=== PATIENT | male | born 1975 | race Caucasian/White ===

== ENCOUNTER 2025-03-11 12:21 | Emergency (ER) | payer MEDICARE, MEDICAID, SELFPAY ==
[2025-03-11 12:24] VITALS: BP 107/69; PULSE 98; RESP 18; TEMP 37.2; O2SAT 98
[2025-03-11 12:46] VITALS: PULSE 85; RESP 20; O2SAT 95
[2025-03-11 12:54] VITALS: BMI 28.8
--- NOTE | 2025-03-11 13:34 | XR_ITS ---
Examination: AP chest single view Technique one AP portable upright chest single view Exam date and time: March 11, 2025 1358 hours INDICATIONS: Coughing chest pain shortness of breath beginning 2 days ago. FINDINGS: Interval pneumonia right base compared with June 04, 2022 Mild prominence left ventricle Mild vascular congestion IMPRESSION: Significant right base pneumonia
--- NOTE | 2025-03-11 13:34 | EKG_ITS ---
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
--- NOTE | 2025-03-11 13:35 | PD.EDCHEST ---
ED Chest Pain RME/HPI General Chief Complaint: Chest Pain Stated Complaint: CHEST PAIN Time Seen by Provider: 03/11/25 13:20 Arrival date/time: 03/11/25 12:21 RME / HPI RME / HPI narrative: 49-year-old male patient with significant history of hypertension diabetes mellitus and end-stage renal disease came in for evaluation regarding substernal chest pain onset of symptoms since last night substernal chest pain, described as dull ache, severity moderate. Patient denies any cough denies any shortness of breath denies any vomiting denies any other complaints. Patient had dialysis today Related Data Home Medications ?Medication ?Instructions ?Recorded ?Confirmed insulin aspart U-100 100 unit/mL 12 unit subcut BID 01/10/23 06/26/23 (3 mL) subcutaneous pen (Novolog FlexPen U-100 Insulin aspart) cyclobenzaprine 10 mg tablet 10 mg PO HS 06/19/23 06/26/23 loperamide 2 mg capsule 2 mg PO Q6H PRN Diarrhea 06/19/23 06/26/23 ibuprofen 800 mg tablet 800 mg PO Q8H PRN Pain 06/26/23 06/26/23 Previous Rx's ?Medication ?Instructions ?Recorded apixaban 5 mg tablet (Eliquis) 5 mg PO BID #60 tabs 07/03/23 hydrocodone 5 mg-acetaminophen 325 1 tab PO Q6H PRN pain #14 tabs 07/03/23 mg tablet albuterol sulfate 90 mcg/actuation 2 inh inhalation Q8H PRN shortness 03/11/25 aerosol inhaler of breath or wheezing #8.5 grams amoxicillin 875 mg-potassium 1 tab PO BID #14 tabs 03/11/25 clavulanate 125 mg tablet azithromycin 250 mg tablet 250 mg PO QDAY 4 days #4 tabs 03/11/25 (Zithromax) Allergies Allergy/AdvReac Type Severity Reaction Status Date / Time No Known Allergies Allergy Verified 06/27/23 12:19 Review of Systems Review of Systems Narrative Review of Systems: Review of system reviewed and within normal limits except mentioned in HPI ED Exam Narrative Physical exam: VITAL SIGNS: Reviewed. GENERAL APPEARANCE: Alert and interactive, follows commands, no acute distress, HEAD AND FACE: Non-traumatic. ENT: PERRL, pink conjunctivitis, eyelid no trauma, Mucous membrane moist. NECK: Supple, nontender, no nuchal rigidity. CHEST: No tenderness, no crepitus, no paradoxical movement, no retractions. LUNGS: Clear, well ventilated, symmetric, no rales, no wheezing, no ronchi, no stridor, good breath sounds bilaterally. HEART: Regular rate, regular rhythm, no murmur, no gallops. ABDOMEN: Soft, positive bowel sounds, nondistended, no guarding, nontender, no rebound, no masses, RECTAL: Deferred. GENITAL: Deferred. NEUROLOGICAL: Gross motor function intact sensory function intact, Appropriate for age. MUSCULOSKELETAL: low back nontender, full range of motion. EXTREMITIES: Nontender, full range of motion. SKIN: Color pink, dry, no rash, no lacerations, no abrasions, no contusions. LYMPHATICS: Deferred. Course Quality Measures none Orders Category Date Time Status EKG (ED ONLY) *Do not use* NOW Care 03/11/25 13:35 Completed EKG (ED Only) Stat Exams 03/11/25 13:34 Draft XR chest 1V Stat Exams 03/11/25 13:34 Completed B-Type Natriuretic Peptide Stat Lab 03/11/25 13:43 Completed CBC Stat Lab 03/11/25 13:43 Completed Comprehensive Metabolic Panel Stat Lab 03/11/25 13:43 Completed Partial Thromboplastin Time Stat Lab 03/11/25 13:43 Completed Prothrombin Time with INR Stat Lab 03/11/25 13:43 Completed Troponin I Stat Lab 03/11/25 13:43 Completed Troponin I Stat Lab 03/11/25 16:13 Completed Azithromycin Inj [Zithromax Inj] 500 mg Med 03/11/25 16:17 Discontinued Sodium Chloride 0.9% 250 ml [Ns] 250 ml IV X1 HYDROcodone/APAP 10/325 [[place] 10/325] Med 03/11/25 13:34 Discontinued 1 tab PO X1 ONE cefTRIAXone/D5w 1gm IV premix [Rocephin/D5w 1gm IV Med 03/11/25 16:17 Discontinued premix] 1 gm in 50 ml IV X1 mg Hyd/Al Hyd/Man Susp [Maalox Susp] Med 03/11/25 13:34 Discontinued 30 ml PO X1 ONE Vital Signs Vital signs: Vital Signs Temperature 99.0 F 03/11/25 12:24 Pulse Rate 98 03/11/25 12:24 Respiratory Rate 18 03/11/25 12:24 Blood Pressure 107/69 03/11/25 12:24 Pulse Oximetry (%) 98 03/11/25 12:24 Oxygen Delivery Method Room Air 03/11/25 12:24 Chest Pain MDM Narrative MDM Narrative:: 49-year-old male patient with significant history of hypertension diabetes mellitus and end-stage renal disease came in for evaluation regarding substernal chest pain onset of symptoms since last night substernal chest pain, described as dull ache, severity moderate. Patient denies any cough denies any shortness of breath denies any vomiting denies any other complaints. Patient had dialysis today Patient's workup is significant for pneumonia on x-ray. Initial troponin was noted to be 0.27, after 3 hours repeat troponin went up to 0.29. Patient is not having any chest pain prior to discharge. EKG showed normal sinus rhythm, ventricular rate of 91 bpm, no ST segment elevation or depression noted Was given ceftriaxone IV and Zithromax IV. Patient appears nontoxic and hemodynamically stable. Patient discharged home and instructed to follow-up with primary care provider in 24 to 48 hours. Instructed to return to the emergency department immediately if worsening of symptoms Patient data External records reviewed:: None Clinical information provided by:: patient and family Social determinants that could affect healthcare access:: none Patient has the following chronic illnesses:: ESRD, hypertension, diabetes mellitus How is presenting disease/condition affected by chronic disease/condition?: exacerbated by Evaluation data The following diagnostics were reviewed and interpreted by me:: lab results, radiology exam(s) and EKG tracing(s) Lab and/or radiology exams considered but not ordered:: None Interpretation Summary: EKG showed sinus rhythm, ventricular rate of 91 bpm, no ST segment elevation or depression noted. Medications / Prescriptions Medications or Prescriptions considered but not ordered:: None Medication administrations:: Medication Administration History Discontinued Medications Hydrocodone Bitart/Acetaminophen (Hydrocodone/Apap 10/325 Tab) 1 tab PO X1 ONE Stop: 03/11/25 13:35 Last Admin: 03/11/25 13:39 Dose: 1 tab Documented By: NUPUR Al Hydrox/Mg Hydrox/Simethicone (Mg Hyd/Al Hyd/Man (Maalox Reg) Susp 30 Ml Udc) 30 ml PO X1 ONE Stop: 03/11/25 13:35 Last Admin: 03/11/25 13:39 Dose: 30 ml Documented By: NUPUR Azithromycin 500 mg/ Sodium (Chloride) 250 mls @ 250 mls/hr IV X1 ONE Stop: 03/11/25 17:16 Last Admin: 03/11/25 16:40 Dose: 250 mls/hr Documented By: NUPUR Ceftriaxone Sodium/Dextrose (Rocephin/D5w 1gm Iv Premix) 1 gm in 50 mls @ 100 mls/hr IV X1 ONE Stop: 03/11/25 16:46 Last Infusion: 03/11/25 17:28 Dose: Infused Documented By: Admin: 03/11/25 16:40 Dose: 100 mls/hr Documented By: Nate Stock Zithromax IV ceftriaxone IV Consultations Consultation(s) initiated? (list below): No Diagnosis Chest Pain Differential Diagnosis: pneumothorax and chest pain Most likely diagnosis given after review of the tests above:: Pneumonia, ESRD Admission Indicated Admission indicated?: not indicated Admission Request Was there a request for admission?: No Disposition Plan Disposition Plan: Discharge Discharge Attestation Discharge Attestation: The patient and all family members were given an opportunity to ask questions and understood the discharge instructions. Discharge instructions specifically effects, indications for sooner follow up or return to the emergency department, and the expected course of current diagnosis. Patient condition: Stable Discharge Plan Plan Patient Disposition: HOME (Self Care) Disposition Comment: Stable Prescriptions/Referrals Prescriptions/Med Rec: New amoxicillin-pot clavulanate 875-125 mg tablet 1 tab PO BID Qty: 14 0RF azithromycin [Zithromax] 250 mg tablet 250 mg PO QDAY 4 Days Qty: 4 0RF Rx Instructions: start on day 2 of therapy albuterol sulfate 90 mcg/actuation HFA aerosol inhaler 2 inh inhalation Q8H PRN (Reason: shortness of breath or wheezing) Qty: 8.5 0RF No Action insulin aspart U-100 [Novolog FlexPen U-100 Insulin] 100 unit/mL (3 mL) insulin pen 12 unit subcut BID cyclobenzaprine 10 mg tablet 10 mg PO HS loperamide 2 mg capsule 2 mg PO Q6H PRN (Reason: Diarrhea) Eliquis 5 mg tablet 5 mg PO BID Qty: 60 0RF Rx Instructions: Begin this prescription after completing the 10 mg prescription. hydrocodone-acetaminophen 5-325 mg tablet 1 tab PO Q6H MDD 4 PRN (Reason: pain) Qty: 14 0RF ibuprofen 800 mg Tablet 800 mg PO Q8H PRN (Reason: Pain) Referrals: Margarita Carolina PA-C [Primary Care Provider] - In 1 week Problem List Clinical Impression: End-stage renal disease (ESRD), Pneumonia Patient/Caregiver Discharge Instructions Discharge Activity: activity as tolerated Education Materials: Treating Pneumonia Additional Instructions: Thank you for the opportunity for serving you today. You are stable for discharged . You are advised to: Follow-up with your PCP in 1 to 2 days Return to ED for worsening of symptoms Take medication as prescribed Print Language: Turkmen Stand Alone Forms: Jenny Award Info., Patient Portal Info Letter
[2025-03-11] MEDS: MG HYD/AL HYD/SIME (Maalox Reg) SUSP 30 ML UDC PO (13:39)
[2025-03-11] MEDS: HYDROcodone/APAP 10/325 TAB PO (13:39)
[2025-03-11 14:12] LABS: Basophils % (Auto) 0 % (0-2.5); Eosinophils % (Auto) 0 % (0-10); Hematocrit 31.3 % (41.0-53.0); Hemoglobin 10.1 g/dL (13.5-16.0); Immature Granulocytes % (Auto) 2 % (0-0); Lymphocytes # (Auto) 0.3 Thou/mm3 (1.0-4.8); Lymphocytes % (Auto) 2 % (10-50); Mean Corpuscular HGB Conc 32.3 g/dl (31.0-37.0); Mean Corpuscular Hemoglobin 30.6 pg (25.0-35.0); Mean Corpuscular Volume 95 fL (80-100); Monocytes # (Auto) 0.7 Thou/mm3 (0.0-0.8); Monocytes % (Auto) 6 % (0-12); Neutrophils # (Auto) 10.9 Thou/mm3 (1.8-7.7); Neutrophils % (Auto) 90 % (37-80); Nucleated Red Blood Cell % 0 /100 WBC (0); Platelet Count 102 Thou/mm3 (140-440); RDW Standard Deviation 52.5 fL (35.1-43.9); White Blood Count 12.1 Thou/mm3 (3.8-10.6)
[2025-03-11 14:25] LABS: INR 1.3 (0.9-1.3); Partial Thromboplastin Time 36.6 Seconds (22.0-36.0); Prothrombin Time 13.5 Seconds (9.0-12.2)
[2025-03-11 14:34] LABS: Alanine Aminotransferase 12 U/L (10-49); Albumin, Serum 3.8 gm/dL (3.5-5.0); Albumin/Globulin Ratio 1.6 (1.2-2.2); Alkaline Phosphatase 124 U/L (46-116); Anion Gap 10 (7-16); Aspartate Amino Transferase 15 U/L (0-34); B-Type Natriuretic Peptide 926 pg/mL (0-100); BUN/Creatinine Ratio 7 Ratio (12-20); Bilirubin,Total 1.3 mg/dL (0.3-1.2); Blood Urea Nitrogen 40 mg/dL (9-23); Calcium 9.2 mg/dL (8.3-10.6); Calcium (Corrected) 9.4 mg/dL (8.5-10.1); Carbon Dioxide 25.8 mMol/L (20.0-31.0); Chloride 97 mMol/L (98-107); Creatinine (Component) 5.7 mg/dL (0.6-1.3); Estimated Creatinine Clearance 16.9 mL/min (>60); Globulin 2.4 gm/dL (2.3-3.5); Glucose 95 mg/dL (74-106); Osmolality,Calculated 276 (275-295); Potassium 4.1 mMol/L (3.4-5.1); Sodium 133 mMol/L (136-145); Total Protein 6.2 gm/dL (5.7-8.2); eGFR 11 See Note
[2025-03-11 14:38] LABS: Troponin I 0.278 ng/mL (0.0-0.045)
[2025-03-11 16:05] VITALS: BP 134/80; PULSE 85; RESP 15; TEMP 36.7; O2SAT 97
[2025-03-11] MEDS: cefTRIAXone/D5w 1gm IV premix 1 GM/50 ML BAG IV (16:40)
[2025-03-11] MEDS: AZITHROMYCIN INJ 500 MG in SODIUM CHLORIDE 0.9% 250 ML 250 ML 250 MG IV (16:40)
== END 2025-03-11 18:04 | disposition home or self-care (01) ==
PROVIDERS: Nurse Practitioner Family; Emergency Provider Emergency Medicine; PCP Physician Assistant
DX: J18.9 Pneumonia, unspecified organism (principal); I12.0 Hypertensive chronic kidney disease with stage 5 chronic kidney disease or end stage renal disease; E11.22 Type 2 diabetes mellitus with diabetic chronic kidney disease; N18.6 End stage renal disease; I49.1 Atrial premature depolarization; I45.89 Other specified conduction disorders; Z79.4 Long term (current) use of insulin
CPT/HCPCS: 36415; 71045; 80053; 83880; 84484; 85025; 85610; 85730; 93005; 99284; J0456; J0696; J7050; A9270

== ENCOUNTER 2025-03-14 14:09 | Inpatient (IN) | payer MEDICARE, MEDICAID, SELFPAY ==
[2025-03-14] VITALS (68 sets, daily range): BP systolic 0–200; BP diastolic 0–99; PULSE 66–188; RESP 16–34; TEMP 34.8–36.1; O2SAT 77–100; BMI 35.5
[2025-03-14] MEDS: DEXTROSE 50%-WATER INJ 50 ML SYRINGE IV ×5 (14:22→16:17)
[2025-03-14] MEDS: MIDAZOLAM INJ 1 MG/ML VIAL 2 ML 2 MG IV (14:24)
[2025-03-14] MEDS: MORPHINE SULF INJ 10 MG/ML VIAL 4 MG IVP (14:24)
[2025-03-14] MEDS: ONDANSETRON INJ 2 MG/ML INJ 2 ML 4 MG IV (14:26)
--- NOTE | 2025-03-14 14:27 | PC.NURSE ---
SVT 198HR ON [employer], PT WAS CARDIOVERTED @100J, IN WHICH HER CONVERTED TO 80HR AND THEN CONVERTED BACK TO 163, DR. HOLDEN AT BEDSIDE, NEW ORDERS GIVEN
[2025-03-14] MEDS: Sodium Bicarb Inj 8.4% SYR 50 ML SYRINGE IV (14:34)
--- NOTE | 2025-03-14 14:34 | PD.EDAMS ---
Altered Mental Status RME/HPI General Chief Complaint: Altered Mental Status Stated Complaint: STAT Time Seen by Provider: 03/14/25 14:56 Arrival date/time: 03/14/25 14:09 Limitations: altered mental status RME / HPI RME / HPI narrative: DR. HOLDEN MAIN ED EVALUATION: 49 year old male with past medical history significant for end-stage renal disease, hypertension, and diabetes mellitus presents to the Emergency Department [facility] from home with complaint of altered mental status, as a STAT patient. Patient was seen immediately at arrival at 1408 hours. Per EMS, patient was cyanotic at scene and in respiratory distress, with a blood pressure of 90/68. Per EMS, patient was in SVT and after they shocked the patient, patient converted sinus 70 on the monitor. Here at 1415 hours, blood glucose was low then after D50 at 1430 hours the blood glucose was 23. Per EMS, patient was seen by EMS yesterday and was in the same SVT rhythm but refused transport to the hospital; probably in SVT since yesterday at least. Related Data Home Medications ?Medication ?Instructions ?Recorded ?Confirmed insulin aspart U-100 100 unit/mL 12 unit subcut BID 01/10/23 06/26/23 (3 mL) subcutaneous pen (Novolog FlexPen U-100 Insulin aspart) cyclobenzaprine 10 mg tablet 10 mg PO HS 06/19/23 06/26/23 loperamide 2 mg capsule 2 mg PO Q6H PRN Diarrhea 06/19/23 06/26/23 ibuprofen 800 mg tablet 800 mg PO Q8H PRN Pain 06/26/23 06/26/23 Previous Rx's ?Medication ?Instructions ?Recorded apixaban 5 mg tablet (Eliquis) 5 mg PO BID #60 tabs 07/03/23 hydrocodone 5 mg-acetaminophen 325 1 tab PO Q6H PRN pain #14 tabs 07/03/23 mg tablet albuterol sulfate 90 mcg/actuation 2 inh inhalation Q8H PRN shortness 03/11/25 aerosol inhaler of breath or wheezing #8.5 grams amoxicillin 875 mg-potassium 1 tab PO BID #14 tabs 03/11/25 clavulanate 125 mg tablet azithromycin 250 mg tablet 250 mg PO QDAY 4 days #4 tabs 03/11/25 (Zithromax) Allergies Allergy/AdvReac Type Severity Reaction Status Date / Time No Known Allergies Allergy Verified 06/27/23 12:19 Review of Systems Review of Systems ROS Unobtainable: unobtainable due to mental status and unobtainable due to medical condition Past Medical History Past Medical History CARDIAC: Positive Hypertension GASTROINTESTINAL: Positive Gastrointestinal Disorders and Obesity GENITOURINARY: Positive Renal Disease and Dialysis (MF) MUSCULOSKELETAL: Positive Musculoskeletal Disorders and Degenerative Disk Disease ENDOCRINE: Positive Endocrine Disorders and Diabetes Mellitus Type 2 PSYCHO/SOCIAL: Positive Recreational Drug Use (MJ) OTHER HISTORY: Positive Hospitalization (amputation R BKA), Blood Transfusions and Chicken Pox Family History FAMILY HISTORY: Positive Family Cancer Surgical History SURGICAL: Positive Amputation (R BKA) Social History SMOKING STATUS: Never smoker SECOND HAND EXPOSURE: No SUBSTANCE USE: marijuana ALCOHOL: Never ED Exam General Limitations: Present altered mental status General appearance: Present other (obtunded) Head Head exam: Present atraumatic and normocephalic Eye Eye exam: Present normal appearance, PERRL and EOMI ENT ENT exam: Present normal exam, normal oropharynx and mucous membranes moist Neck Neck exam: Present normal inspection and trachea midline Chest Chest inspection: Present normal inspection and symmetric chest wall rise Respiratory Respiratory exam: Present normal lung sounds bilaterally Cardiovascular Cardiovascular exam: Present other (Tachycardic, irregularly irregular, no S3.) Abdominal Exam Abdominal exam: Present soft, normal bowel sounds and other (obese abdomen) Extremities Exam Extremities exam: Present other (Right BKA) Back Exam Back exam: Present normal inspection Neurological Exam Neurological exam: Present other (obtunded) Skin Skin exam: Present warm, dry, intact and normal color Course Quality Measures none Orders Category Date Time Status 24 HR Medical Restraints Q2HR Care 03/14/25 16:22 Active EKG (ED ONLY) *Do not use* NOW Care 03/14/25 14:20 Completed Garcia [Urinary Catheter] X1 Care 03/14/25 14:42 Active Insert IV NOW Care 03/14/25 14:20 Active Insert NG / OG tube NOW Care 03/14/25 15:35 Active Intubation NOW Care 03/14/25 15:43 Completed EKG (ED Only) Stat Exams 03/14/25 14:20 Ordered XR chest 1V post procedure Stat Exams 03/14/25 15:34 Completed A1C [Glycohemoglobin w (eAG)] Stat Lab 03/14/25 14:32 Completed ABG [Arterial Blood Gas] Stat Lab 03/14/25 14:44 Completed Arterial Blood Gas Stat Lab 03/14/25 16:44 Completed Blood Culture (Lab) Stat Lab 03/14/25 15:14 Received CBC [CBC] Stat Lab 03/14/25 14:32 Completed CMP [Comprehensive Metabolic Panel] Stat Lab 03/14/25 14:15 Results Drug Screen,Urine Stat Lab 03/14/25 16:12 Received Lactate (Lactic Acid) Stat Lab 03/14/25 16:34 Results Magnesium Stat Lab 03/14/25 14:15 Results Procalcitonin Stat Lab 03/14/25 16:34 Received Sputum Culture and Gram Stain Stat Lab 03/14/25 15:43 Ordered Troponin I Stat Lab 03/14/25 14:15 Results Type and Screen Stat Lab 03/14/25 14:32 Received Urinalysis Stat Lab 03/14/25 16:12 Received Urine Culture Stat Lab 03/14/25 16:12 Received ALBUTEROL RT 0.5ml [Proventil Rt 0.5ml] Med 03/14/25 18:00 Active 2.5 mg INH 5 TIMES DAILY ALBUTEROL RT 3ml [Proventil Rt 3ml] Med 03/14/25 18:00 Discontinued 2.5 mg INH 5 TIMES DAILY Azithromycin Inj [Zithromax Inj] 500 mg Med 03/14/25 16:09 Active Sodium Chloride 0.9% 250 ml [Ns] 250 ml IV X1 DILTIAZEM in D5W 125 MG Med 03/14/25 14:28 Active 125 mg in 125 ml IV 5 mg/hr Dextrose 10%-Water 1000 ml [D10w 1000 ml] 250 ml Med 03/14/25 14:55 Discontinued IV Q15M Dextrose 10%-Water [D10w] 500 ml Med 03/14/25 15:00 Active IV 150 mls/hr Dextrose 50% Syr [D50w Syringe Abboject] Med 03/14/25 15:22 Discontinued 100 ml IV X1 ONE Dextrose 50% Syr [D50w Syringe Abboject] Med 03/14/25 14:19 Discontinued 50 ml IV .STK-MED ONE Dextrose 50% Syr [D50w Syringe Abboject] Med 03/14/25 14:18 Discontinued 50 ml IV X1 ONE Dextrose 50% Syr [D50w Syringe Abboject] Med 03/14/25 14:19 Discontinued 50 ml IV X1 ONE Dextrose 50% Syr [D50w Syringe Abboject] Med 03/14/25 14:29 Discontinued 50 ml IV X1 ONE Dextrose 50% Syr [D50w Syringe Abboject] Med 03/14/25 14:52 Discontinued 50 ml IV X1 ONE Dextrose 50% Syr [D50w Syringe Abboject] Med 03/14/25 16:16 Discontinued 50 ml IV X1 ONE Diltiazem Inj [Cardizem Inj] Med 03/14/25 14:27 Discontinued 20 mg IV X1 ONE Etomidate Inj [Amidate Inj] Med 03/14/25 15:23 Discontinued 20 mg .ROUTE .STK-MED ONE Etomidate Inj [Amidate Inj] Med 03/14/25 15:20 Discontinued 20 mg IVP X1 ONE Midazolam Inj [Versed Inj] Med 03/14/25 14:16 Discontinued 2 mg IV X1 ONE Morphine Inj Med 03/14/25 14:16 Discontinued 4 mg IVP X1 ONE Ondansetron Inj [Zofran Inj] Med 03/14/25 14:16 Discontinued 4 mg IV X1 ONE Rocuronium Inj [Zemuron Inj] Med 03/14/25 15:23 Discontinued 100 mg .ROUTE .STK-MED ONE Rocuronium Inj [Zemuron Inj] Med 03/14/25 15:20 Discontinued 60 mg IVP X1 ONE Sodium Bicarb 8.4% SYR Med 03/14/25 14:20 Discontinued 50 ml IV X1 ONE cefTRIAXone [Rocephin] 2 gm Med 03/14/25 16:08 Discontinued SODIUM CHLORIDE 0.9% (Popper) [Ns 0.9% (P)] 50 ml IV X1 Volume Ventilator Stat RT 03/14/25 15:43 Active Reevaluation(s) Reevaluation #1: Discussed about patient being DNR, she is unsure about his wishes. More family is going to come and for now she agreed to intubate. Time: 15:29 Vital Signs Vital signs: Vital Signs Pulse Rate 160 H 03/14/25 14:31 Respiratory Rate 16 03/14/25 14:31 Blood Pressure 66/33 L 03/14/25 14:31 Pulse Oximetry (%) 95 03/14/25 14:31 Oxygen Delivery Method Oxy Mask 03/14/25 14:31 Oxygen Flow Rate 15 03/14/25 14:31 Procedures -ED Procedure Comment Patient was shocked here at 120 V at 1426 hours and converted with a rate of 80 but it only lasted a few seconds and then went back to the rate in the 160's. Intubation Time out performed: Yes sedative: Etomidate Mg Given: 20 paralytic: Rocuronium Mg Given: 60 Laryngoscope: fiber optic video scope Assist Device Used: fiber optic device ET Tube Size: 7.5 Tube Secured Depth (cm): 24 Tube Secured Location: lips Tube Placement Confirmation: visualized tube passing through cords, equal breath sounds bilaterally, no breath sounds over epigastrium and confirmation by capnometry Patient Tolerated Procedure: well and no complications Intubation Complications: none Additional Comments: CXR ordered Altered Mental Status MDM Narrative MDM Narrative:: I, Kimberly Lira am scribing for and in the presence of Dr. Holden. Patient data External records reviewed:: EMS form Clinical information provided by:: EMS Social determinants that could affect healthcare access:: none Patient has the following chronic illnesses:: End-stage renal disease, hypertension, and diabetes mellitus. How is presenting disease/condition affected by chronic disease/condition?: exacerbated by Evaluation data The following diagnostics were reviewed and interpreted by me:: lab results, radiology exam(s) and EKG tracing(s) Lab and/or radiology exams considered but not ordered:: none Interpretation Summary: EKG#1: EKG at 1414 hours. Interpreted by me: sinus tachycardia, rate 194, uncertain rhythm SVT vs atrial fibrillation, possible RVH EKG#2: EKG at 1431 hours. Interpreted by me: atrial fibrillation with RVR, rate 171, intraventricular conduction delay EKG#3: EKG at 1436 hours, after Diltiazem. Interpreted by me: sinus rhythm, rate 97, right bundle branch block, moderate T wave abnormality consider inferior and lateral ischemia, CA interval 192 ms, QRS 126 ms, QT/QTc 383/438, P-R-T axis -63, 97, and 224 RADIOLOGY Procedure(s): XR chest 1V post procedure Accession Number(s): [id number] cc: Margarita Carolina; yKle Holden MD; Uli Chen MD~ Examination: AP chest single view Technique: AP portable upright chest single view Exam date and time: March 14, 2025 1537 hrs. Comparison March 11, 2020 Indications: Hypoxic respiratory failure today, postintubation Findings: Moderate enlargement cardiac contour Tracheal tube tip 4.8 cm above marco. The orogastric tube is in the stomach, the tip below the level film Suspicious for atelectasis and/or pneumonia at the right lung base Prominent vascular congestion Impression: Tracheal tube tip 4.8 cm above marco Suspicious for atelectasis and/or pneumonia at the right lung base Dictated By: Uli Chen MD Medications / Prescriptions Medications or Prescriptions considered but not ordered:: none Medication administrations:: Medication Administration History Albuterol (Albuterol Rt 2.5 Mg/0.5 Ml Nebu) 2.5 mg INH 5 TIMES DAILY [place] Stop: 04/13/25 17:59 Diltiazem HCl (Diltiazem In D5w 125 Mg) 125 mg in 125 mls @ 5 mls/hr IV .Q24H [place]; Protocol Stop: 04/13/25 14:27 Last Admin: 03/14/25 14:43 Dose: 5 mg/hr, 5 mls/hr Documented By: VALENTÍN Dextrose (D10w) 500 mls @ 150 mls/hr IV .Q3H20M [place] Stop: 04/13/25 14:59 Last Infusion: 03/14/25 16:00 Dose: 200 mls/hr Documented By: OFELIA Co-signed By: JONATHAN Admin: 03/14/25 15:00 Dose: 150 mls/hr Documented By: VALENTÍN Co-signed By: OFELIA Azithromycin 500 mg/ Sodium (Chloride) 250 mls @ 250 mls/hr IV X1 ONE Stop: 03/14/25 17:08 Last Admin: 03/14/25 16:50 Dose: 250 mls/hr Documented By: OFELIA Discontinued Medications Albuterol (Albuterol Rt 2.5 Mg/3 Ml Nebu) 2.5 mg INH 5 TIMES DAILY [place] Stop: 04/13/25 17:59 Dextrose (Dextrose 50%-Water Inj 50 Ml Syringe) 50 ml IV X1 ONE Stop: 03/14/25 14:19 Last Admin: 03/14/25 14:22 Dose: 50 ml Documented By: VALENTÍN Dextrose (Dextrose 50%-Water Inj 50 Ml Syringe) 50 ml IV X1 ONE Stop: 03/14/25 14:20 Last Admin: 03/14/25 14:22 Dose: 50 ml Documented By: VALENTÍN Dextrose (Dextrose 50%-Water Inj 50 Ml Syringe) Confirm Administered Dose 50 ml IV .STK-MED ONE Stop: 03/14/25 14:20 Last Admin: 03/14/25 14:25 Dose: Not Given Documented By: VALENTÍN Non-Admin Reason: Duplicate Medication on eMAR Dextrose (Dextrose 50%-Water Inj 50 Ml Syringe) 50 ml IV X1 ONE Stop: 03/14/25 14:30 Last Admin: 03/14/25 14:32 Dose: 50 ml Documented By: VALENTÍN Dextrose (Dextrose 50%-Water Inj 50 Ml Syringe) 50 ml IV X1 ONE Stop: 03/14/25 14:53 Last Admin: 03/14/25 14:54 Dose: 50 ml Documented By: VALENTÍN Dextrose (Dextrose 50%-Water Inj 50 Ml Syringe) 100 ml IV X1 ONE Stop: 03/14/25 15:23 Last Admin: 03/14/25 15:26 Dose: 100 ml Documented By: VALENTÍN Dextrose (Dextrose 50%-Water Inj 50 Ml Syringe) 50 ml IV X1 ONE Stop: 03/14/25 16:17 Last Admin: 03/14/25 16:17 Dose: 50 ml Documented By: OFELIA Diltiazem HCl (Diltiazem Inj 5 Mg/Ml Vial 5 Ml) 20 mg IV X1 ONE Stop: 03/14/25 14:28 Last Admin: 03/14/25 14:35 Dose: 20 mg Documented By: VALENTÍN Etomidate (Etomidate Inj 2 Mg/Ml Vial 10 Ml) 20 mg IVP X1 ONE Stop: 03/14/25 15:21 Last Admin: 03/14/25 15:30 Dose: 20 mg Documented By: OFELIA Etomidate (Etomidate Inj 2 Mg/Ml Vial 10 Ml) Confirm Administered Dose 20 mg .ROUTE .STK-MED ONE Stop: 03/14/25 15:24 Last Admin: 03/14/25 15:33 Dose: Not Given Documented By: OFELIA Non-Admin Reason: Duplicate Medication on eMAR Dextrose (D10w 1000 Ml) 250 mls @ 150 mls/hr IV Q15M PRN PRN Reason: HYPOGLYCEMIA Stop: 04/13/25 14:54 Ceftriaxone Sodium 2 gm/ (Sodium Chloride) 50 mls @ 100 mls/hr IV X1 ONE Stop: 03/14/25 16:37 Last Infusion: 03/14/25 16:49 Dose: Infused Documented By: Admin: 03/14/25 16:19 Dose: 100 mls/hr Documented By: OFELIA Midazolam HCl (Midazolam Inj 1 Mg/Ml Vial 2 Ml) 2 mg IV X1 ONE Stop: 03/14/25 14:17 Last Admin: 03/14/25 14:24 Dose: 2 mg Documented By: VALENTÍN Morphine Sulfate (Morphine Sulf Inj 10 Mg/Ml Vial) 4 mg IVP X1 ONE Stop: 03/14/25 14:17 Last Admin: 03/14/25 14:24 Dose: 4 mg Documented By: VALENTÍN Comments: MED GIVEN FOR SHOCK SVT Ondansetron HCl (Ondansetron Inj 2 Mg/Ml Inj 2 Ml) 4 mg IV X1 ONE; Protocol Stop: 03/14/25 14:17 Last Admin: 03/14/25 14:26 Dose: 4 mg Documented By: VALENTÍN Rocuronium [place] (Rocuronium Inj 10 Mg/Ml Vial 10 Ml) 60 mg IVP X1 ONE Stop: 03/14/25 15:21 Last Admin: 03/14/25 15:32 Dose: 60 mg Documented By: OFELIA Co-signed By: VALENTÍN Rocuronium [place] (Rocuronium Inj 10 Mg/Ml Vial 10 Ml) Confirm Administered Dose 100 mg .ROUTE .STK-MED ONE Stop: 03/14/25 15:24 Last Admin: 03/14/25 15:33 Dose: Not Given Documented By: OFELIA Non-Admin Reason: Duplicate Medication on eMAR Sodium Bicarbonate (Sodium Bicarb Inj 8.4% Syr 50 Ml Syringe) 50 ml IV X1 ONE Stop: 03/14/25 14:21 Last Admin: 03/14/25 14:34 Dose: 50 ml Documented By: VALENTÍN see above Consultations Consultation(s) initiated? (list below): Yes Consultation #1 (Physician, Specialty, Details): Discussed test HPI, PMHx, lab, radiology results and/or management with supervisor roving department Dr. Putnam. Will admit for further evaluation and management. Accepts patient for admission. Time: 16:40 Diagnosis Differential diagnosis altered mental status: altered mental status, hypoglycemia and sepsis Most likely diagnosis given after review of the tests above:: Cardiac dysrhythmia Rapid atrial fibrillation Respiratory failure Sepsis Pneumonia Leukocytosis Profound hypoglycemia CHF Admission Indicated Admission indicated?: indicated Admission Request Was there a request for admission?: Yes Admission Attestation Admission request attestation: Discussed case with [] from Hospitalist service regarding admission. Discussed patients ED course, exam findings, labs, and radiology results. The Hospitalist [agrees,declines] to accept the patient for admission. Disposition Plan Disposition Plan: Admit (ICU) Critical Care Time Critical Care Time Critical Care Time: Yes Total Critical Care Time (min.): 120 Attestation: The high probability of sudden, clinically significant deterioration in the patient?s condition required the highest level of my preparedness to intervene urgently. The services I provided to this patient were to treat and/or prevent clinically significant deterioration. Services included the following: chart data review, reviewing nursing notes and/or old charts, documentation time, insolvency consultant collaboration regarding findings and treatment options, medication orders and management, direct patient care, vital sign assessments and ordering, interpreting and reviewing diagnostic studies and lab tests. Aggregate critical care time includes only time during which I was engaged in work directly related to the patient?s care, as described above, whether at bedside or elsewhere in the Emergency Department. It did not include time spent performing other reported procedures or the services of residents, students, nurses or physician assistants. Discharge Plan Plan Patient Disposition: Admit Acute Care w/in Hospital Disposition Comment: ICU Prescriptions/Referrals Prescriptions/Med Rec: No Action insulin aspart U-100 [Novolog FlexPen U-100 Insulin] 100 unit/mL (3 mL) insulin pen 12 unit subcut BID cyclobenzaprine 10 mg tablet 10 mg PO HS loperamide 2 mg capsule 2 mg PO Q6H PRN (Reason: Diarrhea) Eliquis 5 mg tablet 5 mg PO BID Qty: 60 0RF Rx Instructions: Begin this prescription after completing the 10 mg prescription. hydrocodone-acetaminophen 5-325 mg tablet 1 tab PO Q6H MDD 4 PRN (Reason: pain) Qty: 14 0RF ibuprofen 800 mg Tablet 800 mg PO Q8H PRN (Reason: Pain) amoxicillin-pot clavulanate 875-125 mg tablet 1 tab PO BID Qty: 14 0RF azithromycin [Zithromax] 250 mg tablet 250 mg PO QDAY 4 Days Qty: 4 0RF Rx Instructions: start on day 2 of therapy albuterol sulfate 90 mcg/actuation HFA aerosol inhaler 2 inh inhalation Q8H PRN (Reason: shortness of breath or wheezing) Qty: 8.5 0RF Referrals: Margarita Carolina PA-C [Primary Care Provider] - In 1 week Problem List Clinical Impression: Cardiac dysrhythmia, Pneumonia, Hypoglycemia, Sepsis, Rapid atrial fibrillation, Respiratory failure, Leukocytosis, CHF (congestive heart failure) Patient/Caregiver Discharge Instructions Print Language: Ugandan Stand Alone Forms: Jenny Award Info., Patient Portal Info Letter
[2025-03-14] MEDS: DILTIAZEM INJ 5 MG/ML VIAL 5 ML 20 MG IV (14:35)
[2025-03-14] MEDS: DILTIAZEM in D5W 125 MG 125 MG/125 ML BAG IV (14:43)
[2025-03-14 14:48] LABS: Base Excess -19 (-3-3); HCO3 11 mEq/L (20-26); Inspired Oxygen, FIO2 21 %; O2 Saturation 91 % (91-98); PCO2 43 mmHg (32.0-48.0); PO2 86 mmHg (83-108)
[2025-03-14 14:51] LABS: Allen Test Performed/OK; Puncture Site Left Brachial; pH, Arterial 7.03 (7.35-7.45)
[2025-03-14 14:58] LABS: Basophils % (Auto) 0 % (0-2.5); Eosinophils % (Auto) 23 % (0-10); Hematocrit 40.2 % (41.0-53.0); Hemoglobin 11.9 g/dL (13.5-16.0); Immature Granulocytes % (Auto) 6 % (0-0); Immature Granulocytes Auto 1.85 Thou/mm3 (0.00-0.00); Lymphocytes # (Auto) 0.8 Thou/mm3 (1.0-4.8); Lymphocytes % (Auto) 3 % (10-50); Mean Corpuscular HGB Conc 29.6 g/dl (31.0-37.0); Mean Corpuscular Hemoglobin 30.6 pg (25.0-35.0); Mean Corpuscular Volume 103 fL (80-100); Monocytes # (Auto) 1.4 Thou/mm3 (0.0-0.8); Monocytes % (Auto) 5 % (0-12); Neutrophils # (Auto) 18.9 Thou/mm3 (1.8-7.7); Neutrophils % (Auto) 63 % (37-80); Nucleated Red Blood Cell # 0.03 Thou/mm3 (0.00-0.00); Nucleated Red Blood Cell % 0 /100 WBC (0); Platelet Count 131 Thou/mm3 (140-440); RDW Standard Deviation 59.9 fL (35.1-43.9); Red Blood Count 3.89 Miln/mm3 (4.50-5.90); White Blood Count 29.9 Thou/mm3 (3.8-10.6)
[2025-03-14] MEDS: DEXTROSE 10%-WATER 500 ML 150 ML IV (15:00)
[2025-03-14 15:19] LABS: Glucose Estimated Average 103 mg/dL (80-131); Hemoglobin A1C 5.2 % Hgb (4.8-6.0)
[2025-03-14] MEDS: DEXTROSE 50%-WATER INJ 50 ML SYRINGE 100 ML IV (15:26)
[2025-03-14] MEDS: ETOMIDATE INJ 2 MG/ML VIAL 10 ML 20 MG IVP (15:30)
[2025-03-14] MEDS: ROCURONIUM INJ 10 MG/ML VIAL 10 ML 60 MG IVP (15:32)
--- NOTE | 2025-03-14 15:34 | XR_ITS ---
Examination: AP chest single view Technique: AP portable upright chest single view Exam date and time: March 14, 2025 1537 hrs. Comparison March 11, 2020 Indications: Hypoxic respiratory failure today, postintubation Findings: Moderate enlargement cardiac contour Tracheal tube tip 4.8 cm above marco. The orogastric tube is in the stomach, the tip below the level film Suspicious for atelectasis and/or pneumonia at the right lung base Prominent vascular congestion Impression: Tracheal tube tip 4.8 cm above marco Suspicious for atelectasis and/or pneumonia at the right lung base
[2025-03-14 15:54] LABS: Albumin, Serum 3.5 gm/dL (3.5-5.0); Albumin/Globulin Ratio 1.5 (1.2-2.2); Alkaline Phosphatase 216 U/L (46-116); Anion Gap 31 (7-16); BUN/Creatinine Ratio 11 Ratio (12-20); Bilirubin,Total 1.7 mg/dL (0.3-1.2); Blood Urea Nitrogen 82 mg/dL (9-23); Calcium 9.3 mg/dL (8.3-10.6); Calcium (Corrected) 9.7 mg/dL (8.5-10.1); Chloride 99 mMol/L (98-107); Creatinine (Component) 7.2 mg/dL (0.6-1.3); Estimated Creatinine Clearance 13.4 mL/min (>60); Globulin 2.4 gm/dL (2.3-3.5); Potassium 5.5 mMol/L (3.4-5.1); Sodium 140 mMol/L (136-145); Total Protein 5.9 gm/dL (5.7-8.2); eGFR 9 See Note
[2025-03-14 16:14] LABS: Carbon Dioxide 10.1 mMol/L (20.0-31.0)
[2025-03-14] MEDS: cefTRIAXone 2 GM in SODIUM CHLORIDE 0.9% (Popper) 50 ML IV (16:19)
[2025-03-14 16:43] LABS: Collection Type, Urine Catheter
[2025-03-14 16:49] LABS: Base Excess -17 (-3-3); HCO3 13 mEq/L (20-26); Inspired Oxygen, FIO2 21 %; O2 Saturation 97 % (91-98); PCO2 50 mmHg (32.0-48.0); PO2 128 mmHg (83-108)
[2025-03-14 16:50] LABS: Allen Test Performed/OK; Puncture Site Right Brachial; pH, Arterial 7.04 (7.35-7.45)
[2025-03-14] MEDS: AZITHROMYCIN INJ 500 MG in SODIUM CHLORIDE 0.9% 250 ML 250 ML 250 MG IV (16:50)
[2025-03-14 17:04] LABS: Osmolality,Calculated 299 (275-295)
--- NOTE | 2025-03-14 17:07 | PC.NURSE ---
DR. Bill PERSAUD AT BEDSIDE; PER DR. PERSAUD, PT A GCS OF 3 AT THIS TIME; DON'T START PT ON A SEDATION DRIPS AT THIS TIME IN ORDER TO ASSESS PT'S MENTATION.
[2025-03-14 17:10] LABS: Amphetamine/Methamp Scrn,U Positive (Negative); Barbiturate Screen,Urine Negative (Negative); Benzodiazepines Screen,Urine Negative (Negative); Benzoylecgonine Screen, Ur Negative (Negative); Fentanyl Screen,Urine Negative (Negative); Opiate Screen,Urine Positive (Negative); THC Screen,Urine Positive (Negative)
--- NOTE | 2025-03-14 17:12 | PC.NURSE ---
DR. Bill PERSAUD & DR. WRIGHT FROM ICU TEAM MADE AWARE OF PT'S COFFEE GROUND DARK COLOR GASTRIC CONTENTS THAT'S SUCTIONED FROM PT'S OG TUBE AT THIS TIME.
[2025-03-14 17:13] LABS: Amorphous Crystals,Urine Present (Absent); Bilirubin,Urine Negative (Negative); Blood,Urine 2+ (Negative); Clarity,Urine Turbid (Clear/Hazy); Color,Urine Yellow (Lt Yel-Yel); Glucose, Urine 3+ (Negative); Ketones,Urine Negative (Negative); Leukocyte Esterase,Urine Positive (Negative); Nitrite,Urine Negative (Negative); PH,Urine 6.5 (5.0-7.0); Protein,Urine 3+ (Neg - Trace); RBC,Urine 12 /hpf (0-3); Specific Gravity,Urine 1.026 (1.001-1.035); Squamous Epithelial Cell,Urine 9 /hpf (0-5); Transitional Epi Cells,Urine 7 /hpf (0-5); Urobilinogen,Urine Negative mg/dL (0.0-1.0); WBC,Urine 36 /hpf (0-5)
[2025-03-14 17:21] LABS: Troponin I 1.856 ng/mL (0.0-0.045)
[2025-03-14 17:25] LABS: Band Neutrophils (Manual) 1 % (0-6); Eosinophils (Manual) 1 % (0-4); Lymphocytes (Manual) 3 % (20-44); Monocytes (Manual) 11 % (2-9); Myelocytes (Manual) 1 % (0-0); Neutrophils (Manual) 83 % (50-70)
[2025-03-14 17:34] LABS: Procalcitonin 6.13 ng/ml (0.0-0.49)
--- NOTE | 2025-03-14 18:02 | PD.RESHP ---
Documentation for date of: 03/14/25 HPI History of Present Illness Chief complaint: AMS History of present illness: 49-year-old male with past medical history of DM2, hypertension, ESRD (HD ), HFpEF (EF 55% on 2021), and right BKA due to osteomyelitis was admitted to the ICU on 03/14/2025 after coming to the ED via ambulance due to altered mental status. Given patient's mental status and being intubated most of the history was taken from chart review and from patient's who was at bedside. Patient's stated that he was in the ER around 3 days ago due to some substernal chest pain and shortness of breath, but he was discharged with some antibiotics that he was told he had some pneumonia. She mentioned that yesterday in the evening he again had some shortness of breath and was kind of confused, but he did not want to come into the hospital at this time. Today in the morning she states that he was less responsive and that he was more cyanotic. At this time she decided to call EMS who brought the patient to the ED. As per chart review patient was in SVT when EMS arrived therefore he was shocked once and he converted to sinus rhythm. He was also noticed to be very hypoglycemic when he came into the ED with a blood glucose of around 23 therefore he was given multiple amps of D50. ED physician started patient on diltiazem drip. Of note, patient's states that this week he had to get more sessions of hemodialysis as he had increased a lot in weight. She mentioned that the last hemodialysis was on Saturday. She also mentioned that they are having a no recent changes on his medications and that he had not been using any medication for his diabetes. ED course: Initially came in hypotensive, tachycardic, and hypothermic. Initial labs were relevant for leukocytosis (29.9), anemia (Hgb 11.9), ABG (pH 7.04, pCO2 of 50, PO2 of 128), hyperkalemia (5.5), HAGMA (bicarb 10.1, AG 31), azotemia (BUN 82, creatinine 7.2), lactic acidosis (15), troponinemia (1.856), elevated procalcitonin (6.13), and U-Tox positive for meth and marijuana. Initial imaging included chest x-ray which showed some pneumonia of the right lung base. EKGs were not uploaded to the EMR. Patient had some coffee ground material suctioned from NG tube. Review of Systems Review of Systems ROS Unobtainable: unobtainable due to mental status and due to endotracheal tube Past Medical History Past Medical History CARDIAC: Positive Hypertension GASTROINTESTINAL: Positive Gastrointestinal Disorders and Obesity GENITOURINARY: Positive Renal Disease and Dialysis (MF) MUSCULOSKELETAL: Positive Musculoskeletal Disorders and Degenerative Disk Disease ENDOCRINE: Positive Endocrine Disorders and Diabetes Mellitus Type 2 PSYCHO/SOCIAL: Positive Recreational Drug Use (MJ) OTHER HISTORY: Positive Hospitalization (amputation R BKA), Blood Transfusions and Chicken Pox Family History FAMILY HISTORY: Positive Family Cancer Surgical History SURGICAL: Positive Amputation (R BKA) Social History SMOKING STATUS: Never smoker SECOND HAND EXPOSURE: No SUBSTANCE USE: marijuana ALCOHOL: Never Exam Vital Signs Temp Pulse Resp BP Pulse Ox O2 Del Method O2 Flow Rate 94.6 F L 100 18 94/66 100 Mechanical Ventilation 50 03/14/25 16:10 03/14/25 17:39 03/14/25 17:39 03/14/25 17:39 03/14/25 17:39 03/14/25 17:39 03/14/25 16:09 FiO2 100 03/14/25 16:09 Narrative Exam General: Mechanically ventilated, responsive to pain unable to move lower extremities Eyes: Pupils reactive to light, anicteric. Ears: No visible ear discharge Nose: No visible nasal discharge. Mouth/Throat: Moist mucous membranes, no redness, no lesions, coffee-ground material from NG tube. Neck: Neck supple, no cervical lymphadenopathy. Lungs: Clear CHRISTIANO in upper lobes, but decreased in lower lobes Cardio: Normal S1/S2, tachycardic no murmurs, no JVD Abdomen: Soft, non-tender, no palpable masses, peristalsis present, no guarding or rebound, swollen in the lower abdomen and some mild ascites. Extremities: Right BKA with cyanotic changes at the stump, left lower extremity swollen all the way up to the mid thigh 2+, cyanotic changes of the left toes Skin: Cold extremities Neuro: Responsive to pain, moving all extremities, mechanically ventilated Results: Labs 03/14/25 14:32 03/14/25 14:15 Labs: Short CBC 03/14/25 Range/Units 14:32 WBC 29.9 H D (3.8-10.6) Thou/mm3 Hgb 11.9 L (13.5-16.0) g/dL Hct 40.2 L (41.0-53.0) % Plt Count 131 L D (140-440) Thou/mm3 BMP 03/14/25 14:15 Sodium 140 Potassium 5.5 H Chloride 99 Carbon Dioxide 10.1 L* BUN 82 H Creatinine 7.2 H* D Calcium 9.3 Cardiac Enzymes 03/14/25 03/14/25 Range/Units 14:15 14:32 Troponin I 1.856 H* Cancelled (0.0-0.045) ng/mL Liver Function 03/14/25 Range/Units 14:15 Total Bilirubin 1.7 H (0.3-1.2) mg/dL Alkaline Phosphatase 216 H (46-116) U/L Albumin 3.5 (3.5-5.0) gm/dL Urine 03/14/25 Range/Units 16:12 Urine Color Yellow (Lt Yel-Yel) Urine Clarity Turbid A (Clear/Hazy) Urine pH 6.5 (5.0-7.0) Ur Specific [place] 1.026 (1.001-1.035) Urine Protein 3+ A (Neg - Trace) Urine Glucose (UA) 3+ A (Negative) ABG Interpretation ABG results: 03/14/25 03/14/25 14:44 16:44 ABG pH 7.03 L* 7.04 L* ABG pCO2 43 50 H ABG pO2 86 128 H D ABG HCO3 11 L 13 L ABG O2 Saturation 91 97 ABG Base Excess -19 L -17 L Quality Measures Quality Measures none Medications Home Medications and Allergies Home Medications ?Medication ?Instructions ?Recorded ?Confirmed ?Type insulin aspart U-100 100 unit/mL 12 unit subcut BID 01/10/23 06/26/23 History (3 mL) subcutaneous pen (Novolog FlexPen U-100 Insulin aspart) cyclobenzaprine 10 mg tablet 10 mg PO HS 06/19/23 06/26/23 History loperamide 2 mg capsule 2 mg PO Q6H PRN Diarrhea 06/19/23 06/26/23 History ibuprofen 800 mg tablet 800 mg PO Q8H PRN Pain 06/26/23 06/26/23 History Allergies Allergy/AdvReac Type Severity Reaction Status Date / Time No Known Allergies Allergy Verified 06/27/23 12:19 Visit Medications Acetaminophen (Acetaminophen Supp 650 Mg Supp) 650 mg NC Q6HR PRN PRN Reason: [id number] Stop: 04/13/25 17:30 Albuterol (Albuterol Rt 2.5 Mg/0.5 Ml Nebu) 2.5 mg INH 5 TIMES DAILY [place] Stop: 04/13/25 17:59 Dextrose (Dextrose 50%-Water Inj 50 Ml Syringe) 25 ml IV Q15MIN PRN PRN Reason: BG 50-70 responsive npo pt Stop: 04/13/25 17:35 Dextrose (Dextrose 50%-Water Inj 50 Ml Syringe) 50 ml IV Q15MIN PRN PRN Reason: BG <50 OR BG <70 & pt unresponsive Stop: 04/13/25 17:35 Glucagon (Glucagon Inj 1 Mg Vial) 1 mg IM Q15MIN PRN PRN Reason: BG <70, and no IV access Diltiazem HCl (Diltiazem In D5w 125 Mg) 125 mg in 125 mls @ 5 mls/hr IV .Q24H [place]; Protocol Stop: 04/13/25 14:27 Last Admin: 03/14/25 14:43 Dose: 5 mg/hr, 5 mls/hr Dextrose (D10w) 500 mls @ 150 mls/hr IV .Q3H20M [place] Stop: 04/13/25 14:59 Last Infusion: 03/14/25 16:00 Dose: 200 mls/hr Piperacillin Sod/Tazobactam (Sod 4.5 gm/ Sodium Chloride) 100 mls @ 200 mls/hr IV Q12H [place] Stop: 03/21/25 17:44 Lactated Ringer's (Lactated Ringers) 1,000 mls @ 999 mls/hr IV .Q1H1M ONE Stop: 03/14/25 18:54 Ondansetron HCl (Ondansetron Inj 2 Mg/Ml Inj 2 Ml) 4 mg IV Q6H PRN; Protocol PRN Reason: NAUSEA OR VOMITING Stop: 04/13/25 17:30 Pantoprazole Sodium (Pantoprazole Inj 40 Mg Vial) 40 mg IVP BID [place] Stop: 04/13/25 20:59 Pharmacy Consult (Vancomycin Pharmacy To Dose 1 Each Each) 1 each IV QDAY [place] Stop: 04/13/25 17:44 Discontinued Medications Albuterol (Albuterol Rt 2.5 Mg/3 Ml Nebu) 2.5 mg INH 5 TIMES DAILY [facility] Stop: 04/13/25 17:59 Dextrose (Dextrose 50%-Water Inj 50 Ml Syringe) 50 ml IV X1 ONE Stop: 03/14/25 14:19 Last Admin: 03/14/25 14:22 Dose: 50 ml Dextrose (Dextrose 50%-Water Inj 50 Ml Syringe) 50 ml IV X1 ONE Stop: 03/14/25 14:20 Last Admin: 03/14/25 14:22 Dose: 50 ml Dextrose (Dextrose 50%-Water Inj 50 Ml Syringe) 50 ml IV X1 ONE Stop: 03/14/25 14:30 Last Admin: 03/14/25 14:32 Dose: 50 ml Dextrose (Dextrose 50%-Water Inj 50 Ml Syringe) 50 ml IV X1 ONE Stop: 03/14/25 14:53 Last Admin: 03/14/25 14:54 Dose: 50 ml Dextrose (Dextrose 50%-Water Inj 50 Ml Syringe) 100 ml IV X1 ONE Stop: 03/14/25 15:23 Last Admin: 03/14/25 15:26 Dose: 100 ml Dextrose (Dextrose 50%-Water Inj 50 Ml Syringe) 50 ml IV X1 ONE Stop: 03/14/25 16:17 Last Admin: 03/14/25 16:17 Dose: 50 ml Diltiazem HCl (Diltiazem Inj 5 Mg/Ml Vial 5 Ml) 20 mg IV X1 ONE Stop: 03/14/25 14:28 Last Admin: 03/14/25 14:35 Dose: 20 mg Etomidate (Etomidate Inj 2 Mg/Ml Vial 10 Ml) 20 mg IVP X1 ONE Stop: 03/14/25 15:21 Last Admin: 03/14/25 15:30 Dose: 20 mg Dextrose (D10w 1000 Ml) 250 mls @ 150 mls/hr IV Q15M PRN PRN Reason: HYPOGLYCEMIA Stop: 04/13/25 14:54 Ceftriaxone Sodium 2 gm/ (Sodium Chloride) 50 mls @ 100 mls/hr IV X1 ONE Stop: 03/14/25 16:37 Last Infusion: 03/14/25 16:49 Dose: Infused Azithromycin 500 mg/ Sodium (Chloride) 250 mls @ 250 mls/hr IV X1 ONE Stop: 03/14/25 17:08 Last Admin: 03/14/25 16:50 Dose: 250 mls/hr Midazolam HCl (Midazolam Inj 1 Mg/Ml Vial 2 Ml) 2 mg IV X1 ONE Stop: 03/14/25 14:17 Last Admin: 03/14/25 14:24 Dose: 2 mg Morphine Sulfate (Morphine Sulf Inj 10 Mg/Ml Vial) 4 mg IVP X1 ONE Stop: 03/14/25 14:17 Last Admin: 03/14/25 14:24 Dose: 4 mg Ondansetron HCl (Ondansetron Inj 2 Mg/Ml Inj 2 Ml) 4 mg IV X1 ONE; Protocol Stop: 03/14/25 14:17 Last Admin: 03/14/25 14:26 Dose: 4 mg Pantoprazole Sodium (Pantoprazole Inj 40 Mg Vial) 40 mg IVP QDAY [place] Stop: 04/13/25 17:44 Rocuronium [place] (Rocuronium Inj 10 Mg/Ml Vial 10 Ml) 60 mg IVP X1 ONE Stop: 03/14/25 15:21 Last Admin: 03/14/25 15:32 Dose: 60 mg Sodium Bicarbonate (Sodium Bicarb Inj 8.4% Syr 50 Ml Syringe) 50 ml IV X1 ONE Stop: 03/14/25 14:21 Last Admin: 03/14/25 14:34 Dose: 50 ml Assessment & Plan Plan 49-year-old male with past medical history of DM2, hypertension, ESRD (HD ), HFpEF (EF 55% on 2021), and right BKA due to osteomyelitis was admitted to the ICU on 03/14/2025 for acute hypoxic respiratory failure, acute encephalopathy, and shock. COOKER SULFITE: #Acute cephalopathy Patient came in with GCS of 3 He is able to move all extremities and responsive to pain. Pupils are reactive. Could be a component of hypoglycemia, metabolic, or drugs. CVS: #Shock Unknown etiology of shock at this time Could be a component of distributive given history of pneumonia and leukocytosis as well as a component of cardiogenic given history of HFpEF and fluid overload status at this time. Patient appears to be having some ground coffee emesis which could also be hypovolemic, even though less likely given hemoglobin is stable. Obstructive shock less likely at this time with there is no suspicion for PE or cardiac tamponade. Patient has signs of poor perfusion with cyanosis and bilateral upper extremity digits and left lower extremity along with lactic acidosis. Blood pressure stable for now, but may need vasopressors Started Zosyn and Vanco [03/14/2025?] Echo ordered #SVT versus A-fib? Patient supposedly had SVT while en route to the hospital and he was shocked once In the ED patient went again to what appeared to be SVT, but EKG showed A-fib as per chart review. Started on diltiazem drip, continue for now Ordered repeat EKG #Troponinemia Patient came in with troponins of 1.856 Patient recently had troponins of 0.290 on previous visit on 03/11/2025 EKG at this time did not show any acute ST changes Order EKG as there are no EKGs on file If patient's troponins continue to uptrend, heparin drip may be required but at this time is contraindicated until GI bleed is ruled out with EGD #HFpEF (EF 55% on 2021) Patient does have an echo on file from 2021 that they show EF of 55% Given positive U tox patient could have some dilated cardiomyopathy Given shortness of breath recently along with increased weight as of recently patient could be having an acute decompensated heart failure exacerbation Will hold diuresis for now given that etiology of shock is unknown Echo ordered Daily weights Strict JENN's Respiratory: #Acute hypoxic respiratory failure #Respiratory acidosis Intubated on 03/14/2025 Patient was complaining of shortness of breath since 3 days ago and was diagnosed with pneumonia, but failed antibiotics. Patient's ABG showed pH 7.03, pCO2 of 50, PO2 of 128 Patient appears to be on the compensated for his metabolic acidosis at this time Increased respiratory rate to 30 and ventilator Repeat ABG in 1 hour Renal: #ESRD (HD on ) #HAGMA #Lactic acidosis Last hemodialysis on Saturday (got more doses last week given increased and fluid retention) Anion gap 31, bicarb 10.1 initially Creatinine 7.2 and BUN 82 initially Lactic acid 15 initially pCO2 compensation between 21-25 Trend lactic acid Avoid nephrotoxic agents Renally dose medications Consults nephrology, appreciate recommendations #Hyperkalemia Patient came in with potassium of 5.5 initially Repeated CMP Will consider hyperkalemic cocktail depending on repeat CMP GI: #Possible GI bleed #Hematemesis Patient had some ground coffee material coming from the NG tube Patient's hemoglobin is stable at this time currently at 11.9 Will repeat H&H every 6 hours Will consult GI if hemoglobin does drop Endo: #DM2 #Hypoglycemia Patient came in with blood sugars of 23 and was started on D10 drip Most recent blood glucose was 290 therefore discontinued the 10 Order A1c for morning labs Hypoglycemia protocol ordered Heme: #Leukocytosis WBC 29.9 today Most likely infectious given history of pneumonia Zosyn and Vanco on board #Macrocytic anemia #Thrombocytopenia Hemoglobin 11.9 today, baseline is around 11 Platelets 131 today Will get repeat H&H every 6 hours ID: #Community-acquired pneumonia Chest x-ray showed pneumonia of right base Vancomycin and Zosyn on board MRSA nares ordered Blood cultures and sputum culture ordered Social: Positive U tox for meth and marijuana Hospital Maintenance: Diet: NPO DVT ppx: SCDs, chemical prophylaxis held given possible GI bleed GI ppx: Protonix IV IV lines: PIV, Cruz: cruz cath Code status: Full code Dispo: ICU in the setting of shock and acute hypoxic respiratory failure Case disclosed with Attending Dr. Jersey Lee PGY1
[2025-03-14] MEDS: ALBUTEROL RT 2.5 MG/0.5 ML NEBU INH (18:06)
[2025-03-14 18:17] LABS: Alanine Aminotransferase > 3300 U/L (10-49); Aspartate Amino Transferase > 6000 U/L (0-34)
[2025-03-14 18:18] LABS: Glucose 9 mg/dL (74-106)
[2025-03-14] MEDS: RINGERS LACTATED 1000 ML 1,000 ML 999 ML IV (18:30)
--- NOTE | 2025-03-14 18:36 | PC.NURSE ---
PER DR. WRIGHT IN ICU, PT O2 SATURATION TO BE 88-92%; PT HAS HX OF COPD. RT MADE AWARE.
--- NOTE | 2025-03-14 18:58 | PC.NURSE ---
Report called at this time by ER nurse Silverio. assistant casino shift manager nurse Earnest and I both got report on patient due to shift change. Patient will be transferred to room 255
[2025-03-14 19:00] LABS: Base Excess -15 (-3-3); HCO3 14 mEq/L (20-26); Inspired Oxygen, FIO2 75 %; O2 Saturation 78 % (91-98); PCO2 46 mmHg (32.0-48.0)
[2025-03-14 19:02] LABS: Hematocrit 37.7 % (41.0-53.0); Hemoglobin 11.2 g/dL (13.5-16.0)
[2025-03-14 19:02] LABS: Allen Test Performed/OK; Puncture Site Right Brachial
[2025-03-14 19:04] LABS: PO2 57 mmHg (83-108)
[2025-03-14 19:39] LABS: Reflex Lactate? Y
[2025-03-14] MEDS: Norepinephrine/D5W 8mg/250ml 8 MG/250 ML BAG 9.355 MG IV (19:50)
[2025-03-14] MEDS: RINGERS LACTATED 500 ML 500 ML 999 ML IV (20:00)
[2025-03-14 20:34] LABS: Alanine Aminotransferase > 3300 U/L (10-49); Albumin, Serum 3.2 gm/dL (3.5-5.0); Albumin/Globulin Ratio 1.6 (1.2-2.2); Alkaline Phosphatase 227 U/L (46-116); Anion Gap 27 (7-16); Aspartate Amino Transferase > 6000 U/L (0-34); BUN/Creatinine Ratio 12 Ratio (12-20); Bilirubin,Total 1.7 mg/dL (0.3-1.2); Blood Urea Nitrogen 83 mg/dL (9-23); Calcium 8.2 mg/dL (8.3-10.6); Calcium (Corrected) 8.8 mg/dL (8.5-10.1); Chloride 98 mMol/L (98-107); Creatine Kinase 250 U/L (34-171); Estimated Creatinine Clearance 13.8 mL/min (>60); Osmolality,Calculated 318 (275-295); Potassium 5.4 mMol/L (3.4-5.1); Sodium 138 mMol/L (136-145); Total Protein 5.2 gm/dL (5.7-8.2); eGFR 9 See Note
[2025-03-14 20:37] LABS: Carbon Dioxide 13.3 mMol/L (20.0-31.0)
[2025-03-14 20:39] LABS: Glucose 419 mg/dL (74-106); Troponin I 2.568 ng/mL (0.0-0.045)
[2025-03-14] MEDS: PHENTOLAMINE MESYLATE SC (21:02)
[2025-03-14] MEDS: PROPOFOL 1,000 MG IVPB 1,000 MG/100 ML VIAL 2.994 MG IV (21:15)
[2025-03-14] MEDS: VASOPRESSIN IN NS IVPB 20 UNIT/100 ML BAG 9 UNIT IV (21:15)
[2025-03-14] MEDS: fentaNYL 2,500 MCG/250 ML BAG 2,500 MCG/250 ML BAG IV (21:15)
[2025-03-14 21:27] LABS: Base Excess -14 (-3-3); HCO3 13 mEq/L (20-26); Inspired Oxygen, FIO2 75 %; O2 Saturation 97 % (91-98); PCO2 32 mmHg (32.0-48.0); PO2 116 mmHg (83-108); pH, Arterial 7.21 (7.35-7.45)
[2025-03-14 21:31] LABS: Allen Test Performed/OK; Puncture Site Right Radial
[2025-03-14 21:48] LABS: Reflex Lactate? Y
[2025-03-14] MEDS: PANTOPRAZOLE INJ 40 MG VIAL IVP (22:55)
[2025-03-14] MEDS: PIPER/TAZO INJ 4.5 GM in SODIUM CHLORIDE 0.9% (POP) 100 ML IV (22:56)
[2025-03-15] VITALS (146 sets, daily range): BP systolic 77–150; BP diastolic 36–97; PULSE 9–140; RESP 0–31; TEMP 36.2–37.1; O2SAT 83–100; BMI 33.7
--- NOTE | 2025-03-15 | XR_ITS ---
Examination: Ultrasound-guided catheter access right common femoral vein Fluoroscopy AP right hip single view Exam date and time: March 15, 2024 at 1324 hours INDICATIONS: No IV access 4 CT contrast study today TECHNIQUE AND FINDINGS: Skin prepped over the right groin and sterile drape applied maximum barrier sterile technique hand hygiene ultrasound sterile technique Site-Rite portable apparatus utilized to confirm patency of the right common femoral vein Utilizing ultrasonographic guidance successful 21-gauge needle puncture into the right internal jugular vein Ultrasound images recorded and stored 0.18 wire guide is introduced through the needle into the common femoral and common iliac vein 5 [place] catheter placed percutaneously over the wire guide Fluoroscopy 0.1 minute radiation dose 0.42 milligray 1 spot fluoroscopic film IMPRESSION: Successful ultrasound-guided needle and catheter access right common femoral vein
[2025-03-15 00:07] LABS: Troponin I 3.528 ng/mL (0.0-0.045)
[2025-03-15] MEDS: INSULIN LISPRO (AdmeLOG) 1 UNIT/0.01 ML UNIT SC (00:48)
[2025-03-15 01:32] LABS: Hematocrit 40.1 % (41.0-53.0); Hemoglobin 12.2 g/dL (13.5-16.0); Lactate (Lactic Acid) 13.3 mMol/L (0.4-2.0)
[2025-03-15 01:53] LABS: Reflex Lactate? Y
[2025-03-15 03:55] LABS: Albumin, Serum 3.3 gm/dL (3.5-5.0); Albumin/Globulin Ratio 1.3 (1.2-2.2); Alkaline Phosphatase 277 U/L (46-116); Anion Gap 26 (7-16); BUN/Creatinine Ratio 12 Ratio (12-20); Blood Urea Nitrogen 86 mg/dL (9-23); Calcium 7.6 mg/dL (8.3-10.6); Calcium (Corrected) 8.2 mg/dL (8.5-10.1); Chloride 97 mMol/L (98-107); Creatinine (Component) 7.1 mg/dL (0.6-1.3); Estimated Creatinine Clearance 13.6 mL/min (>60); Globulin 2.5 gm/dL (2.3-3.5); Glucose 295 mg/dL (74-106); Osmolality,Calculated 311 (275-295); Sodium 137 mMol/L (136-145); Total Protein 5.8 gm/dL (5.7-8.2); eGFR 9 See Note
[2025-03-15 04:08] LABS: Carbon Dioxide 14.4 mMol/L (20.0-31.0)
--- NOTE | 2025-03-15 04:12 | EKG_ITS ---
[facility] Test Date: 2025-03-15 Pat Name: CLEMENTE PERAZA [facility] Director Of Community Services: ABIMAEL : 1975 Requested By: Paula Rouse Order Number: [id number] Reading MD: Paula Rouse Measurements Intervals [place] Rate: 104 P: 258 NH: 186 QRS: 100 QRSD: 136 T: 191 QT: 389 QTc: 513 Interpretive Statements ECTOPIC ATRIAL TACHYCARDIA BORDERLINE RIGHT AXIS DEVIATION INTRAVENTRICULAR CONDUCTION DELAY Compared to ECG 03/11/2025 14:21:54 Sinus rhythm no longer present /store/S0/[id number].pdf
[2025-03-15 04:27] LABS: Reflex Lactate? Y
[2025-03-15] MEDS: DEXTROSE 50%-WATER INJ 50 ML SYRINGE 25 ML IV (04:34)
[2025-03-15] MEDS: INSULIN HUM REGULAR 1 UNIT/0.01 ML (PER UNIT) 10 UNIT IV (04:34)
[2025-03-15] MEDS: CALCIUM GLUCONATE 10% INJ 1 GM/10 ML VIAL IV (04:34)
[2025-03-15 05:19] LABS: Base Excess -4 (-3-3); HCO3 20 mEq/L (20-26); Inspired Oxygen, FIO2 35 %; O2 Saturation 95 % (91-98); PCO2 31 mmHg (32.0-48.0); PO2 74 mmHg (83-108); pH, Arterial 7.41 (7.35-7.45)
[2025-03-15 05:24] LABS: Allen Test Performed/OK; Puncture Site Right Radial
[2025-03-15 06:24] LABS: Basophils % (Auto) 0 % (0-2.5); Eosinophils % (Auto) 0 % (0-10); Hematocrit 39.5 % (41.0-53.0); Hemoglobin 12.4 g/dL (13.5-16.0); Immature Granulocytes % (Auto) 7 % (0-0); Immature Granulocytes Auto 2.02 Thou/mm3 (0.00-0.00); Lymphocytes % (Auto) 4 % (10-50); Mean Corpuscular HGB Conc 31.4 g/dl (31.0-37.0); Mean Corpuscular Hemoglobin 30.3 pg (25.0-35.0); Mean Corpuscular Volume 97 fL (80-100); Monocytes # (Auto) 1.3 Thou/mm3 (0.0-0.8); Monocytes % (Auto) 4 % (0-12); Neutrophils # (Auto) 24.2 Thou/mm3 (1.8-7.7); Neutrophils % (Auto) 85 % (37-80); Nucleated Red Blood Cell # 0.25 Thou/mm3 (0.00-0.00); Nucleated Red Blood Cell % 1 /100 WBC (0); Platelet Count 83 Thou/mm3 (140-440); RDW Standard Deviation 54.6 fL (35.1-43.9); Red Blood Count 4.09 Miln/mm3 (4.50-5.90); White Blood Count 28.6 Thou/mm3 (3.8-10.6)
[2025-03-15 06:45] LABS: Reflex Lactate? Y
--- NOTE | 2025-03-15 07:00 | XR_ITS ---
Examination: AP chest single view Technique: AP portable chest semiupright single view Exam date and time: March 15, 2025 0528 hrs. Comparison March 14, 2025 Indications: Hypoxic respiratory failure postintubation this week Findings: Bibasilar significant pneumonia Prominent vascular congestion Mild enlargement cardiac contour Endotracheal tube tip 5.6 cm above marco Recommend abdomen film to better assess orogastric tube position Impression: Significant bibasilar pneumonia Suspicious for mild associated heart failure Endotracheal tube tip 5.6 cm above marco Recommend abdomen follow-up to best assess orogastric tube position
[2025-03-15 07:17] LABS: Albumin, Serum 3.4 gm/dL (3.5-5.0); Albumin/Globulin Ratio 1.4 (1.2-2.2); Alkaline Phosphatase 292 U/L (46-116); Anion Gap 20 (7-16); BUN/Creatinine Ratio 12 Ratio (12-20); Bilirubin,Total 2.3 mg/dL (0.3-1.2); Blood Urea Nitrogen 90 mg/dL (9-23); Calcium (Corrected) 7.3 mg/dL (8.5-10.1); Carbon Dioxide 18.8 mMol/L (20.0-31.0); Cardiac Risk Estimate 7.4 RATIO (4.0-6.7); Chloride 98 mMol/L (98-107); Cholesterol 104 mg/dL (132-200); Creatinine (Component) 7.3 mg/dL (0.6-1.3); Estimated Creatinine Clearance 15.5 mL/min (>60); Globulin 2.5 gm/dL (2.3-3.5); Glucose 263 mg/dL (74-106); HDL Cholesterol 14 mg/dL (40-60); LDL Cholesterol,Calculated 44 mg/dL (0-130); Magnesium 2.4 mg/dL (1.6-2.6); Osmolality,Calculated 310 (275-295); Potassium 4.8 mMol/L (3.4-5.1); Sodium 137 mMol/L (136-145); Thyroid Stimulating Hormone 2.13 uIU/mL (0.55-4.78); Total Protein 5.9 gm/dL (5.7-8.2); Triglycerides 230 mg/dL (30-150); eGFR 8 See Note
[2025-03-15 07:20] LABS: Calcium 6.8 mg/dL (8.3-10.6); Phosphorous 10.1 mg/dL (2.4-5.1); Troponin I 7.899 ng/mL (0.0-0.045)
[2025-03-15] MEDS: PIPER/TAZO INJ 4.5 GM in SODIUM CHLORIDE 0.9% (POP) 100 ML IV (07:26)
[2025-03-15] MEDS: CALCIUM GLUC/NS 1000MG IVPB 1,000 MG/50 ML BAG 50 MG IV ×2 (07:38→21:30)
[2025-03-15 07:55] LABS: Alanine Aminotransferase > 3300 U/L (10-49); Aspartate Amino Transferase > 6000 U/L (0-34)
[2025-03-15 08:17] LABS: Lactate (Lactic Acid) 6.4 mMol/L (0.4-2.0)
[2025-03-15] MEDS: LORazepam 2 MG/ML VIAL IV (08:29)
--- NOTE | 2025-03-15 08:41 | XR_ITS ---
Examination: AP chest single view Technique one AP portable semiupright chest single view Standing date and time: March 15, 2025 0902 hours Comparison March 15, 2025 INDICATIONS: Hypoxic respiratory failure this week post intubation FINDINGS: Mild to moderate enlargement cardiac contour Atelectasis and pneumonia in the right middle lobe right base Endotracheal tube tip 4.7 cm above marco Right internal jugular central line tip SVC IMPRESSION: Significant atelectasis and pneumonia right lower lobe right middle lobe
[2025-03-15 09:09] LABS: Reflex Lactate? Y
[2025-03-15] MEDS: PROPOFOL 1,000 MG IVPB 1,000 MG/100 ML VIAL 11.975 MG IV ×2 (09:25→18:43)
[2025-03-15 09:58] LABS: Lactate (Lactic Acid) 2.8 mMol/L (0.4-2.0)
[2025-03-15 10:07] LABS: Glucose Estimated Average 108 mg/dL (80-131); Hemoglobin A1C 5.4 % Hgb (4.8-6.0)
[2025-03-15] MEDS: PANTOPRAZOLE INJ 40 MG VIAL IVP ×2 (10:07→21:30)
[2025-03-15] MEDS: NITROGLYCERIN OINT 2% 1 INCH PACKET TOP (10:12)
--- NOTE | 2025-03-15 10:26 | XR_ITS ---
Examination: Abdomen sonogram, complete Date and time of exam: March 15, 2025 1644 hrs. Indications: Acute hypoxic renal failure, elevated troponin, clinical diagnosis acute left leg ischemia, abdominal pain Technique: Multiple real-time grayscale transabdominal sonographic images of the abdomen have been obtained. Findings: No visualization gallbladder Common bile duct 0.5 cm Pancreatic head 3.9 cm Significant hepatomegaly 21.6 cm irregular contour and mild ascites Aorta not enlarged Normal hepatopedal portal venous flow No cortical venous or inferior vena cava thrombus Patent IVC Right kidney 10.3 cm cortex 1.5 cm Left kidney 10.3 cm cortex 1.9 cm 17 mm lateral left renal cyst Mild splenomegaly 13 cm Impression: Cirrhosis versus primary hepatocellular disease Significant hepatomegaly Mild ascites Normal hepatopedal portal venous flow, no portal venous thrombus
--- NOTE | 2025-03-15 10:30 | PD.RESPROC ---
Procedures Procedure Date / Time 03/15/25 8:35 Procedural Time Out Time out performed: yes Procedure Narrative Procedure Narrative: The patient was placed in Trendelenburg position. The Right neck was prepped using chlorhexidine scrub ?and draped in sterile fashion. ?Using real-time ultrasound, with sterile probe cover and sterile gel, the introducer needle was inserted into the vein under direct ultrasound visualization. Venous blood was withdrawn. The syringe was removed and a guidewire was advanced into the introducer needle. The guidewire was visualized in the appropriate vein by ultrasound. A small incision was made at the skin surface with a scalpel and the introducer needle was exchanged for a dilator over the guidewire. After appropriate dilation was obtained, the dilator was exchanged over the wire for a central venous catheter. The wire was removed and the catheter was sutured in place. A biopatch was placed at the insertion site. A sterile op-site was placed over the catheter and biopatch. The patient tolerated the procedure without any hemodynamic compromise. At time of procedure completion, all ports aspirated and flushed properly. Chest X Ray afterwards, catheter in good position.? Case discussed and supervised by my attending Dr. Jersey Lee, PGY1 Central Line Placement Right IJ: Indication(s): shock and poor, or inadequate peripheral venous access Informed consent obtained: obtained from surrogate decision maker Time out done, and the following verified: correct patient, side and site, procedure, patient position and implants and/or equipment Patient placed on monitor/pulse ox: Yes Hand Hygiene: alcohol-based hand rub Max Sterile Barrier Techniques used: cap, mask, sterile gown, sterile gloves and sterile full body drape Central line prep: Chlorhexidine scrub Local anesthesia used: lidocaine 1% Amount of anesthesia used (mL): 4 Ultrasound used for placement: Yes Sterile Technique if Ultrasound used, including sterile gel: yes Central line lumen inserted: triple Post procedure: sutured in place, good blood return, all ports aspirated, flushed, capped and sterile dressing applied Post procedure x-ray: tip of catheter in good position and no pneumothorax seen Patient tolerated procedure: well and no complications EBL(ml): 5 Procedure comment: Attending note: I was present and available for the procedure and assisted in correia aspects.
--- NOTE | 2025-03-15 10:33 | PD.RESPRO ---
Documentation for date of: 03/15/25 Subjective Subjective Interval history: 49-year-old male with past medical history of DM2, hypertension, ESRD (HD ), HFpEF (EF 55% on 2021), and right BKA due to osteomyelitis was admitted to the ICU on 03/14/2025 after coming to the ED via ambulance due to altered mental status. Given patient's mental status and being intubated most of the history was taken from chart review and from patient's who was at bedside. Patient's stated that he was in the ER around 3 days ago due to some substernal chest pain and shortness of breath, but he was discharged with some antibiotics that he was told he had some pneumonia. She mentioned that yesterday in the evening he again had some shortness of breath and was kind of confused, but he did not want to come into the hospital at this time. Today in the morning she states that he was less responsive and that he was more cyanotic. At this time she decided to call EMS who brought the patient to the ED. As per chart review patient was in SVT when EMS arrived therefore he was shocked once and he converted to sinus rhythm. He was also noticed to be very hypoglycemic when he came into the ED with a blood glucose of around 23 therefore he was given multiple amps of D50. ED physician started patient on diltiazem drip. Of note, patient's states that this week he had to get more sessions of hemodialysis as he had increased a lot in weight. She mentioned that the last hemodialysis was on Saturday. She also mentioned that they are having a no recent changes on his medications and that he had not been using any medication for his diabetes. 03/15/2025: Patient seen and examined at bedside this morning. Overnight patient required to be placed on vasopressors as his blood pressure had dropped. They started the vasopressors on the peripheral IV line in the right upper extremity the IV line was infiltrated therefore they gave phentolamine x 1 and placed warm compresses. This morning a central line was placed on the right IJ and hemodialysis catheter was placed on the left IJ. Patient's labs today showed that hemoglobin was stable and since there was no more coffee-ground material coming from the NG tube we will start heparin drip, aspirin, and Plavix given that his troponins up trended to 7.899 before downtrending and the his EKG overnight did show some ST depressions in the inferior and lateral leads. Patient's metabolic acidosis is is improving slightly and lactic acid is downtrending. Patient's liver enzymes were severely elevated with AST and ALT above 6000 and 3300 respectively, order abdominal ultrasound and hepatitis panel. Chest x-ray this morning also showed that there could be right lower lobe collapse therefore will do bronchoscopy to better assess. Ordered CT angiogram of abdomen with iliofemoral runoff to assess for possible acute limb ischemia on the left lower extremity given that yesterday with follow-up weak pulse, but today extremity was pulseless. Exam Vital Signs Temp Pulse Resp BP Pulse Ox O2 Del Method O2 Flow Rate 98.1 F 103 H 34 H 109/74 90 L Mechanical Ventilation 50 03/15/25 08:00 03/15/25 10:19 03/14/25 19:00 03/15/25 10:19 03/15/25 10:19 03/14/25 18:09 03/14/25 18:09 FiO2 35 03/15/25 10:19 Narrative Exam General: Mechanically ventilated, responsive to pain able to move lower extremities Eyes: Pupils reactive to light, anicteric. Ears: No visible ear discharge Nose: No visible nasal discharge. Mouth/Throat: Moist mucous membranes, no redness, no lesions, coffee-ground material from NG tube not appreciated today. Neck: Neck supple, no cervical lymphadenopathy. Lungs: Clear CHRISTIANO in upper lobes, but decreased in lower lobes still present. Cardio: Normal S1/S2, tachycardic no murmurs, no JVD Abdomen: Soft, non-tender, no palpable masses, peristalsis present, no guarding or rebound, swollen in the lower abdomen and some mild ascites. Extremities: Right BKA with cyanotic changes at the stump, left lower extremity swollen all the way up to the mid thigh 2+, cyanotic changes of the left toes, pulses were very weak yesterday and today are not present on the left lower extremity. Right thigh has indurated and erythematous demarcated rash on the medial aspect, purpuric discoloration on the lower lateral aspect of the right thigh noticed today. Skin: More purple discoloration on the right upper extremity digits compared to the left extremity digits. Skin injury with purple discoloration in the lateral right thigh, indurated redness demarcated rash in the inner right thigh, cyanotic left toes Neuro: Responsive to pain, moving all extremities, following commands, mechanically ventilated Objective Labs 03/15/25 12:14 03/15/25 06:01 Labs: Laboratory Results - last 24 hr 03/14/25 03/14/25 03/14/25 14:15 14:32 14:44 WBC 29.9 H D RBC 3.89 L Hgb 11.9 L Hct 40.2 L MCV 103 H MCH 30.6 MCHC 29.6 L RDW Std Deviation 59.9 H Plt Count 131 L D Neut % (Auto) 63 Lymph % (Auto) 3 L [place] % (Auto) 5 Eos % (Auto) 23 H Baso % (Auto) 0 Neut # (Auto) 18.9 H Lymph # (Auto) 0.8 L [place] # (Auto) 1.4 H Eos # (Auto) 7.0 H Baso # (Auto) 0.0 Immature Gran # (Auto) 1.85 H Absolute Nucleated RBC 0.03 H Immature Gran % 6 H Neutrophils % (Manual) 83 H Monocytes % (Manual) 11 H Eosinophils % (Manual) 1 Myelocytes % 1 H Nucleated RBC % 0 Band Neutrophils 1 Lymphocytes (Manual) 3 L Puncture Site Left Brachial ABG pH 7.03 L* ABG pCO2 43 ABG pO2 86 ABG HCO3 11 L ABG O2 Saturation 91 ABG Base Excess -19 L FiO2 21 Sodium 140 Potassium 5.5 H Chloride 99 Carbon Dioxide 10.1 L* Anion Gap 31 H BUN 82 H Creatinine 7.2 H* D Estim Creat Clear Calc 13.4 L eGFR 9 L* BUN/Creatinine Ratio 11 L Glucose 9 L* Estimated Ave Glu mg/dL 103 Hemoglobin A1c 5.2 Calculated Osmolality 299 H Lactic Acid Calcium 9.3 Corrected Calcium 9.7 Phosphorus Magnesium 3.0 H Cancelled Total Bilirubin 1.7 H AST > 6000 H* ALT > 3300 H* Alkaline Phosphatase 216 H Total Creatine Kinase Troponin I 1.856 H* Cancelled Total Protein 5.9 Albumin 3.5 Globulin 2.4 Albumin/Globulin Ratio 1.5 Triglycerides Cholesterol LDL Cholesterol, Calc HDL Cholesterol Cholesterol/HDL Ratio Procalcitonin TSH Ur Collection Type Urine Color Urine Clarity Urine pH Ur Specific [place] Urine Protein Urine Glucose (UA) Urine Ketones Urine Blood Urine Nitrite Urine Bilirubin Urine Urobilinogen (Auto) Ur Leukocyte Esterase Urine RBC Urine WBC Ur Squamous Epith Cells Ur Transition Epith Cell Amorphous Crystals Urine Bacteria Urine Opiates Screen Urine Fentanyl Screen Ur Barbiturates Screen U Amphetamin/Meth Scrn U Benzodiazepines Scrn U Cocaine Metab Screen U Marijuana (THC) Screen Blood Type Antibody Screen Blood Bank Wristband ID 03/14/25 03/14/25 03/14/25 16:12 16:34 16:44 WBC RBC Hgb Hct MCV MCH MCHC RDW Std Deviation Plt Count Neut % (Auto) Lymph % (Auto) [place] % (Auto) Eos % (Auto) Baso % (Auto) Neut # (Auto) Lymph # (Auto) [place] # (Auto) Eos # (Auto) Baso # (Auto) Immature Gran # (Auto) Absolute Nucleated RBC Immature Gran % Neutrophils % (Manual) Monocytes % (Manual) Eosinophils % (Manual) Myelocytes % Nucleated RBC % Band Neutrophils Lymphocytes (Manual) Puncture Site Right Brachial ABG pH 7.04 L* ABG pCO2 50 H ABG pO2 128 H D ABG HCO3 13 L ABG O2 Saturation 97 ABG Base Excess -17 L FiO2 21 Sodium Potassium Chloride Carbon Dioxide Anion Gap BUN Creatinine Estim Creat Clear Calc eGFR BUN/Creatinine Ratio Glucose Estimated Ave Glu mg/dL Hemoglobin A1c Calculated Osmolality Lactic Acid 15.0 H* Calcium Corrected Calcium Phosphorus Magnesium Total Bilirubin AST ALT Alkaline Phosphatase Total Creatine Kinase Troponin I Total Protein Albumin Globulin Albumin/Globulin Ratio Triglycerides Cholesterol LDL Cholesterol, Calc HDL Cholesterol Cholesterol/HDL Ratio Procalcitonin 6.13 H TSH Ur Collection Type Catheter Urine Color Yellow Urine Clarity Turbid A Urine pH 6.5 Ur Specific [place] 1.026 Urine Protein 3+ A Urine Glucose (UA) 3+ A Urine Ketones Negative Urine Blood 2+ A Urine Nitrite Negative Urine Bilirubin Negative Urine Urobilinogen (Auto) Negative Ur Leukocyte Esterase Positive Urine RBC 12 H Urine WBC 36 H Ur Squamous Epith Cells 9 H Ur Transition Epith Cell 7 H Amorphous Crystals Present A Urine Bacteria None Urine Opiates Screen Positive A Urine Fentanyl Screen Negative Ur Barbiturates Screen Negative U Amphetamin/Meth Scrn Positive A U Benzodiazepines Scrn Negative U Cocaine Metab Screen Negative U Marijuana (THC) Screen Positive A Blood Type Antibody Screen Blood Bank Wristband ID 03/14/25 03/14/25 03/14/25 17:35 18:41 18:53 WBC RBC Hgb 11.2 L Hct 37.7 L MCV MCH MCHC RDW Std Deviation Plt Count Neut % (Auto) Lymph % (Auto) [place] % (Auto) Eos % (Auto) Baso % (Auto) Neut # (Auto) Lymph # (Auto) [place] # (Auto) Eos # (Auto) Baso # (Auto) Immature Gran # (Auto) Absolute Nucleated RBC Immature Gran % Neutrophils % (Manual) Monocytes % (Manual) Eosinophils % (Manual) Myelocytes % Nucleated RBC % Band Neutrophils Lymphocytes (Manual) Puncture Site Right Brachial ABG pH 7.10 L* ABG pCO2 46 ABG pO2 57 L* D ABG HCO3 14 L ABG O2 Saturation 78 L ABG Base Excess -15 L FiO2 75 Sodium 138 Potassium 5.4 H Chloride 98 Carbon Dioxide 13.3 L* Anion Gap 27 H BUN 83 H Creatinine 7.0 H* Estim Creat Clear Calc 13.8 L eGFR 9 L* BUN/Creatinine Ratio 12 Glucose 419 H* D Estimated Ave Glu mg/dL Hemoglobin A1c Calculated Osmolality 318 H Lactic Acid 14.0 H* Calcium 8.2 L Corrected Calcium 8.8 Phosphorus Magnesium Total Bilirubin 1.7 H AST > 6000 H* ALT > 3300 H* Alkaline Phosphatase 227 H Total Creatine Kinase 250 H Troponin I 2.568 H* D Total Protein 5.2 L Albumin 3.2 L Globulin 2.0 L Albumin/Globulin Ratio 1.6 Triglycerides Cholesterol LDL Cholesterol, Calc HDL Cholesterol Cholesterol/HDL Ratio Procalcitonin TSH Ur Collection Type Urine Color Urine Clarity Urine pH Ur Specific [place] Urine Protein Urine Glucose (UA) Urine Ketones Urine Blood Urine Nitrite Urine Bilirubin Urine Urobilinogen (Auto) Ur Leukocyte Esterase Urine RBC Urine WBC Ur Squamous Epith Cells Ur Transition Epith Cell Amorphous Crystals Urine Bacteria Urine Opiates Screen Urine Fentanyl Screen Ur Barbiturates Screen U Amphetamin/Meth Scrn U Benzodiazepines Scrn U Cocaine Metab Screen U Marijuana (THC) Screen Blood Type A Positive Antibody Screen NEGATIVE Blood Bank Wristband ID Yes 03/14/25 03/14/25 03/14/25 20:37 21:20 22:42 WBC RBC Hgb Hct MCV MCH MCHC RDW Std Deviation Plt Count Neut % (Auto) Lymph % (Auto) [place] % (Auto) Eos % (Auto) Baso % (Auto) Neut # (Auto) Lymph # (Auto) [place] # (Auto) Eos # (Auto) Baso # (Auto) Immature Gran # (Auto) Absolute Nucleated RBC Immature Gran % Neutrophils % (Manual) Monocytes % (Manual) Eosinophils % (Manual) Myelocytes % Nucleated RBC % Band Neutrophils Lymphocytes (Manual) Puncture Site Right Radial ABG pH 7.21 L D ABG pCO2 32 D ABG pO2 116 H D ABG HCO3 13 L ABG O2 Saturation 97 ABG Base Excess -14 L FiO2 75 Sodium Potassium Chloride Carbon Dioxide Anion Gap BUN Creatinine Estim Creat Clear Calc eGFR BUN/Creatinine Ratio Glucose Estimated Ave Glu mg/dL Hemoglobin A1c Calculated Osmolality Lactic Acid 22.0 H* 23.0 H* Calcium Corrected Calcium Phosphorus Magnesium Total Bilirubin AST ALT Alkaline Phosphatase Total Creatine Kinase Troponin I 3.528 H* D Total Protein Albumin Globulin Albumin/Globulin Ratio Triglycerides Cholesterol LDL Cholesterol, Calc HDL Cholesterol Cholesterol/HDL Ratio Procalcitonin TSH Ur Collection Type Urine Color Urine Clarity Urine pH Ur Specific [place] Urine Protein Urine Glucose (UA) Urine Ketones Urine Blood Urine Nitrite Urine Bilirubin Urine Urobilinogen (Auto) Ur Leukocyte Esterase Urine RBC Urine WBC Ur Squamous Epith Cells Ur Transition Epith Cell Amorphous Crystals Urine Bacteria Urine Opiates Screen Urine Fentanyl Screen Ur Barbiturates Screen U Amphetamin/Meth Scrn U Benzodiazepines Scrn U Cocaine Metab Screen U Marijuana (THC) Screen Blood Type Antibody Screen Blood Bank Wristband ID 03/15/25 03/15/25 03/15/25 01:22 03:37 05:07 WBC RBC Hgb 12.2 L Hct 40.1 L MCV MCH MCHC RDW Std Deviation Plt Count Neut % (Auto) Lymph % (Auto) [place] % (Auto) Eos % (Auto) Baso % (Auto) Neut # (Auto) Lymph # (Auto) [place] # (Auto) Eos # (Auto) Baso # (Auto) Immature Gran # (Auto) Absolute Nucleated RBC Immature Gran % Neutrophils % (Manual) Monocytes % (Manual) Eosinophils % (Manual) Myelocytes % Nucleated RBC % Band Neutrophils Lymphocytes (Manual) Puncture Site Right Radial ABG pH 7.41 D ABG pCO2 31 L ABG pO2 74 L D ABG HCO3 20 ABG O2 Saturation 95 ABG Base Excess -4 L FiO2 35 Sodium 137 Potassium 6.0 H D Chloride 97 L Carbon Dioxide 14.4 L* Anion Gap 26 H BUN 86 H Creatinine 7.1 H* Estim Creat Clear Calc 13.6 L eGFR 9 L* BUN/Creatinine Ratio 12 Glucose [address] Glu mg/dL Hemoglobin A1c Calculated Osmolality 311 H Lactic Acid 13.3 H* 23.0 H* Calcium 7.6 L Corrected Calcium 8.2 L Phosphorus Magnesium Total Bilirubin 2.0 H AST TNP ALT TNP Alkaline Phosphatase 277 H D Total Creatine Kinase Troponin I 5.920 H* D Total Protein 5.8 Albumin 3.3 L Globulin 2.5 Albumin/Globulin Ratio 1.3 Triglycerides Cholesterol LDL Cholesterol, Calc HDL Cholesterol Cholesterol/HDL Ratio Procalcitonin TSH Ur Collection Type Urine Color Urine Clarity Urine pH Ur Specific [place] Urine Protein Urine Glucose (UA) Urine Ketones Urine Blood Urine Nitrite Urine Bilirubin Urine Urobilinogen (Auto) Ur Leukocyte Esterase Urine RBC Urine WBC Ur Squamous Epith Cells Ur Transition Epith Cell Amorphous Crystals Urine Bacteria Urine Opiates Screen Urine Fentanyl Screen Ur Barbiturates Screen U Amphetamin/Meth Scrn U Benzodiazepines Scrn U Cocaine Metab Screen U Marijuana (THC) Screen Blood Type Antibody Screen Blood Bank Wristband ID 03/15/25 03/15/25 03/15/25 06:01 07:59 09:43 WBC 28.6 H RBC 4.09 L Hgb 12.4 L Hct 39.5 L MCV 97 MCH 30.3 MCHC 31.4 RDW Std Deviation 54.6 H Plt Count 83 L D Neut % (Auto) 85 H Lymph % (Auto) 4 L [place] % (Auto) 4 Eos % (Auto) 0 Baso % (Auto) 0 Neut # (Auto) 24.2 H Lymph # (Auto) 1.0 [place] # (Auto) 1.3 H Eos # (Auto) 0.0 Baso # (Auto) 0.0 Immature Gran # (Auto) 2.02 H Absolute Nucleated RBC 0.25 H Immature Gran % 7 H Neutrophils % (Manual) Monocytes % (Manual) Eosinophils % (Manual) Myelocytes % Nucleated RBC % 1 H Band Neutrophils Lymphocytes (Manual) Puncture Site ABG pH ABG pCO2 ABG pO2 ABG HCO3 ABG O2 Saturation ABG Base Excess FiO2 Sodium 137 Potassium 4.8 D Chloride 98 Carbon Dioxide 18.8 L Anion Gap 20 H BUN 90 H Creatinine 7.3 H* Estim Creat Clear Calc 15.5 L eGFR 8 L* BUN/Creatinine Ratio [address] Glu mg/dL 108 Hemoglobin A1c 5.4 Calculated Osmolality 310 H Lactic Acid 8.0 H* 6.4 H* 2.8 H Calcium 6.8 L* Corrected Calcium 7.3 L Phosphorus 10.1 H Magnesium 2.4 Total Bilirubin 2.3 H AST > 6000 H* ALT > 3300 H* Alkaline Phosphatase 292 H Total Creatine Kinase Troponin I 7.899 H* D Total Protein 5.9 Albumin 3.4 L Globulin 2.5 Albumin/Globulin Ratio 1.4 Triglycerides 230 H Cholesterol 104 L LDL Cholesterol, Calc 44 HDL Cholesterol 14 L Cholesterol/HDL Ratio 7.4 H Procalcitonin TSH 2.13 Ur Collection Type Urine Color Urine Clarity Urine pH Ur Specific [place] Urine Protein Urine Glucose (UA) Urine Ketones Urine Blood Urine Nitrite Urine Bilirubin Urine Urobilinogen (Auto) Ur Leukocyte Esterase Urine RBC Urine WBC Ur Squamous Epith Cells Ur Transition Epith Cell Amorphous Crystals Urine Bacteria Urine Opiates Screen Urine Fentanyl Screen Ur Barbiturates Screen U Amphetamin/Meth Scrn U Benzodiazepines Scrn U Cocaine Metab Screen U Marijuana (THC) Screen Blood Type Antibody Screen Blood Bank Wristband ID ABG Interpretation ABG results: 03/14/25 03/14/25 03/14/25 14:44 16:44 18:53 ABG pH 7.03 L* 7.04 L* 7.10 L* ABG pCO2 43 50 H 46 ABG pO2 86 128 H D 57 L* D ABG HCO3 11 L 13 L 14 L ABG O2 Saturation 91 97 78 L ABG Base Excess -19 L -17 L -15 L 03/14/25 03/15/25 21:20 05:07 ABG pH 7.21 L D 7.41 D ABG pCO2 32 D 31 L ABG pO2 116 H D 74 L D ABG HCO3 13 L 20 ABG O2 Saturation 97 95 ABG Base Excess -14 L -4 L Quality Measures Quality Measures none Assessment & Plan Assessment Current Active Medications: Generic Name Dose Route Start Last Admin Trade Name Freq PRN Reason Stop Dose Admin Acetaminophen 650 mg 03/14/25 17:31 Acetaminophen Supp 650 Mg Supp MN 04/13/25 17:30 Q6HR PRN FEVER>101.5 Aspirin 81 mg 03/15/25 10:30 Aspirin Ec 81 Mg Tabec PO 04/14/25 10:29 QDAY [place] Clopidogrel Bisulfate 75 mg 03/15/25 10:30 Clopidogrel Bisulfate 75 Mg Tablet PO 04/14/25 10:29 QDAY [place] Dextrose 25 ml 03/14/25 20:38 Dextrose 50%-Water Inj 50 Ml Syringe IV 04/13/25 20:37 Q15MIN PRN BG 50-70 responsive npo pt Dextrose 50 ml 03/14/25 20:38 Dextrose 50%-Water Inj 50 Ml Syringe IV 04/13/25 20:37 Q15MIN PRN BG <50 OR BG <70 & pt unresponsive Glucagon 1 mg 03/14/25 17:36 Glucagon Inj 1 Mg Vial IM Q15MIN PRN BG <70, and no IV access Heparin Sodium (Porcine) 3,000 unit 03/15/25 05:04 Heparin Sod Inj 5000 Unit/Ml Vial 30 unit/kg (3000 unit) 03/15/25 05:05 IV X1 ONE Protocol Norepinephrine/Dextrose 8 mg in 250 mls @ 9.355 mls/hr 03/14/25 19:43 03/15/25 09:25 Levophed In D5w 8mg/250ml IV 04/13/25 19:42 0.07 mcg/kg/min .Q24H PRN 13.097 mls/hr PER PROTOCOL Titration Protocol 0.05 MCG/KG/MIN Vasopressin/Sodium Chloride 20 unit in 100 mls @ 9 mls/hr 03/14/25 20:33 03/14/25 21:45 Vasostrict/Ns Ivpb IV 04/13/25 20:32 0 unit/min .Q11H7M PRN 0 mls/hr PER PROTOCOL Titration Protocol 0.03 UNIT/MIN Propofol 1,000 mg in 100 mls @ 2.994 mls/hr 03/14/25 21:07 03/15/25 09:25 Diprivan Ivpb IV 04/13/25 21:06 20 mcg/kg/min .Q24H PRN 11.975 mls/hr PER PROTOCOL Administration Protocol 5 MCG/KG/MIN Fentanyl Citrate 2,500 mcg in 250 mls @ 2.5 mls/hr 03/14/25 21:08 03/15/25 09:00 Sublimaze Inj 2,500 Mcg/250 Ml Bag IV 03/19/25 21:07 200 mcg/hr .Q24H PRN 20 mls/hr PER PROTOCOL Titration Protocol 25 MCG/HR Heparin Sodium/Dextrose 25,000 unit in 250 mls @ 13.548 mls/hr 03/15/25 05:15 Heparin In D5w Ivpb IV 03/29/25 05:14 .[id number] [facility] Protocol 12 UNITS/KG/HR Piperacillin Sod/Tazobactam 100 mls @ 25 mls/hr 03/15/25 21:00 Sod 4.5 gm/ Sodium Chloride IV 03/22/25 08:59 Q12HR [place] Vancomycin HCl/Dextrose 250 mls @ 120 mls/hr 03/15/25 12:00 Vancomycin/D5w 1,250 Mg Ivpb IV 03/15/25 14:04 X1 ONE Insulin Human Lispro 0 unit 03/14/25 20:45 03/15/25 06:18 Insulin Lispro (Admelog) 1 Unit/0.01 Ml Unit SC 04/13/25 20:44 Not Given Q6HR [facility] Protocol Ondansetron HCl 4 mg 03/14/25 17:31 Ondansetron Inj 2 Mg/Ml Inj 2 Ml IV 04/13/25 17:30 Q6H PRN NAUSEA OR VOMITING Protocol Pantoprazole Sodium 40 mg 03/14/25 21:00 03/15/25 10:07 Pantoprazole Inj 40 Mg Vial IVP 04/13/25 20:59 40 mg BID [facility] Administration Pharmacy Consult 1 each 03/14/25 17:45 03/15/25 08:50 Vancomycin Pharmacy To Dose 1 Each Each IV 04/13/25 17:44 Not Given QDAY [facility] Plan 49-year-old male with past medical history of DM2, hypertension, ESRD (HD /), HFpEF (EF 55% on 2021), and right BKA due to osteomyelitis was admitted to the ICU on 03/14/2025 for acute hypoxic respiratory failure, acute encephalopathy, and shock. 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 Patient appears to be having some ground coffee emesis which could also be hypovolemic, even though less likely given hemoglobin is stable. Obstructive shock less likely at this time with there is no suspicion for PE or cardiac tamponade. Patient has signs of poor perfusion with cyanosis and bilateral upper extremity digits and left lower extremity along with lactic acidosis. Patient required to be started on Levophed overnight Continue Zosyn and Vanco [03/14/2025?] Echo pending #SVT versus A-fib? Patient supposedly had SVT while en route to the hospital and he was shocked once In the ED patient went again to what appeared to be SVT, but EKG showed A-fib as per chart review. EKG overnight showed P waves and only showed sinus tachycardia Patient off diltiazem drip #Troponinemia Troponins peaked at 7.899 and down trended to 7.04 EKG done overnight that shows some ST depressions in lead II and V3 to V6 We will start patient on aspirin, Plavix, and heparin drip Bedside echo did not show any wall abnormalities Cardiology consulted, appreciate recommendations #HFpEF (EF 55% on 2021) Patient does have an echo on file from 2021 that they show EF of 55% Given positive U tox patient could have some dilated cardiomyopathy Given shortness of breath recently along with increased weight as of recently patient could be having an acute decompensated heart failure exacerbation Echo pending Daily weights Strict JENN's Respiratory: #Acute hypoxic respiratory failure #Respiratory acidosis Intubated on 03/14/2025 ABG this morning showed improvement with a pH of 7.41, PCO2 of 31, and PO2 of 74 Chest x-ray today showed what could be the right lower lobe had collapse. Will plan for bronchoscopy. Will continue to monitor with daily ABGs and chest x-rays Renal: #ESRD (HD on ) #HAGMA, improving #Lactic acidosis, improving Last hemodialysis on Saturday (got more doses last week given increased and fluid retention) Anion gap 20 and bicarb 18.8 today Lactic acid 15 initially and down trended to 2.8 today pCO2 compensation between scratched at 34-38 Will continue to trend lactic Patient will undergo PRRT Avoid nephrotoxic agents Renally dose medications Consults nephrology, appreciate recommendations #Hypocalcemia Calcium 6.8 and corrected 7.3 Gave 1 g of calcium IV Will continue to monitor #Hyperkalemia, resolved GI: #Possible GI bleed #Hematemesis Patient's hemoglobin is stable at this time currently at 12.4 No more alcohol emesis seen from NG tube, initial coffee-ground emesis could have been due to trauma with NG tube placement. #Transaminitis Possible liver failure due to methamphetamine use? Patient is AST and ALT above 6000 and 3300 respectively Could be due to shock liver versus hypoxia versus drug-induced Ordered hepatitis panel and abdomen ultrasound Will continue to monitor MSK: #Possible acute limb ischemia Patient's left lower extremity was pulseless today, yesterday did have a weak pulse Could not be palpated nor found with Doppler Will get a abdomen CT a with femoral runoff to assess for acute limb ischemia Endo: #DM2 #Hypoglycemia Patient's hypoglycemia could have been a sample was taken from fingers with given cyanosis were probably giving inaccurate readings Glucose checked on venous blood from gentle catheter showed blood sugar in the 120s A1c 5.4 Hypoglycemia protocol ordered Heme: #Hypercoagulopathy #DIC PTT above 63 and PTT 63.2, Fibrinogen 140, and D-Dimer 3480 which is consistent with DIC INR cannot be calculated due to the elevated PTT Will order 11 units of cryoprecipitate #Leukocytosis WBC 28.6today Most likely infectious given history of pneumonia Zosyn and Vanco on board #Macrocytic anemia #Thrombocytopenia Hemoglobin 12.4 Platelets 83 today Will get repeat H&H every 6 hours ID: #Community-acquired pneumonia Chest x-ray showed pneumonia of right base Vancomycin and Zosyn on board MRSA nares pending Blood cultures and sputum culture pending Social: Positive U tox for meth and marijuana Hospital Maintenance: Diet: NPO DVT ppx: SCDs, chemical prophylaxis held given possible GI bleed GI ppx: Protonix IV IV lines: PIV, CIV (R/L) Cruz: cruz cath Code status: Full code Dispo: ICU in the setting of shock and acute hypoxic respiratory failure Case disclosed with Attending Dr. Jersey Lee [id number]
[2025-03-15 10:37] LABS: Partial Thromboplastin Time 60.7 Seconds (22.0-36.0)
[2025-03-15 10:41] LABS: Troponin I 7.704 ng/mL (0.0-0.045)
[2025-03-15 11:02] LABS: Prothrombin Time > 63.0 Seconds (9.0-12.2)
[2025-03-15 11:14] LABS: Reflex Lactate? Y
--- NOTE | 2025-03-15 11:15 | XR_ITS ---
Examination: AP chest single view TECHNIQUE: AP portable sitting chest single view Exam date and time: March 15, 2025 1131 hours Comparison March 15, 2025 0902 hours INDICATIONS: Status post insertion temporary dialysis catheter FINDINGS: Left internal jugular temporary dialysis catheter in the SVC satisfactory position No pneumothorax Mild enlargement cardiac contour Significant pneumonia atelectasis in the right lower lobe right middle lobe Right internal jugular central line tip SVC Tracheal tube tip 5.5 cm above marco Mild vascular congestion IMPRESSION: Interval left internal jugular temporary dialysis catheter in satisfactory position, no pneumothorax
--- NOTE | 2025-03-15 11:25 | XR_ITS ---
Examination: CTA abdominal aorta iliofemoral runoff. 2-D sagittal coronal reconstructions. 3-D reconstructions, vascular Exam date and time: March 15, 2025 1515 hrs. Indications: Clinical diagnosis acute left limb ischemia, cold lower extremity no pulses Technique: Multiple CTA images of the abdominal aorta iliofemoral runoff arterial vessels, 2.0 mm slice thickness, post intravenous administration 80 cc [id number] 2-D sagittal coronal reconstructions. 3-D reconstructions, vascular 3-D postprocessing, including vascular maximum intensity projection images, 3-D volume rendering Low dose protocols were performed. One or more of the following dose reduction techniques were used; automated exposure control, adjustment of the mA and/or KV according to patient size, use of iterative reconstruction technique. Findings: Liver irregular in contour Anasarca No focal liver lesions No pancreatic mass Orogastric tube in the stomach No hydronephrosis Mild ascites No bowel obstruction Diffusely thickened colonic wall, hepatic colopathy pattern Abdominal aortic calcification no aneurysmal dilatation Intact origin celiac superior mesenteric axes 40% stenosis proximal left renal artery Common iliac arteries or external iliac arteries are intact as well as common femoral arteries Heavy calcification with multiple 80% plus stenosis right superficial femoral artery Occlusion proximal right posterior Heavy calcification left superficial femoral artery Short segment 90% stenosis mid to distal left superficial femoral artery image 346 Severely attenuated left popliteal artery Occlusion proximal left posterior tibial artery Occlusion mid left anterior tibial artery Occlusion proximal main continuation trunk Impression: Multiple 80% plus stenosis right superficial femoral artery. Occlusion proximal right anterior tibial artery proximal right posterior tibial artery 90% plus stenosis mid to distal left superficial femoral artery Severely attenuated popliteal artery Occlusion proximal left anterior tibial artery Occlusion mid left anterior tibial artery Occlusion proximal left main continuation trunk
--- NOTE | 2025-03-15 11:51 | PD.INTPROG ---
Documentation for date of: 03/15/25 Subjective Subjective Interval history: This is a 49-year-old male admitted to the ICU yesterday evening with acute respiratory failure. Patient apparently had been feeling poorly for the last 48 hours. EMS had been called day prior the patient was noted to be in SVT however refused transport to the ER. Yesterday the patient was again noted to be in SVT and cardioverted. He was also found to be hypoglycemic and hypotensive. He was given several amps of D50 in the ER. He was found to be obtunded with a GCS less than 8 requiring intubation. He also had a prior diagnosis of pneumonia for which she was started on antibiotics as an outpatient. On arrival he was acidotic with a pH 7.03 with both respiratory as well as metabolic acidosis. He was admitted to the ICU for further intervention and evaluation. Overnight the patient's Levophed infiltrated in his right antecubital fossa with instillation of phentolamine. A right sided EJ was placed for Levophed. The patient's been on fentanyl and propofol for the sedation. He is end-stage renal and has had minimal urinary output. His vasopressor requirements have fluctuated. He was severely acidotic with vent adjustments made. He has ongoing mottling of his extremities with digits that are frankly dusky and ischemic in appearance. When sedation is held he does wake up and follow commands. 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, right thigh with area that appears to be cellulitic, L foot with absent pulse, cold and mottled, R UE with cold/dusky/ischemic fingers, mottling over his left lower extremity Vent AC VC Drips levo fent prop Physical Exam Completion Physical Exam Complete?: Yes Objective - Equipment Services Associate Labs 03/16/25 10:15 03/16/25 08:10 Labs: Laboratory Results - last 24 hr 03/14/25 03/14/25 03/14/25 14:15 14:32 14:44 WBC 29.9 H D RBC 3.89 L Hgb 11.9 L Hct 40.2 L MCV 103 H MCH 30.6 MCHC 29.6 L RDW Std Deviation 59.9 H Plt Count 131 L D Neut % (Auto) 63 Lymph % (Auto) 3 L [place] % (Auto) 5 Eos % (Auto) 23 H Baso % (Auto) 0 Neut # (Auto) 18.9 H Lymph # (Auto) 0.8 L [place] # (Auto) 1.4 H Eos # (Auto) 7.0 H Baso # (Auto) 0.0 Immature Gran # (Auto) 1.85 H Absolute Nucleated RBC 0.03 H Immature Gran % 6 H Neutrophils % (Manual) 83 H Monocytes % (Manual) 11 H Eosinophils % (Manual) 1 Myelocytes % 1 H Nucleated RBC % 0 Band Neutrophils 1 Lymphocytes (Manual) 3 L PT INR APTT Puncture Site Left Brachial ABG pH 7.03 L* ABG pCO2 43 ABG pO2 86 ABG HCO3 11 L ABG O2 Saturation 91 ABG Base Excess -19 L FiO2 21 Sodium 140 Potassium 5.5 H Chloride 99 Carbon Dioxide 10.1 L* Anion Gap 31 H BUN 82 H Creatinine 7.2 H* D Estim Creat Clear Calc 13.4 L eGFR 9 L* BUN/Creatinine Ratio 11 L Glucose 9 L* Estimated Ave Glu mg/dL 103 Hemoglobin A1c 5.2 Calculated Osmolality 299 H Lactic Acid Calcium 9.3 Corrected Calcium 9.7 Phosphorus Magnesium 3.0 H Cancelled Total Bilirubin 1.7 H AST > 6000 H* ALT > 3300 H* Alkaline Phosphatase 216 H Total Creatine Kinase Troponin I 1.856 H* Cancelled Total Protein 5.9 Albumin 3.5 Globulin 2.4 Albumin/Globulin Ratio 1.5 Triglycerides Cholesterol LDL Cholesterol, Calc HDL Cholesterol Cholesterol/HDL Ratio Procalcitonin TSH Ur Collection Type Urine Color Urine Clarity Urine pH Ur Specific [place] Urine Protein Urine Glucose (UA) Urine Ketones Urine Blood Urine Nitrite Urine Bilirubin Urine Urobilinogen (Auto) Ur Leukocyte Esterase Urine RBC Urine WBC Ur Squamous Epith Cells Ur Transition Epith Cell Amorphous Crystals Urine Bacteria Urine Opiates Screen Urine Fentanyl Screen Ur Barbiturates Screen U Amphetamin/Meth Scrn U Benzodiazepines Scrn U Cocaine Metab Screen U Marijuana (THC) Screen Blood Type Antibody Screen Blood Bank Wristband ID 03/14/25 03/14/25 03/14/25 16:12 16:34 16:44 WBC RBC Hgb Hct MCV MCH MCHC RDW Std Deviation Plt Count Neut % (Auto) Lymph % (Auto) [place] % (Auto) Eos % (Auto) Baso % (Auto) Neut # (Auto) Lymph # (Auto) [place] # (Auto) Eos # (Auto) Baso # (Auto) Immature Gran # (Auto) Absolute Nucleated RBC Immature Gran % Neutrophils % (Manual) Monocytes % (Manual) Eosinophils % (Manual) Myelocytes % Nucleated RBC % Band Neutrophils Lymphocytes (Manual) PT INR APTT Puncture Site Right Brachial ABG pH 7.04 L* ABG pCO2 50 H ABG pO2 128 H D ABG HCO3 13 L ABG O2 Saturation 97 ABG Base Excess -17 L FiO2 21 Sodium Potassium Chloride Carbon Dioxide Anion Gap BUN Creatinine Estim Creat Clear Calc eGFR BUN/Creatinine Ratio Glucose Estimated Ave Glu mg/dL Hemoglobin A1c Calculated Osmolality Lactic Acid 15.0 H* Calcium Corrected Calcium Phosphorus Magnesium Total Bilirubin AST ALT Alkaline Phosphatase Total Creatine Kinase Troponin I Total Protein Albumin Globulin Albumin/Globulin Ratio Triglycerides Cholesterol LDL Cholesterol, Calc HDL Cholesterol Cholesterol/HDL Ratio Procalcitonin 6.13 H TSH Ur Collection Type Catheter Urine Color Yellow Urine Clarity Turbid A Urine pH 6.5 Ur Specific [place] 1.026 Urine Protein 3+ A Urine Glucose (UA) 3+ A Urine Ketones Negative Urine Blood 2+ A Urine Nitrite Negative Urine Bilirubin Negative Urine Urobilinogen (Auto) Negative Ur Leukocyte Esterase Positive Urine RBC 12 H Urine WBC 36 H Ur Squamous Epith Cells 9 H Ur Transition Epith Cell 7 H Amorphous Crystals Present A Urine Bacteria None Urine Opiates Screen Positive A Urine Fentanyl Screen Negative Ur Barbiturates Screen Negative U Amphetamin/Meth Scrn Positive A U Benzodiazepines Scrn Negative U Cocaine Metab Screen Negative U Marijuana (THC) Screen Positive A Blood Type Antibody Screen Blood Bank Wristband ID 03/14/25 03/14/25 03/14/25 17:35 18:41 18:53 WBC RBC Hgb 11.2 L Hct 37.7 L MCV MCH MCHC RDW Std Deviation Plt Count Neut % (Auto) Lymph % (Auto) [place] % (Auto) Eos % (Auto) Baso % (Auto) Neut # (Auto) Lymph # (Auto) [place] # (Auto) Eos # (Auto) Baso # (Auto) Immature Gran # (Auto) Absolute Nucleated RBC Immature Gran % Neutrophils % (Manual) Monocytes % (Manual) Eosinophils % (Manual) Myelocytes % Nucleated RBC % Band Neutrophils Lymphocytes (Manual) PT INR APTT Puncture Site Right Brachial ABG pH 7.10 L* ABG pCO2 46 ABG pO2 57 L* D ABG HCO3 14 L ABG O2 Saturation 78 L ABG Base Excess -15 L FiO2 75 Sodium 138 Potassium 5.4 H Chloride 98 Carbon Dioxide 13.3 L* Anion Gap 27 H BUN 83 H Creatinine 7.0 H* Estim Creat Clear Calc 13.8 L eGFR 9 L* BUN/Creatinine Ratio 12 Glucose 419 H* D Estimated Ave Glu mg/dL Hemoglobin A1c Calculated Osmolality 318 H Lactic Acid 14.0 H* Calcium 8.2 L Corrected Calcium 8.8 Phosphorus Magnesium Total Bilirubin 1.7 H AST > 6000 H* ALT > 3300 H* Alkaline Phosphatase 227 H Total Creatine Kinase 250 H Troponin I 2.568 H* D Total Protein 5.2 L Albumin 3.2 L Globulin 2.0 L Albumin/Globulin Ratio 1.6 Triglycerides Cholesterol LDL Cholesterol, Calc HDL Cholesterol Cholesterol/HDL Ratio Procalcitonin TSH Ur Collection Type Urine Color Urine Clarity Urine pH Ur Specific [place] Urine Protein Urine Glucose (UA) Urine Ketones Urine Blood Urine Nitrite Urine Bilirubin Urine Urobilinogen (Auto) Ur Leukocyte Esterase Urine RBC Urine WBC Ur Squamous Epith Cells Ur Transition Epith Cell Amorphous Crystals Urine Bacteria Urine Opiates Screen Urine Fentanyl Screen Ur Barbiturates Screen U Amphetamin/Meth Scrn U Benzodiazepines Scrn U Cocaine Metab Screen U Marijuana (THC) Screen Blood Type A Positive Antibody Screen NEGATIVE Blood Bank Wristband ID Yes 03/14/25 03/14/25 03/14/25 20:37 21:20 22:42 WBC RBC Hgb Hct MCV MCH MCHC RDW Std Deviation Plt Count Neut % (Auto) Lymph % (Auto) [place] % (Auto) Eos % (Auto) Baso % (Auto) Neut # (Auto) Lymph # (Auto) [place] # (Auto) Eos # (Auto) Baso # (Auto) Immature Gran # (Auto) Absolute Nucleated RBC Immature Gran % Neutrophils % (Manual) Monocytes % (Manual) Eosinophils % (Manual) Myelocytes % Nucleated RBC % Band Neutrophils Lymphocytes (Manual) PT INR APTT Puncture Site Right Radial ABG pH 7.21 L D ABG pCO2 32 D ABG pO2 116 H D ABG HCO3 13 L ABG O2 Saturation 97 ABG Base Excess -14 L FiO2 75 Sodium Potassium Chloride Carbon Dioxide Anion Gap BUN Creatinine Estim Creat Clear Calc eGFR BUN/Creatinine Ratio Glucose Estimated Ave Glu mg/dL Hemoglobin A1c Calculated Osmolality Lactic Acid 22.0 H* 23.0 H* Calcium Corrected Calcium Phosphorus Magnesium Total Bilirubin AST ALT Alkaline Phosphatase Total Creatine Kinase Troponin I 3.528 H* D Total Protein Albumin Globulin Albumin/Globulin Ratio Triglycerides Cholesterol LDL Cholesterol, Calc HDL Cholesterol Cholesterol/HDL Ratio Procalcitonin TSH Ur Collection Type Urine Color Urine Clarity Urine pH Ur Specific [place] Urine Protein Urine Glucose (UA) Urine Ketones Urine Blood Urine Nitrite Urine Bilirubin Urine Urobilinogen (Auto) Ur Leukocyte Esterase Urine RBC Urine WBC Ur Squamous Epith Cells Ur Transition Epith Cell Amorphous Crystals Urine Bacteria Urine Opiates Screen Urine Fentanyl Screen Ur Barbiturates Screen U Amphetamin/Meth Scrn U Benzodiazepines Scrn U Cocaine Metab Screen U Marijuana (THC) Screen Blood Type Antibody Screen Blood Bank Wristband ID 03/15/25 03/15/25 03/15/25 01:22 03:37 05:07 WBC RBC Hgb 12.2 L Hct 40.1 L MCV MCH MCHC RDW Std Deviation Plt Count Neut % (Auto) Lymph % (Auto) [place] % (Auto) Eos % (Auto) Baso % (Auto) Neut # (Auto) Lymph # (Auto) [place] # (Auto) Eos # (Auto) Baso # (Auto) Immature Gran # (Auto) Absolute Nucleated RBC Immature Gran % Neutrophils % (Manual) Monocytes % (Manual) Eosinophils % (Manual) Myelocytes % Nucleated RBC % Band Neutrophils Lymphocytes (Manual) PT INR APTT Puncture Site Right Radial ABG pH 7.41 D ABG pCO2 31 L ABG pO2 74 L D ABG HCO3 20 ABG O2 Saturation 95 ABG Base Excess -4 L FiO2 35 Sodium 137 Potassium 6.0 H D Chloride 97 L Carbon Dioxide 14.4 L* Anion Gap 26 H BUN 86 H Creatinine 7.1 H* Estim Creat Clear Calc 13.6 L eGFR 9 L* BUN/Creatinine Ratio 12 Glucose [address] Glu mg/dL Hemoglobin A1c Calculated Osmolality 311 H Lactic Acid 13.3 H* 23.0 H* Calcium 7.6 L Corrected Calcium 8.2 L Phosphorus Magnesium Total Bilirubin 2.0 H AST TNP ALT TNP Alkaline Phosphatase 277 H D Total Creatine Kinase Troponin I 5.920 H* D Total Protein 5.8 Albumin 3.3 L Globulin 2.5 Albumin/Globulin Ratio 1.3 Triglycerides Cholesterol LDL Cholesterol, Calc HDL Cholesterol Cholesterol/HDL Ratio Procalcitonin TSH Ur Collection Type Urine Color Urine Clarity Urine pH Ur Specific [place] Urine Protein Urine Glucose (UA) Urine Ketones Urine Blood Urine Nitrite Urine Bilirubin Urine Urobilinogen (Auto) Ur Leukocyte Esterase Urine RBC Urine WBC Ur Squamous Epith Cells Ur Transition Epith Cell Amorphous Crystals Urine Bacteria Urine Opiates Screen Urine Fentanyl Screen Ur Barbiturates Screen U Amphetamin/Meth Scrn U Benzodiazepines Scrn U Cocaine Metab Screen U Marijuana (THC) Screen Blood Type Antibody Screen Blood Bank Wristband ID 03/15/25 03/15/25 03/15/25 06:01 07:59 09:43 WBC 28.6 H RBC 4.09 L Hgb 12.4 L Hct 39.5 L MCV 97 MCH 30.3 MCHC 31.4 RDW Std Deviation 54.6 H Plt Count 83 L D Neut % (Auto) 85 H Lymph % (Auto) 4 L [place] % (Auto) 4 Eos % (Auto) 0 Baso % (Auto) 0 Neut # (Auto) 24.2 H Lymph # (Auto) 1.0 [place] # (Auto) 1.3 H Eos # (Auto) 0.0 Baso # (Auto) 0.0 Immature Gran # (Auto) 2.02 H Absolute Nucleated RBC 0.25 H Immature Gran % 7 H Neutrophils % (Manual) Monocytes % (Manual) Eosinophils % (Manual) Myelocytes % Nucleated RBC % 1 H Band Neutrophils Lymphocytes (Manual) PT > 63.0 H* D INR APTT 60.7 H D Puncture Site ABG pH ABG pCO2 ABG pO2 ABG HCO3 ABG O2 Saturation ABG Base Excess FiO2 Sodium 137 Potassium 4.8 D Chloride 98 Carbon Dioxide 18.8 L Anion Gap 20 H BUN 90 H Creatinine 7.3 H* Estim Creat Clear Calc 15.5 L eGFR 8 L* BUN/Creatinine Ratio [address]ucose [address] Glu mg/dL 108 Hemoglobin A1c 5.4 Calculated Osmolality 310 H Lactic Acid 8.0 H* 6.4 H* 2.8 H Calcium 6.8 L* Corrected Calcium 7.3 L Phosphorus 10.1 H Magnesium 2.4 Total Bilirubin 2.3 H AST > 6000 H* ALT > 3300 H* Alkaline Phosphatase 292 H Total Creatine Kinase Troponin I 7.899 H* D 7.704 H* Total Protein 5.9 Albumin 3.4 L Globulin 2.5 Albumin/Globulin Ratio 1.4 Triglycerides 230 H Cholesterol 104 L LDL Cholesterol, Calc 44 HDL Cholesterol 14 L Cholesterol/HDL Ratio 7.4 H Procalcitonin TSH 2.13 Ur Collection Type Urine Color Urine Clarity Urine pH Ur Specific [place] Urine Protein Urine Glucose (UA) Urine Ketones Urine Blood Urine Nitrite Urine Bilirubin Urine Urobilinogen (Auto) Ur Leukocyte Esterase Urine RBC Urine WBC Ur Squamous Epith Cells Ur Transition Epith Cell Amorphous Crystals Urine Bacteria Urine Opiates Screen Urine Fentanyl Screen Ur Barbiturates Screen U Amphetamin/Meth Scrn U Benzodiazepines Scrn U Cocaine Metab Screen U Marijuana (THC) Screen Blood Type Antibody Screen Blood Bank Wristband ID Assessment & Plan Additional Assessment Additional Assessment: In summary this is a 49yo M admitted to the ICU for shock and acute resp failure a/p [employer] Acute Encephalopathy- intubated and sedated 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 some LVH and some septal flattening on parasternal short view, no pericardial effusion no evidence of obstructive etiology noted and not felt to have large PE. contractility appears adequate at this time and not felt to have a current cardiogenic component. received minimal IVF on arrival and therefore given additional volume overnight. will need cheeta for further hemodynamics and ? distributive v hypovolemic in etiology. on broad spectrum abx for infectious etiology possibility . will check a formal echo and SvO2 ? acute v chronic limb ischemia- obtain aorta with runoff to eval, heparin as needed Tropinemia- type 1 v type 2 however on EKG there are new ST depressions in V4 V5, pt has pTT >60, start ACS heparin protocol/ASA/plavix though given current pTT will not need much heparin with goal APTT of ~70. will obtain cardiology eval. Resp Acute Hypoxic resp failure- intubated and on MV with high Ve - ween as able and when appropriate - CXR with elevated R hemidiaphragm vs RLL collapse -> will need bronch PNA- on abx, fu on CX Renal ESRD on HD AGMA- LA of 23 overnight but down to 3 at this time - severe metabolic acidosis with resp acidosis on original ABG HypoCa- given 1 amp of Ca++ HyperK- resolved GI Hepatitis- baseline is nl, unclear etiology, check viral panel, may be 2/2 hypotension v hypoxia, check a RUQ abd us with doppler to eval for any poss thrombosis GI proph- PPI Endo Diabetes-has had several episodes of hypoglycemia requiring pushes of D50. A few of these times however when a glucose is checked from the patient's central line there is at least 100 point difference. This is likely because his extremities are dusky and mottled. Heme Leukocytosis- L shift present, slight improvement from arrival Anemia- near baseline Thrombocytopenia- has had a drop in PLT since 2023 however current drop is more prominent - no active bleeding therefore no need for transfusion Coagulopathy- in the setting of severe liver dysfunction ID Cellulitis- on abx, fu on cx case d/w ICU team d/w in detail labs, imaging, records reviewed ~70cc min required for evaluation, exam, review, intervention, discussion and formulation of plan of care for this critically ill patient with respiratory failure and shock at high risk for further and ongoing decompensation. Provider Notation Provider Notation: Although this document has been carefully reviewed, there may still be some phonetic and other typographical errors. These errors are purely grammatical due to imperfections in the software program and should not be construed in any way to compromise the substance of the patient's medical care during this visit. Thank you for the opportunity and privilege in assisting you with this patient's care and management.
[2025-03-15 12:36] LABS: Base Excess, Venous -1 (-3-3); O2 Saturation, Venous 68 % (96-97); PCO2, Venous 34 mmHg (36-56); PO2, Venous 37 mmHg (15-58); pH, Venous 7.43 (7.33-7.66)
[2025-03-15 12:36] LABS: Lactic Acid, 3 HR 3.1 mMol/L (0.4-2.0)
[2025-03-15 12:42] LABS: Basophils # (Auto) 0.1 Thou/mm3 (0.0-0.2); Basophils % (Auto) 1 % (0-2.5); Eosinophils % (Auto) 0 % (0-10); Hematocrit 32.4 % (41.0-53.0); Hemoglobin 10.7 g/dL (13.5-16.0); Immature Granulocytes % (Auto) 8 % (0-0); Immature Granulocytes Auto 1.75 Thou/mm3 (0.00-0.00); Lymphocytes % (Auto) 4 % (10-50); Mean Corpuscular Hemoglobin 30.3 pg (25.0-35.0); Mean Corpuscular Volume 92 fL (80-100); Monocytes # (Auto) 1.1 Thou/mm3 (0.0-0.8); Monocytes % (Auto) 5 % (0-12); Neutrophils # (Auto) 18.4 Thou/mm3 (1.8-7.7); Neutrophils % (Auto) 82 % (37-80); Nucleated Red Blood Cell # 0.19 Thou/mm3 (0.00-0.00); Nucleated Red Blood Cell % 1 /100 WBC (0); RDW Standard Deviation 50.3 fL (35.1-43.9); Red Blood Count 3.53 Miln/mm3 (4.50-5.90); White Blood Count 22.4 Thou/mm3 (3.8-10.6)
[2025-03-15 12:49] LABS: Platelet Count 73 Thou/mm3 (140-440)
[2025-03-15 12:50] LABS: Slide Review Platelets confirmed
--- NOTE | 2025-03-15 12:50 | PC.NURSE ---
Pt's Sophia called in regards to CT screening. Per pt's Mr. Wright does have a reaction to contrast and does not do well with it. She is unable to recall what reaction but knows that patient has had an episode with IV contrast. MD Putnam made aware. Per MD Putnam patient is ok to continue with CT with contrast once 60mg of Solumedrol IVP is given.
[2025-03-15 12:52] LABS: Reflex Lactate? Y
[2025-03-15 13:20] LABS: Hepatitis A Antibody IgM Non Reactive (Non React); Hepatitis B Core Antibody IgM Non Reactive (Non React); Hepatitis B Surface Antigen Non Reactive (Non React); Hepatitis C Antibody Non Reactive (Non React)
[2025-03-15] MEDS: Norepinephrine/D5W 8mg/250ml 8 MG/250 ML BAG 13.097 MG IV (13:40)
[2025-03-15] MEDS: fentaNYL 2,500 MCG/250 ML BAG 2,500 MCG/250 ML BAG 20 MCG IV (13:40)
--- NOTE | 2025-03-15 13:40 | PD.INTPROC ---
Procedures Procedure Date / Time 03/15/25 1340 Central Line Placement Left IJ: Indication(s): poor, or inadequate peripheral venous access and other (TriFlow for HD) Informed consent obtained: obtained from surrogate decision maker Time out done, and the following verified: correct patient, side and site, procedure, patient position and implants and/or equipment Patient placed on monitor/pulse ox: Yes Hand Hygiene: alcohol-based hand rub Max Sterile Barrier Techniques used: cap, mask, sterile gown, sterile gloves and sterile full body drape Central line prep: Chlorhexidine scrub and sterile drapes applied Ultrasound used for placement: Yes Sterile Technique if Ultrasound used, including sterile gel: yes Central line lumen inserted: triple Post procedure: sutured in place, good blood return, all ports aspirated, flushed, capped and sterile dressing applied Post procedure x-ray: tip of catheter in good position and no pneumothorax seen Patient tolerated procedure: well and no complications EBL(ml): 5 Complications: none Procedure comment: Tri flow placed
[2025-03-15 13:44] LABS: Fibrinogen 140 mg/dL (175-375); Partial Thromboplastin Time 63.2 Seconds (22.0-36.0)
[2025-03-15 13:54] LABS: Prothrombin Time > 63.0 Seconds (9.0-12.2)
[2025-03-15 14:05] LABS: D-Dimer 3480 ng/mL (<600)
--- NOTE | 2025-03-15 14:44 | ESCONSULT_ITS ---
<Statement entered by Yanci Villalobos MD - 03/17/25 18:19> I personally examined the patient in the intensive care unit patient in critical condition in ICU admitted the hospital multiple problems hypotension possible cardiogenic shock versus septic shock multiple medical problems some critical ED patient patient has significant troponin elevation up to 10.0 peaked at EKG showed nonspecific ST changes we will get a cardiac echo for assessment of LV wall motion abnormalities and further risk stratification for now patient is too unstable do not think he had acute myocardial infarction as a primary cause of his problems hence we will manage conservatively at this point until further information and depending on the progress of the patient over the next 48 hours patient does have some arrhythmias will monitor for A-fib RVR. Patient is clinically major condition intensive care and I spent more than 40 minutes going over all the questions concerns with the family members evaluated the patient with resident physician PGY 3 Cardiology agree with the treatment plan recommendation for now no plans for any coronary angiogram or cardiac catheterization. Prognosis poor HPI Data of Consult Requesting Physician: Aileen Fountain MD Admitting Provider: Yessi Putnam MD Attending Provider: Aileen Fountain MD Primary Care Provider: Margarita Carolina PA-C Consult Narrative History of present illness: 49-year-old male with past medical history of DM2, hypertension, ESRD (HD ), HFpEF (EF 55% on 2021), and right BKA due to osteomyelitis was admitted to the ICU on 03/14/2025 after coming to the ED via ambulance due to altered mental status. Given patient's mental status and being intubated most of the history was taken from chart review and from patient's who was at bedside. Patient's stated that he was in the ER around 3 days ago due to some substernal chest pain and shortness of breath, but he was discharged with some antibiotics that he was told he had some pneumonia. She mentioned that 2 days ago in the evening he again had some shortness of breath and was kind of confused, but he did not want to come into the hospital at this time. Today in the morning she states that he was less responsive and that he was more cyanotic. This time she decided to call EMS who brought the patient to the ED. As per chart review patient was in SVT when EMS arrived therefore he was shocked once and he converted to sinus rhythm. He was also noticed to be very hypoglycemic when he came into the ED with a blood glucose of around 23 therefore he was given multiple amps of D50. ED physician started patient on diltiazem drip. Currently the patient is in the ICU. Diltiazem drip is off. Patient is currently on broad-spectrum antibiotics to cover pneumonia. Patient is on nor epi, vasopressin. Patient has a central line and a Tri flow catheter for CRRT due to ESRD. Patient seen at bedside noted to have cold extremities. ICU team concern for lower limb ischemia of the left lower extremity. No pulses were able to be felt. Cardiology consulted for the management of potential cardiogenic shock in the setting of HFrEF with ESRD. cc:: cc: Aileen Fountain MD Review of Systems Review of Systems ROS Unobtainable: due to endotracheal tube Exam Vital Signs Temp Pulse Resp BP Pulse Ox O2 Del Method O2 Flow Rate 98.8 F 86 34 H 101/65 97 Mechanical Ventilation 50 03/15/25 12:00 03/15/25 12:55 03/14/25 19:00 03/15/25 12:55 03/15/25 12:55 03/14/25 18:09 03/14/25 18:09 FiO2 100 03/15/25 12:00 Narrative Exam General: Mechanically ventilated, responsive to pain unable to move lower extremities Eyes: Pupils reactive to light, anicteric. Ears: No visible ear discharge Nose: No visible nasal discharge. Mouth/Throat: Moist mucous membranes, no redness, no lesions, coffee-ground material from NG tube not appreciated today. Neck: Neck supple, no cervical lymphadenopathy. Lungs: Clear CHRISTIANO in upper lobes, but decreased in lower lobes still present. Cardio: Normal S1/S2, tachycardic no murmurs, no JVD Abdomen: Soft, non-tender, no palpable masses, peristalsis present, no guarding or rebound, swollen in the lower abdomen and some mild ascites. Extremities: Right BKA with cyanotic changes at the stump, left lower extremity swollen all the way up to the mid thigh 2+, cyanotic changes of the left toes, pulses were very weak yesterday and today are not present on the left lower extremity. Right thigh has indurated and erythematous demarcated rash on the medial aspect, purpuric discoloration on the lower lateral aspect of the right thigh noticed today. Skin: Cold and wet. More purple discoloration on the right upper extremity digits compared to the left extremity digits. Skin injury with purple discoloration in the lateral right thigh, indurated redness demarcated rash in the inner right thigh, cyanotic left toes Neuro: Responsive to pain, moving all extremities, following commands, mechanically ventilated Results Labs 03/15/25 12:14 03/15/25 06:01 Labs: Short CBC 03/14/25 03/14/25 03/15/25 Range/Units 14:32 18:41 01:22 WBC 29.9 H D (3.8-10.6) Thou/mm3 Hgb 11.9 L 11.2 L 12.2 L (13.5-16.0) g/dL Hct 40.2 L 37.7 L 40.1 L (41.0-53.0) % Plt Count 131 L D (140-440) Thou/mm3 03/15/25 03/15/25 Range/Units 06:01 12:14 WBC 28.6 H 22.4 H D (3.8-10.6) Thou/mm3 Hgb 12.4 L 10.7 L (13.5-16.0) g/dL Hct 39.5 L 32.4 L (41.0-53.0) % Plt Count 83 L D 73 L (140-440) Thou/mm3 BMP 03/14/25 03/14/25 03/15/25 14:15 17:35 01:22 Sodium 140 138 137 Potassium 5.5 H 5.4 H 6.0 H D Chloride 99 98 97 L Carbon Dioxide 10.1 L* 13.3 L* 14.4 L* BUN 82 H 83 H 86 H Creatinine 7.2 H* D 7.0 H* 7.1 H* Glucose 9 L* 419 H* D 295 H D Calcium 9.3 8.2 L 7.6 L 03/15/25 06:01 Sodium 137 Potassium 4.8 D Chloride 98 Carbon Dioxide 18.8 L BUN 90 H Creatinine 7.3 H* Glucose 263 H Calcium 6.8 L* Cardiac Enzymes 03/14/25 03/14/25 03/14/25 Range/Units 14:15 14:32 17:35 Total Creatine Kinase 250 H (34-171) U/L Troponin I 1.856 H* Cancelled 2.568 H* D (0.0-0.045) ng/mL 03/14/25 03/15/25 03/15/25 Range/Units 22:42 01:22 06:01 Total Creatine Kinase (34-171) U/L Troponin I 3.528 H* D 5.920 H* D 7.899 H* D (0.0-0.045) ng/mL 03/15/25 Range/Units 09:43 Total Creatine Kinase (34-171) U/L Troponin I 7.704 H* (0.0-0.045) ng/mL Liver Function 03/14/25 03/14/25 03/15/25 Range/Units 14:15 17:35 01:22 Total Bilirubin 1.7 H 1.7 H 2.0 H (0.3-1.2) mg/dL AST > 6000 H* > 6000 H* TNP (0-34) U/L ALT > 3300 H* > 3300 H* TNP (10-49) U/L Alkaline Phosphatase 216 H 227 H 277 H D (46-116) U/L Albumin 3.5 3.2 L 3.3 L (3.5-5.0) gm/dL 03/15/25 Range/Units 06:01 Total Bilirubin 2.3 H (0.3-1.2) mg/dL AST > 6000 H* (0-34) U/L ALT > 3300 H* (10-49) U/L Alkaline Phosphatase 292 H (46-116) U/L Albumin 3.4 L (3.5-5.0) gm/dL Urine 03/14/25 Range/Units 16:12 Urine Color Yellow (Lt Yel-Yel) Urine Clarity Turbid A (Clear/Hazy) Urine pH 6.5 (5.0-7.0) Ur Specific [place] 1.026 (1.001-1.035) Urine Protein 3+ A (Neg - Trace) Urine Glucose (UA) 3+ A (Negative) ABG Interpretation ABG results: 03/14/25 03/14/25 03/14/25 14:44 16:44 18:53 ABG pH 7.03 L* 7.04 L* 7.10 L* ABG pCO2 43 50 H 46 ABG pO2 86 128 H D 57 L* D ABG HCO3 11 L 13 L 14 L ABG O2 Saturation 91 97 78 L ABG Base Excess -19 L -17 L -15 L VBG pH VBG pCO2 VBG pO2 VBG Base Excess 03/14/25 03/15/25 03/15/25 21:20 05:07 12:28 ABG pH 7.21 L D 7.41 D ABG pCO2 32 D 31 L ABG pO2 116 H D 74 L D ABG HCO3 13 L 20 ABG O2 Saturation 97 95 ABG Base Excess -14 L -4 L VBG pH 7.43 VBG pCO2 34 L VBG pO2 37 VBG Base Excess -1 Quality Measures Quality Measures none Medications Home Medications and Allergies Home Medications ?Medication ?Instructions ?Recorded ?Confirmed ?Type insulin aspart U-100 100 unit/mL 12 unit subcut BID 06/26/23 History (3 mL) subcutaneous pen (Novolog FlexPen U-100 Insulin aspart) cyclobenzaprine 10 mg tablet 10 mg PO HS 06/19/23 08/0 01/17 History loperamide 2 mg capsule 2 mg PO Q6H PRN Diarrhea 06/26/23 History ibuprofen 800 mg tablet 800 mg PO Q8H PRN Pain 06/2606/26/23 History Allergies Allergy/AdvReac Type Severity Reaction Status Date / Time No Known Allergies Allergy Verified 06/27/23 12:19 Visit Medications Acetaminophen (Acetaminophen Supp 650 Mg Supp) 650 mg NE Q6HR PRN PRN Reason: FEVER>101.5 Stop: 04/13/25 17:30 Aspirin (Aspirin 81 Mg Chew) 81 mg GT QDAY [place] Stop: 04/15/25 08:59 Clopidogrel Bisulfate (Clopidogrel Bisulfate 75 Mg Tablet) 75 mg GT QDAY [place] Stop: 04/14/25 10:29 Dextrose (Dextrose 50%-Water Inj 50 Ml Syringe) 25 ml IV Q15MIN PRN PRN Reason: BG 50-70 responsive npo pt Stop: 04/13/25 20:37 Dextrose (Dextrose 50%-Water Inj 50 Ml Syringe) 50 ml IV Q15MIN PRN PRN Reason: BG <50 OR BG <70 & pt unresponsive Stop: 04/13/25 20:37 Glucagon (Glucagon Inj 1 Mg Vial) 1 mg IM Q15MIN PRN PRN Reason: BG <70, and no IV access Norepinephrine/Dextrose (Levophed In D5w 8mg/250ml) 8 mg in 250 mls @ 9.355 mls/hr IV .Q24H PRN; Protocol PRN Reason: PER PROTOCOL Stop: 04/13/25 19:42 Last Titration: 03/15/25 09:25 Dose: 0.07 mcg/kg/min, 13.097 mls/hr Vasopressin/Sodium Chloride (Vasostrict/Ns Ivpb) 20 unit in 100 mls @ 9 mls/hr IV .Q11H7M PRN; Protocol PRN Reason: PER PROTOCOL Stop: 04/13/25 20:32 Last Titration: 03/14/25 21:45 Dose: 0 unit/min, 0 mls/hr Propofol (Diprivan Ivpb) 1,000 mg in 100 mls @ 2.994 mls/hr IV .Q24H PRN; Protocol PRN Reason: PER PROTOCOL Stop: 04/13/25 21:06 Last Admin: 03/15/25 09:25 Dose: 20 mcg/kg/min, 11.975 mls/hr Fentanyl Citrate (Sublimaze Inj 2,500 Mcg/250 Ml Bag) 2,500 mcg in 250 mls @ 2.5 mls/hr IV .Q24H PRN; Protocol PRN Reason: PER PROTOCOL Stop: 03/19/25 21:07 Last Titration: 03/15/25 09:00 Dose: 200 mcg/hr, 20 mls/hr Piperacillin Sod/Tazobactam (Sod 4.5 gm/ Sodium Chloride) 100 mls @ 25 mls/hr IV Q12HR [place] Stop: 03/22/25 08:59 Heparin Sodium/Dextrose (Heparin In D5w Ivpb) 25,000 unit in 250 mls @ 10 mls/hr IV .Q24H [place]; Protocol Stop: 03/29/25 11:29 Insulin Human Lispro (Insulin Lispro (Admelog) 1 Unit/0.01 Ml Unit) 0 unit SC Q6HR [place]; Protocol Stop: 04/13/25 20:44 Last Admin: 03/15/25 13:09 Dose: Not Given Ondansetron HCl (Ondansetron Inj 2 Mg/Ml Inj 2 Ml) 4 mg IV Q6H PRN; Protocol PRN Reason: NAUSEA OR VOMITING Stop: 04/13/25 17:30 Pantoprazole Sodium (Pantoprazole Inj 40 Mg Vial) 40 mg IVP BID [facility] Stop: 04/13/25 20:59 Last Admin: 03/15/25 10:07 Dose: 40 mg Pharmacy Consult (Vancomycin Pharmacy To Dose 1 Each Each) 1 each IV QDAY [facility] Stop: 04/13/25 17:44 Last Admin: 03/15/25 08:50 Dose: Not Given Discontinued Medications Albuterol (Albuterol Rt 2.5 Mg/3 Ml Nebu) 2.5 mg INH 5 TIMES DAILY [place] Stop: 04/13/25 17:59 Albuterol (Albuterol Rt 2.5 Mg/0.5 Ml Nebu) 2.5 mg INH 5 TIMES DAILY [facility] Stop: 04/13/25 17:59 Last Admin: 03/14/25 18:06 Dose: 2.5 mg Aspirin (Aspirin Ec 81 Mg Tabec) 81 mg PO QDAY [facility] Stop: 04/14/25 10:29 Last Admin: 03/15/25 11:11 Dose: Not Given Aspirin (Aspirin 81 Mg Chew) 81 mg GT QDAY [facility] Stop: 04/14/25 10:29 Aspirin (Aspirin 325 Mg Tablet) 325 mg GT NOW ONE Stop: 03/15/25 11:37 Calcium Gluconate (Calcium Gluconate 10% Inj 1 Gm/10 Ml Vial) 1 gm IV X1 ONE Stop: 03/15/25 04:13 Last Admin: 03/15/25 04:34 Dose: 1 gm Clopidogrel Bisulfate (Clopidogrel Bisulfate 75 Mg Tablet) 75 mg PO QDAY [facility] Stop: 04/14/25 10:29 Last Admin: 03/15/25 11:11 Dose: Not Given Dextrose (Dextrose 50%-Water Inj 50 Ml Syringe) 50 ml IV X1 ONE Stop: 03/14/25 14:19 Last Admin: 03/14/25 14:22 Dose: 50 ml Dextrose (Dextrose 50%-Water Inj 50 Ml Syringe) 50 ml IV X1 ONE Stop: 03/14/25 14:20 Last Admin: 03/14/25 14:22 Dose: 50 ml Dextrose (Dextrose 50%-Water Inj 50 Ml Syringe) 50 ml IV X1 ONE Stop: 03/14/25 14:30 Last Admin: 03/14/25 14:32 Dose: 50 ml Dextrose (Dextrose 50%-Water Inj 50 Ml Syringe) 50 ml IV X1 ONE Stop: 03/14/25 14:53 Last Admin: 03/14/25 14:54 Dose: 50 ml Dextrose (Dextrose 50%-Water Inj 50 Ml Syringe) 100 ml IV X1 ONE Stop: 03/14/25 15:23 Last Admin: 03/14/25 15:26 Dose: 100 ml Dextrose (Dextrose 50%-Water Inj 50 Ml Syringe) 50 ml IV X1 ONE Stop: 03/14/25 16:17 Last Admin: 03/14/25 16:17 Dose: 50 ml Dextrose (Dextrose 50%-Water Inj 50 Ml Syringe) 25 ml IV Q15MIN PRN PRN Reason: BG 50-70 responsive npo pt Stop: 04/13/25 17:35 Dextrose (Dextrose 50%-Water Inj 50 Ml Syringe) 50 ml IV Q15MIN PRN PRN Reason: BG <50 OR BG <70 & pt unresponsive Stop: 04/13/25 17:35 Dextrose (Dextrose 50%-Water Inj 50 Ml Syringe) 25 ml IV X1 ONE Stop: 03/15/25 04:24 Last Admin: 03/15/25 04:34 Dose: 25 ml Diltiazem HCl (Diltiazem Inj 5 Mg/Ml Vial 5 Ml) 20 mg IV X1 ONE Stop: 03/14/25 14:28 Last Admin: 03/14/25 14:35 Dose: 20 mg Etomidate (Etomidate Inj 2 Mg/Ml Vial 10 Ml) 20 mg IVP X1 ONE Stop: 03/14/25 15:21 Last Admin: 03/14/25 15:30 Dose: 20 mg Glucagon (Glucagon Inj 1 Mg Vial) 1 mg IM Q15MIN PRN PRN Reason: BG <70, and no IV access Heparin Sodium (Porcine) (Heparin Sod Inj 5000 Unit/Ml Vial) 3,000 unit 30 unit/kg (3000 unit) IV X1 ONE; Protocol Stop: 03/15/25 05:05 Last Admin: 03/15/25 11:30 Dose: Not Given Diltiazem HCl (Diltiazem In D5w 125 Mg) 125 mg in 125 mls @ 5 mls/hr IV .Q24H [place]; Protocol Stop: 04/13/25 14:27 Last Admin: 03/14/25 14:43 Dose: 5 mg/hr, 5 mls/hr Dextrose (D10w 1000 Ml) 250 mls @ 150 mls/hr IV Q15M PRN PRN Reason: HYPOGLYCEMIA Stop: 04/13/25 14:54 Dextrose (D10w) 500 mls @ 150 mls/hr IV .Q3H20M [place] Stop: 04/13/25 14:59 Last Admin: 03/15/25 07:09 Dose: Not Given Ceftriaxone Sodium 2 gm/ (Sodium Chloride) 50 mls @ 100 mls/hr IV X1 ONE Stop: 03/14/25 16:37 Last Infusion: 03/14/25 16:49 Dose: Infused Azithromycin 500 mg/ Sodium (Chloride) 250 mls @ 250 mls/hr IV X1 ONE Stop: 03/14/25 17:08 Last Infusion: 03/14/25 18:00 Dose: Infused Lactated Ringer's (Lactated Ringers) 1,000 mls @ 999 mls/hr IV .Q1H1M ONE Stop: 03/14/25 18:54 Last Admin: 03/14/25 18:30 Dose: 999 mls/hr Piperacillin Sod/Tazobactam (Sod 4.5 gm/ Sodium Chloride) 100 mls @ 200 mls/hr IV X1 ONE Stop: 03/14/25 20:29 Last Admin: 03/14/25 22:56 Dose: 200 mls/hr Vancomycin HCl 1,500 mg/ (Dextrose) 500 mls @ 197.998 mls/hr IV X1 ONE Stop: 03/14/25 20:46 Last Admin: 03/14/25 22:52 Dose: Not Given Lactated Ringer's (Lactated Ringers) 500 mls @ 999 mls/hr IV .Q31M ONE Stop: 03/14/25 20:45 Last Admin: 03/14/25 20:00 Dose: 999 mls/hr Heparin Sodium/Dextrose (Heparin In D5w Ivpb) 25,000 unit in 250 mls @ 10 mls/hr IV .Q24H [facility]; Protocol Stop: 03/29/25 05:14 Last Admin: 03/15/25 11:30 Dose: Not Given Piperacillin Sod/Tazobactam (Sod 4.5 gm/ Sodium Chloride) 100 mls @ 25 mls/hr IV Q12HR [facility] Stop: 03/22/25 08:59 Piperacillin Sod/Tazobactam (Sod 4.5 gm/ Sodium Chloride) 100 mls @ 200 mls/hr IV X1 ONE Stop: 03/15/25 07:44 Last Admin: 03/15/25 07:26 Dose: 200 mls/hr Vancomycin HCl/Dextrose (Vancomycin/D5w 1,250 Mg Ivpb) 250 mls @ 120 mls/hr IV X1 ONE Stop: 03/15/25 14:04 Calcium Gluconate/Sodium Chloride (Calcium Gluc/Ns 1000mg Ivpb) 1,000 mg in 50 mls @ 50 mls/hr IV X1 ONE Stop: 03/15/25 08:22 Last Admin: 03/15/25 07:38 Dose: 50 mls/hr Insulin Human Regular (Insulin Hum Regular 1 Unit/0.01 Ml (Per Unit)) 10 unit IV X1 ONE Stop: 03/14/25 21:02 Last Admin: 03/14/25 22:20 Dose: Not Given Insulin Human Regular (Insulin Hum Regular 1 Unit/0.01 Ml (Per Unit)) 10 unit 0.1 unit/kg (10 unit) IV X1 ONE Stop: 03/15/25 04:13 Last Admin: 03/15/25 04:34 Dose: 10 unit Lorazepam (Lorazepam 2 Mg/Ml Vial) 2 mg IV X1 ONE Stop: 03/15/25 08:26 Last Admin: 03/15/25 08:29 Dose: 2 mg Methylprednisolone Sodium Succinate (Methylprednisolone Sod Succ 40 Mg Vial) 60 mg IVP X1 ONE Stop: 03/15/25 12:49 Midazolam HCl (Midazolam Inj 1 Mg/Ml Vial 2 Ml) 2 mg IV X1 ONE Stop: 03/14/25 14:17 Last Admin: 03/14/25 14:24 Dose: 2 mg Morphine Sulfate (Morphine Sulf Inj 10 Mg/Ml Vial) 4 mg IVP X1 ONE Stop: 03/14/25 14:17 Last Admin: 03/14/25 14:24 Dose: 4 mg Nitroglycerin (Nitroglycerin Oint 2% 1 Inch Packet) 1 inch TOP X1 ONE Stop: 03/15/25 10:05 Last Admin: 03/15/25 10:12 Dose: 1 inch Ondansetron HCl (Ondansetron Inj 2 Mg/Ml Inj 2 Ml) 4 mg IV X1 ONE; Protocol Stop: 03/14/25 14:17 Last Admin: 03/14/25 14:26 Dose: 4 mg Pantoprazole Sodium (Pantoprazole Inj 40 Mg Vial) 40 mg IVP QDAY [place] Stop: 04/13/25 17:44 Last Admin: 03/14/25 18:51 Dose: Not Given Phentolamine Mesylate (Phentolamine Mesylate Inj 5 Mg/Ml Vial) 5 mg SC X1 ONE Stop: 03/14/25 20:39 Last Admin: 03/14/25 21:02 Dose: 5 mg Rocuronium Belt (Rocuronium Inj 10 Mg/Ml Vial 10 Ml) 60 mg IVP X1 ONE Stop: 03/14/25 15:21 Last Admin: 03/14/25 15:32 Dose: 60 mg Sodium Bicarbonate (Sodium Bicarb Inj 8.4% Syr 50 Ml Syringe) 50 ml IV X1 ONE Stop: 03/14/25 14:21 Last Admin: 03/14/25 14:34 Dose: 50 ml Assessment & Plan Plan 49-year-old male with past medical history of DM2, hypertension, ESRD (HD ), HFpEF (EF 55% on 2021), and right BKA due to osteomyelitis was admitted to the ICU on 03/14/2025 for acute hypoxic respiratory failure, acute encephalopathy, and shock. #Shock, undifferentiated #Shock liver # Tachyarrhythmia, unknown etiology #Elevated troponin likely NSTEMI type II supply and demand #HFpEF (EF 55% on 2021) #Lower extremity ischemia? Assessment: Unknown etiology of shock at this time There could be a mixed component of shock. Could be dealing with multifactorial due to possible cardiogenic shock in the setting of the patient being cold wet with elevated lactic acid in the low EF. Return patient's cardiac index and SVI to determine if the patient is in an acute state of cardiogenic shock. Further data points need to be provided to assess and identify cardiogenic shock. Also patient having bilateral pneumonia with elevated lactic acid leukocytosis could be a potential for septic shock. However the degree of patient's fluid overload due to ESRD and the decrease in ejection fraction needs towards patient suffering from a cardiogenic shock. Also patient having lower extremity ischemia is potential due to patient's no pulses were felt and cold extremities. The ICU team tried to rule out lower limb ischemia with a CTA lower extremity runoff. There was a concern for supraventricular tachycardia and route to the hospital the patient was shocked once on over the patient was unstable at that time or if there was an underlying rhythm such as atrial fibrillation or a flutter. Patient was placed on a diltiazem drip however it is discontinued at this point. Upon arrival it was found the patient to have elevated troponins which peaked at 7.8 are currently downtrending. Electrolytes were within normal limits. Patient also has history of HFpEF EF 55% 2021. 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 Likely etiology of the patient's Cefobid could be due to dilated cardiomyopathy meth induced. Patient was also complaining of shortness of breath and increasing weight per family. Recommendations: We recommend an echocardiogram to assess patient's current LV EF function, any valvular or wall motion abnormalities. Further data points such as cardiac index and SVI to further determine the patient's etiology of of shock Maintain euglycemia Maintain electrolytes such as potassium magnesium and phosphorus within normal limits CRRT for fluid overload Currently patient too unstable for heart catheterization Hold off on beta-blockers, calcium channel blockers Continue norepinephrine and vasopressin, we need additional data points to consider the patient for any inotropic support Consider using ABG?VBG further calculation of fixed formula for an estimation of cardiac index #Acute hypoxic respiratory failure on mechanical intubation #Respiratory acidosis #ESRD (HD on ) #HAGMA #Lactic acidosis #Hyperkalemia #Possible GI bleed #Hematemesis #DM2 #Hypoglycemia #Leukocytosis #Macrocytic anemia #Thrombocytopenia #Community-acquired pneumonia ?Defer management to the intensive care unit team. - Patient's care was discussed with my attending physician, Dr. Wilfredo De Leon MD Internal Medicine PGY-3
[2025-03-15] MEDS: Heparin/D5w 25K 250 ML Ivpb 25,000 UNIT/250 ML BAG 10 UNIT IV (15:27)
[2025-03-15] MEDS: Aspirin 325 MG TABLET GT (15:35)
[2025-03-15] MEDS: VANCOMYCIN/D5W 1,250 MG IVPB 250 ML 120 MG IV (15:42)
[2025-03-15] MEDS: METOPROLOL TARTRATE INJ 1 MG/ML AMP 5 ML 5 MG IVP (16:08)
[2025-03-15 16:52] LABS: Lactate (Lactic Acid) 2.2 mMol/L (0.4-2.0)
--- NOTE | 2025-03-15 17:23 | PC.SS ---
SS update: per medical provider notes, patient admitted to ICU for concern for lower limb ischemia of the left lower extremity. Cardiology is consulting.
--- NOTE | 2025-03-15 17:35 | EKG_ITS ---
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 : 1975 Requested By: Lito Lee Order Number: [id number] Reading MD: Lito Lee Measurements Intervals [place] Rate: 131 P: [place]: QRS: 118 QRSD: 113 T: -78 QT: 356 QTc: 526 Interpretive Statements ATRIAL FIBRILLATION WITH RAPID VENTRICULAR RESPONSE INCOMPLETE RIGHT BUNDLE BRANCH BLOCK POSSIBLE RIGHT VENTRICULAR HYPERTROPHY ST DEVIATION AND MODERATE T-WAVE ABNORMALITY, CONSIDER INFERIOR ISCHEMIA Compared to ECG 03/15/2025 04:27:34 Incomplete right bundle-branch block now present T-wave abnormality now present Possible ischemia now present Intraventricular conduction delay no longer present /store/S0/[id number].pdf
--- NOTE | 2025-03-15 17:36 | PC.NURSE ---
Pt's Heart rate in the 120's MD Lewis made aware
[2025-03-15 17:52] LABS: Albumin, Serum 2.6 gm/dL (3.5-5.0); Anion Gap 17 (7-16); BUN/Creatinine Ratio 13 Ratio (12-20); Blood Urea Nitrogen 93 mg/dL (9-23); Carbon Dioxide 18.4 mMol/L (20.0-31.0); Chloride 104 mMol/L (98-107); Estimated Creatinine Clearance 16.4 mL/min (>60); Glucose 183 mg/dL (74-106); Osmolality,Calculated 311 (275-295); Phosphorous 8.8 mg/dL (2.4-5.1); Potassium 4.9 mMol/L (3.4-5.1); Sodium 139 mMol/L (136-145); eGFR 9 See Note
[2025-03-15 18:07] LABS: Calcium 5.4 mg/dL (8.3-10.6); Calcium (Corrected) 6.5 mg/dL (8.5-10.1)
[2025-03-15 19:51] LABS: Reflex Lactate? Y
[2025-03-15 22:41] LABS: Anion Gap 13 (7-16); BUN/Creatinine Ratio 12 Ratio (12-20); Blood Urea Nitrogen 56 mg/dL (9-23); Calcium (Corrected) 7.8 mg/dL (8.5-10.1); Carbon Dioxide 23.1 mMol/L (20.0-31.0); Chloride 101 mMol/L (98-107); Creatinine (Component) 4.6 mg/dL (0.6-1.3); Estimated Creatinine Clearance 24.9 mL/min (>60); Glucose 169 mg/dL (74-106); Osmolality,Calculated 293 (275-295); Phosphorous 5.6 mg/dL (2.4-5.1); Sodium 137 mMol/L (136-145); eGFR 15 See Note
[2025-03-15 22:43] LABS: Partial Thromboplastin Time 63.5 Seconds (22.0-36.0)
[2025-03-16] VITALS (126 sets, daily range): BP systolic 61–164; BP diastolic 45–113; PULSE 59–549; RESP 12–30; TEMP 36.6–37.1; O2SAT 88–100; BMI 33.3
[2025-03-16] MEDS: INSULIN LISPRO (AdmeLOG) 1 UNIT/0.01 ML UNIT SC ×4 (00:17→18:27)
[2025-03-16] MEDS: PIPER/TAZO 2.25 GM 2.25 GM/50 ML BAG IV ×4 (00:43→18:28)
[2025-03-16 01:20] LABS: Lactate (Lactic Acid) 2.4 mMol/L (0.4-2.0)
[2025-03-16] MEDS: HEPARIN SOD INJ 1000 UNIT/ML VIAL 10 ML 3000 UNIT INDWELLCAT (01:30)
[2025-03-16 01:57] LABS: Albumin, Serum 2.8 gm/dL (3.5-5.0); Anion Gap 17 (7-16); BUN/Creatinine Ratio 13 Ratio (12-20); Blood Urea Nitrogen 70 mg/dL (9-23); Calcium (Corrected) 7.5 mg/dL (8.5-10.1); Carbon Dioxide 21.3 mMol/L (20.0-31.0); Chloride 96 mMol/L (98-107); Creatinine (Component) 5.6 mg/dL (0.6-1.3); Estimated Creatinine Clearance 20.5 mL/min (>60); Glucose 202 mg/dL (74-106); Osmolality,Calculated 294 (275-295); Phosphorous 6.7 mg/dL (2.4-5.1); Potassium 4.6 mMol/L (3.4-5.1); Sodium 134 mMol/L (136-145); eGFR 12 See Note
[2025-03-16 01:59] LABS: Calcium 6.5 mg/dL (8.3-10.6)
[2025-03-16] MEDS: CALCIUM GLUC/NS 1000MG IVPB 1,000 MG/50 ML BAG 50 MG IV ×2 (03:04→08:38)
[2025-03-16] MEDS: fentaNYL 2,500 MCG/250 ML BAG 2,500 MCG/250 ML BAG 20 MCG IV (03:14)
[2025-03-16 04:15] LABS: Reflex Lactate? Y
--- NOTE | 2025-03-16 04:16 | EKG_ITS ---
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
--- NOTE | 2025-03-16 04:21 | PC.NURSE ---
0407 patient went in SVT HR 190s-200, synchronized cardioversion given HR sustaining back into 130s - 150s post synccardioversion 164/113 and after 5 mins 146/96. RT at bedside doing EKG, Stat labs also ordered by Dr. Rouse and Dr. Alonso at bedside.
[2025-03-16] MEDS: AMIODARONE 150 MG IVPB 150 MG/100 ML BAG 600 MG IV (04:30)
[2025-03-16] MEDS: AMIODARONE 360 MG IVPB 360 MG/200 ML BAG 33.333 MG IV (04:44)
[2025-03-16 05:04] LABS: Base Excess -2 (-3-3); HCO3 21 mEq/L (20-26); Inspired Oxygen, FIO2 35 %; O2 Saturation 96 % (91-98); PCO2 29 mmHg (32.0-48.0); PO2 78 mmHg (83-108); pH, Arterial 7.46 (7.35-7.45)
[2025-03-16 05:05] LABS: Allen Test Performed/OK; Puncture Site Right Radial
[2025-03-16] MEDS: PROPOFOL 1,000 MG IVPB 1,000 MG/100 ML VIAL 11.975 MG IV ×3 (05:26→19:52)
[2025-03-16 05:36] LABS: Lactate (Lactic Acid) 2.8 mMol/L (0.4-2.0)
[2025-03-16 06:06] LABS: Basophils # (Auto) 0.1 Thou/mm3 (0.0-0.2); Basophils % (Auto) 0 % (0-2.5); Eosinophils % (Auto) 0 % (0-10); Hemoglobin 10.4 g/dL (13.5-16.0); Immature Granulocytes % (Auto) 9 % (0-0); Immature Granulocytes Auto 2.07 Thou/mm3 (0.00-0.00); Lymphocytes # (Auto) 0.5 Thou/mm3 (1.0-4.8); Lymphocytes % (Auto) 2 % (10-50); Mean Corpuscular HGB Conc 32.5 g/dl (31.0-37.0); Mean Corpuscular Hemoglobin 30.3 pg (25.0-35.0); Mean Corpuscular Volume 93 fL (80-100); Monocytes # (Auto) 0.8 Thou/mm3 (0.0-0.8); Monocytes % (Auto) 4 % (0-12); Neutrophils # (Auto) 19.4 Thou/mm3 (1.8-7.7); Neutrophils % (Auto) 85 % (37-80); Nucleated Red Blood Cell # 0.17 Thou/mm3 (0.00-0.00); Nucleated Red Blood Cell % 1 /100 WBC (0); Platelet Count 87 Thou/mm3 (140-440); RDW Standard Deviation 52.4 fL (35.1-43.9); Red Blood Count 3.43 Miln/mm3 (4.50-5.90); White Blood Count 22.9 Thou/mm3 (3.8-10.6)
--- NOTE | 2025-03-16 07:00 | XR_ITS ---
Examination: AP chest single view Technique one AP portable chest single view Exam date and time: March 16, 2025 0730 hrs. Comparison March 15, 2025 Indications: Hypoxic respiratory failure, postintubation this week, pneumonia on earlier chest imaging Findings: Mild to moderate enlargement cardiac contour Prominent vascular congestion Bibasilar edema and/or pneumonia Left internal jugular dialysis catheter tips SVC satisfactory position Endotracheal tube tip 6.4 cm above marco Intact osseous structures Impression: Mild heart failure Edema and/or pneumonia at the lung bases Endotracheal tube tip 6.4 cm above marco The orogastric tube is in the stomach the tip is below the level of the film
[2025-03-16 07:03] LABS: Alanine Aminotransferase 3116 U/L (10-49); Albumin, Serum 2.8 gm/dL (3.5-5.0); Albumin/Globulin Ratio 1.5 (1.2-2.2); Alkaline Phosphatase 274 U/L (46-116); Anion Gap 15 (7-16); Aspartate Amino Transferase 2208 U/L (0-34); BUN/Creatinine Ratio 12 Ratio (12-20); Bilirubin,Total 1.9 mg/dL (0.3-1.2); Blood Urea Nitrogen 73 mg/dL (9-23); Calcium (Corrected) 7.5 mg/dL (8.5-10.1); Carbon Dioxide 19.9 mMol/L (20.0-31.0); Chloride 101 mMol/L (98-107); Creatinine (Component) 5.9 mg/dL (0.6-1.3); Estimated Creatinine Clearance 19.1 mL/min (>60); Globulin 1.9 gm/dL (2.3-3.5); Glucose 248 mg/dL (74-106); Magnesium 2.4 mg/dL (1.6-2.6); Osmolality,Calculated 301 (275-295); Phosphorous 7.8 mg/dL (2.4-5.1); Potassium 4.8 mMol/L (3.4-5.1); Sodium 136 mMol/L (136-145); Total Protein 4.7 gm/dL (5.7-8.2); eGFR 11 See Note
--- NOTE | 2025-03-16 07:16 | ESCONSULT_ITS ---
RE: BALJINDERTCLEMENTE : 1975 DATE OF CONSULTATION: 03/15/2025 REASON FOR REFERRAL: ESRD management. Coverage for Dr. Pleitez. HISTORY OF PRESENT ILLNESS: This patient is a 49-year-old gentleman with past medical history significant for type 2 diabetes, hypertension; ESRD, on dialysis every Saturday, , and Saturday who is very noncompliant with dialysis treatments, he usually only goes to dialysis once a week; heart failure with preserved ejection fraction and right BKA who presented to the emergency room yesterday with altered level of consciousness. The patient is also known to have history of substance abuse. While in the emergency room, the patient was intubated for airway protection. Further evaluation revealed that his white blood cell count was 30,000 yesterday, and he was also severely acidotic. His lactic acid was 15 upon admission. He was also mildly hyperkalemic. His blood pressures have been hovering around 80s to 90s/50s to 60s. The patient is also extremely volume overloaded. When the dialysis nurse examined his access, the patient's access was already clotted. PAST MEDICAL HISTORY: As previously mentioned, type 2 diabetes, hypertension, polysubstance abuse, noncompliance with dialysis treatment, history of hypertension. PAST SURGICAL HISTORY: Right BKA. CURRENT MEDICATIONS: 1. Acetaminophen. 2. Aspirin 325 mg daily. 3. Azithromycin 500 mg IV x1. 4. Rocephin 2 g IV daily. 5. Plavix 75 mg daily. 6. Insulin sliding scale. 7. Metoprolol. 8. Midazolam. 9. Morphine. 10. Levophed drip. 11. Ondansetron. 12. Pantoprazole. 13. Phentolamine mesylate. 14. Zosyn 4.5 g every 12 hours. 15. Vancomycin 1500 mg IV x1. PHYSICAL EXAMINATION: General: The patient is intubated and sedated. Vital Signs: Blood pressure of 90/60, heart rate of 134. HEENT: Anicteric sclerae. Normocephalic. Neck: Supple. No JVD. Chest and Lungs: Decreased breath sounds bilaterally. Cardiac: Without murmur. Abdomen: soft. distended. Extremities: 3 to 4+ bilateral upper and lower extremity edema, right BKA, mottling of both lower extremities. LABORATORY DATA: Hemoglobin 10.7, WBC 22424 platelet count 73,000. Fibrinogen 140. D-dimer 3480. Sodium 139, potassium 4.9, chloride 104, CO2 of 18.4, BUN 93, creatinine 7, glucose 183, calcium 5.4, Phosphorus 6.5. AST more than 6000, ALT more than 3300. Troponin 7.704. Albumin 2.6. ASSESSMENT: 1. Respiratory failure. 2. Sepsis of unknown etiology. 3. Elevated liver enzymes, most likely secondary to ischemic liver. 4. Substance abuse. 5. Thrombocytopenia, secondary to sepsis. PLAN: The patient earlier was hyperkalemic and was given insulin and anti- hyperkalemic agents. He is also very volume overloaded, and as such, we will start dialyzing him to address his volume overload and hyperkalemia. The patient will be started on PIRRT to slowly remove his fluids over time and also, to address hyperkalemia, which can come back given that he is anuric. We will continue PIRRT for the next 8 hours and continue to monitor his electrolytes daily. The patient was also started on Zosyn and vancomycin. Zosyn may need to be decreased according to his ESRD status. DT: 19:37:14 TT: 20:29:00 Ref: [id number] - TID: [id number] MTDD
[2025-03-16 07:47] LABS: Calcium 6.5 mg/dL (8.3-10.6)
[2025-03-16 08:31] LABS: Reflex Lactate? Y
[2025-03-16] MEDS: CLOPIDOGREL BISULFATE 75 MG TABLET GT (08:38)
[2025-03-16] MEDS: PANTOPRAZOLE INJ 40 MG VIAL IVP ×2 (08:38→22:00)
[2025-03-16] MEDS: ASPIRIN 81 MG CHEW GT (08:38)
[2025-03-16 08:39] LABS: Lactic Acid, 3 HR 2.6 mMol/L (0.4-2.0)
[2025-03-16 09:11] LABS: Albumin, Serum 2.7 gm/dL (3.5-5.0); Anion Gap 14 (7-16); BUN/Creatinine Ratio 12 Ratio (12-20); Blood Urea Nitrogen 74 mg/dL (9-23); Calcium (Corrected) 7.5 mg/dL (8.5-10.1); Carbon Dioxide 21.4 mMol/L (20.0-31.0); Chloride 100 mMol/L (98-107); Creatinine (Component) 6.2 mg/dL (0.6-1.3); Estimated Creatinine Clearance 18.2 mL/min (>60); Glucose 270 mg/dL (74-106); Osmolality,Calculated 302 (275-295); Phosphorous 7.9 mg/dL (2.4-5.1); Potassium 4.9 mMol/L (3.4-5.1); Sodium 135 mMol/L (136-145); eGFR 10 See Note
[2025-03-16 09:15] LABS: Calcium 6.5 mg/dL (8.3-10.6)
[2025-03-16] MEDS: Norepinephrine/D5W 8mg/250ml 8 MG/250 ML BAG 13.097 MG IV (09:45)
[2025-03-16 09:49] LABS: Partial Thromboplastin Time 56.7 Seconds (22.0-36.0)
[2025-03-16 10:25] LABS: INR 5.9 (0.9-1.3)
--- NOTE | 2025-03-16 11:00 | PC.NURSE ---
MD Fountain in patients room assessing patient. Per MD Fountain, change patients CRRT to 24hrs. With UF rate of 303 ml/hr and fluid removal goal of 3.5L. Blood flow rate of 300ml/hr and dialysate rate of 300ml/hr.
[2025-03-16 11:03] LABS: Basophils # (Auto) 0.2 Thou/mm3 (0.0-0.2); Basophils % (Auto) 1 % (0-2.5); Eosinophils % (Auto) 0 % (0-10); Hematocrit 31.1 % (41.0-53.0); Hemoglobin 10.2 g/dL (13.5-16.0); Immature Granulocytes % (Auto) 10 % (0-0); Immature Granulocytes Auto 2.53 Thou/mm3 (0.00-0.00); Lymphocytes # (Auto) 0.6 Thou/mm3 (1.0-4.8); Lymphocytes % (Auto) 2 % (10-50); Mean Corpuscular HGB Conc 32.8 g/dl (31.0-37.0); Mean Corpuscular Hemoglobin 30.2 pg (25.0-35.0); Mean Corpuscular Volume 92 fL (80-100); Monocytes % (Auto) 4 % (0-12); Neutrophils # (Auto) 20.4 Thou/mm3 (1.8-7.7); Neutrophils % (Auto) 83 % (37-80); Nucleated Red Blood Cell # 0.18 Thou/mm3 (0.00-0.00); Nucleated Red Blood Cell % 1 /100 WBC (0); Platelet Count 88 Thou/mm3 (140-440); RDW Standard Deviation 51.7 fL (35.1-43.9); Red Blood Count 3.38 Miln/mm3 (4.50-5.90); White Blood Count 24.8 Thou/mm3 (3.8-10.6)
--- NOTE | 2025-03-16 11:12 | ESPR_ITS ---
Documentation for date of: 03/16/25 Subjective Subjective Interval history: This is a 49-year-old male admitted to the ICU yesterday evening with acute respiratory failure. Patient apparently had been feeling poorly for the last 48 hours. EMS had been called day prior the patient was noted to be in SVT however refused transport to the ER. Yesterday the patient was again noted to be in SVT and cardioverted. He was also found to be hypoglycemic and hypotensive. He was given several amps of D50 in the ER. He was found to be obtunded with a GCS less than 8 requiring intubation. He also had a prior diagnosis of pneumonia for which she was started on antibiotics as an outpatient. On arrival he was acidotic with a pH 7.03 with both respiratory as well as metabolic acidosis. He was admitted to the ICU for further intervention and evaluation. Overnight the patient's Levophed infiltrated in his right antecubital fossa with instillation of phentolamine. A right sided EJ was placed for Levophed. The patient's been on fentanyl and propofol for the sedation. He is end-stage renal and has had minimal urinary output. His vasopressor requirements have fluctuated. He was severely acidotic with vent adjustments made. He has ongoing mottling of his extremities with digits that are frankly dusky and ischemic in appearance. When sedation is held he does wake up and follow commands. 03/16-tolerated CRRT yesterday, afebrile, sedated, anuric, left foot with new clearly demarcated dotty ischemic changes, SVT overnight requiring cardioversion as well as Amio drip Critical Care Note Critical care time (min.): 75 Exam Vital Signs Temp Pulse Resp BP Pulse Ox O2 Del Method O2 Flow Rate 98.7 F 100 16 98/70 100 Mechanical Ventilation 50 03/16/25 10:21 03/16/25 11:00 03/16/25 10:21 03/16/25 11:00 03/16/25 11:00 03/16/25 04:00 03/14/25 18:09 FiO2 35 03/16/25 10:21 Narrative Exam Gen-intubated, sedated, obese, ill-appearing HEENT-normocephalic, atraumatic, sclera icteric, pupils reactive, ET tube and OG tube in place Chest-lungs with crackles at bases clear anteriorly, no active wheezing noted, heart rate regular rhythmic Abdomen-obese, soft, nontender, no rebound Extremities-frankly ischemic left foot, 2 ischemic digits on the right hand, dusky ischemic appearance of the right stump, some mottling, Vent AC/VC Drips Heparin Levophed Fentanyl Propofol amio Physical Exam Completion Physical Exam Complete?: Yes Objective - [employer] 03/16/25 10:15 03/16/25 08:10 Labs: Laboratory Results - last 24 hr 03/14/25 03/15/25 03/15/25 17:35 09:43 12:14 WBC 22.4 H D RBC 3.53 L Hgb 10.7 L Hct 32.4 L MCV 92 MCH 30.3 MCHC 33.0 RDW Std Deviation 50.3 H Plt Count 73 L Neut % (Auto) 82 H Lymph % (Auto) 4 L [place] % (Auto) 5 Eos % (Auto) 0 Baso % (Auto) 1 Neut # (Auto) 18.4 H Lymph # (Auto) 1.0 [place] # (Auto) 1.1 H Eos # (Auto) 0.0 Baso # (Auto) 0.1 Immature Gran # (Auto) 1.75 H Absolute Nucleated RBC 0.19 H Immature Gran % 8 H Nucleated RBC % 1 H PT > 63.0 H* INR APTT 63.2 H Fibrinogen 140 L D-Dimer 3480 H Puncture Site ABG pH ABG pCO2 ABG pO2 ABG HCO3 ABG O2 Saturation ABG Base Excess VBG pH VBG pCO2 VBG pO2 VBG O2 Sat (Guy) VBG Base Excess FiO2 Sodium Potassium Chloride Carbon Dioxide Anion Gap BUN Creatinine Estim Creat Clear Calc eGFR BUN/Creatinine Ratio Glucose Calculated Osmolality Lactic Acid 3.1 H Calcium Corrected Calcium Phosphorus Magnesium Total Bilirubin AST ALT Alkaline Phosphatase Total Protein Albumin Globulin Albumin/Globulin Ratio Hepatitis A IgM Ab Non Reactive Hep Bs Antigen Non Reactive Hep B Core IgM Ab Non Reactive Hepatitis C Antibody Non Reactive Misc Test Result Platelets confirmed Blood Type A Positive Antibody Screen NEGATIVE Blood Bank Wristband ID Yes 03/15/25 03/15/25 03/15/25 12:28 16:35 20:37 WBC RBC Hgb Hct MCV MCH MCHC RDW Std Deviation Plt Count Neut % (Auto) Lymph % (Auto) [place] % (Auto) Eos % (Auto) Baso % (Auto) Neut # (Auto) Lymph # (Auto) [place] # (Auto) Eos # (Auto) Baso # (Auto) Immature Gran # (Auto) Absolute Nucleated RBC Immature Gran % Nucleated RBC % PT INR APTT Fibrinogen D-Dimer Puncture Site ABG pH ABG pCO2 ABG pO2 ABG HCO3 ABG O2 Saturation ABG Base Excess VBG pH 7.43 VBG pCO2 34 L VBG pO2 37 VBG O2 Sat (Guy) 68 L VBG Base Excess -1 FiO2 Sodium 139 137 Potassium 4.9 4.0 D Chloride 104 101 Carbon Dioxide 18.4 L 23.1 Anion Gap 17 H 13 BUN 93 H 56 H Creatinine 7.0 H* 4.6 H* D Estim Creat Clear Calc 16.4 L 24.9 L eGFR 9 L* 15 L BUN/Creatinine Ratio 13 12 Glucose 183 H D 169 H Calculated Osmolality 311 H 293 Lactic Acid 2.2 H 2.0 Calcium 5.4 L* 7.0 L D Corrected Calcium 6.5 L* 7.8 L Phosphorus 8.8 H 5.6 H Magnesium Total Bilirubin AST ALT Alkaline Phosphatase Total Protein Albumin 2.6 L D 3.0 L Globulin Albumin/Globulin Ratio Hepatitis A IgM Ab Hep Bs Antigen Hep B Core IgM Ab Hepatitis C Antibody Misc Test Result Blood Type Antibody Screen Blood Bank Wristband ID 03/15/25 03/16/25 03/16/25 21:56 00:40 04:51 WBC RBC Hgb Hct MCV MCH MCHC RDW Std Deviation Plt Count Neut % (Auto) Lymph % (Auto) [place] % (Auto) Eos % (Auto) Baso % (Auto) Neut # (Auto) Lymph # (Auto) [place] # (Auto) Eos # (Auto) Baso # (Auto) Immature Gran # (Auto) Absolute Nucleated RBC Immature Gran % Nucleated RBC % PT INR APTT 63.5 H Fibrinogen D-Dimer Puncture Site Right Radial ABG pH 7.46 H ABG pCO2 29 L ABG pO2 78 L ABG HCO3 21 ABG O2 Saturation 96 ABG Base Excess -2 VBG pH VBG pCO2 VBG pO2 VBG O2 Sat (Guy) VBG Base Excess FiO2 35 Sodium 134 L Potassium 4.6 D Chloride 96 L Carbon Dioxide 21.3 Anion Gap 17 H BUN 70 H Creatinine 5.6 H* D Estim Creat Clear Calc 20.5 L eGFR 12 L* BUN/Creatinine Ratio 13 Glucose 202 H Calculated Osmolality 294 Lactic Acid 2.4 H Calcium 6.5 L* Corrected Calcium 7.5 L Phosphorus 6.7 H Magnesium Total Bilirubin AST ALT Alkaline Phosphatase Total Protein Albumin 2.8 L Globulin Albumin/Globulin Ratio Hepatitis A IgM Ab Hep Bs Antigen Hep B Core IgM Ab Hepatitis C Antibody Misc Test Result Blood Type Antibody Screen Blood Bank Wristband ID 03/16/25 03/16/25 03/16/25 05:13 08:10 10:15 WBC 22.9 H 24.8 H RBC 3.43 L 3.38 L Hgb 10.4 L 10.2 L Hct 32.0 L 31.1 L MCV 93 92 MCH 30.3 30.2 MCHC 32.5 32.8 RDW Std Deviation 52.4 H 51.7 H Plt Count 87 L 88 L Neut % (Auto) 85 H 83 H Lymph % (Auto) 2 L 2 L [place] % (Auto) 4 4 Eos % (Auto) 0 0 Baso % (Auto) 0 1 Neut # (Auto) 19.4 H 20.4 H Lymph # (Auto) 0.5 L 0.6 L [place] # (Auto) 0.8 1.0 H Eos # (Auto) 0.0 0.0 Baso # (Auto) 0.1 0.2 Immature Gran # (Auto) 2.07 H 2.53 H Absolute Nucleated RBC 0.17 H 0.18 H Immature Gran % 9 H 10 H Nucleated RBC % 1 H 1 H PT 57.0 H* D INR 5.9 H* APTT 56.7 H Fibrinogen D-Dimer Puncture Site ABG pH ABG pCO2 ABG pO2 ABG HCO3 ABG O2 Saturation ABG Base Excess VBG pH VBG pCO2 VBG pO2 VBG O2 Sat (Guy) VBG Base Excess FiO2 Sodium 136 135 L Potassium 4.8 4.9 Chloride 101 100 Carbon Dioxide 19.9 L 21.4 Anion Gap 15 14 BUN 73 H 74 H Creatinine 5.9 H* 6.2 H* Estim Creat Clear Calc 19.1 L 18.2 L eGFR 11 L* 10 L* BUN/Creatinine Ratio 12 12 Glucose 248 H 270 H Calculated Osmolality 301 H 302 H Lactic Acid 2.8 H 2.6 H Calcium 6.5 L* 6.5 L* Corrected Calcium 7.5 L 7.5 L Phosphorus 7.8 H 7.9 H Magnesium 2.4 Total Bilirubin 1.9 H AST 2208 H* ALT 3116 H* Alkaline Phosphatase 274 H Total Protein 4.7 L Albumin 2.8 L 2.7 L Globulin 1.9 L Albumin/Globulin Ratio 1.5 Hepatitis A IgM Ab Hep Bs Antigen Hep B Core IgM Ab Hepatitis C Antibody Misc Test Result Blood Type Antibody Screen Blood Bank Wristband ID Assessment & Plan Additional Assessment Additional Assessment: In summary this is a 49yo M admitted to the ICU for shock and acute resp failure a/p [employer] Acute Encephalopathy- intubated and sedated 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 some LVH and some septal flattening on parasternal short view, no pericardial effusion no evidence of obstructive etiology noted and not felt to have large PE. contractility appears adequate at this time and not felt to have a current cardiogenic component. received minimal IVF on arrival and therefore given additional volume overnight. will need cheeta for further hemodynamics and ? distributive v hypovolemic in etiology. on broad spectrum abx for infectious etiology possibility . will check a formal echo and SvO2 - SvO2 68yesterday - on decreasing vasopressor needs ? acute v chronic limb ischemia- obtain aorta with runoff to eval, heparin as needed - angio done yesterday and shows occlusion of tibial artery on the L - already on heparin gtt - today dotty ischemia and demarcation zone on L foot -> d/w vascular surgery and not a surgical candidate at this time Tropinemia- type 1 v type 2 however on EKG there are new ST depressions in V4 V5, pt has pTT >60, start ACS heparin protocol/ASA/plavix though given current pTT will not need much heparin with goal APTT of ~70. - echo still pending - cards eval requested SVT- had episode overnight and again today at 1230 - required adenosine 05/06 and then cardioversion today - acute hypotension with SVT however rapidly resolved once cardioverted Resp Acute Hypoxic resp failure- intubated and on MV with high Ve - ween as able and when appropriate - CXR with elevated R hemidiaphragm vs RLL collapse -> will need bronch - while preparing for bronch today pt went into SVT prior to bronch being started therefore procedure cancelled for today PNA- on abx, fu on CX Renal ESRD on HD AGMA- LA of 23 overnight but down to 3 at this time - severe metabolic acidosis with resp acidosis on original ABG - improving LA - LA from ischemic limb at this time HypoCa- given 1 amp of Ca++ - additional Ca today HyperK- resolved GI Hepatitis- baseline is nl, unclear etiology, check viral panel, may be 2/2 hypotension v hypoxia, check a RUQ abd us with doppler to eval for any poss thrombosis - LFTs trending down GI proph- PPI Endo Diabetes-has had several episodes of hypoglycemia requiring pushes of D50. A few of these times however when a glucose is checked from the patient's central line there is at least 100 point difference. This is likely because his extremities are dusky and mottled. - cont on SSI with FS Heme Leukocytosis- L shift present, slight improvement from arrival Anemia- near baseline Thrombocytopenia- has had a drop in PLT since 2023 however current drop is more prominent - no active bleeding therefore no need for transfusion Coagulopathy- in the setting of severe liver dysfunction ? DIC yesterday and given cryo for low fibrinogen ID Cellulitis- on abx, fu on cx case d/w ICU team labs, imaging, records reviewed ~75cc min required for evaluation, exam, review, intervention, discussion and formulation of plan of care for this critically ill patient with respiratory failure and shock at high risk for further and ongoing decompensation. Provider Notation Provider Notation: Although this document has been carefully reviewed, there may still be some phonetic and other typographical errors. These errors are purely grammatical due to imperfections in the software program and should not be construed in any way to compromise the substance of the patient's medical care during this visit. Thank you for the opportunity and privilege in assisting you with this patient's care and management.
--- NOTE | 2025-03-16 11:12 | PD.RESPRO ---
Documentation for date of: 03/16/25 Subjective Subjective Interval history: 49-year-old male with past medical history of DM2, hypertension, ESRD (HD ), HFpEF (EF 55% on 2021), and right BKA due to osteomyelitis was admitted to the ICU on 03/14/2025 after coming to the ED via ambulance due to altered mental status. Given patient's mental status and being intubated most of the history was taken from chart review and from patient's who was at bedside. Patient's stated that he was in the ER around 3 days ago due to some substernal chest pain and shortness of breath, but he was discharged with some antibiotics that he was told he had some pneumonia. She mentioned that yesterday in the evening he again had some shortness of breath and was kind of confused, but he did not want to come into the hospital at this time. Today in the morning she states that he was less responsive and that he was more cyanotic. At this time she decided to call EMS who brought the patient to the ED. As per chart review patient was in SVT when EMS arrived therefore he was shocked once and he converted to sinus rhythm. He was also noticed to be very hypoglycemic when he came into the ED with a blood glucose of around 23 therefore he was given multiple amps of D50. ED physician started patient on diltiazem drip. Of note, patient's states that this week he had to get more sessions of hemodialysis as he had increased a lot in weight. She mentioned that the last hemodialysis was on Saturday. She also mentioned that they are having a no recent changes on his medications and that he had not been using any medication for his diabetes. 03/15/2025: Patient seen and examined at bedside this morning. Overnight patient required to be placed on vasopressors as his blood pressure had dropped. They started the vasopressors on the peripheral IV line in the right upper extremity the IV line was infiltrated therefore they gave phentolamine x 1 and placed warm compresses. This morning a central line was placed on the right IJ and hemodialysis catheter was placed on the left IJ. Patient's labs today showed that hemoglobin was stable and since there was no more coffee-ground material coming from the NG tube we will start heparin drip, aspirin, and Plavix given that his troponins up trended to 7.899 before downtrending and the his EKG overnight did show some ST depressions in the inferior and lateral leads. Patient's metabolic acidosis is is improving slightly and lactic acid is downtrending. Patient's liver enzymes were severely elevated with AST and ALT above 6000 and 3300 respectively, order abdominal ultrasound and hepatitis panel. Chest x-ray this morning also showed that there could be right lower lobe collapse therefore will do bronchoscopy to better assess. Ordered CT angiogram of abdomen with iliofemoral runoff to assess for possible acute limb ischemia on the left lower extremity given that yesterday with follow-up weak pulse, but today extremity was pulseless. 03/16/2025: Patient seen and examined at bedside this morning. Overnight patient went back to SVT therefore she was shocked. Night team also started the patient on amiodarone drip given that on EKG at that showed that he had some A-fib with RVR. Today patient's chest x-ray did look a little bit better than yesterday and his right lower lung was more visible today, but he required baggin due to desaturation therefore will do bronchoscopy. Patient was sedated therefore his neurological status could not be assessed today, but his pupils were more sluggish today and less reactive. His left foot looks worse today when compared to yesterday, but his right hand did not look better than yesterday. CTA with runoff yesterday that showed occlusion of several arteries on the left leg and stenosis of the right superficial femoral artery. Spoke with vascular surgeon today who stated that patient most likely had a chronic peripheral vascular disease and that in the setting of his shock this was likely exacerbated, he mentioned at this time patient is not a candidate for revascularization surgery and to continue to wean off patient off vasopressors at this time. Patient's LFTs are downtrending. Patient's MRSA nares came back negative therefore will discontinue vancomycin. Repeat DIC panel today and repeated CK today as well. Patient went into SVT with heart rate in the 200s prior to his bronchoscopy, patient was given 6 mg of adenosine initially then 12 mg of adenosine and eventually was cardioverted. Repeat EKG afterwards showed what looks to be multifocal atrial tachycardia. Afterwards patient's heart rate has been in the 60s to 80s. Patient's was at bedside this afternoon and she was given an update on the patient's current condition. Given the patient's guarded prognosis and current condition the patient's CODE STATUS was reassessed with the patient's . She found that it was in the patient's best interest to change his CODE STATUS from full code to DNR at this time. At this time all questions and doubts patient's had were answered fully. Was explained that we will continue to do all medical treatment including for his SVT with cardioversion if it came to happen. She was understanding and wanted to proceed with this. Exam Vital Signs Temp Pulse Resp BP Pulse Ox O2 Del Method O2 Flow Rate 98.7 F 100 16 98/70 100 Mechanical Ventilation 50 03/16/25 10:21 03/16/25 11:00 03/16/25 10:21 03/16/25 11:00 03/16/25 11:00 03/16/25 04:00 03/14/25 18:09 FiO2 35 03/16/25 10:21 Narrative Exam General: Mechanically ventilated, sedated Eyes: Pupils sluggish, mildy icteric. Ears: No visible ear discharge Nose: No visible nasal discharge. Mouth/Throat: Dry mucous membranes, no redness, no lesions. Neck: Neck supple, no cervical lymphadenopathy. Lungs: Clear CHRISTIANO in upper lobes, mildly decreased in lower lobes Cardio: Normal S1/S2, irregular, no murmurs, no JVD Abdomen: Soft, non-tender, no palpable masses, peristalsis present, no guarding or rebound, swollen in the lower abdomen and some mild ascites. Extremities: Right BKA with cyanotic changes at the stump, left foot demarcated purplish discoloration which increased in size, compared to yesterday, right upper extremity still swollen and digits are still very dark in color yet have improved from yesterday evening. Skin: Improvement in right upper extremity digit discoloration, but still worse on the right than on the left. Skin injury with purple discoloration in the lateral right thigh now does have some fluid-filled bullae, indurated redness demarcated rash in the inner right thigh unchanged in size Neuro: Mechanically ventilated and sedated, pupils very sluggish today. Objective Labs 03/16/25 10:15 03/16/25 08:10 Labs: Laboratory Results - last 24 hr 03/14/25 03/15/25 03/15/25 17:35 09:43 12:14 WBC 22.4 H D RBC 3.53 L Hgb 10.7 L Hct 32.4 L MCV 92 MCH 30.3 MCHC 33.0 RDW Std Deviation 50.3 H Plt Count 73 L Neut % (Auto) 82 H Lymph % (Auto) 4 L Dundy % (Auto) 5 Eos % (Auto) 0 Baso % (Auto) 1 Neut # (Auto) 18.4 H Lymph # (Auto) 1.0 Dundy # (Auto) 1.1 H Eos # (Auto) 0.0 Baso # (Auto) 0.1 Immature Gran # (Auto) 1.75 H Absolute Nucleated RBC 0.19 H Immature Gran % 8 H Nucleated RBC % 1 H PT > 63.0 H* INR APTT 63.2 H Fibrinogen 140 L D-Dimer 3480 H Puncture Site ABG pH ABG pCO2 ABG pO2 ABG HCO3 ABG O2 Saturation ABG Base Excess VBG pH VBG pCO2 VBG pO2 VBG O2 Sat (Guy) VBG Base Excess FiO2 Sodium Potassium Chloride Carbon Dioxide Anion Gap BUN Creatinine Estim Creat Clear Calc eGFR BUN/Creatinine Ratio Glucose Calculated Osmolality Lactic Acid 3.1 H Calcium Corrected Calcium Phosphorus Magnesium Total Bilirubin AST ALT Alkaline Phosphatase Total Protein Albumin Globulin Albumin/Globulin Ratio Hepatitis A IgM Ab Non Reactive Hep Bs Antigen Non Reactive Hep B Core IgM Ab Non Reactive Hepatitis C Antibody Non Reactive Misc Test Result Platelets confirmed Blood Type A Positive Antibody Screen NEGATIVE Blood Bank Wristband ID Yes 03/15/25 03/15/25 03/15/25 12:28 16:35 20:37 WBC RBC Hgb Hct MCV MCH MCHC RDW Std Deviation Plt Count Neut % (Auto) Lymph % (Auto) Dundy % (Auto) Eos % (Auto) Baso % (Auto) Neut # (Auto) Lymph # (Auto) Dundy # (Auto) Eos # (Auto) Baso # (Auto) Immature Gran # (Auto) Absolute Nucleated RBC Immature Gran % Nucleated RBC % PT INR APTT Fibrinogen D-Dimer Puncture Site ABG pH ABG pCO2 ABG pO2 ABG HCO3 ABG O2 Saturation ABG Base Excess VBG pH 7.43 VBG pCO2 34 L VBG pO2 37 VBG O2 Sat (Guy) 68 L VBG Base Excess -1 FiO2 Sodium 139 137 Potassium 4.9 4.0 D Chloride 104 101 Carbon Dioxide 18.4 L 23.1 Anion Gap 17 H 13 BUN 93 H 56 H Creatinine 7.0 H* 4.6 H* D Estim Creat Clear Calc 16.4 L 24.9 L eGFR 9 L* 15 L BUN/Creatinine Ratio 13 12 Glucose 183 H D 169 H Calculated Osmolality 311 H 293 Lactic Acid 2.2 H 2.0 Calcium 5.4 L* 7.0 L D Corrected Calcium 6.5 L* 7.8 L Phosphorus 8.8 H 5.6 H Magnesium Total Bilirubin AST ALT Alkaline Phosphatase Total Protein Albumin 2.6 L D 3.0 L Globulin Albumin/Globulin Ratio Hepatitis A IgM Ab Hep Bs Antigen Hep B Core IgM Ab Hepatitis C Antibody Misc Test Result Blood Type Antibody Screen Blood Bank Wristband ID 03/15/25 03/16/25 03/16/25 21:56 00:40 04:51 WBC RBC Hgb Hct MCV MCH MCHC RDW Std Deviation Plt Count Neut % (Auto) Lymph % (Auto) Dundy % (Auto) Eos % (Auto) Baso % (Auto) Neut # (Auto) Lymph # (Auto) Dundy # (Auto) Eos # (Auto) Baso # (Auto) Immature Gran # (Auto) Absolute Nucleated RBC Immature Gran % Nucleated RBC % PT INR APTT 63.5 H Fibrinogen D-Dimer Puncture Site Right Radial ABG pH 7.46 H ABG pCO2 29 L ABG pO2 78 L ABG HCO3 21 ABG O2 Saturation 96 ABG Base Excess -2 VBG pH VBG pCO2 VBG pO2 VBG O2 Sat (Guy) VBG Base Excess FiO2 35 Sodium 134 L Potassium 4.6 D Chloride 96 L Carbon Dioxide 21.3 Anion Gap 17 H BUN 70 H Creatinine 5.6 H* D Estim Creat Clear Calc 20.5 L eGFR 12 L* BUN/Creatinine Ratio 13 Glucose 202 H Calculated Osmolality 294 Lactic Acid 2.4 H Calcium 6.5 L* Corrected Calcium 7.5 L Phosphorus 6.7 H Magnesium Total Bilirubin AST ALT Alkaline Phosphatase Total Protein Albumin 2.8 L Globulin Albumin/Globulin Ratio Hepatitis A IgM Ab Hep Bs Antigen Hep B Core IgM Ab Hepatitis C Antibody Misc Test Result Blood Type Antibody Screen Blood Bank Wristband ID 03/16/25 03/16/25 03/16/25 05:13 08:10 10:15 WBC 22.9 H 24.8 H RBC 3.43 L 3.38 L Hgb 10.4 L 10.2 L Hct 32.0 L 31.1 L MCV 93 92 MCH 30.3 30.2 MCHC 32.5 32.8 RDW Std Deviation 52.4 H 51.7 H Plt Count 87 L 88 L Neut % (Auto) 85 H 83 H Lymph % (Auto) 2 L 2 L Dundy % (Auto) 4 4 Eos % (Auto) 0 0 Baso % (Auto) 0 1 Neut # (Auto) 19.4 H 20.4 H Lymph # (Auto) 0.5 L 0.6 L Dundy # (Auto) 0.8 1.0 H Eos # (Auto) 0.0 0.0 Baso # (Auto) 0.1 0.2 Immature Gran # (Auto) 2.07 H 2.53 H Absolute Nucleated RBC 0.17 H 0.18 H Immature Gran % 9 H 10 H Nucleated RBC % 1 H 1 H PT 57.0 H* D INR 5.9 H* APTT 56.7 H Fibrinogen D-Dimer Puncture Site ABG pH ABG pCO2 ABG pO2 ABG HCO3 ABG O2 Saturation ABG Base Excess VBG pH VBG pCO2 VBG pO2 VBG O2 Sat (Guy) VBG Base Excess FiO2 Sodium 136 135 L Potassium 4.8 4.9 Chloride 101 100 Carbon Dioxide 19.9 L 21.4 Anion Gap 15 14 BUN 73 H 74 H Creatinine 5.9 H* 6.2 H* Estim Creat Clear Calc 19.1 L 18.2 L eGFR 11 L* 10 L* BUN/Creatinine Ratio 12 12 Glucose 248 H 270 H Calculated Osmolality 301 H 302 H Lactic Acid 2.8 H 2.6 H Calcium 6.5 L* 6.5 L* Corrected Calcium 7.5 L 7.5 L Phosphorus 7.8 H 7.9 H Magnesium 2.4 Total Bilirubin 1.9 H AST 2208 H* ALT 3116 H* Alkaline Phosphatase 274 H Total Protein 4.7 L Albumin 2.8 L 2.7 L Globulin 1.9 L Albumin/Globulin Ratio 1.5 Hepatitis A IgM Ab Hep Bs Antigen Hep B Core IgM Ab Hepatitis C Antibody Misc Test Result Blood Type Antibody Screen Blood Bank Wristband ID ABG Interpretation ABG results: 03/14/25 03/14/25 03/14/25 14:44 16:44 18:53 ABG pH 7.03 L* 7.04 L* 7.10 L* ABG pCO2 43 50 H 46 ABG pO2 86 128 H D 57 L* D ABG HCO3 11 L 13 L 14 L ABG O2 Saturation 91 97 78 L ABG Base Excess -19 L -17 L -15 L VBG pH VBG pCO2 VBG pO2 VBG Base Excess 03/14/25 03/15/25 03/15/25 21:20 05:07 12:28 ABG pH 7.21 L D 7.41 D ABG pCO2 32 D 31 L ABG pO2 116 H D 74 L D ABG HCO3 13 L 20 ABG O2 Saturation 97 95 ABG Base Excess -14 L -4 L VBG pH 7.43 VBG pCO2 34 L VBG pO2 37 VBG Base Excess -1 03/16/25 04:51 ABG pH 7.46 H ABG pCO2 29 L ABG pO2 78 L ABG HCO3 21 ABG O2 Saturation 96 ABG Base Excess -2 VBG pH VBG pCO2 VBG pO2 VBG Base Excess Quality Measures Quality Measures none Assessment & Plan Assessment Current Active Medications: Generic Name Dose Route Start Last Admin Trade Name Lilly PRN Reason Stop Dose Admin Acetaminophen 650 mg 03/14/25 17:31 Acetaminophen Supp 650 Mg Supp MO 04/13/25 17:30 Q6HR PRN FEVER>101.5 Aspirin 81 mg 03/16/25 09:00 03/16/25 08:38 Aspirin 81 Mg Chew GT 04/15/25 08:59 81 mg QDAY MONTSERRAT Administration Clopidogrel Bisulfate 75 mg 03/15/25 10:53 03/16/25 08:38 Clopidogrel Bisulfate 75 Mg Tablet GT 04/14/25 10:29 75 mg QDAY MONTSERRAT Administration Dextrose 25 ml 03/14/25 20:38 Dextrose 50%-Water Inj 50 Ml Syringe IV 04/13/25 20:37 Q15MIN PRN BG 50-70 responsive npo pt Dextrose 50 ml 03/14/25 20:38 Dextrose 50%-Water Inj 50 Ml Syringe IV 04/13/25 20:37 Q15MIN PRN BG <50 OR BG <70 & pt unresponsive Glucagon 1 mg 03/14/25 17:36 Glucagon Inj 1 Mg Vial IM Q15MIN PRN BG <70, and no IV access Heparin Sodium (Porcine) 3,000 unit 03/16/25 01:14 03/16/25 01:30 Heparin Sod Inj 1000 Unit/Ml Vial 10 Ml INDWELLCAT 03/30/25 01:13 3,000 unit PRN PRN Administration INDWELLING CATHETER Norepinephrine/Dextrose 8 mg in 250 mls @ 9.355 mls/hr 03/14/25 19:43 03/16/25 11:00 Levophed In D5w 8mg/250ml IV 04/13/25 19:42 0.09 mcg/kg/min .Q24H PRN 16.84 mls/hr PER PROTOCOL Titration Protocol 0.05 MCG/KG/MIN Vasopressin/Sodium Chloride 20 unit in 100 mls @ 9 mls/hr 03/14/25 20:33 03/14/25 21:45 Vasostrict/Ns Ivpb IV 04/13/25 20:32 0 unit/min .Q11H7M PRN 0 mls/hr PER PROTOCOL Titration Protocol 0.03 UNIT/MIN Propofol 1,000 mg in 100 mls @ 2.994 mls/hr 03/14/25 21:07 03/16/25 10:00 Diprivan Ivpb IV 04/13/25 21:06 20 mcg/kg/min .Q24H PRN 11.975 mls/hr PER PROTOCOL Titration Protocol 5 MCG/KG/MIN Fentanyl Citrate 2,500 mcg in 250 mls @ 2.5 mls/hr 03/14/25 21:08 03/16/25 10:00 Sublimaze Inj 2,500 Mcg/250 Ml Bag IV 03/19/25 21:07 200 mcg/hr .Q24H PRN 20 mls/hr PER PROTOCOL Titration Protocol 25 MCG/HR Heparin Sodium/Dextrose 25,000 unit in 250 mls @ 10 mls/hr 03/15/25 11:30 03/15/25 15:27 Heparin In D5w Ivpb IV 03/29/25 11:29 8.673 units/kg/hr .Q24H MONTSERRAT 10 mls/hr Administration Protocol 8.673 UNITS/KG/HR Piperacillin/Tazobactam/Dextrose 2.25 gm in 50 mls @ 100 mls/hr 03/16/25 00:30 03/16/25 06:08 Zosyn IV 03/23/25 00:29 100 mls/hr Q6H MONTSERRAT Administration Amiodarone HCl/Dextrose 360 mg in 200 mls @ 16.667 mls/hr 03/16/25 10:26 Nexterone Ivpb IV 03/17/25 10:25 .Q12H MONTSERRAT Insulin Human Lispro 0 unit 03/14/25 20:45 03/16/25 05:21 Insulin Lispro (Admelog) 1 Unit/0.01 Ml Unit SC 04/13/25 20:44 2 unit Q6HR MONTSERRAT Administration Protocol Ondansetron HCl 4 mg 03/14/25 17:31 Ondansetron Inj 2 Mg/Ml Inj 2 Ml IV 04/13/25 17:30 Q6H PRN NAUSEA OR VOMITING Protocol Pantoprazole Sodium 40 mg 03/14/25 21:00 03/16/25 08:38 Pantoprazole Inj 40 Mg Vial IVP 04/13/25 20:59 40 mg BID MONTSERRAT Administration Plan 49-year-old male with past medical history of DM2, hypertension, ESRD (HD ), HFpEF (EF 55% on 2021), and right BKA due to osteomyelitis was admitted to the ICU on 03/14/2025 for acute hypoxic respiratory failure, acute encephalopathy, and shock. 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 Patient again went into SVT and received adenosine 6mg x1 and adenosine 12mg x1 before being cardioverted. Repeat EKG showed what appears to be MAT. [id number] score of 3 points indicating 3.2% risk of stroke per year HAS-BLED score of 5 points Patient was placed on amiodarone drip, will continue for now #Troponinemia Troponins peaked at 7.899 and down trended to 7.04 EKG done overnight that shows some ST depressions in lead II and V3 to V6 Will continue on aspirin, Plavix, and heparin drip Bedside echo did not show any wall abnormalities Cardiology consulted, appreciate recommendations #HFpEF (EF 55% on 2021) Patient does have an echo on file from 2021 that they show EF of 55% Given positive U tox patient could have some dilated cardiomyopathy Given shortness of breath recently along with increased weight as of recently patient could be having an acute decompensated heart failure exacerbation Echo pending Daily weights Strict JENN's Respiratory: #Acute hypoxic respiratory failure #Respiratory acidosis Intubated on 03/14/2025 ABG this morning showed some alkalosis with pH 7.46, PCO2 of 29, and PO2 of 78 Chest x-ray today showed improvement in patient's right lower lung We will order repeat ABG given that vent changes were made due to respiratory alkalosis seen on morning ABG Will plan for bronchoscopy. Will continue to monitor with daily ABGs and chest x-rays Renal: #ESRD (HD on ) #HAGMA, improving #Lactic acidosis, improving Last hemodialysis on Saturday (got more doses last week given increased and fluid retention) Bicarb 21.4 and anion gap 14 Lactic acid today was 2.6 Will continue to trend lactic Patient will undergo CRRT for 24 hours today Avoid nephrotoxic agents Renally dose medications Consults nephrology, appreciate recommendations #Hypocalcemia Admission calcium 6.5 and 7.5 corrected this morning Patient got additional calcium gluconate 1 g this a.m. #Hyperkalemia, resolved GI: #Possible GI bleed #Hematemesis Patient's hemoglobin is stable at this time currently at 10.4 #Transaminitis #Hepatomegaly Possible liver failure due to methamphetamine use? Liver enzymes are downtrending currently at AST 2200, ALT 3116 Could be due to shock liver versus hypoxia versus drug-induced Hepatitis panel negative and abdominal ultrasound that shows some hepatomegaly with possible cirrhosis versus hepatocellular disease. MSK: #Possible acute vs chronic limb ischemia Abdomen CTA with runoff that showed occlusion of multiple arteries including the left radial, gluteal, and tibial arteries as well as 90% stenosis of the left superficial femoral artery Also showed 80% stenosis of right superficial femoral artery Vascular surgeon stated that patient most likely has some chronic peripheral vascular disease which was worsened with patient's current condition of shock requiring vasopressors. Stated that patient is not a candidate at this time for revascularization surgery and to continue supportive measures for now and try and wean off vasopressors. Endo: #DM2 #Hypoglycemia, resolved ISS Hypoglycemia protocol ordered Heme: #Hypercoagulopathy #DIC PTT above 63 and PTT 63.2, Fibrinogen 140, and D-Dimer 3480 which is consistent with DIC on 03/15/2025 Got 11 units of cryoprecipitate Repeated DIC panel #Leukocytosis WBC 22.9 today Most likely infectious given history of pneumonia Sputum cultures positive for GNR's Continue Zosyn #Macrocytic anemia #Thrombocytopenia Hemoglobin 10.4 and platelets 87 today No active signs of bleeding Will continue to monitor ID: #Community-acquired pneumonia Chest x-ray showed pneumonia of right base Discontinue vancomycin MRSA nares negative Blood cultures negative in 24 hours and sputum culture positive for GNR's Continue Zosyn Social: Positive U tox for meth and marijuana Hospital Maintenance: Diet: NPO DVT ppx: SCDs, chemical prophylaxis held given possible GI bleed GI ppx: Protonix IV IV lines: PIV, CIV (LIJ/R femoral) Cruz: cruz cath Code status: DNR Dispo: ICU in the setting of shock and acute hypoxic respiratory failure Case disclosed with Attending Dr. Jersey Lee PGY1
[2025-03-16] MEDS: AMIODARONE 360 MG IVPB 360 MG/200 ML BAG 16.667 MG IV (11:14)
[2025-03-16 11:29] LABS: D-Dimer 3430 ng/mL (<600)
[2025-03-16 11:59] LABS: Creatine Kinase 141 U/L (34-171)
[2025-03-16 12:12] LABS: Inspired Oxygen, FIO2 35 %
[2025-03-16] MEDS: ROCURONIUM INJ 10 MG/ML VIAL 10 ML 100 MG IVP (12:14)
[2025-03-16 12:15] LABS: Base Excess -2 (-3-3); HCO3 27 mEq/L (20-26); O2 Saturation 91 % (91-98); PCO2 66 mmHg (32.0-48.0); PO2 79 mmHg (83-108); pH, Arterial 7.22 (7.35-7.45)
[2025-03-16 12:16] LABS: Allen Test Not Performed; Puncture Site Right Brachial
[2025-03-16] MEDS: ADENOSINE INJ 3 MG/ML VIAL 6 MG IVP (12:17)
[2025-03-16] MEDS: ADENOSINE INJ 3 MG/ML VIAL 12 MG IVP (12:18)
--- NOTE | 2025-03-16 12:21 | EKG_ITS ---
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
--- NOTE | 2025-03-16 13:06 | PC.SS ---
Update: Patient receiving continious dialysis today.
[2025-03-16 13:19] LABS: Fibrinogen 207 mg/dL (175-375); Partial Thromboplastin Time 63.4 Seconds (22.0-36.0)
[2025-03-16 13:31] LABS: INR 5.9 (0.9-1.3); Prothrombin Time 56.6 Seconds (9.0-12.2)
--- NOTE | 2025-03-16 14:53 | ESPR_ITS ---
RE: COVERTCLEMENTE : 1975 DATE OF SERVICE: 03/16/2025 HISTORY OF PRESENT ILLNESS: Briefly, he is a 49-year-old male with type 2 diabetes, hypertension, ESRD on dialysis every Saturday, , and Saturday, noncompliant with dialysis treatment, usually goes to dialysis once a week, heart failure with preserved ejection fraction and right BKA, who presented to the emergency room with altered level of consciousness, was intubated and admitted to ICU. The patient also has hypertension, was started on vasopressor and also PIRRT. The patient is somehow tolerating PIRRT. Family by the bedside. CURRENT MEDICATIONS: 1. Acetaminophen. 2. Amiodarone. 3. Adenosine. 4. Calcium 1 g IV. 5. Plavix 75 mg daily. PHYSICAL EXAMINATION: General: Intubated, sedated. Vital Signs: Blood pressure 139/71, heart rate of 62. HEENT: Anicteric sclerae. Normocephalic. Neck: Supple. No JVD. Chest and Lungs: Decreased breath sounds bilaterally. Cardiac: Without murmur. Abdomen: Soft, nondistended. Extremities: Right BKA. Upper and lower extremity edema. LABORATORY DATA: Hemoglobin 10.2, WBC 24,800, platelet count 88,000. Sodium 135, potassium 4.9, chloride 100, CO2 of 21.4, BUN 74, creatinine 6.2, glucose 270, calcium corrected 7.5, phosphorus 7.9. ET secretion showed gram negative rods, nasal screen negative for MRSA. ASSESSMENT: 1. Respiratory failure. 2. Sepsis. 3. Elevated liver enzymes, most likely secondary to ischemic liver. 4. Substance abuse. 5. Thrombocytopenia secondary to sepsis. PLAN: Continue PIRRT for now with the intent of removing 6 liters for 24 hours. Continue IV antibiotics. Continue supportive treatment given his multi-organ failure. Prognosis is guarded. DT: 13:45:33 TT: 14:52:00 Ref: [id number] - TID: [id number]
--- NOTE | 2025-03-16 15:11 | PD.RESPROC ---
Procedures Procedure Date / Time 03/16/25 1511 Procedural Time Out Time out performed: yes Procedure Narrative Procedure Narrative: A time out was performed. My hands were washed immediately prior to the procedure. I wore a surgical cap, mask, sterile gown and sterile gloves throughout the procedure.The Left groin was prepped using chlorhexidine scrub and draped in sterile fashion. The femoral pulse was identified and the leg was positioned in the usual fashion. Using the finder needle the femoral artery was punctured and arterial blood was visualized. The internal guidewire was advanced easily into the femoral artery and catheter was advanced, but no arterial blood flow was seen. At this time procedure was aborted to keep the patient's femoral artery patent given his extensive vascular disease. There was no excessive bleeding from site and pressure dressing was placed over point of entry. Case discussed and supervised by attending Dr. Jersey Lee MD PGY1 Arterial Line Indication(s): frequent arterial line sampling and shock Informed consent obtained: obtained from surrogate decision maker Time out done, and the following verified: correct patient, side and site, procedure, patient position and implants and/or equipment Size (Gauge): 20 Technique used: direct puncture technique Patient tolerated procedure: well and no complications EBL(ml): 8 Complications: none Site: left and femoral Procedure comment: Procedure aborted.
--- NOTE | 2025-03-16 15:50 | PC.DIETICIAN ---
Nutrition prescription Vital 1.2 at 20 ml/hr via OG tube by pump. Advance 10 ml every 8 hrs to goal rate of 55 ml/hr x 24 hrs. If no IV fluids, water flushes of 25 ml/hr (or per MD).
[2025-03-16] MEDS: fentaNYL 2,500 MCG/250 ML BAG 2,500 MCG/250 ML BAG 15 MCG IV (16:13)
[2025-03-16] MEDS: Heparin/D5w 25K 250 ML Ivpb 25,000 UNIT/250 ML BAG 10 UNIT IV (16:13)
--- NOTE | 2025-03-16 16:15 | ECHO_ITS ---
Transthoracic Echo Report Ht (in): 72 Wt (lb): 246 Exam Location: Portable Status: Inpatient Rfid Developer: LARISSA Solares^^^^ Indications: Procedure Performed: BP: 116 / 78 HR: 60 Technical Quality: Fair MEASUREMENTS (Male / Female) Normal Values 2D ECHO LV Diastolic Diameter PLAX 5.6 cm 4.2 - 5.9 / 3.9 - 5.3 cm LV Systolic Diameter PLAX 4.0 cm IVS Diastolic Thickness 1.1 cm 0.6 - 1.0 / 0.6 - 0.9 cm LVPW Diastolic Thickness 1.1 cm 0.6 - 1.0 / 0.6 - 0.9 cm LV Relative Wall Thickness 0.4 LVOT Diameter 1.8 cm Aortic Root Diameter 3.1 cm LA Systolic Diameter LX 5.0 cm 3.0 - 4.0 / 2.7 - 3.8 cm LV Ejection Fraction MOD 4C 55.7 % LV Cardiac Index MOD 4C 4223.8 cm?/min?m? LV Ejection Fraction 4C AL 55.8 % LV Cardiac Index 4C AL 4217.8 cm?/min?m? LA Volume Index 45.9 cm?/m? 16 - 28 cm?/m? DOPPLER AV Peak Velocity 155.0 cm/s AV Peak Gradient 9.6 mmHg AV Mean Gradient 5.0 mmHg AV Velocity Time Integral 27.2 cm LVOT Peak Velocity 93.1 cm/s LVOT Peak Gradient 3.5 mmHg LVOT Velocity Time Integral 25.4 cm LVOT Cardiac Index 1605.9 cm?/min?m? AV Area Cont Eq vti 2.4 cm? AV Area Cont Eq pk 1.5 cm? MV Area PHT 2.7 cm? Mitral E Point Velocity 67.3 cm/s Mitral A Point Velocity 60.8 cm/s Mitral E to A Ratio 1.1 LV E' Lateral Velocity 5.2 cm/s Mitral E to LV E' Lateral Ratio 13.0 LV E' Septal Velocity 5.9 cm/s Mitral E to LV E' Septal Ratio 11.4 TR Peak Velocity 328.0 cm/s TR Peak Gradient 43.0 mmHg PV Peak Velocity 118.0 cm/s PV Peak Gradient 5.6 mmHg RVOT Peak Velocity 54.7 cm/s FINDINGS Left Ventricle The left ventricular ejection fraction is normal, estimated at 45-50%. Regional wall motion abnormalities are present. There is grade II diastolic dysfunction of the left ventricle (pseudonormal filling pattern). Right Ventricle The right ventricle is normal in size and systolic function. The estimated right ventricular systolic pressure, 50 mmHg. Left Atrium Mildly increased left atrial volume 45.9 mL/m?. Right Atrium The right atrial cavity size is mildly increased. Atrial Septum The interatrial septum appears normal with no evidence of a shunt. Aorta The aorta is normal by two-dimensional, color flow and Doppler interrogation. Mitral Valve Trace to mild mitral regurgitation. Mild mitral annular calcification. Aortic Valve Findings consistent with vegetation on the aortic valve. Tricuspid Valve There is mild to moderate tricuspid valve regurgitation. Pulmonic Valve Trivial pulmonic valve regurgitation. Vessels The pulmonary artery appears normal. The inferior vena cava pulmonary and hepatic veins appear normal. Pericardium The pericardium is normal by two-dimensional imaging. There is no significant pericardial effusion. CONCLUSIONS indication: Nstemi Hypotension LV appears normal with EF 45-50%. Septal dyskinesis is seen. RV appears normal with RVSP 50 mmHg. Mildly dilated LA & RA Mild mitral regurgitation Mild-Moderate TR Camelia Kline (Electronically Signed) Final Date: 16 March 2025 13:40
--- NOTE | 2025-03-16 18:05 | PC.NURSE ---
At 1216 patient heart rate in the 200's. MD Putnam at bedside and is aware. Pt given 6mg Adenosine IVP with no heart rate improvement. An additional 12mg Adenosine IVP given with no heart rate control. Patient was then hooked up to the Zoll monitor and as shocked with 120J at 1219. Patient then converted to rate controlled atrial fibrillation in the 70's.
--- NOTE | 2025-03-16 18:13 | PC.NURSE ---
Patient undergoing TABLO. TABLO machine kept alarming that there was a low arterial pressure. The arterial lines were assessed to make sure there was no kinks, pt's head was repositioned, and a 50mL saline bolus was administered through TABLO machine. Although, alarm kept beeping with low arterial pressure, the TABLO machine would also not let us bolus the patient due to an alarm saying the yellow saline clamp was clamped. The clamp was assessed, but it was not in fact clamped. Pt's blood was unable to be returned due to the clot time. [facility] hotline was called and I spoke to Ronaldo regarding case#[id number] per Ronaldo it is too late to return the blood to the patient so therefore the blood was discarded. MD Fountain was called and made aware. H&H ordered and adjustments were made in order to continue the [facility] treatment as ordered per the .
[2025-03-16 18:52] LABS: Hematocrit 30.7 % (41.0-53.0)
[2025-03-16 19:15] LABS: Partial Thromboplastin Time 66.3 Seconds (22.0-36.0)
[2025-03-16 19:42] LABS: Base Excess 3 (-3-3); HCO3 29 mEq/L (20-26); Inspired Oxygen, FIO2 100 %; O2 Saturation 100 % (91-98); PCO2 48 mmHg (32.0-48.0); PO2 236 mmHg (83-108); pH, Arterial 7.38 (7.35-7.45)
[2025-03-16 19:43] LABS: Allen Test Performed/OK; Puncture Site Right Radial
--- NOTE | 2025-03-16 20:46 | ESPR_ITS ---
<Statement entered by Yanci Villalobos MD - 03/17/25 18:21> The patient is evaluated with intensive care and remains critical condition requiring vasopressors patient's developed atrial fibrillation rapid heart rate requiring shocks recommended amiodarone continues to tolerate amiodarone so far rate controlled well patient did have a cardiac echo that showed evidence of mild to moderate LV dysfunction, evaluate the patient and agree with the treatment plan recommendation as documented by PGY 3 Dr. Lito White Will continue the current medical management control of arrhythmias and also conservative medical management patient probably had acute non-ST segment elevation microinfarction possibly has significant CAD as well but not a good candidate for any cardiac intervention or angiogram at this time. Condition remains critical prognosis guarded Documentation for date of: 03/16/25 Subjective Subjective Interval history: Patient seen and examined in the ICU. [facility]. Had an episode of SVT yesterday, had to be shocked. On Amio drip. Exam Vital Signs Temp Pulse Resp BP Pulse Ox O2 Del Method O2 Flow Rate 98.6 F 88 16 103/67 100 Mechanical Ventilation 50 03/16/25 18:01 03/16/25 20:30 03/16/25 18:01 03/16/25 20:30 03/16/25 20:00 03/16/25 04:00 03/14/25 18:09 FiO2 100 03/16/25 20:00 Narrative Exam General: Mechanically ventilated, sedated Eyes: Pupils sluggish, mildy icteric. Ears: No visible ear discharge Nose: No visible nasal discharge. Mouth/Throat: Dry mucous membranes, no redness, no lesions. Neck: Neck supple, no cervical lymphadenopathy. Lungs: Clear CHRISTIANO in upper lobes, mildly decreased in lower lobes Cardio: Normal S1/S2, irregular, no murmurs, no JVD Abdomen: Soft, non-tender, no palpable masses, peristalsis present, no guarding or rebound, swollen in the lower abdomen and some mild ascites. Extremities: Right BKA with cyanotic changes at the stump, left foot demarcated purplish discoloration which increased in size, compared to yesterday, right upper extremity still swollen and digits are still very dark in color yet have improved from yesterday evening. Skin: Improvement in right upper extremity digit discoloration, but still worse on the right than on the left. Skin injury with purple discoloration in the lateral right thigh now does have some fluid-filled bullae, indurated redness demarcated rash in the inner right thigh unchanged in size Neuro: Mechanically ventilated and sedated, pupils very sluggish today. Objective Labs 03/17/25 04:58 03/17/25 04:58 Labs: Laboratory Results - last 24 hr 03/14/25 03/15/25 03/15/25 17:35 20:37 21:56 WBC RBC Hgb Hct MCV MCH MCHC RDW Std Deviation Plt Count Neut % (Auto) Lymph % (Auto) [place] % (Auto) Eos % (Auto) Baso % (Auto) Neut # (Auto) Lymph # (Auto) [place] # (Auto) Eos # (Auto) Baso # (Auto) Immature Gran # (Auto) Absolute Nucleated RBC Immature Gran % Nucleated RBC % PT INR APTT 63.5 H Fibrinogen D-Dimer Puncture Site ABG pH ABG pCO2 ABG pO2 ABG HCO3 ABG O2 Saturation ABG Base Excess FiO2 Sodium 137 Potassium 4.0 D Chloride 101 Carbon Dioxide 23.1 Anion Gap 13 BUN 56 H Creatinine 4.6 H* D Estim Creat Clear Calc 24.9 L eGFR 15 L BUN/Creatinine Ratio 12 Glucose 169 H Calculated Osmolality 293 Lactic Acid 2.0 Calcium 7.0 L D Corrected Calcium 7.8 L Phosphorus 5.6 H Magnesium Total Bilirubin AST ALT Alkaline Phosphatase Total Creatine Kinase Total Protein Albumin 3.0 L Globulin Albumin/Globulin Ratio Blood Type A Positive Antibody Screen NEGATIVE Crossmatch Blood Bank Wristband ID Yes 03/16/25 03/16/25 03/16/25 00:40 04:51 05:13 WBC 22.9 H RBC 3.43 L Hgb 10.4 L Hct 32.0 L MCV 93 MCH 30.3 MCHC 32.5 RDW Std Deviation 52.4 H Plt Count 87 L Neut % (Auto) 85 H Lymph % (Auto) 2 L [place] % (Auto) 4 Eos % (Auto) 0 Baso % (Auto) 0 Neut # (Auto) 19.4 H Lymph # (Auto) 0.5 L [place] # (Auto) 0.8 Eos # (Auto) 0.0 Baso # (Auto) 0.1 Immature Gran # (Auto) 2.07 H Absolute Nucleated RBC 0.17 H Immature Gran % 9 H Nucleated RBC % 1 H PT INR APTT Fibrinogen D-Dimer Puncture Site Right Radial ABG pH 7.46 H ABG pCO2 29 L ABG pO2 78 L ABG HCO3 21 ABG O2 Saturation 96 ABG Base Excess -2 FiO2 35 Sodium 134 L 136 Potassium 4.6 D 4.8 Chloride 96 L 101 Carbon Dioxide 21.3 19.9 L Anion Gap 17 H 15 BUN 70 H 73 H Creatinine 5.6 H* D 5.9 H* Estim Creat Clear Calc 20.5 L 19.1 L eGFR 12 L* 11 L* BUN/Creatinine Ratio 13 12 Glucose 202 H 248 H Calculated Osmolality 294 301 H Lactic Acid 2.4 H 2.8 H Calcium 6.5 L* 6.5 L* Corrected Calcium 7.5 L 7.5 L Phosphorus 6.7 H 7.8 H Magnesium 2.4 Total Bilirubin 1.9 H AST 2208 H* ALT 3116 H* Alkaline Phosphatase 274 H Total Creatine Kinase Total Protein 4.7 L Albumin 2.8 L 2.8 L Globulin 1.9 L Albumin/Globulin Ratio 1.5 Blood Type Antibody Screen Crossmatch Blood Bank Wristband ID 03/16/25 03/16/25 03/16/25 08:10 10:15 11:48 WBC 24.8 H RBC 3.38 L Hgb 10.2 L Hct 31.1 L MCV 92 MCH 30.2 MCHC 32.8 RDW Std Deviation 51.7 H Plt Count 88 L Neut % (Auto) 83 H Lymph % (Auto) 2 L [place] % (Auto) 4 Eos % (Auto) 0 Baso % (Auto) 1 Neut # (Auto) 20.4 H Lymph # (Auto) 0.6 L [place] # (Auto) 1.0 H Eos # (Auto) 0.0 Baso # (Auto) 0.2 Immature Gran # (Auto) 2.53 H Absolute Nucleated RBC 0.18 H Immature Gran % 10 H Nucleated RBC % 1 H PT 57.0 H* D 56.6 H* INR 5.9 H* 5.9 H* APTT 56.7 H 63.4 H Fibrinogen 207 D-Dimer 3430 H Puncture Site Right Brachial ABG pH 7.22 L D ABG pCO2 66 H D ABG pO2 79 L ABG HCO3 27 H ABG O2 Saturation 91 ABG Base Excess -2 FiO2 35 Sodium 135 L Potassium 4.9 Chloride 100 Carbon Dioxide 21.4 Anion Gap 14 BUN 74 H Creatinine 6.2 H* Estim Creat Clear Calc 18.2 L eGFR 10 L* BUN/Creatinine Ratio 12 Glucose 270 H Calculated Osmolality 302 H Lactic Acid 2.6 H Calcium 6.5 L* Corrected Calcium 7.5 L Phosphorus 7.9 H Magnesium Total Bilirubin AST ALT Alkaline Phosphatase Total Creatine Kinase 141 D Total Protein Albumin 2.7 L Globulin Albumin/Globulin Ratio Blood Type Antibody Screen Crossmatch Blood Bank Wristband ID 03/16/25 03/16/25 03/16/25 18:32 19:30 19:34 WBC RBC Hgb 10.0 L Hct 30.7 L MCV MCH MCHC RDW Std Deviation Plt Count Neut % (Auto) Lymph % (Auto) [place] % (Auto) Eos % (Auto) Baso % (Auto) Neut # (Auto) Lymph # (Auto) [place] # (Auto) Eos # (Auto) Baso # (Auto) Immature Gran # (Auto) Absolute Nucleated RBC Immature Gran % Nucleated RBC % PT INR APTT 66.3 H Fibrinogen D-Dimer Puncture Site Right Radial ABG pH 7.38 D ABG pCO2 48 D ABG pO2 236 H D ABG HCO3 29 H ABG O2 Saturation 100 H ABG Base Excess 3 FiO2 100 Sodium Potassium Chloride Carbon Dioxide Anion Gap BUN Creatinine Estim Creat Clear Calc eGFR BUN/Creatinine Ratio Glucose Calculated Osmolality Lactic Acid Calcium Corrected Calcium Phosphorus Magnesium Total Bilirubin AST ALT Alkaline Phosphatase Total Creatine Kinase Total Protein Albumin Globulin Albumin/Globulin Ratio Blood Type Antibody Screen Crossmatch See Detail Blood Bank Wristband ID Yes ABG Interpretation ABG results: 03/14/25 03/14/25 03/14/25 14:44 16:44 18:53 ABG pH 7.03 L* 7.04 L* 7.10 L* ABG pCO2 43 50 H 46 ABG pO2 86 128 H D 57 L* D ABG HCO3 11 L 13 L 14 L ABG O2 Saturation 91 97 78 L ABG Base Excess -19 L -17 L -15 L VBG pH VBG pCO2 VBG pO2 VBG Base Excess 03/14/25 03/15/25 03/15/25 21:20 05:07 12:28 ABG pH 7.21 L D 7.41 D ABG pCO2 32 D 31 L ABG pO2 116 H D 74 L D ABG HCO3 13 L 20 ABG O2 Saturation 97 95 ABG Base Excess -14 L -4 L VBG pH 7.43 VBG pCO2 34 L VBG pO2 37 VBG Base Excess -1 03/16/25 03/16/25 03/16/25 04:51 11:48 19:30 ABG pH 7.46 H 7.22 L D 7.38 D ABG pCO2 29 L 66 H D 48 D ABG pO2 78 L 79 L 236 H D ABG HCO3 21 27 H 29 H ABG O2 Saturation 96 91 100 H ABG Base Excess -2 -2 3 VBG pH VBG pCO2 VBG pO2 VBG Base Excess Quality Measures Quality Measures none Assessment & Plan Assessment Current Active Medications: Generic Name Dose Route Start Last Admin Trade Name Freq PRN Reason Stop Dose Admin Acetaminophen 650 mg 03/14/25 17:31 Acetaminophen Supp 650 Mg Supp MN 04/13/25 17:30 Q6HR PRN FEVER>101.5 Aspirin 81 mg 03/16/25 09:00 03/16/25 08:38 Aspirin 81 Mg Chew GT 04/15/25 08:59 81 mg QDAY MONTSERRAT Administration Clopidogrel Bisulfate 75 mg 03/15/25 10:53 03/16/25 08:38 Clopidogrel Bisulfate 75 Mg Tablet GT 04/14/25 10:29 75 mg QDAY MONTSERRAT Administration Dextrose 25 ml 03/14/25 20:38 Dextrose 50%-Water Inj 50 Ml Syringe IV 04/13/25 20:37 Q15MIN PRN BG 50-70 responsive npo pt Dextrose 50 ml 03/14/25 20:38 Dextrose 50%-Water Inj 50 Ml Syringe IV 04/13/25 20:37 Q15MIN PRN BG <50 OR BG <70 & pt unresponsive Glucagon 1 mg 03/14/25 17:36 Glucagon Inj 1 Mg Vial IM Q15MIN PRN BG <70, and no IV access Heparin Sodium (Porcine) 3,000 unit 03/16/25 01:14 03/16/25 01:30 Heparin Sod Inj 1000 Unit/Ml Vial 10 Ml INDWELLCAT 03/30/25 01:13 3,000 unit PRN PRN Administration INDWELLING CATHETER Norepinephrine/Dextrose 8 mg in 250 mls @ 9.355 mls/hr 03/14/25 19:43 03/16/25 19:26 Levophed In D5w 8mg/250ml IV 04/13/25 19:42 0.05 mcg/kg/min .Q24H PRN 9.355 mls/hr PER PROTOCOL Titration Protocol 0.05 MCG/KG/MIN Vasopressin/Sodium Chloride 20 unit in 100 mls @ 9 mls/hr 03/14/25 20:33 03/14/25 21:45 Vasostrict/Ns Ivpb IV 04/13/25 20:32 0 unit/min .Q11H7M PRN 0 mls/hr PER PROTOCOL Titration Protocol 0.03 UNIT/MIN Propofol 1,000 mg in 100 mls @ 2.994 mls/hr 03/14/25 21:07 03/16/25 19:52 Diprivan Ivpb IV 04/13/25 21:06 20 mcg/kg/min .Q24H PRN 11.975 mls/hr PER PROTOCOL Administration Protocol 5 MCG/KG/MIN Fentanyl Citrate 2,500 mcg in 250 mls @ 2.5 mls/hr 03/14/25 21:08 03/16/25 19:00 Sublimaze Inj 2,500 Mcg/250 Ml Bag IV 03/19/25 21:07 150 mcg/hr .Q24H PRN 15 mls/hr PER PROTOCOL Titration Protocol 25 MCG/HR Heparin Sodium/Dextrose 25,000 unit in 250 mls @ 10 mls/hr 03/15/25 11:30 03/16/25 19:26 Heparin In D5w Ivpb IV 03/29/25 11:29 8.673 units/kg/hr .Q24H MONTSERRAT 10 mls/hr Titration Protocol 8.673 UNITS/KG/HR Piperacillin/Tazobactam/Dextrose 2.25 gm in 50 mls @ 100 mls/hr 03/16/25 00:30 03/16/25 18:28 Zosyn IV 03/23/25 00:29 100 mls/hr Q6H MONTSERRAT Administration Amiodarone HCl/Dextrose 360 mg in 200 mls @ 16.667 mls/hr 03/16/25 10:26 03/16/25 11:14 Nexterone Ivpb IV 03/17/25 10:25 16.667 mls/hr .Q12H MONTSERRAT Administration Insulin Human Lispro 0 unit 03/14/25 20:45 04/22/25 18:27 Insulin Lispro (Admelog) 1 Unit/0.01 Ml Unit SC 04/13/25 20:44 1 unit Q6HR MONTSERRAT Administration Protocol Ondansetron HCl 4 mg 03/14/25 17:31 Ondansetron Inj 2 Mg/Ml Inj 2 Ml IV 04/13/25 17:30 Q6H PRN NAUSEA OR VOMITING Protocol Pantoprazole Sodium 40 mg 03/14/25 21:00 03/16/25 08:38 Pantoprazole Inj 40 Mg Vial IVP 04/13/25 20:59 40 mg BID MONTSERRAT Administration Plan 49-year-old male with past medical history of DM2, hypertension, ESRD (HD ), HFpEF (EF 55% on 2021), and right BKA due to osteomyelitis was admitted to the ICU on 03/14/2025 for acute hypoxic respiratory failure, acute encephalopathy, and shock. #Shock, undifferentiated #SVT #Shock liver # Tachyarrhythmia, unknown etiology #Elevated troponin likely NSTEMI type II supply and demand #HFpEF (EF 55% on 2021) #Lower extremity ischemia? Assessment: Unknown etiology of shock at this time There could be a mixed component of shock. Could be dealing with multifactorial due to possible cardiogenic shock in the setting of the patient being cold wet with elevated lactic acid in the low EF. Return patient's cardiac index and SVI to determine if the patient is in an acute state of cardiogenic shock. Further data points need to be provided to assess and identify cardiogenic shock. Also patient having bilateral pneumonia with elevated lactic acid leukocytosis could be a potential for septic shock. However the degree of patient's fluid overload due to ESRD and the decrease in ejection fraction needs towards patient suffering from a cardiogenic shock. Also patient having lower extremity ischemia is potential due to patient's no pulses were felt and cold extremities. The ICU team tried to rule out lower limb ischemia with a CTA lower extremity runoff. There was a concern for supraventricular tachycardia and route to the hospital the patient was shocked once on over the patient was unstable at that time or if there was an underlying rhythm such as atrial fibrillation or a flutter. Patient was placed on a diltiazem drip however it is discontinued at this point. Upon arrival it was found the patient to have elevated troponins which peaked at 7.8 are currently downtrending. Electrolytes were within normal limits. Patient also has history of HFpEF EF 55% 2021. 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 Likely etiology of the patient's Cefobid could be due to dilated cardiomyopathy meth induced. Patient was also complaining of shortness of breath and increasing weight per family. 03/16/25: Patient still on norepi, vaso, and PIRRT. CT LER showed diffussed stenosis on the arteries of the LLE, occlusions in almost all major arteries. Vascular surgeon stated that the patient is not a candidate at this time for revascularization. Echo was done showed LV appears normal with EF 45-50%. Septal dyskinesis is seen, RV appears normal with RVSP 50 mmHg. Mildly dilated LA & RA Mild mitral regurgitation Mild-Moderate TR. We measured an estimate cardiac output using LVOT VTI from echo showing unlikely cardiogenic shock. To further assess RV function consider TAPSE/PAPSE calculation with POCUS or PA catheter for mix-venous gas for the calculation of Ficks formula or thermodilution for CO/CI. However with LVOT-VTI has shown good performance in estimating CO/CI. Also patient was shocked x1 due an episode of SVT, was started on amio drip. Prognosis is poor. We calculate with HR of 60: -LVOT area: 2.54 cm^2 -Stroke Volume: 64.52 mL -Cardiac output: 3.87 L/min Recommendations: -Antiarrythmic: amiodarone drip -Pressors: norepinephrine and vasopressin -Maintain electrolytes such as potassium magnesium and phosphorus within normal limits -CRRT for fluid overload -Currently patient too unstable for heart catheterization -Hold off on beta-blockers, calcium channel blockers #Acute hypoxic respiratory failure on mechanical intubation #Respiratory acidosis #ESRD (HD on ) #HAGMA #Lactic acidosis #Hyperkalemia #Possible GI bleed #Hematemesis #DM2 #Hypoglycemia #Leukocytosis #Macrocytic anemia #Thrombocytopenia #Community-acquired pneumonia ?Defer management to the intensive care unit team. - Patient's care was discussed with my attending physician, Dr. Wilfredo De Leon MD Internal Medicine PGY-3
[2025-03-17] VITALS (107 sets, daily range): BP systolic 85–135; BP diastolic 50–80; PULSE 64–124; RESP 0–18; TEMP 36.4–37; O2SAT 94–100; BMI 34.2
--- NOTE | 2025-03-17 | XR_ITS ---
Examination: Central line placement, triple lumen catheter. Ultrasound-guided needle placement right subclavian vein. Fluoroscopy AP Chest, portable single view Exam date and time: March 17, 2025 1447 hours INDICATIONS: Need for long-term intravenous medication. Informed consent provided Technique: A timeout was completed, verifying correct patient, procedure, site, positioning, and special equipment if applicable The patient was placed in a dependent position appropriate for central line placement based on the vein to be cannulated. The patient's right chest was prepped and draped in sterile fashion. Maximum Sterile Barrier Technique used including cap, mask, sterile gown, sterile gloves, and sterile full body drape. If ultrasound technique used: sterile gel and sterile probe covers. Hand Hygiene performed using proper scrub, soap and water, or alcohol-based hand rub. Site right portable apparatus utilized to confirm patency of the right subclavian vein Utilizing ultrasonographic guidance successful 21-gauge needle puncture into the right subclavian vein. Ultrasound images were recorded and stored. Successful micropuncture with a 21-gauge needle was performed. 0.18 wire guide was introduced into the IVC under fluoroscopic guidance. The wires is then exchanged for a 0.25 J-wire guide placed in the vena cava. The triple lumen catheter dilator is introduced, followed by the catheter in the SVC in proper position under fluoroscopic guidance. Successful aspiration of blood and flushing with heparinized saline is then performed in the 3 venous limbs. The catheter is sutured in place to the skin and a sterile dressing applied. Perfusion to the extremity distal to the point of catheter insertion was checked and found to be adequate The attending radiologist was present for the entire procedure Estimated blood loss1 cc. Findings: Under fluoroscopy, the tip of the catheter is in good position in the vena cava. Portable chest x-ray, post line placement, as ordered. Impression: Successful ultrasound-guided needle placement right subclavian vein. Successful placement of triple lumen catheter central line, percutaneous. Fluoroscopy 0.5 minute radiation dose 4.57 milligray 1 spot fluoroscopic chest film. AP portable chest completion procedure demonstrates satisfactory position central line tip SVC. May use central line.
[2025-03-17] MEDS: PIPER/TAZO 2.25 GM 2.25 GM/50 ML BAG IV ×3 (00:28→14:06)
[2025-03-17] MEDS: AMIODARONE 360 MG IVPB 360 MG/200 ML BAG 16.667 MG IV ×2 (00:29→14:02)
[2025-03-17] MEDS: Norepinephrine/D5W 8mg/250ml 8 MG/250 ML BAG 5.613 MG IV (03:40)
[2025-03-17] MEDS: PROPOFOL 1,000 MG IVPB 1,000 MG/100 ML VIAL 14.969 MG IV (05:00)
[2025-03-17 05:31] LABS: Base Excess 3 (-3-3); HCO3 29 mEq/L (20-26); Inspired Oxygen, FIO2 40 %; O2 Saturation 95 % (91-98); PCO2 49 mmHg (32.0-48.0); PO2 78 mmHg (83-108); pH, Arterial 7.38 (7.35-7.45)
[2025-03-17 05:33] LABS: Allen Test Performed/OK; Puncture Site Right Radial
--- NOTE | 2025-03-17 05:36 | PC.NURSE ---
called [facility] ([facility]) at [phone] requarding high arterial pressure after flushing no change advised to change cartridge after giving back blood to patient paused dialysis to change cartridge due to high arterial pressure at 22:15-restarted at 22:25 paused dialysis to change cartridge due to TMP baseline -8 changed to -42 at 0420 restarted at 0445-Dr Fountain notified of presents of blood clots in [place] and rinsed fluids- orders received to flush arterial line with 500 unit of heparin new baseline -27- [facility] shows dialysis flow rate to be n/a with blood flow rate of 300- called [facility](Dialysis) and left message to call me back-
[2025-03-17 06:21] LABS: Basophils # (Auto) 0.1 Thou/mm3 (0.0-0.2); Basophils % (Auto) 1 % (0-2.5); Eosinophils % (Auto) 0 % (0-10); Hematocrit 30.3 % (41.0-53.0); Hemoglobin 9.4 g/dL (13.5-16.0); Immature Granulocytes % (Auto) 11 % (0-0); Immature Granulocytes Auto 2.82 Thou/mm3 (0.00-0.00); Lymphocytes % (Auto) 4 % (10-50); Mean Corpuscular Hemoglobin 29.9 pg (25.0-35.0); Mean Corpuscular Volume 97 fL (80-100); Monocytes # (Auto) 0.9 Thou/mm3 (0.0-0.8); Monocytes % (Auto) 3 % (0-12); Neutrophils # (Auto) 21.4 Thou/mm3 (1.8-7.7); Neutrophils % (Auto) 82 % (37-80); Nucleated Red Blood Cell # 0.14 Thou/mm3 (0.00-0.00); Nucleated Red Blood Cell % 1 /100 WBC (0); RDW Standard Deviation 53.8 fL (35.1-43.9); Red Blood Count 3.14 Miln/mm3 (4.50-5.90); White Blood Count 26.2 Thou/mm3 (3.8-10.6)
[2025-03-17 06:31] LABS: Platelet Count 66 Thou/mm3 (140-440)
[2025-03-17 06:48] LABS: INR 2.8 (0.9-1.3); Partial Thromboplastin Time 54.3 Seconds (22.0-36.0); Prothrombin Time 28.5 Seconds (9.0-12.2)
--- NOTE | 2025-03-17 07:00 | XR_ITS ---
Examination: AP chest single view TECHNIQUE: AP portable semiupright chest single view Exam date and time: March 17, 2025 0908 hours Comparison March 16, 2025 INDICATIONS: Hypoxic respiratory failure postintubation this week FINDINGS: Mild prominence cardiac contour Pneumonia in the right lower lobe obscuring detail hemidiaphragm Endotracheal tube tip 9.2 cm above marco Left internal jugular temporary dialysis catheter tip SVC Orogastric tube in the stomach IMPRESSION: Significant pneumonia right base, consider aspiration pneumonia
[2025-03-17 07:15] LABS: Alanine Aminotransferase 1955 U/L (10-49); Albumin, Serum 2.6 gm/dL (3.5-5.0); Albumin/Globulin Ratio 1.2 (1.2-2.2); Alkaline Phosphatase 265 U/L (46-116); Anion Gap 10 (7-16); Aspartate Amino Transferase 556 U/L (0-34); BUN/Creatinine Ratio 9 Ratio (12-20); Bilirubin,Total 1.9 mg/dL (0.3-1.2); Blood Urea Nitrogen 17 mg/dL (9-23); Calcium 8.1 mg/dL (8.3-10.6); Calcium (Corrected) 9.2 mg/dL (8.5-10.1); Carbon Dioxide 27.6 mMol/L (20.0-31.0); Chloride 100 mMol/L (98-107); Creatinine (Component) 1.8 mg/dL (0.6-1.3); Estimated Creatinine Clearance 63.4 mL/min (>60); Globulin 2.1 gm/dL (2.3-3.5); Glucose 142 mg/dL (74-106); Osmolality,Calculated 279 (275-295); Phosphorous 3.7 mg/dL (2.4-5.1); Potassium 3.3 mMol/L (3.4-5.1); Sodium 138 mMol/L (136-145); Total Protein 4.7 gm/dL (5.7-8.2); Vancomycin,Random < 3.0 mcg/mL; eGFR 45 See Note
[2025-03-17] MEDS: HEPARIN SOD INJ 1000 UNIT/ML VIAL 10 ML 2000 UNIT INDWELLCAT (07:38)
[2025-03-17] MEDS: fentaNYL 2,500 MCG/250 ML BAG 2,500 MCG/250 ML BAG 20 MCG IV (08:16)
[2025-03-17 08:17] LABS: Slide Review Platelets confirmed
[2025-03-17] MEDS: HEPARIN SOD INJ 1000 UNIT/ML VIAL 10 ML 3000 UNIT IV (08:22)
[2025-03-17] MEDS: POTASSIUM CHLORIDE 10% 20 MEQ/15 ML UDC 40 MEQ GT (08:26)
[2025-03-17] MEDS: CLOPIDOGREL BISULFATE 75 MG TABLET GT (08:26)
[2025-03-17] MEDS: ASPIRIN 81 MG CHEW GT (08:26)
--- NOTE | 2025-03-17 10:09 | PC.SS ---
Update: Patient participating with dialysis today.
--- NOTE | 2025-03-17 11:22 | ESPR_ITS ---
<Statement entered by Yanci Villalobos MD - 03/18/25 17:57> I personally examined the patient intensive unit evaluated along with resident physician PGY 3 patient remains in critical condition requiring vasopressors also developed A-fib RVR tachycardia requiring amiodarone stabilized somewhat sedated but responding on ventilator saturating well still in critical condition and on vasopressors EKG showed ST depression precordial leads possibly has multivessel CAD which I will not be surprised the patient is too unstable to have any angiogram at this time overall prognosis poor because of multiple medical issues comorbidities and critical condition patient did have NSTEMI possible underlying multivessel CAD may require coronary angiogram but patient is too unstable and coronary angiogram probably will not make much difference in prognosis at this time once the patient is extubated much better may consider coronary angiogram at that time. Discussed with the family members spent more than 60 minutes of critical care time were all the questions and concerns with the family and we will continue to monitor the patient. Agree with the treatment plan recommendation as documented by PGY 3 Dr. Lito Salinas Documentation for date of: 03/17/25 Subjective Subjective Interval history: Patient seen and examined in the ICU. Intubated and sedated on [facility] ventilation and pressors. On Amio drip. Exam Vital Signs Temp Pulse Resp BP Pulse Ox O2 Del Method O2 Flow Rate 98.2 F 105 H 16 92/59 L 100 Mechanical Ventilation 50 03/17/25 08:00 03/17/25 11:15 03/17/25 06:04 03/17/25 11:15 03/17/25 11:00 03/17/25 08:00 03/14/25 18:09 FiO2 40 03/17/25 10:13 Narrative Exam General: Mechanically ventilated, sedated Eyes: Pupils sluggish, mildy icteric. Ears: No visible ear discharge Nose: No visible nasal discharge. Mouth/Throat: Dry mucous membranes, no redness, no lesions. Neck: Neck supple, no cervical lymphadenopathy. Lungs: Clear CHRISTIANO in upper lobes, mildly decreased in lower lobes Cardio: Normal S1/S2, irregular, no murmurs, no JVD Abdomen: Soft, non-tender, no palpable masses, peristalsis present, no guarding or rebound, swollen in the lower abdomen and some mild ascites. Extremities: Right BKA with cyanotic changes at the stump, left foot demarcated purplish discoloration which increased in size, compared to yesterday, right upper extremity still swollen and digits are still very dark in color yet have improved from yesterday evening. Skin: Improvement in right upper extremity digit discoloration, but still worse on the right than on the left. Skin injury with purple discoloration in the lateral right thigh now does have some fluid-filled bullae, indurated redness demarcated rash in the inner right thigh unchanged in size Neuro: Mechanically ventilated and sedated, pupils very sluggish today. Objective Labs 03/17/25 04:58 03/17/25 04:58 Labs: Laboratory Results - last 24 hr 03/16/25 03/16/25 03/16/25 10:15 11:48 18:32 WBC RBC Hgb 10.0 L Hct 30.7 L MCV MCH MCHC RDW Std Deviation Plt Count Neut % (Auto) Lymph % (Auto) Dodge % (Auto) Eos % (Auto) Baso % (Auto) Neut # (Auto) Lymph # (Auto) Dodge # (Auto) Eos # (Auto) Baso # (Auto) Immature Gran # (Auto) Absolute Nucleated RBC Immature Gran % Nucleated RBC % PT 56.6 H* INR 5.9 H* APTT 63.4 H 66.3 H Fibrinogen 207 D-Dimer 3430 H Puncture Site Right Brachial ABG pH 7.22 L D ABG pCO2 66 H D ABG pO2 79 L ABG HCO3 27 H ABG O2 Saturation 91 ABG Base Excess -2 FiO2 35 Sodium Potassium Chloride Carbon Dioxide Anion Gap BUN Creatinine Estim Creat Clear Calc eGFR BUN/Creatinine Ratio Glucose Calculated Osmolality Calcium Corrected Calcium Phosphorus Magnesium Total Bilirubin AST ALT Alkaline Phosphatase Total Creatine Kinase 141 D Total Protein Albumin Globulin Albumin/Globulin Ratio Random Vancomycin Misc Test Result Blood Type Antibody Screen Crossmatch Blood Bank Wristband ID 03/16/25 03/16/25 03/17/25 19:30 19:34 04:53 WBC RBC Hgb Hct MCV MCH MCHC RDW Std Deviation Plt Count Neut % (Auto) Lymph % (Auto) Dodge % (Auto) Eos % (Auto) Baso % (Auto) Neut # (Auto) Lymph # (Auto) Dodge # (Auto) Eos # (Auto) Baso # (Auto) Immature Gran # (Auto) Absolute Nucleated RBC Immature Gran % Nucleated RBC % PT INR APTT Fibrinogen D-Dimer Puncture Site Right Radial Right Radial ABG pH 7.38 D 7.38 ABG pCO2 48 D 49 H ABG pO2 236 H D 78 L D ABG HCO3 29 H 29 H ABG O2 Saturation 100 H 95 ABG Base Excess 3 3 FiO2 100 40 Sodium Potassium Chloride Carbon Dioxide Anion Gap BUN Creatinine Estim Creat Clear Calc eGFR BUN/Creatinine Ratio Glucose Calculated Osmolality Calcium Corrected Calcium Phosphorus Magnesium Total Bilirubin AST ALT Alkaline Phosphatase Total Creatine Kinase Total Protein Albumin Globulin Albumin/Globulin Ratio Random Vancomycin Misc Test Result Blood Type A Positive Antibody Screen NEGATIVE Crossmatch See Detail Blood Bank Wristband ID Yes 03/17/25 04:58 WBC 26.2 H RBC 3.14 L Hgb 9.4 L Hct 30.3 L MCV 97 MCH 29.9 MCHC 31.0 RDW Std Deviation 53.8 H Plt Count 66 L D Neut % (Auto) 82 H Lymph % (Auto) 4 L Dodge % (Auto) 3 Eos % (Auto) 0 Baso % (Auto) 1 Neut # (Auto) 21.4 H Lymph # (Auto) 1.0 Dodge # (Auto) 0.9 H Eos # (Auto) 0.0 Baso # (Auto) 0.1 Immature Gran # (Auto) 2.82 H Absolute Nucleated RBC 0.14 H Immature Gran % 11 H Nucleated RBC % 1 H PT 28.5 H D INR 2.8 H APTT 54.3 H D Fibrinogen D-Dimer Puncture Site ABG pH ABG pCO2 ABG pO2 ABG HCO3 ABG O2 Saturation ABG Base Excess FiO2 Sodium 138 Potassium 3.3 L D Chloride 100 Carbon Dioxide 27.6 Anion Gap 10 BUN 17 Creatinine 1.8 H D Estim Creat Clear Calc 63.4 eGFR 45 L BUN/Creatinine Ratio 9 L Glucose 142 H D Calculated Osmolality 279 Calcium 8.1 L D Corrected Calcium 9.2 D Phosphorus 3.7 Magnesium 2.0 Total Bilirubin 1.9 H AST 556 H* ALT 1955 H* Alkaline Phosphatase 265 H Total Creatine Kinase Total Protein 4.7 L Albumin 2.6 L Globulin 2.1 L Albumin/Globulin Ratio 1.2 Random Vancomycin < 3.0 Misc Test Result Platelets confirmed Blood Type Antibody Screen Crossmatch Blood Bank Wristband ID ABG Interpretation ABG results: 03/14/25 03/14/25 03/14/25 14:44 16:44 18:53 ABG pH 7.03 L* 7.04 L* 7.10 L* ABG pCO2 43 50 H 46 ABG pO2 86 128 H D 57 L* D ABG HCO3 11 L 13 L 14 L ABG O2 Saturation 91 97 78 L ABG Base Excess -19 L -17 L -15 L VBG pH VBG pCO2 VBG pO2 VBG Base Excess 03/14/25 03/15/25 03/15/25 21:20 05:07 12:28 ABG pH 7.21 L D 7.41 D ABG pCO2 32 D 31 L ABG pO2 116 H D 74 L D ABG HCO3 13 L 20 ABG O2 Saturation 97 95 ABG Base Excess -14 L -4 L VBG pH 7.43 VBG pCO2 34 L VBG pO2 37 VBG Base Excess -1 03/16/25 03/16/25 03/16/25 04:51 11:48 19:30 ABG pH 7.46 H 7.22 L D 7.38 D ABG pCO2 29 L 66 H D 48 D ABG pO2 78 L 79 L 236 H D ABG HCO3 21 27 H 29 H ABG O2 Saturation 96 91 100 H ABG Base Excess -2 -2 3 VBG pH VBG pCO2 VBG pO2 VBG Base Excess 03/17/25 04:53 ABG pH 7.38 ABG pCO2 49 H ABG pO2 78 L D ABG HCO3 29 H ABG O2 Saturation 95 ABG Base Excess 3 VBG pH VBG pCO2 VBG pO2 VBG Base Excess Quality Measures Quality Measures none Assessment & Plan Assessment Current Active Medications: Generic Name Dose Route Start Last Admin Trade Name Freq PRN Reason Stop Dose Admin Acetaminophen 650 mg 03/14/25 17:31 Acetaminophen Supp 650 Mg Supp LA 04/13/25 17:30 Q6HR PRN FEVER>101.5 Aspirin 81 mg 03/16/25 09:00 03/17/25 08:26 Aspirin 81 Mg Chew GT 04/15/25 08:59 81 mg QDAY MONTSERRAT Administration Clopidogrel Bisulfate 75 mg 03/15/25 10:53 03/17/25 08:26 Clopidogrel Bisulfate 75 Mg Tablet GT 04/14/25 10:29 75 mg QDAY MONTSERRAT Administration Dextrose 25 ml 03/14/25 20:38 Dextrose 50%-Water Inj 50 Ml Syringe IV 04/13/25 20:37 Q15MIN PRN BG 50-70 responsive npo pt Dextrose 50 ml 03/14/25 20:38 Dextrose 50%-Water Inj 50 Ml Syringe IV 04/13/25 20:37 Q15MIN PRN BG <50 OR BG <70 & pt unresponsive Glucagon 1 mg 03/14/25 17:36 Glucagon Inj 1 Mg Vial IM Q15MIN PRN BG <70, and no IV access Norepinephrine/Dextrose 8 mg in 250 mls @ 9.355 mls/hr 03/14/25 19:43 03/17/25 09:00 Levophed In D5w 8mg/250ml IV 04/13/25 19:42 0.01 mcg/kg/min .Q24H PRN 1.871 mls/hr PER PROTOCOL Titration Protocol 0.05 MCG/KG/MIN Vasopressin/Sodium Chloride 20 unit in 100 mls @ 9 mls/hr 03/14/25 20:33 03/14/25 21:45 Vasostrict/Ns Ivpb IV 04/13/25 20:32 0 unit/min .Q11H7M PRN 0 mls/hr PER PROTOCOL Titration Protocol 0.03 UNIT/MIN Propofol 1,000 mg in 100 mls @ 2.994 mls/hr 03/14/25 21:07 03/17/25 09:59 Diprivan Ivpb IV 04/13/25 21:06 10 mcg/kg/min .Q24H PRN 5.987 mls/hr PER PROTOCOL Titration Protocol 5 MCG/KG/MIN Fentanyl Citrate 2,500 mcg in 250 mls @ 2.5 mls/hr 03/14/25 21:08 03/17/25 09:00 Sublimaze Inj 2,500 Mcg/250 Ml Bag IV 03/19/25 21:07 200 mcg/hr .Q24H PRN 20 mls/hr PER PROTOCOL Titration Protocol 25 MCG/HR Heparin Sodium/Dextrose 25,000 unit in 250 mls @ 10 mls/hr 03/15/25 11:30 03/16/25 19:26 Heparin In D5w Ivpb IV 03/29/25 11:29 8.673 units/kg/hr .Q24H MONTSERRAT 10 mls/hr Titration Protocol 8.673 UNITS/KG/HR Piperacillin/Tazobactam/Dextrose 2.25 gm in 50 mls @ 100 mls/hr 03/16/25 00:30 03/17/25 05:32 Zosyn IV 03/23/25 00:29 100 mls/hr Q6H MONTSERRAT Administration Insulin Human Lispro 0 unit 03/14/25 20:45 03/17/25 05:25 Insulin Lispro (Admelog) 1 Unit/0.01 Ml Unit SC 04/13/25 20:44 Not Given Q6HR MONTSERRAT Protocol Ondansetron HCl 4 mg 03/14/25 17:31 Ondansetron Inj 2 Mg/Ml Inj 2 Ml IV 04/13/25 17:30 Q6H PRN NAUSEA OR VOMITING Protocol Pantoprazole Sodium 40 mg 03/14/25 21:00 03/16/25 22:00 Pantoprazole Inj 40 Mg Vial IVP 04/13/25 20:59 40 mg BID MONTSERRAT Administration Plan 49-year-old male with past medical history of DM2, hypertension, ESRD (HD ), HFpEF (EF 55% on 2021), and right BKA due to osteomyelitis was admitted to the ICU on 03/14/2025 for acute hypoxic respiratory failure, acute encephalopathy, and shock. #Shock, undifferentiated #SVT #Shock liver # Tachyarrhythmia, unknown etiology #Elevated troponin likely NSTEMI type II supply and demand #HFpEF (EF 55% on 2021) #Lower extremity ischemia? Assessment: Unknown etiology of shock at this time There could be a mixed component of shock. Could be dealing with multifactorial due to possible cardiogenic shock in the setting of the patient being cold wet with elevated lactic acid in the low EF. Return patient's cardiac index and SVI to determine if the patient is in an acute state of cardiogenic shock. Further data points need to be provided to assess and identify cardiogenic shock. Also patient having bilateral pneumonia with elevated lactic acid leukocytosis could be a potential for septic shock. However the degree of patient's fluid overload due to ESRD and the decrease in ejection fraction needs towards patient suffering from a cardiogenic shock. Also patient having lower extremity ischemia is potential due to patient's no pulses were felt and cold extremities. The ICU team tried to rule out lower limb ischemia with a CTA lower extremity runoff. There was a concern for supraventricular tachycardia and route to the hospital the patient was shocked once on over the patient was unstable at that time or if there was an underlying rhythm such as atrial fibrillation or a flutter. Patient was placed on a diltiazem drip however it is discontinued at this point. Upon arrival it was found the patient to have elevated troponins which peaked at 7.8 are currently downtrending. Electrolytes were within normal limits. Patient also has history of HFpEF EF 55% 2021. 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 Likely etiology of the patient's Cefobid could be due to dilated cardiomyopathy meth induced. Patient was also complaining of shortness of breath and increasing weight per family. 03/16/25: Patient still on norepi, vaso, and PIRRT. CT LER showed diffussed stenosis on the arteries of the LLE, occlusions in almost all major arteries. Vascular surgeon stated that the patient is not a candidate at this time for revascularization. Echo was done showed LV appears normal with EF 45-50%. Septal dyskinesis is seen, RV appears normal with RVSP 50 mmHg. Mildly dilated LA & RA Mild mitral regurgitation Mild-Moderate TR. We measured an estimate cardiac output using LVOT VTI from echo showing unlikely cardiogenic shock. To further assess RV function consider TAPSE/PAPSE calculation with POCUS or PA catheter for mix-venous gas for the calculation of Ficks formula or thermodilution for CO/CI. However with LVOT-VTI has shown good performance in estimating CO/CI. Also patient was shocked x1 due an episode of SVT, was started on amio drip. Prognosis is poor. We calculate with HR of 60: -LVOT area: 2.54 cm^2 -Stroke Volume: 64.52 mL -Cardiac output: 3.87 L/min Recommendations: -Antiarrythmic: amiodarone drip -Pressors: norepinephrine and vasopressin -Maintain electrolytes such as potassium magnesium and phosphorus within normal limits -CRRT for fluid overload -Currently patient too unstable for heart catheterization -Hold off on beta-blockers, calcium channel blockers #Acute hypoxic respiratory failure on mechanical intubation #Respiratory acidosis #ESRD (HD on ) #HAGMA #Lactic acidosis #Hyperkalemia #Possible GI bleed #Hematemesis #DM2 #Hypoglycemia #Leukocytosis #Macrocytic anemia #Thrombocytopenia #Community-acquired pneumonia ?Defer management to the intensive care unit team. - Patient's care was discussed with my attending physician, Dr. Wilfredo De Leon MD Internal Medicine PGY-3
[2025-03-17 13:18] LABS: INR 2.3 (0.9-1.3)
[2025-03-17 13:23] LABS: Partial Thromboplastin Time 110.7 Seconds (22.0-36.0)
--- NOTE | 2025-03-17 14:08 | ESPR_ITS ---
Documentation for date of: 03/17/25 Subjective Subjective Interval history: 49-year-old male with past medical history of DM2, hypertension, ESRD (HD ), HFpEF (EF 55% on 2021), and right BKA due to osteomyelitis was admitted to the ICU on 03/14/2025 after coming to the ED via ambulance due to altered mental status. Given patient's mental status and being intubated most of the history was taken from chart review and from patient's who was at bedside. Patient's stated that he was in the ER around 3 days ago due to some substernal chest pain and shortness of breath, but he was discharged with some antibiotics that he was told he had some pneumonia. She mentioned that yesterday in the evening he again had some shortness of breath and was kind of confused, but he did not want to come into the hospital at this time. Today in the morning she states that he was less responsive and that he was more cyanotic. At this time she decided to call EMS who brought the patient to the ED. As per chart review patient was in SVT when EMS arrived therefore he was shocked once and he converted to sinus rhythm. He was also noticed to be very hypoglycemic when he came into the ED with a blood glucose of around 23 therefore he was given multiple amps of D50. ED physician started patient on diltiazem drip. Of note, patient's states that this week he had to get more sessions of hemodialysis as he had increased a lot in weight. She mentioned that the last hemodialysis was on Saturday. She also mentioned that they are having a no recent changes on his medications and that he had not been using any medication for his diabetes. 03/15/2025: Patient seen and examined at bedside this morning. Overnight patient required to be placed on vasopressors as his blood pressure had dropped. They started the vasopressors on the peripheral IV line in the right upper extremity the IV line was infiltrated therefore they gave phentolamine x 1 and placed warm compresses. This morning a central line was placed on the right IJ and hemodialysis catheter was placed on the left IJ. Patient's labs today showed that hemoglobin was stable and since there was no more coffee-ground material coming from the NG tube we will start heparin drip, aspirin, and Plavix given that his troponins up trended to 7.899 before downtrending and the his EKG overnight did show some ST depressions in the inferior and lateral leads. Patient's metabolic acidosis is is improving slightly and lactic acid is downtrending. Patient's liver enzymes were severely elevated with AST and ALT above 6000 and 3300 respectively, order abdominal ultrasound and hepatitis panel. Chest x-ray this morning also showed that there could be right lower lobe collapse therefore will do bronchoscopy to better assess. Ordered CT angiogram of abdomen with iliofemoral runoff to assess for possible acute limb ischemia on the left lower extremity given that yesterday with follow-up weak pulse, but today extremity was pulseless. 03/16/2025: Patient seen and examined at bedside this morning. Overnight patient went back to SVT therefore she was shocked. Night team also started the patient on amiodarone drip given that on EKG at that showed that he had some A-fib with RVR. Today patient's chest x-ray did look a little bit better than yesterday and his right lower lung was more visible today, but he required baggin due to desaturation therefore will do bronchoscopy. Patient was sedated therefore his neurological status could not be assessed today, but his pupils were more sluggish today and less reactive. His left foot looks worse today when compared to yesterday, but his right hand did not look better than yesterday. CTA with runoff yesterday that showed occlusion of several arteries on the left leg and stenosis of the right superficial femoral artery. Spoke with vascular surgeon today who stated that patient most likely had a chronic peripheral vascular disease and that in the setting of his shock this was likely exacerbated, he mentioned at this time patient is not a candidate for revascularization surgery and to continue to wean off patient off vasopressors at this time. Patient's LFTs are downtrending. Patient's MRSA nares came back negative therefore will discontinue vancomycin. Repeat DIC panel today and repeated CK today as well. Patient went into SVT with heart rate in the 200s prior to his bronchoscopy, patient was given 6 mg of adenosine initially then 12 mg of adenosine and eventually was cardioverted. Repeat EKG afterwards showed what looks to be multifocal atrial tachycardia. Afterwards patient's heart rate has been in the 60s to 80s. Patient's was at bedside this afternoon and she was given an update on the patient's current condition. Given the patient's guarded prognosis and current condition the patient's CODE STATUS was reassessed with the patient's . She found that it was in the patient's best interest to change his CODE STATUS from full code to DNR at this time. At this time all questions and doubts patient's had were answered fully. Was explained that we will continue to do all medical treatment including for his SVT with cardioversion if it came to happen. She was understanding and wanted to proceed with this. 03/17/2025: Patient was seen and examined at bedside this morning. No overnight events. Start tube feeds today. Patient was taken to IR for subclavian central line placement. WBC continue to uptrend and sputum grew stenotrophomonas maltophilia which was only sensitive to levofloxacin and Bactrim, will switch to levaquin. Started chest physiotherapy and hypertonic saline inhaled solution for possible mucous secretions in the right lower lobe. Exam Vital Signs Temp Pulse Resp BP Pulse Ox O2 Del Method O2 Flow Rate 98.5 F 105 H 16 99/57 L 100 Mechanical Ventilation 50 03/17/25 12:00 03/17/25 14:02 03/17/25 06:04 03/17/25 14:02 03/17/25 13:00 03/17/25 12:00 03/14/25 18:09 FiO2 40 03/17/25 12:00 Narrative Exam General: Mechanically ventilated, sedated Eyes: Pupils more reactive to light today. Ears: No visible ear discharge Nose: No visible nasal discharge. Mouth/Throat: Moist mucous membranes, no redness, no lesions. Neck: Neck supple, no cervical lymphadenopathy. Lungs: Wheezing Cardio: Normal S1/S2, irregular, no murmurs, no JVD Abdomen: Soft, non-tender, no palpable masses, peristalsis present, no guarding or rebound Extremities: Right BKA with cyanotic changes at the stump still present, left foot demarcated purplish discoloration which did not increase in size, right upper extremity still swollen and 3rd and 4th digits show necrotic changes at the tips. Skin: Right 3rd and 4th upper extremity digits show necrotic changes at the tips with improvement in whole hand coloration. Left foot discoloration did not advance past marking yesterday. Still no pulse present. Reddish rash was appreciated on the left lower extremity and was warm to touch, demarcated today. Right inner thigh rash has improved. Neuro: Mechanically ventilated and sedated, more responsive today Objective Labs 03/17/25 04:58 03/17/25 16:02 Labs: Laboratory Results - last 24 hr 03/16/25 03/16/25 03/16/25 18:32 19:30 19:34 WBC RBC Hgb 10.0 L Hct 30.7 L MCV MCH MCHC RDW Std Deviation Plt Count Neut % (Auto) Lymph % (Auto) [place] % (Auto) Eos % (Auto) Baso % (Auto) Neut # (Auto) Lymph # (Auto) [place] # (Auto) Eos # (Auto) Baso # (Auto) Immature Gran # (Auto) Absolute Nucleated RBC Immature Gran % Nucleated RBC % PT INR APTT 66.3 H Puncture Site Right Radial ABG pH 7.38 D ABG pCO2 48 D ABG pO2 236 H D ABG HCO3 29 H ABG O2 Saturation 100 H ABG Base Excess 3 FiO2 100 Sodium Potassium Chloride Carbon Dioxide Anion Gap BUN Creatinine Estim Creat Clear Calc eGFR BUN/Creatinine Ratio Glucose Calculated Osmolality Calcium Corrected Calcium Phosphorus Magnesium Total Bilirubin AST ALT Alkaline Phosphatase Total Protein Albumin Globulin Albumin/Globulin Ratio Random Vancomycin Misc Test Result Blood Type A Positive Antibody Screen NEGATIVE Crossmatch See Detail Blood Bank Wristband ID Yes 03/17/25 03/17/25 03/17/25 04:53 04:58 11:40 WBC 26.2 H RBC 3.14 L Hgb 9.4 L Hct 30.3 L MCV 97 MCH 29.9 MCHC 31.0 RDW Std Deviation 53.8 H Plt Count 66 L D Neut % (Auto) 82 H Lymph % (Auto) [address] [place] % (Auto) 3 Eos % (Auto) 0 Baso % (Auto) 1 Neut # (Auto) 21.4 H Lymph # (Auto) 1.0 [place] # (Auto) 0.9 H Eos # (Auto) 0.0 Baso # (Auto) 0.1 Immature Gran # (Auto) 2.82 H Absolute Nucleated RBC 0.14 H Immature Gran % 11 H Nucleated RBC % 1 H PT 28.5 H D 24.0 H D INR 2.8 H 2.3 H APTT 54.3 H D 110.7 H* D Puncture Site Right Radial ABG pH 7.38 ABG pCO2 49 H ABG pO2 78 L D ABG HCO3 29 H ABG O2 Saturation 95 ABG Base Excess 3 FiO2 40 Sodium 138 Potassium 3.3 L D Chloride 100 Carbon Dioxide 27.6 Anion Gap 10 BUN 17 Creatinine 1.8 H D Estim Creat Clear Calc 63.4 eGFR 45 L BUN/Creatinine Ratio 9 L Glucose 142 H D Calculated Osmolality 279 Calcium 8.1 L D Corrected Calcium 9.2 D Phosphorus 3.7 Magnesium 2.0 Total Bilirubin 1.9 H AST 556 H* ALT 1955 H* Alkaline Phosphatase 265 H Total Protein 4.7 L Albumin 2.6 L Globulin 2.1 L Albumin/Globulin Ratio 1.2 Random Vancomycin < 3.0 Misc Test Result Platelets confirmed Blood Type Antibody Screen Crossmatch Blood Bank Wristband ID ABG Interpretation ABG results: 03/14/25 03/14/25 03/14/25 14:44 16:44 18:53 ABG pH 7.03 L* 7.04 L* 7.10 L* ABG pCO2 43 50 H 46 ABG pO2 86 128 H D 57 L* D ABG HCO3 11 L 13 L 14 L ABG O2 Saturation 91 97 78 L ABG Base Excess -19 L -17 L -15 L VBG pH VBG pCO2 VBG pO2 VBG Base Excess 03/14/25 03/15/25 03/15/25 21:20 05:07 12:28 ABG pH 7.21 L D 7.41 D ABG pCO2 32 D 31 L ABG pO2 116 H D 74 L D ABG HCO3 13 L 20 ABG O2 Saturation 97 95 ABG Base Excess -14 L -4 L VBG pH 7.43 VBG pCO2 34 L VBG pO2 37 VBG Base Excess -1 03/16/25 03/16/25 03/16/25 04:51 11:48 19:30 ABG pH 7.46 H 7.22 L D 7.38 D ABG pCO2 29 L 66 H D 48 D ABG pO2 78 L 79 L 236 H D ABG HCO3 21 27 H 29 H ABG O2 Saturation 96 91 100 H ABG Base Excess -2 -2 3 VBG pH VBG pCO2 VBG pO2 VBG Base Excess 03/17/25 04:53 ABG pH 7.38 ABG pCO2 49 H ABG pO2 78 L D ABG HCO3 29 H ABG O2 Saturation 95 ABG Base Excess 3 VBG pH VBG pCO2 VBG pO2 VBG Base Excess Quality Measures Quality Measures none Assessment & Plan Assessment Current Active Medications: Generic Name Dose Route Start Last Admin Trade Name Freq PRN Reason Stop Dose Admin Acetaminophen 650 mg 03/14/25 17:31 Acetaminophen Supp 650 Mg Supp VA 04/13/25 17:30 Q6HR PRN FEVER>101.5 Aspirin 81 mg 03/16/25 09:00 03/17/25 08:26 Aspirin 81 Mg Chew GT 04/15/25 08:59 81 mg QDAY MONTSERRAT Administration Clopidogrel Bisulfate 75 mg 03/15/25 10:53 03/17/25 08:26 Clopidogrel Bisulfate 75 Mg Tablet GT 04/14/25 10:29 75 mg QDAY MONTSERRAT Administration Dextrose 25 ml 03/14/25 20:38 Dextrose 50%-Water Inj 50 Ml Syringe IV 04/13/25 20:37 Q15MIN PRN BG 50-70 responsive npo pt Dextrose 50 ml 03/14/25 20:38 Dextrose 50%-Water Inj 50 Ml Syringe IV 04/13/25 20:37 Q15MIN PRN BG <50 OR BG <70 & pt unresponsive Glucagon 1 mg 03/14/25 17:36 Glucagon Inj 1 Mg Vial IM Q15MIN PRN BG <70, and no IV access Norepinephrine/Dextrose 8 mg in 250 mls @ 9.355 mls/hr 03/14/25 19:43 03/17/25 09:00 Levophed In D5w 8mg/250ml IV 04/13/25 19:42 0.01 mcg/kg/min .Q24H PRN 1.871 mls/hr PER PROTOCOL Titration Protocol 0.05 MCG/KG/MIN Vasopressin/Sodium Chloride 20 unit in 100 mls @ 9 mls/hr 03/14/25 20:33 03/14/25 21:45 Vasostrict/Ns Ivpb IV 04/13/25 20:32 0 unit/min .Q11H7M PRN 0 mls/hr PER PROTOCOL Titration Protocol 0.03 UNIT/MIN Propofol 1,000 mg in 100 mls @ 2.994 mls/hr 03/14/25 21:07 03/17/25 11:00 Diprivan Ivpb IV 04/13/25 21:06 10 mcg/kg/min .Q24H PRN 5.987 mls/hr PER PROTOCOL Titration Protocol 5 MCG/KG/MIN Fentanyl Citrate 2,500 mcg in 250 mls @ 2.5 mls/hr 03/14/25 21:08 03/17/25 11:00 Sublimaze Inj 2,500 Mcg/250 Ml Bag IV 03/19/25 21:07 200 mcg/hr .Q24H PRN 20 mls/hr PER PROTOCOL Titration Protocol 25 MCG/HR Heparin Sodium/Dextrose 25,000 unit in 250 mls @ 10 mls/hr 03/15/25 11:30 03/17/25 13:30 Heparin In D5w Ivpb IV 03/29/25 11:29 0 units/kg/hr .Q24H MONTSERRAT 0 mls/hr Titration Protocol 8.673 UNITS/KG/HR Piperacillin/Tazobactam/Dextrose 2.25 gm in 50 mls @ 100 mls/hr 03/16/25 00:30 03/17/25 14:06 Zosyn IV 03/23/25 00:29 100 mls/hr Q6H MONTSERRAT Administration Amiodarone HCl/Dextrose 360 mg in 200 mls @ 16.667 mls/hr 03/17/25 11:42 03/17/25 14:02 Nexterone Ivpb IV 03/18/25 11:41 16.667 mls/hr .Q12H MONTSERRAT Administration Insulin Human Lispro 0 unit 03/14/25 20:45 03/17/25 11:49 Insulin Lispro (Admelog) 1 Unit/0.01 Ml Unit SC 04/13/25 20:44 Not Given Q6HR MONTSERRAT Protocol Ondansetron HCl 4 mg 03/14/25 17:31 Ondansetron Inj 2 Mg/Ml Inj 2 Ml IV 04/13/25 17:30 Q6H PRN NAUSEA OR VOMITING Protocol Pantoprazole Sodium 40 mg 03/14/25 21:00 03/17/25 11:49 Pantoprazole Inj 40 Mg Vial IVP 04/13/25 20:59 Not Given BID MONTSERRAT Sodium Chloride 3 ml 03/17/25 13:45 Sodium Cl Rt Marjorie 3% 4 Ml Nebu (Non-Formulary) INH 04/16/25 13:44 Q6HRRT MONTSERRAT Plan 49-year-old male with past medical history of DM2, hypertension, ESRD (HD ), HFpEF (EF 55% on 2021), and right BKA due to osteomyelitis was admitted to the ICU on 03/14/2025 for acute hypoxic respiratory failure, acute encephalopathy, and shock. ROOM SERVER: #Acute cephalopathy #Sedated Patient was mechanically ventilated and sedated in the a.m. Will wean down sedation today to reassess neurological status CVS: #Shock Unknown etiology of shock at this time Continue Levophed Discontinue Zosyn [03/14/2025-03/17/2025] Discontinue Vanco [03/14/2025?03/16/2025] Started levaquin 750mg x1 then 500mg q48hr [03/17/2025-] Echo showed EF 45 to 50% and septal dyskinesis #SVT #A-fib Patient again went into SVT last night and was shocked again, but on repeat EKG showed to be in A-fib RVR. Patient again went into SVT and received adenosine 6mg x1 and adenosine 12mg x1 before being cardioverted. Repeat EKG showed what appears to be MAT. [id number] score of 3 points indicating 3.2% risk of stroke per year HAS-BLED score of 5 points Will continue amiodarone drip for now #Troponinemia Troponins peaked at 7.899 and down trended to 7.04 EKG done overnight that shows some ST depressions in lead II and V3 to V6 Will continue on aspirin, Plavix, and heparin drip Echo showed EF of 45 to 50% and septal dyskinesis Cardiology consulted, appreciate recommendations #HFpEF (EF 55% on 2021) Patient does have an echo on file from 2021 that they show EF of 55% Given positive U tox patient could have some dilated cardiomyopathy Echo showed an EF of 45 to 50% Will continue with CRRT for fluid removal Daily weights Strict JENN's Respiratory: #Acute hypoxic respiratory failure #Respiratory acidosis #Stenotrophomonas maltophilia pneumonia Intubated on 03/14/2025 Chest x-ray today showed again right lower lung atelectasis versus collapse. Sputum grew stenotrophomonas maltophilia ABG today did look better with pH of 7.38, PCO2 of 49, and PO2 of 78 Started hypertonic saline inhaled solution and chest physiotherapy Started levaquin 750mg x1 then 500mg q48hr [03/17/2025-] Will continue to monitor with daily ABGs and chest x-rays Renal: #ESRD (HD on ) #HAGMA, improving #Lactic acidosis, improving Will continue with CRRT Avoid nephrotoxic agents Renally dose medications Consults nephrology, appreciate recommendations #Hypocalcemia, improving Calcium 8.1 and corrected 9.2 # Hypokalemia Potassium 3.3 today, gave 40 mg of potassium GI: #Possible GI bleed #Hematemesis Patient's hemoglobin today 9.4 #Transaminitis #Hepatomegaly Possible liver failure due to methamphetamine use? Could be due to shock liver versus hypoxia versus drug-induced Hepatitis panel negative and abdominal ultrasound that shows some hepatomegaly with possible cirrhosis versus hepatocellular disease. Liver enzymes downtrending AST 556, ALT 1955 MSK: #Possible acute vs chronic limb ischemia Abdomen CTA with runoff that showed occlusion of multiple arteries including the left radial, gluteal, and tibial arteries as well as 90% stenosis of the left superficial femoral artery Also showed 80% stenosis of right superficial femoral artery Vascular surgeon stated that patient most likely has some chronic peripheral vascular disease which was worsened with patient's current condition of shock requiring vasopressors. Stated that patient is not a candidate at this time for revascularization surgery and to continue supportive measures for now and try and wean off vasopressors. Left foot discoloration has not progressed. Continue heparin drip Endo: #DM2 #Hypoglycemia, resolved ISS Hypoglycemia protocol ordered Heme: #Hypercoagulopathy #DIC PTT above 63 and PTT 63.2, Fibrinogen 140, and D-Dimer 3480 which is consistent with DIC on 03/15/2025 Got 11 units of cryoprecipitate #Leukocytosis WBC 22.9 today Most likely infectious given history of pneumonia Sputum cultures grew stenotrophomonas neutrophilia Discontinue Zosyn [03/14/2025-03/17/2025] Started levaquin 750mg x1 then 500mg q48hr [03/17/2025-] #Macrocytic anemia #Thrombocytopenia Hemoglobin 9.4 and platelets 66 today No active signs of bleeding Will continue to monitor ID: #Community-acquired pneumonia Chest x-ray showed pneumonia of right base Discontinue vancomycin MRSA nares negative Blood cultures negative in 48 hours and sputum cultures did grow stenotrophomonas maltophilia Discontinue Zosyn [03/14/2025-03/17/2025] Started levaquin 750mg x1 then 500mg q48hr [03/17/2025-] Social: Positive U tox for meth and marijuana Hospital Maintenance: Diet: Tube feeds DVT ppx: Heparin drip GI ppx: Protonix IV IV lines: PIV, CIV (LIJ/R femoral) Cruz: cruz cath Code status: DNR Dispo: ICU in the setting of shock and acute hypoxic respiratory failure Case disclosed with Attending Dr. 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
[2025-03-17] MEDS: LIDOCAINE INJ PF 1% 30 ML VIAL INFL (15:26)
[2025-03-17 16:07] LABS: Path Review Blood Smear Sent to Pathologist
[2025-03-17] MEDS: SODIUM CL RT SOL 3% 4 ML NEBU (NON-FORMULARY) 3 ML INH (16:07)
--- NOTE | 2025-03-17 16:10 | PC.SS ---
Update: Patient remains intubated/sedated. Patient on pressor support. Patient receiving IV antibiotics. Patient receiving continuos dialysis. Code status changed to DNR.
--- NOTE | 2025-03-17 16:17 | PC.SS ---
FORECLOSURE HOME INSPECTOR conducted phone contact with the patient?s spouse, Sophia Wyman ; to conduct initial assessment. ?Patient currently admitted to ICU and intubated/sedated.? Patient resides at home with spouse.? Patient does not utilize DME to assist with ambulation.? Patient does not utilize home oxygen.? Patient is able to complete ADL?s independently.? Patient?s surrogate medical decision maker is spouse, Sophia Wyman.? Patient?s PCP is Margarita Ko.? Patient is aligned with dialysis services.? Paper Conservator is Dr. Pleitez.? Chair schedule is Ezio and Mohsen.? Patient does not possess any other specialty providers.? Patient is not V.A. connected.? creative services writer will discuss discharge needs at an appropriate future time.? No further intervention required at this time, social sciences lecturer will be available to address any further concerns.? Next of Kin: Sophia Garo D/C Plan: Pending
[2025-03-17 16:33] LABS: Lactate (Lactic Acid) 1.2 mMol/L (0.4-2.0)
[2025-03-17] MEDS: HEPARIN SOD INJ 1000 UNIT/ML VIAL 10 ML 1500 UNIT INDWELLCAT (17:02)
[2025-03-17 17:05] LABS: Alanine Aminotransferase 1490 U/L (10-49); Albumin, Serum 2.3 gm/dL (3.5-5.0); Albumin/Globulin Ratio 1.2 (1.2-2.2); Alkaline Phosphatase 230 U/L (46-116); Anion Gap 8 (7-16); Aspartate Amino Transferase 327 U/L (0-34); BUN/Creatinine Ratio 12 Ratio (12-20); Bilirubin,Total 1.7 mg/dL (0.3-1.2); Blood Urea Nitrogen 28 mg/dL (9-23); Calcium 7.7 mg/dL (8.3-10.6); Calcium (Corrected) 9.1 mg/dL (8.5-10.1); Carbon Dioxide 25.9 mMol/L (20.0-31.0); Chloride 103 mMol/L (98-107); Creatinine (Component) 2.4 mg/dL (0.6-1.3); Estimated Creatinine Clearance 47.7 mL/min (>60); Globulin 1.9 gm/dL (2.3-3.5); Glucose 146 mg/dL (74-106); Osmolality,Calculated 282 (275-295); Potassium 3.5 mMol/L (3.4-5.1); Sodium 137 mMol/L (136-145); Total Protein 4.2 gm/dL (5.7-8.2); eGFR 32 See Note
[2025-03-17] MEDS: LEVOFLOXACIN/D5W 750MG IVPB 750 MG/150 ML BAG 100 MG IV (17:55)
--- NOTE | 2025-03-17 18:04 | PC.CC ---
Addendum entered by Jodee Esposito RN 03/17/25 19:22: 1918 received call from Ronaldo at [facility] wants to speak with Dr. Castellano and he is gone for the day. Dr. Rouse is available, call transferred. Addendum entered by Jodee Esposito RN 03/17/25 19:10: 1908 Called [facility], spoke to [facility] and initiated the transfer. She stated they don't do peripheral angioplasty, therefore transfer is declined. Addendum entered by Jodee Esposito RN 03/17/25 19:07: 1906 called [facility] to initiate the transfer, left VM. Addendum entered by Jodee Esposito RN 03/17/25 18:49: 1848 clinicals sent to [facility] and [facility]. Original Note: [address] Castellano that pt needs to be transferred for Acute/chronic limb ischemia of LLE needs interventional Cardiology/peripheral angioplasty. Pt has left leg stenosis of femoral artery, no pulses on palpation or doppler and cold to touch. I informed Dr. Castellano, I will do my best, try to initiate the transfer, working on multiple transfer and it's close to end of shift.
[2025-03-17 18:24] LABS: INR 2.3 (0.9-1.3); Prothrombin Time 23.5 Seconds (9.0-12.2)
[2025-03-17 18:27] LABS: Partial Thromboplastin Time > 139.0 Seconds (22.0-36.0)
[2025-03-17] MEDS: fentaNYL 2,500 MCG/250 ML BAG 2,500 MCG/250 ML BAG 7.5 MCG IV (19:38)
[2025-03-17] MEDS: HEPARIN SOD INJ 1000 UNIT/ML VIAL 10 ML 5500 UNIT INDWELLCAT (19:42)
[2025-03-17 20:00] LABS: INR 1.9 (0.9-1.3); Partial Thromboplastin Time 52.7 Seconds (22.0-36.0); Prothrombin Time 20.3 Seconds (9.0-12.2)
[2025-03-17 20:03] LABS: Alanine Aminotransferase 1537 U/L (10-49); Albumin, Serum 2.5 gm/dL (3.5-5.0); Albumin/Globulin Ratio 1.2 (1.2-2.2); Alkaline Phosphatase 239 U/L (46-116); Anion Gap 9 (7-16); Aspartate Amino Transferase 307 U/L (0-34); BUN/Creatinine Ratio 10 Ratio (12-20); Bilirubin,Total 1.8 mg/dL (0.3-1.2); Blood Urea Nitrogen 17 mg/dL (9-23); Calcium 8.9 mg/dL (8.3-10.6); Calcium (Corrected) 10.1 mg/dL (8.5-10.1); Carbon Dioxide 25.4 mMol/L (20.0-31.0); Chloride 99 mMol/L (98-107); Creatinine (Component) 1.7 mg/dL (0.6-1.3); Estimated Creatinine Clearance 67.3 mL/min (>60); Globulin 2.1 gm/dL (2.3-3.5); Glucose 131 mg/dL (74-106); Osmolality,Calculated 269 (275-295); Potassium 3.1 mMol/L (3.4-5.1); Sodium 133 mMol/L (136-145); Total Protein 4.6 gm/dL (5.7-8.2); eGFR 48 See Note
--- NOTE | 2025-03-17 20:14 | EVENTNT_ITS ---
Documentation for date of: 03/17/25 Event Note Event Note: Spoke with Dr. Reyes, vascular surgeon section hand at [facility]. Reviewed the case and agreed with his partner's recommendations that patient likely some chronic peripheral vascular disease worsened in the setting of shock requiring va sopressors. He agreed patient is not a candidate for transfer for revascularization intervention at this time Paula Rouse MD PGY-3
--- NOTE | 2025-03-17 20:14 | PD.RESEVENT ---
Documentation for date of: 03/17/25 Event Note Event Note: Spoke with Dr. Reyes, vascular surgeon customer experience consultant at [facility]. Reviewed the case and agreed with his partner's recommendations that patient likely some chronic peripheral vascular disease worsened in the setting of shock requiring vasopressors. He agreed patient is not a candidate for transfer for revascularization intervention at this time Paula Rouse MD PGY-3
[2025-03-17] MEDS: HEPARIN SOD INJ 5000 UNIT/ML VIAL SC (21:12)
[2025-03-17] MEDS: PANTOPRAZOLE INJ 40 MG VIAL IVP (21:12)
[2025-03-17] MEDS: POTASSIUM CHL 20 mEq IVPB 20 MEQ/100 ML BAG 50 MEQ IV ×2 (21:12→23:50)
[2025-03-17] MEDS: PROPOFOL 1,000 MG IVPB 1,000 MG/100 ML VIAL 3.453 MG IV (22:30)
[2025-03-18] VITALS (112 sets, daily range): BP systolic 83–149; BP diastolic 48–79; PULSE 65–141; RESP 6–20; TEMP 36.6–37.1; O2SAT 85–100; BMI 33.5
[2025-03-18] MEDS: fentaNYL 2,500 MCG/250 ML BAG 2,500 MCG/250 ML BAG 12.5 MCG IV (00:06)
[2025-03-18] MEDS: SODIUM CL RT SOL 3% 4 ML NEBU (NON-FORMULARY) 3 ML INH ×4 (01:30→18:30)
[2025-03-18 01:46] LABS: INR 1.8 (0.9-1.3); Partial Thromboplastin Time 45.7 Seconds (22.0-36.0); Prothrombin Time 17.8 Seconds (9.0-12.2)
[2025-03-18 01:59] LABS: Alanine Aminotransferase 1457 U/L (10-49); Albumin, Serum 2.7 gm/dL (3.5-5.0); Albumin/Globulin Ratio 1.3 (1.2-2.2); Alkaline Phosphatase 245 U/L (46-116); Anion Gap 8 (7-16); Aspartate Amino Transferase 260 U/L (0-34); BUN/Creatinine Ratio 10 Ratio (12-20); Blood Urea Nitrogen 11 mg/dL (9-23); Calcium 9.6 mg/dL (8.3-10.6); Calcium (Corrected) 10.6 mg/dL (8.5-10.1); Carbon Dioxide 26.8 mMol/L (20.0-31.0); Chloride 98 mMol/L (98-107); Creatinine (Component) 1.1 mg/dL (0.6-1.3); Estimated Creatinine Clearance 104.1 mL/min (>60); Globulin 2.1 gm/dL (2.3-3.5); Glucose 125 mg/dL (74-106); Osmolality,Calculated 266 (275-295); Potassium 3.2 mMol/L (3.4-5.1); Sodium 133 mMol/L (136-145); Total Protein 4.8 gm/dL (5.7-8.2); eGFR > 60 See Note
[2025-03-18] MEDS: AMIODARONE 360 MG IVPB 360 MG/200 ML BAG 16.667 MG IV ×2 (02:02→15:36)
--- NOTE | 2025-03-18 04:27 | PC.NURSE ---
when tablo changed to uf dialysis rate N/A, TMP -30, current UF rate 19, called outset(tablo) help line I explained the chances in machine when it changed over to UF. I was informed that everything is within normal range to continue treatment. no alarms sounding at this time.
[2025-03-18 06:09] LABS: Basophils # (Auto) 0.1 Thou/mm3 (0.0-0.2); Basophils % (Auto) 1 % (0-2.5); Eosinophils # (Auto) 0.2 Thou/mm3 (0.0-0.5); Eosinophils % (Auto) 1 % (0-10); Hematocrit 30.1 % (41.0-53.0); Hemoglobin 9.3 g/dL (13.5-16.0); Immature Granulocytes % (Auto) 15 % (0-0); Lymphocytes # (Auto) 1.3 Thou/mm3 (1.0-4.8); Lymphocytes % (Auto) 6 % (10-50); Mean Corpuscular HGB Conc 30.9 g/dl (31.0-37.0); Mean Corpuscular Hemoglobin 30.6 pg (25.0-35.0); Mean Corpuscular Volume 99 fL (80-100); Monocytes # (Auto) 0.8 Thou/mm3 (0.0-0.8); Monocytes % (Auto) 3 % (0-12); Neutrophils # (Auto) 18.2 Thou/mm3 (1.8-7.7); Neutrophils % (Auto) 76 % (37-80); Nucleated Red Blood Cell # 0.27 Thou/mm3 (0.00-0.00); Nucleated Red Blood Cell % 1 /100 WBC (0); RDW Standard Deviation 55.7 fL (35.1-43.9); Red Blood Count 3.04 Miln/mm3 (4.50-5.90)
[2025-03-18 06:10] LABS: Platelet Count 64 Thou/mm3 (140-440)
[2025-03-18 06:11] LABS: Slide Review Platelets confirmed
[2025-03-18 06:42] LABS: INR 1.7 (0.9-1.3); Prothrombin Time 17.7 Seconds (9.0-12.2)
[2025-03-18 06:46] LABS: Partial Thromboplastin Time 103.8 Seconds (22.0-36.0)
[2025-03-18 06:52] LABS: Alanine Aminotransferase 1358 U/L (10-49); Albumin, Serum 2.7 gm/dL (3.5-5.0); Albumin/Globulin Ratio 1.3 (1.2-2.2); Alkaline Phosphatase 250 U/L (46-116); Anion Gap 7 (7-16); Aspartate Amino Transferase 225 U/L (0-34); BUN/Creatinine Ratio 9 Ratio (12-20); Bilirubin,Total 2.1 mg/dL (0.3-1.2); Blood Urea Nitrogen 10 mg/dL (9-23); Calcium 9.6 mg/dL (8.3-10.6); Calcium (Corrected) 10.6 mg/dL (8.5-10.1); Carbon Dioxide 27.6 mMol/L (20.0-31.0); Chloride 102 mMol/L (98-107); Creatinine (Component) 1.1 mg/dL (0.6-1.3); Estimated Creatinine Clearance 102.9 mL/min (>60); Globulin 2.1 gm/dL (2.3-3.5); Glucose 129 mg/dL (74-106); Magnesium 1.7 mg/dL (1.6-2.6); Osmolality,Calculated 274 (275-295); Phosphorous 2.4 mg/dL (2.4-5.1); Sodium 137 mMol/L (136-145); Total Protein 4.8 gm/dL (5.7-8.2); eGFR > 60 See Note
--- NOTE | 2025-03-18 07:06 | XR_ITS ---
Examination: AP chest single view Technique one AP portable semiupright chest single view Exam date and time: March 18, 2025 0724 hours Comparison March 17, 2025 INDICATIONS: Hypoxic respiratory failure, significant pneumonia on chest film March 17, 2025 FINDINGS: Significant pneumonia remains right middle lobe right base Mild pneumonia left base Endotracheal tube tip 7.2 cm above marco Left internal jugular temporary dialysis catheter right subclavian central line tip SVC satisfactory position Orogastric tube in the stomach the tip is below the level of the film IMPRESSION: Significant pneumonia right middle lobe right base Mild pneumonia left base Endotracheal tube 7.2 cm above marco
[2025-03-18] MEDS: HEPARIN SOD INJ 5000 UNIT/ML VIAL SC ×3 (07:29→21:33)
[2025-03-18] MEDS: POTASSIUM CHLORIDE 10% 20 MEQ/15 ML UDC 40 MEQ GT (07:35)
[2025-03-18] MEDS: Magnesium Sulfate 2 GM Ivpb 2 GM/50 ML BAG IV (07:35)
--- NOTE | 2025-03-18 07:54 | EKG_ITS ---
[facility] Test Date: 2025-03-18 Pat Name: CLEMENTE PERAZA [facility] Gender[facility] Can Dragger: JOSIE : 1975 Requested By: Lito Lee Order Number: [id number] Reading MD: Lito Lee Measurements Intervals Goode Rate: 131 P: -79 MO: 163 QRS: 89 QRSD: 126 T: 0 QT: 283 QTc: 419 Interpretive Statements ECTOPIC ATRIAL TACHYCARDIA POSSIBLE RIGHT VENTRICULAR CONDUCTION DELAY LATERAL MYOCARDIAL INFARCTION , PROBABLY RECENT ACUTE OK Compared to ECG 03/16/2025 12:26:11 Myocardial infarct finding now present Atrial fibrillation no longer present Incomplete right bundle-branch block no longer present T-wave abnormality no longer present Possible ischemia no longer present /store/S0/[id number]
[2025-03-18] MEDS: HEPARIN SOD INJ 1000 UNIT/ML VIAL 10 ML 500 UNIT INDWELLCAT ×8 (08:12→15:24)
[2025-03-18] MEDS: ASPIRIN 81 MG CHEW GT (08:21)
[2025-03-18] MEDS: PANTOPRAZOLE INJ 40 MG VIAL IVP ×2 (08:21→20:27)
[2025-03-18] MEDS: CLOPIDOGREL BISULFATE 75 MG TABLET GT (08:21)
--- NOTE | 2025-03-18 09:18 | PC.CM ---
0900 I spoke to [facility] transfer nurse Gabriela. She states patient was declined yesterday due to the fact Dr. Reyes and Dr. López do not feel patient is a candidate for transfer. Patient was also declined by [facility]. I spoke to Dr. Castellano and he states he will let the family know that patient has been declined for transfer.
[2025-03-18 09:37] LABS: Base Excess, Venous 2 (-3-3); O2 Saturation, Venous 63 % (96-97); PCO2, Venous 54 mmHg (36-56); PO2, Venous 34 mmHg (15-58); pH, Venous 7.34 (7.33-7.66)
--- NOTE | 2025-03-18 09:45 | PC.NURSE ---
0900 Dr. Castellano requested for Dr. Pleitez to see if he could make some changes to Tablo since the potassium level is low and calcium is increasing. I spoke with Dr. Pleitez and reported concerns of potassium and calcium, he ordered for Tablo potassium bath to increase to 4.0 and calcium to 2.5. With assistance of manager mobility Estephania Tablo was adjusted to ordered doses as requested.
[2025-03-18 10:50] LABS: Troponin I 1.381 ng/mL (0.0-0.045)
--- NOTE | 2025-03-18 11:57 | PD.NEPHPROG ---
Documentation for date of: 03/18/25 Subjective Subjective Interval history: Pt is seen and examined Pt remains on ventilator Pt is on renal replacement therapy Exam Vital Signs Temp Pulse Resp BP Pulse Ox O2 Del Method O2 Flow Rate 98.1 F 133 H 19 130/61 100 Mechanical Ventilation 50 03/18/25 08:00 03/18/25 11:45 03/18/25 06:25 03/18/25 11:45 03/18/25 11:00 03/18/25 08:00 03/14/25 18:09 FiO2 35 03/18/25 10:04 Narrative Exam General: Intubated, sedated. HEENT: Anicteric sclerae. Normocephalic. Neck: Supple. No JVD. Chest and Lungs: Decreased breath sounds bilaterally. Cardiac: Without murmur. Abdomen: Soft, nondistended. Extremities: Right BKA. Upper and lower extremity edema. Objective Labs 03/18/25 04:46 03/18/25 04:46 Labs: Laboratory Results - last 24 hr 03/17/25 03/17/25 03/17/25 04:58 11:40 16:02 WBC RBC Hgb Hct MCV MCH MCHC RDW Std Deviation Plt Count Neut % (Auto) Lymph % (Auto) [place] % (Auto) Eos % (Auto) Baso % (Auto) Neut # (Auto) Lymph # (Auto) [place] # (Auto) Eos # (Auto) Baso # (Auto) Immature Gran # (Auto) Absolute Nucleated RBC Immature Gran % Nucleated RBC % Smear Path Review Sent to Pathologist PT 24.0 H D 23.5 H INR 2.3 H 2.3 H APTT 110.7 H* D > 139.0 H* D VBG pH VBG pCO2 VBG pO2 VBG O2 Sat (Guy) VBG Base Excess Sodium 137 Potassium 3.5 Chloride 103 Carbon Dioxide 25.9 Anion Gap 8 BUN 28 H Creatinine 2.4 H D Estim Creat Clear Calc 47.7 L eGFR 32 L BUN/Creatinine Ratio 12 Glucose 146 H Calculated Osmolality 282 Lactic Acid 1.2 Calcium 7.7 L Corrected Calcium 9.1 Phosphorus Magnesium Total Bilirubin 1.7 H AST 327 H ALT 1490 H* Alkaline Phosphatase 230 H D Troponin I Total Protein 4.2 L Albumin 2.3 L Globulin 1.9 L Albumin/Globulin Ratio 1.2 Misc Test Result 03/17/25 03/18/25 03/18/25 19:06 00:40 04:46 WBC 24.0 H RBC 3.04 L Hgb 9.3 L Hct 30.1 L MCV 99 MCH 30.6 MCHC 30.9 L RDW Std Deviation 55.7 H Plt Count 64 L Neut % (Auto) 76 Lymph % (Auto) 6 L [place] % (Auto) 3 Eos % (Auto) 1 Baso % (Auto) 1 Neut # (Auto) 18.2 H Lymph # (Auto) 1.3 [place] # (Auto) 0.8 Eos # (Auto) 0.2 Baso # (Auto) 0.1 Immature Gran # (Auto) 3.50 H Absolute Nucleated RBC 0.27 H Immature Gran % 15 H Nucleated RBC % 1 H Smear Path Review PT 20.3 H D 17.8 H 17.7 H INR 1.9 H 1.8 H 1.7 H APTT 52.7 H D 45.7 H 103.8 H* D VBG pH VBG pCO2 VBG pO2 VBG O2 Sat (Guy) VBG Base Excess Sodium 133 L 133 L 137 Potassium 3.1 L 3.2 L 3.0 L Chloride 99 98 102 Carbon Dioxide 25.4 26.8 27.6 Anion Gap 9 8 7 BUN 17 11 10 Creatinine 1.7 H D 1.1 D 1.1 Estim Creat Clear Calc 67.3 104.1 102.9 eGFR 48 L > 60 > 60 BUN/Creatinine Ratio 10 L 10 L 9 L Glucose 131 H 125 H 129 H Calculated Osmolality 269 L 266 L 274 L Lactic Acid Calcium 8.9 9.6 9.6 Corrected Calcium 10.1 10.6 H 10.6 H Phosphorus 2.4 Magnesium 1.7 Total Bilirubin 1.8 H 2.0 H 2.1 H AST 307 H 260 H 225 H ALT 1537 H* 1457 H* 1358 H* Alkaline Phosphatase 239 H 245 H 250 H Troponin I Total Protein 4.6 L 4.8 L 4.8 L Albumin 2.5 L 2.7 L 2.7 L Globulin 2.1 L 2.1 L 2.1 L Albumin/Globulin Ratio 1.2 1.3 1.3 Misc Test Result Platelets confirmed 03/18/25 03/18/25 09:27 10:09 WBC RBC Hgb Hct MCV MCH MCHC RDW Std Deviation Plt Count Neut % (Auto) Lymph % (Auto) [place] % (Auto) Eos % (Auto) Baso % (Auto) Neut # (Auto) Lymph # (Auto) [place] # (Auto) Eos # (Auto) Baso # (Auto) Immature Gran # (Auto) Absolute Nucleated RBC Immature Gran % Nucleated RBC % Smear Path Review PT INR APTT VBG pH 7.34 VBG pCO2 54 D VBG pO2 34 VBG O2 Sat (Guy) 63 L VBG Base Excess 2 Sodium Potassium Chloride Carbon Dioxide Anion Gap BUN Creatinine Estim Creat Clear Calc eGFR BUN/Creatinine Ratio Glucose Calculated Osmolality Lactic Acid Calcium Corrected Calcium Phosphorus Magnesium Total Bilirubin AST ALT Alkaline Phosphatase Troponin I 1.381 H* Total Protein Albumin Globulin Albumin/Globulin Ratio Misc Test Result ABG Interpretation ABG results: 03/14/25 03/14/25 03/14/25 14:44 16:44 18:53 ABG pH 7.03 L* 7.04 L* 7.10 L* ABG pCO2 43 50 H 46 ABG pO2 86 128 H D 57 L* D ABG HCO3 11 L 13 L 14 L ABG O2 Saturation 91 97 78 L ABG Base Excess -19 L -17 L -15 L VBG pH VBG pCO2 VBG pO2 VBG Base Excess 03/14/25 03/15/25 03/15/25 21:20 05:07 12:28 ABG pH 7.21 L D 7.41 D ABG pCO2 32 D 31 L ABG pO2 116 H D 74 L D ABG HCO3 13 L 20 ABG O2 Saturation 97 95 ABG Base Excess -14 L -4 L VBG pH 7.43 VBG pCO2 34 L VBG pO2 37 VBG Base Excess -1 03/16/25 03/16/25 03/16/25 04:51 11:48 19:30 ABG pH 7.46 H 7.22 L D 7.38 D ABG pCO2 29 L 66 H D 48 D ABG pO2 78 L 79 L 236 H D ABG HCO3 21 27 H 29 H ABG O2 Saturation 96 91 100 H ABG Base Excess -2 -2 3 VBG pH VBG pCO2 VBG pO2 VBG Base Excess 03/17/25 03/18/25 04:53 09:27 ABG pH 7.38 ABG pCO2 49 H ABG pO2 78 L D ABG HCO3 29 H ABG O2 Saturation 95 ABG Base Excess 3 VBG pH 7.34 VBG pCO2 54 D VBG pO2 34 VBG Base Excess 2 Assessment & Plan Assessment and plan (1) CHF (congestive heart failure): Status: Acute Assessment and plan: continue with ultrafiltration UF can be adjusted as per yard jockey (2) Sepsis: Status: Acute (3) End-stage renal disease (ESRD): Status: Acute Assessment and plan: c/w renal replacement therapy Change K to 4 K bath cnagne Ca to 2.5 Ca bath (4) Hyperkalemia: Status: Acute Procedures Arterial Line Size (Gauge): 20
[2025-03-18] MEDS: DEXMEDETOMIDINE 5.625 MCG IV (12:06)
[2025-03-18 12:46] LABS: Albumin, Serum 2.8 gm/dL (3.5-5.0); Albumin/Globulin Ratio 1.3 (1.2-2.2); Alkaline Phosphatase 244 U/L (46-116); Anion Gap 7 (7-16); Aspartate Amino Transferase 175 U/L (0-34); BUN/Creatinine Ratio 10 Ratio (12-20); Bilirubin,Total 2.1 mg/dL (0.3-1.2); Blood Urea Nitrogen 17 mg/dL (9-23); Calcium 9.6 mg/dL (8.3-10.6); Calcium (Corrected) 10.6 mg/dL (8.5-10.1); Carbon Dioxide 27.2 mMol/L (20.0-31.0); Chloride 102 mMol/L (98-107); Creatinine (Component) 1.7 mg/dL (0.6-1.3); Estimated Creatinine Clearance 66.6 mL/min (>60); Globulin 2.1 gm/dL (2.3-3.5); Glucose 169 mg/dL (74-106); Osmolality,Calculated 277 (275-295); Potassium 3.7 mMol/L (3.4-5.1); Sodium 136 mMol/L (136-145); Total Protein 4.9 gm/dL (5.7-8.2); eGFR 48 See Note
[2025-03-18 13:02] LABS: INR 1.5 (0.9-1.3); Partial Thromboplastin Time 33.2 Seconds (22.0-36.0); Prothrombin Time 15.9 Seconds (9.0-12.2)
[2025-03-18 13:09] LABS: Alanine Aminotransferase 1213 U/L (10-49)
--- NOTE | 2025-03-18 13:56 | ESPR_ITS ---
Documentation for date of: 03/18/25 Subjective Subjective Interval history: 49-year-old male with past medical history of DM2, hypertension, ESRD (HD ), HFpEF (EF 55% on 2021), and right BKA due to osteomyelitis was admitted to the ICU on 03/14/2025 after coming to the ED via ambulance due to altered mental status. Given patient's mental status and being intubated most of the history was taken from chart review and from patient's who was at bedside. Patient's stated that he was in the ER around 3 days ago due to some substernal chest pain and shortness of breath, but he was discharged with some antibiotics that he was told he had some pneumonia. She mentioned that yesterday in the evening he again had some shortness of breath and was kind of confused, but he did not want to come into the hospital at this time. Today in the morning she states that he was less responsive and that he was more cyanotic. At this time she decided to call EMS who brought the patient to the ED. As per chart review patient was in SVT when EMS arrived therefore he was shocked once and he converted to sinus rhythm. He was also noticed to be very hypoglycemic when he came into the ED with a blood glucose of around 23 therefore he was given multiple amps of D50. ED physician started patient on diltiazem drip. Of note, patient's states that this week he had to get more sessions of hemodialysis as he had increased a lot in weight. She mentioned that the last hemodialysis was on Saturday. She also mentioned that they are having a no recent changes on his medications and that he had not been using any medication for his diabetes. 03/15/2025: Patient seen and examined at bedside this morning. Overnight patient required to be placed on vasopressors as his blood pressure had dropped. They started the vasopressors on the peripheral IV line in the right upper extremity the IV line was infiltrated therefore they gave phentolamine x 1 and placed warm compresses. This morning a central line was placed on the right IJ and hemodialysis catheter was placed on the left IJ. Patient's labs today showed that hemoglobin was stable and since there was no more coffee-ground material coming from the NG tube we will start heparin drip, aspirin, and Plavix given that his troponins up trended to 7.899 before downtrending and the his EKG overnight did show some ST depressions in the inferior and lateral leads. Patient's metabolic acidosis is is improving slightly and lactic acid is downtrending. Patient's liver enzymes were severely elevated with AST and ALT above 6000 and 3300 respectively, order abdominal ultrasound and hepatitis panel. Chest x-ray this morning also showed that there could be right lower lobe collapse therefore will do bronchoscopy to better assess. Ordered CT angiogram of abdomen with iliofemoral runoff to assess for possible acute limb ischemia on the left lower extremity given that yesterday with follow-up weak pulse, but today extremity was pulseless. 03/16/2025: Patient seen and examined at bedside this morning. Overnight patient went back to SVT therefore she was shocked. Night team also started the patient on amiodarone drip given that on EKG at that showed that he had some A-fib with RVR. Today patient's chest x-ray did look a little bit better than yesterday and his right lower lung was more visible today, but he required baggin due to desaturation therefore will do bronchoscopy. Patient was sedated therefore his neurological status could not be assessed today, but his pupils were more sluggish today and less reactive. His left foot looks worse today when compared to yesterday, but his right hand did not look better than yesterday. CTA with runoff yesterday that showed occlusion of several arteries on the left leg and stenosis of the right superficial femoral artery. Spoke with vascular surgeon today who stated that patient most likely had a chronic peripheral vascular disease and that in the setting of his shock this was likely exacerbated, he mentioned at this time patient is not a candidate for revascularization surgery and to continue to wean off patient off vasopressors at this time. Patient's LFTs are downtrending. Patient's MRSA nares came back negative therefore will discontinue vancomycin. Repeat DIC panel today and repeated CK today as well. Patient went into SVT with heart rate in the 200s prior to his bronchoscopy, patient was given 6 mg of adenosine initially then 12 mg of adenosine and eventually was cardioverted. Repeat EKG afterwards showed what looks to be multifocal atrial tachycardia. Afterwards patient's heart rate has been in the 60s to 80s. Patient's was at bedside this afternoon and she was given an update on the patient's current condition. Given the patient's guarded prognosis and current condition the patient's CODE STATUS was reassessed with the patient's . She found that it was in the patient's best interest to change his CODE STATUS from full code to DNR at this time. At this time all questions and doubts patient's had were answered fully. Was explained that we will continue to do all medical treatment including for his SVT with cardioversion if it came to happen. She was understanding and wanted to proceed with this. 03/17/2025: Patient was seen and examined at bedside this morning. No overnight events. Start tube feeds today. Patient was taken to IR for subclavian central line placement. WBC continue to uptrend and sputum grew stenotrophomonas maltophilia which was only sensitive to levofloxacin and Bactrim, will switch to levaquin. Started chest physiotherapy and hypertonic saline inhaled solution for possible mucous secretions in the right lower lobe. 03/18/2025: Patient was seen and examined at bedside this morning. He did still have some wheezings, but these were much better than yesterday. Overnight ICU team spoke with vascular surgeon from [facility] who stated that the patient was not a candidate for transfer for revascularization at this time. Patient today was more awake and was able to follow commands still moving his lower extremities and bilateral hands. Patient is currently only on Precedex drip, as he was able to follow commands attempted to place him on spontaneous breathing trial, but he was not adequately initiating of breath therefore placed back on AC/VC mode. Will reattempt SBT tomorrow. Repeat EKG this morning showed patient to have new Q waves with some ST depressions, spoke with fabric cutter who stated patient was not having an acute ME and that it was probably old and that he was also too unstable to take to the Er Registrar at this time. No need for heparin drip as PTT is above 100. Exam Vital Signs Temp Pulse Resp BP Pulse Ox O2 Del Method O2 Flow Rate 98.2 F 101 H 16 108/64 100 Mechanical Ventilation 50 03/18/25 12:00 03/18/25 13:45 03/18/25 12:43 03/18/25 13:45 03/18/25 13:45 03/18/25 12:00 03/14/25 18:09 FiO2 40 03/18/25 12:43 Narrative Exam General: Mechanically ventilated, able to follow commands today and pupils are equally reactive Eyes: Pupils reactive to light today. Ears: No visible ear discharge Nose: No visible nasal discharge. Mouth/Throat: Moist mucous membranes, no redness, no lesions. Neck: Neck supple, no cervical lymphadenopathy. Lungs: Wheezing, but improving Cardio: Normal S1/S2, irregular, no murmurs, no JVD Abdomen: Soft, non-tender, no palpable masses, peristalsis present, no guarding or rebound Extremities: Right BKA with cyanotic changes at the stump still present, left foot demarcated purplish discoloration which did not increase in size, right upper extremity still swollen and 2nd and 3rd digits show necrotic changes at the tips. Skin: Right 2nd and 3rd upper extremity digits show necrotic changes at the tips with improvement in whole hand coloration. Left foot discoloration did not advance past marking yesterday. Still no pulse present. Reddish rash was appreciated on the left lower extremity and was warm to touch, but did not extend beyond demarcation yesterday. Right inner thigh rash has improved. Neuro: Mechanically ventilated able to move lower extremities, able to follow commands, pupils were reactive bilaterally Objective Labs 03/18/25 04:46 03/18/25 11:50 Labs: Laboratory Results - last 24 hr 03/17/25 03/17/25 03/17/25 04:58 16:02 19:06 WBC RBC Hgb Hct MCV MCH MCHC RDW Std Deviation Plt Count Neut % (Auto) Lymph % (Auto) Moore % (Auto) Eos % (Auto) Baso % (Auto) Neut # (Auto) Lymph # (Auto) Moore # (Auto) Eos # (Auto) Baso # (Auto) Immature Gran # (Auto) Absolute Nucleated RBC Immature Gran % Nucleated RBC % Smear Path Review Sent to Pathologist PT 23.5 H 20.3 H D INR 2.3 H 1.9 H APTT > 139.0 H* D 52.7 H D VBG pH VBG pCO2 VBG pO2 VBG O2 Sat (Guy) VBG Base Excess Sodium 137 133 L Potassium 3.5 3.1 L Chloride 103 99 Carbon Dioxide 25.9 25.4 Anion Gap 8 9 BUN 28 H 17 Creatinine 2.4 H D 1.7 H D Estim Creat Clear Calc 47.7 L 67.3 eGFR 32 L 48 L BUN/Creatinine Ratio 12 10 L Glucose 146 H 131 H Calculated Osmolality 282 269 L Lactic Acid 1.2 Calcium 7.7 L 8.9 Corrected Calcium 9.1 10.1 Phosphorus Magnesium Total Bilirubin 1.7 H 1.8 H AST 327 H 307 H ALT 1490 H* 1537 H* Alkaline Phosphatase 230 H D 239 H Troponin I Total Protein 4.2 L 4.6 L Albumin 2.3 L 2.5 L Globulin 1.9 L 2.1 L Albumin/Globulin Ratio 1.2 1.2 Misc Test Result 03/18/25 03/18/25 03/18/25 00:40 04:46 09:27 WBC 24.0 H RBC 3.04 L Hgb 9.3 L Hct 30.1 L MCV 99 MCH 30.6 MCHC 30.9 L RDW Std Deviation 55.7 H Plt Count 64 L Neut % (Auto) 76 Lymph % (Auto) 6 L Moore % (Auto) 3 Eos % (Auto) 1 Baso % (Auto) 1 Neut # (Auto) 18.2 H Lymph # (Auto) 1.3 Moore # (Auto) 0.8 Eos # (Auto) 0.2 Baso # (Auto) 0.1 Immature Gran # (Auto) 3.50 H Absolute Nucleated RBC 0.27 H Immature Gran % 15 H Nucleated RBC % 1 H Smear Path Review PT 17.8 H 17.7 H INR 1.8 H 1.7 H APTT 45.7 H 103.8 H* D VBG pH 7.34 VBG pCO2 54 D VBG pO2 34 VBG O2 Sat (Guy) 63 L VBG Base Excess 2 Sodium 133 L 137 Potassium 3.2 L 3.0 L Chloride 98 102 Carbon Dioxide 26.8 27.6 Anion Gap 8 7 BUN 11 10 Creatinine 1.1 D 1.1 Estim Creat Clear Calc 104.1 102.9 eGFR > 60 > 60 BUN/Creatinine Ratio 10 L 9 L Glucose 125 H 129 H Calculated Osmolality 266 L 274 L Lactic Acid Calcium 9.6 9.6 Corrected Calcium 10.6 H 10.6 H Phosphorus 2.4 Magnesium 1.7 Total Bilirubin 2.0 H 2.1 H AST 260 H 225 H ALT 1457 H* 1358 H* Alkaline Phosphatase 245 H 250 H Troponin I Total Protein 4.8 L 4.8 L Albumin 2.7 L 2.7 L Globulin 2.1 L 2.1 L Albumin/Globulin Ratio 1.3 1.3 Misc Test Result Platelets confirmed 03/18/25 03/18/25 03/18/25 10:09 11:35 11:50 WBC RBC Hgb Hct MCV MCH MCHC RDW Std Deviation Plt Count Neut % (Auto) Lymph % (Auto) Moore % (Auto) Eos % (Auto) Baso % (Auto) Neut # (Auto) Lymph # (Auto) Moore # (Auto) Eos # (Auto) Baso # (Auto) Immature Gran # (Auto) Absolute Nucleated RBC Immature Gran % Nucleated RBC % Smear Path Review PT 15.9 H INR 1.5 H APTT 33.2 D VBG pH VBG pCO2 VBG pO2 VBG O2 Sat (Guy) VBG Base Excess Sodium 136 Potassium 3.7 D Chloride 102 Carbon Dioxide 27.2 Anion Gap 7 BUN 17 Creatinine 1.7 H D Estim Creat Clear Calc 66.6 eGFR 48 L BUN/Creatinine Ratio 10 L Glucose 169 H Calculated Osmolality 277 Lactic Acid Calcium 9.6 Corrected Calcium 10.6 H Phosphorus Magnesium Total Bilirubin 2.1 H AST 175 H ALT 1213 H* Alkaline Phosphatase 244 H Troponin I 1.381 H* Total Protein 4.9 L Albumin 2.8 L Globulin 2.1 L Albumin/Globulin Ratio 1.3 Misc Test Result ABG Interpretation ABG results: 03/14/25 03/14/25 03/14/25 14:44 16:44 18:53 ABG pH 7.03 L* 7.04 L* 7.10 L* ABG pCO2 43 50 H 46 ABG pO2 86 128 H D 57 L* D ABG HCO3 11 L 13 L 14 L ABG O2 Saturation 91 97 78 L ABG Base Excess -19 L -17 L -15 L VBG pH VBG pCO2 VBG pO2 VBG Base Excess 03/14/25 03/15/25 03/15/25 21:20 05:07 12:28 ABG pH 7.21 L D 7.41 D ABG pCO2 32 D 31 L ABG pO2 116 H D 74 L D ABG HCO3 13 L 20 ABG O2 Saturation 97 95 ABG Base Excess -14 L -4 L VBG pH 7.43 VBG pCO2 34 L VBG pO2 37 VBG Base Excess -1 03/16/25 03/16/25 03/16/25 04:51 11:48 19:30 ABG pH 7.46 H 7.22 L D 7.38 D ABG pCO2 29 L 66 H D 48 D ABG pO2 78 L 79 L 236 H D ABG HCO3 21 27 H 29 H ABG O2 Saturation 96 91 100 H ABG Base Excess -2 -2 3 VBG pH VBG pCO2 VBG pO2 VBG Base Excess 03/17/25 03/18/25 04:53 09:27 ABG pH 7.38 ABG pCO2 49 H ABG pO2 78 L D ABG HCO3 29 H ABG O2 Saturation 95 ABG Base Excess 3 VBG pH 7.34 VBG pCO2 54 D VBG pO2 34 VBG Base Excess 2 Quality Measures Quality Measures none Assessment & Plan Assessment Current Active Medications: Generic Name Dose Route Start Last Admin Trade Name Freq PRN Reason Stop Dose Admin Acetaminophen 650 mg 03/14/25 17:31 Acetaminophen Supp 650 Mg Supp MD 04/13/25 17:30 Q6HR PRN FEVER>101.5 Aspirin 81 mg 03/16/25 09:00 03/18/25 08:21 Aspirin 81 Mg Chew GT 04/15/25 08:59 81 mg QDAY MONTSERRAT Administration Clopidogrel Bisulfate 75 mg 03/15/25 10:53 03/18/25 08:21 Clopidogrel Bisulfate 75 Mg Tablet GT 04/14/25 10:29 75 mg QDAY MONTSERRAT Administration Dextrose 25 ml 03/14/25 20:38 Dextrose 50%-Water Inj 50 Ml Syringe IV 04/13/25 20:37 Q15MIN PRN BG 50-70 responsive npo pt Dextrose 50 ml 03/14/25 20:38 Dextrose 50%-Water Inj 50 Ml Syringe IV 04/13/25 20:37 Q15MIN PRN BG <50 OR BG <70 & pt unresponsive Glucagon 1 mg 03/14/25 17:36 Glucagon Inj 1 Mg Vial IM Q15MIN PRN BG <70, and no IV access Heparin Sodium (Porcine) 5,000 unit 03/17/25 22:00 03/18/25 07:29 Heparin Sod Inj 5000 Unit/Ml Vial SC 03/31/25 21:59 5,000 unit Q8HR MONTSERRAT Administration Heparin Sodium (Porcine) 500 unit 03/18/25 08:15 03/18/25 13:12 Heparin Sod Inj 1000 Unit/Ml Vial 10 Ml INDWELLCAT 03/18/25 15:16 500 unit Q1H MONTSERRAT Administration Norepinephrine/Dextrose 8 mg in 250 mls @ 9.355 mls/hr 03/14/25 19:43 03/18/25 13:49 Levophed In D5w 8mg/250ml IV 04/13/25 19:42 0.03 mcg/kg/min .Q24H PRN 5.613 mls/hr PER PROTOCOL Titration Protocol 0.05 MCG/KG/MIN Vasopressin/Sodium Chloride 20 unit in 100 mls @ 9 mls/hr 03/14/25 20:33 03/14/25 21:45 Vasostrict/Ns Ivpb IV 04/13/25 20:32 0 unit/min .Q11H7M PRN 0 mls/hr PER PROTOCOL Titration Protocol 0.03 UNIT/MIN Levofloxacin/Dextrose 500 mg in 100 mls @ 100 mls/hr 03/19/25 16:30 Levaquin Ivpb IV 03/26/25 16:29 Q48H MONTSERRAT Fentanyl Citrate 2,500 mcg in 250 mls @ 2.5 mls/hr 03/17/25 22:21 03/18/25 11:34 Sublimaze Inj 2,500 Mcg/250 Ml Bag IV 03/19/25 21:07 0 mcg/hr .Q24H PRN 0 mls/hr PER PROTOCOL Titration Protocol 25 MCG/HR Propofol 1,000 mg in 100 mls @ 3.453 mls/hr 03/17/25 22:21 03/18/25 11:34 Diprivan Ivpb IV 04/13/25 21:06 0 mcg/kg/min .Q24H PRN 0 mls/hr PER PROTOCOL Titration Protocol 5 MCG/KG/MIN Dexmedetomidine/Sodium Chloride 200 mcg in 50 mls @ 5.625 mls/hr 03/18/25 11:43 03/18/25 13:00 Precedex Ivpb IV 04/17/25 11:42 0.4 mcg/kg/hr .Q8H54M PRN 11.25 mls/hr Per PROTOCOL Titration Protocol 0.2 MCG/KG/HR Insulin Human Lispro 0 unit 03/14/25 20:45 03/18/25 11:20 Insulin Lispro (Admelog) 1 Unit/0.01 Ml Unit SC 04/13/25 20:44 Not Given Q6HR MONTSERRAT Protocol Ondansetron HCl 4 mg 03/14/25 17:31 Ondansetron Inj 2 Mg/Ml Inj 2 Ml IV 04/13/25 17:30 Q6H PRN NAUSEA OR VOMITING Protocol Pantoprazole Sodium 40 mg 03/14/25 21:00 03/18/25 08:21 Pantoprazole Inj 40 Mg Vial IVP 04/13/25 20:59 40 mg BID MONTSERRAT Administration Sodium Chloride 3 ml 03/17/25 19:00 03/18/25 12:43 Sodium Cl Rt Marjorie 3% 4 Ml Nebu (Non-Formulary) INH 04/16/25 18:59 3 ml Q6HRRT MONTSERRAT Administration Plan 49-year-old male with past medical history of DM2, hypertension, ESRD (HD ), HFpEF (EF 55% on 2021), and right BKA due to osteomyelitis was admitted to the ICU on 03/14/2025 for acute hypoxic respiratory failure, acute encephalopathy, and shock. 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 CVS: #Shock Unknown etiology of shock at this time Continue Levophed Discontinue Zosyn [03/14/2025-03/17/2025] Discontinue Vanco [03/14/2025?03/16/2025] Continue levaquin 500mg q48hr [03/17/2025-] Echo showed EF 45 to 50% and septal dyskinesis #SVT #A-fib Patient again went into SVT last night and was shocked again, but on repeat EKG showed to be in A-fib RVR. Patient again went into SVT and received adenosine 6mg x1 and adenosine 12mg x1 before being cardioverted. Repeat EKG showed what appears to be MAT. [id number] score of 3 points indicating 3.2% risk of stroke per year HAS-BLED score of 5 points Will continue amiodarone drip for now #Troponinemia Troponins peaked at 7.899 and down trended to 7.04 EKG done overnight that shows some ST depressions in lead II and V3 to V6 Will continue on aspirin, Plavix Echo showed EF of 45 to 50% and septal dyskinesis Cardiology consulted, appreciate recommendations #HFpEF (EF 55% on 2021) Patient does have an echo on file from 2021 that they show EF of 55% Given positive U tox patient could have some dilated cardiomyopathy Echo showed an EF of 45 to 50% Will continue with CRRT for fluid removal Daily weights Strict JENN's Respiratory: #Acute hypoxic respiratory failure #Respiratory acidosis #Stenotrophomonas maltophilia pneumonia Intubated on 03/14/2025 Chest x-ray today showed again right lower lung atelectasis versus collapse. Sputum grew stenotrophomonas maltophilia ABG today Continue hypertonic saline inhaled solution and chest physiotherapy Continue levaquin 500mg q48hr [03/17/2025-] Will continue to monitor with daily ABGs and chest x-rays Renal: #ESRD (HD on ) #HAGMA, improving #Lactic acidosis, improving Will continue with CRRT and most likely transition to hemodialysis tomorrow as per nephrology Avoid nephrotoxic agents Renally dose medications Consults nephrology, appreciate recommendations #Hypocalcemia, resolved # Hypokalemia Potassium 3 today, gave 40 mg of potassium GI: #Possible GI bleed #Hematemesis Patient's hemoglobin today 9.3 #Transaminitis #Hepatomegaly Possible liver failure due to methamphetamine use? Could be due to shock liver versus hypoxia versus drug-induced Hepatitis panel negative and abdominal ultrasound that shows some hepatomegaly with possible cirrhosis versus hepatocellular disease. Liver enzymes continue to downtrend MSK: #Possible acute vs chronic limb ischemia Abdomen CTA with runoff that showed occlusion of multiple arteries including the left radial, gluteal, and tibial arteries as well as 90% stenosis of the left superficial femoral artery Also showed 80% stenosis of right superficial femoral artery Overnight ICU team spoke with vascular surgeon at [facility] who stated that at this time patient was not a candidate for transfer for revascularization. Discontinue heparin drip yesterday Will continue with aspirin and Plavix for now Endo: #DM2 #Hypoglycemia, resolved ISS Hypoglycemia protocol ordered Heme: #Hypercoagulopathy #DIC Got 11 units of cryoprecipitate during hospital stay PT 17.7, PTT 103.8, INR 1.7 today Only continue with aspirin and Plavix for now #Leukocytosis WBC 24 Most likely infectious given history of pneumonia Sputum cultures grew stenotrophomonas neutrophilia Discontinue Zosyn [03/14/2025-03/17/2025] Continue levaquin 750mg x1 then 500mg q48hr [03/17/2025-] #Macrocytic anemia #Thrombocytopenia Hemoglobin 9.3 and platelets 64 today No active signs of bleeding Will continue to monitor ID: #Community-acquired pneumonia Chest x-ray showed pneumonia of right base Discontinue vancomycin MRSA nares negative Blood cultures negative in 48 hours and sputum cultures did grow stenotrophomonas maltophilia Discontinue Zosyn [03/14/2025-03/17/2025] Continue levaquin 500mg q48hr [03/17/2025-] Social: Positive U tox for meth and marijuana Hospital Maintenance: Diet: Tube feeds DVT ppx: Heparin sc GI ppx: Protonix IV IV lines: PIV, CIV ([facility]/R SubC) Cruz: cruz cath Code status: DNR Dispo: ICU in the setting of shock and acute hypoxic respiratory failure Case disclosed with Attending Dr. Mike Lee PGY1 Attending Provider Attestation/Addendum Patient was seen with the PGY 1 and PGY 3 resident I agreed on the above assessment and plan Patient is on CRRT now Will switch to dialysis tomorrow Patient is known to have ESRD Status post peripheral vascular disease with acute thrombosis was not amicable to surgery versus angioplasty Vascular surgery consulted and cardiology consulted both denied any further intervention Has EKG changes which showed to be due to medications than 2 ischemia Troponin keep coming down Diagnosed with SVT versus MAT versus A-fib Has the following problems, encephalopathy, shock now on very small amount of vasopressors Pneumonia with stenotrophomonas bacteria on Levaquin Moderate reduction in EF 45 to 50%, SVT A-fib MAT Hypertension anemia chronic Right lower lung atelectasis on Levaquin Transaminitis with hepatomegaly most likely due to shock liver versus hypoxia Chronic and tolerated with acute limb ischemia Plan will continue with Levaquin, continue with hemodialysis and stop CRRT, try to extubate him today but patient sedation was too much for him and he could not be maintained on his own respiratory rate so he had to be resumed back again on ventilation and will reduce his sedation to minimal amount of Precedex and try to extubate him tomorrow
[2025-03-18] MEDS: LACTULOSE SYRUP 20 GM/30 ML UDC PO ×2 (14:44→21:33)
--- NOTE | 2025-03-18 15:04 | ESPR_ITS ---
<Statement entered by Yanci Villalobos MD - 03/23/25 08:37> The patient is evaluated by me personally along with resident physician Dr. Lito Salinas PGY 3 MD patient critical condition ICU mechanical ventilation requiring vasopressors making slow but steady progress still sedated arominnieble has severe vascular disease as well prognosis poor condition remains critical spent more than 45 minutes critical care time with patient's family and also the overall management agree with the treatment plan recommendation as documented Documentation for date of: 03/18/25 Subjective Subjective Interval history: Patient seen and examined in the ICU. Intubated and sedated on [facility] ventilation and pressors. On Amio drip. Exam Vital Signs Temp Pulse Resp BP Pulse Ox O2 Del Method O2 Flow Rate 98.2 F 99 16 115/69 100 Mechanical Ventilation 50 03/18/25 12:00 03/18/25 15:00 03/18/25 12:43 03/18/25 15:00 03/18/25 15:00 03/18/25 12:00 03/14/25 18:09 FiO2 35 03/18/25 14:56 Narrative Exam General: Mechanically ventilated, sedated Eyes: Pupils sluggish, mildy icteric. Ears: No visible ear discharge Nose: No visible nasal discharge. Mouth/Throat: Dry mucous membranes, no redness, no lesions. Neck: Neck supple, no cervical lymphadenopathy. Lungs: Clear CHRISTIANO in upper lobes, mildly decreased in lower lobes Cardio: Normal S1/S2, irregular, no murmurs, no JVD Abdomen: Soft, non-tender, no palpable masses, peristalsis present, no guarding or rebound, swollen in the lower abdomen and some mild ascites. Extremities: Right BKA with cyanotic changes at the stump, left foot demarcated purplish discoloration which increased in size, compared to yesterday, right upper extremity still swollen and digits are still very dark in color yet have improved from yesterday evening. Skin: Improvement in right upper extremity digit discoloration, but still worse on the right than on the left. Skin injury with purple discoloration in the lateral right thigh now does have some fluid-filled bullae, indurated redness demarcated rash in the inner right thigh unchanged in size Neuro: Mechanically ventilated and sedated, pupils very sluggish today. Objective Labs 03/18/25 04:46 03/18/25 11:50 Labs: Laboratory Results - last 24 hr 03/17/25 03/17/25 03/17/25 04:58 16:02 19:06 WBC RBC Hgb Hct MCV MCH MCHC RDW Std Deviation Plt Count Neut % (Auto) Lymph % (Auto) [place] % (Auto) Eos % (Auto) Baso % (Auto) Neut # (Auto) Lymph # (Auto) [place] # (Auto) Eos # (Auto) Baso # (Auto) Immature Gran # (Auto) Absolute Nucleated RBC Immature Gran % Nucleated RBC % Smear Path Review Sent to Pathologist PT 23.5 H 20.3 H D INR 2.3 H 1.9 H APTT > 139.0 H* D 52.7 H D VBG pH VBG pCO2 VBG pO2 VBG O2 Sat (Guy) VBG Base Excess Sodium 137 133 L Potassium 3.5 3.1 L Chloride 103 99 Carbon Dioxide 25.9 25.4 Anion Gap 8 9 BUN 28 H 17 Creatinine 2.4 H D 1.7 H D Estim Creat Clear Calc 47.7 L 67.3 eGFR 32 L 48 L BUN/Creatinine Ratio 12 10 L Glucose 146 H 131 H Calculated Osmolality 282 269 L Lactic Acid 1.2 Calcium 7.7 L 8.9 Corrected Calcium 9.1 10.1 Phosphorus Magnesium Total Bilirubin 1.7 H 1.8 H AST 327 H 307 H ALT 1490 H* 1537 H* Alkaline Phosphatase 230 H D 239 H Troponin I Total Protein 4.2 L 4.6 L Albumin 2.3 L 2.5 L Globulin 1.9 L 2.1 L Albumin/Globulin Ratio 1.2 1.2 Misc Test Result 03/18/25 03/18/25 03/18/25 00:40 04:46 09:27 WBC 24.0 H RBC 3.04 L Hgb 9.3 L Hct 30.1 L MCV 99 MCH 30.6 MCHC 30.9 L RDW Std Deviation 55.7 H Plt Count 64 L Neut % (Auto) 76 Lymph % (Auto) 6 L [place] % (Auto) 3 Eos % (Auto) 1 Baso % (Auto) 1 Neut # (Auto) 18.2 H Lymph # (Auto) 1.3 [place] # (Auto) 0.8 Eos # (Auto) 0.2 Baso # (Auto) 0.1 Immature Gran # (Auto) 3.50 H Absolute Nucleated RBC 0.27 H Immature Gran % 15 H Nucleated RBC % 1 H Smear Path Review PT 17.8 H 17.7 H INR 1.8 H 1.7 H APTT 45.7 H 103.8 H* D VBG pH 7.34 VBG pCO2 54 D VBG pO2 34 VBG O2 Sat (Guy) 63 L VBG Base Excess 2 Sodium 133 L 137 Potassium 3.2 L 3.0 L Chloride 98 102 Carbon Dioxide 26.8 27.6 Anion Gap 8 7 BUN 11 10 Creatinine 1.1 D 1.1 Estim Creat Clear Calc 104.1 102.9 eGFR > 60 > 60 BUN/Creatinine Ratio 10 L 9 L Glucose 125 H 129 H Calculated Osmolality 266 L 274 L Lactic Acid Calcium 9.6 9.6 Corrected Calcium 10.6 H 10.6 H Phosphorus 2.4 Magnesium 1.7 Total Bilirubin 2.0 H 2.1 H AST 260 H 225 H ALT 1457 H* 1358 H* Alkaline Phosphatase 245 H 250 H Troponin I Total Protein 4.8 L 4.8 L Albumin 2.7 L 2.7 L Globulin 2.1 L 2.1 L Albumin/Globulin Ratio 1.3 1.3 Misc Test Result Platelets confirmed 03/18/25 03/18/25 03/18/25 10:09 11:35 11:50 WBC RBC Hgb Hct MCV MCH MCHC RDW Std Deviation Plt Count Neut % (Auto) Lymph % (Auto) [place] % (Auto) Eos % (Auto) Baso % (Auto) Neut # (Auto) Lymph # (Auto) [place] # (Auto) Eos # (Auto) Baso # (Auto) Immature Gran # (Auto) Absolute Nucleated RBC Immature Gran % Nucleated RBC % Smear Path Review PT 15.9 H INR 1.5 H APTT 33.2 D VBG pH VBG pCO2 VBG pO2 VBG O2 Sat (Guy) VBG Base Excess Sodium 136 Potassium 3.7 D Chloride 102 Carbon Dioxide 27.2 Anion Gap 7 BUN 17 Creatinine 1.7 H D Estim Creat Clear Calc 66.6 eGFR 48 L BUN/Creatinine Ratio 10 L Glucose 169 H Calculated Osmolality 277 Lactic Acid Calcium 9.6 Corrected Calcium 10.6 H Phosphorus Magnesium Total Bilirubin 2.1 H AST 175 H ALT 1213 H* Alkaline Phosphatase 244 H Troponin I 1.381 H* Total Protein 4.9 L Albumin 2.8 L Globulin 2.1 L Albumin/Globulin Ratio 1.3 Misc Test Result ABG Interpretation ABG results: 03/14/25 03/14/25 03/14/25 14:44 16:44 18:53 ABG pH 7.03 L* 7.04 L* 7.10 L* ABG pCO2 43 50 H 46 ABG pO2 86 128 H D 57 L* D ABG HCO3 11 L 13 L 14 L ABG O2 Saturation 91 97 78 L ABG Base Excess -19 L -17 L -15 L VBG pH VBG pCO2 VBG pO2 VBG Base Excess 03/14/25 03/15/25 03/15/25 21:20 05:07 12:28 ABG pH 7.21 L D 7.41 D ABG pCO2 32 D 31 L ABG pO2 116 H D 74 L D ABG HCO3 13 L 20 ABG O2 Saturation 97 95 ABG Base Excess -14 L -4 L VBG pH 7.43 VBG pCO2 34 L VBG pO2 37 VBG Base Excess -1 03/16/25 03/16/25 03/16/25 04:51 11:48 19:30 ABG pH 7.46 H 7.22 L D 7.38 D ABG pCO2 29 L 66 H D 48 D ABG pO2 78 L 79 L 236 H D ABG HCO3 21 27 H 29 H ABG O2 Saturation 96 91 100 H ABG Base Excess -2 -2 3 VBG pH VBG pCO2 VBG pO2 VBG Base Excess 03/17/25 03/18/25 04:53 09:27 ABG pH 7.38 ABG pCO2 49 H ABG pO2 78 L D ABG HCO3 29 H ABG O2 Saturation 95 ABG Base Excess 3 VBG pH 7.34 VBG pCO2 54 D VBG pO2 34 VBG Base Excess 2 Quality Measures Quality Measures none Assessment & Plan Assessment Current Active Medications: Generic Name Dose Route Start Last Admin Trade Name Freq PRN Reason Stop Dose Admin Acetaminophen 650 mg 03/14/25 17:31 Acetaminophen Supp 650 Mg Supp MO 04/13/25 17:30 Q6HR PRN FEVER>101.5 Aspirin 81 mg 03/16/25 09:00 03/18/25 08:21 Aspirin 81 Mg Chew GT 04/15/25 08:59 81 mg QDAY MONTSERRAT Administration Clopidogrel Bisulfate 75 mg 03/15/25 10:53 04/24/25 08:21 Clopidogrel Bisulfate 75 Mg Tablet GT 04/14/25 10:29 75 mg QDAY MONTSERRAT Administration Dextrose 25 ml 03/14/25 20:38 Dextrose 50%-Water Inj 50 Ml Syringe IV 04/13/25 20:37 Q15MIN PRN BG 50-70 responsive npo pt Dextrose 50 ml 03/14/25 20:38 Dextrose 50%-Water Inj 50 Ml Syringe IV 04/13/25 20:37 Q15MIN PRN BG <50 OR BG <70 & pt unresponsive Glucagon 1 mg 03/14/25 17:36 Glucagon Inj 1 Mg Vial IM Q15MIN PRN BG <70, and no IV access Heparin Sodium (Porcine) 5,000 unit 03/17/25 22:00 03/18/25 14:23 Heparin Sod Inj 5000 Unit/Ml Vial SC 03/31/25 21:59 5,000 unit Q8HR MONTSERRAT Administration Heparin Sodium (Porcine) 500 unit 03/18/25 08:15 03/18/25 14:19 Heparin Sod Inj 1000 Unit/Ml Vial 10 Ml INDWELLCAT 03/18/25 15:16 500 unit Q1H MONTSERRAT Administration Norepinephrine/Dextrose 8 mg in 250 mls @ 9.355 mls/hr 03/14/25 19:43 03/18/25 14:00 Levophed In D5w 8mg/250ml IV 04/13/25 19:42 0.05 mcg/kg/min .Q24H PRN 9.355 mls/hr PER PROTOCOL Titration Protocol 0.05 MCG/KG/MIN Vasopressin/Sodium Chloride 20 unit in 100 mls @ 9 mls/hr 03/14/25 20:33 03/14/25 21:45 Vasostrict/Ns Ivpb IV 04/13/25 20:32 0 unit/min .Q11H7M PRN 0 mls/hr PER PROTOCOL Titration Protocol 0.03 UNIT/MIN Levofloxacin/Dextrose 500 mg in 100 mls @ 100 mls/hr 03/19/25 16:30 Levaquin Ivpb IV 03/26/25 16:29 Q48H MONTSERRAT Fentanyl Citrate 2,500 mcg in 250 mls @ 2.5 mls/hr 03/17/25 22:21 03/18/25 11:34 Sublimaze Inj 2,500 Mcg/250 Ml Bag IV 03/19/25 21:07 0 mcg/hr .Q24H PRN 0 mls/hr PER PROTOCOL Titration Protocol 25 MCG/HR Propofol 1,000 mg in 100 mls @ 3.453 mls/hr 03/17/25 22:21 03/18/25 11:34 Diprivan Ivpb IV 04/13/25 21:06 0 mcg/kg/min .Q24H PRN 0 mls/hr PER PROTOCOL Titration Protocol 5 MCG/KG/MIN Dexmedetomidine/Sodium Chloride 200 mcg in 50 mls @ 5.625 mls/hr 03/18/25 11:43 03/18/25 14:00 Precedex Ivpb IV 04/17/25 11:42 0.4 mcg/kg/hr .Q8H54M PRN 11.25 mls/hr Per PROTOCOL Titration Protocol 0.2 MCG/KG/HR Insulin Human Lispro 0 unit 03/14/25 20:45 03/18/25 11:20 Insulin Lispro (Admelog) 1 Unit/0.01 Ml Unit SC 04/13/25 20:44 Not Given Q6HR MONTSERRAT Protocol Lactulose 20 gm 03/18/25 14:45 03/18/25 14:44 Lactulose Syrup 20 Gm/30 Ml Udc PO 04/17/25 14:44 20 gm TID MONTSERRAT Administration Protocol Ondansetron HCl 4 mg 03/14/25 17:31 Ondansetron Inj 2 Mg/Ml Inj 2 Ml IV 04/13/25 17:30 Q6H PRN NAUSEA OR VOMITING Protocol Pantoprazole Sodium 40 mg 03/14/25 21:00 03/18/25 08:21 Pantoprazole Inj 40 Mg Vial IVP 04/13/25 20:59 40 mg BID MONTSERRAT Administration Sodium Chloride 3 ml 03/17/25 19:00 03/18/25 12:43 Sodium Cl Rt Marjorie 3% 4 Ml Nebu (Non-Formulary) INH 04/16/25 18:59 3 ml Q6HRRT MONTSERRAT Administration Plan 49-year-old male with past medical history of DM2, hypertension, ESRD (HD ), HFpEF (EF 55% on 2021), and right BKA due to osteomyelitis was admitted to the ICU on 03/14/2025 for acute hypoxic respiratory failure, acute encephalopathy, and shock. #Shock, undifferentiated #SVT #Shock liver # Tachyarrhythmia, unknown etiology #Elevated troponin likely NSTEMI type II supply and demand #HFpEF (EF 55% on 2021) #Lower extremity ischemia? Assessment: Unknown etiology of shock at this time There could be a mixed component of shock. Could be dealing with multifactorial due to possible cardiogenic shock in the setting of the patient being cold wet with elevated lactic acid in the low EF. Return patient's cardiac index and SVI to determine if the patient is in an acute state of cardiogenic shock. Further data points need to be provided to assess and identify cardiogenic shock. Also patient having bilateral pneumonia with elevated lactic acid leukocytosis could be a potential for septic shock. However the degree of patient's fluid overload due to ESRD and the decrease in ejection fraction needs towards patient suffering from a cardiogenic shock. Also patient having lower extremity ischemia is potential due to patient's no pulses were felt and cold extremities. The ICU team tried to rule out lower limb ischemia with a CTA lower extremity runoff. There was a concern for supraventricular tachycardia and route to the hospital the patient was shocked once on over the patient was unstable at that time or if there was an underlying rhythm such as atrial fibrillation or a flutter. Patient was placed on a diltiazem drip however it is discontinued at this point. Upon arrival it was found the patient to have elevated troponins which peaked at 7.8 are currently downtrending. Electrolytes were within normal limits. Patient also has history of HFpEF EF 55% 202. 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 Likely etiology of the patient's Cefobid could be due to dilated cardiomyopathy meth induced. Patient was also complaining of shortness of breath and increasing weight per family. 03/16/25: Patient still on norepi, vaso, and PIRRT. CT LER showed diffussed stenosis on the arteries of the LLE, occlusions in almost all major arteries. Vascular surgeon stated that the patient is not a candidate at this time for revascularization. Echo was done showed LV appears normal with EF 45-50%. Septal dyskinesis is seen, RV appears normal with RVSP 50 mmHg. Mildly dilated LA & RA Mild mitral regurgitation Mild-Moderate TR. We measured an estimate cardiac output using LVOT VTI from echo showing unlikely cardiogenic shock. To further assess RV function consider TAPSE/PAPSE calculation with POCUS or PA catheter for mix-venous gas for the calculation of Ficks formula or thermodilution for CO/CI. However with LVOT-VTI has shown good performance in estimating CO/CI. Also patient was shocked x1 due an episode of SVT, was started on amio drip. Prognosis is poor. We calculate with HR of 60: -LVOT area: 2.54 cm^2 -Stroke Volume: 64.52 mL -Cardiac output: 3.87 L/min Recommendations: -Antiarrythmic: amiodarone drip -Pressors: norepinephrine and vasopressin -Maintain electrolytes such as potassium magnesium and phosphorus within normal limits -CRRT for fluid overload -Currently patient too unstable for heart catheterization or peripheral angio -Hold off on beta-blockers, calcium channel blockers #Acute hypoxic respiratory failure on mechanical intubation #Respiratory acidosis #ESRD (HD on ) #HAGMA #Lactic acidosis #Hyperkalemia #Possible GI bleed #Hematemesis #DM2 #Hypoglycemia #Leukocytosis #Macrocytic anemia #Thrombocytopenia #Community-acquired pneumonia ?Defer management to the intensive care unit team. - Patient's care was discussed with my attending physician, Dr. Wilfredo De Leon MD Internal Medicine PGY-3 Attending Provider Attestation/Addendum Patient was seen with the PGY 1 and PGY 3 resident I agreed on the above assessment and plan Patient is on CRRT now Will switch to dialysis tomorrow Patient is known to have ESRD Status post peripheral vascular disease with acute thrombosis was not amicable to surgery versus angioplasty Vascular surgery consulted and cardiology consulted both denied any further intervention Has EKG changes which showed to be due to medications than 2 ischemia Troponin keep coming down Diagnosed with SVT versus MAT versus A-fib Has the following problems, encephalopathy, shock now on very small amount of vasopressors Pneumonia with stenotrophomonas bacteria on Levaquin Moderate reduction in EF 45 to 50%, SVT A-fib MAT Hypertension anemia chronic Right lower lung atelectasis on Levaquin Transaminitis with hepatomegaly most likely due to shock liver versus hypoxia Chronic and tolerated with acute limb ischemia Plan will continue with Levaquin, continue with hemodialysis and stop CRRT, try to extubate him today but patient sedation was too much for him and he could not be maintained on his own respiratory rate so he had to be resumed back again on ventilation and will reduce his sedation to minimal amount of Precedex and try to extubate him tomorrow
[2025-03-18] MEDS: Norepinephrine/D5W 8mg/250ml 8 MG/250 ML BAG 9.355 MG IV (15:29)
[2025-03-18] MEDS: DEXMEDETOMIDINE 11.25 MCG IV ×2 (15:47→20:14)
--- NOTE | 2025-03-18 16:51 | PC.SS ---
Update: Patient completed continuous dialysis today. Plan is for patient to receive dialysis tomorrow. Possible extubation tomorrow. Patient on pressor support. Tube feeds in place. Transfer has been cancelled.
[2025-03-18] MEDS: INSULIN LISPRO (AdmeLOG) 1 UNIT/0.01 ML UNIT SC ×2 (17:32→23:33)
[2025-03-18 19:48] LABS: Alanine Aminotransferase 1088 U/L (10-49); Albumin, Serum 2.7 gm/dL (3.5-5.0); Albumin/Globulin Ratio 1.2 (1.2-2.2); Alkaline Phosphatase 240 U/L (46-116); Anion Gap 8 (7-16); Aspartate Amino Transferase 138 U/L (0-34); BUN/Creatinine Ratio 10 Ratio (12-20); Blood Urea Nitrogen 22 mg/dL (9-23); Calcium 9.6 mg/dL (8.3-10.6); Calcium (Corrected) 10.6 mg/dL (8.5-10.1); Carbon Dioxide 27.3 mMol/L (20.0-31.0); Chloride 102 mMol/L (98-107); Creatinine (Component) 2.2 mg/dL (0.6-1.3); Estimated Creatinine Clearance 51.4 mL/min (>60); Globulin 2.2 gm/dL (2.3-3.5); Glucose 181 mg/dL (74-106); Osmolality,Calculated 282 (275-295); Potassium 3.5 mMol/L (3.4-5.1); Sodium 137 mMol/L (136-145); Total Protein 4.9 gm/dL (5.7-8.2); eGFR 35 See Note
[2025-03-18 20:36] LABS: INR 1.4 (0.9-1.3); Partial Thromboplastin Time 28.2 Seconds (22.0-36.0); Prothrombin Time 15.1 Seconds (9.0-12.2)
[2025-03-19] VITALS (119 sets, daily range): BP systolic 80–160; BP diastolic 49–93; PULSE 86–104; RESP 9–22; TEMP 36.6–36.9; O2SAT 86–100; BMI 33.9
[2025-03-19] MEDS: DEXMEDETOMIDINE 11.25 MCG IV ×2 (00:41→05:59)
[2025-03-19 01:19] LABS: Alanine Aminotransferase 970 U/L (10-49); Albumin, Serum 2.6 gm/dL (3.5-5.0); Albumin/Globulin Ratio 1.1 (1.2-2.2); Alkaline Phosphatase 229 U/L (46-116); Anion Gap 8 (7-16); Aspartate Amino Transferase 109 U/L (0-34); BUN/Creatinine Ratio 10 Ratio (12-20); Bilirubin,Total 1.6 mg/dL (0.3-1.2); Blood Urea Nitrogen 26 mg/dL (9-23); Calcium 9.6 mg/dL (8.3-10.6); Calcium (Corrected) 10.7 mg/dL (8.5-10.1); Chloride 101 mMol/L (98-107); Creatinine (Component) 2.6 mg/dL (0.6-1.3); Estimated Creatinine Clearance 43.5 mL/min (>60); Globulin 2.3 gm/dL (2.3-3.5); Glucose 176 mg/dL (74-106); Osmolality,Calculated 278 (275-295); Potassium 3.2 mMol/L (3.4-5.1); Sodium 135 mMol/L (136-145); Total Protein 4.9 gm/dL (5.7-8.2); eGFR 29 See Note
[2025-03-19] MEDS: SODIUM CL RT SOL 3% 4 ML NEBU (NON-FORMULARY) 3 ML INH ×3 (01:30→12:49)
[2025-03-19] MEDS: AMIODARONE 360 MG IVPB 360 MG/200 ML BAG 16.667 MG IV (03:40)
[2025-03-19] MEDS: POTASSIUM CHLORIDE 10% 20 MEQ/15 ML UDC 40 MEQ GT (03:40)
[2025-03-19 05:00] LABS: Base Excess 0 (-3-3); HCO3 26 mEq/L (20-26); Inspired Oxygen, FIO2 40 %; O2 Saturation 98 % (91-98); PCO2 48 mmHg (32.0-48.0); PO2 92 mmHg (83-108); pH, Arterial 7.35 (7.35-7.45)
[2025-03-19 05:03] LABS: Allen Test Performed/OK; Puncture Site Right Radial
[2025-03-19 05:58] LABS: Basophils # (Auto) 0.1 Thou/mm3 (0.0-0.2); Basophils % (Auto) 0 % (0-2.5); Eosinophils # (Auto) 0.2 Thou/mm3 (0.0-0.5); Eosinophils % (Auto) 1 % (0-10); Hematocrit 28.9 % (41.0-53.0); Hemoglobin 8.9 g/dL (13.5-16.0); Immature Granulocytes % (Auto) 14 % (0-0); Lymphocytes # (Auto) 1.1 Thou/mm3 (1.0-4.8); Lymphocytes % (Auto) 6 % (10-50); Mean Corpuscular HGB Conc 30.8 g/dl (31.0-37.0); Mean Corpuscular Hemoglobin 30.5 pg (25.0-35.0); Mean Corpuscular Volume 99 fL (80-100); Monocytes # (Auto) 0.7 Thou/mm3 (0.0-0.8); Monocytes % (Auto) 4 % (0-12); Neutrophils # (Auto) 14.8 Thou/mm3 (1.8-7.7); Neutrophils % (Auto) 76 % (37-80); Nucleated Red Blood Cell # 0.11 Thou/mm3 (0.00-0.00); Nucleated Red Blood Cell % 1 /100 WBC (0); RDW Standard Deviation 56.8 fL (35.1-43.9); Red Blood Count 2.92 Miln/mm3 (4.50-5.90); White Blood Count 19.4 Thou/mm3 (3.8-10.6)
[2025-03-19] MEDS: LACTULOSE SYRUP 20 GM/30 ML UDC PO (05:59)
[2025-03-19] MEDS: HEPARIN SOD INJ 5000 UNIT/ML VIAL SC ×3 (06:00→21:20)
[2025-03-19] MEDS: INSULIN LISPRO (AdmeLOG) 1 UNIT/0.01 ML UNIT SC (06:00)
[2025-03-19 06:24] LABS: INR 1.4 (0.9-1.3); Partial Thromboplastin Time 28.3 Seconds (22.0-36.0); Prothrombin Time 14.6 Seconds (9.0-12.2)
[2025-03-19 06:25] LABS: Platelet Count 52 Thou/mm3 (140-440); Slide Review Platelets confirmed
[2025-03-19 06:40] LABS: Alanine Aminotransferase 858 U/L (10-49); Albumin, Serum 2.6 gm/dL (3.5-5.0); Albumin/Globulin Ratio 1.1 (1.2-2.2); Alkaline Phosphatase 227 U/L (46-116); Anion Gap 8 (7-16); Aspartate Amino Transferase 97 U/L (0-34); BUN/Creatinine Ratio 10 Ratio (12-20); Bilirubin,Total 1.7 mg/dL (0.3-1.2); Blood Urea Nitrogen 28 mg/dL (9-23); Calcium 9.7 mg/dL (8.3-10.6); Calcium (Corrected) 10.8 mg/dL (8.5-10.1); Carbon Dioxide 25.7 mMol/L (20.0-31.0); Chloride 104 mMol/L (98-107); Creatinine (Component) 2.9 mg/dL (0.6-1.3); Globulin 2.3 gm/dL (2.3-3.5); Glucose 188 mg/dL (74-106); Magnesium 2.3 mg/dL (1.6-2.6); Osmolality,Calculated 286 (275-295); Sodium 138 mMol/L (136-145); Total Protein 4.9 gm/dL (5.7-8.2); eGFR 25 See Note
--- NOTE | 2025-03-19 07:00 | XR_ITS ---
Examination: AP chest single view Technique one AP portable sitting chest single view Exam date and time: March 19, 2025 0451 hrs. Comparison March 18, 2025 Indications: Hypoxic respiratory failure this week post intubation Findings: Significant pneumonia right middle lobe right base and left base Mild to moderate enlargement cardiac contour with prominent vascular congestion Right subclavian central line tip SVC satisfactory position Left internal jugular temporary dialysis catheter SVC satisfactory position Endotracheal tube tip 8 cm above marco The orogastric tube is in the stomach, the tip is below the level film Impression: Significant bilateral pneumonia Volume overload Endotracheal tube tip 8 cm above marco
[2025-03-19] MEDS: CLOPIDOGREL BISULFATE 75 MG TABLET GT (08:19)
[2025-03-19] MEDS: PANTOPRAZOLE INJ 40 MG VIAL IVP ×2 (08:19→21:20)
[2025-03-19] MEDS: ASPIRIN 81 MG CHEW GT (08:19)
--- NOTE | 2025-03-19 11:15 | PC.NURSE ---
BP TRENDING DOWN, PT REMAINS ASYMPTOMATIC WILL ADMIN PRN ALBUMIN 25/100ML AND CONT. MONITOR
[2025-03-19] MEDS: ALBUMIN HUMAN 25% IVPB 25 GM/100 ML BTL IV (11:17)
[2025-03-19 13:13] LABS: Alanine Aminotransferase 805 U/L (10-49); Albumin, Serum 3.1 gm/dL (3.5-5.0); Albumin/Globulin Ratio 1.3 (1.2-2.2); Alkaline Phosphatase 220 U/L (46-116); Anion Gap 8 (7-16); Aspartate Amino Transferase 78 U/L (0-34); BUN/Creatinine Ratio 10 Ratio (12-20); Bilirubin,Total 1.8 mg/dL (0.3-1.2); Blood Urea Nitrogen 22 mg/dL (9-23); Calcium 9.2 mg/dL (8.3-10.6); Calcium (Corrected) 9.9 mg/dL (8.5-10.1); Chloride 103 mMol/L (98-107); Creatinine (Component) 2.3 mg/dL (0.6-1.3); Estimated Creatinine Clearance 49.4 mL/min (>60); Globulin 2.3 gm/dL (2.3-3.5); Glucose 165 mg/dL (74-106); Osmolality,Calculated 284 (275-295); Potassium 3.5 mMol/L (3.4-5.1); Sodium 139 mMol/L (136-145); Total Protein 5.4 gm/dL (5.7-8.2); eGFR 34 See Note
[2025-03-19] MEDS: DEXMEDETOMIDINE 400 MCG IVPB 400 MCG/100 ML BAG 11.25 MCG IV ×2 (13:45→22:56)
[2025-03-19] MEDS: HEPARIN SOD INJ 1000 UNIT/ML VIAL 10 ML 3000 UNIT INDWELLCAT (13:50)
--- NOTE | 2025-03-19 14:50 | ESPR_ITS ---
<Statement entered by Radha Mckeon MD - 03/19/25 16:57> I supervised PGY residents for this procedure. I agree on the above note No complications Central IJ line on the right side was placed and confirmed by x-ray Central line is okay to be used Previous subclavian line was removed Documentation for date of: 03/19/25 Subjective Subjective Interval history: 49-year-old male with past medical history of DM2, hypertension, ESRD (HD ), HFpEF (EF 55% on 2021), and right BKA due to osteomyelitis was admitted to the ICU on 03/14/2025 after coming to the ED via ambulance due to altered mental status. Given patient's mental status and being intubated most of the history was taken from chart review and from patient's who was at bedside. Patient's stated that he was in the ER around 3 days ago due to some substernal chest pain and shortness of breath, but he was discharged with some antibiotics that he was told he had some pneumonia. She mentioned that yesterday in the evening he again had some shortness of breath and was kind of confused, but he did not want to come into the hospital at this time. Today in the morning she states that he was less responsive and that he was more cyanotic. At this time she decided to call EMS who brought the patient to the ED. As per chart review patient was in SVT when EMS arrived therefore he was shocked once and he converted to sinus rhythm. He was also noticed to be very hypoglycemic when he came into the ED with a blood glucose of around 23 therefore he was given multiple amps of D50. ED physician started patient on diltiazem drip. Of note, patient's states that this week he had to get more sessions of hemodialysis as he had increased a lot in weight. She mentioned that the last hemodialysis was on Saturday. She also mentioned that they are having a no recent changes on his medications and that he had not been using any medication for his diabetes. 03/15/2025: Patient seen and examined at bedside this morning. Overnight patient required to be placed on vasopressors as his blood pressure had dropped. They started the vasopressors on the peripheral IV line in the right upper extremity the IV line was infiltrated therefore they gave phentolamine x 1 and placed warm compresses. This morning a central line was placed on the right IJ and hemodialysis catheter was placed on the left IJ. Patient's labs today showed that hemoglobin was stable and since there was no more coffee-ground material coming from the NG tube we will start heparin drip, aspirin, and Plavix given that his troponins up trended to 7.899 before downtrending and the his EKG overnight did show some ST depressions in the inferior and lateral leads. Patient's metabolic acidosis is is improving slightly and lactic acid is downtrending. Patient's liver enzymes were severely elevated with AST and ALT above 6000 and 3300 respectively, order abdominal ultrasound and hepatitis panel. Chest x-ray this morning also showed that there could be right lower lobe collapse therefore will do bronchoscopy to better assess. Ordered CT angiogram of abdomen with iliofemoral runoff to assess for possible acute limb ischemia on the left lower extremity given that yesterday with follow-up weak pulse, but today extremity was pulseless. 03/16/2025: Patient seen and examined at bedside this morning. Overnight patient went back to SVT therefore she was shocked. Night team also started the patient on amiodarone drip given that on EKG at that showed that he had some A-fib with RVR. Today patient's chest x-ray did look a little bit better than yesterday and his right lower lung was more visible today, but he required baggin due to desaturation therefore will do bronchoscopy. Patient was sedated therefore his neurological status could not be assessed today, but his pupils were more sluggish today and less reactive. His left foot looks worse today when compared to yesterday, but his right hand did not look better than yesterday. CTA with runoff yesterday that showed occlusion of several arteries on the left leg and stenosis of the right superficial femoral artery. Spoke with vascular surgeon today who stated that patient most likely had a chronic peripheral vascular disease and that in the setting of his shock this was likely exacerbated, he mentioned at this time patient is not a candidate for revascularization surgery and to continue to wean off patient off vasopressors at this time. Patient's LFTs are downtrending. Patient's MRSA nares came back negative therefore will discontinue vancomycin. Repeat DIC panel today and repeated CK today as well. Patient went into SVT with heart rate in the 200s prior to his bronchoscopy, patient was given 6 mg of adenosine initially then 12 mg of adenosine and eventually was cardioverted. Repeat EKG afterwards showed what looks to be multifocal atrial tachycardia. Afterwards patient's heart rate has been in the 60s to 80s. Patient's was at bedside this afternoon and she was given an update on the patient's current condition. Given the patient's guarded prognosis and current condition the patient's CODE STATUS was reassessed with the patient's . She found that it was in the patient's best interest to change his CODE STATUS from full code to DNR at this time. At this time all questions and doubts patient's had were answered fully. Was explained that we will continue to do all medical treatment including for his SVT with cardioversion if it came to happen. She was understanding and wanted to proceed with this. 03/17/2025: Patient was seen and examined at bedside this morning. No overnight events. Start tube feeds today. Patient was taken to IR for subclavian central line placement. WBC continue to uptrend and sputum grew stenotrophomonas maltophilia which was only sensitive to levofloxacin and Bactrim, will switch to levaquin. Started chest physiotherapy and hypertonic saline inhaled solution for possible mucous secretions in the right lower lobe. 03/18/2025: Patient was seen and examined at bedside this morning. He did still have some wheezings, but these were much better than yesterday. Overnight ICU team spoke with vascular surgeon from [facility] who stated that the patient was not a candidate for transfer for revascularization at this time. Patient today was more awake and was able to follow commands still moving his lower extremities and bilateral hands. Patient is currently only on Precedex drip, as he was able to follow commands attempted to place him on spontaneous breathing trial, but he was not adequately initiating of breath therefore placed back on AC/VC mode. Will reattempt SBT tomorrow. Repeat EKG this morning showed patient to have new Q waves with some ST depressions, spoke with grocery packer who stated patient was not having an acute NC and that it was probably old and that he was also too unstable to take to the Stem Setter at this time. No need for heparin drip as PTT is above 100. 03/19/2025: Patient was seen and examined at bedside this morning. No acute overnight events. Patient sounds clear today bilaterally with no wheezes. Patient did a little bit better on SBT today therefore SIMV mode was placed on the ventilator. Will continue to do SBT daily for possible extubation in the enar future. Patient had around 3 bowel movements since last night, but no more afterwards. Will hold lactulose. Transitioned to PO amiodarone and will transition to midodrine 10mg TID. Exam Vital Signs Temp Pulse Resp BP Pulse Ox O2 Del Method O2 Flow Rate 98.2 F 102 H 18 122/71 100 Mechanical Ventilation 50 03/19/25 13:53 03/19/25 13:53 03/19/25 13:53 03/19/25 13:53 03/19/25 13:53 03/18/25 16:00 03/14/25 18:09 FiO2 35 03/19/25 13:53 Narrative Exam General: Mechanically ventilated, able to follow commands today and pupils are equally reactive Eyes: Pupils reactive to light today and able to track. Ears: No visible ear discharge Nose: No visible nasal discharge. Mouth/Throat: Moist mucous membranes, no redness, no lesions. Neck: Neck supple, no cervical lymphadenopathy. Lungs: Clear today Cardio: Normal S1/S2, irregular, no murmurs, no JVD Abdomen: Soft, non-tender, no palpable masses, peristalsis present, no guarding or rebound Extremities: Right BKA with cyanotic changes at the stump still present, left foot demarcated purplish discoloration which did not increase in size, right upper extremity still swollen and 2nd and 3rd digits show necrotic changes at the tips. Skin: Right 2nd and 3rd upper extremity digits show necrotic changes at the tips with improvement in whole hand coloration. Left foot discoloration did extend slightly beyond demarcation as compared to yesterday. Reddish rash was appreciated on the left lower extremity did not extend. Right inner thigh rash has improved, mild erythematous rash appeared in the groin area.. Neuro: Mechanically ventilated able to move lower extremities, able to follow commands, pupils were reactive bilaterally Objective Labs 03/19/25 04:52 03/19/25 12:08 Labs: Laboratory Results - last 24 hr 03/18/25 03/19/25 03/19/25 18:52 00:40 04:46 WBC RBC Hgb Hct MCV MCH MCHC RDW Std Deviation Plt Count Neut % (Auto) Lymph % (Auto) Brantley % (Auto) Eos % (Auto) Baso % (Auto) Neut # (Auto) Lymph # (Auto) Brantley # (Auto) Eos # (Auto) Baso # (Auto) Immature Gran # (Auto) Absolute Nucleated RBC Immature Gran % Nucleated RBC % PT 15.1 H INR 1.4 H APTT 28.2 Puncture Site Right Radial ABG pH 7.35 ABG pCO2 48 ABG pO2 92 ABG HCO3 26 ABG O2 Saturation 98 ABG Base Excess 0 FiO2 40 Sodium 137 135 L Potassium 3.5 3.2 L Chloride 102 101 Carbon Dioxide 27.3 26.0 Anion Gap 8 8 BUN 22 26 H Creatinine 2.2 H D 2.6 H Estim Creat Clear Calc 51.4 L 43.5 L eGFR 35 L 29 L BUN/Creatinine Ratio 10 L 10 L Glucose 181 H 176 H Calculated Osmolality 282 278 Calcium 9.6 9.6 Corrected Calcium 10.6 H 10.7 H Phosphorus Magnesium Total Bilirubin 2.0 H 1.6 H AST 138 H 109 H ALT 1088 H* 970 H* Alkaline Phosphatase 240 H 229 H Total Protein 4.9 L 4.9 L Albumin 2.7 L 2.6 L Globulin 2.2 L 2.3 Albumin/Globulin Ratio 1.2 1.1 L Misc Test Result 03/19/25 03/19/25 04:52 12:08 WBC 19.4 H RBC 2.92 L Hgb 8.9 L Hct 28.9 L MCV 99 MCH 30.5 MCHC 30.8 L RDW Std Deviation 56.8 H Plt Count 52 L Neut % (Auto) 76 Lymph % (Auto) 6 L Brantley % (Auto) 4 Eos % (Auto) 1 Baso % (Auto) 0 Neut # (Auto) 14.8 H Lymph # (Auto) 1.1 Brantley # (Auto) 0.7 Eos # (Auto) 0.2 Baso # (Auto) 0.1 Immature Gran # (Auto) 2.70 H Absolute Nucleated RBC 0.11 H Immature Gran % 14 H Nucleated RBC % 1 H PT 14.6 H INR 1.4 H APTT 28.3 Puncture Site ABG pH ABG pCO2 ABG pO2 ABG HCO3 ABG O2 Saturation ABG Base Excess FiO2 Sodium 138 139 Potassium 4.0 D 3.5 D Chloride 104 103 Carbon Dioxide 25.7 28.0 Anion Gap 8 8 BUN 28 H 22 Creatinine 2.9 H 2.3 H D Estim Creat Clear Calc 39.0 L 49.4 L eGFR 25 L 34 L BUN/Creatinine Ratio 10 L 10 L Glucose 188 H 165 H Calculated Osmolality 286 284 Calcium 9.7 9.2 Corrected Calcium 10.8 H 9.9 Phosphorus 4.0 Magnesium 2.3 Total Bilirubin 1.7 H 1.8 H AST 97 H 78 H ALT 858 H* 805 H* Alkaline Phosphatase 227 H 220 H Total Protein 4.9 L 5.4 L Albumin 2.6 L 3.1 L D Globulin 2.3 2.3 Albumin/Globulin Ratio 1.1 L 1.3 Misc Test Result Platelets confirmed ABG Interpretation ABG results: 03/14/25 03/14/25 03/14/25 14:44 16:44 18:53 ABG pH 7.03 L* 7.04 L* 7.10 L* ABG pCO2 43 50 H 46 ABG pO2 86 128 H D 57 L* D ABG HCO3 11 L 13 L 14 L ABG O2 Saturation 91 97 78 L ABG Base Excess -19 L -17 L -15 L VBG pH VBG pCO2 VBG pO2 VBG Base Excess 03/14/25 03/15/25 03/15/25 21:20 05:07 12:28 ABG pH 7.21 L D 7.41 D ABG pCO2 32 D 31 L ABG pO2 116 H D 74 L D ABG HCO3 13 L 20 ABG O2 Saturation 97 95 ABG Base Excess -14 L -4 L VBG pH 7.43 VBG pCO2 34 L VBG pO2 37 VBG Base Excess -1 03/16/25 03/16/25 03/16/25 04:51 11:48 19:30 ABG pH 7.46 H 7.22 L D 7.38 D ABG pCO2 29 L 66 H D 48 D ABG pO2 78 L 79 L 236 H D ABG HCO3 21 27 H 29 H ABG O2 Saturation 96 91 100 H ABG Base Excess -2 -2 3 VBG pH VBG pCO2 VBG pO2 VBG Base Excess 03/17/25 03/18/25 03/19/25 04:53 09:27 04:46 ABG pH 7.38 7.35 ABG pCO2 49 H 48 ABG pO2 78 L D 92 ABG HCO3 29 H 26 ABG O2 Saturation 95 98 ABG Base Excess 3 0 VBG pH 7.34 VBG pCO2 54 D VBG pO2 34 VBG Base Excess 2 Quality Measures Quality Measures none Assessment & Plan Assessment Current Active Medications: Generic Name Dose Route Start Last Admin Trade Name Freq PRN Reason Stop Dose Admin Acetaminophen 650 mg 03/14/25 17:31 Acetaminophen Supp 650 Mg Supp FL 04/13/25 17:30 Q6HR PRN FEVER>101.5 Aspirin 81 mg 03/16/25 09:00 03/19/25 08:19 Aspirin 81 Mg Chew GT 04/15/25 08:59 81 mg QDAY MONTSERRAT Administration Clopidogrel Bisulfate 75 mg 03/15/25 10:53 03/19/25 08:19 Clopidogrel Bisulfate 75 Mg Tablet GT 04/14/25 10:29 75 mg QDAY MONTSERRAT Administration Dextrose 25 ml 03/14/25 20:38 Dextrose 50%-Water Inj 50 Ml Syringe IV 04/13/25 20:37 Q15MIN PRN BG 50-70 responsive npo pt Dextrose 50 ml 03/14/25 20:38 Dextrose 50%-Water Inj 50 Ml Syringe IV 04/13/25 20:37 Q15MIN PRN BG <50 OR BG <70 & pt unresponsive Glucagon 1 mg 03/14/25 17:36 Glucagon Inj 1 Mg Vial IM Q15MIN PRN BG <70, and no IV access Heparin Sodium (Porcine) 5,000 unit 03/17/25 22:00 03/19/25 13:45 Heparin Sod Inj 5000 Unit/Ml Vial SC 03/31/25 21:59 5,000 unit Q8HR MONTSERRAT Administration Heparin Sodium (Porcine) 3,000 unit 03/19/25 13:33 03/19/25 13:50 Heparin Sod Inj 1000 Unit/Ml Vial 10 Ml INDWELLCAT 04/02/25 13:32 3,000 unit PRN PRN Administration DIALYSIS Norepinephrine/Dextrose 8 mg in 250 mls @ 9.355 mls/hr 03/14/25 19:43 03/19/25 07:24 Levophed In D5w 8mg/250ml IV 04/13/25 19:42 0.05 mcg/kg/min .Q24H PRN 9.355 mls/hr PER PROTOCOL Titration Protocol 0.05 MCG/KG/MIN Vasopressin/Sodium Chloride 20 unit in 100 mls @ 9 mls/hr 03/14/25 20:33 03/14/25 21:45 Vasostrict/Ns Ivpb IV 04/13/25 20:32 0 unit/min .Q11H7M PRN 0 mls/hr PER PROTOCOL Titration Protocol 0.03 UNIT/MIN Levofloxacin/Dextrose 500 mg in 100 mls @ 100 mls/hr 03/19/25 16:30 Levaquin Ivpb IV 03/26/25 16:29 Q48H MONTSERRAT Fentanyl Citrate 2,500 mcg in 250 mls @ 2.5 mls/hr 03/17/25 22:21 03/18/25 11:34 Sublimaze Inj 2,500 Mcg/250 Ml Bag IV 03/19/25 21:07 0 mcg/hr .Q24H PRN 0 mls/hr PER PROTOCOL Titration Protocol 25 MCG/HR Propofol 1,000 mg in 100 mls @ 3.453 mls/hr 03/17/25 22:21 03/18/25 11:34 Diprivan Ivpb IV 04/13/25 21:06 0 mcg/kg/min .Q24H PRN 0 mls/hr PER PROTOCOL Titration Protocol 5 MCG/KG/MIN Amiodarone HCl/Dextrose 360 mg in 200 mls @ 16.667 mls/hr 03/18/25 16:11 03/19/25 03:40 Nexterone Ivpb IV 03/19/25 16:00 16.667 mls/hr .Q12H MONTSERRAT Administration Albumin Human 25 gm in 100 mls @ 100 mls/min 03/19/25 10:38 03/19/25 11:17 Albuminar-25 Ivpb IV 100 mls/min PRN PRN Administration DIALYSIS Dexmedetomidine/Sodium Chloride 400 mcg in 100 mls @ 5.625 mls/hr 03/19/25 13:39 03/19/25 13:45 Precedex Ivpb IV 04/18/25 13:38 0.4 mcg/kg/hr .[id number] PRN 11.25 mls/hr Per PROTOCOL Administration Protocol 0.2 MCG/KG/HR Insulin Human Lispro 0 unit 03/14/25 20:45 03/19/25 12:21 Insulin Lispro (Admelog) 1 Unit/0.01 Ml Unit SC 04/13/25 20:44 Not Given Q6HR MONTSERRAT Protocol Lactulose 20 gm 03/18/25 14:45 03/19/25 05:59 Lactulose Syrup 20 Gm/30 Ml Udc PO 04/17/25 14:44 20 gm TID MONTSERRAT Administration Protocol Ondansetron HCl 4 mg 03/14/25 17:31 Ondansetron Inj 2 Mg/Ml Inj 2 Ml IV 04/13/25 17:30 Q6H PRN NAUSEA OR VOMITING Protocol Pantoprazole Sodium 40 mg 03/14/25 21:00 03/19/25 08:19 Pantoprazole Inj 40 Mg Vial IVP 04/13/25 20:59 40 mg BID MONTSERRAT Administration Sodium Chloride 3 ml 03/17/25 19:00 03/19/25 12:49 Sodium Cl Rt Marjorie 3% 4 Ml Nebu (Non-Formulary) INH 04/16/25 18:59 3 ml Q6HRRT MONTSERRAT Administration Plan 49-year-old male with past medical history of DM2, hypertension, ESRD (HD ), HFpEF (EF 55% on 2021), and right BKA due to osteomyelitis was admitted to the ICU on 03/14/2025 for acute hypoxic respiratory failure, acute encephalopathy, and shock. 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 CVS: #Shock Unknown etiology of shock at this time Discontinue Zosyn [03/14/2025-03/17/2025] Discontinue Vanco [03/14/2025?03/16/2025] Continue levaquin 500mg q48hr [03/17/2025-] Midodrine 10mg TID Echo showed EF 45 to 50% and septal dyskinesis #SVT #A-fib Patient again went into SVT last night and was shocked again, but on repeat EKG showed to be in A-fib RVR. Patient again went into SVT and received adenosine 6mg x1 and adenosine 12mg x1 before being cardioverted. Repeat EKG showed what appears to be MAT. [id number] score of 3 points indicating 3.2% risk of stroke per year HAS-BLED score of 5 points Stop amio drip today, Start amiodarone 200mg BID #Troponinemia Troponins peaked at 7.899 and down trended to 7.04 EKG done overnight that shows some ST depressions in lead II and V3 to V6 Will continue on aspirin, Plavix Echo showed EF of 45 to 50% and septal dyskinesis Cardiology consulted, appreciate recommendations #HFpEF (EF 55% on 2021) Patient does have an echo on file from 2021 that they show EF of 55% Given positive U tox patient could have some dilated cardiomyopathy Echo showed an EF of 45 to 50% Will continue with hemodialysis Daily weights Strict JENN's Respiratory: #Acute hypoxic respiratory failure #Respiratory acidosis #Stenotrophomonas maltophilia pneumonia Intubated on 03/14/2025 Chest x-ray today shows some improvement in right lower lung atelectasis versus collapse Sputum grew stenotrophomonas maltophilia ABG today Continue hypertonic saline inhaled solution and chest physiotherapy Continue levaquin 500mg q48hr [03/17/2025-] SBT trials daily Will continue to monitor with daily ABGs and chest x-rays Renal: #ESRD (HD on ) #HAGMA, resolved #Lactic acidosis, resolved Hemodialysis today. Avoid nephrotoxic agents Renally dose medications Consults nephrology, appreciate recommendations #Hypocalcemia, resolved # Hypokalemia, resolved GI: #Possible GI bleed #Hematemesis Patient's hemoglobin today 8.9 #Transaminitis #Hepatomegaly Possible liver failure due to methamphetamine use? Could be due to shock liver versus hypoxia versus drug-induced Hepatitis panel negative and abdominal ultrasound that shows some hepatomegaly with possible cirrhosis versus hepatocellular disease. Liver enzymes continue to downtrend MSK: #Possible acute vs chronic limb ischemia Abdomen CTA with runoff that showed occlusion of multiple arteries including the left radial, gluteal, and tibial arteries as well as 90% stenosis of the left superficial femoral artery Also showed 80% stenosis of right superficial femoral artery Overnight ICU team spoke with vascular surgeon at [facility] who stated that at this time patient was not a candidate for transfer for revascularization. Discontinue heparin drip 03/17/2025 Will continue with aspirin and Plavix for now Endo: #DM2 #Hypoglycemia, resolved ISS Hypoglycemia protocol ordered Heme: #Hypercoagulopathy #DIC Got 11 units of cryoprecipitate during hospital stay PTT 28, PT 14.6, INR 1.4 today Continue with aspirin and Plavix for now #Leukocytosis WBC 19.4 today Most likely infectious given history of pneumonia Sputum cultures grew stenotrophomonas neutrophilia Discontinue Zosyn [03/14/2025-03/17/2025] Continue levaquin 750mg x1 then 500mg q48hr [03/17/2025-] #Macrocytic anemia #Thrombocytopenia Hemoglobin 8.9 and platelets 52 today No active signs of bleeding Will continue to monitor ID: #Community-acquired pneumonia Chest x-ray showed pneumonia of right base Discontinue vancomycin MRSA nares negative Blood cultures negative in 48 hours and sputum cultures did grow stenotrophomonas maltophilia Discontinue Zosyn [03/14/2025-03/17/2025] WBC now downtrending Continue levaquin 500mg q48hr [03/17/2025-] Social: Positive U tox for meth and marijuana Hospital Maintenance: Diet: Tube feeds DVT ppx: Heparin sc GI ppx: Protonix IV IV lines: PIV, CIV (LIJ/R SubC) Cruz: cruz cath Code status: DNR Dispo: ICU in the setting of shock and acute hypoxic respiratory failure Case disclosed with Attending Dr. Mike Lee PGY1 Disclaimer: This note was dictated by speech recognition, therefore there may be minor errors in fire chief due to voice. Attending Provider Attestation/Addendum I saw this patient with the PGY 1 and PGY 3 resident I agree on the above assessment and plan Patient came in with necrotic feet and toes on the left side he is known to have vascular disease Also he has necrotic tips of the fingers of both hands Patient was on the vent for sepsis septic shock and is maintained on pressors Currently he is on a very low-dose of 2 mics per hour of Levophed and we will switch him to the midodrine as needed He has been evaluated by cardiology and deemed not to be candidate for intervention He does have a history of CHF with cardiomyopathy with ejection fraction between 40 to 50% His AV fistula was clogged and he had to be switched to nontunneled catheter dialysis He is currently on a cath dialysis until he gets his AV fistula to be revascularized after he get discharged His catheter will need to be tunneled Patient was initially on heparin but because of his advanced liver disease heparin was stopped According to cardiology and vascular surgery patient was not to be on heparin and we maintain him on aspirin and Plavix for his cardiovascular disease There is no surgical intervention per vascular surgery We were not able to extubate him due to mental status namely lethargy Today he was more awake and was able to do spontaneous breathing trials He was maintained on spontaneous breathing for quite long time during the day However we will do SIMV versus pressure support at night and tomorrow we can do another trial and do extubation trial He did have multiple bowel movements but he is also on lactulose for his liver disease so we stopped the lactulose He does not have signs symptoms of C. difficile except for the white count elevation however he has only slight elevation of white count to about 12,000 We do not see a need to put him on p.o. antibiotics unless if the C. difficile came back positive Patient was found to have positive sputum culture with stenotrophomonas maltophilia bacteria He is on Levaquin every other day for 10 days Patient did have multiple episodes of A-fib versus SVT versus multifocal atrial tachycardia Most likely it was MAT Now his rate is controlled He is on IV amiodarone Plan Continue hemodialysis per nephrology Total of his catheter Plan is to do AV fistula angiogram after discharge Trial of spontaneous breathing tomorrow morning and extubation if successful Continue Plavix and aspirin No IV heparin Continue Levaquin for the total of 10 days Check C. difficile and start him on oral vancomycin if positive Watch his necrotic foot and determine what time is good to do the amputation at the site with demarcation-
[2025-03-19] MEDS: LEVOFLOXACIN/D5W 500 MG IVPB 500 MG/100 ML BAG 100 MG IV (17:02)
[2025-03-19] MEDS: AMIODARONE HCL 200 MG TABLET GT (21:20)
--- NOTE | 2025-03-19 22:05 | ESPR_ITS ---
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 He developed shocked liver as well, troponin elevation, significant elevation of type 2 myocardial infarction versus NSTEMI and marked ST depression in the patient's pericardial leads. He has history of possible myocardial infarction. The patient has remained hypotensive requiring vasopressors and still on norepinephrine drip, developed cardiac arrhythmia including atrial fibrillation with rapid ventricular response requiring IV amiodarone. He is maintaining sinus rhythm so far now, presently on norepinephrine drip and also sedation. The patient's clinical picture is not improving that much. He is somewhat arousable, but opens his eyes when he talks, but not much improvement. He still remains in acute hypoxic respiratory failure on mechanical ventilation, undergoing dialysis as well. Remains in critical condition. Though he has acute myocardial infarction, the patient is still unstable to have any cardiac catheterization. The patient has a history of chronic methamphetamine abuse as well, possibly causing cardiomyopathy and congestive heart failure. The patient clinically still has volume overload, significant edema of both upper extremities and also lower extremities. There is severe peripheral arterial occlusive disease with ischemic left lower extremity. Even the right below the knee amputation stump also appears to have some gangrenous ischemic changes. Clinically, he is on intermittent mechanical ventilation. OBJECTIVE: Vital Signs: Blood pressure 110/70, on vasopressors, norepinephrine. Heart rate is 100, respirations 18. 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 The patient is definitely not making much progress and noted to have mental status improved slightly, but respiratory status and hypotension not improved. Overall, prognosis is extremely poor and guarded. RECOMMENDATIONS: The plan will be to continue to monitor the patient closely in intensive care unit. There is a persistent and continued ventilator support and the patient is still unstable to have any coronary angiography at this time. Might consider next week if the patient is extubated and is much better, but for now, medical management. CONDITION: Critical. PROGNOSIS: Guarded. DT: 20:12:42 TT: 22:00:00 Ref: [id number] - TID: [id number] MTDD
[2025-03-20] VITALS (105 sets, daily range): BP systolic 81–154; BP diastolic 50–93; PULSE 78–105; RESP 6–37; TEMP 35.9–37; O2SAT 92–100; BMI 33.7
[2025-03-20] MEDS: INSULIN LISPRO (AdmeLOG) 1 UNIT/0.01 ML UNIT SC (00:45)
[2025-03-20] MEDS: HEPARIN SOD INJ 5000 UNIT/ML VIAL SC ×2 (05:43→14:17)
[2025-03-20] MEDS: SODIUM CL RT SOL 3% 4 ML NEBU (NON-FORMULARY) 3 ML INH ×2 (06:11→13:11)
[2025-03-20 06:24] LABS: Basophils % (Auto) 0 % (0-2.5); Eosinophils # (Auto) 0.2 Thou/mm3 (0.0-0.5); Eosinophils % (Auto) 2 % (0-10); Hematocrit 25.6 % (41.0-53.0); Immature Granulocytes % (Auto) 11 % (0-0); Immature Granulocytes Auto 1.28 Thou/mm3 (0.00-0.00); Lymphocytes # (Auto) 0.6 Thou/mm3 (1.0-4.8); Lymphocytes % (Auto) 5 % (10-50); Mean Corpuscular HGB Conc 30.5 g/dl (31.0-37.0); Mean Corpuscular Hemoglobin 30.7 pg (25.0-35.0); Mean Corpuscular Volume 101 fL (80-100); Monocytes # (Auto) 0.4 Thou/mm3 (0.0-0.8); Monocytes % (Auto) 3 % (0-12); Neutrophils % (Auto) 79 % (37-80); Nucleated Red Blood Cell # 0.03 Thou/mm3 (0.00-0.00); Nucleated Red Blood Cell % 0 /100 WBC (0); RDW Standard Deviation 58.5 fL (35.1-43.9); Red Blood Count 2.54 Miln/mm3 (4.50-5.90); White Blood Count 11.5 Thou/mm3 (3.8-10.6)
[2025-03-20 06:34] LABS: Alanine Aminotransferase 570 U/L (10-49); Albumin, Serum 2.6 gm/dL (3.5-5.0); Albumin/Globulin Ratio 1.2 (1.2-2.2); Alkaline Phosphatase 183 U/L (46-116); Anion Gap 9 (7-16); Aspartate Amino Transferase 45 U/L (0-34); BUN/Creatinine Ratio 9 Ratio (12-20); Bilirubin,Total 1.2 mg/dL (0.3-1.2); Blood Urea Nitrogen 31 mg/dL (9-23); Calcium 8.7 mg/dL (8.3-10.6); Calcium (Corrected) 9.8 mg/dL (8.5-10.1); Carbon Dioxide 26.4 mMol/L (20.0-31.0); Chloride 100 mMol/L (98-107); Creatinine (Component) 3.3 mg/dL (0.6-1.3); Estimated Creatinine Clearance 34.4 mL/min (>60); Globulin 2.2 gm/dL (2.3-3.5); Glucose 179 mg/dL (74-106); Magnesium 2.3 mg/dL (1.6-2.6); Osmolality,Calculated 280 (275-295); Phosphorous 3.5 mg/dL (2.4-5.1); Potassium 3.4 mMol/L (3.4-5.1); Sodium 135 mMol/L (136-145); Total Protein 4.8 gm/dL (5.7-8.2); eGFR 22 See Note
--- NOTE | 2025-03-20 06:39 | XR_ITS ---
Examination: AP chest single view TECHNIQUE: AP portable upright chest single view Standing time: March 20, 2025 at 0713 hours Comparison March 19, 2025 INDICATIONS: Hypoxic respiratory failure this week post intubation FINDINGS: Bibasilar pneumonia, significant right base Left internal jugular dialysis catheter tip in SVC Right subclavian central line tip SVC Endotracheal tube tip 5.6 cm above Kristine Mild enlargement cardiac contour with prominent vascular congestion The orogastric tube is in the stomach, the tip is below the level of the film IMPRESSION: Bibasilar pneumonia
[2025-03-20 06:55] LABS: Hemoglobin 7.8 g/dL (13.5-16.0); Platelet Count 39 Thou/mm3 (140-440)
[2025-03-20 07:37] LABS: Slide Review Platelets confirmed
[2025-03-20] MEDS: AMIODARONE HCL 200 MG TABLET GT ×2 (08:07→20:24)
[2025-03-20] MEDS: ASPIRIN 81 MG CHEW GT (08:07)
[2025-03-20] MEDS: PANTOPRAZOLE INJ 40 MG VIAL IVP ×2 (08:08→20:23)
[2025-03-20] MEDS: CLOPIDOGREL BISULFATE 75 MG TABLET GT (08:08)
--- NOTE | 2025-03-20 12:04 | PD.RESPRO ---
Documentation for date of: 03/20/25 Subjective Subjective Interval history: 49-year-old male with past medical history of DM2, hypertension, ESRD (HD ), HFpEF (EF 55% on 2021), and right BKA due to osteomyelitis was admitted to the ICU on 03/14/2025 after coming to the ED via ambulance due to altered mental status. Given patient's mental status and being intubated most of the history was taken from chart review and from patient's who was at bedside. Patient's stated that he was in the ER around 3 days ago due to some substernal chest pain and shortness of breath, but he was discharged with some antibiotics that he was told he had some pneumonia. She mentioned that yesterday in the evening he again had some shortness of breath and was kind of confused, but he did not want to come into the hospital at this time. Today in the morning she states that he was less responsive and that he was more cyanotic. At this time she decided to call EMS who brought the patient to the ED. As per chart review patient was in SVT when EMS arrived therefore he was shocked once and he converted to sinus rhythm. He was also noticed to be very hypoglycemic when he came into the ED with a blood glucose of around 23 therefore he was given multiple amps of D50. ED physician started patient on diltiazem drip. Of note, patient's states that this week he had to get more sessions of hemodialysis as he had increased a lot in weight. She mentioned that the last hemodialysis was on Saturday. She also mentioned that they are having a no recent changes on his medications and that he had not been using any medication for his diabetes. 03/15/2025: Patient seen and examined at bedside this morning. Overnight patient required to be placed on vasopressors as his blood pressure had dropped. They started the vasopressors on the peripheral IV line in the right upper extremity the IV line was infiltrated therefore they gave phentolamine x 1 and placed warm compresses. This morning a central line was placed on the right IJ and hemodialysis catheter was placed on the left IJ. Patient's labs today showed that hemoglobin was stable and since there was no more coffee-ground material coming from the NG tube we will start heparin drip, aspirin, and Plavix given that his troponins up trended to 7.899 before downtrending and the his EKG overnight did show some ST depressions in the inferior and lateral leads. Patient's metabolic acidosis is is improving slightly and lactic acid is downtrending. Patient's liver enzymes were severely elevated with AST and ALT above 6000 and 3300 respectively, order abdominal ultrasound and hepatitis panel. Chest x-ray this morning also showed that there could be right lower lobe collapse therefore will do bronchoscopy to better assess. Ordered CT angiogram of abdomen with iliofemoral runoff to assess for possible acute limb ischemia on the left lower extremity given that yesterday with follow-up weak pulse, but today extremity was pulseless. 03/16/2025: Patient seen and examined at bedside this morning. Overnight patient went back to SVT therefore she was shocked. Night team also started the patient on amiodarone drip given that on EKG at that showed that he had some A-fib with RVR. Today patient's chest x-ray did look a little bit better than yesterday and his right lower lung was more visible today, but he required baggin due to desaturation therefore will do bronchoscopy. Patient was sedated therefore his neurological status could not be assessed today, but his pupils were more sluggish today and less reactive. His left foot looks worse today when compared to yesterday, but his right hand did not look better than yesterday. CTA with runoff yesterday that showed occlusion of several arteries on the left leg and stenosis of the right superficial femoral artery. Spoke with vascular surgeon today who stated that patient most likely had a chronic peripheral vascular disease and that in the setting of his shock this was likely exacerbated, he mentioned at this time patient is not a candidate for revascularization surgery and to continue to wean off patient off vasopressors at this time. Patient's LFTs are downtrending. Patient's MRSA nares came back negative therefore will discontinue vancomycin. Repeat DIC panel today and repeated CK today as well. Patient went into SVT with heart rate in the 200s prior to his bronchoscopy, patient was given 6 mg of adenosine initially then 12 mg of adenosine and eventually was cardioverted. Repeat EKG afterwards showed what looks to be multifocal atrial tachycardia. Afterwards patient's heart rate has been in the 60s to 80s. Patient's was at bedside this afternoon and she was given an update on the patient's current condition. Given the patient's guarded prognosis and current condition the patient's CODE STATUS was reassessed with the patient's . She found that it was in the patient's best interest to change his CODE STATUS from full code to DNR at this time. At this time all questions and doubts patient's had were answered fully. Was explained that we will continue to do all medical treatment including for his SVT with cardioversion if it came to happen. She was understanding and wanted to proceed with this. 03/17/2025: Patient was seen and examined at bedside this morning. No overnight events. Start tube feeds today. Patient was taken to IR for subclavian central line placement. WBC continue to uptrend and sputum grew stenotrophomonas maltophilia which was only sensitive to levofloxacin and Bactrim, will switch to levaquin. Started chest physiotherapy and hypertonic saline inhaled solution for possible mucous secretions in the right lower lobe. 03/18/2025: Patient was seen and examined at bedside this morning. He did still have some wheezings, but these were much better than yesterday. Overnight ICU team spoke with vascular surgeon from [facility] who stated that the patient was not a candidate for transfer for revascularization at this time. Patient today was more awake and was able to follow commands still moving his lower extremities and bilateral hands. Patient is currently only on Precedex drip, as he was able to follow commands attempted to place him on spontaneous breathing trial, but he was not adequately initiating of breath therefore placed back on AC/VC mode. Will reattempt SBT tomorrow. Repeat EKG this morning showed patient to have new Q waves with some ST depressions, spoke with [employer]soft bi architect who stated patient was not having an acute DE and that it was probably old and that he was also too unstable to take to the Corporate Concierge at this time. No need for heparin drip as PTT is above 100. 03/19/2025: Patient was seen and examined at bedside this morning. No acute overnight events. Patient sounds clear today bilaterally with no wheezes. Patient did a little bit better on SBT today therefore SIMV mode was placed on the ventilator. Will continue to do SBT daily for possible extubation in the enar future. Patient had around 3 bowel movements since last night, but no more afterwards. Will hold lactulose. Transitioned to PO amiodarone and will transition to midodrine 10mg TID. 03/20/2025: Patient was seen at and examined bedside this morning. No acute overnight events. Patient today was successfully extubated after spontaneous breathing trial was done. Has been doing okay on nasal cannula and is alert and oriented x 3. At this time patient stable enough to be downgraded to the medical floors and all questions were answered to the patient at bedside also had a long discussion with patient about lifestyle changes as this was a light changing event for an and that he needed to abstain from any more drug use, smoking, or alcohol. Patient seemed to understand that he will most likely lose some of his digits and maybe even the left lower extremity. Exam Vital Signs Temp Pulse Resp BP Pulse Ox O2 Del Method O2 Flow Rate 97.0 F 102 H 25 H 130/77 100 Mechanical Ventilation 50 03/20/25 08:00 03/20/25 11:15 03/20/25 11:15 03/20/25 11:15 03/20/25 11:15 03/20/25 08:00 03/14/25 18:09 FiO2 30 03/20/25 08:03 Narrative Exam General: AO x 3, no acute distress Eyes: Pupils reactive to light, EOMI, vision intact Ears: No visible ear discharge Nose: No visible nasal discharge. Mouth/Throat: Moist mucous membranes, no redness, no lesions. Neck: Neck supple, no cervical lymphadenopathy. Lungs: Clear bilaterally today Cardio: Normal S1/S2, irregular, no murmurs, no JVD Abdomen: Soft, non-tender, no palpable masses, peristalsis present, no guarding or rebound Extremities: Right BKA with cyanotic changes at the stump still present, left foot demarcated purplish discoloration which did not increase in size, right upper extremity still swollen, but improving and 2nd and 3rd digits show necrotic changes at the tips. Skin: Right 2nd and 3rd upper extremity digits show necrotic changes at the tips with improvement in whole rest of hand coloration. Left foot discoloration did not extend from yesterday,. Reddish rash is all entirely gone. Right inner thigh rash has improved, mild erythematous rash appeared in the groin area also improved Neuro: Able to follow commands, AO x 3, able to move all extremities Objective Labs 03/20/25 04:33 03/20/25 04:33 Labs: Laboratory Results - last 24 hr 03/16/25 03/19/25 03/20/25 19:34 12:08 04:33 WBC 11.5 H D RBC 2.54 L Hgb 7.8 L Hct 25.6 L MCV 101 H MCH 30.7 MCHC 30.5 L RDW Std Deviation 58.5 H Plt Count 39 L D Neut % (Auto) 79 Lymph % (Auto) 5 L Chester % (Auto) 3 Eos % (Auto) 2 Baso % (Auto) 0 Neut # (Auto) 9.0 H Lymph # (Auto) 0.6 L Chester # (Auto) 0.4 Eos # (Auto) 0.2 Baso # (Auto) 0.0 Immature Gran # (Auto) 1.28 H Absolute Nucleated RBC 0.03 H Immature Gran % 11 H Nucleated RBC % 0 Sodium 139 135 L Potassium 3.5 D 3.4 Chloride 103 100 Carbon Dioxide 28.0 26.4 Anion Gap 8 9 BUN 22 31 H Creatinine 2.3 H D 3.3 H D Estim Creat Clear Calc 49.4 L 34.4 L eGFR 34 L 22 L BUN/Creatinine Ratio 10 L 9 L Glucose 165 H 179 H Calculated Osmolality 284 280 Calcium 9.2 8.7 Corrected Calcium 9.9 9.8 Phosphorus 3.5 Magnesium 2.3 Total Bilirubin 1.8 H 1.2 D AST 78 H 45 H ALT 805 H* 570 H* Alkaline Phosphatase 220 H 183 H D Total Protein 5.4 L 4.8 L Albumin 3.1 L D 2.6 L D Globulin 2.3 2.2 L Albumin/Globulin Ratio 1.3 1.2 Misc Test Result Platelets confirmed Crossmatch See Detail ABG Interpretation ABG results: 03/14/25 03/14/25 03/14/25 14:44 16:44 18:53 ABG pH 7.03 L* 7.04 L* 7.10 L* ABG pCO2 43 50 H 46 ABG pO2 86 128 H D 57 L* D ABG HCO3 11 L 13 L 14 L ABG O2 Saturation 91 97 78 L ABG Base Excess -19 L -17 L -15 L VBG pH VBG pCO2 VBG pO2 VBG Base Excess 03/14/25 03/15/25 03/15/25 21:20 05:07 12:28 ABG pH 7.21 L D 7.41 D ABG pCO2 32 D 31 L ABG pO2 116 H D 74 L D ABG HCO3 13 L 20 ABG O2 Saturation 97 95 ABG Base Excess -14 L -4 L VBG pH 7.43 VBG pCO2 34 L VBG pO2 37 VBG Base Excess -1 03/16/25 03/16/25 03/16/25 04:51 11:48 19:30 ABG pH 7.46 H 7.22 L D 7.38 D ABG pCO2 29 L 66 H D 48 D ABG pO2 78 L 79 L 236 H D ABG HCO3 21 27 H 29 H ABG O2 Saturation 96 91 100 H ABG Base Excess -2 -2 3 VBG pH VBG pCO2 VBG pO2 VBG Base Excess 03/17/25 03/18/25 03/19/25 04:53 09:27 04:46 ABG pH 7.38 7.35 ABG pCO2 49 H 48 ABG pO2 78 L D 92 ABG HCO3 29 H 26 ABG O2 Saturation 95 98 ABG Base Excess 3 0 VBG pH 7.34 VBG pCO2 54 D VBG pO2 34 VBG Base Excess 2 Quality Measures Quality Measures none Assessment & Plan Assessment Current Active Medications: Generic Name Dose Route Start Last Admin Trade Name Freq PRN Reason Stop Dose Admin Acetaminophen 650 mg 03/20/25 11:35 Acetaminophen 325 Mg Tablet PO 04/19/25 11:34 Q6HR PRN pain and Fever >100.4 Amiodarone HCl 200 mg 03/19/25 21:00 03/20/25 08:07 Amiodarone Hcl 200 Mg Tablet GT 04/18/25 20:59 200 mg BID MONTSERRAT Administration Aspirin 81 mg 03/16/25 09:00 03/20/25 08:07 Aspirin 81 Mg Chew GT 04/15/25 08:59 81 mg QDAY MONTSERRAT Administration Clopidogrel Bisulfate 75 mg 03/15/25 10:53 03/20/25 08:08 Clopidogrel Bisulfate 75 Mg Tablet GT 04/14/25 10:29 75 mg QDAY MONTSERRAT Administration Dextrose 25 ml 03/14/25 20:38 Dextrose 50%-Water Inj 50 Ml Syringe IV 04/13/25 20:37 Q15MIN PRN BG 50-70 responsive npo pt Dextrose 50 ml 03/14/25 20:38 Dextrose 50%-Water Inj 50 Ml Syringe IV 04/13/25 20:37 Q15MIN PRN BG <50 OR BG <70 & pt unresponsive Glucagon 1 mg 03/14/25 17:36 Glucagon Inj 1 Mg Vial IM Q15MIN PRN BG <70, and no IV access Heparin Sodium (Porcine) 5,000 unit 03/17/25 22:00 03/20/25 05:43 Heparin Sod Inj 5000 Unit/Ml Vial SC 03/31/25 21:59 5,000 unit Q8HR MONTSERRAT Administration Heparin Sodium (Porcine) 3,000 unit 03/19/25 13:33 03/19/25 13:50 Heparin Sod Inj 1000 Unit/Ml Vial 10 Ml INDWELLCAT 04/02/25 13:32 3,000 unit PRN PRN Administration DIALYSIS Norepinephrine/Dextrose 8 mg in 250 mls @ 9.355 mls/hr 03/14/25 19:43 03/20/25 02:00 Levophed In D5w 8mg/250ml IV 04/13/25 19:42 0 mcg/kg/min .Q24H PRN 0 mls/hr PER PROTOCOL Titration Protocol 0.05 MCG/KG/MIN Vasopressin/Sodium Chloride 20 unit in 100 mls @ 9 mls/hr 03/14/25 20:33 03/14/25 21:45 Vasostrict/Ns Ivpb IV 04/13/25 20:32 0 unit/min .Q11H7M PRN 0 mls/hr PER PROTOCOL Titration Protocol 0.03 UNIT/MIN Levofloxacin/Dextrose 500 mg in 100 mls @ 100 mls/hr 03/19/25 16:30 03/19/25 17:02 Levaquin Ivpb IV 03/26/25 16:29 100 mls/hr Q48H MONTSERRAT Administration Propofol 1,000 mg in 100 mls @ 3.453 mls/hr 03/17/25 22:21 03/18/25 11:34 Diprivan Ivpb IV 04/13/25 21:06 0 mcg/kg/min .Q24H PRN 0 mls/hr PER PROTOCOL Titration Protocol 5 MCG/KG/MIN Albumin Human 25 gm in 100 mls @ 100 mls/min 03/19/25 10:38 03/19/25 11:17 Albuminar-25 Ivpb IV 100 mls/min PRN PRN Administration DIALYSIS Dexmedetomidine/Sodium Chloride 400 mcg in 100 mls @ 5.625 mls/hr 03/19/25 13:39 03/20/25 04:00 Precedex Ivpb IV 04/18/25 13:38 0 mcg/kg/hr .[id number] PRN 0 mls/hr Per PROTOCOL Titration Protocol 0.2 MCG/KG/HR Insulin Human Lispro 0 unit 03/14/25 20:45 03/20/25 12:01 Insulin Lispro (Admelog) 1 Unit/0.01 Ml Unit SC 04/13/25 20:44 Not Given Q6HR MONTSERRAT Protocol Levalbuterol HCl 0.31 mg 03/20/25 12:15 Levalbuterol Rt 0.31 Mg/3 Ml Nebu INH 04/19/25 12:14 Q6H MONTSERRAT Midodrine 10 mg 03/19/25 18:19 Midodrine 5 Mg Tablet GT 04/18/25 21:59 TID PRN MAP below 65 Ondansetron HCl 4 mg 03/14/25 17:31 Ondansetron Inj 2 Mg/Ml Inj 2 Ml IV 04/13/25 17:30 Q6H PRN NAUSEA OR VOMITING Protocol Pantoprazole Sodium 40 mg 03/14/25 21:00 03/20/25 08:08 Pantoprazole Inj 40 Mg Vial IVP 04/13/25 20:59 40 mg BID MONTSERRAT Administration Sodium Chloride 3 ml 03/17/25 19:00 03/20/25 06:11 Sodium Cl Rt Marjorie 3% 4 Ml Nebu (Non-Formulary) INH 04/16/25 18:59 3 ml Q6HRRT MONTSERRAT Administration Plan 49-year-old male with past medical history of DM2, hypertension, ESRD (HD ), HFpEF (EF 55% on 2021), and right BKA due to osteomyelitis was admitted to the ICU on 03/14/2025 for acute hypoxic respiratory failure, acute encephalopathy, and shock. CAPONIZER: #Acute cephalopathy, resolved CVS: #Shock, resolved Midodrine 10mg TID as needed #SVT #A-fib Patient again went into SVT last night and was shocked again, but on repeat EKG showed to be in A-fib RVR. Patient again went into SVT and received adenosine 6mg x1 and adenosine 12mg x1 before being cardioverted. Repeat EKG showed what appears to be MAT. [id number] score of 3 points indicating 3.2% risk of stroke per year HAS-BLED score of 5 points Continue amiodarone 200mg BID #Troponinemia Troponins peaked at 7.899 and down trended to 7.04 EKG done overnight that shows some ST depressions in lead II and V3 to V6 Will continue on aspirin, Plavix Echo showed EF of 45 to 50% and septal dyskinesis Cardiology consulted, appreciate recommendations #HFmrEF (EF 45-50% on 2024) Patient does have an echo on file from 2021 that they show EF of 55% Given positive U tox patient could have some dilated cardiomyopathy Echo showed an EF of 45 to 50% Will continue with hemodialysis with fluid removal Daily weights Strict JENN's Respiratory: #Acute hypoxic respiratory failure #Respiratory acidosis #Stenotrophomonas maltophilia pneumonia Intubated on 03/14/2025 Chest x-ray today shows significant improvement from yesterday Sputum grew stenotrophomonas maltophilia Extubated today fortunately 05/14/2025 Continue hypertonic saline inhaled solution and chest physiotherapy Continue levaquin 500mg q48hr [03/17/2025-] Renal: #ESRD (HD on ) #HAGMA, resolved #Lactic acidosis, resolved Continue hemodialysis as scheduled Avoid nephrotoxic agents Renally dose medications Consults nephrology, appreciate recommendations #Hypocalcemia, resolved # Hypokalemia, resolved GI: #Possible GI bleed #Hematemesis Patient's hemoglobin today 8.9 #Transaminitis #Hepatomegaly Possible liver failure due to methamphetamine use? Could be due to shock liver versus hypoxia versus drug-induced Hepatitis panel negative and abdominal ultrasound that shows some hepatomegaly with possible cirrhosis versus hepatocellular disease. Liver enzymes continue to downtrend MSK: #Possible acute vs chronic limb ischemia Abdomen CTA with runoff that showed occlusion of multiple arteries including the left radial, gluteal, and tibial arteries as well as 90% stenosis of the left superficial femoral artery Also showed 80% stenosis of right superficial femoral artery Overnight ICU team spoke with vascular surgeon at [facility] who stated that at this time patient was not a candidate for transfer for revascularization. Patient understands that he may lose multiple digits and even his left lower foot Most likely needs to follow-up with vascular surgeon as an outpatient Nitroglycerin topical ointment Will continue with aspirin and Plavix for now Endo: #DM2 #Hypoglycemia, resolved ISS Hypoglycemia protocol ordered Heme: #Hypercoagulopathy #DIC Got 11 units of cryoprecipitate during hospital stay Continue with aspirin and Plavix for now #Leukocytosis WBC downtrending Most likely infectious given history of pneumonia Sputum cultures grew stenotrophomonas neutrophilia Discontinue Zosyn [03/14/2025-03/17/2025] Continue levaquin 750mg x1 then 500mg q48hr [03/17/2025-03/26/25] #Macrocytic anemia #Thrombocytopenia Hemoglobin 7.8 and platelets 39 today No active signs of bleeding Will continue to monitor ID: #Community-acquired pneumonia Chest x-ray showed pneumonia of right base Discontinue vancomycin MRSA nares negative Blood cultures negative in 48 hours and sputum cultures did grow stenotrophomonas maltophilia Discontinue Zosyn [03/14/2025-03/17/2025] WBC continue downtrending Continue levaquin 500mg q48hr [03/17/2025-03/26/2025] Social: Positive U tox for meth and marijuana Hospital Maintenance: Diet: NPO until passes nurse swallow screen DVT ppx: None given thrombocytopenia GI ppx: Protonix IV IV lines: PIV, CIV ([facility]/R SubC) Cruz: cruz cath Code status: DNR Dispo: Downgrade to medical floors Case disclosed with Attending Dr. Shirley Lee PGY1 Disclaimer: This note was dictated by speech recognition, therefore there may be minor errors in director fundraising due to voice.
[2025-03-20] MEDS: LEVALBUTEROL RT 0.31 MG/3 ML NEBU INH (13:11)
--- NOTE | 2025-03-20 13:34 | PD.NEPHPROG ---
Documentation for date of: 03/20/25 Subjective Subjective Interval history: Pt is seen and examined Pt is extubated Pt is awake and alert Exam Vital Signs Temp Pulse Resp BP Pulse Ox O2 Del Method O2 Flow Rate 96.7 F L 103 H 18 128/83 97 Nasal Cannula 1 03/20/25 13:21 03/20/25 13:21 03/20/25 13:21 03/20/25 13:21 03/20/25 13:21 03/20/25 12:00 03/20/25 13:21 FiO2 30 03/20/25 13:21 Narrative Exam general: awake and aler HEENT: Anicteric sclerae. Normocephalic. Neck: Supple. No JVD. Chest and Lungs: ishmael crackles Cardiac: s1, s2 Abdomen: Soft, nondistended. Extremities: Right BKA. ischemic changes lower extremities Objective Labs 03/20/25 04:33 03/20/25 04:33 Labs: Laboratory Results - last 24 hr 03/16/25 03/20/25 19:34 04:33 WBC 11.5 H D RBC 2.54 L Hgb 7.8 L Hct 25.6 L MCV 101 H MCH 30.7 MCHC 30.5 L RDW Std Deviation 58.5 H Plt Count 39 L D Neut % (Auto) 79 Lymph % (Auto) 5 L [place] % (Auto) 3 Eos % (Auto) 2 Baso % (Auto) 0 Neut # (Auto) 9.0 H Lymph # (Auto) 0.6 L [place] # (Auto) 0.4 Eos # (Auto) 0.2 Baso # (Auto) 0.0 Immature Gran # (Auto) 1.28 H Absolute Nucleated RBC 0.03 H Immature Gran % 11 H Nucleated RBC % 0 Sodium 135 L Potassium 3.4 Chloride 100 Carbon Dioxide 26.4 Anion Gap 9 BUN 31 H Creatinine 3.3 H D Estim Creat Clear Calc 34.4 L eGFR 22 L BUN/Creatinine Ratio 9 L Glucose 179 H Calculated Osmolality 280 Calcium 8.7 Corrected Calcium 9.8 Phosphorus 3.5 Magnesium 2.3 Total Bilirubin 1.2 D AST 45 H ALT 570 H* Alkaline Phosphatase 183 H D Total Protein 4.8 L Albumin 2.6 L D Globulin 2.2 L Albumin/Globulin Ratio 1.2 Misc Test Result Platelets confirmed Crossmatch See Detail ABG Interpretation ABG results: 03/14/25 03/14/25 03/14/25 14:44 16:44 18:53 ABG pH 7.03 L* 7.04 L* 7.10 L* ABG pCO2 43 50 H 46 ABG pO2 86 128 H D 57 L* D ABG HCO3 11 L 13 L 14 L ABG O2 Saturation 91 97 78 L ABG Base Excess -19 L -17 L -15 L VBG pH VBG pCO2 VBG pO2 VBG Base Excess 03/14/25 03/15/25 03/15/25 21:20 05:07 12:28 ABG pH 7.21 L D 7.41 D ABG pCO2 32 D 31 L ABG pO2 116 H D 74 L D ABG HCO3 13 L 20 ABG O2 Saturation 97 95 ABG Base Excess -14 L -4 L VBG pH 7.43 VBG pCO2 34 L VBG pO2 37 VBG Base Excess -1 03/16/25 03/16/25 03/16/25 04:51 11:48 19:30 ABG pH 7.46 H 7.22 L D 7.38 D ABG pCO2 29 L 66 H D 48 D ABG pO2 78 L 79 L 236 H D ABG HCO3 21 27 H 29 H ABG O2 Saturation 96 91 100 H ABG Base Excess -2 -2 3 VBG pH VBG pCO2 VBG pO2 VBG Base Excess 03/17/25 03/18/25 03/19/25 04:53 09:27 04:46 ABG pH 7.38 7.35 ABG pCO2 49 H 48 ABG pO2 78 L D 92 ABG HCO3 29 H 26 ABG O2 Saturation 95 98 ABG Base Excess 3 0 VBG pH 7.34 VBG pCO2 54 D VBG pO2 34 VBG Base Excess 2 Assessment & Plan Assessment and plan (1) CHF (congestive heart failure): Status: Acute (2) Sepsis: Status: Acute (3) End-stage renal disease (ESRD): Status: Inactive Assessment and plan: Pt had HD yesterday again HD today sen during HD UF goal 1 to 2 liters (4) Hyperkalemia: Status: Acute Procedures Arterial Line Size (Gauge): 20
[2025-03-20] MEDS: NITROGLYCERIN OINT 2% 1 INCH PACKET TOP ×2 (14:16→23:53)
[2025-03-20] MEDS: ALBUMIN HUMAN 25% IVPB 25 GM/100 ML BTL IV (15:33)
[2025-03-20] MEDS: HEPARIN SOD INJ 1000 UNIT/ML VIAL 10 ML 3000 UNIT INDWELLCAT (16:21)
--- NOTE | 2025-03-20 16:33 | ESPR_ITS ---
<Statement entered by Keyur Huston MD - 03/24/25 12:10> I reviewed above note and agree with findings and plans. I have also personally examined the patient with medicine team and went over assessment and plan with medical team including corporate communications intern and resident physician. <Statement entered by Minh Smith MD - 03/22/25 09:18> Senior Resident Attestation: I supervised/discussed management plan with corporate communications intern physician Dr. Pacheco, and was involved in the care of this patient. I personally saw and examined the patient and discussed the assessment and plan with the entire medicine team, including my attending. I agree with the assessment and plan as documented. Patient's care was discussed with attending physician, Dr. Huston. Minh Smith MD PGY-2. Documentation for date of: 03/20/25 Subjective Subjective Interval history: Patient is a 49 years old male with PMH of DM2, hypertension, ESRD (HD /), HFpEF (EF 55% on 2021), and right BKA due to osteomyelitis BIBA to the ED due to AMS, was intubated and started on pressors and was admitted to the ICU on 03/14/2025 for management of shock of unknown etiology and was started on IV antibiotics. On 03/17 his sputum culture grew stenotrophomonas maltophilia and antibiotics were changed to levofloxacin. He was extubated and downgraded to telemetry on 03/20/2025 for continuation of care. Patient was seen and examined at the bedside in ICU during HD. He does not have any complains, saturating well on 1L NC. His WBCs are downtrending, will continue with IV levofloxacin. LFTs are downtrending, will continue to monitor. He is followed by airport screener Dr. Villalobos and salad maker Dr. Pleitez. We will resume care and continue current management and monitor patient. Exam Vital Signs Temp Pulse Resp BP Pulse Ox O2 Del Method O2 Flow Rate 96.8 F 103 H 14 112/70 96 Nasal Cannula 1 03/20/25 16:16 03/20/25 16:30 03/20/25 16:16 03/20/25 16:30 03/20/25 16:16 03/20/25 12:00 03/20/25 16:16 FiO2 30 03/20/25 13:21 Narrative Exam GENERAL: A&Ox3 . Awake, Not in acute distress NEURO: no focal neurological deficits noted HEENT: Atraumatic, Normocephalic. mucous membranes moist. Eyes open, symmetrical, & clear HEART: Normal Heart Sounds LUNGS: Clear to auscultation with no wheezing or crackles. ABDOMEN: soft, non-distended, non-tender, bowel sounds heard, no guarding or rebound tenderness SKIN: ISCHEMIC CHANGES NOTED, necrotic changes at the tips of fingers bilaterally in UE and Left LE EXTREMITIES: Right BKA with cyanotic changes at the stump Objective Labs 03/21/25 05:56 03/21/25 05:56 Labs: Laboratory Results - last 24 hr 03/16/25 03/20/25 19:34 04:33 WBC 11.5 H D RBC 2.54 L Hgb 7.8 L Hct 25.6 L MCV 101 H MCH 30.7 MCHC 30.5 L RDW Std Deviation 58.5 H Plt Count 39 L D Neut % (Auto) 79 Lymph % (Auto) 5 L [place] % (Auto) 3 Eos % (Auto) 2 Baso % (Auto) 0 Neut # (Auto) 9.0 H Lymph # (Auto) 0.6 L [place] # (Auto) 0.4 Eos # (Auto) 0.2 Baso # (Auto) 0.0 Immature Gran # (Auto) 1.28 H Absolute Nucleated RBC 0.03 H Immature Gran % 11 H Nucleated RBC % 0 Sodium 135 L Potassium 3.4 Chloride 100 Carbon Dioxide 26.4 Anion Gap 9 BUN 31 H Creatinine 3.3 H D Estim Creat Clear Calc 34.4 L eGFR 22 L BUN/Creatinine Ratio 9 L Glucose 179 H Calculated Osmolality 280 Calcium 8.7 Corrected Calcium 9.8 Phosphorus 3.5 Magnesium 2.3 Total Bilirubin 1.2 D AST 45 H ALT 570 H* Alkaline Phosphatase 183 H D Total Protein 4.8 L Albumin 2.6 L D Globulin 2.2 L Albumin/Globulin Ratio 1.2 Misc Test Result Platelets confirmed Crossmatch See Detail ABG Interpretation ABG results: 03/14/25 03/14/25 03/14/25 14:44 16:44 18:53 ABG pH 7.03 L* 7.04 L* 7.10 L* ABG pCO2 43 50 H 46 ABG pO2 86 128 H D 57 L* D ABG HCO3 11 L 13 L 14 L ABG O2 Saturation 91 97 78 L ABG Base Excess -19 L -17 L -15 L VBG pH VBG pCO2 VBG pO2 VBG Base Excess 03/14/25 03/15/25 03/15/25 21:20 05:07 12:28 ABG pH 7.21 L D 7.41 D ABG pCO2 32 D 31 L ABG pO2 116 H D 74 L D ABG HCO3 13 L 20 ABG O2 Saturation 97 95 ABG Base Excess -14 L -4 L VBG pH 7.43 VBG pCO2 34 L VBG pO2 37 VBG Base Excess -1 03/16/25 03/16/25 03/16/25 04:51 11:48 19:30 ABG pH 7.46 H 7.22 L D 7.38 D ABG pCO2 29 L 66 H D 48 D ABG pO2 78 L 79 L 236 H D ABG HCO3 21 27 H 29 H ABG O2 Saturation 96 91 100 H ABG Base Excess -2 -2 3 VBG pH VBG pCO2 VBG pO2 VBG Base Excess 03/17/25 03/18/25 03/19/25 04:53 09:27 04:46 ABG pH 7.38 7.35 ABG pCO2 49 H 48 ABG pO2 78 L D 92 ABG HCO3 29 H 26 ABG O2 Saturation 95 98 ABG Base Excess 3 0 VBG pH 7.34 VBG pCO2 54 D VBG pO2 34 VBG Base Excess 2 Quality Measures Quality Measures VTE prophylaxis Assessment & Plan Assessment Current Active Medications: Generic Name Dose Route Start Last Admin Trade Name Freq PRN Reason Stop Dose Admin Acetaminophen 650 mg 03/20/25 11:35 Acetaminophen 325 Mg Tablet PO 04/19/25 11:34 Q6HR PRN pain and Fever >100.4 Amiodarone HCl 200 mg 03/19/25 21:00 03/20/25 08:07 Amiodarone Hcl 200 Mg Tablet GT 04/18/25 20:59 200 mg BID MONTSERRAT Administration Aspirin 81 mg 03/16/25 09:00 03/20/25 08:07 Aspirin 81 Mg Chew GT 04/15/25 08:59 81 mg QDAY MONTSERRAT Administration Clopidogrel Bisulfate 75 mg 03/15/25 10:53 03/20/25 08:08 Clopidogrel Bisulfate 75 Mg Tablet GT 04/14/25 10:29 75 mg QDAY MONTSERRAT Administration Dextrose 25 ml 03/14/25 20:38 Dextrose 50%-Water Inj 50 Ml Syringe IV 04/13/25 20:37 Q15MIN PRN BG 50-70 responsive npo pt Dextrose 50 ml 03/14/25 20:38 Dextrose 50%-Water Inj 50 Ml Syringe IV 04/13/25 20:37 Q15MIN PRN BG <50 OR BG <70 & pt unresponsive Glucagon 1 mg 03/14/25 17:36 Glucagon Inj 1 Mg Vial IM Q15MIN PRN BG <70, and no IV access Heparin Sodium (Porcine) 5,000 unit 03/17/25 22:00 03/20/25 14:17 Heparin Sod Inj 5000 Unit/Ml Vial SC 03/31/25 21:59 5,000 unit Q8HR MONTSERRAT Administration Heparin Sodium (Porcine) 3,000 unit 03/19/25 13:33 03/20/25 16:21 Heparin Sod Inj 1000 Unit/Ml Vial 10 Ml INDWELLCAT 04/02/25 13:32 3,000 unit PRN PRN Administration DIALYSIS Norepinephrine/Dextrose 8 mg in 250 mls @ 9.355 mls/hr 03/14/25 19:43 03/20/25 02:00 Levophed In D5w 8mg/250ml IV 04/13/25 19:42 0 mcg/kg/min .Q24H PRN 0 mls/hr PER PROTOCOL Titration Protocol 0.05 MCG/KG/MIN Vasopressin/Sodium Chloride 20 unit in 100 mls @ 9 mls/hr 03/14/25 20:33 03/14/25 21:45 Vasostrict/Ns Ivpb IV 04/13/25 20:32 0 unit/min .Q11H7M PRN 0 mls/hr PER PROTOCOL Titration Protocol 0.03 UNIT/MIN Levofloxacin/Dextrose 500 mg in 100 mls @ 100 mls/hr 03/19/25 16:30 03/19/25 17:02 Levaquin Ivpb IV 03/26/25 16:29 100 mls/hr Q48H MONTSERRAT Administration Propofol 1,000 mg in 100 mls @ 3.453 mls/hr 03/17/25 22:21 03/18/25 11:34 Diprivan Ivpb IV 04/13/25 21:06 0 mcg/kg/min .Q24H PRN 0 mls/hr PER PROTOCOL Titration Protocol 5 MCG/KG/MIN Albumin Human 25 gm in 100 mls @ 100 mls/min 03/19/25 10:38 03/20/25 15:33 Albuminar-25 Ivpb IV 100 mls/min PRN PRN Administration DIALYSIS Dexmedetomidine/Sodium Chloride 400 mcg in 100 mls @ 5.625 mls/hr 03/19/25 13:39 03/20/25 04:00 Precedex Ivpb IV 04/18/25 13:38 0 mcg/kg/hr .[id number] PRN 0 mls/hr Per PROTOCOL Titration Protocol 0.2 MCG/KG/HR Insulin Human Lispro 0 unit 03/14/25 20:45 03/20/25 12:01 Insulin Lispro (Admelog) 1 Unit/0.01 Ml Unit SC 04/13/25 20:44 Not Given Q6HR MONTSERRAT Protocol Levalbuterol HCl 0.31 mg 03/20/25 12:15 03/20/25 13:11 Levalbuterol Rt 0.31 Mg/3 Ml Nebu INH 04/19/25 12:14 0.31 mg Q6HRRT MONTSERRAT Administration Midodrine 10 mg 03/19/25 18:19 Midodrine 5 Mg Tablet GT 04/18/25 21:59 TID PRN MAP below 65 Ondansetron HCl 4 mg 03/14/25 17:31 Ondansetron Inj 2 Mg/Ml Inj 2 Ml IV 04/13/25 17:30 Q6H PRN NAUSEA OR VOMITING Protocol Pantoprazole Sodium 40 mg 03/14/25 21:00 03/20/25 08:08 Pantoprazole Inj 40 Mg Vial IVP 04/13/25 20:59 40 mg BID MONTSERRAT Administration Sodium Chloride 3 ml 03/17/25 19:00 03/20/25 13:11 Sodium Cl Rt Marjorie 3% 4 Ml Nebu (Non-Formulary) INH 04/16/25 18:59 3 ml Q6HRRT MONTSERRAT Administration Plan Patient is a 49 years old male with PMH of DM2, hypertension, ESRD (HD ), HFpEF (EF 55% on 2021), and right BKA due to osteomyelitis BIBA to the ED due to AMS, was intubated and started on pressors and was admitted to the ICU on 03/14/2025 for management of shock of unknown etiology and was started on IV antibiotics. On 03/17 his sputum culture grew stenotrophomonas maltophilia and antibiotics were changed to levofloxacin. He was extubated and downgraded to telemetry on 03/20/2025 for continuation of care. #Acute hypoxic respiratory failure, improved. #Stenotrophomonas maltophilia pneumonia. #Respiratory acidosis, resolved. #Septic shock, resolved. Intubated on 03/14/2025. Follow up Chest x-ray shows significant improvement. Sputum grew stenotrophomonas maltophilia. Extubated on 03/20/2025. Zosyn 03/14/2025-03/17/2025 Vancomycin 03/14/2025 - 03/15/2025. Plan: - Continue hypertonic saline inhaled solution and chest physiotherapy. - Continue levaquin 500mg q48hr 03/17/2025- 03/26/25 - Midodrine 10mg TID as needed. #SVT. #A-fib. Patient again went into SVT last night and was shocked again, but on repeat EKG showed to be in A-fib RVR. Patient again went into SVT and received adenosine 6mg x1 and adenosine 12mg x1 before being cardioverted. Repeat EKG showed what appears to be MAT. [id number] score of 3 points indicating 3.2% risk of stroke per year HAS-BLED score of 5 points Plan: - Continue amiodarone 200mg BID. #Troponinemia. Troponins peaked at 7.899 and down trended to 7.04. EKG done overnight that shows some ST depressions in lead II and V3 to V6. Echo showed EF of 45 to 50% and septal dyskinesis. Cardiology consulted, appreciate recommendations. Plan: - Will continue on aspirin, Plavix. #HFmrEF (EF 45-50% on 2024). Patient does have an echo on file from 2021 that they show EF of 55% Given positive U tox patient could have some dilated cardiomyopathy Echo showed an EF of 45 to 50%. Plan: - Will continue with hemodialysis with fluid removal. - Daily weights. - Strict JENN's. - fluid restriction. #ESRD (HD on ). #HAGMA, resolved. #Lactic acidosis, resolved. Consult nephrology, appreciate recommendations Plan: - Continue hemodialysis as scheduled. - Avoid nephrotoxic agents. - Renally dose medications. #Possible GI bleed. #Hematemesis. #Macrocytic anemia. #Thrombocytopenia. Patient's hemoglobin was downtrending from 11.9 on admission to 7.8 today. PLT 39. Plan: - continue to monitor daily CBC - transfuse if Hgb < 7. #Transaminitis. #Hepatomegaly. Possible liver failure due to methamphetamine use? Could be due to shock liver versus hypoxia versus drug-induced. Hepatitis panel negative and abdominal ultrasound that shows some hepatomegaly with possible cirrhosis versus hepatocellular disease. Plan: - continue monitoring LFTs. #Possible acute vs chronic limb ischemia. #Peripheral Vascular disease, severe Abdomen CTA with runoff that showed occlusion of multiple arteries including the left radial, gluteal, and tibial arteries as well as 90% stenosis of the left superficial femoral artery Also showed 80% stenosis of right superficial femoral artery. Overnight ICU team spoke with vascular surgeon at [facility] who stated that at this time patient was not a candidate for transfer for revascularization. Patient understands that he may lose multiple digits and even his left lower foot. Most likely needs to follow-up with vascular surgeon as an outpatient. Plan: - Nitroglycerin topical ointment. - Will continue with aspirin and Plavix for now. #Hx of DM2. #Hypoglycemia, resolved. Plan: - ISS. - Hypoglycemia protocol ordered. Hospital Maintenance: Diet: NPO until passes nurse swallow screen. DVT ppx: None given thrombocytopenia. GI ppx: Protonix IV. IV lines: PIV, CIV (LIJ/R SubC). Cruz: cruz cath. Code status: DNR. Dispo: Downgraded to medical floor. Assessment and plan discussed with my senior resident Dr. Smith & attending physician Dr. Betzaida Pacheco (PGY-1)- Internal medicine resident
[2025-03-20] MEDS: DEXTROSE 50%-WATER INJ 50 ML SYRINGE 25 ML IV ×2 (18:45→23:30)
--- NOTE | 2025-03-20 19:41 | ESPR_ITS ---
RE: CLEMENTE PERAZA : 1975 DATE OF SERVICE: 03/20/2025 SUBJECTIVE: The patient is a 49-year-old male with multiple medical problems. He is admitted to the hospital with hypoxic respiratory failure, cardiogenic shock, acute myocardial infarction, NSTEMI, troponin elevation, developed atrial fibrillation, requiring medications and several days of intubation, vasopressors, severe peripheral arterial occlusive disease, [id number] amputation of right lower extremity and also had multiple issues, history of previous methamphetamine use, developed acute renal failure with chronic kidney disease, requiring hemodialysis. The patient has been doing a little better today, still in ICU this morning, successfully extubated, tolerated well. His hypotension is resolving. No vasopressors for now. The patient's white count is also coming down gradually. He is extubated now, alert, awake, on oxygen, saturating well on oxygen supplement. He does not complain of any chest pain or shortness of breath at this time. He also had severe vascular problems with severe peripheral arterial disease with gangrenous changes of right fingers with black discoloration, could be due to vasopressor or distal vasospasm. The patient was a chronic smoker as well. He also has developed severe ischemic changes in the left foot as well. There is severe trifurcation disease. CTA showed evidence of severe peripheral arterial occlusive disease involving anteroposterior artery totally occluded the mid segment and distal femoral artery showed 98% stenosis as well. PHYSICAL EXAMINATION: General: Shows alert, awake, and in no acute distress. Vital Signs: Stable. Blood pressure is 120/80, pulse rate is 100, respirations 18, temperature normal, and pulse oximetry 97% on 2 L nasal cannula. HEENT: Head is atraumatic. Neck: Supple. No JVD. Chest: Symmetrical. Lungs: Decreased breath sounds. Heart: S1 and S2 regular, tachycardia. Abdomen: Obese and soft. Extremities: Significant edema of both upper and lower extremities. The right lower extremity has [id number] amputation. There is some black discoloration in the stump. Left lower extremity also showed evidence of gangrene in the toes with cyanosis. Femoral pulses are 2+ on the left side. Genitourinary and Rectal: Not performed. Neurologic: The patient is alert and oriented x3. No focal deficits. LABORATORY DATA: Showed white count is finally normalized so is the leukocytes on admission now is down to 11.5 and hemoglobin is stable at 7.8. Creatinine is elevated at 3.3 and BUN is 31. The patient is undergoing dialysis as well. IMPRESSION: 1. Acute arr-QR-[id number] elevation myocardial infarction. 2. Cardiogenic shock, improved. 3. Hypoxic respiratory failure, improved. 4. Sepsis, improved. 5. Severe ischemic peripheral arterial occlusive disease and extensive peripheral artery disease. 6. Chronic kidney disease, on hemodialysis. 7. History of methamphetamine abuse. 8. Mild to moderate left ventricular dysfunction. 9. Chronic systolic heart failure. RECOMMENDATIONS: We will continue medical management. Monitor hemoglobin closely. Once the patient remains stable either on Saturday or Saturday, we will recommend coronary angiogram possibly from left femoral approach to assess extent of CAD. We will also take angiogram of the left lower extremity to assess if there are any revascularization type lesions. Time spent is 40 minutes spending with the family as well as the patient critical care time. DT: 18:50:59 TT: 19:40:00 Ref: [id number] - TID: [id number]
[2025-03-20] MEDS: HYDROcodone/APAP 5/325 TABLET 1 TAB PO (19:50)
[2025-03-21] VITALS (14 sets, daily range): BP systolic 100–154; BP diastolic 62–86; PULSE 100–120; RESP 11–22; TEMP 35.9–36.4; O2SAT 93–100; BMI 32.3
[2025-03-21] MEDS: LEVALBUTEROL RT 0.31 MG/3 ML NEBU INH ×4 (00:12→19:39)
[2025-03-21] MEDS: HYDROcodone/APAP 5/325 TABLET 1 TAB PO ×3 (02:34→14:56)
[2025-03-21] MEDS: SODIUM CL RT SOL 3% 4 ML NEBU (NON-FORMULARY) 3 ML INH ×2 (06:19→13:35)
[2025-03-21 06:36] LABS: Alanine Aminotransferase 438 U/L (10-49); Albumin, Serum 2.9 gm/dL (3.5-5.0); Albumin/Globulin Ratio 1.3 (1.2-2.2); Alkaline Phosphatase 174 U/L (46-116); Anion Gap 8 (7-16); Aspartate Amino Transferase 38 U/L (0-34); BUN/Creatinine Ratio 8 Ratio (12-20); Bilirubin,Total 1.4 mg/dL (0.3-1.2); Blood Urea Nitrogen 29 mg/dL (9-23); Calcium 8.5 mg/dL (8.3-10.6); Calcium (Corrected) 9.4 mg/dL (8.5-10.1); Carbon Dioxide 26.6 mMol/L (20.0-31.0); Chloride 96 mMol/L (98-107); Creatinine (Component) 3.5 mg/dL (0.6-1.3); Estimated Creatinine Clearance 31.8 mL/min (>60); Globulin 2.3 gm/dL (2.3-3.5); Glucose 114 mg/dL (74-106); Magnesium 2.2 mg/dL (1.6-2.6); Osmolality,Calculated 269 (275-295); Phosphorous 3.4 mg/dL (2.4-5.1); Potassium 3.7 mMol/L (3.4-5.1); Sodium 131 mMol/L (136-145); Total Protein 5.2 gm/dL (5.7-8.2); eGFR 20 See Note
[2025-03-21 06:39] LABS: Basophils # (Auto) 0.1 Thou/mm3 (0.0-0.2); Basophils % (Auto) 0 % (0-2.5); Eosinophils # (Auto) 0.2 Thou/mm3 (0.0-0.5); Eosinophils % (Auto) 1 % (0-10); Hematocrit 25.7 % (41.0-53.0); Immature Granulocytes % (Auto) 5 % (0-0); Immature Granulocytes Auto 0.95 Thou/mm3 (0.00-0.00); Lymphocytes # (Auto) 0.8 Thou/mm3 (1.0-4.8); Lymphocytes % (Auto) 4 % (10-50); Mean Corpuscular HGB Conc 31.9 g/dl (31.0-37.0); Mean Corpuscular Volume 100 fL (80-100); Monocytes % (Auto) 5 % (0-12); Neutrophils # (Auto) 16.1 Thou/mm3 (1.8-7.7); Neutrophils % (Auto) 85 % (37-80); Nucleated Red Blood Cell # 0.03 Thou/mm3 (0.00-0.00); Nucleated Red Blood Cell % 0 /100 WBC (0); RDW Standard Deviation 60.7 fL (35.1-43.9); Red Blood Count 2.56 Miln/mm3 (4.50-5.90); White Blood Count 19.1 Thou/mm3 (3.8-10.6)
[2025-03-21] MEDS: ACETAMINOPHEN 325 MG TABLET 650 MG PO (06:39)
[2025-03-21 06:41] LABS: Hemoglobin 8.2 g/dL (13.5-16.0); Platelet Count 60 Thou/mm3 (140-440); Slide Review Platelets confirmed
--- NOTE | 2025-03-21 07:55 | EKG_ITS ---
[facility] Test Date: 2025-03-21 Pat Name: CLEMENTE PERAZA Department: Room: S265A Gender: Male Bumper Machine Operator: HUGO : 1975 Requested By: Rafael Taveras Order Number: [id number] Reading MD: Rafael Taveras Measurements Intervals [place]ier Rate: 108 P: MA: QRS: 95 QRSD: 122 T: 233 QT: 336 QTc: 451 Interpretive Statements ATRIAL FIBRILLATION WITH RAPID VENTRICULAR RESPONSE BORDERLINE RIGHT AXIS DEVIATION POSSIBLE RIGHT VENTRICULAR CONDUCTION DELAY ST DEVIATION AND MODERATE T-WAVE ABNORMALITY, CONSIDER LATERAL ISCHEMIA ST DEVIATION AND MODERATE T-WAVE ABNORMALITY, CONSIDER INFERIOR ISCHEMIA Compared to ECG 03/18/2025 09:08:57 T-wave abnormality now present Possible ischemia now present Myocardial infarct finding no longer present /store/S0/[id number].pdf
[2025-03-21] MEDS: AMIODARONE HCL 200 MG TABLET GT ×2 (08:10→20:31)
--- NOTE | 2025-03-21 08:11 | PD.RESEVENT ---
Documentation for date of: 03/21/25 Event Note Event Note: Rapid response was called around 7:50 AM due to significant tachycardia above 170s. On arrival of primary team patient's heart rate decreased to 170s. Review of telemetry strips shows possible SVT. On hospital monitor at the time of evaluation patient is in bigeminy. EKG was performed showed sinus tachycardia at [address] segment changes. Morning labs were reviewed. No actions were taken due to resolution of arrhythmia. Plan of care discussed with attending Dr. Huston. Minh Smith MD, PGY 2. Disclaimer: This note was dictated by speech recognition. Minor errors in property management accountant may be present due to voice recognition software.
[2025-03-21] MEDS: ASPIRIN 81 MG CHEW GT (08:24)
[2025-03-21] MEDS: PANTOPRAZOLE INJ 40 MG VIAL IVP ×2 (08:24→20:31)
[2025-03-21] MEDS: CLOPIDOGREL BISULFATE 75 MG TABLET GT (08:24)
[2025-03-21] MEDS: INSULIN LISPRO (AdmeLOG) 1 UNIT/0.01 ML UNIT SC ×2 (12:54→18:09)
--- NOTE | 2025-03-21 12:58 | EKG_ITS ---
[facility] Test Date: 2025-03-21 Pat Name: CLEMENTE PERAZA [facility] Gender: Male Aerial Erector: CLOVER : 1975 Requested By: Rafael Taveras Order Number: [id number] Reading MD: Rafael Taveras Measurements Intervals [place] Rate: 102 P: NM: QRS: 79 QRSD: 122 T: 211 QT: 352 QTc: 459 Interpretive Statements SINUS TACHYCARDIA WITH 2ND DEGREE AV BLOCK, MOBITZ TYPE II POSSIBLE RIGHT VENTRICULAR CONDUCTION DELAY ST DEVIATION AND MODERATE T-WAVE ABNORMALITY, CONSIDER LATERAL ISCHEMIA ST DEVIATION AND MODERATE T-WAVE ABNORMALITY, CONSIDER INFERIOR ISCHEMIA Compared to ECG 03/21/2025 08:00:24 Atrial fibrillation no longer present T-wave abnormality still present Possible ischemia still present /store/S0/[id number].pdf
[2025-03-21] MEDS: METOPROLOL SUCCINATE XL 25 MG TABCR PO (13:13)
--- NOTE | 2025-03-21 13:35 | EVENTNT_ITS ---
Documentation for date of: 03/21/25 Event Note Event Note: Rapid response was called around 1:10 PM due to significant tachycardia above 200s. On arrival of primary team patient's heart rate decreased to 110s. Review of telemetry strips shows possible SVT at HR of 200. On telemetry m onitor at the time of evaluation patient is in bigeminy. EKG was performed showed sinus tachycardia at [address] segment changes. Cardiology recommended to start him on metoprolol succinate 25 mg daily. Plan of care discussed with attending Dr. Huston. Minh Smith MD, PGY 2. Disclaimer: This note was dictated by speech recognition. Minor errors in microsoft bi developer may be present due to voice recognition software.
--- NOTE | 2025-03-21 13:39 | ESPR_ITS ---
<Statement entered by Keyur Huston MD - 03/24/25 14:54> I reviewed above note and agree with findings and plans. I have also personally examined the patient with medicine team and went over assessment and plan with medical team including business development intern and resident physician. <Statement entered by Rafael Taveras MD - 03/22/25 09:46> Patient seen and assessed at bedside, ill appearing. Had two rapid responses today due to SVT with heart rates in the 180-200's. Patient started on metoprolol succ 25 per cardio reccs. Held goals of care discussion with patient and , they will consider hospice. Case discussed with team. Rafael Taveras MD PGY3. Documentation for date of: 03/21/25 Subjective Subjective Interval history: No acute overnight events reported. Patient seen and examined at bedside this morning. This morning patient had 2 rapid responses due to tachycardias. Patient denies shortness of breath chest pain palpitations or abdominal pain. A goals of care discussion was held at the bedside with both the patient and his , addressing the patient's current health status and the complexities of his ongoing medical issues, including multi-organ failure. Given the patient's poor prognosis, including severe peripheral artery disease and significant multi- organ damage, he was provided with the option to continue current management. It was explained that, at this time, it is uncertain whether he would be stable enough for discharge in the near future.The patient expressed emotional distress regarding his prognosis and voiced regret over his past health decisions. Explained to patient while his sputum culture has tested positive for Stenotrophomonas maltophilia, which is sensitive to levofloxacin, his risk of QT prolongation potentially leading to ventricular fibrillation necessitates discontinuation of the antibiotic. Pt has received an adequate course of antibiotics at this time, the decision to discontinue the medication was made after careful consideration of the risk versus benefit, and if Pt's leukocyte count worsen then will consider starting the antibiotics again. Pt agrees with current management. Due to recurrent a-fib with RVR with HR above 180, per cardio recs will add metoprolol succinate. Significant labs include WBC 19.1, hemoglobin 8.2, hematocrit 25.7, BUN 29, creatinine 3.5, T. bili 1.4, AST 38, ALT 438. Will continue to monitor patient for improvement. Exam Vital Signs Temp Pulse Resp BP Pulse Ox O2 Del Method O2 Flow Rate 97.1 F 102 H 19 119/74 100 Nasal Cannula 1 03/21/25 12:00 03/21/25 13:36 03/21/25 13:36 03/21/25 13:13 03/21/25 13:36 03/21/25 12:00 03/20/25 20:00 FiO2 30 03/20/25 13:21 Narrative Exam GENERAL: A&Ox3 . Awake, Not in acute distress NEURO: no focal neurological deficits noted HEENT: Atraumatic, Normocephalic. mucous membranes moist. Eyes open, symmetrical, & clear HEART: Normal Heart Sounds LUNGS: Clear to auscultation with no wheezing or crackles. ABDOMEN: soft, non-distended, non-tender, bowel sounds heard, no guarding or rebound tenderness SKIN: ISCHEMIC CHANGES NOTED, necrotic changes at the tips of fingers bilaterally in UE and Left LE EXTREMITIES: Right BKA with cyanotic and ischemic changes at the stump Objective Labs 03/21/25 05:56 03/21/25 05:56 Labs: Laboratory Results - last 24 hr 03/21/25 05:56 WBC 19.1 H D RBC 2.56 L Hgb 8.2 L Hct 25.7 L MCV 100 MCH 32.0 MCHC 31.9 RDW Std Deviation 60.7 H Plt Count 60 L D Neut % (Auto) 85 H Lymph % (Auto) 4 L [place] % (Auto) 5 Eos % (Auto) 1 Baso % (Auto) 0 Neut # (Auto) 16.1 H Lymph # (Auto) 0.8 L [place] # (Auto) 1.0 H Eos # (Auto) 0.2 Baso # (Auto) 0.1 Immature Gran # (Auto) 0.95 H Absolute Nucleated RBC 0.03 H Immature Gran % 5 H Nucleated RBC % 0 Sodium 131 L Potassium 3.7 Chloride 96 L Carbon Dioxide 26.6 Anion Gap 8 BUN 29 H Creatinine 3.5 H Estim Creat Clear Calc 31.8 L eGFR 20 L BUN/Creatinine Ratio 8 L Glucose 114 H D Calculated Osmolality 269 L Calcium 8.5 Corrected Calcium 9.4 Phosphorus 3.4 Magnesium 2.2 Total Bilirubin 1.4 H AST 38 H ALT 438 H Alkaline Phosphatase 174 H Total Protein 5.2 L Albumin 2.9 L Globulin 2.3 Albumin/Globulin Ratio 1.3 Misc Test Result Platelets confirmed ABG Interpretation ABG results: 03/14/25 03/14/25 03/14/25 14:44 16:44 18:53 ABG pH 7.03 L* 7.04 L* 7.10 L* ABG pCO2 43 50 H 46 ABG pO2 86 128 H D 57 L* D ABG HCO3 11 L 13 L 14 L ABG O2 Saturation 91 97 78 L ABG Base Excess -19 L -17 L -15 L VBG pH VBG pCO2 VBG pO2 VBG Base Excess 03/14/25 03/15/25 03/15/25 21:20 05:07 12:28 ABG pH 7.21 L D 7.41 D ABG pCO2 32 D 31 L ABG pO2 116 H D 74 L D ABG HCO3 13 L 20 ABG O2 Saturation 97 95 ABG Base Excess -14 L -4 L VBG pH 7.43 VBG pCO2 34 L VBG pO2 37 VBG Base Excess -1 03/16/25 03/16/25 03/16/25 04:51 11:48 19:30 ABG pH 7.46 H 7.22 L D 7.38 D ABG pCO2 29 L 66 H D 48 D ABG pO2 78 L 79 L 236 H D ABG HCO3 21 27 H 29 H ABG O2 Saturation 96 91 100 H ABG Base Excess -2 -2 3 VBG pH VBG pCO2 VBG pO2 VBG Base Excess 03/17/25 03/18/25 03/19/25 04:53 09:27 04:46 ABG pH 7.38 7.35 ABG pCO2 49 H 48 ABG pO2 78 L D 92 ABG HCO3 29 H 26 ABG O2 Saturation 95 98 ABG Base Excess 3 0 VBG pH 7.34 VBG pCO2 54 D VBG pO2 34 VBG Base Excess 2 Quality Measures Quality Measures VTE prophylaxis Assessment & Plan Assessment Current Active Medications: Generic Name Dose Route Start Last Admin Trade Name Freq PRN Reason Stop Dose Admin Acetaminophen 650 mg 03/20/25 11:35 03/21/25 06:39 Acetaminophen 325 Mg Tablet PO 04/19/25 11:34 650 mg Q6HR PRN Administration pain and Fever >100.4 Protocol Hydrocodone Bitart/Acetaminophen 1 tab 03/20/25 19:42 03/21/25 08:24 Hydrocodone/Apap 5/325 Tablet PO 03/25/25 19:41 1 tab Q6HR PRN Administration Pain 4-10 Amiodarone HCl 200 mg 03/19/25 21:00 03/21/25 08:10 Amiodarone Hcl 200 Mg Tablet GT 04/18/25 20:59 200 mg BID MONTSERRAT Administration Aspirin 81 mg 03/16/25 09:00 03/21/25 08:24 Aspirin 81 Mg Chew GT 04/15/25 08:59 81 mg QDAY MONTSERRAT Administration Clopidogrel Bisulfate 75 mg 03/15/25 10:53 03/21/25 08:24 Clopidogrel Bisulfate 75 Mg Tablet GT 04/14/25 10:29 75 mg QDAY MONTSERRAT Administration Dextrose 25 ml 03/14/25 20:38 03/20/25 23:30 Dextrose 50%-Water Inj 50 Ml Syringe IV 04/13/25 20:37 25 ml Q15MIN PRN Administration BG 50-70 responsive npo pt Dextrose 50 ml 03/14/25 20:38 Dextrose 50%-Water Inj 50 Ml Syringe IV 04/13/25 20:37 Q15MIN PRN BG <50 OR BG <70 & pt unresponsive Glucagon 1 mg 03/14/25 17:36 Glucagon Inj 1 Mg Vial IM Q15MIN PRN BG <70, and no IV access Heparin Sodium (Porcine) 3,000 unit 03/19/25 13:33 03/20/25 16:21 Heparin Sod Inj 1000 Unit/Ml Vial 10 Ml INDWELLCAT 04/02/25 13:32 3,000 unit PRN PRN Administration DIALYSIS Albumin Human 25 gm in 100 mls @ 100 mls/min 03/19/25 10:38 03/20/25 15:33 Albuminar-25 Ivpb IV 100 mls/min PRN PRN Administration DIALYSIS Insulin Human Lispro 0 unit 03/14/25 20:45 03/21/25 12:54 Insulin Lispro (Admelog) 1 Unit/0.01 Ml Unit SC 04/13/25 20:44 1 unit Q6HR MONTSERRAT Administration Protocol Levalbuterol HCl 0.31 mg 03/20/25 12:15 03/21/25 13:35 Levalbuterol Rt 0.31 Mg/3 Ml Nebu INH 04/19/25 12:14 0.31 mg Q6HRRT MONTSERRAT Administration Metoprolol Succinate 25 mg 03/21/25 13:15 03/21/25 13:13 Metoprolol Succinate Xl 25 Mg Tabcr PO 04/20/25 13:14 25 mg QDAY MONTSERRAT Administration Midodrine 10 mg 03/19/25 18:19 Midodrine 5 Mg Tablet GT 04/18/25 21:59 TID PRN MAP below 65 Ondansetron HCl 4 mg 03/14/25 17:31 Ondansetron Inj 2 Mg/Ml Inj 2 Ml IV 04/13/25 17:30 Q6H PRN NAUSEA OR VOMITING Protocol Pantoprazole Sodium 40 mg 03/14/25 21:00 03/21/25 08:24 Pantoprazole Inj 40 Mg Vial IVP 04/13/25 20:59 40 mg BID MONTSERRAT Administration Sodium Chloride 3 ml 03/17/25 19:00 03/21/25 13:35 Sodium Cl Rt Marjorie 3% 4 Ml Nebu (Non-Formulary) INH 04/16/25 18:59 3 ml Q6HRRT MONTSERRAT Administration Plan Mr. Mcclain is a 49 years old male with PMH of DM2, hypertension, ESRD (HD ), HFpEF (EF 55% on 2021), and right BKA due to osteomyelitis BIBA to the ED due to AMS, was intubated and started on pressors and was admitted to the ICU on 03/14/2025 for management of shock of unknown etiology and was started on IV antibiotics. On 03/17 his sputum culture grew stenotrophomonas maltophilia and antibiotics were changed to levofloxacin. He was extubated and downgraded to telemetry on 03/20/2025 for continuation of care. #A-fib with RVR Patient again went into SVT last night and was shocked again, but on repeat EKG showed to be in A-fib RVR. Patient again went into SVT and received adenosine 6mg x1 and adenosine 12mg x1 before being cardioverted. Repeat EKG showed what appears to be MAT. [id number] score of 3 points indicating 3.2% risk of stroke per year HAS-BLED score of 5 points Plan: - Continue amiodarone 200mg BID -Metoprolol succinate 25mg daily -Keep Potassium >4 and Mg >2 -[employer] Specialist Dr. Villalobos following the case, and appreciate his recommendations #Possible acute vs chronic limb ischemia. #Peripheral Vascular disease, severe Abdomen CTA with runoff that showed occlusion of multiple arteries including the left radial, gluteal, and tibial arteries as well as 90% stenosis of the left superficial femoral artery Also showed 80% stenosis of right superficial femoral artery. Overnight ICU team spoke with vascular surgeon at [facility] who stated that at this time patient was not a candidate for transfer for revascularization. Patient understands that he may lose multiple digits and even his left lower foot. Most likely needs to follow-up with vascular surgeon as an outpatient. Plan: - Nitroglycerin topical ointment. - Will continue with aspirin and Plavix for now -Pt will need outpatient follow up with vascular surgeon #Acute hypoxic respiratory failure, improved. #Stenotrophomonas maltophilia pneumonia. #Respiratory acidosis, resolved. #Septic shock, resolved. Intubated on 03/14/2025. Follow up Chest x-ray shows significant improvement. Sputum grew stenotrophomonas maltophilia. Extubated on 03/20/2025. Zosyn 03/14/2025-03/17/2025 Vancomycin 03/14/2025 - 03/15/2025. Plan: - Continue hypertonic saline inhaled solution and chest physiotherapy. - Continue levaquin 500mg q48hr 03/17/2025- 03/21 -Discontinued levaquin due to increased risk of QT prolonging which can cause Vfib. - Midodrine 10mg TID as needed. #Troponinemia - resolved Troponins peaked at 7.899 and down trended to 7.04. EKG done overnight that shows some ST depressions in lead II and V3 to V6. Echo showed EF of 45 to 50% and septal dyskinesis. Cardiology consulted, appreciate recommendations. Plan: - Will continue on aspirin, Plavix. #HFrEF (EF 45-50% on 2024). -Given positive U tox for Opioids, amphetamines, marijuana -Echo done 03/16: LV appears normal with EF 45-50%. Septal dyskinesis is seen. RV appears normal with RVSP 50 mmHg. Mildly dilated LA & RA Mild mitral regurgitation Mild-Moderate TR Plan: - Will continue with hemodialysis with fluid removal. - Daily weights. - Strict JENN's. - fluid restriction. #ESRD (HD on ). #HAGMA, resolved. #Lactic acidosis, resolved. Consult nephrology, appreciate recommendations Plan: - Continue hemodialysis as scheduled. -Principal Technologist Dr. Pleitez following, appreciate recommendations - Avoid nephrotoxic agents. - Renally dose medications. #Acute blood loss Anemia #Hematemesis. #Macrocytic anemia. #Thrombocytopenia. Patient's hemoglobin was downtrending from 11.9 on admission to 7.8 today. PLT 39. Plan: - continue to monitor daily CBC - transfuse if Hgb < 7. #Transaminitis. #Hyperbilirubinemia #Hepatomegaly. Possible liver failure due to methamphetamine use? Could be due to shock liver versus hypoxia versus drug-induced. Hepatitis panel negative and abdominal ultrasound that shows some hepatomegaly with possible cirrhosis versus hepatocellular disease. Plan: - continue monitoring daily labs #Hx of DM2. #Hypoglycemia, resolved. Plan: - ISS. - Hypoglycemia protocol ordered. Hospital Maintenance: Diet: renal diet DVT ppx: None given thrombocytopenia. GI ppx: Protonix IV. IV lines: PIV, CIV (LIJ/R SubC). Cruz: cruz cath. Code status: DNR. Dispo: Downgraded to medical floor. Assessment and plan discussed with my senior resident Dr. Taveras & attending physician Dr. Betzaida Pacheco (PGY-1)- Internal medicine resident
[2025-03-21] MEDS: POTASSIUM CHLORIDE 10% 20 MEQ/15 ML UDC GT (19:31)
--- NOTE | 2025-03-21 19:33 | EKG_ITS ---
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pdf
[2025-03-21] MEDS: HYDROmorphone INJ 2 MG/ML VIAL 0.5 MG IVP (19:56)
--- NOTE | 2025-03-21 22:58 | ESPR_ITS ---
RE: BALJINDERTCLEMENTE : 1975 DATE OF SERVICE: 03/21/2025 SUBJECTIVE: The patient is a 49-year-old male with a history of multiple medical problems, history of systolic heart failure, congestive heart failure, chronic history of methamphetamine use, chronic kidney disease, came to the hospital with cardiogenic shock, hypotension, multifactorial sepsis, acute myocardial infarction with ST depressions, no ST elevation. He was able to be extubated yesterday and transferred to telemetry, having atrial fibrillation, rapid rate in the morning hours, rapid response . The patient has been on amiodarone. He has also been started on metoprolol today. Heart rate goes fast at times, but mostly average controlled well. He does not complain of any chest pain; however, he is having some shortness of breath. He has some gangrenous changes in the right upper extremity fingers due to vasopressors and possibly distal vessel spasm. Both lower extremities also show vascular disease with gangrenous changes in the left foot. CTA showed severe trifurcation disease on the left side. Right lower extremity has a [id number] amputation already. Femoral artery disease also detected. The patient clearly had acute myocardial infarction on admission with troponin significant elevations and marked ST depression suggestive of multivessel CAD. Clinically, he is feeling a little better, but still has a lot of problems, especially with the right hand. He does not complain of any chest pain, angina. Oxygen saturation is excellent. OBJECTIVE: Vital Signs: Blood pressure 136/86, pulse rate is 105, respirations 18, temperature normal. HEENT: Head is atraumatic. Neck: Supple. No JVD. Lungs: Decreased heart rate. Heart: S1, S2 irregular, atrial fibrillation. Abdomen: Thin and soft. Extremities: Right hand still shows a lot of gangrenous changes of all the digits with black discoloration of the nails as well as definite gangrenous changes are seen. Right lower extremity, the stump showed evidence of black eschar. The left lower extremity showed gangrenous changes in the toes. Distal pulses are absent. Femoral pulses are 2+ on both sides. LABORATORY DATA: Reviewed, showed his troponin has come down to 1.38, but is still elevated. White count is still elevated at 19.1, hemoglobin 8.2. His chemistry panel mostly showed evidence of elevated creatinine of 3.5, BUN 29 and LFTs are abnormal, though improving. ALT is 438 and alkaline phosphatase 178, magnesium 2.2, blood glucose 114. IMPRESSION AND ASSESSMENT: 1. Status post acute non-ST segment elevation myocardial infarction. 2. Atrial fibrillation, intermittent rapid rates. 3. Hypotension, resolved. 4. Chronic kidney disease, now on hemodialysis. 5. Severe peripheral arterial occlusive disease, gangrenous changes left lower extremity, right lower extremity [id number] amputation. 6. Peripheral vascular spasm causing gangrenous changes of the right digits. RECOMMENDATIONS: The patient will be continued on present medications. He is still not stable to have angiogram. White count is still elevated and possibly plan on doing coronary angiogram and assess coronary artery status and also do lower extremity unilateral angiogram of the left lower extremity at least at the same time to assess if there is any revascularization that can be performed. Right upper extremity also has problems with digits, might consider doing angiogram for that as well at the same time. As for the AFib is concerned, rate control with metoprolol will be started, 25 mg twice daily. The patient is already continuing on amiodarone. DT: 22:16:13 TT: 22:37:00 Ref: [id number] - TID: [id number]
[2025-03-22] VITALS (14 sets, daily range): BP systolic 91–115; BP diastolic 56–79; PULSE 87–100; RESP 12–99; TEMP 36.2–36.3; O2SAT 92–100; BMI 32.3; BMI 12.0
[2025-03-22] MEDS: HYDROmorphone INJ 2 MG/ML VIAL 0.5 MG IVP ×6 (05:24→22:38)
[2025-03-22 05:58] LABS: Basophils % (Auto) 0 % (0-2.5); Eosinophils # (Auto) 0.2 Thou/mm3 (0.0-0.5); Eosinophils % (Auto) 1 % (0-10); Hematocrit 25.8 % (41.0-53.0); Immature Granulocytes % (Auto) 4 % (0-0); Immature Granulocytes Auto 0.67 Thou/mm3 (0.00-0.00); Lymphocytes # (Auto) 0.8 Thou/mm3 (1.0-4.8); Lymphocytes % (Auto) 4 % (10-50); Mean Corpuscular Hemoglobin 31.5 pg (25.0-35.0); Mean Corpuscular Volume 102 fL (80-100); Monocytes % (Auto) 5 % (0-12); Neutrophils # (Auto) 16.6 Thou/mm3 (1.8-7.7); Neutrophils % (Auto) 87 % (37-80); Nucleated Red Blood Cell % 0 /100 WBC (0); RDW Standard Deviation 65.8 fL (35.1-43.9); Red Blood Count 2.54 Miln/mm3 (4.50-5.90); White Blood Count 19.2 Thou/mm3 (3.8-10.6)
[2025-03-22 05:59] LABS: Platelet Count 73 Thou/mm3 (140-440)
[2025-03-22 06:00] LABS: Slide Review Platelets confirmed
[2025-03-22 06:10] LABS: Alanine Aminotransferase 345 U/L (10-49); Albumin, Serum 2.9 gm/dL (3.5-5.0); Albumin/Globulin Ratio 1.2 (1.2-2.2); Alkaline Phosphatase 174 U/L (46-116); Anion Gap 9 (7-16); Aspartate Amino Transferase 29 U/L (0-34); BUN/Creatinine Ratio 10 Ratio (12-20); Bilirubin,Total 1.1 mg/dL (0.3-1.2); Blood Urea Nitrogen 46 mg/dL (9-23); Calcium 7.8 mg/dL (8.3-10.6); Calcium (Corrected) 8.7 mg/dL (8.5-10.1); Chloride 98 mMol/L (98-107); Creatinine (Component) 4.8 mg/dL (0.6-1.3); Estimated Creatinine Clearance 23.2 mL/min (>60); Globulin 2.4 gm/dL (2.3-3.5); Glucose 113 mg/dL (74-106); Magnesium 2.2 mg/dL (1.6-2.6); Osmolality,Calculated 277 (275-295); Phosphorous 4.9 mg/dL (2.4-5.1); Potassium 4.5 mMol/L (3.4-5.1); Sodium 132 mMol/L (136-145); Total Protein 5.3 gm/dL (5.7-8.2); eGFR 14 See Note
[2025-03-22] MEDS: SODIUM CL RT SOL 3% 4 ML NEBU (NON-FORMULARY) 3 ML INH ×3 (08:40→19:27)
[2025-03-22] MEDS: AMIODARONE HCL 200 MG TABLET GT ×2 (08:40→20:07)
[2025-03-22] MEDS: METOPROLOL SUCCINATE XL 25 MG TABCR PO ×2 (08:40→20:06)
[2025-03-22] MEDS: ASPIRIN 81 MG CHEW GT (08:40)
[2025-03-22] MEDS: CLOPIDOGREL BISULFATE 75 MG TABLET GT (08:40)
[2025-03-22] MEDS: LEVALBUTEROL RT 0.31 MG/3 ML NEBU INH ×3 (08:40→19:27)
[2025-03-22] MEDS: PANTOPRAZOLE INJ 40 MG VIAL IVP ×2 (08:41→20:09)
--- NOTE | 2025-03-22 09:08 | PC.SS ---
SS follow up note; SS contacted patients , Sophia in regards to discharge plan. She reports at the time she does not know the discharge plan, SS inquired about SNF, however Sophia reported that she would need to discuss it with the patient and would then contact SS in regards to discharge plan. SS will stand by for further needs.
--- NOTE | 2025-03-22 10:27 | XR_ITS ---
Examination: Duplex scan of the upper extremity, unilateral right Date and time of exam: March 14, 2025 at 1238 hours INDICATIONS: Right arm swelling and pain beginning 4 days ago Technique: Duplex scan of the extremity veins using B-mode/grayscale imaging and Doppler spectral analysis and color flow Attention is directed to internal echogenicity, compression and augmentation involving these veins, color flow assessment, spectral analysis Findings: Major deep venous structures in the extremity demonstrate normal course and caliber. There is no evidence of deep vein thrombosis. Normal color flow and spectral analysis Impression: Negative for DVT..
--- NOTE | 2025-03-22 12:05 | PC.SS ---
SS follow up note; Downgrade from ICU, on HD, having SVTs. Pending discharge plan.
--- NOTE | 2025-03-22 14:45 | ESPR_ITS ---
<Statement entered by Keyur Huston MD - 03/26/25 08:12> I reviewed above note and agree with findings and plans. I have also personally examined the patient with medicine team and went over assessment and plan with medical team including research intern and resident physician. <Statement entered by Rafael Taveras MD - 03/23/25 09:43> Patient seen and assessed at bedside. Patient made aware of poor prognosis and discussed hospice. Patient is interested in hospice. Patient started on Vanc due to GPC bacteremia. Case discussed with team. Rafael Taveras MD PGY3 Documentation for date of: 03/22/25 Subjective Subjective Interval history: Patient is seen and examined at bedside Complaining of pain in the fingers of upper extremity. No acute overnight events Vitals are stable. On physical examination, right upper extremity appears to be swollen for which venous Doppler is done and is negative for DVT Bilateral radial pulses are felt. Left dorsalis pedis is feeble, soft. Labs showed WBC 19.2, Hb 8, platelets 73, sodium 132, BUN 46, creatinine 4.8, ALT is downtrending Dr. Jarrell is consulted in view of necrotic digits of both upper and lower extremity Discussed about goals of care with the patient and patient wants to go on hospice Exam Vital Signs Temp Pulse Resp BP Pulse Ox O2 Del Method O2 Flow Rate 97.3 F 97 18 99/56 L 100 Nasal Cannula 3 03/22/25 12:00 03/22/25 12:41 03/22/25 12:41 03/22/25 12:00 03/22/25 12:41 03/22/25 12:00 03/22/25 12:41 FiO2 30 03/20/25 13:21 Narrative Exam General: Awake. Appears sick looking HEENT: Normocephalic, atraumatic, mucous membranes moist. Heart: Regular rate and rhythm, no murmurs. Lungs: Clear to auscultation with no wheezing or crackles. Abdomen: Soft, nondistended, nontender, positive bowel sounds. ?No guarding or rebound tenderness. Neurologic: Alert and oriented x3, no gross neurological deficit, and patient able to move all 4 extremities. Extremities: Right BKA with mild stump necrosis. Rest of the 3 upper extremities found to have necrotic digits Skin: No rash or ecchymoses. Objective Labs 03/22/25 05:08 03/22/25 05:08 Labs: Laboratory Results - last 24 hr 03/22/25 05:08 WBC 19.2 H RBC 2.54 L Hgb 8.0 L Hct 25.8 L MCV 102 H MCH 31.5 MCHC 31.0 RDW Std Deviation 65.8 H Plt Count 73 L D Neut % (Auto) 87 H Lymph % (Auto) 4 L [place] % (Auto) 5 Eos % (Auto) 1 Baso % (Auto) 0 Neut # (Auto) 16.6 H Lymph # (Auto) 0.8 L [place] # (Auto) 1.0 H Eos # (Auto) 0.2 Baso # (Auto) 0.0 Immature Gran # (Auto) 0.67 H Absolute Nucleated RBC 0.00 Immature Gran % 4 H Nucleated RBC % 0 Sodium 132 L Potassium 4.5 D Chloride 98 Carbon Dioxide 25.0 Anion Gap 9 BUN 46 H Creatinine 4.8 H* D Estim Creat Clear Calc 23.2 L eGFR 14 L* BUN/Creatinine Ratio 10 L Glucose 113 H Calculated Osmolality 277 Calcium 7.8 L Corrected Calcium 8.7 Phosphorus 4.9 Magnesium 2.2 Total Bilirubin 1.1 AST 29 ALT 345 H Alkaline Phosphatase 174 H Total Protein 5.3 L Albumin 2.9 L Globulin 2.4 Albumin/Globulin Ratio 1.2 Misc Test Result Platelets confirmed ABG Interpretation ABG results: 03/14/25 03/14/25 03/14/25 14:44 16:44 18:53 ABG pH 7.03 L* 7.04 L* 7.10 L* ABG pCO2 43 50 H 46 ABG pO2 86 128 H D 57 L* D ABG HCO3 11 L 13 L 14 L ABG O2 Saturation 91 97 78 L ABG Base Excess -19 L -17 L -15 L VBG pH VBG pCO2 VBG pO2 VBG Base Excess 03/14/25 03/15/25 03/15/25 21:20 05:07 12:28 ABG pH 7.21 L D 7.41 D ABG pCO2 32 D 31 L ABG pO2 116 H D 74 L D ABG HCO3 13 L 20 ABG O2 Saturation 97 95 ABG Base Excess -14 L -4 L VBG pH 7.43 VBG pCO2 34 L VBG pO2 37 VBG Base Excess -1 03/16/25 03/16/25 03/16/25 04:51 11:48 19:30 ABG pH 7.46 H 7.22 L D 7.38 D ABG pCO2 29 L 66 H D 48 D ABG pO2 78 L 79 L 236 H D ABG HCO3 21 27 H 29 H ABG O2 Saturation 96 91 100 H ABG Base Excess -2 -2 3 VBG pH VBG pCO2 VBG pO2 VBG Base Excess 03/17/25 03/18/25 03/19/25 04:53 09:27 04:46 ABG pH 7.38 7.35 ABG pCO2 49 H 48 ABG pO2 78 L D 92 ABG HCO3 29 H 26 ABG O2 Saturation 95 98 ABG Base Excess 3 0 VBG pH 7.34 VBG pCO2 54 D VBG pO2 34 VBG Base Excess 2 Quality Measures Quality Measures VTE prophylaxis Assessment & Plan Assessment Current Active Medications: Generic Name Dose Route Start Last Admin Trade Name Freq PRN Reason Stop Dose Admin Acetaminophen 650 mg 03/20/25 11:35 03/21/25 06:39 Acetaminophen 325 Mg Tablet PO 04/19/25 11:34 650 mg Q6HR PRN Administration pain and Fever >100.4 Protocol Hydrocodone Bitart/Acetaminophen 1 tab 03/22/25 08:19 Hydrocodone/Apap 5/325 Tablet PO 03/25/25 19:41 Q6HR PRN Pain 4-6 Amiodarone HCl 200 mg 03/19/25 21:00 03/22/25 08:40 Amiodarone Hcl 200 Mg Tablet GT 04/18/25 20:59 200 mg BID MONTSERRAT Administration Aspirin 81 mg 03/16/25 09:00 03/22/25 08:40 Aspirin 81 Mg Chew GT 04/15/25 08:59 81 mg QDAY MONTSERRAT Administration Clopidogrel Bisulfate 75 mg 03/15/25 10:53 03/22/25 08:40 Clopidogrel Bisulfate 75 Mg Tablet GT 04/14/25 10:29 75 mg QDAY MONTSERRAT Administration Dextrose 25 ml 03/14/25 20:38 03/20/25 23:30 Dextrose 50%-Water Inj 50 Ml Syringe IV 04/13/25 20:37 25 ml Q15MIN PRN Administration BG 50-70 responsive npo pt Dextrose 50 ml 03/14/25 20:38 Dextrose 50%-Water Inj 50 Ml Syringe IV 04/13/25 20:37 Q15MIN PRN BG <50 OR BG <70 & pt unresponsive Glucagon 1 mg 03/14/25 17:36 Glucagon Inj 1 Mg Vial IM Q15MIN PRN BG <70, and no IV access Heparin Sodium (Porcine) 3,000 unit 03/19/25 13:33 03/20/25 16:21 Heparin Sod Inj 1000 Unit/Ml Vial 10 Ml INDWELLCAT 04/02/25 13:32 3,000 unit PRN PRN Administration DIALYSIS Hydromorphone HCl 0.5 mg 03/22/25 08:20 03/22/25 09:53 Hydromorphone Inj 2 Mg/Ml Vial IVP 03/26/25 19:32 0.5 mg Q4HR PRN Administration SEVERE PAIN 7-10 Albumin Human 25 gm in 100 mls @ 100 mls/min 03/19/25 10:38 03/20/25 15:33 Albuminar-25 Ivpb IV 100 mls/min PRN PRN Administration DIALYSIS Insulin Human Lispro 0 unit 03/22/25 11:30 03/22/25 12:03 Insulin Lispro (Admelog) 1 Unit/0.01 Ml Unit SC 04/21/25 11:29 Not Given ACHS MONTSERRAT Protocol Levalbuterol HCl 0.31 mg 03/20/25 12:15 03/22/25 12:38 Levalbuterol Rt 0.31 Mg/3 Ml Nebu INH 04/19/25 12:14 0.31 mg Q6HRRT MONTSERART Administration Metoprolol Succinate 25 mg 03/22/25 09:00 03/22/25 08:40 Metoprolol Succinate Xl 25 Mg Tabcr PO 04/21/25 08:59 25 mg BID MONTSERRAT Administration Midodrine 10 mg 03/19/25 18:19 Midodrine 5 Mg Tablet GT 04/18/25 21:59 TID PRN MAP below 65 Ondansetron HCl 4 mg 03/14/25 17:31 Ondansetron Inj 2 Mg/Ml Inj 2 Ml IV 04/13/25 17:30 Q6H PRN NAUSEA OR VOMITING Protocol Pantoprazole Sodium 40 mg 03/14/25 21:00 03/22/25 08:41 Pantoprazole Inj 40 Mg Vial IVP 04/13/25 20:59 40 mg BID MONTSERRAT Administration Sodium Chloride 3 ml 03/17/25 19:00 03/22/25 12:38 Sodium Cl Rt Marjorie 3% 4 Ml Nebu (Non-Formulary) INH 04/16/25 18:59 3 ml Q6HRRT MONTSERRAT Administration Plan Mr. Mcclain is a 49 years old male with PMH of DM2, hypertension, ESRD (HD /), HFpEF (EF 55% on 2021), and right BKA due to osteomyelitis BIBA to the ED due to AMS, was intubated and started on pressors and was admitted to the ICU on 03/14/2025 for management of shock of unknown etiology and was started on IV antibiotics. On 03/17 his sputum culture grew stenotrophomonas maltophilia and antibiotics were changed to levofloxacin. He was extubated and downgraded to telemetry on 03/20/2025 for continuation of care. # GPC bacteremia # CLABSI - Patient tested for gram-positive cocci on 03/21/2025 on preliminary blood cultures Plan - Repeat blood cultures were sent on 03/22/2025 - Repeat echocardiogram was ordered to rule out infective endocarditis - Consulted Dr. Pleitez and he recommended discontinuation of dialysis catheter tomorrow once HD session is done - Will talk to IR tomorrow #A-fib with RVR --> CVR [id number] score of 3 points indicating 3.2% risk of stroke per year HAS-BLED score of 5 points Plan: -Continue amiodarone 200mg BID -Metoprolol succinate 25mg daily BID -Anti-coagulation is held now in view of more bleeding risk -Keep Potassium >4 and Mg >2 -Radiotelephone Technical Operator Dr. Villalobos following the case, and appreciate his recommendations #Acute on chronic limb ischemia. #Peripheral Vascular disease, severe Abdomen CTA with runoff that showed occlusion of multiple arteries including the left radial, gluteal, and tibial arteries as well as 90% stenosis of the left superficial femoral artery Also showed 80% stenosis of right superficial femoral artery. ICU team spoke with vascular surgeon at [facility] who stated that at this time patient was not a candidate for transfer for revascularization. Patient understands that he may lose multiple digits and even his left lower foot. Most likely needs to follow-up with vascular surgeon as an outpatient. Plan: - Nitroglycerin topical ointment. - Will continue with aspirin and Plavix for now - Pt will need outpatient follow up with vascular surgeon #Acute hypoxic respiratory failure, improved. #Stenotrophomonas maltophilia pneumonia. #Respiratory acidosis, resolved. #Septic shock, resolved. Intubated on 03/14/2025. Follow up Chest x-ray shows significant improvement. Sputum grew stenotrophomonas maltophilia. Extubated on 03/20/2025. Zosyn 03/14/2025-03/17/2025 Vancomycin 03/14/2025 - 03/15/2025. Plan: - Continue hypertonic saline inhaled solution and chest physiotherapy. - Discontinued levaquin due to increased risk of QT prolonging which can cause Vfib. - Midodrine 10mg TID as needed. #Troponinemia - resolved Troponins peaked at 7.899 and down trended to 7.04. EKG done overnight that shows some ST depressions in lead II and V3 to V6. Echo showed EF of 45 to 50% and septal dyskinesis. Cardiology consulted, appreciate recommendations. Plan: - Will continue on aspirin, Plavix. #HFrEF (EF 45-50% on 2024). -Given positive U tox for Opioids, amphetamines, marijuana -Echo done 03/16: LV appears normal with EF 45-50%. Septal dyskinesis is seen. RV appears normal with RVSP 50 mmHg. Mildly dilated LA & RA Mild mitral regurgitation Mild-Moderate TR Plan: - Will continue with hemodialysis with fluid removal. - Dr. Villalobos was consulted and following the patient, plan to do cardiac cath on 03/23/2025 but held the procedure in view of GPC bacteremia - Daily weights. - Strict JENN's. - fluid restriction. #ESRD (HD on ). #HAGMA, resolved. #Lactic acidosis, resolved. Consult nephrology, appreciate recommendations Plan: - Continue hemodialysis as scheduled. - [employer] Gl[employer] Dr. Pleitez following, appreciate recommendations - Avoid nephrotoxic agents. - Renally dose medications. #Acute blood loss Anemia #Hematemesis. #Macrocytic anemia. #Thrombocytopenia. Patient's hemoglobin was downtrending from 11.9 on admission to 7.8 today. PLT 39. Plan: - continue to monitor daily CBC - transfuse if Hgb < 7. #Transaminitis, resolving #Hyperbilirubinemia, resolved #Hepatomegaly. Possible liver failure in the setting of acute illness Hepatitis panel negative and abdominal ultrasound that shows some hepatomegaly with possible cirrhosis versus hepatocellular disease. Plan: - continue monitoring daily labs #Hx of DM2. #Hypoglycemia, resolved. Plan: - ISS. - Hypoglycemia protocol ordered. Hospital Maintenance: Diet: renal diet DVT ppx: Held in view of possible GI bleed GI ppx: Protonix IV. IV lines: PIV, CIV (LIJ/R SubC). Cruz: cruz cath. Code status: DNR. Dispo: Tele Patient plan of care was discussed with the attending physician, Dr. Huston and senior resident Dr. Nitin Bach, PGY1
--- NOTE | 2025-03-22 14:46 | ESPR_ITS ---
<Statement entered by Yanci Villalobos MD - 03/24/25 18:08> I personally examined the patient with resident physician Dr. Moon Tsai, PGY 2 patient has multiple problems as described as gram-positive cocci and leukocytosis no need for angiogram at this time possibly contraindicated will get a cardiac echo again to assess if there is any vegetations. Reviewed all the findings essential components and agree with the treatment plan recommendation as documented by resident physician will continue to monitor patient closely with primary team Documentation for date of: 03/22/25 Subjective Subjective Interval history: No acute events overnight.?Patient seen and examined at bedside this AM.?Patient continues to complain of severe bilateral hand pain. He reports oral pain medications and nitroglycerin have provided no relief. IV Dilaudid has provided some pain relief but not long lasting. Labs and vitals were reviewed.?Patient has persistent leukocytosis today 19.2. Patient also found to have GPC positive blood cultures in 2/ from 03/21/2025. Primary team has restarted antibiotics with vancomycin. Review of systems otherwise negative except what is mentioned above. Exam Vital Signs Temp Pulse Resp BP Pulse Ox O2 Del Method O2 Flow Rate 97.3 F 97 18 99/56 L 100 Nasal Cannula 3 03/22/25 12:00 03/22/25 12:41 03/22/25 12:41 03/22/25 12:00 03/22/25 12:41 03/22/25 12:00 03/22/25 12:41 FiO2 30 03/20/25 13:21 Narrative Exam Physical Exam General: Awake and despondent, but conversational. Chronically ill-appearing. HEENT: Normocephalic, atraumatic, mucous membranes moist. On 3L NC. Heart: Regular rate and rhythm, normal S1 and S2, no murmurs. Lungs: Clear to auscultation with no wheezing or crackles. Abdomen: Soft, nondistended, nontender, positive bowel sounds. ?No guarding or rebound tenderness. Neurologic: Alert and oriented x3, no gross neurological deficit, and patient able to move all 4 extremities. Extremities: Right upper extremity with blackened and shriveled finger tips. Right BKA with dark ischemic changes. Left lower and upper extremity spots of ischemic reddened to darkened skin. Skin: Scattered red to brown-black ischemic skin changes of the extremities. Objective Labs 03/23/25 05:09 03/23/25 05:09 Labs: Laboratory Results - last 24 hr 03/22/25 05:08 WBC 19.2 H RBC 2.54 L Hgb 8.0 L Hct 25.8 L MCV 102 H MCH 31.5 MCHC 31.0 RDW Std Deviation 65.8 H Plt Count 73 L D Neut % (Auto) 87 H Lymph % (Auto) 4 L [place] % (Auto) 5 Eos % (Auto) 1 Baso % (Auto) 0 Neut # (Auto) 16.6 H Lymph # (Auto) 0.8 L [place] # (Auto) 1.0 H Eos # (Auto) 0.2 Baso # (Auto) 0.0 Immature Gran # (Auto) 0.67 H Absolute Nucleated RBC 0.00 Immature Gran % 4 H Nucleated RBC % 0 Sodium 132 L Potassium 4.5 D Chloride 98 Carbon Dioxide 25.0 Anion Gap 9 BUN 46 H Creatinine 4.8 H* D Estim Creat Clear Calc 23.2 L eGFR 14 L* BUN/Creatinine Ratio 10 L Glucose 113 H Calculated Osmolality 277 Calcium 7.8 L Corrected Calcium 8.7 Phosphorus 4.9 Magnesium 2.2 Total Bilirubin 1.1 AST 29 ALT 345 H Alkaline Phosphatase 174 H Total Protein 5.3 L Albumin 2.9 L Globulin 2.4 Albumin/Globulin Ratio 1.2 Misc Test Result Platelets confirmed ABG Interpretation ABG results: 03/14/25 03/14/25 03/14/25 14:44 16:44 18:53 ABG pH 7.03 L* 7.04 L* 7.10 L* ABG pCO2 43 50 H 46 ABG pO2 86 128 H D 57 L* D ABG HCO3 11 L 13 L 14 L ABG O2 Saturation 91 97 78 L ABG Base Excess -19 L -17 L -15 L VBG pH VBG pCO2 VBG pO2 VBG Base Excess 03/14/25 03/15/25 03/15/25 21:20 05:07 12:28 ABG pH 7.21 L D 7.41 D ABG pCO2 32 D 31 L ABG pO2 116 H D 74 L D ABG HCO3 13 L 20 ABG O2 Saturation 97 95 ABG Base Excess -14 L -4 L VBG pH 7.43 VBG pCO2 34 L VBG pO2 37 VBG Base Excess -1 03/16/25 03/16/25 03/16/25 04:51 11:48 19:30 ABG pH 7.46 H 7.22 L D 7.38 D ABG pCO2 29 L 66 H D 48 D ABG pO2 78 L 79 L 236 H D ABG HCO3 21 27 H 29 H ABG O2 Saturation 96 91 100 H ABG Base Excess -2 -2 3 VBG pH VBG pCO2 VBG pO2 VBG Base Excess 03/17/25 03/18/25 03/19/25 04:53 09:27 04:46 ABG pH 7.38 7.35 ABG pCO2 49 H 48 ABG pO2 78 L D 92 ABG HCO3 29 H 26 ABG O2 Saturation 95 98 ABG Base Excess 3 0 VBG pH 7.34 VBG pCO2 54 D VBG pO2 34 VBG Base Excess 2 Quality Measures Quality Measures VTE prophylaxis Assessment & Plan Assessment Current Active Medications: Generic Name Dose Route Start Last Admin Trade Name Freq PRN Reason Stop Dose Admin Acetaminophen 650 mg 03/20/25 11:35 03/21/25 06:39 Acetaminophen 325 Mg Tablet PO 04/19/25 11:34 650 mg Q6HR PRN Administration pain and Fever >100.4 Protocol Hydrocodone Bitart/Acetaminophen 1 tab 03/22/25 08:19 Hydrocodone/Apap 5/325 Tablet PO 03/25/25 19:41 Q6HR PRN Pain 4-6 Amiodarone HCl 200 mg 03/19/25 21:00 03/22/25 08:40 Amiodarone Hcl 200 Mg Tablet GT 04/18/25 20:59 200 mg BID MONTSERRAT Administration Aspirin 81 mg 03/16/25 09:00 03/22/25 08:40 Aspirin 81 Mg Chew GT 04/15/25 08:59 81 mg QDAY MONTSERRAT Administration Clopidogrel Bisulfate 75 mg 03/15/25 10:53 03/22/25 08:40 Clopidogrel Bisulfate 75 Mg Tablet GT 04/14/25 10:29 75 mg QDAY MONTSERRAT Administration Dextrose 25 ml 03/14/25 20:38 03/20/25 23:30 Dextrose 50%-Water Inj 50 Ml Syringe IV 04/13/25 20:37 25 ml Q15MIN PRN Administration BG 50-70 responsive npo pt Dextrose 50 ml 03/14/25 20:38 Dextrose 50%-Water Inj 50 Ml Syringe IV 04/13/25 20:37 Q15MIN PRN BG <50 OR BG <70 & pt unresponsive Glucagon 1 mg 03/14/25 17:36 Glucagon Inj 1 Mg Vial IM Q15MIN PRN BG <70, and no IV access Heparin Sodium (Porcine) 3,000 unit 03/19/25 13:33 03/20/25 16:21 Heparin Sod Inj 1000 Unit/Ml Vial 10 Ml INDWELLCAT 04/02/25 13:32 3,000 unit PRN PRN Administration DIALYSIS Hydromorphone HCl 0.5 mg 03/22/25 08:20 03/22/25 09:53 Hydromorphone Inj 2 Mg/Ml Vial IVP 03/26/25 19:32 0.5 mg Q4HR PRN Administration SEVERE PAIN 7-10 Albumin Human 25 gm in 100 mls @ 100 mls/min 03/19/25 10:38 03/20/25 15:33 Albuminar-25 Ivpb IV 100 mls/min PRN PRN Administration DIALYSIS Insulin Human Lispro 0 unit 03/22/25 11:30 03/22/25 12:03 Insulin Lispro (Admelog) 1 Unit/0.01 Ml Unit SC 04/21/25 11:29 Not Given ACHS MONTSERRAT Protocol Levalbuterol HCl 0.31 mg 03/20/25 12:15 03/22/25 12:38 Levalbuterol Rt 0.31 Mg/3 Ml Nebu INH 04/19/25 12:14 0.31 mg Q6HRRT MONTSERRAT Administration Metoprolol Succinate 25 mg 03/22/25 09:00 03/22/25 08:40 Metoprolol Succinate Xl 25 Mg Tabcr PO 04/21/25 08:59 25 mg BID MONTSERRAT Administration Midodrine 10 mg 03/19/25 18:19 Midodrine 5 Mg Tablet GT 04/18/25 21:59 TID PRN MAP below 65 Ondansetron HCl 4 mg 03/14/25 17:31 Ondansetron Inj 2 Mg/Ml Inj 2 Ml IV 04/13/25 17:30 Q6H PRN NAUSEA OR VOMITING Protocol Pantoprazole Sodium 40 mg 03/14/25 21:00 03/22/25 08:41 Pantoprazole Inj 40 Mg Vial IVP 04/13/25 20:59 40 mg BID MONTSERRAT Administration Sodium Chloride 3 ml 03/17/25 19:00 03/22/25 12:38 Sodium Cl Rt Marjorie 3% 4 Ml Nebu (Non-Formulary) INH 04/16/25 18:59 3 ml Q6HRRT MONTSERRAT Administration Plan 49-year-old male with past medical history of DM2, hypertension, ESRD (HD /), HFpEF (EF 55% on 2021), and right BKA due to osteomyelitis was initially admitted to the ICU on 03/14/2025 for acute hypoxic respiratory failure, acute encephalopathy, and shock. He was subsequently extubated and downgraded to telemetry on 03/20/2025 for continuation of care. #SVT episodes #Afib, rate controlled #Elevated troponin, NSTEMI type II supply and demand, downtrended #Decompensated HFpEF (EF 45-50%) Patient s/p intubation and pressor support in ICU for shock, distributive secondary to sepsis versus cardiogenic. Patient initially presented to ED in SVT and required shock x1. Troponin initially 1.856 uptrended to 7.899 peak. Patient was treated for pneumonia. Patient was able to wean off pressors, extubated, now downgraded to tele. CT LER showed diffuse stenosis on the arteries of the LLE, occlusions in almost all major arteries. Echo done on 03/16/2025 showed LV appears normal with EF 45-50%. Septal dyskinesis is seen, RV appears normal with RVSP 50 mmHg. Mildly dilated LA & RA Mild mitral regurgitation Mild-Moderate TR. 03/21, patient had 2 rapid response events for SVT in the 170-200s which self converted in minutes. -Continue amiodarone 200 mg BID -Continue metoprolol succinate 25 mg BID -Maintain K >4.0 and Mag >2.0 -Continue dialysis per Nephro #Severe peripheral vascular disease #Right upper extremity limb ischemia #Left upper extremity limb ischemia #Left lower extremity limb ischemia Patient has history of right extremity BKA due to severe PAD. This admission after severe shock requiring pressor support patient subsequently developed ischemia of the right and left fingertips. Vascular surgeon stated that the patient is not a candidate at this time for revascularization, however stated that would discuss case with general surgeon. Likely upper extremity digits affected by vasopressor support in combination with severe PAD causing limb ischemia. -May consider extremity angiogram to visualize upper and lower extremity artery flow and possible need for stent, however patient must have bacteremia treated first -Continue aspirin 81 mg qday -Continue clopidogrel 75 mg qday #GPC bacteremia #Leukocytosis Patient tested for gram-positive cocci 2/2 blood cultures on 03/21/2025, first positive blood cultures this admission. Patient has not been febrile, however has had persistent leukocytosis. Patient subsequently getting all lines removed after receiving dialysis. -Repeat echo pending -Repeat blood cultures pending #Hypotension S/p shock weaned off pressors, multifactorial likely distributive and some component cardiogenic. -Continue midodrine 10 mg TID Rest of conditions to continue current management per primary team: #Acute hypoxic respiratory failure #Community-acquired pneumonia, Stenotrophomonas maltophilia #ESRD (HD on ) #History of type 2 diabetes #Respiratory acidosis, resolved #HAGMA, resolved #Lactic acidosis, resolved #Hyperkalemia, resolved #Shock liver, resolved #Possible GI bleed #Macrocytic anemia #Thrombocytopenia #Hematemesis, resolved #Hypoglycemia, resolved Patient was discussed with the Cardiology attending, Dr. Villalobos. Thank you for allowing us to participate in the care of this patient. Radha Tsai, PGY-2
--- NOTE | 2025-03-22 16:22 | PC.SS ---
SS follow up note; SS was informed that patient was wanting to discharge to a SNF on hospice. SS submitted hospice referral as well as submitted SNF inquiry through [employer] platform. SS contacted patient's , Sophia and she informed the choice of hospice agency was [facility]. SS will follow up in the morning with Jane from [place].
[2025-03-22] MEDS: VANCOMYCIN/D5W 1,250 MG IVPB 250 ML 120 MG IV (17:08)
[2025-03-22] MEDS: INSULIN LISPRO (AdmeLOG) 1 UNIT/0.01 ML UNIT SC (17:24)
--- NOTE | 2025-03-22 22:03 | PC.NURSE ---
ARDEN Pak informed this RN that patient has a vape pen in his bed. Informed patient and he could not have this in the hospital. at bedside states the pen is hers witnessed the take the vape and place in her purse when leaving. Charge nurse Billie notified,
[2025-03-23] VITALS (31 sets, daily range): BP systolic 79–122; BP diastolic 50–83; PULSE 75–99; RESP 16–86; TEMP 36–36.9; O2SAT 91–100; BMI 32.3
[2025-03-23] MEDS: LEVALBUTEROL RT 0.31 MG/3 ML NEBU INH ×4 (01:01→20:16)
[2025-03-23] MEDS: SODIUM CL RT SOL 3% 4 ML NEBU (NON-FORMULARY) 3 ML INH ×2 (01:01→20:16)
[2025-03-23 05:50] LABS: Basophils # (Auto) 0.1 Thou/mm3 (0.0-0.2); Basophils % (Auto) 0 % (0-2.5); Eosinophils # (Auto) 0.1 Thou/mm3 (0.0-0.5); Eosinophils % (Auto) 1 % (0-10); Hematocrit 28.2 % (41.0-53.0); Immature Granulocytes % (Auto) 3 % (0-0); Immature Granulocytes Auto 0.47 Thou/mm3 (0.00-0.00); Lymphocytes # (Auto) 0.8 Thou/mm3 (1.0-4.8); Lymphocytes % (Auto) 4 % (10-50); Mean Corpuscular HGB Conc 30.1 g/dl (31.0-37.0); Mean Corpuscular Hemoglobin 31.5 pg (25.0-35.0); Mean Corpuscular Volume 104 fL (80-100); Monocytes # (Auto) 1.2 Thou/mm3 (0.0-0.8); Monocytes % (Auto) 7 % (0-12); Neutrophils % (Auto) 86 % (37-80); Nucleated Red Blood Cell % 0 /100 WBC (0); RDW Standard Deviation 68.2 fL (35.1-43.9); White Blood Count 18.7 Thou/mm3 (3.8-10.6)
[2025-03-23 06:57] LABS: Alanine Aminotransferase 282 U/L (10-49); Albumin/Globulin Ratio 1.2 (1.2-2.2); Alkaline Phosphatase 175 U/L (46-116); Anion Gap 12 (7-16); Aspartate Amino Transferase 31 U/L (0-34); BUN/Creatinine Ratio 9 Ratio (12-20); Bilirubin,Total 0.9 mg/dL (0.3-1.2); Blood Urea Nitrogen 54 mg/dL (9-23); Calcium 7.6 mg/dL (8.3-10.6); Calcium (Corrected) 8.4 mg/dL (8.5-10.1); Carbon Dioxide 21.4 mMol/L (20.0-31.0); Chloride 98 mMol/L (98-107); Creatinine (Component) 6.1 mg/dL (0.6-1.3); Estimated Creatinine Clearance 18.2 mL/min (>60); Globulin 2.5 gm/dL (2.3-3.5); Glucose 116 mg/dL (74-106); Osmolality,Calculated 278 (275-295); Potassium 4.8 mMol/L (3.4-5.1); Sodium 131 mMol/L (136-145); Total Protein 5.5 gm/dL (5.7-8.2); Vancomycin,Random 13.7 mcg/mL; eGFR 10 See Note
[2025-03-23] MEDS: HYDROmorphone INJ 2 MG/ML VIAL 0.5 MG IVP ×5 (07:25→22:13)
[2025-03-23 07:31] LABS: Platelet Count 59 Thou/mm3 (140-440)
[2025-03-23 08:20] LABS: Slide Review Platelets confirmed
[2025-03-23] MEDS: CLOPIDOGREL BISULFATE 75 MG TABLET GT (08:22)
[2025-03-23] MEDS: AMIODARONE HCL 200 MG TABLET GT ×2 (08:22→20:39)
[2025-03-23] MEDS: METOPROLOL SUCCINATE XL 25 MG TABCR PO ×2 (08:22→20:39)
[2025-03-23] MEDS: HYDROcodone/APAP 5/325 TABLET 1 TAB PO (08:23)
[2025-03-23] MEDS: ASPIRIN 81 MG CHEW GT (08:23)
[2025-03-23 08:26] LABS: Hemoglobin 8.5 g/dL (13.5-16.0)
[2025-03-23] MEDS: CALCIUM CARBONATE 600 MG TABLET PO (08:27)
[2025-03-23] MEDS: PANTOPRAZOLE INJ 40 MG VIAL IVP ×2 (08:30→20:38)
--- NOTE | 2025-03-23 08:53 | PC.PT ---
Patient will be D/C from PT due to patient is transitioning to hospice care.
--- NOTE | 2025-03-23 13:02 | PC.NURSE ---
Spoke with infection control to comfirm if patient needs to be on contact precautions for positive cocci in the blood. Pt does not need contact precautions at this time.
--- NOTE | 2025-03-23 14:51 | PC.NURSE ---
BP LOW PT DENIES ALL S/S OF HYPOTENSION WILL ADMIN PRN ALBUMIN AND CONT. TO MONITOR
[2025-03-23] MEDS: ALBUMIN HUMAN 25% IVPB 25 GM/100 ML BTL IV (14:52)
--- NOTE | 2025-03-23 15:01 | PC.NURSE ---
BP LOW PT DENIES ALL S/S OF HYPOTENSION. UF GOAL LOWERED TO 1L TOLERATED WILL CONT. TO MONITOR
--- NOTE | 2025-03-23 15:16 | PC.NURSE ---
BP CONT. TO TREND DOWN PT CONT. TO DENY COMPLAINTS UF GOAL LOWERED TO 0.5L TOLERATED WILL CONT.TO MONITOR
--- NOTE | 2025-03-23 15:19 | ESPR_ITS ---
<Statement entered by Keyur Huston MD - 03/26/25 08:14> I reviewed above note and agree with findings and plans. I have also personally examined the patient with medicine team and went over assessment and plan with medical team including internet site designer and resident physician. <Statement entered by Minh Smith MD - 03/23/25 17:22> Senior Resident Attestation: I supervised/discussed management plan with internet site designer physician Dr. Pacheco, and was involved in the care of this patient. I personally saw and examined the patient and discussed the assessment and plan with the entire medicine team, including my attending. I agree with the assessment and plan as documented. Patient's care was discussed with attending physician, Dr. Husotn. Minh Smith MD PGY-2. Documentation for date of: 03/23/25 Subjective Subjective Interval history: No acute overnight events reported. Patient is seen and examined at bedside this morning. Patient states he has been in significant amount of pain in his fingertips with ischemic changes are noted and patient is unable to sleep at night due to the pain. Currently patient is getting Dilaudid 0.5 mg every 4 hours as needed which she states helps for an hour or so only. Vitals are stable with blood pressure 105/74 and significant labs include WBC downtrending 18.7 hemoglobin is stable at 8.5, hematocrit 28.2, sodium 131, BUN 54, creatinine 6.1. Patient blood cultures are positive for GPC and was started on Vanco yesterday. After dialysis will remove the lines and consult to infectious disease for further recommendations. Patient will likely be discharged on palliative care under hospice. Exam Vital Signs Temp Pulse Resp BP Pulse Ox O2 Del Method O2 Flow Rate 98.2 F 93 18 86/57 L 96 Nasal Cannula 3 03/23/25 14:16 03/23/25 15:15 03/23/25 14:16 03/23/25 15:15 03/23/25 14:16 03/23/25 12:00 03/23/25 12:00 FiO2 30 03/20/25 13:21 Narrative Exam GENERAL: A&Ox3 . Awake, Not in acute distress NEURO: no focal neurological deficits noted HEENT: Atraumatic, Normocephalic. mucous membranes moist. Eyes open, symmetrical, & clear HEART: Normal Heart Sounds LUNGS: Clear to auscultation with no wheezing or crackles. ABDOMEN: soft, non-distended, non-tender, bowel sounds heard, no guarding or rebound tenderness SKIN: ISCHEMIC CHANGES NOTED, necrotic changes at the tips of fingers bilaterally in UE and Left LE EXTREMITIES: Right BKA with cyanotic and ischemic changes at the stump Objective Labs 03/23/25 05:09 03/23/25 05:09 Labs: Laboratory Results - last 24 hr 03/23/25 05:09 WBC 18.7 H RBC 2.70 L Hgb 8.5 L Hct 28.2 L MCV 104 H MCH 31.5 MCHC 30.1 L RDW Std Deviation 68.2 H Plt Count 59 L Neut % (Auto) 86 H Lymph % (Auto) 4 L Nicholas % (Auto) 7 Eos % (Auto) 1 Baso % (Auto) 0 Neut # (Auto) 16.0 H Lymph # (Auto) 0.8 L Nicholas # (Auto) 1.2 H Eos # (Auto) 0.1 Baso # (Auto) 0.1 Immature Gran # (Auto) 0.47 H Absolute Nucleated RBC 0.00 Immature Gran % 3 H Nucleated RBC % 0 Sodium 131 L Potassium 4.8 Chloride 98 Carbon Dioxide 21.4 Anion Gap 12 BUN 54 H Creatinine 6.1 H* D Estim Creat Clear Calc 18.2 L eGFR 10 L* BUN/Creatinine Ratio 9 L Glucose 116 H Calculated Osmolality 278 Calcium 7.6 L Corrected Calcium 8.4 L Total Bilirubin 0.9 AST 31 ALT 282 H Alkaline Phosphatase 175 H Total Protein 5.5 L Albumin 3.0 L Globulin 2.5 Albumin/Globulin Ratio 1.2 Random Vancomycin 13.7 Misc Test Result Platelets confirmed ABG Interpretation ABG results: 03/14/25 03/14/25 03/14/25 14:44 16:44 18:53 ABG pH 7.03 L* 7.04 L* 7.10 L* ABG pCO2 43 50 H 46 ABG pO2 86 128 H D 57 L* D ABG HCO3 11 L 13 L 14 L ABG O2 Saturation 91 97 78 L ABG Base Excess -19 L -17 L -15 L VBG pH VBG pCO2 VBG pO2 VBG Base Excess 03/14/25 03/15/25 03/15/25 21:20 05:07 12:28 ABG pH 7.21 L D 7.41 D ABG pCO2 32 D 31 L ABG pO2 116 H D 74 L D ABG HCO3 13 L 20 ABG O2 Saturation 97 95 ABG Base Excess -14 L -4 L VBG pH 7.43 VBG pCO2 34 L VBG pO2 37 VBG Base Excess -1 03/16/25 03/16/25 03/16/25 04:51 11:48 19:30 ABG pH 7.46 H 7.22 L D 7.38 D ABG pCO2 29 L 66 H D 48 D ABG pO2 78 L 79 L 236 H D ABG HCO3 21 27 H 29 H ABG O2 Saturation 96 91 100 H ABG Base Excess -2 -2 3 VBG pH VBG pCO2 VBG pO2 VBG Base Excess 03/17/25 03/18/25 03/19/25 04:53 09:27 04:46 ABG pH 7.38 7.35 ABG pCO2 49 H 48 ABG pO2 78 L D 92 ABG HCO3 29 H 26 ABG O2 Saturation 95 98 ABG Base Excess 3 0 VBG pH 7.34 VBG pCO2 54 D VBG pO2 34 VBG Base Excess 2 Quality Measures Quality Measures VTE prophylaxis Assessment & Plan Assessment Current Active Medications: Generic Name Dose Route Start Last Admin Trade Name Freq PRN Reason Stop Dose Admin Acetaminophen 650 mg 03/20/25 11:35 03/21/25 06:39 Acetaminophen 325 Mg Tablet PO 04/19/25 11:34 650 mg Q6HR PRN Administration pain and Fever >100.4 Protocol Hydrocodone Bitart/Acetaminophen 1 tab 03/23/25 18:00 Hydrocodone/Apap 10/325 Tab PO 03/28/25 17:59 Q6HR [place] Amiodarone HCl 200 mg 03/19/25 21:00 03/23/25 08:22 Amiodarone Hcl 200 Mg Tablet GT 04/18/25 20:59 200 mg BID [place] Administration Aspirin 81 mg 03/16/25 09:00 03/23/25 08:23 Aspirin 81 Mg Chew GT 04/15/25 08:59 81 mg QDAY [place] Administration Clopidogrel Bisulfate 75 mg 03/15/25 10:53 03/23/25 08:22 Clopidogrel Bisulfate 75 Mg Tablet GT 04/14/25 10:29 75 mg QDAY [place] Administration Dextrose 25 ml 03/14/25 20:38 03/20/25 23:30 Dextrose 50%-Water Inj 50 Ml Syringe IV 04/13/25 20:37 25 ml Q15MIN PRN Administration BG 50-70 responsive npo pt Dextrose 50 ml 03/14/25 20:38 Dextrose 50%-Water Inj 50 Ml Syringe IV 04/13/25 20:37 Q15MIN PRN BG <50 OR BG <70 & pt unresponsive Glucagon 1 mg 03/14/25 17:36 Glucagon Inj 1 Mg Vial IM Q15MIN PRN BG <70, and no IV access Heparin Sodium (Porcine) 3,000 unit 03/19/25 13:33 03/20/25 16:21 Heparin Sod Inj 1000 Unit/Ml Vial 10 Ml INDWELLCAT 04/02/25 13:32 3,000 unit PRN PRN Administration DIALYSIS Hydromorphone HCl 0.5 mg 03/23/25 14:00 03/23/25 14:36 Hydromorphone Inj 2 Mg/Ml Vial IVP 03/28/25 13:59 0.5 mg Q4HR [place] Administration Vancomycin/Sodium Chloride 100 mls @ 120 mls/hr 03/23/25 17:00 Vancomycin/Ns 500 Mg Ivpb IV 03/23/25 17:49 X1 ONE Insulin Human Lispro 0 unit 03/22/25 11:30 03/23/25 11:30 Insulin Lispro (Admelog) 1 Unit/0.01 Ml Unit SC 04/21/25 11:29 Not Given ACHS [place] Protocol Levalbuterol HCl 0.31 mg 03/20/25 12:15 03/23/25 13:02 Levalbuterol Rt 0.31 Mg/3 Ml Nebu INH 04/19/25 12:14 0.31 mg Q6HRRT [place] Administration Metoprolol Succinate 25 mg 03/22/25 09:00 03/23/25 08:22 Metoprolol Succinate Xl 25 Mg Tabcr PO 04/21/25 08:59 25 mg BID [place] Administration Midodrine 10 mg 03/19/25 18:19 Midodrine 5 Mg Tablet GT 04/18/25 21:59 TID PRN MAP below 65 Ondansetron HCl 4 mg 03/14/25 17:31 Ondansetron Inj 2 Mg/Ml Inj 2 Ml IV 04/13/25 17:30 Q6H PRN NAUSEA OR VOMITING Protocol Pantoprazole Sodium 40 mg 03/14/25 21:00 03/23/25 08:30 Pantoprazole Inj 40 Mg Vial IVP 04/13/25 20:59 40 mg BID [place] Administration Pharmacy Consult 1 each 03/22/25 15:15 Vancomycin Pharmacy To Dose 1 Each Each IV 04/21/25 15:14 QDAY PRN CONSULT Sodium Chloride 3 ml 03/17/25 19:00 03/23/25 01:01 Sodium Cl Rt Marjorie 3% 4 Ml Nebu (Non-Formulary) INH 04/16/25 18:59 3 ml Q6HRRT [facility] Administration Plan Mr. Mcclain is a 49 years old male with PMH of DM2, hypertension, ESRD (HD ), HFpEF (EF 55% on 2021), and right BKA due to osteomyelitis BIBA to the ED due to AMS, was intubated and started on pressors and was admitted to the ICU on 03/14/2025 for management of shock of unknown etiology and was started on IV antibiotics. On 03/17 his sputum culture grew stenotrophomonas maltophilia and antibiotics were changed to levofloxacin. He was extubated and downgraded to telemetry on 03/20/2025 for continuation of care. # GPC bacteremia # CLABSI - Patient tested for gram-positive cocci 2/2 blood blood cultures on 03/21/2025 Plan - Repeat blood cultures were sent on 03/22/2025, pending - Vancoymycin started 03/23- - Repeat echocardiogram was ordered to rule out infective endocarditis - Licensing Manager Dr. Pleitez is ok with discontinuation dailysis cath - Discontinuation of cath orders placed -consult to infectious disease specialist Dr. Villegas, appreciate recommendations #A-fib with RVR, rate controlled Patient again went into SVT last night and was shocked again, but on repeat EKG showed to be in A-fib RVR. Patient again went into SVT and received adenosine 6mg x1 and adenosine 12mg x1 before being cardioverted. Repeat EKG showed what appears to be MAT. [id number] score of 3 points indicating 3.2% risk of stroke per year HAS-BLED score of 5 points Plan: - Continue amiodarone 200mg BID -Metoprolol succinate 25mg daily -Keep Potassium >4 and Mg >2 -Unable to start pt on anticoagulation due to acute blood loss anemia -Mail Processing Equipment Mechanic Dr. Villalobos following the case, and appreciate his recommendations #Possible acute vs chronic limb ischemia. #Peripheral Vascular disease, severe Abdomen CTA with runoff that showed occlusion of multiple arteries including the left radial, gluteal, and tibial arteries as well as 90% stenosis of the left superficial femoral artery Also showed 80% stenosis of right superficial femoral artery. Overnight ICU team spoke with vascular surgeon at [facility] who stated that at this time patient was not a candidate for transfer for revascularization. Patient understands that he may lose multiple digits and even his left lower foot. Most likely needs to follow-up with vascular surgeon as an outpatient. Plan: - Nitroglycerin topical ointment. - Will continue with aspirin and Plavix for now -Pt will need outpatient follow up with vascular surgeon #Acute hypoxic respiratory failure, improved. #Stenotrophomonas maltophilia pneumonia. #Respiratory acidosis, resolved. #Septic shock, resolved. Intubated on 03/14/2025. Follow up Chest x-ray shows significant improvement. Sputum grew stenotrophomonas maltophilia. Extubated on 03/20/2025. Zosyn 03/14/2025-03/17/2025 Vancomycin 03/14/2025 - 03/15/2025. Plan: - Continue hypertonic saline inhaled solution and chest physiotherapy. - Continue levaquin 500mg q48hr 03/17/2025- 03/21 -Discontinued levaquin due to increased risk of QT prolonging which can cause Vfib. - Midodrine 10mg TID as needed. #Troponinemia - resolved Troponins peaked at 7.899 and down trended to 7.04. EKG done overnight that shows some ST depressions in lead II and V3 to V6. Echo showed EF of 45 to 50% and septal dyskinesis. Cardiology consulted, appreciate recommendations. Plan: - Will continue on aspirin, Plavix. #HFrEF (EF 45-50% on 2024). -Given positive U tox for Opioids, amphetamines, marijuana -Echo done 03/16: LV appears normal with EF 45-50%. Septal dyskinesis is seen. RV appears normal with RVSP 50 mmHg. Mildly dilated LA & RA Mild mitral regurgitation Mild-Moderate TR Plan: - Will continue with hemodialysis with fluid removal. - Daily weights. - Strict JENN's. - fluid restriction. #ESRD (HD on T/). #HAGMA, resolved. #Lactic acidosis, resolved. Consult nephrology, appreciate recommendations Plan: - Continue hemodialysis as scheduled. -Licensing Manager Dr. Pleitez following, appreciate recommendations - Avoid nephrotoxic agents. - Renally dose medications. #Acute blood loss Anemia #Hematemesis. #Macrocytic anemia. #Thrombocytopenia. Patient's hemoglobin was downtrending from 11.9 on admission to 7.8 today. PLT 39. Plan: - continue to monitor daily CBC - transfuse if Hgb < 7. #Transaminitis. #Hyperbilirubinemia #Hepatomegaly. Possible liver failure due to methamphetamine use? Could be due to shock liver versus hypoxia versus drug-induced. Hepatitis panel negative and abdominal ultrasound that shows some hepatomegaly with possible cirrhosis versus hepatocellular disease. Plan: - continue monitoring daily labs #Hx of DM2. #Hypoglycemia, resolved. Plan: - ISS. - Hypoglycemia protocol ordered. Hospital Maintenance: Diet: renal diet DVT ppx: Heparin 5000 SC Q12H GI ppx: Protonix IV. IV lines: PIV, CIV (LIJ/R SubC). Cruz: cruz cath. Code status: DNR. Assessment and plan discussed with my senior resident Dr. Smith & attending physician Dr. Betzaida Pacheco (PGY-1)- Internal medicine resident
--- NOTE | 2025-03-23 15:20 | ECHO_ITS ---
Transthoracic Echo Report Ht (in): 72 Wt (lb): 238 Exam Location: Portable Status: Inpatient Transition Advisor: LARISSA Solares^^^^ Indications: Procedure Performed: BP: / HR: MEASUREMENTS (Male / Female) Normal Values 2D ECHO LA Volume Index 48.7 cm?/m? 16 - 28 cm?/m? DOPPLER AV Peak Velocity 165.0 cm/s AV Peak Gradient 10.9 mmHg AV Mean Gradient 8.0 mmHg AV Velocity Time Integral 34.2 cm LVOT Peak Velocity 107.0 cm/s LVOT Peak Gradient 4.6 mmHg LVOT Velocity Time Integral 21.6 cm MV Peak Velocity 149.0 cm/s MV Peak Gradient 8.9 mmHg MV Mean Velocity 74.2 cm/s MV Mean Gradient 3.0 mmHg MV Area PHT 5.6 cm? MR Peak Velocity 284.0 cm/s MR Peak Gradient 32.3 mmHg Mitral E Point Velocity 104.0 cm/s Mitral A Point Velocity 2.4 cm/s Mitral E to A Ratio 43.2 LV E' Lateral Velocity 11.9 cm/s Mitral E to LV E' Lateral Ratio 8.7 LV E' Septal Velocity 8.2 cm/s Mitral E to LV E' Septal Ratio 12.7 TR Peak Velocity 295.3 cm/s TR Peak Gradient 34.9 mmHg FINDINGS Left Ventricle The left ventricular ejection fraction is normal, estimated at 55-60%. There is grade III diastolic dysfunction of the left ventricle (restrictive filling pattern). Regional wall motion abnormalities are present. Right Ventricle The right ventricle is normal in size and systolic function. The estimated right ventricular systolic pressure, 36 mmHg. Left Atrium Mildly increased left atrial volume 48.7 mL/m?. Right Atrium The right atrium is normal by two-dimensional imaging, color flow and Doppler imaging with no structural abnormalities, no thrombus formation present. Atrial Septum The interatrial septum appears normal with no evidence of a shunt. Aorta The aorta is normal by two-dimensional, color flow and Doppler interrogation. Mitral Valve Mild mitral regurgitation. Mild mitral annular calcification. Aortic Valve Aortic valve showed calcification and thickening of the cusps with mild sclerosis but no stenosis. There is no evidence of vegetation. Compared to study in detail absolutely no change patient has degenerative calcification but no vegetations. Tricuspid Valve There is mild tricuspid valve regurgitation. Pulmonic Valve Trivial pulmonic valve regurgitation. Vessels The pulmonary artery appears normal. The inferior vena cava pulmonary and hepatic veins appear normal. Pericardium The pericardium is normal by two-dimensional imaging. There is no significant pericardial effusion. CONCLUSIONS Indication: GPC bacteremia Aortic root is normal in dimensions. Aortic valve leaflets with sclerosis calcification thickening of the cusp but no stenosis. No evidence of vegetation detected. Mitral valve annular show mild calcification mitral leaflets with thickening regurgitations. Left atrium appears to be mildly dilated. Left ventricle is normal with evidence of mild anteroseptal hypokinesis with well-preserved ejection fraction of 50 to 55%. Right heart structures normal. Mild tricuspid regurgitation with no evidence of pulmonary hypertension normal PA pressures. Tricuspid and pulmonic valves appear normal no vegetations. Compared to the study a week ago no change except some improvement in LV function. Camelia Kline (Electronically Signed) Final Date: 23 March 2025 17:59
--- NOTE | 2025-03-23 15:55 | PC.NURSE ---
BP LOW AND CONT. TO TREND DOWN, UF TURNED OFF, PT REMAINS ASYMPTOMATIC DENYING ALL S/S OF HYPOTENSION WILL CONT. TO MONITOR.
--- NOTE | 2025-03-23 16:08 | PC.NURSE ---
BP TRENDING UP, UF RESUMED W/ UF GOAL AT 0.2L TOLERATED WILL CONT. TO MONITOR
--- NOTE | 2025-03-23 16:24 | PC.NURSE ---
BP REMAINS LOW WILL ADMIN 100ML BOLUS AND CONT. TO MONITOR
[2025-03-23] MEDS: HEPARIN SOD INJ 1000 UNIT/ML VIAL 10 ML 3000 UNIT INDWELLCAT (18:20)
[2025-03-23] MEDS: HYDROcodone/APAP 10/325 TAB PO ×2 (18:31→23:48)
[2025-03-23] MEDS: VANCOMYCIN/NS 500 MG IVPB 100 ML 120 MG IV (18:31)
--- NOTE | 2025-03-23 19:18 | PC.NURSE ---
Spoke with Dr. Pacheco regarding removing central line, stated, we can wait until tomarrow as there is no other IV access at this time for pain medication and antibiotics
[2025-03-23] MEDS: HEPARIN SOD INJ 5000 UNIT/ML VIAL SC (20:38)
--- NOTE | 2025-03-23 21:41 | ESPR_ITS ---
<Statement entered by Yanci Villalobos MD - 03/24/25 18:12> I personally evaluated the patient examined patient admitted the hospital multiple problems intubated mechanical ventilation unsuccessful extubated undergoing dialysis continues to not feel that well he has developed GPC bacteremia 2/2 cultures are pending echocardiogram showed no evidence of any vegetations for now left ventricle function appears to be well-preserved ejection fraction 50 to 55% which is quite good patient is stable I do not think patient has any significant acute occlusion of coronary arteries require any emergency angiogram we will wait improvement of sepsis before any further invasive workup. Patient continues to have gangrenous changes left foot and also right hand vascular surgeon apparently been consulted will await his opinion Documentation for date of: 03/23/25 Subjective Subjective Interval history: No acute events overnight.?Patient seen and examined at bedside this afternoon in dialysis.?He reports the same pain in his hands. He states that Dr. López, vascular surgeon, mentioned would speak to the general surgeon. Per primary team general surgery mentioned that portion of fingers which had been ischemic would likely fall off on their own. Labs and vitals were reviewed.?GPC is growing in 2/2 samples, source is unknown at this time but patient will have all lines removed after dialysis. WBC remains elevated at 18.7. 24-hour telemetry reviewed showing no new arrhythmia events and HR remained rate-controlled in the 90s. Patient otherwise remains on amiodarone 200 mg BID, midodrine 10 mg TID for BP support. Review of systems otherwise negative except what is mentioned above. Exam Vital Signs Temp Pulse Resp BP Pulse Ox O2 Del Method O2 Flow Rate 97.2 F 99 20 122/83 99 Nasal Cannula 5 03/23/25 20:00 03/23/25 20:39 03/23/25 20:16 03/23/25 20:39 03/23/25 20:16 03/23/25 20:00 03/23/25 20:16 FiO2 30 03/20/25 13:21 Narrative Exam Physical Exam General: Awake and despondent, but conversational. Chronically ill-appearing. HEENT: Normocephalic, atraumatic, mucous membranes moist. On 3L NC. Heart: Regular rate and rhythm, normal S1 and S2, no murmurs. Lungs: Clear to auscultation with no wheezing or crackles. Abdomen: Soft, nondistended, nontender, positive bowel sounds. ?No guarding or rebound tenderness. Neurologic: Alert and oriented x3, no gross neurological deficit, and patient able to move all 4 extremities. Extremities: Right upper extremity with blackened and shriveled finger tips. Right BKA with dark ischemic changes. Left lower and upper extremity spots of ischemic reddened to darkened skin. Skin: Scattered red to brown-black ischemic skin changes of the extremities. Objective Labs 03/23/25 05:09 03/23/25 05:09 Labs: Laboratory Results - last 24 hr 03/23/25 05:09 WBC 18.7 H RBC 2.70 L Hgb 8.5 L Hct 28.2 L MCV 104 H MCH 31.5 MCHC 30.1 L RDW Std Deviation 68.2 H Plt Count 59 L Neut % (Auto) 86 H Lymph % (Auto) 4 L [place] % (Auto) 7 Eos % (Auto) 1 Baso % (Auto) 0 Neut # (Auto) 16.0 H Lymph # (Auto) 0.8 L [place] # (Auto) 1.2 H Eos # (Auto) 0.1 Baso # (Auto) 0.1 Immature Gran # (Auto) 0.47 H Absolute Nucleated RBC 0.00 Immature Gran % 3 H Nucleated RBC % 0 Sodium 131 L Potassium 4.8 Chloride 98 Carbon Dioxide 21.4 Anion Gap 12 BUN 54 H Creatinine 6.1 H* D Estim Creat Clear Calc 18.2 L eGFR 10 L* BUN/Creatinine Ratio 9 L Glucose 116 H Calculated Osmolality 278 Calcium 7.6 L Corrected Calcium 8.4 L Total Bilirubin 0.9 AST 31 ALT 282 H Alkaline Phosphatase 175 H Total Protein 5.5 L Albumin 3.0 L Globulin 2.5 Albumin/Globulin Ratio 1.2 Random Vancomycin 13.7 Misc Test Result Platelets confirmed ABG Interpretation ABG results: 03/14/25 03/14/25 03/14/25 14:44 16:44 18:53 ABG pH 7.03 L* 7.04 L* 7.10 L* ABG pCO2 43 50 H 46 ABG pO2 86 128 H D 57 L* D ABG HCO3 11 L 13 L 14 L ABG O2 Saturation 91 97 78 L ABG Base Excess -19 L -17 L -15 L VBG pH VBG pCO2 VBG pO2 VBG Base Excess 0403/15/25 03/15/25 21:20 05:07 12:28 ABG pH 7.21 L D 7.41 D ABG pCO2 32 D 31 L ABG pO2 116 H D 74 L D ABG HCO3 13 L 20 ABG O2 Saturation 97 95 ABG Base Excess -14 L -4 L VBG pH 7.43 VBG pCO2 34 L VBG pO2 37 VBG Base Excess -1 03/16/25 03/16/25 03/16/25 04:51 11:48 19:30 ABG pH 7.46 H 7.22 L D 7.38 D ABG pCO2 29 L 66 H D 48 D ABG pO2 78 L 79 L 236 H D ABG HCO3 21 27 H 29 H ABG O2 Saturation 96 91 100 H ABG Base Excess -2 -2 3 VBG pH VBG pCO2 VBG pO2 VBG Base Excess 03/17/25 03/18/25 03/19/25 04:53 09:27 04:46 ABG pH 7.38 7.35 ABG pCO2 49 H 48 ABG pO2 78 L D 92 ABG HCO3 29 H 26 ABG O2 Saturation 95 98 ABG Base Excess 3 0 VBG pH 7.34 VBG pCO2 54 D VBG pO2 34 VBG Base Excess 2 Quality Measures Quality Measures VTE prophylaxis Assessment & Plan Assessment Current Active Medications: Generic Name Dose Route Start Last Admin Trade Name Freq PRN Reason Stop Dose Admin Acetaminophen 650 mg 03/20/25 11:35 03/21/25 06:39 Acetaminophen 325 Mg Tablet PO 04/19/25 11:34 650 mg Q6HR PRN Administration pain and Fever >100.4 Protocol Hydrocodone Bitart/Acetaminophen 1 tab 03/23/25 18:00 03/23/25 18:31 Hydrocodone/Apap 10/325 Tab PO 03/28/25 17:59 1 tab Q6HR [place] Administration Amiodarone HCl 200 mg 03/19/25 21:00 03/23/25 20:39 Amiodarone Hcl 200 Mg Tablet GT 04/18/25 20:59 200 mg BID [place] Administration Aspirin 81 mg 03/16/25 09:00 03/23/25 08:23 Aspirin 81 Mg Chew GT 04/15/25 08:59 81 mg QDAY [place] Administration Clopidogrel Bisulfate 75 mg 03/15/25 10:53 03/23/25 08:22 Clopidogrel Bisulfate 75 Mg Tablet GT 04/14/25 10:29 75 mg QDAY [place] Administration Dextrose 25 ml 03/14/25 20:38 03/20/25 23:30 Dextrose 50%-Water Inj 50 Ml Syringe IV 04/13/25 20:37 25 ml Q15MIN PRN Administration BG 50-70 responsive npo pt Dextrose 50 ml 03/14/25 20:38 Dextrose 50%-Water Inj 50 Ml Syringe IV 04/13/25 20:37 Q15MIN PRN BG <50 OR BG <70 & pt unresponsive Glucagon 1 mg 03/14/25 17:36 Glucagon Inj 1 Mg Vial IM Q15MIN PRN BG <70, and no IV access Heparin Sodium (Porcine) 3,000 unit 03/19/25 13:33 03/23/25 18:20 Heparin Sod Inj 1000 Unit/Ml Vial 10 Ml INDWELLCAT 04/02/25 13:32 3,000 unit PRN PRN Administration DIALYSIS Heparin Sodium (Porcine) 5,000 unit 03/23/25 21:00 03/23/25 20:38 Heparin Sod Inj 5000 Unit/Ml Vial SC 04/06/25 20:59 5,000 unit Q12HR [place] Administration Hydromorphone HCl 0.5 mg 03/23/25 14:00 03/23/25 18:30 Hydromorphone Inj 2 Mg/Ml Vial IVP 03/28/25 13:59 0.5 mg Q4HR [place] Administration Insulin Human Lispro 0 unit 03/22/25 11:30 03/23/25 20:40 Insulin Lispro (Admelog) 1 Unit/0.01 Ml Unit SC 04/21/25 11:29 Not Given ACHS [facility] Protocol Levalbuterol HCl 0.31 mg 03/20/25 12:15 03/23/25 20:16 Levalbuterol Rt 0.31 Mg/3 Ml Nebu INH 04/19/25 12:14 0.31 mg Q6HRRT [place] Administration Metoprolol Succinate 25 mg 03/22/25 09:00 03/23/25 20:39 Metoprolol Succinate Xl 25 Mg Tabcr PO 04/21/25 08:59 25 mg BID [place] Administration Midodrine 10 mg 03/19/25 18:19 Midodrine 5 Mg Tablet GT 04/18/25 21:59 TID PRN MAP below 65 Ondansetron HCl 4 mg 03/14/25 17:31 Ondansetron Inj 2 Mg/Ml Inj 2 Ml IV 04/13/25 17:30 Q6H PRN NAUSEA OR VOMITING Protocol Pantoprazole Sodium 40 mg 03/14/25 21:00 03/23/25 20:38 Pantoprazole Inj 40 Mg Vial IVP 04/13/25 20:59 40 mg BID [place] Administration Pharmacy Consult 1 each 03/22/25 15:15 Vancomycin Pharmacy To Dose 1 Each Each IV 04/21/25 15:14 QDAY PRN CONSULT Sodium Chloride 3 ml 03/17/25 19:00 03/23/25 20:16 Sodium Cl Rt Marjorie 3% 4 Ml Nebu (Non-Formulary) INH 04/16/25 18:59 3 ml Q6HRRT [facility] Administration Plan 49-year-old male with past medical history of DM2, hypertension, ESRD (HD /), HFpEF (EF 55% on 2021), and right BKA due to osteomyelitis was initially admitted to the ICU on 03/14/2025 for acute hypoxic respiratory failure, acute encephalopathy, and shock. He was subsequently extubated and downgraded to telemetry on 03/20/2025 for continuation of care. #SVT episodes #Afib, rate controlled #Elevated troponin, NSTEMI type II supply and demand, downtrended #Decompensated HFpEF (EF 45-50%) Patient s/p intubation and pressor support in ICU for shock, distributive secondary to sepsis versus cardiogenic. Patient initially presented to ED in SVT and required shock x1. Troponin initially 1.856 uptrended to 7.899 peak. Patient was treated for pneumonia. Patient was able to wean off pressors, extubated, now downgraded to tele. CT LER showed diffuse stenosis on the arteries of the LLE, occlusions in almost all major arteries. Echo done on 03/16/2025 showed LV appears normal with EF 45-50%. Septal dyskinesis is seen, RV appears normal with RVSP 50 mmHg. Mildly dilated LA & RA Mild mitral regurgitation Mild-Moderate TR. 03/21, patient had 2 rapid response events for SVT in the 170-200s which self converted in minutes. -Continue amiodarone 200 mg BID -Continue metoprolol succinate 25 mg BID -Maintain K >4.0 and Mag >2.0 -Continue dialysis per Nephro #Severe peripheral vascular disease #Right upper extremity limb ischemia #Left upper extremity limb ischemia #Left lower extremity limb ischemia Patient has history of right extremity BKA due to severe PAD. This admission after severe shock requiring pressor support patient subsequently developed ischemia of the right and left fingertips. Vascular surgeon stated that the patient is not a candidate at this time for revascularization, however stated that would discuss case with general surgeon. Likely upper extremity digits affected by vasopressor support in combination with severe PAD causing limb ischemia. -Later down the line consider extremity angiogram to visualize upper and lower extremity artery flow and possible need for stent, however patient must have bacteremia treated first -Continue aspirin 81 mg qday -Continue clopidogrel 75 mg qday #GPC bacteremia #Leukocytosis Patient tested for gram-positive cocci 2/2 blood cultures on 03/21/2025, first positive blood cultures this admission. Patient has not been febrile, however has had persistent leukocytosis. Patient subsequently getting all lines removed after receiving dialysis. -Repeat echo pending -Repeat blood cultures pending #Hypotension S/p shock weaned off pressors, multifactorial likely distributive and some component cardiogenic. -Continue midodrine 10 mg TID Rest of conditions to continue current management per primary team: #Acute hypoxic respiratory failure #Community-acquired pneumonia, Stenotrophomonas maltophilia #ESRD (HD on ) #History of type 2 diabetes #Respiratory acidosis, resolved #HAGMA, resolved #Lactic acidosis, resolved #Hyperkalemia, resolved #Shock liver, resolved #Possible GI bleed #Macrocytic anemia #Thrombocytopenia #Hematemesis, resolved #Hypoglycemia, resolved Patient was discussed with the Cardiology attending, Dr. Villalobos. Thank you for allowing us to participate in the care of this patient. Radha Tsai, PGY-2
[2025-03-23] MEDS: MELATONIN 3 MG TABLET PO (22:14)
[2025-03-24] VITALS (13 sets, daily range): BP systolic 97–126; BP diastolic 59–92; PULSE 81–101; RESP 15–22; TEMP 35.9–36.4; O2SAT 91–99; BMI 33.7
[2025-03-24] MEDS: LEVALBUTEROL RT 0.31 MG/3 ML NEBU INH ×4 (01:07→18:48)
[2025-03-24] MEDS: SODIUM CL RT SOL 3% 4 ML NEBU (NON-FORMULARY) 3 ML INH ×4 (01:07→18:48)
[2025-03-24] MEDS: HYDROmorphone INJ 2 MG/ML VIAL 0.5 MG IVP ×6 (02:10→22:15)
[2025-03-24] MEDS: HYDROcodone/APAP 10/325 TAB PO (05:37)
[2025-03-24 06:04] LABS: Basophils % (Auto) 0 % (0-2.5); Eosinophils # (Auto) 0.1 Thou/mm3 (0.0-0.5); Eosinophils % (Auto) 0 % (0-10); Hematocrit 28.4 % (41.0-53.0); Immature Granulocytes % (Auto) 1 % (0-0); Immature Granulocytes Auto 0.23 Thou/mm3 (0.00-0.00); Lymphocytes # (Auto) 0.7 Thou/mm3 (1.0-4.8); Lymphocytes % (Auto) 4 % (10-50); Mean Corpuscular Hemoglobin 31.2 pg (25.0-35.0); Mean Corpuscular Volume 101 fL (80-100); Monocytes # (Auto) 1.4 Thou/mm3 (0.0-0.8); Monocytes % (Auto) 9 % (0-12); Neutrophils # (Auto) 13.6 Thou/mm3 (1.8-7.7); Neutrophils % (Auto) 85 % (37-80); Nucleated Red Blood Cell % 0 /100 WBC (0); Platelet Count 94 Thou/mm3 (140-440); RDW Standard Deviation 65.1 fL (35.1-43.9); Red Blood Count 2.82 Miln/mm3 (4.50-5.90); White Blood Count 16.1 Thou/mm3 (3.8-10.6)
[2025-03-24 06:30] LABS: Alanine Aminotransferase 215 U/L (10-49); Albumin, Serum 3.1 gm/dL (3.5-5.0); Albumin/Globulin Ratio 1.1 (1.2-2.2); Alkaline Phosphatase 160 U/L (46-116); Anion Gap 9 (7-16); Aspartate Amino Transferase 29 U/L (0-34); BUN/Creatinine Ratio 9 Ratio (12-20); Bilirubin,Total 1.1 mg/dL (0.3-1.2); Blood Urea Nitrogen 47 mg/dL (9-23); Calcium 7.9 mg/dL (8.3-10.6); Calcium (Corrected) 8.6 mg/dL (8.5-10.1); Carbon Dioxide 25.9 mMol/L (20.0-31.0); Chloride 99 mMol/L (98-107); Creatinine (Component) 5.1 mg/dL (0.6-1.3); Estimated Creatinine Clearance 21.8 mL/min (>60); Globulin 2.7 gm/dL (2.3-3.5); Glucose 96 mg/dL (74-106); Osmolality,Calculated 280 (275-295); Potassium 4.8 mMol/L (3.4-5.1); Sodium 134 mMol/L (136-145); Total Protein 5.8 gm/dL (5.7-8.2); Vancomycin,Random 14.5 mcg/mL; eGFR 13 See Note
[2025-03-24 06:40] LABS: Hemoglobin 8.8 g/dL (13.5-16.0)
[2025-03-24] MEDS: VANCOMYCIN/NS 500 MG IVPB 100 ML 120 MG IV (10:06)
[2025-03-24] MEDS: ASPIRIN 81 MG CHEW GT (10:11)
[2025-03-24] MEDS: HEPARIN SOD INJ 5000 UNIT/ML VIAL SC ×2 (10:11→20:35)
[2025-03-24] MEDS: PANTOPRAZOLE INJ 40 MG VIAL IVP ×2 (10:11→20:34)
[2025-03-24] MEDS: METOPROLOL SUCCINATE XL 25 MG TABCR PO ×2 (10:12→20:31)
[2025-03-24] MEDS: AMIODARONE HCL 200 MG TABLET GT ×2 (10:12→20:34)
[2025-03-24] MEDS: CLOPIDOGREL BISULFATE 75 MG TABLET GT (10:13)
[2025-03-24] MEDS: oxyCODONE/APAP 5/325 TABLET 1 TAB PO ×2 (12:09→18:13)
--- NOTE | 2025-03-24 14:17 | ESPR_ITS ---
Subjective Subjective Interval history: pt here or 10d. bc pos for gpc after several days. now known to be coag neg. no fever. mild leucocytosis on hd. esrd. pvd . prior amputation noted. line removed. echo neg. code status noted. Exam Vital Signs Temp Pulse Resp BP Pulse Ox O2 Del Method O2 Flow Rate 97.0 F 91 20 126/76 93 L Oxy Mask 5 03/24/25 12:00 03/24/25 12:42 03/24/25 12:42 03/24/25 12:00 03/24/25 12:42 03/24/25 12:00 03/24/25 12:42 FiO2 30 03/20/25 13:21 Narrative Exam ischemic appearing limbs. for surgery tomorrow. Objective - Internal Medicine Labs 03/24/25 05:30 03/24/25 05:30 Labs: Laboratory Results - last 24 hr 03/24/25 05:30 WBC 16.1 H RBC 2.82 L Hgb 8.8 L Hct 28.4 L MCV 101 H MCH 31.2 MCHC 31.0 RDW Std Deviation 65.1 H Plt Count 94 L D Neut % (Auto) 85 H Lymph % (Auto) 4 L [place] % (Auto) 9 Eos % (Auto) 0 Baso % (Auto) 0 Neut # (Auto) 13.6 H Lymph # (Auto) 0.7 L [place] # (Auto) 1.4 H Eos # (Auto) 0.1 Baso # (Auto) 0.0 Immature Gran # (Auto) 0.23 H Absolute Nucleated RBC 0.00 Immature Gran % 1 H Nucleated RBC % 0 Sodium 134 L Potassium 4.8 Chloride 99 Carbon Dioxide 25.9 Anion Gap 9 BUN 47 H Creatinine 5.1 H* D Estim Creat Clear Calc 21.8 L eGFR 13 L* BUN/Creatinine Ratio 9 L Glucose 96 Calculated Osmolality 280 Calcium 7.9 L Corrected Calcium 8.6 Total Bilirubin 1.1 AST 29 ALT 215 H Alkaline Phosphatase 160 H Total Protein 5.8 Albumin 3.1 L Globulin 2.7 Albumin/Globulin Ratio 1.1 L Random Vancomycin 14.5 ABG Interpretation ABG results: 03/14/25 03/14/25 03/14/25 14:44 16:44 18:53 ABG pH 7.03 L* 7.04 L* 7.10 L* ABG pCO2 43 50 H 46 ABG pO2 86 128 H D 57 L* D ABG HCO3 11 L 13 L 14 L ABG O2 Saturation 91 97 78 L ABG Base Excess -19 L -17 L -15 L VBG pH VBG pCO2 VBG pO2 VBG Base Excess 03/14/25 03/15/25 03/15/25 21:20 05:07 12:28 ABG pH 7.21 L D 7.41 D ABG pCO2 32 D 31 L ABG pO2 116 H D 74 L D ABG HCO3 13 L 20 ABG O2 Saturation 97 95 ABG Base Excess -14 L -4 L VBG pH 7.43 VBG pCO2 34 L VBG pO2 37 VBG Base Excess -1 03/16/25 03/16/25 03/16/25 04:51 11:48 19:30 ABG pH 7.46 H 7.22 L D 7.38 D ABG pCO2 29 L 66 H D 48 D ABG pO2 78 L 79 L 236 H D ABG HCO3 21 27 H 29 H ABG O2 Saturation 96 91 100 H ABG Base Excess -2 -2 3 VBG pH VBG pCO2 VBG pO2 VBG Base Excess 03/17/25 03/18/25 03/19/25 04:53 09:27 04:46 ABG pH 7.38 7.35 ABG pCO2 49 H 48 ABG pO2 78 L D 92 ABG HCO3 29 H 26 ABG O2 Saturation 95 98 ABG Base Excess 3 0 VBG pH 7.34 VBG pCO2 54 D VBG pO2 34 VBG Base Excess 2 Assessment & Plan A&P Narrative possible iv cath bacteremia vs contamination of bc. ckd 5 pvd chf with normal ef noted. but 3+ dd noted. had ischemia of limbs originally but that has stabilized. hx idu noted. will treat for line associated bacteremia with vanco with hd thru 04/05 ok for new tdc at your convenience role of levaquin uncertain. had it for a few days and it was stopped. with no resp sx, ok to leave off for now s malto is a debatable pathogen. Time Spent With Patient Time: Total time spent is greater than 50% in coordination of care (as documented) at patient's floor/unit and/or counseling patient:
--- NOTE | 2025-03-24 14:26 | PC.SS ---
SS follow up note; Positive for GPC Bacteremia, pending Dr. Villegas's Rec's.
--- NOTE | 2025-03-24 14:45 | ESPR_ITS ---
<Statement entered by Keyur Huston MD - 03/26/25 08:14> I reviewed above note and agree with findings and plans. I have also personally examined the patient with medicine team and went over assessment and plan with medical team including actuarial intern and resident physician. <Statement entered by Rafael Taveras MD - 03/24/25 15:34> Patient has GPC bacteremia sensitive to vanc. ID recommends removing lines. We will do dialysis tomorrow physician/internist and then new team can remove central line and triple lumen line. Patient will need new dialysis line. Pending hospice. Case discussed with team. Rafael Taveras MD PGY3. Documentation for date of: 03/24/25 Subjective Subjective Interval history: No acute overnight events reported. Patient seen and examined at bedside this morning. Vitals are stable and pt is saturating on 10L O2 via oxymask. Patient has GPC bacteremia that grew staph hemolyticus, pending infectious disease recommendations regarding removing the line or not. Currently patient has a central line and a dialysis catheter. Will need to place an EJ on both central lines are removed as patient currently does not have any peripheral lines. Patient continues to have severe pain in his fingers and toes where ischemic changes are noted. Will change the [place] to Percocet and will increase the dose of Dilaudid. Before discharge patient will need another goals of care discussion as currently SNF is not excepting the patient with hospice. Patient was to be on hospice will need to go home with hospice. Repeat echo showed no vegetations were detected only calcification of the aortic valve are noted. Will continue vancomycin until 04/05. Exam Vital Signs Temp Pulse Resp BP Pulse Ox O2 Del Method O2 Flow Rate 97.0 F 91 20 126/76 93 L Oxy Mask 5 03/24/25 12:00 03/24/25 12:42 03/24/25 12:42 03/24/25 12:00 03/24/25 12:42 03/24/25 12:00 03/24/25 12:42 FiO2 30 03/20/25 13:21 Narrative Exam GENERAL: A&Ox3 . Awake, Not in acute distress NEURO: no focal neurological deficits noted HEENT: Atraumatic, Normocephalic. mucous membranes moist. Eyes open, symmetrical, & clear HEART: Normal Heart Sounds LUNGS: Clear to auscultation with no wheezing or crackles. ABDOMEN: soft, non-distended, non-tender, bowel sounds heard, no guarding or rebound tenderness SKIN: ISCHEMIC CHANGES NOTED, necrotic changes at the tips of fingers bilaterally in UE and Left LE EXTREMITIES: Right BKA with cyanotic and ischemic changes at the stump Objective Labs 03/24/25 05:30 03/24/25 05:30 Labs: Laboratory Results - last 24 hr 03/24/25 05:30 WBC 16.1 H RBC 2.82 L Hgb 8.8 L Hct 28.4 L MCV 101 H MCH 31.2 MCHC 31.0 RDW Std Deviation 65.1 H Plt Count 94 L D Neut % (Auto) 85 H Lymph % (Auto) 4 L Harmon % (Auto) 9 Eos % (Auto) 0 Baso % (Auto) 0 Neut # (Auto) 13.6 H Lymph # (Auto) 0.7 L Harmon # (Auto) 1.4 H Eos # (Auto) 0.1 Baso # (Auto) 0.0 Immature Gran # (Auto) 0.23 H Absolute Nucleated RBC 0.00 Immature Gran % 1 H Nucleated RBC % 0 Sodium 134 L Potassium 4.8 Chloride 99 Carbon Dioxide 25.9 Anion Gap 9 BUN 47 H Creatinine 5.1 H* D Estim Creat Clear Calc 21.8 L eGFR 13 L* BUN/Creatinine Ratio 9 L Glucose 96 Calculated Osmolality 280 Calcium 7.9 L Corrected Calcium 8.6 Total Bilirubin 1.1 AST 29 ALT 215 H Alkaline Phosphatase 160 H Total Protein 5.8 Albumin 3.1 L Globulin 2.7 Albumin/Globulin Ratio 1.1 L Random Vancomycin 14.5 ABG Interpretation ABG results: 03/14/25 03/14/25 03/14/25 14:44 16:44 18:53 ABG pH 7.03 L* 7.04 L* 7.10 L* ABG pCO2 43 50 H 46 ABG pO2 86 128 H D 57 L* D ABG HCO3 11 L 13 L 14 L ABG O2 Saturation 91 97 78 L ABG Base Excess -19 L -17 L -15 L VBG pH VBG pCO2 VBG pO2 VBG Base Excess 03/14/25 03/15/25 03/15/25 21:20 05:07 12:28 ABG pH 7.21 L D 7.41 D ABG pCO2 32 D 31 L ABG pO2 116 H D 74 L D ABG HCO3 13 L 20 ABG O2 Saturation 97 95 ABG Base Excess -14 L -4 L VBG pH 7.43 VBG pCO2 34 L VBG pO2 37 VBG Base Excess -1 03/16/25 03/16/25 03/16/25 04:51 11:48 19:30 ABG pH 7.46 H 7.22 L D 7.38 D ABG pCO2 29 L 66 H D 48 D ABG pO2 78 L 79 L 236 H D ABG HCO3 21 27 H 29 H ABG O2 Saturation 96 91 100 H ABG Base Excess -2 -2 3 VBG pH VBG pCO2 VBG pO2 VBG Base Excess 03/17/25 03/18/25 03/19/25 04:53 09:27 04:46 ABG pH 7.38 7.35 ABG pCO2 49 H 48 ABG pO2 78 L D 92 ABG HCO3 29 H 26 ABG O2 Saturation 95 98 ABG Base Excess 3 0 VBG pH 7.34 VBG pCO2 54 D VBG pO2 34 VBG Base Excess 2 Quality Measures Quality Measures VTE prophylaxis Assessment & Plan Assessment Current Active Medications: Generic Name Dose Route Start Last Admin Trade Name Freq PRN Reason Stop Dose Admin Acetaminophen 650 mg 03/20/25 11:35 03/21/25 06:39 Acetaminophen 325 Mg Tablet PO 04/19/25 11:34 650 mg Q6HR PRN Administration pain and Fever >100.4 Protocol Amiodarone HCl 200 mg 03/19/25 21:00 03/24/25 10:12 Amiodarone Hcl 200 Mg Tablet GT 04/18/25 20:59 200 mg BID MONTSERRAT Administration Aspirin 81 mg 03/16/25 09:00 03/24/25 10:11 Aspirin 81 Mg Chew GT 04/15/25 08:59 81 mg QDAY [place] Administration Clopidogrel Bisulfate 75 mg 03/15/25 10:53 03/24/25 10:13 Clopidogrel Bisulfate 75 Mg Tablet GT 04/14/25 10:29 75 mg QDAY MON[place]AT Administration Dextrose 25 ml 03/14/25 20:38 03/20/25 23:30 Dextrose 50%-Water Inj 50 Ml Syringe IV 04/13/25 20:37 25 ml Q15MIN PRN Administration BG 50-70 responsive npo pt Dextrose 50 ml 03/14/25 20:38 Dextrose 50%-Water Inj 50 Ml Syringe IV 04/13/25 20:37 Q15MIN PRN BG <50 OR BG <70 & pt unresponsive Glucagon 1 mg 03/14/25 17:36 Glucagon Inj 1 Mg Vial IM Q15MIN PRN BG <70, and no IV access Heparin Sodium (Porcine) 3,000 unit 03/19/25 13:33 03/23/25 18:20 Heparin Sod Inj 1000 Unit/Ml Vial 10 Ml INDWELLCAT 04/02/25 13:32 3,000 unit PRN PRN Administration DIALYSIS Heparin Sodium (Porcine) 5,000 unit 03/23/25 21:00 03/24/25 10:11 Heparin Sod Inj 5000 Unit/Ml Vial SC 04/06/25 20:59 5,000 unit Q12HR MON[place]ERRAT Administration Hydromorphone HCl 0.5 mg 03/23/25 14:00 03/24/25 14:05 Hydromorphone Inj 2 Mg/Ml Vial IVP 03/28/25 13:59 0.5 mg Q4HR MONTSERRAT Administration Insulin Human Lispro 0 unit 03/22/25 11:30 03/24/25 11:30 Insulin Lispro (Admelog) 1 Unit/0.01 Ml Unit SC 04/21/25 11:29 Not Given ACHS MONTSERRAT Protocol Levalbuterol HCl 0.31 mg 03/20/25 12:15 03/24/25 12:41 Levalbuterol Rt 0.31 Mg/3 Ml Nebu INH 04/19/25 12:14 0.31 mg Q6HRRT [place]AT Administration Metoprolol Succinate 25 mg 03/22/25 09:00 03/24/25 10:12 Metoprolol Succinate Xl 25 Mg Tabcr PO 04/21/25 08:59 25 mg BID MON[place]AT Administration Midodrine 10 mg 03/19/25 18:19 Midodrine 5 Mg Tablet GT 04/18/25 21:59 TID PRN MAP below 65 Ondansetron HCl 4 mg 03/14/25 17:31 Ondansetron Inj 2 Mg/Ml Inj 2 Ml IV 04/13/25 17:30 Q6H PRN NAUSEA OR VOMITING Protocol Oxycodone/Acetaminophen 1 tab 03/24/25 12:00 03/24/25 12:09 Oxycodone/Apap 5/325 Tablet PO 03/29/25 11:59 1 tab Q6HR PRN Administration BREAKTHROUGH PAIN 4-10 Pantoprazole Sodium 40 mg 03/14/25 21:00 03/24/25 10:11 Pantoprazole Inj 40 Mg Vial IVP 04/13/25 20:59 40 mg BID MONTSERRAT Administration Sodium Chloride 3 ml 03/17/25 19:00 03/24/25 12:41 Sodium Cl Rt Marjorie 3% 4 Ml Nebu (Non-Formulary) INH 04/16/25 18:59 3 ml Q6HRRT MON[place]AT Administration Plan Mr. Mcclain is a 49 years old male with PMH of DM2, hypertension, ESRD (HD ), HFpEF (EF 55% on 2021), and right BKA due to osteomyelitis BIBA to the ED due to AMS, was intubated and started on pressors and was admitted to the ICU on 03/14/2025 for management of shock of unknown etiology and was started on IV antibiotics. On 03/17 his sputum culture grew stenotrophomonas maltophilia and antibiotics were changed to levofloxacin. He was extubated and downgraded to telemetry on 03/20/2025 for continuation of care. #Staph Hemolyticus bacteremia #CLABSI - Patient tested for gram-positive cocci (staph hymolyticus ) 2/2 blood blood cultures on 03/21/2025 Plan - Repeat blood cultures were sent on 03/22/2025, have no growth at 24 hours - Vancoymycin started 03/23- 04/05 - Repeat echocardiogram negative for vegetations and calcification of AV is noted - Corporate Tutor Dr. Pleitez is ok with discontinuation dailysis cath - Pt will undergo dialysis in the morning (arrangements have been made) and then both central lines need to be removed and EJ will need to be placed- all tomorrow (03/24) -consult to infectious disease specialist Dr. Villegas, appreciate recommendations #A-fib with RVR, rate controlled Patient again went into SVT last night and was shocked again, but on repeat EKG showed to be in A-fib RVR. Patient again went into SVT and received adenosine 6mg x1 and adenosine 12mg x1 before being cardioverted. Repeat EKG showed what appears to be MAT. [id number] score of 3 points indicating 3.2% risk of stroke per year HAS-BLED score of 5 points Plan: - Continue amiodarone 200mg BID -Metoprolol succinate 25mg daily -Keep Potassium >4 and Mg >2 -Unable to start pt on anticoagulation due to acute blood loss anemia -Lubrication Worker Dr. Villalobos following the case, and appreciate his recommendations #Possible acute vs chronic limb ischemia. #Peripheral Vascular disease, severe Abdomen CTA with runoff that showed occlusion of multiple arteries including the left radial, gluteal, and tibial arteries as well as 90% stenosis of the left superficial femoral artery Also showed 80% stenosis of right superficial femoral artery. Overnight ICU team spoke with vascular surgeon at [facility] who stated that at this time patient was not a candidate for transfer for revascularization. Patient understands that he may lose multiple digits and even his left lower foot. Most likely needs to follow-up with vascular surgeon as an outpatient. Plan: - Nitroglycerin topical ointment. - Will continue with aspirin and Plavix for now -Pt will need outpatient follow up with vascular surgeon #Acute hypoxic respiratory failure, improved. #Stenotrophomonas maltophilia pneumonia. #Respiratory acidosis, resolved. #Septic shock, resolved. Intubated on 03/14/2025. Follow up Chest x-ray shows significant improvement. Sputum grew stenotrophomonas maltophilia. Extubated on 03/20/2025. Zosyn 03/14/2025-03/17/2025 Vancomycin 03/14/2025 - 03/15/2025. Plan: - Continue hypertonic saline inhaled solution and chest physiotherapy. - Continue levaquin 500mg q48hr 03/17/2025- 03/21 -Discontinued levaquin due to increased risk of QT prolonging which can cause Vfib. - Midodrine 10mg TID as needed. #Troponinemia - resolved Troponins peaked at 7.899 and down trended to 7.04. EKG done overnight that shows some ST depressions in lead II and V3 to V6. Echo showed EF of 45 to 50% and septal dyskinesis. Cardiology consulted, appreciate recommendations. Plan: - Will continue on aspirin, Plavix. #HFrEF (EF 45-50% on 2024). -Given positive U tox for Opioids, amphetamines, marijuana -Echo done 03/16: LV appears normal with EF 45-50%. Septal dyskinesis is seen. RV appears normal with RVSP 50 mmHg. Mildly dilated LA & RA Mild mitral regurgitation Mild-Moderate TR Plan: - Will continue with hemodialysis with fluid removal. - Daily weights. - Strict JENN's. - fluid restriction. #ESRD (HD on ). #HAGMA, resolved. #Lactic acidosis, resolved. Consult nephrology, appreciate recommendations Plan: - Continue hemodialysis as scheduled. -Corporate Tutor Dr. Pleitez following, appreciate recommendations - Avoid nephrotoxic agents. - Renally dose medications. #Acute blood loss Anemia #Hematemesis. #Macrocytic anemia. #Thrombocytopenia. Patient's hemoglobin was downtrending from 11.9 on admission to 7.8 today. PLT 39. Plan: - continue to monitor daily CBC - transfuse if Hgb < 7. #Transaminitis. #Hyperbilirubinemia #Hepatomegaly. Possible liver failure due to methamphetamine use? Could be due to shock liver versus hypoxia versus drug-induced. Hepatitis panel negative and abdominal ultrasound that shows some hepatomegaly with possible cirrhosis versus hepatocellular disease. Plan: - continue monitoring daily labs #Hx of DM2. #Hypoglycemia, resolved. Plan: - ISS. - Hypoglycemia protocol ordered. Hospital Maintenance: Diet: renal diet DVT ppx: Heparin 5000 SC Q12H GI ppx: Protonix IV. IV lines: PIV, CIV (LIJ/R SubC). Cruz: cruz cath. Code status: DNR. Assessment and plan discussed with my senior resident Dr. Taveras & attending physician Dr. Betzaida Pacheco (PGY-1)- Internal medicine resident
--- NOTE | 2025-03-24 15:27 | PC.NURSE ---
Spoke with Dr. Pacheco, she is requesting that patient receive dialysis first thing in the am so central lines can be removed and new inserted. Dialysis nurse Tess informed per doctors request. Will pass on to copy messenger for day shift follow up.
--- NOTE | 2025-03-24 19:35 | ESCONSULT_ITS ---
RE: CLEMENTE PERAZA : 1975 DATE OF CONSULTATION: 03/24/2025 REFERRING PHYSICIAN: Dr. Mckeon. REASON FOR CONSULTATION: Ischemic extremities, coronary artery disease, diabetes, and chronic kidney disease with nicotine dependence and possible drug use. HISTORY OF PRESENT ILLNESS: The patient is an unfortunate 49-year-old who came in and reports that he had a heart attack on Saturday of last week. He was actually admitted on , so it would have been the that he had a fever and had a heart attack. This is unusual. He does have some profound ischemia, but his ejection fraction is okay. He has a past history of methamphetamine use according to records with a positive drug screen. He did not admit to any substance use at all during the interview. His apparently uses some as well. He lives with his . Surgical history is as noted. He may have some surgery before this is over. He has ischemic-appearing extremities, particularly the upper extremity with some ischemia noted on the lower extremities as well. 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 That is well healed with the exception of the ischemic areas as noted. ASSESSMENT: 1. Ischemic extremities without any positive blood cultures. This problem suggests more of a problem with injection drug use than one of antibiotic shortage, but if you wish to treat him in a long time, you can go ahead and do so. Personally I would probably use a shorter course of antibiotics treating him with vancomycin for the IV with weekly cbc, renal panel, esr through 04/05. I will check on him superficially, looking forward. DT: 17:00:35 TT: 19:28:00 Ref: [id number] - TID: [id number] MTDD
--- NOTE | 2025-03-24 20:07 | ESPR_ITS ---
RE: CLEMENTE PERAZA : 1975 DATE OF SERVICE: 03/24/2025 SUBJECTIVE: Clemente Peraza _[id number] male with multiple medical problems, initially admitted to the hospital with hypoxic respiratory failure. There was hypotension, cardiogenic shock, what appeared to be septic and cardiogenic shock improved initially, successfully extubated. The patient developed severe gangrenous changes in the right hand as well as the left foot, extensive vascular disease as described in the past. Of note, he has developed gram positive coccemia as well received antibiotic. Echo did not show any vegetations to suspect endocarditis. Responded to antibiotic. White count is coming down. He still has significant dry gangrenous changes of the fingers, affecting right hand, severe black discoloration as well as left lower extremity gangrenous changes are seen. OBJECTIVE: Vital Signs: Exam shows her blood pressure 121/90, pulse rate 100 Neck: Supple. Lungs: Decreased breath sounds. Heart: Heart sounds regular. Abdomen: _distended soft Extremities: Extensive gangrenous changes in the right hand as well as left lower extremity foot and some skin changes of the right lower extremity below the amputation stump. IMPRESSION: 1. Status post acute non-ST segment elevation myocardial infarction, NSTEMI possible type 2 troponin versus NSTEMI. 2. Extensive atherosclerotic cardiovascular disease with bilateral femoral artery occlusions and distal trifurcation disease with gangrenous changes. 3. Gram positive coccemia . 4. Chronic kidney disease, acute renal failure, on hemodialysis. RECOMMENDATIONS: The patient should be continued on antibiotic therapy. For now, no plans for coronary angiogram as he has multiple issues including gangrenous changes. Left ventricular function is reasonably preserved. Hence, if the patient does require any minor surgical procedures, I will go ahead and clear him for procedure. DT: 18:25:34 TT: 20:01:00 Ref: [id number] - TID: [id number] MTDVianca
--- NOTE | 2025-03-24 20:58 | ESCONSULT_ITS ---
<Statement entered by Mitchell Villegas MD - 03/26/25 09:26> pt seen with resident. all findings confirmed. HPI Data of Consult Consult date: 03/24/25 Requesting Physician: Keyur Huston MD Admitting Provider: Yessi Putnam MD Attending Provider: Keyur Huston MD Primary Care Provider: Margarita Carolina PA-C Consult Narrative History of present illness: Patient is a 49-year-old male with past medical history of type 2 diabetes, hypertension, ESRD (/), HFpEF EF of 50 to 55% (February 2025) and right below- knee amputation due to uncontrolled diabetes and osteomyelitis who came to [facility] on March 22, 2025 with a chief complaint of altered mentation. Patient was initially admitted to the ICU due to inability to protect airway and history was initially given by his at bedside. Prior to coming to the hospital patient was found to be in SVT by EMS leading to the deliverance of synchronized cardioversion and he was also found to be extremely hypoglycemic with blood sugar of 23 requiring the use of D50. During the course of his hospitalization patient required CRRT and patient had CT angio of the lower extremity done which revealed occlusion of the tibial artery. Vascular surgery was consulted at neighboring hospital who stated that patient currently is not a surgical candidate for revascularization due to advanced disease. Patient improved on antibiotic therapy and chemical pressors were discontinued and he was downgraded to telemetry for further management of his osteomyelitis and cellulitis infectious disease was consulted due to the fact that patient had staph hemolyticus in his blood cultures. Family history: Cancer (unknown) Social history: Patient lives with his . Does not appear to be able to work. U tox positive for methamphetamine, opioids, and marijuana Allergy history: No known drug allergies Surgical history previous right BKA. cc:: cc: Keyur Huston MD Review of Systems Review of Systems Systems Reviewed: All systems reviewed, normal except as documented Exam Vital Signs Temp Pulse Resp BP Pulse Ox O2 Del Method O2 Flow Rate 97.4 F 91 22 H 108/64 99 Nasal Cannula 5 03/24/25 16:00 03/24/25 20:34 03/24/25 18:49 03/24/25 20:34 03/24/25 18:49 03/24/25 16:00 03/24/25 18:49 FiO2 30 03/20/25 13:21 Narrative Exam GENERAL: A&Ox3 . Awake, Not in acute distress NEURO: no focal neurological deficits noted HEENT: Atraumatic, Normocephalic. mucous membranes moist. Eyes open, symmetrical, & clear HEART: Normal Heart Sounds LUNGS: Clear to auscultation with no wheezing or crackles. ABDOMEN: soft, non-distended, non-tender, bowel sounds heard, no guarding or rebound tenderness SKIN: ISCHEMIC CHANGES NOTED, necrotic changes at the tips of fingers bilaterally in UE and Left LE EXTREMITIES: Right BKA with cyanotic and ischemic changes at the stump Results Labs 03/24/25 05:30 03/24/25 05:30 Labs: Short CBC 03/24/25 Range/Units 05:30 WBC 16.1 H (3.8-10.6) Thou/mm3 Hgb 8.8 L (13.5-16.0) g/dL Hct 28.4 L (41.0-53.0) % Plt Count 94 L D (140-440) Thou/mm3 BMP 03/24/25 05:30 Sodium 134 L Potassium 4.8 Chloride 99 Carbon Dioxide 25.9 BUN 47 H Creatinine 5.1 H* D Glucose 96 Calcium 7.9 L Liver Function 03/24/25 Range/Units 05:30 Total Bilirubin 1.1 (0.3-1.2) mg/dL AST 29 (0-34) U/L ALT 215 H (10-49) U/L Alkaline Phosphatase 160 H (46-116) U/L Albumin 3.1 L (3.5-5.0) gm/dL ABG Interpretation ABG results: 03/14/25 03/14/25 03/14/25 14:44 16:44 18:53 ABG pH 7.03 L* 7.04 L* 7.10 L* ABG pCO2 43 50 H 46 ABG pO2 86 128 H D 57 L* D ABG HCO3 11 L 13 L 14 L ABG O2 Saturation 91 97 78 L ABG Base Excess -19 L -17 L -15 L VBG pH VBG pCO2 VBG pO2 VBG Base Excess 03/14/25 03/15/25 03/15/25 21:20 05:07 12:28 ABG pH 7.21 L D 7.41 D ABG pCO2 32 D 31 L ABG pO2 116 H D 74 L D ABG HCO3 13 L 20 ABG O2 Saturation 97 95 ABG Base Excess -14 L -4 L VBG pH 7.43 VBG pCO2 34 L VBG pO2 37 VBG Base Excess -1 03/16/25 03/16/25 03/16/25 04:51 11:48 19:30 ABG pH 7.46 H 7.22 L D 7.38 D ABG pCO2 29 L 66 H D 48 D ABG pO2 78 L 79 L 236 H D ABG HCO3 21 27 H 29 H ABG O2 Saturation 96 91 100 H ABG Base Excess -2 -2 3 VBG pH VBG pCO2 VBG pO2 VBG Base Excess 03/17/25 03/18/25 03/19/25 04:53 09:27 04:46 ABG pH 7.38 7.35 ABG pCO2 49 H 48 ABG pO2 78 L D 92 ABG HCO3 29 H 26 ABG O2 Saturation 95 98 ABG Base Excess 3 0 VBG pH 7.34 VBG pCO2 54 D VBG pO2 34 VBG Base Excess 2 Quality Measures Quality Measures VTE prophylaxis Medications Home Medications and Allergies Home Medications ?Medication ?Instructions ?Recorded ?Confirmed ?Type insulin aspart U-100 100 unit/mL 12 unit subcut BID 06/26/23 History (3 mL) subcutaneous pen (Novolog FlexPen U-100 Insulin aspart) cyclobenzaprine 10 mg tablet 10 mg PO HS 06/19/23 080 01/17 History loperamide 2 mg capsule 2 mg PO Q6H PRN Diarrhea 06/26/23 History ibuprofen 800 mg tablet 800 mg PO Q8H PRN Pain 06/2606/26/23 History Allergies Allergy/AdvReac Type Severity Reaction Status Date / Time No Known Allergies Allergy Verified 06/27/23 12:19 Visit Medications Acetaminophen (Acetaminophen 325 Mg Tablet) 650 mg PO Q6HR PRN; Protocol PRN Reason: pain and Fever >100.4 Stop: 04/19/25 11:34 Last Admin: 03/21/25 06:39 Dose: 650 mg Amiodarone HCl (Amiodarone Hcl 200 Mg Tablet) 200 mg GT BID [place] Stop: 04/18/25 20:59 Last Admin: 03/24/25 20:34 Dose: 200 mg Aspirin (Aspirin 81 Mg Chew) 81 mg GT QDAY [facility] [place] Stop: 04/15/25 08:59 Last Admin: 03/24/25 10:11 Dose: 81 mg Clopidogrel Bisulfate (Clopidogrel Bisulfate 75 Mg Tablet) 75 mg GT QDAY [facility] [place] Stop: 04/14/25 10:29 Last Admin: 03/24/25 10:13 Dose: 75 mg Dextrose (Dextrose 50%-Water Inj 50 Ml Syringe) 25 ml IV Q15MIN PRN PRN Reason: BG 50-70 responsive npo pt Stop: 04/13/25 20:37 Last Admin: 03/20/25 23:30 Dose: 25 ml Dextrose (Dextrose 50%-Water Inj 50 Ml Syringe) 50 ml IV Q15MIN PRN PRN Reason: BG <50 OR BG <70 & pt unresponsive Stop: 04/13/25 20:37 Glucagon (Glucagon Inj 1 Mg Vial) 1 mg IM Q15MIN PRN PRN Reason: BG <70, and no IV access Heparin Sodium (Porcine) (Heparin Sod Inj 1000 Unit/Ml Vial 10 Ml) 3,000 unit INDWELLCAT PRN PRN PRN Reason: DIALYSIS Stop: 04/02/25 13:32 Last Admin: 03/23/25 18:20 Dose: 3,000 unit Heparin Sodium (Porcine) (Heparin Sod Inj 5000 Unit/Ml Vial) 5,000 unit SC Q12HR [facility] [place] Stop: 04/06/25 20:59 Last Admin: 03/24/25 20:35 Dose: 5,000 unit Hydromorphone HCl (Hydromorphone Inj 2 Mg/Ml Vial) 0.5 mg IVP Q4HR [facility] [place] Stop: 03/28/25 13:59 Last Admin: 03/24/25 18:13 Dose: 0.5 mg Insulin Human Lispro (Insulin Lispro (Admelog) 1 Unit/0.01 Ml Unit) 0 unit SC ACHS [facility] [place]; Protocol Stop: 04/21/25 11:29 Last Admin: 03/24/25 20:21 Dose: Not Given Levalbuterol HCl (Levalbuterol Rt 0.31 Mg/3 Ml Nebu) 0.31 mg INH Q6HRRT [facility] [place] Stop: 04/19/25 12:14 Last Admin: 03/24/25 18:48 Dose: 0.31 mg Metoprolol Succinate (Metoprolol Succinate Xl 25 Mg Tabcr) 25 mg PO BID [facility] [place] Stop: 04/21/25 08:59 Last Admin: 03/24/25 20:31 Dose: 25 mg Midodrine (Midodrine 5 Mg Tablet) 10 mg GT TID PRN PRN Reason: MAP below 65 Stop: 04/18/25 21:59 Ondansetron HCl (Ondansetron Inj 2 Mg/Ml Inj 2 Ml) 4 mg IV Q6H PRN; Protocol PRN Reason: NAUSEA OR VOMITING Stop: 04/13/25 17:30 Oxycodone/Acetaminophen (Oxycodone/Apap 5/325 Tablet) 1 tab PO Q6HR PRN PRN Reason: BREAKTHROUGH PAIN 4-10 Stop: 03/29/25 11:59 Last Admin: 03/24/25 18:13 Dose: 1 tab Pantoprazole Sodium (Pantoprazole Inj 40 Mg Vial) 40 mg IVP BID [facility] [place] Stop: 04/13/25 20:59 Last Admin: 03/24/25 20:34 Dose: 40 mg Pharmacy Consult (Vancomycin Pharmacy To Dose 1 Each Each) 1 each IV QDAY [facility] [place] Stop: 04/23/25 16:59 Last Admin: 03/24/25 18:12 Dose: Not Given Sodium Chloride (Sodium Cl Rt Marjorie 3% 4 Ml Nebu (Non-Formulary)) 3 ml INH Q6HRRT [facility] [place] Stop: 04/16/25 18:59 Last Admin: 03/24/25 18:48 Dose: 3 ml Discontinued Medications Acetaminophen (Acetaminophen Supp 650 Mg Supp) 650 mg DE Q6HR PRN PRN Reason: FEVER>101.5 Stop: 04/13/25 17:30 Hydrocodone Bitart/Acetaminophen (Hydrocodone/Apap 5/325 Tablet) 1 tab PO Q6HR PRN PRN Reason: Pain 4-10 Stop: 03/25/25 19:41 Last Admin: 03/21/25 14:56 Dose: 1 tab Hydrocodone Bitart/Acetaminophen (Hydrocodone/Apap 5/325 Tablet) 1 tab PO Q6HR PRN PRN Reason: Pain 4-6 Stop: 03/25/25 19:41 Last Admin: 03/23/25 08:23 Dose: 1 tab Hydrocodone Bitart/Acetaminophen (Hydrocodone/Apap 10/325 Tab) 1 tab PO Q6HR PRN PRN Reason: PAIN 4-6 Stop: 03/28/25 09:59 Hydrocodone Bitart/Acetaminophen (Hydrocodone/Apap 10/325 Tab) 1 tab PO Q6HR [facility] [place] Stop: 03/28/25 17:59 Last Admin: 03/24/25 05:37 Dose: 1 tab Adenosine (Adenosine Inj 3 Mg/Ml Vial) 6 mg IVP X1 ONE Stop: 03/16/25 12:18 Last Admin: 03/16/25 12:17 Dose: 6 mg Adenosine (Adenosine Inj 3 Mg/Ml Vial) 12 mg IVP X1 ONE Stop: 03/16/25 12:19 Last Admin: 03/16/25 12:18 Dose: 12 mg Albuterol (Albuterol Rt 2.5 Mg/3 Ml Nebu) 2.5 mg INH 5 TIMES DAILY [place] Stop: 04/13/25 17:59 Albuterol (Albuterol Rt 2.5 Mg/0.5 Ml Nebu) 2.5 mg INH 5 TIMES DAILY [place] Stop: 04/13/25 17:59 Last Admin: 03/14/25 18:06 Dose: 2.5 mg Aspirin (Aspirin Ec 81 Mg Tabec) 81 mg PO QDAY [facility] [place] Stop: 04/14/25 10:29 Last Admin: 03/15/25 11:11 Dose: Not Given Aspirin (Aspirin 81 Mg Chew) 81 mg GT QDAY [facility] [place] Stop: 04/14/25 10:29 Aspirin (Aspirin 325 Mg Tablet) 325 mg GT NOW ONE Stop: 03/15/25 11:37 Last Admin: 03/15/25 15:35 Dose: 325 mg Calcium Carbonate (Calcium Carbonate 600 Mg Tablet) 600 mg PO QDAY ONE Stop: 03/23/25 08:03 Last Admin: 03/23/25 08:27 Dose: 600 mg Calcium Gluconate (Calcium Gluconate 10% Inj 1 Gm/10 Ml Vial) 1 gm IV X1 ONE Stop: 03/15/25 04:13 Last Admin: 03/15/25 04:34 Dose: 1 gm Calcium Gluconate (Calcium Gluconate 10% Inj 1 Gm/10 Ml Vial) 1 gm IV X1 ONE Stop: 03/15/25 20:21 Last Admin: 03/16/25 02:32 Dose: Not Given Calcium Gluconate (Calcium Gluconate 10% Inj 1 Gm/10 Ml Vial) 1 gm IV X1 ONE Stop: 03/16/25 02:00 Last Admin: 03/16/25 02:32 Dose: Not Given Calcium Gluconate (Calcium Gluconate 10% Inj 1 Gm/10 Ml Vial) 1 gm IV X1 ONE Stop: 03/16/25 07:51 Last Admin: 03/16/25 08:51 Dose: Not Given Clopidogrel Bisulfate (Clopidogrel Bisulfate 75 Mg Tablet) 75 mg PO QDAY [place] Stop: 04/14/25 10:29 Last Admin: 03/15/25 11:11 Dose: Not Given Dextrose (Dextrose 50%-Water Inj 50 Ml Syringe) 50 ml IV X1 ONE Stop: 03/14/25 14:19 Last Admin: 03/14/25 14:22 Dose: 50 ml Dextrose (Dextrose 50%-Water Inj 50 Ml Syringe) 50 ml IV X1 ONE Stop: 03/14/25 14:20 Last Admin: 03/14/25 14:22 Dose: 50 ml Dextrose (Dextrose 50%-Water Inj 50 Ml Syringe) 50 ml IV X1 ONE Stop: 03/14/25 14:30 Last Admin: 03/14/25 14:32 Dose: 50 ml Dextrose (Dextrose 50%-Water Inj 50 Ml Syringe) 50 ml IV X1 ONE Stop: 03/14/25 14:53 Last Admin: 03/14/25 14:54 Dose: 50 ml Dextrose (Dextrose 50%-Water Inj 50 Ml Syringe) 100 ml IV X1 ONE Stop: 03/14/25 15:23 Last Admin: 03/14/25 15:26 Dose: 100 ml Dextrose (Dextrose 50%-Water Inj 50 Ml Syringe) 50 ml IV X1 ONE Stop: 03/14/25 16:17 Last Admin: 03/14/25 16:17 Dose: 50 ml Dextrose (Dextrose 50%-Water Inj 50 Ml Syringe) 25 ml IV Q15MIN PRN PRN Reason: BG 50-70 responsive npo pt Stop: 04/13/25 17:35 Dextrose (Dextrose 50%-Water Inj 50 Ml Syringe) 50 ml IV Q15MIN PRN PRN Reason: BG <50 OR BG <70 & pt unresponsive Stop: 04/13/25 17:35 Dextrose (Dextrose 50%-Water Inj 50 Ml Syringe) 25 ml IV X1 ONE Stop: 03/15/25 04:24 Last Admin: 03/15/25 04:34 Dose: 25 ml Diltiazem HCl (Diltiazem Inj 5 Mg/Ml Vial 5 Ml) 20 mg IV X1 ONE Stop: 03/14/25 14:28 Last Admin: 03/14/25 14:35 Dose: 20 mg Etomidate (Etomidate Inj 2 Mg/Ml Vial 10 Ml) 20 mg IVP X1 ONE Stop: 03/14/25 15:21 Last Admin: 03/14/25 15:30 Dose: 20 mg Glucagon (Glucagon Inj 1 Mg Vial) 1 mg IM Q15MIN PRN PRN Reason: BG <70, and no IV access Heparin Sodium (Beef Lung) (Heparin Sod Lock Syr 100 Unit/Ml) 500 unit [place] X1 ONE Stop: 03/17/25 15:16 Last Admin: 03/17/25 16:56 Dose: Not Given Heparin Sodium (Porcine) (Heparin Sod Inj 5000 Unit/Ml Vial) 3,000 unit 30 unit/kg (3000 unit) IV X1 ONE; Protocol Stop: 03/15/25 05:05 Last Admin: 03/15/25 11:30 Dose: Not Given Heparin Sodium (Porcine) (Heparin Sod Inj 1000 Unit/Ml Vial 10 Ml) 3,000 unit [place]WELLCAT PRN PRN PRN Reason: INDWELLING CATHETER Stop: 03/30/25 01:13 Last Admin: 03/16/25 01:30 Dose: 3,000 unit Heparin Sodium (Porcine) (Heparin Sod Inj 1000 Unit/Ml Vial) 500 unit INDWELLCAT Q1H [place] Stop: 03/31/25 03:59 Last Admin: 03/17/25 07:45 Dose: Not Given Heparin Sodium (Porcine) (Heparin Sod Inj 1000 Unit/Ml Vial 10 Ml) 2,000 unit INDWELLCAT X1 ONE Stop: 03/17/25 07:28 Last Admin: 03/17/25 07:38 Dose: 2,000 unit Heparin Sodium (Porcine) (Heparin Sod Inj 1000 Unit/Ml Vial 10 Ml) 3,000 unit IV X1 ONE Stop: 03/17/25 08:01 Last Admin: 03/17/25 08:22 Dose: 3,000 unit Heparin Sodium (Porcine) (Heparin Sod Inj 1000 Unit/Ml Vial 10 Ml) 5,500 unit INDWELLCAT X1 ONE Stop: 03/17/25 16:42 Last Admin: 03/17/25 19:42 Dose: 5,500 unit Heparin Sodium (Porcine) (Heparin Sod Inj 1000 Unit/Ml Vial 10 Ml) 1,500 unit INDWELLCAT X1 ONE Stop: 03/17/25 16:42 Last Admin: 03/17/25 17:02 Dose: 1,500 unit Heparin Sodium (Porcine) (Heparin Sod Inj 5000 Unit/Ml Vial) 5,000 unit SC Q8HR [facility] [place] Stop: 03/31/25 21:59 Last Admin: 03/20/25 14:17 Dose: 5,000 unit Heparin Sodium (Porcine) (Heparin Sod Inj 1000 Unit/Ml Vial 10 Ml) 4,000 unit INDWELLCAT X1 ONE Stop: 03/18/25 08:01 Last Admin: 03/18/25 08:15 Dose: Not Given Heparin Sodium (Porcine) (Heparin Sod Inj 1000 Unit/Ml Vial 10 Ml) 500 unit INDWELLCAT Q1H [facility] [place] Stop: 03/18/25 15:16 Last Admin: 03/18/25 15:24 Dose: 500 unit Heparin Sodium (Porcine) (Heparin Sod Inj 5000 Unit/Ml Vial) 5,000 unit SC Q8HR [facility] [place] Stop: 04/05/25 21:59 Hydromorphone HCl (Hydromorphone Inj 2 Mg/Ml Vial) 0.5 mg IVP Q4HR PRN PRN Reason: PAIN Stop: 03/26/25 19:32 Last Admin: 03/22/25 05:24 Dose: 0.5 mg Hydromorphone HCl (Hydromorphone Inj 2 Mg/Ml Vial) 0.5 mg IVP Q4HR PRN PRN Reason: SEVERE PAIN 7-10 Stop: 03/26/25 19:32 Last Admin: 03/23/25 11:26 Dose: 0.5 mg Hydromorphone HCl (Hydromorphone Inj 2 Mg/Ml Vial) 0.5 mg IVP X1 ONE Stop: 03/22/25 17:24 Last Admin: 03/22/25 17:29 Dose: 0.5 mg Diltiazem HCl (Diltiazem In D5w 125 Mg) 125 mg in 125 mls @ 5 mls/hr IV .Q24H [place]; Protocol Stop: 04/13/25 14:27 Last Admin: 03/14/25 14:43 Dose: 5 mg/hr, 5 mls/hr Dextrose (D10w 1000 Ml) 250 mls @ 150 mls/hr IV Q15M PRN PRN Reason: HYPOGLYCEMIA Stop: 04/13/25 14:54 Dextrose (D10w) 500 mls @ 150 mls/hr IV .Q3H20M [place] Stop: 04/13/25 14:59 Last Admin: 03/15/25 07:09 Dose: Not Given Ceftriaxone Sodium 2 gm/ (Sodium Chloride) 50 mls @ 100 mls/hr IV X1 ONE Stop: 03/14/25 16:37 Last Infusion: 03/14/25 16:49 Dose: Infused Azithromycin 500 mg/ Sodium (Chloride) 250 mls @ 250 mls/hr IV X1 ONE Stop: 03/14/25 17:08 Last Infusion: 03/14/25 18:00 Dose: Infused Lactated Ringer's (Lactated Ringers) 1,000 mls @ 999 mls/hr IV .Q1H1M ONE Stop: 03/14/25 18:54 Last Admin: 03/14/25 18:30 Dose: 999 mls/hr Piperacillin Sod/Tazobactam (Sod 4.5 gm/ Sodium Chloride) 100 mls @ 200 mls/hr IV X1 ONE Stop: 03/14/25 20:29 Last Admin: 03/14/25 22:56 Dose: 200 mls/hr Vancomycin HCl 1,500 mg/ (Dextrose) 500 mls @ 197.998 mls/hr IV X1 ONE Stop: 03/14/25 20:46 Last Admin: 03/14/25 22:52 Dose: Not Given Norepinephrine/Dextrose (Levophed In D5w 8mg/250ml) 8 mg in 250 mls @ 9.355 mls/hr IV .Q24H PRN; Protocol PRN Reason: PER PROTOCOL Stop: 04/13/25 19:42 Last Titration: 03/20/25 02:00 Dose: 0 mcg/kg/min, 0 mls/hr Lactated Ringer's (Lactated Ringers) 500 mls @ 999 mls/hr IV .Q31M ONE Stop: 03/14/25 20:45 Last Admin: 03/14/25 20:00 Dose: 999 mls/hr Vasopressin/Sodium Chloride (Vasostrict/Ns Ivpb) 20 unit in 100 mls @ 9 mls/hr IV .Q11H7M PRN; Protocol PRN Reason: PER PROTOCOL Stop: 04/13/25 20:32 Last Titration: 03/14/25 21:45 Dose: 0 unit/min, 0 mls/hr Propofol (Diprivan Ivpb) 1,000 mg in 100 mls @ 2.994 mls/hr IV .Q24H PRN; Protocol PRN Reason: PER PROTOCOL Stop: 04/13/25 21:06 Last Titration: 03/17/25 17:55 Dose: Infused Fentanyl Citrate (Sublimaze Inj 2,500 Mcg/250 Ml Bag) 2,500 mcg in 250 mls @ 2.5 mls/hr IV .Q24H PRN; Protocol PRN Reason: PER PROTOCOL Stop: 03/19/25 21:07 Last Titration: 03/17/25 19:00 Dose: 75 mcg/hr, 7.5 mls/hr Heparin Sodium/Dextrose (Heparin In D5w Ivpb) 25,000 unit in 250 mls @ 10 mls/hr IV .Q24H [place]; Protocol Stop: 03/29/25 05:14 Last Admin: 03/15/25 11:30 Dose: Not Given Piperacillin Sod/Tazobactam (Sod 4.5 gm/ Sodium Chloride) 100 mls @ 25 mls/hr IV Q12HR [facility] [place] Stop: 03/22/25 08:59 Piperacillin Sod/Tazobactam (Sod 4.5 gm/ Sodium Chloride) 100 mls @ 200 mls/hr IV X1 ONE Stop: 03/15/25 07:44 Last Admin: 03/15/25 07:26 Dose: 200 mls/hr Piperacillin Sod/Tazobactam (Sod 4.5 gm/ Sodium Chloride) 100 mls @ 25 mls/hr IV Q12HR [place] Stop: 03/22/25 08:59 Vancomycin HCl/Dextrose (Vancomycin/D5w 1,250 Mg Ivpb) 250 mls @ 120 mls/hr IV X1 ONE Stop: 03/15/25 14:04 Last Admin: 03/15/25 15:42 Dose: 120 mls/hr Calcium Gluconate/Sodium Chloride (Calcium Gluc/Ns 1000mg Ivpb) 1,000 mg in 50 mls @ 50 mls/hr IV X1 ONE Stop: 03/15/25 08:22 Last Admin: 03/15/25 07:38 Dose: 50 mls/hr Heparin Sodium/Dextrose (Heparin In D5w Ivpb) 25,000 unit in 250 mls @ 10 mls/hr IV .Q24H [facility] [place]; Protocol Stop: 03/29/25 11:29 Last Admin: 03/17/25 17:04 Dose: Not Given Piperacillin Sod/Tazobactam (Sod 2.25 gm/ Sodium Chloride) 100 mls @ 25 mls/hr IV Q6HR [facility] [place] Stop: 03/23/25 00:00 Last Admin: 03/16/25 02:32 Dose: Not Given Calcium Gluconate/Sodium Chloride (Calcium Gluc/Ns 1000mg Ivpb) 1,000 mg in 50 mls @ 50 mls/hr IV X1 ONE Stop: 03/15/25 21:29 Last Admin: 03/15/25 21:30 Dose: 50 mls/hr Piperacillin/Tazobactam/Dextrose (Zosyn) 2.25 gm in 50 mls @ 100 mls/hr IV Q6H [facility] [place] Stop: 03/23/25 00:29 Last Admin: 03/17/25 14:06 Dose: 100 mls/hr Calcium Gluconate/Sodium Chloride (Calcium Gluc/Ns 1000mg Ivpb) 1,000 mg in 50 mls @ 50 mls/hr IV X1 ONE Stop: 03/16/25 03:05 Last Admin: 03/16/25 03:04 Dose: 50 mls/hr Amiodarone HCl/Dextrose (Nexterone Ivpb) 150 mg in 100 mls @ 600 mls/hr IV .Q10M ONE Stop: 03/16/25 04:35 Last Admin: 03/16/25 04:30 Dose: 600 mls/hr Amiodarone HCl/Dextrose (Nexterone Ivpb) 360 mg in 200 mls @ 33.333 mls/hr IV .Q6H ONE Stop: 03/16/25 10:25 Last Admin: 03/16/25 04:44 Dose: 33.333 mls/hr Amiodarone HCl/Dextrose (Nexterone Ivpb) 360 mg in 200 mls @ 16.667 mls/hr IV .Q12H [facility] [place] Stop: 03/17/25 10:25 Last Admin: 03/17/25 00:29 Dose: 16.667 mls/hr Calcium Gluconate/Sodium Chloride (Calcium Gluc/Ns 1000mg Ivpb) 1,000 mg in 50 mls @ 50 mls/hr IV X1 ONE Stop: 03/16/25 09:14 Last Admin: 03/16/25 08:38 Dose: 50 mls/hr Amiodarone HCl/Dextrose (Nexterone Ivpb) 360 mg in 200 mls @ 16.667 mls/hr IV .Q12H [facility] [place] Stop: 03/18/25 11:41 Last Admin: 03/18/25 02:02 Dose: 16.667 mls/hr Heparin Sodium/Dextrose (Heparin In D5w Ivpb) 25,000 unit in 250 mls @ 17.956 mls/hr IV .[id number] [facility] [place]; Protocol Stop: 03/31/25 14:29 Last Admin: 03/17/25 19:41 Dose: Not Given Levofloxacin/Dextrose (Levaquin Ivpb) 750 mg in 150 mls @ 100 mls/hr IV X1 ONE Stop: 03/17/25 17:45 Last Admin: 03/17/25 17:55 Dose: 100 mls/hr Levofloxacin/Dextrose (Levaquin Ivpb) 500 mg in 100 mls @ 100 mls/hr IV Q48H [facility] [place] Stop: 03/26/25 16:29 Last Admin: 03/19/25 17:02 Dose: 100 mls/hr Fentanyl Citrate (Sublimaze Inj 2,500 Mcg/250 Ml Bag) 2,500 mcg in 250 mls @ 2.5 mls/hr IV .Q24H PRN; Protocol PRN Reason: PER PROTOCOL Stop: 03/19/25 21:07 Last Titration: 03/18/25 00:00 Dose: 125 mcg/hr, 12.5 mls/hr Propofol (Diprivan Ivpb) 1,000 mg in 100 mls @ 2.994 mls/hr IV .Q24H PRN; Protocol PRN Reason: PER PROTOCOL Stop: 04/13/25 21:06 Potassium Chloride (Kcl Ivpb) 20 meq in 100 mls @ 50 mls/hr IV Q2H [facility] [place] Stop: 03/18/25 00:59 Last Admin: 03/17/25 23:50 Dose: 50 mls/hr Fentanyl Citrate (Sublimaze Inj 2,500 Mcg/250 Ml Bag) 2,500 mcg in 250 mls @ 2.5 mls/hr IV .Q24H PRN; Protocol PRN Reason: PER PROTOCOL Stop: 03/19/25 21:07 Last Titration: 03/18/25 11:34 Dose: 0 mcg/hr, 0 mls/hr Propofol (Diprivan Ivpb) 1,000 mg in 100 mls @ 3.453 mls/hr IV .Q24H PRN; Protocol PRN Reason: PER PROTOCOL Stop: 04/13/25 21:06 Last Titration: 03/18/25 11:34 Dose: 0 mcg/kg/min, 0 mls/hr Magnesium Sulfate (Magnesium Sulfate Ivpb) 2 gm in 50 mls @ 25 mls/hr IV X1 ONE Stop: 03/18/25 09:06 Last Admin: 03/18/25 07:35 Dose: 25 mls/hr Dexmedetomidine/Sodium Chloride (Precedex Ivpb) 200 mcg in 50 mls @ 5.625 mls/hr IV .[id number] PRN; Protocol PRN Reason: Per PROTOCOL Stop: 04/17/25 11:42 Last Titration: 03/19/25 13:00 Dose: Infused Amiodarone HCl/Dextrose (Nexterone Ivpb) 360 mg in 200 mls @ 16.667 mls/hr IV .Q12H [place] Stop: 04/21/25 15:21 Last Admin: 03/18/25 15:36 Dose: 16.667 mls/hr Amiodarone HCl/Dextrose (Nexterone Ivpb) 360 mg in 200 mls @ 16.667 mls/hr IV .Q12H [place] Stop: 03/19/25 16:00 Last Admin: 03/19/25 03:40 Dose: 16.667 mls/hr Albumin Human (Albuminar-25 Ivpb) 25 gm in 100 mls @ 100 mls/min IV PRN PRN PRN Reason: DIALYSIS Last Admin: 03/23/25 14:52 Dose: 100 mls/min Dexmedetomidine/Sodium Chloride (Precedex Ivpb) 400 mcg in 100 mls @ 5.625 mls/hr IV .[id number] PRN; Protocol PRN Reason: Per PROTOCOL Stop: 04/18/25 13:38 Last Titration: 03/20/25 04:00 Dose: 0 mcg/kg/hr, 0 mls/hr Vancomycin HCl/Dextrose (Vancomycin/D5w 1,250 Mg Ivpb) 250 mls @ 120 mls/hr IV X1 ONE Stop: 03/22/25 17:34 Last Infusion: 03/22/25 19:14 Dose: Infused Vancomycin/Sodium Chloride (Vancomycin/Ns 500 Mg Ivpb) 100 mls @ 120 mls/hr IV X1 ONE Stop: 03/23/25 17:49 Last Admin: 03/23/25 18:31 Dose: 120 mls/hr Vancomycin/Sodium Chloride (Vancomycin/Ns 500 Mg Ivpb) 100 mls @ 120 mls/hr IV X1 ONE Stop: 03/24/25 10:49 Last Admin: 03/24/25 10:06 Dose: 120 mls/hr Insulin Human Lispro (Insulin Lispro (Admelog) 1 Unit/0.01 Ml Unit) 0 unit SC Q6HR [place]; Protocol Stop: 04/13/25 20:44 Last Admin: 03/22/25 06:47 Dose: Not Given Insulin Human Regular (Insulin Hum Regular 1 Unit/0.01 Ml (Per Unit)) 10 unit IV X1 ONE Stop: 03/14/25 21:02 Last Admin: 03/14/25 22:20 Dose: Not Given Insulin Human Regular (Insulin Hum Regular 1 Unit/0.01 Ml (Per Unit)) 10 unit 0.1 unit/kg (10 unit) IV X1 ONE Stop: 03/15/25 04:13 Last Admin: 03/15/25 04:34 Dose: 10 unit Lactulose (Lactulose Syrup 20 Gm/30 Ml Udc) 20 gm PO TID [place]; Protocol Stop: 04/17/25 14:44 Last Admin: 03/19/25 05:59 Dose: 20 gm Lidocaine HCl (Lidocaine Inj Pf 1% 30 Ml Vial) 30 ml INFL X1 ONE Stop: 03/17/25 15:17 Last Admin: 03/17/25 15:26 Dose: 2 ml Lorazepam (Lorazepam 2 Mg/Ml Vial) 2 mg IV X1 ONE Stop: 03/15/25 08:26 Last Admin: 03/15/25 08:29 Dose: 2 mg Melatonin (Melatonin 3 Mg Tablet) 3 mg PO HS ONE Stop: 03/23/25 20:57 Last Admin: 03/23/25 22:14 Dose: 3 mg Methylprednisolone Sodium Succinate (Methylprednisolone Sod Succ 40 Mg Vial) 60 mg IVP X1 ONE Stop: 03/15/25 12:49 Last Admin: 03/15/25 12:48 Dose: 60 mg Metoprolol Succinate (Metoprolol Succinate Xl 25 Mg Tabcr) 25 mg PO QDAY [facility] [place] Stop: 04/20/25 13:14 Last Admin: 03/21/25 13:13 Dose: 25 mg Metoprolol Tartrate (Metoprolol Tartrate Inj 1 Mg/Ml Amp 5 Ml) 5 mg IVP X1 ONE Stop: 03/15/25 16:09 Last Admin: 03/15/25 16:08 Dose: 5 mg Midazolam HCl (Midazolam Inj 1 Mg/Ml Vial 2 Ml) 2 mg IV X1 ONE Stop: 03/14/25 14:17 Last Admin: 03/14/25 14:24 Dose: 2 mg Midodrine (Midodrine 5 Mg Tablet) 10 mg GT TID [facility] [place] Stop: 04/18/25 21:59 Morphine Sulfate (Morphine Sulf Inj 10 Mg/Ml Vial) 4 mg IVP X1 ONE Stop: 03/14/25 14:17 Last Admin: 03/14/25 14:24 Dose: 4 mg Nitroglycerin (Nitroglycerin Oint 2% 1 Inch Packet) 1 inch TOP X1 ONE Stop: 03/15/25 10:05 Last Admin: 03/15/25 10:12 Dose: 1 inch Nitroglycerin (Nitroglycerin Oint 2% 1 Inch Packet) 1 inch TOP X1 ONE Stop: 03/20/25 11:38 Last Admin: 03/20/25 14:16 Dose: 1 inch Nitroglycerin (Nitroglycerin 0.4 Mg/Hr Patch.Td24) 0.4 mg TOP X1 ONE Stop: 03/20/25 23:03 Last Admin: 03/21/25 01:14 Dose: Not Given Nitroglycerin (Nitroglycerin Oint 2% 1 Inch Packet) 1 inch TOP X1 ONE Stop: 03/20/25 23:30 Last Admin: 03/20/25 23:53 Dose: 1 inch Ondansetron HCl (Ondansetron Inj 2 Mg/Ml Inj 2 Ml) 4 mg IV X1 ONE; Protocol Stop: 03/14/25 14:17 Last Admin: 03/14/25 14:26 Dose: 4 mg Pantoprazole Sodium (Pantoprazole Inj 40 Mg Vial) 40 mg IVP QDAY [facility] Stop: 04/13/25 17:44 Last Admin: 03/14/25 18:51 Dose: Not Given Pharmacy Consult (Vancomycin Pharmacy To Dose 1 Each Each) 1 each IV QDAY [place] Stop: 04/13/25 17:44 Last Admin: 03/16/25 10:43 Dose: Not Given Pharmacy Consult (Vancomycin Pharmacy To Dose 1 Each Each) 1 each IV QDAY PRN PRN Reason: CONSULT Stop: 04/21/25 15:14 Phentolamine Mesylate (Phentolamine Mesylate Inj 5 Mg/Ml Vial) 5 mg SC X1 ONE Stop: 03/14/25 20:39 Last Admin: 03/14/25 21:02 Dose: 5 mg Potassium Chloride (Potassium Chloride 10% 20 Meq/15 Ml Udc) 40 meq GT X1 ONE Stop: 03/17/25 07:29 Last Admin: 03/17/25 08:26 Dose: 40 meq Potassium Chloride (Potassium Chloride 10% 20 Meq/15 Ml Udc) 40 meq GT X1 ONE Stop: 03/18/25 07:08 Last Admin: 03/18/25 07:35 Dose: 40 meq Potassium Chloride (Potassium Chloride 10% 20 Meq/15 Ml Udc) 40 meq GT X1 ONE Stop: 03/19/25 02:25 Last Admin: 03/19/25 03:40 Dose: 40 meq Potassium Chloride (Potassium Chloride 10% 20 Meq/15 Ml Udc) 20 meq GT X1 ONE Stop: 03/21/25 19:19 Last Admin: 03/21/25 19:31 Dose: 20 meq Rocuronium [place] (Rocuronium Inj 10 Mg/Ml Vial 10 Ml) 60 mg IVP X1 ONE Stop: 03/14/25 15:21 Last Admin: 03/14/25 15:32 Dose: 60 mg Rocuronium [place] (Rocuronium Inj 10 Mg/Ml Vial 10 Ml) 100 mg IVP X1 ONE Stop: 03/16/25 12:15 Last Admin: 03/16/25 12:14 Dose: 100 mg Sodium Bicarbonate (Sodium Bicarb Inj 8.4% Syr 50 Ml Syringe) 50 ml IV X1 ONE Stop: 03/14/25 14:21 Last Admin: 03/14/25 14:34 Dose: 50 ml Sodium Chloride (Sodium Chloride Rt 10% 15 Ml Nebu) 15 ml INH Q6H [place] Stop: 04/16/25 11:29 Last Admin: 03/17/25 17:05 Dose: Not Given Sodium Chloride (Sodium Cl Rt [place] 3% 4 Ml Nebu (Non-Formulary)) 15 ml INH Q6HRRT [place] Stop: 04/16/25 12:59 Last Admin: 03/17/25 17:05 Dose: Not Given Sodium Chloride (Sodium Cl Rt [place]jorie 3% 4 Ml Nebu (Non-Formulary)) 3 ml INH Q6HRRT [place] Stop: 04/16/25 13:44 Last Admin: 03/17/25 17:05 Dose: Not Given Sodium Chloride (Sodium Cl Rt [place] 3% 4 Ml Nebu (Non-Formulary)) 3 ml INH Q6HRRT [place] Stop: 04/16/25 15:59 Last Admin: 03/17/25 16:07 Dose: 3 ml Assessment & Plan Plan #Gram-positive bacteremia #Staph hemolyticus bacteremia Blood cultures positive 1 out of 2 bottles SHAKA negative for vegetations Will require line holiday and replacement once blood cultures are negative Vancomycin for the management of GPC bacteremia until April 05 Patient will likely benefit from surgical evaluation in regards to the ischemic changes noted on his extremities Patient can be discharged on antibiotic therapy with hemodialysis if decided by primary team #A-fib with RVR, rate controlled #Possible acute versus chronic limb ischemia #Peripheral vascular disease with occlusion of right tibial artery #Acute hypoxic respiratory failure, resolving #Troponinemia #HFpEF (EF 50 to 55% February 2025) #ESRD (Saturday/) #acute blood loss anemia #Hematemesis #Macrocytic anemia #Thrombocytopenia #Transaminitis #Hyper bilirubinemia #Hepatomegaly #Type 2 diabetes insulin-dependent ?Rest of management as per primary team Plan of care discussed with supervising attending Dr Nelly Lai M.D. PGY-3
--- NOTE | 2025-03-24 21:45 | XR_ITS ---
Examination: AP chest single view FINDINGS: AP portable upright chest single view Standing 9: March 24, 2025 1011 hours Comparison March 20, 2025 INDICATIONS: Chest pain shortness of breath today. FINDINGS: Early heart failure Mild to moderate enlargement cardiac contour Prominent vascular congestion including early septal edema at the lung bases Right subclavian central line tip left internal jugular dialysis catheter SVC IMPRESSION: Mild CHF
--- NOTE | 2025-03-24 22:06 | PC.RT ---
per RN pt spo2 in the 80s, went to assess pt immediately, found pt on 15L oxymask, spo2 78-99% pt alert oriended some abdominal breathing RR25, hr 112, unable to get accurated spo2 readings, auscultated bilateral crackles, DR. roland went to bedside to assess pt, waiting for abg results bibi RT made aware.
[2025-03-24 22:07] LABS: Base Excess -1 (-3-3); HCO3 25 mEq/L (20-26); Inspired Oxygen, FIO2 21 %; O2 Saturation 101 % (91-98); PCO2 48 mmHg (32.0-48.0); PO2 233 mmHg (83-108); pH, Arterial 7.33 (7.35-7.45)
[2025-03-24 22:10] LABS: Allen Test Performed/OK; Puncture Site Right Radial
--- NOTE | 2025-03-24 22:37 | PC.RT ---
post abg results flow titrated to 5L hnc at this time nurse made aware.
[2025-03-25] VITALS (30 sets, daily range): BP systolic 82–126; BP diastolic 40–86; PULSE 71–102; RESP 12–24; TEMP 36.1–36.9; O2SAT 92–100; BMI 34.7
[2025-03-25] MEDS: SODIUM CL RT SOL 3% 4 ML NEBU (NON-FORMULARY) 3 ML INH ×3 (00:44→13:24)
[2025-03-25] MEDS: LEVALBUTEROL RT 0.31 MG/3 ML NEBU INH ×4 (00:44→19:02)
[2025-03-25] MEDS: HYDROmorphone INJ 2 MG/ML VIAL 0.5 MG IVP ×5 (02:01→21:47)
[2025-03-25] MEDS: oxyCODONE/APAP 5/325 TABLET 1 TAB PO ×4 (04:10→23:12)
[2025-03-25 06:08] LABS: Basophils % (Auto) 0 % (0-2.5); Eosinophils # (Auto) 0.1 Thou/mm3 (0.0-0.5); Eosinophils % (Auto) 0 % (0-10); Immature Granulocytes % (Auto) 1 % (0-0); Immature Granulocytes Auto 0.13 Thou/mm3 (0.00-0.00); Lymphocytes # (Auto) 0.8 Thou/mm3 (1.0-4.8); Lymphocytes % (Auto) 5 % (10-50); Mean Corpuscular HGB Conc 31.6 g/dl (31.0-37.0); Mean Corpuscular Hemoglobin 31.9 pg (25.0-35.0); Mean Corpuscular Volume 101 fL (80-100); Monocytes # (Auto) 1.5 Thou/mm3 (0.0-0.8); Monocytes % (Auto) 11 % (0-12); Neutrophils % (Auto) 83 % (37-80); Nucleated Red Blood Cell % 0 /100 WBC (0); Platelet Count 131 Thou/mm3 (140-440); Red Blood Count 2.48 Miln/mm3 (4.50-5.90); White Blood Count 14.5 Thou/mm3 (3.8-10.6)
[2025-03-25 06:09] LABS: Hemoglobin 7.9 g/dL (13.5-16.0)
[2025-03-25 07:56] LABS: Alanine Aminotransferase 160 U/L (10-49); Albumin/Globulin Ratio 1.1 (1.2-2.2); Alkaline Phosphatase 155 U/L (46-116); Anion Gap 9 (7-16); Aspartate Amino Transferase 19 U/L (0-34); BUN/Creatinine Ratio 10 Ratio (12-20); Bilirubin,Total 0.8 mg/dL (0.3-1.2); Blood Urea Nitrogen 61 mg/dL (9-23); Calcium 7.7 mg/dL (8.3-10.6); Calcium (Corrected) 8.5 mg/dL (8.5-10.1); Chloride 94 mMol/L (98-107); Creatinine (Component) 6.2 mg/dL (0.6-1.3); Estimated Creatinine Clearance 18.6 mL/min (>60); Globulin 2.7 gm/dL (2.3-3.5); Glucose 102 mg/dL (74-106); Osmolality,Calculated 274 (275-295); Sodium 128 mMol/L (136-145); Total Protein 5.7 gm/dL (5.7-8.2); eGFR 10 See Note
[2025-03-25 08:07] LABS: Vancomycin,Random 18.9 mcg/mL
[2025-03-25] MEDS: ALBUMIN HUMAN 25% IVPB 25 GM/100 ML BTL IV ×2 (08:43→09:52)
--- NOTE | 2025-03-25 11:14 | ESPR_ITS ---
Documentation for date of: 03/25/25 Subjective Subjective Interval history: Mr. Mcclain is a 49-year-old male with past medical history of type 2 diabetes mellitus, hypertension, end-stage renal disease (HD ), HFpEF (EF 50 to 55% 02/2025) and right BKA due to osteomyelitis who was brought in by ambulance to [facility] emergency department on 03/14/2025 with a chief complaint of altered mental status. Patient was intubated secondary to inability to protect airway. On presentation patient's assisted with procuring history, per patient's patient had progressive shortness of breath and had change in mentation, patient was found to be in SVT when EMS arrived was shocked once and was converted to sinus rhythm. Patient also had to get additional sessions of hemodialysis due to increase in weight, last session of hemodialysis before admission to the hospital was on 12 March 2025. Patient also does have history of methamphetamine use, urine tox screen was positive for methamphetamine and marijuana on presentation. With the progression of hospital course patient was initially managed in the intensive care unit for acute hypoxic respiratory failure was found to have stenotrophomonas maltophilia pneumonia was treated with IV antibiotics, had significant lactic acidosis respiratory acidosis and high anion gap metabolic acidosis which improved in ICU patient did require CRRT and was eventually transition to hemodialysis, patient was eventually extubated on downgraded to telemetry on 03/20/2025. Patient's hospital stay is further complicated with possible acute versus chronic limb ischemia and underlying severe peripheral vascular disease, food prep worker discussed case with vascular surgeon at [facility] during the hospitalization, patient was a poor candidate for revascularization per documentation. Patient started on amiodarone for underlying atrial fibrillation and eventually infectious disease consulted for Staph haemolyticus bacteremia possible CLABSI. Patient continue to receive inpatient hemodialysis. 03/25/2025: Patient successfully completed 3 hours 4 minutes of dialysis session today, postdialysis weight 115.9 kg was hypotensive at times during the dialysis, tolerated dialysis well through the temporary dialysis catheter. Net fluid removed 0.5 L. Blood pressure was soft, received 2 bags of albumin during the dialysis session.Patient will need permanent dialysis catheter placement, will be scheduled with interventional radiology in a.m. after holding aspirin and Plavix. Patient will be made n.p.o. after midnight by primary team. Exam Vital Signs Temp Pulse Resp BP Pulse Ox O2 Del Method O2 Flow Rate 98 F 89 19 101/63 97 Nasal Cannula 3 03/25/25 08:20 03/25/25 11:00 03/25/25 08:20 03/25/25 11:00 03/25/25 08:20 03/25/25 08:00 03/25/25 08:20 FiO2 30 03/20/25 13:21 Narrative Exam GENERAL: A&Ox3 . Awake, Not in acute distress NEURO: no focal neurological deficits noted HEENT: Atraumatic, Normocephalic. mucous membranes moist. Eyes open, symmetrical, & clear HEART: Normal Heart Sounds LUNGS: Clear to auscultation with no wheezing or crackles. ABDOMEN: soft, non-distended, non-tender, bowel sounds heard, no guarding or rebound tenderness SKIN: ISCHEMIC CHANGES NOTED, necrotic changes at the tips of fingers bilaterally in UE and Left LE EXTREMITIES: Right BKA with cyanotic and ischemic changes at the stump Objective Labs 03/29/25 05:28 03/29/25 05:28 Labs: Laboratory Results - last 24 hr 03/24/25 03/25/25 22:00 05:10 WBC 14.5 H RBC 2.48 L Hgb 7.9 L Hct 25.0 L MCV 101 H MCH 31.9 MCHC 31.6 RDW Std Deviation 62.0 H Plt Count 131 L D Neut % (Auto) 83 H Lymph % (Auto) 5 L [place] % (Auto) 11 Eos % (Auto) 0 Baso % (Auto) 0 Neut # (Auto) 12.0 H Lymph # (Auto) 0.8 L [place] # (Auto) 1.5 H Eos # (Auto) 0.1 Baso # (Auto) 0.0 Immature Gran # (Auto) 0.13 H Absolute Nucleated RBC 0.00 Immature Gran % 1 H Nucleated RBC % 0 Puncture Site Right Radial ABG pH 7.33 L ABG pCO2 48 ABG pO2 233 H ABG HCO3 25 ABG O2 Saturation 101 H ABG Base Excess -1 FiO2 21 Sodium 128 L Potassium 5.0 Chloride 94 L Carbon Dioxide 25.0 Anion Gap 9 BUN 61 H Creatinine 6.2 H* D Estim Creat Clear Calc 18.6 L eGFR 10 L* BUN/Creatinine Ratio 10 L Glucose 102 Calculated Osmolality 274 L Calcium 7.7 L Corrected Calcium 8.5 Total Bilirubin 0.8 AST 19 ALT 160 H Alkaline Phosphatase 155 H Total Protein 5.7 Albumin 3.0 L Globulin 2.7 Albumin/Globulin Ratio 1.1 L Random Vancomycin 18.9 ABG Interpretation ABG results: 03/14/25 03/14/25 03/14/25 14:44 16:44 18:53 ABG pH 7.03 L* 7.04 L* 7.10 L* ABG pCO2 43 50 H 46 ABG pO2 86 128 H D 57 L* D ABG HCO3 11 L 13 L 14 L ABG O2 Saturation 91 97 78 L ABG Base Excess -19 L -17 L -15 L VBG pH VBG pCO2 VBG pO2 VBG Base Excess 03/14/25 03/15/25 03/15/25 21:20 05:07 12:28 ABG pH 7.21 L D 7.41 D ABG pCO2 32 D 31 L ABG pO2 116 H D 74 L D ABG HCO3 13 L 20 ABG O2 Saturation 97 95 ABG Base Excess -14 L -4 L VBG pH 7.43 VBG pCO2 34 L VBG pO2 37 VBG Base Excess -1 03/16/25 03/16/25 03/16/25 04:51 11:48 19:30 ABG pH 7.46 H 7.22 L D 7.38 D ABG pCO2 29 L 66 H D 48 D ABG pO2 78 L 79 L 236 H D ABG HCO3 21 27 H 29 H ABG O2 Saturation 96 91 100 H ABG Base Excess -2 -2 3 VBG pH VBG pCO2 VBG pO2 VBG Base Excess 03/17/25 03/18/25 03/19/25 04:53 09:27 04:46 ABG pH 7.38 7.35 ABG pCO2 49 H 48 ABG pO2 78 L D 92 ABG HCO3 29 H 26 ABG O2 Saturation 95 98 ABG Base Excess 3 0 VBG pH 7.34 VBG pCO2 54 D VBG pO2 34 VBG Base Excess 2 03/24/25 22:00 ABG pH 7.33 L ABG pCO2 48 ABG pO2 233 H ABG HCO3 25 ABG O2 Saturation 101 H ABG Base Excess -1 VBG pH VBG pCO2 VBG pO2 VBG Base Excess Quality Measures Quality Measures VTE prophylaxis Assessment & Plan Assessment Current Active Medications: Generic Name Dose Route Start Last Admin Trade Name Freq PRN Reason Stop Dose Admin Acetaminophen 650 mg 03/20/25 11:35 03/21/25 06:39 Acetaminophen 325 Mg Tablet PO 04/19/25 11:34 650 mg Q6HR PRN Administration pain and Fever >100.4 Protocol Amiodarone HCl 200 mg 03/19/25 21:00 03/24/25 20:34 Amiodarone Hcl 200 Mg Tablet GT 04/18/25 20:59 200 mg BID [place] Administration Aspirin 81 mg 03/16/25 09:00 03/24/25 10:11 Aspirin 81 Mg Chew GT 04/15/25 08:59 81 mg QDAY [place] Administration Clopidogrel Bisulfate 75 mg 03/15/25 10:53 03/24/25 10:13 Clopidogrel Bisulfate 75 Mg Tablet GT 04/14/25 10:29 75 mg QDAY [place] Administration Dextrose 25 ml 03/14/25 20:38 03/20/25 23:30 Dextrose 50%-Water Inj 50 Ml Syringe IV 04/13/25 20:37 25 ml Q15MIN PRN Administration BG 50-70 responsive npo pt Dextrose 50 ml 03/14/25 20:38 Dextrose 50%-Water Inj 50 Ml Syringe IV 04/13/25 20:37 Q15MIN PRN BG <50 OR BG <70 & pt unresponsive Glucagon 1 mg 03/14/25 17:36 Glucagon Inj 1 Mg Vial IM Q15MIN PRN BG <70, and no IV access Heparin Sodium (Porcine) 3,000 unit 03/19/25 13:33 03/23/25 18:20 Heparin Sod Inj 1000 Unit/Ml Vial 10 Ml INDWELLCAT 04/02/25 13:32 3,000 unit PRN PRN Administration DIALYSIS Heparin Sodium (Porcine) 5,000 unit 03/23/25 21:00 03/24/25 20:35 Heparin Sod Inj 5000 Unit/Ml Vial SC 04/06/25 20:59 5,000 unit Q12HR [place] Administration Hydromorphone HCl 0.5 mg 03/23/25 14:00 03/25/25 05:54 Hydromorphone Inj 2 Mg/Ml Vial IVP 03/28/25 13:59 0.5 mg Q4HR [place] Administration Albumin Human 25 gm in 100 mls @ 100 mls/min 03/25/25 08:41 03/25/25 09:54 Albuminar-25 Ivpb IV Infused PRN PRN Infusion DIALYSIS Insulin Human Lispro 0 unit 03/22/25 11:30 03/25/25 09:53 Insulin Lispro (Admelog) 1 Unit/0.01 Ml Unit SC 04/21/25 11:29 Not Given ACHS [place] Protocol Levalbuterol HCl 0.31 mg 03/20/25 12:15 03/25/25 07:22 Levalbuterol Rt 0.31 Mg/3 Ml Nebu INH 04/19/25 12:14 0.31 mg Q6HRRT [place] Administration Metoprolol Succinate 25 mg 03/22/25 09:00 03/24/25 20:31 Metoprolol Succinate Xl 25 Mg Tabcr PO 04/21/25 08:59 25 mg BID [place] Administration Midodrine 10 mg 03/19/25 18:19 Midodrine 5 Mg Tablet GT 04/18/25 21:59 TID PRN MAP below 65 Ondansetron HCl 4 mg 03/14/25 17:31 Ondansetron Inj 2 Mg/Ml Inj 2 Ml IV 04/13/25 17:30 Q6H PRN NAUSEA OR VOMITING Protocol Oxycodone/Acetaminophen 1 tab 03/24/25 12:00 03/25/25 10:16 Oxycodone/Apap 5/325 Tablet PO 03/29/25 11:59 1 tab Q6HR PRN Administration BREAKTHROUGH PAIN 4-10 Pantoprazole Sodium 40 mg 03/14/25 21:00 03/24/25 20:34 Pantoprazole Inj 40 Mg Vial IVP 04/13/25 20:59 40 mg BID [place] Administration Pharmacy Consult 1 each 03/24/25 17:00 03/24/25 18:12 Vancomycin Pharmacy To Dose 1 Each Each IV 04/23/25 16:59 Not Given QDAY [place] Sodium Chloride 3 ml 03/17/25 19:00 03/25/25 07:22 Sodium Cl Rt Marjorie 3% 4 Ml Nebu (Non-Formulary) INH 04/16/25 18:59 3 ml Q6HRRT [place] Administration Plan Assessment and Plan: Summary: Mr. Mcclain is a 49 years old male with PMH of DM2, hypertension, ESRD (HD ), HFpEF (EF 55% on 2021), and right BKA due to osteomyelitis BIBA to the ED due to AMS, was intubated and started on pressors and was admitted to the ICU on 03/14/2025 for management of shock of unknown etiology and was started on IV antibiotics. On 03/17 his sputum culture grew stenotrophomonas maltophilia and antibiotics were changed to levofloxacin. He was extubated and downgraded to telemetry on 03/20/2025 for continuation of care. # End-stage renal disease (HD on ). Patient received CRRT in intensive care unit, was transition to hemodialysis. Patient will need a line holiday and placement of due to underlying bacteremia. Primary team to hold aspirin and Plavix, catheter will be exchanged in a.m. possibly 03/25/2025: Patient successfully completed 3 hours 4 minutes of dialysis session today, postdialysis weight 115.9 kg was hypotensive at times during the dialysis, tolerated dialysis well through the temporary dialysis catheter. Net fluid removed 0.5 L. Blood pressure was soft, received 2 bags of albumin during the dialysis session.Patient will need permanent dialysis catheter placement, will be scheduled with interventional radiology in a.m. after holding aspirin and Plavix. Patient will be made n.p.o. after midnight by primary team. Plan: - Continue with hemodialysis today - Scheduled for permanent tunneled dialysis catheter placement in a.m. - Avoid nephrotoxic agents. - Renally dose medications. #Staph Hemolyticus bacteremia #CLABSI Patient tested for gram-positive cocci (staph hymolyticus ) 2/2 blood blood cultures on 03/21/2025 Patient currently has temporary dialysis catheter, aspirin and Plavix will be held Will be scheduled for permanent tunneled dialysis catheter placement in a.m. #Acute blood loss Anemia #Hematemesis. #Macrocytic anemia. #Thrombocytopenia. Hemoglobin 7.9, RBC 2.48, hematocrit 25%, MCV 101, platelets 131 today - Management as per primary team #HFrEF (EF 50-55% on 2024) #A-fib with RVR, rate controlled #Troponinemia - resolved Patient had improved ejection fraction compared to the echocardiogram from a week ago, cardiology is consulted. Patient is on amiodarone for atrial fibrillation. - Management as per primary team #Possible acute vs chronic limb ischemia. #Peripheral Vascular disease, severe Patient has severe vascular disease, case was discussed by ICU team with a vascular surgeon at [facility] Patient is poor candidate for surgery per documentation -Patient was referred to hospice by primary team #Acute hypoxic respiratory failure, improved. #Stenotrophomonas maltophilia pneumonia. #Respiratory acidosis, resolved. #Septic shock, resolved. - Management as per primary team #Transaminitis. #Hyperbilirubinemia #Hepatomegaly. #Hx of DM2. #Hypoglycemia, resolved. -Management per primary team Case discussed with Attending Dr. Wilson. Marycarmen Clark PGY1 Disclaimer: This note was dictated by speech recognition. Minor errors in materials handling coordinator may be present due to voice recognition software. Attending Provider Attestation/Addendum Labs are reviewed. seen and examined.agree with assessmsnt and plan and findings by resident. Héctor wilson MD
--- NOTE | 2025-03-25 11:23 | PC.NURSE ---
notified shannan shaffer of postponing procedure for 03/26/2025 due to blood thinners given yesterday. per md rivas hold on all blood thinners today.
[2025-03-25] MEDS: HEPARIN SOD INJ 1000 UNIT/ML VIAL 10 ML 3000 UNIT INDWELLCAT (11:37)
[2025-03-25] MEDS: PANTOPRAZOLE INJ 40 MG VIAL IVP ×2 (12:14→20:56)
[2025-03-25] MEDS: METOPROLOL SUCCINATE XL 25 MG TABCR PO ×2 (12:21→20:56)
[2025-03-25] MEDS: AMIODARONE HCL 200 MG TABLET GT ×2 (12:21→20:56)
--- NOTE | 2025-03-25 13:45 | ESPR_ITS ---
<Statement entered by Yanci Villalobos MD - 03/27/25 16:30> I personally examined the patient evaluated patient remains hemodynamically stable remains in atrial fibrillation rate controlled well does not complain of chest pain has a lot of pain involving both lower extremity as well as right upper extremity with gangrenous changes due to vascular problems patient also has had NSTEMI with preserved ejection fraction because of gram-positive cocci Darline did not perform angiogram possibly contemplating doing angiogram with an next 2 to 3 days possibly Saturday continue current medication including IV antibiotics vascular surgery consult was obtained recommend outpatient workup but patient may require angiogram to assess if this can be done sooner. Documentation for date of: 03/25/25 Subjective Subjective Interval history: Patient was examined bedside this morning, no acute overnight events .He is saturating well with 4 L of oxygen via nasal cannula. He was asking for pain medication. Exam Vital Signs Temp Pulse Resp BP Pulse Ox O2 Del Method O2 Flow Rate 97.0 F 93 20 113/78 100 Nasal Cannula 4 03/25/25 12:00 03/25/25 13:24 03/25/25 13:24 03/25/25 12:21 03/25/25 13:24 03/25/25 12:00 03/25/25 13:24 FiO2 30 03/20/25 13:21 Narrative Exam General: Awake and despondent, but conversational. Chronically ill-appearing. HEENT: Normocephalic, atraumatic, mucous membranes moist. On 3L NC. Heart: Regular rate and rhythm, normal S1 and S2, no murmurs. Lungs: Clear to auscultation with no wheezing or crackles. Abdomen: Soft, nondistended, nontender, positive bowel sounds. ?No guarding or rebound tenderness. Neurologic: Alert and oriented x3, no gross neurological deficit, Extremities: Right upper extremity with blackened and shriveled finger tips. Right BKA with dark ischemic changes. Left lower and upper extremity spots of ischemic reddened to darkened skin. Skin: Scattered red to brown-black ischemic skin changes of the extremities. Objective Labs 03/25/25 05:10 03/25/25 05:10 Labs: Laboratory Results - last 24 hr 03/24/25 03/25/25 22:00 05:10 WBC 14.5 H RBC 2.48 L Hgb 7.9 L Hct 25.0 L MCV 101 H MCH 31.9 MCHC 31.6 RDW Std Deviation 62.0 H Plt Count 131 L D Neut % (Auto) 83 H Lymph % (Auto) 5 L [place] % (Auto) 11 Eos % (Auto) 0 Baso % (Auto) 0 Neut # (Auto) 12.0 H Lymph # (Auto) 0.8 L [place] # (Auto) 1.5 H Eos # (Auto) 0.1 Baso # (Auto) 0.0 Immature Gran # (Auto) 0.13 H Absolute Nucleated RBC 0.00 Immature Gran % 1 H Nucleated RBC % 0 Puncture Site Right Radial ABG pH 7.33 L ABG pCO2 48 ABG pO2 233 H ABG HCO3 25 ABG O2 Saturation 101 H ABG Base Excess -1 FiO2 21 Sodium 128 L Potassium 5.0 Chloride 94 L Carbon Dioxide 25.0 Anion Gap 9 BUN 61 H Creatinine 6.2 H* D Estim Creat Clear Calc 18.6 L eGFR 10 L* BUN/Creatinine Ratio 10 L Glucose 102 Calculated Osmolality 274 L Calcium 7.7 L Corrected Calcium 8.5 Total Bilirubin 0.8 AST 19 ALT 160 H Alkaline Phosphatase 155 H Total Protein 5.7 Albumin 3.0 L Globulin 2.7 Albumin/Globulin Ratio 1.1 L Random Vancomycin 18.9 ABG Interpretation ABG results: 03/14/25 03/14/25 03/14/25 14:44 16:44 18:53 ABG pH 7.03 L* 7.04 L* 7.10 L* ABG pCO2 43 50 H 46 ABG pO2 86 128 H D 57 L* D ABG HCO3 11 L 13 L 14 L ABG O2 Saturation 91 97 78 L ABG Base Excess -19 L -17 L -15 L VBG pH VBG pCO2 VBG pO2 VBG Base Excess 03/14/25 03/15/25 03/15/25 21:20 05:07 12:28 ABG pH 7.21 L D 7.41 D ABG pCO2 32 D 31 L ABG pO2 116 H D 74 L D ABG HCO3 13 L 20 ABG O2 Saturation 97 95 ABG Base Excess -14 L -4 L VBG pH 7.43 VBG pCO2 34 L VBG pO2 37 VBG Base Excess -1 03/16/25 03/16/25 03/16/25 04:51 11:48 19:30 ABG pH 7.46 H 7.22 L D 7.38 D ABG pCO2 29 L 66 H D 48 D ABG pO2 78 L 79 L 236 H D ABG HCO3 21 27 H 29 H ABG O2 Saturation 96 91 100 H ABG Base Excess -2 -2 3 VBG pH VBG pCO2 VBG pO2 VBG Base Excess 03/17/25 03/18/25 03/19/25 04:53 09:27 04:46 ABG pH 7.38 7.35 ABG pCO2 49 H 48 ABG pO2 78 L D 92 ABG HCO3 29 H 26 ABG O2 Saturation 95 98 ABG Base Excess 3 0 VBG pH 7.34 VBG pCO2 54 D VBG pO2 34 VBG Base Excess 2 03/24/25 22:00 ABG pH 7.33 L ABG pCO2 48 ABG pO2 233 H ABG HCO3 25 ABG O2 Saturation 101 H ABG Base Excess -1 VBG pH VBG pCO2 VBG pO2 VBG Base Excess Quality Measures Quality Measures VTE prophylaxis Assessment & Plan Assessment Current Active Medications: Generic Name Dose Route Start Last Admin Trade Name Freq PRN Reason Stop Dose Admin Acetaminophen 650 mg 03/20/25 11:35 03/21/25 06:39 Acetaminophen 325 Mg Tablet PO 04/19/25 11:34 650 mg Q6HR PRN Administration pain and Fever >100.4 Protocol Amiodarone HCl 200 mg 03/19/25 21:00 03/25/25 12:21 Amiodarone Hcl 200 Mg Tablet GT 04/18/25 20:59 200 mg BID MONTSERRAT Administration Aspirin 81 mg 03/16/25 09:00 03/25/25 11:33 Aspirin 81 Mg Chew GT 04/15/25 08:59 Not Given QDAY MONTSERRAT Clopidogrel Bisulfate 75 mg 03/15/25 10:53 03/25/25 11:34 Clopidogrel Bisulfate 75 Mg Tablet GT 04/14/25 10:29 Not Given QDAY MONTSERRAT Dextrose 25 ml 03/14/25 20:38 03/20/25 23:30 Dextrose 50%-Water Inj 50 Ml Syringe IV 04/13/25 20:37 25 ml Q15MIN PRN Administration BG 50-70 responsive npo pt Dextrose 50 ml 03/14/25 20:38 Dextrose 50%-Water Inj 50 Ml Syringe IV 04/13/25 20:37 Q15MIN PRN BG <50 OR BG <70 & pt unresponsive Glucagon 1 mg 03/14/25 17:36 Glucagon Inj 1 Mg Vial IM Q15MIN PRN BG <70, and no IV access Heparin Sodium (Porcine) 3,000 unit 03/19/25 13:33 03/25/25 11:37 Heparin Sod Inj 1000 Unit/Ml Vial 10 Ml INDWELLCAT 04/02/25 13:32 3,000 unit PRN PRN Administration DIALYSIS Heparin Sodium (Porcine) 5,000 unit 03/23/25 21:00 03/25/25 11:34 Heparin Sod Inj 5000 Unit/Ml Vial SC 04/06/25 20:59 Not Given Q12HR MONTSERRAT Hydromorphone HCl 0.5 mg 03/23/25 14:00 03/25/25 12:14 Hydromorphone Inj 2 Mg/Ml Vial IVP 03/28/25 13:59 0.5 mg Q4HR MONTSERRAT Administration Albumin Human 25 gm in 100 mls @ 100 mls/min 03/25/25 08:41 03/25/25 09:54 Albuminar-25 Ivpb IV Infused PRN PRN Infusion DIALYSIS Insulin Human Lispro 0 unit 03/22/25 11:30 03/25/25 12:04 Insulin Lispro (Admelog) 1 Unit/0.01 Ml Unit SC 04/21/25 11:29 Not Given ACHS MONTSERRAT Protocol Levalbuterol HCl 0.31 mg 03/20/25 12:15 03/25/25 13:24 Levalbuterol Rt 0.31 Mg/3 Ml Nebu INH 04/19/25 12:14 0.31 mg Q6HRRT MONTSERRAT Administration Metoprolol Succinate 25 mg 03/22/25 09:00 03/25/25 12:21 Metoprolol Succinate Xl 25 Mg Tabcr PO 04/21/25 08:59 25 mg BID MONTSERRAT Administration Midodrine 10 mg 03/19/25 18:19 Midodrine 5 Mg Tablet GT 04/18/25 21:59 TID PRN MAP below 65 Ondansetron HCl 4 mg 03/14/25 17:31 Ondansetron Inj 2 Mg/Ml Inj 2 Ml IV 04/13/25 17:30 Q6H PRN NAUSEA OR VOMITING Protocol Oxycodone/Acetaminophen 1 tab 03/24/25 12:00 03/25/25 10:16 Oxycodone/Apap 5/325 Tablet PO 03/29/25 11:59 1 tab Q6HR PRN Administration BREAKTHROUGH PAIN 4-10 Pantoprazole Sodium 40 mg 03/14/25 21:00 03/25/25 12:14 Pantoprazole Inj 40 Mg Vial IVP 04/13/25 20:59 40 mg BID MONTSERRAT Administration Pharmacy Consult 1 each 03/24/25 17:00 03/25/25 12:08 Vancomycin Pharmacy To Dose 1 Each Each IV 04/23/25 16:59 Not Given QDAY MONTSERRAT Sodium Chloride 3 ml 03/17/25 19:00 03/25/25 13:24 Sodium Cl Rt Marjorie 3% 4 Ml Nebu (Non-Formulary) INH 04/16/25 18:59 3 ml Q6HRRT MONTSERRAT Administration Plan 49-year-old male with past medical history of DM2, hypertension, ESRD (HD /), HFpEF (EF 55% on 2021), and right BKA due to osteomyelitis was initially admitted to the ICU on 03/14/2025 for acute hypoxic respiratory failure, acute encephalopathy, and shock. He was subsequently extubated and downgraded to telemetry on 03/20/2025 for continuation of care. #Status post acute non-ST segment elevation myocardial infarction, NSTEMI possible type 2 troponin versus NSTEMI. #SVT episodes #Afib, rate controlled #Decompensated HFpEF (EF 45-50%) Patient s/p intubation and pressor support in ICU for shock, distributive secondary to sepsis versus cardiogenic. Patient initially presented to ED in SVT and required shock x1. Troponin initially 1.856 uptrended to 7.899 peak. Patient was treated for pneumonia. Patient was able to wean off pressors, extubated, now downgraded to tele. CT LER showed diffuse stenosis on the arteries of the LLE, occlusions in almost all major arteries. Echo done on 03/16/2025 showed LV appears normal with EF 45-50%. Septal dyskinesis is seen, RV appears normal with RVSP 50 mmHg. Mildly dilated LA & RA Mild mitral regurgitation Mild-Moderate TR. 03/21, patient had 2 rapid response events for SVT in the 170-200s which self converted in minutes. -Continue amiodarone 200 mg BID -Continue metoprolol succinate 25 mg BID -Maintain K >4.0 and Mag >2.0 -Continue dialysis per Nephro -For now, no plans for coronary angiogram as he has multiple issues including gangrenous changes. Left ventricular function is preserved. #Extensive atherosclerotic cardiovascular disease with bilateral femoral artery occlusions and distal trifurcation disease with gangrenous changes. -Patient has history of right extremity BKA due to severe PAD. This admission after severe shock requiring pressor support patient subsequently developed ischemia of the right and left fingertips. Vascular surgeon stated that the patient is not a candidate at this time for revascularization, however stated that would discuss case with general surgeon. Likely upper extremity digits affected by vasopressor support in combination with severe PAD causing limb ischemia. -Later down the line consider extremity angiogram to visualize upper and lower extremity artery flow and possible need for stent, however patient must have bacteremia treated first -Continue aspirin 81 mg qday -Continue clopidogrel 75 mg qday -Continue antibiotics for now #GPC bacteremia #Leukocytosis #Staph hemolyticus bacteremia Patient tested for gram-positive cocci 2/2 blood cultures on 03/21/2025, first positive blood cultures this admission. Patient has not been febrile, however has had persistent leukocytosis. Patient subsequently getting all lines removed after receiving dialysis. -Repeat echo on 03/23- Aortic valve leaflets with sclerosis calcification thickening of the cusp but no stenosis. No evidence of vegetation detected. Mitral valve annular show mild calcification mitral leaflets with thickening regurgitations.Left atrium appears to be mildly dilated.Left ventricle is normal with evidence of mild anteroseptal hypokinesis with well-preserved ejection fraction of 50 to 55%. Right heart structures normal. Mild tricuspid regurgitation with no evidence of pulmonary hypertension normal PA pressures. Tricuspid and pulmonic valves appear normal no vegetations. Compared to the study a week ago no change except some improvement in LV function. -Repeat blood cultures 24 hrs is negative. -Continue antibiotics #Hypotension- resolved S/p shock weaned off pressors, multifactorial likely distributive and some component cardiogenic. -Continue midodrine 10 mg TID Rest of conditions to continue current management per primary team: #Acute hypoxic respiratory failure #Community-acquired pneumonia, Stenotrophomonas maltophilia #ESRD (HD on ) #History of type 2 diabetes #Respiratory acidosis, resolved #HAGMA, resolved #Lactic acidosis, resolved #Hyperkalemia, resolved #Shock liver, resolved #Possible GI bleed #Macrocytic anemia #Thrombocytopenia #Hematemesis, resolved #Hypoglycemia, resolved Discussed the patient with my attending Dr Wilfredo Granados MD,PGY-3
--- NOTE | 2025-03-25 15:30 | PD.RESPRO ---
Documentation for date of: 03/25/25 Subjective Subjective Interval history: Patient was seen at bedside this morning. No overnight events. Patient's WBC continues to downtrend and he was tolerating hemodialysis well today. Will remove his dialysis catheter and will order tunneled dialysis catheter by IR which will be done tomorrow therefore we will hold patient's aspirin Plavix and heparin today. Otherwise patient still has some pain on his fingers. Blood cultures have been negative in the past 48 hours. Patient will require [facility] facility and will need to be seen as an outpatient by vascular surgeon for his severe PAD. Will continue vancomycin for now. Patient has very poor peripheral access, but was able to get peripheral acces. Central line and HD catheter removed today. Exam Vital Signs Temp Pulse Resp BP Pulse Ox O2 Del Method O2 Flow Rate 97.0 F 93 20 113/78 100 Nasal Cannula 4 03/25/25 12:00 03/25/25 13:24 03/25/25 13:24 03/25/25 12:21 03/25/25 13:24 03/25/25 12:00 03/25/25 13:24 FiO2 30 03/20/25 13:21 Narrative Exam General: AO x 3, no acute distress Eyes: Pupils reactive to light, EOMI, vision intact Ears: No visible ear discharge Nose: No visible nasal discharge. Mouth/Throat: Moist mucous membranes, no redness, no lesions. Neck: Neck supple, no cervical lymphadenopathy. Lungs: Clear CHRISTIANO Cardio: Normal S1/S2, irregular, no murmurs, no JVD Abdomen: Soft, non-tender, no palpable masses, peristalsis present, no guarding or rebound Extremities: Right BKA with cyanotic changes at the stump still present and is tender, left foot demarcated purplish unchanged, but there is necrotic changes in toes, right upper extremity 2nd and 3rd digits show necrotic changes at the tips. Skin: Right 2nd and 3rd upper extremity digits show necrotic changes at the tips with some bullae at the rest of the digit, Left foot discoloration and necrotic changes in toes. Neuro: No focal neurological deficits, motor and sensory intact. Objective Labs 03/26/25 07:36 03/26/25 05:24 Labs: Laboratory Results - last 24 hr 03/24/25 03/25/25 22:00 05:10 WBC 14.5 H RBC 2.48 L Hgb 7.9 L Hct 25.0 L MCV 101 H MCH 31.9 MCHC 31.6 RDW Std Deviation 62.0 H Plt Count 131 L D Neut % (Auto) 83 H Lymph % (Auto) 5 L [place] % (Auto) 11 Eos % (Auto) 0 Baso % (Auto) 0 Neut # (Auto) 12.0 H Lymph # (Auto) 0.8 L [place] # (Auto) 1.5 H Eos # (Auto) 0.1 Baso # (Auto) 0.0 Immature Gran # (Auto) 0.13 H Absolute Nucleated RBC 0.00 Immature Gran % 1 H Nucleated RBC % 0 Puncture Site Right Radial ABG pH 7.33 L ABG pCO2 48 ABG pO2 233 H ABG HCO3 25 ABG O2 Saturation 101 H ABG Base Excess -1 FiO2 21 Sodium 128 L Potassium 5.0 Chloride 94 L Carbon Dioxide 25.0 Anion Gap 9 BUN 61 H Creatinine 6.2 H* D Estim Creat Clear Calc 18.6 L eGFR 10 L* BUN/Creatinine Ratio 10 L Glucose 102 Calculated Osmolality 274 L Calcium 7.7 L Corrected Calcium 8.5 Total Bilirubin 0.8 AST 19 ALT 160 H Alkaline Phosphatase 155 H Total Protein 5.7 Albumin 3.0 L Globulin 2.7 Albumin/Globulin Ratio 1.1 L Random Vancomycin 18.9 ABG Interpretation ABG results: 03/14/25 03/14/25 03/14/25 14:44 16:44 18:53 ABG pH 7.03 L* 7.04 L* 7.10 L* ABG pCO2 43 50 H 46 ABG pO2 86 128 H D 57 L* D ABG HCO3 11 L 13 L 14 L ABG O2 Saturation 91 97 78 L ABG Base Excess -19 L -17 L -15 L VBG pH VBG pCO2 VBG pO2 VBG Base Excess 03/14/25 03/15/25 03/15/25 21:20 05:07 12:28 ABG pH 7.21 L D 7.41 D ABG pCO2 32 D 31 L ABG pO2 116 H D 74 L D ABG HCO3 13 L 20 ABG O2 Saturation 97 95 ABG Base Excess -14 L -4 L VBG pH 7.43 VBG pCO2 34 L VBG pO2 37 VBG Base Excess -1 03/16/25 03/16/25 03/16/25 04:51 11:48 19:30 ABG pH 7.46 H 7.22 L D 7.38 D ABG pCO2 29 L 66 H D 48 D ABG pO2 78 L 79 L 236 H D ABG HCO3 21 27 H 29 H ABG O2 Saturation 96 91 100 H ABG Base Excess -2 -2 3 VBG pH VBG pCO2 VBG pO2 VBG Base Excess 03/17/25 03/18/25 03/19/25 04:53 09:27 04:46 ABG pH 7.38 7.35 ABG pCO2 49 H 48 ABG pO2 78 L D 92 ABG HCO3 29 H 26 ABG O2 Saturation 95 98 ABG Base Excess 3 0 VBG pH 7.34 VBG pCO2 54 D VBG pO2 34 VBG Base Excess 2 03/24/25 22:00 ABG pH 7.33 L ABG pCO2 48 ABG pO2 233 H ABG HCO3 25 ABG O2 Saturation 101 H ABG Base Excess -1 VBG pH VBG pCO2 VBG pO2 VBG Base Excess Quality Measures Quality Measures VTE prophylaxis Assessment & Plan Assessment Current Active Medications: Generic Name Dose Route Start Last Admin Trade Name Freq PRN Reason Stop Dose Admin Acetaminophen 650 mg 03/20/25 11:35 03/21/25 06:39 Acetaminophen 325 Mg Tablet PO 04/19/25 11:34 650 mg Q6HR PRN Administration pain and Fever >100.4 Protocol Amiodarone HCl 200 mg 03/19/25 21:00 03/25/25 12:21 Amiodarone Hcl 200 Mg Tablet GT 04/18/25 20:59 200 mg BID MONTSERRAT Administration Aspirin 81 mg 03/16/25 09:00 03/25/25 11:33 Aspirin 81 Mg Chew GT 04/15/25 08:59 Not Given QDAY [place]AT Clopidogrel Bisulfate 75 mg 03/15/25 10:53 03/25/25 11:34 Clopidogrel Bisulfate 75 Mg Tablet GT 04/14/25 10:29 Not Given QDAY MONTSERRAT Dextrose 25 ml 03/14/25 20:38 03/20/25 23:30 Dextrose 50%-Water Inj 50 Ml Syringe IV 04/13/25 20:37 25 ml Q15MIN PRN Administration BG 50-70 responsive npo pt Dextrose 50 ml 03/14/25 20:38 Dextrose 50%-Water Inj 50 Ml Syringe IV 04/13/25 20:37 Q15MIN PRN BG <50 OR BG <70 & pt unresponsive Glucagon 1 mg 03/14/25 17:36 Glucagon Inj 1 Mg Vial IM Q15MIN PRN BG <70, and no IV access Heparin Sodium (Porcine) 3,000 unit 03/19/25 13:33 03/25/25 11:37 Heparin Sod Inj 1000 Unit/Ml Vial 10 Ml INDWELLCAT 04/02/25 13:32 3,000 unit PRN PRN Administration DIALYSIS Heparin Sodium (Porcine) 5,000 unit 03/23/25 21:00 03/25/25 11:34 Heparin Sod Inj 5000 Unit/Ml Vial SC 04/06/25 20:59 Not Given Q12HR MON[place]ERRAT Hydromorphone HCl 0.5 mg 03/23/25 14:00 03/25/25 14:36 Hydromorphone Inj 2 Mg/Ml Vial IVP 03/28/25 13:59 Not Given Q4HR MONTSERRAT Albumin Human 25 gm in 100 mls @ 100 mls/min 03/25/25 08:41 03/25/25 09:54 Albuminar-25 Ivpb IV Infused PRN PRN Infusion DIALYSIS Insulin Human Lispro 0 unit 03/22/25 11:30 03/25/25 12:04 Insulin Lispro (Admelog) 1 Unit/0.01 Ml Unit SC 04/21/25 11:29 Not Given ACHS MONTSERRAT Protocol Levalbuterol HCl 0.31 mg 03/20/25 12:15 03/25/25 13:24 Levalbuterol Rt 0.31 Mg/3 Ml Nebu INH 04/19/25 12:14 0.31 mg Q6HRRT MONTSERRAT Administration Metoprolol Succinate 25 mg 03/22/25 09:00 03/25/25 12:21 Metoprolol Succinate Xl 25 Mg Tabcr PO 04/21/25 08:59 25 mg BID MONTSERRAT Administration Midodrine 10 mg 03/19/25 18:19 Midodrine 5 Mg Tablet GT 04/18/25 21:59 TID PRN MAP below 65 Ondansetron HCl 4 mg 03/14/25 17:31 Ondansetron Inj 2 Mg/Ml Inj 2 Ml IV 04/13/25 17:30 Q6H PRN NAUSEA OR VOMITING Protocol Oxycodone/Acetaminophen 1 tab 03/24/25 12:00 03/25/25 10:16 Oxycodone/Apap 5/325 Tablet PO 03/29/25 11:59 1 tab Q6HR PRN Administration BREAKTHROUGH PAIN 4-10 Pantoprazole Sodium 40 mg 03/14/25 21:00 03/25/25 12:14 Pantoprazole Inj 40 Mg Vial IVP 04/13/25 20:59 40 mg BID MONTSERRAT Administration Pharmacy Consult 1 each 03/24/25 17:00 03/25/25 12:08 Vancomycin Pharmacy To Dose 1 Each Each IV 04/23/25 16:59 Not Given QDAY MONTSERRAT Sodium Chloride 3 ml 03/17/25 19:00 03/25/25 13:24 Sodium Cl Rt Marjorie 3% 4 Ml Nebu (Non-Formulary) INH 04/16/25 18:59 3 ml Q6HRRT MONTSERRAT Administration Plan 49-year-old male with past medical history of DM2, hypertension, ESRD (HD /), HFpEF (EF 55% on 2021), and right BKA due to osteomyelitis was admitted to the ICU on 03/14/2025 for acute hypoxic respiratory failure, acute encephalopathy, and shock. He was extubated and downgraded to telemetry on 03/20/2025. #Staph Hemolyticus bacteremia #CLABSI Patient grew Staphylococcus hemolyticus from blood cultures on 03/21/2025 Repeat blood cultures on 03/14/2025 have been negative for the past 48 hours Repeat echo did not show any vegetations Plan: Continue Vancoymycin started 03/23- 04/05 Will remove patient's hemodialysis catheter and central line Consulted infectious disease, appreciate mentations #A-fib with RVR, rate controlled #MAT #SVT Patient again went into SVT last night and was shocked again, but on repeat EKG showed to be in A-fib RVR. Patient again went into SVT and received adenosine 6mg x1 and adenosine 12mg x1 before being cardioverted. Repeat EKG showed what appears to be MAT. [id number] score of 3 points indicating 3.2% risk of stroke per year HAS-BLED score of 5 points Plan: Continue amiodarone 200mg BID Metoprolol succinate 25mg daily Keep Potassium >4 and Mg >2 Corporate Intern consulted, appreciate recommendations #Possible acute vs chronic limb ischemia. #Peripheral Vascular disease, severe Abdomen CTA with runoff that showed occlusion of multiple arteries including the left radial, gluteal, and tibial arteries as well as 90% stenosis of the left superficial femoral artery Also showed 80% stenosis of right superficial femoral artery. Overnight ICU team spoke with vascular surgeon at [facility] who stated that at this time patient was not a candidate for transfer for revascularization. Patient understands that he may lose multiple digits and even his left lower foot. Most likely needs to follow-up with vascular surgeon as an outpatient. Plan: Nitroglycerin topical ointment. Will continue with aspirin and Plavix for now, held today for procedure tomorrow Pt will need outpatient follow up with vascular surgeon #Acute hypoxic respiratory failure, improved. #Stenotrophomonas maltophilia pneumonia. #Respiratory acidosis, resolved. #Septic shock, resolved. Intubated on 03/14/2025. Sputum grew stenotrophomonas maltophilia. Extubated on 03/20/2025. Zosyn 03/14/2025-03/17/2025 Vancomycin 03/14/2025 - 03/15/2025. Discontinued levaquin 500mg q48hr 03/17/2025- 03/21 Plan: Continue hypertonic saline inhaled solution and chest physiotherapy. Midodrine 10mg TID as needed. #Troponinemia Troponins peaked at 7.899 and down trended to 7.04. Echo 03/16/2025 showed EF of 45 to 50% and septal dyskinesis. Echo on 03/23/2025 shows some improvement and left ventricle function with an EF of 50 to 55% Plan: Will continue on aspirin, Plavix. No plans for heart catheterization at this time given multiple underlying issues. Cardiology consulted, appreciate recommendations. #HFrEF (EF 50-55% on 2024). Echo on 03/16/2025 showed EF of 45 to 50% and septal dyskinesis. Echo on 03/23/2025 shows some improvement and left ventricle function with an EF of 50 to 55% Plan: Will continue with hemodialysis with fluid removal. Daily weights. Strict JENN's. fluid restriction. #ESRD (HD on ). #HAGMA, resolved. #Lactic acidosis, resolved. Patient was on hemodialysis and had AV fistula, but was clotted therefore cannot be used. Plan: Plan for tunneled dialysis catheter insertion by IR tomorrow morning. Continue hemodialysis as scheduled. Research Animal Attendant Dr. Pleitez following, appreciate recommendations Avoid nephrotoxic agents. Renally dose medications. #Hematemesis. #Macrocytic anemia. #Thrombocytopenia. Patient's hemoglobin was downtrending from 11.9 on admission Hemoglobin 7.9 and platelets 131 No active signs of bleeding Plan: Continue to monitor daily CBC Transfuse if Hgb less than 7. #Transaminitis, improving #Hyperbilirubinemia, resolved #Hepatomegaly. Possible liver failure due to methamphetamine use? Could be due to shock liver versus hypoxia versus drug-induced. Hepatitis panel negative and abdominal ultrasound that shows some hepatomegaly with possible cirrhosis versus hepatocellular disease. Plan: Continue monitoring daily labs #Hx of DM2. ISS. Hypoglycemia protocol ordered. Hospital Maintenance: Diet: renal diet DVT ppx: Heparin 5000 SC Q12H GI ppx: Protonix IV. Code status: DNR. Case disclosed with Attending Dr. Amrit Lee PGY1 Attending Provider Attestation/Addendum I reviewed labs, imaging, EKG, home medications and prior available records. Face to face evaluation was performed by me. I have personally examined the patient and discussed assessment and plan with the IM team. I reviewed the resident note and agree with the plan with exceptions as below. Acute encephalopathy, resolved Acute hypoxic respiratory failure, status post intubation, s/p extubation ESRD on hemodialysis HFrEF EF 45 to 50% Atrial fibrillation with controlled ventricular rhythm PAD Gangrene of toes and fingers, in the setting of severe PAD in the vasopressors Non-STEMI Clotting of dialysis fistula Continue IV vancomycin till 04/05 Remove temporary dialysis line. Plan for a permacath on 03/26 Outpatient follow-up with vascular surgery for the clotted fistula Continue amiodarone. Outpatient follow-up with cardiology to discuss anticoagulation Outpatient follow-up with cardiology for cardiac externalization Continue aspirin and Plavix Outpatient follow-up with vascular surgery Continue hemodialysis per nephrology recommendations PT recommended SNF.
[2025-03-26] VITALS (19 sets, daily range): BP systolic 99–126; BP diastolic 59–70; PULSE 73–102; RESP 14–21; TEMP 35.9–36.9; O2SAT 87–100; BMI 34.5
[2025-03-26] MEDS: LEVALBUTEROL RT 0.31 MG/3 ML NEBU INH ×3 (01:10→18:54)
[2025-03-26] MEDS: SODIUM CL RT SOL 3% 4 ML NEBU (NON-FORMULARY) 3 ML INH ×2 (01:10→18:54)
[2025-03-26] MEDS: HYDROmorphone INJ 2 MG/ML VIAL 0.5 MG IVP ×5 (01:59→21:59)
[2025-03-26 06:39] LABS: Alanine Aminotransferase 115 U/L (10-49); Albumin, Serum 3.1 gm/dL (3.5-5.0); Albumin/Globulin Ratio 1.2 (1.2-2.2); Alkaline Phosphatase 132 U/L (46-116); Anion Gap 12 (7-16); Aspartate Amino Transferase 19 U/L (0-34); BUN/Creatinine Ratio 10 Ratio (12-20); Bilirubin,Total 0.8 mg/dL (0.3-1.2); Blood Urea Nitrogen 53 mg/dL (9-23); Calcium 7.8 mg/dL (8.3-10.6); Calcium (Corrected) 8.5 mg/dL (8.5-10.1); Chloride 98 mMol/L (98-107); Creatinine (Component) 5.4 mg/dL (0.6-1.3); Estimated Creatinine Clearance 21.2 mL/min (>60); Globulin 2.6 gm/dL (2.3-3.5); Glucose 111 mg/dL (74-106); Osmolality,Calculated 289 (275-295); Potassium 5.1 mMol/L (3.4-5.1); Sodium 137 mMol/L (136-145); Total Protein 5.7 gm/dL (5.7-8.2); eGFR 12 See Note
[2025-03-26 07:27] LABS: Vancomycin,Random 13.1 mcg/mL
[2025-03-26 07:56] LABS: Basophils % (Auto) 0 % (0-2.5); Eosinophils % (Auto) 0 % (0-10); Hematocrit 22.9 % (41.0-53.0); Immature Granulocytes % (Auto) 1 % (0-0); Immature Granulocytes Auto 0.07 Thou/mm3 (0.00-0.00); Lymphocytes # (Auto) 0.5 Thou/mm3 (1.0-4.8); Lymphocytes % (Auto) 6 % (10-50); Mean Corpuscular HGB Conc 30.6 g/dl (31.0-37.0); Mean Corpuscular Hemoglobin 30.8 pg (25.0-35.0); Mean Corpuscular Volume 101 fL (80-100); Monocytes # (Auto) 1.3 Thou/mm3 (0.0-0.8); Monocytes % (Auto) 14 % (0-12); Neutrophils # (Auto) 6.9 Thou/mm3 (1.8-7.7); Neutrophils % (Auto) 79 % (37-80); Nucleated Red Blood Cell % 0 /100 WBC (0); Platelet Count 143 Thou/mm3 (140-440); RDW Standard Deviation 62.7 fL (35.1-43.9); Red Blood Count 2.27 Miln/mm3 (4.50-5.90); White Blood Count 8.8 Thou/mm3 (3.8-10.6)
--- NOTE | 2025-03-26 07:56 | XR_ITS ---
Ultrasound-guided needle placement right internal jugular vein Permanent tunneled dialysis catheter insertion, percutaneous Fluoroscopy AP chest, portable, single view INDICATIONS: Renal failure, need for stat and long-term dialysis Date and time of procedure: March 26, 2025 1016 hours Informed consent provided Technique: A timeout was completed verifying correct patient, procedure, site, positioning, and special equipment if applicable. The patient was placed in a dependent position appropriate for dialysis catheter placement based on the vein to be cannulated. The patient'sright neck was prepped and draped in sterile fashion. Maximum Sterile Barrier Technique used including cap, mask, sterile gown, sterile gloves, and sterile full body drape. If ultrasound technique used: sterile gel and sterile probe covers. Hand Hygiene performed using proper scrub, soap and water, or alcohol-based hand rub. 1% lidocaine was used to anesthetize the surrounding skin area The Site [employer] portable ultrasound apparatus utilized to confirm patency of the right internal blood or vein Utilizing ultrasonographic guidance successful 21-gauge needle puncture into the right internal jugular vein Ultrasound images were recorded and stored. Vessel micropuncture was performed with 21-gauge needle. 0.18 wire guide is introduced into the vein. 0.18 wire is introduced into the vena cava under fluoroscopy. Subcutaneous tunnel formed in the upper chest. Permanent tunneled dialysis catheter placed in the subcutaneous tunnel. Dilators were introduced over the J-wire guide. Tunneled dialysis catheter is introduced through a dilator with venous sheath into the superior vena cava under fluoroscopic guidance. The catheter is sutured in place to the skin and a sterile dressing applied. Perfusion to the extremity distal to the point of catheter insertion is checked and found to be adequate Attending radiologist was present for the entire procedure Estimated blood loss4 cc. The patient tolerated the procedure well and there were no complications Impression: Successful ultrasound-guided needle placement right internal jugular vein Successful permanent tunneled dialysis catheter insertion, percutaneous Fluoroscopy 0.6 minutes radiation dose 5.60 milligray 1 spot fluoroscopic chest film. AP chest performed at completion procedure demonstrates satisfactory position dialysis catheter. May use dialysis catheter.
[2025-03-26 08:04] LABS: INR 1.1 (0.9-1.3); Partial Thromboplastin Time 22.8 Seconds (22.0-36.0); Prothrombin Time 11.5 Seconds (9.0-12.2)
--- NOTE | 2025-03-26 08:16 | ESPR_ITS ---
<Statement entered by Yanci Villalobos MD - 03/27/25 16:33> I personally evaluated the patient at bedside with primary team and PGY 3 agree with the treatment plan recommendation patient continues have severe problems with mainly gangrenous changes right hand and left lower extremity hemodynamically stable remains in A-fib rate controlled anticoagulation withheld since he may require angiogram. Pain medications being given is tolerating well no evidence of heart failure. Discussed all options we will monitor the patient closely plan on doing coronary angiogram on Saturday possibly from femoral approach and check right upper extremity angiogram and left lower extremity angiogram with possible at the same time Documentation for date of: 03/26/25 Subjective Subjective Interval history: Patient was examined bedside this morning, no acute overnight event. He got his new dialysis catheter today . will plan angiogram for him of his coronary, leg and arm possibly on Saturday or Sat, once he is more stable . Exam Vital Signs Temp Pulse Resp BP Pulse Ox O2 Del Method O2 Flow Rate 98.4 F 91 18 99/62 95 Nasal Cannula 2 03/26/25 08:00 03/26/25 08:00 03/26/25 08:00 03/26/25 08:00 03/26/25 08:00 03/26/25 08:00 03/26/25 08:00 FiO2 30 03/20/25 13:21 Narrative Exam General: Awake and despondent, but conversational. Chronically ill-appearing. HEENT: Normocephalic, atraumatic, mucous membranes moist. On 3L NC. Heart: Regular rate and rhythm, normal S1 and S2, no murmurs. Lungs: Clear to auscultation with no wheezing or crackles. Abdomen: Soft, nondistended, nontender, positive bowel sounds. ?No guarding or rebound tenderness. Neurologic: Alert and oriented x3, no gross neurological deficit, Extremities: Right upper extremity with blackened and shriveled finger tips. Right BKA with dark ischemic changes. Left lower and upper extremity spots of ischemic reddened to darkened skin. Skin: Scattered red to brown-black ischemic skin changes of the extremities. Objective Labs 03/26/25 12:25 03/26/25 05:24 Labs: Laboratory Results - last 24 hr 03/26/25 03/26/25 05:24 07:36 WBC 8.8 D RBC 2.27 L Hgb 7.0 L Hct 22.9 L MCV 101 H MCH 30.8 MCHC 30.6 L RDW Std Deviation 62.7 H Plt Count 143 Neut % (Auto) 79 Lymph % (Auto) 6 L White % (Auto) 14 H Eos % (Auto) 0 Baso % (Auto) 0 Neut # (Auto) 6.9 Lymph # (Auto) 0.5 L White # (Auto) 1.3 H Eos # (Auto) 0.0 Baso # (Auto) 0.0 Immature Gran # (Auto) 0.07 H Absolute Nucleated RBC 0.00 Immature Gran % 1 H Nucleated RBC % 0 PT 11.5 D INR 1.1 APTT 22.8 Sodium 137 Potassium 5.1 Chloride 98 Carbon Dioxide 27.0 Anion Gap 12 BUN 53 H Creatinine 5.4 H* D Estim Creat Clear Calc 21.2 L eGFR 12 L* BUN/Creatinine Ratio 10 L Glucose 111 H Calculated Osmolality 289 Calcium 7.8 L Corrected Calcium 8.5 Total Bilirubin 0.8 AST 19 ALT 115 H Alkaline Phosphatase 132 H D Total Protein 5.7 Albumin 3.1 L Globulin 2.6 Albumin/Globulin Ratio 1.2 Random Vancomycin 13.1 ABG Interpretation ABG results: 03/14/25 03/14/25 03/14/25 14:44 16:44 18:53 ABG pH 7.03 L* 7.04 L* 7.10 L* ABG pCO2 43 50 H 46 ABG pO2 86 128 H D 57 L* D ABG HCO3 11 L 13 L 14 L ABG O2 Saturation 91 97 78 L ABG Base Excess -19 L -17 L -15 L VBG pH VBG pCO2 VBG pO2 VBG Base Excess 03/14/25 03/15/25 03/15/25 21:20 05:07 12:28 ABG pH 7.21 L D 7.41 D ABG pCO2 32 D 31 L ABG pO2 116 H D 74 L D ABG HCO3 13 L 20 ABG O2 Saturation 97 95 ABG Base Excess -14 L -4 L VBG pH 7.43 VBG pCO2 34 L VBG pO2 37 VBG Base Excess -1 03/16/25 03/16/25 03/16/25 04:51 11:48 19:30 ABG pH 7.46 H 7.22 L D 7.38 D ABG pCO2 29 L 66 H D 48 D ABG pO2 78 L 79 L 236 H D ABG HCO3 21 27 H 29 H ABG O2 Saturation 96 91 100 H ABG Base Excess -2 -2 3 VBG pH VBG pCO2 VBG pO2 VBG Base Excess 03/17/25 03/18/25 03/19/25 04:53 09:27 04:46 ABG pH 7.38 7.35 ABG pCO2 49 H 48 ABG pO2 78 L D 92 ABG HCO3 29 H 26 ABG O2 Saturation 95 98 ABG Base Excess 3 0 VBG pH 7.34 VBG pCO2 54 D VBG pO2 34 VBG Base Excess 2 03/24/25 22:00 ABG pH 7.33 L ABG pCO2 48 ABG pO2 233 H ABG HCO3 25 ABG O2 Saturation 101 H ABG Base Excess -1 VBG pH VBG pCO2 VBG pO2 VBG Base Excess Quality Measures Quality Measures VTE prophylaxis Assessment & Plan Assessment Current Active Medications: Generic Name Dose Route Start Last Admin Trade Name Freq PRN Reason Stop Dose Admin Acetaminophen 650 mg 03/20/25 11:35 03/21/25 06:39 Acetaminophen 325 Mg Tablet PO 04/19/25 11:34 650 mg Q6HR PRN Administration pain and Fever >100.4 Protocol Amiodarone HCl 200 mg 03/19/25 21:00 03/25/25 20:56 Amiodarone Hcl 200 Mg Tablet GT 04/18/25 20:59 200 mg BID MONTSERRAT Administration Aspirin 81 mg 03/16/25 09:00 03/25/25 11:33 Aspirin 81 Mg Chew GT 04/15/25 08:59 Not Given QDAY MONTSERRAT Clopidogrel Bisulfate 75 mg 03/15/25 10:53 03/25/25 11:34 Clopidogrel Bisulfate 75 Mg Tablet GT 04/14/25 10:29 Not Given QDAY MONTSERRAT Dextrose 25 ml 03/14/25 20:38 03/20/25 23:30 Dextrose 50%-Water Inj 50 Ml Syringe IV 04/13/25 20:37 25 ml Q15MIN PRN Administration BG 50-70 responsive npo pt Dextrose 50 ml 03/14/25 20:38 Dextrose 50%-Water Inj 50 Ml Syringe IV 04/13/25 20:37 Q15MIN PRN BG <50 OR BG <70 & pt unresponsive Glucagon 1 mg 03/14/25 17:36 Glucagon Inj 1 Mg Vial IM Q15MIN PRN BG <70, and no IV access Heparin Sodium (Porcine) 3,000 unit 03/19/25 13:33 03/25/25 11:37 Heparin Sod Inj 1000 Unit/Ml Vial 10 Ml INDWELLCAT 04/02/25 13:32 3,000 unit PRN PRN Administration DIALYSIS Heparin Sodium (Porcine) 5,000 unit 03/23/25 21:00 03/25/25 20:54 Heparin Sod Inj 5000 Unit/Ml Vial SC 04/06/25 20:59 Not Given Q12HR MONTSERRAT Hydromorphone HCl 0.5 mg 03/23/25 14:00 03/26/25 05:58 Hydromorphone Inj 2 Mg/Ml Vial IVP 03/28/25 13:59 0.5 mg Q4HR MONTSERRAT Administration Albumin Human 25 gm in 100 mls @ 100 mls/min 03/25/25 08:41 03/25/25 09:54 Albuminar-25 Ivpb IV Infused PRN PRN Infusion DIALYSIS Vancomycin/Sodium Chloride 100 mls @ 120 mls/hr 03/26/25 10:00 Vancomycin/Ns 500 Mg Ivpb IV 03/26/25 10:49 X1 ONE Insulin Human Lispro 0 unit 03/22/25 11:30 03/26/25 07:25 Insulin Lispro (Admelog) 1 Unit/0.01 Ml Unit SC 04/21/25 11:29 Not Given ACHS MONTSERRAT Protocol Levalbuterol HCl 0.31 mg 03/20/25 12:15 03/26/25 01:10 Levalbuterol Rt 0.31 Mg/3 Ml Nebu INH 04/19/25 12:14 0.31 mg Q6HRRT MONTSERRAT Administration Metoprolol Succinate 25 mg 03/22/25 09:00 03/25/25 20:56 Metoprolol Succinate Xl 25 Mg Tabcr PO 04/21/25 08:59 25 mg BID MONTSERRAT Administration Midodrine 10 mg 03/19/25 18:19 Midodrine 5 Mg Tablet GT 04/18/25 21:59 TID PRN MAP below 65 Ondansetron HCl 4 mg 03/14/25 17:31 Ondansetron Inj 2 Mg/Ml Inj 2 Ml IV 04/13/25 17:30 Q6H PRN NAUSEA OR VOMITING Protocol Oxycodone/Acetaminophen 1 tab 03/24/25 12:00 03/25/25 23:12 Oxycodone/Apap 5/325 Tablet PO 03/29/25 11:59 1 tab Q6HR PRN Administration BREAKTHROUGH PAIN 4-10 Pantoprazole Sodium 40 mg 03/14/25 21:00 03/25/25 20:56 Pantoprazole Inj 40 Mg Vial IVP 04/13/25 20:59 40 mg BID MONTSERRAT Administration Pharmacy Consult 1 each 03/24/25 17:00 03/25/25 12:08 Vancomycin Pharmacy To Dose 1 Each Each IV 04/23/25 16:59 Not Given QDAY MONTSERRAT Sodium Chloride 3 ml 03/17/25 19:00 03/26/25 01:10 Sodium Cl Rt Marjorie 3% 4 Ml Nebu (Non-Formulary) INH 04/16/25 18:59 3 ml Q6HRRT MONTSERRAT Administration Plan 49-year-old male with past medical history of DM2, hypertension, ESRD (HD ), HFpEF (EF 55% on 2021), and right BKA due to osteomyelitis was initially admitted to the ICU on 03/14/2025 for acute hypoxic respiratory failure, acute encephalopathy, and shock. He was subsequently extubated and downgraded to telemetry on 03/20/2025 for continuation of care. #Status post acute non-ST segment elevation myocardial infarction, NSTEMI possible type 2 troponin versus NSTEMI. #SVT episodes #Afib, rate controlled #Decompensated HFpEF (EF 45-50%) Patient s/p intubation and pressor support in ICU for shock, distributive secondary to sepsis versus cardiogenic. Patient initially presented to ED in SVT and required shock x1. Troponin initially 1.856 uptrended to 7.899 peak. Patient was treated for pneumonia. Patient was able to wean off pressors, extubated, now downgraded to tele. CT LER showed diffuse stenosis on the arteries of the LLE, occlusions in almost all major arteries. Echo done on 03/16/2025 showed LV appears normal with EF 45-50%. Septal dyskinesis is seen, RV appears normal with RVSP 50 mmHg. Mildly dilated LA & RA Mild mitral regurgitation Mild-Moderate TR. 03/21, patient had 2 rapid response events for SVT in the 170-200s which self converted in minutes. -Continue amiodarone 200 mg BID -Continue metoprolol succinate 25 mg BID -Maintain K >4.0 and Mag >2.0 -Continue dialysis per Nephro -03/26/2025:will plan angiogram for him of his coronary, leg and arm possibly on Saturday or Sat, once he is more stable .Left ventricular function is preserved. #Extensive atherosclerotic cardiovascular disease with bilateral femoral artery occlusions and distal trifurcation disease with gangrenous changes. -Patient has history of right extremity BKA due to severe PAD. This admission after severe shock requiring pressor support patient subsequently developed ischemia of the right and left fingertips. Vascular surgeon stated that the patient is not a candidate at this time for revascularization, however stated that would discuss case with general surgeon. Likely upper extremity digits affected by vasopressor support in combination with severe PAD causing limb ischemia. -Later down the line consider extremity angiogram to visualize upper and lower extremity artery flow and possible need for stent, however patient must have bacteremia treated first -Continue aspirin 81 mg qday -Continue clopidogrel 75 mg qday -Continue antibiotics for now #GPC bacteremia #Leukocytosis #Staph hemolyticus bacteremia Patient tested for gram-positive cocci 2/2 blood cultures on 03/21/2025, first positive blood cultures this admission. Patient has not been febrile, however has had persistent leukocytosis. Patient subsequently getting all lines removed after receiving dialysis. -Repeat echo on 03/23- Aortic valve leaflets with sclerosis calcification thickening of the cusp but no stenosis. No evidence of vegetation detected. Mitral valve annular show mild calcification mitral leaflets with thickening regurgitations.Left atrium appears to be mildly dilated.Left ventricle is normal with evidence of mild anteroseptal hypokinesis with well-preserved ejection fraction of 50 to 55%. Right heart structures normal. Mild tricuspid regurgitation with no evidence of pulmonary hypertension normal PA pressures. Tricuspid and pulmonic valves appear normal no vegetations. Compared to the study a week ago no change except some improvement in LV function. -Repeat blood cultures 24 hrs is negative. -Continue antibiotics - he got a new dialysis catheter today #Hypotension- resolved S/p shock weaned off pressors, multifactorial likely distributive and some component cardiogenic. -Continue midodrine 10 mg TID Rest of conditions to continue current management per primary team: #Acute hypoxic respiratory failure #Community-acquired pneumonia, Stenotrophomonas maltophilia #ESRD (HD on ) #History of type 2 diabetes #Respiratory acidosis, resolved #HAGMA, resolved #Lactic acidosis, resolved #Hyperkalemia, resolved #Shock liver, resolved #Possible GI bleed #Macrocytic anemia #Thrombocytopenia #Hematemesis, resolved #Hypoglycemia, resolved Discussed the patient with my attending Dr Wilfredo Granados MD,PGY-3
--- NOTE | 2025-03-26 09:54 | ESPR_ITS ---
Subjective Subjective Interval history: abx thru 04/05 with weekly cbc, renal panel, esr ok for tdc if not done already Exam Vital Signs Temp Pulse Resp BP Pulse Ox O2 Del Method O2 Flow Rate 98.4 F 91 18 99/62 95 Nasal Cannula 2 03/26/25 08:00 03/26/25 08:00 03/26/25 08:00 03/26/25 08:00 03/26/25 08:00 03/26/25 08:00 03/26/25 08:00 FiO2 30 03/20/25 13:21 Narrative Exam no objection to amputation. abx are due to hd associated bacteremia with ischemia Objective - Internal Medicine Labs 03/26/25 07:36 03/26/25 05:24 Labs: Laboratory Results - last 24 hr 03/26/25 03/26/25 05:24 07:36 WBC 8.8 D RBC 2.27 L Hgb 7.0 L Hct 22.9 L MCV 101 H MCH 30.8 MCHC 30.6 L RDW Std Deviation 62.7 H Plt Count 143 Neut % (Auto) 79 Lymph % (Auto) [address] [place] % (Auto) 14 H Eos % (Auto) 0 Baso % (Auto) 0 Neut # (Auto) 6.9 Lymph # (Auto) 0.[address] [place] # (Auto) 1.3 H Eos # (Auto) 0.0 Baso # (Auto) 0.0 Immature Gran # (Auto) 0.07 H Absolute Nucleated RBC 0.00 Immature Gran % 1 H Nucleated RBC % 0 PT 11.5 D INR 1.1 APTT 22.8 Sodium 137 Potassium 5.1 Chloride 98 Carbon Dioxide 27.0 Anion Gap 12 BUN 53 H Creatinine 5.4 H* D Estim Creat Clear Calc 21.2 L eGFR 12 L* BUN/Creatinine Ratio 10 L Glucose 111 H Calculated Osmolality 289 Calcium 7.8 L Corrected Calcium 8.5 Total Bilirubin 0.8 AST 19 ALT 115 H Alkaline Phosphatase 132 H D Total Protein 5.7 Albumin 3.1 L Globulin 2.6 Albumin/Globulin Ratio 1.2 Random Vancomycin 13.1 ABG Interpretation ABG results: 03/14/25 03/14/25 03/14/25 14:44 16:44 18:53 ABG pH 7.03 L* 7.04 L* 7.10 L* ABG pCO2 43 50 H 46 ABG pO2 86 128 H D 57 L* D ABG HCO3 11 L 13 L 14 L ABG O2 Saturation 91 97 78 L ABG Base Excess -19 L -17 L -15 L VBG pH VBG pCO2 VBG pO2 VBG Base Excess 03/14/25 03/15/25 03/15/25 21:20 05:07 12:28 ABG pH 7.21 L D 7.41 D ABG pCO2 32 D 31 L ABG pO2 116 H D 74 L D ABG HCO3 13 L 20 ABG O2 Saturation 97 95 ABG Base Excess -14 L -4 L VBG pH 7.43 VBG pCO2 34 L VBG pO2 37 VBG Base Excess -1 03/16/25 03/16/25 03/16/25 04:51 11:48 19:30 ABG pH 7.46 H 7.22 L D 7.38 D ABG pCO2 29 L 66 H D 48 D ABG pO2 78 L 79 L 236 H D ABG HCO3 21 27 H 29 H ABG O2 Saturation 96 91 100 H ABG Base Excess -2 -2 3 VBG pH VBG pCO2 VBG pO2 VBG Base Excess 03/17/25 03/18/25 03/19/25 04:53 09:27 04:46 ABG pH 7.38 7.35 ABG pCO2 49 H 48 ABG pO2 78 L D 92 ABG HCO3 29 H 26 ABG O2 Saturation 95 98 ABG Base Excess 3 0 VBG pH 7.34 VBG pCO2 54 D VBG pO2 34 VBG Base Excess 2 03/24/25 22:00 ABG pH 7.33 L ABG pCO2 48 ABG pO2 233 H ABG HCO3 25 ABG O2 Saturation 101 H ABG Base Excess -1 VBG pH VBG pCO2 VBG pO2 VBG Base Excess Assessment & Plan A&P Narrative possible iv cath bacteremia ckd 5 pvd chf with normal ef noted. but 3+ diastolic dyafuntion noted. had ischemia of limbs originally but that has stabilized. hx idu noted. will treat for line associated bacteremia with vanco with hd thru 04/05 ok for new tdc at your convenience role of levaquin uncertain. had it for a few days and it was stopped. with no resp sx, ok to leave off for now s malto is a debatable pathogen. finish rx with hd as outpt ok with me. will see again prn Time Spent With Patient Time: Total time spent is greater than 50% in coordination of care (as documented) at patient's floor/unit and/or counseling patient:
--- NOTE | 2025-03-26 10:58 | PC.SS ---
SS follow up note; Possible discharge tomorrow.
[2025-03-26] MEDS: HEPARIN SOD LOCK SYR 100 UNIT/ML 500 UNIT IV (11:00)
[2025-03-26] MEDS: fentaNYL CIT INJ 50 mCg/ML AMP 2ML IVP (11:08)
[2025-03-26] MEDS: LIDOCAINE INJ PF 1% 30 ML VIAL 12 ML INFL (11:10)
[2025-03-26] MEDS: HEPARIN SOD INJ 1000 UNIT/ML VIAL 3800 UNIT INDWELLCAT (11:30)
--- NOTE | 2025-03-26 11:51 | PD.RESPRO ---
Documentation for date of: 03/26/25 Subjective Subjective Interval history: Overnight, no acute events reported. Patient has been saturating well with 2 L nasal cannula. Patient denies any complaints at this time. Patient is scheduled for tunneled catheter her right IJ this morning patient vital signs are stable. Patient's hemoglobin was 7. Will repeat patient's H&H in the afternoon, and transfuse accordingly. Patient will continue with IV antibiotics until 04/05/2025 with hemodialysis. Prior to discharge, patient would need to call do a walk test to qualify for home oxygen. Exam Vital Signs Temp Pulse Resp BP Pulse Ox O2 Del Method O2 Flow Rate 98.4 F 82 16 126/62 96 Nasal Cannula 2 03/26/25 08:00 03/26/25 11:03/26/25 11:03/26/25 11:03/26/25 11:03/26/25 11:03/26/25 11:25 FiO2 30 03/20/25 13:21 Narrative Exam General Appearance: Patient appears older than stated age. In no apparent distress, well-developed, obese. HEENT: NC/AT, no scleral icterus, no conjunctival pallor, MMM Lungs: CTAB, no wheezes or crackles appreciated CVS: Irregular rhythm, S1/S2 heard, no murmurs or rubs appreciated ABD: Soft, non-tender, non-distended, BS + in all 4 quadrants EXT: Right BKA with cyanotic changes, tender to palpation, left foot toes noted to be discolored and necrotic, RUE 2nd and 3rd digits show necrotic changes at the tips with some bullae. Neuro: A&O x 3. No gross neurological deficits. Motor and sensory grossly intact in B/L UL and LL. Psych: Appropriate mood and affect Objective Labs 03/27/25 05:43 03/27/25 05:43 Labs: Laboratory Results - last 24 hr 03/26/25 03/26/25 05:24 07:36 WBC 8.8 D RBC 2.27 L Hgb 7.0 L Hct 22.9 L MCV 101 H MCH 30.8 MCHC 30.6 L RDW Std Deviation 62.7 H Plt Count 143 Neut % (Auto) 79 Lymph % (Auto) 6 L Cotton % (Auto) 14 H Eos % (Auto) 0 Baso % (Auto) 0 Neut # (Auto) 6.9 Lymph # (Auto) 0.5 L Cotton # (Auto) 1.3 H Eos # (Auto) 0.0 Baso # (Auto) 0.0 Immature Gran # (Auto) 0.07 H Absolute Nucleated RBC 0.00 Immature Gran % 1 H Nucleated RBC % 0 PT 11.5 D INR 1.1 APTT 22.8 Sodium 137 Potassium 5.1 Chloride 98 Carbon Dioxide 27.0 Anion Gap 12 BUN 53 H Creatinine 5.4 H* D Estim Creat Clear Calc 21.2 L eGFR 12 L* BUN/Creatinine Ratio 10 L Glucose 111 H Calculated Osmolality 289 Calcium 7.8 L Corrected Calcium 8.5 Total Bilirubin 0.8 AST 19 ALT 115 H Alkaline Phosphatase 132 H D Total Protein 5.7 Albumin 3.1 L Globulin 2.6 Albumin/Globulin Ratio 1.2 Random Vancomycin 13.1 ABG Interpretation ABG results: 03/14/25 03/14/25 03/14/25 14:44 16:44 18:53 ABG pH 7.03 L* 7.04 L* 7.10 L* ABG pCO2 43 50 H 46 ABG pO2 86 128 H D 57 L* D ABG HCO3 11 L 13 L 14 L ABG O2 Saturation 91 97 78 L ABG Base Excess -19 L -17 L -15 L VBG pH VBG pCO2 VBG pO2 VBG Base Excess 03/14/25 03/15/25 03/15/25 21:20 05:07 12:28 ABG pH 7.21 L D 7.41 D ABG pCO2 32 D 31 L ABG pO2 116 H D 74 L D ABG HCO3 13 L 20 ABG O2 Saturation 97 95 ABG Base Excess -14 L -4 L VBG pH 7.43 VBG pCO2 34 L VBG pO2 37 VBG Base Excess -1 03/16/25 03/16/25 03/16/25 04:51 11:48 19:30 ABG pH 7.46 H 7.22 L D 7.38 D ABG pCO2 29 L 66 H D 48 D ABG pO2 78 L 79 L 236 H D ABG HCO3 21 27 H 29 H ABG O2 Saturation 96 91 100 H ABG Base Excess -2 -2 3 VBG pH VBG pCO2 VBG pO2 VBG Base Excess 03/17/25 03/18/25 03/19/25 04:53 09:27 04:46 ABG pH 7.38 7.35 ABG pCO2 49 H 48 ABG pO2 78 L D 92 ABG HCO3 29 H 26 ABG O2 Saturation 95 98 ABG Base Excess 3 0 VBG pH 7.34 VBG pCO2 54 D VBG pO2 34 VBG Base Excess 2 03/24/25 22:00 ABG pH 7.33 L ABG pCO2 48 ABG pO2 233 H ABG HCO3 25 ABG O2 Saturation 101 H ABG Base Excess -1 VBG pH VBG pCO2 VBG pO2 VBG Base Excess Quality Measures Quality Measures VTE prophylaxis Assessment & Plan Assessment Current Active Medications: Generic Name Dose Route Start Last Admin Trade Name Freq PRN Reason Stop Dose Admin Acetaminophen 650 mg 03/20/25 11:35 03/21/25 06:39 Acetaminophen 325 Mg Tablet PO 04/19/25 11:34 650 mg Q6HR PRN Administration pain and Fever >100.4 Protocol Amiodarone HCl 200 mg 03/19/25 21:00 03/25/25 20:56 Amiodarone Hcl 200 Mg Tablet GT 04/18/25 20:59 200 mg BID MONTSERRAT Administration Aspirin 81 mg 03/16/25 09:00 03/25/25 11:33 Aspirin 81 Mg Chew GT 04/15/25 08:59 Not Given QDAY MONTSERRAT Clopidogrel Bisulfate 75 mg 03/15/25 10:53 03/25/25 11:34 Clopidogrel Bisulfate 75 Mg Tablet GT 04/14/25 10:29 Not Given QDAY MONTSERRAT Dextrose 25 ml 03/14/25 20:38 03/20/25 23:30 Dextrose 50%-Water Inj 50 Ml Syringe IV 04/13/25 20:37 25 ml Q15MIN PRN Administration BG 50-70 responsive npo pt Dextrose 50 ml 03/14/25 20:38 Dextrose 50%-Water Inj 50 Ml Syringe IV 04/13/25 20:37 Q15MIN PRN BG <50 OR BG <70 & pt unresponsive Glucagon 1 mg 03/14/25 17:36 Glucagon Inj 1 Mg Vial IM Q15MIN PRN BG <70, and no IV access Heparin Sodium (Porcine) 3,000 unit 03/19/25 13:33 03/25/25 11:37 Heparin Sod Inj 1000 Unit/Ml Vial 10 Ml INDWELLCAT 04/02/25 13:32 3,000 unit PRN PRN Administration DIALYSIS Heparin Sodium (Porcine) 5,000 unit 03/23/25 21:00 03/26/25 10:48 Heparin Sod Inj 5000 Unit/Ml Vial SC 04/06/25 20:59 Not Given Q12HR MONTSERRAT Hydromorphone HCl 0.5 mg 03/23/25 14:00 03/26/25 10:50 Hydromorphone Inj 2 Mg/Ml Vial IVP 03/28/25 13:59 Not Given Q4HR MONTSERRAT Albumin Human 25 gm in 100 mls @ 100 mls/min 03/25/25 08:41 03/25/25 09:54 Albuminar-25 Ivpb IV Infused PRN PRN Infusion DIALYSIS Insulin Human Lispro 0 unit 03/22/25 11:30 03/26/25 07:25 Insulin Lispro (Admelog) 1 Unit/0.01 Ml Unit SC 04/21/25 11:29 Not Given ACHS [facility] Protocol Levalbuterol HCl 0.31 mg 03/20/25 12:15 03/26/25 09:46 Levalbuterol Rt 0.31 Mg/3 Ml Nebu INH 04/19/25 12:14 Not Given Q6HRRT MON[place]ERRAT Metoprolol Succinate 25 mg 03/22/25 09:00 03/25/25 20:56 Metoprolol Succinate Xl 25 Mg Tabcr PO 04/21/25 08:59 25 mg BID MONTSERRAT Administration Midodrine 10 mg 03/19/25 18:19 Midodrine 5 Mg Tablet GT 04/18/25 21:59 TID PRN MAP below 65 Ondansetron HCl 4 mg 03/14/25 17:31 Ondansetron Inj 2 Mg/Ml Inj 2 Ml IV 04/13/25 17:30 Q6H PRN NAUSEA OR VOMITING Protocol Oxycodone/Acetaminophen 1 tab 03/24/25 12:00 03/25/25 23:12 Oxycodone/Apap 5/325 Tablet PO 03/29/25 11:59 1 tab Q6HR PRN Administration BREAKTHROUGH PAIN 4-10 Pantoprazole Sodium 40 mg 03/14/25 21:00 03/25/25 20:56 Pantoprazole Inj 40 Mg Vial IVP 04/13/25 20:59 40 mg BID MONTSERRAT Administration Pharmacy Consult 1 each 03/24/25 17:00 03/26/25 10:50 Vancomycin Pharmacy To Dose 1 Each Each IV 04/23/25 16:59 Not Given QDAY MONTSERR[place] Sodium Chloride 3 ml 03/17/25 19:00 03/26/25 09:46 Sodium Cl Rt Marjorie 3% 4 Ml Nebu (Non-Formulary) INH 04/16/25 18:59 Not Given Q6HRRT MONTSERRAT Plan Mr. Mcclain is a 49-year-old male with past medical history significant for DM2, hypertension, ESRD (HD ), HFpEF (EF 55% on 2021), and right BKA due to osteomyelitis who initially presented with altered mental status and admitted to ICU on 03/14/2025 for acute hypoxic respiratory failure, acute encephalopathy, and shock. Patient was extubated and downgraded to telemetry on 03/20/2025. #Staph Hemolyticus bacteremia #CLABSI Patient grew Staphylococcus hemolyticus from blood cultures on 03/21/2025 Repeat blood cultures on 03/14/2025 have been negative for the past 48 hours Repeat echo did not show any vegetations Plan: Continue Vancoymycin started 03/23- 04/05 Right IJ cath ordered #A-fib with RVR, rate controlled- stable #MAT #SVT Patient again went into SVT last night and was shocked again, but on repeat EKG showed to be in A-fib RVR. Patient again went into SVT and received adenosine 6mg x1 and adenosine 12mg x1 before being cardioverted. Repeat EKG showed what appears to be MAT. [id number] score of 3 points indicating 3.2% risk of stroke per year HAS-BLED score of 5 points Plan: Continue amiodarone 200mg BID Metoprolol succinate 25mg daily Keep Potassium >4 and Mg >2 Plating Tank Operator Apprentice consulted, appreciate recommendations #Possible acute vs chronic limb ischemia. #Peripheral Vascular disease, severe Abdomen CTA with runoff that showed occlusion of multiple arteries including the left radial, gluteal, and tibial arteries as well as 90% stenosis of the left superficial femoral artery Also showed 80% stenosis of right superficial femoral artery. Overnight ICU team spoke with vascular surgeon at [facility] who stated that at this time patient was not a candidate for transfer for revascularization. Patient understands that he may lose multiple digits and even his left lower foot. Most likely needs to follow-up with vascular surgeon as an outpatient. Plan: Nitroglycerin topical ointment. Will continue with aspirin and Plavix for now, held today for procedure today, will resume status post discharge Pt will need outpatient follow up with vascular surgeon #Acute hypoxic respiratory failure, improved. #Stenotrophomonas maltophilia pneumonia. #Respiratory acidosis, resolved. #Septic shock, resolved. Intubated on 03/14/2025. Sputum grew stenotrophomonas maltophilia. Extubated on 03/20/2025. Zosyn 03/14/2025-03/17/2025 Vancomycin 03/14/2025 - 03/15/2025. Discontinued levaquin 500mg q48hr 03/17/2025- 03/21 Plan: Continue hypertonic saline inhaled solution and chest physiotherapy. Midodrine 10mg TID as needed. #Troponinemia?resolved Troponins peaked at 7.899 and down trended to 7.04. Echo 03/16/2025 showed EF of 45 to 50% and septal dyskinesis. Echo on 03/23/2025 shows some improvement and left ventricle function with an EF of 50 to 55% Plan: Will continue on aspirin, Plavix at discharge No plans for heart catheterization at this time given multiple underlying issues. Cardiology consulted, appreciate recommendations. #HFrEF (EF 50-55% on 2024). Echo on 03/16/2025 showed EF of 45 to 50% and septal dyskinesis. Echo on 03/23/2025 shows some improvement and left ventricle function with an EF of 50 to 55% Plan: Will continue with hemodialysis with fluid removal. Daily weights. Strict JENN's. fluid restriction Patient will need to have a walk test prior to O2 delivery to home #ESRD (HD on ). #HAGMA, resolved. #Lactic acidosis, resolved. Patient was on hemodialysis and had AV fistula, but was clotted therefore cannot be used. Plan: Plan for tunneled dialysis catheter insertion by IR today Continue hemodialysis as scheduled. Electrical Technician Instructor Dr. Pleitez following, appreciate recommendations Avoid nephrotoxic agents. Renally dose medications. #Hematemesis. #Macrocytic anemia. #Thrombocytopenia. Patient's hemoglobin was downtrending from 11.9 on admission Hemoglobin 7.9 and platelets 131 No active signs of bleeding Plan: Continue to monitor daily CBC Follow-up with repeat H&H this afternoon and transfuse if less than 7 #Transaminitis, improving #Hyperbilirubinemia, resolved #Hepatomegaly. Possible liver failure due to methamphetamine use? Could be due to shock liver versus hypoxia versus drug-induced. Hepatitis panel negative and abdominal ultrasound that shows some hepatomegaly with possible cirrhosis versus hepatocellular disease. Plan: Continue monitoring daily labs #Hx of DM2. ISS. Hypoglycemia protocol ordered. Hospital Maintenance: Diet: renal diet DVT ppx: Heparin 5000 SC Q12H GI ppx: Protonix IV. Code status: DNR. Patient's plan and care discussed with my attending, Dr. Amrit Hawthorne MD PGY-2 Attending Provider Attestation/Addendum I reviewed labs, imaging, EKG, home medications and prior available records. Face to face evaluation was performed by me. I have personally examined the patient and discussed assessment and plan with the IM team. I reviewed the resident note and agree with the plan with exceptions as below. Acute encephalopathy, resolved Acute hypoxic respiratory failure, status post intubation, s/p extubation ESRD on hemodialysis HFrEF EF 45 to 50% Atrial fibrillation with controlled ventricular rhythm PAD Gangrene of toes and fingers, in the setting of severe PAD in the vasopressors Non-STEMI Clotting of dialysis fistula Leukocytosis, improved H&H borderline. Follow-up repeat H&H His pain from PAD is severe requiring IV opiates Continue IV vancomycin till 04/05 Remove temporary dialysis line. Status post permacath on 03/26 Outpatient follow-up with vascular surgery for the clotted fistula Continue amiodarone. Outpatient follow-up with cardiology to discuss anticoagulation Outpatient follow-up with cardiology for cardiac externalization Continue aspirin and Plavix Outpatient follow-up with vascular surgery Continue hemodialysis per nephrology recommendations PT recommended SNF. However he was declined. Plan to go home and his will take care of him
[2025-03-26] MEDS: PANTOPRAZOLE INJ 40 MG VIAL IVP ×2 (12:12→20:52)
[2025-03-26] MEDS: VANCOMYCIN/NS 500 MG IVPB 100 ML 120 MG IV (12:13)
[2025-03-26] MEDS: oxyCODONE/APAP 5/325 TABLET 1 TAB PO (12:13)
[2025-03-26] MEDS: AMIODARONE HCL 200 MG TABLET GT ×2 (12:20→20:51)
[2025-03-26] MEDS: METOPROLOL SUCCINATE XL 25 MG TABCR PO ×2 (12:20→20:52)
[2025-03-26 12:47] LABS: Hematocrit 23.9 % (41.0-53.0)
[2025-03-26 12:48] LABS: Hemoglobin 7.4 g/dL (13.5-16.0)
--- NOTE | 2025-03-26 15:05 | PC.NURSE ---
PATEINT'S OXYGEN SATURATION ON ROOM AIR AT REST 82%, PLACED PATIENT ON 2LITERS OXYGEN, OXYGEN SATURATION CAME UP TO 95%.
--- NOTE | 2025-03-26 15:16 | PC.SS ---
SS follow up note; SS submitted [address] [facility]. Patient will discharge tomorrow
--- NOTE | 2025-03-26 16:30 | ESPR_ITS ---
Documentation for date of: 03/26/25 Subjective Subjective Interval history: Mr. Mcclain is a 49-year-old male with past medical history of type 2 diabetes mellitus, hypertension, end-stage renal disease (HD ), HFpEF (EF 50 to 55% 02/2025) and right BKA due to osteomyelitis who was brought in by ambulance to [facility] (Former[facility] emergency department on 03/14/2025 with a chief complaint of altered mental status. Patient was intubated secondary to inability to protect airway. On presentation patient's assisted with procuring history, per patient's patient had progressive shortness of breath and had change in mentation, patient was found to be in SVT when EMS arrived was shocked once and was converted to sinus rhythm. Patient also had to get additional sessions of hemodialysis due to increase in weight, last session of hemodialysis before admission to the hospital was on 12 March 2025. Patient also does have history of methamphetamine use, urine tox screen was positive for methamphetamine and marijuana on presentation. With the progression of hospital course patient was initially managed in the intensive care unit for acute hypoxic respiratory failure was found to have stenotrophomonas maltophilia pneumonia was treated with IV antibiotics, had significant lactic acidosis respiratory acidosis and high anion gap metabolic acidosis which improved in ICU patient did require CRRT and was eventually transition to hemodialysis, patient was eventually extubated on downgraded to telemetry on 03/20/2025. Patient's hospital stay is further complicated with possible acute versus chronic limb ischemia and underlying severe peripheral vascular disease, wire web worker discussed case with vascular surgeon at [facility] during the hospitalization, patient was a poor candidate for revascularization per documentation. Patient started on amiodarone for underlying atrial fibrillation and eventually infectious disease consulted for Staph haemolyticus bacteremia possible CLABSI. Patient continue to receive inpatient hemodialysis. 03/25/2025: Patient successfully completed 3 hours 4 minutes of dialysis session today, postdialysis weight 115.9 kg was hypotensive at times during the dialysis, tolerated dialysis well through the temporary dialysis catheter. Net fluid removed 0.5 L. Blood pressure was soft, received 2 bags of albumin during the dialysis session.Patient will need permanent dialysis catheter placement, will be scheduled with interventional radiology in a.m. after holding aspirin and Plavix. Patient will be made n.p.o. after midnight by primary team. 03/26/2025: Patient seen and examined at bedside, patient had permanent tunneled dialysis catheter placed today. Currently complains of some back pain. Patient will continue to receive IV antibiotics until 04/05/2025 with hemodialysis. Otherwise patient is stable, has no current complaints. Anticipate discharge in next 24 hours on supplemental oxygen.+ Exam Vital Signs Temp Pulse Resp BP Pulse Ox O2 Del Method O2 Flow Rate 97.8 F 90 15 119/70 98 Humidified Nasal Cannula 2 03/26/25 12:00 03/26/25 12:29 03/26/25 12:29 03/26/25 12:20 03/26/25 12:29 03/26/25 12:00 03/26/25 12:29 FiO2 30 03/20/25 13:21 Narrative Exam General: Awake and despondent, but conversational. Chronically ill-appearing. HEENT: Normocephalic, atraumatic, mucous membranes moist. On 3L NC. Heart: Regular rate and rhythm, normal S1 and S2, no murmurs. Lungs: Clear to auscultation with no wheezing or crackles. Abdomen: Soft, nondistended, nontender, positive bowel sounds. ?No guarding or rebound tenderness. Neurologic: Alert and oriented x3, no gross neurological deficit, Extremities: Right upper extremity with blackened and shriveled finger tips. Right BKA with dark ischemic changes. Left lower and upper extremity spots of ischemic reddened to darkened skin. Skin: Scattered red to brown-black ischemic skin changes of the extremities. Objective Labs 03/29/25 05:28 03/29/25 05:28 Labs: Laboratory Results - last 24 hr 03/26/25 03/26/25 03/26/25 05:24 07:36 12:25 WBC 8.8 D RBC 2.27 L Hgb 7.0 L 7.4 L Hct 22.9 L 23.9 L MCV 101 H MCH 30.8 MCHC 30.6 L RDW Std Deviation 62.7 H Plt Count 143 Neut % (Auto) 79 Lymph % (Auto) 6 L [place] % (Auto) 14 H Eos % (Auto) 0 Baso % (Auto) 0 Neut # (Auto) 6.9 Lymph # (Auto) 0.5 L [place] # (Auto) 1.3 H Eos # (Auto) 0.0 Baso # (Auto) 0.0 Immature Gran # (Auto) 0.07 H Absolute Nucleated RBC 0.00 Immature Gran % 1 H Nucleated RBC % 0 PT 11.5 D INR 1.1 APTT 22.8 Sodium 137 Potassium 5.1 Chloride 98 Carbon Dioxide 27.0 Anion Gap 12 BUN 53 H Creatinine 5.4 H* D Estim Creat Clear Calc 21.2 L eGFR 12 L* BUN/Creatinine Ratio 10 L Glucose 111 H Calculated Osmolality 289 Calcium 7.8 L Corrected Calcium 8.5 Total Bilirubin 0.8 AST 19 ALT 115 H Alkaline Phosphatase 132 H D Total Protein 5.7 Albumin 3.1 L Globulin 2.6 Albumin/Globulin Ratio 1.2 Random Vancomycin 13.1 ABG Interpretation ABG results: 03/14/25 03/14/25 03/14/25 14:44 16:44 18:53 ABG pH 7.03 L* 7.04 L* 7.10 L* ABG pCO2 43 50 H 46 ABG pO2 86 128 H D 57 L* D ABG HCO3 11 L 13 L 14 L ABG O2 Saturation 91 97 78 L ABG Base Excess -19 L -17 L -15 L VBG pH VBG pCO2 VBG pO2 VBG Base Excess 03/14/25 03/15/25 03/15/25 21:20 05:07 12:28 ABG pH 7.21 L D 7.41 D ABG pCO2 32 D 31 L ABG pO2 116 H D 74 L D ABG HCO3 13 L 20 ABG O2 Saturation 97 95 ABG Base Excess -14 L -4 L VBG pH 7.43 VBG pCO2 34 L VBG pO2 37 VBG Base Excess -1 03/16/25 03/16/25 03/16/25 04:51 11:48 19:30 ABG pH 7.46 H 7.22 L D 7.38 D ABG pCO2 29 L 66 H D 48 D ABG pO2 78 L 79 L 236 H D ABG HCO3 21 27 H 29 H ABG O2 Saturation 96 91 100 H ABG Base Excess -2 -2 3 VBG pH VBG pCO2 VBG pO2 VBG Base Excess 03/17/25 03/18/25 03/19/25 04:53 09:27 04:46 ABG pH 7.38 7.35 ABG pCO2 49 H 48 ABG pO2 78 L D 92 ABG HCO3 29 H 26 ABG O2 Saturation 95 98 ABG Base Excess 3 0 VBG pH 7.34 VBG pCO2 54 D VBG pO2 34 VBG Base Excess 2 03/24/25 22:00 ABG pH 7.33 L ABG pCO2 48 ABG pO2 233 H ABG HCO3 25 ABG O2 Saturation 101 H ABG Base Excess -1 VBG pH VBG pCO2 VBG pO2 VBG Base Excess Quality Measures Quality Measures VTE prophylaxis Assessment & Plan Assessment Current Active Medications: Generic Name Dose Route Start Last Admin Trade Name Freq PRN Reason Stop Dose Admin Acetaminophen 650 mg 03/20/25 11:35 03/21/25 06:39 Acetaminophen 325 Mg Tablet PO 04/19/25 11:34 650 mg Q6HR PRN Administration pain and Fever >100.4 Protocol Amiodarone HCl 200 mg 03/19/25 21:00 03/26/25 12:20 Amiodarone Hcl 200 Mg Tablet GT 04/18/25 20:59 200 mg BID MONTSERRAT Administration Aspirin 81 mg 03/16/25 09:00 03/25/25 11:33 Aspirin 81 Mg Chew GT 04/15/25 08:59 Not Given QDAY MONTSERRAT Clopidogrel Bisulfate 75 mg 03/15/25 10:53 03/25/25 11:34 Clopidogrel Bisulfate 75 Mg Tablet GT 04/14/25 10:29 Not Given QDAY MONTSERRAT Dextrose 25 ml 03/14/25 20:38 03/20/25 23:30 Dextrose 50%-Water Inj 50 Ml Syringe IV 04/13/25 20:37 25 ml Q15MIN PRN Administration BG 50-70 responsive npo pt Dextrose 50 ml 03/14/25 20:38 Dextrose 50%-Water Inj 50 Ml Syringe IV 04/13/25 20:37 Q15MIN PRN BG <50 OR BG <70 & pt unresponsive Glucagon 1 mg 03/14/25 17:36 Glucagon Inj 1 Mg Vial IM Q15MIN PRN BG <70, and no IV access Heparin Sodium (Porcine) 3,000 unit 03/19/25 13:33 03/25/25 11:37 Heparin Sod Inj 1000 Unit/Ml Vial 10 Ml INDWELLCAT 04/02/25 13:32 3,000 unit PRN PRN Administration DIALYSIS Heparin Sodium (Porcine) 5,000 unit 03/23/25 21:00 03/26/25 10:48 Heparin Sod Inj 5000 Unit/Ml Vial SC 04/06/25 20:59 Not Given Q12HR MONTSERRAT Hydromorphone HCl 0.5 mg 03/23/25 14:00 03/26/25 14:06 Hydromorphone Inj 2 Mg/Ml Vial IVP 03/28/25 13:59 0.5 mg Q4HR MONTSERRAT Administration Albumin Human 25 gm in 100 mls @ 100 mls/min 03/25/25 08:41 03/25/25 09:54 Albuminar-25 Ivpb IV Infused PRN PRN Infusion DIALYSIS Insulin Human Lispro 0 unit 03/22/25 11:30 03/26/25 12:08 Insulin Lispro (Admelog) 1 Unit/0.01 Ml Unit SC 04/21/25 11:29 Not Given ACHS MONTSERRAT Protocol Levalbuterol HCl 0.31 mg 03/20/25 12:15 03/26/25 12:27 Levalbuterol Rt 0.31 Mg/3 Ml Nebu INH 04/19/25 12:14 0.31 mg Q6HRRT MONTSERRAT Administration Metoprolol Succinate 25 mg 03/22/25 09:00 03/26/25 12:20 Metoprolol Succinate Xl 25 Mg Tabcr PO 04/21/25 08:59 25 mg BID MONTSERRAT Administration Midodrine 10 mg 03/19/25 18:19 Midodrine 5 Mg Tablet GT 04/18/25 21:59 TID PRN MAP below 65 Ondansetron HCl 4 mg 03/14/25 17:31 Ondansetron Inj 2 Mg/Ml Inj 2 Ml IV 04/13/25 17:30 Q6H PRN NAUSEA OR VOMITING Protocol Oxycodone/Acetaminophen 1 tab 03/24/25 12:00 03/26/25 12:13 Oxycodone/Apap 5/325 Tablet PO 03/29/25 11:59 1 tab Q6HR PRN Administration BREAKTHROUGH PAIN 4-10 Pantoprazole Sodium 40 mg 03/14/25 21:00 03/26/25 12:12 Pantoprazole Inj 40 Mg Vial IVP 04/13/25 20:59 40 mg BID MONTSERRAT Administration Pharmacy Consult 1 each 03/24/25 17:00 03/26/25 10:50 Vancomycin Pharmacy To Dose 1 Each Each IV 04/23/25 16:59 Not Given QDAY MONTSERRAT Sodium Chloride 3 ml 03/17/25 19:00 03/26/25 09:46 Sodium Cl Rt Marjorie 3% 4 Ml Nebu (Non-Formulary) INH 04/16/25 18:59 Not Given Q6HRRT MONTSERRAT Plan Assessment and Plan: Summary: Mr. Mcclain is a 49 years old male with PMH of DM2, hypertension, ESRD (HD ), HFpEF (EF 55% on 2021), and right BKA due to osteomyelitis BIBA to the ED due to AMS, was intubated and started on pressors and was admitted to the ICU on 03/14/2025 for management of shock of unknown etiology and was started on IV antibiotics. On 03/17 his sputum culture grew stenotrophomonas maltophilia and antibiotics were changed to levofloxacin. He was extubated and downgraded to telemetry on 03/20/2025 for continuation of care. # End-stage renal disease (HD on ). Patient received CRRT in intensive care unit, was transition to hemodialysis. Patient will need a line holiday and placement of due to underlying bacteremia. Primary team to hold aspirin and Plavix, catheter will be exchanged in a.m. possibly Patient successfully completed 3 hours 4 minutes of dialysis session on 03/25/2025, postdialysis weight 115.9 kg was hypotensive at times during the dialysis, tolerated dialysis well through the temporary dialysis catheter. Net fluid removed 0.5 L. Blood pressure was soft, received 2 bags of albumin during the dialysis session. Patient received permanent tunneled dialysis catheter placement on 03/26/2025. Plan: - Continue with hemodialysis inpatient - Avoid nephrotoxic agents. - Renally dose medications. #Staph Hemolyticus bacteremia #CLABSI Patient tested for gram-positive cocci (staph hymolyticus ) 2/2 blood blood cultures on 03/21/2025 Patient currently has temporary dialysis catheter, aspirin and Plavix will be held Will be scheduled for permanent tunneled dialysis catheter placement in a.m. #Acute blood loss Anemia #Hematemesis. #Macrocytic anemia. #Thrombocytopenia. Hemoglobin 7.9, RBC 2.48, hematocrit 25%, MCV 101, platelets 131 today - Management as per primary team #HFrEF (EF 50-55% on 2024) #A-fib with RVR, rate controlled #Troponinemia - resolved Patient had improved ejection fraction compared to the echocardiogram from a week ago, cardiology is consulted. Patient is on amiodarone for atrial fibrillation. - Management as per primary team #Possible acute vs chronic limb ischemia. #Peripheral Vascular disease, severe Patient has severe vascular disease, case was discussed by ICU team with a vascular surgeon at [facility] Patient is poor candidate for surgery per documentation -Patient was referred to hospice by primary team #Acute hypoxic respiratory failure, improved. #Stenotrophomonas maltophilia pneumonia. #Respiratory acidosis, resolved. #Septic shock, resolved. - Management as per primary team #Transaminitis. #Hyperbilirubinemia #Hepatomegaly. #Hx of DM2. #Hypoglycemia, resolved. -Management per primary team Case discussed with Attending Dr. Wilson. Marycarmen Clark PGY1 Disclaimer: This note was dictated by speech recognition. Minor errors in data power consultant may be present due to voice recognition software. Attending Provider Attestation/Addendum Labs are reviewed. seen and examined.agree with assessmsnt and plan and findings by resident. Héctor wilson MD
[2025-03-26] MEDS: POLYETHYLENE GLYCOL 17 GM PACKET PO (18:06)
[2025-03-26] MEDS: SENNA TABLET 1 TAB PO (18:06)
[2025-03-26] MEDS: HEPARIN SOD INJ 5000 UNIT/ML VIAL SC (20:52)
[2025-03-27] VITALS (25 sets, daily range): BP systolic 104–144; BP diastolic 62–92; PULSE 80–92; RESP 15–21; TEMP 36.1–37; O2SAT 91–100; BMI 34.7
[2025-03-27] MEDS: SODIUM CL RT SOL 3% 4 ML NEBU (NON-FORMULARY) 3 ML INH ×3 (01:14→19:08)
[2025-03-27] MEDS: LEVALBUTEROL RT 0.31 MG/3 ML NEBU INH ×4 (01:14→19:08)
[2025-03-27] MEDS: HYDROmorphone INJ 2 MG/ML VIAL 0.5 MG IVP ×2 (02:02→06:10)
[2025-03-27 06:27] LABS: Alanine Aminotransferase 99 U/L (10-49); Albumin, Serum 3.2 gm/dL (3.5-5.0); Anion Gap 12 (7-16); Aspartate Amino Transferase 19 U/L (0-34); BUN/Creatinine Ratio 10 Ratio (12-20); Bilirubin,Total 0.7 mg/dL (0.3-1.2); Blood Urea Nitrogen 67 mg/dL (9-23); Calcium 7.6 mg/dL (8.3-10.6); Carbon Dioxide 26.2 mMol/L (20.0-31.0); Chloride 99 mMol/L (98-107); Creatinine (Component) 6.4 mg/dL (0.6-1.3); Glucose 90 mg/dL (74-106); Osmolality,Calculated 293 (275-295); Potassium 5.2 mMol/L (3.4-5.1); Sodium 137 mMol/L (136-145); Total Protein 6.1 gm/dL (5.7-8.2); eGFR 10 See Note
[2025-03-27 06:28] LABS: Albumin/Globulin Ratio 1.1 (1.2-2.2); Alkaline Phosphatase 137 U/L (46-116); Calcium (Corrected) 8.2 mg/dL (8.5-10.1); Globulin 2.9 gm/dL (2.3-3.5); Vancomycin,Random 17.8 mcg/mL
[2025-03-27 06:34] LABS: Basophils % (Auto) 0 % (0-2.5); Eosinophils % (Auto) 1 % (0-10); Hematocrit 24.2 % (41.0-53.0); Immature Granulocytes % (Auto) 1 % (0-0); Immature Granulocytes Auto 0.07 Thou/mm3 (0.00-0.00); Lymphocytes # (Auto) 0.7 Thou/mm3 (1.0-4.8); Lymphocytes % (Auto) 10 % (10-50); Mean Corpuscular HGB Conc 31.8 g/dl (31.0-37.0); Mean Corpuscular Hemoglobin 31.7 pg (25.0-35.0); Mean Corpuscular Volume 100 fL (80-100); Monocytes # (Auto) 1.1 Thou/mm3 (0.0-0.8); Monocytes % (Auto) 16 % (0-12); Neutrophils # (Auto) 5.1 Thou/mm3 (1.8-7.7); Neutrophils % (Auto) 72 % (37-80); Nucleated Red Blood Cell # 0.02 Thou/mm3 (0.00-0.00); Nucleated Red Blood Cell % 0 /100 WBC (0); Platelet Count 143 Thou/mm3 (140-440); RDW Standard Deviation 61.1 fL (35.1-43.9); Red Blood Count 2.43 Miln/mm3 (4.50-5.90)
[2025-03-27 06:38] LABS: Hemoglobin 7.7 g/dL (13.5-16.0)
[2025-03-27] MEDS: oxyCODONE/APAP 5/325 TABLET 1 TAB PO (07:26)
[2025-03-27] MEDS: ALBUMIN HUMAN 25% IVPB 25 GM/100 ML BTL IV (09:31)
[2025-03-27] MEDS: ALTEPLASE RECOMB INJ 2 MG VIAL 4 MG INDWELLCAT (10:08)
[2025-03-27] MEDS: HYDROmorphone INJ 2 MG/ML VIAL 0.25 MG IVP ×2 (10:44→17:35)
[2025-03-27] MEDS: PANTOPRAZOLE INJ 40 MG VIAL IVP ×2 (10:53→21:09)
[2025-03-27] MEDS: HEPARIN SOD INJ 5000 UNIT/ML VIAL SC ×2 (10:53→21:08)
[2025-03-27] MEDS: POLYETHYLENE GLYCOL 17 GM PACKET PO (10:53)
[2025-03-27] MEDS: SENNA TABLET 1 TAB PO (10:53)
[2025-03-27] MEDS: METOPROLOL SUCCINATE XL 25 MG TABCR PO ×2 (10:54→21:09)
[2025-03-27] MEDS: NALOXEGOL OXALATE 25 MG TABLET (NON-FORMULARY) PO (10:54)
[2025-03-27] MEDS: AMIODARONE HCL 200 MG TABLET GT ×2 (10:54→21:10)
--- NOTE | 2025-03-27 11:17 | PD.RESPRO ---
Documentation for date of: 03/27/25 Subjective Subjective Interval history: Patient was examined bedside this morning, no acute overnight event. He just came from dialysis in the morning. complains of mild pain in hand , will plan angiogram of heart, hand and legs on Saturday . Exam Vital Signs Temp Pulse Resp BP Pulse Ox O2 Del Method O2 Flow Rate 98.6 F 92 18 137/92 H 91 L Nasal Cannula 2 03/27/25 10:01 03/27/25 10:54 03/27/25 10:01 03/27/25 10:54 03/27/25 10:01 03/27/25 04:00 03/27/25 10:01 FiO2 30 03/20/25 13:21 Narrative Exam General: Awake and despondent, but conversational. Chronically ill-appearing. HEENT: Normocephalic, atraumatic, mucous membranes moist. On 3L NC. Heart: Regular rate and rhythm, normal S1 and S2, no murmurs. Lungs: Clear to auscultation with no wheezing or crackles. Abdomen: Soft, nondistended, nontender, positive bowel sounds. ?No guarding or rebound tenderness. Neurologic: Alert and oriented x3, no gross neurological deficit, Extremities: Right upper extremity with blackened and shriveled finger tips. Right BKA with dark ischemic changes. Left lower and upper extremity spots of ischemic reddened to darkened skin. Skin: Scattered red to brown-black ischemic skin changes of the extremities. Objective Labs 03/27/25 05:43 03/27/25 05:43 Labs: Laboratory Results - last 24 hr 03/26/25 03/27/25 12:25 05:43 WBC 7.0 RBC 2.43 L Hgb 7.4 L 7.7 L Hct 23.9 L 24.2 L MCV 100 MCH 31.7 MCHC 31.8 RDW Std Deviation 61.1 H Plt Count 143 Neut % (Auto) 72 Lymph % (Auto) 10 [place] % (Auto) 16 H Eos % (Auto) 1 Baso % (Auto) 0 Neut # (Auto) 5.1 Lymph # (Auto) 0.7 L [place] # (Auto) 1.1 H Eos # (Auto) 0.0 Baso # (Auto) 0.0 Immature Gran # (Auto) 0.07 H Absolute Nucleated RBC 0.02 H Immature Gran % 1 H Nucleated RBC % 0 Sodium 137 Potassium 5.2 H Chloride 99 Carbon Dioxide 26.2 Anion Gap 12 BUN 67 H Creatinine 6.4 H* D Estim Creat Clear Calc 18.0 L eGFR 10 L* BUN/Creatinine Ratio 10 L Glucose 90 Calculated Osmolality 293 Calcium 7.6 L Corrected Calcium 8.2 L Total Bilirubin 0.7 AST 19 ALT 99 H Alkaline Phosphatase 137 H Total Protein 6.1 Albumin 3.2 L Globulin 2.9 Albumin/Globulin Ratio 1.1 L Random Vancomycin 17.8 ABG Interpretation ABG results: 03/14/25 03/14/25 03/14/25 14:44 16:44 18:53 ABG pH 7.03 L* 7.04 L* 7.10 L* ABG pCO2 43 50 H 46 ABG pO2 86 128 H D 57 L* D ABG HCO3 11 L 13 L 14 L ABG O2 Saturation 91 97 78 L ABG Base Excess -19 L -17 L -15 L VBG pH VBG pCO2 VBG pO2 VBG Base Excess 03/14/25 03/15/25 03/15/25 21:20 05:07 12:28 ABG pH 7.21 L D 7.41 D ABG pCO2 32 D 31 L ABG pO2 116 H D 74 L D ABG HCO3 13 L 20 ABG O2 Saturation 97 95 ABG Base Excess -14 L -4 L VBG pH 7.43 VBG pCO2 34 L VBG pO2 37 VBG Base Excess -1 03/16/25 03/16/25 03/16/25 04:51 11:48 19:30 ABG pH 7.46 H 7.22 L D 7.38 D ABG pCO2 29 L 66 H D 48 D ABG pO2 78 L 79 L 236 H D ABG HCO3 21 27 H 29 H ABG O2 Saturation 96 91 100 H ABG Base Excess -2 -2 3 VBG pH VBG pCO2 VBG pO2 VBG Base Excess 03/17/25 03/18/25 03/19/25 04:53 09:27 04:46 ABG pH 7.38 7.35 ABG pCO2 49 H 48 ABG pO2 78 L D 92 ABG HCO3 29 H 26 ABG O2 Saturation 95 98 ABG Base Excess 3 0 VBG pH 7.34 VBG pCO2 54 D VBG pO2 34 VBG Base Excess 2 03/24/25 22:00 ABG pH 7.33 L ABG pCO2 48 ABG pO2 233 H ABG HCO3 25 ABG O2 Saturation 101 H ABG Base Excess -1 VBG pH VBG pCO2 VBG pO2 VBG Base Excess Quality Measures Quality Measures VTE prophylaxis Assessment & Plan Assessment Current Active Medications: Generic Name Dose Route Start Last Admin Trade Name Freq PRN Reason Stop Dose Admin Acetaminophen 650 mg 03/20/25 11:35 03/21/25 06:39 Acetaminophen 325 Mg Tablet PO 04/19/25 11:34 650 mg Q6HR PRN Administration pain and Fever >100.4 Protocol Hydrocodone Bitart/Acetaminophen 1 tab 03/27/25 08:40 Hydrocodone/Apap 5/325 Tablet PO 04/01/25 08:39 Q6HR PRN PAIN SCALE 4-6 (Moderate Amiodarone HCl 200 mg 03/19/25 21:00 03/27/25 10:54 Amiodarone Hcl 200 Mg Tablet GT 04/18/25 20:59 200 mg BID MONTSERRAT Administration Aspirin 81 mg 03/16/25 09:00 03/25/25 11:33 Aspirin 81 Mg Chew GT 04/15/25 08:59 Not Given QDAY MONTSERRAT Clopidogrel Bisulfate 75 mg 03/15/25 10:53 03/25/25 11:34 Clopidogrel Bisulfate 75 Mg Tablet GT 04/14/25 10:29 Not Given QDAY MONTSERRAT Dextrose 25 ml 03/14/25 20:38 03/20/25 23:30 Dextrose 50%-Water Inj 50 Ml Syringe IV 04/13/25 20:37 25 ml Q15MIN PRN Administration BG 50-70 responsive npo pt Dextrose 50 ml 03/14/25 20:38 Dextrose 50%-Water Inj 50 Ml Syringe IV 04/13/25 20:37 Q15MIN PRN BG <50 OR BG <70 & pt unresponsive Glucagon 1 mg 03/14/25 17:36 Glucagon Inj 1 Mg Vial IM Q15MIN PRN BG <70, and no IV access Heparin Sodium (Porcine) 3,000 unit 03/19/25 13:33 03/25/25 11:37 Heparin Sod Inj 1000 Unit/Ml Vial 10 Ml INDWELLCAT 04/02/25 13:32 3,000 unit PRN PRN Administration DIALYSIS Heparin Sodium (Porcine) 5,000 unit 03/23/25 21:00 03/27/25 10:53 Heparin Sod Inj 5000 Unit/Ml Vial SC 04/06/25 20:59 5,000 unit Q12HR MONTSERRAT Administration Hydromorphone HCl 0.25 mg 03/27/25 10:08 03/27/25 10:44 Hydromorphone Inj 2 Mg/Ml Vial IVP 04/01/25 08:44 0.25 mg Q6H PRN Administration SEVERE PAIN 7-10 Albumin Human 25 gm in 100 mls @ 100 mls/min 03/25/25 08:41 03/27/25 09:31 Albuminar-25 Ivpb IV 100 mls/min PRN PRN Administration DIALYSIS Insulin Human Lispro 0 unit 03/22/25 11:30 03/27/25 11:13 Insulin Lispro (Admelog) 1 Unit/0.01 Ml Unit SC 04/21/25 11:29 Not Given ACHS MONTSERRAT Protocol Levalbuterol HCl 0.31 mg 03/20/25 12:15 03/27/25 06:36 Levalbuterol Rt 0.31 Mg/3 Ml Nebu INH 04/19/25 12:14 0.31 mg Q6HRRT MONTSERRAT Administration Metoprolol Succinate 25 mg 03/22/25 09:00 03/27/25 10:54 Metoprolol Succinate Xl 25 Mg Tabcr PO 04/21/25 08:59 25 mg BID MONTSERRAT Administration Midodrine 10 mg 03/19/25 18:19 Midodrine 5 Mg Tablet GT 04/18/25 21:59 TID PRN MAP below 65 Ondansetron HCl 4 mg 03/14/25 17:31 Ondansetron Inj 2 Mg/Ml Inj 2 Ml IV 04/13/25 17:30 Q6H PRN NAUSEA OR VOMITING Protocol Pantoprazole Sodium 40 mg 03/14/25 21:00 03/27/25 10:53 Pantoprazole Inj 40 Mg Vial IVP 04/13/25 20:59 40 mg BID MONTSERRAT Administration Pharmacy Consult 1 each 03/27/25 08:44 Vancomycin Pharmacy To Dose 1 Each Each IV 04/23/25 16:59 QDAY PRN CONSULT Polyethylene Glycol 17 gm 03/26/25 18:00 03/27/25 10:53 Polyethylene Glycol 17 Gm Packet PO 04/25/25 17:59 17 gm QDAY MONTSERRAT Administration Sennosides 1 tab 03/26/25 18:00 03/27/25 10:53 Senna Tablet PO 04/25/25 17:59 1 tab QDAY MONTSERRAT Administration Protocol Sodium Chloride 3 ml 03/17/25 19:00 03/27/25 06:36 Sodium Cl Rt Marjorie 3% 4 Ml Nebu (Non-Formulary) INH 04/16/25 18:59 3 ml Q6HRRT MONTSERRAT Administration Plan 49-year-old male with past medical history of DM2, hypertension, ESRD (HD ), HFpEF (EF 55% on 2021), and right BKA due to osteomyelitis was initially admitted to the ICU on 03/14/2025 for acute hypoxic respiratory failure, acute encephalopathy, and shock. He was subsequently extubated and downgraded to telemetry on 03/20/2025 for continuation of care. #Status post acute non-ST segment elevation myocardial infarction, NSTEMI possible type 2 troponin versus NSTEMI. #SVT episodes #Afib, rate controlled #Decompensated HFpEF (EF 45-50%) Patient s/p intubation and pressor support in ICU for shock, distributive secondary to sepsis versus cardiogenic. Patient initially presented to ED in SVT and required shock x1. Troponin initially 1.856 uptrended to 7.899 peak. Patient was treated for pneumonia. Patient was able to wean off pressors, extubated, now downgraded to tele. CT LER showed diffuse stenosis on the arteries of the LLE, occlusions in almost all major arteries. Echo done on 03/16/2025 showed LV appears normal with EF 45-50%. Septal dyskinesis is seen, RV appears normal with RVSP 50 mmHg. Mildly dilated LA & RA Mild mitral regurgitation Mild-Moderate TR. 03/21, patient had 2 rapid response events for SVT in the 170-200s which self converted in minutes. -Continue amiodarone 200 mg BID -Continue metoprolol succinate 25 mg BID -Maintain K >4.0 and Mag >2.0 -Continue dialysis per Nephro -03/26/2025:will plan angiogram for him of his coronary, leg and arm possibly on Saturday or Sat, once he is more stable .Left ventricular function is preserved. -03/27/2025: He just came from dialysis in the morning. complains of mild pain in hand , will plan angiogram of heart, hand and legs on Saturday . #Extensive atherosclerotic cardiovascular disease with bilateral femoral artery occlusions and distal trifurcation disease with gangrenous changes. -Patient has history of right extremity BKA due to severe PAD. This admission after severe shock requiring pressor support patient subsequently developed ischemia of the right and left fingertips. Vascular surgeon stated that the patient is not a candidate at this time for revascularization, however stated that would discuss case with general surgeon. Likely upper extremity digits affected by vasopressor support in combination with severe PAD causing limb ischemia. -Later down the line consider extremity angiogram to visualize upper and lower extremity artery flow and possible need for stent, however patient must have bacteremia treated first -Continue aspirin 81 mg qday -Continue clopidogrel 75 mg qday -Continue antibiotics for now #GPC bacteremia #Leukocytosis #Staph hemolyticus bacteremia Patient tested for gram-positive cocci 2/2 blood cultures on 03/21/2025, first positive blood cultures this admission. Patient has not been febrile, however has had persistent leukocytosis. Patient subsequently getting all lines removed after receiving dialysis. -Repeat echo on 03/23- Aortic valve leaflets with sclerosis calcification thickening of the cusp but no stenosis. No evidence of vegetation detected. Mitral valve annular show mild calcification mitral leaflets with thickening regurgitations.Left atrium appears to be mildly dilated.Left ventricle is normal with evidence of mild anteroseptal hypokinesis with well-preserved ejection fraction of 50 to 55%. Right heart structures normal. Mild tricuspid regurgitation with no evidence of pulmonary hypertension normal PA pressures. Tricuspid and pulmonic valves appear normal no vegetations. Compared to the study a week ago no change except some improvement in LV function. -Repeat blood cultures 24 hrs is negative. -Continue antibiotics - he got a new dialysis catheter -continue antibiotics #Hypotension- resolved S/p shock weaned off pressors, multifactorial likely distributive and some component cardiogenic. -Continue midodrine 10 mg TID Rest of conditions to continue current management per primary team: #Acute hypoxic respiratory failure #Community-acquired pneumonia, Stenotrophomonas maltophilia #ESRD (HD on ) #History of type 2 diabetes #Respiratory acidosis, resolved #HAGMA, resolved #Lactic acidosis, resolved #Hyperkalemia, resolved #Shock liver, resolved #Possible GI bleed #Macrocytic anemia #Thrombocytopenia #Hematemesis, resolved #Hypoglycemia, resolved Discussed the patient with my attending Dr Wilfredo Granados MD,PGY-[id number]
--- NOTE | 2025-03-27 11:32 | PD.RESPRO ---
Documentation for date of: 03/27/25 Subjective Subjective Interval history: Patient was seen and examined at bedside this morning. Overnight patient did become a little bit confused and his oxygen did drop into the mid 80s likely due to opiate medications. He was placed on BiPAP at that time and symptoms resolved. This morning patient was AO x 3 and it was explained to him that we will switch his pain regimen to [place] 5 every 6 as needed and Dilaudid 0.25 IV push every 6 as needed. Patient will also need to go to fdc facility at this time as previous plans were to discharge him on hospice, but at this time we do not have a clear diagnosis for patient to be eligible for hospice. Will have physical therapy will work with the patient to see if patient is okay to go to a fdc facility. He was tolerating hemodialysis via the tunneled cath placed yesterday. Will continue to hold patient's Plavix and aspirin for possible heart cath Saturday, hemoglobin has been stable today. Exam Vital Signs Temp Pulse Resp BP Pulse Ox O2 Del Method O2 Flow Rate 98.6 F 92 18 137/92 H 91 L Nasal Cannula 2 03/27/25 10:01 03/27/25 10:54 03/27/25 10:01 03/27/25 10:54 03/27/25 10:01 03/27/25 04:00 03/27/25 10:01 FiO2 30 03/20/25 13:21 Narrative Exam General: AO x 3, no acute distress Eyes: Pupils reactive to light, EOMI, vision intact Ears: No visible ear discharge Nose: No visible nasal discharge. Mouth/Throat: Moist mucous membranes, no redness, no lesions. Neck: Neck supple, no cervical lymphadenopathy. Lungs: Clear CHRISTIANO Cardio: Normal S1/S2, irregular, no murmurs, no JVD Abdomen: Soft, non-tender, no palpable masses, peristalsis present, no guarding or rebound Extremities: Right BKA with cyanotic changes at the stump still present and is tender, left foot demarcated purplish discoloration now darker with some bullae and there is necrotic changes in toes, right upper extremity 2nd and 3rd digits show necrotic changes at the tips. Skin: Right 2nd and 3rd upper extremity digits show necrotic changes at the tips with some bullae at the rest of the digit, Left foot discoloration and necrotic changes in toes. Neuro: No focal neurological deficits, motor and sensory intact. Objective Labs 03/28/25 06:26 03/28/25 06:26 Labs: Laboratory Results - last 24 hr 03/26/25 03/27/25 12:25 05:43 WBC 7.0 RBC 2.43 L Hgb 7.4 L 7.7 L Hct 23.9 L 24.2 L MCV 100 MCH 31.7 MCHC 31.8 RDW Std Deviation 61.1 H Plt Count 143 Neut % (Auto) 72 Lymph % (Auto) 10 [place] % (Auto) 16 H Eos % (Auto) 1 Baso % (Auto) 0 Neut # (Auto) 5.1 Lymph # (Auto) 0.7 L [place] # (Auto) 1.1 H Eos # (Auto) 0.0 Baso # (Auto) 0.0 Immature Gran # (Auto) 0.07 H Absolute Nucleated RBC 0.02 H Immature Gran % 1 H Nucleated RBC % 0 Sodium 137 Potassium 5.2 H Chloride 99 Carbon Dioxide 26.2 Anion Gap 12 BUN 67 H Creatinine 6.4 H* D Estim Creat Clear Calc 18.0 L eGFR 10 L* BUN/Creatinine Ratio 10 L Glucose 90 Calculated Osmolality 293 Calcium 7.6 L Corrected Calcium 8.2 L Total Bilirubin 0.7 AST 19 ALT 99 H Alkaline Phosphatase 137 H Total Protein 6.1 Albumin 3.2 L Globulin 2.9 Albumin/Globulin Ratio 1.1 L Random Vancomycin 17.8 ABG Interpretation ABG results: 03/14/25 03/14/25 03/14/25 14:44 16:44 18:53 ABG pH 7.03 L* 7.04 L* 7.10 L* ABG pCO2 43 50 H 46 ABG pO2 86 128 H D 57 L* D ABG HCO3 11 L 13 L 14 L ABG O2 Saturation 91 97 78 L ABG Base Excess -19 L -17 L -15 L VBG pH VBG pCO2 VBG pO2 VBG Base Excess 03/14/25 03/15/25 03/15/25 21:20 05:07 12:28 ABG pH 7.21 L D 7.41 D ABG pCO2 32 D 31 L ABG pO2 116 H D 74 L D ABG HCO3 13 L 20 ABG O2 Saturation 97 95 ABG Base Excess -14 L -4 L VBG pH 7.43 VBG pCO2 34 L VBG pO2 37 VBG Base Excess -1 03/16/25 03/16/25 03/16/25 04:51 11:48 19:30 ABG pH 7.46 H 7.22 L D 7.38 D ABG pCO2 29 L 66 H D 48 D ABG pO2 78 L 79 L 236 H D ABG HCO3 21 27 H 29 H ABG O2 Saturation 96 91 100 H ABG Base Excess -2 -2 3 VBG pH VBG pCO2 VBG pO2 VBG Base Excess 03/17/25 03/18/25 03/19/25 04:53 09:27 04:46 ABG pH 7.38 7.35 ABG pCO2 49 H 48 ABG pO2 78 L D 92 ABG HCO3 29 H 26 ABG O2 Saturation 95 98 ABG Base Excess 3 0 VBG pH 7.34 VBG pCO2 54 D VBG pO2 34 VBG Base Excess 2 03/24/25 22:00 ABG pH 7.33 L ABG pCO2 48 ABG pO2 233 H ABG HCO3 25 ABG O2 Saturation 101 H ABG Base Excess -1 VBG pH VBG pCO2 VBG pO2 VBG Base Excess Quality Measures Quality Measures VTE prophylaxis Assessment & Plan Assessment Current Active Medications: Generic Name Dose Route Start Last Admin Trade Name Freq PRN Reason Stop Dose Admin Acetaminophen 650 mg 03/20/25 11:35 03/21/25 06:39 Acetaminophen 325 Mg Tablet PO 04/19/25 11:34 650 mg Q6HR PRN Administration pain and Fever >100.4 Protocol Hydrocodone Bitart/Acetaminophen 1 tab 03/27/25 08:40 Hydrocodone/Apap 5/325 Tablet PO 04/01/25 08:39 Q6HR PRN PAIN SCALE 4-6 (Moderate Amiodarone HCl 200 mg 03/19/25 21:00 03/27/25 10:54 Amiodarone Hcl 200 Mg Tablet GT 04/18/25 20:59 200 mg BID MONTSERRAT Administration Aspirin 81 mg 03/16/25 09:00 03/25/25 11:33 Aspirin 81 Mg Chew GT 04/15/25 08:59 Not Given QDAY MONTSERRAT Clopidogrel Bisulfate 75 mg 03/15/25 10:53 03/25/25 11:34 Clopidogrel Bisulfate 75 Mg Tablet GT 04/14/25 10:29 Not Given QDAY MONTSERRAT Dextrose 25 ml 03/14/25 20:38 03/20/25 23:30 Dextrose 50%-Water Inj 50 Ml Syringe IV 04/13/25 20:37 25 ml Q15MIN PRN Administration BG 50-70 responsive npo pt Dextrose 50 ml 03/14/25 20:38 Dextrose 50%-Water Inj 50 Ml Syringe IV 04/13/25 20:37 Q15MIN PRN BG <50 OR BG <70 & pt unresponsive Glucagon 1 mg 03/14/25 17:36 Glucagon Inj 1 Mg Vial IM Q15MIN PRN BG <70, and no IV access Heparin Sodium (Porcine) 3,000 unit 03/19/25 13:33 03/25/25 11:37 Heparin Sod Inj 1000 Unit/Ml Vial 10 Ml INDWELLCAT 04/02/25 13:32 3,000 unit PRN PRN Administration DIALYSIS Heparin Sodium (Porcine) 5,000 unit 03/23/25 21:00 03/27/25 10:53 Heparin Sod Inj 5000 Unit/Ml Vial SC 04/06/25 20:59 5,000 unit Q12HR MONTSERRAT Administration Hydromorphone HCl 0.25 mg 03/27/25 10:08 03/27/25 10:44 Hydromorphone Inj 2 Mg/Ml Vial IVP 04/01/25 08:44 0.25 mg Q6H PRN Administration SEVERE PAIN 7-10 Albumin Human 25 gm in 100 mls @ 100 mls/min 03/25/25 08:41 03/27/25 09:31 Albuminar-25 Ivpb IV 100 mls/min PRN PRN Administration DIALYSIS Insulin Human Lispro 0 unit 03/22/25 11:30 03/27/25 11:13 Insulin Lispro (Admelog) 1 Unit/0.01 Ml Unit SC 04/21/25 11:29 Not Given ACHS MONTSERRAT Protocol Levalbuterol HCl 0.31 mg 03/20/25 12:15 03/27/25 06:36 Levalbuterol Rt 0.31 Mg/3 Ml Nebu INH 04/19/25 12:14 0.31 mg Q6HRRT MONTSERRAT Administration Metoprolol Succinate 25 mg 03/22/25 09:00 03/27/25 10:54 Metoprolol Succinate Xl 25 Mg Tabcr PO 04/21/25 08:59 25 mg BID MONTSERRAT Administration Midodrine 10 mg 03/19/25 18:19 Midodrine 5 Mg Tablet GT 04/18/25 21:59 TID PRN MAP below 65 Ondansetron HCl 4 mg 03/14/25 17:31 Ondansetron Inj 2 Mg/Ml Inj 2 Ml IV 04/13/25 17:30 Q6H PRN NAUSEA OR VOMITING Protocol Pantoprazole Sodium 40 mg 03/14/25 21:00 03/27/25 10:53 Pantoprazole Inj 40 Mg Vial IVP 04/13/25 20:59 40 mg BID MONTSERRAT Administration Pharmacy Consult 1 each 03/27/25 08:44 Vancomycin Pharmacy To Dose 1 Each Each IV 04/23/25 16:59 QDAY PRN CONSULT Polyethylene Glycol 17 gm 03/26/25 18:00 03/27/25 10:53 Polyethylene Glycol 17 Gm Packet PO 04/25/25 17:59 17 gm QDAY MONTSERRAT Administration Sennosides 1 tab 03/26/25 18:00 03/27/25 10:53 Senna Tablet PO 04/25/25 17:59 1 tab QDAY MONTSERRAT Administration Protocol Sodium Chloride 3 ml 03/17/25 19:00 03/27/25 06:36 Sodium Cl Rt Marjorie 3% 4 Ml Nebu (Non-Formulary) INH 04/16/25 18:59 3 ml Q6HRRT MONTSERRAT Administration Plan 49-year-old male with past medical history of DM2, hypertension, ESRD (HD ), HFpEF (EF 55% on 2021), and right BKA due to osteomyelitis was admitted to the ICU on 03/14/2025 for acute hypoxic respiratory failure, acute encephalopathy, and shock. He was extubated and downgraded to telemetry on 03/20/2025. #Staph Hemolyticus bacteremia #CLABSI Patient grew Staphylococcus hemolyticus from blood cultures on 03/21/2025 Repeat blood cultures on 03/14/2025 have been negative for the past 48 hours Repeat echo did not show any vegetations Central line and dialysis catheter removed 03/25/2025 New tunneled catheter placed 03/26/2025 Plan: Continue Vancoymycin 03/23- 04/05 Consulted infectious disease, appreciate recommendations #A-fib with RVR, rate controlled #MAT #SVT Patient again went into SVT last night and was shocked again, but on repeat EKG showed to be in A-fib RVR. Patient again went into SVT and received adenosine 6mg x1 and adenosine 12mg x1 before being cardioverted. Repeat EKG showed what appears to be MAT. [id number] score of 3 points indicating 3.2% risk of stroke per year HAS-BLED score of 5 points Plan: Continue amiodarone 200mg BID Metoprolol succinate 25mg daily Keep Potassium >4 and Mg >2 Show Horse Driver consulted, appreciate recommendations #Possible acute vs chronic limb ischemia. #Peripheral Vascular disease, severe Abdomen CTA with runoff that showed occlusion of multiple arteries including the left radial, gluteal, and tibial arteries as well as 90% stenosis of the left superficial femoral artery Also showed 80% stenosis of right superficial femoral artery. Overnight ICU team spoke with vascular surgeon at [facility] who stated that at this time patient was not a candidate for transfer for revascularization. Patient understands that he may lose multiple digits and even his left lower foot. Most likely needs to follow-up with vascular surgeon as an outpatient. Plan: Nitroglycerin topical ointment. Will continue with aspirin and Plavix for now Switched pain regimen to [place] q6h prn and Dilaudid 0.25mg q6h prn Pt will need outpatient follow up with vascular surgeon #Acute hypoxic respiratory failure, improved. #Stenotrophomonas maltophilia pneumonia. #Respiratory acidosis, resolved. #Septic shock, resolved. Intubated on 03/14/2025. Sputum grew stenotrophomonas maltophilia. Extubated on 03/20/2025. Zosyn 03/14/2025-03/17/2025 Vancomycin 03/14/2025 - 03/15/2025. Discontinued levaquin 500mg q48hr 03/17/2025- 03/21 Plan: Continue hypertonic saline inhaled solution and chest physiotherapy. Patient will need to have a walk test prior to O2 delivery to home Midodrine 10mg TID as needed. #Troponinemia, resolved Troponins peaked at 7.899 and down trended to 7.04. Echo 03/16/2025 showed EF of 45 to 50% and septal dyskinesis. Echo on 03/23/2025 shows some improvement and left ventricle function with an EF of 50 to 55% Plan: Will continue holding aspirin and Plavix. Possible Heart cath Saturday Cardiology consulted, appreciate recommendations. #HFrEF (EF 50-55% on 2024). Echo on 03/16/2025 showed EF of 45 to 50% and septal dyskinesis. Echo on 03/23/2025 shows some improvement and left ventricle function with an EF of 50 to 55% Plan: Will continue with hemodialysis with fluid removal. Daily weights. Strict JENN's. fluid restriction. #ESRD (HD on ). #HAGMA, resolved. #Lactic acidosis, resolved. Patient was on hemodialysis and had AV fistula, but was clotted therefore cannot be used. Tunnedled dialysis cath placed 03/26/2025 Plan: Continue hemodialysis as scheduled. Trucker Hand Dr. Pleitez following, appreciate recommendations Avoid nephrotoxic agents. Renally dose medications. #Hematemesis. #Macrocytic anemia. #Thrombocytopenia. Patient's hemoglobin was downtrending from 11.9 on admission Hemoglobin 7.7 and platelets 143 No active signs of bleeding Plan: Continue to monitor daily CBC Transfuse if Hgb less than 7. #Transaminitis, improving #Hyperbilirubinemia, resolved #Hepatomegaly. Possible liver failure due to methamphetamine use? Could be due to shock liver versus hypoxia versus drug-induced. Hepatitis panel negative and abdominal ultrasound that shows some hepatomegaly with possible cirrhosis versus hepatocellular disease. Plan: Continue monitoring daily labs #Hx of DM2. ISS. Hypoglycemia protocol ordered. Hospital Maintenance: Diet: renal diet DVT ppx: Heparin 5000 SC Q12H GI ppx: Protonix IV. Code status: DNR. Case disclosed with Attending Dr. Amrit Lee PGY1 Attending Provider Attestation/Addendum I reviewed labs, imaging, EKG, home medications and prior available records. Face to face evaluation was performed by me. I have personally examined the patient and discussed assessment and plan with the IM team. I reviewed the resident note and agree with the plan with exceptions as below. Acute encephalopathy, resolved Acute hypoxic respiratory failure, status post intubation, s/p extubation ESRD on hemodialysis HFrEF EF 45 to 50% Atrial fibrillation with controlled ventricular rhythm PAD Gangrene of toes and fingers, in the setting of severe PAD in the vasopressors Non-STEMI Clotting of dialysis fistula Leukocytosis, improved H&H borderline. Follow-up repeat H&H: Stable His pain from PAD is severe requiring IV opiates Continue IV vancomycin till 04/05 Remove temporary dialysis line. Status post permacath on 03/26 Outpatient follow-up with vascular surgery for the clotted fistula Continue amiodarone. Outpatient follow-up with cardiology to discuss anticoagulation Discussed with cardiology: Will plan for cardiac catheterization on 03/29 Continue aspirin and Plavix Outpatient follow-up with vascular surgery Continue hemodialysis per nephrology recommendations PT recommended SNF. However he was declined. Plan to go home and his will take care of him
[2025-03-27] MEDS: HYDROcodone/APAP 5/325 TABLET 1 TAB PO ×2 (13:34→21:10)
--- NOTE | 2025-03-27 15:54 | PD.RESPRO ---
Documentation for date of: 03/27/25 Subjective Subjective Interval history: Mr. Mcclain is a 49-year-old male with past medical history of type 2 diabetes mellitus, hypertension, end-stage renal disease (HD ), HFpEF (EF 50 to 55% 02/2025) and right BKA due to osteomyelitis who was brought in by ambulance to [facility] emergency department on 03/14/2025 with a chief complaint of altered mental status. Patient was intubated secondary to inability to protect airway. On presentation patient's assisted with procuring history, per patient's patient had progressive shortness of breath and had change in mentation, patient was found to be in SVT when EMS arrived was shocked once and was converted to sinus rhythm. Patient also had to get additional sessions of hemodialysis due to increase in weight, last session of hemodialysis before admission to the hospital was on 12 March 2025. Patient also does have history of methamphetamine use, urine tox screen was positive for methamphetamine and marijuana on presentation. With the progression of hospital course patient was initially managed in the intensive care unit for acute hypoxic respiratory failure was found to have stenotrophomonas maltophilia pneumonia was treated with IV antibiotics, had significant lactic acidosis respiratory acidosis and high anion gap metabolic acidosis which improved in ICU patient did require CRRT and was eventually transition to hemodialysis, patient was eventually extubated on downgraded to telemetry on 03/20/2025. Patient's hospital stay is further complicated with possible acute versus chronic limb ischemia and underlying severe peripheral vascular disease, applications instructor discussed case with vascular surgeon at [facility] during the hospitalization, patient was a poor candidate for revascularization per documentation. Patient started on amiodarone for underlying atrial fibrillation and eventually infectious disease consulted for Staph haemolyticus bacteremia possible CLABSI. Patient continue to receive inpatient hemodialysis. 03/25/2025: Patient successfully completed 3 hours 4 minutes of dialysis session today, postdialysis weight 115.9 kg was hypotensive at times during the dialysis, tolerated dialysis well through the temporary dialysis catheter. Net fluid removed 0.5 L. Blood pressure was soft, received 2 bags of albumin during the dialysis session.Patient will need permanent dialysis catheter placement, will be scheduled with interventional radiology in a.m. after holding aspirin and Plavix. Patient will be made n.p.o. after midnight by primary team. 03/26/2025: Patient seen and examined at bedside, patient had permanent tunneled dialysis catheter placed today. Currently complains of some back pain. Patient will continue to receive IV antibiotics until 04/05/2025 with hemodialysis. Otherwise patient is stable, has no current complaints. Anticipate discharge in next 24 hours on supplemental oxygen. 03/27/2025:Patient received dialysis treatment today, completed about 2 hours of dialysis session, about 1.1 L fluid removed, postdialysis weight 115 kg, was administered 100 mL albumin during the dialysis session for low blood pressure, patient did receive alteplase through the indwelling catheter x 1. Primary team discussed the case with patient and patient's family, patient has been requiring an extensive amount of IV pain medication, further plan by primary team is to discharge patient to halfway facility and not on hospice as patient does not have underlying clear etiology for hospice. Patient's DAPT being held, cardiology following the case and patient may undergo angiogram heart, bilateral upper and lower extremities on Saturday. Exam Vital Signs Temp Pulse Resp BP Pulse Ox O2 Del Method O2 Flow Rate 97.4 F 90 18 137/92 H 95 Nasal Cannula 2 03/27/25 12:00 03/27/25 12:39 03/27/25 12:39 03/27/25 12:00 03/27/25 12:39 03/27/25 12:00 03/27/25 12:39 FiO2 30 03/20/25 13:21 Narrative Exam General: AO x 3, no acute distress Eyes: Pupils reactive to light, EOMI, vision intact Ears: No visible ear discharge Nose: No visible nasal discharge. Mouth/Throat: Moist mucous membranes, no redness, no lesions. Neck: Neck supple, no cervical lymphadenopathy. Right IJ permanent dialysis catheter noted Lungs: Clear CHRISTIANO Cardio: Normal S1/S2, irregular, no murmurs, no JVD Abdomen: Soft, non-tender, no palpable masses, peristalsis present, no guarding or rebound Extremities: Right BKA with cyanotic changes at the stump still present and is tender, left foot demarcated purplish discoloration now darker with some bullae and there is necrotic changes in toes, right upper extremity 2nd and 3rd digits show necrotic changes at the tips. Skin: Right 2nd and 3rd upper extremity digits show necrotic changes at the tips with some bullae at the rest of the digit, Left foot discoloration and necrotic changes in toes. Neuro: No focal neurological deficits, motor and sensory intact. Objective Labs 03/29/25 05:28 03/29/25 05:28 Labs: Laboratory Results - last 24 hr 03/27/25 05:43 WBC 7.0 RBC 2.43 L Hgb 7.7 L Hct 24.2 L MCV 100 MCH 31.7 MCHC 31.8 RDW Std Deviation 61.1 H Plt Count 143 Neut % (Auto) 72 Lymph % (Auto) 10 Winn % (Auto) 16 H Eos % (Auto) 1 Baso % (Auto) 0 Neut # (Auto) 5.1 Lymph # (Auto) 0.7 L Winn # (Auto) 1.1 H Eos # (Auto) 0.0 Baso # (Auto) 0.0 Immature Gran # (Auto) 0.07 H Absolute Nucleated RBC 0.02 H Immature Gran % 1 H Nucleated RBC % 0 Sodium 137 Potassium 5.2 H Chloride 99 Carbon Dioxide 26.2 Anion Gap 12 BUN 67 H Creatinine 6.4 H* D Estim Creat Clear Calc 18.0 L eGFR 10 L* BUN/Creatinine Ratio 10 L Glucose 90 Calculated Osmolality 293 Calcium 7.6 L Corrected Calcium 8.2 L Total Bilirubin 0.7 AST 19 ALT 99 H Alkaline Phosphatase 137 H Total Protein 6.1 Albumin 3.2 L Globulin 2.9 Albumin/Globulin Ratio 1.1 L Random Vancomycin 17.8 ABG Interpretation ABG results: 03/14/25 03/14/25 03/14/25 14:44 16:44 18:53 ABG pH 7.03 L* 7.04 L* 7.10 L* ABG pCO2 43 50 H 46 ABG pO2 86 128 H D 57 L* D ABG HCO3 11 L 13 L 14 L ABG O2 Saturation 91 97 78 L ABG Base Excess -19 L -17 L -15 L VBG pH VBG pCO2 VBG pO2 VBG Base Excess 03/14/25 03/15/25 03/15/25 21:20 05:07 12:28 ABG pH 7.21 L D 7.41 D ABG pCO2 32 D 31 L ABG pO2 116 H D 74 L D ABG HCO3 13 L 20 ABG O2 Saturation 97 95 ABG Base Excess -14 L -4 L VBG pH 7.43 VBG pCO2 34 L VBG pO2 37 VBG Base Excess -1 03/16/25 03/16/25 03/16/25 04:51 11:48 19:30 ABG pH 7.46 H 7.22 L D 7.38 D ABG pCO2 29 L 66 H D 48 D ABG pO2 78 L 79 L 236 H D ABG HCO3 21 27 H 29 H ABG O2 Saturation 96 91 100 H ABG Base Excess -2 -2 3 VBG pH VBG pCO2 VBG pO2 VBG Base Excess 03/17/25 03/18/25 03/19/25 04:53 09:27 04:46 ABG pH 7.38 7.35 ABG pCO2 49 H 48 ABG pO2 78 L D 92 ABG HCO3 29 H 26 ABG O2 Saturation 95 98 ABG Base Excess 3 0 VBG pH 7.34 VBG pCO2 54 D VBG pO2 34 VBG Base Excess 2 03/24/25 22:00 ABG pH 7.33 L ABG pCO2 48 ABG pO2 233 H ABG HCO3 25 ABG O2 Saturation 101 H ABG Base Excess -1 VBG pH VBG pCO2 VBG pO2 VBG Base Excess Quality Measures Quality Measures VTE prophylaxis Assessment & Plan Assessment Current Active Medications: Generic Name Dose Route Start Last Admin Trade Name Freq PRN Reason Stop Dose Admin Acetaminophen 650 mg 03/20/25 11:35 03/21/25 06:39 Acetaminophen 325 Mg Tablet PO 04/19/25 11:34 650 mg Q6HR PRN Administration pain and Fever >100.4 Protocol Hydrocodone Bitart/Acetaminophen 1 tab 03/27/25 08:40 03/27/25 13:34 Hydrocodone/Apap 5/325 Tablet PO 04/01/25 08:39 1 tab Q6HR PRN Administration PAIN SCALE 4-6 (Moderate Amiodarone HCl 200 mg 03/19/25 21:00 03/27/25 10:54 Amiodarone Hcl 200 Mg Tablet GT 04/18/25 20:59 200 mg BID MONTSERRAT Administration Aspirin 81 mg 03/16/25 09:00 03/25/25 11:33 Aspirin 81 Mg Chew GT 04/15/25 08:59 Not Given QDAY MONTSERRAT Clopidogrel Bisulfate 75 mg 03/15/25 10:53 03/25/25 11:34 Clopidogrel Bisulfate 75 Mg Tablet GT 04/14/25 10:29 Not Given QDAY MONTSERRAT Dextrose 25 ml 03/14/25 20:38 03/20/25 23:30 Dextrose 50%-Water Inj 50 Ml Syringe IV 04/13/25 20:37 25 ml Q15MIN PRN Administration BG 50-70 responsive npo pt Dextrose 50 ml 03/14/25 20:38 Dextrose 50%-Water Inj 50 Ml Syringe IV 04/13/25 20:37 Q15MIN PRN BG <50 OR BG <70 & pt unresponsive Gabapentin 100 mg 03/27/25 15:45 Gabapentin 100 Mg Capsule PO 04/26/25 15:44 TID MONTSERRAT Glucagon 1 mg 03/14/25 17:36 Glucagon Inj 1 Mg Vial IM Q15MIN PRN BG <70, and no IV access Heparin Sodium (Porcine) 3,000 unit 03/19/25 13:33 03/25/25 11:37 Heparin Sod Inj 1000 Unit/Ml Vial 10 Ml INDWELLCAT 04/02/25 13:32 3,000 unit PRN PRN Administration DIALYSIS Heparin Sodium (Porcine) 5,000 unit 03/23/25 21:00 03/27/25 10:53 Heparin Sod Inj 5000 Unit/Ml Vial SC 04/06/25 20:59 5,000 unit Q12HR MONTSERRAT Administration Hydromorphone HCl 0.25 mg 03/27/25 10:08 03/27/25 10:44 Hydromorphone Inj 2 Mg/Ml Vial IVP 04/01/25 08:44 0.25 mg Q6H PRN Administration SEVERE PAIN 7-10 Albumin Human 25 gm in 100 mls @ 100 mls/min 03/25/25 08:41 03/27/25 09:31 Albuminar-25 Ivpb IV 100 mls/min PRN PRN Administration DIALYSIS Insulin Human Lispro 0 unit 03/22/25 11:30 03/27/25 11:13 Insulin Lispro (Admelog) 1 Unit/0.01 Ml Unit SC 04/21/25 11:29 Not Given ACHS [facility] Protocol Levalbuterol HCl 0.31 mg 03/20/25 12:15 03/27/25 12:35 Levalbuterol Rt 0.31 Mg/3 Ml Nebu INH 04/19/25 12:14 0.31 mg Q6HRRT MONTSERRAT Administration Metoprolol Succinate 25 mg 03/22/25 09:00 03/27/25 10:54 Metoprolol Succinate Xl 25 Mg Tabcr PO 04/21/25 08:59 25 mg BID MONTSERRAT Administration Midodrine 10 mg 03/19/25 18:19 Midodrine 5 Mg Tablet GT 04/18/25 21:59 TID PRN MAP below 65 Ondansetron HCl 4 mg 03/14/25 17:31 Ondansetron Inj 2 Mg/Ml Inj 2 Ml IV 04/13/25 17:30 Q6H PRN NAUSEA OR VOMITING Protocol Pantoprazole Sodium 40 mg 03/14/25 21:00 03/27/25 10:53 Pantoprazole Inj 40 Mg Vial IVP 04/13/25 20:59 40 mg BID MONTSERRAT Administration Pharmacy Consult 1 each 03/27/25 08:44 Vancomycin Pharmacy To Dose 1 Each Each IV 04/23/25 16:59 QDAY PRN CONSULT Polyethylene Glycol 17 gm 03/26/25 18:00 03/27/25 10:53 Polyethylene Glycol 17 Gm Packet PO 04/25/25 17:59 17 gm QDAY MONTSERRAT Administration Sennosides 1 tab 03/26/25 18:00 03/27/25 10:53 Senna Tablet PO 04/25/25 17:59 1 tab QDAY MONTSERRAT Administration Protocol Sodium Chloride 3 ml 03/17/25 19:00 03/27/25 06:36 Sodium Cl Rt Marjorie 3% 4 Ml Nebu (Non-Formulary) INH 04/16/25 18:59 3 ml Q6HRRT MONTSERRAT Administration Plan Assessment and Plan: Summary: Mr. Mcclain is a 49 years old male with PMH of DM2, hypertension, ESRD (HD ), HFpEF (EF 55% on 2021), and right BKA due to osteomyelitis BIBA to the ED due to AMS, was intubated and started on pressors and was admitted to the ICU on 03/14/2025 for management of shock of unknown etiology and was started on IV antibiotics. On 03/17 his sputum culture grew stenotrophomonas maltophilia and antibiotics were changed to levofloxacin. He was extubated and downgraded to telemetry on 03/20/2025 for continuation of care. # End-stage renal disease (HD on ). Patient received CRRT in intensive care unit, was transition to hemodialysis. Patient will need a line holiday and placement of due to underlying bacteremia. Primary team to hold aspirin and Plavix, catheter will be exchanged in a.m. possibly Patient received permanent tunneled dialysis catheter placement on 03/26/2025. 03/27/2025: Patient received dialysis treatment today, completed about 2 hours of dialysis session, about 1.1 L fluid removed, postdialysis weight 115 kg, was administered 100 mL albumin during the dialysis session for low blood pressure, patient did receive alteplase through the indwelling catheter x 1. Primary team discussed the case with patient and patient's family, patient has been requiring an extensive amount of IV pain medication, further plan by primary team is to discharge patient to halfway facility and not on hospice as patient does not have underlying clear etiology for hospice. Patient's DAPT being held, cardiology following the case and patient may undergo angiogram heart, bilateral upper and lower extremities on Saturday. Plan: - Continue with hemodialysis inpatient - Avoid nephrotoxic agents. - Renally dose medications. #Staph Hemolyticus bacteremia #CLABSI Patient tested for gram-positive cocci (staph hymolyticus ) 2/2 blood blood cultures on 03/21/2025 Patient currently has temporary dialysis catheter, aspirin and Plavix will be held Will be scheduled for permanent tunneled dialysis catheter placement in a.m. #Acute blood loss Anemia #Hematemesis. #Macrocytic anemia. #Thrombocytopenia. Hemoglobin 7.9, RBC 2.48, hematocrit 25%, MCV 101, platelets 131 today - Management as per primary team #HFrEF (EF 50-55% on 2024) #A-fib with RVR, rate controlled #Troponinemia - resolved Patient had improved ejection fraction compared to the echocardiogram from a week ago, cardiology is consulted. Patient is on amiodarone for atrial fibrillation. - Management as per primary team #Possible acute vs chronic limb ischemia. #Peripheral Vascular disease, severe Patient has severe vascular disease, case was discussed by ICU team with a vascular surgeon at [facility] Patient is poor candidate for surgery per documentation -Patient was referred to hospice by primary team #Acute hypoxic respiratory failure, improved. #Stenotrophomonas maltophilia pneumonia. #Respiratory acidosis, resolved. #Septic shock, resolved. - Management as per primary team #Transaminitis. #Hyperbilirubinemia #Hepatomegaly. #Hx of DM2. #Hypoglycemia, resolved. -Management per primary team Case discussed with Attending Dr. Wilson. Marycarmen Clark PGY1 Disclaimer: This note was dictated by speech recognition. Minor errors in salt washer harvesting station may be present due to voice recognition software. Attending Provider Attestation/Addendum Labs are reviewed. seen and examined.agree with assessmsnt and plan and findings by resident. Héctor wilson MD
[2025-03-27] MEDS: GABAPENTIN 100 MG CAPSULE PO ×2 (16:00→21:09)
--- NOTE | 2025-03-27 16:26 | PC.SS ---
Hospitalist team requested SNF placement. However, patient has been rejected due local SNFs due to being unable to meet his needs and lack of bed availability. Patient has been accepted by [facility] for Hospice services only.
[2025-03-28] VITALS (23 sets, daily range): BP systolic 92–149; BP diastolic 64–85; PULSE 66–99; RESP 14–24; TEMP 36.1–36.9; O2SAT 92–99; BMI 34.1
[2025-03-28] MEDS: SODIUM CL RT SOL 3% 4 ML NEBU (NON-FORMULARY) 3 ML INH (00:49)
[2025-03-28] MEDS: LEVALBUTEROL RT 0.31 MG/3 ML NEBU INH ×2 (00:49→06:29)
[2025-03-28] MEDS: GABAPENTIN 100 MG CAPSULE PO (05:34)
[2025-03-28] MEDS: HYDROmorphone INJ 2 MG/ML VIAL 0.25 MG IVP ×3 (05:40→21:03)
[2025-03-28 07:12] LABS: Basophils % (Auto) 0 % (0-2.5); Eosinophils # (Auto) 0.1 Thou/mm3 (0.0-0.5); Eosinophils % (Auto) 1 % (0-10); Hematocrit 23.1 % (41.0-53.0); Immature Granulocytes % (Auto) 1 % (0-0); Immature Granulocytes Auto 0.04 Thou/mm3 (0.00-0.00); Lymphocytes % (Auto) 14 % (10-50); Mean Corpuscular HGB Conc 31.2 g/dl (31.0-37.0); Mean Corpuscular Hemoglobin 31.3 pg (25.0-35.0); Mean Corpuscular Volume 100 fL (80-100); Monocytes % (Auto) 16 % (0-12); Neutrophils # (Auto) 4.5 Thou/mm3 (1.8-7.7); Neutrophils % (Auto) 68 % (37-80); Nucleated Red Blood Cell % 0 /100 WBC (0); Platelet Count 147 Thou/mm3 (140-440); White Blood Count 6.6 Thou/mm3 (3.8-10.6)
[2025-03-28 07:16] LABS: Alanine Aminotransferase 78 U/L (10-49); Albumin, Serum 3.2 gm/dL (3.5-5.0); Albumin/Globulin Ratio 1.1 (1.2-2.2); Alkaline Phosphatase 130 U/L (46-116); Anion Gap 14 (7-16); Aspartate Amino Transferase 18 U/L (0-34); BUN/Creatinine Ratio 11 Ratio (12-20); Bilirubin,Total 0.6 mg/dL (0.3-1.2); Blood Urea Nitrogen 66 mg/dL (9-23); Calcium 7.8 mg/dL (8.3-10.6); Calcium (Corrected) 8.4 mg/dL (8.5-10.1); Carbon Dioxide 25.2 mMol/L (20.0-31.0); Chloride 98 mMol/L (98-107); Globulin 2.9 gm/dL (2.3-3.5); Glucose 131 mg/dL (74-106); Hemoglobin 7.2 g/dL (13.5-16.0); Magnesium 2.1 mg/dL (1.6-2.6); Osmolality,Calculated 294 (275-295); Potassium 4.6 mMol/L (3.4-5.1); Sodium 137 mMol/L (136-145); Total Protein 6.1 gm/dL (5.7-8.2); Vancomycin,Random 13.6 mcg/mL; eGFR 11 See Note
--- NOTE | 2025-03-28 08:29 | PC.NURSE ---
Patient tranfer to dialysis alert and oriented x3, via hospital bed accompanied by Aileen LENZ, dialysis nurse. per Dr. 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
--- NOTE | 2025-03-28 08:46 | ESPR_ITS ---
Documentation for date of: 03/28/25 Subjective Subjective Interval history: Patient was seen and examined at bedside this morning. No overnight events. Patient yesterday had his pain more well-controlled with the [place] and the gabapentin, but he still stated that he feels he still in some pain even after these medications. Will change gabapentin to Pregabalin 25mg BID given ESRD and will also increase patient's [place] to 7.5 mg. Will continue to hold aspirin and Plavix given that care management specialist plans to do heart cath as well as angiogram of hands and legs possibly tomorrow. Patient's hemoglobin today was 7.2 therefore we will repeat her hemoglobin later on today and noon time. Exam Vital Signs Temp Pulse Resp BP Pulse Ox O2 Del Method O2 Flow Rate 98.4 F 89 18 109/78 99 Nasal Cannula 2 03/28/25 08:32 03/28/25 08:32 03/28/25 08:32 03/28/25 08:32 03/28/25 08:32 03/28/25 04:00 03/28/25 08:32 FiO2 30 03/20/25 13:21 Narrative Exam General: AO x 3, no acute distress Eyes: Pupils reactive to light, EOMI, vision intact Ears: No visible ear discharge Nose: No visible nasal discharge. Mouth/Throat: Moist mucous membranes, no redness, no lesions. Neck: Neck supple, no cervical lymphadenopathy. Lungs: Clear CHRISTIANO Cardio: Normal S1/S2, irregular, no murmurs, no JVD Abdomen: Soft, non-tender, no palpable masses, peristalsis present, no guarding or rebound Extremities: Right BKA with cyanotic changes at the stump still present and is tender, left foot demarcated purplish discoloration and necrotic changes in toes unchanged, right upper extremity 2nd and 3rd digits show necrotic changes at the tips. Skin: Right 2nd and 3rd upper extremity digits show necrotic changes at the tips with some bullae at the rest of the digit, Left foot discoloration and necrotic changes in toes. Neuro: No focal neurological deficits, motor and sensory intact. Objective Labs 03/29/25 05:28 03/29/25 05:28 Labs: Laboratory Results - last 24 hr 03/28/25 06:26 WBC 6.6 RBC 2.30 L Hgb 7.2 L Hct 23.1 L MCV 100 MCH 31.3 MCHC 31.2 RDW Std Deviation 61.0 H Plt Count 147 Neut % (Auto) 68 Lymph % (Auto) 14 Park % (Auto) 16 H Eos % (Auto) 1 Baso % (Auto) 0 Neut # (Auto) 4.5 Lymph # (Auto) 1.0 Park # (Auto) 1.0 H Eos # (Auto) 0.1 Baso # (Auto) 0.0 Immature Gran # (Auto) 0.04 H Absolute Nucleated RBC 0.00 Immature Gran % 1 H Nucleated RBC % 0 Sodium 137 Potassium 4.6 D Chloride 98 Carbon Dioxide 25.2 Anion Gap 14 BUN 66 H Creatinine 6.0 H* Estim Creat Clear Calc 19.0 L eGFR 11 L* BUN/Creatinine Ratio 11 L Glucose 131 H Calculated Osmolality 294 Calcium 7.8 L Corrected Calcium 8.4 L Magnesium 2.1 Total Bilirubin 0.6 AST 18 ALT 78 H Alkaline Phosphatase 130 H Total Protein 6.1 Albumin 3.2 L Globulin 2.9 Albumin/Globulin Ratio 1.1 L Random Vancomycin 13.6 ABG Interpretation ABG results: 03/14/25 03/14/25 03/14/25 14:44 16:44 18:53 ABG pH 7.03 L* 7.04 L* 7.10 L* ABG pCO2 43 50 H 46 ABG pO2 86 128 H D 57 L* D ABG HCO3 11 L 13 L 14 L ABG O2 Saturation 91 97 78 L ABG Base Excess -19 L -17 L -15 L VBG pH VBG pCO2 VBG pO2 VBG Base Excess 03/14/25 03/15/25 03/15/25 21:20 05:07 12:28 ABG pH 7.21 L D 7.41 D ABG pCO2 32 D 31 L ABG pO2 116 H D 74 L D ABG HCO3 13 L 20 ABG O2 Saturation 97 95 ABG Base Excess -14 L -4 L VBG pH 7.43 VBG pCO2 34 L VBG pO2 37 VBG Base Excess -1 03/16/25 03/16/25 03/16/25 04:51 11:48 19:30 ABG pH 7.46 H 7.22 L D 7.38 D ABG pCO2 29 L 66 H D 48 D ABG pO2 78 L 79 L 236 H D ABG HCO3 21 27 H 29 H ABG O2 Saturation 96 91 100 H ABG Base Excess -2 -2 3 VBG pH VBG pCO2 VBG pO2 VBG Base Excess 03/17/25 03/18/25 03/19/25 04:53 09:27 04:46 ABG pH 7.38 7.35 ABG pCO2 49 H 48 ABG pO2 78 L D 92 ABG HCO3 29 H 26 ABG O2 Saturation 95 98 ABG Base Excess 3 0 VBG pH 7.34 VBG pCO2 54 D VBG pO2 34 VBG Base Excess 2 03/24/25 22:00 ABG pH 7.33 L ABG pCO2 48 ABG pO2 233 H ABG HCO3 25 ABG O2 Saturation 101 H ABG Base Excess -1 VBG pH VBG pCO2 VBG pO2 VBG Base Excess Quality Measures Quality Measures VTE prophylaxis Assessment & Plan Assessment Current Active Medications: Generic Name Dose Route Start Last Admin Trade Name Freq PRN Reason Stop Dose Admin Acetaminophen 650 mg 03/20/25 11:35 03/21/25 06:39 Acetaminophen 325 Mg Tablet PO 04/19/25 11:34 650 mg Q6HR PRN Administration pain and Fever >100.4 Protocol Hydrocodone Bitart/Acetaminophen 1 tab 03/28/25 08:32 Hydrocodone/Apap 7.5/325 Tablet PO 04/02/25 08:31 Q6HR PRN PAIN SCALE 4-6 (Moderate Amiodarone HCl 200 mg 03/19/25 21:00 03/28/25 08:33 Amiodarone Hcl 200 Mg Tablet GT 04/18/25 20:59 Not Given BID MONTSERRAT Dextrose 25 ml 03/14/25 20:38 03/20/25 23:30 Dextrose 50%-Water Inj 50 Ml Syringe IV 04/13/25 20:37 25 ml Q15MIN PRN Administration BG 50-70 responsive npo pt Dextrose 50 ml 03/14/25 20:38 Dextrose 50%-Water Inj 50 Ml Syringe IV 04/13/25 20:37 Q15MIN PRN BG <50 OR BG <70 & pt unresponsive Gabapentin 200 mg 03/28/25 08:30 Gabapentin 100 Mg Capsule PO 04/27/25 08:29 TID MON[place]ERRAT Glucagon 1 mg 03/14/25 17:36 Glucagon Inj 1 Mg Vial IM Q15MIN PRN BG <70, and no IV access Heparin Sodium (Porcine) 3,000 unit 03/19/25 13:33 03/25/25 11:37 Heparin Sod Inj 1000 Unit/Ml Vial 10 Ml INDWELLCAT 04/02/25 13:32 3,000 unit PRN PRN Administration DIALYSIS Heparin Sodium (Porcine) 5,000 unit 03/23/25 21:00 03/28/25 08:35 Heparin Sod Inj 5000 Unit/Ml Vial SC 04/06/25 20:59 Not Given Q12HR [place]AT Hydromorphone HCl 0.25 mg 03/27/25 10:08 03/28/25 05:40 Hydromorphone Inj 2 Mg/Ml Vial IVP 04/01/25 08:44 0.25 mg Q6H PRN Administration SEVERE PAIN 7-10 Albumin Human 25 gm in 100 mls @ 100 mls/min 03/25/25 08:41 03/27/25 19:46 Albuminar-25 Ivpb IV Infused PRN PRN Infusion DIALYSIS Vancomycin/Sodium Chloride 100 mls @ 120 mls/hr 03/28/25 10:00 Vancomycin/Ns 500 Mg Ivpb IV 03/28/25 10:49 X1 ONE Insulin Human Lispro 0 unit 03/22/25 11:30 03/28/25 07:29 Insulin Lispro (Admelog) 1 Unit/0.01 Ml Unit SC 04/21/25 11:29 Not Given ACHS MON[place]ERRAT Protocol Levalbuterol HCl 0.31 mg 03/20/25 12:15 03/28/25 06:29 Levalbuterol Rt 0.31 Mg/3 Ml Nebu INH 04/19/25 12:14 0.31 mg Q6HRRT [place]AT Administration Metoprolol Succinate 25 mg 03/22/25 09:00 03/28/25 08:35 Metoprolol Succinate Xl 25 Mg Tabcr PO 04/21/25 08:59 Not Given BID [place]ERRAT Midodrine 10 mg 03/19/25 18:19 Midodrine 5 Mg Tablet GT 04/18/25 21:59 TID PRN MAP below 65 Ondansetron HCl 4 mg 03/14/25 17:31 Ondansetron Inj 2 Mg/Ml Inj 2 Ml IV 04/13/25 17:30 Q6H PRN NAUSEA OR VOMITING Protocol Pantoprazole Sodium 40 mg 03/14/25 21:00 03/28/25 08:38 Pantoprazole Inj 40 Mg Vial IVP 04/13/25 20:59 Not Given BID [facility] Pharmacy Consult 1 each 03/27/25 08:44 Vancomycin Pharmacy To Dose 1 Each Each IV 04/23/25 16:59 QDAY PRN CONSULT Polyethylene Glycol 17 gm 03/26/25 18:00 03/28/25 08:38 Polyethylene Glycol 17 Gm Packet PO 04/25/25 17:59 Not Given QDAY [facility] Sennosides 1 tab 03/26/25 18:00 03/28/25 08:38 Senna Tablet PO 04/25/25 17:59 Not Given QDAY [facility] Protocol Sodium Chloride 3 ml 03/17/25 19:00 03/28/25 04:59 Sodium Cl Rt Marjorie 3% 4 Ml Nebu (Non-Formulary) INH 04/16/25 18:59 Not Given Q6HRRT [facility] Plan 49-year-old male with past medical history of DM2, hypertension, ESRD (HD /), HFpEF (EF 55% on 2021), and right BKA due to osteomyelitis was admitted to the ICU on 03/14/2025 for acute hypoxic respiratory failure, acute encephalopathy, and shock. He was extubated and downgraded to telemetry on 03/20/2025. #Staph Hemolyticus bacteremia #CLABSI Patient grew Staphylococcus hemolyticus from blood cultures on 03/21/2025 Repeat blood cultures on 03/14/2025 have been negative for the past 48 hours Repeat echo did not show any vegetations Central line and dialysis catheter removed 03/25/2025 New tunneled catheter placed 03/26/2025 No spikes in fever or WBC Plan: Continue Vancoymycin 03/23- 04/05 Consulted infectious disease, appreciate recommendations #A-fib with RVR, rate controlled #MAT #SVT Patient again went into SVT last night and was shocked again, but on repeat EKG showed to be in A-fib RVR. Patient again went into SVT and received adenosine 6mg x1 and adenosine 12mg x1 before being cardioverted. Repeat EKG showed what appears to be MAT. [id number] score of 3 points indicating 3.2% risk of stroke per year HAS-BLED score of 5 points Plan: Continue amiodarone 200mg BID Metoprolol succinate 25mg daily No anticoagulation until patient gets heart cath Keep Potassium >4 and Mg >2 Marksmanship Instructor consulted, appreciate recommendations #Possible acute vs chronic limb ischemia. #Peripheral Vascular disease, severe Abdomen CTA with runoff that showed occlusion of multiple arteries including the left radial, gluteal, and tibial arteries as well as 90% stenosis of the left superficial femoral artery Also showed 80% stenosis of right superficial femoral artery. Overnight ICU team spoke with vascular surgeon at [facility] who stated that at this time patient was not a candidate for transfer for revascularization. Patient understands that he may lose multiple digits and even his left lower foot. Most likely needs to follow-up with vascular surgeon as an outpatient. Plan: Nitroglycerin topical ointment. Will hold aspirin and Plavix [place] 7.5/325 q6h prn and Dilaudid 0.25mg q6h prn Pregabalin 25mg BID Pt will need outpatient follow up with vascular surgeon #Acute hypoxic respiratory failure, improved. #Stenotrophomonas maltophilia pneumonia. #Respiratory acidosis, resolved. #Septic shock, resolved. Intubated on 03/14/2025. Sputum grew stenotrophomonas maltophilia. Extubated on 03/20/2025. Zosyn 03/14/2025-03/17/2025 Vancomycin 03/14/2025 - 03/15/2025. Discontinued levaquin 500mg q48hr 03/17/2025- 03/21 Plan: Continue hypertonic saline inhaled solution and chest physiotherapy. Patient will need to have a walk test prior to O2 delivery to home Midodrine 10mg TID as needed. #Troponinemia, resolved Troponins peaked at 7.899 and down trended to 7.04. Echo 03/16/2025 showed EF of 45 to 50% and septal dyskinesis. Echo on 03/23/2025 shows some improvement and left ventricle function with an EF of 50 to 55% Plan: Will continue holding aspirin and Plavix. Possible Heart cath Saturday Cardiology consulted, appreciate recommendations. #HFrEF (EF 50-55% on 2024). Echo on 03/16/2025 showed EF of 45 to 50% and septal dyskinesis. Echo on 03/23/2025 shows some improvement and left ventricle function with an EF of 50 to 55% Plan: Will continue with hemodialysis with fluid removal. Daily weights. Strict JENN's. fluid restriction. #ESRD (HD on ). #HAGMA, resolved. #Lactic acidosis, resolved. Patient was on hemodialysis and had AV fistula, but was clotted therefore cannot be used. Tunnedled dialysis cath placed 03/26/2025 Plan: Continue hemodialysis as scheduled. Jewel Staker Dr. Pleitez following, appreciate recommendations Avoid nephrotoxic agents. Renally dose medications. #Hematemesis. #Macrocytic anemia. #Thrombocytopenia. Patient's hemoglobin was downtrending from 11.9 on admission Hemoglobin 7.2 and platelets 147 No active signs of bleeding Plan: Repeat H/H in afternoon Continue to monitor daily CBC Transfuse if Hgb less than 7. #Transaminitis, improving #Hyperbilirubinemia, resolved #Hepatomegaly. Possible liver failure due to methamphetamine use? Could be due to shock liver versus hypoxia versus drug-induced. Hepatitis panel negative and abdominal ultrasound that shows some hepatomegaly with possible cirrhosis versus hepatocellular disease. Plan: Continue monitoring daily labs #Hx of DM2. ISS. Hypoglycemia protocol ordered. Hospital Maintenance: Disposition: Pending heart cath Saturday, hold aspirin and plavix until then, patient will require SNF. Diet: renal diet DVT ppx: Heparin 5000 SC Q12H GI ppx: Protonix IV. Code status: DNR. Case disclosed with Attending Dr. Amrit Lee PGY1 Attending Provider Attestation/Addendum I reviewed labs, imaging, EKG, home medications and prior available records. Face to face evaluation was performed by me. I have personally examined the patient and discussed assessment and plan with the IM team. I reviewed the resident note and agree with the plan with exceptions as below. Acute encephalopathy, resolved Acute hypoxic respiratory failure, status post intubation, s/p extubation ESRD on hemodialysis HFrEF EF 45 to 50% Atrial fibrillation with controlled ventricular rhythm PAD Gangrene of toes and fingers, in the setting of severe PAD in the vasopressors Non-STEMI Clotting of dialysis fistula Leukocytosis, improved H&H borderline. Follow-up repeat H&H: Stable Transitioned to p.o. [place] for the PAD pain. Added pregabalin Continue IV vancomycin till 04/05 Remove temporary dialysis line. Status post permacath on 03/26 Outpatient follow-up with vascular surgery for the clotted fistula Continue amiodarone. Outpatient follow-up with cardiology to discuss anticoagulation Discussed with cardiology: Will plan for cardiac catheterization on 5/5 in addition to angiogram of leg Held aspirin and Plavix prior to the cath Outpatient follow-up with vascular surgery Continue hemodialysis per nephrology recommendations PT recommended SNF. monitor worker is following
--- NOTE | 2025-03-28 09:17 | PC.SS ---
Addendum entered by Sade Sim 03/28/25 10:12: María DALTON- contacted SS and would like to know if HD provider will be able to administer [facility]com[facility]. [facility] and confirm if they can administer. SS to follow up, 03/29/25 due to HD office ([phone]) being closed. [facility] requested clarification on when IV antibiotics can be given. Dr. Castellano stated patient can receive antibiotics during HD sessions. Patient will receive antibiotics inhouse today and tomorrow , will likely discharge Saturday03/30/25. Patient will need antibiotics until 04/05/25. [facility]. Addendum entered by Sade Sim 03/28/25 09:42: [facility] on [facility] and isolation precaution. SS contacted Dr. rGay Lee, he stated patient is not on isolation precautions. [facility]; she will forward referral to [facility] for review. Original Note: Updated referral submitted to SNF facilities via [facility] to reflect patient is no longer on hospice, continues to work with PT, and is needing SNF short term. Updated/current clinicals submitted to the following facilities: [facility] known as [facility] ([facility] RESPONSES PENDING.
[2025-03-28] MEDS: PREGABALIN 25 MG CAPSULE PO ×2 (11:12→21:03)
[2025-03-28] MEDS: VANCOMYCIN/NS 500 MG IVPB 100 ML 120 MG IV (11:13)
--- NOTE | 2025-03-28 11:25 | PC.NURSE ---
Patient is back in his room, alert and oriented x3, reports he is tired.
[2025-03-28] MEDS: HYDROcodone/APAP 7.5/325 TABLET 1 TAB PO ×3 (11:32→23:39)
[2025-03-28 12:42] LABS: Hematocrit 22.9 % (41.0-53.0)
--- NOTE | 2025-03-28 13:19 | PD.RESPRO ---
Documentation for date of: 03/28/25 Subjective Subjective Interval history: Mr. Mcclain is a 49-year-old male with past medical history of type 2 diabetes mellitus, hypertension, end-stage renal disease (HD ), HFpEF (EF 50 to 55% 02/2025) and right BKA due to osteomyelitis who was brought in by ambulance to [facility] emergency department on 03/14/2025 with a chief complaint of altered mental status. Patient was intubated secondary to inability to protect airway. On presentation patient's assisted with procuring history, per patient's patient had progressive shortness of breath and had change in mentation, patient was found to be in SVT when EMS arrived was shocked once and was converted to sinus rhythm. Patient also had to get additional sessions of hemodialysis due to increase in weight, last session of hemodialysis before admission to the hospital was on 12 March 2025. Patient also does have history of methamphetamine use, urine tox screen was positive for methamphetamine and marijuana on presentation. With the progression of hospital course patient was initially managed in the intensive care unit for acute hypoxic respiratory failure was found to have stenotrophomonas maltophilia pneumonia was treated with IV antibiotics, had significant lactic acidosis respiratory acidosis and high anion gap metabolic acidosis which improved in ICU patient did require CRRT and was eventually transition to hemodialysis, patient was eventually extubated on downgraded to telemetry on 03/20/2025. Patient's hospital stay is further complicated with possible acute versus chronic limb ischemia and underlying severe peripheral vascular disease, perl software engineer discussed case with vascular surgeon at [facility] during the hospitalization, patient was a poor candidate for revascularization per documentation. Patient started on amiodarone for underlying atrial fibrillation and eventually infectious disease consulted for Staph haemolyticus bacteremia possible CLABSI. Patient continue to receive inpatient hemodialysis. 03/25/2025: Patient successfully completed 3 hours 4 minutes of dialysis session today, postdialysis weight 115.9 kg was hypotensive at times during the dialysis, tolerated dialysis well through the temporary dialysis catheter. Net fluid removed 0.5 L. Blood pressure was soft, received 2 bags of albumin during the dialysis session.Patient will need permanent dialysis catheter placement, will be scheduled with interventional radiology in a.m. after holding aspirin and Plavix. Patient will be made n.p.o. after midnight by primary team. 03/26/2025: Patient seen and examined at bedside, patient had permanent tunneled dialysis catheter placed today. Currently complains of some back pain. Patient will continue to receive IV antibiotics until 04/05/2025 with hemodialysis. Otherwise patient is stable, has no current complaints. Anticipate discharge in next 24 hours on supplemental oxygen. 03/27/2025:Patient received dialysis treatment today, completed about 2 hours of dialysis session, about 1.1 L fluid removed, postdialysis weight 115 kg, was administered 100 mL albumin during the dialysis session for low blood pressure, patient did receive alteplase through the indwelling catheter x 1. Primary team discussed the case with patient and patient's family, patient has been requiring an extensive amount of IV pain medication, further plan by primary team is to [facility] and not on hospice as patient does not have underlying clear etiology for hospice. Patient's DAPT being held, cardiology following the case and patient may undergo angiogram heart, bilateral upper and lower extremities on Saturday. 03/28/2025: Patient continues to complain of pain, patient's gabapentin changed to pregabalin 25 twice daily and Avilla was increased to 7.5 mg. Patient Aspirin and Plavix being held, patient going to undergo cardiac angiogram and angiogram upper and lower extremities likely in the morning. Will coordinate with cardiology. Exam Vital Signs Temp Pulse Resp BP Pulse Ox O2 Del Method O2 Flow Rate 97.5 F 91 18 127/79 99 Nasal Cannula 2 03/28/25 10:07 03/28/25 10:42 03/28/25 10:07 03/28/25 10:42 03/28/25 10:07 03/28/25 08:00 03/28/25 10:07 FiO2 30 03/28/25 08:00 Narrative Exam General: AO x 3, no acute distress Eyes: Pupils reactive to light, EOMI, vision intact Ears: No visible ear discharge Nose: No visible nasal discharge. Mouth/Throat: Moist mucous membranes, no redness, no lesions. Neck: Neck supple, no cervical lymphadenopathy. Right IJ catheter noted Lungs: Clear CHRISTIANO Cardio: Normal S1/S2, irregular, no murmurs, no JVD Abdomen: Soft, non-tender, no palpable masses, peristalsis present, no guarding or rebound Extremities: Right BKA with cyanotic changes at the stump still present and is tender, left foot demarcated purplish discoloration and necrotic changes in toes unchanged, right upper extremity 2nd and 3rd digits show necrotic changes at the tips. Skin: Right 2nd and 3rd upper extremity digits show necrotic changes at the tips with some bullae at the rest of the digit, Left foot discoloration and necrotic changes in toes. Neuro: No focal neurological deficits, motor and sensory intact. Objective Labs 03/29/25 05:28 03/29/25 05:28 Labs: Laboratory Results - last 24 hr 03/28/25 06:26 WBC 6.6 RBC 2.30 L Hgb 7.2 L Hct 23.1 L MCV 100 MCH 31.3 MCHC 31.2 RDW Std Deviation 61.0 H Plt Count 147 Neut % (Auto) 68 Lymph % (Auto) 14 [place] % (Auto) 16 H Eos % (Auto) 1 Baso % (Auto) 0 Neut # (Auto) 4.5 Lymph # (Auto) 1.0 [place] # (Auto) 1.0 H Eos # (Auto) 0.1 Baso # (Auto) 0.0 Immature Gran # (Auto) 0.04 H Absolute Nucleated RBC 0.00 Immature Gran % 1 H Nucleated RBC % 0 Sodium 137 Potassium 4.6 D Chloride 98 Carbon Dioxide 25.2 Anion Gap 14 BUN 66 H Creatinine 6.0 H* Estim Creat Clear Calc 19.0 L eGFR 11 L* BUN/Creatinine Ratio 11 L Glucose 131 H Calculated Osmolality 294 Calcium 7.8 L Corrected Calcium 8.4 L Magnesium 2.1 Total Bilirubin 0.6 AST 18 ALT 78 H Alkaline Phosphatase 130 H Total Protein 6.1 Albumin 3.2 L Globulin 2.9 Albumin/Globulin Ratio 1.1 L Random Vancomycin 13.6 ABG Interpretation ABG results: 03/14/25 03/14/25 03/14/25 14:44 16:44 18:53 ABG pH 7.03 L* 7.04 L* 7.10 L* ABG pCO2 43 50 H 46 ABG pO2 86 128 H D 57 L* D ABG HCO3 11 L 13 L 14 L ABG O2 Saturation 91 97 78 L ABG Base Excess -19 L -17 L -15 L VBG pH VBG pCO2 VBG pO2 VBG Base Excess 03/14/25 03/15/25 03/15/25 21:20 05:07 12:28 ABG pH 7.21 L D 7.41 D ABG pCO2 32 D 31 L ABG pO2 116 H D 74 L D ABG HCO3 13 L 20 ABG O2 Saturation 97 95 ABG Base Excess -14 L -4 L VBG pH 7.43 VBG pCO2 34 L VBG pO2 37 VBG Base Excess -1 03/16/25 03/16/25 03/16/25 04:51 11:48 19:30 ABG pH 7.46 H 7.22 L D 7.38 D ABG pCO2 29 L 66 H D 48 D ABG pO2 78 L 79 L 236 H D ABG HCO3 21 27 H 29 H ABG O2 Saturation 96 91 100 H ABG Base Excess -2 -2 3 VBG pH VBG pCO2 VBG pO2 VBG Base Excess 03/17/25 03/18/25 03/19/25 04:53 09:27 04:46 ABG pH 7.38 7.35 ABG pCO2 49 H 48 ABG pO2 78 L D 92 ABG HCO3 29 H 26 ABG O2 Saturation 95 98 ABG Base Excess 3 0 VBG pH 7.34 VBG pCO2 54 D VBG pO2 34 VBG Base Excess 2 03/24/25 22:00 ABG pH 7.33 L ABG pCO2 48 ABG pO2 233 H ABG HCO3 25 ABG O2 Saturation 101 H ABG Base Excess -1 VBG pH VBG pCO2 VBG pO2 VBG Base Excess Quality Measures Quality Measures VTE prophylaxis Assessment & Plan Assessment Current Active Medications: Generic Name Dose Route Start Last Admin Trade Name Freq PRN Reason Stop Dose Admin Acetaminophen 650 mg 03/20/25 11:35 03/21/25 06:39 Acetaminophen 325 Mg Tablet PO 04/19/25 11:34 650 mg Q6HR PRN Administration pain and Fever >100.4 Protocol Hydrocodone Bitart/Acetaminophen 1 tab 03/28/25 08:32 03/28/25 11:32 Hydrocodone/Apap 7.5/325 Tablet PO 04/02/25 08:31 1 tab Q6HR PRN Administration PAIN SCALE 4-6 (Moderate Amiodarone HCl 200 mg 03/19/25 21:00 03/28/25 08:33 Amiodarone Hcl 200 Mg Tablet GT 04/18/25 20:59 Not Given BID [place] Dextrose 25 ml 03/14/25 20:38 03/20/25 23:30 Dextrose 50%-Water Inj 50 Ml Syringe IV 04/13/25 20:37 25 ml Q15MIN PRN Administration BG 50-70 responsive npo pt Dextrose 50 ml 03/14/25 20:38 Dextrose 50%-Water Inj 50 Ml Syringe IV 04/13/25 20:37 Q15MIN PRN BG <50 OR BG <70 & pt unresponsive Glucagon 1 mg 03/14/25 17:36 Glucagon Inj 1 Mg Vial IM Q15MIN PRN BG <70, and no IV access Heparin Sodium (Porcine) 3,000 unit 03/19/25 13:33 03/25/25 11:37 Heparin Sod Inj 1000 Unit/Ml Vial 10 Ml INDWELLCAT 04/02/25 13:32 3,000 unit PRN PRN Administration DIALYSIS Heparin Sodium (Porcine) 5,000 unit 03/23/25 21:00 03/28/25 08:35 Heparin Sod Inj 5000 Unit/Ml Vial SC 04/06/25 20:59 Not Given Q12HR [place] Hydromorphone HCl 0.25 mg 03/27/25 10:08 03/28/25 05:40 Hydromorphone Inj 2 Mg/Ml Vial IVP 04/01/25 08:44 0.25 mg Q6H PRN Administration SEVERE PAIN 7-10 Albumin Human 25 gm in 100 mls @ 100 mls/min 03/25/25 08:41 03/27/25 19:46 Albuminar-25 Ivpb IV Infused PRN PRN Infusion DIALYSIS Insulin Human Lispro 0 unit 03/22/25 11:30 03/28/25 11:36 Insulin Lispro (Admelog) 1 Unit/0.01 Ml Unit SC 04/21/25 11:29 Not Given ACHS [facility] Protocol Levalbuterol HCl 0.31 mg 03/28/25 10:24 Levalbuterol Rt 0.31 Mg/3 Ml Nebu INH 04/19/25 12:14 Q6HRRT PRN Wheezing Metoprolol Succinate 25 mg 03/22/25 09:00 03/28/25 08:35 Metoprolol Succinate Xl 25 Mg Tabcr PO 04/21/25 08:59 Not Given BID [place] Midodrine 10 mg 03/19/25 18:19 Midodrine 5 Mg Tablet GT 04/18/25 21:59 TID PRN MAP below 65 Ondansetron HCl 4 mg 03/14/25 17:31 Ondansetron Inj 2 Mg/Ml Inj 2 Ml IV 04/13/25 17:30 Q6H PRN NAUSEA OR VOMITING Protocol Pantoprazole Sodium 40 mg 03/14/25 21:00 03/28/25 08:38 Pantoprazole Inj 40 Mg Vial IVP 04/13/25 20:59 Not Given BID [place] Pharmacy Consult 1 each 03/27/25 08:44 Vancomycin Pharmacy To Dose 1 Each Each IV 04/23/25 16:59 QDAY PRN CONSULT Polyethylene Glycol 17 gm 03/26/25 18:00 03/28/25 08:38 Polyethylene Glycol 17 Gm Packet PO 04/25/25 17:59 Not Given QDAY [place] Pregabalin 25 mg 03/28/25 10:00 03/28/25 11:12 Pregabalin 25 Mg Capsule PO 04/27/25 09:59 25 mg BID [place] Administration Sennosides 1 tab 03/26/25 18:00 03/28/25 08:38 Senna Tablet PO 04/25/25 17:59 Not Given QDAY [place] Protocol Sodium Chloride 3 ml 03/17/25 19:00 03/28/25 04:59 Sodium Cl Rt Marjorie 3% 4 Ml Nebu (Non-Formulary) INH 04/16/25 18:59 Not Given Q6HRRT [place] Plan Assessment and Plan: Summary: Mr. Mcclain is a 49 years old male with PMH of DM2, hypertension, ESRD (HD ), HFpEF (EF 55% on 2021), and right BKA due to osteomyelitis BIBA to the ED due to AMS, was intubated and started on pressors and was admitted to the ICU on 03/14/2025 for management of shock of unknown etiology and was started on IV antibiotics. On 03/17 his sputum culture grew stenotrophomonas maltophilia and antibiotics were changed to levofloxacin. He was extubated and downgraded to telemetry on 03/20/2025 for continuation of care. # End-stage renal disease (HD on ). Patient received CRRT in intensive care unit, was transition to hemodialysis. Patient will need a line holiday and placement of due to underlying bacteremia. Primary team to hold aspirin and Plavix, catheter will be exchanged in a.m. possibly Patient received permanent tunneled dialysis catheter placement on 03/26/2025. 03/28/2025: Patient continues to complain of pain, patient's gabapentin changed to pregabalin 25 twice daily and Avilla was increased to 7.5 mg. Patient Aspirin and Plavix being held, patient going to undergo cardiac angiogram and angiogram upper and lower extremities likely in the morning. Will coordinate with cardiology. Plan: - Continue with hemodialysis inpatient - Avoid nephrotoxic agents. - Renally dose medications. #Staph Hemolyticus bacteremia #CLABSI Patient tested for gram-positive cocci (staph hymolyticus ) 2/2 blood blood cultures on 03/21/2025 Patient currently has temporary dialysis catheter, aspirin and Plavix will be held Will be scheduled for permanent tunneled dialysis catheter placement in a.m. #Acute blood loss Anemia #Hematemesis. #Macrocytic anemia. #Thrombocytopenia. Hemoglobin 7.9, RBC 2.48, hematocrit 25%, MCV 101, platelets 131 today - Management as per primary team #HFrEF (EF 50-55% on 2024) #A-fib with RVR, rate controlled #Troponinemia - resolved Patient had improved ejection fraction compared to the echocardiogram from a week ago, cardiology is consulted. Patient is on amiodarone for atrial fibrillation. - Management as per primary team #Possible acute vs chronic limb ischemia. #Peripheral Vascular disease, severe Patient has severe vascular disease, case was discussed by ICU team with a vascular surgeon at [facility] Patient is poor candidate for surgery per documentation -Patient was referred to hospice by primary team #Acute hypoxic respiratory failure, improved. #Stenotrophomonas maltophilia pneumonia. #Respiratory acidosis, resolved. #Septic shock, resolved. - Management as per primary team #Transaminitis. #Hyperbilirubinemia #Hepatomegaly. #Hx of DM2. #Hypoglycemia, resolved. -Management per primary team Case discussed with Attending Dr. Wilson. Marycarmen Clark PGY1 Disclaimer: This note was dictated by speech recognition. Minor errors in printing press machine operator may be present due to voice recognition software. Attending Provider Attestation/Addendum Labs are reviewed. seen and examined.agree with assessmsnt and plan and findings by resident. Héctor wilson MD
[2025-03-28 13:22] LABS: Hemoglobin 7.1 g/dL (13.5-16.0)
--- NOTE | 2025-03-28 13:35 | ESPR_ITS ---
<Statement entered by Yanci Villalobos MD - 03/28/25 17:47> I personally examined the patient again today he still having severe problems with his right upper extremity as well as left lower extremity gangrenous changes has severe vascular disease good femoral pulses sepsis improved hemoglobin slowly dropping to 7 and half grams end-stage renal disease on stage V on hemodialysis now has had acute myocardial infarction with troponin elevation earlier in the admission recommended to have coronary angiogram but because of sepsis and gram-positive cocci Darline postponed it last week appears to be stable to have this procedure tomorrow. Risk-benefit alternatives explained recommended to have coronary angiogram at the same time try assess the right upper extremity angiogram and will also do a left lower extremity angiogram to plan for possible intervention. Evaluated the patient with PGY 2 Dr. Wilkinson and will monitor the patient and schedule for angiogram tomorrow Documentation for date of: 03/28/25 Subjective Subjective Interval history: Patient was seen and examined at the bedside. No acute overnight events. Patient continues to complain for pain in his bilateral upper extremities. He denies any chest pain, shortness of breath, palpitations. His right upper extremity appears swollen where the IV peripheral catheter inserted therefore left EJ catheter was placed due to difficulty placing IV lines. Patient is scheduled for coronary angiography, abdominal angiography and upper and lower extremities angiography for tomorrow with possible PCI. N.p.o. after midnight, hold heparin after midnight. Continue current management and monitor patient. Exam Vital Signs Temp Pulse Resp BP Pulse Ox O2 Del Method O2 Flow Rate 97.5 F 91 18 127/79 99 Nasal Cannula 2 03/28/25 10:07 03/28/25 10:42 03/28/25 10:07 03/28/25 10:42 03/28/25 10:07 03/28/25 08:00 03/28/25 10:07 FiO2 30 03/28/25 08:00 Narrative Exam Gen: Well-developed male not in distress. HEENT: NCAT, PERRLA, EOMI, MMM, anicteric conjunctivae. CVS: normal S1 and S2. RRR. No M/R/G. Resp: CTA B/L. No rhonchi, rales, crackles or wheezing. Abd: soft, non-tender, non-distended. BS+ in all 4 quadrants. Bilateral flank pitting edema. MSK: S/p right BKA, stump appears necrotic, right thigh has blister. Left foot is purplish discoloration, necrotic changes in toes. 3+ pitting edema LLE. Dry gangrene over right 2nd and 3rd digits. Tip of left second digit appears necrotic. Neuro: CN II-XII grossly intact. Alert and oriented x3. Psych: appropriate mood and affect. Objective Labs 03/28/25 12:05 03/28/25 06:26 Labs: Laboratory Results - last 24 hr 03/28/25 03/28/25 06:26 12:05 WBC 6.6 RBC 2.30 L Hgb 7.2 L 7.1 L Hct 23.1 L 22.9 L MCV 100 MCH 31.3 MCHC 31.2 RDW Std Deviation 61.0 H Plt Count 147 Neut % (Auto) 68 Lymph % (Auto) 14 [place] % (Auto) 16 H Eos % (Auto) 1 Baso % (Auto) 0 Neut # (Auto) 4.5 Lymph # (Auto) 1.0 [place] # (Auto) 1.0 H Eos # (Auto) 0.1 Baso # (Auto) 0.0 Immature Gran # (Auto) 0.04 H Absolute Nucleated RBC 0.00 Immature Gran % 1 H Nucleated RBC % 0 Sodium 137 Potassium 4.6 D Chloride 98 Carbon Dioxide 25.2 Anion Gap 14 BUN 66 H Creatinine 6.0 H* Estim Creat Clear Calc 19.0 L eGFR 11 L* BUN/Creatinine Ratio 11 L Glucose 131 H Calculated Osmolality 294 Calcium 7.8 L Corrected Calcium 8.4 L Magnesium 2.1 Total Bilirubin 0.6 AST 18 ALT 78 H Alkaline Phosphatase 130 H Total Protein 6.1 Albumin 3.2 L Globulin 2.9 Albumin/Globulin Ratio 1.1 L Random Vancomycin 13.6 ABG Interpretation ABG results: 03/14/25 03/14/25 03/14/25 14:44 16:44 18:53 ABG pH 7.03 L* 7.04 L* 7.10 L* ABG pCO2 43 50 H 46 ABG pO2 86 128 H D 57 L* D ABG HCO3 11 L 13 L 14 L ABG O2 Saturation 91 97 78 L ABG Base Excess -19 L -17 L -15 L VBG pH VBG pCO2 VBG pO2 VBG Base Excess 03/14/25 03/15/25 03/15/25 21:20 05:07 12:28 ABG pH 7.21 L D 7.41 D ABG pCO2 32 D 31 L ABG pO2 116 H D 74 L D ABG HCO3 13 L 20 ABG O2 Saturation 97 95 ABG Base Excess -14 L -4 L VBG pH 7.43 VBG pCO2 34 L VBG pO2 37 VBG Base Excess -1 03/16/25 03/16/25 03/16/25 04:51 11:48 19:30 ABG pH 7.46 H 7.22 L D 7.38 D ABG pCO2 29 L 66 H D 48 D ABG pO2 78 L 79 L 236 H D ABG HCO3 21 27 H 29 H ABG O2 Saturation 96 91 100 H ABG Base Excess -2 -2 3 VBG pH VBG pCO2 VBG pO2 VBG Base Excess 03/17/25 03/18/25 03/19/25 04:53 09:27 04:46 ABG pH 7.38 7.35 ABG pCO2 49 H 48 ABG pO2 78 L D 92 ABG HCO3 29 H 26 ABG O2 Saturation 95 98 ABG Base Excess 3 0 VBG pH 7.34 VBG pCO2 54 D VBG pO2 34 VBG Base Excess 2 03/24/25 22:00 ABG pH 7.33 L ABG pCO2 48 ABG pO2 233 H ABG HCO3 25 ABG O2 Saturation 101 H ABG Base Excess -1 VBG pH VBG pCO2 VBG pO2 VBG Base Excess Quality Measures Quality Measures VTE prophylaxis Assessment & Plan Assessment Current Active Medications: Generic Name Dose Route Start Last Admin Trade Name Lilly PRN Reason Stop Dose Admin Acetaminophen 650 mg 03/20/25 11:35 03/21/25 06:39 Acetaminophen 325 Mg Tablet PO 04/19/25 11:34 650 mg Q6HR PRN Administration pain and Fever >100.4 Protocol Hydrocodone Bitart/Acetaminophen 1 tab 03/28/25 08:32 03/28/25 11:32 Hydrocodone/Apap 7.5/325 Tablet PO 04/02/25 08:31 1 tab Q6HR PRN Administration PAIN SCALE 4-6 (Moderate Amiodarone HCl 200 mg 03/19/25 21:00 03/28/25 08:33 Amiodarone Hcl 200 Mg Tablet GT 04/18/25 20:59 Not Given BID [place] Dextrose 25 ml 03/14/25 20:38 03/20/25 23:30 Dextrose 50%-Water Inj 50 Ml Syringe IV 04/13/25 20:37 25 ml Q15MIN PRN Administration BG 50-70 responsive npo pt Dextrose 50 ml 03/14/25 20:38 Dextrose 50%-Water Inj 50 Ml Syringe IV 04/13/25 20:37 Q15MIN PRN BG <50 OR BG <70 & pt unresponsive Glucagon 1 mg 03/14/25 17:36 Glucagon Inj 1 Mg Vial IM Q15MIN PRN BG <70, and no IV access Heparin Sodium (Porcine) 3,000 unit 03/19/25 13:33 03/25/25 11:37 Heparin Sod Inj 1000 Unit/Ml Vial 10 Ml INDWELLCAT 04/02/25 13:32 3,000 unit PRN PRN Administration DIALYSIS Heparin Sodium (Porcine) 5,000 unit 03/23/25 21:00 03/28/25 08:35 Heparin Sod Inj 5000 Unit/Ml Vial SC 04/06/25 20:59 Not Given Q12HR [place] Hydromorphone HCl 0.25 mg 03/27/25 10:08 03/28/25 13:29 Hydromorphone Inj 2 Mg/Ml Vial IVP 04/01/25 08:44 0.25 mg Q6H PRN Administration SEVERE PAIN 7-10 Albumin Human 25 gm in 100 mls @ 100 mls/min 03/25/25 08:41 03/27/25 19:46 Albuminar-25 Ivpb IV Infused PRN PRN Infusion DIALYSIS Insulin Human Lispro 0 unit 03/22/25 11:30 03/28/25 11:36 Insulin Lispro (Admelog) 1 Unit/0.01 Ml Unit SC 04/21/25 11:29 Not Given ACHS [place] Protocol Levalbuterol HCl 0.31 mg 03/28/25 10:24 Levalbuterol Rt 0.31 Mg/3 Ml Nebu INH 04/19/25 12:14 Q6HRRT PRN Wheezing Metoprolol Succinate 25 mg 03/22/25 09:00 03/28/25 08:35 Metoprolol Succinate Xl 25 Mg Tabcr PO 04/21/25 08:59 Not Given BID [place] Midodrine 10 mg 03/19/25 18:19 Midodrine 5 Mg Tablet GT 04/18/25 21:59 TID PRN MAP below 65 Ondansetron HCl 4 mg 03/14/25 17:31 Ondansetron Inj 2 Mg/Ml Inj 2 Ml IV 04/13/25 17:30 Q6H PRN NAUSEA OR VOMITING Protocol Pantoprazole Sodium 40 mg 03/14/25 21:00 03/28/25 08:38 Pantoprazole Inj 40 Mg Vial IVP 04/13/25 20:59 Not Given BID [place] Pharmacy Consult 1 each 03/27/25 08:44 Vancomycin Pharmacy To Dose 1 Each Each IV 04/23/25 16:59 QDAY PRN CONSULT Polyethylene Glycol 17 gm 03/26/25 18:00 03/28/25 08:38 Polyethylene Glycol 17 Gm Packet PO 04/25/25 17:59 Not Given QDAY [place] Pregabalin 25 mg 03/28/25 10:00 03/28/25 11:12 Pregabalin 25 Mg Capsule PO 04/27/25 09:59 25 mg BID [place] Administration Sennosides 1 tab 03/26/25 18:00 03/28/25 08:38 Senna Tablet PO 04/25/25 17:59 Not Given QDAY [facility] [place] Protocol Sodium Chloride 3 ml 03/17/25 19:00 03/28/25 04:59 Sodium Cl Rt Marjorie 3% 4 Ml Nebu (Non-Formulary) INH 04/16/25 18:59 Not Given Q6HRRT [place] Plan 49-year-old male with past medical history of DM2, hypertension, ESRD (HD ), HFpEF (EF 55% on 2021), and right BKA due to osteomyelitis was initially admitted to the ICU on 03/14/2025 for acute hypoxic respiratory failure, acute encephalopathy, and shock. He was subsequently extubated and downgraded to telemetry on 03/20/2025 for continuation of care. #Status post acute non-ST segment elevation myocardial infarction, NSTEMI possible type 2 troponin versus NSTEMI. #SVT episodes. #Afib, rate controlled. #Decompensated HFpEF (EF 45-50%). Patient s/p intubation and pressor support in ICU for shock, distributive secondary to sepsis versus cardiogenic. Patient initially presented to ED in SVT and required shock x1. Troponin initially 1.856 uptrended to 7.899 peak. Patient was treated for pneumonia. Patient was able to wean off pressors, extubated, now downgraded to tele. CT LER showed diffuse stenosis on the arteries of the LLE, occlusions in almost all major arteries. Echo done on 03/16/2025 showed LV appears normal with EF 45-50%. Septal dyskinesis is seen, RV appears normal with RVSP 50 mmHg. Mildly dilated LA & RA Mild mitral regurgitation Mild-Moderate TR. 03/21, patient had 2 rapid response events for SVT in the 170-200s which self converted in minutes. Plan: -Continue amiodarone 200 mg BID -Continue metoprolol succinate 25 mg BID -Maintain K >4.0 and Mag >2.0 -Continue dialysis per Nephro -scheduled for coronary angiography, abdominal angiography and upper and lower extremities angiography for tomorrow with possible PCI. -N.p.o. after midnight, hold heparin after midnight. #Extensive atherosclerotic cardiovascular disease with bilateral femoral artery occlusions and distal trifurcation disease with gangrenous changes. -Patient has history of right extremity BKA due to severe PAD. This admission after severe shock requiring pressor support patient subsequently developed ischemia of the right and left fingertips. Vascular surgeon stated that the patient is not a candidate at this time for revascularization, however stated that would discuss case with general surgeon. Likely upper extremity digits affected by vasopressor support in combination with severe PAD causing limb ischemia. -Later down the line consider extremity angiogram to visualize upper and lower extremity artery flow and possible need for stent, however patient must have bacteremia treated first -on hold aspirin 81 mg qday. -on hold clopidogrel 75 mg qday. -Continue antibiotics for now. #GPC bacteremia. #Leukocytosis. #Staph hemolyticus bacteremia. Patient tested for gram-positive cocci 2/2 blood cultures on 03/21/2025, first positive blood cultures this admission. Patient has not been febrile, however has had persistent leukocytosis. Patient subsequently getting all lines removed after receiving dialysis. -Repeat echo on 03/23- Aortic valve leaflets with sclerosis calcification thickening of the cusp but no stenosis. No evidence of vegetation detected. Mitral valve annular show mild calcification mitral leaflets with thickening regurgitations.Left atrium appears to be mildly dilated.Left ventricle is normal with evidence of mild anteroseptal hypokinesis with well-preserved ejection fraction of 50 to 55%. Right heart structures normal. Mild tricuspid regurgitation with no evidence of pulmonary hypertension normal PA pressures. Tricuspid and pulmonic valves appear normal no vegetations. Compared to the study a week ago no change except some improvement in LV function. -Repeat blood cultures is negative. -Continue vancomycin IV as per ID recs. -he got a new dialysis catheter. #Hypotension- resolved. S/p shock weaned off pressors, multifactorial likely distributive and some component cardiogenic. -Continue midodrine 10 mg TID as needed. Rest of conditions to continue current management per primary team: #Acute hypoxic respiratory failure #Community-acquired pneumonia, Stenotrophomonas maltophilia #ESRD (HD on ) #History of type 2 diabetes #Respiratory acidosis, resolved #HAGMA, resolved #Lactic acidosis, resolved #Hyperkalemia, resolved #Shock liver, resolved #Possible GI bleed #Macrocytic anemia #Thrombocytopenia #Hematemesis, resolved #Hypoglycemia, resolved Discussed the patient with my attending Dr Villalobos. Minh Smith MD, PGY 2. Disclaimer: This note was dictated by speech recognition. Minor errors in lap maker may be present due to voice recognition software.
--- NOTE | 2025-03-28 16:33 | PC.NURSE ---
pulse oximetry probe on nose, skin intact.
[2025-03-28] MEDS: PANTOPRAZOLE INJ 40 MG VIAL IVP (21:02)
[2025-03-28] MEDS: AMIODARONE HCL 200 MG TABLET GT (21:03)
[2025-03-28] MEDS: METOPROLOL SUCCINATE XL 25 MG TABCR PO (21:19)
[2025-03-29] VITALS (24 sets, daily range): BP systolic 100–168; BP diastolic 62–98; PULSE 84–93; RESP 12–22; TEMP 36.2–37.1; O2SAT 92–100; BMI 34.1
[2025-03-29] MEDS: HYDROmorphone INJ 2 MG/ML VIAL 0.25 MG IVP ×4 (02:53→22:01)
[2025-03-29] MEDS: HYDROcodone/APAP 7.5/325 TABLET 1 TAB PO ×2 (05:40→19:05)
[2025-03-29 06:28] LABS: Basophils % (Auto) 1 % (0-2.5); Eosinophils # (Auto) 0.1 Thou/mm3 (0.0-0.5); Eosinophils % (Auto) 1 % (0-10); Hematocrit 23.9 % (41.0-53.0); Immature Granulocytes % (Auto) 1 % (0-0); Immature Granulocytes Auto 0.05 Thou/mm3 (0.00-0.00); Lymphocytes # (Auto) 0.7 Thou/mm3 (1.0-4.8); Lymphocytes % (Auto) 14 % (10-50); Mean Corpuscular HGB Conc 30.1 g/dl (31.0-37.0); Mean Corpuscular Hemoglobin 31.4 pg (25.0-35.0); Mean Corpuscular Volume 104 fL (80-100); Monocytes % (Auto) 19 % (0-12); Neutrophils # (Auto) 3.4 Thou/mm3 (1.8-7.7); Neutrophils % (Auto) 65 % (37-80); Nucleated Red Blood Cell % 0 /100 WBC (0); Platelet Count 156 Thou/mm3 (140-440); RDW Standard Deviation 63.3 fL (35.1-43.9); Red Blood Count 2.29 Miln/mm3 (4.50-5.90); White Blood Count 5.2 Thou/mm3 (3.8-10.6)
[2025-03-29 06:39] LABS: Alanine Aminotransferase 63 U/L (10-49); Alkaline Phosphatase 123 U/L (46-116); Anion Gap 12 (7-16); Aspartate Amino Transferase 14 U/L (0-34); BUN/Creatinine Ratio 11 Ratio (12-20); Bilirubin,Total 0.6 mg/dL (0.3-1.2); Blood Urea Nitrogen 59 mg/dL (9-23); Calcium 7.7 mg/dL (8.3-10.6); Calcium (Corrected) 8.5 mg/dL (8.5-10.1); Carbon Dioxide 26.4 mMol/L (20.0-31.0); Chloride 99 mMol/L (98-107); Creatinine (Component) 5.6 mg/dL (0.6-1.3); Estimated Creatinine Clearance 20.4 mL/min (>60); Globulin 2.9 gm/dL (2.3-3.5); Glucose 104 mg/dL (74-106); Osmolality,Calculated 290 (275-295); Potassium 4.5 mMol/L (3.4-5.1); Sodium 137 mMol/L (136-145); Total Protein 5.9 gm/dL (5.7-8.2); eGFR 12 See Note
[2025-03-29 07:13] LABS: Hemoglobin 7.2 g/dL (13.5-16.0)
[2025-03-29 08:48] LABS: Partial Thromboplastin Time 26.2 Seconds (22.0-36.0); Prothrombin Time 11.4 Seconds (9.0-12.2)
--- NOTE | 2025-03-29 08:57 | PC.SS ---
SS follow up note; Angio and Hostage Negotiator today. Pending discharge plan. [facility] could possibly take patient, SS awaiting a call back from María who reported they need to discuss with ABIEL.
[2025-03-29] MEDS: AMIODARONE HCL 200 MG TABLET GT ×2 (09:06→22:02)
[2025-03-29] MEDS: SENNA TABLET 1 TAB PO (09:07)
[2025-03-29] MEDS: METOPROLOL SUCCINATE XL 25 MG TABCR PO (09:07)
[2025-03-29] MEDS: PREGABALIN 25 MG CAPSULE PO (09:07)
[2025-03-29] MEDS: PANTOPRAZOLE INJ 40 MG VIAL IVP ×2 (09:07→22:01)
[2025-03-29] MEDS: DIAZEPAM 5 MG TABLET PO (10:30)
--- NOTE | 2025-03-29 10:31 | PD.RESPRO ---
Documentation for date of: 03/29/25 Subjective Subjective Interval history: Patient was seen and examined at bedside this morning. No overnight events. Patient stated that his pain yesterday was a little bit less controlled and that he only had the Dilaudid which seemed to help, but only for a short period time. Will increase patient's Lyrica to 50 mg twice daily. Patient will undergo heart catheterization today as well as angiogram of hands and legs. Will follow-up with cardiology afterwards. Exam Vital Signs Temp Pulse Resp BP Pulse Ox O2 Del Method O2 Flow Rate 97.2 F 91 20 106/65 95 Nasal Cannula 1 03/29/25 08:00 03/29/25 09:07 03/29/25 08:00 03/29/25 09:07 03/29/25 08:00 03/29/25 08:00 03/29/25 08:00 FiO2 30 03/28/25 08:00 Narrative Exam General: AO x 3, no acute distress Eyes: Pupils reactive to light, EOMI, vision intact Ears: No visible ear discharge Nose: No visible nasal discharge. Mouth/Throat: Moist mucous membranes, no redness, no lesions. Neck: Neck supple, no cervical lymphadenopathy. Lungs: Clear CHRISTIANO Cardio: Normal S1/S2, irregular, no murmurs, no JVD Abdomen: Soft, non-tender, no palpable masses, peristalsis present, no guarding or rebound Extremities: Right BKA with cyanotic changes at the stump still present and is tender, left foot demarcated purplish discoloration and necrotic changes in toes unchanged, right upper extremity 2nd and 3rd digits show necrotic changes at the tips. Skin: Right 2nd and 3rd upper extremity digits show necrotic changes at the tips with some bullae at the rest of the digit, Left foot discoloration and necrotic changes in toes. Neuro: No focal neurological deficits, motor and sensory intact. Objective Labs 03/29/25 05:28 03/29/25 05:28 Labs: Laboratory Results - last 24 hr 03/28/25 03/29/25 12:05 05:28 WBC 5.2 RBC 2.29 L Hgb 7.1 L 7.2 L Hct 22.9 L 23.9 L MCV 104 H MCH 31.4 MCHC 30.1 L RDW Std Deviation 63.3 H Plt Count 156 Neut % (Auto) 65 Lymph % (Auto) 14 [place] % (Auto) 19 H Eos % (Auto) 1 Baso % (Auto) 1 Neut # (Auto) 3.4 Lymph # (Auto) 0.7 L [place] # (Auto) 1.0 H Eos # (Auto) 0.1 Baso # (Auto) 0.0 Immature Gran # (Auto) 0.05 H Absolute Nucleated RBC 0.00 Immature Gran % 1 H Nucleated RBC % 0 PT 11.4 INR 1.0 APTT 26.2 Sodium 137 Potassium 4.5 Chloride 99 Carbon Dioxide 26.4 Anion Gap 12 BUN 59 H Creatinine 5.6 H* Estim Creat Clear Calc 20.4 L eGFR 12 L* BUN/Creatinine Ratio 11 L Glucose 104 Calculated Osmolality 290 Calcium 7.7 L Corrected Calcium 8.5 Magnesium 2.0 Total Bilirubin 0.6 AST 14 ALT 63 H Alkaline Phosphatase 123 H Total Protein 5.9 Albumin 3.0 L Globulin 2.9 Albumin/Globulin Ratio 1.0 L Random Vancomycin 15.0 ABG Interpretation ABG results: 03/14/25 03/14/25 03/14/25 14:44 16:44 18:53 ABG pH 7.03 L* 7.04 L* 7.10 L* ABG pCO2 43 50 H 46 ABG pO2 86 128 H D 57 L* D ABG HCO3 11 L 13 L 14 L ABG O2 Saturation 91 97 78 L ABG Base Excess -19 L -17 L -15 L VBG pH VBG pCO2 VBG pO2 VBG Base Excess 03/14/25 03/15/25 03/15/25 21:20 05:07 12:28 ABG pH 7.21 L D 7.41 D ABG pCO2 32 D 31 L ABG pO2 116 H D 74 L D ABG HCO3 13 L 20 ABG O2 Saturation 97 95 ABG Base Excess -14 L -4 L VBG pH 7.43 VBG pCO2 34 L VBG pO2 37 VBG Base Excess -1 03/16/25 03/16/25 03/16/25 04:51 11:48 19:30 ABG pH 7.46 H 7.22 L D 7.38 D ABG pCO2 29 L 66 H D 48 D ABG pO2 78 L 79 L 236 H D ABG HCO3 21 27 H 29 H ABG O2 Saturation 96 91 100 H ABG Base Excess -2 -2 3 VBG pH VBG pCO2 VBG pO2 VBG Base Excess 03/17/25 03/18/25 03/19/25 04:53 09:27 04:46 ABG pH 7.38 7.35 ABG pCO2 49 H 48 ABG pO2 78 L D 92 ABG HCO3 29 H 26 ABG O2 Saturation 95 98 ABG Base Excess 3 0 VBG pH 7.34 VBG pCO2 54 D VBG pO2 34 VBG Base Excess 2 03/24/25 22:00 ABG pH 7.33 L ABG pCO2 48 ABG pO2 233 H ABG HCO3 25 ABG O2 Saturation 101 H ABG Base Excess -1 VBG pH VBG pCO2 VBG pO2 VBG Base Excess Quality Measures Quality Measures VTE prophylaxis Assessment & Plan Assessment Current Active Medications: Generic Name Dose Route Start Last Admin Trade Name Freq PRN Reason Stop Dose Admin Acetaminophen 650 mg 03/20/25 11:35 03/21/25 06:39 Acetaminophen 325 Mg Tablet PO 04/19/25 11:34 650 mg Q6HR PRN Administration pain and Fever >100.4 Protocol Hydrocodone Bitart/Acetaminophen 1 tab 03/28/25 08:32 03/29/25 05:40 Hydrocodone/Apap 7.5/325 Tablet PO 04/02/25 08:31 1 tab Q6HR PRN Administration PAIN SCALE 4-6 (Moderate Amiodarone HCl 200 mg 03/19/25 21:00 03/29/25 09:06 Amiodarone Hcl 200 Mg Tablet GT 04/18/25 20:59 200 mg BID [place] Administration Dextrose 25 ml 03/14/25 20:38 03/20/25 23:30 Dextrose 50%-Water Inj 50 Ml Syringe IV 04/13/25 20:37 25 ml Q15MIN PRN Administration BG 50-70 responsive npo pt Dextrose 50 ml 03/14/25 20:38 Dextrose 50%-Water Inj 50 Ml Syringe IV 04/13/25 20:37 Q15MIN PRN BG <50 OR BG <70 & pt unresponsive Diphenhydramine HCl 50 mg 03/29/25 14:00 Diphenhydramine Inj 50 Mg/Ml Vial IVP 03/29/25 14:01 X1 ONE Glucagon 1 mg 03/14/25 17:36 Glucagon Inj 1 Mg Vial IM Q15MIN PRN BG <70, and no IV access Heparin Sodium (Porcine) 3,000 unit 03/19/25 13:33 03/25/25 11:37 Heparin Sod Inj 1000 Unit/Ml Vial 10 Ml INDWELLCAT 04/02/25 13:32 3,000 unit PRN PRN Administration DIALYSIS Heparin Sodium (Porcine) 5,000 unit 03/23/25 21:00 03/28/25 08:35 Heparin Sod Inj 5000 Unit/Ml Vial SC 04/06/25 20:59 Not Given Q12HR [place] Hydrocortisone Sodium Succinate 100 mg 03/29/25 14:00 Hydrocortisone Sod Succ Inj 100 Mg Vial IV 03/29/25 14:01 X1 ONE Hydromorphone HCl 0.25 mg 03/27/25 10:08 03/29/25 09:07 Hydromorphone Inj 2 Mg/Ml Vial IVP 04/01/25 08:44 0.25 mg Q6H PRN Administration SEVERE PAIN 7-10 Albumin Human 25 gm in 100 mls @ 100 mls/min 03/25/25 08:41 03/27/25 19:46 Albuminar-25 Ivpb IV Infused PRN PRN Infusion DIALYSIS Insulin Human Lispro 0 unit 03/22/25 11:30 03/29/25 09:02 Insulin Lispro (Admelog) 1 Unit/0.01 Ml Unit SC 04/21/25 11:29 Not Given ACHS [facility] Protocol Levalbuterol HCl 0.31 mg 03/28/25 10:24 Levalbuterol Rt 0.31 Mg/3 Ml Nebu INH 04/19/25 12:14 Q6HRRT PRN Wheezing Metoprolol Succinate 25 mg 03/22/25 09:00 03/29/25 09:07 Metoprolol Succinate Xl 25 Mg Tabcr PO 04/21/25 08:59 25 mg BID [place] Administration Midodrine 10 mg 03/19/25 18:19 Midodrine 5 Mg Tablet GT 04/18/25 21:59 TID PRN MAP below 65 Ondansetron HCl 4 mg 03/14/25 17:31 Ondansetron Inj 2 Mg/Ml Inj 2 Ml IV 04/13/25 17:30 Q6H PRN NAUSEA OR VOMITING Protocol Pantoprazole Sodium 40 mg 03/14/25 21:00 03/29/25 09:07 Pantoprazole Inj 40 Mg Vial IVP 04/13/25 20:59 40 mg BID [place] Administration Pharmacy Consult 1 each 03/27/25 08:44 Vancomycin Pharmacy To Dose 1 Each Each IV 04/23/25 16:59 QDAY PRN CONSULT Polyethylene Glycol 17 gm 03/26/25 18:00 03/29/25 09:08 Polyethylene Glycol 17 Gm Packet PO 04/25/25 17:59 Not Given QDAY [place] Pregabalin 50 mg 03/29/25 21:00 Pregabalin 25 Mg Capsule PO 04/28/25 20:59 BID [place] Sennosides 1 tab 03/26/25 18:00 03/29/25 09:07 Senna Tablet PO 04/25/25 17:59 1 tab QDAY [place] Administration Protocol Sodium Chloride 3 ml 03/17/25 19:00 03/29/25 05:04 Sodium Cl Rt Marjorie 3% 4 Ml Nebu (Non-Formulary) INH 04/16/25 18:59 Not Given Q6HRRT [place] Plan 49-year-old male with past medical history of DM2, hypertension, ESRD (HD ), HFpEF (EF 55% on 2021), and right BKA due to osteomyelitis was admitted to the ICU on 03/14/2025 for acute hypoxic respiratory failure, acute encephalopathy, and shock. He was extubated and downgraded to telemetry on 03/20/2025. #Staph Hemolyticus bacteremia #CLABSI Patient grew Staphylococcus hemolyticus from blood cultures on 03/21/2025 Repeat blood cultures on 03/14/2025 have been negative for the past 48 hours Repeat echo did not show any vegetations Central line and dialysis catheter removed 03/25/2025 New tunneled catheter placed 03/26/2025 No spikes in fever or WBC Plan: Continue Vancoymycin 03/23- 04/05 Consulted infectious disease, appreciate recommendations #A-fib with RVR, rate controlled #MAT #SVT Patient again went into SVT last night and was shocked again, but on repeat EKG showed to be in A-fib RVR. Patient again went into SVT and received adenosine 6mg x1 and adenosine 12mg x1 before being cardioverted. Repeat EKG showed what appears to be MAT. [id number] score of 3 points indicating 3.2% risk of stroke per year HAS-BLED score of 5 points Plan: Continue amiodarone 200mg BID Metoprolol succinate 25mg daily No anticoagulation until patient gets heart cath Keep Potassium >4 and Mg >2 Shredded Filler Machine Wrapper Layer consulted, appreciate recommendations #Possible acute vs chronic limb ischemia. #Peripheral Vascular disease, severe Abdomen CTA with runoff that showed occlusion of multiple arteries including the left radial, gluteal, and tibial arteries as well as 90% stenosis of the left superficial femoral artery Also showed 80% stenosis of right superficial femoral artery. Overnight ICU team spoke with vascular surgeon at [facility] who stated that at this time patient was not a candidate for transfer for revascularization. Patient understands that he may lose multiple digits and even his left lower foot. Most likely needs to follow-up with vascular surgeon as an outpatient. Plan: Nitroglycerin topical ointment. Will hold aspirin and Plavix [place] 7.5/325 q6h prn and Dilaudid 0.25mg q6h prn Pregabalin increase to 50mg BID Pt will need outpatient follow up with vascular surgeon #Acute hypoxic respiratory failure, improved. #Stenotrophomonas maltophilia pneumonia. #Respiratory acidosis, resolved. #Septic shock, resolved. Intubated on 03/14/2025. Sputum grew stenotrophomonas maltophilia. Extubated on 03/20/2025. Zosyn 03/14/2025-03/17/2025 Vancomycin 03/14/2025 - 03/15/2025. Discontinued levaquin 500mg q48hr 03/17/2025- 03/21 Plan: Continue hypertonic saline inhaled solution and chest physiotherapy. Patient will need to have a walk test prior to O2 delivery to home Midodrine 10mg TID as needed. #Troponinemia, resolved Troponins peaked at 7.899 and down trended to 7.04. Echo 03/16/2025 showed EF of 45 to 50% and septal dyskinesis. Echo on 03/23/2025 shows some improvement and left ventricle function with an EF of 50 to 55% Plan: Will continue holding aspirin and Plavix. Heart cath today Cardiology consulted, appreciate recommendations. #HFrEF (EF 50-55% on 2024). Echo on 03/16/2025 showed EF of 45 to 50% and septal dyskinesis. Echo on 03/23/2025 shows some improvement and left ventricle function with an EF of 50 to 55% Plan: Will continue with hemodialysis with fluid removal. Daily weights. Strict JENN's. fluid restriction. #ESRD (HD on ). #HAGMA, resolved. #Lactic acidosis, resolved. Patient was on hemodialysis and had AV fistula, but was clotted therefore cannot be used. Tunnedled dialysis cath placed 03/26/2025 Plan: Continue hemodialysis as scheduled. Family Nurse Practitioner Dr. Pleitez following, appreciate recommendations Avoid nephrotoxic agents. Renally dose medications. #Hematemesis. #Macrocytic anemia. #Thrombocytopenia. Patient's hemoglobin was downtrending from 11.9 on admission Hemoglobin 7.2 and platelets 156 No active signs of bleeding Plan: Continue to monitor daily CBC Transfuse if Hgb less than 7. #Transaminitis, improving #Hyperbilirubinemia, resolved #Hepatomegaly. Possible liver failure due to methamphetamine use? Could be due to shock liver versus hypoxia versus drug-induced. Hepatitis panel negative and abdominal ultrasound that shows some hepatomegaly with possible cirrhosis versus hepatocellular disease. Plan: Continue monitoring daily labs #Hx of DM2. ISS. Hypoglycemia protocol ordered. Hospital Maintenance: Disposition: Pending heart cath today, hold aspirin and plavix until then, patient will require SNF. Diet: renal diet DVT ppx: Heparin 5000 SC Q12H GI ppx: Protonix IV. Code status: DNR. Case disclosed with Attending Dr. Amrit Lee PGY1 Attending Provider Attestation/Addendum I reviewed labs, imaging, EKG, home medications and prior available records. Face to face evaluation was performed by me. I have personally examined the patient and discussed assessment and plan with the IM team. I reviewed the resident note and agree with the plan with exceptions as below. Acute encephalopathy, resolved Acute hypoxic respiratory failure, status post intubation, s/p extubation ESRD on hemodialysis HFrEF EF 45 to 50% Atrial fibrillation with controlled ventricular rhythm PAD Gangrene of toes and fingers, in the setting of severe PAD in the vasopressors Non-STEMI Clotting of dialysis fistula Leukocytosis, improved Transitioned to p.o. [place] for the PAD pain. Added pregabalin Continue IV vancomycin till 04/05 Remove temporary dialysis line. Status post permacath on 03/26 Outpatient follow-up with vascular surgery for the clotted fistula continue to monitor H&H Monitor H&H Continue amiodarone. Outpatient follow-up with cardiology to discuss anticoagulation Discussed with cardiology: Will plan for cardiac catheterization on 03/29 in addition to angiogram of leg Continue aspirin and Plavix Outpatient follow-up with vascular surgery Continue hemodialysis per nephrology recommendations PT recommended SNF. He is not on hospice. Accepted to [facility]. 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
--- NOTE | 2025-03-29 14:05 | ESPR_ITS ---
Documentation for date of: 03/29/25 Subjective Subjective Interval history: Mr. Mcclain is a 49-year-old male with past medical history of type 2 diabetes mellitus, hypertension, end-stage renal disease (HD ), HFpEF (EF 50 to 55% 02/2025) and right BKA due to osteomyelitis who was brought in by ambulance to [facility] emergency department on 03/14/2025 with a chief complaint of altered mental status. Patient was intubated secondary to inability to protect airway. On presentation patient's assisted with procuring history, per patient's patient had progressive shortness of breath and had change in mentation, patient was found to be in SVT when EMS arrived was shocked once and was converted to sinus rhythm. Patient also had to get additional sessions of hemodialysis due to increase in weight, last session of hemodialysis before admission to the hospital was on 12 March 2025. Patient also does have history of methamphetamine use, urine tox screen was positive for methamphetamine and marijuana on presentation. With the progression of hospital course patient was initially managed in the intensive care unit for acute hypoxic respiratory failure was found to have stenotrophomonas maltophilia pneumonia was treated with IV antibiotics, had significant lactic acidosis respiratory acidosis and high anion gap metabolic acidosis which improved in ICU patient did require CRRT and was eventually transition to hemodialysis, patient was eventually extubated on downgraded to telemetry on 03/20/2025. Patient's hospital stay is further complicated with possible acute versus chronic limb ischemia and underlying severe peripheral vascular disease, mechanical developer prover discussed case with vascular surgeon at [facility] during the hospitalization, patient was a poor candidate for revascularization per documentation. Patient started on amiodarone for underlying atrial fibrillation and eventually infectious disease consulted for Staph haemolyticus bacteremia possible CLABSI. Patient continue to receive inpatient hemodialysis. 03/25/2025: Patient successfully completed 3 hours 4 minutes of dialysis session today, postdialysis weight 115.9 kg was hypotensive at times during the dialysis, tolerated dialysis well through the temporary dialysis catheter. Net fluid removed 0.5 L. Blood pressure was soft, received 2 bags of albumin during the dialysis session.Patient will need permanent dialysis catheter placement, will be scheduled with interventional radiology in a.m. after holding aspirin and Plavix. Patient will be made n.p.o. after midnight by primary team. 03/26/2025: Patient seen and examined at bedside, patient had permanent tunneled dialysis catheter placed today. Currently complains of some back pain. Patient will continue to receive IV antibiotics until 04/05/2025 with hemodialysis. Otherwise patient is stable, has no current complaints. Anticipate discharge in next 24 hours on supplemental oxygen. 03/27/2025:Patient received dialysis treatment today, completed about 2 hours of dialysis session, about 1.1 L fluid removed, postdialysis weight 115 kg, was administered 100 mL albumin during the dialysis session for low blood pressure, patient did receive alteplase through the indwelling catheter x 1. Primary team discussed the case with patient and patient's family, patient has been requiring an extensive amount of IV pain medication, further plan by primary team is to discharge patient to residential facility and not on hospice as patient does not have underlying clear etiology for hospice. Patient's DAPT being held, cardiology following the case and patient may undergo angiogram heart, bilateral upper and lower extremities on Saturday. 03/28/2025: Patient continues to complain of pain, patient's gabapentin changed to pregabalin 25 twice daily and [place] was increased to 7.5 mg. Patient Aspirin and Plavix being held, patient going to undergo cardiac angiogram and angiogram upper and lower extremities likely in the morning. Will coordinate with cardiology. 03/29/2025: Labs and Vitals reviewed. Patient scheduled for Procedure with Cardiology Today, will plan for dialysis pot procedure after discussion with Cardiology Team, otherwise patient is stable, has no current complains. Pregabalin dose adjusted by primrary team. Exam Vital Signs Temp Pulse Resp BP Pulse Ox O2 Del Method O2 Flow Rate 97.3 F 88 20 149/81 H 92 L Oxy Mask 2 03/29/25 12:41 03/29/25 13:15 03/29/25 13:15 03/29/25 13:15 03/29/25 13:15 03/29/25 13:15 03/29/25 13:15 FiO2 30 03/28/25 08:00 Narrative Exam General: AO x 3, no acute distress Eyes: Pupils reactive to light, EOMI, vision intact Ears: No visible ear discharge Nose: No visible nasal discharge. Mouth/Throat: Moist mucous membranes, no redness, no lesions. Neck: Neck supple, no cervical lymphadenopathy. Lungs: Clear CHRISTIANO Cardio: Normal S1/S2, irregular, no murmurs, no JVD Abdomen: Soft, non-tender, no palpable masses, peristalsis present, no guarding or rebound Extremities: Right BKA with cyanotic changes at the stump still present and is tender, left foot demarcated purplish discoloration and necrotic changes in toes unchanged, right upper extremity 2nd and 3rd digits show necrotic changes at the tips. Skin: Right 2nd and 3rd upper extremity digits show necrotic changes at the tips with some bullae at the rest of the digit, Left foot discoloration and necrotic changes in toes. Neuro: No focal neurological deficits, motor and sensory intact. Objective Labs 03/29/25 05:28 03/29/25 05:28 Labs: Laboratory Results - last 24 hr 03/29/25 05:28 WBC 5.2 RBC 2.29 L Hgb 7.2 L Hct 23.9 L MCV 104 H MCH 31.4 MCHC 30.1 L RDW Std Deviation 63.3 H Plt Count 156 Neut % (Auto) 65 Lymph % (Auto) 14 [place] % (Auto) 19 H Eos % (Auto) 1 Baso % (Auto) 1 Neut # (Auto) 3.4 Lymph # (Auto) 0.7 L [place] # (Auto) 1.0 H Eos # (Auto) 0.1 Baso # (Auto) 0.0 Immature Gran # (Auto) 0.05 H Absolute Nucleated RBC 0.00 Immature Gran % 1 H Nucleated RBC % 0 PT 11.4 INR 1.0 APTT 26.2 Sodium 137 Potassium 4.5 Chloride 99 Carbon Dioxide 26.4 Anion Gap 12 BUN 59 H Creatinine 5.6 H* Estim Creat Clear Calc 20.4 L eGFR 12 L* BUN/Creatinine Ratio 11 L Glucose 104 Calculated Osmolality 290 Calcium 7.7 L Corrected Calcium 8.5 Magnesium 2.0 Total Bilirubin 0.6 AST 14 ALT 63 H Alkaline Phosphatase 123 H Total Protein 5.9 Albumin 3.0 L Globulin 2.9 Albumin/Globulin Ratio 1.0 L Random Vancomycin 15.0 ABG Interpretation ABG results: 03/14/25 03/14/25 03/14/25 14:44 16:44 18:53 ABG pH 7.03 L* 7.04 L* 7.10 L* ABG pCO2 43 50 H 46 ABG pO2 86 128 H D 57 L* D ABG HCO3 11 L 13 L 14 L ABG O2 Saturation 91 97 78 L ABG Base Excess -19 L -17 L -15 L VBG pH VBG pCO2 VBG pO2 VBG Base Excess 03/14/25 03/15/25 03/15/25 21:20 05:07 12:28 ABG pH 7.21 L D 7.41 D ABG pCO2 32 D 31 L ABG pO2 116 H D 74 L D ABG HCO3 13 L 20 ABG O2 Saturation 97 95 ABG Base Excess -14 L -4 L VBG pH 7.43 VBG pCO2 34 L VBG pO2 37 VBG Base Excess -1 03/16/25 03/16/25 03/16/25 04:51 11:48 19:30 ABG pH 7.46 H 7.22 L D 7.38 D ABG pCO2 29 L 66 H D 48 D ABG pO2 78 L 79 L 236 H D ABG HCO3 21 27 H 29 H ABG O2 Saturation 96 91 100 H ABG Base Excess -2 -2 3 VBG pH VBG pCO2 VBG pO2 VBG Base Excess 03/17/25 03/18/25 03/19/25 04:53 09:27 04:46 ABG pH 7.38 7.35 ABG pCO2 49 H 48 ABG pO2 78 L D 92 ABG HCO3 29 H 26 ABG O2 Saturation 95 98 ABG Base Excess 3 0 VBG pH 7.34 VBG pCO2 54 D VBG pO2 34 VBG Base Excess 2 03/24/25 22:00 ABG pH 7.33 L ABG pCO2 48 ABG pO2 233 H ABG HCO3 25 ABG O2 Saturation 101 H ABG Base Excess -1 VBG pH VBG pCO2 VBG pO2 VBG Base Excess Quality Measures Quality Measures VTE prophylaxis Assessment & Plan Assessment Current Active Medications: Generic Name Dose Route Start Last Admin Trade Name Freq PRN Reason Stop Dose Admin Acetaminophen 650 mg 03/20/25 11:35 03/21/25 06:39 Acetaminophen 325 Mg Tablet PO 04/19/25 11:34 650 mg Q6HR PRN Administration pain and Fever >100.4 Protocol Hydrocodone Bitart/Acetaminophen 1 tab 03/28/25 08:32 03/29/25 05:40 Hydrocodone/Apap 7.5/325 Tablet PO 04/02/25 08:31 1 tab Q6HR PRN Administration PAIN SCALE 4-6 (Moderate Amiodarone HCl 200 mg 03/19/25 21:00 03/29/25 09:06 Amiodarone Hcl 200 Mg Tablet GT 04/18/25 20:59 200 mg BID MONTSERRAT Administration Dextrose 25 ml 03/14/25 20:38 03/20/25 23:30 Dextrose 50%-Water Inj 50 Ml Syringe IV 04/13/25 20:37 25 ml Q15MIN PRN Administration BG 50-70 responsive npo pt Dextrose 50 ml 03/14/25 20:38 Dextrose 50%-Water Inj 50 Ml Syringe IV 04/13/25 20:37 Q15MIN PRN BG <50 OR BG <70 & pt unresponsive Glucagon 1 mg 03/14/25 17:36 Glucagon Inj 1 Mg Vial IM Q15MIN PRN BG <70, and no IV access Heparin Sodium (Porcine) 3,000 unit 03/19/25 13:33 03/25/25 11:37 Heparin Sod Inj 1000 Unit/Ml Vial 10 Ml INDWELLCAT 04/02/25 13:32 3,000 unit PRN PRN Administration DIALYSIS Heparin Sodium (Porcine) 5,000 unit 03/23/25 21:00 03/28/25 08:35 Heparin Sod Inj 5000 Unit/Ml Vial SC 04/06/25 20:59 Not Given Q12HR MONTSERRAT Hydromorphone HCl 0.25 mg 03/27/25 10:08 03/29/25 09:07 Hydromorphone Inj 2 Mg/Ml Vial IVP 04/01/25 08:44 0.25 mg Q6H PRN Administration SEVERE PAIN 7-10 Albumin Human 25 gm in 100 mls @ 100 mls/min 03/25/25 08:41 03/27/25 19:46 Albuminar-25 Ivpb IV Infused PRN PRN Infusion DIALYSIS Insulin Human Lispro 0 unit 03/22/25 11:30 03/29/25 09:02 Insulin Lispro (Admelog) 1 Unit/0.01 Ml Unit SC 04/21/25 11:29 Not Given ACHS [facility] Protocol Levalbuterol HCl 0.31 mg 03/28/25 10:24 Levalbuterol Rt 0.31 Mg/3 Ml Nebu INH 04/19/25 12:14 Q6HRRT PRN Wheezing Metoprolol Succinate 25 mg 03/22/25 09:00 03/29/25 09:07 Metoprolol Succinate Xl 25 Mg Tabcr PO 04/21/25 08:59 25 mg BID MONTSERRAT Administration Midodrine 10 mg 03/19/25 18:19 Midodrine 5 Mg Tablet GT 04/18/25 21:59 TID PRN MAP below 65 Ondansetron HCl 4 mg 03/14/25 17:31 Ondansetron Inj 2 Mg/Ml Inj 2 Ml IV 04/13/25 17:30 Q6H PRN NAUSEA OR VOMITING Protocol Pantoprazole Sodium 40 mg 03/14/25 21:00 03/29/25 09:07 Pantoprazole Inj 40 Mg Vial IVP 04/13/25 20:59 40 mg BID MONTSERRAT Administration Pharmacy Consult 1 each 03/27/25 08:44 Vancomycin Pharmacy To Dose 1 Each Each IV 04/23/25 16:59 QDAY PRN CONSULT Polyethylene Glycol 17 gm 03/26/25 18:00 03/29/25 09:08 Polyethylene Glycol 17 Gm Packet PO 04/25/25 17:59 Not Given QDAY MONTSERRAT Pregabalin 50 mg 03/29/25 21:00 Pregabalin 25 Mg Capsule PO 04/28/25 20:59 BID MONTSERRAT Sennosides 1 tab 03/26/25 18:00 03/29/25 09:07 Senna Tablet PO 04/25/25 17:59 1 tab QDAY MONTSERRAT Administration Protocol Sodium Chloride 3 ml 03/17/25 19:00 03/29/25 05:04 Sodium Cl Rt Marjorie 3% 4 Ml Nebu (Non-Formulary) INH 04/16/25 18:59 Not Given Q6HRRT [facility] Plan Assessment and Plan: Summary: Mr. Mcclain is a 49 years old male with PMH of DM2, hypertension, ESRD (HD ), HFpEF (EF 55% on 2021), and right BKA due to osteomyelitis BIBA to the ED due to AMS, was intubated and started on pressors and was admitted to the ICU on 03/14/2025 for management of shock of unknown etiology and was started on IV antibiotics. On 03/17 his sputum culture grew stenotrophomonas maltophilia and antibiotics were changed to levofloxacin. He was extubated and downgraded to telemetry on 03/20/2025 for continuation of care. # End-stage renal disease (HD on ). Patient received CRRT in intensive care unit, was transition to hemodialysis. Patient will need a line holiday and placement of due to underlying bacteremia. Primary team to hold aspirin and Plavix, catheter will be exchanged in a.m. possibly Patient received permanent tunneled dialysis catheter placement on 03/26/2025. 03/29/2025: Patient scheduled for Procedure with Cardiology Today, will plan for dialysis pot procedure after discussion with Cardiology Team, otherwise patient is stable, has no current complains. Pregabalin dose adjusted by primrary team. Plan: - Continue with hemodialysis inpatient - Avoid nephrotoxic agents. - Renally dose medications. #Staph Hemolyticus bacteremia #CLABSI Patient tested for gram-positive cocci (staph hymolyticus ) 2/ blood blood cultures on 03/21/2025 Patient currently has temporary dialysis catheter, aspirin and Plavix will be held Will be scheduled for permanent tunneled dialysis catheter placement in a.m. #Acute blood loss Anemia #Hematemesis. #Macrocytic anemia. #Thrombocytopenia. Hemoglobin 7.9, RBC 2.48, hematocrit 25%, MCV 101, platelets 131 today - Management as per primary team #HFrEF (EF 50-55% on 2024) #A-fib with RVR, rate controlled #Troponinemia - resolved Patient had improved ejection fraction compared to the echocardiogram from a week ago, cardiology is consulted. Patient is on amiodarone for atrial fibrillation. - Management as per primary team #Possible acute vs chronic limb ischemia. #Peripheral Vascular disease, severe Patient has severe vascular disease, case was discussed by ICU team with a vascular surgeon at [facility] Patient is poor candidate for surgery per documentation -Patient was referred to hospice by primary team #Acute hypoxic respiratory failure, improved. #Stenotrophomonas maltophilia pneumonia. #Respiratory acidosis, resolved. #Septic shock, resolved. - Management as per primary team #Transaminitis. #Hyperbilirubinemia #Hepatomegaly. #Hx of DM2. #Hypoglycemia, resolved. -Management per primary team Case discussed with Attending Dr. Wilson. Marycarmen Clark PGY1 Disclaimer: This note was dictated by speech recognition. Minor errors in dispensing optician may be present due to voice recognition software. Attending Provider Attestation/Addendum Labs are reviewed. seen and examined.agree with assessmsnt and plan and findings by resident. Héctor wilson MD
--- NOTE | 2025-03-29 14:26 | ESOP_ITS ---
RE: CLEMENTE PERAZA : 1975 DATE OF OPERATION: 03/29/2025 PROCEDURES PERFORMED: 1. Diagnostic left heart cardiac catheterization, selective coronary angiogram, and left ventricular angiogram, CPT 20579. 2. Conscious sedation, 1-hour duration. 3. Ultrasound-guided access, right femoral artery. 4. Catheter replacement, right brachial artery, second order branch from aorta and right upper extremity angiogram. 5. Selective catheterization, contralateral left common femoral artery, left iliac and femoral angiogram. [id number] 6. Selective catheter placement in the left distal superficial femoral artery, third diagonal branch contralateral, CPT code 56859. 7. Left lower extremity angiogram. 8. Catheter placement in right common iliac artery and right lower extremity angiogram. DIAGNOSIS: Gangrene of right upper extremity, left lower extremity peripheral arterial disease, and acute non-ST segment elevation myocardial infarction. HISTORY AND INDICATIONS: The patient is a 49-year-old unfortunate male with multiple medical problems, history of amputation of right lower extremity. He came to the hospital with cardiogenic shock, septic shock initially more than 2 weeks ago. He has developed gangrene of the right upper extremity and left lower extremity. CTA showed evidence of peripheral artery disease. The patient also found to have acute myocardial infarction. Troponin was significantly elevated with cardiogenic shock initially. After treatment, the patient's condition improved. He also developed GPC bacteremia. The patient has chronic kidney disease, now hemodialysis stage V kidney disease. Because of persistent chest pain, shortness of breath, and also gangrenous changes of right upper extremity and left lower extremity, selective coronary angiogram, cardiac catheterization was recommended as well as right upper extremity and left lower extremity angiogram recommended to assess if the patient is a candidate for revascularization. DESCRIPTION OF PROCEDURE : The patient was brought to cardiac catheterization laboratory. He was given 2 mg of Versed and 100 mcg of fentanyl for conscious sedation. Right femoral approach was taken. Right femoral artery cannulated by micropuncture technique and 5-Mohawk sheath was introduced. Selective right and left coronary angiogram performed by Radha technique and multiple views were obtained. Left heart catheterization and left ventricular angiogram performed with FR4 diagnostic catheter. Subsequently, FR4 diagnostic catheter was placed in right brachial artery and right upper extremity angiogram was performed. Digital subtraction method was performed and performed angiogram of the radial and distal vessels in the hand. Subsequently, the catheter was advanced into the contralateral femoral artery, contralateral common iliac artery, and iliofemoral angiogram performed subsequently. Catheter was advanced further into the superficial femoral and distal segment. Left lower extremity [id number] angiogram was also performed. The catheter was pulled back to right common iliac artery and right lower extremity angiogram was performed. The patient tolerated the procedure well with no complications. Cardiac catheterization showed following findings: HEMODYNAMICS: Left ventricular pressure 110 systolic and diastolic is 5. End diastolic pressure is 28 mmHg. Aortic pressure is 110/78. No gradient across the aortic valve. Left ventricular angiogram showed evidence of mild global hypokinesis. Ejection fraction of 50%. Coronary artery angiogram showed following findings: Right coronary artery is large and dominant_gives PDA posterolateral branch normal. Left coronary system. Left main coronary artery is normal. Left anterior descending artery is normal. Circumflex artery is normal. Right upper extremity angiogram showed the following: Right subclavian artery and axillary artery is normal. Right brachial artery is normal. Radial artery is widely patent and fills the arch well Feeding of all 5 digits with excellent flow. Right Ulnar artery is totally occluded or absent. Left lower extremity angiogram showed following findings: Both common iliac arteries are normal. The left femoral artery, superficial femoral artery, profunda femoris is normal. Popliteal artery, tibioperoneal trunk is normal. Anterior and posterior tibial arteries normal. Three-vessel runoff is seen all the way to the foot with no obstructive lesions. Right lower extremity angiogram showed evidence of normal common femoral artery. Superficial femoral artery is normal and the patient has amputation. Trifurcation is seen and appears normal. Distal Anterior tibial showed modertate 50% stenosis at the ankle level. Left Dorsalis pedis is occluded mid segment. Left Posterior tibial artery fills well. SUMMARY OF FINDINGS AND SUGGESTIONS: 1. Normal, nonobstructive epicardial coronary arteries. 2. Mild left ventricular dysfunction, ejection fraction 50%. 3. Right ulnarl artery totally occluded with excellent flow from the radial artery. 4. Left lower extremity angiogram showed widely patent SFA and trifurcation with distal dorsalis pedis 100% occlusion. 5. Right lower extremity angiogram also showed no significant obstructive lesions until trifurcation( amputated BKA) RECOMMENDATIONS: The patient is reassured that no significant obstructive CAD, preserved ejection fraction, and also no evidence of any obstructive stenosis of the lower extremity on the left side except dorsalis pedis occluded 100% very distally Right upper extremity angiogram only showed ulnar artery occlusion The patient is recommended to be managed medically. NO LAST MARKER or stents He will require amputation of the digits since he has significant gangrenous changes, but no revascularization lesions are visualized. He also needs left foot amputation or BKA DT: 12:58:12 TT: 13:32:00 Ref: [id number] - TID: [id number] [facility]
--- NOTE | 2025-03-29 14:47 | PC.NURSE ---
1325 patient is awake, alert, breathing unlabored, s/p LHC , dressing to right groin dry with no bleeding or hematoma. report received from Kiran LENZ, arterial sheath to right groin was removed at 1250, hemostasis obtained 1310, ok to discharge patient back to room 265 at 1510, 2 hrs post hemostatis time. aspirin an plavix to be resumed at hospitalist discretion since it was on hold prior to procedure.
--- NOTE | 2025-03-29 15:06 | PC.SS ---
SS contacted patient's , Sophia and she reported she will meet with patient and discuss facility of choice. SS informed her that patient is pending PT eval and once it's completed will need to know what facility they would like in order to submit for auth. SS will stand by for further needs.
--- NOTE | 2025-03-29 15:25 | PC.NURSE ---
1525 patient is awake alert, breathing unlabored, dressing to right groin dry with no bleeding or hematoma, report given to Joie LENZ, patietn transferred back to room 265 with tele box.
--- NOTE | 2025-03-29 15:38 | PC.PT ---
Patient was approached at 15:29 for PT eval. Patient was just returning to his room from the cytology laboratory manager and per RN needed to lay flat for another 2 hours with no movement. PT will attempt to see patient at another time for PT eval.
--- NOTE | 2025-03-29 19:02 | ESPR_ITS ---
<Statement entered by Yanci Villalobos MD - 03/30/25 19:50> I personally examined the patient evaluated who had a coronary angiogram peripheral angiogram upper and lower extremity angiogram showed surprisingly minimal disease is only dorsalis pedis occlusion distally in the left foot but the blood flow is good all the way to the feet on the left side. Right lower extremity angiogram also showed trifurcation is patent right upper extremity angiogram showed occlusion of the ulnar artery possibly chronic or a small artery not present right radial artery is dominant and giving extensive network palmar arch is excellent. Patient clearly has gangrenous left foot will require amputation no revascularization can be done since the most of the disease in the foot is distal. Right hand also appears to have possible with phalanges which may require some amputation but flow is excellent may not require any further than phalangeal amputation later on. Evaluate the patient with resident physician will continue to monitor the patient Documentation for date of: 03/29/25 Subjective Subjective Interval history: Patient was seen and examined at the bedside, no overnight events. He underwent angiography today which did not show significant arterial disease. Recommended to discontinue aspirin, plavix, statin. Recommended to start on Eliquis 2.5 mg BID. Follow up with general surgery as patient might need left foot/toes and bilateral fingers amputation. Exam Vital Signs Temp Pulse Resp BP Pulse Ox O2 Del Method O2 Flow Rate 97.1 F 89 16 121/85 H 100 Nasal Cannula 2 03/29/25 16:00 03/29/25 16:00 03/29/25 16:00 03/29/25 16:00 03/29/25 16:00 03/29/25 16:00 03/29/25 16:00 FiO2 93 03/29/25 10:27 Narrative Exam Gen: Well-developed male not in distress. HEENT: NCAT, PERRLA, EOMI, MMM, anicteric conjunctivae. CVS: normal S1 and S2. RRR. No M/R/G. Resp: CTA B/L. No rhonchi, rales, crackles or wheezing. Abd: soft, non-tender, non-distended. BS+ in all 4 quadrants. Bilateral flank pitting edema. MSK: S/p right BKA, stump appears necrotic, right thigh has blister. Left foot is purplish discoloration, significantly swollen, necrotic changes in toes. 3+ pitting edema LLE. Dry gangrene over right 2nd and 3rd digits. Tip of left second digit appears necrotic. Neuro: CN II-XII grossly intact. Alert and oriented x3. Psych: appropriate mood and affect. Objective Labs 03/29/25 05:28 03/29/25 05:28 Labs: Laboratory Results - last 24 hr 03/29/25 05:28 WBC 5.2 RBC 2.29 L Hgb 7.2 L Hct 23.9 L MCV 104 H MCH 31.4 MCHC 30.1 L RDW Std Deviation 63.3 H Plt Count 156 Neut % (Auto) 65 Lymph % (Auto) 14 [place]gett % (Auto) 19 H Eos % (Auto) 1 Baso % (Auto) 1 Neut # (Auto) 3.4 Lymph # (Auto) 0.7 L [place]gett # (Auto) 1.0 H Eos # (Auto) 0.1 Baso # (Auto) 0.0 Immature Gran # (Auto) 0.05 H Absolute Nucleated RBC 0.00 Immature Gran % 1 H Nucleated RBC % 0 PT 11.4 INR 1.0 APTT 26.2 Sodium 137 Potassium 4.5 Chloride 99 Carbon Dioxide 26.4 Anion Gap 12 BUN 59 H Creatinine 5.6 H* Estim Creat Clear Calc 20.4 L eGFR 12 L* BUN/Creatinine Ratio 11 L Glucose 104 Calculated Osmolality 290 Calcium 7.7 L Corrected Calcium 8.5 Magnesium 2.0 Total Bilirubin 0.6 AST 14 ALT 63 H Alkaline Phosphatase 123 H Total Protein 5.9 Albumin 3.0 L Globulin 2.9 Albumin/Globulin Ratio 1.0 L Random Vancomycin 15.0 ABG Interpretation ABG results: 03/14/25 03/14/25 03/14/25 14:44 16:44 18:53 ABG pH 7.03 L* 7.04 L* 7.10 L* ABG pCO2 43 50 H 46 ABG pO2 86 128 H D 57 L* D ABG HCO3 11 L 13 L 14 L ABG O2 Saturation 91 97 78 L ABG Base Excess -19 L -17 L -15 L VBG pH VBG pCO2 VBG pO2 VBG Base Excess 03/14/25 03/15/25 03/15/25 21:20 05:07 12:28 ABG pH 7.21 L D 7.41 D ABG pCO2 32 D 31 L ABG pO2 116 H D 74 L D ABG HCO3 13 L 20 ABG O2 Saturation 97 95 ABG Base Excess -14 L -4 L VBG pH 7.43 VBG pCO2 34 L VBG pO2 37 VBG Base Excess -1 03/16/25 03/16/25 03/16/25 04:51 11:48 19:30 ABG pH 7.46 H 7.22 L D 7.38 D ABG pCO2 29 L 66 H D 48 D ABG pO2 78 L 79 L 236 H D ABG HCO3 21 27 H 29 H ABG O2 Saturation 96 91 100 H ABG Base Excess -2 -2 3 VBG pH VBG pCO2 VBG pO2 VBG Base Excess 03/17/25 03/18/25 03/19/25 04:53 09:27 04:46 ABG pH 7.38 7.35 ABG pCO2 49 H 48 ABG pO2 78 L D 92 ABG HCO3 29 H 26 ABG O2 Saturation 95 98 ABG Base Excess 3 0 VBG pH 7.34 VBG pCO2 54 D VBG pO2 34 VBG Base Excess 2 03/24/25 22:00 ABG pH 7.33 L ABG pCO2 48 ABG pO2 233 H ABG HCO3 25 ABG O2 Saturation 101 H ABG Base Excess -1 VBG pH VBG pCO2 VBG pO2 VBG Base Excess Quality Measures Quality Measures VTE prophylaxis Assessment & Plan Assessment Current Active Medications: Generic Name Dose Route Start Last Admin Trade Name Freq PRN Reason Stop Dose Admin Acetaminophen 650 mg 03/20/25 11:35 03/21/25 06:39 Acetaminophen 325 Mg Tablet PO 04/19/25 11:34 650 mg Q6HR PRN Administration pain and Fever >100.4 Protocol Hydrocodone Bitart/Acetaminophen 1 tab 03/28/25 08:32 03/29/25 05:40 Hydrocodone/Apap 7.5/325 Tablet PO 04/02/25 08:31 1 tab Q6HR PRN Administration PAIN SCALE 4-6 (Moderate Amiodarone HCl 200 mg 03/19/25 21:00 03/29/25 09:06 Amiodarone Hcl 200 Mg Tablet GT 04/18/25 20:59 200 mg BID [place] Administration Dextrose 25 ml 03/14/25 20:38 03/20/25 23:30 Dextrose 50%-Water Inj 50 Ml Syringe IV 04/13/25 20:37 25 ml Q15MIN PRN Administration BG 50-70 responsive npo pt Dextrose 50 ml 03/14/25 20:38 Dextrose 50%-Water Inj 50 Ml Syringe IV 04/13/25 20:37 Q15MIN PRN BG <50 OR BG <70 & pt unresponsive Glucagon 1 mg 03/14/25 17:36 Glucagon Inj 1 Mg Vial IM Q15MIN PRN BG <70, and no IV access Heparin Sodium (Porcine) 3,000 unit 03/19/25 13:33 03/25/25 11:37 Heparin Sod Inj 1000 Unit/Ml Vial 10 Ml INDWELLCAT 04/02/25 13:32 3,000 unit PRN PRN Administration DIALYSIS Heparin Sodium (Porcine) 5,000 unit 03/23/25 21:00 03/28/25 08:35 Heparin Sod Inj 5000 Unit/Ml Vial SC 04/06/25 20:59 Not Given Q12HR [place] Hydromorphone HCl 0.25 mg 03/27/25 10:08 03/29/25 15:50 Hydromorphone Inj 2 Mg/Ml Vial IVP 04/01/25 08:44 0.25 mg Q6H PRN Administration SEVERE PAIN 7-10 Albumin Human 25 gm in 100 mls @ 100 mls/min 03/25/25 08:41 03/27/25 19:46 Albuminar-25 Ivpb IV Infused PRN PRN Infusion DIALYSIS Insulin Human Lispro 0 unit 03/22/25 11:30 03/29/25 17:44 Insulin Lispro (Admelog) 1 Unit/0.01 Ml Unit SC 04/21/25 11:29 Not Given ACHS [facility] Protocol Levalbuterol HCl 0.31 mg 03/28/25 10:24 Levalbuterol Rt 0.31 Mg/3 Ml Nebu INH 04/19/25 12:14 Q6HRRT PRN Wheezing Metoprolol Succinate 25 mg 03/22/25 09:00 03/29/25 09:07 Metoprolol Succinate Xl 25 Mg Tabcr PO 04/21/25 08:59 25 mg BID [place] Administration Midodrine 10 mg 03/19/25 18:19 Midodrine 5 Mg Tablet GT 04/18/25 21:59 TID PRN MAP below 65 Ondansetron HCl 4 mg 03/14/25 17:31 Ondansetron Inj 2 Mg/Ml Inj 2 Ml IV 04/13/25 17:30 Q6H PRN NAUSEA OR VOMITING Protocol Pantoprazole Sodium 40 mg 03/14/25 21:00 03/29/25 09:07 Pantoprazole Inj 40 Mg Vial IVP 04/13/25 20:59 40 mg BID [place] Administration Pharmacy Consult 1 each 03/27/25 08:44 Vancomycin Pharmacy To Dose 1 Each Each IV 04/23/25 16:59 QDAY PRN CONSULT Polyethylene Glycol 17 gm 03/26/25 18:00 03/29/25 09:08 Polyethylene Glycol 17 Gm Packet PO 04/25/25 17:59 Not Given QDAY [place] Pregabalin 50 mg 03/29/25 21:00 Pregabalin 25 Mg Capsule PO 04/28/25 20:59 BID [place] Sennosides 1 tab 03/26/25 18:00 03/29/25 09:07 Senna Tablet PO 04/25/25 17:59 1 tab QDAY [facility] Administration Protocol Sodium Chloride 3 ml 03/17/25 19:00 03/29/25 05:04 Sodium Cl Rt Marjorie 3% 4 Ml Nebu (Non-Formulary) INH 04/16/25 18:59 Not Given Q6HRRT [place] Plan 49-year-old male with past medical history of DM2, hypertension, ESRD (HD ), HFpEF (EF 55% on 2021), and right BKA due to osteomyelitis was initially admitted to the ICU on 03/14/2025 for acute hypoxic respiratory failure, acute encephalopathy, and shock. He was subsequently extubated and downgraded to telemetry on 03/20/2025 for continuation of care. #Status post acute non-ST segment elevation myocardial infarction, NSTEMI possible type 2 troponin versus NSTEMI. #SVT episodes. #Afib, rate controlled. #Decompensated HFpEF (EF 45-50%). Patient s/p intubation and pressor support in ICU for shock, distributive secondary to sepsis versus cardiogenic. Patient initially presented to ED in SVT and required shock x1. Troponin initially 1.856 uptrended to 7.899 peak. Patient was treated for pneumonia. Patient was able to wean off pressors, extubated, now downgraded to tele. CT LER showed diffuse stenosis on the arteries of the LLE, occlusions in almost all major arteries. Echo done on 03/16/2025 showed LV appears normal with EF 45-50%. Septal dyskinesis is seen, RV appears normal with RVSP 50 mmHg. Mildly dilated LA & RA Mild mitral regurgitation Mild-Moderate TR. 03/21, patient had 2 rapid response events for SVT in the 170-200s which self converted in minutes. Plan: -Continue amiodarone 200 mg BID. -discontinue metoprolol succinate 25 mg BID and start diltiazem Cd 120 mg daily. -Maintain K >4.0 and Mag >2.0. -Continue dialysis per Nephro. #Extensive atherosclerotic cardiovascular disease with bilateral femoral artery occlusions and distal trifurcation disease with gangrenous changes, ruled out. #Vasopressor-induced vasoconstriction and gangrene, sequelae. -Patient has history of right extremity BKA due to severe PAD. This admission after severe shock requiring pressor support patient subsequently developed ischemia of the right and left fingertips. Vascular surgeon stated that the patient is not a candidate at this time for revascularization, however stated that would discuss case with general surgeon. Likely upper extremity digits affected by vasopressor support in combination with severe PAD causing limb ischemia. -Angiography showed Normal, nonobstructive epicardial coronary arteries. Mild left ventricular dysfunction, ejection fraction 50%. Right ulnarl artery totally occluded with excellent flow from the radial artery. Left lower extremity angiogram showed widely patent SFA and trifurcation with distal dorsalis pedis 100% occlusion. Right lower extremity angiogram also showed no significant obstructive lesions until trifurcation( amputated BKA). Plan: -discontinue aspirin, plavix and statin. -follow up with general surgery regarding amputation. -start on Eliquis 2.5 mg BID after surgery. -cardiology cleared for amputation. -Continue antibiotics for now. #GPC bacteremia. #Leukocytosis. #Staph hemolyticus bacteremia. Patient tested for gram-positive cocci 2/2 blood cultures on 03/21/2025, first positive blood cultures this admission. Patient has not been febrile, however has had persistent leukocytosis. Patient subsequently getting all lines removed after receiving dialysis. -Repeat echo on 03/23- Aortic valve leaflets with sclerosis calcification thickening of the cusp but no stenosis. No evidence of vegetation detected. Mitral valve annular show mild calcification mitral leaflets with thickening regurgitations.Left atrium appears to be mildly dilated.Left ventricle is normal with evidence of mild anteroseptal hypokinesis with well-preserved ejection fraction of 50 to 55%. Right heart structures normal. Mild tricuspid regurgitation with no evidence of pulmonary hypertension normal PA pressures. Tricuspid and pulmonic valves appear normal no vegetations. Compared to the study a week ago no change except some improvement in LV function. Plan: -Repeat blood cultures is negative. -Continue vancomycin IV as per ID recs. -he got a new dialysis catheter. #Hypotension- resolved. S/p shock weaned off pressors, multifactorial likely distributive and some component cardiogenic. Plan: -Continue midodrine 10 mg TID as needed. Rest of conditions to continue current management per primary team: #Acute hypoxic respiratory failure #Community-acquired pneumonia, Stenotrophomonas maltophilia #ESRD (HD on ) #History of type 2 diabetes #Respiratory acidosis, resolved #HAGMA, resolved #Lactic acidosis, resolved #Hyperkalemia, resolved #Shock liver, resolved #Possible GI bleed #Macrocytic anemia #Thrombocytopenia #Hematemesis, resolved #Hypoglycemia, resolved Discussed the patient with my attending Dr Villalobos. Minh Smith MD, PGY 2. Disclaimer: This note was dictated by speech recognition. Minor errors in component assembler may be present due to voice recognition software.
--- NOTE | 2025-03-29 22:00 | PC.NURSE ---
OXYGEN SATS IN 60'S. UPON ENTERING ROOM, NASAL CANNULA NOT SECURED TO FACE. PLACED NC BACK ON, CONTINUED AT 2L. OXYGEN LEVELS BACK UP TO 95%
[2025-03-29] MEDS: PREGABALIN 25 MG CAPSULE 50 MG PO (22:02)
[2025-03-30] VITALS (28 sets, daily range): BP systolic 99–122; BP diastolic 52–75; PULSE 86–92; RESP 12–21; TEMP 36.2–36.9; O2SAT 93–100; BMI 34.1; BMI 13.0
--- NOTE | 2025-03-30 01:10 | PC.NURSE ---
DR. REYNOLDS MADE AWARE OF RIGHT GROIN, SORE PER PT 4/10, FIRMNESS NOTED ON PALPATION. DRESSING CONTINUES TO BE CDI, NO BRUISING NOTED. + RIGHT POPLITEAL PULSE WITH DOPPLER. NO NEW ORDERS GIVEN.
[2025-03-30] MEDS: ONDANSETRON INJ 2 MG/ML INJ 2 ML 4 MG IV (01:39)
[2025-03-30] MEDS: HYDROcodone/APAP 7.5/325 TABLET 1 TAB PO ×3 (01:42→21:02)
[2025-03-30] MEDS: SODIUM CL RT SOL 3% 4 ML NEBU (NON-FORMULARY) 3 ML INH ×4 (02:25→19:15)
[2025-03-30 06:20] LABS: Basophils % (Auto) 1 % (0-2.5); Eosinophils # (Auto) 0.1 Thou/mm3 (0.0-0.5); Eosinophils % (Auto) 1 % (0-10); Immature Granulocytes % (Auto) 1 % (0-0); Immature Granulocytes Auto 0.06 Thou/mm3 (0.00-0.00); Lymphocytes # (Auto) 0.7 Thou/mm3 (1.0-4.8); Lymphocytes % (Auto) 12 % (10-50); Mean Corpuscular HGB Conc 30.4 g/dl (31.0-37.0); Mean Corpuscular Hemoglobin 31.9 pg (25.0-35.0); Mean Corpuscular Volume 105 fL (80-100); Monocytes # (Auto) 0.9 Thou/mm3 (0.0-0.8); Monocytes % (Auto) 16 % (0-12); Neutrophils # (Auto) 3.8 Thou/mm3 (1.8-7.7); Neutrophils % (Auto) 69 % (37-80); Nucleated Red Blood Cell % 0 /100 WBC (0); Platelet Count 155 Thou/mm3 (140-440); RDW Standard Deviation 62.4 fL (35.1-43.9); Red Blood Count 2.29 Miln/mm3 (4.50-5.90); White Blood Count 5.5 Thou/mm3 (3.8-10.6)
[2025-03-30 06:24] LABS: Hemoglobin 7.3 g/dL (13.5-16.0)
[2025-03-30 06:40] LABS: Alanine Aminotransferase 58 U/L (10-49); Albumin, Serum 3.1 gm/dL (3.5-5.0); Alkaline Phosphatase 122 U/L (46-116); Anion Gap 13 (7-16); Aspartate Amino Transferase 17 U/L (0-34); BUN/Creatinine Ratio 10 Ratio (12-20); Bilirubin,Total 0.4 mg/dL (0.3-1.2); Blood Urea Nitrogen 69 mg/dL (9-23); Calcium 7.9 mg/dL (8.3-10.6); Calcium (Corrected) 8.6 mg/dL (8.5-10.1); Carbon Dioxide 24.5 mMol/L (20.0-31.0); Chloride 99 mMol/L (98-107); Creatinine (Component) 6.6 mg/dL (0.6-1.3); Estimated Creatinine Clearance 17.3 mL/min (>60); Glucose 112 mg/dL (74-106); Magnesium 2.2 mg/dL (1.6-2.6); Osmolality,Calculated 293 (275-295); Potassium 5.4 mMol/L (3.4-5.1); Sodium 136 mMol/L (136-145); Total Protein 6.1 gm/dL (5.7-8.2); eGFR 9 See Note
[2025-03-30] MEDS: HYDROmorphone INJ 2 MG/ML VIAL 0.25 MG IVP ×2 (06:55→14:08)
[2025-03-30] MEDS: LEVALBUTEROL RT 0.31 MG/3 ML NEBU INH ×3 (07:00→19:15)
--- NOTE | 2025-03-30 07:51 | ESPR_ITS ---
<Statement entered by Yanci Villalobos MD - 03/30/25 19:53> I personally examined the patient evaluated who had a coronary angiogram peripheral angiogram upper and lower extremity angiogram showed surprisingly minimal disease is only dorsalis pedis occlusion distally in the left foot but the blood flow is good all the way to the feet on the left side. Right lower extremity angiogram also showed trifurcation is patent right upper extremity angiogram showed occlusion of the ulnar artery possibly chronic or a small artery not present right radial artery is dominant and giving extensive network palmar arch is excellent. Patient clearly has gangrenous left foot will require amputation no revascularization can be done since the most of the disease in the foot is distal. Right hand also appears to have possible with phalanges which may require some amputation but flow is excellent may not require any further than phalangeal amputation later on. Evaluate the patient with resident physician will continue to monitor the patient I have given cardiac clearance for surgery based on today's examination General Surgery consultation is pending Documentation for date of: 03/30/25 Subjective Subjective Interval history: Patient was seen and examined at the bedside, no overnight events. He does not have any new complains. EJ was removed due to dislocation, new peripheral line was placed. Pending general surgery reevaluation for possible left foot/toes amputation. Hold Eliquis until surgeon's decision. Exam Vital Signs Temp Pulse Resp BP Pulse Ox O2 Del Method O2 Flow Rate 97.4 F 87 16 100/68 100 Nasal Cannula 2 03/30/25 04:00 03/30/25 07:01 03/30/25 07:01 03/30/25 04:00 03/30/25 07:01 03/30/25 04:00 03/30/25 07:01 FiO2 93 03/29/25 10:27 Narrative Exam Gen: Well-developed male not in distress. HEENT: NCAT, PERRLA, EOMI, MMM, anicteric conjunctivae. CVS: normal S1 and S2. RRR. No M/R/G. Resp: CTA B/L. No rhonchi, rales, crackles or wheezing. Abd: soft, non-tender, non-distended. BS+ in all 4 quadrants. Bilateral flank pitting edema. MSK: S/p right BKA, stump appears necrotic, right thigh has blister. Left foot is purplish discoloration, significantly swollen, necrotic changes in toes. 3+ pitting edema LLE. Dry gangrene over right 2nd and 3rd digits. Tip of left second digit appears necrotic. Neuro: CN II-XII grossly intact. Alert and oriented x3. Psych: appropriate mood and affect. Objective Labs 03/30/25 05:40 03/30/25 05:40 Labs: Laboratory Results - last 24 hr 03/29/25 03/30/25 05:28 05:40 WBC 5.5 RBC 2.29 L Hgb 7.3 L Hct 24.0 L MCV 105 H MCH 31.9 MCHC 30.4 L RDW Std Deviation 62.4 H Plt Count 155 Neut % (Auto) 69 Lymph % (Auto) 12 [place] % (Auto) 16 H Eos % (Auto) 1 Baso % (Auto) 1 Neut # (Auto) 3.8 Lymph # (Auto) 0.7 L [place] # (Auto) 0.9 H Eos # (Auto) 0.1 Baso # (Auto) 0.0 Immature Gran # (Auto) 0.06 H Absolute Nucleated RBC 0.00 Immature Gran % 1 H Nucleated RBC % 0 PT 11.4 INR 1.0 APTT 26.2 Sodium 136 Potassium 5.4 H D Chloride 99 Carbon Dioxide 24.5 Anion Gap 13 BUN 69 H Creatinine 6.6 H* D Estim Creat Clear Calc 17.3 L eGFR 9 L* BUN/Creatinine Ratio 10 L Glucose 112 H Calculated Osmolality 293 Calcium 7.9 L Corrected Calcium 8.6 Magnesium 2.2 Total Bilirubin 0.4 AST 17 ALT 58 H Alkaline Phosphatase 122 H Total Protein 6.1 Albumin 3.1 L Globulin 3.0 Albumin/Globulin Ratio 1.0 L Random Vancomycin 14.0 ABG Interpretation ABG results: 03/14/25 03/14/25 03/14/25 14:44 16:44 18:53 ABG pH 7.03 L* 7.04 L* 7.10 L* ABG pCO2 43 50 H 46 ABG pO2 86 128 H D 57 L* D ABG HCO3 11 L 13 L 14 L ABG O2 Saturation 91 97 78 L ABG Base Excess -19 L -17 L -15 L VBG pH VBG pCO2 VBG pO2 VBG Base Excess 03/14/25 03/15/25 03/15/25 21:20 05:07 12:28 ABG pH 7.21 L D 7.41 D ABG pCO2 32 D 31 L ABG pO2 116 H D 74 L D ABG HCO3 13 L 20 ABG O2 Saturation 97 95 ABG Base Excess -14 L -4 L VBG pH 7.43 VBG pCO2 34 L VBG pO2 37 VBG Base Excess -1 03/16/25 03/16/25 03/16/25 04:51 11:48 19:30 ABG pH 7.46 H 7.22 L D 7.38 D ABG pCO2 29 L 66 H D 48 D ABG pO2 78 L 79 L 236 H D ABG HCO3 21 27 H 29 H ABG O2 Saturation 96 91 100 H ABG Base Excess -2 -2 3 VBG pH VBG pCO2 VBG pO2 VBG Base Excess 03/17/25 03/18/25 03/19/25 04:53 09:27 04:46 ABG pH 7.38 7.35 ABG pCO2 49 H 48 ABG pO2 78 L D 92 ABG HCO3 29 H 26 ABG O2 Saturation 95 98 ABG Base Excess 3 0 VBG pH 7.34 VBG pCO2 54 D VBG pO2 34 VBG Base Excess 2 03/24/25 22:00 ABG pH 7.33 L ABG pCO2 48 ABG pO2 233 H ABG HCO3 25 ABG O2 Saturation 101 H ABG Base Excess -1 VBG pH VBG pCO2 VBG pO2 VBG Base Excess Quality Measures Quality Measures VTE prophylaxis Assessment & Plan Assessment Current Active Medications: Generic Name Dose Route Start Last Admin Trade Name Bandarq PRN Reason Stop Dose Admin Acetaminophen 650 mg 03/20/25 11:35 03/21/25 06:39 Acetaminophen 325 Mg Tablet PO 04/19/25 11:34 650 mg Q6HR PRN Administration pain and Fever >100.4 Protocol Hydrocodone Bitart/Acetaminophen 1 tab 03/28/25 08:32 03/30/25 01:42 Hydrocodone/Apap 7.5/325 Tablet PO 04/02/25 08:31 1 tab Q6HR PRN Administration PAIN SCALE 4-6 (Moderate Amiodarone HCl 200 mg 03/19/25 21:00 03/29/25 22:02 Amiodarone Hcl 200 Mg Tablet GT 04/18/25 20:59 200 mg BID MON[place]ERRAT Administration Dextrose 25 ml 03/14/25 20:38 03/20/25 23:30 Dextrose 50%-Water Inj 50 Ml Syringe IV 04/13/25 20:37 25 ml Q15MIN PRN Administration BG 50-70 responsive npo pt Dextrose 50 ml 03/14/25 20:38 Dextrose 50%-Water Inj 50 Ml Syringe IV 04/13/25 20:37 Q15MIN PRN BG <50 OR BG <70 & pt unresponsive Diltiazem HCl 120 mg 03/30/25 09:00 Diltiazem Cd 120 Mg Capcr PO 04/29/25 08:59 QDAY [facility] Epoetin Jose 10,000 unit 03/30/25 10:00 Epoetin Jose Inj 1,000 Unit/0.05 Ml Unit SC 03/30/25 10:01 X1 ONE Glucagon 1 mg 03/14/25 17:36 Glucagon Inj 1 Mg Vial IM Q15MIN PRN BG <70, and no IV access Heparin Sodium (Porcine) 3,000 unit 03/19/25 13:33 03/25/25 11:37 Heparin Sod Inj 1000 Unit/Ml Vial 10 Ml INDWELLCAT 04/02/25 13:32 3,000 unit PRN PRN Administration DIALYSIS Heparin Sodium (Porcine) 5,000 unit 03/23/25 21:00 03/28/25 08:35 Heparin Sod Inj 5000 Unit/Ml Vial SC 04/06/25 20:59 Not Given Q12HR [facility] Hydromorphone HCl 0.25 mg 03/27/25 10:08 03/30/25 06:55 Hydromorphone Inj 2 Mg/Ml Vial IVP 04/01/25 08:44 0.25 mg Q6H PRN Administration SEVERE PAIN 7-10 Albumin Human 25 gm in 100 mls @ 100 mls/min 03/25/25 08:41 03/27/25 19:46 Albuminar-25 Ivpb IV Infused PRN PRN Infusion DIALYSIS Vancomycin/Sodium Chloride 100 mls @ 120 mls/hr 03/30/25 13:00 Vancomycin/Ns 500 Mg Ivpb IV 03/30/25 13:49 X1 ONE Insulin Human Lispro 0 unit 03/22/25 11:30 03/29/25 22:41 Insulin Lispro (Admelog) 1 Unit/0.01 Ml Unit SC 04/21/25 11:29 Not Given ACHS MON[place]ERRAT Protocol Levalbuterol HCl 0.31 mg 03/28/25 10:24 03/30/25 07:00 Levalbuterol Rt 0.31 Mg/3 Ml Nebu INH 04/19/25 12:14 0.31 mg Q6HRRT PRN Administration Wheezing Midodrine 10 mg 03/19/25 18:19 Midodrine 5 Mg Tablet GT 04/18/25 21:59 TID PRN MAP below 65 Ondansetron HCl 4 mg 03/14/25 17:31 03/30/25 01:39 Ondansetron Inj 2 Mg/Ml Inj 2 Ml IV 04/13/25 17:30 4 mg Q6H PRN Administration NAUSEA OR VOMITING Protocol Pantoprazole Sodium 40 mg 03/14/25 21:00 03/29/25 22:01 Pantoprazole Inj 40 Mg Vial IVP 04/13/25 20:59 40 mg BID MON[place]AT Administration Pharmacy Consult 1 each 03/27/25 08:44 Vancomycin Pharmacy To Dose 1 Each Each IV 04/23/25 16:59 QDAY PRN CONSULT Polyethylene Glycol 17 gm 03/26/25 18:00 03/29/25 09:08 Polyethylene Glycol 17 Gm Packet PO 04/25/25 17:59 Not Given QDAY [place] Pregabalin 50 mg 03/29/25 21:00 03/29/25 22:02 Pregabalin 25 Mg Capsule PO 04/28/25 20:59 50 mg BID MON[place]AT Administration Sennosides 1 tab 03/26/25 18:00 03/29/25 09:07 Senna Tablet PO 04/25/25 17:59 1 tab QDAY [place] Administration Protocol Sodium Chloride 3 ml 03/17/25 19:00 03/30/25 07:01 Sodium Cl Rt Marjorie 3% 4 Ml Nebu (Non-Formulary) INH 04/16/25 18:59 3 ml Q6HRRT [place] Administration Plan 49-year-old male with past medical history of DM2, hypertension, ESRD (HD ), HFpEF (EF 55% on 2021), and right BKA due to osteomyelitis was initially admitted to the ICU on 03/14/2025 for acute hypoxic respiratory failure, acute encephalopathy, and shock. He was subsequently extubated and downgraded to telemetry on 03/20/2025 for continuation of care. #Status post acute non-ST segment elevation myocardial infarction, NSTEMI possible type 2 troponin versus NSTEMI. #SVT episodes. #Afib, rate controlled. #Decompensated HFpEF (EF 45-50%). Patient s/p intubation and pressor support in ICU for shock, distributive secondary to sepsis versus cardiogenic. Patient initially presented to ED in SVT and required shock x1. Troponin initially 1.856 uptrended to 7.899 peak. Patient was treated for pneumonia. Patient was able to wean off pressors, extubated, now downgraded to tele. CT LER showed diffuse stenosis on the arteries of the LLE, occlusions in almost all major arteries. Echo done on 03/16/2025 showed LV appears normal with EF 45-50%. Septal dyskinesis is seen, RV appears normal with RVSP 50 mmHg. Mildly dilated LA & RA Mild mitral regurgitation Mild-Moderate TR. 03/21, patient had 2 rapid response events for SVT in the 170-200s which self converted in minutes. Plan: -Continue amiodarone 200 mg BID. -continue diltiazem Cd 120 mg daily. -Maintain K >4.0 and Mag >2.0. -Continue dialysis per Nephrology. #Extensive atherosclerotic cardiovascular disease with bilateral femoral artery occlusions and distal trifurcation disease with gangrenous changes, ruled out. #Vasopressor-induced vasoconstriction and gangrene, sequelae. -Patient has history of right extremity BKA due to severe PAD. This admission after severe shock requiring pressor support patient subsequently developed ischemia of the right and left fingertips. Vascular surgeon stated that the patient is not a candidate at this time for revascularization, however stated that would discuss case with general surgeon. Likely upper extremity digits affected by vasopressor support in combination with severe PAD causing limb ischemia. -Angiography showed Normal, nonobstructive epicardial coronary arteries. Mild left ventricular dysfunction, ejection fraction 50%. Right ulnarl artery totally occluded with excellent flow from the radial artery. Left lower extremity angiogram showed widely patent SFA and trifurcation with distal dorsalis pedis 100% occlusion. Right lower extremity angiogram also showed no significant obstructive lesions until trifurcation( amputated BKA). Discontinued on aspirin, plavix and statin after angiography. Plan: -follow up with general surgery regarding amputation. -start on Eliquis 2.5 mg BID after surgery. -cardiology cleared for amputation. #GPC bacteremia. #Leukocytosis. #Staph hemolyticus bacteremia. Patient tested for gram-positive cocci 2/2 blood cultures on 03/21/2025, first positive blood cultures this admission. Patient has not been febrile, however has had persistent leukocytosis. Patient subsequently getting all lines removed after receiving dialysis. -Repeat echo on 03/23- Aortic valve leaflets with sclerosis calcification thickening of the cusp but no stenosis. No evidence of vegetation detected. Mitral valve annular show mild calcification mitral leaflets with thickening regurgitations.Left atrium appears to be mildly dilated.Left ventricle is normal with evidence of mild anteroseptal hypokinesis with well-preserved ejection fraction of 50 to 55%. Right heart structures normal. Mild tricuspid regurgitation with no evidence of pulmonary hypertension normal PA pressures. Tricuspid and pulmonic valves appear normal no vegetations. Compared to the study a week ago no change except some improvement in LV function. Repeat blood cultures is negative. HD catheter was exchanged. Plan: -Continue vancomycin IV as per ID recs. #Hypotension, resolved. S/p shock weaned off pressors, multifactorial likely distributive and some component cardiogenic. Plan: -Continue midodrine 10 mg TID as needed. Rest of conditions to continue current management per primary team: #Acute hypoxic respiratory failure. #Community-acquired pneumonia, Stenotrophomonas maltophilia. #ESRD (HD on ). #History of type 2 diabetes. #Respiratory acidosis, resolved. #HAGMA, resolved. #Lactic acidosis, resolved. #Hyperkalemia, resolved. #Shock liver, resolved. #Possible GI bleed. #Macrocytic anemia. #Thrombocytopenia. #Hematemesis, resolved. #Hypoglycemia, resolved. Discussed the patient with my attending Dr Villalobos. Minh Smith MD, PGY 2. Disclaimer: This note was dictated by speech recognition. Minor errors in hose seamer may be present due to voice recognition software.
--- NOTE | 2025-03-30 09:23 | PC.SS ---
SS follow up note; SS contacted patient's Sophia in regards to SNF choice, she informed SS they would like patient to discharge to [facility]. SS contacted [facility] and she informed SS they are able to accept patient. SS will send clinicals through [employer] to get authorization established. SS was informed by Team A that surgery consult is pending, patient not medically at the time.
--- NOTE | 2025-03-30 09:46 | PC.NURSE ---
BP TRENDING DWON WILL ADMIN PRN ALBUMIN AND CONT. TO MONITOR
[2025-03-30] MEDS: ALBUMIN HUMAN 25% IVPB 25 GM/100 ML BTL IV (09:47)
[2025-03-30] MEDS: EPOETIN ALFA INJ 1,000 UNIT/0.05 ML UNIT 10000 UNIT SC (10:58)
[2025-03-30] MEDS: HEPARIN SOD INJ 1000 UNIT/ML VIAL 10 ML 3800 UNIT INDWELLCAT (11:38)
--- NOTE | 2025-03-30 12:01 | PD.RESPRO ---
Documentation for date of: 03/30/25 Subjective Subjective Interval history: Mr. Mcclain is a 49-year-old male with past medical history of type 2 diabetes mellitus, hypertension, end-stage renal disease (HD ), HFpEF (EF 50 to 55% 02/2025) and right BKA due to osteomyelitis who was brought in by ambulance to [facility] emergency department on 03/14/2025 with a chief complaint of altered mental status. Patient was intubated secondary to inability to protect airway. On presentation patient's assisted with procuring history, per patient's patient had progressive shortness of breath and had change in mentation, patient was found to be in SVT when EMS arrived was shocked once and was converted to sinus rhythm. Patient also had to get additional sessions of hemodialysis due to increase in weight, last session of hemodialysis before admission to the hospital was on 12 March 2025. Patient also does have history of methamphetamine use, urine tox screen was positive for methamphetamine and marijuana on presentation. With the progression of hospital course patient was initially managed in the intensive care unit for acute hypoxic respiratory failure was found to have stenotrophomonas maltophilia pneumonia was treated with IV antibiotics, had significant lactic acidosis respiratory acidosis and high anion gap metabolic acidosis which improved in ICU patient did require CRRT and was eventually transition to hemodialysis, patient was eventually extubated on downgraded to telemetry on 03/20/2025. Patient's hospital stay is further complicated with possible acute versus chronic limb ischemia and underlying severe peripheral vascular disease, project director discussed case with vascular surgeon at [facility] during the hospitalization, patient was a poor candidate for revascularization per documentation. Patient started on amiodarone for underlying atrial fibrillation and eventually infectious disease consulted for Staph haemolyticus bacteremia possible CLABSI. Patient continue to receive inpatient hemodialysis. 03/25/2025: Patient successfully completed 3 hours 4 minutes of dialysis session today, postdialysis weight 115.9 kg was hypotensive at times during the dialysis, tolerated dialysis well through the temporary dialysis catheter. Net fluid removed 0.5 L. Blood pressure was soft, received 2 bags of albumin during the dialysis session.Patient will need permanent dialysis catheter placement, will be scheduled with interventional radiology in a.m. after holding aspirin and Plavix. Patient will be made n.p.o. after midnight by primary team. 03/26/2025: Patient seen and examined at bedside, patient had permanent tunneled dialysis catheter placed today. Currently complains of some back pain. Patient will continue to receive IV antibiotics until 04/05/2025 with hemodialysis. Otherwise patient is stable, has no current complaints. Anticipate discharge in next 24 hours on supplemental oxygen. 03/27/2025:Patient received dialysis treatment today, completed about 2 hours of dialysis session, about 1.1 L fluid removed, postdialysis weight 115 kg, was administered 100 mL albumin during the dialysis session for low blood pressure, patient did receive alteplase through the indwelling catheter x 1. Primary team discussed the case with patient and patient's family, patient has been requiring an extensive amount of IV pain medication, further plan by primary team is to discharge patient to assisted facility and not on hospice as patient does not have underlying clear etiology for hospice. Patient's DAPT being held, cardiology following the case and patient may undergo angiogram heart, bilateral upper and lower extremities on Saturday. 03/28/2025: Patient continues to complain of pain, patient's gabapentin changed to pregabalin 25 twice daily and [place] was increased to 7.5 mg. Patient Aspirin and Plavix being held, patient going to undergo cardiac angiogram and angiogram upper and lower extremities likely in the morning. Will coordinate with cardiology. 03/29/2025: Labs and Vitals reviewed. Patient scheduled for Procedure with Cardiology Today, will plan for dialysis pot procedure after discussion with Cardiology Team, otherwise patient is stable, has no current complains. Pregabalin dose adjusted by primrary team. 03/30/2025: Patient received dialysis treatment today, received dialysis for 3 hours 6-minute, about 2 L fluid removed, postdialysis weight 112.3, patient was administered 100 mL of albumin during dialysis. Patient had his angiogram done yesterday showed right ulnar artery to be totally occluded or absent and there was no CAD. Cardiology recommended to stop patient's aspirin, Plavix, metoprolol, and statin and they also started the patient on diltiazem. They also recommended to get general surgery for possible amputation and to start Eliquis 2.5 mg twice daily after the patient has surgery. Will consult general surgery for possible amputation. Exam Vital Signs Temp Pulse Resp BP Pulse Ox O2 Del Method O2 Flow Rate 98.1 F 87 19 106/64 98 Nasal Cannula 2 03/31/25 08:00 03/31/25 09:26 03/31/25 08:00 03/31/25 09:26 03/31/25 08:00 03/31/25 08:00 03/31/25 08:00 FiO2 93 03/29/25 10:27 Narrative Exam General: AO x 3, no acute distress Eyes: Pupils reactive to light, EOMI, vision intact Ears: No visible ear discharge Nose: No visible nasal discharge. Mouth/Throat: Moist mucous membranes, no redness, no lesions. Neck: Neck supple, no cervical lymphadenopathy. Lungs: Clear CHRISTIANO Cardio: Normal S1/S2, irregular, no murmurs, no JVD Abdomen: Soft, non-tender, no palpable masses, peristalsis present, no guarding or rebound Extremities: Right BKA with cyanotic changes at the stump still present and is tender, left foot demarcated purplish discoloration and necrotic changes in toes unchanged, right upper extremity 2nd and 3rd digits show necrotic changes at the tips. Skin: Right 2nd and 3rd upper extremity digits show necrotic changes at the tips with some bullae at the rest of the digit, Left foot discoloration, bullae, and necrotic changes in toes. Neuro: No focal neurological deficits, motor and sensory intact. Objective Labs 04/05/25 05:42 04/05/25 05:42 Labs: Laboratory Results - last 24 hr 03/31/25 03/31/25 05:42 09:01 WBC 5.4 RBC 2.16 L Hgb 6.8 L* 7.2 L Hct 22.9 L 23.5 L MCV 106 H MCH 31.5 MCHC 29.7 L RDW Std Deviation 62.4 H Plt Count 139 L Neut % (Auto) 62 Lymph % (Auto) 19 [place] % (Auto) 17 H Eos % (Auto) 1 Baso % (Auto) 1 Neut # (Auto) 3.3 Lymph # (Auto) 1.0 [place] # (Auto) 0.9 H Eos # (Auto) 0.0 Baso # (Auto) 0.0 Immature Gran # (Auto) 0.10 H Absolute Nucleated RBC 0.00 Immature Gran % 2 H Nucleated RBC % 0 Sodium 136 Potassium 5.1 Chloride 100 Carbon Dioxide 26.8 Anion Gap 9 BUN 61 H Creatinine 5.6 H* D Estim Creat Clear Calc 20.5 L eGFR 12 L* BUN/Creatinine Ratio 11 L Glucose 96 Calculated Osmolality 289 Calcium 7.8 L Corrected Calcium 8.4 L Total Bilirubin 0.4 AST 13 ALT 48 Alkaline Phosphatase 108 Total Protein 6.1 Albumin 3.2 L Globulin 2.9 Albumin/Globulin Ratio 1.1 L Random Vancomycin 17.2 ABG Interpretation ABG results: 03/14/25 03/14/25 03/14/25 14:44 16:44 18:53 ABG pH 7.03 L* 7.04 L* 7.10 L* ABG pCO2 43 50 H 46 ABG pO2 86 128 H D 57 L* D ABG HCO3 11 L 13 L 14 L ABG O2 Saturation 91 97 78 L ABG Base Excess -19 L -17 L -15 L VBG pH VBG pCO2 VBG pO2 VBG Base Excess 03/14/25 03/15/25 03/15/25 21:20 05:07 12:28 ABG pH 7.21 L D 7.41 D ABG pCO2 32 D 31 L ABG pO2 116 H D 74 L D ABG HCO3 13 L 20 ABG O2 Saturation 97 95 ABG Base Excess -14 L -4 L VBG pH 7.43 VBG pCO2 34 L VBG pO2 37 VBG Base Excess -1 03/16/25 03/16/25 03/16/25 04:51 11:48 19:30 ABG pH 7.46 H 7.22 L D 7.38 D ABG pCO2 29 L 66 H D 48 D ABG pO2 78 L 79 L 236 H D ABG HCO3 21 27 H 29 H ABG O2 Saturation 96 91 100 H ABG Base Excess -2 -2 3 VBG pH VBG pCO2 VBG pO2 VBG Base Excess 03/17/25 03/18/25 03/19/25 04:53 09:27 04:46 ABG pH 7.38 7.35 ABG pCO2 49 H 48 ABG pO2 78 L D 92 ABG HCO3 29 H 26 ABG O2 Saturation 95 98 ABG Base Excess 3 0 VBG pH 7.34 VBG pCO2 54 D VBG pO2 34 VBG Base Excess 2 03/24/25 22:00 ABG pH 7.33 L ABG pCO2 48 ABG pO2 233 H ABG HCO3 25 ABG O2 Saturation 101 H ABG Base Excess -1 VBG pH VBG pCO2 VBG pO2 VBG Base Excess Quality Measures Quality Measures VTE prophylaxis Assessment & Plan Assessment Current Active Medications: Generic Name Dose Route Start Last Admin Trade Name Freq PRN Reason Stop Dose Admin Acetaminophen 650 mg 03/20/25 11:35 03/21/25 06:39 Acetaminophen 325 Mg Tablet PO 04/19/25 11:34 650 mg Q6HR PRN Administration pain and Fever >100.4 Protocol Hydrocodone Bitart/Acetaminophen 1 tab 03/28/25 08:32 03/31/25 11:20 Hydrocodone/Apap 7.5/325 Tablet PO 04/02/25 08:31 1 tab Q6HR PRN Administration PAIN SCALE 4-6 (Moderate Amiodarone HCl 200 mg 03/19/25 21:00 03/31/25 09:26 Amiodarone Hcl 200 Mg Tablet GT 04/18/25 20:59 200 mg BID MONTSERRAT Administration Dextrose 25 ml 03/14/25 20:38 03/20/25 23:30 Dextrose 50%-Water Inj 50 Ml Syringe IV 04/13/25 20:37 25 ml Q15MIN PRN Administration BG 50-70 responsive npo pt Dextrose 50 ml 03/14/25 20:38 Dextrose 50%-Water Inj 50 Ml Syringe IV 04/13/25 20:37 Q15MIN PRN BG <50 OR BG <70 & pt unresponsive Diltiazem HCl 120 mg 03/30/25 09:00 03/31/25 09:25 Diltiazem Cd 120 Mg Capcr PO 04/29/25 08:59 120 mg QDAY [place] Administration Glucagon 1 mg 03/14/25 17:36 Glucagon Inj 1 Mg Vial IM Q15MIN PRN BG <70, and no IV access Heparin Sodium (Porcine) 5,000 unit 03/23/25 21:00 03/31/25 09:25 Heparin Sod Inj 5000 Unit/Ml Vial SC 04/06/25 20:59 5,000 unit Q12HR MONTSERRAT Administration Heparin Sodium (Porcine) 3,800 unit 03/30/25 08:26 03/30/25 11:38 Heparin Sod Inj 1000 Unit/Ml Vial 10 Ml INDWELLCAT 04/13/25 08:25 3,800 unit PRN PRN Administration DIALYSIS Hydromorphone HCl 0.5 mg 03/30/25 17:09 03/31/25 07:53 Hydromorphone Inj 2 Mg/Ml Vial IVP 04/01/25 08:44 0.5 mg Q6H PRN Administration SEVERE PAIN 7-10 Insulin Human Lispro 0 unit 03/22/25 11:30 03/31/25 11:29 Insulin Lispro (Admelog) 1 Unit/0.01 Ml Unit SC 04/21/25 11:29 Not Given ACHS MONTSERRAT Protocol Levalbuterol HCl 0.31 mg 03/28/25 10:24 03/31/25 00:37 Levalbuterol Rt 0.31 Mg/3 Ml Nebu INH 04/19/25 12:14 0.31 mg Q6HRRT PRN Administration Wheezing Midodrine 10 mg 03/19/25 18:19 Midodrine 5 Mg Tablet GT 04/18/25 21:59 TID PRN MAP below 65 Ondansetron HCl 4 mg 03/14/25 17:31 03/30/25 01:39 Ondansetron Inj 2 Mg/Ml Inj 2 Ml IV 04/13/25 17:30 4 mg Q6H PRN Administration NAUSEA OR VOMITING Protocol Pantoprazole Sodium 40 mg 03/31/25 09:00 03/31/25 09:25 Pantoprazole Inj 40 Mg Vial IVP 04/30/25 08:59 40 mg QDAY [place] Administration Pharmacy Consult 1 each 03/27/25 08:44 Vancomycin Pharmacy To Dose 1 Each Each IV 04/23/25 16:59 QDAY PRN CONSULT Polyethylene Glycol 17 gm 03/26/25 18:00 03/31/25 09:25 Polyethylene Glycol 17 Gm Packet PO 04/25/25 17:59 17 gm QDAY MON[place] Administration Pregabalin 50 mg 03/29/25 21:00 03/31/25 09:27 Pregabalin 25 Mg Capsule PO 04/28/25 20:59 50 mg BID MONTSERRAT Administration Sennosides 1 tab 03/26/25 18:00 03/31/25 09:25 Senna Tablet PO 04/25/25 17:59 1 tab QDAY MONTSERRAT Administration Protocol Sodium Chloride 3 ml 03/31/25 06:26 Sodium Cl Rt Marjorie 3% 4 Ml Nebu (Non-Formulary) INH 04/16/25 18:59 Q6HRRT PRN To induce cough Plan Assessment and Plan: Summary: Mr. Mcclain is a 49 years old male with PMH of DM2, hypertension, ESRD (HD /), HFpEF (EF 55% on 2021), and right BKA due to osteomyelitis BIBA to the ED due to AMS, was intubated and started on pressors and was admitted to the ICU on 03/14/2025 for management of shock of unknown etiology and was started on IV antibiotics. On 03/17 his sputum culture grew stenotrophomonas maltophilia and antibiotics were changed to levofloxacin. He was extubated and downgraded to telemetry on 03/20/2025 for continuation of care. # End-stage renal disease Patient received CRRT in intensive care unit, was transition to hemodialysis. Patient will need a line holiday and placement of due to underlying bacteremia. Primary team to hold aspirin and Plavix, catheter will be exchanged in a.m. possibly Patient received permanent tunneled dialysis catheter placement on 03/26/2025. 03/30/2025: Patient received dialysis treatment today, received dialysis for 3 hours 6-minute, about 2 L fluid removed, postdialysis weight 112.3, patient was administered 100 mL of albumin during dialysis. Patient had his angiogram done yesterday showed right ulnar artery to be totally occluded or absent and there was no CAD. Cardiology recommended to stop patient's aspirin, Plavix, metoprolol, and statin and they also started the patient on diltiazem. They also recommended to get general surgery for possible amputation and to start Eliquis 2.5 mg twice daily after the patient has surgery. Will consult general surgery for possible amputation. Plan: - Continue with hemodialysis inpatient - Avoid nephrotoxic agents. - Renally dose medications. #Staph Hemolyticus bacteremia #CLABSI Patient tested for gram-positive cocci (staph hymolyticus ) 2/2 blood blood cultures on 03/21/2025 Patient currently has temporary dialysis catheter, aspirin and Plavix will be held Will be scheduled for permanent tunneled dialysis catheter placement in a.m. #Acute blood loss Anemia #Hematemesis. #Macrocytic anemia. #Thrombocytopenia. Hemoglobin 7.9, RBC 2.48, hematocrit 25%, MCV 101, platelets 131 today - Management as per primary team #HFrEF (EF 50-55% on 2024) #A-fib with RVR, rate controlled #Troponinemia - resolved Patient had improved ejection fraction compared to the echocardiogram from a week ago, cardiology is consulted. Patient is on amiodarone for atrial fibrillation. - Management as per primary team #Possible acute vs chronic limb ischemia. #Peripheral Vascular disease, severe Patient has severe vascular disease, case was discussed by ICU team with a vascular surgeon at [facility] Patient is poor candidate for surgery per documentation -Patient was referred to hospice by primary team #Acute hypoxic respiratory failure, improved. #Stenotrophomonas maltophilia pneumonia. #Respiratory acidosis, resolved. #Septic shock, resolved. - Management as per primary team #Transaminitis. #Hyperbilirubinemia #Hepatomegaly. #Hx of DM2. #Hypoglycemia, resolved. -Management per primary team Case discussed with Attending Dr. Pleitez. Marycarmen Clark PGY1 Disclaimer: This note was dictated by speech recognition. Minor errors in plating tank operator may be present due to voice recognition software. Attending Provider Attestation/Addendum Pt is seen and examined. Labs and investigations are reviewed. Agree witth assessment and plan by resident. agree with findings. Héctor Pleitez MD
[2025-03-30] MEDS: AMIODARONE HCL 200 MG TABLET GT ×2 (12:14→21:03)
[2025-03-30] MEDS: DILTIAZEM CD 120 MG CAPCR PO (12:14)
[2025-03-30] MEDS: SENNA TABLET 1 TAB PO (12:14)
[2025-03-30] MEDS: POLYETHYLENE GLYCOL 17 GM PACKET PO (12:15)
[2025-03-30] MEDS: PREGABALIN 25 MG CAPSULE 50 MG PO ×2 (12:15→21:04)
[2025-03-30] MEDS: HEPARIN SOD INJ 5000 UNIT/ML VIAL SC ×2 (12:15→21:05)
--- NOTE | 2025-03-30 13:13 | PD.ADDPROG ---
Addendum Progress Note Addendum Date of report being addended: 03/30/25 Narrative: I reviewed labs, imaging, EKG, home medications and prior available records. Face to face evaluation was performed by me. I have personally examined the patient and discussed assessment and plan with the IM team. I reviewed the resident note and agree with the plan with exceptions as below. Acute encephalopathy, resolved Acute hypoxic respiratory failure, status post intubation, s/p extubation ESRD on hemodialysis HFrEF EF 45 to 50% Atrial fibrillation with controlled ventricular rhythm PAD Gangrene of toes and fingers, in the setting of severe PAD in the vasopressors Non-STEMI Clotting of dialysis fistula Leukocytosis, improved Status post cardiac catheterization that showed nonobstructive CAD Status post angiogram that showed severe PAD with occlusions. Cardiology recommended surgical consultation for surgical amputation given the dry gangrene of his foot and hand. Pending recommendations Continue pain management with IV Dilaudid. Added pregabalin Continue IV vancomycin till 04/05 Removed temporary dialysis line. Status post permacath on 03/26 Outpatient follow-up with vascular surgery for the clotted fistula continue to monitor H&H Monitor H&H: Stable Started diltiazem for the A-fib. Can start Eliquis after surgery Stopped aspirin and Plavix per cardiology recommendations Continue hemodialysis per nephrology recommendations PT recommended SNF. He is not on hospice. Accepted to [facility] however he needs to stay for surgical evaluation for possible amputation. organic lab worker is following
[2025-03-30] MEDS: VANCOMYCIN/NS 500 MG IVPB 100 ML 120 MG IV (14:02)
--- NOTE | 2025-03-30 14:17 | ESPR_ITS ---
Documentation for date of: 03/30/25 Subjective Subjective Interval history: Patient was seen and examined at bedside this morning. No overnight events. Patient had his angiogram done yesterday showed right ulnar artery to be totally occluded or absent and there was no CAD. Cardiology recommended to stop patient's aspirin, Plavix, metoprolol, and statin and they also started the patient on diltiazem. They also recommended to get general surgery for possible amputation and to start Eliquis 2.5 mg twice daily after the patient has surgery. Will consult general surgery for possible amputation. Otherwise no other complaints at this time. Exam Vital Signs Temp Pulse Resp BP Pulse Ox O2 Del Method O2 Flow Rate 98.2 F 90 20 105/60 99 Nasal Cannula 2 03/30/25 12:00 03/30/25 13:33 03/30/25 13:33 03/30/25 12:14 03/30/25 13:33 03/30/25 12:00 03/30/25 13:33 FiO2 93 03/29/25 10:27 Narrative Exam General: AO x 3, no acute distress Eyes: Pupils reactive to light, EOMI, vision intact Ears: No visible ear discharge Nose: No visible nasal discharge. Mouth/Throat: Moist mucous membranes, no redness, no lesions. Neck: Neck supple, no cervical lymphadenopathy. Lungs: Clear CHRISTIANO Cardio: Normal S1/S2, irregular, no murmurs, no JVD Abdomen: Soft, non-tender, no palpable masses, peristalsis present, no guarding or rebound Extremities: Right BKA with cyanotic changes at the stump still present and is tender, left foot demarcated purplish discoloration and necrotic changes in toes unchanged, right upper extremity 2nd and 3rd digits show necrotic changes at the tips. Skin: Right 2nd and 3rd upper extremity digits show necrotic changes at the tips with some bullae at the rest of the digit, Left foot discoloration and necrotic changes in toes. Neuro: No focal neurological deficits, motor and sensory intact. Objective Labs 03/31/25 09:01 03/31/25 05:42 Labs: Laboratory Results - last 24 hr 03/30/25 05:40 WBC 5.5 RBC 2.29 L Hgb 7.3 L Hct 24.0 L MCV 105 H MCH 31.9 MCHC 30.4 L RDW Std Deviation 62.4 H Plt Count 155 Neut % (Auto) 69 Lymph % (Auto) 12 Dyer % (Auto) 16 H Eos % (Auto) 1 Baso % (Auto) 1 Neut # (Auto) 3.8 Lymph # (Auto) 0.7 L Dyer # (Auto) 0.9 H Eos # (Auto) 0.1 Baso # (Auto) 0.0 Immature Gran # (Auto) 0.06 H Absolute Nucleated RBC 0.00 Immature Gran % 1 H Nucleated RBC % 0 Sodium 136 Potassium 5.4 H D Chloride 99 Carbon Dioxide 24.5 Anion Gap 13 BUN 69 H Creatinine 6.6 H* D Estim Creat Clear Calc 17.3 L eGFR 9 L* BUN/Creatinine Ratio 10 L Glucose 112 H Calculated Osmolality 293 Calcium 7.9 L Corrected Calcium 8.6 Magnesium 2.2 Total Bilirubin 0.4 AST 17 ALT 58 H Alkaline Phosphatase 122 H Total Protein 6.1 Albumin 3.1 L Globulin 3.0 Albumin/Globulin Ratio 1.0 L Random Vancomycin 14.0 ABG Interpretation ABG results: 03/14/25 03/14/25 03/14/25 14:44 16:44 18:53 ABG pH 7.03 L* 7.04 L* 7.10 L* ABG pCO2 43 50 H 46 ABG pO2 86 128 H D 57 L* D ABG HCO3 11 L 13 L 14 L ABG O2 Saturation 91 97 78 L ABG Base Excess -19 L -17 L -15 L VBG pH VBG pCO2 VBG pO2 VBG Base Excess 03/14/25 03/15/25 03/15/25 21:20 05:07 12:28 ABG pH 7.21 L D 7.41 D ABG pCO2 32 D 31 L ABG pO2 116 H D 74 L D ABG HCO3 13 L 20 ABG O2 Saturation 97 95 ABG Base Excess -14 L -4 L VBG pH 7.43 VBG pCO2 34 L VBG pO2 37 VBG Base Excess -1 03/16/25 03/16/25 03/16/25 04:51 11:48 19:30 ABG pH 7.46 H 7.22 L D 7.38 D ABG pCO2 29 L 66 H D 48 D ABG pO2 78 L 79 L 236 H D ABG HCO3 21 27 H 29 H ABG O2 Saturation 96 91 100 H ABG Base Excess -2 -2 3 VBG pH VBG pCO2 VBG pO2 VBG Base Excess 03/17/25 03/18/25 03/19/25 04:53 09:27 04:46 ABG pH 7.38 7.35 ABG pCO2 49 H 48 ABG pO2 78 L D 92 ABG HCO3 29 H 26 ABG O2 Saturation 95 98 ABG Base Excess 3 0 VBG pH 7.34 VBG pCO2 54 D VBG pO2 34 VBG Base Excess 2 03/24/25 22:00 ABG pH 7.33 L ABG pCO2 48 ABG pO2 233 H ABG HCO3 25 ABG O2 Saturation 101 H ABG Base Excess -1 VBG pH VBG pCO2 VBG pO2 VBG Base Excess Quality Measures Quality Measures VTE prophylaxis Assessment & Plan Assessment Current Active Medications: Generic Name Dose Route Start Last Admin Trade Name Freq PRN Reason Stop Dose Admin Acetaminophen 650 mg 03/20/25 11:35 03/21/25 06:39 Acetaminophen 325 Mg Tablet PO 04/19/25 11:34 650 mg Q6HR PRN Administration pain and Fever >100.4 Protocol Hydrocodone Bitart/Acetaminophen 1 tab 03/28/25 08:32 03/30/25 12:15 Hydrocodone/Apap 7.5/325 Tablet PO 04/02/25 08:31 1 tab Q6HR PRN Administration PAIN SCALE 4-6 (Moderate Amiodarone HCl 200 mg 03/19/25 21:00 03/30/25 12:14 Amiodarone Hcl 200 Mg Tablet GT 04/18/25 20:59 200 mg BID MONTSERRAT Administration Dextrose 25 ml 03/14/25 20:38 03/20/25 23:30 Dextrose 50%-Water Inj 50 Ml Syringe IV 04/13/25 20:37 25 ml Q15MIN PRN Administration BG 50-70 responsive npo pt Dextrose 50 ml 03/14/25 20:38 Dextrose 50%-Water Inj 50 Ml Syringe IV 04/13/25 20:37 Q15MIN PRN BG <50 OR BG <70 & pt unresponsive Diltiazem HCl 120 mg 03/30/25 09:00 03/30/25 12:14 Diltiazem Cd 120 Mg Capcr PO 04/29/25 08:59 120 mg QDAY MON[place]AT Administration Glucagon 1 mg 03/14/25 17:36 Glucagon Inj 1 Mg Vial IM Q15MIN PRN BG <70, and no IV access Heparin Sodium (Porcine) 5,000 unit 03/23/25 21:00 03/30/25 12:15 Heparin Sod Inj 5000 Unit/Ml Vial SC 04/06/25 20:59 5,000 unit Q12HR MON[place]ERRAT Administration Heparin Sodium (Porcine) 3,800 unit 03/30/25 08:26 03/30/25 11:38 Heparin Sod Inj 1000 Unit/Ml Vial 10 Ml INDWELLCAT 04/13/25 08:25 3,800 unit PRN PRN Administration DIALYSIS Hydromorphone HCl 0.25 mg 03/27/25 10:08 03/30/25 14:08 Hydromorphone Inj 2 Mg/Ml Vial IVP 04/01/25 08:44 0.25 mg Q6H PRN Administration SEVERE PAIN 7-10 Insulin Human Lispro 0 unit 03/22/25 11:30 03/30/25 12:18 Insulin Lispro (Admelog) 1 Unit/0.01 Ml Unit SC 04/21/25 11:29 Not Given ACHS [facility] Protocol Levalbuterol HCl 0.31 mg 03/28/25 10:24 03/30/25 13:32 Levalbuterol Rt 0.31 Mg/3 Ml Nebu INH 04/19/25 12:14 0.31 mg Q6HRRT PRN Administration Wheezing Midodrine 10 mg 03/19/25 18:19 Midodrine 5 Mg Tablet GT 04/18/25 21:59 TID PRN MAP below 65 Ondansetron HCl 4 mg 03/14/25 17:31 03/30/25 01:39 Ondansetron Inj 2 Mg/Ml Inj 2 Ml IV 04/13/25 17:30 4 mg Q6H PRN Administration NAUSEA OR VOMITING Protocol Pantoprazole Sodium 40 mg 03/31/25 09:00 Pantoprazole Inj 40 Mg Vial IVP 04/30/25 08:59 QDAY [facility] Pharmacy Consult 1 each 03/27/25 08:44 Vancomycin Pharmacy To Dose 1 Each Each IV 04/23/25 16:59 QDAY PRN CONSULT Polyethylene Glycol 17 gm 03/26/25 18:00 03/30/25 12:15 Polyethylene Glycol 17 Gm Packet PO 04/25/25 17:59 17 gm QDAY [place] Administration Pregabalin 50 mg 03/29/25 21:00 03/30/25 12:15 Pregabalin 25 Mg Capsule PO 04/28/25 20:59 50 mg BID MON[place]ERRAT Administration Sennosides 1 tab 03/26/25 18:00 03/30/25 12:14 Senna Tablet PO 04/25/25 17:59 1 tab QDAY [place] Administration Protocol Sodium Chloride 3 ml 03/17/25 19:00 03/30/25 13:33 Sodium Cl Rt Marjorie 3% 4 Ml Nebu (Non-Formulary) INH 04/16/25 18:59 3 ml Q6HRRT [place]AT Administration Plan 49-year-old male with past medical history of DM2, hypertension, ESRD (HD /), HFpEF (EF 55% on 2021), and right BKA due to osteomyelitis was admitted to the ICU on 03/14/2025 for acute hypoxic respiratory failure, acute encephalopathy, and shock. He was extubated and downgraded to telemetry on 03/20/2025. #Staph Hemolyticus bacteremia #CLABSI Patient grew Staphylococcus hemolyticus from blood cultures on 03/21/2025 Repeat blood cultures on 03/14/2025 have been negative for the past 48 hours Repeat echo did not show any vegetations Central line and dialysis catheter removed 03/25/2025 New tunneled catheter placed 03/26/2025 No spikes in fever or WBC Plan: Continue Vancoymycin 03/23- 04/05 Consulted infectious disease, appreciate recommendations #A-fib with RVR, rate controlled #MAT #SVT Patient again went into SVT last night and was shocked again, but on repeat EKG showed to be in A-fib RVR. Patient again went into SVT and received adenosine 6mg x1 and adenosine 12mg x1 before being cardioverted. Repeat EKG showed what appears to be MAT. [id number] score of 3 points indicating 3.2% risk of stroke per year HAS-BLED score of 5 points Patient had his angiogram done yesterday showed right ulnar artery to be totally occluded or absent and there was no CAD. Cardiology recommended to stop patient's aspirin, Plavix, metoprolol, and statin Plan: Continue amiodarone 200mg BID Continue diltiazem CD 120 mg daily No anticoagulation until patient gets heart cath Keep Potassium >4 and Mg >2 Carbon Electrodes Supervisor consulted, appreciate recommendations #Possible acute vs chronic limb ischemia. #Right ulnar artery occlusion #Peripheral Vascular disease, severe Abdomen CTA with runoff that showed occlusion of multiple arteries including the left radial, gluteal, and tibial arteries as well as 90% stenosis of the left superficial femoral artery Also showed 80% stenosis of right superficial femoral artery. Overnight ICU team spoke with vascular surgeon at [facility] who stated that at this time patient was not a candidate for transfer for revascularization. Patient understands that he may lose multiple digits and even his left lower foot. Patient had his angiogram done yesterday showed right ulnar artery to be totally occluded or absent and there was no CAD. Cardiology recommended to stop patient's aspirin, Plavix, metoprolol, and statin Patient may require amputation hospital, will get recommendations from general surgery. Plan: Nitroglycerin topical ointment. Will hold aspirin and Plavix Walford 7.5/325 q6h prn and Dilaudid 0.5mg q6h prn Pregabalin increase to 50mg BID General Surgery consulted, per recommendations Pt will need outpatient follow up with vascular surgeon #Acute hypoxic respiratory failure, improved. #Stenotrophomonas maltophilia pneumonia. #Respiratory acidosis, resolved. #Septic shock, resolved. Intubated on 03/14/2025. Sputum grew stenotrophomonas maltophilia. Extubated on 03/20/2025. Zosyn 03/14/2025-03/17/2025 Vancomycin 03/14/2025 - 03/15/2025. Discontinued levaquin 500mg q48hr 03/17/2025- 03/21 Plan: Patient will need to have a walk test prior to O2 delivery to home Midodrine 10mg TID as needed. #Troponinemia, resolved Troponins peaked at 7.899 and down trended to 7.04. Echo 03/16/2025 showed EF of 45 to 50% and septal dyskinesis. Echo on 03/23/2025 shows some improvement and left ventricle function with an EF of 50 to 55% Patient had his angiogram done yesterday showed right ulnar artery to be totally occluded or absent and there was no CAD. Cardiology recommended to stop patient's aspirin, Plavix, metoprolol, and statin Plan: Cardiology consulted, appreciate recommendations. #HFrEF (EF 50-55% on 2024). Echo on 03/16/2025 showed EF of 45 to 50% and septal dyskinesis. Echo on 03/23/2025 shows some improvement and left ventricle function with an EF of 50 to 55% Plan: Will continue with hemodialysis with fluid removal. Daily weights. Strict JENN's. fluid restriction. #ESRD (HD on ). #HAGMA, resolved. #Lactic acidosis, resolved. Patient was on hemodialysis and had AV fistula, but was clotted therefore cannot be used. Tunnedled dialysis cath placed 03/26/2025 Plan: Continue hemodialysis as scheduled. Primary Care Sales Representative Dr. Pleitez following, appreciate recommendations Avoid nephrotoxic agents. Renally dose medications. #Hematemesis. #Macrocytic anemia. #Thrombocytopenia. Patient's hemoglobin was downtrending from 11.9 on admission Hemoglobin 7.3 and platelets 155 No active signs of bleeding Plan: Continue to monitor daily CBC Transfuse if Hgb less than 7. #Transaminitis, improving #Hyperbilirubinemia, resolved #Hepatomegaly. Possible liver failure due to methamphetamine use? Could be due to shock liver versus hypoxia versus drug-induced. Hepatitis panel negative and abdominal ultrasound that shows some hepatomegaly with possible cirrhosis versus hepatocellular disease. Plan: Continue monitoring daily labs #Hx of DM2. ISS. Hypoglycemia protocol ordered. Hospital Maintenance: Disposition: Possibly get amputation of necrotic digits and foot by general surgery, pending general surgery's recommendations. Diet: renal diet DVT ppx: Heparin 5000 SC Q12H GI ppx: Protonix IV. Code status: DNR. Case disclosed with Attending Dr. Amrit Lee PGY1 Attending Provider Attestation/Addendum I reviewed labs, imaging, EKG, home medications and prior available records. Face to face evaluation was performed by me. I have personally examined the patient and discussed assessment and plan with the IM team. I reviewed the resident note and agree with the plan with exceptions as below. Acute encephalopathy, resolved Acute hypoxic respiratory failure, status post intubation, s/p extubation ESRD on hemodialysis HFrEF EF 45 to 50% Atrial fibrillation with controlled ventricular rhythm PAD Gangrene of toes and fingers, in the setting of severe PAD in the vasopressors Non-STEMI Clotting of dialysis fistula Leukocytosis, improved Status post cardiac catheterization that showed nonobstructive CAD Status post angiogram that showed severe PAD with occlusions. Cardiology recommended surgical consultation for surgical amputation given the dry gangrene of his foot and hand. Pending recommendations Continue pain management with IV Dilaudid. Added pregabalin Continue IV vancomycin till 04/05 Removed temporary dialysis line. Status post permacath on 03/26 Outpatient follow-up with vascular surgery for the clotted fistula continue to monitor H&H Monitor H&H: Stable Started diltiazem for the A-fib. Can start Eliquis after surgery Stopped aspirin and Plavix per cardiology recommendations Continue hemodialysis per nephrology recommendations PT recommended SNF. He is not on hospice. Accepted to [facility] however he needs to stay for surgical evaluation for possible amputation. hotel maintenance worker is following
[2025-03-30] MEDS: HYDROmorphone INJ 2 MG/ML VIAL 0.5 MG IVP (17:17)
[2025-03-31] VITALS (11 sets, daily range): BP systolic 87–110; BP diastolic 60–72; PULSE 84–90; RESP 13–20; TEMP 36.1–36.8; O2SAT 95–100; BMI 34.1
[2025-03-31] MEDS: LEVALBUTEROL RT 0.31 MG/3 ML NEBU INH (00:37)
[2025-03-31] MEDS: SODIUM CL RT SOL 3% 4 ML NEBU (NON-FORMULARY) 3 ML INH (00:37)
[2025-03-31] MEDS: HYDROmorphone INJ 2 MG/ML VIAL 0.5 MG IVP ×3 (01:23→14:20)
[2025-03-31 06:29] LABS: Basophils % (Auto) 1 % (0-2.5); Eosinophils % (Auto) 1 % (0-10); Hematocrit 22.9 % (41.0-53.0); Immature Granulocytes % (Auto) 2 % (0-0); Lymphocytes % (Auto) 19 % (10-50); Mean Corpuscular HGB Conc 29.7 g/dl (31.0-37.0); Mean Corpuscular Hemoglobin 31.5 pg (25.0-35.0); Mean Corpuscular Volume 106 fL (80-100); Monocytes # (Auto) 0.9 Thou/mm3 (0.0-0.8); Monocytes % (Auto) 17 % (0-12); Neutrophils # (Auto) 3.3 Thou/mm3 (1.8-7.7); Neutrophils % (Auto) 62 % (37-80); Nucleated Red Blood Cell % 0 /100 WBC (0); Platelet Count 139 Thou/mm3 (140-440); RDW Standard Deviation 62.4 fL (35.1-43.9); Red Blood Count 2.16 Miln/mm3 (4.50-5.90); White Blood Count 5.4 Thou/mm3 (3.8-10.6)
[2025-03-31 06:50] LABS: Hemoglobin 6.8 g/dL (13.5-16.0)
[2025-03-31 07:17] LABS: Alanine Aminotransferase 48 U/L (10-49); Albumin, Serum 3.2 gm/dL (3.5-5.0); Albumin/Globulin Ratio 1.1 (1.2-2.2); Alkaline Phosphatase 108 U/L (46-116); Anion Gap 9 (7-16); Aspartate Amino Transferase 13 U/L (0-34); BUN/Creatinine Ratio 11 Ratio (12-20); Bilirubin,Total 0.4 mg/dL (0.3-1.2); Blood Urea Nitrogen 61 mg/dL (9-23); Calcium 7.8 mg/dL (8.3-10.6); Calcium (Corrected) 8.4 mg/dL (8.5-10.1); Carbon Dioxide 26.8 mMol/L (20.0-31.0); Chloride 100 mMol/L (98-107); Creatinine (Component) 5.6 mg/dL (0.6-1.3); Estimated Creatinine Clearance 20.5 mL/min (>60); Globulin 2.9 gm/dL (2.3-3.5); Glucose 96 mg/dL (74-106); Osmolality,Calculated 289 (275-295); Potassium 5.1 mMol/L (3.4-5.1); Sodium 136 mMol/L (136-145); Total Protein 6.1 gm/dL (5.7-8.2); Vancomycin,Random 17.2 mcg/mL; eGFR 12 See Note
--- NOTE | 2025-03-31 09:14 | PC.SS ---
SS follow up note; Surgery consult pending, possible amputation. Patient is pending Auth to [facility].
[2025-03-31] MEDS: PANTOPRAZOLE INJ 40 MG VIAL IVP (09:25)
[2025-03-31] MEDS: DILTIAZEM CD 120 MG CAPCR PO (09:25)
[2025-03-31] MEDS: POLYETHYLENE GLYCOL 17 GM PACKET PO (09:25)
[2025-03-31] MEDS: SENNA TABLET 1 TAB PO (09:25)
[2025-03-31] MEDS: HEPARIN SOD INJ 5000 UNIT/ML VIAL SC ×2 (09:25→20:58)
[2025-03-31] MEDS: AMIODARONE HCL 200 MG TABLET GT ×2 (09:26→20:58)
[2025-03-31 09:27] LABS: Hematocrit 23.5 % (41.0-53.0)
[2025-03-31] MEDS: PREGABALIN 25 MG CAPSULE 50 MG PO ×3 (09:27→21:46)
[2025-03-31 09:32] LABS: Hemoglobin 7.2 g/dL (13.5-16.0)
[2025-03-31] MEDS: HYDROcodone/APAP 7.5/325 TABLET 1 TAB PO ×2 (11:20→19:38)
--- NOTE | 2025-03-31 11:29 | PD.SURCONS ---
HPI Consult details Consult date: 03/31/25 Reason for consultation narrative: Left foot gangrene History of present illness: 49-year-old male with history of diabetes, hypertension, end-stage renal disease on dialysis was admitted over 2 weeks ago with altered mental status and respiratory failure requiring intubation. Patient was in intensive care unit for prolonged period of time requiring high doses of pressors. His respiratory failure improved and patient was extubated and transferred out of the ICU. However, he was developed gangrene of the left foot and multiple digits of her upper extremities. I was asked to evaluate him for left foot gangrene. Past Medical History Surgical History OTHER SURGICAL HX: Right BKA Meds Home Medications and Allergies Home Medications ?Medication ?Instructions ?Recorded ?Confirmed ?Type No Known Home Medications 03/28/25 03/28/25 History Allergies Allergy/AdvReac Type Severity Reaction Status Date / Time No Known Allergies Allergy Verified 03/29/25 14:17 Exam Vital Signs Temp Pulse Resp BP Pulse Ox O2 Del Method O2 Flow Rate 98.1 F 87 19 106/64 98 Nasal Cannula 2 03/31/25 08:00 03/31/25 09:26 03/31/25 08:00 03/31/25 09:26 03/31/25 08:00 03/31/25 08:00 03/31/25 08:00 FiO2 93 03/29/25 10:27 Constitutional Constitutional: no acute distress Routine Extremities Exam Comments: He had right BKA with some skin necrosis of BKA stump. His entire left foot is gangrenous and multiple patchy area of skin necrosis of his left lower extremity and his left knee Assessment & Plan Additional Assessment Additional comments: Left foot gangrene Plan Will plan for left below the knee amputation tomorrow. Risks include but not limited to infection, bleeding, injury to neurovascular structures, chronic nonhealing wound, stump infection and or necrosis, possible need for future amputation discussed with the patient and his daughter. Benefits and alternatives explained to them, all their questions answered, they agreed and consented to proceed with the operation.
--- NOTE | 2025-03-31 12:02 | PD.RESPRO ---
Documentation for date of: 03/31/25 Subjective Subjective Interval history: Mr. Mcclain is a 49-year-old male with past medical history of type 2 diabetes mellitus, hypertension, end-stage renal disease (HD ), HFpEF (EF 50 to 55% 02/2025) and right BKA due to osteomyelitis who was brought in by ambulance to [facility] emergency department on 03/14/2025 with a chief complaint of altered mental status. Patient was intubated secondary to inability to protect airway. On presentation patient's assisted with procuring history, per patient's patient had progressive shortness of breath and had change in mentation, patient was found to be in SVT when EMS arrived was shocked once and was converted to sinus rhythm. Patient also had to get additional sessions of hemodialysis due to increase in weight, last session of hemodialysis before admission to the hospital was on 12 March 2025. Patient also does have history of methamphetamine use, urine tox screen was positive for methamphetamine and marijuana on presentation. With the progression of hospital course patient was initially managed in the intensive care unit for acute hypoxic respiratory failure was found to have stenotrophomonas maltophilia pneumonia was treated with IV antibiotics, had significant lactic acidosis respiratory acidosis and high anion gap metabolic acidosis which improved in ICU patient did require CRRT and was eventually transition to hemodialysis, patient was eventually extubated on downgraded to telemetry on 03/20/2025. Patient's hospital stay is further complicated with possible acute versus chronic limb ischemia and underlying severe peripheral vascular disease, pipe coremaker discussed case with vascular surgeon at [facility] during the hospitalization, patient was a poor candidate for revascularization per documentation. Patient started on amiodarone for underlying atrial fibrillation and eventually infectious disease consulted for Staph haemolyticus bacteremia possible CLABSI. Patient continue to receive inpatient hemodialysis. 03/25/2025: Patient successfully completed 3 hours 4 minutes of dialysis session today, postdialysis weight 115.9 kg was hypotensive at times during the dialysis, tolerated dialysis well through the temporary dialysis catheter. Net fluid removed 0.5 L. Blood pressure was soft, received 2 bags of albumin during the dialysis session.Patient will need permanent dialysis catheter placement, will be scheduled with interventional radiology in a.m. after holding aspirin and Plavix. Patient will be made n.p.o. after midnight by primary team. 03/26/2025: Patient seen and examined at bedside, patient had permanent tunneled dialysis catheter placed today. Currently complains of some back pain. Patient will continue to receive IV antibiotics until 04/05/2025 with hemodialysis. Otherwise patient is stable, has no current complaints. Anticipate discharge in next 24 hours on supplemental oxygen. 03/27/2025:Patient received dialysis treatment today, completed about 2 hours of dialysis session, about 1.1 L fluid removed, postdialysis weight 115 kg, was administered 100 mL albumin during the dialysis session for low blood pressure, patient did receive alteplase through the indwelling catheter x 1. Primary team discussed the case with patient and patient's family, patient has been requiring an extensive amount of IV pain medication, further plan by primary team is to discharge patient to residential facility and not on hospice as patient does not have underlying clear etiology for hospice. Patient's DAPT being held, cardiology following the case and patient may undergo angiogram heart, bilateral upper and lower extremities on Saturday. 03/28/2025: Patient continues to complain of pain, patient's gabapentin changed to pregabalin 25 twice daily and [place] was increased to 7.5 mg. Patient Aspirin and Plavix being held, patient going to undergo cardiac angiogram and angiogram upper and lower extremities likely in the morning. Will coordinate with cardiology. 03/29/2025: Labs and Vitals reviewed. Patient scheduled for Procedure with Cardiology Today, will plan for dialysis pot procedure after discussion with Cardiology Team, otherwise patient is stable, has no current complains. Pregabalin dose adjusted by primrary team. 03/30/2025: Patient received dialysis treatment today, received dialysis for 3 hours 6-minute, about 2 L fluid removed, postdialysis weight 112.3, patient was administered 100 mL of albumin during dialysis. Patient had his angiogram done yesterday showed right ulnar artery to be totally occluded or absent and there was no CAD. Cardiology recommended to stop patient's aspirin, Plavix, metoprolol, and statin and they also started the patient on diltiazem. They also recommended to get general surgery for possible amputation and to start Eliquis 2.5 mg twice daily after the patient has surgery. Will consult general surgery for possible amputation. 03/31/2025: Patient seen and examined at bedside, labs and vitals reviewed. Patient received dialysis yesterday, patient is being evaluated by general surgery for possible amputation. Otherwise has no current complaints, reports no new concerns. Exam Vital Signs Temp Pulse Resp BP Pulse Ox O2 Del Method O2 Flow Rate 98.1 F 87 19 106/64 98 Nasal Cannula 2 03/31/25 08:00 03/31/25 09:26 03/31/25 08:00 03/31/25 09:26 03/31/25 08:00 03/31/25 08:00 03/31/25 08:00 FiO2 93 03/29/25 10:27 Narrative Exam General: AO x 3, no acute distress Eyes: Pupils reactive to light, EOMI, vision intact Ears: No visible ear discharge Nose: No visible nasal discharge. Mouth/Throat: Moist mucous membranes, no redness, no lesions. Neck: Neck supple, no cervical lymphadenopathy. Lungs: Clear CHRISTIANO Cardio: Normal S1/S2, irregular, no murmurs, no JVD Abdomen: Soft, non-tender, no palpable masses, peristalsis present, no guarding or rebound Extremities: Right BKA with cyanotic changes at the stump still present and is tender, left foot demarcated purplish discoloration and necrotic changes in toes unchanged, right upper extremity 2nd and 3rd digits show necrotic changes at the tips. Skin: Right 2nd and 3rd upper extremity digits show necrotic changes at the tips with some bullae at the rest of the digit, Left foot discoloration, bullae, and necrotic changes in toes. Neuro: No focal neurological deficits, motor and sensory intact. Objective Labs 04/05/25 05:42 04/05/25 05:42 Labs: Laboratory Results - last 24 hr 03/31/25 03/31/25 05:42 09:01 WBC 5.4 RBC 2.16 L Hgb 6.8 L* 7.2 L Hct 22.9 L 23.5 L MCV 106 H MCH 31.5 MCHC 29.7 L RDW Std Deviation 62.4 H Plt Count 139 L Neut % (Auto) 62 Lymph % (Auto) 19 [place] % (Auto) 17 H Eos % (Auto) 1 Baso % (Auto) 1 Neut # (Auto) 3.3 Lymph # (Auto) 1.0 [place] # (Auto) 0.9 H Eos # (Auto) 0.0 Baso # (Auto) 0.0 Immature Gran # (Auto) 0.10 H Absolute Nucleated RBC 0.00 Immature Gran % 2 H Nucleated RBC % 0 Sodium 136 Potassium 5.1 Chloride 100 Carbon Dioxide 26.8 Anion Gap 9 BUN 61 H Creatinine 5.6 H* D Estim Creat Clear Calc 20.5 L eGFR 12 L* BUN/Creatinine Ratio 11 L Glucose 96 Calculated Osmolality 289 Calcium 7.8 L Corrected Calcium 8.4 L Total Bilirubin 0.4 AST 13 ALT 48 Alkaline Phosphatase 108 Total Protein 6.1 Albumin 3.2 L Globulin 2.9 Albumin/Globulin Ratio 1.1 L Random Vancomycin 17.2 ABG Interpretation ABG results: 03/14/25 03/14/25 03/14/25 14:44 16:44 18:53 ABG pH 7.03 L* 7.04 L* 7.10 L* ABG pCO2 43 50 H 46 ABG pO2 86 128 H D 57 L* D ABG HCO3 11 L 13 L 14 L ABG O2 Saturation 91 97 78 L ABG Base Excess -19 L -17 L -15 L VBG pH VBG pCO2 VBG pO2 VBG Base Excess 03/14/25 03/15/25 03/15/25 21:20 05:07 12:28 ABG pH 7.21 L D 7.41 D ABG pCO2 32 D 31 L ABG pO2 116 H D 74 L D ABG HCO3 13 L 20 ABG O2 Saturation 97 95 ABG Base Excess -14 L -4 L VBG pH 7.43 VBG pCO2 34 L VBG pO2 37 VBG Base Excess -1 03/16/25 03/16/25 03/16/25 04:51 11:48 19:30 ABG pH 7.46 H 7.22 L D 7.38 D ABG pCO2 29 L 66 H D 48 D ABG pO2 78 L 79 L 236 H D ABG HCO3 21 27 H 29 H ABG O2 Saturation 96 91 100 H ABG Base Excess -2 -2 3 VBG pH VBG pCO2 VBG pO2 VBG Base Excess 03/17/25 03/18/25 03/19/25 04:53 09:27 04:46 ABG pH 7.38 7.35 ABG pCO2 49 H 48 ABG pO2 78 L D 92 ABG HCO3 29 H 26 ABG O2 Saturation 95 98 ABG Base Excess 3 0 VBG pH 7.34 VBG pCO2 54 D VBG pO2 34 VBG Base Excess 2 03/24/25 22:00 ABG pH 7.33 L ABG pCO2 48 ABG pO2 233 H ABG HCO3 25 ABG O2 Saturation 101 H ABG Base Excess -1 VBG pH VBG pCO2 VBG pO2 VBG Base Excess Quality Measures Quality Measures VTE prophylaxis Assessment & Plan Assessment Current Active Medications: Generic Name Dose Route Start Last Admin Trade Name Freq PRN Reason Stop Dose Admin Acetaminophen 650 mg 03/20/25 11:35 03/21/25 06:39 Acetaminophen 325 Mg Tablet PO 04/19/25 11:34 650 mg Q6HR PRN Administration pain and Fever >100.4 Protocol Hydrocodone Bitart/Acetaminophen 1 tab 03/28/25 08:32 03/31/25 11:20 Hydrocodone/Apap 7.5/325 Tablet PO 04/02/25 08:31 1 tab Q6HR PRN Administration PAIN SCALE 4-6 (Moderate Amiodarone HCl 200 mg 03/19/25 21:00 03/31/25 09:26 Amiodarone Hcl 200 Mg Tablet GT 04/18/25 20:59 200 mg BID MONTSERRAT Administration Dextrose 25 ml 03/14/25 20:38 03/20/25 23:30 Dextrose 50%-Water Inj 50 Ml Syringe IV 04/13/25 20:37 25 ml Q15MIN PRN Administration BG 50-70 responsive npo pt Dextrose 50 ml 03/14/25 20:38 Dextrose 50%-Water Inj 50 Ml Syringe IV 04/13/25 20:37 Q15MIN PRN BG <50 OR BG <70 & pt unresponsive Diltiazem HCl 120 mg 03/30/25 09:00 03/31/25 09:25 Diltiazem Cd 120 Mg Capcr PO 04/29/25 08:59 120 mg QDAY MON[place] Administration Glucagon 1 mg 03/14/25 17:36 Glucagon Inj 1 Mg Vial IM Q15MIN PRN BG <70, and no IV access Heparin Sodium (Porcine) 5,000 unit 03/23/25 21:00 03/31/25 09:25 Heparin Sod Inj 5000 Unit/Ml Vial SC 04/06/25 20:59 5,000 unit Q12HR MONTSERRAT Administration Heparin Sodium (Porcine) 3,800 unit 03/30/25 08:26 03/30/25 11:38 Heparin Sod Inj 1000 Unit/Ml Vial 10 Ml INDWELLCAT 04/13/25 08:25 3,800 unit PRN PRN Administration DIALYSIS Hydromorphone HCl 0.5 mg 03/30/25 17:09 03/31/25 07:53 Hydromorphone Inj 2 Mg/Ml Vial IVP 04/01/25 08:44 0.5 mg Q6H PRN Administration SEVERE PAIN 7-10 Insulin Human Lispro 0 unit 03/22/25 11:30 03/31/25 11:29 Insulin Lispro (Admelog) 1 Unit/0.01 Ml Unit SC 04/21/25 11:29 Not Given ACHS MONTSERRAT Protocol Levalbuterol HCl 0.31 mg 03/28/25 10:24 03/31/25 00:37 Levalbuterol Rt 0.31 Mg/3 Ml Nebu INH 04/19/25 12:14 0.31 mg Q6HRRT PRN Administration Wheezing Midodrine 10 mg 03/19/25 18:19 Midodrine 5 Mg Tablet GT 04/18/25 21:59 TID PRN MAP below 65 Ondansetron HCl 4 mg 03/14/25 17:31 03/30/25 01:39 Ondansetron Inj 2 Mg/Ml Inj 2 Ml IV 04/13/25 17:30 4 mg Q6H PRN Administration NAUSEA OR VOMITING Protocol Pantoprazole Sodium 40 mg 03/31/25 09:00 03/31/25 09:25 Pantoprazole Inj 40 Mg Vial IVP 04/30/25 08:59 40 mg QDAY [place] Administration Pharmacy Consult 1 each 03/27/25 08:44 Vancomycin Pharmacy To Dose 1 Each Each IV 04/23/25 16:59 QDAY PRN CONSULT Polyethylene Glycol 17 gm 03/26/25 18:00 03/31/25 09:25 Polyethylene Glycol 17 Gm Packet PO 04/25/25 17:59 17 gm QDAY MON[place]ERR[place] Administration Pregabalin 50 mg 03/29/25 21:00 03/31/25 09:27 Pregabalin 25 Mg Capsule PO 04/28/25 20:59 50 mg BID MONTSERRAT Administration Sennosides 1 tab 03/26/25 18:00 03/31/25 09:25 Senna Tablet PO 04/25/25 17:59 1 tab QDAY MONTSERRAT Administration Protocol Sodium Chloride 3 ml 03/31/25 06:26 Sodium Cl Rt Marjorie 3% 4 Ml Nebu (Non-Formulary) INH 04/16/25 18:59 Q6HRRT PRN To induce cough Plan Assessment and Plan: Summary: Mr. Mcclain is a 49 years old male with PMH of DM2, hypertension, ESRD (HD ), HFpEF (EF 55% on 2021), and right BKA due to osteomyelitis BIBA to the ED due to AMS, was intubated and started on pressors and was admitted to the ICU on 03/14/2025 for management of shock of unknown etiology and was started on IV antibiotics. On 03/17 his sputum culture grew stenotrophomonas maltophilia and antibiotics were changed to levofloxacin. He was extubated and downgraded to telemetry on 03/20/2025 for continuation of care. # End-stage renal disease Patient received CRRT in intensive care unit, was transition to hemodialysis. Patient will need a line holiday and placement of due to underlying bacteremia. Primary team to hold aspirin and Plavix, catheter will be exchanged in a.m. possibly Patient received permanent tunneled dialysis catheter placement on 03/26/2025. Plan: - Continue with hemodialysis inpatient - Avoid nephrotoxic agents. - Renally dose medications. #Staph Hemolyticus bacteremia #CLABSI Patient tested for gram-positive cocci (staph hymolyticus ) 2/ blood blood cultures on 03/21/2025 -Mx as per primrary team #Acute blood loss Anemia #Hematemesis. #Macrocytic anemia. #Thrombocytopenia. Hemoglobin 7.9, RBC 2.48, hematocrit 25%, MCV 101, platelets 131 today - Management as per primary team #HFrEF (EF 50-55% on 2024) #A-fib with RVR, rate controlled, MAT, SVT #Troponinemia - resolved Patient had improved ejection fraction compared to the echocardiogram from a week ago, cardiology is consulted. - Management as per primary team and cardiology #Possible acute vs chronic limb ischemia. #Peripheral Vascular disease, severe Patient has severe vascular disease, case was discussed by ICU team with a vascular surgeon at [facility] Patient is poor candidate for surgery per documentation Patient was evaluated by route delivery service driver had cardiac catheterization and upper and lower extremity angiogram done. Per cardiology patient has disease in right lower limb, otherwise no significant PAD noted. Cardiology recommends amputation by general surgery orthopedics consulted as well #Acute hypoxic respiratory failure, improved. #Stenotrophomonas maltophilia pneumonia. #Respiratory acidosis, resolved. #Septic shock, resolved. - Management as per primary team #Transaminitis. #Hyperbilirubinemia #Hepatomegaly. #Hx of DM2. #Hypoglycemia, resolved. -Management per primary team Case discussed with Attending Dr. Pleitez. Marycarmen Clark PGY1 Disclaimer: This note was dictated by speech recognition. Minor errors in chief lock operator may be present due to voice recognition software. Attending Provider Attestation/Addendum Pt is seen and examined. Labs and investigations are reviewed. Agree witth assessment and plan by resident. agree with findings. Héctor Pleitez MD
--- NOTE | 2025-03-31 12:30 | ESPR_ITS ---
<Statement entered by Mindy Hawthorne MD - 04/01/25 00:29> Patient seen and examined at bedside. No acute overnight events reported. Patient's labs have been stable, and patient is scheduled to have left BKA tomorrow with general surgery. Orthopedic surgery was consulted and will evaluate patient's upper extremity digits for possible amputation. Will increase patient's pregabalin to 50 mg 3 times daily. Patient will continue with IV vancomycin until 04/05/2025. Status post surgeries, patient will go to shelter facility for acute rehab. I discussed with and supervised the medical assistant internal medicine physician who took care of this patient. I personally saw and examined the patient and discussed the assessment and plan with the entire medicine team, including my attending Dr. Moore, I agree with most of the assessment and plan as documented below Mindy Hawthorne M.D. PGY-2 Disclaimer: Despite multiple revisions, due to the dictation software being used, the document bellow may not be free of grammatical errors including phonetic/typographic errors. However, this does not deter from our commitment to providing health care in the patient's best interest in mind. Documentation for date of: 03/31/25 Subjective Subjective Interval history: Patient was seen and examined at bedside this am. No acute overnight events. General surgeon saw patient today and plans for BKA of L LE tomorrow. Orthopedic surgeon will also evaluate patient for possible amputation of UE digits. Will change pregabalin to 50mg TID. Exam Vital Signs Temp Pulse Resp BP Pulse Ox O2 Del Method O2 Flow Rate 98.1 F 87 16 106/64 96 Nasal Cannula 2 03/31/25 08:00 03/31/25 09:26 03/31/25 08:10 03/31/25 09:26 03/31/25 08:10 03/31/25 08:00 03/31/25 08:10 FiO2 93 03/29/25 10:27 Narrative Exam General: AO x 3, no acute distress Eyes: Pupils reactive to light, EOMI, vision intact Ears: No visible ear discharge Nose: No visible nasal discharge. Mouth/Throat: Moist mucous membranes, no redness, no lesions. Neck: Neck supple, no cervical lymphadenopathy. Lungs: Clear CHRISTIANO Cardio: Normal S1/S2, irregular, no murmurs, no JVD Abdomen: Soft, non-tender, no palpable masses, peristalsis present, no guarding or rebound Extremities: Right BKA with cyanotic changes at the stump still present and is tender, left foot demarcated purplish discoloration and necrotic changes in toes unchanged, right upper extremity 2nd and 3rd digits show necrotic changes at the tips. Skin: Right 2nd and 3rd upper extremity digits show necrotic changes at the tips with some bullae at the rest of the digit, Left foot discoloration, bullae, and necrotic changes in toes. Neuro: No focal neurological deficits, motor and sensory intact. Objective Labs 03/31/25 09:01 03/31/25 05:42 Labs: Laboratory Results - last 24 hr 03/31/25 03/31/25 05:42 09:01 WBC 5.4 RBC 2.16 L Hgb 6.8 L* 7.2 L Hct 22.9 L 23.5 L MCV 106 H MCH 31.5 MCHC 29.7 L RDW Std Deviation 62.4 H Plt Count 139 L Neut % (Auto) 62 Lymph % (Auto) 19 [place] % (Auto) 17 H Eos % (Auto) 1 Baso % (Auto) 1 Neut # (Auto) 3.3 Lymph # (Auto) 1.0 [place] # (Auto) 0.9 H Eos # (Auto) 0.0 Baso # (Auto) 0.0 Immature Gran # (Auto) 0.10 H Absolute Nucleated RBC 0.00 Immature Gran % 2 H Nucleated RBC % 0 Sodium 136 Potassium 5.1 Chloride 100 Carbon Dioxide 26.8 Anion Gap 9 BUN 61 H Creatinine 5.6 H* D Estim Creat Clear Calc 20.5 L eGFR 12 L* BUN/Creatinine Ratio 11 L Glucose 96 Calculated Osmolality 289 Calcium 7.8 L Corrected Calcium 8.4 L Total Bilirubin 0.4 AST 13 ALT 48 Alkaline Phosphatase 108 Total Protein 6.1 Albumin 3.2 L Globulin 2.9 Albumin/Globulin Ratio 1.1 L Random Vancomycin 17.2 ABG Interpretation ABG results: 03/14/25 03/14/25 03/14/25 14:44 16:44 18:53 ABG pH 7.03 L* 7.04 L* 7.10 L* ABG pCO2 43 50 H 46 ABG pO2 86 128 H D 57 L* D ABG HCO3 11 L 13 L 14 L ABG O2 Saturation 91 97 78 L ABG Base Excess -19 L -17 L -15 L VBG pH VBG pCO2 VBG pO2 VBG Base Excess 03/14/25 03/15/25 03/15/25 21:20 05:07 12:28 ABG pH 7.21 L D 7.41 D ABG pCO2 32 D 31 L ABG pO2 116 H D 74 L D ABG HCO3 13 L 20 ABG O2 Saturation 97 95 ABG Base Excess -14 L -4 L VBG pH 7.43 VBG pCO2 34 L VBG pO2 37 VBG Base Excess -1 03/16/25 03/16/25 03/16/25 04:51 11:48 19:30 ABG pH 7.46 H 7.22 L D 7.38 D ABG pCO2 29 L 66 H D 48 D ABG pO2 78 L 79 L 236 H D ABG HCO3 21 27 H 29 H ABG O2 Saturation 96 91 100 H ABG Base Excess -2 -2 3 VBG pH VBG pCO2 VBG pO2 VBG Base Excess 03/17/25 03/18/25 03/19/25 04:53 09:27 04:46 ABG pH 7.38 7.35 ABG pCO2 49 H 48 ABG pO2 78 L D 92 ABG HCO3 29 H 26 ABG O2 Saturation 95 98 ABG Base Excess 3 0 VBG pH 7.34 VBG pCO2 54 D VBG pO2 34 VBG Base Excess 2 03/24/25 22:00 ABG pH 7.33 L ABG pCO2 48 ABG pO2 233 H ABG HCO3 25 ABG O2 Saturation 101 H ABG Base Excess -1 VBG pH VBG pCO2 VBG pO2 VBG Base Excess Quality Measures Quality Measures VTE prophylaxis Assessment & Plan Assessment Current Active Medications: Generic Name Dose Route Start Last Admin Trade Name Freq PRN Reason Stop Dose Admin Acetaminophen 650 mg 03/20/25 11:35 03/21/25 06:39 Acetaminophen 325 Mg Tablet PO 04/19/25 11:34 650 mg Q6HR PRN Administration pain and Fever >100.4 Protocol Hydrocodone Bitart/Acetaminophen 1 tab 03/28/25 08:32 03/31/25 11:20 Hydrocodone/Apap 7.5/325 Tablet PO 04/02/25 08:31 1 tab Q6HR PRN Administration PAIN SCALE 4-6 (Moderate Amiodarone HCl 200 mg 03/19/25 21:00 03/31/25 09:26 Amiodarone Hcl 200 Mg Tablet GT 04/18/25 20:59 200 mg BID MON[place]ERRAT Administration Dextrose 25 ml 03/14/25 20:38 03/20/25 23:30 Dextrose 50%-Water Inj 50 Ml Syringe IV 04/13/25 20:37 25 ml Q15MIN PRN Administration BG 50-70 responsive npo pt Dextrose 50 ml 03/14/25 20:38 Dextrose 50%-Water Inj 50 Ml Syringe IV 04/13/25 20:37 Q15MIN PRN BG <50 OR BG <70 & pt unresponsive Diltiazem HCl 120 mg 03/30/25 09:00 03/31/25 09:25 Diltiazem Cd 120 Mg Capcr PO 04/29/25 08:59 120 mg QDAY [place] Administration Glucagon 1 mg 03/14/25 17:36 Glucagon Inj 1 Mg Vial IM Q15MIN PRN BG <70, and no IV access Heparin Sodium (Porcine) 5,000 unit 03/23/25 21:00 03/31/25 09:25 Heparin Sod Inj 5000 Unit/Ml Vial SC 04/06/25 20:59 5,000 unit Q12HR MON[place]AT Administration Heparin Sodium (Porcine) 3,800 unit 03/30/25 08:26 03/30/25 11:38 Heparin Sod Inj 1000 Unit/Ml Vial 10 Ml INDWELLCAT 04/13/25 08:25 3,800 unit PRN PRN Administration DIALYSIS Hydromorphone HCl 0.5 mg 03/30/25 17:09 03/31/25 07:53 Hydromorphone Inj 2 Mg/Ml Vial IVP 04/01/25 08:44 0.5 mg Q6H PRN Administration SEVERE PAIN 7-10 Insulin Human Lispro 0 unit 03/22/25 11:30 03/31/25 11:29 Insulin Lispro (Admelog) 1 Unit/0.01 Ml Unit SC 04/21/25 11:29 Not Given ACHS [facility] Protocol Levalbuterol HCl 0.31 mg 03/28/25 10:24 03/31/25 00:37 Levalbuterol Rt 0.31 Mg/3 Ml Nebu INH 04/19/25 12:14 0.31 mg Q6HRRT PRN Administration Wheezing Midodrine 10 mg 03/19/25 18:19 Midodrine 5 Mg Tablet GT 04/18/25 21:59 TID PRN MAP below 65 Ondansetron HCl 4 mg 03/14/25 17:31 03/30/25 01:39 Ondansetron Inj 2 Mg/Ml Inj 2 Ml IV 04/13/25 17:30 4 mg Q6H PRN Administration NAUSEA OR VOMITING Protocol Pantoprazole Sodium 40 mg 03/31/25 09:00 03/31/25 09:25 Pantoprazole Inj 40 Mg Vial IVP 04/30/25 08:59 40 mg QDAY [place] Administration Pharmacy Consult 1 each 03/27/25 08:44 Vancomycin Pharmacy To Dose 1 Each Each IV 04/23/25 16:59 QDAY PRN CONSULT Polyethylene Glycol 17 gm 03/26/25 18:00 03/31/25 09:25 Polyethylene Glycol 17 Gm Packet PO 04/25/25 17:59 17 gm QDAY [place] Administration Pregabalin 50 mg 03/29/25 21:00 03/31/25 09:27 Pregabalin 25 Mg Capsule PO 04/28/25 20:59 50 mg BID MON[place]ERRAT Administration Sennosides 1 tab 03/26/25 18:00 03/31/25 09:25 Senna Tablet PO 04/25/25 17:59 1 tab QDAY MON[place]AT Administration Protocol Sodium Chloride 3 ml 03/31/25 06:26 Sodium Cl Rt Marjorie 3% 4 Ml Nebu (Non-Formulary) INH 04/16/25 18:59 Q6HRRT PRN To induce cough Plan 49-year-old male with past medical history of DM2, hypertension, ESRD (HD ), HFpEF (EF 55% on 2021), and right BKA due to osteomyelitis was admitted to the ICU on 03/14/2025 for acute hypoxic respiratory failure, acute encephalopathy, and shock. He was extubated and downgraded to telemetry on 03/20/2025. #Staph Hemolyticus bacteremia #CLABSI Patient grew Staphylococcus hemolyticus from blood cultures on 03/21/2025 Repeat blood cultures on 03/14/2025 have been negative for the past 48 hours Repeat echo did not show any vegetations Central line and dialysis catheter removed 03/25/2025 New tunneled catheter placed 03/26/2025 No spikes in fever or WBC Plan: Continue Vancoymycin 03/23- 04/05 Consulted infectious disease, appreciate recommendations #A-fib with RVR, rate controlled #MAT #SVT Patient again went into SVT last night and was shocked again, but on repeat EKG showed to be in A-fib RVR. Patient again went into SVT and received adenosine 6mg x1 and adenosine 12mg x1 before being cardioverted. Repeat EKG showed what appears to be MAT. [id number] score of 3 points indicating 3.2% risk of stroke per year HAS-BLED score of 5 points Patient had his angiogram done yesterday showed right ulnar artery to be totally occluded or absent and there was no CAD. Cardiology recommended to stop patient's aspirin, Plavix, metoprolol, and statin Plan: Continue amiodarone 200mg BID Continue diltiazem CD 120 mg daily No anticoagulation until patient gets amputation Keep Potassium >4 and Mg >2 Web Content Producer consulted, appreciate recommendations #Possible acute vs chronic limb ischemia. #Right ulnar artery occlusion #Peripheral Vascular disease, severe Abdomen CTA with runoff that showed occlusion of multiple arteries including the left radial, gluteal, and tibial arteries as well as 90% stenosis of the left superficial femoral artery Also showed 80% stenosis of right superficial femoral artery. Overnight ICU team spoke with vascular surgeon at [facility] who stated that at this time patient was not a candidate for transfer for revascularization. Patient understands that he may lose multiple digits and even his left lower foot. Patient had his angiogram done yesterday showed right ulnar artery to be totally occluded or absent and there was no CAD. Cardiology recommended to stop patient's aspirin, Plavix, metoprolol, and statin Patient may require amputation hospital, will get recommendations from general surgery. Plan: Nitroglycerin topical ointment. [place] 7.5/325 q6h prn and Dilaudid 0.5mg q6h prn Pregabalin increase to 50mg TID General Surgery consulted, per recommendations Orthopedic Surgery consulted, per recommendations Pt will need outpatient follow up with vascular surgeon #Acute hypoxic respiratory failure, improved. #Stenotrophomonas maltophilia pneumonia. #Respiratory acidosis, resolved. #Septic shock, resolved. Intubated on 03/14/2025. Sputum grew stenotrophomonas maltophilia. Extubated on 03/20/2025. Zosyn 03/14/2025-03/17/2025 Vancomycin 03/14/2025 - 03/15/2025. Discontinued levaquin 500mg q48hr 03/17/2025- 03/21 Plan: Patient will need to have a walk test prior to O2 delivery to home Midodrine 10mg TID as needed. #Troponinemia, resolved Troponins peaked at 7.899 and down trended to 7.04. Echo 03/16/2025 showed EF of 45 to 50% and septal dyskinesis. Echo on 03/23/2025 shows some improvement and left ventricle function with an EF of 50 to 55% Patient had his angiogram done yesterday showed right ulnar artery to be totally occluded or absent and there was no CAD. Cardiology recommended to stop patient's aspirin, Plavix, metoprolol, and statin Plan: Cardiology consulted, appreciate recommendations. #HFpEF (EF 50-55% on 2024). Echo on 03/16/2025 showed EF of 45 to 50% and septal dyskinesis. Echo on 03/23/2025 shows some improvement and left ventricle function with an EF of 50 to 55% Plan: Will continue with hemodialysis with fluid removal. Daily weights. Strict JENN's. fluid restriction. #ESRD (HD on ). #HAGMA, resolved. #Lactic acidosis, resolved. Patient was on hemodialysis and had AV fistula, but was clotted therefore cannot be used. Tunnedled dialysis cath placed 03/26/2025 Plan: Continue hemodialysis as scheduled. Crepe Laminator Operator Dr. Pleitez following, appreciate recommendations Avoid nephrotoxic agents. Renally dose medications. #Hematemesis. #Macrocytic anemia. #Thrombocytopenia. Patient's hemoglobin was downtrending from 11.9 on admission Hemoglobin 7.2 and platelets 139 No active signs of bleeding Plan: Continue to monitor daily CBC Transfuse if Hgb less than 7. #Transaminitis, improving #Hyperbilirubinemia, resolved #Hepatomegaly. Possible liver failure due to methamphetamine use? Could be due to shock liver versus hypoxia versus drug-induced. Hepatitis panel negative and abdominal ultrasound that shows some hepatomegaly with possible cirrhosis versus hepatocellular disease. Plan: Continue monitoring daily labs #Hx of DM2. ISS. Hypoglycemia protocol ordered. Hospital Maintenance: Disposition: Pending amputation of LLE and possibly UE digits. Diet: renal diet DVT ppx: Heparin 5000 SC Q12H GI ppx: Protonix IV. Code status: DNR. Case disclosed with Attending Dr. Moore and my senior Dr. Marine Lee PGY1 Attending Provider Attestation/Addendum I have discussed and was present for the essential components of the history, physical examination, diagnosis, and treatment plan with the resident. I agree with the patient's care as documented by the resident and amended herein by me. Collin Moore, DO. Patient seen and evaluated this AM. No acute events overnight, vital signs stable, patient afebrile, hemoglobin 6.8 however repeat was 7.2, patient has been trending very low. Significant labs include a sodium 136, potassium 5.1, BUN 61 and creatinine 5.6. Will continue vancomycin until 04/05, as far as the patient's gangrene is concerned on his upper and lower extremities, will plan for BKA of the left leg tomorrow with Dr. Spann, orthopedic surgery consulted to evaluate gangrene of the upper extremities, namely the digits of the right left hand, appreciate recommendations. Will continue to monitor closely. Although this document has been carefully reviewed, there may still be some phonetic and other typographical errors. These errors are purely grammatical due to imperfections in the software program and should not be construed in any way to compromise the substance of the patient's medical care during this visit.
--- NOTE | 2025-03-31 15:50 | PC.SS ---
SS follow up note; SS was contacted by Karl from [facility], she informed SS that patient's IPA was [place]jel[place] in which their facility was not contracted with that insurance. SS followed up with [facility] who was the other facility that had accepted patient and Symone informed SS that they are contracted with that insurance. SS met with patient and updated him and informed him that [facility] was not able to accept his insurance. Patient agreeable to discharge to [facility] when medically cleared. SS informed Symone that patient was pending Surgery and after surgery was completed PT would re-evaluate patient and SS would sent PT notes for [facility] to submit for auth. SS will stand by for further needs.
[2025-03-31 16:59] LABS: Path Review Blood Smear Sent to Pathologist
--- NOTE | 2025-03-31 17:06 | ESPR_ITS ---
<Statement entered by Yanci Villalobos MD - 04/01/25 08:43> The patient is personally evaluated by me has a history of multiple problems NSTEMI due to sepsis initially but did not have any myocardial infarction coronary arteries were patent femoral arteries were patent anterior posterior tibial arteries are patent distal vessels are occluded dorsalis pedis on the left side will require amputation discussed with surgeon Dr. Spann who will be performing the surgery is low risk for surgery given cardiac clearance. Documentation for date of: 03/31/25 Subjective Subjective Interval history: Patient was seen and examined at bedside. No acute overnight events. Patient was evaluated by general surgery Dr Spann who will plan to do the below-knee amputation. Hold Eliquis for now. Will continue current management and monitor patient. Exam Vital Signs Temp Pulse Resp BP Pulse Ox O2 Del Method O2 Flow Rate 97.3 F 85 15 106/70 96 Nasal Cannula 2 03/31/25 16:00 03/31/25 16:00 03/31/25 16:00 03/31/25 16:00 03/31/25 16:00 03/31/25 16:00 03/31/25 16:00 FiO2 93 03/29/25 10:27 Narrative Exam Gen: Well-developed male not in distress. HEENT: NCAT, PERRLA, EOMI, MMM, anicteric conjunctivae. CVS: normal S1 and S2. RRR. No M/R/G. Resp: CTA B/L. No rhonchi, rales, crackles or wheezing. Abd: soft, non-tender, non-distended. BS+ in all 4 quadrants. Bilateral flank pitting edema. MSK: S/p right BKA, stump appears necrotic, right thigh has blister. Left foot is purplish discoloration, significantly swollen, necrotic changes in toes. 3+ pitting edema LLE. Dry gangrene over right 2nd and 3rd digits. Tip of left second digit appears necrotic. Neuro: CN II-XII grossly intact. Alert and oriented x3. Psych: appropriate mood and affect. Objective Labs 03/31/25 09:01 03/31/25 05:42 Labs: Laboratory Results - last 24 hr 03/31/25 03/31/25 03/31/25 05:42 09:01 16:06 WBC 5.4 RBC 2.16 L Hgb 6.8 L* 7.2 L Hct 22.9 L 23.5 L MCV 106 H MCH 31.5 MCHC 29.7 L RDW Std Deviation 62.4 H Plt Count 139 L Neut % (Auto) 62 Lymph % (Auto) 19 Tate % (Auto) 17 H Eos % (Auto) 1 Baso % (Auto) 1 Neut # (Auto) 3.3 Lymph # (Auto) 1.0 Tate # (Auto) 0.9 H Eos # (Auto) 0.0 Baso # (Auto) 0.0 Immature Gran # (Auto) 0.10 H Absolute Nucleated RBC 0.00 Immature Gran % 2 H Nucleated RBC % 0 Smear Path Review Sent to Pathologist Sodium 136 Potassium 5.1 Chloride 100 Carbon Dioxide 26.8 Anion Gap 9 BUN 61 H Creatinine 5.6 H* D Estim Creat Clear Calc 20.5 L eGFR 12 L* BUN/Creatinine Ratio 11 L Glucose 96 Calculated Osmolality 289 Calcium 7.8 L Corrected Calcium 8.4 L Total Bilirubin 0.4 AST 13 ALT 48 Alkaline Phosphatase 108 Total Protein 6.1 Albumin 3.2 L Globulin 2.9 Albumin/Globulin Ratio 1.1 L Random Vancomycin 17.2 Crossmatch See Detail ABG Interpretation ABG results: 03/14/25 03/14/25 03/14/25 14:44 16:44 18:53 ABG pH 7.03 L* 7.04 L* 7.10 L* ABG pCO2 43 50 H 46 ABG pO2 86 128 H D 57 L* D ABG HCO3 11 L 13 L 14 L ABG O2 Saturation 91 97 78 L ABG Base Excess -19 L -17 L -15 L VBG pH VBG pCO2 VBG pO2 VBG Base Excess 03/14/25 03/15/25 03/15/25 21:20 05:07 12:28 ABG pH 7.21 L D 7.41 D ABG pCO2 32 D 31 L ABG pO2 116 H D 74 L D ABG HCO3 13 L 20 ABG O2 Saturation 97 95 ABG Base Excess -14 L -4 L VBG pH 7.43 VBG pCO2 34 L VBG pO2 37 VBG Base Excess -1 03/16/25 03/16/25 03/16/25 04:51 11:48 19:30 ABG pH 7.46 H 7.22 L D 7.38 D ABG pCO2 29 L 66 H D 48 D ABG pO2 78 L 79 L 236 H D ABG HCO3 21 27 H 29 H ABG O2 Saturation 96 91 100 H ABG Base Excess -2 -2 3 VBG pH VBG pCO2 VBG pO2 VBG Base Excess 03/17/25 03/18/25 03/19/25 04:53 09:27 04:46 ABG pH 7.38 7.35 ABG pCO2 49 H 48 ABG pO2 78 L D 92 ABG HCO3 29 H 26 ABG O2 Saturation 95 98 ABG Base Excess 3 0 VBG pH 7.34 VBG pCO2 54 D VBG pO2 34 VBG Base Excess 2 03/24/25 22:00 ABG pH 7.33 L ABG pCO2 48 ABG pO2 233 H ABG HCO3 25 ABG O2 Saturation 101 H ABG Base Excess -1 VBG pH VBG pCO2 VBG pO2 VBG Base Excess Quality Measures Quality Measures VTE prophylaxis Assessment & Plan Assessment Current Active Medications: Generic Name Dose Route Start Last Admin Trade Name Freq PRN Reason Stop Dose Admin Acetaminophen 650 mg 03/20/25 11:35 03/21/25 06:39 Acetaminophen 325 Mg Tablet PO 04/19/25 11:34 650 mg Q6HR PRN Administration pain and Fever >100.4 Protocol Hydrocodone Bitart/Acetaminophen 1 tab 03/28/25 08:32 03/31/25 11:20 Hydrocodone/Apap 7.5/325 Tablet PO 04/02/25 08:31 1 tab Q6HR PRN Administration PAIN SCALE 4-6 (Moderate Amiodarone HCl 200 mg 03/19/25 21:00 03/31/25 09:26 Amiodarone Hcl 200 Mg Tablet GT 04/18/25 20:59 200 mg BID MONTSERRAT Administration Dextrose 25 ml 03/14/25 20:38 03/20/25 23:30 Dextrose 50%-Water Inj 50 Ml Syringe IV 04/13/25 20:37 25 ml Q15MIN PRN Administration BG 50-70 responsive npo pt Dextrose 50 ml 03/14/25 20:38 Dextrose 50%-Water Inj 50 Ml Syringe IV 04/13/25 20:37 Q15MIN PRN BG <50 OR BG <70 & pt unresponsive Diltiazem HCl 120 mg 03/30/25 09:00 03/31/25 09:25 Diltiazem Cd 120 Mg Capcr PO 04/29/25 08:59 120 mg QDAY MONTSERRAT Administration Glucagon 1 mg 03/14/25 17:36 Glucagon Inj 1 Mg Vial IM Q15MIN PRN BG <70, and no IV access Heparin Sodium (Porcine) 5,000 unit 03/23/25 21:00 03/31/25 09:25 Heparin Sod Inj 5000 Unit/Ml Vial SC 04/06/25 20:59 5,000 unit Q12HR MONTSERRAT Administration Heparin Sodium (Porcine) 3,800 unit 03/30/25 08:26 03/30/25 11:38 Heparin Sod Inj 1000 Unit/Ml Vial 10 Ml INDWELLCAT 04/13/25 08:25 3,800 unit PRN PRN Administration DIALYSIS Hydromorphone HCl 0.5 mg 03/30/25 17:09 03/31/25 14:20 Hydromorphone Inj 2 Mg/Ml Vial IVP 04/01/25 08:44 0.5 mg Q6H PRN Administration SEVERE PAIN 7-10 Insulin Human Lispro 0 unit 03/22/25 11:30 03/31/25 11:29 Insulin Lispro (Admelog) 1 Unit/0.01 Ml Unit SC 04/21/25 11:29 Not Given ACHS [facility] Protocol Levalbuterol HCl 0.31 mg 03/28/25 10:24 03/31/25 00:37 Levalbuterol Rt 0.31 Mg/3 Ml Nebu INH 04/19/25 12:14 0.31 mg Q6HRRT PRN Administration Wheezing Midodrine 10 mg 03/19/25 18:19 Midodrine 5 Mg Tablet GT 04/18/25 21:59 TID PRN MAP below 65 Ondansetron HCl 4 mg 03/14/25 17:31 03/30/25 01:39 Ondansetron Inj 2 Mg/Ml Inj 2 Ml IV 04/13/25 17:30 4 mg Q6H PRN Administration NAUSEA OR VOMITING Protocol Pantoprazole Sodium 40 mg 03/31/25 09:00 03/31/25 09:25 Pantoprazole Inj 40 Mg Vial IVP 04/30/25 08:59 40 mg QDAY MONTSERRAT Administration Pharmacy Consult 1 each 03/27/25 08:44 Vancomycin Pharmacy To Dose 1 Each Each IV 05/30/25 16:59 QDAY PRN CONSULT Polyethylene Glycol 17 gm 03/26/25 18:00 03/31/25 09:25 Polyethylene Glycol 17 Gm Packet PO 04/25/25 17:59 17 gm QDAY MONTSERRAT Administration Pregabalin 50 mg 03/31/25 14:00 03/31/25 13:27 Pregabalin 25 Mg Capsule PO 04/30/25 13:59 50 mg TID MONTSERRAT Administration Sennosides 1 tab 03/26/25 18:00 03/31/25 09:25 Senna Tablet PO 04/25/25 17:59 1 tab QDAY MONTSERRAT Administration Protocol Sodium Chloride 3 ml 03/31/25 06:26 Sodium Cl Rt Marjorie 3% 4 Ml Nebu (Non-Formulary) INH 04/16/25 18:59 Q6HRRT PRN To induce cough Plan 49-year-old male with past medical history of DM2, hypertension, ESRD (HD ), HFpEF (EF 55% on 2021), and right BKA due to osteomyelitis was initially admitted to the ICU on 03/14/2025 for acute hypoxic respiratory failure, acute encephalopathy, and shock. He was subsequently extubated and downgraded to telemetry on 03/20/2025 for continuation of care. #Status post acute non-ST segment elevation myocardial infarction, NSTEMI possible type 2 troponin versus NSTEMI. #SVT episodes. #Afib, rate controlled. #Decompensated HFpEF (EF 45-50%). Patient s/p intubation and pressor support in ICU for shock, distributive secondary to sepsis versus cardiogenic. Patient initially presented to ED in SVT and required shock x1. Troponin initially 1.856 uptrended to 7.899 peak. Patient was treated for pneumonia. Patient was able to wean off pressors, extubated, now downgraded to tele. CT LER showed diffuse stenosis on the arteries of the LLE, occlusions in almost all major arteries. Echo done on 03/16/2025 showed LV appears normal with EF 45-50%. Septal dyskinesis is seen, RV appears normal with RVSP 50 mmHg. Mildly dilated LA & RA Mild mitral regurgitation Mild-Moderate TR. 03/21, patient had 2 rapid response events for SVT in the 170-200s which self converted in minutes. Plan: -Continue amiodarone 200 mg BID. -continue diltiazem Cd 120 mg daily. -Maintain K >4.0 and Mag >2.0. -Continue dialysis per Nephrology. #Extensive atherosclerotic cardiovascular disease with bilateral femoral artery occlusions and distal trifurcation disease with gangrenous changes, ruled out. #Vasopressor-induced vasoconstriction and gangrene, sequelae. #Left foot gangrene. -Patient has history of right extremity BKA due to severe PAD. This admission after severe shock requiring pressor support patient subsequently developed ischemia of the right and left fingertips. Vascular surgeon stated that the patient is not a candidate at this time for revascularization, however stated that would discuss case with general surgeon. Likely upper extremity digits affected by vasopressor support in combination with severe PAD causing limb ischemia. -Angiography showed Normal, nonobstructive epicardial coronary arteries. Mild left ventricular dysfunction, ejection fraction 50%. Right ulnarl artery totally occluded with excellent flow from the radial artery. Left lower extremity angiogram showed widely patent SFA and trifurcation with distal dorsalis pedis 100% occlusion. Right lower extremity angiogram also showed no significant obstructive lesions until trifurcation( amputated BKA). Discontinued on aspirin, plavix and statin after angiography. Plan: -start on Eliquis 2.5 mg BID after surgery. -cardiology cleared for amputation. #GPC bacteremia. #Leukocytosis. #Staph hemolyticus bacteremia. Patient tested for gram-positive cocci 2/2 blood cultures on 03/21/2025, first positive blood cultures this admission. Patient has not been febrile, however has had persistent leukocytosis. Patient subsequently getting all lines removed after receiving dialysis. -Repeat echo on 03/23- Aortic valve leaflets with sclerosis calcification thickening of the cusp but no stenosis. No evidence of vegetation detected. Mitral valve annular show mild calcification mitral leaflets with thickening regurgitations.Left atrium appears to be mildly dilated.Left ventricle is normal with evidence of mild anteroseptal hypokinesis with well-preserved ejection fraction of 50 to 55%. Right heart structures normal. Mild tricuspid regurgitation with no evidence of pulmonary hypertension normal PA pressures. Tricuspid and pulmonic valves appear normal no vegetations. Compared to the study a week ago no change except some improvement in LV function. Repeat blood cultures is negative. HD catheter was exchanged. Plan: -Continue vancomycin IV as per ID recs. #Hypotension, resolved. S/p shock weaned off pressors, multifactorial likely distributive and some component cardiogenic. Plan: -Continue midodrine 10 mg TID as needed. Rest of conditions to continue current management per primary team: #Acute hypoxic respiratory failure. #Community-acquired pneumonia, Stenotrophomonas maltophilia. #ESRD (HD on ). #History of type 2 diabetes. #Respiratory acidosis, resolved. #HAGMA, resolved. #Lactic acidosis, resolved. #Hyperkalemia, resolved. #Shock liver, resolved. #Possible GI bleed. #Macrocytic anemia. #Thrombocytopenia. #Hematemesis, resolved. #Hypoglycemia, resolved. Discussed the patient with my attending Dr Villalobos. Minh Smith MD, PGY 2. Disclaimer: This note was dictated by speech recognition. Minor errors in typewriter tester may be present due to voice recognition software.
[2025-04-01] VITALS (104 sets, daily range): BP systolic 74–182; BP diastolic 36–88; PULSE 50–150; RESP 0–28; TEMP 35.2–36.9; O2SAT 75–100; BMI 34.4
--- NOTE | 2025-04-01 02:39 | EKG_ITS ---
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
--- NOTE | 2025-04-01 02:42 | PC.NURSE ---
notified Dr. Serrato of patient's hr rhythm change, possible afib, new order for ekg
[2025-04-01] MEDS: AMIODARONE 150 MG IVPB 150 MG/100 ML BAG 600 MG IV (03:27)
--- NOTE | 2025-04-01 03:28 | PD.RESEVENT ---
Documentation for date of: 04/01/25 Event Note Event Note: Rapid Response Room: 265 Time: 3:05 AM Reason for Call: Tachycardia Patient presentation: Somnolent but arousable, no distress, normal S1, S2, tachy 140s. Upper and lower extremities dark/dusky from ischemia. Assessment: RR called due to HR 150s, EKG showed rate of 143, irregular rhythm. BP at bedside 84/50 with MAP 65. Recheck few minutes later showed minor improvement to 111/65 with HR 130s. New orders: CBC, CMP, Mag, Phosphate, started amiodarone drip. Patient was discussed with the attending, Dr. Guzmán. Rita Serrato, PGY-1
[2025-04-01] MEDS: AMIODARONE 360 MG IVPB 360 MG/200 ML BAG 33.333 MG IV (03:33)
[2025-04-01 03:40] LABS: Basophils % (Auto) 0 % (0-2.5); Eosinophils # (Auto) 0.1 Thou/mm3 (0.0-0.5); Eosinophils % (Auto) 1 % (0-10); Immature Granulocytes % (Auto) 2 % (0-0); Immature Granulocytes Auto 0.16 Thou/mm3 (0.00-0.00); Lymphocytes # (Auto) 0.3 Thou/mm3 (1.0-4.8); Lymphocytes % (Auto) 3 % (10-50); Mean Corpuscular HGB Conc 30.4 g/dl (31.0-37.0); Mean Corpuscular Hemoglobin 31.3 pg (25.0-35.0); Mean Corpuscular Volume 103 fL (80-100); Monocytes % (Auto) 10 % (0-12); Neutrophils # (Auto) 8.1 Thou/mm3 (1.8-7.7); Neutrophils % (Auto) 84 % (37-80); Nucleated Red Blood Cell % 0 /100 WBC (0); Platelet Count 176 Thou/mm3 (140-440); RDW Standard Deviation 61.9 fL (35.1-43.9); Red Blood Count 2.33 Miln/mm3 (4.50-5.90); White Blood Count 9.7 Thou/mm3 (3.8-10.6)
[2025-04-01 03:51] LABS: Hemoglobin 7.3 g/dL (13.5-16.0)
[2025-04-01 04:27] LABS: Alanine Aminotransferase 44 U/L (10-49); Albumin, Serum 3.4 gm/dL (3.5-5.0); Alkaline Phosphatase 110 U/L (46-116); Anion Gap 8 (7-16); Aspartate Amino Transferase 18 U/L (0-34); BUN/Creatinine Ratio 11 Ratio (12-20); Bilirubin,Total 0.5 mg/dL (0.3-1.2); Blood Urea Nitrogen 69 mg/dL (9-23); Calcium (Corrected) 8.5 mg/dL (8.5-10.1); Carbon Dioxide 25.9 mMol/L (20.0-31.0); Chloride 97 mMol/L (98-107); Creatinine (Component) 6.4 mg/dL (0.6-1.3); Estimated Creatinine Clearance 17.9 mL/min (>60); Globulin 3.3 gm/dL (2.3-3.5); Glucose 160 mg/dL (74-106); Magnesium 2.1 mg/dL (1.6-2.6); Osmolality,Calculated 285 (275-295); Sodium 131 mMol/L (136-145); Total Protein 6.7 gm/dL (5.7-8.2); Vancomycin,Random 14.1 mcg/mL; eGFR 10 See Note
[2025-04-01 04:29] LABS: Phosphorous 9.2 mg/dL (2.4-5.1); Potassium 6.4 mMol/L (3.4-5.1)
[2025-04-01 05:15] LABS: Base Excess, Venous -3 (-3-3); O2 Saturation, Venous 84 % (96-97); PCO2, Venous 57 mmHg (36-56); PO2, Venous 51 mmHg (15-58); pH, Venous 7.24 (7.33-7.66)
[2025-04-01] MEDS: INSULIN HUM REGULAR 1 UNIT/0.01 ML (PER UNIT) 5 UNIT IV (05:20)
[2025-04-01] MEDS: CALCIUM CHLORIDE 10% INJ 10 ML SYRG IV (05:21)
[2025-04-01] MEDS: DEXTROSE 50%-WATER INJ 50 ML SYRINGE IV (05:21)
[2025-04-01] MEDS: FUROSEMIDE INJ 10 MG/ML VIAL 2 ML 40 MG IVP (05:22)
[2025-04-01] MEDS: ALBUMIN HUMAN 25% IVPB 25 GM/100 ML BTL IV ×2 (07:39→07:48)
[2025-04-01] MEDS: LORazepam 2 MG/ML VIAL 1 MG IVP (07:47)
--- NOTE | 2025-04-01 07:47 | PC.NURSE ---
PT HAVING TREMORS MD WRIGHT AT BEDSIDE ORDERED 1 ATIVAN AND STORE DELI MANAGER CALLED. ATIVAN GIVEN AT [id number]. PT TREMORS NO LONGER PRESENT AFTER ADMIINISTRATION.
--- NOTE | 2025-04-01 08:00 | EVENTNT_ITS ---
Documentation for date of: 04/01/25 Event Note Event Note: Patient had a rapid response this morning around 7:48 AM due to seizure-like activity and lethargy. On assessment patient initially had some tongue biting and some blood around his lips. Patient also had visible twitching throughout the whole body therefore Ativan 1 mg x 1 was given which improved his seizure- like activity. After this patient remained without any further tremors or twitching, but he was more lethargic and obtunded likely in the setting of Ativan. His pupils were equally reactive and before the Ativan he was able to follow commands. At the end of the rapid patient seems stable with a MAP around 70. Patient again had another rapid response called around 8:20 AM due to heart rate in the 140s which was sustained and desaturation to the low 80s high 70s. On assessment patient was still very lethargic and his MAP was now even lower at around 55-64 and max. At this time EKG that show heart rate in the 140s which looks like SVT. Given that patient was hemodynamically unstable decision was made to cardiovert him with 100 J x 1. This helped improve the patient's heart rate to the 60s with P waves visible and maintained. His blood pressure was still in the mid 50s and saturating in the 70s therefore patient was transferred to the ICU for further treatment. Patient's was called to give an update about the patient's current condition. It was again discussed with her that since patient was DNR/DNI we wanted to reassess if patient was still want to be shocked for cardioversion in the future as he had previously wanted once he was placed DNR/DNI. Patient's stated that yes that he the patient and her discussed yesterday that he did not want to be intubated or to have chest compressions, but that he would like to have all other aggressive interventions including shocks for cardioversion and medication. At this time patient's nurse, Earnest, confirmed with the patient's that it was okay to do cardioversion and do home medications, but no chest compressions or intubation at this time. Case was discussed with my attending Dr. Teresa Lee, PGY1
--- NOTE | 2025-04-01 08:04 | PC.NURSE ---
Dr. Pleitez called and ask if he still wanted to proceed with HD, he does. Albumin given at start of HD, BP 90/42 with blood in lines. Pt is flat, slight trendelberg. Rapid called. Ativan given for seizure like activity by YOANNA Tinoco.
--- NOTE | 2025-04-01 08:10 | EKG_ITS ---
[facility] Test Date: 2025-04-01 Pat Name: CLEMENTE PERAZA Department: Room: S265A Gender: Male Diabetologist: HUGO : 1975 Requested By: Lito Lee Order Number: [id number] Reading MD: Lito Lee Measurements Intervals [place] Rate: 140 P: 80 [place]: 176 QRS: 134 QRSD: 170 T: -28 QT: 348 QTc: 531 Interpretive Statements SINUS TACHYCARDIA, POSSIBLE ATRIAL FLUTTER RIGHT BUNDLE BRANCH BLOCK LEFT POSTERIOR FASCICULAR BLOCK SEPTAL MYOCARDIAL INFARCTION , OF INDETERMINATE AGE ST DEPRESSION, CONSIDER SUBENDOCARDIAL INJURY Compared to ECG 04/01/2025 02:53:15 Right bundle-branch block now present Left posterior fascicular block now present Myocardial infarct finding now present ST (T wave) deviation now present Intraventricular conduction delay no longer present Right ventricular hypertrophy no longer present /store/S0/[id number]/[id number].pdf
--- NOTE | 2025-04-01 08:27 | PC.NURSE ---
Rapid called, Pt. put on mask due to low sat 85%. O2 sat increased to 92%. RT called to put pt on high flow NC.
--- NOTE | 2025-04-01 08:54 | PC.NURSE ---
HD stopped to bring pt to ICU.
[2025-04-01 08:57] LABS: Alanine Aminotransferase 41 U/L (10-49); Albumin, Serum 3.6 gm/dL (3.5-5.0); Albumin/Globulin Ratio 1.1 (1.2-2.2); Alkaline Phosphatase 106 U/L (46-116); Anion Gap 7 (7-16); Aspartate Amino Transferase 10 U/L (0-34); BUN/Creatinine Ratio 11 Ratio (12-20); Bilirubin,Total 0.4 mg/dL (0.3-1.2); Blood Urea Nitrogen 66 mg/dL (9-23); Calcium 8.3 mg/dL (8.3-10.6); Calcium (Corrected) 8.6 mg/dL (8.5-10.1); Carbon Dioxide 25.9 mMol/L (20.0-31.0); Chloride 98 mMol/L (98-107); Creatinine (Component) 6.1 mg/dL (0.6-1.3); Estimated Creatinine Clearance 18.8 mL/min (>60); Globulin 3.2 gm/dL (2.3-3.5); Glucose 135 mg/dL (74-106); Osmolality,Calculated 283 (275-295); Potassium 5.8 mMol/L (3.4-5.1); Sodium 131 mMol/L (136-145); Total Protein 6.8 gm/dL (5.7-8.2); eGFR 10 See Note
[2025-04-01 09:04] LABS: Troponin I 0.131 ng/mL (0.0-0.045)
--- NOTE | 2025-04-01 09:09 | PC.SS ---
SS Follow up note; Patient was moved to ICU.
--- NOTE | 2025-04-01 09:16 | PD.RESPRO ---
Documentation for date of: 04/01/25 Subjective Subjective Interval history: Patient was seen and examined at bedside this morning. Overnight patient had a rapid response called due to tachycardia in the 140s where he was found to be having A-fib and he was placed on amiodarone drip. This morning patient had 2 rapid response called 1 for seizure-like activity for which he received Ativan 1 mg x 1 and seemed to resolve his seizure-like activity and the second for tachycardia and hypoxia. Please see attached event note from today. At this time patient is not a very guarded condition and was made aware of this. Had long discussion with patient's about what were the patient's wishes concerning medical treatment. Patient was very lethargic and was then upgraded to the ICU given his hemodynamically instability. Exam Vital Signs Temp Pulse Resp BP Pulse Ox O2 Del Method O2 Flow Rate 96.6 F L 53 L 20 77/43 L 96 Nasal Cannula 2 04/01/25 08:00 04/01/25 08:44 04/01/25 08:44 04/01/25 08:44 04/01/25 08:00 04/01/25 08:00 04/01/25 08:00 FiO2 93 03/29/25 10:27 Narrative Exam General: Somnolent and lethargic Eyes: Pupils reactive to light, Ears: No visible ear discharge Nose: No visible nasal discharge. Mouth/Throat: Dry mucous membranes, no redness, lesion at the tip of the tongue with some dried blood around the mouth. Neck: Neck supple, no cervical lymphadenopathy. Lungs: Clear CHRISTIANO Cardio: Normal S1/S2, irregular and tacky, no murmurs, no JVD Abdomen: Soft, no palpable masses, peristalsis present, no guarding or rebound Extremities: Right BKA with cyanotic changes at the stump still present and is tender, left foot demarcated purplish discoloration and necrotic changes in toes unchanged, right upper extremity 2nd and 3rd digits show necrotic changes at the tips. Skin: Right 2nd and 3rd upper extremity digits show necrotic changes at the tips with some bullae at the rest of the digit, Left foot discoloration, bullae, and necrotic changes in toes. Neuro: Neurological status could not be assessed given patient's current mental status, there was some seizure-like activity seen Objective Labs 04/01/25 11:14 04/01/25 11:14 Labs: Laboratory Results - last 24 hr 03/31/25 03/31/25 03/31/25 05:42 09:01 16:06 WBC RBC Hgb 7.2 L Hct 23.5 L MCV MCH MCHC RDW Std Deviation Plt Count Neut % (Auto) Lymph % (Auto) [place] % (Auto) Eos % (Auto) Baso % (Auto) Neut # (Auto) Lymph # (Auto) [place] # (Auto) Eos # (Auto) Baso # (Auto) Immature Gran # (Auto) Absolute Nucleated RBC Immature Gran % Nucleated RBC % Smear Path Review Sent to Pathologist VBG pH VBG pCO2 VBG pO2 VBG O2 Sat (Guy) VBG Base Excess Sodium Potassium Chloride Carbon Dioxide Anion Gap BUN Creatinine Estim Creat Clear Calc eGFR BUN/Creatinine Ratio Glucose Calculated Osmolality Calcium Corrected Calcium Phosphorus Magnesium Total Bilirubin AST ALT Alkaline Phosphatase Troponin I Total Protein Albumin Globulin Albumin/Globulin Ratio Random Vancomycin Blood Type A Positive Antibody Screen NEGATIVE I have discussed and was present for the essential components of the history, physical examination, diagnosis, and treatment plan with the resident. I agree with the patient's care as documented by the resident and amended herein by me. Collin Moore DO. Patient seen and evaluated this AM. In Short, patient is a Interval Hx: SIGNIFICANT PROBLEM LIST/PLAN: Although this document has been carefully reviewed, there may still be some phonetic and other typographical errors. These errors are purely grammatical due to imperfections in the software program and should not be construed in any way to compromise the substance of the patient's medical care during this visit. Crossmatch See Detail Blood Bank Wristband ID Yes 04/01/25 04/01/25 04/01/25 03:25 04:53 07:55 WBC 9.7 D RBC 2.33 L Hgb 7.3 L Hct 24.0 L MCV 103 H MCH 31.3 MCHC 30.4 L RDW Std Deviation 61.9 H Plt Count 176 D Neut % (Auto) 84 H Lymph % (Auto) 3 L [place] % (Auto) 10 Eos % (Auto) 1 Baso % (Auto) 0 Neut # (Auto) 8.1 H Lymph # (Auto) 0.3 L [place] # (Auto) 1.0 H Eos # (Auto) 0.1 Baso # (Auto) 0.0 Immature Gran # (Auto) 0.16 H Absolute Nucleated RBC 0.00 Immature Gran % 2 H Nucleated RBC % 0 Smear Path Review VBG pH 7.24 L VBG pCO2 57 H VBG pO2 51 VBG O2 Sat (Guy) 84 L VBG Base Excess -3 Sodium 131 L 131 L Potassium 6.4 H* D 5.8 H D Chloride 97 L 98 Carbon Dioxide 25.9 25.9 Anion Gap 8 7 BUN 69 H 66 H Creatinine 6.4 H* D 6.1 H* Estim Creat Clear Calc 17.9 L 18.8 L eGFR 10 L* 10 L* BUN/Creatinine Ratio 11 L 11 L Glucose 160 H D 135 H Calculated Osmolality 285 283 Calcium 8.0 L 8.3 Corrected Calcium 8.5 8.6 Phosphorus 9.2 H Magnesium 2.1 Total Bilirubin 0.5 0.4 AST 18 10 ALT 44 41 Alkaline Phosphatase 110 106 Troponin I 0.131 H* Total Protein 6.7 6.8 Albumin 3.4 L 3.6 Globulin 3.3 3.2 Albumin/Globulin Ratio 1.0 L 1.1 L Random Vancomycin 14.1 Blood Type Antibody Screen Crossmatch Blood Bank Wristband ID ABG Interpretation ABG results: 03/14/25 03/14/25 03/14/25 14:44 16:44 18:53 ABG pH 7.03 L* 7.04 L* 7.10 L* ABG pCO2 43 50 H 46 ABG pO2 86 128 H D 57 L* D ABG HCO3 11 L 13 L 14 L ABG O2 Saturation 91 97 78 L ABG Base Excess -19 L -17 L -15 L VBG pH VBG pCO2 VBG pO2 VBG Base Excess 03/14/25 03/15/25 03/15/25 21:20 05:07 12:28 ABG pH 7.21 L D 7.41 D ABG pCO2 32 D 31 L ABG pO2 116 H D 74 L D ABG HCO3 13 L 20 ABG O2 Saturation 97 95 ABG Base Excess -14 L -4 L VBG pH 7.43 VBG pCO2 34 L VBG pO2 37 VBG Base Excess -1 03/16/25 03/16/25 03/16/25 04:51 11:48 19:30 ABG pH 7.46 H 7.22 L D 7.38 D ABG pCO2 29 L 66 H D 48 D ABG pO2 78 L 79 L 236 H D ABG HCO3 21 27 H 29 H ABG O2 Saturation 96 91 100 H ABG Base Excess -2 -2 3 VBG pH VBG pCO2 VBG pO2 VBG Base Excess 03/17/25 03/18/25 03/19/25 04:53 09:27 04:46 ABG pH 7.38 7.35 ABG pCO2 49 H 48 ABG pO2 78 L D 92 ABG HCO3 29 H 26 ABG O2 Saturation 95 98 ABG Base Excess 3 0 VBG pH 7.34 VBG pCO2 54 D VBG pO2 34 VBG Base Excess 2 03/24/25 04/01/25 22:00 04:53 ABG pH 7.33 L ABG pCO2 48 ABG pO2 233 H ABG HCO3 25 ABG O2 Saturation 101 H ABG Base Excess -1 VBG pH 7.24 L VBG pCO2 57 H VBG pO2 51 VBG Base Excess -3 Quality Measures Quality Measures VTE prophylaxis Assessment & Plan Assessment Current Active Medications: Generic Name Dose Route Start Last Admin Trade Name Freq PRN Reason Stop Dose Admin Acetaminophen 650 mg 03/20/25 11:35 03/21/25 06:39 Acetaminophen 325 Mg Tablet PO 04/19/25 11:34 650 mg Q6HR PRN Administration pain and Fever >100.4 Protocol Hydrocodone Bitart/Acetaminophen 1 tab 03/28/25 08:32 03/31/25 19:38 Hydrocodone/Apap 7.5/325 Tablet PO 04/02/25 08:31 1 tab Q6HR PRN Administration PAIN SCALE 4-6 (Moderate Dextrose 25 ml 04/01/25 04:32 Dextrose 50%-Water Inj 50 Ml Syringe IV 05/01/25 04:31 Q15MIN PRN BG 50-70 responsive npo pt Dextrose 50 ml 04/01/25 04:32 04/01/25 05:21 Dextrose 50%-Water Inj 50 Ml Syringe IV 05/01/25 04:31 50 ml Q15MIN PRN Administration BG <50 OR BG <70 & pt unresponsive Diltiazem HCl 120 mg 03/30/25 09:00 03/31/25 09:25 Diltiazem Cd 120 Mg Capcr PO 04/29/25 08:59 120 mg QDAY MON[place]ERRAT Administration Glucagon 1 mg 04/01/25 04:32 Glucagon Inj 1 Mg Vial IM Q15MIN PRN BG <70, and no IV access Heparin Sodium (Porcine) 5,000 unit 03/23/25 21:00 03/31/25 20:58 Heparin Sod Inj 5000 Unit/Ml Vial SC 04/06/25 20:59 5,000 unit Q12HR MON[place]AT Administration Heparin Sodium (Porcine) 3,800 unit 03/30/25 08:26 03/30/25 11:38 Heparin Sod Inj 1000 Unit/Ml Vial 10 Ml INDWELLCAT 04/13/25 08:25 3,800 unit PRN PRN Administration DIALYSIS Amiodarone HCl/Dextrose 360 mg in 200 mls @ 16.667 mls/hr 04/01/25 09:00 Nexterone Ivpb IV 04/02/25 08:59 .Q12H [place] Vancomycin/Sodium Chloride 100 mls @ 120 mls/hr 04/01/25 13:00 Vancomycin/Ns 500 Mg Ivpb IV 04/01/25 13:49 X1 ONE Albumin Human 25 gm in 100 mls @ 100 mls/hr 04/01/25 07:37 04/01/25 07:48 Albuminar-25 Ivpb IV 100 mls/hr PRN PRN Administration DIALYSIS Lactated Ringer's 1,000 mls @ 999 mls/hr 04/01/25 08:46 Lactated Ringers IV 04/01/25 09:46 .Q1H1M ONE Phenylephrine HCl 40 mg/ 100 mls @ 1.728 mls/hr 04/01/25 08:48 Sodium Chloride IV 05/01/25 08:47 .Q24H PRN Per Cardiogenic Protocol Protocol 0.1 MCG/KG/MIN Insulin Human Lispro 0 unit 03/22/25 11:30 04/01/25 07:59 Insulin Lispro (Admelog) 1 Unit/0.01 Ml Unit SC 04/21/25 11:29 Not Given ACHS [facility] Protocol Levalbuterol HCl 0.31 mg 03/28/25 10:24 03/31/25 00:37 Levalbuterol Rt 0.31 Mg/3 Ml Nebu INH 04/19/25 12:14 0.31 mg Q6HRRT PRN Administration Wheezing Lorazepam 1 mg 04/01/25 08:11 Lorazepam 2 Mg/Ml Vial IVP Q5MIN PRN seizure Metoprolol Tartrate 2.5 mg 04/01/25 08:30 Metoprolol Tartrate Inj 1 Mg/Ml Amp 5 Ml IVP Q5MIN PRN TACHYCARDIA HR >120 Midodrine 10 mg 03/19/25 18:19 Midodrine 5 Mg Tablet GT 04/18/25 21:59 TID PRN MAP below 65 Ondansetron HCl 4 mg 03/14/25 17:31 03/30/25 01:39 Ondansetron Inj 2 Mg/Ml Inj 2 Ml IV 04/13/25 17:30 4 mg Q6H PRN Administration NAUSEA OR VOMITING Protocol Pantoprazole Sodium 40 mg 03/31/25 09:00 03/31/25 09:25 Pantoprazole Inj 40 Mg Vial IVP 04/30/25 08:59 40 mg QDAY [place] Administration Pharmacy Consult 1 each 03/27/25 08:44 Vancomycin Pharmacy To Dose 1 Each Each IV 04/23/25 16:59 QDAY PRN CONSULT Polyethylene Glycol 17 gm 03/26/25 18:00 03/31/25 09:25 Polyethylene Glycol 17 Gm Packet PO 04/25/25 17:59 17 gm QDAY [place]AT Administration Pregabalin 50 mg 04/01/25 09:00 Pregabalin 25 Mg Capsule PO 05/01/25 08:59 BID MONTSERRAT Sennosides 1 tab 03/26/25 18:00 03/31/25 09:25 Senna Tablet PO 04/25/25 17:59 1 tab QDAY MON[place]ERRAT Administration Protocol Sodium Chloride 3 ml 03/31/25 06:26 Sodium Cl Rt Marjorie 3% 4 Ml Nebu (Non-Formulary) INH 04/16/25 18:59 Q6HRRT PRN To induce cough Plan 49-year-old male with past medical history of DM2, hypertension, ESRD (HD ), HFpEF (EF 55% on 2021), and right BKA due to osteomyelitis was admitted to the ICU on 03/14/2025 for acute hypoxic respiratory failure, acute encephalopathy, and shock. He was extubated and downgraded to telemetry on 03/20/2025. #A-fib with RVR, rate controlled #MAT #SVT Patient again went into SVT last night and was shocked again, but on repeat EKG showed to be in A-fib RVR. Patient again went into SVT and received adenosine 6mg x1 and adenosine 12mg x1 before being cardioverted. Repeat EKG showed what appears to be MAT. [id number] score of 3 points indicating 3.2% risk of stroke per year HAS-BLED score of 5 points Patient had his angiogram done 03/31/2025 showed right ulnar artery to be totally occluded or absent and there was no CAD. Cardiology recommended to stop patient's aspirin, Plavix, metoprolol, and statin Patient had a rapid response called and was tachycardic in the 140s and EKG looked to be like a SVT. Patient was cardioverted and was then in the heart rates in the 60s. Plan: Patient was upgraded to ICU Patient was started on amiodarone drip Patient got cardioverted with 100 J x 1 Keep Potassium >4 and Mg >2 Gasoline Engine Assembler consulted, appreciate recommendations #Acute hypoxic respiratory failure #Shock Patient was having a MAP above 55-63 with saturation in the low 80s and high 70s. Unknown etiology of shock at this time could be a contribution of distributive shock given necrosis of lower extremity and right upper extremity digits as well as cardiogenic given the arrhythmias Plan: Patient was cardioverted x 1 with 100 J Patient on high flow nasal cannula Patient was upgraded to the ICU #Staph Hemolyticus bacteremia #CLABSI Patient grew Staphylococcus hemolyticus from blood cultures on 03/21/2025 Repeat blood cultures on 03/14/2025 have been negative for the past 48 hours Repeat echo did not show any vegetations Central line and dialysis catheter removed 03/25/2025 New tunneled catheter placed 03/26/2025 No spikes in fever or WBC Plan: Continue Vancoymycin 03/23- 04/05 Consulted infectious disease, appreciate recommendations #Possible acute vs chronic limb ischemia. #Right ulnar artery occlusion #Peripheral Vascular disease, severe Abdomen CTA with runoff that showed occlusion of multiple arteries including the left radial, gluteal, and tibial arteries as well as 90% stenosis of the left superficial femoral artery Also showed 80% stenosis of right superficial femoral artery. Overnight ICU team spoke with vascular surgeon at [facility] who stated that at this time patient was not a candidate for transfer for revascularization. Patient understands that he may lose multiple digits and even his left lower foot. Patient had his angiogram done yesterday showed right ulnar artery to be totally occluded or absent and there was no CAD. Cardiology recommended to stop patient's aspirin, Plavix, metoprolol, and statin Patient may require amputation hospital, will get recommendations from general surgery. Plan: Nitroglycerin topical ointment. [place] 7.5/325 q6h prn and Dilaudid 0.25mg q6h prn Pregabalin increase to 50mg BID General Surgery consulted, per recommendations Orthopedic Surgery consulted, per recommendations Pt will need outpatient follow up with vascular surgeon #Stenotrophomonas maltophilia pneumonia. #Respiratory acidosis, resolved. #Septic shock, resolved. Intubated on 03/14/2025. Sputum grew stenotrophomonas maltophilia. Extubated on 03/20/2025. Zosyn 03/14/2025-03/17/2025 Vancomycin 03/14/2025 - 03/15/2025. Discontinued levaquin 500mg q48hr 03/17/2025- 03/21 Plan: Midodrine 10mg TID as needed. #Troponinemia, resolved Troponins peaked at 7.899 and down trended to 7.04. Echo 03/16/2025 showed EF of 45 to 50% and septal dyskinesis. Echo on 03/23/2025 shows some improvement and left ventricle function with an EF of 50 to 55% Patient had his angiogram done yesterday showed right ulnar artery to be totally occluded or absent and there was no CAD. Cardiology recommended to stop patient's aspirin, Plavix, metoprolol, and statin Plan: Cardiology consulted, appreciate recommendations. #HFpEF (EF 50-55% on 2024). Echo on 03/16/2025 showed EF of 45 to 50% and septal dyskinesis. Echo on 03/23/2025 shows some improvement and left ventricle function with an EF of 50 to 55% Plan: Will continue with hemodialysis with fluid removal. Daily weights. Strict JENN's. fluid restriction. #ESRD (HD on ). #HAGMA, resolved. #Lactic acidosis, resolved. Patient was on hemodialysis and had AV fistula, but was clotted therefore cannot be used. Tunnedled dialysis cath placed 03/26/2025 Plan: Continue hemodialysis as scheduled. Paramedic Supervisor Dr. Pleitez following, appreciate recommendations Avoid nephrotoxic agents. Renally dose medications. #Hematemesis. #Macrocytic anemia. #Thrombocytopenia. Patient's hemoglobin was downtrending from 11.9 on admission Hemoglobin 7.3 and platelets 176 No active signs of bleeding Plan: 1 PRBC ordered for transfusion Continue to monitor daily CBC Transfuse if Hgb less than 7. #Transaminitis, improving #Hyperbilirubinemia, resolved #Hepatomegaly. Possible liver failure due to methamphetamine use? Could be due to shock liver versus hypoxia versus drug-induced. Hepatitis panel negative and abdominal ultrasound that shows some hepatomegaly with possible cirrhosis versus hepatocellular disease. Plan: Continue monitoring daily labs #Hx of DM2. ISS. Hypoglycemia protocol ordered. Hospital Maintenance: Disposition: Upgraded to ICU Diet: NPO DVT ppx: Heparin 5000 SC Q12H GI ppx: Protonix IV. Code status: DNR. Case disclosed with Attending Dr. Teresa Lee PGY1 Attending Provider Attestation/Addendum I have discussed and was present for the essential components of the history, physical examination, diagnosis, and treatment plan with the resident. I agree with the patient's care as documented by the resident and amended herein by me. Collin Moore, . Patient seen and evaluated this AM. Rapid response called overnight for tachycardia, another rapid called this morning for seizure in which 1 mg of Ativan was given. Potassium was noted to be 6.4, presently undergoing hemodialysis this morning. Patient's heart rate was elevated, appeared a flutter or SVT, the patient was cardioverted at bedside with permission from the patient's considering the patient is DNR/DNI at this time. The patient remained unstable, SPO2 was 78 to 80% on oxy mask, the patient was also anemic, transfusion was underway. We did consult the ICU team for upgrade to higher level of care, possibly needing pressor support, general surgery was also notified as the patient was scheduled to have BKA today. Patient transferred to ICU. Although this document has been carefully reviewed, there may still be some phonetic and other typographical errors. These errors are purely grammatical due to imperfections in the software program and should not be construed in any way to compromise the substance of the patient's medical care during this visit.
--- NOTE | 2025-04-01 09:19 | PC.NURSE ---
Pt. moved to ICU and HD restarted. Pressure put on pt by YOANNA Sanchez.
[2025-04-01] MEDS: PHENYLEPHRINE HCL 40 MG in SODIUM CHLORIDE 0.9% 96 ML 8.641 MG IV (09:20)
--- NOTE | 2025-04-01 09:22 | PC.NURSE ---
Blood running. UF increased to 1 L .
--- NOTE | 2025-04-01 09:30 | PD.RESPROC ---
Procedures Procedure Date / Time 04/01/25 9:30 AM Procedure Narrative Procedure Narrative: 9:30 AM Left Femoral Central Venous Catheter A time out completed to verify correct patient, procedure, and site of central venous catheter. Patient was placed suspine and US used to guide placed of Left Femoral Vein at inguinal region. Area was prepped with chlorhexidine scrub. Sterile technique used and area was draped. Lidocaine used to numb area. Introducer needle was inserted medial to femoral artery, inferior to the inguinal crease into femoral vein. Venous blood was withdraw. Syringe was removed and guideline was advanced into the introducer needle. Small incision was made at the skin surface with a scalpel and the introduced needle. Scalpel used to create incision site. Dilator introduced. The wire was removed and catheter introduced. Catheter sutured in place. Area Covered. - The patient's plan was discussed with attending Dr. Keanu Solorzano MD PGY1 Internal Medicine Attending Attestation: I was present for entire procedure. Patient tolerated procedure well with no immediate complications. Minimal blood loss. Arterial Line Size (Gauge): 20 Central Line Placement Left Femoral: Indication(s): shock Informed consent obtained: obtained from surrogate decision maker Time out done, and the following verified: correct patient, side and site, procedure, patient position and implants and/or equipment Patient placed on monitor/pulse ox: Yes Hand Hygiene: scrub, soap & water and alcohol-based hand rub Max Sterile Barrier Techniques used: cap, mask, sterile gown, sterile gloves and sterile full body drape Central line prep: Povidone-Iodine 1%, Chlorhexidine scrub and sterile drapes applied Local anesthesia used: lidocaine 1% Ultrasound used for placement: Yes Sterile Technique if Ultrasound used, including sterile gel: yes Central line lumen inserted: single Post procedure: sutured in place, good blood return, all ports aspirated, flushed, capped and sterile dressing applied Post procedure x-ray: other (Not indicated, femoral vein) Patient tolerated procedure: well Complications: none
--- NOTE | 2025-04-01 10:30 | PC.NURSE ---
0742 CAD MANAGER called patient had a seizure, meds given. Second CAD MANAGER called at 0749 pt was in SVT with oxygen level in the low 70's on dialysis in room 265. MD at bedside pt was cardioverted and transferred to ICU.
[2025-04-01] MEDS: PANTOPRAZOLE INJ 40 MG VIAL IVP (10:37)
--- NOTE | 2025-04-01 10:51 | PD.RESPRO ---
Documentation for date of: 04/01/25 Subjective Subjective Interval history: Mr. Mcclain is a 49-year-old male with past medical history of type 2 diabetes mellitus, hypertension, end-stage renal disease (HD ), HFpEF (EF 50 to 55% 02/2025) and right BKA due to osteomyelitis who was brought in by ambulance to [facility] emergency department on 03/14/2025 with a chief complaint of altered mental status. Patient was intubated secondary to inability to protect airway. On presentation patient's assisted with procuring history, per patient's patient had progressive shortness of breath and had change in mentation, patient was found to be in SVT when EMS arrived was shocked once and was converted to sinus rhythm. Patient also had to get additional sessions of hemodialysis due to increase in weight, last session of hemodialysis before admission to the hospital was on 12 March 2025. Patient also does have history of methamphetamine use, urine tox screen was positive for methamphetamine and marijuana on presentation. With the progression of hospital course patient was initially managed in the intensive care unit for acute hypoxic respiratory failure was found to have stenotrophomonas maltophilia pneumonia was treated with IV antibiotics, had significant lactic acidosis respiratory acidosis and high anion gap metabolic acidosis which improved in ICU patient did require CRRT and was eventually transition to hemodialysis, patient was eventually extubated on downgraded to telemetry on 03/20/2025. Patient's hospital stay is further complicated with possible acute versus chronic limb ischemia and underlying severe peripheral vascular disease, disassembler product discussed case with vascular surgeon at [facility] during the hospitalization, patient was a poor candidate for revascularization per documentation. Patient started on amiodarone for underlying atrial fibrillation and eventually infectious disease consulted for Staph haemolyticus bacteremia possible CLABSI. Patient continue to receive inpatient hemodialysis. 03/25/2025: Patient successfully completed 3 hours 4 minutes of dialysis session today, postdialysis weight 115.9 kg was hypotensive at times during the dialysis, tolerated dialysis well through the temporary dialysis catheter. Net fluid removed 0.5 L. Blood pressure was soft, received 2 bags of albumin during the dialysis session.Patient will need permanent dialysis catheter placement, will be scheduled with interventional radiology in a.m. after holding aspirin and Plavix. Patient will be made n.p.o. after midnight by primary team. 03/26/2025: Patient seen and examined at bedside, patient had permanent tunneled dialysis catheter placed today. Currently complains of some back pain. Patient will continue to receive IV antibiotics until 04/05/2025 with hemodialysis. Otherwise patient is stable, has no current complaints. Anticipate discharge in next 24 hours on supplemental oxygen. 03/27/2025:Patient received dialysis treatment today, completed about 2 hours of dialysis session, about 1.1 L fluid removed, postdialysis weight 115 kg, was administered 100 mL albumin during the dialysis session for low blood pressure, patient did receive alteplase through the indwelling catheter x 1. Primary team discussed the case with patient and patient's family, patient has been requiring an extensive amount of IV pain medication, further plan by primary team is to discharge patient to [facility] facility and not on hospice as patient does not have underlying clear etiology for hospice. Patient's DAPT being held, cardiology following the case and patient may undergo angiogram heart, bilateral upper and lower extremities on Saturday. 03/28/2025: Patient continues to complain of pain, patient's gabapentin changed to pregabalin 25 twice daily and Allison was increased to 7.5 mg. Patient Aspirin and Plavix being held, patient going to undergo cardiac angiogram and angiogram upper and lower extremities likely in the morning. Will coordinate with cardiology. 03/29/2025: Labs and Vitals reviewed. Patient scheduled for Procedure with Cardiology Today, will plan for dialysis pot procedure after discussion with Cardiology Team, otherwise patient is stable, has no current complains. Pregabalin dose adjusted by primrary team. 03/30/2025: Patient received dialysis treatment today, received dialysis for 3 hours 6-minute, about 2 L fluid removed, postdialysis weight 112.3, patient was administered 100 mL of albumin during dialysis. Patient had his angiogram done yesterday showed right ulnar artery to be totally occluded or absent and there was no CAD. Cardiology recommended to stop patient's aspirin, Plavix, metoprolol, and statin and they also started the patient on diltiazem. They also recommended to get general surgery for possible amputation and to start Eliquis 2.5 mg twice daily after the patient has surgery. Will consult general surgery for possible amputation. 03/31/2025: Patient seen and examined at bedside, labs and vitals reviewed. Patient received dialysis yesterday, patient is being evaluated by general surgery for possible amputation. Otherwise has no current complaints, reports no new concerns. 04/01/2025: Patient upgraded to ICU earlier this morning, patient had seizure-like episode. Patient was given Ativan 1 mg x 1. Patient later had another rapid response called with heart rate in 140s and SpO2 in low 80s, patient was very lethargic MAP was found to be in the range of 55-64. Patient eventually upgraded to ICU for IV pressors, patient started on phenylephrine in ICU. Patient will receive dialysis today, scheduled for BKA by surgery later today. Exam Vital Signs Temp Pulse Resp BP Pulse Ox O2 Del Method O2 Flow Rate 98.1 F 56 L 24 H 104/51 L 99 Mechanical Ventilation 15 04/01/25 09:15 04/01/25 10:45 04/01/25 10:10 04/01/25 10:45 04/01/25 10:10 04/01/25 10:10 04/01/25 08:25 FiO2 50 04/01/25 10:10 Narrative Exam General: Somnolent and lethargic Eyes: Pupils reactive to light, Ears: No visible ear discharge Nose: No visible nasal discharge. Mouth/Throat: Dry mucous membranes, no redness, lesion at the tip of the tongue with some dried blood around the mouth. Neck: Neck supple, no cervical lymphadenopathy. Lungs: Clear CHRISTIANO Cardio: Normal S1/S2, irregular and tacky, no murmurs, no JVD Abdomen: Soft, no palpable masses, peristalsis present, no guarding or rebound Extremities: Right BKA with cyanotic changes at the stump still present and is tender, left foot demarcated purplish discoloration and necrotic changes in toes unchanged, right upper extremity 2nd and 3rd digits show necrotic changes at the tips. Skin: Right 2nd and 3rd upper extremity digits show necrotic changes at the tips with some bullae at the rest of the digit, Left foot discoloration, bullae, and necrotic changes in toes. Neuro: Neurological status could not be assessed given patient's current mental status. Objective Labs 04/05/25 05:42 04/05/25 05:42 Labs: Laboratory Results - last 24 hr 03/31/25 03/31/25 04/01/25 05:42 16:06 03:25 WBC 9.7 D RBC 2.33 L Hgb 7.3 L Hct 24.0 L MCV 103 H MCH 31.3 MCHC 30.4 L RDW Std Deviation 61.9 H Plt Count 176 D Neut % (Auto) 84 H Lymph % (Auto) 3 L [place] % (Auto) 10 Eos % (Auto) 1 Baso % (Auto) 0 Neut # (Auto) 8.1 H Lymph # (Auto) 0.3 L [place] # (Auto) 1.0 H Eos # (Auto) 0.1 Baso # (Auto) 0.0 Immature Gran # (Auto) 0.16 H Absolute Nucleated RBC 0.00 Immature Gran % 2 H Nucleated RBC % 0 Smear Path Review Sent to Pathologist VBG pH VBG pCO2 VBG pO2 VBG O2 Sat (Guy) VBG Base Excess Sodium 131 L Potassium 6.4 H* D Chloride 97 L Carbon Dioxide 25.9 Anion Gap 8 BUN 69 H Creatinine 6.4 H* D Estim Creat Clear Calc 17.9 L eGFR 10 L* BUN/Creatinine Ratio 11 L Glucose 160 H D Calculated Osmolality 285 Calcium 8.0 L Corrected Calcium 8.5 Phosphorus 9.2 H Magnesium 2.1 Total Bilirubin 0.5 AST 18 ALT 44 Alkaline Phosphatase 110 Troponin I Total Protein 6.7 Albumin 3.4 L Globulin 3.3 Albumin/Globulin Ratio 1.0 L Random Vancomycin 14.1 Blood Type A Positive Antibody Screen NEGATIVE Crossmatch See Detail Blood Bank Wristband ID Yes 04/01/25 04/01/25 04:53 07:55 WBC RBC Hgb Hct MCV MCH MCHC RDW Std Deviation Plt Count Neut % (Auto) Lymph % (Auto) [place] % (Auto) Eos % (Auto) Baso % (Auto) Neut # (Auto) Lymph # (Auto) [place] # (Auto) Eos # (Auto) Baso # (Auto) Immature Gran # (Auto) Absolute Nucleated RBC Immature Gran % Nucleated RBC % Smear Path Review VBG pH 7.24 L VBG pCO2 57 H VBG pO2 51 VBG O2 Sat (Guy) 84 L VBG Base Excess -3 Sodium 131 L Potassium 5.8 H D Chloride 98 Carbon Dioxide 25.9 Anion Gap 7 BUN 66 H Creatinine 6.1 H* Estim Creat Clear Calc 18.8 L eGFR 10 L* BUN/Creatinine Ratio 11 L Glucose 135 H Calculated Osmolality 283 Calcium 8.3 Corrected Calcium 8.6 Phosphorus Magnesium Total Bilirubin 0.4 AST 10 ALT 41 Alkaline Phosphatase 106 Troponin I 0.131 H* Total Protein 6.8 Albumin 3.6 Globulin 3.2 Albumin/Globulin Ratio 1.1 L Random Vancomycin Blood Type Antibody Screen Crossmatch Blood Bank Wristband ID ABG Interpretation ABG results: 03/14/25 03/14/25 03/14/25 14:44 16:44 18:53 ABG pH 7.03 L* 7.04 L* 7.10 L* ABG pCO2 43 50 H 46 ABG pO2 86 128 H D 57 L* D ABG HCO3 11 L 13 L 14 L ABG O2 Saturation 91 97 78 L ABG Base Excess -19 L -17 L -15 L VBG pH VBG pCO2 VBG pO2 VBG Base Excess 03/14/25 03/15/25 03/15/25 21:20 05:07 12:28 ABG pH 7.21 L D 7.41 D ABG pCO2 32 D 31 L ABG pO2 116 H D 74 L D ABG HCO3 13 L 20 ABG O2 Saturation 97 95 ABG Base Excess -14 L -4 L VBG pH 7.43 VBG pCO2 34 L VBG pO2 37 VBG Base Excess -1 03/16/25 03/16/25 03/16/25 04:51 11:48 19:30 ABG pH 7.46 H 7.22 L D 7.38 D ABG pCO2 29 L 66 H D 48 D ABG pO2 78 L 79 L 236 H D ABG HCO3 21 27 H 29 H ABG O2 Saturation 96 91 100 H ABG Base Excess -2 -2 3 VBG pH VBG pCO2 VBG pO2 VBG Base Excess 03/17/25 03/18/25 03/19/25 04:53 09:27 04:46 ABG pH 7.38 7.35 ABG pCO2 49 H 48 ABG pO2 78 L D 92 ABG HCO3 29 H 26 ABG O2 Saturation 95 98 ABG Base Excess 3 0 VBG pH 7.34 VBG pCO2 54 D VBG pO2 34 VBG Base Excess 2 03/24/25 04/01/25 22:00 04:53 ABG pH 7.33 L ABG pCO2 48 ABG pO2 233 H ABG HCO3 25 ABG O2 Saturation 101 H ABG Base Excess -1 VBG pH 7.24 L VBG pCO2 57 H VBG pO2 51 VBG Base Excess -3 Quality Measures Quality Measures VTE prophylaxis Assessment & Plan Assessment Current Active Medications: Generic Name Dose Route Start Last Admin Trade Name Freq PRN Reason Stop Dose Admin Acetaminophen 650 mg 03/20/25 11:35 03/21/25 06:39 Acetaminophen 325 Mg Tablet PO 04/19/25 11:34 650 mg Q6HR PRN Administration pain and Fever >100.4 Protocol Hydrocodone Bitart/Acetaminophen 1 tab 03/28/25 08:32 03/31/25 19:38 Hydrocodone/Apap 7.5/325 Tablet PO 04/02/25 08:31 1 tab Q6HR PRN Administration PAIN SCALE 4-6 (Moderate Dextrose 25 ml 04/01/25 04:32 Dextrose 50%-Water Inj 50 Ml Syringe IV 05/01/25 04:31 Q15MIN PRN BG 50-70 responsive npo pt Dextrose 50 ml 04/01/25 04:32 04/01/25 05:21 Dextrose 50%-Water Inj 50 Ml Syringe IV 05/01/25 04:31 50 ml Q15MIN PRN Administration BG <50 OR BG <70 & pt unresponsive Diltiazem HCl 120 mg 03/30/25 09:00 04/01/25 10:20 Diltiazem Cd 120 Mg Capcr PO 04/29/25 08:59 Not Given QDAY [place] Glucagon 1 mg 04/01/25 04:32 Glucagon Inj 1 Mg Vial IM Q15MIN PRN BG <70, and no IV access Heparin Sodium (Porcine) 5,000 unit 03/23/25 21:00 04/01/25 10:23 Heparin Sod Inj 5000 Unit/Ml Vial SC 04/06/25 20:59 Not Given Q12HR [facility] Heparin Sodium (Porcine) 3,800 unit 03/30/25 08:26 03/30/25 11:38 Heparin Sod Inj 1000 Unit/Ml Vial 10 Ml INDWELLCAT 04/13/25 08:25 3,800 unit PRN PRN Administration DIALYSIS Amiodarone HCl/Dextrose 360 mg in 200 mls @ 16.667 mls/hr 04/01/25 09:00 04/01/25 09:55 Nexterone Ivpb IV 04/02/25 08:59 Not Given .Q12H [facility] Vancomycin/Sodium Chloride 100 mls @ 120 mls/hr 04/01/25 13:00 Vancomycin/Ns 500 Mg Ivpb IV 04/01/25 13:49 X1 ONE Albumin Human 25 gm in 100 mls @ 100 mls/hr 04/01/25 07:37 04/01/25 07:48 Albuminar-25 Ivpb IV 100 mls/hr PRN PRN Administration DIALYSIS Phenylephrine HCl 40 mg/ 100 mls @ 1.728 mls/hr 04/01/25 08:48 04/01/25 10:00 Sodium Chloride IV 05/01/25 08:47 1 mcg/kg/min .Q24H PRN 17.282 mls/hr Per Cardiogenic Protocol Titration Protocol 0.1 MCG/KG/MIN Insulin Human Lispro 0 unit 03/22/25 11:30 04/01/25 07:59 Insulin Lispro (Admelog) 1 Unit/0.01 Ml Unit SC 04/21/25 11:29 Not Given ACHS [facility] Protocol Levalbuterol HCl 0.31 mg 03/28/25 10:24 03/31/25 00:37 Levalbuterol Rt 0.31 Mg/3 Ml Nebu INH 04/19/25 12:14 0.31 mg Q6HRRT PRN Administration Wheezing Lorazepam 1 mg 04/01/25 08:11 Lorazepam 2 Mg/Ml Vial IVP Q5MIN PRN seizure Metoprolol Tartrate 2.5 mg 04/01/25 08:30 Metoprolol Tartrate Inj 1 Mg/Ml Amp 5 Ml IVP Q5MIN PRN TACHYCARDIA HR >120 Midodrine 10 mg 03/19/25 18:19 Midodrine 5 Mg Tablet GT 04/18/25 21:59 TID PRN MAP below 65 Ondansetron HCl 4 mg 03/14/25 17:31 03/30/25 01:39 Ondansetron Inj 2 Mg/Ml Inj 2 Ml IV 04/13/25 17:30 4 mg Q6H PRN Administration NAUSEA OR VOMITING Protocol Pantoprazole Sodium 40 mg 03/31/25 09:00 04/01/25 10:37 Pantoprazole Inj 40 Mg Vial IVP 04/30/25 08:59 40 mg QDAY [place] Administration Pharmacy Consult 1 each 03/27/25 08:44 Vancomycin Pharmacy To Dose 1 Each Each IV 04/23/25 16:59 QDAY PRN CONSULT Polyethylene Glycol 17 gm 03/26/25 18:00 04/01/25 10:21 Polyethylene Glycol 17 Gm Packet PO 04/25/25 17:59 Not Given QDAY [facility] Pregabalin 50 mg 04/01/25 09:00 04/01/25 10:22 Pregabalin 25 Mg Capsule PO 05/01/25 08:59 Not Given BID [facility] Sennosides 1 tab 03/26/25 18:00 04/01/25 10:22 Senna Tablet PO 04/25/25 17:59 Not Given QDAY [facility] Protocol Sodium Chloride 3 ml 03/31/25 06:26 Sodium Cl Rt Marjorie 3% 4 Ml Nebu (Non-Formulary) INH 04/16/25 18:59 Q6HRRT PRN To induce cough Plan Assessment and Plan: Summary: Mr. Mcclain is a 49 years old male with PMH of DM2, hypertension, ESRD (HD ), HFpEF (EF 55% on 2021), and right BKA due to osteomyelitis BIBA to the ED due to AMS, was intubated and started on pressors and was admitted to the ICU on 03/14/2025 for management of shock of unknown etiology and was started on IV antibiotics. On 03/17 his sputum culture grew stenotrophomonas maltophilia and antibiotics were changed to levofloxacin. He was extubated and downgraded to telemetry on 03/20/2025 for continuation of care. # End-stage renal disease Patient received CRRT in intensive care unit, was transition to hemodialysis. Patient will need a line holiday and placement of due to underlying bacteremia. Primary team to hold aspirin and Plavix, catheter will be exchanged in a.m. possibly Patient received permanent tunneled dialysis catheter placement on 03/26/2025. 04/01-Patient upgraded to ICU again, in shock undifferentiated requiring IV pressors Plan: - Continue with hemodialysis inpatient - Avoid nephrotoxic agents. - Renally dose medications. #Staph Hemolyticus bacteremia #CLABSI Patient tested for gram-positive cocci (staph hymolyticus ) 2/2 blood blood cultures on 03/21/2025 -Mx as per primrary team #Acute blood loss Anemia #Hematemesis. #Macrocytic anemia. #Thrombocytopenia. Hemoglobin 7.9, RBC 2.48, hematocrit 25%, MCV 101, platelets 131 today - Management as per primary team #HFrEF (EF 50-55% on 2024) #A-fib with RVR, rate controlled, MAT, SVT #Troponinemia - resolved Patient had improved ejection fraction compared to the echocardiogram from a week ago, cardiology is consulted. - Management as per primary team and cardiology #Possible acute vs chronic limb ischemia. #Peripheral Vascular disease, severe Patient has severe vascular disease, case was discussed by ICU team with a vascular surgeon at [facility] Patient is poor candidate for surgery per documentation Patient was evaluated by shadowgraph operator had cardiac catheterization and upper and lower extremity angiogram done. Per cardiology patient has disease in right lower limb, otherwise no significant PAD noted. Cardiology recommends amputation by general surgery orthopedics consulted as well #Acute hypoxic respiratory failure, improved. #Stenotrophomonas maltophilia pneumonia. #Respiratory acidosis, resolved. #Septic shock, resolved. - Management as per primary team #Transaminitis. #Hyperbilirubinemia #Hepatomegaly. #Hx of DM2. #Hypoglycemia, resolved. -Management per primary team Case discussed with Attending Dr. Pleitez. Marycarmen Clark PGY1 Disclaimer: This note was dictated by speech recognition. Minor errors in soybean specialties cook may be present due to voice recognition software. Attending Provider Attestation/Addendum Pt is seen and examined. Labs and investigations are reviewed. Agree witth assessment and plan by resident. agree with findings. Héctor Pleitez MD
[2025-04-01] MEDS: HEPARIN SOD INJ 1000 UNIT/ML VIAL 10 ML 3800 UNIT INDWELLCAT (11:08)
--- NOTE | 2025-04-01 11:09 | PC.SS ---
Update: Patient upgraded to ICU. Patient receiving dialysis today. Plan is for the patient to undergo BKA procedure today.
--- NOTE | 2025-04-01 11:14 | PD.RESPRO ---
Documentation for date of: 04/01/25 Exam Vital Signs Temp Pulse Resp BP Pulse Ox O2 Del Method O2 Flow Rate 97.0 F 67 20 111/50 L 94 L Mechanical Ventilation 15 04/01/25 10:57 04/01/25 11:01 04/01/25 10:57 04/01/25 11:01 04/01/25 10:57 04/01/25 10:10 04/01/25 08:25 FiO2 50 04/01/25 10:57 Objective Labs 04/01/25 03:25 04/01/25 07:55 Labs: Laboratory Results - last 24 hr 03/31/25 03/31/25 04/01/25 05:42 16:06 03:25 WBC 9.7 D RBC 2.33 L Hgb 7.3 L Hct 24.0 L MCV 103 H MCH 31.3 MCHC 30.4 L RDW Std Deviation 61.9 H Plt Count 176 D Neut % (Auto) 84 H Lymph % (Auto) 3 L [place] % (Auto) 10 Eos % (Auto) 1 Baso % (Auto) 0 Neut # (Auto) 8.1 H Lymph # (Auto) 0.3 L [place] # (Auto) 1.0 H Eos # (Auto) 0.1 Baso # (Auto) 0.0 Immature Gran # (Auto) 0.16 H Absolute Nucleated RBC 0.00 Immature Gran % 2 H Nucleated RBC % 0 Smear Path Review Sent to Pathologist VBG pH VBG pCO2 VBG pO2 VBG O2 Sat (Guy) VBG Base Excess Sodium 131 L Potassium 6.4 H* D Chloride 97 L Carbon Dioxide 25.9 Anion Gap 8 BUN 69 H Creatinine 6.4 H* D Estim Creat Clear Calc 17.9 L eGFR 10 L* BUN/Creatinine Ratio 11 L Glucose 160 H D Calculated Osmolality 285 Calcium 8.0 L Corrected Calcium 8.5 Phosphorus 9.2 H Magnesium 2.1 Total Bilirubin 0.5 AST 18 ALT 44 Alkaline Phosphatase 110 Troponin I Total Protein 6.7 Albumin 3.4 L Globulin 3.3 Albumin/Globulin Ratio 1.0 L Random Vancomycin 14.1 Blood Type A Positive Antibody Screen NEGATIVE Crossmatch See Detail Blood Bank Wristband ID Yes 04/01/25 04/01/25 04:53 07:55 WBC RBC Hgb Hct MCV MCH MCHC RDW Std Deviation Plt Count Neut % (Auto) Lymph % (Auto) [place] % (Auto) Eos % (Auto) Baso % (Auto) Neut # (Auto) Lymph # (Auto) [place] # (Auto) Eos # (Auto) Baso # (Auto) Immature Gran # (Auto) Absolute Nucleated RBC Immature Gran % Nucleated RBC % Smear Path Review VBG pH 7.24 L VBG pCO2 57 H VBG pO2 51 VBG O2 Sat (Guy) 84 L VBG Base Excess -3 Sodium 131 L Potassium 5.8 H D Chloride 98 Carbon Dioxide 25.9 Anion Gap 7 BUN 66 H Creatinine 6.1 H* Estim Creat Clear Calc 18.8 L eGFR 10 L* BUN/Creatinine Ratio 11 L Glucose 135 H Calculated Osmolality 283 Calcium 8.3 Corrected Calcium 8.6 Phosphorus Magnesium Total Bilirubin 0.4 AST 10 ALT 41 Alkaline Phosphatase 106 Troponin I 0.131 H* Total Protein 6.8 Albumin 3.6 Globulin 3.2 Albumin/Globulin Ratio 1.1 L Random Vancomycin Blood Type Antibody Screen Crossmatch Blood Bank Wristband ID ABG Interpretation ABG results: 03/14/25 03/14/25 03/14/25 14:44 16:44 18:53 ABG pH 7.03 L* 7.04 L* 7.10 L* ABG pCO2 43 50 H 46 ABG pO2 86 128 H D 57 L* D ABG HCO3 11 L 13 L 14 L ABG O2 Saturation 91 97 78 L ABG Base Excess -19 L -17 L -15 L VBG pH VBG pCO2 VBG pO2 VBG Base Excess 03/14/25 03/15/25 03/15/25 21:20 05:07 12:28 ABG pH 7.21 L D 7.41 D ABG pCO2 32 D 31 L ABG pO2 116 H D 74 L D ABG HCO3 13 L 20 ABG O2 Saturation 97 95 ABG Base Excess -14 L -4 L VBG pH 7.43 VBG pCO2 34 L VBG pO2 37 VBG Base Excess -1 03/16/25 03/16/25 03/16/25 04:51 11:48 19:30 ABG pH 7.46 H 7.22 L D 7.38 D ABG pCO2 29 L 66 H D 48 D ABG pO2 78 L 79 L 236 H D ABG HCO3 21 27 H 29 H ABG O2 Saturation 96 91 100 H ABG Base Excess -2 -2 3 VBG pH VBG pCO2 VBG pO2 VBG Base Excess 03/17/25 03/18/25 03/19/25 04:53 09:27 04:46 ABG pH 7.38 7.35 ABG pCO2 49 H 48 ABG pO2 78 L D 92 ABG HCO3 29 H 26 ABG O2 Saturation 95 98 ABG Base Excess 3 0 VBG pH 7.34 VBG pCO2 54 D VBG pO2 34 VBG Base Excess 2 03/24/25 04/01/25 22:00 04:53 ABG pH 7.33 L ABG pCO2 48 ABG pO2 233 H ABG HCO3 25 ABG O2 Saturation 101 H ABG Base Excess -1 VBG pH 7.24 L VBG pCO2 57 H VBG pO2 51 VBG Base Excess -3 Quality Measures Quality Measures VTE prophylaxis Assessment & Plan Assessment Current Active Medications: Generic Name Dose Route Start Last Admin Trade Name Freq PRN Reason Stop Dose Admin Acetaminophen 650 mg 03/20/25 11:35 03/21/25 06:39 Acetaminophen 325 Mg Tablet PO 04/19/25 11:34 650 mg Q6HR PRN Administration pain and Fever >100.4 Protocol Hydrocodone Bitart/Acetaminophen 1 tab 03/28/25 08:32 03/31/25 19:38 Hydrocodone/Apap 7.5/325 Tablet PO 04/02/25 08:31 1 tab Q6HR PRN Administration PAIN SCALE 4-6 (Moderate Dextrose 25 ml 04/01/25 04:32 Dextrose 50%-Water Inj 50 Ml Syringe IV 05/01/25 04:31 Q15MIN PRN BG 50-70 responsive npo pt Dextrose 50 ml 04/01/25 04:32 04/01/25 05:21 Dextrose 50%-Water Inj 50 Ml Syringe IV 05/01/25 04:31 50 ml Q15MIN PRN Administration BG <50 OR BG <70 & pt unresponsive Diltiazem HCl 120 mg 03/30/25 09:00 04/01/25 10:20 Diltiazem Cd 120 Mg Capcr PO 04/29/25 08:59 Not Given QDAY [place] Glucagon 1 mg 04/01/25 04:32 Glucagon Inj 1 Mg Vial IM Q15MIN PRN BG <70, and no IV access Heparin Sodium (Porcine) 5,000 unit 03/23/25 21:00 04/01/25 10:23 Heparin Sod Inj 5000 Unit/Ml Vial SC 04/06/25 20:59 Not Given Q12HR [facility] Heparin Sodium (Porcine) 3,800 unit 03/30/25 08:26 04/01/25 11:08 Heparin Sod Inj 1000 Unit/Ml Vial 10 Ml INDWELLCAT 04/13/25 08:25 3,800 unit PRN PRN Administration DIALYSIS Amiodarone HCl/Dextrose 360 mg in 200 mls @ 16.667 mls/hr 04/01/25 09:00 04/01/25 09:55 Nexterone Ivpb IV 04/02/25 08:59 Not Given .Q12H [facility] Vancomycin/Sodium Chloride 100 mls @ 120 mls/hr 04/01/25 13:00 Vancomycin/Ns 500 Mg Ivpb IV 04/01/25 13:49 X1 ONE Albumin Human 25 gm in 100 mls @ 100 mls/hr 04/01/25 07:37 04/01/25 07:48 Albuminar-25 Ivpb IV 100 mls/hr PRN PRN Administration DIALYSIS Phenylephrine HCl 40 mg/ 100 mls @ 1.728 mls/hr 04/01/25 08:48 04/01/25 10:00 Sodium Chloride IV 05/01/25 08:47 1 mcg/kg/min .Q24H PRN 17.282 mls/hr Per Cardiogenic Protocol Titration Protocol 0.1 MCG/KG/MIN Insulin Human Lispro 0 unit 03/22/25 11:30 04/01/25 11:11 Insulin Lispro (Admelog) 1 Unit/0.01 Ml Unit SC 04/21/25 11:29 Not Given ACHS [facility] Protocol Levalbuterol HCl 0.31 mg 03/28/25 10:24 03/31/25 00:37 Levalbuterol Rt 0.31 Mg/3 Ml Nebu INH 04/19/25 12:14 0.31 mg Q6HRRT PRN Administration Wheezing Lorazepam 1 mg 04/01/25 08:11 Lorazepam 2 Mg/Ml Vial IVP Q5MIN PRN seizure Metoprolol Tartrate 2.5 mg 04/01/25 08:30 Metoprolol Tartrate Inj 1 Mg/Ml Amp 5 Ml IVP Q5MIN PRN TACHYCARDIA HR >120 Midodrine 10 mg 03/19/25 18:19 Midodrine 5 Mg Tablet GT 04/18/25 21:59 TID PRN MAP below 65 Ondansetron HCl 4 mg 03/14/25 17:31 03/30/25 01:39 Ondansetron Inj 2 Mg/Ml Inj 2 Ml IV 04/13/25 17:30 4 mg Q6H PRN Administration NAUSEA OR VOMITING Protocol Pantoprazole Sodium 40 mg 03/31/25 09:00 04/01/25 10:37 Pantoprazole Inj 40 Mg Vial IVP 04/30/25 08:59 40 mg QDAY [place] Administration Pharmacy Consult 1 each 03/27/25 08:44 Vancomycin Pharmacy To Dose 1 Each Each IV 04/23/25 16:59 QDAY PRN CONSULT Polyethylene Glycol 17 gm 03/26/25 18:00 04/01/25 10:21 Polyethylene Glycol 17 Gm Packet PO 04/25/25 17:59 Not Given QDAY [place] Pregabalin 50 mg 04/01/25 09:00 04/01/25 10:22 Pregabalin 25 Mg Capsule PO 05/01/25 08:59 Not Given BID [place] Sennosides 1 tab 03/26/25 18:00 04/01/25 10:22 Senna Tablet PO 04/25/25 17:59 Not Given QDAY [facility] Protocol Sodium Chloride 3 ml 03/31/25 06:26 Sodium Cl Rt Marjorie 3% 4 Ml Nebu (Non-Formulary) INH 04/16/25 18:59 Q6HRRT PRN To induce cough
[2025-04-01 11:25] LABS: Basophils % (Auto) 0 % (0-2.5); Eosinophils % (Auto) 0 % (0-10); Hematocrit 27.4 % (41.0-53.0); Immature Granulocytes % (Auto) 2 % (0-0); Immature Granulocytes Auto 0.27 Thou/mm3 (0.00-0.00); Lactate (Lactic Acid) 0.9 mMol/L (0.4-2.0); Lymphocytes # (Auto) 0.3 Thou/mm3 (1.0-4.8); Lymphocytes % (Auto) 3 % (10-50); Mean Corpuscular HGB Conc 30.3 g/dl (31.0-37.0); Mean Corpuscular Hemoglobin 30.9 pg (25.0-35.0); Mean Corpuscular Volume 102 fL (80-100); Monocytes # (Auto) 0.8 Thou/mm3 (0.0-0.8); Monocytes % (Auto) 6 % (0-12); Neutrophils # (Auto) 11.4 Thou/mm3 (1.8-7.7); Neutrophils % (Auto) 89 % (37-80); Nucleated Red Blood Cell % 0 /100 WBC (0); Platelet Count 312 Thou/mm3 (140-440); RDW Standard Deviation 65.1 fL (35.1-43.9); Red Blood Count 2.69 Miln/mm3 (4.50-5.90); White Blood Count 12.8 Thou/mm3 (3.8-10.6)
--- NOTE | 2025-04-01 11:30 | ESCONSULT_ITS ---
HPI Data of Consult Requesting Physician: Duran Colunga MD Admitting Provider: Yessi Putnam MD Attending Provider: Duran Colunga MD Primary Care Provider: Margarita Carolina PA-C Consult Narrative History of present illness: Patient is a 49 year old male with a past medical history of diabetes mellitus type 2, Hypertension, ESRD (T/), HFpEF 50 to 55% w/ mild hypokinesis of anteroseptal wall (03/23/2025), Right BKA who was initially admitted on 03/14/2025 for shock requiring pressor on unknown etiology, suspected septic given lower limb ischemia. Patient previous downgraded on 03/20/2025 to floors team for further management. ICU team consulted on 04/01/2025 shock likely septic in nature requiring phenylenphrine. Rapid response called at 7:48 AM for possible seizure likel activity, patient received Ativan. MAP noted at the time of 70. Second rapid response called at 8:20 AM for HR of 140s, spo2 of 80s/70s appearing lethargic and MAP of 55-64. Given hymodynamic instability, decision was made by patient's cardiovert patient. Patient DNI/DRI but elected fro cardioversion and upgrade to ICU. Amiodarone drip started overnight and discontinued during rapid response this morning. Shortly after arrival to ICU patient was taken by general surgery for schedule left lower extremity BKA. Patient started on phenylephrine secondary to shock. cc:: cc: Duran Colunga MD Review of Systems Review of Systems Narrative Review of Systems: General appearance: NO weight change, NO fatigue, NO weakness, NO fever, NO chills, NO night sweats, No cough, [id number] Skin: NO rash, NO itching, NO sores, NO moles HEENT: NO Trauma, NO nausea, NO vomiting, NO visual changes, NO blurry vision, NO double vision, NO tinnitus, NO vertigo, NO ear discharge, NO rhinorrhea, NO stuffiness, NO sneezing, NO allergy, NO epistaxis. NO Hoarseness, NO sore throat, NO swollen neck. Cardiac: NO Palpitations, NO dyspnea on exertion, NO orthopnea, NO paroxysmal nocturnal dyspnea, NO edema, tachycardia followed by bradycardia. Respiratory: NO Shortness of Breath, NO Wheezing, NO Cough, NO Sputum, NO hemoptysis GI:NO appetite, NO nausea, NO vomiting, NO dysphagia, NO changes in bowel frequency, NO stool color, NO diarrhea, NO constipation, NO hemetemesis, NO hemorrhoids, NO melena, NO hematechezia, NO abdominal pain, NO jaundice Renal: NO frequency, NO hesitancy, NO urgency, NO hematuria, NO nocturia, NO incontinence, ESRD patient MSK: NO muscle weakness, NO gout, NO arthritis, NO muscle stiffness Neuro: NO headaches, NO tremors, NO weakness, NO paralysis, NO seizures, NO loss of consciousness, NO numbness. Hem: NO anemia, NO easy bruising/bleeding, NO petechiae, NO purpura Endo: NO heat/cold intolerance, NO excessive sweating, NO polyuria, NO polydipsia, NO polyphagia, NO thyroid problems, NO diabetes Pysch: NO mood, NO anxiety, NO depression Exam Vital Signs Temp Pulse Resp BP Pulse Ox O2 Del Method O2 Flow Rate 98.3 F 61 13 100/51 L 99 Mechanical Ventilation 50 04/01/25 16:00 04/01/25 16:30 04/01/25 16:30 04/01/25 14:05 04/01/25 16:30 04/01/25 16:30 04/01/25 11:45 FiO2 75 04/01/25 16:30 Narrative Exam General Appearance: Alert & Oriented X0, well-nourished male who is lying in bed with bilateral BKA. Right lower digits necrosis noted. HEENT: Skull symmetrical and atraumatic. Conjunctivae pink and moist. Pupils equal, round, reactive to light and accommodation (PERRL). External ear without lesion or discharge. Straight, nares patient, mucosa pink, no discharge. Cardio: Normal Rate and Rhythm with S1 and S2 heart sounds. No murmurs or extra heart sounds auscultated. No bruits on carotid auscultation. Lungs: Symmetric with good expansion. Chest and back non-tender. Breath sounds vesicular without crackles or rhonchi Abdomen: Non-tender, Non-distended, Normal Reactive Bowel Sounds Neuro: NO Alert, NO cooperative, No oriented to person, No place, and No time. Unable to access, motor strength, patient unable to follow commands Results Labs 04/02/25 04:36 04/02/25 04:36 Labs: Short CBC 04/01/25 04/01/25 Range/Units 03:25 11:14 WBC 9.7 D 12.8 H (3.8-10.6) Thou/mm3 Hgb 7.3 L 8.3 L (13.5-16.0) g/dL Hct 24.0 L 27.4 L (41.0-53.0) % Plt Count 176 D 312 D (140-440) Thou/mm3 BMP 04/01/25 04/01/25 04/01/25 03:25 07:55 11:14 Sodium 131 L 131 L 131 L Potassium 6.4 H* D 5.8 H D 4.6 D Chloride 97 L 98 97 L Carbon Dioxide 25.9 25.9 27.3 BUN 69 H 66 H 39 H Creatinine 6.4 H* D 6.1 H* 4.2 H* D Glucose 160 H D 135 H 136 H Calcium 8.0 L 8.3 8.6 Cardiac Enzymes 04/01/25 04/01/25 Range/Units 07:55 11:14 Total Creatine Kinase < 15 L D (34-171) U/L Troponin I 0.131 H* 0.160 H* (0.0-0.045) ng/mL Liver Function 04/01/25 04/01/25 04/01/25 Range/Units 03:25 07:55 11:14 Total Bilirubin 0.5 0.4 0.7 (0.3-1.2) mg/dL AST 18 10 16 (0-34) U/L ALT 44 41 45 (10-49) U/L Alkaline Phosphatase 110 106 114 (46-116) U/L Albumin 3.4 L 3.6 3.8 (3.5-5.0) gm/dL ABG Interpretation ABG results: 03/14/25 03/14/25 03/14/25 14:44 16:44 18:53 ABG pH 7.03 L* 7.04 L* 7.10 L* ABG pCO2 43 50 H 46 ABG pO2 86 128 H D 57 L* D ABG HCO3 11 L 13 L 14 L ABG O2 Saturation 91 97 78 L ABG Base Excess -19 L -17 L -15 L VBG pH VBG pCO2 VBG pO2 VBG Base Excess 03/14/25 03/15/25 03/15/25 21:20 05:07 12:28 ABG pH 7.21 L D 7.41 D ABG pCO2 32 D 31 L ABG pO2 116 H D 74 L D ABG HCO3 13 L 20 ABG O2 Saturation 97 95 ABG Base Excess -14 L -4 L VBG pH 7.43 VBG pCO2 34 L VBG pO2 37 VBG Base Excess -1 03/16/25 03/16/25 03/16/25 04:51 11:48 19:30 ABG pH 7.46 H 7.22 L D 7.38 D ABG pCO2 29 L 66 H D 48 D ABG pO2 78 L 79 L 236 H D ABG HCO3 21 27 H 29 H ABG O2 Saturation 96 91 100 H ABG Base Excess -2 -2 3 VBG pH VBG pCO2 VBG pO2 VBG Base Excess 03/17/25 03/18/25 03/19/25 04:53 09:27 04:46 ABG pH 7.38 7.35 ABG pCO2 49 H 48 ABG pO2 78 L D 92 ABG HCO3 29 H 26 ABG O2 Saturation 95 98 ABG Base Excess 3 0 VBG pH 7.34 VBG pCO2 54 D VBG pO2 34 VBG Base Excess 2 03/24/25 04/01/25 04/01/25 22:00 04:53 15:50 ABG pH 7.33 L 7.23 L ABG pCO2 48 62 H ABG pO2 233 H 102 ABG HCO3 25 26 ABG O2 Saturation 101 H 98 ABG Base Excess -1 -2 VBG pH 7.24 L VBG pCO2 57 H VBG pO2 51 VBG Base Excess -3 Quality Measures Quality Measures VTE prophylaxis Medications Home Medications and Allergies Home Medications ?Medication ?Instructions ?Recorded ?Confirmed ?Type No Known Home Medications 03/28/25 0503/19 History Allergies Allergy/AdvReac Type Severity Reaction Status Date / Time No Known Allergies Allergy Verified 03/29/25 14:17 Visit Medications Acetaminophen (Acetaminophen 325 Mg Tablet) 650 mg PO Q6HR PRN; Protocol PRN Reason: pain and Fever >100.4 Stop: 04/19/25 11:34 Last Admin: 03/21/25 06:39 Dose: 650 mg Hydrocodone Bitart/Acetaminophen (Hydrocodone/Apap 7.5/325 Tablet) 1 tab PO Q6HR PRN PRN Reason: PAIN SCALE 4-6 (Moderate Stop: 04/02/25 08:31 Last Admin: 03/31/25 19:38 Dose: 1 tab Dextrose (Dextrose 50%-Water Inj 50 Ml Syringe) 25 ml IV Q15MIN PRN PRN Reason: BG 50-70 responsive npo pt Stop: 05/01/25 04:31 Dextrose (Dextrose 50%-Water Inj 50 Ml Syringe) 50 ml IV Q15MIN PRN PRN Reason: BG <50 OR BG <70 & pt unresponsive Stop: 05/01/25 04:31 Last Admin: 04/01/25 05:21 Dose: 50 ml Diltiazem HCl (Diltiazem Cd 120 Mg Capcr) 120 mg PO QDAY [place] Stop: 04/29/25 08:59 Last Admin: 04/01/25 10:20 Dose: Not Given Glucagon (Glucagon Inj 1 Mg Vial) 1 mg IM Q15MIN PRN PRN Reason: BG <70, and no IV access Heparin Sodium (Porcine) (Heparin Sod Inj 5000 Unit/Ml Vial) 5,000 unit SC Q12HR [place] Stop: 04/06/25 20:59 Last Admin: 04/01/25 10:23 Dose: Not Given Heparin Sodium (Porcine) (Heparin Sod Inj 1000 Unit/Ml Vial 10 Ml) 3,800 unit [place] PRN PRN PRN Reason: DIALYSIS Stop: 04/13/25 08:25 Last Admin: 04/01/25 11:08 Dose: 3,800 unit Amiodarone HCl/Dextrose (Nexterone Ivpb) 360 mg in 200 mls @ 16.667 mls/hr IV .Q12H [place] Stop: 04/02/25 08:59 Last Admin: 04/01/25 09:55 Dose: Not Given Albumin Human (Albuminar-25 Ivpb) 25 gm in 100 mls @ 100 mls/hr IV PRN PRN PRN Reason: DIALYSIS Last Admin: 04/01/25 07:48 Dose: 100 mls/hr Phenylephrine HCl 40 mg/ (Sodium Chloride) 100 mls @ 1.728 mls/hr IV .Q24H PRN; Protocol PRN Reason: Per Cardiogenic Protocol Stop: 05/01/25 08:47 Last Titration: 04/01/25 16:25 Dose: 0.5 mcg/kg/min, 8.641 mls/hr Daptomycin 500 mg/ Sodium Chloride 10 ml/ Sodium Chloride 60 mls @ 120 mls/hr IV QOD@1500 [facility]; Protocol Stop: 04/08/25 14:59 Last Admin: 04/01/25 16:41 Dose: 120 mls/hr Vasopressin/Sodium Chloride (Vasostrict/Ns Ivpb) 20 unit in 100 mls @ 9 mls/hr IV .Q11H7M PRN; Protocol PRN Reason: PER PROTOCOL Stop: 05/01/25 13:59 Insulin Human Lispro (Insulin Lispro (Admelog) 1 Unit/0.01 Ml Unit) 0 unit SC ACHS [facility]; Protocol Stop: 04/21/25 11:29 Last Admin: 04/01/25 11:11 Dose: Not Given Levalbuterol HCl (Levalbuterol Rt 0.31 Mg/3 Ml Nebu) 0.31 mg INH Q6HRRT PRN PRN Reason: Wheezing Stop: 04/19/25 12:14 Last Admin: 03/31/25 00:37 Dose: 0.31 mg Lorazepam (Lorazepam 2 Mg/Ml Vial) 1 mg IVP Q5MIN PRN PRN Reason: seizure Metoprolol Tartrate (Metoprolol Tartrate Inj 1 Mg/Ml Amp 5 Ml) 2.5 mg IVP Q5MIN PRN PRN Reason: TACHYCARDIA HR >120 Midodrine (Midodrine 5 Mg Tablet) 10 mg GT TID PRN PRN Reason: MAP below 65 Stop: 04/18/25 21:59 Ondansetron HCl (Ondansetron Inj 2 Mg/Ml Inj 2 Ml) 4 mg IV Q6H PRN; Protocol PRN Reason: NAUSEA OR VOMITING Stop: 04/13/25 17:30 Last Admin: 03/30/25 01:39 Dose: 4 mg Pantoprazole Sodium (Pantoprazole Inj 40 Mg Vial) 40 mg IVP QDAY [facility] Stop: 04/30/25 08:59 Last Admin: 04/01/25 10:37 Dose: 40 mg Polyethylene Glycol (Polyethylene Glycol 17 Gm Packet) 17 gm PO QDAY [facility] Stop: 04/25/25 17:59 Last Admin: 04/01/25 10:21 Dose: Not Given Pregabalin (Pregabalin 25 Mg Capsule) 50 mg PO BID [facility] Stop: 05/01/25 08:59 Last Admin: 04/01/25 10:22 Dose: Not Given Sennosides (Senna Tablet) 1 tab PO QDAY [facility]; Protocol Stop: 04/25/25 17:59 Last Admin: 04/01/25 10:22 Dose: Not Given Sodium Chloride (Sodium Cl Rt Marjorie 3% 4 Ml Nebu (Non-Formulary)) 3 ml INH Q6HRRT PRN PRN Reason: To induce cough Stop: 04/16/25 18:59 Discontinued Medications Acetaminophen (Acetaminophen Supp 650 Mg Supp) 650 mg UT Q6HR PRN PRN Reason: FEVER>101.5 Stop: 04/13/25 17:30 Hydrocodone Bitart/Acetaminophen (Hydrocodone/Apap 5/325 Tablet) 1 tab PO Q6HR PRN PRN Reason: Pain 4-10 Stop: 03/25/25 19:41 Last Admin: 03/21/25 14:56 Dose: 1 tab Hydrocodone Bitart/Acetaminophen (Hydrocodone/Apap 5/325 Tablet) 1 tab PO Q6HR PRN PRN Reason: Pain 4-6 Stop: 03/25/25 19:41 Last Admin: 03/23/25 08:23 Dose: 1 tab Hydrocodone Bitart/Acetaminophen (Hydrocodone/Apap 10/325 Tab) 1 tab PO Q6HR PRN PRN Reason: PAIN 4-6 Stop: 03/28/25 09:59 Hydrocodone Bitart/Acetaminophen (Hydrocodone/Apap 10/325 Tab) 1 tab PO Q6HR [place] Stop: 03/28/25 17:59 Last Admin: 03/24/25 05:37 Dose: 1 tab Hydrocodone Bitart/Acetaminophen (Hydrocodone/Apap 5/325 Tablet) 1 tab PO Q6HR PRN PRN Reason: PAIN SCALE 4-6 (Moderate Stop: 04/01/25 08:39 Last Admin: 03/27/25 21:10 Dose: 1 tab Adenosine (Adenosine Inj 3 Mg/Ml Vial) 6 mg IVP X1 ONE Stop: 03/16/25 12:18 Last Admin: 03/16/25 12:17 Dose: 6 mg Adenosine (Adenosine Inj 3 Mg/Ml Vial) 12 mg IVP X1 ONE Stop: 03/16/25 12:19 Last Admin: 03/16/25 12:18 Dose: 12 mg Albuterol (Albuterol Rt 2.5 Mg/3 Ml Nebu) 2.5 mg INH 5 TIMES DAILY [place] Stop: 04/13/25 17:59 Albuterol (Albuterol Rt 2.5 Mg/0.5 Ml Nebu) 2.5 mg INH 5 TIMES DAILY [place] Stop: 04/13/25 17:59 Last Admin: 03/14/25 18:06 Dose: 2.5 mg Alteplase, Recombinant (Alteplase Recomb Inj 2 Mg Vial) 4 mg [place] X1 ONE Stop: 03/27/25 09:59 Last Admin: 03/27/25 10:08 Dose: 4 mg Amiodarone HCl (Amiodarone Hcl 200 Mg Tablet) 200 mg GT BID [place] Stop: 04/18/25 20:59 Last Admin: 03/31/25 20:58 Dose: 200 mg Aspirin (Aspirin Ec 81 Mg Tabec) 81 mg PO QDAY [place] Stop: 04/14/25 10:29 Last Admin: 03/15/25 11:11 Dose: Not Given Aspirin (Aspirin 81 Mg Chew) 81 mg GT QDAY [place] Stop: 04/14/25 10:29 Aspirin (Aspirin 325 Mg Tablet) 325 mg GT NOW ONE Stop: 03/15/25 11:37 Last Admin: 03/15/25 15:35 Dose: 325 mg Aspirin (Aspirin 81 Mg Chew) 81 mg GT QDAY [place] Stop: 04/15/25 08:59 Last Admin: 03/25/25 11:33 Dose: Not Given Calcium Carbonate (Calcium Carbonate 600 Mg Tablet) 600 mg PO QDAY ONE Stop: 03/23/25 08:03 Last Admin: 03/23/25 08:27 Dose: 600 mg Calcium Chloride (Calcium Chloride 10% Inj 10 Ml Syrg) 10 ml IV X1 ONE Stop: 04/01/25 04:33 Last Admin: 04/01/25 05:21 Dose: 10 ml Calcium Gluconate (Calcium Gluconate 10% Inj 1 Gm/10 Ml Vial) 1 gm IV X1 ONE Stop: 03/15/25 04:13 Last Admin: 03/15/25 04:34 Dose: 1 gm Calcium Gluconate (Calcium Gluconate 10% Inj 1 Gm/10 Ml Vial) 1 gm IV X1 ONE Stop: 03/15/25 20:21 Last Admin: 03/16/25 02:32 Dose: Not Given Calcium Gluconate (Calcium Gluconate 10% Inj 1 Gm/10 Ml Vial) 1 gm IV X1 ONE Stop: 03/16/25 02:00 Last Admin: 03/16/25 02:32 Dose: Not Given Calcium Gluconate (Calcium Gluconate 10% Inj 1 Gm/10 Ml Vial) 1 gm IV X1 ONE Stop: 03/16/25 07:51 Last Admin: 03/16/25 08:51 Dose: Not Given Clopidogrel Bisulfate (Clopidogrel Bisulfate 75 Mg Tablet) 75 mg PO QDAY [facility] Stop: 04/14/25 10:29 Last Admin: 03/15/25 11:11 Dose: Not Given Clopidogrel Bisulfate (Clopidogrel Bisulfate 75 Mg Tablet) 75 mg GT QDAY [facility] Stop: 04/14/25 10:29 Last Admin: 03/25/25 11:34 Dose: Not Given Dextrose (Dextrose 50%-Water Inj 50 Ml Syringe) 50 ml IV X1 ONE Stop: 03/14/25 14:19 Last Admin: 03/14/25 14:22 Dose: 50 ml Dextrose (Dextrose 50%-Water Inj 50 Ml Syringe) 50 ml IV X1 ONE Stop: 03/14/25 14:20 Last Admin: 03/14/25 14:22 Dose: 50 ml Dextrose (Dextrose 50%-Water Inj 50 Ml Syringe) 50 ml IV X1 ONE Stop: 03/14/25 14:30 Last Admin: 03/14/25 14:32 Dose: 50 ml Dextrose (Dextrose 50%-Water Inj 50 Ml Syringe) 50 ml IV X1 ONE Stop: 03/14/25 14:53 Last Admin: 03/14/25 14:54 Dose: 50 ml Dextrose (Dextrose 50%-Water Inj 50 Ml Syringe) 100 ml IV X1 ONE Stop: 03/14/25 15:23 Last Admin: 03/14/25 15:26 Dose: 100 ml Dextrose (Dextrose 50%-Water Inj 50 Ml Syringe) 50 ml IV X1 ONE Stop: 03/14/25 16:17 Last Admin: 03/14/25 16:17 Dose: 50 ml Dextrose (Dextrose 50%-Water Inj 50 Ml Syringe) 25 ml IV Q15MIN PRN PRN Reason: BG 50-70 responsive npo pt Stop: 04/13/25 17:35 Dextrose (Dextrose 50%-Water Inj 50 Ml Syringe) 50 ml IV Q15MIN PRN PRN Reason: BG <50 OR BG <70 & pt unresponsive Stop: 04/13/25 17:35 Dextrose (Dextrose 50%-Water Inj 50 Ml Syringe) 25 ml IV Q15MIN PRN PRN Reason: BG 50-70 responsive npo pt Stop: 04/13/25 20:37 Last Admin: 03/20/25 23:30 Dose: 25 ml Dextrose (Dextrose 50%-Water Inj 50 Ml Syringe) 50 ml IV Q15MIN PRN PRN Reason: BG <50 OR BG <70 & pt unresponsive Stop: 04/13/25 20:37 Dextrose (Dextrose 50%-Water Inj 50 Ml Syringe) 25 ml IV X1 ONE Stop: 03/15/25 04:24 Last Admin: 03/15/25 04:34 Dose: 25 ml Diazepam (Diazepam 5 Mg Tablet) 5 mg PO X1 ONE Stop: 03/29/25 10:28 Last Admin: 03/29/25 10:30 Dose: 5 mg Diltiazem HCl (Diltiazem Inj 5 Mg/Ml Vial 5 Ml) 20 mg IV X1 ONE Stop: 03/14/25 14:28 Last Admin: 03/14/25 14:35 Dose: 20 mg Diphenhydramine HCl (Diphenhydramine Inj 50 Mg/Ml Vial) 50 mg IVP X1 ONE Stop: 03/28/25 12:40 Last Admin: 03/28/25 16:42 Dose: Not Given Diphenhydramine HCl (Diphenhydramine Inj 50 Mg/Ml Vial) 50 mg IVP X1 ONE Stop: 03/29/25 14:01 Last Admin: 03/30/25 02:19 Dose: Not Given Epoetin Jose (Epoetin Jose Inj 1,000 Unit/0.05 Ml Unit) 10,000 unit SC X1 ONE Stop: 03/30/25 10:01 Last Admin: 03/30/25 10:58 Dose: 10,000 unit Epoetin Jose (Epoetin Jose Inj 1,000 Unit/0.05 Ml Unit) 10,000 unit SC X1 ONE Stop: 04/01/25 12:46 Last Admin: 04/01/25 16:55 Dose: 10,000 unit Etomidate (Etomidate Inj 2 Mg/Ml Vial 10 Ml) 20 mg IVP X1 ONE Stop: 03/14/25 15:21 Last Admin: 03/14/25 15:30 Dose: 20 mg Famotidine (Famotidine Inj 10 Mg/Ml Vial 2 Ml) 20 mg IVP X1 ONE Stop: 03/28/25 12:40 Last Admin: 03/28/25 16:42 Dose: Not Given Famotidine (Famotidine Inj 10 Mg/Ml Vial 2 Ml) 20 mg IVP X1 ONE Stop: 03/28/25 14:01 Last Admin: 03/28/25 16:43 Dose: Not Given Fentanyl Citrate (Fentanyl Cit Inj 50 Mcg/Ml Amp 2ml) 50 mcg IVP X1 ONE Stop: 03/26/25 11:01 Last Admin: 03/26/25 11:08 Dose: 50 mcg Furosemide (Furosemide Inj 10 Mg/Ml Vial 2 Ml) 40 mg IVP X1 ONE Stop: 04/01/25 04:33 Last Admin: 04/01/25 05:22 Dose: 40 mg Gabapentin (Gabapentin 100 Mg Capsule) 100 mg PO TID [place] Stop: 04/26/25 15:44 Last Admin: 03/28/25 05:34 Dose: 100 mg Gabapentin (Gabapentin 100 Mg Capsule) 200 mg PO TID [place] Stop: 04/27/25 08:29 Last Admin: 03/30/25 02:22 Dose: Not Given Glucagon (Glucagon Inj 1 Mg Vial) 1 mg IM Q15MIN PRN PRN Reason: BG <70, and no IV access Glucagon (Glucagon Inj 1 Mg Vial) 1 mg IM Q15MIN PRN PRN Reason: BG <70, and no IV access Heparin Sodium (Beef Lung) (Heparin Sod Lock Syr 100 Unit/Ml) 500 unit [place] X1 ONE Stop: 03/17/25 15:16 Last Admin: 03/17/25 16:56 Dose: Not Given Heparin Sodium (Beef Lung) (Heparin Sod Lock Syr 100 Unit/Ml) 500 unit IV X1 ONE Stop: 03/26/25 11:01 Last Admin: 03/26/25 11:00 Dose: 500 unit Heparin Sodium (Porcine) (Heparin Sod Inj 5000 Unit/Ml Vial) 3,000 unit 30 unit/kg (3000 unit) IV X1 ONE; Protocol Stop: 03/15/25 05:05 Last Admin: 03/15/25 11:30 Dose: Not Given Heparin Sodium (Porcine) (Heparin Sod Inj 1000 Unit/Ml Vial 10 Ml) 3,000 unit [place]CAT PRN PRN PRN Reason: INDWELLING CATHETER Stop: 03/30/25 01:13 Last Admin: 03/16/25 01:30 Dose: 3,000 unit Heparin Sodium (Porcine) (Heparin Sod Inj 1000 Unit/Ml Vial) 500 unit [place]CAT Q1H [facility] Stop: 03/31/25 03:59 Last Admin: 03/17/25 07:45 Dose: Not Given Heparin Sodium (Porcine) (Heparin Sod Inj 1000 Unit/Ml Vial 10 Ml) 2,000 unit INDWELLCAT X1 ONE Stop: 03/17/25 07:28 Last Admin: 03/17/25 07:38 Dose: 2,000 unit Heparin Sodium (Porcine) (Heparin Sod Inj 1000 Unit/Ml Vial 10 Ml) 3,000 unit IV X1 ONE Stop: 03/17/25 08:01 Last Admin: 03/17/25 08:22 Dose: 3,000 unit Heparin Sodium (Porcine) (Heparin Sod Inj 1000 Unit/Ml Vial 10 Ml) 5,500 unit [place]CAT X1 ONE Stop: 03/17/25 16:42 Last Admin: 03/17/25 19:42 Dose: 5,500 unit Heparin Sodium (Porcine) (Heparin Sod Inj 1000 Unit/Ml Vial 10 Ml) 1,500 unit [place]CAT X1 ONE Stop: 03/17/25 16:42 Last Admin: 03/17/25 17:02 Dose: 1,500 unit Heparin Sodium (Porcine) (Heparin Sod Inj 5000 Unit/Ml Vial) 5,000 unit SC Q8HR [facility] Stop: 03/31/25 21:59 Last Admin: 03/20/25 14:17 Dose: 5,000 unit Heparin Sodium (Porcine) (Heparin Sod Inj 1000 Unit/Ml Vial 10 Ml) 4,000 unit [place]CAT X1 ONE Stop: 03/18/25 08:01 Last Admin: 03/18/25 08:15 Dose: Not Given Heparin Sodium (Porcine) (Heparin Sod Inj 1000 Unit/Ml Vial 10 Ml) 500 unit [place]WELLCAT Q1H [place] Stop: 03/18/25 15:16 Last Admin: 03/18/25 15:24 Dose: 500 unit Heparin Sodium (Porcine) (Heparin Sod Inj 1000 Unit/Ml Vial 10 Ml) 3,000 unit [place]CAT PRN PRN PRN Reason: DIALYSIS Stop: 04/02/25 13:32 Last Admin: 03/25/25 11:37 Dose: 3,000 unit Heparin Sodium (Porcine) (Heparin Sod Inj 5000 Unit/Ml Vial) 5,000 unit SC Q8HR [place] Stop: 04/05/25 21:59 Heparin Sodium (Porcine) (Heparin Sod Inj 1000 Unit/Ml Vial) 3,800 unit INDWELLCAT X1 ONE Stop: 03/26/25 11:01 Last Admin: 03/26/25 11:30 Dose: 3,800 unit Hydrocortisone Sodium Succinate (Hydrocortisone Sod Succ Inj 100 Mg Vial) 100 mg IV X1 ONE Stop: 03/28/25 12:40 Last Admin: 03/28/25 16:42 Dose: Not Given Hydrocortisone Sodium Succinate (Hydrocortisone Sod Succ Inj 100 Mg Vial) 100 mg IV X1 ONE Stop: 03/29/25 14:01 Last Admin: 03/30/25 02:20 Dose: Not Given Hydromorphone HCl (Hydromorphone Inj 2 Mg/Ml Vial) 0.5 mg IVP Q4HR PRN PRN Reason: PAIN Stop: 03/26/25 19:32 Last Admin: 03/22/25 05:24 Dose: 0.5 mg Hydromorphone HCl (Hydromorphone Inj 2 Mg/Ml Vial) 0.5 mg IVP Q4HR PRN PRN Reason: SEVERE PAIN 7-10 Stop: 03/26/25 19:32 Last Admin: 03/23/25 11:26 Dose: 0.5 mg Hydromorphone HCl (Hydromorphone Inj 2 Mg/Ml Vial) 0.5 mg IVP X1 ONE Stop: 03/22/25 17:24 Last Admin: 03/22/25 17:29 Dose: 0.5 mg Hydromorphone HCl (Hydromorphone Inj 2 Mg/Ml Vial) 0.5 mg IVP Q4HR [facility] Stop: 03/28/25 13:59 Last Admin: 03/27/25 06:10 Dose: 0.5 mg Hydromorphone HCl (Hydromorphone Inj 2 Mg/Ml Vial) 0.25 mg IVP Q6H [facility] Stop: 04/01/25 08:44 Last Admin: 03/27/25 09:31 Dose: Not Given Hydromorphone HCl (Hydromorphone Inj 2 Mg/Ml Vial) 0.25 mg IVP Q6H PRN PRN Reason: SEVERE PAIN 7-10 Stop: 04/01/25 08:44 Last Admin: 03/30/25 14:08 Dose: 0.25 mg Hydromorphone HCl (Hydromorphone Inj 2 Mg/Ml Vial) 0.5 mg IVP Q6H PRN PRN Reason: SEVERE PAIN 7-10 Stop: 04/01/25 08:44 Last Admin: 03/31/25 14:20 Dose: 0.5 mg Hydromorphone HCl (Hydromorphone Inj 2 Mg/Ml Vial) 0.25 mg IVP Q6H PRN PRN Reason: SEVERE PAIN 7-10 Stop: 04/01/25 08:44 Diltiazem HCl (Diltiazem In D5w 125 Mg) 125 mg in 125 mls @ 5 mls/hr IV .Q24H [place]; Protocol Stop: 04/13/25 14:27 Last Admin: 03/14/25 14:43 Dose: 5 mg/hr, 5 mls/hr Dextrose (D10w 1000 Ml) 250 mls @ 150 mls/hr IV Q15M PRN PRN Reason: HYPOGLYCEMIA Stop: 04/13/25 14:54 Dextrose (D10w) 500 mls @ 150 mls/hr IV .Q3H20M [place] Stop: 04/13/25 14:59 Last Admin: 03/15/25 07:09 Dose: Not Given Ceftriaxone Sodium 2 gm/ (Sodium Chloride) 50 mls @ 100 mls/hr IV X1 ONE Stop: 03/14/25 16:37 Last Infusion: 03/14/25 16:49 Dose: Infused Azithromycin 500 mg/ Sodium (Chloride) 250 mls @ 250 mls/hr IV X1 ONE Stop: 03/14/25 17:08 Last Infusion: 03/14/25 18:00 Dose: Infused Lactated Ringer's (Lactated Ringers) 1,000 mls @ 999 mls/hr IV .Q1H1M ONE Stop: 03/14/25 18:54 Last Admin: 03/14/25 18:30 Dose: 999 mls/hr Piperacillin Sod/Tazobactam (Sod 4.5 gm/ Sodium Chloride) 100 mls @ 200 mls/hr IV X1 ONE Stop: 03/14/25 20:29 Last Admin: 03/14/25 22:56 Dose: 200 mls/hr Vancomycin HCl 1,500 mg/ (Dextrose) 500 mls @ 197.998 mls/hr IV X1 ONE Stop: 03/14/25 20:46 Last Admin: 03/14/25 22:52 Dose: Not Given Norepinephrine/Dextrose (Levophed In D5w 8mg/250ml) 8 mg in 250 mls @ 9.355 mls/hr IV .Q24H PRN; Protocol PRN Reason: PER PROTOCOL Stop: 04/13/25 19:42 Last Titration: 03/20/25 02:00 Dose: 0 mcg/kg/min, 0 mls/hr Lactated Ringer's (Lactated Ringers) 500 mls @ 999 mls/hr IV .Q31M ONE Stop: 03/14/25 20:45 Last Admin: 03/14/25 20:00 Dose: 999 mls/hr Vasopressin/Sodium Chloride (Vasostrict/Ns Ivpb) 20 unit in 100 mls @ 9 mls/hr IV .Q11H7M PRN; Protocol PRN Reason: PER PROTOCOL Stop: 04/13/25 20:32 Last Titration: 03/14/25 21:45 Dose: 0 unit/min, 0 mls/hr Propofol (Diprivan Ivpb) 1,000 mg in 100 mls @ 2.994 mls/hr IV .Q24H PRN; Protocol PRN Reason: PER PROTOCOL Stop: 04/13/25 21:06 Last Titration: 03/17/25 17:55 Dose: Infused Fentanyl Citrate (Sublimaze Inj 2,500 Mcg/250 Ml Bag) 2,500 mcg in 250 mls @ 2.5 mls/hr IV .Q24H PRN; Protocol PRN Reason: PER PROTOCOL Stop: 03/19/25 21:07 Last Titration: 03/17/25 19:00 Dose: 75 mcg/hr, 7.5 mls/hr Heparin Sodium/Dextrose (Heparin In D5w Ivpb) 25,000 unit in 250 mls @ 10 mls/hr IV .Q24H [place]; Protocol Stop: 03/29/25 05:14 Last Admin: 03/15/25 11:30 Dose: Not Given Piperacillin Sod/Tazobactam (Sod 4.5 gm/ Sodium Chloride) 100 mls @ 25 mls/hr IV Q12HR [place] Stop: 03/22/25 08:59 Piperacillin Sod/Tazobactam (Sod 4.5 gm/ Sodium Chloride) 100 mls @ 200 mls/hr IV X1 ONE Stop: 03/15/25 07:44 Last Admin: 03/15/25 07:26 Dose: 200 mls/hr Piperacillin Sod/Tazobactam (Sod 4.5 gm/ Sodium Chloride) 100 mls @ 25 mls/hr IV Q12HR [facility] Stop: 03/22/25 08:59 Vancomycin HCl/Dextrose (Vancomycin/D5w 1,250 Mg Ivpb) 250 mls @ 120 mls/hr IV X1 ONE Stop: 03/15/25 14:04 Last Admin: 03/15/25 15:42 Dose: 120 mls/hr Calcium Gluconate/Sodium Chloride (Calcium Gluc/Ns 1000mg Ivpb) 1,000 mg in 50 mls @ 50 mls/hr IV X1 ONE Stop: 03/15/25 08:22 Last Admin: 03/15/25 07:38 Dose: 50 mls/hr Heparin Sodium/Dextrose (Heparin In D5w Ivpb) 25,000 unit in 250 mls @ 10 mls/hr IV .Q24H [facility]; Protocol Stop: 03/29/25 11:29 Last Admin: 03/17/25 17:04 Dose: Not Given Piperacillin Sod/Tazobactam (Sod 2.25 gm/ Sodium Chloride) 100 mls @ 25 mls/hr IV Q6HR [facility] Stop: 03/23/25 00:00 Last Admin: 03/16/25 02:32 Dose: Not Given Calcium Gluconate/Sodium Chloride (Calcium Gluc/Ns 1000mg Ivpb) 1,000 mg in 50 mls @ 50 mls/hr IV X1 ONE Stop: 03/15/25 21:29 Last Admin: 03/15/25 21:30 Dose: 50 mls/hr Piperacillin/Tazobactam/Dextrose (Zosyn) 2.25 gm in 50 mls @ 100 mls/hr IV Q6H [facility] Stop: 03/23/25 00:29 Last Admin: 03/17/25 14:06 Dose: 100 mls/hr Calcium Gluconate/Sodium Chloride (Calcium Gluc/Ns 1000mg Ivpb) 1,000 mg in 50 mls @ 50 mls/hr IV X1 ONE Stop: 03/16/25 03:05 Last Admin: 03/16/25 03:04 Dose: 50 mls/hr Amiodarone HCl/Dextrose (Nexterone Ivpb) 150 mg in 100 mls @ 600 mls/hr IV .Q10M ONE Stop: 03/16/25 04:35 Last Admin: 03/16/25 04:30 Dose: 600 mls/hr Amiodarone HCl/Dextrose (Nexterone Ivpb) 360 mg in 200 mls @ 33.333 mls/hr IV .Q6H ONE Stop: 03/16/25 10:25 Last Admin: 03/16/25 04:44 Dose: 33.333 mls/hr Amiodarone HCl/Dextrose (Nexterone Ivpb) 360 mg in 200 mls @ 16.667 mls/hr IV .Q12H [facility] Stop: 03/17/25 10:25 Last Admin: 03/17/25 00:29 Dose: 16.667 mls/hr Calcium Gluconate/Sodium Chloride (Calcium Gluc/Ns 1000mg Ivpb) 1,000 mg in 50 mls @ 50 mls/hr IV X1 ONE Stop: 03/16/25 09:14 Last Admin: 03/16/25 08:38 Dose: 50 mls/hr Amiodarone HCl/Dextrose (Nexterone Ivpb) 360 mg in 200 mls @ 16.667 mls/hr IV .Q12H [facility] Stop: 03/18/25 11:41 Last Admin: 03/18/25 02:02 Dose: 16.667 mls/hr Heparin Sodium/Dextrose (Heparin In D5w Ivpb) 25,000 unit in 250 mls @ 17.956 mls/hr IV .[id number] [facility]; Protocol Stop: 03/31/25 14:29 Last Admin: 03/17/25 19:41 Dose: Not Given Levofloxacin/Dextrose (Levaquin Ivpb) 750 mg in 150 mls @ 100 mls/hr IV X1 ONE Stop: 03/17/25 17:45 Last Admin: 03/17/25 17:55 Dose: 100 mls/hr Levofloxacin/Dextrose (Levaquin Ivpb) 500 mg in 100 mls @ 100 mls/hr IV Q48H [facility] Stop: 03/26/25 16:29 Last Admin: 03/19/25 17:02 Dose: 100 mls/hr Fentanyl Citrate (Sublimaze Inj 2,500 Mcg/250 Ml Bag) 2,500 mcg in 250 mls @ 2.5 mls/hr IV .Q24H PRN; Protocol PRN Reason: PER PROTOCOL Stop: 03/19/25 21:07 Last Titration: 03/18/25 00:00 Dose: 125 mcg/hr, 12.5 mls/hr Propofol (Diprivan Ivpb) 1,000 mg in 100 mls @ 2.994 mls/hr IV .Q24H PRN; Protocol PRN Reason: PER PROTOCOL Stop: 04/13/25 21:06 Potassium Chloride (Kcl Ivpb) 20 meq in 100 mls @ 50 mls/hr IV Q2H [place] Stop: 03/18/25 00:59 Last Admin: 03/17/25 23:50 Dose: 50 mls/hr Fentanyl Citrate (Sublimaze Inj 2,500 Mcg/250 Ml Bag) 2,500 mcg in 250 mls @ 2.5 mls/hr IV .Q24H PRN; Protocol PRN Reason: PER PROTOCOL Stop: 03/19/25 21:07 Last Titration: 03/18/25 11:34 Dose: 0 mcg/hr, 0 mls/hr Propofol (Diprivan Ivpb) 1,000 mg in 100 mls @ 3.453 mls/hr IV .Q24H PRN; Protocol PRN Reason: PER PROTOCOL Stop: 04/13/25 21:06 Last Titration: 03/18/25 11:34 Dose: 0 mcg/kg/min, 0 mls/hr Magnesium Sulfate (Magnesium Sulfate Ivpb) 2 gm in 50 mls @ 25 mls/hr IV X1 ONE Stop: 03/18/25 09:06 Last Admin: 03/18/25 07:35 Dose: 25 mls/hr Dexmedetomidine/Sodium Chloride (Precedex Ivpb) 200 mcg in 50 mls @ 5.625 mls/hr IV .Q8H54M PRN; Protocol PRN Reason: Per PROTOCOL Stop: 04/17/25 11:42 Last Titration: 03/19/25 13:00 Dose: Infused Amiodarone HCl/Dextrose (Nexterone Ivpb) 360 mg in 200 mls @ 16.667 mls/hr IV .Q12H [place] Stop: 04/21/25 15:21 Last Admin: 03/18/25 15:36 Dose: 16.667 mls/hr Amiodarone HCl/Dextrose (Nexterone Ivpb) 360 mg in 200 mls @ 16.667 mls/hr IV .Q12H [place] Stop: 03/19/25 16:00 Last Admin: 03/19/25 03:40 Dose: 16.667 mls/hr Albumin Human (Albuminar-25 Ivpb) 25 gm in 100 mls @ 100 mls/min IV PRN PRN PRN Reason: DIALYSIS Last Admin: 03/23/25 14:52 Dose: 100 mls/min Dexmedetomidine/Sodium Chloride (Precedex Ivpb) 400 mcg in 100 mls @ 5.625 mls/hr IV .[id number] PRN; Protocol PRN Reason: Per PROTOCOL Stop: 04/18/25 13:38 Last Titration: 03/20/25 04:00 Dose: 0 mcg/kg/hr, 0 mls/hr Vancomycin HCl/Dextrose (Vancomycin/D5w 1,250 Mg Ivpb) 250 mls @ 120 mls/hr IV X1 ONE Stop: 03/22/25 17:34 Last Infusion: 03/22/25 19:14 Dose: Infused Vancomycin/Sodium Chloride (Vancomycin/Ns 500 Mg Ivpb) 100 mls @ 120 mls/hr IV X1 ONE Stop: 03/23/25 17:49 Last Admin: 03/23/25 18:31 Dose: 120 mls/hr Vancomycin/Sodium Chloride (Vancomycin/Ns 500 Mg Ivpb) 100 mls @ 120 mls/hr IV X1 ONE Stop: 03/24/25 10:49 Last Admin: 03/24/25 10:06 Dose: 120 mls/hr Albumin Human (Albuminar-25 Ivpb) 25 gm in 100 mls @ 100 mls/min IV PRN PRN PRN Reason: DIALYSIS Last Infusion: 03/31/25 04:58 Dose: Infused Vancomycin/Sodium Chloride (Vancomycin/Ns 500 Mg Ivpb) 100 mls @ 120 mls/hr IV X1 ONE Stop: 03/26/25 10:49 Last Infusion: 03/26/25 19:17 Dose: Infused Vancomycin/Sodium Chloride (Vancomycin/Ns 500 Mg Ivpb) 100 mls @ 120 mls/hr IV X1 ONE Stop: 03/28/25 10:49 Last Infusion: 03/28/25 19:30 Dose: Infused Vancomycin/Sodium Chloride (Vancomycin/Ns 500 Mg Ivpb) 100 mls @ 120 mls/hr IV X1 ONE Stop: 03/30/25 13:49 Last Infusion: 03/31/25 04:58 Dose: Infused Amiodarone HCl/Dextrose (Nexterone Ivpb) 150 mg in 100 mls @ 582.524 mls/hr IV X1 ONE Stop: 04/01/25 03:25 Last Admin: 04/01/25 16:26 Dose: Not Given Amiodarone HCl/Dextrose (Nexterone Ivpb) 150 mg in 100 mls @ 600 mls/hr IV .Q10M ONE Stop: 04/01/25 03:25 Last Infusion: 04/01/25 03:42 Dose: Infused Amiodarone HCl/Dextrose (Nexterone Ivpb) 360 mg in 200 mls @ 33.333 mls/hr IV .Q6H ONE Stop: 04/01/25 09:15 Last Admin: 04/01/25 03:33 Dose: 33.333 mls/hr Vancomycin/Sodium Chloride (Vancomycin/Ns 500 Mg Ivpb) 100 mls @ 120 mls/hr IV X1 ONE Stop: 04/01/25 13:49 Last Admin: 04/01/25 16:26 Dose: Not Given Lactated Ringer's (Lactated Ringers) 1,000 mls @ 999 mls/hr IV .Q1H1M ONE Stop: 04/01/25 09:46 Last Admin: 04/01/25 09:36 Dose: Not Given Desmopressin Acetate 34.5 mcg/ (Sodium Chloride) 108.625 mls @ 217.25 mls/hr IV X1 ONE Stop: 04/01/25 12:14 Desmopressin Acetate 28 mcg/ (Sodium Chloride) 107 mls @ 214 mls/hr IV X1 ONE Stop: 04/01/25 12:14 Last Admin: 04/01/25 11:45 Dose: 214 mls/hr Insulin Human Lispro (Insulin Lispro (Admelog) 1 Unit/0.01 Ml Unit) 0 unit SC Q6HR [place]; Protocol Stop: 04/13/25 20:44 Last Admin: 03/22/25 06:47 Dose: Not Given Insulin Human Regular (Insulin Hum Regular 1 Unit/0.01 Ml (Per Unit)) 10 unit IV X1 ONE Stop: 03/14/25 21:02 Last Admin: 03/14/25 22:20 Dose: Not Given Insulin Human Regular (Insulin Hum Regular 1 Unit/0.01 Ml (Per Unit)) 10 unit 0.1 unit/kg (10 unit) IV X1 ONE Stop: 03/15/25 04:13 Last Admin: 03/15/25 04:34 Dose: 10 unit Insulin Human Regular (Insulin Hum Regular 1 Unit/0.01 Ml (Per Unit)) 5 unit IV X1 ONE Stop: 04/01/25 04:33 Last Admin: 04/01/25 05:20 Dose: 5 unit Lactulose (Lactulose Syrup 20 Gm/30 Ml Udc) 20 gm PO TID [facility]; Protocol Stop: 04/17/25 14:44 Last Admin: 03/19/25 05:59 Dose: 20 gm Levalbuterol HCl (Levalbuterol Rt 0.31 Mg/3 Ml Nebu) 0.31 mg INH Q6HRRT [place] Stop: 04/19/25 12:14 Last Admin: 03/28/25 06:29 Dose: 0.31 mg Lidocaine HCl (Lidocaine Inj Pf 1% 30 Ml Vial) 30 ml INFL X1 ONE Stop: 03/17/25 15:17 Last Admin: 03/17/25 15:26 Dose: 2 ml Lidocaine HCl (Lidocaine Inj Pf 1% 30 Ml Vial) 12 ml INFL X1 ONE Stop: 03/26/25 11:01 Last Admin: 03/26/25 11:10 Dose: 12 ml Lorazepam (Lorazepam 2 Mg/Ml Vial) 2 mg IV X1 ONE Stop: 03/15/25 08:26 Last Admin: 03/15/25 08:29 Dose: 2 mg Lorazepam (Lorazepam 2 Mg/Ml Vial) 1 mg IVP X1 ONE Stop: 04/01/25 07:43 Last Admin: 04/01/25 07:47 Dose: 1 mg Lorazepam (Lorazepam 2 Mg/Ml Vial) 1 mg IVP Q2HR PRN PRN Reason: seizure Stop: 04/06/25 07:59 Lorazepam (Lorazepam 2 Mg/Ml Vial) 1 mg IVP X1 ONE Stop: 04/01/25 07:49 Last Admin: 04/01/25 09:29 Dose: Not Given Melatonin (Melatonin 3 Mg Tablet) 3 mg PO HS ONE Stop: 03/23/25 20:57 Last Admin: 03/23/25 22:14 Dose: 3 mg Methylprednisolone Sodium Succinate (Methylprednisolone Sod Succ 40 Mg Vial) 60 mg IVP X1 ONE Stop: 03/15/25 12:49 Last Admin: 03/15/25 12:48 Dose: 60 mg Metoprolol Succinate (Metoprolol Succinate Xl 25 Mg Tabcr) 25 mg PO QDAY [facility] Stop: 04/20/25 13:14 Last Admin: 03/21/25 13:13 Dose: 25 mg Metoprolol Succinate (Metoprolol Succinate Xl 25 Mg Tabcr) 25 mg PO BID [facility] Stop: 04/21/25 08:59 Last Admin: 03/29/25 09:07 Dose: 25 mg Metoprolol Tartrate (Metoprolol Tartrate Inj 1 Mg/Ml Amp 5 Ml) 5 mg IVP X1 ONE Stop: 03/15/25 16:09 Last Admin: 03/15/25 16:08 Dose: 5 mg Midazolam HCl (Midazolam Inj 1 Mg/Ml Vial 2 Ml) 2 mg IV X1 ONE Stop: 03/14/25 14:17 Last Admin: 03/14/25 14:24 Dose: 2 mg Midodrine (Midodrine 5 Mg Tablet) 10 mg GT TID [facility] Stop: 04/18/25 21:59 Morphine Sulfate (Morphine Sulf Inj 10 Mg/Ml Vial) 4 mg IVP X1 ONE Stop: 03/14/25 14:17 Last Admin: 03/14/25 14:24 Dose: 4 mg Naloxegol (Naloxegol Oxalate 25 Mg Tablet (Non-Formulary)) 25 mg PO X1 ONE Stop: 03/27/25 08:43 Last Admin: 03/27/25 10:54 Dose: 25 mg Nitroglycerin (Nitroglycerin Oint 2% 1 Inch Packet) 1 inch TOP X1 ONE Stop: 03/15/25 10:05 Last Admin: 03/15/25 10:12 Dose: 1 inch Nitroglycerin (Nitroglycerin Oint 2% 1 Inch Packet) 1 inch TOP X1 ONE Stop: 03/20/25 11:38 Last Admin: 03/20/25 14:16 Dose: 1 inch Nitroglycerin (Nitroglycerin 0.4 Mg/Hr Patch.Td24) 0.4 mg TOP X1 ONE Stop: 03/20/25 23:03 Last Admin: 03/21/25 01:14 Dose: Not Given Nitroglycerin (Nitroglycerin Oint 2% 1 Inch Packet) 1 inch TOP X1 ONE Stop: 03/20/25 23:30 Last Admin: 03/20/25 23:53 Dose: 1 inch Ondansetron HCl (Ondansetron Inj 2 Mg/Ml Inj 2 Ml) 4 mg IV X1 ONE; Protocol Stop: 03/14/25 14:17 Last Admin: 03/14/25 14:26 Dose: 4 mg Oxycodone/Acetaminophen (Oxycodone/Apap 5/325 Tablet) 1 tab PO Q6HR PRN PRN Reason: BREAKTHROUGH PAIN 4-10 Stop: 03/29/25 11:59 Last Admin: 03/27/25 07:26 Dose: 1 tab Pantoprazole Sodium (Pantoprazole Inj 40 Mg Vial) 40 mg IVP QDAY [facility] Stop: 04/13/25 17:44 Last Admin: 03/14/25 18:51 Dose: Not Given Pantoprazole Sodium (Pantoprazole Inj 40 Mg Vial) 40 mg IVP BID [place] Stop: 04/13/25 20:59 Last Admin: 03/30/25 15:36 Dose: Not Given Pharmacy Consult (Vancomycin Pharmacy To Dose 1 Each Each) 1 each IV QDAY [facility] Stop: 04/13/25 17:44 Last Admin: 03/16/25 10:43 Dose: Not Given Pharmacy Consult (Vancomycin Pharmacy To Dose 1 Each Each) 1 each IV QDAY PRN PRN Reason: CONSULT Stop: 04/21/25 15:14 Pharmacy Consult (Vancomycin Pharmacy To Dose 1 Each Each) 1 each IV QDAY [facility] Stop: 04/23/25 16:59 Last Admin: 03/26/25 10:50 Dose: Not Given Pharmacy Consult (Vancomycin Pharmacy To Dose 1 Each Each) 1 each IV QDAY PRN PRN Reason: CONSULT Stop: 04/23/25 16:59 Phentolamine Mesylate (Phentolamine Mesylate Inj 5 Mg/Ml Vial) 5 mg SC X1 ONE Stop: 03/14/25 20:39 Last Admin: 03/14/25 21:02 Dose: 5 mg Potassium Chloride (Potassium Chloride 10% 20 Meq/15 Ml Udc) 40 meq GT X1 ONE Stop: 03/17/25 07:29 Last Admin: 03/17/25 08:26 Dose: 40 meq Potassium Chloride (Potassium Chloride 10% 20 Meq/15 Ml Udc) 40 meq GT X1 ONE Stop: 03/18/25 07:08 Last Admin: 03/18/25 07:35 Dose: 40 meq Potassium Chloride (Potassium Chloride 10% 20 Meq/15 Ml Udc) 40 meq GT X1 ONE Stop: 03/19/25 02:25 Last Admin: 03/19/25 03:40 Dose: 40 meq Potassium Chloride (Potassium Chloride 10% 20 Meq/15 Ml Udc) 20 meq GT X1 ONE Stop: 03/21/25 19:19 Last Admin: 03/21/25 19:31 Dose: 20 meq Pregabalin (Pregabalin 25 Mg Capsule) 25 mg PO BID [facility] Stop: 04/27/25 09:59 Last Admin: 03/29/25 09:07 Dose: 25 mg Pregabalin (Pregabalin 25 Mg Capsule) 50 mg PO BID [place] Stop: 04/28/25 20:59 Last Admin: 03/31/25 09:27 Dose: 50 mg Pregabalin (Pregabalin 25 Mg Capsule) 50 mg PO TID [place] Stop: 04/30/25 13:59 Last Admin: 04/01/25 05:23 Dose: Not Given Rocuronium [place] (Rocuronium Inj 10 Mg/Ml Vial 10 Ml) 60 mg IVP X1 ONE Stop: 03/14/25 15:21 Last Admin: 03/14/25 15:32 Dose: 60 mg Rocuronium [place] (Rocuronium Inj 10 Mg/Ml Vial 10 Ml) 100 mg IVP X1 ONE Stop: 03/16/25 12:15 Last Admin: 03/16/25 12:14 Dose: 100 mg Sodium Bicarbonate (Sodium Bicarb Inj 8.4% Syr 50 Ml Syringe) 50 ml IV X1 ONE Stop: 03/14/25 14:21 Last Admin: 03/14/25 14:34 Dose: 50 ml Sodium Chloride (Sodium Chloride Rt 10% 15 Ml Nebu) 15 ml INH Q6H [place] Stop: 04/16/25 11:29 Last Admin: 03/17/25 17:05 Dose: Not Given Sodium Chloride (Sodium Cl Rt [place] 3% 4 Ml Nebu (Non-Formulary)) 15 ml INH Q6HRRT [facility] Stop: 04/16/25 12:59 Last Admin: 03/17/25 17:05 Dose: Not Given Sodium Chloride (Sodium Cl Rt [place] 3% 4 Ml Nebu (Non-Formulary)) 3 ml INH Q6HRRT [place] Stop: 04/16/25 13:44 Last Admin: 03/17/25 17:05 Dose: Not Given Sodium Chloride (Sodium Cl Rt [place] 3% 4 Ml Nebu (Non-Formulary)) 3 ml INH Q6HRRT [place] Stop: 04/16/25 15:59 Last Admin: 03/17/25 16:07 Dose: 3 ml Sodium Chloride (Sodium Cl Rt [place]jorie 3% 4 Ml Nebu (Non-Formulary)) 3 ml INH Q6HRRT [place] Stop: 04/16/25 18:59 Last Admin: 03/31/25 00:37 Dose: 3 ml Sodium Polystyrene Sulfonate (Sod Polystyrene Sulfon Susp 15 Gm/60 Ml Btl) 30 gm PO X1 ONE Stop: 04/01/25 04:33 Last Admin: 04/01/25 05:23 Dose: Not Given Assessment & Plan Plan Patient is a 49 year old male with a past medical history of diabetes mellitus type 2, Hypertension, ESRD (), HFpEF 50 to 55% w/ mild hypokinesis of anteroseptal wall (03/23/2025), Right BKA who was initially admitted on 03/14/2025 for shock requiring pressor on unknown etiology, suspected septic given lower limb ischemia who was upgraded to ICU on 04/01/2025 secondary to shock requiring phenylephrine. SCOW HAND: #Acute cephalopathy, likely in the setting of shock. Seizure like activity less likely. -continue to monitor patient CVS: #Shock Shock likely secondary to septic shock given ischemic limb and negative troponins and no ST elevation noted on EKG. Blood culture on 03/21/2025 showing staphylococcus haemolyticus likely contamination as this is a comensual bacteria and only 1/2 bottles. Likely source is ischemic limb. Repeat blood culture negative on 03/22/2025 -Blood Cultures -Continue Phenylephrine -Vasopressin PRN #Bradycardia Bradycardia upon ICU arrival, likely in the setting of Amiodarone drip started overnight. Currently holding Amiodarone & Diltiazem after rapid response. #Sinus Tachycardia s/p cardioversion #SVT, resolved. #Hx of A-fib During hospital course, patient developed SVT and MAT with underlying history of Atrail Fibrilation requiring patient to be cardioverted. Most recently on 04/01/2025 at 3:05 Am patient once again developed Atrial fibrillation w/ RVR, Amiodarone drip started. 04/01/2025 at approximetly 8:00 AM patient required to be cardioverted given hyodynamic instability and possible SVT vs atrial flutter. [id number] score of 3 points indicating 3.2% risk of stroke per year HAS-BLED score of 5 points -Hold amiodarone and Diltiazem as patient given shock and bradycardia -May restart Amiodarone oral, once patient begins to eat again. #Troponinemia Elevated troponin likely secondary to NSTEMI demand ischemia secondary to shock. Continue to trend troponin. EKG showed no ST elevation. Cardiology consulted, Dr. Villalobos, appreciate recommendaitons. #HFmrEF (EF 50-55% 02/2025) Previous echo on file from 03/16/2025 noted to have EF of 45-55% with repeat Echo on 03/23/2025 noted EF of 50 to 55%. Daily weights Strict JENN's Respiratory: #Acute hypoxic respiratory failure #Bipap #Respiratory acidosis, secondary to hypercapnia #Stenotrophomonas maltophilia pneumonia, resovled Intubated on 03/14/2025 and extubated on 03/20/2025. Patient required Bipap upon ICU upgrade,noted to have hypercapnia, likley secondary to shock. Plan -repeat ABG -Bipap Renal: #ESRD (HD on ) #HAGMA, resolved #Lactic acidosis, resolved Continue hemodialysis as scheduled. Previous session on 04/01/2025 and 600 cc removed. Avoid nephrotoxic agents Renally dose medications Consults nephrology, appreciate recommendations #Hypocalcemia, resolved # Hypokalemia, resolved GI: #Hematemesis, resolved. Concern for hematemsis, initially admisison. No acitve signs of bleeding. 1 PRBC recieved during course. -continue to monitor Hgb #Transaminitis, resolved. #Hepatomegaly #Mild Ascites Patient noted to have AST/ALT on admisison, likely in the setting of shock on admisison. Abodmen U/S noted to have significant hepatomegaly with ascites noted. Hepatitis panel noted to be -Continue to monitor AST/ALT MSK: #S/P Left BKA (04/01/2025) #S/p right BKA #Acute on Chronic Limb Ischemia #Peripheral Artery Disease CTA noted multiple arterial vessels including left radial, gluteal, tibeal arteries and 90% stenois of femoral artery. S/P Left BKA near left ankle on 04/01/2025. This is likely source of infection as leg appeared necrotic in nature. Daptomycin 04/01/2025- Endo: #DM2 #Hypoglycemia, resolved ISS Hypoglycemia protocol ordered Heme: #Leukocytosis, up-trending likely in the setting of lower limb ischemia and cutaneous necrosis. s/p left BKA #Macrocytic anemia Likely in the setting of hepatomegaly, concern for cirrhosis. 1 unit on admission of PRBCs. plan -consider Folate and B12 levels -continue to monitor #Thrombocytopenia likely reactive in the setting of acute illness -continue to monitor ID: #Stenotrophomonas maltophilia pneumonia, resolved #Bacteremia secondary to Staphylococcus, ruled out #Acute on Chronic limb ischemia Acute on chronic limb ischemia with necrotic tissue likely source of infection, s/p BKA. No rhonchi noted on physical exam or crackles. -blood culture -consider repeat chest x-ray Health Maintenance: Disp: Pt is currently admitted to floors for further management of shock, requiring pressor, awaiting improved MAP. FEN: NPO DVT: on subQ heparin GI: Protonix Qday Code: DNR/DNI Lines: Left Femoral Central Venous & Right Femoral Arterial - The patient's plan was discussed with attending Dr. Keanu Solorzano MD PGY1 Internal Medicine Attending Provider Attestation/Addendum Patient seen and examined with above resident, Saira Solorzano MD. I agree with the findings, assessment, and plan of care as documented except for any differences below. Patient with rapid response this morning secondary to SVT. Patient was given Ativan at the time of electrocardioversion. Hemodynamically continues to remain with borderline blood pressure eventually developing what seems to be septic shock. Likely trigger is due to left lower extremity necrosis and infection. He was undergoing hemodialysis at the time of development of SVT. Patient did receive amiodarone. This has been discontinued as the patient has otherwise developed sinus bradycardia. He is requiring phenylephrine. Patient with normal LVEF and thus we have elected to avoid any sort of beta agonism as this would likely precipitate further arrhythmias. Patient completed course of hemodialysis along with albumin and blood transfusions throughout the course of treatment. Patient with significant hyperkalemia which has improved post dialysis. His mentation continues to be limited given his request previously to remain DNI, a nasal trumpet was placed with use of noninvasive positive pressure ventilation. AVAPS successfully continues to be able to control ventilation and support of his status though with his ability to protect his airway remains marginal. Patient will require close monitoring and care in the ICU for this along along with ongoing shock. Discussion with general surgery as well as anesthesiology who were agreeable and did take the patient for left below-knee amputation with success using just regional block of both the femoral and popliteal nerves. Patient with significant necrosis of the right upper extremity likely secondary to vasospasm from prior use of vasopressors. Will try to minimize dosing which was easily weaned throughout the day after dialysis was completed and transfusion done. Will continue to await improvement in mentation. Patient's has been at bedside and been updated by both surgical and medicine teams. Patient requiring critical care services for septic shock secondary to left lower extremity necrosis and possible infection, hyperkalemia, SVT, and acute metabolic encephalopathy. Patient remains at significant risk for further morbidity and mortality warranting close monitoring and care only available in the intensive care unit.
--- NOTE | 2025-04-01 11:39 | PC.NURSE ---
Addendum entered by Laura Pierce RN 04/01/25 11:44: pt left at 1144 Original Note: Surgery team in to take PT. Dr. Spann and Dr. Hughes at bedside with
[2025-04-01] MEDS: SODIUM CHLORIDE 0.9% IV ×2 (11:45→16:41)
[2025-04-01] MEDS: DESMOPRESSIN ACETATE IV (11:45)
[2025-04-01 11:47] LABS: Alanine Aminotransferase 45 U/L (10-49); Albumin, Serum 3.8 gm/dL (3.5-5.0); Albumin/Globulin Ratio 1.1 (1.2-2.2); Alkaline Phosphatase 114 U/L (46-116); Anion Gap 7 (7-16); Aspartate Amino Transferase 16 U/L (0-34); BUN/Creatinine Ratio 9 Ratio (12-20); Bilirubin,Total 0.7 mg/dL (0.3-1.2); Blood Urea Nitrogen 39 mg/dL (9-23); Calcium 8.6 mg/dL (8.3-10.6); Calcium (Corrected) 8.8 mg/dL (8.5-10.1); Carbon Dioxide 27.3 mMol/L (20.0-31.0); Chloride 97 mMol/L (98-107); Creatine Kinase < 15 U/L (34-171); Creatinine (Component) 4.2 mg/dL (0.6-1.3); Estimated Creatinine Clearance 27.3 mL/min (>60); Globulin 3.5 gm/dL (2.3-3.5); Glucose 136 mg/dL (74-106); Osmolality,Calculated 274 (275-295); Potassium 4.6 mMol/L (3.4-5.1); Sodium 131 mMol/L (136-145); Total Protein 7.3 gm/dL (5.7-8.2); eGFR 16 See Note
--- NOTE | 2025-04-01 12:56 | PC.NURSE ---
PT returned from surgery at 1242 Left BKA above ankle, nerve block used, femoral and popliteal, EBL 20 meds: 2 mg versed, desmopressin, 200 mls NS, no abx given during sx
--- NOTE | 2025-04-01 12:59 | ESOP_ITS ---
Date of Procedure 04/01/25 Pre Op Diagnosis Gangrene left foot Post Op Diagnosis Gangrene left foot Procedure Guillotine amputation left distal leg Findings Left foot gangrene. Procedure Description Patient brought into the operating room in supine position. After administration of monitored anesthesia care and left femoral nerve block pat ient's left lower extremity prepped and draped in standard surgical manner. A Gigli saw was used and guillotine amputation was performed just above the left ankle. His arteries appear to be patent, they were all ligated with 0 silk ties. The smaller venous vessels were ligated with 2-0 silk ties. Hemostasis was adequate and satisfactory. Wound washed and irrigated copiously and thoroughly with Betadine mixed with peroxide and saline and further washed with warm saline. The stump was packed with wet-to-dry dressings. He tolerated the procedure well. He remained hemodynamically stable and transferred to intensive care unit. Anesthesia MAC and regional (Left femoral nerve block) Pathology / specimen Other (Left foot and lower leg) Estimated Blood Loss 50 Condition Stable Disposition PACU Surgeon Keanu Spann MD Surgical Staff Operation Date: 04/01/25 14:45 <No data on this case meets the specified criteria>
--- NOTE | 2025-04-01 13:12 | ESPR_ITS ---
Documentation for date of: 04/01/25 ANESTHESIA NOTE: Patient had regional anesthesia with L femoral and popliteal nerve blocks and mild sedation for L BKA just now. Pre-op, I saw him in ICU 255 with his at bedside and earlier I spoke with his and daughter in the waiting room. He was drowsy, had received sedation earlier during [employer], he was on BiPap due to hypoxemia earlier despite high flow face mask O2. He has had prolonged hospitalization, has h/o NV per the , ESRD, has had R BKA in the past. Reportedly he coronary cath was normal. His L foot and distal leg had grossly necrotic appearing areas and his R hand also had some necrotic areas. In last 24 hrs, he has had multiple [employer] called while he was in tele, had SBP 70-80s, HR 140s, and was taken care by [employer] and transferred to ICU and he was on Phenylephrine infusion on my visit and unresponsive to voice and touch. He received HD this AM, and was given 1 unit of RBC and 2nd unit started. I had detailed discussion with the and the daughter pre-op about his critical condition and doing the surgery as life saving measure and they both agreed to proceed and gave me consent for anesthesia. The surgeon also spoke with the at bedside before he was taken to OR. He was taken to OR with the team, with BiPap with RT, and given minimal sedation and the nerve blocks. He tolerated it well. His 2nd unit of RBC was continued intra-op along with his Phenyleprhine. He was given Desmopressin infusion also sent by the pharmacy per the surgeon. He received about 200 cc of NS intra-op. At the end, he was transferred back to ICU in the same stable but critical condition. Marcello Hughes MD Anesthesia Progress Note Progress Note Most recent Vital Signs: Last Vital Signs Temp 96.8 F 04/01/25 12:45 Pulse 56 L 04/01/25 12:45 Resp 13 04/01/25 12:45 BP 115/64 04/01/25 12:45 Pulse Ox 96 04/01/25 12:45 O2 Del Method BiPAP 04/01/25 12:45 O2 Flow Rate 50 04/01/25 11:31 FiO2 100 04/01/25 12:45
[2025-04-01 13:55] LABS: Hemoglobin 8.3 g/dL (13.5-16.0)
--- NOTE | 2025-04-01 14:00 | PC.NURSE ---
MD aware unable to take BP on either arm or either leg, waiting for art line to be placed, all other vitals are stable
[2025-04-01] MEDS: PHENYLEPHRINE HCL 40 MG in SODIUM CHLORIDE 0.9% 96 ML 25.923 MG IV (14:05)
--- NOTE | 2025-04-01 14:39 | ESPR_ITS ---
<Statement entered by Yanci Villalobos MD - 04/05/25 08:40> I personally reviewed and examined the patient who has multiple medical problems including atrial fibrillation had A-fib RVR and hypotension episode requiring vasopressors and amiodarone continued patient has sepsis secondary to gangrene of the foot appropriately went on to undergo surgery successfully now on vasopressors to maintain blood pressure continues to be in critical condition but stable A-fib rate controlled reasonably well we will continue the present strategy evaluate the patient with resident physician team and agree with the treatment plan recommendation as documented by Dr. Wilkinson PGY 2 will continue to monitor the patient close prognosis still guarded because of underlying sepsis but cardiac guillen patient has no significant obstructive CAD though he had NSTEMI on admission due to sepsis. Documentation for date of: 04/01/25 Subjective Subjective Interval history: Patient was seen and examined in ICU. Overnight patient had rapid response call due to tachycardia, hypotension and desaturation, potassium was 6.4, he was given insulin with dextrose along with albuterol. He was started on amiodarone drip and oxygen via facemask, and was given IVF. His condition has failed to improve and in early mnorning rapid response was called again due to same problems of tachycardia and hypotension, and he was upgraded to ICU and started on phenylephrine drip and BiPAP. He underwent cardioversion and was converted to sinus rhythm and amiodarone drip was discontinued. General surgery decided to take him to the OR for right BKA and surgery went successfully. He is now in ICU on phenylephrine 0.5 mcg/kg/min. Started on daptomycin in addition to vancomycin. Exam Vital Signs Temp Pulse Resp BP Pulse Ox O2 Del Method O2 Flow Rate 96.8 F 57 L 7 L 100/51 L 91 L BiPAP 50 04/01/25 12:45 04/01/25 14:15 04/01/25 14:15 04/01/25 14:05 04/01/25 14:15 04/01/25 14:02 04/01/25 11:31 FiO2 75 04/01/25 14:30 Narrative Exam Gen: Well-developed male. HEENT: NCAT, PERRLA, EOMI, MMM, anicteric conjunctivae. CVS: normal S1 and S2. RRR. No M/R/G. Resp: CTA B/L. No rhonchi, rales, crackles or wheezing. Abd: soft, non-tender, non-distended. BS+ in all 4 quadrants. MSK: S/p right BKA, stump appears necrotic, right thigh has blister. S/p left BKA, clean dressing. Dry gangrene over right 2nd and 3rd digits. Tip of left second digit appears necrotic. Neuro: CN II-XII grossly intact. Alert and oriented x3. Psych: appropriate mood and affect. Objective Labs 04/01/25 11:14 04/01/25 11:14 Labs: Laboratory Results - last 24 hr 03/31/25 03/31/25 04/01/25 05:42 16:06 03:25 WBC 9.7 D RBC 2.33 L Hgb 7.3 L Hct 24.0 L MCV 103 H MCH 31.3 MCHC 30.4 L RDW Std Deviation 61.9 H Plt Count 176 D Neut % (Auto) 84 H Lymph % (Auto) 3 L [place] % (Auto) 10 Eos % (Auto) 1 Baso % (Auto) 0 Neut # (Auto) 8.1 H Lymph # (Auto) 0.3 L [place] # (Auto) 1.0 H Eos # (Auto) 0.1 Baso # (Auto) 0.0 Immature Gran # (Auto) 0.16 H Absolute Nucleated RBC 0.00 Immature Gran % 2 H Nucleated RBC % 0 Smear Path Review Sent to Pathologist VBG pH VBG pCO2 VBG pO2 VBG O2 Sat (Guy) VBG Base Excess Sodium 131 L Potassium 6.4 H* D Chloride 97 L Carbon Dioxide 25.9 Anion Gap 8 BUN 69 H Creatinine 6.4 H* D Estim Creat Clear Calc 17.9 L eGFR 10 L* BUN/Creatinine Ratio 11 L Glucose 160 H D Calculated Osmolality 285 Lactic Acid Calcium 8.0 L Corrected Calcium 8.5 Phosphorus 9.2 H Magnesium 2.1 Total Bilirubin 0.5 AST 18 ALT 44 Alkaline Phosphatase 110 Total Creatine Kinase Troponin I Total Protein 6.7 Albumin 3.4 L Globulin 3.3 Albumin/Globulin Ratio 1.0 L Random Vancomycin 14.1 Blood Type A Positive Antibody Screen NEGATIVE Crossmatch See Detail Blood Bank Wristband ID Yes 04/01/25 04/01/25 04/01/25 04:53 07:55 11:14 WBC 12.8 H RBC 2.69 L Hgb 8.3 L Hct 27.4 L MCV 102 H MCH 30.9 MCHC 30.3 L RDW Std Deviation 65.1 H Plt Count 312 D Neut % (Auto) 89 H Lymph % (Auto) 3 L [place] % (Auto) 6 Eos % (Auto) 0 Baso % (Auto) 0 Neut # (Auto) 11.4 H Lymph # (Auto) 0.3 L [place] # (Auto) 0.8 Eos # (Auto) 0.0 Baso # (Auto) 0.0 Immature Gran # (Auto) 0.27 H Absolute Nucleated RBC 0.00 Immature Gran % 2 H Nucleated RBC % 0 Smear Path Review VBG pH 7.24 L VBG pCO2 57 H VBG pO2 51 VBG O2 Sat (Ugy) 84 L VBG Base Excess -3 Sodium 131 L 131 L Potassium 5.8 H D 4.6 D Chloride 98 97 L Carbon Dioxide 25.9 27.3 Anion Gap 7 7 BUN 66 H 39 H Creatinine 6.1 H* 4.2 H* D Estim Creat Clear Calc 18.8 L 27.3 L eGFR 10 L* 16 L BUN/Creatinine Ratio 11 L 9 L Glucose 135 H 136 H Calculated Osmolality 283 274 L Lactic Acid 0.9 Calcium 8.3 8.6 Corrected Calcium 8.6 8.8 Phosphorus Magnesium Total Bilirubin 0.4 0.7 AST 10 16 ALT 41 45 Alkaline Phosphatase 106 114 Total Creatine Kinase < 15 L D Troponin I 0.131 H* 0.160 H* Total Protein 6.8 7.3 Albumin 3.6 3.8 Globulin 3.2 3.5 Albumin/Globulin Ratio 1.1 L 1.1 L Random Vancomycin Blood Type Antibody Screen Crossmatch Blood Bank Wristband ID ABG Interpretation ABG results: 03/14/25 03/14/25 03/14/25 14:44 16:44 18:53 ABG pH 7.03 L* 7.04 L* 7.10 L* ABG pCO2 43 50 H 46 ABG pO2 86 128 H D 57 L* D ABG HCO3 11 L 13 L 14 L ABG O2 Saturation 91 97 78 L ABG Base Excess -19 L -17 L -15 L VBG pH VBG pCO2 VBG pO2 VBG Base Excess 03/14/25 03/15/25 03/15/25 21:20 05:07 12:28 ABG pH 7.21 L D 7.41 D ABG pCO2 32 D 31 L ABG pO2 116 H D 74 L D ABG HCO3 13 L 20 ABG O2 Saturation 97 95 ABG Base Excess -14 L -4 L VBG pH 7.43 VBG pCO2 34 L VBG pO2 37 VBG Base Excess -1 03/16/25 03/16/25 03/16/25 04:51 11:48 19:30 ABG pH 7.46 H 7.22 L D 7.38 D ABG pCO2 29 L 66 H D 48 D ABG pO2 78 L 79 L 236 H D ABG HCO3 21 27 H 29 H ABG O2 Saturation 96 91 100 H ABG Base Excess -2 -2 3 VBG pH VBG pCO2 VBG pO2 VBG Base Excess 03/17/25 03/18/25 03/19/25 04:53 09:27 04:46 ABG pH 7.38 7.35 ABG pCO2 49 H 48 ABG pO2 78 L D 92 ABG HCO3 29 H 26 ABG O2 Saturation 95 98 ABG Base Excess 3 0 VBG pH 7.34 VBG pCO2 54 D VBG pO2 34 VBG Base Excess 2 03/24/25 04/01/25 22:00 04:53 ABG pH 7.33 L ABG pCO2 48 ABG pO2 233 H ABG HCO3 25 ABG O2 Saturation 101 H ABG Base Excess -1 VBG pH 7.24 L VBG pCO2 57 H VBG pO2 51 VBG Base Excess -3 Quality Measures Quality Measures VTE prophylaxis Assessment & Plan Assessment Current Active Medications: Generic Name Dose Route Start Last Admin Trade Name Lilly PRN Reason Stop Dose Admin Acetaminophen 650 mg 03/20/25 11:35 03/21/25 06:39 Acetaminophen 325 Mg Tablet PO 04/19/25 11:34 650 mg Q6HR PRN Administration pain and Fever >100.4 Protocol Hydrocodone Bitart/Acetaminophen 1 tab 03/28/25 08:32 03/31/25 19:38 Hydrocodone/Apap 7.5/325 Tablet PO 04/02/25 08:31 1 tab Q6HR PRN Administration PAIN SCALE 4-6 (Moderate Dextrose 25 ml 04/01/25 04:32 Dextrose 50%-Water Inj 50 Ml Syringe IV 05/01/25 04:31 Q15MIN PRN BG 50-70 responsive npo pt Dextrose 50 ml 04/01/25 04:32 04/01/25 05:21 Dextrose 50%-Water Inj 50 Ml Syringe IV 05/01/25 04:31 50 ml Q15MIN PRN Administration BG <50 OR BG <70 & pt unresponsive Diltiazem HCl 120 mg 03/30/25 09:00 04/01/25 10:20 Diltiazem Cd 120 Mg Capcr PO 04/29/25 08:59 Not Given QDAY [facility] Glucagon 1 mg 04/01/25 04:32 Glucagon Inj 1 Mg Vial IM Q15MIN PRN BG <70, and no IV access Heparin Sodium (Porcine) 5,000 unit 03/23/25 21:00 04/01/25 10:23 Heparin Sod Inj 5000 Unit/Ml Vial SC 04/06/25 20:59 Not Given Q12HR [facility] Heparin Sodium (Porcine) 3,800 unit 03/30/25 08:26 04/01/25 11:08 Heparin Sod Inj 1000 Unit/Ml Vial 10 Ml [facility]WELLCAT 04/13/25 08:25 3,800 unit PRN PRN Administration DIALYSIS Amiodarone HCl/Dextrose 360 mg in 200 mls @ 16.667 mls/hr 04/01/25 09:00 04/01/25 09:55 Nexterone Ivpb IV 04/02/25 08:59 Not Given .Q12H [facility] Albumin Human 25 gm in 100 mls @ 100 mls/hr 04/01/25 07:37 04/01/25 07:48 Albuminar-25 Ivpb IV 100 mls/hr PRN PRN Administration DIALYSIS Phenylephrine HCl 40 mg/ 100 mls @ 1.728 mls/hr 04/01/25 08:48 04/01/25 14:05 Sodium Chloride IV 05/01/25 08:47 1.5 mcg/kg/min .Q24H PRN 25.923 mls/hr Per Cardiogenic Protocol Administration Protocol 0.1 MCG/KG/MIN Daptomycin 500 mg/ Sodium 60 mls @ 120 mls/hr 04/01/25 15:00 Chloride 10 ml/ Sodium IV 04/08/25 14:59 Chloride QOD@1500 [place] Protocol Vasopressin/Sodium Chloride 20 unit in 100 mls @ 9 mls/hr 04/01/25 14:00 Vasostrict/Ns Ivpb IV 05/01/25 13:59 .Q11H7M PRN PER PROTOCOL Protocol 0.03 UNIT/MIN Insulin Human Lispro 0 unit 03/22/25 11:30 04/01/25 11:11 Insulin Lispro (Admelog) 1 Unit/0.01 Ml Unit SC 04/21/25 11:29 Not Given ACHS [place] Protocol Levalbuterol HCl 0.31 mg 03/28/25 10:24 03/31/25 00:37 Levalbuterol Rt 0.31 Mg/3 Ml Nebu INH 04/19/25 12:14 0.31 mg Q6HRRT PRN Administration Wheezing Lorazepam 1 mg 04/01/25 08:11 Lorazepam 2 Mg/Ml Vial IVP Q5MIN PRN seizure Metoprolol Tartrate 2.5 mg 04/01/25 08:30 Metoprolol Tartrate Inj 1 Mg/Ml Amp 5 Ml IVP Q5MIN PRN TACHYCARDIA HR >120 Midodrine 10 mg 03/19/25 18:19 Midodrine 5 Mg Tablet GT 04/18/25 21:59 TID PRN MAP below 65 Ondansetron HCl 4 mg 03/14/25 17:31 03/30/25 01:39 Ondansetron Inj 2 Mg/Ml Inj 2 Ml IV 04/13/25 17:30 4 mg Q6H PRN Administration NAUSEA OR VOMITING Protocol Pantoprazole Sodium 40 mg 03/31/25 09:00 04/01/25 10:37 Pantoprazole Inj 40 Mg Vial IVP 04/30/25 08:59 40 mg QDAY [place] Administration Polyethylene Glycol 17 gm 03/26/25 18:00 04/01/25 10:21 Polyethylene Glycol 17 Gm Packet PO 04/25/25 17:59 Not Given QDAY [place] Pregabalin 50 mg 04/01/25 09:00 04/01/25 10:22 Pregabalin 25 Mg Capsule PO 05/01/25 08:59 Not Given BID [place] Sennosides 1 tab 03/26/25 18:00 04/01/25 10:22 Senna Tablet PO 04/25/25 17:59 Not Given QDAY [place] Protocol Sodium Chloride 3 ml 03/31/25 06:26 Sodium Cl Rt Marjorie 3% 4 Ml Nebu (Non-Formulary) INH 04/16/25 18:59 Q6HRRT PRN To induce cough Plan 49-year-old male with past medical history of DM2, hypertension, ESRD (HD ), HFpEF (EF 55% on 2021), and right BKA due to osteomyelitis was initially admitted to the ICU on 03/14/2025 for acute hypoxic respiratory failure, acute encephalopathy, and shock. He was subsequently extubated and downgraded to telemetry on 03/20/2025 for continuation of care. #Septic shock. #Left foot gangrene, s/p BKA. Likely due to infection and gangrene in left foot, was amputated today by general surgery. WBC today 12.8. Initially started on phenylephrine and vasopressin but now only on phenylephrine 0.5/mcg/kg/min. He also was given 2 units pRBC transfusion due to borderline anemia and upcoming surgery, last hemoglobin post transfusion 8.3. Plan: - continue on pressor support to maintain MAP > 65. - continue daptomycin and vancomycin IV. - midodrine on hold. #Status post acute non-ST segment elevation myocardial infarction, NSTEMI possible type 2 troponin versus NSTEMI. #SVT episodes. #Afib, rate controlled. #Decompensated HFpEF (EF 45-50%). Patient s/p intubation and pressor support in ICU for shock, distributive secondary to sepsis versus cardiogenic. Patient initially presented to ED in SVT and required shock x1. Troponin initially 1.856 uptrended to 7.899 peak. Patient was treated for pneumonia. Patient was able to wean off pressors, extubated, now downgraded to tele. CT LER showed diffuse stenosis on the arteries of the LLE, occlusions in almost all major arteries. Echo done on 03/16/2025 showed LV appears normal with EF 45-50%. Septal dyskinesis is seen, RV appears normal with RVSP 50 mmHg. Mildly dilated LA & RA Mild mitral regurgitation Mild-Moderate TR. 03/21, patient had 2 rapid response events for SVT in the 170-200s which self converted in minutes. 04/01 patient had 2 rapid response calls due to episodes of SVT, was started on amiodarone drip and subsequently underwent electrical cardioversion in ICU. Plan: - amiodarone drip and PO discontinued, recommended to resume PO amiodarone when possible. - diltiazem Cd 120 mg daily on hold. - Maintain K >4.0 and Mag >2.0. - Continue dialysis per nephrology. #Extensive atherosclerotic cardiovascular disease with bilateral femoral artery occlusions and distal trifurcation disease with gangrenous changes, ruled out. #Vasopressor-induced vasoconstriction and gangrene of B/L fingers, sequelae. -Patient has history of right extremity BKA due to severe PAD. This admission after severe shock requiring pressor support patient subsequently developed ischemia of the right and left fingertips. Vascular surgeon stated that the patient is not a candidate at this time for revascularization, however stated that would discuss case with general surgeon. Likely upper extremity digits affected by vasopressor support in combination with severe PAD causing limb ischemia. Angiography showed Normal, nonobstructive epicardial coronary arteries. Mild left ventricular dysfunction, ejection fraction 50%. Right ulnarl artery totally occluded with excellent flow from the radial artery. Left lower extremity angiogram showed widely patent SFA and trifurcation with distal dorsalis pedis 100% occlusion. Right lower extremity angiogram also showed no significant obstructive lesions until trifurcation( amputated BKA). Discontinued on aspirin, plavix and statin after angiography. Plan: - start on Eliquis 2.5 mg BID when possible, obtain general surgery recommendation regarding post op anticoagulation. #Staph hemolyticus bacteremia. Patient tested for gram-positive cocci 2/2 blood cultures on 03/21/2025, first positive blood cultures this admission. Patient has not been febrile, however has had persistent leukocytosis. Patient subsequently getting all lines removed after receiving dialysis. -Repeat echo on 03/23- Aortic valve leaflets with sclerosis calcification thickening of the cusp but no stenosis. No evidence of vegetation detected. Mitral valve annular show mild calcification mitral leaflets with thickening regurgitations.Left atrium appears to be mildly dilated.Left ventricle is normal with evidence of mild anteroseptal hypokinesis with well-preserved ejection fraction of 50 to 55%. Right heart structures normal. Mild tricuspid regurgitation with no evidence of pulmonary hypertension normal PA pressures. Tricuspid and pulmonic valves appear normal no vegetations. Compared to the study a week ago no change except some improvement in LV function. Repeat blood cultures is negative. HD catheter was exchanged. Plan: -Continue vancomycin and daptomycin IV as per ID recs. Rest of conditions to continue current management per primary team: #Acute hypoxic respiratory failure. #Community-acquired pneumonia, Stenotrophomonas maltophilia. #ESRD (HD on ). #History of type 2 diabetes. #Respiratory acidosis, resolved. #HAGMA, resolved. #Lactic acidosis, resolved. #Hyperkalemia, resolved. #Shock liver, resolved. #Possible GI bleed. #Macrocytic anemia. #Thrombocytopenia. #Hematemesis, resolved. #Hypoglycemia, resolved. Discussed the patient with my attending Dr Villalobos. iMnh Smith MD, PGY 2. Disclaimer: This note was dictated by speech recognition. Minor errors in precision aircraft structure assembler may be present due to voice recognition software.
--- NOTE | 2025-04-01 15:39 | PD.RESPROC ---
Procedures Procedure Date / Time 04/01/25 1539 Procedure Narrative Procedure Narrative: Attending attestation: Line placement was at my direction. However was not present at the time of procedure. Procedure completed by resident successfully with no immediate complications reported. Patient tolerated procedure well. Arterial Line Indication(s): frequent arterial line sampling, shock and inability to monitor non-invasive BP Informed consent obtained: obtained from surrogate decision maker Time out done, and the following verified: correct patient, side and site, procedure, patient position and implants and/or equipment Size (Gauge): 20 Technique used: guide wire technique Post-Procedure: line sutured into place and dry sterile dressing placed Patient tolerated procedure: well EBL(ml): 10 Complications: none Site: right and femoral Procedure comment: Procedure done with Dr. Del Rosario, PGY-[address] Todd, PGY-1 I have reviewed and discussed the patient's care with my attending, Paula Ziegler MD PGY-3
[2025-04-01 15:58] LABS: Base Excess -2 (-3-3); HCO3 26 mEq/L (20-26); Inspired Oxygen, FIO2 21 %; O2 Saturation 98 % (91-98); PCO2 62 mmHg (32.0-48.0); PO2 102 mmHg (83-108); pH, Arterial 7.23 (7.35-7.45)
[2025-04-01 16:09] LABS: Allen Test Not Performed; Puncture Site Arterial Line
[2025-04-01] MEDS: [UNRECOGNIZED DRUG - OTHER] IV (16:41)
[2025-04-01] MEDS: DAPTOMYCIN IV (16:41)
[2025-04-01] MEDS: EPOETIN ALFA INJ 1,000 UNIT/0.05 ML UNIT 10000 UNIT SC (16:55)
[2025-04-01 18:52] LABS: Base Excess -2 (-3-3); HCO3 26 mEq/L (20-26); Inspired Oxygen, FIO2 75 %; O2 Saturation 101 % (91-98); PCO2 61 mmHg (32.0-48.0); PO2 207 mmHg (83-108); pH, Arterial 7.24 (7.35-7.45)
[2025-04-01 19:00] LABS: Allen Test Not Performed; Puncture Site Arterial Line
[2025-04-01 20:09] LABS: Troponin I 0.175 ng/mL (0.0-0.045)
[2025-04-01] MEDS: HEPARIN SOD INJ 5000 UNIT/ML VIAL SC (21:36)
[2025-04-01] MEDS: PHENYLEPHRINE HCL 40 MG in SODIUM CHLORIDE 0.9% 96 ML 6.913 MG IV (23:26)
[2025-04-02] VITALS (105 sets, daily range): BP systolic 94–146; BP diastolic 45–66; PULSE 55–90; RESP 0–96; TEMP 36.6–37.2; O2SAT 83–100; BMI 34.4
[2025-04-02 01:23] LABS: Troponin I 0.201 ng/mL (0.0-0.045)
[2025-04-02 05:31] LABS: Base Excess -3 (-3-3); HCO3 25 mEq/L (20-26); Inspired Oxygen, FIO2 21 %; O2 Saturation 101 % (91-98); PCO2 59 mmHg (32.0-48.0); PO2 203 mmHg (83-108); pH, Arterial 7.24 (7.35-7.45)
[2025-04-02 05:55] LABS: Basophils % (Auto) 0 % (0-2.5); Eosinophils % (Auto) 0 % (0-10); Hematocrit 27.4 % (41.0-53.0); Immature Granulocytes % (Auto) 1 % (0-0); Immature Granulocytes Auto 0.13 Thou/mm3 (0.00-0.00); Lymphocytes # (Auto) 0.5 Thou/mm3 (1.0-4.8); Lymphocytes % (Auto) 4 % (10-50); Mean Corpuscular HGB Conc 31.4 g/dl (31.0-37.0); Mean Corpuscular Volume 99 fL (80-100); Monocytes # (Auto) 0.5 Thou/mm3 (0.0-0.8); Monocytes % (Auto) 4 % (0-12); Neutrophils # (Auto) 12.7 Thou/mm3 (1.8-7.7); Neutrophils % (Auto) 92 % (37-80); Nucleated Red Blood Cell % 0 /100 WBC (0); Platelet Count 207 Thou/mm3 (140-440); RDW Standard Deviation 64.9 fL (35.1-43.9); Red Blood Count 2.77 Miln/mm3 (4.50-5.90); White Blood Count 13.9 Thou/mm3 (3.8-10.6)
--- NOTE | 2025-04-02 06:00 | XR_ITS ---
Examination: AP chest single view Technique one AP portable semiupright chest single view 7 date and time: April 02, 2025, 0614 hours Comparison March 24, 2025 INDICATIONS: Shortness of breath today. FINDINGS: Mild heart failure Mild to moderate enlargement cardiac contour. Prominent vascular congestion with early edema Partial visualization right internal jugular dialysis catheter, tips in satisfactory position SVC No lobar pneumonia IMPRESSION: Mild heart failure
[2025-04-02 06:11] LABS: Hemoglobin 8.6 g/dL (13.5-16.0)
[2025-04-02 06:13] LABS: Allen Test Not Performed; Puncture Site Arterial Line
[2025-04-02 06:28] LABS: Alanine Aminotransferase 34 U/L (10-49); Albumin, Serum 3.4 gm/dL (3.5-5.0); Albumin/Globulin Ratio 1.1 (1.2-2.2); Alkaline Phosphatase 106 U/L (46-116); Anion Gap 10 (7-16); Aspartate Amino Transferase 10 U/L (0-34); BUN/Creatinine Ratio 10 Ratio (12-20); Bilirubin,Total 0.5 mg/dL (0.3-1.2); Blood Urea Nitrogen 57 mg/dL (9-23); Calcium 8.4 mg/dL (8.3-10.6); Calcium (Corrected) 8.9 mg/dL (8.5-10.1); Carbon Dioxide 25.2 mMol/L (20.0-31.0); Chloride 99 mMol/L (98-107); Creatinine (Component) 5.6 mg/dL (0.6-1.3); Globulin 3.2 gm/dL (2.3-3.5); Glucose 154 mg/dL (74-106); Magnesium 2.1 mg/dL (1.6-2.6); Osmolality,Calculated 287 (275-295); Potassium 5.8 mMol/L (3.4-5.1); Sodium 134 mMol/L (136-145); Total Protein 6.6 gm/dL (5.7-8.2); eGFR 12 See Note
[2025-04-02 06:43] LABS: Estimated Creatinine Clearance 20.9 mL/min (>60)
[2025-04-02 08:06] LABS: B-Type Natriuretic Peptide 1817 pg/mL (0-100)
--- NOTE | 2025-04-02 08:36 | PC.PT ---
Patient will be D/[place] from PT 2/2 patient is transferred to ICU.
[2025-04-02] MEDS: HEPARIN SOD INJ 5000 UNIT/ML VIAL SC ×2 (09:08→21:05)
[2025-04-02] MEDS: PANTOPRAZOLE INJ 40 MG VIAL IVP (09:08)
[2025-04-02] MEDS: HYDROmorphone INJ 2 MG/ML VIAL 0.5 MG IVP ×5 (09:09→22:12)
[2025-04-02] MEDS: SODIUM BICARBONATE 650 MG TABLET PO ×2 (09:49→21:05)
--- NOTE | 2025-04-02 10:05 | PC.SS ---
Update: Patient received BKA on 04-01-25. Patient on nasal cannula. Receiving IV antibiotics. Pressor support ceased. P.O. feedings in place. Patient receiving continuous dialysis today.
--- NOTE | 2025-04-02 11:56 | PD.SURPROG ---
Documentation for date of: 04/02/25 Subjective Subjective Narrative: Pt is seen and examined. He has agreed to proceed with right below the knee amptation. Exam Vital Signs Temp Pulse Resp BP Pulse Ox O2 Del Method O2 Flow Rate 98.0 F 72 14 114/53 L 98 BiPAP 4 04/02/25 10:20 04/02/25 11:45 04/02/25 11:15 04/02/25 11:45 04/02/25 11:15 04/02/25 08:00 04/02/25 10:20 FiO2 30 04/02/25 08:00 Assessment & Plan Diagnosis (1) Atherosclerosis of right lower extremity with gangrene: Status: Acute Plan Pt will undergo right BKA later today. Risks include but not limited to infection, bleeding, injury to neurovascular structures, chronic nonhealing wound, stump infection and or necrosis, possible need for future amputation discussed with the patient. Benefits and alternatives explained to him, all his questions answered, he agreed and consented to proceed with the operation. Procedures Procedures Guillotine amputation left distal leg (1) Atherosclerosis of right lower extremity with gangrene Qualifiers: Peripheral atherosclerosis artery type: [place] artery Qualified Code(s): I70.261 - Atherosclerosis of [place] arteries of extremities with gangrene, right leg
--- NOTE | 2025-04-02 13:30 | PC.SS ---
FIRE WATCHMAN received phone call from [facility] staff, Zoraida ext [phone]; requesting update on patient. Patient's [facility] reference number is: [id number]. In addition, FIRE WATCHMAN informed that patient's IPA is [email or web address] . [employer] is patient's HMO provider.
--- NOTE | 2025-04-02 15:18 | ESPR_ITS ---
Documentation for date of: 04/02/25 Subjective Subjective Interval history: Patient is a 49 year old male with a past medical history of diabetes mellitus type 2, Hypertension, ESRD (T/TH), HFpEF 50 to 55% w/ mild hypokinesis of anteroseptal wall (03/23/2025), Right BKA who was initially admitted on 03/14/2025 for shock requiring pressor on unknown etiology, suspected septic given lower limb ischemia. Patient previous downgraded on 03/20/2025 to floors team for further management. ICU team consulted on 04/01/2025 shock likely septic in nature requiring phenylenphrine. Rapid response called at 7:48 AM for possible seizure likel activity, patient received Ativan. MAP noted at the time of 70. Second rapid response called at 8:20 AM for HR of 140s, spo2 of 80s/70s appearing lethargic and MAP of 55-64. Given hymodynamic instability, decision was made by patient's cardiovert patient. Patient DNI/DRI but elected fro cardioversion and upgrade to ICU. Amiodarone drip started overnight and discontinued during rapid response this morning. Shortly after arrival to ICU patient was taken by general surgery for schedule left lower extremity BKA. Patient started on phenylephrine secondary to shock. 04/02- Patient's mentation continued to improve overnight. He was requesting to be taken off of BiPAP due to discomfort. Complaining of dry mouth significant right hand pain due to digital necrosis. Patient given Dilaudid on multiple occasions with adequate control. Placed on Tylenol for hemodialysis and optimization of multiple electrolyte abnormalities including volume removal. Patient able to be transition from BiPAP/AVAPS to nasal cannula comfortably. Patient able to pass swallow evaluation at bedside and a renal diet was initiated. Patient not accompanied by family at this point but able to give history himself. Patient's left lower extremity continues to be stable with no significant bleeding at the dressing site overnight. Left femoral A-line and CVC remain in place with no significant hematoma. Critical Care Note Critical care time (min.): 40 Exam Vital Signs Temp Pulse Resp BP Pulse Ox O2 Del Method O2 Flow Rate 98.2 F 75 15 121/57 L 100 Nasal Cannula 4 04/02/25 12:00 04/02/25 15:15 04/02/25 15:00 04/02/25 15:15 04/02/25 15:00 04/02/25 12:00 04/02/25 12:00 FiO2 50 04/02/25 14:28 Narrative Exam General Appearance: Alert & Oriented X3, well-nourished male who is lying in bed with bilateral BKA. Right lower digits necrosis noted. HEENT: Skull symmetrical and atraumatic. Conjunctivae pink and moist. Pupils equal, round, reactive to light and accommodation (PERRL). External ear without lesion or discharge. Straight, nares patient, mucosa pink, no discharge. Cardio: Normal Rate and Rhythm with S1 and S2 heart sounds. No murmurs or extra heart sounds auscultated. No bruits on carotid auscultation. Lungs: Symmetric with good expansion. Chest and back non-tender. Breath sounds vesicular without crackles or rhonchi Abdomen: Non-tender, Non-distended, Normal Reactive Bowel Sounds Neuro: Nonfocal on gross neurological exam, sensation intact EXT: Right upper extremity with multiple digital necrosis/dry gangrene, left lower extremity with bandage intact no significant bleeding site. Right lower extremity stump appears to have no wound cultures distal scarring/discoloration suggesting hypoperfusion. Left groin with arterial/CVC placement with no significant hematoma or tenderness to palpation. Physical Exam Completion Physical Exam Complete?: Yes Objective - Primary Care Provider Labs 04/02/25 04:36 04/02/25 04:36 Labs: Laboratory Results - last 24 hr 03/31/25 04/01/25 04/01/25 16:06 15:50 18:40 WBC RBC Hgb Hct MCV MCH MCHC RDW Std Deviation Plt Count Neut % (Auto) Lymph % (Auto) [place] % (Auto) Eos % (Auto) Baso % (Auto) Neut # (Auto) Lymph # (Auto) [place] # (Auto) Eos # (Auto) Baso # (Auto) Immature Gran # (Auto) Absolute Nucleated RBC Immature Gran % Nucleated RBC % Puncture Site Arterial Line Arterial Line ABG pH 7.23 L 7.24 L ABG pCO2 62 H 61 H ABG pO2 102 207 H D ABG HCO3 26 26 ABG O2 Saturation 98 101 H ABG Base Excess -2 -2 FiO2 21 75 Sodium Potassium Chloride Carbon Dioxide Anion Gap BUN Creatinine Estim Creat Clear Calc eGFR BUN/Creatinine Ratio Glucose Calculated Osmolality Calcium Corrected Calcium Phosphorus Magnesium Total Bilirubin AST ALT Alkaline Phosphatase Troponin I B-Natriuretic Peptide Total Protein Albumin Globulin Albumin/Globulin Ratio Random Vancomycin Crossmatch See Detail 04/01/25 04/02/25 04/02/25 19:22 00:45 04:36 WBC 13.9 H RBC 2.77 L Hgb 8.6 L Hct 27.4 L MCV 99 MCH 31.0 MCHC 31.4 RDW Std Deviation 64.9 H Plt Count 207 D Neut % (Auto) 92 H Lymph % (Auto) 4 L [place] % (Auto) 4 Eos % (Auto) 0 Baso % (Auto) 0 Neut # (Auto) 12.7 H Lymph # (Auto) 0.5 L [place] # (Auto) 0.5 Eos # (Auto) 0.0 Baso # (Auto) 0.0 Immature Gran # (Auto) 0.13 H Absolute Nucleated RBC 0.00 Immature Gran % 1 H Nucleated RBC % 0 Puncture Site ABG pH ABG pCO2 ABG pO2 ABG HCO3 ABG O2 Saturation ABG Base Excess FiO2 Sodium 134 L Potassium 5.8 H D Chloride 99 Carbon Dioxide 25.2 Anion Gap 10 BUN 57 H Creatinine 5.6 H* D Estim Creat Clear Calc 20.9 L eGFR 12 L* BUN/Creatinine Ratio 10 L Glucose 154 H Calculated Osmolality 287 Calcium 8.4 Corrected Calcium 8.9 Phosphorus 9.0 H Magnesium 2.1 Total Bilirubin 0.5 AST 10 ALT 34 Alkaline Phosphatase 106 Troponin I 0.175 H* 0.201 H* B-Natriuretic Peptide 1817 H* Total Protein 6.6 Albumin 3.4 L Globulin 3.2 Albumin/Globulin Ratio 1.1 L Random Vancomycin 11.0 Crossmatch 04/02/25 04:45 WBC RBC Hgb Hct MCV MCH MCHC RDW Std Deviation Plt Count Neut % (Auto) Lymph % (Auto) [place] % (Auto) Eos % (Auto) Baso % (Auto) Neut # (Auto) Lymph # (Auto) [place] # (Auto) Eos # (Auto) Baso # (Auto) Immature Gran # (Auto) Absolute Nucleated RBC Immature Gran % Nucleated RBC % Puncture Site Arterial Line ABG pH 7.24 L ABG pCO2 59 H ABG pO2 203 H ABG HCO3 25 ABG O2 Saturation 101 H ABG Base Excess -3 FiO2 21 Sodium Potassium Chloride Carbon Dioxide Anion Gap BUN Creatinine Estim Creat Clear Calc eGFR BUN/Creatinine Ratio Glucose Calculated Osmolality Calcium Corrected Calcium Phosphorus Magnesium Total Bilirubin AST ALT Alkaline Phosphatase Troponin I B-Natriuretic Peptide Total Protein Albumin Globulin Albumin/Globulin Ratio Random Vancomycin Crossmatch Assessment & Plan Problem List (1) Atherosclerosis of right lower extremity with gangrene: Status: Acute Additional Assessment Additional Assessment: In summary this is a 49yo M admitted to the ICU for shock and acute resp failure a/p [employer] Acute Encephalopathy-resolved 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 some LVH and some septal flattening on parasternal short view, no pericardial effusion no evidence of obstructive etiology noted and not felt to have large PE. contractility appears adequate at this time and not felt to have a current cardiogenic component. received minimal IVF on arrival and therefore given additional volume overnight. will need cheeta for further hemodynamics and ? distributive v hypovolemic in etiology. on broad spectrum abx for infectious etiology possibility . will check a formal echo and SvO2 - Taken off of phenylephrine ? acute v chronic limb ischemia no role for anticoagulation after selective angiogram -Septic shock likely secondary to significant necrosis and infection on empiric antibiotics, POD#1 after left foot amputation SVT- had episode yesterday likely precipitated by infection tissue necrosis - Responded to electrical cardioversion - acute hypotension post cardioversion supported with phenylephrine which is now resolved - continue to hold patient's midodrine at this point. Resp Acute Hypoxic resp failure-remains DNI as per his previous wishes - successfully weaned off of noninvasive positive pressure ventilation - Plan for continued nocturnal ventilatory support with transition to nasal cannula during the day - No suspicion for pneumonia at this time Renal ESRD on HD Continues to have multiple electrolyte derangements and metabolic acidosis now improved after HD yesterday Plan for continue this renal replacement therapy using Tablo, plan for slow HD for 12 hours with a goal of 1 L net removal GI Hepatitis- baseline is nl, unclear etiology, check viral panel, may be 2/2 hypotension v hypoxia, check a RUQ abd us with doppler to eval for any poss thrombosis - LFTs trending down GI proph- PPI Endo Placed on SS insulin for diabetes, remains at goal less than 180 Heme Leukocytosis-reactive and secondary to infection Anemia- near baseline Thrombocytopenia-normalized - no active bleeding noted given 2 units PRBC yesterday preoperatively with hemodialysis Continue to hold anticoagulation at this time apart from appropriate DVT prophylaxis with heparin ID Left lower extremity cellulitis/tissue necrosis Status post left foot amputation Resolution of underlying septic shock and tachyarrhythmia likely secondary to this Continue on empiric antibiotics with daptomycin and Zosyn, adjust for renal function Pain control with Dilaudid in setting of renal failure Total critical care time: I personally spent 40 minutes for review of physiologic parameters, directing plan of care throughout the day, coordination of care with other subspecialists and extensive counseling patient at bedside. Patient remains at significant risk for further morbidity and mortality warranting close monitoring and care only available in the intensive care unit. Patient requiring critical care services for SVT and septic shock secondary to left lower extremity cellulitis/ischemic limb. Provider Notation Provider Notation: Although this document has been carefully reviewed, there may still be some phonetic and other typographical errors. These errors are purely grammatical due to imperfections in the software program and should not be construed in any way to compromise the substance of the patient's medical care during this visit. Thank you for the opportunity and privilege in assisting you with this patient's care and management. (1) Atherosclerosis of right lower extremity with gangrene Qualifiers: Peripheral atherosclerosis artery type: [place] artery Qualified Code(s): I 70.261 - Atherosclerosis of [place] arteries of extremities with gangrene, right leg
--- NOTE | 2025-04-02 15:20 | PD.IMPROG ---
Documentation for date of: 04/02/25 Subjective Subjective Interval history: Patient seen and examined at the bedside in the ICU. Patient is status post Gullitone amputation of the left distal leg on 04/01/2025 Postoperatively patient is doing well and is off any kind of pressors. Patient was on BiPAP which was weaned transition to nasal cannula. Tolerating hemodialysis well during my exam. Rest of the vitals and labs have been reviewed and appear to be stable. I reviewed the rest of the chart and patient necrosis of the disease and extremities is mostly secondary to his high vasopressor requirements initially when he was admitted. Cardiac catheterization as well as bilateral lower extremity angiograms did not show any significant disease. Would recommend to continue conservative medical management for now for the patient Exam Vital Signs Temp Pulse Resp BP Pulse Ox O2 Del Method O2 Flow Rate 98.2 F 75 15 121/57 L 100 Nasal Cannula 4 04/02/25 12:00 04/02/25 15:15 04/02/25 15:00 04/02/25 15:15 04/02/25 15:00 04/02/25 12:00 04/02/25 12:00 FiO2 50 04/02/25 14:28 Narrative Exam Gen: Well-developed male. HEENT: NCAT, PERRLA, EOMI, MMM, anicteric conjunctivae. CVS: normal S1 and S2. RRR. No M/R/G. Resp: CTA B/L. No rhonchi, rales, crackles or wheezing. Abd: soft, non-tender, non-distended. BS+ in all 4 quadrants. MSK: S/p right BKA, stump appears necrotic, right thigh has blister. 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 Dry gangrene over right 2nd and 3rd digits. Tip of left second digit appears necrotic. Neuro: CN II-XII grossly intact. Alert and oriented x3. Psych: appropriate mood and affect. Objective Labs 04/02/25 04:36 04/03/25 00:25 Labs: Laboratory Results - last 24 hr 03/31/25 04/01/25 04/01/25 16:06 15:50 18:40 WBC RBC Hgb Hct MCV MCH MCHC RDW Std Deviation Plt Count Neut % (Auto) Lymph % (Auto) [place] % (Auto) Eos % (Auto) Baso % (Auto) Neut # (Auto) Lymph # (Auto) [place] # (Auto) Eos # (Auto) Baso # (Auto) Immature Gran # (Auto) Absolute Nucleated RBC Immature Gran % Nucleated RBC % Puncture Site Arterial Line Arterial Line ABG pH 7.23 L 7.24 L ABG pCO2 62 H 61 H ABG pO2 102 207 H D ABG HCO3 26 26 ABG O2 Saturation 98 101 H ABG Base Excess -2 -2 FiO2 21 75 Sodium Potassium Chloride Carbon Dioxide Anion Gap BUN Creatinine Estim Creat Clear Calc eGFR BUN/Creatinine Ratio Glucose Calculated Osmolality Calcium Corrected Calcium Phosphorus Magnesium Total Bilirubin AST ALT Alkaline Phosphatase Troponin I B-Natriuretic Peptide Total Protein Albumin Globulin Albumin/Globulin Ratio Random Vancomycin Crossmatch See Detail 04/01/25 04/02/25 04/02/25 19:22 00:45 04:36 WBC 13.9 H RBC 2.77 L Hgb 8.6 L Hct 27.4 L MCV 99 MCH 31.0 MCHC 31.4 RDW Std Deviation 64.9 H Plt Count 207 D Neut % (Auto) 92 H Lymph % (Auto) 4 L [place] % (Auto) 4 Eos % (Auto) 0 Baso % (Auto) 0 Neut # (Auto) 12.7 H Lymph # (Auto) 0.5 L [place] # (Auto) 0.5 Eos # (Auto) 0.0 Baso # (Auto) 0.0 Immature Gran # (Auto) 0.13 H Absolute Nucleated RBC 0.00 Immature Gran % 1 H Nucleated RBC % 0 Puncture Site ABG pH ABG pCO2 ABG pO2 ABG HCO3 ABG O2 Saturation ABG Base Excess FiO2 Sodium 134 L Potassium 5.8 H D Chloride 99 Carbon Dioxide 25.2 Anion Gap 10 BUN 57 H Creatinine 5.6 H* D Estim Creat Clear Calc 20.9 L eGFR 12 L* BUN/Creatinine Ratio 10 L Glucose 154 H Calculated Osmolality 287 Calcium 8.4 Corrected Calcium 8.9 Phosphorus 9.0 H Magnesium 2.1 Total Bilirubin 0.5 AST 10 ALT 34 Alkaline Phosphatase 106 Troponin I 0.175 H* 0.201 H* B-Natriuretic Peptide 1817 H* Total Protein 6.6 Albumin 3.4 L Globulin 3.2 Albumin/Globulin Ratio 1.1 L Random Vancomycin 11.0 Crossmatch 04/02/25 04:45 WBC RBC Hgb Hct MCV MCH MCHC RDW Std Deviation Plt Count Neut % (Auto) Lymph % (Auto) [place] % (Auto) Eos % (Auto) Baso % (Auto) Neut # (Auto) Lymph # (Auto) [place] # (Auto) Eos # (Auto) Baso # (Auto) Immature Gran # (Auto) Absolute Nucleated RBC Immature Gran % Nucleated RBC % Puncture Site Arterial Line ABG pH 7.24 L ABG pCO2 59 H ABG pO2 203 H ABG HCO3 25 ABG O2 Saturation 101 H ABG Base Excess -3 FiO2 21 Sodium Potassium Chloride Carbon Dioxide Anion Gap BUN Creatinine Estim Creat Clear Calc eGFR BUN/Creatinine Ratio Glucose Calculated Osmolality Calcium Corrected Calcium Phosphorus Magnesium Total Bilirubin AST ALT Alkaline Phosphatase Troponin I B-Natriuretic Peptide Total Protein Albumin Globulin Albumin/Globulin Ratio Random Vancomycin Crossmatch ABG Interpretation ABG results: 03/14/25 03/14/25 03/14/25 14:44 16:44 18:53 ABG pH 7.03 L* 7.04 L* 7.10 L* ABG pCO2 43 50 H 46 ABG pO2 86 128 H D 57 L* D ABG HCO3 11 L 13 L 14 L ABG O2 Saturation 91 97 78 L ABG Base Excess -19 L -17 L -15 L VBG pH VBG pCO2 VBG pO2 VBG Base Excess 03/14/25 03/15/25 03/15/25 21:20 05:07 12:28 ABG pH 7.21 L D 7.41 D ABG pCO2 32 D 31 L ABG pO2 116 H D 74 L D ABG HCO3 13 L 20 ABG O2 Saturation 97 95 ABG Base Excess -14 L -4 L VBG pH 7.43 VBG pCO2 34 L VBG pO2 37 VBG Base Excess -1 03/16/25 03/16/25 03/16/25 04:51 11:48 19:30 ABG pH 7.46 H 7.22 L D 7.38 D ABG pCO2 29 L 66 H D 48 D ABG pO2 78 L 79 L 236 H D ABG HCO3 21 27 H 29 H ABG O2 Saturation 96 91 100 H ABG Base Excess -2 -2 3 VBG pH VBG pCO2 VBG pO2 VBG Base Excess 03/17/25 03/18/25 03/19/25 04:53 09:27 04:46 ABG pH 7.38 7.35 ABG pCO2 49 H 48 ABG pO2 78 L D 92 ABG HCO3 29 H 26 ABG O2 Saturation 95 98 ABG Base Excess 3 0 VBG pH 7.34 VBG pCO2 54 D VBG pO2 34 VBG Base Excess 2 03/24/25 04/01/25 04/01/25 22:00 04:53 15:50 ABG pH 7.33 L 7.23 L ABG pCO2 48 62 H ABG pO2 233 H 102 ABG HCO3 25 26 ABG O2 Saturation 101 H 98 ABG Base Excess -1 -2 VBG pH 7.24 L VBG pCO2 57 H VBG pO2 51 VBG Base Excess -3 04/01/25 04/02/25 18:40 04:45 ABG pH 7.24 L 7.24 L ABG pCO2 61 H 59 H ABG pO2 207 H D 203 H ABG HCO3 26 25 ABG O2 Saturation 101 H 101 H ABG Base Excess -2 -3 VBG pH VBG pCO2 VBG pO2 VBG Base Excess Assessment & Plan A&P Narrative 49-year-old male with past medical history of DM2, hypertension, ESRD (HD ), HFpEF (EF 55% on 2021), and right BKA due to osteomyelitis was initially admitted to the ICU on 03/14/2025 for acute hypoxic respiratory failure, acute encephalopathy, and shock. He was subsequently extubated and downgraded to telemetry on 03/20/2025 for continuation of care. #Septic shock. #Left foot gangrene, s/p BKA. Likely due to infection and gangrene in left foot, was amputated today by general surgery. WBC today 12.8. Initially started on phenylephrine and vasopressin but now only on phenylephrine 0.5/mcg/kg/min. He also was given 2 units pRBC transfusion due to borderline anemia and upcoming surgery, last hemoglobin post transfusion 8.3. Plan: - continue on pressor support to maintain MAP > 65. - continue daptomycin and vancomycin IV. - midodrine on hold. #Status post acute non-ST segment elevation myocardial infarction, NSTEMI possible type 2 troponin versus NSTEMI. #SVT episodes. #Afib, rate controlled. #Decompensated HFpEF (EF 45-50%). Patient s/p intubation and pressor support in ICU for shock, distributive secondary to sepsis versus cardiogenic. Patient initially presented to ED in SVT and required shock x1. Troponin initially 1.856 uptrended to 7.899 peak. Patient was treated for pneumonia. Patient was able to wean off pressors, extubated, now downgraded to tele. CT LER showed diffuse stenosis on the arteries of the LLE, occlusions in almost all major arteries. Echo done on 03/16/2025 showed LV appears normal with EF 45-50%. Septal dyskinesis is seen, RV appears normal with RVSP 50 mmHg. Mildly dilated LA & RA Mild mitral regurgitation Mild-Moderate TR. 03/21, patient had 2 rapid response events for SVT in the 170-200s which self converted in minutes. 04/01 patient had 2 rapid response calls due to episodes of SVT, was started on amiodarone drip and subsequently underwent electrical cardioversion in ICU. Plan: - amiodarone drip and PO discontinued, recommended to resume PO amiodarone when possible. - diltiazem Cd 120 mg daily on hold. - Maintain K >4.0 and Mag >2.0. - Continue dialysis per nephrology. #Extensive atherosclerotic cardiovascular disease with bilateral femoral artery occlusions and distal trifurcation disease with gangrenous changes, ruled out. #Vasopressor-induced vasoconstriction and gangrene of B/L fingers, sequelae. -Patient has history of right extremity BKA due to severe PAD. This admission after severe shock requiring pressor support patient subsequently developed ischemia of the right and left fingertips. Vascular surgeon stated that the patient is not a candidate at this time for revascularization, however stated that would discuss case with general surgeon. Likely upper extremity digits affected by vasopressor support in combination with severe PAD causing limb ischemia. Angiography showed Normal, nonobstructive epicardial coronary arteries. Mild left ventricular dysfunction, ejection fraction 50%. Right ulnarl artery totally occluded with excellent flow from the radial artery. Left lower extremity angiogram showed widely patent SFA and trifurcation with distal dorsalis pedis 100% occlusion. Right lower extremity angiogram also showed no significant obstructive lesions until trifurcation( amputated BKA). Discontinued on aspirin, plavix and statin after angiography. Plan: 04/02/2025-patient is status post Gullitone amputation of the left distal leg on 04/01/2025. Postoperatively patient is doing well and is off any kind of pressors.Patient was on BiPAP which was weaned transition to nasal cannula. Patient on hemodialysis during my exam. Rest of the vitals and labs have been reviewed and appear to be stable. I reviewed the rest of the chart and patient necrosis of the disease and extremities is mostly secondary to his high vasopressor requirements initially when he was admitted.Cardiac catheterization as well as bilateral lower extremity angiograms did not show any significant disease. Would recommend to continue conservative medical management for now for the patient - start on Eliquis 2.5 mg BID when possible, obtain general surgery recommendation regarding post op anticoagulation. #Staph hemolyticus bacteremia. Patient tested for gram-positive cocci 2/2 blood cultures on 03/21/2025, first positive blood cultures this admission. Patient has not been febrile, however has had persistent leukocytosis. Patient subsequently getting all lines removed after receiving dialysis. -Repeat echo on 03/23- Aortic valve leaflets with sclerosis calcification thickening of the cusp but no stenosis. No evidence of vegetation detected. Mitral valve annular show mild calcification mitral leaflets with thickening regurgitations.Left atrium appears to be mildly dilated.Left ventricle is normal with evidence of mild anteroseptal hypokinesis with well-preserved ejection fraction of 50 to 55%. Right heart structures normal. Mild tricuspid regurgitation with no evidence of pulmonary hypertension normal PA pressures. Tricuspid and pulmonic valves appear normal no vegetations. Compared to the study a week ago no change except some improvement in LV function. Repeat blood cultures is negative. HD catheter was exchanged. Plan: -Continue vancomycin and daptomycin IV as per ID recs. Rest of conditions to continue current management per primary team: #Acute hypoxic respiratory failure. #Community-acquired pneumonia, Stenotrophomonas maltophilia. #ESRD (HD on ). #History of type 2 diabetes. #Respiratory acidosis, resolved. #HAGMA, resolved. #Lactic acidosis, resolved. #Hyperkalemia, resolved. #Shock liver, resolved. #Possible GI bleed. #Macrocytic anemia. #Thrombocytopenia. #Hematemesis, resolved. #Hypoglycemia, resolved. Management of rest of the medical conditions as per primary team and other consultants. Thank you for the consult and allowing me to participate in the care of the patient. Cardiology will continue to follow. Jude Truong M.D. Interventional Cardiology Time Spent With Patient Time: Total time spent is greater than 50% in coordination of care (as documented) at patient's floor/unit and/or counseling patient: Procedures Arterial Line Size (Gauge): 20
[2025-04-02] MEDS: PIPER/TAZO INJ 4.5 GM in SODIUM CHLORIDE 0.9% (POP) 100 ML IV (16:02)
[2025-04-02 16:30] LABS: Alanine Aminotransferase 28 U/L (10-49); Albumin/Globulin Ratio 1.1 (1.2-2.2); Alkaline Phosphatase 89 U/L (46-116); Anion Gap 8 (7-16); Aspartate Amino Transferase < 10 U/L (0-34); BUN/Creatinine Ratio 10 Ratio (12-20); Bilirubin,Total 0.4 mg/dL (0.3-1.2); Blood Urea Nitrogen 34 mg/dL (9-23); Calcium 7.7 mg/dL (8.3-10.6); Calcium (Corrected) 8.5 mg/dL (8.5-10.1); Carbon Dioxide 26.5 mMol/L (20.0-31.0); Chloride 101 mMol/L (98-107); Creatinine (Component) 3.5 mg/dL (0.6-1.3); Estimated Creatinine Clearance 33.4 mL/min (>60); Globulin 2.8 gm/dL (2.3-3.5); Glucose 149 mg/dL (74-106); Osmolality,Calculated 280 (275-295); Potassium 4.2 mMol/L (3.4-5.1); Sodium 135 mMol/L (136-145); Total Protein 5.8 gm/dL (5.7-8.2); eGFR 20 See Note
[2025-04-02 18:17] LABS: Lactate (Lactic Acid) 1.2 mMol/L (0.4-2.0)
[2025-04-02 18:57] LABS: Alanine Aminotransferase 29 U/L (10-49); Albumin, Serum 3.2 gm/dL (3.5-5.0); Albumin/Globulin Ratio 1.1 (1.2-2.2); Alkaline Phosphatase 90 U/L (46-116); Anion Gap 8 (7-16); Aspartate Amino Transferase 11 U/L (0-34); BUN/Creatinine Ratio 9 Ratio (12-20); Bilirubin,Total 0.4 mg/dL (0.3-1.2); Blood Urea Nitrogen 28 mg/dL (9-23); Calcium 8.3 mg/dL (8.3-10.6); Calcium (Corrected) 8.9 mg/dL (8.5-10.1); Carbon Dioxide 26.3 mMol/L (20.0-31.0); Chloride 98 mMol/L (98-107); Estimated Creatinine Clearance 38.9 mL/min (>60); Glucose 143 mg/dL (74-106); Osmolality,Calculated 272 (275-295); Potassium 3.8 mMol/L (3.4-5.1); Sodium 132 mMol/L (136-145); Total Protein 6.2 gm/dL (5.7-8.2); eGFR 24 See Note
[2025-04-02] MEDS: HEPARIN SOD INJ 1000 UNIT/ML VIAL 10 ML 3800 UNIT INDWELLCAT (22:47)
[2025-04-03] VITALS (56 sets, daily range): BP systolic 1–172; BP diastolic 1–91; PULSE 59–85; RESP 4–23; TEMP 36.6–37; O2SAT 92–100; BMI 35.2
[2025-04-03 00:34] LABS: Lactate (Lactic Acid) 1.5 mMol/L (0.4-2.0)
[2025-04-03 01:00] LABS: Alanine Aminotransferase 27 U/L (10-49); Albumin, Serum 2.9 gm/dL (3.5-5.0); Albumin/Globulin Ratio 1.1 (1.2-2.2); Alkaline Phosphatase 85 U/L (46-116); Anion Gap 4 (7-16); Aspartate Amino Transferase < 10 U/L (0-34); BUN/Creatinine Ratio 9 Ratio (12-20); Bilirubin,Total 0.4 mg/dL (0.3-1.2); Blood Urea Nitrogen 24 mg/dL (9-23); Calcium 7.7 mg/dL (8.3-10.6); Calcium (Corrected) 8.6 mg/dL (8.5-10.1); Carbon Dioxide 28.3 mMol/L (20.0-31.0); Chloride 102 mMol/L (98-107); Creatinine (Component) 2.6 mg/dL (0.6-1.3); Estimated Creatinine Clearance 44.9 mL/min (>60); Globulin 2.7 gm/dL (2.3-3.5); Glucose 143 mg/dL (74-106); Osmolality,Calculated 274 (275-295); Potassium 3.6 mMol/L (3.4-5.1); Sodium 134 mMol/L (136-145); Total Protein 5.6 gm/dL (5.7-8.2); eGFR 29 See Note
[2025-04-03] MEDS: HYDROmorphone INJ 2 MG/ML VIAL 0.5 MG IVP ×4 (02:50→12:14)
[2025-04-03 05:33] LABS: Base Excess 2 (-3-3); HCO3 28 mEq/L (20-26); Inspired Oxygen, FIO2 21 %; O2 Saturation 100 % (91-98); PCO2 56 mmHg (32.0-48.0); PO2 123 mmHg (83-108); pH, Arterial 7.31 (7.35-7.45)
[2025-04-03 05:38] LABS: Puncture Site Arterial Line
--- NOTE | 2025-04-03 06:00 | XR_ITS ---
Examination: AP chest single view TECHNIQUE: AP portable semiupright chest single view. Examination time: April 03, 2025, 0700 hours Comparison April 02, 2025 INDICATIONS: Acute encephalopathy, diagnoses acute hypoxic respiratory failure elevated troponin, shortness of breath history FINDINGS: Moderate enlargement cardiac contour Opacity left base retrocardiac area obscuring detail medial portion left hemidiaphragm consistent with pneumonia Prominent vascular congestion with mild septal edema at the lung bases Right internal jugular dialysis catheter tips SVC satisfactory position IMPRESSION: Mild heart failure. Pneumonia left base retrocardiac, consider aspiration pneumonia
[2025-04-03 06:10] LABS: Basophils % (Auto) 0 % (0-2.5); Eosinophils % (Auto) 0 % (0-10); Hematocrit 23.2 % (41.0-53.0); Immature Granulocytes % (Auto) 1 % (0-0); Immature Granulocytes Auto 0.05 Thou/mm3 (0.00-0.00); Lymphocytes # (Auto) 0.5 Thou/mm3 (1.0-4.8); Lymphocytes % (Auto) 8 % (10-50); Mean Corpuscular HGB Conc 30.6 g/dl (31.0-37.0); Mean Corpuscular Hemoglobin 30.3 pg (25.0-35.0); Mean Corpuscular Volume 99 fL (80-100); Monocytes # (Auto) 0.5 Thou/mm3 (0.0-0.8); Monocytes % (Auto) 9 % (0-12); Neutrophils # (Auto) 4.8 Thou/mm3 (1.8-7.7); Neutrophils % (Auto) 81 % (37-80); Nucleated Red Blood Cell % 0 /100 WBC (0); Platelet Count 128 Thou/mm3 (140-440); RDW Standard Deviation 64.2 fL (35.1-43.9); Red Blood Count 2.34 Miln/mm3 (4.50-5.90); White Blood Count 5.9 Thou/mm3 (3.8-10.6)
[2025-04-03 06:12] LABS: Hemoglobin 7.1 g/dL (13.5-16.0)
[2025-04-03 06:40] LABS: Alanine Aminotransferase 27 U/L (10-49); Albumin, Serum 3.1 gm/dL (3.5-5.0); Albumin/Globulin Ratio 1.1 (1.2-2.2); Alkaline Phosphatase 92 U/L (46-116); Anion Gap 8 (7-16); Aspartate Amino Transferase 11 U/L (0-34); BUN/Creatinine Ratio 9 Ratio (12-20); Bilirubin,Total 0.4 mg/dL (0.3-1.2); Blood Urea Nitrogen 26 mg/dL (9-23); Calcium 7.8 mg/dL (8.3-10.6); Calcium (Corrected) 8.5 mg/dL (8.5-10.1); Carbon Dioxide 28.2 mMol/L (20.0-31.0); Chloride 100 mMol/L (98-107); Creatinine (Component) 2.8 mg/dL (0.6-1.3); Estimated Creatinine Clearance 41.4 mL/min (>60); Globulin 2.9 gm/dL (2.3-3.5); Glucose 134 mg/dL (74-106); Magnesium 1.9 mg/dL (1.6-2.6); Osmolality,Calculated 278 (275-295); Phosphorous 4.2 mg/dL (2.4-5.1); Potassium 3.7 mMol/L (3.4-5.1); Sodium 136 mMol/L (136-145); eGFR 26 See Note
--- NOTE | 2025-04-03 09:41 | PD.RESPRO ---
Documentation for date of: 04/03/25 Subjective Subjective Interval history: Mr. Mcclain is a 49-year-old male with past medical history of type 2 diabetes mellitus, hypertension, end-stage renal disease (HD ), HFpEF (EF 50 to 55% 02/2025) and right BKA due to osteomyelitis who was brought in by ambulance to [facility] emergency department on 03/14/2025 with a chief complaint of altered mental status. Patient was intubated secondary to inability to protect airway. On presentation patient's assisted with procuring history, per patient's patient had progressive shortness of breath and had change in mentation, patient was found to be in SVT when EMS arrived was shocked once and was converted to sinus rhythm. Patient also had to get additional sessions of hemodialysis due to increase in weight, last session of hemodialysis before admission to the hospital was on 12 March 2025. Patient also does have history of methamphetamine use, urine tox screen was positive for methamphetamine and marijuana on presentation. With the progression of hospital course patient was initially managed in the intensive care unit for acute hypoxic respiratory failure was found to have stenotrophomonas maltophilia pneumonia was treated with IV antibiotics, had significant lactic acidosis respiratory acidosis and high anion gap metabolic acidosis which improved in ICU patient did require CRRT and was eventually transition to hemodialysis, patient was eventually extubated on downgraded to telemetry on 03/20/2025. Patient's hospital stay is further complicated with possible acute versus chronic limb ischemia and underlying severe peripheral vascular disease, needle polisher discussed case with vascular surgeon at [facility] during the hospitalization, patient was a poor candidate for revascularization per documentation. Patient started on amiodarone for underlying atrial fibrillation and eventually infectious disease consulted for Staph haemolyticus bacteremia possible CLABSI. Patient continue to receive inpatient hemodialysis. 03/25/2025: Patient successfully completed 3 hours 4 minutes of dialysis session today, postdialysis weight 115.9 kg was hypotensive at times during the dialysis, tolerated dialysis well through the temporary dialysis catheter. Net fluid removed 0.5 L. Blood pressure was soft, received 2 bags of albumin during the dialysis session.Patient will need permanent dialysis catheter placement, will be scheduled with interventional radiology in a.m. after holding aspirin and Plavix. Patient will be made n.p.o. after midnight by primary team. 03/26/2025: Patient seen and examined at bedside, patient had permanent tunneled dialysis catheter placed today. Currently complains of some back pain. Patient will continue to receive IV antibiotics until 04/05/2025 with hemodialysis. Otherwise patient is stable, has no current complaints. Anticipate discharge in next 24 hours on supplemental oxygen. 03/27/2025:Patient received dialysis treatment today, completed about 2 hours of dialysis session, about 1.1 L fluid removed, postdialysis weight 115 kg, was administered 100 mL albumin during the dialysis session for low blood pressure, patient did receive alteplase through the indwelling catheter x 1. Primary team discussed the case with patient and patient's family, patient has been requiring an extensive amount of IV pain medication, further plan by primary team is to discharge patient [facility] and not on hospice as patient does not have underlying clear etiology for hospice. Patient's DAPT being held, cardiology following the case and patient may undergo angiogram heart, bilateral upper and lower extremities on Saturday. 03/28/2025: Patient continues to complain of pain, patient's gabapentin changed to pregabalin 25 twice daily and Stone was increased to 7.5 mg. Patient Aspirin and Plavix being held, patient going to undergo cardiac angiogram and angiogram upper and lower extremities likely in the morning. Will coordinate with cardiology. 03/29/2025: Labs and Vitals reviewed. Patient scheduled for Procedure with Cardiology Today, will plan for dialysis pot procedure after discussion with Cardiology Team, otherwise patient is stable, has no current complains. Pregabalin dose adjusted by primrary team. 03/30/2025: Patient received dialysis treatment today, received dialysis for 3 hours 6-minute, about 2 L fluid removed, postdialysis weight 112.3, patient was administered 100 mL of albumin during dialysis. Patient had his angiogram done yesterday showed right ulnar artery to be totally occluded or absent and there was no CAD. Cardiology recommended to stop patient's aspirin, Plavix, metoprolol, and statin and they also started the patient on diltiazem. They also recommended to get general surgery for possible amputation and to start Eliquis 2.5 mg twice daily after the patient has surgery. Will consult general surgery for possible amputation. 03/31/2025: Patient seen and examined at bedside, labs and vitals reviewed. Patient received dialysis yesterday, patient is being evaluated by general surgery for possible amputation. Otherwise has no current complaints, reports no new concerns. 04/01/2025: Patient upgraded to ICU earlier this morning, patient had seizure-like episode. Patient was given Ativan 1 mg x 1. Patient later had another rapid response called with heart rate in 140s and SpO2 in low 80s, patient was very lethargic MAP was found to be in the range of 55-64. Patient eventually upgraded to ICU for IV pressors, patient started on phenylephrine in ICU. Patient will receive dialysis today, scheduled for BKA by surgery later today. 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 Patient does have significant right hand pain due to digital necrosis, is on Dilaudid for pain management. Drier Take Off Tender team will obtain punch biopsy today of the skin for further analysis. Exam Vital Signs Temp Pulse Resp BP Pulse Ox O2 Del Method O2 Flow Rate 98.1 F 74 14 109/45 L 100 Nasal Cannula 2 04/02/25 23:00 04/03/25 07:05 04/03/25 07:05 04/02/25 23:00 04/03/25 06:15 04/02/25 16:00 04/02/25 18:06 FiO2 50 04/03/25 02:30 Narrative Exam Gen: Well-developed male. HEENT: NCAT, PERRLA, EOMI, MMM, anicteric conjunctivae. CVS: normal S1 and S2. RRR. No M/R/G. Resp: CTA B/L. No rhonchi, rales, crackles or wheezing. Abd: soft, non-tender, non-distended. BS+ in all 4 quadrants. MSK: S/p right BKA, stump appears necrotic, right thigh has blister. 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 Dry gangrene over right 2nd and 3rd digits. Tip of left second digit appears necrotic. Neuro: CN II-XII grossly intact. Alert and oriented x3. Psych: appropriate mood and affect. Objective Labs 04/05/25 05:42 04/05/25 05:42 Labs: Laboratory Results - last 24 hr 04/02/25 04/02/25 04/03/25 15:51 18:05 00:25 WBC RBC Hgb Hct MCV MCH MCHC RDW Std Deviation Plt Count Neut % (Auto) Lymph % (Auto) [place] % (Auto) Eos % (Auto) Baso % (Auto) Neut # (Auto) Lymph # (Auto) [place] # (Auto) Eos # (Auto) Baso # (Auto) Immature Gran # (Auto) Absolute Nucleated RBC Immature Gran % Nucleated RBC % Puncture Site ABG pH ABG pCO2 ABG pO2 ABG HCO3 ABG O2 Saturation ABG Base Excess FiO2 Sodium 135 L 132 L 134 L Potassium 4.2 D 3.8 3.6 Chloride 101 98 102 Carbon Dioxide 26.5 26.3 28.3 Anion Gap 8 8 4 L BUN 34 H 28 H 24 H Creatinine 3.5 H D 3.0 H D 2.6 H Estim Creat Clear Calc 33.4 L 38.9 L 44.9 L eGFR 20 L 24 L 29 L BUN/Creatinine Ratio 10 L 9 L 9 L Glucose 149 H 143 H 143 H Calculated Osmolality 280 272 L 274 L Lactic Acid 1.0 1.2 1.5 Calcium 7.7 L 8.3 7.7 L Corrected Calcium 8.5 8.9 8.6 Phosphorus Magnesium Total Bilirubin 0.4 0.4 0.4 AST < 10 11 < 10 ALT 28 29 27 Alkaline Phosphatase 89 90 85 Total Protein 5.8 6.2 5.6 L Albumin 3.0 L 3.2 L 2.9 L Globulin 2.8 3.0 2.7 Albumin/Globulin Ratio 1.1 L 1.1 L 1.1 L 04/03/25 04/03/25 04:47 05:17 WBC 5.9 D RBC 2.34 L Hgb 7.1 L Hct 23.2 L MCV 99 MCH 30.3 MCHC 30.6 L RDW Std Deviation 64.2 H Plt Count 128 L D Neut % (Auto) 81 H Lymph % (Auto) 8 L [place] % (Auto) 9 Eos % (Auto) 0 Baso % (Auto) 0 Neut # (Auto) 4.8 Lymph # (Auto) 0.5 L [place] # (Auto) 0.5 Eos # (Auto) 0.0 Baso # (Auto) 0.0 Immature Gran # (Auto) 0.05 H Absolute Nucleated RBC 0.00 Immature Gran % 1 H Nucleated RBC % 0 Puncture Site Arterial Line ABG pH 7.31 L ABG pCO2 56 H ABG pO2 123 H D ABG HCO3 28 H ABG O2 Saturation 100 H ABG Base Excess 2 FiO2 21 Sodium 136 Potassium 3.7 Chloride 100 Carbon Dioxide 28.2 Anion Gap 8 BUN 26 H Creatinine 2.8 H Estim Creat Clear Calc 41.4 L eGFR 26 L BUN/Creatinine Ratio 9 L Glucose 134 H Calculated Osmolality 278 Lactic Acid Calcium 7.8 L Corrected Calcium 8.5 Phosphorus 4.2 Magnesium 1.9 Total Bilirubin 0.4 AST 11 ALT 27 Alkaline Phosphatase 92 Total Protein 6.0 Albumin 3.1 L Globulin 2.9 Albumin/Globulin Ratio 1.1 L ABG Interpretation ABG results: 03/14/25 03/14/25 03/14/25 14:44 16:44 18:53 ABG pH 7.03 L* 7.04 L* 7.10 L* ABG pCO2 43 50 H 46 ABG pO2 86 128 H D 57 L* D ABG HCO3 11 L 13 L 14 L ABG O2 Saturation 91 97 78 L ABG Base Excess -19 L -17 L -15 L VBG pH VBG pCO2 VBG pO2 VBG Base Excess 03/14/25 03/15/25 03/15/25 21:20 05:07 12:28 ABG pH 7.21 L D 7.41 D ABG pCO2 32 D 31 L ABG pO2 116 H D 74 L D ABG HCO3 13 L 20 ABG O2 Saturation 97 95 ABG Base Excess -14 L -4 L VBG pH 7.43 VBG pCO2 34 L VBG pO2 37 VBG Base Excess -1 03/16/25 03/16/25 03/16/25 04:51 11:48 19:30 ABG pH 7.46 H 7.22 L D 7.38 D ABG pCO2 29 L 66 H D 48 D ABG pO2 78 L 79 L 236 H D ABG HCO3 21 27 H 29 H ABG O2 Saturation 96 91 100 H ABG Base Excess -2 -2 3 VBG pH VBG pCO2 VBG pO2 VBG Base Excess 03/17/25 03/18/25 03/19/25 04:53 09:27 04:46 ABG pH 7.38 7.35 ABG pCO2 49 H 48 ABG pO2 78 L D 92 ABG HCO3 29 H 26 ABG O2 Saturation 95 98 ABG Base Excess 3 0 VBG pH 7.34 VBG pCO2 54 D VBG pO2 34 VBG Base Excess 2 03/24/25 04/01/25 04/01/25 22:00 04:53 15:50 ABG pH 7.33 L 7.23 L ABG pCO2 48 62 H ABG pO2 233 H 102 ABG HCO3 25 26 ABG O2 Saturation 101 H 98 ABG Base Excess -1 -2 VBG pH 7.24 L VBG pCO2 57 H VBG pO2 51 VBG Base Excess -3 04/01/25 04/02/25 04/03/25 18:40 04:45 05:17 ABG pH 7.24 L 7.24 L 7.31 L ABG pCO2 61 H 59 H 56 H ABG pO2 207 H D 203 H 123 H D ABG HCO3 26 25 28 H ABG O2 Saturation 101 H 101 H 100 H ABG Base Excess -2 -3 2 VBG pH VBG pCO2 VBG pO2 VBG Base Excess Quality Measures Quality Measures VTE prophylaxis Assessment & Plan Assessment Current Active Medications: Generic Name Dose Route Start Last Admin Trade Name Freq PRN Reason Stop Dose Admin Acetaminophen 650 mg 03/20/25 11:35 03/21/25 06:39 Acetaminophen 325 Mg Tablet PO 04/19/25 11:34 650 mg Q6HR PRN Administration pain and Fever >100.4 Protocol Dextrose 25 ml 04/01/25 04:32 Dextrose 50%-Water Inj 50 Ml Syringe IV 05/01/25 04:31 Q15MIN PRN BG 50-70 responsive npo pt Dextrose 50 ml 04/01/25 04:32 04/01/25 05:21 Dextrose 50%-Water Inj 50 Ml Syringe IV 05/01/25 04:31 50 ml Q15MIN PRN Administration BG <50 OR BG <70 & pt unresponsive Diltiazem HCl 120 mg 03/30/25 09:00 04/01/25 10:20 Diltiazem Cd 120 Mg Capcr PO 04/29/25 08:59 Not Given QDAY MONTSERRAT Glucagon 1 mg 04/01/25 04:32 Glucagon Inj 1 Mg Vial IM Q15MIN PRN BG <70, and no IV access Heparin Sodium (Porcine) 5,000 unit 03/23/25 21:00 04/02/25 21:05 Heparin Sod Inj 5000 Unit/Ml Vial SC 04/06/25 20:59 5,000 unit Q12HR MONTSERRAT Administration Heparin Sodium (Porcine) 3,800 unit 03/30/25 08:26 04/02/25 22:47 Heparin Sod Inj 1000 Unit/Ml Vial 10 Ml INDWELLCAT 04/13/25 08:25 3,800 unit PRN PRN Administration DIALYSIS Hydromorphone HCl 0.5 mg 04/03/25 08:13 Hydromorphone Inj 2 Mg/Ml Vial IVP 04/08/25 07:59 Q2HR PRN pain 5-10 Albumin Human 25 gm in 100 mls @ 100 mls/hr 04/01/25 07:37 04/02/25 09:00 Albuminar-25 Ivpb IV Infused PRN PRN Infusion DIALYSIS Phenylephrine HCl 40 mg/ 100 mls @ 1.728 mls/hr 04/01/25 08:48 04/02/25 08:46 Sodium Chloride IV 05/01/25 08:47 0 mcg/kg/min .Q24H PRN 0 mls/hr Per Cardiogenic Protocol Titration Protocol 0.1 MCG/KG/MIN Daptomycin 500 mg/ Sodium 60 mls @ 120 mls/hr 04/01/25 15:00 04/02/25 09:00 Chloride 10 ml/ Sodium IV 04/08/25 14:59 Infused Chloride QOD@1500 MONTSERRAT Infusion Protocol Vasopressin/Sodium Chloride 20 unit in 100 mls @ 9 mls/hr 04/01/25 14:00 Vasostrict/Ns Ivpb IV 05/01/25 13:59 .Q11H7M PRN PER PROTOCOL Protocol 0.03 UNIT/MIN Piperacillin Sod/Tazobactam 100 mls @ 200 mls/hr 04/02/25 15:29 04/02/25 18:45 Sod 4.5 gm/ Sodium Chloride IV 04/09/25 15:28 Infused Q12HR MONTSERRAT Infusion Insulin Human Lispro 0 unit 04/02/25 17:00 04/03/25 08:07 Insulin Lispro (Admelog) 1 Unit/0.01 Ml Unit SC 05/02/25 16:59 Not Given ACHS MONTSERRAT Protocol Levalbuterol HCl 0.31 mg 03/28/25 10:24 03/31/25 00:37 Levalbuterol Rt 0.31 Mg/3 Ml Nebu INH 04/19/25 12:14 0.31 mg Q6HRRT PRN Administration Wheezing Lorazepam 1 mg 04/01/25 08:11 Lorazepam 2 Mg/Ml Vial IVP Q5MIN PRN seizure Metoprolol Tartrate 2.5 mg 04/01/25 08:30 Metoprolol Tartrate Inj 1 Mg/Ml Amp 5 Ml IVP Q5MIN PRN TACHYCARDIA HR >120 Midodrine 10 mg 03/19/25 18:19 Midodrine 5 Mg Tablet GT 04/18/25 21:59 TID PRN MAP below 65 Ondansetron HCl 4 mg 03/14/25 17:31 03/30/25 01:39 Ondansetron Inj 2 Mg/Ml Inj 2 Ml IV 04/13/25 17:30 4 mg Q6H PRN Administration NAUSEA OR VOMITING Protocol Pantoprazole Sodium 40 mg 03/31/25 09:00 04/02/25 09:08 Pantoprazole Inj 40 Mg Vial IVP 04/30/25 08:59 40 mg QDAY MONTSERRAT Administration Polyethylene Glycol 17 gm 03/26/25 18:00 04/02/25 08:20 Polyethylene Glycol 17 Gm Packet PO 04/25/25 17:59 Not Given QDAY MONTSERRAT Pregabalin 50 mg 04/01/25 09:00 04/01/25 10:22 Pregabalin 25 Mg Capsule PO 05/01/25 08:59 Not Given BID MONTSERRAT Sennosides 1 tab 03/26/25 18:00 04/02/25 08:20 Senna Tablet PO 04/25/25 17:59 Not Given QDAY MONTSERRAT Protocol Sodium Chloride 3 ml 03/31/25 06:26 Sodium Cl Rt Marjorie 3% 4 Ml Nebu (Non-Formulary) INH 04/16/25 18:59 Q6HRRT PRN To induce cough Plan Assessment and Plan: Summary: Mr. Mcclain is a 49 years old male with PMH of DM2, hypertension, ESRD (HD ), HFpEF (EF 55% on 2021), and right BKA due to osteomyelitis BIBA to the ED due to AMS, was intubated and started on pressors and was admitted to the ICU on 03/14/2025 for management of shock of unknown etiology and was started on IV antibiotics. On 03/17 his sputum culture grew stenotrophomonas maltophilia and antibiotics were changed to levofloxacin. He was extubated and downgraded to telemetry on 03/20/2025 for continuation of care. # End-stage renal disease Patient received CRRT in intensive care unit, was transition to hemodialysis. Patient will need a line holiday and placement of due to underlying bacteremia. Primary team to hold aspirin and Plavix, catheter will be exchanged in a.m. possibly Patient received permanent tunneled dialysis catheter placement on 03/26/2025. 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 - Renally dose medications. #Staph Hemolyticus bacteremia #CLABSI Patient tested for gram-positive cocci (staph hymolyticus ) 2/ blood blood cultures on 03/21/2025 -Mx as per primrary team #Acute blood loss Anemia #Hematemesis. #Macrocytic anemia. #Thrombocytopenia. Hemoglobin 7.9, RBC 2.48, hematocrit 25%, MCV 101, platelets 131 today - Management as per primary team #HFrEF (EF 50-55% on 2024) #A-fib with RVR, rate controlled, MAT, SVT #Troponinemia - resolved Patient had improved ejection fraction compared to the echocardiogram from a week ago, cardiology is consulted. - Management as per primary team and cardiology #Possible acute vs chronic limb ischemia. #Peripheral Vascular disease, severe Patient has severe vascular disease, case was discussed by ICU team with a vascular surgeon at [facility] Patient is poor candidate for surgery per documentation Patient was evaluated by acid recovery operator had cardiac catheterization and upper and lower extremity angiogram done. Per cardiology patient has disease in right lower limb, otherwise no significant PAD noted. Cardiology recommends amputation by general surgery orthopedics consulted as well #Acute hypoxic respiratory failure, improved. #Stenotrophomonas maltophilia pneumonia. #Respiratory acidosis, resolved. #Septic shock, resolved. - Management as per primary team #Transaminitis. #Hyperbilirubinemia #Hepatomegaly. #Hx of DM2. #Hypoglycemia, resolved. -Management per primary team Case discussed with Attending Dr. Pleitez. Marycarmen Clark PGY1 Disclaimer: This note was dictated by speech recognition. Minor errors in screen tender may be present due to voice recognition software. Attending Provider Attestation/Addendum Pt is seen and examined. Labs and investigations are reviewed. Agree witth assessment and plan by resident. agree with findings. Héctor Pleitez MD
[2025-04-03] MEDS: PANTOPRAZOLE INJ 40 MG VIAL IVP (10:03)
[2025-04-03] MEDS: SENNA TABLET 1 TAB PO (10:03)
[2025-04-03] MEDS: POLYETHYLENE GLYCOL 17 GM PACKET PO (10:03)
[2025-04-03] MEDS: PIPER/TAZO INJ 4.5 GM in SODIUM CHLORIDE 0.9% (POP) 100 ML IV ×2 (10:03→21:08)
[2025-04-03] MEDS: HEPARIN SOD INJ 5000 UNIT/ML VIAL SC (10:05)
--- NOTE | 2025-04-03 11:22 | PD.RESPRO ---
Documentation for date of: 04/03/25 Subjective Subjective Interval history: No acute overnight events. Continued on nasal cannula, satting well. Had HD yesterday, tolerated well, labs stable. Completed AMIO bag, off pressors now, BP 135/70 HR 74. Cardiac catheterization as well as bilateral lower extremity angiograms did not show any significant disease. Would recommend to continue conservative medical management for now for the patient Prefer ELIQUIS when able, but may start ASA when able. Exam Vital Signs Temp Pulse Resp BP Pulse Ox O2 Del Method O2 Flow Rate 98.6 F 78 12 109/45 L 100 Nasal Cannula 3 04/03/25 08:00 04/03/25 10:32 04/03/25 10:32 04/02/25 23:00 04/03/25 10:32 04/03/25 08:00 04/03/25 10:32 FiO2 50 04/03/25 02:30 Narrative Exam Gen: Well-developed male. HEENT: NCAT, PERRLA, EOMI, MMM, anicteric conjunctivae. CVS: normal S1 and S2. RRR. No M/R/G. Resp: CTA B/L. No rhonchi, rales, crackles or wheezing. Abd: soft, non-tender, non-distended. BS+ in all 4 quadrants. MSK: S/p right BKA, stump appears necrotic, right thigh has blister. 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 Dry gangrene over right 2nd and 3rd digits. Tip of left second digit appears necrotic. Neuro: CN II-XII grossly intact. Alert and oriented x3. Psych: appropriate mood and affect. Objective Labs 04/05/25 05:42 04/05/25 05:42 Labs: Laboratory Results - last 24 hr 04/02/25 04/02/25 04/03/25 15:51 18:05 00:25 WBC RBC Hgb Hct MCV MCH MCHC RDW Std Deviation Plt Count Neut % (Auto) Lymph % (Auto) Addison % (Auto) Eos % (Auto) Baso % (Auto) Neut # (Auto) Lymph # (Auto) Addison # (Auto) Eos # (Auto) Baso # (Auto) Immature Gran # (Auto) Absolute Nucleated RBC Immature Gran % Nucleated RBC % Puncture Site ABG pH ABG pCO2 ABG pO2 ABG HCO3 ABG O2 Saturation ABG Base Excess FiO2 Sodium 135 L 132 L 134 L Potassium 4.2 D 3.8 3.6 Chloride 101 98 102 Carbon Dioxide 26.5 26.3 28.3 Anion Gap 8 8 4 L BUN 34 H 28 H 24 H Creatinine 3.5 H D 3.0 H D 2.6 H Estim Creat Clear Calc 33.4 L 38.9 L 44.9 L eGFR 20 L 24 L 29 L BUN/Creatinine Ratio 10 L 9 L 9 L Glucose 149 H 143 H 143 H Calculated Osmolality 280 272 L 274 L Lactic Acid 1.0 1.2 1.5 Calcium 7.7 L 8.3 7.7 L Corrected Calcium 8.5 8.9 8.6 Phosphorus Magnesium Total Bilirubin 0.4 0.4 0.4 AST < 10 11 < 10 ALT 28 29 27 Alkaline Phosphatase 89 90 85 Total Protein 5.8 6.2 5.6 L Albumin 3.0 L 3.2 L 2.9 L Globulin 2.8 3.0 2.7 Albumin/Globulin Ratio 1.1 L 1.1 L 1.1 L 04/03/25 04/03/25 04:47 05:17 WBC 5.9 D RBC 2.34 L Hgb 7.1 L Hct 23.2 L MCV 99 MCH 30.3 MCHC 30.6 L RDW Std Deviation 64.2 H Plt Count 128 L D Neut % (Auto) 81 H Lymph % (Auto) 8 L Addison % (Auto) 9 Eos % (Auto) 0 Baso % (Auto) 0 Neut # (Auto) 4.8 Lymph # (Auto) 0.5 L Addison # (Auto) 0.5 Eos # (Auto) 0.0 Baso # (Auto) 0.0 Immature Gran # (Auto) 0.05 H Absolute Nucleated RBC 0.00 Immature Gran % 1 H Nucleated RBC % 0 Puncture Site Arterial Line ABG pH 7.31 L ABG pCO2 56 H ABG pO2 123 H D ABG HCO3 28 H ABG O2 Saturation 100 H ABG Base Excess 2 FiO2 21 Sodium 136 Potassium 3.7 Chloride 100 Carbon Dioxide 28.2 Anion Gap 8 BUN 26 H Creatinine 2.8 H Estim Creat Clear Calc 41.4 L eGFR 26 L BUN/Creatinine Ratio 9 L Glucose 134 H Calculated Osmolality 278 Lactic Acid Calcium 7.8 L Corrected Calcium 8.5 Phosphorus 4.2 Magnesium 1.9 Total Bilirubin 0.4 AST 11 ALT 27 Alkaline Phosphatase 92 Total Protein 6.0 Albumin 3.1 L Globulin 2.9 Albumin/Globulin Ratio 1.1 L ABG Interpretation ABG results: 03/14/25 03/14/25 03/14/25 14:44 16:44 18:53 ABG pH 7.03 L* 7.04 L* 7.10 L* ABG pCO2 43 50 H 46 ABG pO2 86 128 H D 57 L* D ABG HCO3 11 L 13 L 14 L ABG O2 Saturation 91 97 78 L ABG Base Excess -19 L -17 L -15 L VBG pH VBG pCO2 VBG pO2 VBG Base Excess 03/14/25 03/15/25 03/15/25 21:20 05:07 12:28 ABG pH 7.21 L D 7.41 D ABG pCO2 32 D 31 L ABG pO2 116 H D 74 L D ABG HCO3 13 L 20 ABG O2 Saturation 97 95 ABG Base Excess -14 L -4 L VBG pH 7.43 VBG pCO2 34 L VBG pO2 37 VBG Base Excess -1 03/16/25 03/16/25 03/16/25 04:51 11:48 19:30 ABG pH 7.46 H 7.22 L D 7.38 D ABG pCO2 29 L 66 H D 48 D ABG pO2 78 L 79 L 236 H D ABG HCO3 21 27 H 29 H ABG O2 Saturation 96 91 100 H ABG Base Excess -2 -2 3 VBG pH VBG pCO2 VBG pO2 VBG Base Excess 03/17/25 03/18/25 03/19/25 04:53 09:27 04:46 ABG pH 7.38 7.35 ABG pCO2 49 H 48 ABG pO2 78 L D 92 ABG HCO3 29 H 26 ABG O2 Saturation 95 98 ABG Base Excess 3 0 VBG pH 7.34 VBG pCO2 54 D VBG pO2 34 VBG Base Excess 2 03/24/25 04/01/25 04/01/25 22:00 04:53 15:50 ABG pH 7.33 L 7.23 L ABG pCO2 48 62 H ABG pO2 233 H 102 ABG HCO3 25 26 ABG O2 Saturation 101 H 98 ABG Base Excess -1 -2 VBG pH 7.24 L VBG pCO2 57 H VBG pO2 51 VBG Base Excess -3 04/01/25 04/02/25 04/03/25 18:40 04:45 05:17 ABG pH 7.24 L 7.24 L 7.31 L ABG pCO2 61 H 59 H 56 H ABG pO2 207 H D 203 H 123 H D ABG HCO3 26 25 28 H ABG O2 Saturation 101 H 101 H 100 H ABG Base Excess -2 -3 2 VBG pH VBG pCO2 VBG pO2 VBG Base Excess Quality Measures Quality Measures VTE prophylaxis Assessment & Plan Assessment Current Active Medications: Generic Name Dose Route Start Last Admin Trade Name Freq PRN Reason Stop Dose Admin Acetaminophen 650 mg 03/20/25 11:35 03/21/25 06:39 Acetaminophen 325 Mg Tablet PO 04/19/25 11:34 650 mg Q6HR PRN Administration pain and Fever >100.4 Protocol Dextrose 25 ml 04/01/25 04:32 Dextrose 50%-Water Inj 50 Ml Syringe IV 05/01/25 04:31 Q15MIN PRN BG 50-70 responsive npo pt Dextrose 50 ml 04/01/25 04:32 04/01/25 05:21 Dextrose 50%-Water Inj 50 Ml Syringe IV 05/01/25 04:31 50 ml Q15MIN PRN Administration BG <50 OR BG <70 & pt unresponsive Diltiazem HCl 120 mg 03/30/25 09:00 04/01/25 10:20 Diltiazem Cd 120 Mg Capcr PO 04/29/25 08:59 Not Given QDAY MONTSERRAT Glucagon 1 mg 04/01/25 04:32 Glucagon Inj 1 Mg Vial IM Q15MIN PRN BG <70, and no IV access Heparin Sodium (Porcine) 5,000 unit 03/23/25 21:00 04/03/25 10:05 Heparin Sod Inj 5000 Unit/Ml Vial SC 04/06/25 20:59 5,000 unit Q12HR MONTSERRAT Administration Heparin Sodium (Porcine) 3,800 unit 03/30/25 08:26 04/02/25 22:47 Heparin Sod Inj 1000 Unit/Ml Vial 10 Ml INDWELLCAT 04/13/25 08:25 3,800 unit PRN PRN Administration DIALYSIS Hydromorphone HCl 0.5 mg 04/03/25 08:13 04/03/25 09:54 Hydromorphone Inj 2 Mg/Ml Vial IVP 04/08/25 07:59 0.5 mg Q2HR PRN Administration pain 5-10 Albumin Human 25 gm in 100 mls @ 100 mls/hr 04/01/25 07:37 04/02/25 09:00 Albuminar-25 Ivpb IV Infused PRN PRN Infusion DIALYSIS Phenylephrine HCl 40 mg/ 100 mls @ 1.728 mls/hr 04/01/25 08:48 04/02/25 08:46 Sodium Chloride IV 05/01/25 08:47 0 mcg/kg/min .Q24H PRN 0 mls/hr Per Cardiogenic Protocol Titration Protocol 0.1 MCG/KG/MIN Daptomycin 500 mg/ Sodium 60 mls @ 120 mls/hr 04/01/25 15:00 04/02/25 09:00 Chloride 10 ml/ Sodium IV 04/08/25 14:59 Infused Chloride QOD@1500 MONTSERRAT Infusion Protocol Vasopressin/Sodium Chloride 20 unit in 100 mls @ 9 mls/hr 04/01/25 14:00 Vasostrict/Ns Ivpb IV 05/01/25 13:59 .Q11H7M PRN PER PROTOCOL Protocol 0.03 UNIT/MIN Piperacillin Sod/Tazobactam 100 mls @ 200 mls/hr 04/02/25 15:29 04/03/25 10:03 Sod 4.5 gm/ Sodium Chloride IV 04/09/25 15:28 200 mls/hr Q12HR MON[place]ERRAT Administration Insulin Human Lispro 0 unit 04/02/25 17:00 04/03/25 08:07 Insulin Lispro (Admelog) 1 Unit/0.01 Ml Unit SC 05/02/25 16:59 Not Given ACHS MONTSERRAT Protocol Levalbuterol HCl 0.31 mg 03/28/25 10:24 03/31/25 00:37 Levalbuterol Rt 0.31 Mg/3 Ml Nebu INH 04/19/25 12:14 0.31 mg Q6HRRT PRN Administration Wheezing Lorazepam 1 mg 04/01/25 08:11 Lorazepam 2 Mg/Ml Vial IVP Q5MIN PRN seizure Metoprolol Tartrate 2.5 mg 04/01/25 08:30 Metoprolol Tartrate Inj 1 Mg/Ml Amp 5 Ml IVP Q5MIN PRN TACHYCARDIA HR >120 Midodrine 10 mg 03/19/25 18:19 Midodrine 5 Mg Tablet GT 04/18/25 21:59 TID PRN MAP below 65 Ondansetron HCl 4 mg 03/14/25 17:31 03/30/25 01:39 Ondansetron Inj 2 Mg/Ml Inj 2 Ml IV 04/13/25 17:30 4 mg Q6H PRN Administration NAUSEA OR VOMITING Protocol Pantoprazole Sodium 40 mg 03/31/25 09:00 04/03/25 10:03 Pantoprazole Inj 40 Mg Vial IVP 04/30/25 08:59 40 mg QDAY MON[place]ERRAT Administration Polyethylene Glycol 17 gm 03/26/25 18:00 04/03/25 10:03 Polyethylene Glycol 17 Gm Packet PO 04/25/25 17:59 17 gm QDAY MONTS[place] Administration Pregabalin 50 mg 04/01/25 09:00 04/01/25 10:22 Pregabalin 25 Mg Capsule PO 05/01/25 08:59 Not Given BID MONTSERRAT Sennosides 1 tab 03/26/25 18:00 04/03/25 10:03 Senna Tablet PO 04/25/25 17:59 1 tab QDAY MONTSERRAT Administration Protocol Sodium Chloride 3 ml 03/31/25 06:26 Sodium Cl Rt Marjorie 3% 4 Ml Nebu (Non-Formulary) INH 04/16/25 18:59 Q6HRRT PRN To induce cough Plan 49-year-old male with past medical history of DM2, hypertension, ESRD (HD ), HFpEF (EF 55% on 2021), and right BKA due to osteomyelitis was initially admitted to the ICU on 03/14/2025 for acute hypoxic respiratory failure, acute encephalopathy, and shock. He was subsequently extubated and downgraded to telemetry on 03/20/2025 for continuation of care. #Septic shock. #Left foot gangrene, s/p BKA. Likely due to infection and gangrene in left foot, was amputated today by general surgery. WBC today 12.8. Initially started on phenylephrine and vasopressin but now only on phenylephrine 0.5/mcg/kg/min. He also was given 2 units pRBC transfusion due to borderline anemia and upcoming surgery, last hemoglobin post transfusion 8.3. Plan: - continue on pressor support to maintain MAP > 65. - continue daptomycin and vancomycin IV. - midodrine on hold. #Status post acute non-ST segment elevation myocardial infarction, NSTEMI possible type 2 troponin versus NSTEMI. #SVT episodes. #Afib, rate controlled. #Decompensated HFpEF (EF 45-50%). Patient s/p intubation and pressor support in ICU for shock, distributive secondary to sepsis versus cardiogenic. Patient initially presented to ED in SVT and required shock x1. Troponin initially 1.856 uptrended to 7.899 peak. Patient was treated for pneumonia. Patient was able to wean off pressors, extubated, now downgraded to tele. CT LER showed diffuse stenosis on the arteries of the LLE, occlusions in almost all major arteries. Echo done on 03/16/2025 showed LV appears normal with EF 45-50%. Septal dyskinesis is seen, RV appears normal with RVSP 50 mmHg. Mildly dilated LA & RA Mild mitral regurgitation Mild-Moderate TR. 03/21, patient had 2 rapid response events for SVT in the 170-200s which self converted in minutes. 04/01 patient had 2 rapid response calls due to episodes of SVT, was started on amiodarone drip and subsequently underwent electrical cardioversion in ICU. Plan: - amiodarone drip and PO discontinued, recommended to resume PO amiodarone when possible. - Holding DILTIAZEM, MIDODRINE, and METOPROLOL given low MAP ? Off pressors, BP 135/70 - Maintain K >4.0 and Mag >2.0. - Continue dialysis per nephrology. #Extensive atherosclerotic cardiovascular disease with bilateral femoral artery occlusions and distal trifurcation disease with gangrenous changes, ruled out. #Vasopressor-induced vasoconstriction and gangrene of B/L fingers, sequelae. -Patient has history of right extremity BKA due to severe PAD. This admission after severe shock requiring pressor support patient subsequently developed ischemia of the right and left fingertips. Vascular surgeon stated that the patient is not a candidate at this time for revascularization, however stated that would discuss case with general surgeon. Likely upper extremity digits affected by vasopressor support in combination with severe PAD causing limb ischemia. Angiography showed Normal, nonobstructive epicardial coronary arteries. Mild left ventricular dysfunction, ejection fraction 50%. Right ulnarl artery totally vs. occluded with excellent flow from the radial artery. Left lower extremity angiogram showed widely patent SFA and trifurcation with distal dorsalis pedis 100% occlusion. Right lower extremity angiogram also showed no significant obstructive lesions until trifurcation( amputated BKA). Discontinued on aspirin, plavix and statin after angiography. Plan: 04/02/2025-patient is status post Gullitone amputation of the left distal leg on 04/01/2025. Postoperatively patient is doing well and is off any kind of pressors. Patient was on BiPAP which was weaned transition to nasal cannula. Patient on hemodialysis during my exam. Rest of the vitals and labs have been reviewed and appear to be stable. I reviewed the rest of the chart and patient necrosis of the disease and extremities is mostly secondary to his high vasopressor requirements initially when he was admitted. Cardiac catheterization as well as bilateral lower extremity angiograms did not show any significant disease. Would recommend to continue conservative medical management for now for the patient - start on Eliquis 2.5 mg BID when possible, obtain general surgery recommendation regarding post op anticoagulation. 04/03/2025 Completed AMIO bag, Off pressors, BP 135/70, HR 70s, afebrile. Hgb 7.1, PLT 128, no leukocytosis. CR 2.8 slightly up, BUN 8, EGFR 26. Electrolytes WNL. ABG showing pH 7.31, [id number], PO2 123, bicarb 28 Repeat 24-hour blood culture remains negative. ? May start ASPIRIN when able if cannot start ELIQUIS #Staph hemolyticus bacteremia. Patient tested for gram-positive cocci 2/2 blood cultures on 03/21/2025, first positive blood cultures this admission. Patient has not been febrile, however has had persistent leukocytosis. Patient subsequently getting all lines removed after receiving dialysis. -Repeat echo on 03/23- Aortic valve leaflets with sclerosis calcification thickening of the cusp but no stenosis. No evidence of vegetation detected. Mitral valve annular show mild calcification mitral leaflets with thickening regurgitations.Left atrium appears to be mildly dilated.Left ventricle is normal with evidence of mild anteroseptal hypokinesis with well-preserved ejection fraction of 50 to 55%. Right heart structures normal. Mild tricuspid regurgitation with no evidence of pulmonary hypertension normal PA pressures. Tricuspid and pulmonic valves appear normal no vegetations. Compared to the study a week ago no change except some improvement in LV function. Repeat blood cultures is negative. HD catheter was exchanged. Plan: -Continue vancomycin and daptomycin IV as per ID recs. Rest of conditions to continue current management per primary team: #Acute hypoxic respiratory failure. #Community-acquired pneumonia, Stenotrophomonas maltophilia. #ESRD (HD on /). #History of type 2 diabetes. #Respiratory acidosis, resolved. #HAGMA, resolved. #Lactic acidosis, resolved. #Hyperkalemia, resolved. #Shock liver, resolved. #Possible GI bleed. #Mac Management of rest of the medical conditions as per primary team and other consultants. Thank you for the consult and allowing me to participate in the care of the patient. Cardiology will continue to follow. Thank you for the opportunity to participate in the patient's care. Case was discussed with attending, Dr. Truong. Viet Mariano, DO PGYI Attending Provider Attestation/Addendum I have personally seen and examined the patient separately on the above date of service and discussed the plan of care with the resident. I reviewed the resident Dr. Viet Mariano consultation progress note and agree with the resident findings and plan in the note above and have also edited the documentation to reflect my findings and plan. Jude Truong M.D. Interventional Cardiology
--- NOTE | 2025-04-03 11:24 | ESPR_ITS ---
Documentation for date of: 04/03/25 Subjective Subjective Interval history: Patient is a 49 year old male with a past medical history of diabetes mellitus type 2, Hypertension, ESRD (/), HFpEF 50 to 55% w/ mild hypokinesis of anteroseptal wall (03/23/2025), Right BKA who was initially admitted on 03/14/2025 for shock requiring pressor on unknown etiology, suspected septic given lower limb ischemia. Patient previous downgraded on 03/20/2025 to floors team for further management. ICU team consulted on 04/01/2025 shock likely septic in nature requiring phenylenphrine. Rapid response called at 7:48 AM for possible seizure likel activity, patient received Ativan. MAP noted at the time of 70. Second rapid response called at 8:20 AM for HR of 140s, spo2 of 80s/70s appearing lethargic and MAP of 55-64. Given hymodynamic instability, decision was made by patient's cardiovert patient. Patient DNI/DRI but elected fro cardioversion and upgrade to ICU. Amiodarone drip started overnight and discontinued during rapid response this morning. Shortly after arrival to ICU patient was taken by general surgery for schedule left lower extremity BKA. 04/02- Patient's mentation continued to improve overnight. He was requesting to be taken off of BiPAP due to discomfort. Complaining of dry mouth significant right hand pain due to digital necrosis. Patient given Dilaudid on multiple occasions with adequate control. Placed on Tylenol for hemodialysis and optimization of multiple electrolyte abnormalities including volume removal. Patient able to be transition from BiPAP/AVAPS to nasal cannula comfortably. Patient able to pass swallow evaluation at bedside and a renal diet was initiated. Patient not accompanied by family at this point but able to give history himself. Patient's left lower extremity continues to be stable with no significant bleeding at the dressing site overnight. Left femoral A-line and CVC remain in place with no significant hematoma. 04/03: Pateint examined at bedside. Patient off phylenphrine and vasopressin. D/C arterial and central venous line. Overnight minimla urine output, but no supra- pubic tenderness. 04/01/2025, 600 UF removed and no fluid removed on 04/03/2025 during dialysis. Patient complaining of pain 10/10 secondary to right upper extremity digits. Tender to palpation. Dilaudid 0.5 mg IVP increased frequency to Q2HR. Continue to hold Diltiazem. Asprin 81 mg started today. Sevelamer, first dose 12 PM. Unable to obtain punch biopsy as there are no kits available today. Follow up with a punch biopsy on floors, obtain kit from [facility]. Continue antibiotics Dptomycin and Zosy, follow up with ID recommendations. Monitor hgb and hct. D/C right arterial femoral line and left central venous. Dialysis catheter in place on right IJV. Exam Vital Signs Temp Pulse Resp BP Pulse Ox O2 Del Method O2 Flow Rate 98.6 F 78 12 109/45 L 100 Nasal Cannula 3 04/03/25 08:00 04/03/25 10:32 04/03/25 10:32 04/02/25 23:00 04/03/25 10:32 04/03/25 08:00 04/03/25 10:32 FiO2 50 04/03/25 02:30 Narrative Exam General Appearance: Alert & Oriented X3, well-nourished male who is lying in bed with bilateral BKA. Right lower digits necrosis noted. HEENT: Skull symmetrical and atraumatic. Conjunctivae pale pink and moist. Pupils equal, round, reactive to light and accommodation (PERRL). External ear without lesion or discharge. Straight, nares patient, mucosa pink, no discharge. Cardio: Normal Rate and Rhythm with S1 and S2 heart sounds. No murmurs or extra heart sounds auscultated. No bruits on carotid auscultation. Lungs: Symmetric with good expansion. Chest and back non-tender. Breath sounds vesicular without crackles or rhonchi Abdomen: Non-tender, Non-distended, Normal Reactive Bowel Sounds, no supra-pubic tenderness Neuro: Nonfocal on gross neurological exam, sensation intact EXT: Right upper extremity with multiple digital necrosis/dry gangrene, left lower extremity with bandage intact no significant bleeding site. Right lower extremity stump appears to have no wound cultures distal scarring/discoloration suggesting hypoperfusion. Right groin with arterial & Left CVC placement with no significant hematoma or tenderness to palpation. Objective Labs 04/03/25 16:49 04/03/25 04:47 Labs: Laboratory Results - last 24 hr 04/02/25 04/02/25 04/03/25 15:51 18:05 00:25 WBC RBC Hgb Hct MCV MCH MCHC RDW Std Deviation Plt Count Neut % (Auto) Lymph % (Auto) [place] % (Auto) Eos % (Auto) Baso % (Auto) Neut # (Auto) Lymph # (Auto) [place] # (Auto) Eos # (Auto) Baso # (Auto) Immature Gran # (Auto) Absolute Nucleated RBC Immature Gran % Nucleated RBC % Puncture Site ABG pH ABG pCO2 ABG pO2 ABG HCO3 ABG O2 Saturation ABG Base Excess FiO2 Sodium 135 L 132 L 134 L Potassium 4.2 D 3.8 3.6 Chloride 101 98 102 Carbon Dioxide 26.5 26.3 28.3 Anion Gap 8 8 4 L BUN 34 H 28 H 24 H Creatinine 3.5 H D 3.0 H D 2.6 H Estim Creat Clear Calc 33.4 L 38.9 L 44.9 L eGFR 20 L 24 L 29 L BUN/Creatinine Ratio 10 L 9 L 9 L Glucose 149 H 143 H 143 H Calculated Osmolality 280 272 L 274 L Lactic Acid 1.0 1.2 1.5 Calcium 7.7 L 8.3 7.7 L Corrected Calcium 8.5 8.9 8.6 Phosphorus Magnesium Total Bilirubin 0.4 0.4 0.4 AST < 10 11 < 10 ALT 28 29 27 Alkaline Phosphatase 89 90 85 Total Protein 5.8 6.2 5.6 L Albumin 3.0 L 3.2 L 2.9 L Globulin 2.8 3.0 2.7 Albumin/Globulin Ratio 1.1 L 1.1 L 1.1 L 04/03/25 04/03/25 04:47 05:17 WBC 5.9 D RBC 2.34 L Hgb 7.1 L Hct 23.2 L MCV 99 MCH 30.3 MCHC 30.6 L RDW Std Deviation 64.2 H Plt Count 128 L D Neut % (Auto) 81 H Lymph % (Auto) 8 L [place] % (Auto) 9 Eos % (Auto) 0 Baso % (Auto) 0 Neut # (Auto) 4.8 Lymph # (Auto) 0.5 L [place] # (Auto) 0.5 Eos # (Auto) 0.0 Baso # (Auto) 0.0 Immature Gran # (Auto) 0.05 H Absolute Nucleated RBC 0.00 Immature Gran % 1 H Nucleated RBC % 0 Puncture Site Arterial Line ABG pH 7.31 L ABG pCO2 56 H ABG pO2 123 H D ABG HCO3 28 H ABG O2 Saturation 100 H ABG Base Excess 2 FiO2 21 Sodium 136 Potassium 3.7 Chloride 100 Carbon Dioxide 28.2 Anion Gap 8 BUN 26 H Creatinine 2.8 H Estim Creat Clear Calc 41.4 L eGFR 26 L BUN/Creatinine Ratio 9 L Glucose 134 H Calculated Osmolality 278 Lactic Acid Calcium 7.8 L Corrected Calcium 8.5 Phosphorus 4.2 Magnesium 1.9 Total Bilirubin 0.4 AST 11 ALT 27 Alkaline Phosphatase 92 Total Protein 6.0 Albumin 3.1 L Globulin 2.9 Albumin/Globulin Ratio 1.1 L ABG Interpretation ABG results: 03/14/25 03/14/25 03/14/25 14:44 16:44 18:53 ABG pH 7.03 L* 7.04 L* 7.10 L* ABG pCO2 43 50 H 46 ABG pO2 86 128 H D 57 L* D ABG HCO3 11 L 13 L 14 L ABG O2 Saturation 91 97 78 L ABG Base Excess -19 L -17 L -15 L VBG pH VBG pCO2 VBG pO2 VBG Base Excess 03/14/25 03/15/25 03/15/25 21:20 05:07 12:28 ABG pH 7.21 L D 7.41 D ABG pCO2 32 D 31 L ABG pO2 116 H D 74 L D ABG HCO3 13 L 20 ABG O2 Saturation 97 95 ABG Base Excess -14 L -4 L VBG pH 7.43 VBG pCO2 34 L VBG pO2 37 VBG Base Excess -1 03/16/25 03/16/25 03/16/25 04:51 11:48 19:30 ABG pH 7.46 H 7.22 L D 7.38 D ABG pCO2 29 L 66 H D 48 D ABG pO2 78 L 79 L 236 H D ABG HCO3 21 27 H 29 H ABG O2 Saturation 96 91 100 H ABG Base Excess -2 -2 3 VBG pH VBG pCO2 VBG pO2 VBG Base Excess 03/17/25 03/18/25 03/19/25 04:53 09:27 04:46 ABG pH 7.38 7.35 ABG pCO2 49 H 48 ABG pO2 78 L D 92 ABG HCO3 29 H 26 ABG O2 Saturation 95 98 ABG Base Excess 3 0 VBG pH 7.34 VBG pCO2 54 D VBG pO2 34 VBG Base Excess 2 03/24/25 04/01/25 04/01/25 22:00 04:53 15:50 ABG pH 7.33 L 7.23 L ABG pCO2 48 62 H ABG pO2 233 H 102 ABG HCO3 25 26 ABG O2 Saturation 101 H 98 ABG Base Excess -1 -2 VBG pH 7.24 L VBG pCO2 57 H VBG pO2 51 VBG Base Excess -3 04/01/25 04/02/25 04/03/25 18:40 04:45 05:17 ABG pH 7.24 L 7.24 L 7.31 L ABG pCO2 61 H 59 H 56 H ABG pO2 207 H D 203 H 123 H D ABG HCO3 26 25 28 H ABG O2 Saturation 101 H 101 H 100 H ABG Base Excess -2 -3 2 VBG pH VBG pCO2 VBG pO2 VBG Base Excess Quality Measures Quality Measures VTE prophylaxis Assessment & Plan Assessment Current Active Medications: Generic Name Dose Route Start Last Admin Trade Name Freq PRN Reason Stop Dose Admin Acetaminophen 650 mg 03/20/25 11:35 03/21/25 06:39 Acetaminophen 325 Mg Tablet PO 04/19/25 11:34 650 mg Q6HR PRN Administration pain and Fever >100.4 Protocol Dextrose 25 ml 04/01/25 04:32 Dextrose 50%-Water Inj 50 Ml Syringe IV 05/01/25 04:31 Q15MIN PRN BG 50-70 responsive npo pt Dextrose 50 ml 04/01/25 04:32 04/01/25 05:21 Dextrose 50%-Water Inj 50 Ml Syringe IV 05/01/25 04:31 50 ml Q15MIN PRN Administration BG <50 OR BG <70 & pt unresponsive Diltiazem HCl 120 mg 03/30/25 09:00 04/01/25 10:20 Diltiazem Cd 120 Mg Capcr PO 04/29/25 08:59 Not Given QDAY MONTSERRAT Glucagon 1 mg 04/01/25 04:32 Glucagon Inj 1 Mg Vial IM Q15MIN PRN BG <70, and no IV access Heparin Sodium (Porcine) 5,000 unit 03/23/25 21:00 04/03/25 10:05 Heparin Sod Inj 5000 Unit/Ml Vial SC 04/06/25 20:59 5,000 unit Q12HR MONTSERRAT Administration Heparin Sodium (Porcine) 3,800 unit 03/30/25 08:26 04/02/25 22:47 Heparin Sod Inj 1000 Unit/Ml Vial 10 Ml INDWELLCAT 04/13/25 08:25 3,800 unit PRN PRN Administration DIALYSIS Hydromorphone HCl 0.5 mg 04/03/25 08:13 04/03/25 09:54 Hydromorphone Inj 2 Mg/Ml Vial IVP 04/08/25 07:59 0.5 mg Q2HR PRN Administration pain 5-10 Albumin Human 25 gm in 100 mls @ 100 mls/hr 04/01/25 07:37 04/02/25 09:00 Albuminar-25 Ivpb IV Infused PRN PRN Infusion DIALYSIS Phenylephrine HCl 40 mg/ 100 mls @ 1.728 mls/hr 04/01/25 08:48 04/02/25 08:46 Sodium Chloride IV 05/01/25 08:47 0 mcg/kg/min .Q24H PRN 0 mls/hr Per Cardiogenic Protocol Titration Protocol 0.1 MCG/KG/MIN Daptomycin 500 mg/ Sodium 60 mls @ 120 mls/hr 04/01/25 15:00 04/02/25 09:00 Chloride 10 ml/ Sodium IV 04/08/25 14:59 Infused Chloride QOD@1500 MONTSERRAT Infusion Protocol Vasopressin/Sodium Chloride 20 unit in 100 mls @ 9 mls/hr 04/01/25 14:00 Vasostrict/Ns Ivpb IV 05/01/25 13:59 .Q11H7M PRN PER PROTOCOL Protocol 0.03 UNIT/MIN Piperacillin Sod/Tazobactam 100 mls @ 200 mls/hr 04/02/25 15:29 04/03/25 10:03 Sod 4.5 gm/ Sodium Chloride IV 04/09/25 15:28 200 mls/hr Q12HR MONTSERRAT Administration Insulin Human Lispro 0 unit 04/02/25 17:00 04/03/25 08:07 Insulin Lispro (Admelog) 1 Unit/0.01 Ml Unit SC 05/02/25 16:59 Not Given ACHS MONTSERRAT Protocol Levalbuterol HCl 0.31 mg 03/28/25 10:24 03/31/25 00:37 Levalbuterol Rt 0.31 Mg/3 Ml Nebu INH 04/19/25 12:14 0.31 mg Q6HRRT PRN Administration Wheezing Lorazepam 1 mg 04/01/25 08:11 Lorazepam 2 Mg/Ml Vial IVP Q5MIN PRN seizure Metoprolol Tartrate 2.5 mg 04/01/25 08:30 Metoprolol Tartrate Inj 1 Mg/Ml Amp 5 Ml IVP Q5MIN PRN TACHYCARDIA HR >120 Midodrine 10 mg 03/19/25 18:19 Midodrine 5 Mg Tablet GT 04/18/25 21:59 TID PRN MAP below 65 Ondansetron HCl 4 mg 03/14/25 17:31 03/30/25 01:39 Ondansetron Inj 2 Mg/Ml Inj 2 Ml IV 04/13/25 17:30 4 mg Q6H PRN Administration NAUSEA OR VOMITING Protocol Pantoprazole Sodium 40 mg 03/31/25 09:00 04/03/25 10:03 Pantoprazole Inj 40 Mg Vial IVP 04/30/25 08:59 40 mg QDAY MONTSERRAT Administration Polyethylene Glycol 17 gm 03/26/25 18:00 04/03/25 10:03 Polyethylene Glycol 17 Gm Packet PO 04/25/25 17:59 17 gm QDAY MONTSERRAT Administration Pregabalin 50 mg 04/01/25 09:00 04/01/25 10:22 Pregabalin 25 Mg Capsule PO 05/01/25 08:59 Not Given BID MONTSERRAT Sennosides 1 tab 03/26/25 18:00 04/03/25 10:03 Senna Tablet PO 04/25/25 17:59 1 tab QDAY MONTSERRAT Administration Protocol Sodium Chloride 3 ml 03/31/25 06:26 Sodium Cl Rt Marjorie 3% 4 Ml Nebu (Non-Formulary) INH 04/16/25 18:59 Q6HRRT PRN To induce cough Plan Patient is a 49 year old male with a past medical history of diabetes mellitus type 2, Hypertension, ESRD (), HFpEF 50 to 55% w/ mild hypokinesis of anteroseptal wall (03/23/2025), Right BKA who was initially admitted on 03/14/2025 for shock requiring pressor on unknown etiology, suspected septic given lower limb ischemia who was upgraded to ICU on 04/01/2025 secondary to shock requiring phenylephrine. 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 bedside echo shows adequate contractility with ? some LVH and some septal flattening on parasternal short view, no pericardial effusion no evidence of obstructive etiology noted and not felt to have large PE. contractility appears adequate at this time and not felt to have a current cardiogenic component. received minimal IVF on arrival and therefore given additional volume overnight. will need cheeta for further hemodynamics and ? distributive v hypovolemic in etiology. on broad spectrum abx for infectious etiology possibility Phenylephrine D/C. ? acute v chronic limb ischemia no role for anticoagulation after selective angiogram -Septic shock likely secondary to significant necrosis and infection on empiric antibiotics, POD#1 after left foot amputation SVT- had episode yesterday likely precipitated by infection tissue necrosis - Responded to electrical cardioversion -acute hypotension post cardioversion supported with phenylephrine which is now resolved -continue to hold patient's midodrine at this point, MAP >65 #Bradycardia, resolved. Bradycardia upon ICU arrival, likely in the setting of Amiodarone drip started overnight. Currently holding Amiodarone & Diltiazem after rapid response. #Sinus Tachycardia s/p cardioversion #SVT, resolved. #Hx of A-fib During hospital course, patient developed SVT and MAT with underlying history of Atrail Fibrilation requiring patient to be cardioverted. Most recently on 04/01/2025 at 3:05 Am patient once again developed Atrial fibrillation w/ RVR, Amiodarone drip started. 04/01/2025 at approximetly 8:00 AM patient required to be cardioverted given hyodynamic instability and possible SVT vs atrial flutter. [id number] score of 3 points indicating 3.2% risk of stroke per year HAS-BLED score of 5 points -Asprin 81 mg qday -Hold Amiodarone and Diltiazem as per cardiology recommendations. #Troponinemia Elevated troponin likely secondary to NSTEMI demand ischemia secondary to shock. Continue to trend troponin. EKG showed no ST elevation. Cardiology consulted, Dr. Villalobos, appreciate recommendaitons. #HFmrEF (EF 50-55% 02/2025) Previous echo on file from 03/16/2025 noted to have EF of 45-55% with repeat Echo on 03/23/2025 noted EF of 50 to 55%. lasix 20 mg PO X1 Daily weights Strict JENN's Resp #Acute Hypoxic resp failure-remains DNI as per his previous wishes, resolved #Left base pneumonia successfully weaned off of noninvasive positive pressure ventilation. Patient on NC saturating . Renal ESRD on HD Continues to have multiple electrolyte derangements and metabolic acidosis now improved after HD yesterday. Plan for continue this renal replacement therapy using Tablo, plan for slow HD for 12 hours with a goal of 1 L net removal. NO plan for dialysis this morning. D/C sodium bicarbonate. -Follow PTH an vitamin D levels -Sevelamer 800 mg PO TIDWM -Nephrology consulted, Dr. Pleitez, appreciate recommendations GI Hepatitis- baseline is nl, unclear etiology, viral panel negative may be 2/2 hypotension v hypoxia, check a RUQ abd us with doppler to eval for any poss thrombosis - LFTs trending down GI proph- PPI Endo Placed on SS insulin for diabetes, remains at goal less than 180 Heme Leukocytosis-reactive and secondary to infection of left leg lower extremity necrosis. Chest x-ray on 04/03/2025 noted to have a Noted for Left Pneumonia of base of retrocardiaic counter, continue with board spectrum antibiotic coverage. Anemia- likely secondary to anemia of chronic disease, continue to monitor hbg and hct and transfuse <7.0 Thrombocytopenia-normalized - no active bleeding noted given 2 units PRBC yesterday preoperatively with hemodialysis Continue to hold anticoagulation at this time apart from appropriate DVT prophylaxis with heparin ID Left lower extremity Gangrene/tissue necrosis. Status post left foot amputation Resolution of underlying septic shock and tachyarrhythmia likely secondary to this Continue on empiric antibiotics with daptomycin and Zosyn, adjust for renal function Pain control with Dilaudid 0.5 2HR in setting of renal failure Health Maintenance: Disp: Pt is currently admitted to floors for further management of septic shock secondary to left gangrene foot, plan to downgrade to floors, please do inpatient biopsy, and work towards resuming antiarrhythmics medication. FEN: Renal Diet DVT: on subQ heparin & Aspirin 81 mg QDay Lines: Right IJV dialysis catheter, left femoral arterial & right CVC (both d/c unpon downgrade) Code: DNR/DNI - The patient's plan was discussed with attending Dr. Keanu Solorzano MD PGY1 Internal Medicine Attending Provider Attestation/Addendum Patient seen and examined with the above resident, Saira Solorzano MD. I agree with the findings, assessment, and plan of care as documented except for any differences below. Patient with significant improvement in hemodynamics. Patient off pressors. Holding plan for HD today. Will remove central line/ arterial line. May require midodrine with HD. Continue on empiric antibiotics for wound/ necrotic skin. 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 Will need biopsy to determine this. This would coincide with adequate perfusion given angiography done on this admission. Will discuss with nephrology intermediate frame tender management, check PTH and Vitamin D for now. Sevelemer can be started for hyperphosphatemia as well. Poor prognosis otherwise with this. Pain control aggressively with dilaudid for now. Will loose additional digits of the right hand and distal index finger of left hand. Patient tearful when updated but aware of severity of illness. Stable from cardiac aspect now with no further arrhythmia and this was likely triggered by severe sepsis/ shock. Now resolved with adequate source control. Patient stable to transfer to telemetry for ongoing monitoring any management. Should remain on nocturnal Bipap despite clearance of acute encephalopathy. Needs OP testing for sleep apnea for home use of device. Patient remained at high risk for further mobdity and mortality warranting close monitoring and care in ICU. Patient required critical care services for septic shock, SVT, renal failure, acute encephalopathy- multifactorial.
[2025-04-03] MEDS: SEVELAMER CARBONATE 800 MG TABLET PO ×2 (12:14→17:38)
[2025-04-03] MEDS: ASPIRIN EC 81 MG TABEC PO (12:14)
--- NOTE | 2025-04-03 13:47 | ESPR_ITS ---
Documentation for date of: 04/03/25 Subjective Subjective Interval history: Received downgrade from ICU: In summary, patient is a 49-year-old male with past medical history significant for type 2 diabetes, hypertension, end-stage renal disease, HFpEF, hypokinesis of anteroseptal wall, right BKA who was admitted since 03/14/2025 for shock requiring vasopressor support most likely due to lower limb ischemia in the setting of sepsis. Patient was upgraded to ICU after being stable on floors on 04/01/2025 for septic shock requiring phenylephrine. Patient was cardioverted after heart rate was in the 140s, however patient has not required cardioversion since. Due to not achieving source control, patient was immediately scheduled for surgery for left BKA with general surgery. Surgery was performed with local anesthesia. Patient later was placed on BiPAP/AVAPS, and then transitioned comfortably to nasal cannula. Vasopressors were discontinued this morning, patient received hemodialysis as well today. Patient continues to complain of 10 out of 10 upper extremity digit pain. Will plan for punch biopsy for calciphylaxis and resuming antiarrhythmic meds when patient's blood pressure and heart rate tolerates. Will continue to monitor patient's pain and most likely can anticipate discharge in 48 hours. Exam Vital Signs Temp Pulse Resp BP Pulse Ox O2 Del Method O2 Flow Rate 97.8 F 78 16 134/69 H 100 Nasal Cannula 4 04/03/25 12:00 04/03/25 13:00 04/03/25 13:00 04/03/25 13:00 04/03/25 13:00 04/03/25 12:00 04/03/25 12:00 FiO2 50 04/03/25 02:30 Narrative Exam General Appearance: Pt in mild respiratory distress, well nourished, alert and oriented. Able to answer questions. On nasal cannula. HEENT: NC/AT, no scleral icterus, no conjunctival pallor, MMM Lungs: CTAB, no wheezes or crackles appreciated CVS: RRR, S1/S2 heard, no murmurs or rubs appreciated, no bruits on carotid auscultation ABD: Soft, non-tender, non-distended, BS + in all 4 quadrants EXT: Bilateral BKA, right lower digit necrosis, left lower extremity bandage intact with no bleeding noted. Right lower extremity stump discolored. SKIN: Skin exam normal without any rashes. Neuro: A&O x 3. No gross neurological deficits. Sensation intact. Psych: Appropriate mood and affect Objective Labs 04/04/25 04:28 04/04/25 04:28 Labs: Laboratory Results - last 24 hr 04/02/25 04/02/25 04/03/25 15:51 18:05 00:25 WBC RBC Hgb Hct MCV MCH MCHC RDW Std Deviation Plt Count Neut % (Auto) Lymph % (Auto) [place] % (Auto) Eos % (Auto) Baso % (Auto) Neut # (Auto) Lymph # (Auto) [place] # (Auto) Eos # (Auto) Baso # (Auto) Immature Gran # (Auto) Absolute Nucleated RBC Immature Gran % Nucleated RBC % Puncture Site ABG pH ABG pCO2 ABG pO2 ABG HCO3 ABG O2 Saturation ABG Base Excess FiO2 Sodium 135 L 132 L 134 L Potassium 4.2 D 3.8 3.6 Chloride 101 98 102 Carbon Dioxide 26.5 26.3 28.3 Anion Gap 8 8 4 L BUN 34 H 28 H 24 H Creatinine 3.5 H D 3.0 H D 2.6 H Estim Creat Clear Calc 33.4 L 38.9 L 44.9 L eGFR 20 L 24 L 29 L BUN/Creatinine Ratio 10 L 9 L 9 L Glucose 149 H 143 H 143 H Calculated Osmolality 280 272 L 274 L Lactic Acid 1.0 1.2 1.5 Calcium 7.7 L 8.3 7.7 L Corrected Calcium 8.5 8.9 8.6 Phosphorus Magnesium Total Bilirubin 0.4 0.4 0.4 AST < 10 11 < 10 ALT 28 29 27 Alkaline Phosphatase 89 90 85 Total Protein 5.8 6.2 5.6 L Albumin 3.0 L 3.2 L 2.9 L Globulin 2.8 3.0 2.7 Albumin/Globulin Ratio 1.1 L 1.1 L 1.1 L 04/03/25 04/03/25 04:47 05:17 WBC 5.9 D RBC 2.34 L Hgb 7.1 L Hct 23.2 L MCV 99 MCH 30.3 MCHC 30.6 L RDW Std Deviation 64.2 H Plt Count 128 L D Neut % (Auto) 81 H Lymph % (Auto) 8 L [place] % (Auto) 9 Eos % (Auto) 0 Baso % (Auto) 0 Neut # (Auto) 4.8 Lymph # (Auto) 0.5 L [place] # (Auto) 0.5 Eos # (Auto) 0.0 Baso # (Auto) 0.0 Immature Gran # (Auto) 0.05 H Absolute Nucleated RBC 0.00 Immature Gran % 1 H Nucleated RBC % 0 Puncture Site Arterial Line ABG pH 7.31 L ABG pCO2 56 H ABG pO2 123 H D ABG HCO3 28 H ABG O2 Saturation 100 H ABG Base Excess 2 FiO2 21 Sodium 136 Potassium 3.7 Chloride 100 Carbon Dioxide 28.2 Anion Gap 8 BUN 26 H Creatinine 2.8 H Estim Creat Clear Calc 41.4 L eGFR 26 L BUN/Creatinine Ratio 9 L Glucose 134 H Calculated Osmolality 278 Lactic Acid Calcium 7.8 L Corrected Calcium 8.5 Phosphorus 4.2 Magnesium 1.9 Total Bilirubin 0.4 AST 11 ALT 27 Alkaline Phosphatase 92 Total Protein 6.0 Albumin 3.1 L Globulin 2.9 Albumin/Globulin Ratio 1.1 L ABG Interpretation ABG results: 03/14/25 03/14/25 03/14/25 14:44 16:44 18:53 ABG pH 7.03 L* 7.04 L* 7.10 L* ABG pCO2 43 50 H 46 ABG pO2 86 128 H D 57 L* D ABG HCO3 11 L 13 L 14 L ABG O2 Saturation 91 97 78 L ABG Base Excess -19 L -17 L -15 L VBG pH VBG pCO2 VBG pO2 VBG Base Excess 03/14/25 03/15/25 03/15/25 21:20 05:07 12:28 ABG pH 7.21 L D 7.41 D ABG pCO2 32 D 31 L ABG pO2 116 H D 74 L D ABG HCO3 13 L 20 ABG O2 Saturation 97 95 ABG Base Excess -14 L -4 L VBG pH 7.43 VBG pCO2 34 L VBG pO2 37 VBG Base Excess -1 03/16/25 03/16/25 03/16/25 04:51 11:48 19:30 ABG pH 7.46 H 7.22 L D 7.38 D ABG pCO2 29 L 66 H D 48 D ABG pO2 78 L 79 L 236 H D ABG HCO3 21 27 H 29 H ABG O2 Saturation 96 91 100 H ABG Base Excess -2 -2 3 VBG pH VBG pCO2 VBG pO2 VBG Base Excess 03/17/25 03/18/25 03/19/25 04:53 09:27 04:46 ABG pH 7.38 7.35 ABG pCO2 49 H 48 ABG pO2 78 L D 92 ABG HCO3 29 H 26 ABG O2 Saturation 95 98 ABG Base Excess 3 0 VBG pH 7.34 VBG pCO2 54 D VBG pO2 34 VBG Base Excess 2 03/24/25 04/01/25 04/01/25 22:00 04:53 15:50 ABG pH 7.33 L 7.23 L ABG pCO2 48 62 H ABG pO2 233 H 102 ABG HCO3 25 26 ABG O2 Saturation 101 H 98 ABG Base Excess -1 -2 VBG pH 7.24 L VBG pCO2 57 H VBG pO2 51 VBG Base Excess -3 04/01/25 04/02/25 04/03/25 18:40 04:45 05:17 ABG pH 7.24 L 7.24 L 7.31 L ABG pCO2 61 H 59 H 56 H ABG pO2 207 H D 203 H 123 H D ABG HCO3 26 25 28 H ABG O2 Saturation 101 H 101 H 100 H ABG Base Excess -2 -3 2 VBG pH VBG pCO2 VBG pO2 VBG Base Excess Quality Measures Quality Measures VTE prophylaxis Assessment & Plan Assessment Current Active Medications: Generic Name Dose Route Start Last Admin Trade Name Freq PRN Reason Stop Dose Admin Acetaminophen 650 mg 03/20/25 11:35 03/21/25 06:39 Acetaminophen 325 Mg Tablet PO 04/19/25 11:34 650 mg Q6HR PRN Administration pain and Fever >100.4 Protocol Aspirin 81 mg 04/03/25 12:00 04/03/25 12:14 Aspirin Ec 81 Mg Tabec PO 05/03/25 11:59 81 mg QDAY MONTSERRAT Administration Dextrose 25 ml 04/01/25 04:32 Dextrose 50%-Water Inj 50 Ml Syringe IV 05/01/25 04:31 Q15MIN PRN BG 50-70 responsive npo pt Dextrose 50 ml 04/01/25 04:32 04/01/25 05:21 Dextrose 50%-Water Inj 50 Ml Syringe IV 05/01/25 04:31 50 ml Q15MIN PRN Administration BG <50 OR BG <70 & pt unresponsive Diltiazem HCl 120 mg 03/30/25 09:00 04/01/25 10:20 Diltiazem Cd 120 Mg Capcr PO 04/29/25 08:59 Not Given QDAY MONTSERRAT Glucagon 1 mg 04/01/25 04:32 Glucagon Inj 1 Mg Vial IM Q15MIN PRN BG <70, and no IV access Heparin Sodium (Porcine) 5,000 unit 03/23/25 21:00 04/03/25 10:05 Heparin Sod Inj 5000 Unit/Ml Vial SC 04/06/25 20:59 5,000 unit Q12HR MON[place]ERRAT Administration Heparin Sodium (Porcine) 3,800 unit 03/30/25 08:26 04/02/25 22:47 Heparin Sod Inj 1000 Unit/Ml Vial 10 Ml INDWELLCAT 04/13/25 08:25 3,800 unit PRN PRN Administration DIALYSIS Hydromorphone HCl 0.5 mg 04/03/25 08:13 04/03/25 12:14 Hydromorphone Inj 2 Mg/Ml Vial IVP 04/08/25 07:59 0.5 mg Q2HR PRN Administration pain 5-10 Albumin Human 25 gm in 100 mls @ 100 mls/hr 04/01/25 07:37 04/02/25 09:00 Albuminar-25 Ivpb IV Infused PRN PRN Infusion DIALYSIS Daptomycin 500 mg/ Sodium 60 mls @ 120 mls/hr 04/01/25 15:00 04/02/25 09:00 Chloride 10 ml/ Sodium IV 04/08/25 14:59 Infused Chloride QOD@1500 MONTSERRAT Infusion Protocol Piperacillin Sod/Tazobactam 100 mls @ 200 mls/hr 04/02/25 15:29 04/03/25 10:03 Sod 4.5 gm/ Sodium Chloride IV 04/09/25 15:28 200 mls/hr Q12HR [place]AT Administration Insulin Human Lispro 0 unit 04/02/25 17:00 04/03/25 12:13 Insulin Lispro (Admelog) 1 Unit/0.01 Ml Unit SC 05/02/25 16:59 Not Given ACHS [facility] Protocol Levalbuterol HCl 0.31 mg 03/28/25 10:24 03/31/25 00:37 Levalbuterol Rt 0.31 Mg/3 Ml Nebu INH 04/19/25 12:14 0.31 mg Q6HRRT PRN Administration Wheezing Lorazepam 1 mg 04/01/25 08:11 Lorazepam 2 Mg/Ml Vial IVP Q5MIN PRN seizure Metoprolol Tartrate 2.5 mg 04/01/25 08:30 Metoprolol Tartrate Inj 1 Mg/Ml Amp 5 Ml IVP Q5MIN PRN TACHYCARDIA HR >120 Midodrine 10 mg 03/19/25 18:19 Midodrine 5 Mg Tablet GT 04/18/25 21:59 TID PRN MAP below 65 Ondansetron HCl 4 mg 03/14/25 17:31 03/30/25 01:39 Ondansetron Inj 2 Mg/Ml Inj 2 Ml IV 04/13/25 17:30 4 mg Q6H PRN Administration NAUSEA OR VOMITING Protocol Pantoprazole Sodium 40 mg 03/31/25 09:00 04/03/25 10:03 Pantoprazole Inj 40 Mg Vial IVP 04/30/25 08:59 40 mg QDAY MONTSERRAT Administration Polyethylene Glycol 17 gm 03/26/25 18:00 04/03/25 10:03 Polyethylene Glycol 17 Gm Packet PO 04/25/25 17:59 17 gm QDAY MONTSERR[place] Administration Pregabalin 50 mg 04/01/25 09:00 04/01/25 10:22 Pregabalin 25 Mg Capsule PO 05/01/25 08:59 Not Given BID MON[place]ERRAT Sennosides 1 tab 03/26/25 18:00 04/03/25 10:03 Senna Tablet PO 04/25/25 17:59 1 tab QDAY MONTSERRAT Administration Protocol Sevelamer Carbonate 800 mg 04/03/25 12:00 04/03/25 12:14 Sevelamer Carbonate 800 Mg Tablet PO 05/03/25 11:59 800 mg TIDWM MON[place] Administration Sodium Chloride 3 ml 03/31/25 06:26 Sodium Cl Rt Marjorie 3% 4 Ml Nebu (Non-Formulary) INH 04/16/25 18:59 Q6HRRT PRN To induce cough Plan Patient is a 49 year old male with a past medical history of diabetes mellitus type 2, Hypertension, ESRD (T/), HFpEF 50 to 55% w/ mild hypokinesis of anteroseptal wall (03/23/2025), Right BKA who was initially admitted on 03/14/2025 for shock requiring pressor on unknown etiology, suspected septic given lower limb ischemia who was upgraded to ICU on 04/01/2025 secondary to shock requiring phenylephrine. #Left lower extremity Gangrene/tissue necrosis #Status post left foot amputation Resolution of underlying septic shock and tachyarrhythmia likely secondary to this -Continue on empiric antibiotics with daptomycin and Zosyn, adjust for renal function -Pain control with Dilaudid 0.5 2HR in setting of renal failure -punch biopsy for possible workup for calciphylaxis #HFmrEF (EF 50-55% 02/2025) Previous echo on file from 03/16/2025 noted to have EF of 45-55% with repeat Echo on 03/23/2025 noted EF of 50 to 55%. -lasix 20 mg PO X1 -Daily weights -Strict JENN's #ESRD on HD Continues to have multiple electrolyte derangements and metabolic acidosis now improved after HD yesterday. Plan for continue this renal replacement therapy using Tablo, plan for slow HD for 12 hours with a goal of 1 L net removal. NO plan for dialysis this morning. D/C sodium bicarbonate. -Follow PTH an vitamin D levels -Sevelamer 800 mg PO TIDWM -Nephrology consulted, Dr. Pleitez, appreciate recommendations #Hepatitis - baseline is nl, unclear etiology, viral panel negative may be 2/2 hypotension v hypoxia, check a RUQ abd us with doppler to eval for any poss thrombosis - LFTs trending down #DM2 -Placed on SS insulin -BG remains at goal less than 180 -Hypoglycemic protocol in place #Anemia - likely secondary to anemia of chronic disease - continue to monitor hbg and hct and transfuse <7.0 - ordered repeat H&H #Acute Hypoxic resp failure in the setting of Left base PNA -remains DNI as per his previous wishes -Continues to be on NC 3L #Leukocytosis - reactive and secondary to infection of left leg lower extremity necrosis. - Chest x-ray on 04/03/2025 noted to have a Noted for Left Pneumonia of base of retrocardiaic counter, continue with board spectrum antibiotic coverage #Sinus Tachycardia s/p cardioversion #SVT, resolved. #Hx of A-fib During hospital course, patient developed SVT and MAT with underlying history of Atrail Fibrilation requiring patient to be cardioverted. Most recently on 04/01/2025 at 3:05 Am patient once again developed Atrial fibrillation w/ RVR, Amiodarone drip started. 04/01/2025 at approximetly 8:00 AM patient required to be cardioverted given hyodynamic instability and possible SVT vs atrial flutter. [id number] score of 3 points indicating 3.2% risk of stroke per year HAS-BLED score of 5 points -Asprin 81 mg qday -Hold Amiodarone and Diltiazem as per cardiology recommendations. #Troponinemia Elevated troponin likely secondary to NSTEMI demand ischemia secondary to shock. Continue to trend troponin. EKG showed no ST elevation. Cardiology consulted, Dr. Villalobos, appreciate recommendaitons. #Acute Encephalopathy-resolved Substance Abuse- Utox pos for meth and marijuana - long time use Shock, likely distributive- resolved in the setting of left foot necrosis, POD#2 Left foot amputation #Bradycardia, resolved. Bradycardia upon ICU arrival, likely in the setting of Amiodarone drip started overnight. Currently holding Amiodarone & Diltiazem after rapid response. #Thrombocytopenia-normalized - no active bleeding noted given 2 units PRBC yesterday preoperatively with hemodialysis - Continue to hold anticoagulation at this time apart from appropriate DVT prophylaxis with heparin Health Maintenance: Disp: Pt is currently admitted to floors for further management of septic shock secondary to left gangrene foot, plan to downgrade to floors. FEN: Renal Diet DVT: on subQ heparin & Aspirin 81 mg QDay Code: DNR/DNI Patient's plan and care discussed with my attending, Dr. Teresa Hawthorne MD PGY-2 Attending Provider Attestation/Addendum I have discussed and was present for the essential components of the history, physical examination, diagnosis, and treatment plan with the resident. I agree with the patient's care as documented by the resident and amended herein by me. Collin Moore DO. Although this document has been carefully reviewed, there may still be some phonetic and other typographical errors. These errors are purely grammatical due to imperfections in the software program and should not be construed in any way to compromise the substance of the patient's medical care during this visit.
[2025-04-03] MEDS: Furosemide 20 MG TABLET PO (14:36)
[2025-04-03] MEDS: [UNRECOGNIZED DRUG - OTHER] IV (14:36)
[2025-04-03] MEDS: DAPTOMYCIN IV (14:36)
[2025-04-03] MEDS: SODIUM CHLORIDE 0.9% IV (14:36)
[2025-04-03] MEDS: HYDROmorphone INJ 2 MG/ML VIAL 1 MG IVP ×4 (15:00→22:10)
[2025-04-03 17:19] LABS: Hematocrit 22.9 % (41.0-53.0)
[2025-04-03 17:37] LABS: Hemoglobin 7.2 g/dL (13.5-16.0)
[2025-04-03] MEDS: INSULIN LISPRO (AdmeLOG) 1 UNIT/0.01 ML UNIT SC (21:09)
[2025-04-04] VITALS (29 sets, daily range): BP systolic 106–172; BP diastolic 53–85; PULSE 71–105; RESP 6–19; TEMP 36.6–36.8; O2SAT 92–100; BMI 36.1
[2025-04-04] MEDS: HYDROmorphone INJ 2 MG/ML VIAL 1 MG IVP ×5 (00:29→11:28)
[2025-04-04 05:12] LABS: Base Excess 1 (-3-3); HCO3 27 mEq/L (20-26); Inspired Oxygen, FIO2 32 %; O2 Saturation 100 % (91-98); PCO2 51 mmHg (32.0-48.0); PO2 114 mmHg (83-108); pH, Arterial 7.33 (7.35-7.45)
[2025-04-04 05:21] LABS: Allen Test Not Performed; Puncture Site Arterial Line
[2025-04-04 06:16] LABS: Basophils % (Auto) 1 % (0-2.5); Eosinophils # (Auto) 0.2 Thou/mm3 (0.0-0.5); Eosinophils % (Auto) 2 % (0-10); Hematocrit 23.6 % (41.0-53.0); Immature Granulocytes % (Auto) 2 % (0-0); Immature Granulocytes Auto 0.13 Thou/mm3 (0.00-0.00); Lymphocytes % (Auto) 14 % (10-50); Mean Corpuscular HGB Conc 31.4 g/dl (31.0-37.0); Mean Corpuscular Hemoglobin 31.2 pg (25.0-35.0); Mean Corpuscular Volume 100 fL (80-100); Monocytes # (Auto) 0.7 Thou/mm3 (0.0-0.8); Monocytes % (Auto) 11 % (0-12); Neutrophils % (Auto) 71 % (37-80); Nucleated Red Blood Cell % 0 /100 WBC (0); Platelet Count 133 Thou/mm3 (140-440); Red Blood Count 2.37 Miln/mm3 (4.50-5.90)
[2025-04-04 06:18] LABS: Hemoglobin 7.4 g/dL (13.5-16.0)
[2025-04-04 06:30] LABS: Alanine Aminotransferase 24 U/L (10-49); Alkaline Phosphatase 87 U/L (46-116); Anion Gap 9 (7-16); Aspartate Amino Transferase 11 U/L (0-34); BUN/Creatinine Ratio 9 Ratio (12-20); Bilirubin,Total 0.4 mg/dL (0.3-1.2); Blood Urea Nitrogen 35 mg/dL (9-23); Calcium 7.7 mg/dL (8.3-10.6); Calcium (Corrected) 8.5 mg/dL (8.5-10.1); Carbon Dioxide 25.8 mMol/L (20.0-31.0); Chloride 101 mMol/L (98-107); Creatinine (Component) 3.8 mg/dL (0.6-1.3); Estimated Creatinine Clearance 30.9 mL/min (>60); Globulin 2.9 gm/dL (2.3-3.5); Glucose 88 mg/dL (74-106); Magnesium 1.9 mg/dL (1.6-2.6); Osmolality,Calculated 278 (275-295); Sodium 136 mMol/L (136-145); Total Protein 5.9 gm/dL (5.7-8.2); eGFR 18 See Note
[2025-04-04] MEDS: PANTOPRAZOLE INJ 40 MG VIAL IVP (08:44)
[2025-04-04] MEDS: POLYETHYLENE GLYCOL 17 GM PACKET PO (08:45)
[2025-04-04] MEDS: SENNA TABLET 1 TAB PO (08:45)
[2025-04-04] MEDS: PIPER/TAZO INJ 4.5 GM in SODIUM CHLORIDE 0.9% (POP) 100 ML IV ×2 (08:45→21:53)
[2025-04-04] MEDS: SEVELAMER CARBONATE 800 MG TABLET PO ×3 (08:45→19:23)
[2025-04-04] MEDS: ASPIRIN EC 81 MG TABEC PO (08:45)
--- NOTE | 2025-04-04 09:22 | PD.RESPRO ---
Documentation for date of: 04/04/25 Subjective Subjective Interval history: Mr. Mcclain is a 49-year-old male with past medical history of type 2 diabetes mellitus, hypertension, end-stage renal disease (HD ), HFpEF (EF 50 to 55% 02/2025) and right BKA due to osteomyelitis who was brought in by ambulance to [facility] emergency department on 03/14/2025 with a chief complaint of altered mental status. Patient was intubated secondary to inability to protect airway. On presentation patient's assisted with procuring history, per patient's patient had progressive shortness of breath and had change in mentation, patient was found to be in SVT when EMS arrived was shocked once and was converted to sinus rhythm. Patient also had to get additional sessions of hemodialysis due to increase in weight, last session of hemodialysis before admission to the hospital was on 12 March 2025. Patient also does have history of methamphetamine use, urine tox screen was positive for methamphetamine and marijuana on presentation. With the progression of hospital course patient was initially managed in the intensive care unit for acute hypoxic respiratory failure was found to have stenotrophomonas maltophilia pneumonia was treated with IV antibiotics, had significant lactic acidosis respiratory acidosis and high anion gap metabolic acidosis which improved in ICU patient did require CRRT and was eventually transition to hemodialysis, patient was eventually extubated on downgraded to telemetry on 03/20/2025. Patient's hospital stay is further complicated with possible acute versus chronic limb ischemia and underlying severe peripheral vascular disease, communication and outreach manager discussed case with vascular surgeon at [facility] during the hospitalization, patient was a poor candidate for revascularization per documentation. Patient started on amiodarone for underlying atrial fibrillation and eventually infectious disease consulted for Staph haemolyticus bacteremia possible CLABSI. Patient continue to receive inpatient hemodialysis. 03/25/2025: Patient successfully completed 3 hours 4 minutes of dialysis session today, postdialysis weight 115.9 kg was hypotensive at times during the dialysis, tolerated dialysis well through the temporary dialysis catheter. Net fluid removed 0.5 L. Blood pressure was soft, received 2 bags of albumin during the dialysis session.Patient will need permanent dialysis catheter placement, will be scheduled with interventional radiology in a.m. after holding aspirin and Plavix. Patient will be made n.p.o. after midnight by primary team. 03/26/2025: Patient seen and examined at bedside, patient had permanent tunneled dialysis catheter placed today. Currently complains of some back pain. Patient will continue to receive IV antibiotics until 04/05/2025 with hemodialysis. Otherwise patient is stable, has no current complaints. Anticipate discharge in next 24 hours on supplemental oxygen. 03/27/2025:Patient received dialysis treatment today, completed about 2 hours of dialysis session, about 1.1 L fluid removed, postdialysis weight 115 kg, was administered 100 mL albumin during the dialysis session for low blood pressure, patient did receive alteplase through the indwelling catheter x 1. Primary team discussed the case with patient and patient's family, patient has been requiring an extensive amount of IV pain medication, further plan by primary team is to discharge patient to shelter facility and not on hospice as patient does not have underlying clear etiology for hospice. Patient's DAPT being held, cardiology following the case and patient may undergo angiogram heart, bilateral upper and lower extremities on Saturday. 03/28/2025: Patient continues to complain of pain, patient's gabapentin changed to pregabalin 25 twice daily and [place] was increased to 7.5 mg. Patient Aspirin and Plavix being held, patient going to undergo cardiac angiogram and angiogram upper and lower extremities likely in the morning. Will coordinate with cardiology. 03/29/2025: Labs and Vitals reviewed. Patient scheduled for Procedure with Cardiology Today, will plan for dialysis pot procedure after discussion with Cardiology Team, otherwise patient is stable, has no current complains. Pregabalin dose adjusted by primrary team. 03/30/2025: Patient received dialysis treatment today, received dialysis for 3 hours 6-minute, about 2 L fluid removed, postdialysis weight 112.3, patient was administered 100 mL of albumin during dialysis. Patient had his angiogram done yesterday showed right ulnar artery to be totally occluded or absent and there was no CAD. Cardiology recommended to stop patient's aspirin, Plavix, metoprolol, and statin and they also started the patient on diltiazem. They also recommended to get general surgery for possible amputation and to start Eliquis 2.5 mg twice daily after the patient has surgery. Will consult general surgery for possible amputation. 03/31/2025: Patient seen and examined at bedside, labs and vitals reviewed. Patient received dialysis yesterday, patient is being evaluated by general surgery for possible amputation. Otherwise has no current complaints, reports no new concerns. 04/01/2025: Patient upgraded to ICU earlier this morning, patient had seizure-like episode. Patient was given Ativan 1 mg x 1. Patient later had another rapid response called with heart rate in 140s and SpO2 in low 80s, patient was very lethargic MAP was found to be in the range of 55-64. Patient eventually upgraded to ICU for IV pressors, patient started on phenylephrine in ICU. Patient will receive dialysis today, scheduled for BKA by surgery later today. 04/03/2025: Patient seen and examined at bedside in ICU, patient was started on OSTEOPATHIC PHYSICIAN, for about 12 hours, had about 1 L fluid removed.Patient was weaned off of phenylephrine, currently not requiring any pressors. Patient does have significant right hand pain due to digital necrosis, is on Dilaudid for pain management. [employer]chant [employer] team will obtain punch biopsy today of the skin for further analysis. 04/04/2025: Patient seen and examined at bedside, currently in ICU physically, was downgraded to telemetry yesterday. Patient received dialysis treatment today, goal is to remove about 3 L fluid, patient will likely need another session of dialysis tomorrow morning, patient has significant amount of fluid in the body. Otherwise patient is stable, has no current complaints tolerating dialysis well. Exam Vital Signs Temp Pulse Resp BP Pulse Ox O2 Del Method O2 Flow Rate 98.1 F 71 14 130/68 100 Nasal Cannula 3 04/04/25 04:00 04/04/25 04:00 04/04/25 04:00 04/04/25 04:00 04/04/25 04:00 04/04/25 04:00 04/03/25 18:55 FiO2 50 04/03/25 02:30 Narrative Exam General Appearance: Pt in no respiratory distress, well nourished, alert and oriented. Able to answer questions. On nasal cannula. HEENT: NC/AT, no scleral icterus, no conjunctival pallor, MMM Lungs: CTAB, no wheezes or crackles appreciated CVS: RRR, S1/S2 heard, no murmurs or rubs appreciated, no bruits on carotid auscultation ABD: Soft, non-tender, non-distended, BS + in all 4 quadrants EXT: Bilateral BKA, upper extremity digits' necrotic, left lower extremity bandage intact with some bleeding noted. Right lower extremity stump discolored. SKIN: Skin exam normal without any rashes. Neuro: A&O x 3. No gross neurological deficits. Sensation intact. Psych: Appropriate mood and affect Objective Labs 04/05/25 05:42 04/05/25 05:42 Labs: Laboratory Results - last 24 hr 04/03/25 04/04/25 04/04/25 16:49 04:28 05:02 WBC 7.0 RBC 2.37 L Hgb 7.2 L 7.4 L Hct 22.9 L 23.6 L MCV 100 MCH 31.2 MCHC 31.4 RDW Std Deviation 64.0 H Plt Count 133 L Neut % (Auto) 71 Lymph % (Auto) 14 [place] % (Auto) 11 Eos % (Auto) 2 Baso % (Auto) 1 Neut # (Auto) 5.0 Lymph # (Auto) 1.0 [place] # (Auto) 0.7 Eos # (Auto) 0.2 Baso # (Auto) 0.0 Immature Gran # (Auto) 0.13 H Absolute Nucleated RBC 0.00 Immature Gran % 2 H Nucleated RBC % 0 Puncture Site Arterial Line ABG pH 7.33 L ABG pCO2 51 H ABG pO2 114 H ABG HCO3 27 H ABG O2 Saturation 100 H ABG Base Excess 1 FiO2 32 Sodium 136 Potassium 4.0 Chloride 101 Carbon Dioxide 25.8 Anion Gap 9 BUN 35 H Creatinine 3.8 H D Estim Creat Clear Calc 30.9 L eGFR 18 L BUN/Creatinine Ratio 9 L Glucose 88 Calculated Osmolality 278 Calcium 7.7 L Corrected Calcium 8.5 Phosphorus 5.0 Magnesium 1.9 Total Bilirubin 0.4 AST 11 ALT 24 Alkaline Phosphatase 87 Total Protein 5.9 Albumin 3.0 L Globulin 2.9 Albumin/Globulin Ratio 1.0 L ABG Interpretation ABG results: 03/14/25 03/14/25 03/14/25 14:44 16:44 18:53 ABG pH 7.03 L* 7.04 L* 7.10 L* ABG pCO2 43 50 H 46 ABG pO2 86 128 H D 57 L* D ABG HCO3 11 L 13 L 14 L ABG O2 Saturation 91 97 78 L ABG Base Excess -19 L -17 L -15 L VBG pH VBG pCO2 VBG pO2 VBG Base Excess 03/14/25 03/15/25 03/15/25 21:20 05:07 12:28 ABG pH 7.21 L D 7.41 D ABG pCO2 32 D 31 L ABG pO2 116 H D 74 L D ABG HCO3 13 L 20 ABG O2 Saturation 97 95 ABG Base Excess -14 L -4 L VBG pH 7.43 VBG pCO2 34 L VBG pO2 37 VBG Base Excess -1 03/16/25 03/16/25 03/16/25 04:51 11:48 19:30 ABG pH 7.46 H 7.22 L D 7.38 D ABG pCO2 29 L 66 H D 48 D ABG pO2 78 L 79 L 236 H D ABG HCO3 21 27 H 29 H ABG O2 Saturation 96 91 100 H ABG Base Excess -2 -2 3 VBG pH VBG pCO2 VBG pO2 VBG Base Excess 03/17/25 03/18/25 03/19/25 04:53 09:27 04:46 ABG pH 7.38 7.35 ABG pCO2 49 H 48 ABG pO2 78 L D 92 ABG HCO3 29 H 26 ABG O2 Saturation 95 98 ABG Base Excess 3 0 VBG pH 7.34 VBG pCO2 54 D VBG pO2 34 VBG Base Excess 2 03/24/25 04/01/25 04/01/25 22:00 04:53 15:50 ABG pH 7.33 L 7.23 L ABG pCO2 48 62 H ABG pO2 233 H 102 ABG HCO3 25 26 ABG O2 Saturation 101 H 98 ABG Base Excess -1 -2 VBG pH 7.24 L VBG pCO2 57 H VBG pO2 51 VBG Base Excess -3 04/01/25 04/02/25 04/03/25 18:40 04:45 05:17 ABG pH 7.24 L 7.24 L 7.31 L ABG pCO2 61 H 59 H 56 H ABG pO2 207 H D 203 H 123 H D ABG HCO3 26 25 28 H ABG O2 Saturation 101 H 101 H 100 H ABG Base Excess -2 -3 2 VBG pH VBG pCO2 VBG pO2 VBG Base Excess 04/04/25 05:02 ABG pH 7.33 L ABG pCO2 51 H ABG pO2 114 H ABG HCO3 27 H ABG O2 Saturation 100 H ABG Base Excess 1 VBG pH VBG pCO2 VBG pO2 VBG Base Excess Quality Measures Quality Measures VTE prophylaxis Assessment & Plan Assessment Current Active Medications: Generic Name Dose Route Start Last Admin Trade Name Freq PRN Reason Stop Dose Admin Acetaminophen 650 mg 03/20/25 11:35 03/21/25 06:39 Acetaminophen 325 Mg Tablet PO 04/19/25 11:34 650 mg Q6HR PRN Administration pain and Fever >100.4 Protocol Aspirin 81 mg 04/03/25 12:00 04/04/25 08:45 Aspirin Ec 81 Mg Tabec PO 05/03/25 11:59 81 mg QDAY MONTSERRAT Administration Dextrose 25 ml 04/01/25 04:32 Dextrose 50%-Water Inj 50 Ml Syringe IV 05/01/25 04:31 Q15MIN PRN BG 50-70 responsive npo pt Dextrose 50 ml 04/01/25 04:32 04/01/25 05:21 Dextrose 50%-Water Inj 50 Ml Syringe IV 05/01/25 04:31 50 ml Q15MIN PRN Administration BG <50 OR BG <70 & pt unresponsive Diltiazem HCl 120 mg 03/30/25 09:00 04/01/25 10:20 Diltiazem Cd 120 Mg Capcr PO 04/29/25 08:59 Not Given QDAY MONTSERRAT Glucagon 1 mg 04/01/25 04:32 Glucagon Inj 1 Mg Vial IM Q15MIN PRN BG <70, and no IV access Heparin Sodium (Porcine) 5,000 unit 03/23/25 21:00 04/03/25 10:05 Heparin Sod Inj 5000 Unit/Ml Vial SC 04/06/25 20:59 5,000 unit Q12HR MONTSERRAT Administration Heparin Sodium (Porcine) 3,800 unit 03/30/25 08:26 04/02/25 22:47 Heparin Sod Inj 1000 Unit/Ml Vial 10 Ml INDWELLCAT 04/13/25 08:25 3,800 unit PRN PRN Administration DIALYSIS Hydromorphone HCl 1 mg 04/03/25 14:50 04/04/25 08:44 Hydromorphone Inj 2 Mg/Ml Vial IVP 04/08/25 07:59 1 mg Q2HR PRN Administration pain 5-10 Albumin Human 25 gm in 100 mls @ 100 mls/hr 04/01/25 07:37 04/02/25 09:00 Albuminar-25 Ivpb IV Infused PRN PRN Infusion DIALYSIS Daptomycin 500 mg/ Sodium 60 mls @ 120 mls/hr 04/01/25 15:00 04/03/25 14:36 Chloride 10 ml/ Sodium IV 04/08/25 14:59 120 mls/hr Chloride QOD@1500 MONTSERRAT Administration Protocol Piperacillin Sod/Tazobactam 100 mls @ 200 mls/hr 04/02/25 15:29 04/04/25 08:45 Sod 4.5 gm/ Sodium Chloride IV 04/09/25 15:28 200 mls/hr Q12HR MONTSERRAT Administration Insulin Human Lispro 0 unit 04/02/25 17:00 04/04/25 08:17 Insulin Lispro (Admelog) 1 Unit/0.01 Ml Unit SC 05/02/25 16:59 Not Given ACHS MONTSERRAT Protocol Levalbuterol HCl 0.31 mg 03/28/25 10:24 03/31/25 00:37 Levalbuterol Rt 0.31 Mg/3 Ml Nebu INH 04/19/25 12:14 0.31 mg Q6HRRT PRN Administration Wheezing Lorazepam 1 mg 04/01/25 08:11 Lorazepam 2 Mg/Ml Vial IVP Q5MIN PRN seizure Ondansetron HCl 4 mg 03/14/25 17:31 03/30/25 01:39 Ondansetron Inj 2 Mg/Ml Inj 2 Ml IV 04/13/25 17:30 4 mg Q6H PRN Administration NAUSEA OR VOMITING Protocol Pantoprazole Sodium 40 mg 03/31/25 09:00 04/04/25 08:44 Pantoprazole Inj 40 Mg Vial IVP 04/30/25 08:59 40 mg QDAY [place]TS[place] Administration Polyethylene Glycol 17 gm 03/26/25 18:00 04/04/25 08:45 Polyethylene Glycol 17 Gm Packet PO 04/25/25 17:59 17 gm QDAY MONTSERR[place] Administration Pregabalin 50 mg 04/01/25 09:00 04/01/25 10:22 Pregabalin 25 Mg Capsule PO 05/01/25 08:59 Not Given BID MONTSERRAT Sennosides 1 tab 03/26/25 18:00 04/04/25 08:45 Senna Tablet PO 04/25/25 17:59 1 tab QDAY MONTSERRAT Administration Protocol Sevelamer Carbonate 800 mg 04/03/25 12:00 04/04/25 08:45 Sevelamer Carbonate 800 Mg Tablet PO 05/03/25 11:59 800 mg TIDWM MONTSERRAT Administration Sodium Chloride 3 ml 03/31/25 06:26 Sodium Cl Rt Marjorie 3% 4 Ml Nebu (Non-Formulary) INH 04/16/25 18:59 Q6HRRT PRN To induce cough Plan Assessment and Plan: Summary: Mr. Mcclain is a 49 years old male with PMH of DM2, hypertension, ESRD (HD ), HFpEF (EF 55% on 2021), and right BKA due to osteomyelitis BIBA to the ED due to AMS, was intubated and started on pressors and was admitted to the ICU on 03/14/2025 for management of shock of unknown etiology and was started on IV antibiotics. On 03/17 his sputum culture grew stenotrophomonas maltophilia and antibiotics were changed to levofloxacin. He was extubated and downgraded to telemetry on 03/20/2025 for continuation of care. # End-stage renal disease Patient received CRRT in intensive care unit, was transition to hemodialysis. Patient will need a line holiday and placement of due to underlying bacteremia. Primary team to hold aspirin and Plavix, catheter will be exchanged in a.m. possibly Patient received permanent tunneled dialysis catheter placement on 03/26/2025. Plan: - Continue with hemodialysis inpatient -patient currently receiving dialysis, goal to remove about 3 L fluid today. - Avoid nephrotoxic agents. - Renally dose medications. #Staph Hemolyticus bacteremia #CLABSI Patient tested for gram-positive cocci (staph hymolyticus ) 2/2 blood blood cultures on 03/21/2025 -Mx as per primrary team #Acute blood loss Anemia #Hematemesis. #Macrocytic anemia. #Thrombocytopenia. Hemoglobin 7.9, RBC 2.48, hematocrit 25%, MCV 101, platelets 131 today - Management as per primary team #HFrEF (EF 50-55% on 2024) #A-fib with RVR, rate controlled, MAT, SVT #Troponinemia - resolved Patient had improved ejection fraction compared to the echocardiogram from a week ago, cardiology is consulted. - Management as per primary team and cardiology #Possible acute vs chronic limb ischemia. #Peripheral Vascular disease, severe Patient has severe vascular disease, case was discussed by ICU team with a vascular surgeon at [facility] Patient is poor candidate for surgery per documentation Patient was evaluated by supervisor cigar making hand had cardiac catheterization and upper and lower extremity angiogram done. Per cardiology patient has disease in right lower limb, otherwise no significant PAD noted. Cardiology recommends amputation by general surgery orthopedics consulted as well #Acute hypoxic respiratory failure, improved. #Stenotrophomonas maltophilia pneumonia. #Respiratory acidosis, resolved. #Septic shock, resolved. - Management as per primary team #Transaminitis. #Hyperbilirubinemia #Hepatomegaly. #Hx of DM2. #Hypoglycemia, resolved. -Management per primary team Case discussed with Attending Dr. Pleitez. Marycarmen Clark PGY1 Disclaimer: This note was dictated by speech recognition. Minor errors in salary and wage administrator may be present due to voice recognition software. Attending Provider Attestation/Addendum Pt is seen and examined. Labs and investigations are reviewed. Agree witth assessment and plan by resident. agree with findings. Héctor Pleitez MD
[2025-04-04] MEDS: HEPARIN SOD INJ 1000 UNIT/ML VIAL 10 ML 3800 UNIT INDWELLCAT (12:54)
--- NOTE | 2025-04-04 13:21 | PD.RESPRO ---
Documentation for date of: 04/04/25 Subjective Subjective Interval history: Acute overnight events reported. Patient continues to have upper extremity digit pain. Patient would like to increase his pain medications. Will hydrocodone 10 mg every 6 as well as increase Dilaudid to 2 mg every 4 hours. Will plan for punch biopsy tomorrow. Pending vitamin D levels and PTH. Will discontinue a line for now. Per nephrology, will need another session of dialysis. Per cardiology, recommends to start aspirin and Eliquis when patient is able. Exam Vital Signs Temp Pulse Resp BP Pulse Ox O2 Del Method O2 Flow Rate 98.1 F 79 14 142/61 H 98 Nasal Cannula 3 04/04/25 13:17 04/04/25 13:17 04/04/25 13:17 04/04/25 13:17 04/04/25 13:17 04/04/25 04:00 04/04/25 13:17 FiO2 50 04/04/25 13:17 Narrative Exam General Appearance: Pt in no respiratory distress, well nourished, alert and oriented. Able to answer questions. On nasal cannula. HEENT: NC/AT, no scleral icterus, no conjunctival pallor, MMM Lungs: CTAB, no wheezes or crackles appreciated CVS: RRR, S1/S2 heard, no murmurs or rubs appreciated, no bruits on carotid auscultation ABD: Soft, non-tender, non-distended, BS + in all 4 quadrants EXT: Bilateral BKA, upper extremity digits' necrotic, left lower extremity bandage intact with some bleeding noted. Right lower extremity stump discolored. SKIN: Skin exam normal without any rashes. Neuro: A&O x 3. No gross neurological deficits. Sensation intact. Psych: Appropriate mood and affect Objective Labs 04/04/25 04:28 04/04/25 04:28 Labs: Laboratory Results - last 24 hr 04/03/25 04/04/25 04/04/25 16:49 04:28 05:02 WBC 7.0 RBC 2.37 L Hgb 7.2 L 7.4 L Hct 22.9 L 23.6 L MCV 100 MCH 31.2 MCHC 31.4 RDW Std Deviation 64.0 H Plt Count 133 L Neut % (Auto) 71 Lymph % (Auto) 14 Calhoun % (Auto) 11 Eos % (Auto) 2 Baso % (Auto) 1 Neut # (Auto) 5.0 Lymph # (Auto) 1.0 Calhoun # (Auto) 0.7 Eos # (Auto) 0.2 Baso # (Auto) 0.0 Immature Gran # (Auto) 0.13 H Absolute Nucleated RBC 0.00 Immature Gran % 2 H Nucleated RBC % 0 Puncture Site Arterial Line ABG pH 7.33 L ABG pCO2 51 H ABG pO2 114 H ABG HCO3 27 H ABG O2 Saturation 100 H ABG Base Excess 1 FiO2 32 Sodium 136 Potassium 4.0 Chloride 101 Carbon Dioxide 25.8 Anion Gap 9 BUN 35 H Creatinine 3.8 H D Estim Creat Clear Calc 30.9 L eGFR 18 L BUN/Creatinine Ratio 9 L Glucose 88 Calculated Osmolality 278 Calcium 7.7 L Corrected Calcium 8.5 Phosphorus 5.0 Magnesium 1.9 Total Bilirubin 0.4 AST 11 ALT 24 Alkaline Phosphatase 87 Total Protein 5.9 Albumin 3.0 L Globulin 2.9 Albumin/Globulin Ratio 1.0 L ABG Interpretation ABG results: 03/14/25 03/14/25 03/14/25 14:44 16:44 18:53 ABG pH 7.03 L* 7.04 L* 7.10 L* ABG pCO2 43 50 H 46 ABG pO2 86 128 H D 57 L* D ABG HCO3 11 L 13 L 14 L ABG O2 Saturation 91 97 78 L ABG Base Excess -19 L -17 L -15 L VBG pH VBG pCO2 VBG pO2 VBG Base Excess 03/14/25 03/15/25 03/15/25 21:20 05:07 12:28 ABG pH 7.21 L D 7.41 D ABG pCO2 32 D 31 L ABG pO2 116 H D 74 L D ABG HCO3 13 L 20 ABG O2 Saturation 97 95 ABG Base Excess -14 L -4 L VBG pH 7.43 VBG pCO2 34 L VBG pO2 37 VBG Base Excess -1 03/16/25 03/16/25 03/16/25 04:51 11:48 19:30 ABG pH 7.46 H 7.22 L D 7.38 D ABG pCO2 29 L 66 H D 48 D ABG pO2 78 L 79 L 236 H D ABG HCO3 21 27 H 29 H ABG O2 Saturation 96 91 100 H ABG Base Excess -2 -2 3 VBG pH VBG pCO2 VBG pO2 VBG Base Excess 03/17/25 03/18/25 03/19/25 04:53 09:27 04:46 ABG pH 7.38 7.35 ABG pCO2 49 H 48 ABG pO2 78 L D 92 ABG HCO3 29 H 26 ABG O2 Saturation 95 98 ABG Base Excess 3 0 VBG pH 7.34 VBG pCO2 54 D VBG pO2 34 VBG Base Excess 2 03/24/25 04/01/25 04/01/25 22:00 04:53 15:50 ABG pH 7.33 L 7.23 L ABG pCO2 48 62 H ABG pO2 233 H 102 ABG HCO3 25 26 ABG O2 Saturation 101 H 98 ABG Base Excess -1 -2 VBG pH 7.24 L VBG pCO2 57 H VBG pO2 51 VBG Base Excess -3 04/01/25 04/02/25 04/03/25 18:40 04:45 05:17 ABG pH 7.24 L 7.24 L 7.31 L ABG pCO2 61 H 59 H 56 H ABG pO2 207 H D 203 H 123 H D ABG HCO3 26 25 28 H ABG O2 Saturation 101 H 101 H 100 H ABG Base Excess -2 -3 2 VBG pH VBG pCO2 VBG pO2 VBG Base Excess 04/04/25 05:02 ABG pH 7.33 L ABG pCO2 51 H ABG pO2 114 H ABG HCO3 27 H ABG O2 Saturation 100 H ABG Base Excess 1 VBG pH VBG pCO2 VBG pO2 VBG Base Excess Quality Measures Quality Measures VTE prophylaxis Assessment & Plan Assessment Current Active Medications: Generic Name Dose Route Start Last Admin Trade Name Freq PRN Reason Stop Dose Admin Acetaminophen 650 mg 03/20/25 11:35 03/21/25 06:39 Acetaminophen 325 Mg Tablet PO 04/19/25 11:34 650 mg Q6HR PRN Administration pain and Fever >100.4 Protocol Hydrocodone Bitart/Acetaminophen 1 tab 04/04/25 11:48 Hydrocodone/Apap 10/325 Tab PO 04/09/25 11:47 Q6HR PRN PAIN SCALE 4-6 (Moderate Aspirin 81 mg 04/03/25 12:00 04/04/25 08:45 Aspirin Ec 81 Mg Tabec PO 05/03/25 11:59 81 mg QDAY MONTSERRAT Administration Dextrose 25 ml 04/01/25 04:32 Dextrose 50%-Water Inj 50 Ml Syringe IV 05/01/25 04:31 Q15MIN PRN BG 50-70 responsive npo pt Dextrose 50 ml 04/01/25 04:32 04/01/25 05:21 Dextrose 50%-Water Inj 50 Ml Syringe IV 05/01/25 04:31 50 ml Q15MIN PRN Administration BG <50 OR BG <70 & pt unresponsive Diltiazem HCl 120 mg 03/30/25 09:00 04/01/25 10:20 Diltiazem Cd 120 Mg Capcr PO 04/29/25 08:59 Not Given QDAY MONTSERRAT Glucagon 1 mg 04/01/25 04:32 Glucagon Inj 1 Mg Vial IM Q15MIN PRN BG <70, and no IV access Heparin Sodium (Porcine) 5,000 unit 03/23/25 21:00 04/03/25 10:05 Heparin Sod Inj 5000 Unit/Ml Vial SC 04/06/25 20:59 5,000 unit Q12HR MONTSERRAT Administration Heparin Sodium (Porcine) 3,800 unit 03/30/25 08:26 04/04/25 12:54 Heparin Sod Inj 1000 Unit/Ml Vial 10 Ml INDWELLCAT 04/13/25 08:25 3,800 unit PRN PRN Administration DIALYSIS Hydromorphone HCl 1 mg 04/03/25 14:50 04/04/25 11:28 Hydromorphone Inj 2 Mg/Ml Vial IVP 04/08/25 07:59 1 mg Q2HR PRN Administration pain 5-10 Albumin Human 25 gm in 100 mls @ 100 mls/hr 04/01/25 07:37 04/02/25 09:00 Albuminar-25 Ivpb IV Infused PRN PRN Infusion DIALYSIS Daptomycin 500 mg/ Sodium 60 mls @ 120 mls/hr 04/01/25 15:00 04/03/25 14:36 Chloride 10 ml/ Sodium IV 04/08/25 14:59 120 mls/hr Chloride QOD@1500 MONTSERRAT Administration Protocol Piperacillin Sod/Tazobactam 100 mls @ 200 mls/hr 04/02/25 15:29 04/04/25 08:45 Sod 4.5 gm/ Sodium Chloride IV 04/09/25 15:28 200 mls/hr Q12HR MONTSERRAT Administration Insulin Human Lispro 0 unit 04/02/25 17:00 04/04/25 12:04 Insulin Lispro (Admelog) 1 Unit/0.01 Ml Unit SC 05/02/25 16:59 Not Given ACHS MONTSERRAT Protocol Levalbuterol HCl 0.31 mg 03/28/25 10:24 03/31/25 00:37 Levalbuterol Rt 0.31 Mg/3 Ml Nebu INH 04/19/25 12:14 0.31 mg Q6HRRT PRN Administration Wheezing Lorazepam 1 mg 04/01/25 08:11 Lorazepam 2 Mg/Ml Vial IVP Q5MIN PRN seizure Ondansetron HCl 4 mg 03/14/25 17:31 03/30/25 01:39 Ondansetron Inj 2 Mg/Ml Inj 2 Ml IV 04/13/25 17:30 4 mg Q6H PRN Administration NAUSEA OR VOMITING Protocol Pantoprazole Sodium 40 mg 03/31/25 09:00 04/04/25 08:44 Pantoprazole Inj 40 Mg Vial IVP 04/30/25 08:59 40 mg QDAY MONTSERRAT Administration Polyethylene Glycol 17 gm 03/26/25 18:00 04/04/25 08:45 Polyethylene Glycol 17 Gm Packet PO 04/25/25 17:59 17 gm QDAY MONTSERRAT Administration Pregabalin 50 mg 04/01/25 09:00 04/01/25 10:22 Pregabalin 25 Mg Capsule PO 05/01/25 08:59 Not Given BID MONTSERRAT Sennosides 1 tab 03/26/25 18:00 04/04/25 08:45 Senna Tablet PO 04/25/25 17:59 1 tab QDAY MONTSERRAT Administration Protocol Sevelamer Carbonate 800 mg 04/03/25 12:00 04/04/25 11:28 Sevelamer Carbonate 800 Mg Tablet PO 05/03/25 11:59 800 mg TIDWM MONTSERRAT Administration Sodium Chloride 3 ml 03/31/25 06:26 Sodium Cl Rt Marjorie 3% 4 Ml Nebu (Non-Formulary) INH 04/16/25 18:59 Q6HRRT PRN To induce cough Plan Patient is a 49 year old male with a past medical history of diabetes mellitus type 2, Hypertension, ESRD (), HFpEF 50 to 55% w/ mild hypokinesis of anteroseptal wall (03/23/2025), Right BKA who was initially admitted on 03/14/2025 for shock requiring pressor on unknown etiology, suspected septic given lower limb ischemia who was upgraded to ICU on 04/01/2025 secondary to shock requiring phenylephrine. 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 -Daily weights -Strict JENN's #ESRD on HD Continues to have multiple electrolyte derangements and metabolic acidosis now improved after HD yesterday. Plan for continue this renal replacement therapy using Tablo, plan for slow HD for 12 hours with a goal of 1 L net removal. -Follow PTH an vitamin D levels -Sevelamer 800 mg PO TIDWM -Nephrology consulted, Dr. Pleitez, appreciate recommendations -Continue dialysis per nephrology #Hepatitis - baseline is nl, unclear etiology, viral panel negative may be 2/2 hypotension v hypoxia, check a RUQ abd us with doppler to eval for any poss thrombosis - LFTs trending down #DM2 -Placed on SS insulin -BG remains at goal less than 180 -Hypoglycemic protocol in place #Anemia - likely secondary to anemia of chronic disease - continue to monitor hbg and hct and transfuse <7.0 - ordered repeat H&H #Acute Hypoxic resp failure in the setting of Left base PNA -remains DNI as per his previous wishes -Continues to be on NC 3L #Leukocytosis - reactive and secondary to infection of left leg lower extremity necrosis. - Chest x-ray on 04/03/2025 noted to have a Noted for Left Pneumonia of base of retrocardiaic counter, continue with board spectrum antibiotic coverage #Sinus Tachycardia s/p cardioversion #SVT, resolved. #Hx of A-fib During hospital course, patient developed SVT and MAT with underlying history of Atrail Fibrilation requiring patient to be cardioverted. Most recently on 04/01/2025 at 3:05 Am patient once again developed Atrial fibrillation w/ RVR, Amiodarone drip started. 04/01/2025 at approximetly 8:00 AM patient required to be cardioverted given hyodynamic instability and possible SVT vs atrial flutter. [id number] score of 3 points indicating 3.2% risk of stroke per year HAS-BLED score of 5 points -Asprin 81 mg qday -Hold Amiodarone and Diltiazem as per cardiology recommendations -Resume Eliquis when patient can tolerate most likely tomorrow #Troponinemia Elevated troponin likely secondary to NSTEMI demand ischemia secondary to shock. Continue to trend troponin. EKG showed no ST elevation. Cardiology consulted, Dr. Villalobos, appreciate recommendaitons. #Acute Encephalopathy-resolved Substance Abuse- Utox pos for meth and marijuana - long time use Shock, likely distributive- resolved in the setting of left foot necrosis, POD#2 Left foot amputation #Bradycardia, resolved. Bradycardia upon ICU arrival, likely in the setting of Amiodarone drip started overnight. Currently holding Amiodarone & Diltiazem after rapid response. #Thrombocytopenia-normalized - no active bleeding noted given 2 units PRBC yesterday preoperatively with hemodialysis - Continue to hold anticoagulation at this time apart from appropriate DVT prophylaxis with heparin Health Maintenance: Disp: Pt is currently admitted to floors for further management of septic shock secondary to left gangrene foot, plan to downgrade to floors. FEN: Renal Diet DVT: on subQ heparin & Aspirin 81 mg QDay Code: DNR/DNI Patient's plan and care discussed with my attending, Dr. Teresa Hawthorne MD PGY-2 Attending Provider Attestation/Addendum I have discussed and was present for the essential components of the history, physical examination, diagnosis, and treatment plan with the resident. I agree with the patient's care as documented by the resident and amended herein by me. Collin Moore DO. Patient seen and evaluated this AM. No acute events overnight, vital signs stable, patient afebrile, patient on 3 L NC, SpO2 100%. Significant labs include a slightly uptrending hemoglobin to 7.4 today, platelet count 133, BUN 35 and creatinine 3.8. ABG also drawn overnight, pH 7.33, CO2 51, O2 114. Patient will continue on hemodialysis, goal ultrafiltrate today 3.1 L. Will attempt punch biopsy tomorrow to assess for any calciphylaxis which may be the cause of the patient's upper extremity gangrene which is in the course of autoamputation now. Will also continue Zosyn for any potential infection. Considering the patient's significant complaints of pain in his upper extremities, will increase Dilaudid to 2 mg every 4 hours. Will also continue aspirin 81 mg daily, presently holding amiodarone and diltiazem per cardiology recommendations. Appreciate all specialist recommendations, will continue to monitor closely. Although this document has been carefully reviewed, there may still be some phonetic and other typographical errors. These errors are purely grammatical due to imperfections in the software program and should not be construed in any way to compromise the substance of the patient's medical care during this visit.
[2025-04-04] MEDS: HYDROcodone/APAP 10/325 TAB PO ×2 (14:22→21:52)
[2025-04-04] MEDS: HYDROmorphone INJ 2 MG/ML VIAL IVP (19:23)
[2025-04-04 20:14] LABS: Vitamin D 25 Hydroxy Total 20.6 ng/mL (7.3-40.2)
[2025-04-04] MEDS: Artificial Tears 225 DROP/15 ML BTL BOTH EYES (21:53)
[2025-04-05] VITALS (31 sets, daily range): BP systolic 103–147; BP diastolic 52–93; PULSE 71–95; RESP 0–93; TEMP 36–37.2; O2SAT 90–96
[2025-04-05] MEDS: HYDROmorphone INJ 2 MG/ML VIAL IVP ×3 (00:29→09:27)
[2025-04-05 06:08] LABS: Basophils # (Auto) 0.1 Thou/mm3 (0.0-0.2); Basophils % (Auto) 1 % (0-2.5); Eosinophils # (Auto) 0.3 Thou/mm3 (0.0-0.5); Eosinophils % (Auto) 4 % (0-10); Hematocrit 25.7 % (41.0-53.0); Immature Granulocytes % (Auto) 2 % (0-0); Immature Granulocytes Auto 0.17 Thou/mm3 (0.00-0.00); Lymphocytes # (Auto) 0.9 Thou/mm3 (1.0-4.8); Lymphocytes % (Auto) 12 % (10-50); Mean Corpuscular HGB Conc 30.4 g/dl (31.0-37.0); Mean Corpuscular Hemoglobin 31.2 pg (25.0-35.0); Mean Corpuscular Volume 103 fL (80-100); Monocytes # (Auto) 0.7 Thou/mm3 (0.0-0.8); Monocytes % (Auto) 9 % (0-12); Neutrophils # (Auto) 5.4 Thou/mm3 (1.8-7.7); Neutrophils % (Auto) 73 % (37-80); Nucleated Red Blood Cell % 0 /100 WBC (0); Platelet Count 130 Thou/mm3 (140-440); RDW Standard Deviation 66.9 fL (35.1-43.9); White Blood Count 7.5 Thou/mm3 (3.8-10.6)
[2025-04-05 06:24] LABS: Hemoglobin 7.8 g/dL (13.5-16.0)
[2025-04-05 06:36] LABS: Alanine Aminotransferase 20 U/L (10-49); Alkaline Phosphatase 85 U/L (46-116); Anion Gap 8 (7-16); Aspartate Amino Transferase 12 U/L (0-34); BUN/Creatinine Ratio 8 Ratio (12-20); Bilirubin,Total 0.5 mg/dL (0.3-1.2); Blood Urea Nitrogen 30 mg/dL (9-23); Calcium 7.7 mg/dL (8.3-10.6); Calcium (Corrected) 8.5 mg/dL (8.5-10.1); Carbon Dioxide 25.5 mMol/L (20.0-31.0); Chloride 102 mMol/L (98-107); Creatinine (Component) 3.7 mg/dL (0.6-1.3); Estimated Creatinine Clearance 31.7 mL/min (>60); Glucose 101 mg/dL (74-106); Osmolality,Calculated 276 (275-295); Potassium 4.1 mMol/L (3.4-5.1); Sodium 135 mMol/L (136-145); eGFR 19 See Note
[2025-04-05 07:10] LABS: Prolactin* 24.2 ng/mL (2.0-18.0)
[2025-04-05] MEDS: PANTOPRAZOLE INJ 40 MG VIAL IVP (08:09)
[2025-04-05] MEDS: SENNA TABLET 1 TAB PO (08:09)
[2025-04-05] MEDS: SEVELAMER CARBONATE 800 MG TABLET PO ×3 (08:09→16:44)
[2025-04-05] MEDS: PIPER/TAZO INJ 4.5 GM in SODIUM CHLORIDE 0.9% (POP) 100 ML IV ×2 (08:09→21:10)
[2025-04-05] MEDS: ASPIRIN EC 81 MG TABEC PO (08:09)
[2025-04-05] MEDS: POLYETHYLENE GLYCOL 17 GM PACKET PO (08:10)
[2025-04-05] MEDS: HYDROcodone/APAP 10/325 TAB PO ×2 (08:14→22:32)
[2025-04-05] MEDS: AMIODARONE HCL 200 MG TABLET PO ×2 (09:27→21:10)
--- NOTE | 2025-04-05 10:29 | PC.SS ---
SS follow up note; Patient is pending a biopsy today, ortho consult pending. Patient will need a PT evaluation closer to discharge for authorization. [facility] medically [facility].
--- NOTE | 2025-04-05 11:20 | ESPR_ITS ---
Documentation for date of: 04/05/25 Subjective Subjective Interval history: Mr. Mcclain is a 49-year-old male with past medical history of type 2 diabetes mellitus, hypertension, end-stage renal disease (HD ), HFpEF (EF 50 to 55% 02/2025) and right BKA due to osteomyelitis who was brought in by ambulance to [facility] emergency department on 03/14/2025 with a chief complaint of altered mental status. Patient was intubated secondary to inability to protect airway. On presentation patient's assisted with procuring history, per patient's patient had progressive shortness of breath and had change in mentation, patient was found to be in SVT when EMS arrived was shocked once and was converted to sinus rhythm. Patient also had to get additional sessions of hemodialysis due to increase in weight, last session of hemodialysis before admission to the hospital was on 12 March 2025. Patient also does have history of methamphetamine use, urine tox screen was positive for methamphetamine and marijuana on presentation. With the progression of hospital course patient was initially managed in the intensive care unit for acute hypoxic respiratory failure was found to have stenotrophomonas maltophilia pneumonia was treated with IV antibiotics, had significant lactic acidosis respiratory acidosis and high anion gap metabolic acidosis which improved in ICU patient did require CRRT and was eventually transition to hemodialysis, patient was eventually extubated on downgraded to telemetry on 03/20/2025. Patient's hospital stay is further complicated with possible acute versus chronic limb ischemia and underlying severe peripheral vascular disease, wall to wall carpet installer discussed case with vascular surgeon at [facility] during the hospitalization, patient was a poor candidate for revascularization per documentation. Patient started on amiodarone for underlying atrial fibrillation and eventually infectious disease consulted for Staph haemolyticus bacteremia possible CLABSI. Patient continue to receive inpatient hemodialysis. 03/25/2025: Patient successfully completed 3 hours 4 minutes of dialysis session today, postdialysis weight 115.9 kg was hypotensive at times during the dialysis, tolerated dialysis well through the temporary dialysis catheter. Net fluid removed 0.5 L. Blood pressure was soft, received 2 bags of albumin during the dialysis session.Patient will need permanent dialysis catheter placement, will be scheduled with interventional radiology in a.m. after holding aspirin and Plavix. Patient will be made n.p.o. after midnight by primary team. 03/26/2025: Patient seen and examined at bedside, patient had permanent tunneled dialysis catheter placed today. Currently complains of some back pain. Patient will continue to receive IV antibiotics until 04/05/2025 with hemodialysis. Otherwise patient is stable, has no current complaints. Anticipate discharge in next 24 hours on supplemental oxygen. 03/27/2025:Patient received dialysis treatment today, completed about 2 hours of dialysis session, about 1.1 L fluid removed, postdialysis weight 115 kg, was administered 100 mL albumin during the dialysis session for low blood pressure, patient did receive alteplase through the indwelling catheter x 1. Primary team discussed the case with patient and patient's family, patient has been requiring an extensive amount of IV pain medication, further plan by primary team is to discharge patient to care home facility and not on hospice as patient does not have underlying clear etiology for hospice. Patient's DAPT being held, cardiology following the case and patient may undergo angiogram heart, bilateral upper and lower extremities on Saturday. 03/28/2025: Patient continues to complain of pain, patient's gabapentin changed to pregabalin 25 twice daily and [place] was increased to 7.5 mg. Patient Aspirin and Plavix being held, patient going to undergo cardiac angiogram and angiogram upper and lower extremities likely in the morning. Will coordinate with cardiology. 03/29/2025: Labs and Vitals reviewed. Patient scheduled for Procedure with Cardiology Today, will plan for dialysis pot procedure after discussion with Cardiology Team, otherwise patient is stable, has no current complains. Pregabalin dose adjusted by primrary team. 03/30/2025: Patient received dialysis treatment today, received dialysis for 3 hours 6-minute, about 2 L fluid removed, postdialysis weight 112.3, patient was administered 100 mL of albumin during dialysis. Patient had his angiogram done yesterday showed right ulnar artery to be totally occluded or absent and there was no CAD. Cardiology recommended to stop patient's aspirin, Plavix, metoprolol, and statin and they also started the patient on diltiazem. They also recommended to get general surgery for possible amputation and to start Eliquis 2.5 mg twice daily after the patient has surgery. Will consult general surgery for possible amputation. 03/31/2025: Patient seen and examined at bedside, labs and vitals reviewed. Patient received dialysis yesterday, patient is being evaluated by general surgery for possible amputation. Otherwise has no current complaints, reports no new concerns. 04/01/2025: Patient upgraded to ICU earlier this morning, patient had seizure- like episode. Patient was given Ativan 1 mg x 1. Patient later had another rapid response called with heart rate in 140s and SpO2 in low 80s, patient was very lethargic MAP was found to be in the range of 55-64. Patient eventually upgraded to ICU for IV pressors, patient started on phenylephrine in ICU. Patient will receive dialysis today, scheduled for BKA by surgery later today. 04/03/2025: Patient seen and examined at bedside in ICU, patient was started on AUTOMATIC TRANSMISSION MECHANIC, for about 12 hours, had about 1 L fluid removed.Patient was weaned off of phenylephrine, currently not requiring any pressors. Patient does have significant right hand pain due to digital necrosis, is on Dilaudid for pain management. Electric Needle Specialist team will obtain punch biopsy today of the skin for further analysis. 04/04/2025: Patient seen and examined at bedside, currently in ICU physically, was downgraded to telemetry yesterday. Patient received dialysis treatment today, goal is to remove about 3 L fluid, patient will likely need another session of dialysis tomorrow morning, patient has significant amount of fluid in the body. Otherwise patient is stable, has no current complaints tolerating dialysis well. 04/05/2025: Patient seen and examined at bedside, currently fluid overloaded as well, will plan for another session of dialysis today with goal to remove fluid. Will continue to monitor patient's fluid status post dialysis today, patient is pending orthopedic consult, is on telemetry. Otherwise has no current complaints. Exam Vital Signs Temp Pulse Resp BP Pulse Ox O2 Del Method O2 Flow Rate 96.8 F 78 14 103/61 91 L Room Air 2 04/05/25 08:00 04/05/25 09:27 04/05/25 08:00 04/05/25 09:27 04/05/25 08:00 04/05/25 08:00 04/04/25 19:40 FiO2 50 04/04/25 13:17 Narrative Exam General Appearance: Pt in no respiratory distress, well nourished, alert and oriented. Able to answer questions. On nasal cannula. HEENT: NC/AT, no scleral icterus, no conjunctival pallor, MMM Lungs: CTAB, no wheezes or crackles appreciated CVS: RRR, S1/S2 heard, no murmurs or rubs appreciated, no bruits on carotid auscultation ABD: Soft, non-tender, non-distended, BS + in all 4 quadrants EXT: Bilateral BKA, upper extremity digits' necrotic, left lower extremity bandage intact with some bleeding noted. Right lower extremity stump discolored. SKIN: Skin exam normal without any rashes. Neuro: A&O x 3. No gross neurological deficits. Sensation intact. Psych: Appropriate mood and affect Objective Labs 04/05/25 05:42 04/05/25 05:42 Labs: Laboratory Results - last 24 hr 04/01/25 04/03/25 04/05/25 11:14 09:50 05:42 WBC 7.5 RBC 2.50 L Hgb 7.8 L Hct 25.7 L MCV 103 H MCH 31.2 MCHC 30.4 L RDW Std Deviation 66.9 H Plt Count 130 L Neut % (Auto) 73 Lymph % (Auto) 12 [place] % (Auto) 9 Eos % (Auto) 4 Baso % (Auto) 1 Neut # (Auto) 5.4 Lymph # (Auto) 0.9 L [place] # (Auto) 0.7 Eos # (Auto) 0.3 Baso # (Auto) 0.1 Immature Gran # (Auto) 0.17 H Absolute Nucleated RBC 0.00 Immature Gran % 2 H Nucleated RBC % 0 Sodium 135 L Potassium 4.1 Chloride 102 Carbon Dioxide 25.5 Anion Gap 8 BUN 30 H Creatinine 3.7 H Estim Creat Clear Calc 31.7 L eGFR 19 L BUN/Creatinine Ratio 8 L Glucose 101 Calculated Osmolality 276 Calcium 7.7 L Corrected Calcium 8.5 Phosphorus 5.0 Magnesium 2.0 Total Bilirubin 0.5 AST 12 ALT 20 Alkaline Phosphatase 85 Total Protein 6.0 Albumin 3.0 L Globulin 3.0 Albumin/Globulin Ratio 1.0 L 25-OH Vitamin D Total 20.6 Prolactin (Send Out) 24.2 H PTH Intact 138.0 H ABG Interpretation ABG results: 03/14/25 03/14/25 03/14/25 14:44 16:44 18:53 ABG pH 7.03 L* 7.04 L* 7.10 L* ABG pCO2 43 50 H 46 ABG pO2 86 128 H D 57 L* D ABG HCO3 11 L 13 L 14 L ABG O2 Saturation 91 97 78 L ABG Base Excess -19 L -17 L -15 L VBG pH VBG pCO2 VBG pO2 VBG Base Excess 03/14/25 03/15/25 03/15/25 21:20 05:07 12:28 ABG pH 7.21 L D 7.41 D ABG pCO2 32 D 31 L ABG pO2 116 H D 74 L D ABG HCO3 13 L 20 ABG O2 Saturation 97 95 ABG Base Excess -14 L -4 L VBG pH 7.43 VBG pCO2 34 L VBG pO2 37 VBG Base Excess -1 03/16/25 03/16/25 03/16/25 04:51 11:48 19:30 ABG pH 7.46 H 7.22 L D 7.38 D ABG pCO2 29 L 66 H D 48 D ABG pO2 78 L 79 L 236 H D ABG HCO3 21 27 H 29 H ABG O2 Saturation 96 91 100 H ABG Base Excess -2 -2 3 VBG pH VBG pCO2 VBG pO2 VBG Base Excess 03/17/25 03/18/25 03/19/25 04:53 09:27 04:46 ABG pH 7.38 7.35 ABG pCO2 49 H 48 ABG pO2 78 L D 92 ABG HCO3 29 H 26 ABG O2 Saturation 95 98 ABG Base Excess 3 0 VBG pH 7.34 VBG pCO2 54 D VBG pO2 34 VBG Base Excess 2 03/24/25 04/01/25 04/01/25 22:00 04:53 15:50 ABG pH 7.33 L 7.23 L ABG pCO2 48 62 H ABG pO2 233 H 102 ABG HCO3 25 26 ABG O2 Saturation 101 H 98 ABG Base Excess -1 -2 VBG pH 7.24 L VBG pCO2 57 H VBG pO2 51 VBG Base Excess -3 04/01/25 04/02/25 04/03/25 18:40 04:45 05:17 ABG pH 7.24 L 7.24 L 7.31 L ABG pCO2 61 H 59 H 56 H ABG pO2 207 H D 203 H 123 H D ABG HCO3 26 25 28 H ABG O2 Saturation 101 H 101 H 100 H ABG Base Excess -2 -3 2 VBG pH VBG pCO2 VBG pO2 VBG Base Excess 04/04/25 05:02 ABG pH 7.33 L ABG pCO2 51 H ABG pO2 114 H ABG HCO3 27 H ABG O2 Saturation 100 H ABG Base Excess 1 VBG pH VBG pCO2 VBG pO2 VBG Base Excess Quality Measures Quality Measures VTE prophylaxis Assessment & Plan Assessment Current Active Medications: Generic Name Dose Route Start Last Admin Trade Name Freq PRN Reason Stop Dose Admin Acetaminophen 650 mg 03/20/25 11:35 03/21/25 06:39 Acetaminophen 325 Mg Tablet PO 04/19/25 11:34 650 mg Q6HR PRN Administration pain and Fever >100.4 Protocol Hydrocodone Bitart/Acetaminophen 1 tab 04/04/25 11:48 04/05/25 08:14 Hydrocodone/Apap 10/325 Tab PO 04/09/25 11:47 1 tab Q6HR PRN Administration PAIN SCALE 4-6 (Moderate Amiodarone HCl 200 mg 04/05/25 09:00 04/05/25 09:27 Amiodarone Hcl 200 Mg Tablet PO 05/05/25 08:59 200 mg BID MONTSERRAT Administration Artificial Tears 0 drop 04/04/25 21:37 04/04/25 21:53 Artificial Tears 225 Drop/15 Ml Btl BOTH EYES 05/04/25 21:36 2 drop PRN PRN Administration TO KEEP EYES MOIST Aspirin 81 mg 04/03/25 12:00 04/05/25 08:09 Aspirin Ec 81 Mg Tabec PO 05/03/25 11:59 81 mg QDAY MONTSERRAT Administration Dextrose 25 ml 04/01/25 04:32 Dextrose 50%-Water Inj 50 Ml Syringe IV 05/01/25 04:31 Q15MIN PRN BG 50-70 responsive npo pt Dextrose 50 ml 04/01/25 04:32 04/01/25 05:21 Dextrose 50%-Water Inj 50 Ml Syringe IV 05/01/25 04:31 50 ml Q15MIN PRN Administration BG <50 OR BG <70 & pt unresponsive Diltiazem HCl 120 mg 03/30/25 09:00 04/01/25 10:20 Diltiazem Cd 120 Mg Capcr PO 04/29/25 08:59 Not Given QDAY MONTSERRAT Epoetin Jose 10,000 unit 04/05/25 13:00 Epoetin Jose Inj 1,000 Unit/0.05 Ml Unit SC 04/05/25 13:01 X1 ONE Glucagon 1 mg 04/01/25 04:32 Glucagon Inj 1 Mg Vial IM Q15MIN PRN BG <70, and no IV access Heparin Sodium (Porcine) 5,000 unit 03/23/25 21:00 04/03/25 10:05 Heparin Sod Inj 5000 Unit/Ml Vial SC 04/06/25 20:59 5,000 unit Q12HR MONTSERRAT Administration Heparin Sodium (Porcine) 3,800 unit 03/30/25 08:26 04/04/25 12:54 Heparin Sod Inj 1000 Unit/Ml Vial 10 Ml INDWELLCAT 04/13/25 08:25 3,800 unit PRN PRN Administration DIALYSIS Hydromorphone HCl 2 mg 04/04/25 14:07 04/05/25 09:27 Hydromorphone Inj 2 Mg/Ml Vial IVP 04/08/25 14:49 2 mg Q4HR PRN Administration pain 7-10 Albumin Human 25 gm in 100 mls @ 100 mls/hr 04/01/25 07:37 04/02/25 09:00 Albuminar-25 Ivpb IV Infused PRN PRN Infusion DIALYSIS Daptomycin 500 mg/ Sodium 60 mls @ 120 mls/hr 04/01/25 15:00 04/03/25 14:36 Chloride 10 ml/ Sodium IV 04/08/25 14:59 120 mls/hr Chloride QOD@1500 MONTSERRAT Administration Protocol Piperacillin Sod/Tazobactam 100 mls @ 200 mls/hr 04/02/25 15:29 04/05/25 08:09 Sod 4.5 gm/ Sodium Chloride IV 04/09/25 15:28 200 mls/hr Q12HR MONTSERRAT Administration Insulin Human Lispro 0 unit 04/02/25 17:00 04/05/25 08:06 Insulin Lispro (Admelog) 1 Unit/0.01 Ml Unit SC 05/02/25 16:59 Not Given A[facility]S [facility] Protocol Levalbuterol HCl 0.31 mg 03/28/25 10:24 03/31/25 00:37 Levalbuterol Rt 0.31 Mg/3 Ml Nebu INH 04/19/25 12:14 0.31 mg Q6HRRT PRN Administration Wheezing Lorazepam 1 mg 04/01/25 08:11 Lorazepam 2 Mg/Ml Vial IVP Q5MIN PRN seizure Ondansetron HCl 4 mg 03/14/25 17:31 03/30/25 01:39 Ondansetron Inj 2 Mg/Ml Inj 2 Ml IV 04/13/25 17:30 4 mg Q6H PRN Administration NAUSEA OR VOMITING Protocol Pantoprazole Sodium 40 mg 03/31/25 09:00 04/05/25 08:09 Pantoprazole Inj 40 Mg Vial IVP 04/30/25 08:59 40 mg QDAY MONTSRERAT Administration Polyethylene Glycol 17 gm 03/26/25 18:00 04/05/25 08:10 Polyethylene Glycol 17 Gm Packet PO 04/25/25 17:59 17 gm QDAY MONTSERRAT Administration Pregabalin 50 mg 04/01/25 09:00 04/01/25 10:22 Pregabalin 25 Mg Capsule PO 05/01/25 08:59 Not Given BID MONTSERRAT Sennosides 1 tab 03/26/25 18:00 04/05/25 08:09 Senna Tablet PO 04/25/25 17:59 1 tab QDAY MONTSERRAT Administration Protocol Sevelamer Carbonate 800 mg 04/03/25 12:00 04/05/25 08:09 Sevelamer Carbonate 800 Mg Tablet PO 05/03/25 11:59 800 mg TIDWM MONTSERRAT Administration Sodium Chloride 3 ml 03/31/25 06:26 Sodium Cl Rt Marjorie 3% 4 Ml Nebu (Non-Formulary) INH 04/16/25 18:59 Q6HRRT PRN To induce cough Plan Assessment and Plan: Summary: Mr. Mcclain is a 49 years old male with PMH of DM2, hypertension, ESRD (HD ), HFpEF (EF 55% on 2021), and right BKA due to osteomyelitis BIBA to the ED due to AMS, was intubated and started on pressors and was admitted to the ICU on 03/14/2025 for management of shock of unknown etiology and was started on IV antibiotics. On 03/17 his sputum culture grew stenotrophomonas maltophilia and antibiotics were changed to levofloxacin. He was extubated and downgraded to telemetry on 03/20/2025 for continuation of care. # End-stage renal disease Patient received CRRT in intensive care unit, was transition to hemodialysis. Patient will need a line holiday and placement of due to underlying bacteremia. Primary team to hold aspirin and Plavix, catheter will be exchanged in a.m. possibly Patient received permanent tunneled dialysis catheter placement on 03/26/2025. Plan: - Continue with hemodialysis inpatient -patient currently receiving dialysis, goal to remove about 1-2 L fluid today. - Avoid nephrotoxic agent - Renally dose medications. #Staph Hemolyticus bacteremia #CLABSI Patient tested for gram-positive cocci (staph hymolyticus ) 2/2 blood blood cultures on 03/21/2025 -Mx as per primrary team #Acute blood loss Anemia #Hematemesis. #Macrocytic anemia. #Thrombocytopenia. Hemoglobin 7.9, RBC 2.48, hematocrit 25%, MCV 101, platelets 131 today - Management as per primary team #HFrEF (EF 50-55% on 2024) #A-fib with RVR, rate controlled, MAT, SVT #Troponinemia - resolved Patient had improved ejection fraction compared to the echocardiogram from a week ago, cardiology is consulted. - Management as per primary team and cardiology #Possible acute vs chronic limb ischemia. #Peripheral Vascular disease, severe Patient has severe vascular disease, case was discussed by ICU team with a vascular surgeon at [facility] Patient is poor candidate for surgery per documentation Patient was evaluated by mixer dry food products had cardiac catheterization and upper and lower extremity angiogram done. Per cardiology patient has disease in right lower limb, otherwise no significant PAD noted. Cardiology recommends amputation by general surgery orthopedics consulted as well #Acute hypoxic respiratory failure, improved. #Stenotrophomonas maltophilia pneumonia. #Respiratory acidosis, resolved. #Septic shock, resolved. - Management as per primary team #Transaminitis. #Hyperbilirubinemia #Hepatomegaly. #Hx of DM2. #Hypoglycemia, resolved. -Management per primary team Case discussed with Attending Dr. Pelitez. Marycarmen Clark PGY1 Disclaimer: This note was dictated by speech recognition. Minor errors in revenue stamp cutter may be present due to voice recognition software. Attending Provider Attestation/Addendum Pt is seen and examined. Labs and investigations are reviewed. Agree witth assessment and plan by resident. agree with findings. Héctor Pleitez MD
--- NOTE | 2025-04-05 12:55 | PC.NURSE ---
Patient taken to dialysis by YOANNA Venegas at this time
--- NOTE | 2025-04-05 14:29 | PD.RESPRO ---
Documentation for date of: 04/05/25 Subjective Subjective Interval history: Patient seen and examined at bedside this morning. No acute overnight events. Still complaining of bilateral upper extremity digits pain, but states that it was well-controlled with the Dilaudid. No other complaints at this time. We rediscussed with patient his CODE STATUS and if he would like to be shocked for cardioversion and he said that yesterday he would like to remain DNR and that he would like to get shocked if need be for cardioversion. Exam Vital Signs Temp Pulse Resp BP Pulse Ox O2 Del Method O2 Flow Rate 97.8 F 72 14 129/81 92 L Room Air 5 04/05/25 12:59 04/05/25 14:15 04/05/25 12:59 04/05/25 14:15 04/05/25 12:59 04/05/25 12:00 04/05/25 12:59 FiO2 50 04/05/25 12:59 Narrative Exam General: AO x 3, no acute distress Eyes: Pupils reactive to light, EOMI, vision intact Ears: No visible ear discharge Nose: No visible nasal discharge. Mouth/Throat: Moist mucous membranes, no redness, no lesions. Neck: Neck supple, no cervical lymphadenopathy. Lungs: Clear CHRISTIANO Cardio: Normal S1/S2, irregular, no murmurs, no JVD Abdomen: Soft, non-tender, no palpable masses, peristalsis present, no guarding or rebound Extremities: Right BKA with cyanotic changes which have slightly improved, left distal leg amputation above ankle level, right upper extremity digits show necrotic changes at the tips and extending proximally. Skin: Right upper extremity digits show necrotic changes at the tips with some bullae Neuro: No focal neurological deficits, motor and sensory intact. Objective Labs 04/05/25 05:42 04/05/25 05:42 Labs: Laboratory Results - last 24 hr 04/01/25 04/03/25 04/05/25 11:14 09:50 05:42 WBC 7.5 RBC 2.50 L Hgb 7.8 L Hct 25.7 L MCV 103 H MCH 31.2 MCHC 30.4 L RDW Std Deviation 66.9 H Plt Count 130 L Neut % (Auto) 73 Lymph % (Auto) 12 [place] % (Auto) 9 Eos % (Auto) 4 Baso % (Auto) 1 Neut # (Auto) 5.4 Lymph # (Auto) 0.9 L [place] # (Auto) 0.7 Eos # (Auto) 0.3 Baso # (Auto) 0.1 Immature Gran # (Auto) 0.17 H Absolute Nucleated RBC 0.00 Immature Gran % 2 H Nucleated RBC % 0 Sodium 135 L Potassium 4.1 Chloride 102 Carbon Dioxide 25.5 Anion Gap 8 BUN 30 H Creatinine 3.7 H Estim Creat Clear Calc 31.7 L eGFR 19 L BUN/Creatinine Ratio 8 L Glucose 101 Calculated Osmolality 276 Calcium 7.7 L Corrected Calcium 8.5 Phosphorus 5.0 Magnesium 2.0 Total Bilirubin 0.5 AST 12 ALT 20 Alkaline Phosphatase 85 Total Protein 6.0 Albumin 3.0 L Globulin 3.0 Albumin/Globulin Ratio 1.0 L 25-OH Vitamin D Total 20.6 Prolactin (Send Out) 24.2 H PTH Intact 138.0 H ABG Interpretation ABG results: 03/14/25 03/14/25 03/14/25 14:44 16:44 18:53 ABG pH 7.03 L* 7.04 L* 7.10 L* ABG pCO2 43 50 H 46 ABG pO2 86 128 H D 57 L* D ABG HCO3 11 L 13 L 14 L ABG O2 Saturation 91 97 78 L ABG Base Excess -19 L -17 L -15 L VBG pH VBG pCO2 VBG pO2 VBG Base Excess 03/14/25 03/15/25 03/15/25 21:20 05:07 12:28 ABG pH 7.21 L D 7.41 D ABG pCO2 32 D 31 L ABG pO2 116 H D 74 L D ABG HCO3 13 L 20 ABG O2 Saturation 97 95 ABG Base Excess -14 L -4 L VBG pH 7.43 VBG pCO2 34 L VBG pO2 37 VBG Base Excess -1 03/16/25 03/16/25 03/16/25 04:51 11:48 19:30 ABG pH 7.46 H 7.22 L D 7.38 D ABG pCO2 29 L 66 H D 48 D ABG pO2 78 L 79 L 236 H D ABG HCO3 21 27 H 29 H ABG O2 Saturation 96 91 100 H ABG Base Excess -2 -2 3 VBG pH VBG pCO2 VBG pO2 VBG Base Excess 03/17/25 03/18/2525 04:53 09:27 04:46 ABG pH 7.38 7.35 ABG pCO2 49 H 48 ABG pO2 78 L D 92 ABG HCO3 29 H 26 ABG O2 Saturation 95 98 ABG Base Excess 3 0 VBG pH 7.34 VBG pCO2 54 D VBG pO2 34 VBG Base Excess 2 03/24/25 04/01/25 04/01/25 22:00 04:53 15:50 ABG pH 7.33 L 7.23 L ABG pCO2 48 62 H ABG pO2 233 H 102 ABG HCO3 25 26 ABG O2 Saturation 101 H 98 ABG Base Excess -1 -2 VBG pH 7.24 L VBG pCO2 57 H VBG pO2 51 VBG Base Excess -3 04/01/25 04/02/25 04/03/25 18:40 04:45 05:17 ABG pH 7.24 L 7.24 L 7.31 L ABG pCO2 61 H 59 H 56 H ABG pO2 207 H D 203 H 123 H D ABG HCO3 26 25 28 H ABG O2 Saturation 101 H 101 H 100 H ABG Base Excess -2 -3 2 VBG pH VBG pCO2 VBG pO2 VBG Base Excess 04/04/25 05:02 ABG pH 7.33 L ABG pCO2 51 H ABG pO2 114 H ABG HCO3 27 H ABG O2 Saturation 100 H ABG Base Excess 1 VBG pH VBG pCO2 VBG pO2 VBG Base Excess Quality Measures Quality Measures VTE prophylaxis Assessment & Plan Assessment Current Active Medications: Generic Name Dose Route Start Last Admin Trade Name Freq PRN Reason Stop Dose Admin Acetaminophen 650 mg 03/20/25 11:35 03/21/25 06:39 Acetaminophen 325 Mg Tablet PO 04/19/25 11:34 650 mg Q6HR PRN Administration pain and Fever >100.4 Protocol Hydrocodone Bitart/Acetaminophen 1 tab 04/04/25 11:48 04/05/25 08:14 Hydrocodone/Apap 10/325 Tab PO 04/09/25 11:47 1 tab Q6HR PRN Administration PAIN SCALE 4-6 (Moderate Amiodarone HCl 200 mg 04/05/25 09:00 04/05/25 09:27 Amiodarone Hcl 200 Mg Tablet PO 05/05/25 08:59 200 mg BID MONTSERRAT Administration Artificial Tears 0 drop 04/04/25 21:37 04/04/25 21:53 Artificial Tears 225 Drop/15 Ml Btl BOTH EYES 05/04/25 21:36 2 drop PRN PRN Administration TO KEEP EYES MOIST Aspirin 81 mg 04/03/25 12:00 04/05/25 08:09 Aspirin Ec 81 Mg Tabec PO 05/03/25 11:59 81 mg QDAY MONTSERRAT Administration Dextrose 25 ml 04/01/25 04:32 Dextrose 50%-Water Inj 50 Ml Syringe IV 05/01/25 04:31 Q15MIN PRN BG 50-70 responsive npo pt Dextrose 50 ml 04/01/25 04:32 04/01/25 05:21 Dextrose 50%-Water Inj 50 Ml Syringe IV 05/01/25 04:31 50 ml Q15MIN PRN Administration BG <50 OR BG <70 & pt unresponsive Diltiazem HCl 120 mg 03/30/25 09:00 04/01/25 10:20 Diltiazem Cd 120 Mg Capcr PO 04/29/25 08:59 Not Given QDAY MONTSERRAT Glucagon 1 mg 04/01/25 04:32 Glucagon Inj 1 Mg Vial IM Q15MIN PRN BG <70, and no IV access Heparin Sodium (Porcine) 5,000 unit 03/23/25 21:00 04/03/25 10:05 Heparin Sod Inj 5000 Unit/Ml Vial SC 04/06/25 20:59 5,000 unit Q12HR MONTSERRAT Administration Heparin Sodium (Porcine) 3,800 unit 03/30/25 08:26 04/04/25 12:54 Heparin Sod Inj 1000 Unit/Ml Vial 10 Ml INDWELLCAT 04/13/25 08:25 3,800 unit PRN PRN Administration DIALYSIS Hydromorphone HCl 1 mg 04/05/25 14:28 Hydromorphone Inj 2 Mg/Ml Vial IVP 04/08/25 14:49 Q4HR PRN pain 7-10 Albumin Human 25 gm in 100 mls @ 100 mls/hr 04/01/25 07:37 04/02/25 09:00 Albuminar-25 Ivpb IV Infused PRN PRN Infusion DIALYSIS Daptomycin 500 mg/ Sodium 60 mls @ 120 mls/hr 04/01/25 15:00 04/03/25 14:36 Chloride 10 ml/ Sodium IV 04/08/25 14:59 120 mls/hr Chloride QOD@1500 MONTSERRAT Administration Protocol Piperacillin Sod/Tazobactam 100 mls @ 200 mls/hr 04/02/25 15:29 04/05/25 08:09 Sod 4.5 gm/ Sodium Chloride IV 04/09/25 15:28 200 mls/hr Q12HR MONTSERRAT Administration Insulin Human Lispro 0 unit 04/02/25 17:00 04/05/25 11:35 Insulin Lispro (Admelog) 1 Unit/0.01 Ml Unit SC 05/02/25 16:59 Not Given ACHS MONTSERRAT Protocol Levalbuterol HCl 0.31 mg 03/28/25 10:24 03/31/25 00:37 Levalbuterol Rt 0.31 Mg/3 Ml Nebu INH 04/19/25 12:14 0.31 mg Q6HRRT PRN Administration Wheezing Lorazepam 1 mg 04/01/25 08:11 Lorazepam 2 Mg/Ml Vial IVP Q5MIN PRN seizure Morphine Sulfate 15 mg 04/05/25 14:30 Morphine Sulf 15 Mg Tabcr PO 04/10/25 14:29 Q12HR MONTSERRAT Protocol Ondansetron HCl 4 mg 03/14/25 17:31 03/30/25 01:39 Ondansetron Inj 2 Mg/Ml Inj 2 Ml IV 04/13/25 17:30 4 mg Q6H PRN Administration NAUSEA OR VOMITING Protocol Pantoprazole Sodium 40 mg 03/31/25 09:00 04/05/25 08:09 Pantoprazole Inj 40 Mg Vial IVP 04/30/25 08:59 40 mg QDAY MONTSERRAT Administration Polyethylene Glycol 17 gm 03/26/25 18:00 04/05/25 08:10 Polyethylene Glycol 17 Gm Packet PO 04/25/25 17:59 17 gm QDAY MONTSERRAT Administration Pregabalin 50 mg 04/01/25 09:00 04/01/25 10:22 Pregabalin 25 Mg Capsule PO 05/01/25 08:59 Not Given BID MONTSERRAT Sennosides 1 tab 03/26/25 18:00 04/05/25 08:09 Senna Tablet PO 04/25/25 17:59 1 tab QDAY MONTSERRAT Administration Protocol Sevelamer Carbonate 800 mg 04/03/25 12:00 04/05/25 11:35 Sevelamer Carbonate 800 Mg Tablet PO 05/03/25 11:59 800 mg TIDWM MONTSERRAT Administration Sodium Chloride 3 ml 03/31/25 06:26 Sodium Cl Rt Marjorie 3% 4 Ml Nebu (Non-Formulary) INH 04/16/25 18:59 Q6HRRT PRN To induce cough Plan 49-year-old male with past medical history of DM2, hypertension, ESRD (HD /), HFpEF (EF 55% on 2021), and right BKA due to osteomyelitis was admitted to the ICU on 03/14/2025 for acute hypoxic respiratory failure, acute encephalopathy, and shock. He was extubated and downgraded to telemetry on 03/20/2025. #Right ulnar artery occlusion #Right upper extremity multiple digit necrosis #Left lower extremity gangrene/tissue necrosis s/p guillotine amputation distal #Peripheral Vascular disease, severe Abdomen CTA with runoff that showed occlusion of multiple arteries including the left radial, gluteal, and tibial arteries as well as 90% stenosis of the left superficial femoral artery Also showed 80% stenosis of right superficial femoral artery. Patient had his angiogram done yesterday showed right ulnar artery to be totally occluded or absent and there was no CAD. 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 Patient again went into SVT and received adenosine 6mg x1 and adenosine 12mg x1 before being cardioverted. Repeat EKG showed what appears to be MAT. [id number] score of 3 points indicating 3.2% risk of stroke per year HAS-BLED score of 5 points Patient had his angiogram done 03/31/2025 showed right ulnar artery to be totally occluded or absent and there was no CAD. Cardiology recommended to stop patient's aspirin, Plavix, metoprolol, and statin Patient had a rapid response called on 04/01/2025 was tachycardic in the 140s and EKG looked to be like a SVT. Patient was cardioverted and was then in the heart rates in the 60s. Plan: Continue amiodarone 200 mg twice daily Keep Potassium >4 and Mg >2 [employer] Helper consulted, appreciate recommendations #HFpEF (EF 50-55% on 2024). Echo on 03/16/2025 showed EF of 45 to 50% and septal dyskinesis. Echo on 03/23/2025 shows some improvement and left ventricle function with an EF of 50 to 55% Plan: Will continue with hemodialysis with fluid removal. Daily weights. Strict JENN's. fluid restriction. #ESRD (HD on ). Patient was on hemodialysis and had AV fistula, but was clotted therefore cannot be used. Tunnedled dialysis cath placed 03/26/2025 Plan: Continue hemodialysis as scheduled. Continue sevelamer 800 mg 3 times daily Internal Control Specialist Dr. Pleitez following, appreciate recommendations Avoid nephrotoxic agents. Renally dose medications. #Macrocytic anemia. #Thrombocytopenia, improving Patient's hemoglobin was downtrending from 11.9 on admission Hemoglobin 7.8 and platelets 130 No active signs of bleeding Plan: Continue to monitor daily CBC Transfuse if Hgb less than 7. #Transaminitis, resolved #Hepatomegaly. Possible liver failure due to methamphetamine use? Could be due to shock liver versus hypoxia versus drug-induced. Hepatitis panel negative and abdominal ultrasound that shows some hepatomegaly with possible cirrhosis versus hepatocellular disease. Plan: Continue monitoring daily labs #Hx of DM2. ISS. Hypoglycemia protocol ordered. #Acute Hypoxic resp failure in the setting of Left base PNA, improving #Stenotrophomonas maltophilia pneumonia, resolved . #Respiratory acidosis, resolved. #Septic shock, resolved. #Troponinemia, resolved #Hematemesis, resolved #HAGMA, resolved. #Lactic acidosis, resolved. #Staph Hemolyticus bacteremia, resolved (finished course of vancomycin 03/23-04/05) #CLABSI, resolved #Hyperbilirubinemia, resolved Hospital Maintenance: Disposition: Pending PT eval and better pain control with PO medications Diet: renal DVT ppx: Heparin 5000 SC Q12H GI ppx: Protonix . Code status: DNR. Case disclosed with Attending Dr. Teresa Lee PGY1 Attending Provider Attestation/Addendum I have discussed and was present for the essential components of the history, physical examination, diagnosis, and treatment plan with the resident. I agree with the patient's care as documented by the resident and amended herein by me. Collin Moore DO. Although this document has been carefully reviewed, there may still be some phonetic and other typographical errors. These errors are purely grammatical due to imperfections in the software program and should not be construed in any way to compromise the substance of the patient's medical care during this visit.
[2025-04-05] MEDS: EPOETIN ALFA INJ 1,000 UNIT/0.05 ML UNIT 10000 UNIT SC (14:55)
--- NOTE | 2025-04-05 15:58 | PC.PT ---
PT daljit received. Attempt to initiate PT evaluation at 1530, but patient is dialysis. Will try again tomorrow.
--- NOTE | 2025-04-05 16:31 | PC.NURSE ---
Patient back from dialysis at this time. Pt complaining of 10/10 pain to his fingers. BP 136/85 HR: 78bpm T:98.2F O2: 94% on 5L oxy mask
--- NOTE | 2025-04-05 16:42 | ESPR_ITS ---
<Statement entered by Yanci Villalobos MD - 04/06/25 08:18> I personally examined the patient and telemetry floor appears to be much more stable still have a lot of pain in the right hand underwent successful amputation sepsis improved and clinically is improving gradually does not complain of any chest pain shortness of breath but has a lot of arm pain and hand pain continue pain medications. A-fib rate controlled well does not complain of any chest pain or dizziness. Evaluate the patient with Dr. Wilkinson PGY2 agree with the treatment plan recommendation rate control for now with A- fib. Anticoagulation is deferred because he may require another surgery Documentation for date of: 04/05/25 Subjective Subjective Interval history: Patient was seen and examined at the bedside. No overnight events. Patient continues to have pain in his fingers and pain control was escalated by primary team. His amiodarone was resumed. He is on aspirin now, recommend to resume Eliquis when possible and discontinue aspirin. Pending ortho evaluation and possible fingers amputation. Continue current management. Exam Vital Signs Temp Pulse Resp BP Pulse Ox O2 Del Method O2 Flow Rate 98.2 F 78 14 136/85 H 94 L Room Air 4 04/05/25 16:14 04/05/25 16:14 04/05/25 16:14 04/05/25 16:14 04/05/25 16:14 04/05/25 12:00 04/05/25 16:14 FiO2 50 04/05/25 16:14 Narrative Exam Gen: Well-developed male. HEENT: NCAT, PERRLA, EOMI, MMM, anicteric conjunctivae. CVS: normal S1 and S2. RRR. No M/R/G. Resp: CTA B/L. No rhonchi, rales, crackles or wheezing. Abd: soft, non-tender, non-distended. BS+ in all 4 quadrants. MSK: S/p right BKA, stump appears necrotic, right thigh has blister. S/p left BKA, clean dressing. Dry gangrene over right 2nd and 3rd digits. Tip of left second digit appears necrotic. Neuro: CN II-XII grossly intact. Alert and oriented x3. Psych: appropriate mood and affect. Objective Labs 04/05/25 05:42 04/05/25 05:42 Labs: Laboratory Results - last 24 hr 04/01/25 04/03/25 04/05/25 11:14 09:50 05:42 WBC 7.5 RBC 2.50 L Hgb 7.8 L Hct 25.7 L MCV 103 H MCH 31.2 MCHC 30.4 L RDW Std Deviation 66.9 H Plt Count 130 L Neut % (Auto) 73 Lymph % (Auto) 12 [place] % (Auto) 9 Eos % (Auto) 4 Baso % (Auto) 1 Neut # (Auto) 5.4 Lymph # (Auto) 0.9 L [place] # (Auto) 0.7 Eos # (Auto) 0.3 Baso # (Auto) 0.1 Immature Gran # (Auto) 0.17 H Absolute Nucleated RBC 0.00 Immature Gran % 2 H Nucleated RBC % 0 Sodium 135 L Potassium 4.1 Chloride 102 Carbon Dioxide 25.5 Anion Gap 8 BUN 30 H Creatinine 3.7 H Estim Creat Clear Calc 31.7 L eGFR 19 L BUN/Creatinine Ratio 8 L Glucose 101 Calculated Osmolality 276 Calcium 7.7 L Corrected Calcium 8.5 Phosphorus 5.0 Magnesium 2.0 Total Bilirubin 0.5 AST 12 ALT 20 Alkaline Phosphatase 85 Total Protein 6.0 Albumin 3.0 L Globulin 3.0 Albumin/Globulin Ratio 1.0 L 25-OH Vitamin D Total 20.6 Prolactin (Send Out) 24.2 H PTH Intact 138.0 H ABG Interpretation ABG results: 03/14/25 03/14/25 03/14/25 14:44 16:44 18:53 ABG pH 7.03 L* 7.04 L* 7.10 L* ABG pCO2 43 50 H 46 ABG pO2 86 128 H D 57 L* D ABG HCO3 11 L 13 L 14 L ABG O2 Saturation 91 97 78 L ABG Base Excess -19 L -17 L -15 L VBG pH VBG pCO2 VBG pO2 VBG Base Excess 03/14/25 03/15/25 03/15/25 21:20 05:07 12:28 ABG pH 7.21 L D 7.41 D ABG pCO2 32 D 31 L ABG pO2 116 H D 74 L D ABG HCO3 13 L 20 ABG O2 Saturation 97 95 ABG Base Excess -14 L -4 L VBG pH 7.43 VBG pCO2 34 L VBG pO2 37 VBG Base Excess -1 03/16/25 03/16/25 03/16/25 04:51 11:48 19:30 ABG pH 7.46 H 7.22 L D 7.38 D ABG pCO2 29 L 66 H D 48 D ABG pO2 78 L 79 L 236 H D ABG HCO3 21 27 H 29 H ABG O2 Saturation 96 91 100 H ABG Base Excess -2 -2 3 VBG pH VBG pCO2 VBG pO2 VBG Base Excess 03/17/25 03/18/25 03/19/25 04:53 09:27 04:46 ABG pH 7.38 7.35 ABG pCO2 49 H 48 ABG pO2 78 L D 92 ABG HCO3 29 H 26 ABG O2 Saturation 95 98 ABG Base Excess 3 0 VBG pH 7.34 VBG pCO2 54 D VBG pO2 34 VBG Base Excess 2 03/24/25 04/01/25 04/01/25 22:00 04:53 15:50 ABG pH 7.33 L 7.23 L ABG pCO2 48 62 H ABG pO2 233 H 102 ABG HCO3 25 26 ABG O2 Saturation 101 H 98 ABG Base Excess -1 -2 VBG pH 7.24 L VBG pCO2 57 H VBG pO2 51 VBG Base Excess -3 04/01/25 04/02/25 04/03/25 18:40 04:45 05:17 ABG pH 7.24 L 7.24 L 7.31 L ABG pCO2 61 H 59 H 56 H ABG pO2 207 H D 203 H 123 H D ABG HCO3 26 25 28 H ABG O2 Saturation 101 H 101 H 100 H ABG Base Excess -2 -3 2 VBG pH VBG pCO2 VBG pO2 VBG Base Excess 04/04/25 05:02 ABG pH 7.33 L ABG pCO2 51 H ABG pO2 114 H ABG HCO3 27 H ABG O2 Saturation 100 H ABG Base Excess 1 VBG pH VBG pCO2 VBG pO2 VBG Base Excess Quality Measures Quality Measures VTE prophylaxis Assessment & Plan Assessment Current Active Medications: Generic Name Dose Route Start Last Admin Trade Name Freq PRN Reason Stop Dose Admin Acetaminophen 650 mg 03/20/25 11:35 03/21/25 06:39 Acetaminophen 325 Mg Tablet PO 04/19/25 11:34 650 mg Q6HR PRN Administration pain and Fever >100.4 Protocol Hydrocodone Bitart/Acetaminophen 1 tab 04/04/25 11:48 04/05/25 08:14 Hydrocodone/Apap 10/325 Tab PO 04/09/25 11:47 1 tab Q6HR PRN Administration PAIN SCALE 4-6 (Moderate Amiodarone HCl 200 mg 04/05/25 09:00 04/05/25 09:27 Amiodarone Hcl 200 Mg Tablet PO 05/05/25 08:59 200 mg BID MON[place] Administration Artificial Tears 0 drop 04/04/25 21:37 04/04/25 21:53 Artificial Tears 225 Drop/15 Ml Btl BOTH EYES 05/04/25 21:36 2 drop PRN PRN Administration TO KEEP EYES MOIST Aspirin 81 mg 04/03/25 12:00 04/05/25 08:09 Aspirin Ec 81 Mg Tabec PO 05/03/25 11:59 81 mg QDAY [place] Administration Dextrose 25 ml 04/01/25 04:32 Dextrose 50%-Water Inj 50 Ml Syringe IV 05/01/25 04:31 Q15MIN PRN BG 50-70 responsive npo pt Dextrose 50 ml 04/01/25 04:32 04/01/25 05:21 Dextrose 50%-Water Inj 50 Ml Syringe IV 05/01/25 04:31 50 ml Q15MIN PRN Administration BG <50 OR BG <70 & pt unresponsive Diltiazem HCl 120 mg 03/30/25 09:00 04/01/25 10:20 Diltiazem Cd 120 Mg Capcr PO 04/29/25 08:59 Not Given QDAY [place] Glucagon 1 mg 04/01/25 04:32 Glucagon Inj 1 Mg Vial IM Q15MIN PRN BG <70, and no IV access Heparin Sodium (Porcine) 5,000 unit 03/23/25 21:00 04/03/25 10:05 Heparin Sod Inj 5000 Unit/Ml Vial SC 04/06/25 20:59 5,000 unit Q12HR [place] Administration Heparin Sodium (Porcine) 3,800 unit 03/30/25 08:26 04/04/25 12:54 Heparin Sod Inj 1000 Unit/Ml Vial 10 Ml INDWELLCAT 04/13/25 08:25 3,800 unit PRN PRN Administration DIALYSIS Hydromorphone HCl 1 mg 04/05/25 14:28 Hydromorphone Inj 2 Mg/Ml Vial IVP 04/08/25 14:49 Q4HR PRN pain 7-10 Albumin Human 25 gm in 100 mls @ 100 mls/hr 04/01/25 07:37 04/02/25 09:00 Albuminar-25 Ivpb IV Infused PRN PRN Infusion DIALYSIS Daptomycin 500 mg/ Sodium 60 mls @ 120 mls/hr 04/01/25 15:00 04/03/25 14:36 Chloride 10 ml/ Sodium IV 04/08/25 14:59 120 mls/hr Chloride QOD@1500 [place] Administration Protocol Piperacillin Sod/Tazobactam 100 mls @ 200 mls/hr 04/02/25 15:29 04/05/25 08:09 Sod 4.5 gm/ Sodium Chloride IV 04/09/25 15:28 200 mls/hr Q12HR [place] Administration Insulin Human Lispro 0 unit 04/02/25 17:00 04/05/25 11:35 Insulin Lispro (Admelog) 1 Unit/0.01 Ml Unit SC 05/02/25 16:59 Not Given ACHS [place] Protocol Levalbuterol HCl 0.31 mg 03/28/25 10:24 03/31/25 00:37 Levalbuterol Rt 0.31 Mg/3 Ml Nebu INH 04/19/25 12:14 0.31 mg Q6HRRT PRN Administration Wheezing Lorazepam 1 mg 04/01/25 08:11 Lorazepam 2 Mg/Ml Vial IVP Q5MIN PRN seizure Morphine Sulfate 15 mg 04/05/25 14:30 Morphine Sulf 15 Mg Tabcr PO 04/10/25 14:29 Q12HR [place] Protocol Ondansetron HCl 4 mg 03/14/25 17:31 03/30/25 01:39 Ondansetron Inj 2 Mg/Ml Inj 2 Ml IV 04/13/25 17:30 4 mg Q6H PRN Administration NAUSEA OR VOMITING Protocol Pantoprazole Sodium 40 mg 03/31/25 09:00 04/05/25 08:09 Pantoprazole Inj 40 Mg Vial IVP 04/30/25 08:59 40 mg QDAY [place] Administration Polyethylene Glycol 17 gm 03/26/25 18:00 04/05/25 08:10 Polyethylene Glycol 17 Gm Packet PO 04/25/25 17:59 17 gm QDAY [place] Administration Sennosides 1 tab 03/26/25 18:00 04/05/25 08:09 Senna Tablet PO 04/25/25 17:59 1 tab QDAY [place] Administration Protocol Sevelamer Carbonate 800 mg 04/03/25 12:00 04/05/25 11:35 Sevelamer Carbonate 800 Mg Tablet PO 05/03/25 11:59 800 mg TIDWM [place] Administration Sodium Chloride 3 ml 03/31/25 06:26 Sodium Cl Rt Marjorie 3% 4 Ml Nebu (Non-Formulary) INH 04/16/25 18:59 Q6HRRT PRN To induce cough Plan 49-year-old male with past medical history of DM2, hypertension, ESRD (HD ), HFpEF (EF 55% on 2021), and right BKA due to osteomyelitis was initially admitted to the ICU on 03/14/2025 for acute hypoxic respiratory failure, acute encephalopathy, and shock. He was subsequently extubated and downgraded to telemetry on 03/20/2025 for continuation of care. #Status post acute non-ST segment elevation myocardial infarction, NSTEMI possible type 2 troponin versus NSTEMI. #SVT episodes. #Afib, rate controlled. #Decompensated HFpEF (EF 45-50%). Patient s/p intubation and pressor support in ICU for shock, distributive secondary to sepsis versus cardiogenic. Patient initially presented to ED in SVT and required shock x1. Troponin initially 1.856 uptrended to 7.899 peak. Patient was treated for pneumonia. Patient was able to wean off pressors, extubated, now downgraded to tele. CT LER showed diffuse stenosis on the arteries of the LLE, occlusions in almost all major arteries. Echo done on 03/16/2025 showed LV appears normal with EF 45-50%. Septal dyskinesis is seen, RV appears normal with RVSP 50 mmHg. Mildly dilated LA & RA Mild mitral regurgitation Mild-Moderate TR. 03/21, patient had 2 rapid response events for SVT in the 170-200s which self converted in minutes. 04/01 patient had 2 rapid response calls due to episodes of SVT, was started on amiodarone drip and subsequently underwent electrical cardioversion in ICU. Plan: - continue amiodarone PO. - diltiazem Cd 120 mg daily on hold. - Maintain K >4.0 and Mag >2.0. - Continue dialysis per nephrology. #Extensive atherosclerotic cardiovascular disease with bilateral femoral artery occlusions and distal trifurcation disease with gangrenous changes, ruled out. #Vasopressor-induced vasoconstriction and gangrene of B/L fingers, sequelae. #Left foot gangrene, s/p BKA. -Patient has history of right extremity BKA due to severe PAD. This admission after severe shock requiring pressor support patient subsequently developed ischemia of the right and left fingertips. Vascular surgeon stated that the patient is not a candidate at this time for revascularization, however stated that would discuss case with general surgeon. Likely upper extremity digits affected by vasopressor support in combination with severe PAD causing limb ischemia. Angiography showed Normal, nonobstructive epicardial coronary arteries. Mild left ventricular dysfunction, ejection fraction 50%. Right ulnarl artery totally occluded with excellent flow from the radial artery. Left lower extremity angiogram showed widely patent SFA and trifurcation with distal dorsalis pedis 100% occlusion. Right lower extremity angiogram also showed no significant obstructive lesions until trifurcation( amputated BKA).Discontinued on aspirin, plavix and statin after angiography. Plan: - start on Eliquis 2.5 mg BID when possible, obtain general surgery recommendation regarding post op anticoagulation, continue aspirin for now. #Staph hemolyticus bacteremia. Patient tested for gram-positive cocci 2/2 blood cultures on 03/21/2025, first positive blood cultures this admission. Patient has not been febrile, however has had persistent leukocytosis. Patient subsequently getting all lines removed after receiving dialysis. -Repeat echo on 03/23- Aortic valve leaflets with sclerosis calcification thickening of the cusp but no stenosis. No evidence of vegetation detected. Mitral valve annular show mild calcification mitral leaflets with thickening regurgitations.Left atrium appears to be mildly dilated.Left ventricle is normal with evidence of mild anteroseptal hypokinesis with well-preserved ejection fraction of 50 to 55%. Right heart structures normal. Mild tricuspid regurgitation with no evidence of pulmonary hypertension normal PA pressures. Tricuspid and pulmonic valves appear normal no vegetations. Compared to the study a week ago no change except some improvement in LV function. Repeat blood cultures is negative. HD catheter was exchanged. Plan: -Continue vancomycin and daptomycin IV as per ID recs. Rest of conditions to continue current management per primary team: #Septic shock, resolved. #Acute hypoxic respiratory failure. #Community-acquired pneumonia, Stenotrophomonas maltophilia. #ESRD (HD on ). #History of type 2 diabetes. #Respiratory acidosis, resolved. #HAGMA, resolved. #Lactic acidosis, resolved. #Hyperkalemia, resolved. #Shock liver, resolved. #Possible GI bleed. #Macrocytic anemia. #Thrombocytopenia. #Hematemesis, resolved. #Hypoglycemia, resolved. Discussed the patient with my attending Dr Villalobos. Minh Smith MD, PGY 2. Disclaimer: This note was dictated by speech recognition. Minor errors in sound equipment mechanic may be present due to voice recognition software.
[2025-04-05] MEDS: DAPTOMYCIN IV (16:44)
[2025-04-05] MEDS: Morphine Sulf 15 MG TABCR PO (16:44)
[2025-04-05] MEDS: [UNRECOGNIZED DRUG - OTHER] IV (16:44)
[2025-04-05] MEDS: SODIUM CHLORIDE 0.9% IV (16:44)
--- NOTE | 2025-04-05 20:56 | PC.NURSE ---
1944 Called Security, pt has wax pen in bed, security a bedside confiscated pen. Pen down with security.
[2025-04-06] VITALS (26 sets, daily range): BP systolic 100–142; BP diastolic 55–97; PULSE 63–88; RESP 16–91; TEMP 36–36.6; O2SAT 91–99; BMI 36.1; BMI 12.0
[2025-04-06] MEDS: HYDROmorphone INJ 2 MG/ML VIAL 1 MG IVP (05:22)
[2025-04-06 06:19] LABS: Basophils # (Auto) 0.1 Thou/mm3 (0.0-0.2); Basophils % (Auto) 1 % (0-2.5); Eosinophils # (Auto) 0.3 Thou/mm3 (0.0-0.5); Eosinophils % (Auto) 3 % (0-10); Hematocrit 22.7 % (41.0-53.0); Immature Granulocytes % (Auto) 7 % (0-0); Immature Granulocytes Auto 0.52 Thou/mm3 (0.00-0.00); Lymphocytes # (Auto) 1.1 Thou/mm3 (1.0-4.8); Lymphocytes % (Auto) 14 % (10-50); Mean Corpuscular HGB Conc 31.7 g/dl (31.0-37.0); Mean Corpuscular Hemoglobin 31.6 pg (25.0-35.0); Mean Corpuscular Volume 100 fL (80-100); Monocytes # (Auto) 0.8 Thou/mm3 (0.0-0.8); Monocytes % (Auto) 11 % (0-12); Neutrophils # (Auto) 4.8 Thou/mm3 (1.8-7.7); Neutrophils % (Auto) 64 % (37-80); Nucleated Red Blood Cell % 0 /100 WBC (0); Platelet Count 126 Thou/mm3 (140-440); RDW Standard Deviation 64.1 fL (35.1-43.9); Red Blood Count 2.28 Miln/mm3 (4.50-5.90); White Blood Count 7.6 Thou/mm3 (3.8-10.6)
[2025-04-06 06:27] LABS: Hemoglobin 7.2 g/dL (13.5-16.0)
[2025-04-06 07:21] LABS: Alanine Aminotransferase 16 U/L (10-49); Albumin, Serum 2.9 gm/dL (3.5-5.0); Albumin/Globulin Ratio 1.1 (1.2-2.2); Alkaline Phosphatase 77 U/L (46-116); Anion Gap 10 (7-16); Aspartate Amino Transferase 11 U/L (0-34); BUN/Creatinine Ratio 8 Ratio (12-20); Bilirubin,Total 0.4 mg/dL (0.3-1.2); Blood Urea Nitrogen 33 mg/dL (9-23); Calcium 7.5 mg/dL (8.3-10.6); Calcium (Corrected) 8.4 mg/dL (8.5-10.1); Carbon Dioxide 28.2 mMol/L (20.0-31.0); Chloride 100 mMol/L (98-107); Creatinine (Component) 3.9 mg/dL (0.6-1.3); Estimated Creatinine Clearance 30.1 mL/min (>60); Globulin 2.6 gm/dL (2.3-3.5); Glucose 112 mg/dL (74-106); Magnesium 1.9 mg/dL (1.6-2.6); Osmolality,Calculated 283 (275-295); Phosphorous 5.1 mg/dL (2.4-5.1); Sodium 138 mMol/L (136-145); Total Protein 5.5 gm/dL (5.7-8.2); eGFR 18 See Note
[2025-04-06] MEDS: AMIODARONE HCL 200 MG TABLET PO ×2 (08:04→21:16)
[2025-04-06] MEDS: SEVELAMER CARBONATE 800 MG TABLET PO ×3 (08:04→17:23)
[2025-04-06] MEDS: ASPIRIN EC 81 MG TABEC PO (08:04)
[2025-04-06] MEDS: POLYETHYLENE GLYCOL 17 GM PACKET PO (08:04)
[2025-04-06] MEDS: PIPER/TAZO INJ 4.5 GM in SODIUM CHLORIDE 0.9% (POP) 100 ML IV ×2 (08:05→21:15)
[2025-04-06] MEDS: SENNA TABLET 1 TAB PO (08:05)
[2025-04-06] MEDS: Morphine Sulf 15 MG TABCR PO ×2 (08:05→21:15)
[2025-04-06] MEDS: PANTOPRAZOLE INJ 40 MG VIAL IVP (08:06)
--- NOTE | 2025-04-06 08:39 | ESPR_ITS ---
Documentation for date of: 04/06/25 Subjective Subjective Interval history: Mr. Mcclain is a 49-year-old male with past medical history of type 2 diabetes mellitus, hypertension, end-stage renal disease (HD ), HFpEF (EF 50 to 55% 02/2025) and right BKA due to osteomyelitis who was brought in by ambulance to [facility] emergency department on 03/14/2025 with a chief complaint of altered mental status. Patient was intubated secondary to inability to protect airway. On presentation patient's assisted with procuring history, per patient's patient had progressive shortness of breath and had change in mentation, patient was found to be in SVT when EMS arrived was shocked once and was converted to sinus rhythm. Patient also had to get additional sessions of hemodialysis due to increase in weight, last session of hemodialysis before admission to the hospital was on 12 March 2025. Patient also does have history of methamphetamine use, urine tox screen was positive for methamphetamine and marijuana on presentation. With the progression of hospital course patient was initially managed in the intensive care unit for acute hypoxic respiratory failure was found to have stenotrophomonas maltophilia pneumonia was treated with IV antibiotics, had significant lactic acidosis respiratory acidosis and high anion gap metabolic acidosis which improved in ICU patient did require CRRT and was eventually transition to hemodialysis, patient was eventually extubated on downgraded to telemetry on 03/20/2025. Patient's hospital stay is further complicated with possible acute versus chronic limb ischemia and underlying severe peripheral vascular disease, cardiopulmonary supervisor discussed case with vascular surgeon at [facility] during the hospitalization, patient was a poor candidate for revascularization per documentation. Patient started on amiodarone for underlying atrial fibrillation and eventually infectious disease consulted for Staph haemolyticus bacteremia possible CLABSI. Patient continue to receive inpatient hemodialysis. 03/25/2025: Patient successfully completed 3 hours 4 minutes of dialysis session today, postdialysis weight 115.9 kg was hypotensive at times during the dialysis, tolerated dialysis well through the temporary dialysis catheter. Net fluid removed 0.5 L. Blood pressure was soft, received 2 bags of albumin during the dialysis session.Patient will need permanent dialysis catheter placement, will be scheduled with interventional radiology in a.m. after holding aspirin and Plavix. Patient will be made n.p.o. after midnight by primary team. 03/26/2025: Patient seen and examined at bedside, patient had permanent tunneled dialysis catheter placed today. Currently complains of some back pain. Patient will continue to receive IV antibiotics until 04/05/2025 with hemodialysis. Otherwise patient is stable, has no current complaints. Anticipate discharge in next 24 hours on supplemental oxygen. 03/27/2025:Patient received dialysis treatment today, completed about 2 hours of dialysis session, about 1.1 L fluid removed, postdialysis weight 115 kg, was administered 100 mL albumin during the dialysis session for low blood pressure, patient did receive alteplase through the indwelling catheter x 1. Primary team discussed the case with patient and patient's family, patient has been requiring an extensive amount of IV pain medication, further plan by primary team is to discharge patient to senior living facility and not on hospice as patient does not have underlying clear etiology for hospice. Patient's DAPT being held, cardiology following the case and patient may undergo angiogram heart, bilateral upper and lower extremities on Saturday. 03/28/2025: Patient continues to complain of pain, patient's gabapentin changed to pregabalin 25 twice daily and [place] was increased to 7.5 mg. Patient Aspirin and Plavix being held, patient going to undergo cardiac angiogram and angiogram upper and lower extremities likely in the morning. Will coordinate with cardiology. 03/29/2025: Labs and Vitals reviewed. Patient scheduled for Procedure with Cardiology Today, will plan for dialysis pot procedure after discussion with Cardiology Team, otherwise patient is stable, has no current complains. Pregabalin dose adjusted by primrary team. 03/30/2025: Patient received dialysis treatment today, received dialysis for 3 hours 6-minute, about 2 L fluid removed, postdialysis weight 112.3, patient was administered 100 mL of albumin during dialysis. Patient had his angiogram done yesterday showed right ulnar artery to be totally occluded or absent and there was no CAD. Cardiology recommended to stop patient's aspirin, Plavix, metoprolol, and statin and they also started the patient on diltiazem. They also recommended to get general surgery for possible amputation and to start Eliquis 2.5 mg twice daily after the patient has surgery. Will consult general surgery for possible amputation. 03/31/2025: Patient seen and examined at bedside, labs and vitals reviewed. Patient received dialysis yesterday, patient is being evaluated by general surgery for possible amputation. Otherwise has no current complaints, reports no new concerns. 04/01/2025: Patient upgraded to ICU earlier this morning, patient had seizure- like episode. Patient was given Ativan 1 mg x 1. Patient later had another rapid response called with heart rate in 140s and SpO2 in low 80s, patient was very lethargic MAP was found to be in the range of 55-64. Patient eventually upgraded to ICU for IV pressors, patient started on phenylephrine in ICU. Patient will receive dialysis today, scheduled for BKA by surgery later today. 04/03/2025: Patient seen and examined at bedside in ICU, patient was started on [employer], for about 12 hours, had about 1 L fluid removed.Patient was weaned off of phenylephrine, currently not requiring any pressors. Patient does have significant right hand pain due to digital necrosis, is on Dilaudid for pain management. Medical Assistant Supervisor team will obtain punch biopsy today of the skin for further analysis. 04/04/2025: Patient seen and examined at bedside, currently in ICU physically, was downgraded to telemetry yesterday. Patient received dialysis treatment today, goal is to remove about 3 L fluid, patient will likely need another session of dialysis tomorrow morning, patient has significant amount of fluid in the body. Otherwise patient is stable, has no current complaints tolerating dialysis well. 04/05/2025: Patient seen and examined at bedside, currently fluid overloaded as well, will plan for another session of dialysis today with goal to remove fluid. Will continue to monitor patient's fluid status post dialysis today, patient is pending orthopedic consult, is on telemetry. Otherwise has no current complaints. 04/06/2025: Patient seen and examined at bedside, patient received dialysis yesterday 2.7 L removed. Patient received consecutive dialysis for the last two days 2.7 L fluid removed. Patient is stable today, will recieve dialysis today as well, will remove fluid around 2-3L. Pending orthopaedic surgeon evaluation. Exam Vital Signs Temp Pulse Resp BP Pulse Ox O2 Del Method O2 Flow Rate 96.8 F 70 16 110/59 L 96 Nasal Cannula 5 04/06/25 08:00 04/06/25 08:04 04/06/25 08:00 04/06/25 08:04 04/06/25 08:00 04/06/25 08:00 04/06/25 08:00 FiO2 50 04/05/25 16:14 Narrative Exam General: AO x 3, no acute distress Eyes: Pupils reactive to light, EOMI, vision intact Ears: No visible ear discharge Nose: No visible nasal discharge. Mouth/Throat: Moist mucous membranes, no redness, no lesions. Neck: Neck supple, no cervical lymphadenopathy. Lungs: Clear CHRISTIANO Cardio: Normal S1/S2, irregular, no murmurs, no JVD Abdomen: Soft, non-tender, no palpable masses, peristalsis present, no guarding or rebound Extremities: Right BKA with cyanotic changes which have slightly improved, left distal leg amputation above ankle level, right upper extremity digits show necrotic changes at the tips and extending proximally. Skin: Right upper extremity digits show necrotic changes at the tips with some bullae Neuro: No focal neurological deficits, motor and sensory intact. Objective Labs 04/08/25 04:55 04/08/25 04:55 Labs: Laboratory Results - last 24 hr 04/06/25 05:26 WBC 7.6 RBC 2.28 L Hgb 7.2 L Hct 22.7 L MCV 100 MCH 31.6 MCHC 31.7 RDW Std Deviation 64.1 H Plt Count 126 L Neut % (Auto) 64 Lymph % (Auto) 14 [place] % (Auto) 11 Eos % (Auto) 3 Baso % (Auto) 1 Neut # (Auto) 4.8 Lymph # (Auto) 1.1 [place] # (Auto) 0.8 Eos # (Auto) 0.3 Baso # (Auto) 0.1 Immature Gran # (Auto) 0.52 H Absolute Nucleated RBC 0.00 Immature Gran % 7 H Nucleated RBC % 0 Sodium 138 Potassium 4.0 Chloride 100 Carbon Dioxide 28.2 Anion Gap 10 BUN 33 H Creatinine 3.9 H Estim Creat Clear Calc 30.1 L eGFR 18 L BUN/Creatinine Ratio 8 L Glucose 112 H Calculated Osmolality 283 Calcium 7.5 L Corrected Calcium 8.4 L Phosphorus 5.1 Magnesium 1.9 Total Bilirubin 0.4 AST 11 ALT 16 Alkaline Phosphatase 77 Total Protein 5.5 L Albumin 2.9 L Globulin 2.6 Albumin/Globulin Ratio 1.1 L ABG Interpretation ABG results: 03/14/25 03/14/25 03/14/25 14:44 16:44 18:53 ABG pH 7.03 L* 7.04 L* 7.10 L* ABG pCO2 43 50 H 46 ABG pO2 86 128 H D 57 L* D ABG HCO3 11 L 13 L 14 L ABG O2 Saturation 91 97 78 L ABG Base Excess -19 L -17 L -15 L VBG pH VBG pCO2 VBG pO2 VBG Base Excess 03/14/25 03/15/25 03/15/25 21:20 05:07 12:28 ABG pH 7.21 L D 7.41 D ABG pCO2 32 D 31 L ABG pO2 116 H D 74 L D ABG HCO3 13 L 20 ABG O2 Saturation 97 95 ABG Base Excess -14 L -4 L VBG pH 7.43 VBG pCO2 34 L VBG pO2 37 VBG Base Excess -1 03/16/25 03/16/25 03/16/25 04:51 11:48 19:30 ABG pH 7.46 H 7.22 L D 7.38 D ABG pCO2 29 L 66 H D 48 D ABG pO2 78 L 79 L 236 H D ABG HCO3 21 27 H 29 H ABG O2 Saturation 96 91 100 H ABG Base Excess -2 -2 3 VBG pH VBG pCO2 VBG pO2 VBG Base Excess 03/17/25 03/18/25 03/19/25 04:53 09:27 04:46 ABG pH 7.38 7.35 ABG pCO2 49 H 48 ABG pO2 78 L D 92 ABG HCO3 29 H 26 ABG O2 Saturation 95 98 ABG Base Excess 3 0 VBG pH 7.34 VBG pCO2 54 D VBG pO2 34 VBG Base Excess 2 03/24/25 04/01/25 04/01/25 22:00 04:53 15:50 ABG pH 7.33 L 7.23 L ABG pCO2 48 62 H ABG pO2 233 H 102 ABG HCO3 25 26 ABG O2 Saturation 101 H 98 ABG Base Excess -1 -2 VBG pH 7.24 L VBG pCO2 57 H VBG pO2 51 VBG Base Excess -3 04/01/25 04/02/25 04/03/25 18:40 04:45 05:17 ABG pH 7.24 L 7.24 L 7.31 L ABG pCO2 61 H 59 H 56 H ABG pO2 207 H D 203 H 123 H D ABG HCO3 26 25 28 H ABG O2 Saturation 101 H 101 H 100 H ABG Base Excess -2 -3 2 VBG pH VBG pCO2 VBG pO2 VBG Base Excess 04/04/25 05:02 ABG pH 7.33 L ABG pCO2 51 H ABG pO2 114 H ABG HCO3 27 H ABG O2 Saturation 100 H ABG Base Excess 1 VBG pH VBG pCO2 VBG pO2 VBG Base Excess Quality Measures Quality Measures VTE prophylaxis Assessment & Plan Assessment Current Active Medications: Generic Name Dose Route Start Last Admin Trade Name Freq PRN Reason Stop Dose Admin Acetaminophen 650 mg 03/20/25 11:35 03/21/25 06:39 Acetaminophen 325 Mg Tablet PO 04/19/25 11:34 650 mg Q6HR PRN Administration pain and Fever >100.4 Protocol Hydrocodone Bitart/Acetaminophen 1 tab 04/04/25 11:48 04/05/25 22:32 Hydrocodone/Apap 10/325 Tab PO 04/09/25 11:47 1 tab Q6HR PRN Administration PAIN SCALE 4-6 (Moderate Amiodarone HCl 200 mg 04/05/25 09:00 04/06/25 08:04 Amiodarone Hcl 200 Mg Tablet PO 05/05/25 08:59 200 mg BID MONTSERRAT Administration Artificial Tears 0 drop 04/04/25 21:37 04/04/25 21:53 Artificial Tears 225 Drop/15 Ml Btl BOTH EYES 05/04/25 21:36 2 drop PRN PRN Administration TO KEEP EYES MOIST Aspirin 81 mg 04/03/25 12:00 04/06/25 08:04 Aspirin Ec 81 Mg Tabec PO 05/03/25 11:59 81 mg QDAY MONTSERRAT Administration Dextrose 25 ml 04/01/25 04:32 Dextrose 50%-Water Inj 50 Ml Syringe IV 05/01/25 04:31 Q15MIN PRN BG 50-70 responsive npo pt Dextrose 50 ml 04/01/25 04:32 04/01/25 05:21 Dextrose 50%-Water Inj 50 Ml Syringe IV 05/01/25 04:31 50 ml Q15MIN PRN Administration BG <50 OR BG <70 & pt unresponsive Diltiazem HCl 120 mg 03/30/25 09:00 04/01/25 10:20 Diltiazem Cd 120 Mg Capcr PO 04/29/25 08:59 Not Given QDAY MONTSERRAT Glucagon 1 mg 04/01/25 04:32 Glucagon Inj 1 Mg Vial IM Q15MIN PRN BG <70, and no IV access Heparin Sodium (Porcine) 5,000 unit 03/23/25 21:00 04/03/25 10:05 Heparin Sod Inj 5000 Unit/Ml Vial SC 04/06/25 20:59 5,000 unit Q12HR MONTSERRAT Administration Heparin Sodium (Porcine) 3,800 unit 03/30/25 08:26 04/04/25 12:54 Heparin Sod Inj 1000 Unit/Ml Vial 10 Ml INDWELLCAT 04/13/25 08:25 3,800 unit PRN PRN Administration DIALYSIS Hydromorphone HCl 1 mg 04/06/25 08:00 Hydromorphone Inj 2 Mg/Ml Vial IVP 04/08/25 14:49 Q4HR PRN BREAKTHROUGH PAIN 7-10 Albumin Human 25 gm in 100 mls @ 100 mls/hr 04/01/25 07:37 04/02/25 09:00 Albuminar-25 Ivpb IV Infused PRN PRN Infusion DIALYSIS Daptomycin 500 mg/ Sodium 60 mls @ 120 mls/hr 04/01/25 15:00 04/05/25 16:44 Chloride 10 ml/ Sodium IV 04/08/25 14:59 120 mls/hr Chloride QOD@1500 MONTSERRAT Administration Protocol Piperacillin Sod/Tazobactam 100 mls @ 200 mls/hr 04/02/25 15:29 04/06/25 08:05 Sod 4.5 gm/ Sodium Chloride IV 04/09/25 15:28 200 mls/hr Q12HR MONTSERRAT Administration Insulin Human Lispro 0 unit 04/02/25 17:00 04/06/25 07:30 Insulin Lispro (Admelog) 1 Unit/0.01 Ml Unit SC 05/02/25 16:59 Not Given ACHS MONTSERRAT Protocol Levalbuterol HCl 0.31 mg 03/28/25 10:24 03/31/25 00:37 Levalbuterol Rt 0.31 Mg/3 Ml Nebu INH 04/19/25 12:14 0.31 mg Q6HRRT PRN Administration Wheezing Lorazepam 1 mg 04/01/25 08:11 Lorazepam 2 Mg/Ml Vial IVP Q5MIN PRN seizure Morphine Sulfate 15 mg 04/05/25 14:30 04/06/25 08:05 Morphine Sulf 15 Mg Tabcr PO 04/10/25 14:29 15 mg Q12HR MONTSERRAT Administration Protocol Ondansetron HCl 4 mg 03/14/25 17:31 03/30/25 01:39 Ondansetron Inj 2 Mg/Ml Inj 2 Ml IV 04/13/25 17:30 4 mg Q6H PRN Administration NAUSEA OR VOMITING Protocol Pantoprazole Sodium 40 mg 03/31/25 09:00 04/06/25 08:06 Pantoprazole Inj 40 Mg Vial IVP 04/30/25 08:59 40 mg QDAY MONTSERRAT Administration Polyethylene Glycol 17 gm 03/26/25 18:00 04/06/25 08:04 Polyethylene Glycol 17 Gm Packet PO 04/25/25 17:59 17 gm QDAY MONTSERRAT Administration Sennosides 1 tab 03/26/25 18:00 04/06/25 08:05 Senna Tablet PO 04/25/25 17:59 1 tab QDAY MONTSERRAT Administration Protocol Sevelamer Carbonate 800 mg 04/03/25 12:00 04/06/25 08:04 Sevelamer Carbonate 800 Mg Tablet PO 05/03/25 11:59 800 mg TIDWM MONTSERRAT Administration Sodium Chloride 3 ml 03/31/25 06:26 Sodium Cl Rt Marjorie 3% 4 Ml Nebu (Non-Formulary) INH 04/16/25 18:59 Q6HRRT PRN To induce cough Plan Assessment and Plan: Summary: Mr. Mcclain is a 49 years old male with PMH of DM2, hypertension, ESRD (HD ), HFpEF (EF 55% on 2021), and right BKA due to osteomyelitis BIBA to the ED due to AMS, was intubated and started on pressors and was admitted to the ICU on 03/14/2025 for management of shock of unknown etiology and was started on IV antibiotics. On 03/17 his sputum culture grew stenotrophomonas maltophilia and antibiotics were changed to levofloxacin. He was extubated and downgraded to telemetry on 03/20/2025 for continuation of care. # End-stage renal disease Patient received CRRT in intensive care unit, was transition to hemodialysis. Patient will need a line holiday and placement of due to underlying bacteremia. Primary team to hold aspirin and Plavix, catheter will be exchanged in a.m. possibly Patient received permanent tunneled dialysis catheter placement on 03/26/2025. Plan: - Continue with hemodialysis inpatient, received dialysis in for two consecutive days had 2.7 L removed, scheduled for dialysis today. - Avoid nephrotoxic agent - Renally dose medications. #Staph Hemolyticus bacteremia #CLABSI Patient tested for gram-positive cocci (staph hymolyticus ) 2/2 blood blood cultures on 03/21/2025 -Mx as per primrary team #Acute blood loss Anemia #Hematemesis. #Macrocytic anemia. #Thrombocytopenia. Hemoglobin 7.9, RBC 2.48, hematocrit 25%, MCV 101, platelets 131 today - Management as per primary team #HFrEF (EF 50-55% on 2024) #A-fib with RVR, rate controlled, MAT, SVT #Troponinemia - resolved Patient had improved ejection fraction compared to the echocardiogram from a week ago, cardiology is consulted. - Management as per primary team and cardiology #Possible acute vs chronic limb ischemia. #Peripheral Vascular disease, severe Patient has severe vascular disease, case was discussed by ICU team with a vascular surgeon at [facility] Patient is poor candidate for surgery per documentation Patient was evaluated by dictating machine mechanic had cardiac catheterization and upper and lower extremity angiogram done. Per cardiology patient has disease in right lower limb, otherwise no significant PAD noted. Cardiology recommends amputation by general surgery orthopedics consulted as well #Acute hypoxic respiratory failure, improved. #Stenotrophomonas maltophilia pneumonia. #Respiratory acidosis, resolved. #Septic shock, resolved. - Management as per primary team #Transaminitis. #Hyperbilirubinemia #Hepatomegaly. #Hx of DM2. #Hypoglycemia, resolved. -Management per primary team Case discussed with Attending Dr. Pleitez. Marycarmen Clark PGY1 Disclaimer: This note was dictated by speech recognition. Minor errors in candy cooker helper may be present due to voice recognition software. Attending Provider Attestation/Addendum Pt is seen and examined labs are reviewed Agree with assessment and plan by resident Héctor Pleitez MD
[2025-04-06] MEDS: HYDROcodone/APAP 10/325 TAB PO ×2 (12:40→21:15)
--- NOTE | 2025-04-06 13:39 | ESPR_ITS ---
<Statement entered by Yanci Villalobos MD - 04/09/25 07:50> I personally examined the patient evaluate the patient underwent amputation successfully. No arrhythmias infection also controlled well patient is clinically stable did not have any habitation for digits since hand surgery is not available here patient will require that later on. Patient remains in A-fib rate controlled well cardiovascular status is stable monitor the patient closely for further arrhythmias and rapid heart rate. Evaluate the patient with Dr. Wilkinson PGY2 agree with the treatment plan recommendation as documented Documentation for date of: 04/06/25 Subjective Subjective Interval history: Patient was seen and examined at bedside. No acute overnight events. He continues to complain of pain in his right hand. Patient will not have surgery during this admission and will need to follow-up outpatient, primary team is working on optimizing his pain control and he will be able soon discharged to SNF. Patient will need to be on Eliquis prior to discharge. Exam Vital Signs Temp Pulse Resp BP Pulse Ox O2 Del Method O2 Flow Rate 97.3 F 80 17 142/74 H 94 L Nasal Cannula 3 04/06/25 12:30 04/06/25 12:30 04/06/25 12:30 04/06/25 12:30 04/06/25 12:30 04/06/25 12:30 04/06/25 12:30 FiO2 50 04/06/25 09:03 Narrative Exam Gen: Well-developed male. HEENT: NCAT, PERRLA, EOMI, MMM, anicteric conjunctivae. CVS: normal S1 and S2. RRR. No M/R/G. Resp: CTA B/L. No rhonchi, rales, crackles or wheezing. Abd: soft, non-tender, non-distended. BS+ in all 4 quadrants. MSK: S/p right BKA, stump appears necrotic, right thigh has blister. S/p left BKA, clean dressing. Dry gangrene over right 2nd and 3rd digits. Tip of left second digit appears necrotic. Neuro: CN II-XII grossly intact. Alert and oriented x3. Psych: appropriate mood and affect. Objective Labs 04/06/25 05:26 04/06/25 05:26 Labs: Laboratory Results - last 24 hr 04/06/25 05:26 WBC 7.6 RBC 2.28 L Hgb 7.2 L Hct 22.7 L MCV 100 MCH 31.6 MCHC 31.7 RDW Std Deviation 64.1 H Plt Count 126 L Neut % (Auto) 64 Lymph % (Auto) 14 [place] % (Auto) 11 Eos % (Auto) 3 Baso % (Auto) 1 Neut # (Auto) 4.8 Lymph # (Auto) 1.1 [place] # (Auto) 0.8 Eos # (Auto) 0.3 Baso # (Auto) 0.1 Immature Gran # (Auto) 0.52 H Absolute Nucleated RBC 0.00 Immature Gran % 7 H Nucleated RBC % 0 Sodium 138 Potassium 4.0 Chloride 100 Carbon Dioxide 28.2 Anion Gap 10 BUN 33 H Creatinine 3.9 H Estim Creat Clear Calc 30.1 L eGFR 18 L BUN/Creatinine Ratio 8 L Glucose 112 H Calculated Osmolality 283 Calcium 7.5 L Corrected Calcium 8.4 L Phosphorus 5.1 Magnesium 1.9 Total Bilirubin 0.4 AST 11 ALT 16 Alkaline Phosphatase 77 Total Protein 5.5 L Albumin 2.9 L Globulin 2.6 Albumin/Globulin Ratio 1.1 L ABG Interpretation ABG results: 03/14/25 03/14/25 03/14/25 14:44 16:44 18:53 ABG pH 7.03 L* 7.04 L* 7.10 L* ABG pCO2 43 50 H 46 ABG pO2 86 128 H D 57 L* D ABG HCO3 11 L 13 L 14 L ABG O2 Saturation 91 97 78 L ABG Base Excess -19 L -17 L -15 L VBG pH VBG pCO2 VBG pO2 VBG Base Excess 03/14/25 03/15/25 03/15/25 21:20 05:07 12:28 ABG pH 7.21 L D 7.41 D ABG pCO2 32 D 31 L ABG pO2 116 H D 74 L D ABG HCO3 13 L 20 ABG O2 Saturation 97 95 ABG Base Excess -14 L -4 L VBG pH 7.43 VBG pCO2 34 L VBG pO2 37 VBG Base Excess -1 03/16/25 03/16/25 03/16/25 04:51 11:48 19:30 ABG pH 7.46 H 7.22 L D 7.38 D ABG pCO2 29 L 66 H D 48 D ABG pO2 78 L 79 L 236 H D ABG HCO3 21 27 H 29 H ABG O2 Saturation 96 91 100 H ABG Base Excess -2 -2 3 VBG pH VBG pCO2 VBG pO2 VBG Base Excess 03/17/25 03/18/25 03/19/25 04:53 09:27 04:46 ABG pH 7.38 7.35 ABG pCO2 49 H 48 ABG pO2 78 L D 92 ABG HCO3 29 H 26 ABG O2 Saturation 95 98 ABG Base Excess 3 0 VBG pH 7.34 VBG pCO2 54 D VBG pO2 34 VBG Base Excess 2 03/24/25 04/01/25 04/01/25 22:00 04:53 15:50 ABG pH 7.33 L 7.23 L ABG pCO2 48 62 H ABG pO2 233 H 102 ABG HCO3 25 26 ABG O2 Saturation 101 H 98 ABG Base Excess -1 -2 VBG pH 7.24 L VBG pCO2 57 H VBG pO2 51 VBG Base Excess -3 04/01/25 04/02/25 04/03/25 18:40 04:45 05:17 ABG pH 7.24 L 7.24 L 7.31 L ABG pCO2 61 H 59 H 56 H ABG pO2 207 H D 203 H 123 H D ABG HCO3 26 25 28 H ABG O2 Saturation 101 H 101 H 100 H ABG Base Excess -2 -3 2 VBG pH VBG pCO2 VBG pO2 VBG Base Excess 04/04/25 05:02 ABG pH 7.33 L ABG pCO2 51 H ABG pO2 114 H ABG HCO3 27 H ABG O2 Saturation 100 H ABG Base Excess 1 VBG pH VBG pCO2 VBG pO2 VBG Base Excess Quality Measures Quality Measures VTE prophylaxis Assessment & Plan Assessment Current Active Medications: Generic Name Dose Route Start Last Admin Trade Name Freq PRN Reason Stop Dose Admin Acetaminophen 650 mg 03/20/25 11:35 03/21/25 06:39 Acetaminophen 325 Mg Tablet PO 04/19/25 11:34 650 mg Q6HR PRN Administration pain and Fever >100.4 Protocol Hydrocodone Bitart/Acetaminophen 1 tab 04/04/25 11:48 04/06/25 12:40 Hydrocodone/Apap 10/325 Tab PO 04/09/25 11:47 1 tab Q6HR PRN Administration PAIN SCALE 4-6 (Moderate Amiodarone HCl 200 mg 04/05/25 09:00 04/06/25 08:04 Amiodarone Hcl 200 Mg Tablet PO 05/05/25 08:59 200 mg BID MON[place]AT Administration Artificial Tears 0 drop 04/04/25 21:37 04/04/25 21:53 Artificial Tears 225 Drop/15 Ml Btl BOTH EYES 05/04/25 21:36 2 drop PRN PRN Administration TO KEEP EYES MOIST Aspirin 81 mg 04/03/25 12:00 04/06/25 08:04 Aspirin Ec 81 Mg Tabec PO 05/03/25 11:59 81 mg QDAY [place] Administration Dextrose 25 ml 04/01/25 04:32 Dextrose 50%-Water Inj 50 Ml Syringe IV 05/01/25 04:31 Q15MIN PRN BG 50-70 responsive npo pt Dextrose 50 ml 04/01/25 04:32 04/01/25 05:21 Dextrose 50%-Water Inj 50 Ml Syringe IV 05/01/25 04:31 50 ml Q15MIN PRN Administration BG <50 OR BG <70 & pt unresponsive Diltiazem HCl 120 mg 03/30/25 09:00 04/01/25 10:20 Diltiazem Cd 120 Mg Capcr PO 04/29/25 08:59 Not Given QDAY [place] Glucagon 1 mg 04/01/25 04:32 Glucagon Inj 1 Mg Vial IM Q15MIN PRN BG <70, and no IV access Heparin Sodium (Porcine) 5,000 unit 03/23/25 21:00 04/03/25 10:05 Heparin Sod Inj 5000 Unit/Ml Vial SC 04/06/25 20:59 5,000 unit Q12HR [place] Administration Heparin Sodium (Porcine) 3,800 unit 03/30/25 08:26 04/04/25 12:54 Heparin Sod Inj 1000 Unit/Ml Vial 10 Ml INDWELLCAT 04/13/25 08:25 3,800 unit PRN PRN Administration DIALYSIS Hydromorphone HCl 1 mg 04/06/25 08:00 Hydromorphone Inj 2 Mg/Ml Vial IVP 04/08/25 14:49 Q4HR PRN BREAKTHROUGH PAIN 7-10 Albumin Human 25 gm in 100 mls @ 100 mls/hr 04/01/25 07:37 04/02/25 09:00 Albuminar-25 Ivpb IV Infused PRN PRN Infusion DIALYSIS Daptomycin 500 mg/ Sodium 60 mls @ 120 mls/hr 04/01/25 15:00 04/05/25 16:44 Chloride 10 ml/ Sodium IV 04/08/25 14:59 120 mls/hr Chloride QOD@1500 [place] Administration Protocol Piperacillin Sod/Tazobactam 100 mls @ 200 mls/hr 04/02/25 15:29 04/06/25 08:05 Sod 4.5 gm/ Sodium Chloride IV 04/09/25 15:28 200 mls/hr Q12HR [place] Administration Insulin Human Lispro 0 unit 04/02/25 17:00 04/06/25 12:37 Insulin Lispro (Admelog) 1 Unit/0.01 Ml Unit SC 05/02/25 16:59 Not Given ACHS [place]AT Protocol Levalbuterol HCl 0.31 mg 03/28/25 10:24 03/31/25 00:37 Levalbuterol Rt 0.31 Mg/3 Ml Nebu INH 04/19/25 12:14 0.31 mg Q6HRRT PRN Administration Wheezing Lorazepam 1 mg 04/01/25 08:11 Lorazepam 2 Mg/Ml Vial IVP Q5MIN PRN seizure Morphine Sulfate 15 mg 04/05/25 14:30 04/06/25 08:05 Morphine Sulf 15 Mg Tabcr PO 04/10/25 14:29 15 mg Q12HR [place] Administration Protocol Ondansetron HCl 4 mg 03/14/25 17:31 03/30/25 01:39 Ondansetron Inj 2 Mg/Ml Inj 2 Ml IV 04/13/25 17:30 4 mg Q6H PRN Administration NAUSEA OR VOMITING Protocol Pantoprazole Sodium 40 mg 03/31/25 09:00 04/06/25 08:06 Pantoprazole Inj 40 Mg Vial IVP 04/30/25 08:59 40 mg QDAY [place] Administration Polyethylene Glycol 17 gm 03/26/25 18:00 04/06/25 08:04 Polyethylene Glycol 17 Gm Packet PO 04/25/25 17:59 17 gm QDAY [place] Administration Sennosides 1 tab 03/26/25 18:00 04/06/25 08:05 Senna Tablet PO 04/25/25 17:59 1 tab QDAY [place] Administration Protocol Sevelamer Carbonate 800 mg 04/03/25 12:00 04/06/25 12:36 Sevelamer Carbonate 800 Mg Tablet PO 05/03/25 11:59 800 mg TIDWM [place] Administration Sodium Chloride 3 ml 03/31/25 06:26 Sodium Cl Rt Marjorie 3% 4 Ml Nebu (Non-Formulary) INH 04/16/25 18:59 Q6HRRT PRN To induce cough Plan 49-year-old male with past medical history of DM2, hypertension, ESRD (HD ), HFpEF (EF 55% on 2021), and right BKA due to osteomyelitis was initially admitted to the ICU on 03/14/2025 for acute hypoxic respiratory failure, acute encephalopathy, and shock. He was subsequently extubated and downgraded to telemetry on 03/20/2025 for continuation of care. #Status post acute non-ST segment elevation myocardial infarction, NSTEMI possible type 2 troponin versus NSTEMI. #SVT episodes. #Afib, rate controlled. #Decompensated HFpEF (EF 45-50%). Patient s/p intubation and pressor support in ICU for shock, distributive secondary to sepsis versus cardiogenic. Patient initially presented to ED in SVT and required shock x1. Troponin initially 1.856 uptrended to 7.899 peak. Patient was treated for pneumonia. Patient was able to wean off pressors, extubated, now downgraded to tele. CT LER showed diffuse stenosis on the arteries of the LLE, occlusions in almost all major arteries. Echo done on 03/16/2025 showed LV appears normal with EF 45-50%. Septal dyskinesis is seen, RV appears normal with RVSP 50 mmHg. Mildly dilated LA & RA Mild mitral regurgitation Mild-Moderate TR. 03/21, patient had 2 rapid response events for SVT in the 170-200s which self converted in minutes. 04/01 patient had 2 rapid response calls due to episodes of SVT, was started on amiodarone drip and subsequently underwent electrical cardioversion in ICU. Plan: - continue amiodarone PO. - diltiazem Cd 120 mg daily discontinue. - Maintain K >4.0 and Mag >2.0. - Continue dialysis per nephrology. #Extensive atherosclerotic cardiovascular disease with bilateral femoral artery occlusions and distal trifurcation disease with gangrenous changes, ruled out. #Vasopressor-induced vasoconstriction and gangrene of B/L fingers, sequelae. #Left foot gangrene, s/p BKA. -Patient has history of right extremity BKA due to severe PAD. This admission after severe shock requiring pressor support patient subsequently developed ischemia of the right and left fingertips. Vascular surgeon stated that the patient is not a candidate at this time for revascularization, however stated that would discuss case with general surgeon. Likely upper extremity digits affected by vasopressor support in combination with severe PAD causing limb ischemia. Angiography showed Normal, nonobstructive epicardial coronary arteries. Mild left ventricular dysfunction, ejection fraction 50%. Right ulnarl artery totally occluded with excellent flow from the radial artery. Left lower extremity angiogram showed widely patent SFA and trifurcation with distal dorsalis pedis 100% occlusion. Right lower extremity angiogram also showed no significant obstructive lesions until trifurcation( amputated BKA).Discontinued on aspirin, plavix and statin after angiography. Plan: - start on Eliquis 2.5 mg BID when possible, obtain general surgery recommendation regarding post op anticoagulation, continue aspirin for now. #Staph hemolyticus bacteremia. Patient tested for gram-positive cocci 2/2 blood cultures on 03/21/2025, first positive blood cultures this admission. Patient has not been febrile, however has had persistent leukocytosis. Patient subsequently getting all lines removed after receiving dialysis. -Repeat echo on 03/23- Aortic valve leaflets with sclerosis calcification thickening of the cusp but no stenosis. No evidence of vegetation detected. Mitral valve annular show mild calcification mitral leaflets with thickening regurgitations.Left atrium appears to be mildly dilated.Left ventricle is normal with evidence of mild anteroseptal hypokinesis with well-preserved ejection fraction of 50 to 55%. Right heart structures normal. Mild tricuspid regurgitation with no evidence of pulmonary hypertension normal PA pressures. Tricuspid and pulmonic valves appear normal no vegetations. Compared to the study a week ago no change except some improvement in LV function. Repeat blood cultures is negative. HD catheter was exchanged. Plan: -Continue vancomycin and daptomycin IV as per ID recs. Rest of conditions to continue current management per primary team: #Septic shock, resolved. #Acute hypoxic respiratory failure. #Community-acquired pneumonia, Stenotrophomonas maltophilia. #ESRD (HD on ). #History of type 2 diabetes. #Respiratory acidosis, resolved. #HAGMA, resolved. #Lactic acidosis, resolved. #Hyperkalemia, resolved. #Shock liver, resolved. #Possible GI bleed. #Macrocytic anemia. #Thrombocytopenia. #Hematemesis, resolved. #Hypoglycemia, resolved. Discussed the patient with my attending Dr Villalobos. Minh Smith MD, PGY 2. Disclaimer: This note was dictated by speech recognition. Minor errors in personalization specialist may be present due to voice recognition software.
--- NOTE | 2025-04-06 14:28 | ESPR_ITS ---
<Statement entered by Mindy Hawthorne MD - 04/06/25 16:48> Patient seen and examined at bedside. No acute overnight events reported. Patient responded well to oral morphine, and only asked for Dilaudid x 1. Patient's pain is well-controlled with her oral morphine, and will discontinue IV Dilaudid for breakthrough pain and continue with oral morphine and oral hydrocodone as needed. Unable to perform punch biopsy due to shortage of punch biopsy kits to evaluate for calciphylaxis. Patient also is pending PT evaluation, prior to authorization for [facility] facility. I discussed with and supervised the post graduate internship physician who took care of this patient. I personally saw and examined the patient and discussed the assessment and plan with the entire medicine team, including my attending Dr. Moore, I agree with most of the assessment and plan as documented below Mindy Hawthorne M.D. PGY-2 Disclaimer: Despite multiple revisions, due to the dictation software being used, the document bellow may not be free of grammatical errors including phonetic/typographic errors. However, this does not deter from our commitment to providing health care in the patient's best interest in mind. Documentation for date of: 04/06/25 Subjective Subjective Interval history: Patient was seen and examined at bedside this morning. No acute overnight events. Patient's vitals remained stable and hemoglobin is stable at 7.2. Patient stated that his pain is better controlled with the oral morphine extended release which was started yesterday. Patient did have a little bit more serosanguineous discharge coming from his amputation site. He had no other complaints at this time. Exam Vital Signs Temp Pulse Resp BP Pulse Ox O2 Del Method O2 Flow Rate 97.3 F 80 17 142/74 H 94 L Nasal Cannula 3 04/06/25 12:30 04/06/25 12:30 04/06/25 12:30 04/06/25 12:30 04/06/25 12:30 04/06/25 12:30 04/06/25 12:30 FiO2 50 04/06/25 09:03 Narrative Exam General: AO x 3, no acute distress Eyes: Pupils reactive to light, EOMI, vision intact Ears: No visible ear discharge Nose: No visible nasal discharge. Mouth/Throat: Moist mucous membranes, no redness, no lesions. Neck: Neck supple, no cervical lymphadenopathy. Lungs: Clear CHRISTIANO Cardio: Normal S1/S2, irregular, no murmurs, no JVD Abdomen: Soft, non-tender, no palpable masses, peristalsis present, no guarding or rebound Extremities: Right BKA with cyanotic changes which have slightly improved, left distal leg amputation above ankle level with some more serosanguineous discharge today present, right upper extremity digits show necrotic changes at the tips and extending proximally. Skin: Right upper extremity digits show necrotic changes at the tips with some bullae Neuro: No focal neurological deficits, motor and sensory intact Objective Labs 04/06/25 15:04 04/06/25 05:26 Labs: Laboratory Results - last 24 hr 04/06/25 05:26 WBC 7.6 RBC 2.28 L Hgb 7.2 L Hct 22.7 L MCV 100 MCH 31.6 MCHC 31.7 RDW Std Deviation 64.1 H Plt Count 126 L Neut % (Auto) 64 Lymph % (Auto) 14 [place] % (Auto) 11 Eos % (Auto) 3 Baso % (Auto) 1 Neut # (Auto) 4.8 Lymph # (Auto) 1.1 [place] # (Auto) 0.8 Eos # (Auto) 0.3 Baso # (Auto) 0.1 Immature Gran # (Auto) 0.52 H Absolute Nucleated RBC 0.00 Immature Gran % 7 H Nucleated RBC % 0 Sodium 138 Potassium 4.0 Chloride 100 Carbon Dioxide 28.2 Anion Gap 10 BUN 33 H Creatinine 3.9 H Estim Creat Clear Calc 30.1 L eGFR 18 L BUN/Creatinine Ratio 8 L Glucose 112 H Calculated Osmolality 283 Calcium 7.5 L Corrected Calcium 8.4 L Phosphorus 5.1 Magnesium 1.9 Total Bilirubin 0.4 AST 11 ALT 16 Alkaline Phosphatase 77 Total Protein 5.5 L Albumin 2.9 L Globulin 2.6 Albumin/Globulin Ratio 1.1 L ABG Interpretation ABG results: 03/14/25 03/14/25 03/14/25 14:44 16:44 18:53 ABG pH 7.03 L* 7.04 L* 7.10 L* ABG pCO2 43 50 H 46 ABG pO2 86 128 H D 57 L* D ABG HCO3 11 L 13 L 14 L ABG O2 Saturation 91 97 78 L ABG Base Excess -19 L -17 L -15 L VBG pH VBG pCO2 VBG pO2 VBG Base Excess 03/14/25 03/15/25 03/15/25 21:20 05:07 12:28 ABG pH 7.21 L D 7.41 D ABG pCO2 32 D 31 L ABG pO2 116 H D 74 L D ABG HCO3 13 L 20 ABG O2 Saturation 97 95 ABG Base Excess -14 L -4 L VBG pH 7.43 VBG pCO2 34 L VBG pO2 37 VBG Base Excess -1 03/16/25 03/16/25 03/16/25 04:51 11:48 19:30 ABG pH 7.46 H 7.22 L D 7.38 D ABG pCO2 29 L 66 H D 48 D ABG pO2 78 L 79 L 236 H D ABG HCO3 21 27 H 29 H ABG O2 Saturation 96 91 100 H ABG Base Excess -2 -2 3 VBG pH VBG pCO2 VBG pO2 VBG Base Excess 03/17/25 03/18/25 03/19/25 04:53 09:27 04:46 ABG pH 7.38 7.35 ABG pCO2 49 H 48 ABG pO2 78 L D 92 ABG HCO3 29 H 26 ABG O2 Saturation 95 98 ABG Base Excess 3 0 VBG pH 7.34 VBG pCO2 54 D VBG pO2 34 VBG Base Excess 2 03/24/25 04/01/25 04/01/25 22:00 04:53 15:50 ABG pH 7.33 L 7.23 L ABG pCO2 48 62 H ABG pO2 233 H 102 ABG HCO3 25 26 ABG O2 Saturation 101 H 98 ABG Base Excess -1 -2 VBG pH 7.24 L VBG pCO2 57 H VBG pO2 51 VBG Base Excess -3 04/01/25 04/02/25 04/03/25 18:40 04:45 05:17 ABG pH 7.24 L 7.24 L 7.31 L ABG pCO2 61 H 59 H 56 H ABG pO2 207 H D 203 H 123 H D ABG HCO3 26 25 28 H ABG O2 Saturation 101 H 101 H 100 H ABG Base Excess -2 -3 2 VBG pH VBG pCO2 VBG pO2 VBG Base Excess 04/04/25 05:02 ABG pH 7.33 L ABG pCO2 51 H ABG pO2 114 H ABG HCO3 27 H ABG O2 Saturation 100 H ABG Base Excess 1 VBG pH VBG pCO2 VBG pO2 VBG Base Excess Quality Measures Quality Measures VTE prophylaxis Assessment & Plan Assessment Current Active Medications: Generic Name Dose Route Start Last Admin Trade Name Freq PRN Reason Stop Dose Admin Acetaminophen 650 mg 03/20/25 11:35 03/21/25 06:39 Acetaminophen 325 Mg Tablet PO 04/19/25 11:34 650 mg Q6HR PRN Administration pain and Fever >100.4 Protocol Hydrocodone Bitart/Acetaminophen 1 tab 04/04/25 11:48 04/06/25 12:40 Hydrocodone/Apap 10/325 Tab PO 04/09/25 11:47 1 tab Q6HR PRN Administration PAIN SCALE 4-6 (Moderate Amiodarone HCl 200 mg 04/05/25 09:00 04/06/25 08:04 Amiodarone Hcl 200 Mg Tablet PO 05/05/25 08:59 200 mg BID MONTSERRAT Administration Artificial Tears 0 drop 04/04/25 21:37 04/04/25 21:53 Artificial Tears 225 Drop/15 Ml Btl BOTH EYES 05/04/25 21:36 2 drop PRN PRN Administration TO KEEP EYES MOIST Aspirin 81 mg 04/03/25 12:00 04/06/25 08:04 Aspirin Ec 81 Mg Tabec PO 05/03/25 11:59 81 mg QDAY MONTSERRAT Administration Dextrose 25 ml 04/01/25 04:32 Dextrose 50%-Water Inj 50 Ml Syringe IV 05/01/25 04:31 Q15MIN PRN BG 50-70 responsive npo pt Dextrose 50 ml 04/01/25 04:32 04/01/25 05:21 Dextrose 50%-Water Inj 50 Ml Syringe IV 05/01/25 04:31 50 ml Q15MIN PRN Administration BG <50 OR BG <70 & pt unresponsive Diltiazem HCl 120 mg 03/30/25 09:00 04/01/25 10:20 Diltiazem Cd 120 Mg Capcr PO 04/29/25 08:59 Not Given QDAY MONTSERRAT Glucagon 1 mg 04/01/25 04:32 Glucagon Inj 1 Mg Vial IM Q15MIN PRN BG <70, and no IV access Heparin Sodium (Porcine) 5,000 unit 03/23/25 21:00 04/03/25 10:05 Heparin Sod Inj 5000 Unit/Ml Vial SC 04/06/25 20:59 5,000 unit Q12HR MONTSERRAT Administration Heparin Sodium (Porcine) 3,800 unit 03/30/25 08:26 04/04/25 12:54 Heparin Sod Inj 1000 Unit/Ml Vial 10 Ml INDWELLCAT 04/13/25 08:25 3,800 unit PRN PRN Administration DIALYSIS Hydromorphone HCl 1 mg 04/06/25 08:00 Hydromorphone Inj 2 Mg/Ml Vial IVP 04/08/25 14:49 Q4HR PRN BREAKTHROUGH PAIN 7-10 Albumin Human 25 gm in 100 mls @ 100 mls/hr 04/01/25 07:37 04/02/25 09:00 Albuminar-25 Ivpb IV Infused PRN PRN Infusion DIALYSIS Daptomycin 500 mg/ Sodium 60 mls @ 120 mls/hr 04/01/25 15:00 04/05/25 16:44 Chloride 10 ml/ Sodium IV 04/08/25 14:59 120 mls/hr Chloride QOD@1500 MONTSERRAT Administration Protocol Piperacillin Sod/Tazobactam 100 mls @ 200 mls/hr 04/02/25 15:29 04/06/25 08:05 Sod 4.5 gm/ Sodium Chloride IV 04/09/25 15:28 200 mls/hr Q12HR MONTSERRAT Administration Insulin Human Lispro 0 unit 04/02/25 17:00 04/06/25 12:37 Insulin Lispro (Admelog) 1 Unit/0.01 Ml Unit SC 05/02/25 16:59 Not Given ACHS MONTSERRAT Protocol Levalbuterol HCl 0.31 mg 03/28/25 10:24 03/31/25 00:37 Levalbuterol Rt 0.31 Mg/3 Ml Nebu INH 04/19/25 12:14 0.31 mg Q6HRRT PRN Administration Wheezing Lorazepam 1 mg 04/01/25 08:11 Lorazepam 2 Mg/Ml Vial IVP Q5MIN PRN seizure Morphine Sulfate 15 mg 04/05/25 14:30 04/06/25 08:05 Morphine Sulf 15 Mg Tabcr PO 04/10/25 14:29 15 mg Q12HR MONTSERRAT Administration Protocol Ondansetron HCl 4 mg 03/14/25 17:31 03/30/25 01:39 Ondansetron Inj 2 Mg/Ml Inj 2 Ml IV 04/13/25 17:30 4 mg Q6H PRN Administration NAUSEA OR VOMITING Protocol Pantoprazole Sodium 40 mg 03/31/25 09:00 04/06/25 08:06 Pantoprazole Inj 40 Mg Vial IVP 04/30/25 08:59 40 mg QDAY MONTSERRAT Administration Polyethylene Glycol 17 gm 03/26/25 18:00 04/06/25 08:04 Polyethylene Glycol 17 Gm Packet PO 04/25/25 17:59 17 gm QDAY MONTSERRAT Administration Sennosides 1 tab 03/26/25 18:00 04/06/25 08:05 Senna Tablet PO 04/25/25 17:59 1 tab QDAY MONTSERRAT Administration Protocol Sevelamer Carbonate 800 mg 04/03/25 12:00 04/06/25 12:36 Sevelamer Carbonate 800 Mg Tablet PO 05/03/25 11:59 800 mg TIDWM MONTSERRAT Administration Sodium Chloride 3 ml 03/31/25 06:26 Sodium Cl Rt Marjorie 3% 4 Ml Nebu (Non-Formulary) INH 04/16/25 18:59 Q6HRRT PRN To induce cough Plan 49-year-old male with past medical history of DM2, hypertension, ESRD (HD ), HFpEF (EF 55% on 2021), and right BKA due to osteomyelitis was admitted to the ICU on 03/14/2025 for acute hypoxic respiratory failure, acute encephalopathy, and shock. He was extubated and downgraded to telemetry on 03/20/2025. #Right ulnar artery occlusion #Right upper extremity multiple digit necrosis #Left lower extremity gangrene/tissue necrosis s/p guillotine amputation distal #Peripheral Vascular disease, severe Abdomen CTA with runoff that showed occlusion of multiple arteries including the left radial, gluteal, and tibial arteries as well as 90% stenosis of the left superficial femoral artery Also showed 80% stenosis of right superficial femoral artery. Patient had his angiogram done yesterday showed right ulnar artery to be totally occluded or absent and there was no CAD. 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 Patient again went into SVT and received adenosine 6mg x1 and adenosine 12mg x1 before being cardioverted. Repeat EKG showed what appears to be MAT. [id number] score of 3 points indicating 3.2% risk of stroke per year HAS-BLED score of 5 points Patient had his angiogram done 03/31/2025 showed right ulnar artery to be totally occluded or absent and there was no CAD. Cardiology recommended to stop patient's aspirin, Plavix, metoprolol, and statin Patient had a rapid response called on 04/01/2025 was tachycardic in the 140s and EKG looked to be like a SVT. Patient was cardioverted and was then in the heart rates in the 60s. Plan: Continue amiodarone 200 mg twice daily Deferred anticoagulation given possibility of further surgical procedures Keep Potassium >4 and Mg >2 Gas Meter Repairer consulted, appreciate recommendations #HFpEF (EF 50-55% on 2024). Echo on 03/16/2025 showed EF of 45 to 50% and septal dyskinesis. Echo on 03/23/2025 shows some improvement and left ventricle function with an EF of 50 to 55% Plan: Will continue with hemodialysis with fluid removal. Daily weights. Strict JENN's. fluid restriction. #ESRD (HD on ). Patient was on hemodialysis and had AV fistula, but was clotted therefore cannot be used. Tunnedled dialysis cath placed 03/26/2025 Plan: Continue hemodialysis as scheduled. Continue sevelamer 800 mg 3 times daily [address]. Pleitez following, appreciate recommendations Avoid nephrotoxic agents. Renally dose medications. #Macrocytic anemia. #Thrombocytopenia, improving Patient's hemoglobin was downtrending from 11.9 on admission Hemoglobin 7.2 and platelets 126 No active signs of bleeding Plan: Will get H/H in afternoon Continue to monitor daily CBC Transfuse if Hgb less than 7. #Transaminitis, resolved #Hepatomegaly. Hepatitis panel negative and abdominal ultrasound that shows some hepatomegaly with possible cirrhosis versus hepatocellular disease. Plan: Continue monitoring daily labs #Hx of DM2. ISS. Hypoglycemia protocol ordered. #Acute Hypoxic resp failure in the setting of Left base PNA, improving #Stenotrophomonas maltophilia pneumonia, resolved . #Respiratory acidosis, resolved. #Septic shock, resolved. #Troponinemia, resolved #Hematemesis, resolved #HAGMA, resolved. #Lactic acidosis, resolved. #Staph Hemolyticus bacteremia, resolved (finished course of vancomycin 03/23- 04/05) #CLABSI, resolved #Hyperbilirubinemia, resolved Hospital Maintenance: Disposition: Pending PT eval and better pain control with PO medications Diet: renal DVT ppx: Heparin 5000 SC Q12H GI ppx: Protonix . Code status: DNR. Case disclosed with Attending Dr. Moore and my senior Dr. Hawthorne PGY2 Lito Lee PGY1 Attending Provider Attestation/Addendum I have discussed and was present for the essential components of the history, physical examination, diagnosis, and treatment plan with the resident. I agree with the patient's care as documented by the resident and amended herein by me. Collin Moore, DO. Patient seen and evaluated this AM. No acute events overnight, vital signs stable, patient afebrile significant labs include a low hemoglobin of 7.2 but relatively stable however will monitor closely, BUN 33, creatinine 3.9. Patient is at dialysis today, blood cultures NGTD, will continue to adjust p.o. morphine however patient already notices a big improvement in pain control since conversion to oral formulation. Will attempt to perform punch biopsy tomorrow for evaluation of calciphylaxis however we have been unable to obtain a punch biopsy thus far. Patient will continue hemodialysis while he is in the hospital however I believe he can be discharged tomorrow on 04/07 if he continues to improve pending specialist recommendations and further improvement. Although this document has been carefully reviewed, there may still be some phonetic and other typographical errors. These errors are purely grammatical due to imperfections in the software program and should not be construed in any way to compromise the substance of the patient's medical care during this visit.
[2025-04-06 15:37] LABS: Hematocrit 24.7 % (41.0-53.0)
[2025-04-06 15:41] LABS: Hemoglobin 7.4 g/dL (13.5-16.0)
[2025-04-07] VITALS (12 sets, daily range): BP systolic 100–146; BP diastolic 54–85; PULSE 63–77; RESP 11–96; TEMP 36.1–36.4; O2SAT 90–99; BMI 36.1
[2025-04-07 06:19] LABS: Basophils # (Auto) 0.1 Thou/mm3 (0.0-0.2); Basophils % (Auto) 1 % (0-2.5); Eosinophils # (Auto) 0.4 Thou/mm3 (0.0-0.5); Eosinophils % (Auto) 4 % (0-10); Hematocrit 23.9 % (41.0-53.0); Immature Granulocytes % (Auto) 7 % (0-0); Lymphocytes # (Auto) 1.1 Thou/mm3 (1.0-4.8); Lymphocytes % (Auto) 12 % (10-50); Mean Corpuscular HGB Conc 29.7 g/dl (31.0-37.0); Mean Corpuscular Volume 104 fL (80-100); Monocytes # (Auto) 0.9 Thou/mm3 (0.0-0.8); Monocytes % (Auto) 10 % (0-12); Neutrophils % (Auto) 67 % (37-80); Nucleated Red Blood Cell % 0 /100 WBC (0); Platelet Count 133 Thou/mm3 (140-440); RDW Standard Deviation 68.5 fL (35.1-43.9); Red Blood Count 2.29 Miln/mm3 (4.50-5.90)
[2025-04-07 06:26] LABS: Hemoglobin 7.1 g/dL (13.5-16.0)
[2025-04-07 06:47] LABS: Alanine Aminotransferase 13 U/L (10-49); Albumin, Serum 2.9 gm/dL (3.5-5.0); Albumin/Globulin Ratio 1.1 (1.2-2.2); Alkaline Phosphatase 76 U/L (46-116); Anion Gap 7 (7-16); Aspartate Amino Transferase < 8 U/L (0-34); BUN/Creatinine Ratio 8 Ratio (12-20); Bilirubin,Total 0.5 mg/dL (0.3-1.2); Blood Urea Nitrogen 30 mg/dL (9-23); Calcium 7.8 mg/dL (8.3-10.6); Calcium (Corrected) 8.7 mg/dL (8.5-10.1); Carbon Dioxide 30.7 mMol/L (20.0-31.0); Chloride 100 mMol/L (98-107); Creatinine (Component) 3.7 mg/dL (0.6-1.3); Estimated Creatinine Clearance 31.7 mL/min (>60); Globulin 2.7 gm/dL (2.3-3.5); Glucose 92 mg/dL (74-106); Osmolality,Calculated 281 (275-295); Phosphorous 5.1 mg/dL (2.4-5.1); Potassium 4.1 mMol/L (3.4-5.1); Sodium 138 mMol/L (136-145); Total Protein 5.6 gm/dL (5.7-8.2); eGFR 19 See Note
[2025-04-07] MEDS: SEVELAMER CARBONATE 800 MG TABLET PO ×3 (07:42→17:36)
[2025-04-07] MEDS: HYDROcodone/APAP 10/325 TAB PO ×2 (08:01→14:20)
[2025-04-07] MEDS: PIPER/TAZO INJ 4.5 GM in SODIUM CHLORIDE 0.9% (POP) 100 ML IV ×2 (08:30→20:35)
[2025-04-07] MEDS: POLYETHYLENE GLYCOL 17 GM PACKET PO (08:30)
[2025-04-07] MEDS: SENNA TABLET 1 TAB PO (08:30)
[2025-04-07] MEDS: AMIODARONE HCL 200 MG TABLET PO ×2 (08:30→20:36)
[2025-04-07] MEDS: PANTOPRAZOLE INJ 40 MG VIAL IVP (08:30)
[2025-04-07] MEDS: ASPIRIN EC 81 MG TABEC PO (08:31)
[2025-04-07] MEDS: Morphine Sulf 15 MG TABCR PO ×2 (08:33→20:35)
--- NOTE | 2025-04-07 09:39 | ESPR_ITS ---
Documentation for date of: 04/07/25 Subjective Subjective Interval history: Patient was seen and examined at bedside this morning. No acute overnight events. Patient's pain has been better controlled with morphine extended release and he has not required any Dilaudid for breakthrough pain. Patient has no new complaints at this time. He still has some copious serosanguineous discharge from his left lower extremity stump. Exam Vital Signs Temp Pulse Resp BP Pulse Ox O2 Del Method O2 Flow Rate 97.2 F 69 16 115/62 90 L Nasal Cannula 4 04/07/25 08:00 04/07/25 08:30 04/07/25 08:00 04/07/25 08:30 04/07/25 08:00 04/07/25 08:00 04/07/25 08:00 FiO2 50 04/06/25 09:03 Narrative Exam General: AO x 3, no acute distress Eyes: Pupils reactive to light, EOMI, vision intact Ears: No visible ear discharge Nose: No visible nasal discharge. Mouth/Throat: Moist mucous membranes, no redness, no lesions. Neck: Neck supple, no cervical lymphadenopathy. Lungs: Clear CHRISTAINO Cardio: Normal S1/S2, irregular, no murmurs, no JVD Abdomen: Soft, non-tender, no palpable masses, peristalsis present, no guarding or rebound Extremities: Right BKA with cyanotic changes which have slightly improved, left distal leg amputation above ankle level with still serosanguineous discharge present, right upper extremity digits show necrotic changes at the tips and extending proximally. Skin: Right upper extremity digits show necrotic changes at the tips with some bullae Neuro: No focal neurological deficits, motor and sensory intact Objective Labs 04/08/25 04:55 04/08/25 04:55 Labs: Laboratory Results - last 24 hr 04/06/25 04/07/25 15:04 05:50 WBC 9.0 RBC 2.29 L Hgb 7.4 L 7.1 L Hct 24.7 L 23.9 L MCV 104 H MCH 31.0 MCHC 29.7 L RDW Std Deviation 68.5 H Plt Count 133 L Neut % (Auto) 67 Lymph % (Auto) 12 Pickett % (Auto) 10 Eos % (Auto) 4 Baso % (Auto) 1 Neut # (Auto) 6.0 Lymph # (Auto) 1.1 Pickett # (Auto) 0.9 H Eos # (Auto) 0.4 Baso # (Auto) 0.1 Immature Gran # (Auto) 0.60 H Absolute Nucleated RBC 0.00 Immature Gran % 7 H Nucleated RBC % 0 Sodium 138 Potassium 4.1 Chloride 100 Carbon Dioxide 30.7 Anion Gap 7 BUN 30 H Creatinine 3.7 H Estim Creat Clear Calc 31.7 L eGFR 19 L BUN/Creatinine Ratio 8 L Glucose 92 Calculated Osmolality 281 Calcium 7.8 L Corrected Calcium 8.7 Phosphorus 5.1 Magnesium 2.0 Total Bilirubin 0.5 AST < 8 ALT 13 Alkaline Phosphatase 76 Total Protein 5.6 L Albumin 2.9 L Globulin 2.7 Albumin/Globulin Ratio 1.1 L ABG Interpretation ABG results: 03/14/25 03/14/25 03/14/25 14:44 16:44 18:53 ABG pH 7.03 L* 7.04 L* 7.10 L* ABG pCO2 43 50 H 46 ABG pO2 86 128 H D 57 L* D ABG HCO3 11 L 13 L 14 L ABG O2 Saturation 91 97 78 L ABG Base Excess -19 L -17 L -15 L VBG pH VBG pCO2 VBG pO2 VBG Base Excess 03/14/25 03/15/25 03/15/25 21:20 05:07 12:28 ABG pH 7.21 L D 7.41 D ABG pCO2 32 D 31 L ABG pO2 116 H D 74 L D ABG HCO3 13 L 20 ABG O2 Saturation 97 95 ABG Base Excess -14 L -4 L VBG pH 7.43 VBG pCO2 34 L VBG pO2 37 VBG Base Excess -1 03/16/25 03/16/25 03/16/25 04:51 11:48 19:30 ABG pH 7.46 H 7.22 L D 7.38 D ABG pCO2 29 L 66 H D 48 D ABG pO2 78 L 79 L 236 H D ABG HCO3 21 27 H 29 H ABG O2 Saturation 96 91 100 H ABG Base Excess -2 -2 3 VBG pH VBG pCO2 VBG pO2 VBG Base Excess 03/17/25 03/18/25 03/19/25 04:53 09:27 04:46 ABG pH 7.38 7.35 ABG pCO2 49 H 48 ABG pO2 78 L D 92 ABG HCO3 29 H 26 ABG O2 Saturation 95 98 ABG Base Excess 3 0 VBG pH 7.34 VBG pCO2 54 D VBG pO2 34 VBG Base Excess 2 03/24/25 04/01/25 04/01/25 22:00 04:53 15:50 ABG pH 7.33 L 7.23 L ABG pCO2 48 62 H ABG pO2 233 H 102 ABG HCO3 25 26 ABG O2 Saturation 101 H 98 ABG Base Excess -1 -2 VBG pH 7.24 L VBG pCO2 57 H VBG pO2 51 VBG Base Excess -3 04/01/25 04/02/25 04/03/25 18:40 04:45 05:17 ABG pH 7.24 L 7.24 L 7.31 L ABG pCO2 61 H 59 H 56 H ABG pO2 207 H D 203 H 123 H D ABG HCO3 26 25 28 H ABG O2 Saturation 101 H 101 H 100 H ABG Base Excess -2 -3 2 VBG pH VBG pCO2 VBG pO2 VBG Base Excess 04/04/25 05:02 ABG pH 7.33 L ABG pCO2 51 H ABG pO2 114 H ABG HCO3 27 H ABG O2 Saturation 100 H ABG Base Excess 1 VBG pH VBG pCO2 VBG pO2 VBG Base Excess Quality Measures Quality Measures VTE prophylaxis Assessment & Plan Assessment Current Active Medications: Generic Name Dose Route Start Last Admin Trade Name Freq PRN Reason Stop Dose Admin Acetaminophen 650 mg 03/20/25 11:35 03/21/25 06:39 Acetaminophen 325 Mg Tablet PO 04/19/25 11:34 650 mg Q6HR PRN Administration pain and Fever >100.4 Protocol Hydrocodone Bitart/Acetaminophen 1 tab 04/04/25 11:48 04/07/25 08:01 Hydrocodone/Apap 10/325 Tab PO 04/09/25 11:47 1 tab Q6HR PRN Administration PAIN SCALE 4-6 (Moderate Amiodarone HCl 200 mg 04/05/25 09:00 04/07/25 08:30 Amiodarone Hcl 200 Mg Tablet PO 05/05/25 08:59 200 mg BID MONTSERRAT Administration Artificial Tears 0 drop 04/04/25 21:37 04/04/25 21:53 Artificial Tears 225 Drop/15 Ml Btl BOTH EYES 05/04/25 21:36 2 drop PRN PRN Administration TO KEEP EYES MOIST Aspirin 81 mg 04/03/25 12:00 04/07/25 08:31 Aspirin Ec 81 Mg Tabec PO 05/03/25 11:59 81 mg QDAY MONTSERRAT Administration Dextrose 25 ml 04/01/25 04:32 Dextrose 50%-Water Inj 50 Ml Syringe IV 05/01/25 04:31 Q15MIN PRN BG 50-70 responsive npo pt Dextrose 50 ml 04/01/25 04:32 04/01/25 05:21 Dextrose 50%-Water Inj 50 Ml Syringe IV 05/01/25 04:31 50 ml Q15MIN PRN Administration BG <50 OR BG <70 & pt unresponsive Glucagon 1 mg 04/01/25 04:32 Glucagon Inj 1 Mg Vial IM Q15MIN PRN BG <70, and no IV access Heparin Sodium (Porcine) 3,800 unit 03/30/25 08:26 04/04/25 12:54 Heparin Sod Inj 1000 Unit/Ml Vial 10 Ml INDWELLCAT 04/13/25 08:25 3,800 unit PRN PRN Administration DIALYSIS Hydromorphone HCl 1 mg 04/06/25 08:00 Hydromorphone Inj 2 Mg/Ml Vial IVP 04/08/25 14:49 Q4HR PRN BREAKTHROUGH PAIN 7-10 Albumin Human 25 gm in 100 mls @ 100 mls/hr 04/01/25 07:37 04/02/25 09:00 Albuminar-25 Ivpb IV Infused PRN PRN Infusion DIALYSIS Daptomycin 500 mg/ Sodium 60 mls @ 120 mls/hr 04/01/25 15:00 04/05/25 16:44 Chloride 10 ml/ Sodium IV 04/08/25 14:59 120 mls/hr Chloride QOD@1500 MONTSERRAT Administration Protocol Piperacillin Sod/Tazobactam 100 mls @ 200 mls/hr 04/02/25 15:29 04/07/25 08:30 Sod 4.5 gm/ Sodium Chloride IV 04/09/25 15:28 200 mls/hr Q12HR MONTSERRAT Administration Insulin Human Lispro 0 unit 04/02/25 17:00 04/07/25 07:35 Insulin Lispro (Admelog) 1 Unit/0.01 Ml Unit SC 05/02/25 16:59 Not Given ACHS MONTSERRAT Protocol Levalbuterol HCl 0.31 mg 03/28/25 10:24 03/31/25 00:37 Levalbuterol Rt 0.31 Mg/3 Ml Nebu INH 04/19/25 12:14 0.31 mg Q6HRRT PRN Administration Wheezing Lorazepam 1 mg 04/01/25 08:11 Lorazepam 2 Mg/Ml Vial IVP Q5MIN PRN seizure Morphine Sulfate 15 mg 04/05/25 14:30 04/07/25 08:33 Morphine Sulf 15 Mg Tabcr PO 04/10/25 14:29 15 mg Q12HR MONTSERRAT Administration Protocol Ondansetron HCl 4 mg 03/14/25 17:31 03/30/25 01:39 Ondansetron Inj 2 Mg/Ml Inj 2 Ml IV 04/13/25 17:30 4 mg Q6H PRN Administration NAUSEA OR VOMITING Protocol Pantoprazole Sodium 40 mg 03/31/25 09:00 04/07/25 08:30 Pantoprazole Inj 40 Mg Vial IVP 04/30/25 08:59 40 mg QDAY MONTSERRAT Administration Polyethylene Glycol 17 gm 03/26/25 18:00 04/07/25 08:30 Polyethylene Glycol 17 Gm Packet PO 04/25/25 17:59 17 gm QDAY MONTSERRAT Administration Sennosides 1 tab 03/26/25 18:00 04/07/25 08:30 Senna Tablet PO 04/25/25 17:59 1 tab QDAY MONTSERRAT Administration Protocol Sevelamer Carbonate 800 mg 04/03/25 12:00 04/07/25 07:42 Sevelamer Carbonate 800 Mg Tablet PO 05/03/25 11:59 800 mg TIDWM MONTSERRAT Administration Sodium Chloride 3 ml 03/31/25 06:26 Sodium Cl Rt Marjorie 3% 4 Ml Nebu (Non-Formulary) INH 04/16/25 18:59 Q6HRRT PRN To induce cough Plan 49-year-old male with past medical history of DM2, hypertension, ESRD (HD ), HFpEF (EF 55% on 2021), and right BKA due to osteomyelitis was admitted to the ICU on 03/14/2025 for acute hypoxic respiratory failure, acute encephalopathy, and shock. He was extubated and downgraded to telemetry on 03/20/2025. #Right ulnar artery occlusion #Right upper extremity multiple digit necrosis #Left lower extremity gangrene/tissue necrosis s/p guillotine amputation distal #Peripheral Vascular disease, severe Abdomen CTA with runoff that showed occlusion of multiple arteries including the left radial, gluteal, and tibial arteries as well as 90% stenosis of the left superficial femoral artery Also showed 80% stenosis of right superficial femoral artery. Patient had his angiogram done yesterday showed right ulnar artery to be totally occluded or absent and there was no CAD. 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 Patient again went into SVT and received adenosine 6mg x1 and adenosine 12mg x1 before being cardioverted. Repeat EKG showed what appears to be MAT. [id number] score of 3 points indicating 3.2% risk of stroke per year HAS-BLED score of 5 points Patient had his angiogram done 03/31/2025 showed right ulnar artery to be totally occluded or absent and there was no CAD. Cardiology recommended to stop patient's aspirin, Plavix, metoprolol, and statin Patient had a rapid response called on 04/01/2025 was tachycardic in the 140s and EKG looked to be like a SVT. Patient was cardioverted and was then in the heart rates in the 60s. Plan: Continue amiodarone 200 mg twice daily Deferred anticoagulation until ok from surgery Keep Potassium >4 and Mg >2 Risk And Compliance Analytics Director consulted, appreciate recommendations #HFpEF (EF 50-55% on 2024). Echo on 03/16/2025 showed EF of 45 to 50% and septal dyskinesis. Echo on 03/23/2025 shows some improvement and left ventricle function with an EF of 50 to 55% Plan: Will continue with hemodialysis with fluid removal. Daily weights. Strict JENN's. fluid restriction. #ESRD (HD on ). Patient was on hemodialysis and had AV fistula, but was clotted therefore cannot be used. Tunnedled dialysis cath placed 03/26/2025 Plan: Continue hemodialysis as scheduled. Continue sevelamer 800 mg 3 times daily [employer] [address]. Pleitez following, appreciate recommendations Avoid nephrotoxic agents. Renally dose medications. #Macrocytic anemia. #Thrombocytopenia, improving Patient's hemoglobin was downtrending from 11.9 on admission Hemoglobin 7.1 and platelets 133 No active signs of bleeding Plan: Continue to monitor daily CBC Transfuse if Hgb less than 7. #Transaminitis, resolved #Hepatomegaly. Hepatitis panel negative and abdominal ultrasound that shows some hepatomegaly with possible cirrhosis versus hepatocellular disease. Plan: Continue monitoring daily labs #Hx of DM2. ISS. Hypoglycemia protocol ordered. #Acute Hypoxic resp failure in the setting of Left base PNA, improving #Stenotrophomonas maltophilia pneumonia, resolved . #Respiratory acidosis, resolved. #Septic shock, resolved. #Troponinemia, resolved #Hematemesis, resolved #HAGMA, resolved. #Lactic acidosis, resolved. #Staph Hemolyticus bacteremia, resolved (finished course of vancomycin 03/23- 04/05) #CLABSI, resolved #Hyperbilirubinemia, resolved Hospital Maintenance: Disposition: Pending placement Diet: renal DVT ppx: Heparin 5000 SC Q12H GI ppx: Protonix . Code status: DNR. Case disclosed with Attending Dr. Amrit Lee PGY1 Attending Provider Attestation/Addendum I reviewed labs, imaging, EKG, home medications and prior available records. Face to face evaluation was performed by me. I have personally examined the patient and discussed assessment and plan with the IM team. I reviewed the resident note and agree with the plan with exceptions as below. Acute encephalopathy, resolved Acute hypoxic respiratory failure, status post intubation, s/p extubation ESRD on hemodialysis HFrEF EF 45 to 50% Atrial fibrillation with controlled ventricular rhythm PAD Gangrene of toes and fingers, in the setting of severe PAD in the vasopressors Non-STEMI Clotting of dialysis fistula Leukocytosis, improved Status post guillotine left foot amputation on 04/01 Continue daptomycin and Zosyn till 04/08 Status post cardiac catheterization that showed nonobstructive CAD Status post angiogram that showed severe PAD with occlusions. Continue pain management orally Status post permacath on 03/26 Outpatient follow-up with vascular surgery for the clotted fistula Monitor H&H: Stable Started diltiazem for the A-fib. Continue Eliquis Continue aspirin Continue hemodialysis per nephrology recommendations PT recommended SNF. He is not on hospice. Pending placement
--- NOTE | 2025-04-07 09:50 | PC.SS ---
SS follow up note; SS Sent updated Clinicals to Symone from [facility] through [employer]. Symone reported auth was submitted.
--- NOTE | 2025-04-07 10:15 | PC.WOUND ---
Spoke with Dr. Spann, updated on skin condition and ozzing from left disarticulates site with surgicel hemostat applied. Per MD ok to discharge to SNF with wound care orders when medically ready.
[2025-04-07] MEDS: DAPTOMYCIN IV (14:20)
[2025-04-07] MEDS: [UNRECOGNIZED DRUG - OTHER] IV (14:20)
[2025-04-07] MEDS: SODIUM CHLORIDE 0.9% IV (14:20)
--- NOTE | 2025-04-07 14:27 | ESPR_ITS ---
Documentation for date of: 04/07/25 Subjective Subjective Interval history: Mr. Mcclain is a 49-year-old male with past medical history of type 2 diabetes mellitus, hypertension, end-stage renal disease (HD ), HFpEF (EF 50 to 55% 02/2025) and right BKA due to osteomyelitis who was brought in by ambulance to [facility] emergency department on 03/14/2025 with a chief complaint of altered mental status. Patient was intubated secondary to inability to protect airway. On presentation patient's assisted with procuring history, per patient's patient had progressive shortness of breath and had change in mentation, patient was found to be in SVT when EMS arrived was shocked once and was converted to sinus rhythm. Patient also had to get additional sessions of hemodialysis due to increase in weight, last session of hemodialysis before admission to the hospital was on 12 March 2025. Patient also does have history of methamphetamine use, urine tox screen was positive for methamphetamine and marijuana on presentation. With the progression of hospital course patient was initially managed in the intensive care unit for acute hypoxic respiratory failure was found to have stenotrophomonas maltophilia pneumonia was treated with IV antibiotics, had significant lactic acidosis respiratory acidosis and high anion gap metabolic acidosis which improved in ICU patient did require CRRT and was eventually transition to hemodialysis, patient was eventually extubated on downgraded to telemetry on 03/20/2025. Patient's hospital stay is further complicated with possible acute versus chronic limb ischemia and underlying severe peripheral vascular disease, supply room clerk discussed case with vascular surgeon at [facility] during the hospitalization, patient was a poor candidate for revascularization per documentation. Patient started on amiodarone for underlying atrial fibrillation and eventually infectious disease consulted for Staph haemolyticus bacteremia possible CLABSI. Patient continue to receive inpatient hemodialysis. 03/25/2025: Patient successfully completed 3 hours 4 minutes of dialysis session today, postdialysis weight 115.9 kg was hypotensive at times during the dialysis, tolerated dialysis well through the temporary dialysis catheter. Net fluid removed 0.5 L. Blood pressure was soft, received 2 bags of albumin during the dialysis session.Patient will need permanent dialysis catheter placement, will be scheduled with interventional radiology in a.m. after holding aspirin and Plavix. Patient will be made n.p.o. after midnight by primary team. 03/26/2025: Patient seen and examined at bedside, patient had permanent tunneled dialysis catheter placed today. Currently complains of some back pain. Patient will continue to receive IV antibiotics until 04/05/2025 with hemodialysis. Otherwise patient is stable, has no current complaints. Anticipate discharge in next 24 hours on supplemental oxygen. 03/27/2025:Patient received dialysis treatment today, completed about 2 hours of dialysis session, about 1.1 L fluid removed, postdialysis weight 115 kg, was administered 100 mL albumin during the dialysis session for low blood pressure, patient did receive alteplase through the indwelling catheter x 1. Primary team discussed the case with patient and patient's family, patient has been requiring an extensive amount of IV pain medication, further plan by primary team is to discharge patient to [facility] facility and not on hospice as patient does not have underlying clear etiology for hospice. Patient's DAPT being held, cardiology following the case and patient may undergo angiogram heart, bilateral upper and lower extremities on Saturday. 03/28/2025: Patient continues to complain of pain, patient's gabapentin changed to pregabalin 25 twice daily and [place] was increased to 7.5 mg. Patient Aspirin and Plavix being held, patient going to undergo cardiac angiogram and angiogram upper and lower extremities likely in the morning. Will coordinate with cardiology. 03/29/2025: Labs and Vitals reviewed. Patient scheduled for Procedure with Cardiology Today, will plan for dialysis pot procedure after discussion with Cardiology Team, otherwise patient is stable, has no current complains. Pregabalin dose adjusted by primrary team. 03/30/2025: Patient received dialysis treatment today, received dialysis for 3 hours 6-minute, about 2 L fluid removed, postdialysis weight 112.3, patient was administered 100 mL of albumin during dialysis. Patient had his angiogram done yesterday showed right ulnar artery to be totally occluded or absent and there was no CAD. Cardiology recommended to stop patient's aspirin, Plavix, metoprolol, and statin and they also started the patient on diltiazem. They also recommended to get general surgery for possible amputation and to start Eliquis 2.5 mg twice daily after the patient has surgery. Will consult general surgery for possible amputation. 03/31/2025: Patient seen and examined at bedside, labs and vitals reviewed. Patient received dialysis yesterday, patient is being evaluated by general surgery for possible amputation. Otherwise has no current complaints, reports no new concerns. 04/01/2025: Patient upgraded to ICU earlier this morning, patient had seizure- like episode. Patient was given Ativan 1 mg x 1. Patient later had another rapid response called with heart rate in 140s and SpO2 in low 80s, patient was very lethargic MAP was found to be in the range of 55-64. Patient eventually upgraded to ICU for IV pressors, patient started on phenylephrine in ICU. Patient will receive dialysis today, scheduled for BKA by surgery later today. 04/03/2025: Patient seen and examined at bedside in ICU, patient was started on [employer], for about 12 hours, had about 1 L fluid removed.Patient was weaned off of phenylephrine, currently not requiring any pressors. Patient does have significant right hand pain due to digital necrosis, is on Dilaudid for pain management. Die Stamper team will obtain punch biopsy today of the skin for further analysis. 04/04/2025: Patient seen and examined at bedside, currently in ICU physically, was downgraded to telemetry yesterday. Patient received dialysis treatment today, goal is to remove about 3 L fluid, patient will likely need another session of dialysis tomorrow morning, patient has significant amount of fluid in the body. Otherwise patient is stable, has no current complaints tolerating dialysis well. 04/05/2025: Patient seen and examined at bedside, currently fluid overloaded as well, will plan for another session of dialysis today with goal to remove fluid. Will continue to monitor patient's fluid status post dialysis today, patient is pending orthopedic consult, is on telemetry. Otherwise has no current complaints. 04/06/2025: Patient seen and examined at bedside, patient received dialysis yesterday 2.7 L removed. Patient received consecutive dialysis for the last two days 2.7 L fluid removed. Patient is stable today, will recieve dialysis today as well, will remove fluid around 2-3L. Pending orthopaedic surgeon evaluation. 04/07/2025: Patient seen and examined at bedside patient received 3 consecutive days of dialysis from 04/04-04/06 had about 3 L removed each day, today patient is euvolemic, saturating well on nasal cannula has no current complaints. Patient will be scheduled for dialysis tomorrow. Patient is pending insurance authorization for placement, patient's pain is managed on extended release morphine. Exam Vital Signs Temp Pulse Resp BP Pulse Ox O2 Del Method O2 Flow Rate 97.0 F 64 15 124/70 99 Nasal Cannula 4 04/07/25 12:00 04/07/25 12:00 04/07/25 12:00 04/07/25 12:00 04/07/25 12:00 04/07/25 12:00 04/07/25 12:00 FiO2 50 04/06/25 09:03 Narrative Exam General: AO x 3, no acute distress Eyes: Pupils reactive to light, EOMI, vision intact Ears: No visible ear discharge Nose: No visible nasal discharge. Mouth/Throat: Moist mucous membranes, no redness, no lesions. Neck: Neck supple, no cervical lymphadenopathy. Lungs: Clear CHRISTIANO Cardio: Normal S1/S2, irregular, no murmurs, no JVD Abdomen: Soft, non-tender, no palpable masses, peristalsis present, no guarding or rebound Extremities: Right BKA with cyanotic changes which have slightly improved, left distal leg amputation above ankle level with still serosanguineous discharge present but improved, right upper extremity digits show necrotic changes at the tips and extending proximally. Skin: Right upper extremity digits show necrotic changes at the tips with some bullae Neuro: No focal neurological deficits, motor and sensory intact Objective Labs 04/08/25 04:55 04/08/25 04:55 Labs: Laboratory Results - last 24 hr 04/06/25 04/07/25 15:04 05:50 WBC 9.0 RBC 2.29 L Hgb 7.4 L 7.1 L Hct 24.7 L 23.9 L MCV 104 H MCH 31.0 MCHC 29.7 L RDW Std Deviation 68.5 H Plt Count 133 L Neut % (Auto) 67 Lymph % (Auto) 12 [place] % (Auto) 10 Eos % (Auto) 4 Baso % (Auto) 1 Neut # (Auto) 6.0 Lymph # (Auto) 1.1 [place] # (Auto) 0.9 H Eos # (Auto) 0.4 Baso # (Auto) 0.1 Immature Gran # (Auto) 0.60 H Absolute Nucleated RBC 0.00 Immature Gran % 7 H Nucleated RBC % 0 Sodium 138 Potassium 4.1 Chloride 100 Carbon Dioxide 30.7 Anion Gap 7 BUN 30 H Creatinine 3.7 H Estim Creat Clear Calc 31.7 L eGFR 19 L BUN/Creatinine Ratio 8 L Glucose 92 Calculated Osmolality 281 Calcium 7.8 L Corrected Calcium 8.7 Phosphorus 5.1 Magnesium 2.0 Total Bilirubin 0.5 AST < 8 ALT 13 Alkaline Phosphatase 76 Total Protein 5.6 L Albumin 2.9 L Globulin 2.7 Albumin/Globulin Ratio 1.1 L ABG Interpretation ABG results: 03/14/25 03/14/25 03/14/25 14:44 16:44 18:53 ABG pH 7.03 L* 7.04 L* 7.10 L* ABG pCO2 43 50 H 46 ABG pO2 86 128 H D 57 L* D ABG HCO3 11 L 13 L 14 L ABG O2 Saturation 91 97 78 L ABG Base Excess -19 L -17 L -15 L VBG pH VBG pCO2 VBG pO2 VBG Base Excess 03/14/25 03/15/25 03/15/25 21:20 05:07 12:28 ABG pH 7.21 L D 7.41 D ABG pCO2 32 D 31 L ABG pO2 116 H D 74 L D ABG HCO3 13 L 20 ABG O2 Saturation 97 95 ABG Base Excess -14 L -4 L VBG pH 7.43 VBG pCO2 34 L VBG pO2 37 VBG Base Excess -1 03/16/25 03/16/25 03/16/25 04:51 11:48 19:30 ABG pH 7.46 H 7.22 L D 7.38 D ABG pCO2 29 L 66 H D 48 D ABG pO2 78 L 79 L 236 H D ABG HCO3 21 27 H 29 H ABG O2 Saturation 96 91 100 H ABG Base Excess -2 -2 3 VBG pH VBG pCO2 VBG pO2 VBG Base Excess 03/17/25 03/18/25 03/19/25 04:53 09:27 04:46 ABG pH 7.38 7.35 ABG pCO2 49 H 48 ABG pO2 78 L D 92 ABG HCO3 29 H 26 ABG O2 Saturation 95 98 ABG Base Excess 3 0 VBG pH 7.34 VBG pCO2 54 D VBG pO2 34 VBG Base Excess 2 03/24/25 04/01/25 04/01/25 22:00 04:53 15:50 ABG pH 7.33 L 7.23 L ABG pCO2 48 62 H ABG pO2 233 H 102 ABG HCO3 25 26 ABG O2 Saturation 101 H 98 ABG Base Excess -1 -2 VBG pH 7.24 L VBG pCO2 57 H VBG pO2 51 VBG Base Excess -3 04/01/25 04/02/25 04/03/25 18:40 04:45 05:17 ABG pH 7.24 L 7.24 L 7.31 L ABG pCO2 61 H 59 H 56 H ABG pO2 207 H D 203 H 123 H D ABG HCO3 26 25 28 H ABG O2 Saturation 101 H 101 H 100 H ABG Base Excess -2 -3 2 VBG pH VBG pCO2 VBG pO2 VBG Base Excess 04/04/25 05:02 ABG pH 7.33 L ABG pCO2 51 H ABG pO2 114 H ABG HCO3 27 H ABG O2 Saturation 100 H ABG Base Excess 1 VBG pH VBG pCO2 VBG pO2 VBG Base Excess Quality Measures Quality Measures VTE prophylaxis Assessment & Plan Assessment Current Active Medications: Generic Name Dose Route Start Last Admin Trade Name Freq PRN Reason Stop Dose Admin Acetaminophen 650 mg 03/20/25 11:35 03/21/25 06:39 Acetaminophen 325 Mg Tablet PO 04/19/25 11:34 650 mg Q6HR PRN Administration pain and Fever >100.4 Protocol Hydrocodone Bitart/Acetaminophen 1 tab 04/04/25 11:48 04/07/25 14:20 Hydrocodone/Apap 10/325 Tab PO 04/09/25 11:47 1 tab Q6HR PRN Administration PAIN SCALE 4-6 (Moderate Amiodarone HCl 200 mg 04/05/25 09:00 04/07/25 08:30 Amiodarone Hcl 200 Mg Tablet PO 05/05/25 08:59 200 mg BID MONTSERRAT Administration Artificial Tears 0 drop 04/04/25 21:37 04/04/25 21:53 Artificial Tears 225 Drop/15 Ml Btl BOTH EYES 05/04/25 21:36 2 drop PRN PRN Administration TO KEEP EYES MOIST Aspirin 81 mg 04/03/25 12:00 04/07/25 08:31 Aspirin Ec 81 Mg Tabec PO 05/03/25 11:59 81 mg QDAY MONTSERRAT Administration Dextrose 25 ml 04/01/25 04:32 Dextrose 50%-Water Inj 50 Ml Syringe IV 05/01/25 04:31 Q15MIN PRN BG 50-70 responsive npo pt Dextrose 50 ml 04/01/25 04:32 04/01/25 05:21 Dextrose 50%-Water Inj 50 Ml Syringe IV 05/01/25 04:31 50 ml Q15MIN PRN Administration BG <50 OR BG <70 & pt unresponsive Glucagon 1 mg 04/01/25 04:32 Glucagon Inj 1 Mg Vial IM Q15MIN PRN BG <70, and no IV access Heparin Sodium (Porcine) 3,800 unit 03/30/25 08:26 04/04/25 12:54 Heparin Sod Inj 1000 Unit/Ml Vial 10 Ml INDWELLCAT 04/13/25 08:25 3,800 unit PRN PRN Administration DIALYSIS Hydromorphone HCl 1 mg 04/06/25 08:00 Hydromorphone Inj 2 Mg/Ml Vial IVP 04/08/25 14:49 Q4HR PRN BREAKTHROUGH PAIN 7-10 Albumin Human 25 gm in 100 mls @ 100 mls/hr 04/01/25 07:37 04/02/25 09:00 Albuminar-25 Ivpb IV Infused PRN PRN Infusion DIALYSIS Daptomycin 500 mg/ Sodium 60 mls @ 120 mls/hr 04/01/25 15:00 04/07/25 14:20 Chloride 10 ml/ Sodium IV 04/08/25 14:59 120 mls/hr Chloride QOD@1500 MONTSERRAT Administration Protocol Piperacillin Sod/Tazobactam 100 mls @ 200 mls/hr 04/02/25 15:29 04/07/25 08:30 Sod 4.5 gm/ Sodium Chloride IV 04/09/25 15:28 200 mls/hr Q12HR MONTSERRAT Administration Insulin Human Lispro 0 unit 04/02/25 17:00 04/07/25 12:16 Insulin Lispro (Admelog) 1 Unit/0.01 Ml Unit SC 05/02/25 16:59 Not Given ACHS MONTSERRAT Protocol Levalbuterol HCl 0.31 mg 03/28/25 10:24 03/31/25 00:37 Levalbuterol Rt 0.31 Mg/3 Ml Nebu INH 04/19/25 12:14 0.31 mg Q6HRRT PRN Administration Wheezing Lorazepam 1 mg 04/01/25 08:11 Lorazepam 2 Mg/Ml Vial IVP Q5MIN PRN seizure Morphine Sulfate 15 mg 04/05/25 14:30 04/07/25 08:33 Morphine Sulf 15 Mg Tabcr PO 04/10/25 14:29 15 mg Q12HR MONTSERRAT Administration Protocol Ondansetron HCl 4 mg 03/14/25 17:31 03/30/25 01:39 Ondansetron Inj 2 Mg/Ml Inj 2 Ml IV 04/13/25 17:30 4 mg Q6H PRN Administration NAUSEA OR VOMITING Protocol Pantoprazole Sodium 40 mg 03/31/25 09:00 04/07/25 08:30 Pantoprazole Inj 40 Mg Vial IVP 04/30/25 08:59 40 mg QDAY MON[place]AT Administration Polyethylene Glycol 17 gm 03/26/25 18:00 04/07/25 08:30 Polyethylene Glycol 17 Gm Packet PO 04/25/25 17:59 17 gm QDAY MONTSERRAT Administration Sennosides 1 tab 03/26/25 18:00 04/07/25 08:30 Senna Tablet PO 04/25/25 17:59 1 tab QDAY MONTSERRAT Administration Protocol Sevelamer Carbonate 800 mg 04/03/25 12:00 04/07/25 12:14 Sevelamer Carbonate 800 Mg Tablet PO 05/03/25 11:59 800 mg TIDWM MONTSERRAT Administration Sodium Chloride 3 ml 03/31/25 06:26 Sodium Cl Rt Marjorie 3% 4 Ml Nebu (Non-Formulary) INH 04/16/25 18:59 Q6HRRT PRN To induce cough Plan Assessment and Plan: Summary: Mr. Mcclain is a 49 years old male with PMH of DM2, hypertension, ESRD (HD ), HFpEF (EF 55% on 2021), and right BKA due to osteomyelitis BIBA to the ED due to AMS, was intubated and started on pressors and was admitted to the ICU on 03/14/2025 for management of shock of unknown etiology and was started on IV antibiotics. On 03/17 his sputum culture grew stenotrophomonas maltophilia and antibiotics were changed to levofloxacin. He was extubated and downgraded to telemetry on 03/20/2025 for continuation of care. # End-stage renal disease Patient received CRRT in intensive care unit, was transition to hemodialysis. Patient will need a line holiday and placement of due to underlying bacteremia. Primary team to hold aspirin and Plavix, catheter will be exchanged in a.m. possibly Patient received permanent tunneled dialysis catheter placement on 03/26/2025. Plan: - Continue with hemodialysis inpatient, received dialysis in for 3 consecutive days had about 3 L removed per session, scheduled for dialysis tomorrow. - Avoid nephrotoxic agent - Renally dose medications. #Status post acute non-ST segment elevation myocardial infarction, NSTEMI possible type 2 troponin versus NSTEMI. #SVT episodes. #Afib, rate controlled. #Decompensated HFpEF (EF 45-50%). #Extensive atherosclerotic cardiovascular disease with bilateral femoral artery occlusions and distal trifurcation disease with gangrenous changes, ruled out. #Vasopressor-induced vasoconstriction and gangrene of B/L fingers, sequelae. #Left foot gangrene, s/p BKA. #Staph hemolyticus bacteremia. #Septic shock, resolved. #Acute hypoxic respiratory failure. #Community-acquired pneumonia, Stenotrophomonas maltophilia. #History of type 2 diabetes. #Respiratory acidosis, resolved. #HAGMA, resolved. #Lactic acidosis, resolved. #Hyperkalemia, resolved. #Shock liver, resolved. #Possible GI bleed. #Macrocytic anemia. #Thrombocytopenia. #Hematemesis, resolved. #Hypoglycemia, resolved. -Management as per primary team Case discussed with Attending Dr. Pleitez. Marycarmen Clark PGY1 Disclaimer: This note was dictated by speech recognition. Minor errors in public information coordinator may be present due to voice recognition software. Attending Provider Attestation/Addendum Pt is seen and examined labs are reviewed Agree with assessment and plan by resident Héctor Pleitez MD
--- NOTE | 2025-04-07 16:32 | ESPR_ITS ---
<Statement entered by Yanci Villalobos MD - 04/09/25 07:55> I personally examined evaluated this patient in telemetry floor continues to remain stable awaiting for discharge planning patient continues to remain A-fib rate control amputation successful no complications will require amputation of the right hand digits. Documentation for date of: 04/07/25 Subjective Subjective Interval history: Patient was seen and examined at the bedside. No acute overnight events. Patient reports his pain has improved with the new regimen. Per primary team patient will be discharged tomorrow to SNF. Recommended to continue amiodarone 200 mg twice daily and aspirin. Recommended to start patient on Eliquis 2.5 mg twice daily prior to discharge. Exam Vital Signs Temp Pulse Resp BP Pulse Ox O2 Del Method O2 Flow Rate 97.0 F 77 16 124/70 96 Nasal Cannula 4 04/07/25 12:00 04/07/25 13:20 04/07/25 13:20 04/07/25 12:00 04/07/25 13:20 04/07/25 12:00 04/07/25 12:00 FiO2 50 04/06/25 09:03 Narrative Exam Gen: Well-developed male. HEENT: NCAT, PERRLA, EOMI, MMM, anicteric conjunctivae. CVS: normal S1 and S2. RRR. No M/R/G. Resp: CTA B/L. No rhonchi, rales, crackles or wheezing. Abd: soft, non-tender, non-distended. BS+ in all 4 quadrants. MSK: S/p right BKA, stump appears necrotic, right thigh has blister. S/p left BKA, clean dressing. Dry gangrene over right 2nd and 3rd digits. Tip of left second digit appears necrotic. Neuro: CN II-XII grossly intact. Alert and oriented x3. Psych: appropriate mood and affect. Objective Labs 04/07/25 05:50 04/07/25 05:50 Labs: Laboratory Results - last 24 hr 04/07/25 05:50 WBC 9.0 RBC 2.29 L Hgb 7.1 L Hct 23.9 L MCV 104 H MCH 31.0 MCHC 29.7 L RDW Std Deviation 68.5 H Plt Count 133 L Neut % (Auto) 67 Lymph % (Auto) 12 Marion % (Auto) 10 Eos % (Auto) 4 Baso % (Auto) 1 Neut # (Auto) 6.0 Lymph # (Auto) 1.1 Marion # (Auto) 0.9 H Eos # (Auto) 0.4 Baso # (Auto) 0.1 Immature Gran # (Auto) 0.60 H Absolute Nucleated RBC 0.00 Immature Gran % 7 H Nucleated RBC % 0 Sodium 138 Potassium 4.1 Chloride 100 Carbon Dioxide 30.7 Anion Gap 7 BUN 30 H Creatinine 3.7 H Estim Creat Clear Calc 31.7 L eGFR 19 L BUN/Creatinine Ratio 8 L Glucose 92 Calculated Osmolality 281 Calcium 7.8 L Corrected Calcium 8.7 Phosphorus 5.1 Magnesium 2.0 Total Bilirubin 0.5 AST < 8 ALT 13 Alkaline Phosphatase 76 Total Protein 5.6 L Albumin 2.9 L Globulin 2.7 Albumin/Globulin Ratio 1.1 L ABG Interpretation ABG results: 03/14/25 03/14/25 03/14/25 14:44 16:44 18:53 ABG pH 7.03 L* 7.04 L* 7.10 L* ABG pCO2 43 50 H 46 ABG pO2 86 128 H D 57 L* D ABG HCO3 11 L 13 L 14 L ABG O2 Saturation 91 97 78 L ABG Base Excess -19 L -17 L -15 L VBG pH VBG pCO2 VBG pO2 VBG Base Excess 03/14/25 03/15/25 03/15/25 21:20 05:07 12:28 ABG pH 7.21 L D 7.41 D ABG pCO2 32 D 31 L ABG pO2 116 H D 74 L D ABG HCO3 13 L 20 ABG O2 Saturation 97 95 ABG Base Excess -14 L -4 L VBG pH 7.43 VBG pCO2 34 L VBG pO2 37 VBG Base Excess -1 03/16/25 03/16/25 03/16/25 04:51 11:48 19:30 ABG pH 7.46 H 7.22 L D 7.38 D ABG pCO2 29 L 66 H D 48 D ABG pO2 78 L 79 L 236 H D ABG HCO3 21 27 H 29 H ABG O2 Saturation 96 91 100 H ABG Base Excess -2 -2 3 VBG pH VBG pCO2 VBG pO2 VBG Base Excess 03/17/25 03/18/25 03/19/25 04:53 09:27 04:46 ABG pH 7.38 7.35 ABG pCO2 49 H 48 ABG pO2 78 L D 92 ABG HCO3 29 H 26 ABG O2 Saturation 95 98 ABG Base Excess 3 0 VBG pH 7.34 VBG pCO2 54 D VBG pO2 34 VBG Base Excess 2 03/24/25 04/01/25 04/01/25 22:00 04:53 15:50 ABG pH 7.33 L 7.23 L ABG pCO2 48 62 H ABG pO2 233 H 102 ABG HCO3 25 26 ABG O2 Saturation 101 H 98 ABG Base Excess -1 -2 VBG pH 7.24 L VBG pCO2 57 H VBG pO2 51 VBG Base Excess -3 04/01/25 04/02/25 04/03/25 18:40 04:45 05:17 ABG pH 7.24 L 7.24 L 7.31 L ABG pCO2 61 H 59 H 56 H ABG pO2 207 H D 203 H 123 H D ABG HCO3 26 25 28 H ABG O2 Saturation 101 H 101 H 100 H ABG Base Excess -2 -3 2 VBG pH VBG pCO2 VBG pO2 VBG Base Excess 04/04/25 05:02 ABG pH 7.33 L ABG pCO2 51 H ABG pO2 114 H ABG HCO3 27 H ABG O2 Saturation 100 H ABG Base Excess 1 VBG pH VBG pCO2 VBG pO2 VBG Base Excess Quality Measures Quality Measures VTE prophylaxis Assessment & Plan Assessment Current Active Medications: Generic Name Dose Route Start Last Admin Trade Name Freq PRN Reason Stop Dose Admin Acetaminophen 650 mg 03/20/25 11:35 03/21/25 06:39 Acetaminophen 325 Mg Tablet PO 04/19/25 11:34 650 mg Q6HR PRN Administration pain and Fever >100.4 Protocol Hydrocodone Bitart/Acetaminophen 1 tab 04/04/25 11:48 04/07/25 14:20 Hydrocodone/Apap 10/325 Tab PO 04/09/25 11:47 1 tab Q6HR PRN Administration PAIN SCALE 4-6 (Moderate Amiodarone HCl 200 mg 04/05/25 09:00 04/07/25 08:30 Amiodarone Hcl 200 Mg Tablet PO 05/05/25 08:59 200 mg BID MONTSERRAT Administration Artificial Tears 0 drop 04/04/25 21:37 04/04/25 21:53 Artificial Tears 225 Drop/15 Ml Btl BOTH EYES 05/04/25 21:36 2 drop PRN PRN Administration TO KEEP EYES MOIST Aspirin 81 mg 04/03/25 12:00 04/07/25 08:31 Aspirin Ec 81 Mg Tabec PO 05/03/25 11:59 81 mg QDAY [place] Administration Dextrose 25 ml 04/01/25 04:32 Dextrose 50%-Water Inj 50 Ml Syringe IV 05/01/25 04:31 Q15MIN PRN BG 50-70 responsive npo pt Dextrose 50 ml 04/01/25 04:32 04/01/25 05:21 Dextrose 50%-Water Inj 50 Ml Syringe IV 05/01/25 04:31 50 ml Q15MIN PRN Administration BG <50 OR BG <70 & pt unresponsive Glucagon 1 mg 04/01/25 04:32 Glucagon Inj 1 Mg Vial IM Q15MIN PRN BG <70, and no IV access Heparin Sodium (Porcine) 3,800 unit 03/30/25 08:26 04/04/25 12:54 Heparin Sod Inj 1000 Unit/Ml Vial 10 Ml INDWELLCAT 04/13/25 08:25 3,800 unit PRN PRN Administration DIALYSIS Hydromorphone HCl 1 mg 04/06/25 08:00 Hydromorphone Inj 2 Mg/Ml Vial IVP 04/08/25 14:49 Q4HR PRN BREAKTHROUGH PAIN 7-10 Albumin Human 25 gm in 100 mls @ 100 mls/hr 04/01/25 07:37 04/02/25 09:00 Albuminar-25 Ivpb IV Infused PRN PRN Infusion DIALYSIS Daptomycin 500 mg/ Sodium 60 mls @ 120 mls/hr 04/01/25 15:00 04/07/25 14:20 Chloride 10 ml/ Sodium IV 04/08/25 14:59 120 mls/hr Chloride QOD@1500 MON[place]ERRAT Administration Protocol Piperacillin Sod/Tazobactam 100 mls @ 200 mls/hr 04/02/25 15:29 04/07/25 08:30 Sod 4.5 gm/ Sodium Chloride IV 04/09/25 15:28 200 mls/hr Q12HR [place] Administration Insulin Human Lispro 0 unit 04/02/25 17:00 04/07/25 12:16 Insulin Lispro (Admelog) 1 Unit/0.01 Ml Unit SC 05/02/25 16:59 Not Given ACHS MON[place]ERRAT Protocol Levalbuterol HCl 0.31 mg 03/28/25 10:24 03/31/25 00:37 Levalbuterol Rt 0.31 Mg/3 Ml Nebu INH 04/19/25 12:14 0.31 mg Q6HRRT PRN Administration Wheezing Lorazepam 1 mg 04/01/25 08:11 Lorazepam 2 Mg/Ml Vial IVP Q5MIN PRN seizure Morphine Sulfate 15 mg 04/05/25 14:30 04/07/25 08:33 Morphine Sulf 15 Mg Tabcr PO 04/10/25 14:29 15 mg Q12HR MON[place]ERRAT Administration Protocol Ondansetron HCl 4 mg 03/14/25 17:31 03/30/25 01:39 Ondansetron Inj 2 Mg/Ml Inj 2 Ml IV 04/13/25 17:30 4 mg Q6H PRN Administration NAUSEA OR VOMITING Protocol Pantoprazole Sodium 40 mg 03/31/25 09:00 04/07/25 08:30 Pantoprazole Inj 40 Mg Vial IVP 04/30/25 08:59 40 mg QDAY [place] Administration Polyethylene Glycol 17 gm 03/26/25 18:00 04/07/25 08:30 Polyethylene Glycol 17 Gm Packet PO 04/25/25 17:59 17 gm QDAY [place] Administration Sennosides 1 tab 03/26/25 18:00 04/07/25 08:30 Senna Tablet PO 04/25/25 17:59 1 tab QDAY MON[place] Administration Protocol Sevelamer Carbonate 800 mg 04/03/25 12:00 04/07/25 12:14 Sevelamer Carbonate 800 Mg Tablet PO 05/03/25 11:59 800 mg TIDWM [place] Administration Sodium Chloride 3 ml 03/31/25 06:26 Sodium Cl Rt Marjorie 3% 4 Ml Nebu (Non-Formulary) INH 04/16/25 18:59 Q6HRRT PRN To induce cough Plan 49-year-old male with past medical history of DM2, hypertension, ESRD (HD ), HFpEF (EF 55% on 2021), and right BKA due to osteomyelitis was initially admitted to the ICU on 03/14/2025 for acute hypoxic respiratory failure, acute encephalopathy, and shock. He was subsequently extubated and downgraded to telemetry on 03/20/2025 for continuation of care. #Status post acute non-ST segment elevation myocardial infarction, NSTEMI possible type 2 troponin versus NSTEMI. #SVT episodes. #Afib, rate controlled. #Decompensated HFpEF (EF 45-50%). Patient s/p intubation and pressor support in ICU for shock, distributive secondary to sepsis versus cardiogenic. Patient initially presented to ED in SVT and required shock x1. Troponin initially 1.856 uptrended to 7.899 peak. Patient was treated for pneumonia. Patient was able to wean off pressors, extubated, now downgraded to tele. CT LER showed diffuse stenosis on the arteries of the LLE, occlusions in almost all major arteries. Echo done on 03/16/2025 showed LV appears normal with EF 45-50%. Septal dyskinesis is seen, RV appears normal with RVSP 50 mmHg. Mildly dilated LA & RA Mild mitral regurgitation Mild-Moderate TR. 03/21, patient had 2 rapid response events for SVT in the 170-200s which self converted in minutes. 04/01 patient had 2 rapid response calls due to episodes of SVT, was started on amiodarone drip and subsequently underwent electrical cardioversion in ICU. Plan: - continue amiodarone 200 mg BID PO and aspirin 81 mg daily. - Maintain K >4.0 and Mag >2.0. - Continue dialysis per nephrology. #Extensive atherosclerotic cardiovascular disease with bilateral femoral artery occlusions and distal trifurcation disease with gangrenous changes, ruled out. #Vasopressor-induced vasoconstriction and gangrene of B/L fingers, sequelae. #Left foot gangrene, s/p BKA. -Patient has history of right extremity BKA due to severe PAD. This admission after severe shock requiring pressor support patient subsequently developed ischemia of the right and left fingertips. Vascular surgeon stated that the patient is not a candidate at this time for revascularization, however stated that would discuss case with general surgeon. Likely upper extremity digits affected by vasopressor support in combination with severe PAD causing limb ischemia. Angiography showed Normal, nonobstructive epicardial coronary arteries. Mild left ventricular dysfunction, ejection fraction 50%. Right ulnarl artery totally occluded with excellent flow from the radial artery. Left lower extremity angiogram showed widely patent SFA and trifurcation with distal dorsalis pedis 100% occlusion. Right lower extremity angiogram also showed no significant obstructive lesions until trifurcation( amputated BKA).Discontinued on aspirin, plavix and statin after angiography. Plan: - start on Eliquis 2.5 mg BID when possible, obtain general surgery recommendation regarding post op anticoagulation, continue aspirin for now. #Staph hemolyticus bacteremia. Patient tested for gram-positive cocci 2/2 blood cultures on 03/21/2025, first positive blood cultures this admission. Patient has not been febrile, however has had persistent leukocytosis. Patient subsequently getting all lines removed after receiving dialysis. -Repeat echo on 03/23- Aortic valve leaflets with sclerosis calcification thickening of the cusp but no stenosis. No evidence of vegetation detected. Mitral valve annular show mild calcification mitral leaflets with thickening regurgitations.Left atrium appears to be mildly dilated.Left ventricle is normal with evidence of mild anteroseptal hypokinesis with well-preserved ejection fraction of 50 to 55%. Right heart structures normal. Mild tricuspid regurgitation with no evidence of pulmonary hypertension normal PA pressures. Tricuspid and pulmonic valves appear normal no vegetations. Compared to the study a week ago no change except some improvement in LV function. Repeat blood cultures is negative. HD catheter was exchanged. Plan: -Continue vancomycin and daptomycin IV as per ID recs. Rest of conditions to continue current management per primary team: #Septic shock, resolved. #Acute hypoxic respiratory failure. #Community-acquired pneumonia, Stenotrophomonas maltophilia. #ESRD (HD on ). #History of type 2 diabetes. #Respiratory acidosis, resolved. #HAGMA, resolved. #Lactic acidosis, resolved. #Hyperkalemia, resolved. #Shock liver, resolved. #Possible GI bleed. #Macrocytic anemia. #Thrombocytopenia. #Hematemesis, resolved. #Hypoglycemia, resolved. Discussed the patient with my attending Dr Villalobos. Minh Smith MD, PGY 2. Disclaimer: This note was dictated by speech recognition. Minor errors in weight reducing technician may be present due to voice recognition software.
[2025-04-08] VITALS (27 sets, daily range): BP systolic 91–145; BP diastolic 51–87; PULSE 63–83; RESP 6–19; TEMP 36.1–36.8; O2SAT 90–100
[2025-04-08] MEDS: HYDROcodone/APAP 10/325 TAB PO ×3 (05:41→23:11)
[2025-04-08 05:52] LABS: Basophils % (Auto) 0 % (0-2.5); Eosinophils # (Auto) 0.4 Thou/mm3 (0.0-0.5); Eosinophils % (Auto) 4 % (0-10); Hematocrit 24.5 % (41.0-53.0); Immature Granulocytes % (Auto) 7 % (0-0); Lymphocytes % (Auto) 10 % (10-50); Mean Corpuscular HGB Conc 30.6 g/dl (31.0-37.0); Mean Corpuscular Hemoglobin 31.5 pg (25.0-35.0); Mean Corpuscular Volume 103 fL (80-100); Monocytes # (Auto) 0.9 Thou/mm3 (0.0-0.8); Monocytes % (Auto) 9 % (0-12); Neutrophils # (Auto) 7.5 Thou/mm3 (1.8-7.7); Neutrophils % (Auto) 71 % (37-80); Nucleated Red Blood Cell % 0 /100 WBC (0); Platelet Count 144 Thou/mm3 (140-440); Red Blood Count 2.38 Miln/mm3 (4.50-5.90); White Blood Count 10.5 Thou/mm3 (3.8-10.6)
[2025-04-08 06:05] LABS: Hemoglobin 7.5 g/dL (13.5-16.0)
[2025-04-08 06:16] LABS: Alanine Aminotransferase 14 U/L (10-49); Alkaline Phosphatase 76 U/L (46-116); Anion Gap 8 (7-16); Aspartate Amino Transferase 11 U/L (0-34); BUN/Creatinine Ratio 9 Ratio (12-20); Bilirubin,Total 0.5 mg/dL (0.3-1.2); Blood Urea Nitrogen 41 mg/dL (9-23); Calcium (Corrected) 8.8 mg/dL (8.5-10.1); Carbon Dioxide 28.9 mMol/L (20.0-31.0); Chloride 99 mMol/L (98-107); Creatinine (Component) 4.4 mg/dL (0.6-1.3); Estimated Creatinine Clearance 26.7 mL/min (>60); Globulin 2.9 gm/dL (2.3-3.5); Glucose 80 mg/dL (74-106); Magnesium 2.2 mg/dL (1.6-2.6); Osmolality,Calculated 281 (275-295); Phosphorous 6.6 mg/dL (2.4-5.1); Potassium 4.7 mMol/L (3.4-5.1); Sodium 136 mMol/L (136-145); Total Protein 5.9 gm/dL (5.7-8.2); eGFR 15 See Note
--- NOTE | 2025-04-08 08:38 | PC.SS ---
Addendum entered by Gabriela Garcia 04/08/25 15:03: SS follow up note; SS contacted patient's insurance Des, and at the time the authorization is still pending and under clinical review. SS provided Des with SS contact number. Addendum entered by Gabriela Garcia 04/08/25 11:08: SS follow up note; SS contacted patient's insurance Des, and at the time the authorization is still pending and under review. SS provided Des with SS contact number. SS will attempt to check status again at a later time. Original Note: SS follow up note; SS attempted to contact patient's insurance Des at [phone], in order to obtain auth. SS left voicemail and call back number.
--- NOTE | 2025-04-08 11:02 | PD.RESPRO ---
Documentation for date of: 04/08/25 Subjective Subjective Interval history: Patient was seen examined at bedside this morning. No acute overnight events. Patient was getting hemodialysis this morning. Patient had no new complaints today, but it was wondering when he was able to go home and we stated that we are still pending insurance authorization for placement. Exam Vital Signs Temp Pulse Resp BP Pulse Ox O2 Del Method O2 Flow Rate 98.2 F 64 18 98/61 100 Humidified Nasal Cannula 5 04/08/25 10:16 04/08/25 10:48 04/08/25 10:16 04/08/25 10:48 04/08/25 10:16 04/08/25 08:00 04/08/25 10:16 FiO2 50 04/08/25 08:00 Narrative Exam General: AO x 3, no acute distress Eyes: Pupils reactive to light, EOMI, vision intact Ears: No visible ear discharge Nose: No visible nasal discharge. Mouth/Throat: Moist mucous membranes, no redness, no lesions. Neck: Neck supple, no cervical lymphadenopathy. Lungs: Clear CHRISTIANO Cardio: Normal S1/S2, irregular, no murmurs, no JVD Abdomen: Soft, non-tender, no palpable masses, peristalsis present, no guarding or rebound Extremities: Right BKA with cyanotic changes which have slightly improved, left distal leg amputation above ankle level with still serosanguineous discharge present but improved, right upper extremity digits show necrotic changes at the tips and extending proximally. Skin: Right upper extremity digits show necrotic changes at the tips with some bullae Neuro: No focal neurological deficits, motor and sensory intact Objective Labs 04/09/25 05:48 04/09/25 05:48 Labs: Laboratory Results - last 24 hr 04/08/25 04:55 WBC 10.5 RBC 2.38 L Hgb 7.5 L Hct 24.5 L MCV 103 H MCH 31.5 MCHC 30.6 L RDW Std Deviation 69.0 H Plt Count 144 Neut % (Auto) 71 Lymph % (Auto) 10 [place] % (Auto) 9 Eos % (Auto) 4 Baso % (Auto) 0 Neut # (Auto) 7.5 Lymph # (Auto) 1.0 [place] # (Auto) 0.9 H Eos # (Auto) 0.4 Baso # (Auto) 0.0 Immature Gran # (Auto) 0.70 H Absolute Nucleated RBC 0.00 Immature Gran % 7 H Nucleated RBC % 0 Sodium 136 Potassium 4.7 D Chloride 99 Carbon Dioxide 28.9 Anion Gap 8 BUN 41 H Creatinine 4.4 H* D Estim Creat Clear Calc 26.7 L eGFR 15 L BUN/Creatinine Ratio 9 L Glucose 80 Calculated Osmolality 281 Calcium 8.0 L Corrected Calcium 8.8 Phosphorus 6.6 H Magnesium 2.2 Total Bilirubin 0.5 AST 11 ALT 14 Alkaline Phosphatase 76 Total Protein 5.9 Albumin 3.0 L Globulin 2.9 Albumin/Globulin Ratio 1.0 L ABG Interpretation ABG results: 03/14/25 03/14/25 03/14/25 14:44 16:44 18:53 ABG pH 7.03 L* 7.04 L* 7.10 L* ABG pCO2 43 50 H 46 ABG pO2 86 128 H D 57 L* D ABG HCO3 11 L 13 L 14 L ABG O2 Saturation 91 97 78 L ABG Base Excess -19 L -17 L -15 L VBG pH VBG pCO2 VBG pO2 VBG Base Excess 03/14/25 03/15/25 03/15/25 21:20 05:07 12:28 ABG pH 7.21 L D 7.41 D ABG pCO2 32 D 31 L ABG pO2 116 H D 74 L D ABG HCO3 13 L 20 ABG O2 Saturation 97 95 ABG Base Excess -14 L -4 L VBG pH 7.43 VBG pCO2 34 L VBG pO2 37 VBG Base Excess -1 03/16/25 03/16/25 03/16/25 04:51 11:48 19:30 ABG pH 7.46 H 7.22 L D 7.38 D ABG pCO2 29 L 66 H D 48 D ABG pO2 78 L 79 L 236 H D ABG HCO3 21 27 H 29 H ABG O2 Saturation 96 91 100 H ABG Base Excess -2 -2 3 VBG pH VBG pCO2 VBG pO2 VBG Base Excess 03/17/25 03/18/25 03/19/25 04:53 09:27 04:46 ABG pH 7.38 7.35 ABG pCO2 49 H 48 ABG pO2 78 L D 92 ABG HCO3 29 H 26 ABG O2 Saturation 95 98 ABG Base Excess 3 0 VBG pH 7.34 VBG pCO2 54 D VBG pO2 34 VBG Base Excess 2 03/24/25 04/01/25 04/01/25 22:00 04:53 15:50 ABG pH 7.33 L 7.23 L ABG pCO2 48 62 H ABG pO2 233 H 102 ABG HCO3 25 26 ABG O2 Saturation 101 H 98 ABG Base Excess -1 -2 VBG pH 7.24 L VBG pCO2 57 H VBG pO2 51 VBG Base Excess -3 04/01/25 04/02/25 04/03/25 18:40 04:45 05:17 ABG pH 7.24 L 7.24 L 7.31 L ABG pCO2 61 H 59 H 56 H ABG pO2 207 H D 203 H 123 H D ABG HCO3 26 25 28 H ABG O2 Saturation 101 H 101 H 100 H ABG Base Excess -2 -3 2 VBG pH VBG pCO2 VBG pO2 VBG Base Excess 04/04/25 05:02 ABG pH 7.33 L ABG pCO2 51 H ABG pO2 114 H ABG HCO3 27 H ABG O2 Saturation 100 H ABG Base Excess 1 VBG pH VBG pCO2 VBG pO2 VBG Base Excess Quality Measures Quality Measures VTE prophylaxis Assessment & Plan Assessment Current Active Medications: Generic Name Dose Route Start Last Admin Trade Name Freq PRN Reason Stop Dose Admin Acetaminophen 650 mg 03/20/25 11:35 03/21/25 06:39 Acetaminophen 325 Mg Tablet PO 04/19/25 11:34 650 mg Q6HR PRN Administration pain and Fever >100.4 Protocol Hydrocodone Bitart/Acetaminophen 1 tab 04/04/25 11:48 04/08/25 05:41 Hydrocodone/Apap 10/325 Tab PO 04/09/25 11:47 1 tab Q6HR PRN Administration PAIN SCALE 4-6 (Moderate Amiodarone HCl 200 mg 04/05/25 09:00 04/07/25 20:36 Amiodarone Hcl 200 Mg Tablet PO 05/05/25 08:59 200 mg BID MONTSERRAT Administration Apixaban 2.5 mg 04/08/25 10:15 Apixaban 2.5 Mg Tablet PO 05/08/25 10:14 BID MON[place]ERRAT Artificial Tears 0 drop 04/04/25 21:37 04/04/25 21:53 Artificial Tears 225 Drop/15 Ml Btl BOTH EYES 05/04/25 21:36 2 drop PRN PRN Administration TO KEEP EYES MOIST Aspirin 81 mg 04/03/25 12:00 04/07/25 08:31 Aspirin Ec 81 Mg Tabec PO 05/03/25 11:59 81 mg QDAY MON[place]AT Administration Dextrose 25 ml 04/01/25 04:32 Dextrose 50%-Water Inj 50 Ml Syringe IV 05/01/25 04:31 Q15MIN PRN BG 50-70 responsive npo pt Dextrose 50 ml 04/01/25 04:32 04/01/25 05:21 Dextrose 50%-Water Inj 50 Ml Syringe IV 05/01/25 04:31 50 ml Q15MIN PRN Administration BG <50 OR BG <70 & pt unresponsive Glucagon 1 mg 04/01/25 04:32 Glucagon Inj 1 Mg Vial IM Q15MIN PRN BG <70, and no IV access Heparin Sodium (Porcine) 3,800 unit 03/30/25 08:26 04/04/25 12:54 Heparin Sod Inj 1000 Unit/Ml Vial 10 Ml INDWELLCAT 04/13/25 08:25 3,800 unit PRN PRN Administration DIALYSIS Hydromorphone HCl 1 mg 04/06/25 08:00 Hydromorphone Inj 2 Mg/Ml Vial IVP 04/08/25 14:49 Q4HR PRN BREAKTHROUGH PAIN 7-10 Albumin Human 25 gm in 100 mls @ 100 mls/hr 04/01/25 07:37 04/02/25 09:00 Albuminar-25 Ivpb IV Infused PRN PRN Infusion DIALYSIS Daptomycin 500 mg/ Sodium 60 mls @ 120 mls/hr 04/01/25 15:00 04/07/25 14:20 Chloride 10 ml/ Sodium IV 04/08/25 14:59 120 mls/hr Chloride QOD@1500 MONTSERRAT Administration Protocol Piperacillin Sod/Tazobactam 100 mls @ 200 mls/hr 04/02/25 15:29 04/07/25 20:35 Sod 4.5 gm/ Sodium Chloride IV 04/09/25 15:28 200 mls/hr Q12HR MON[place]ERRAT Administration Insulin Human Lispro 0 unit 04/02/25 17:00 04/08/25 09:26 Insulin Lispro (Admelog) 1 Unit/0.01 Ml Unit SC 05/02/25 16:59 Not Given ACHS MONTSERRAT Protocol Levalbuterol HCl 0.31 mg 03/28/25 10:24 03/31/25 00:37 Levalbuterol Rt 0.31 Mg/3 Ml Nebu INH 04/19/25 12:14 0.31 mg Q6HRRT PRN Administration Wheezing Lorazepam 1 mg 04/01/25 08:11 Lorazepam 2 Mg/Ml Vial IVP Q5MIN PRN seizure Morphine Sulfate 15 mg 04/05/25 14:30 04/07/25 20:35 Morphine Sulf 15 Mg Tabcr PO 04/10/25 14:29 15 mg Q12HR MONTSERRAT Administration Protocol Ondansetron HCl 4 mg 03/14/25 17:31 03/30/25 01:39 Ondansetron Inj 2 Mg/Ml Inj 2 Ml IV 04/13/25 17:30 4 mg Q6H PRN Administration NAUSEA OR VOMITING Protocol Pantoprazole Sodium 40 mg 04/08/25 09:00 Pantoprazole 40 Mg Tablet PO 05/08/25 08:59 QDAY [place] Polyethylene Glycol 17 gm 03/26/25 18:00 04/07/25 08:30 Polyethylene Glycol 17 Gm Packet PO 04/25/25 17:59 17 gm QDAY MONTSERRAT Administration Sennosides 1 tab 03/26/25 18:00 04/07/25 08:30 Senna Tablet PO 04/25/25 17:59 1 tab QDAY MONTSERRAT Administration Protocol Sevelamer Carbonate 800 mg 04/03/25 12:00 04/07/25 17:36 Sevelamer Carbonate 800 Mg Tablet PO 05/03/25 11:59 800 mg TIDWM MON[place]ERRAT Administration Sodium Chloride 3 ml 03/31/25 06:26 Sodium Cl Rt Marjorie 3% 4 Ml Nebu (Non-Formulary) INH 04/16/25 18:59 Q6HRRT PRN To induce cough Plan 49-year-old male with past medical history of DM2, hypertension, ESRD (HD ), HFpEF (EF 55% on 2021), and right BKA due to osteomyelitis was admitted to the ICU on 03/14/2025 for acute hypoxic respiratory failure, acute encephalopathy, and shock. He was extubated and downgraded to telemetry on 03/20/2025. #Right ulnar artery occlusion #Right upper extremity multiple digit necrosis #Left lower extremity gangrene/tissue necrosis s/p guillotine amputation distal #Peripheral Vascular disease, severe Abdomen CTA with runoff that showed occlusion of multiple arteries including the left radial, gluteal, and tibial arteries as well as 90% stenosis of the left superficial femoral artery Also showed 80% stenosis of right superficial femoral artery. Patient had his angiogram done yesterday showed right ulnar artery to be totally occluded or absent and there was no CAD. 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 Patient again went into SVT and received adenosine 6mg x1 and adenosine 12mg x1 before being cardioverted. Repeat EKG showed what appears to be MAT. [id number] score of 3 points indicating 3.2% risk of stroke per year HAS-BLED score of 5 points Patient had his angiogram done 03/31/2025 showed right ulnar artery to be totally occluded or absent and there was no CAD. Cardiology recommended to stop patient's aspirin, Plavix, metoprolol, and statin Patient had a rapid response called on 04/01/2025 was tachycardic in the 140s and EKG looked to be like a SVT. Patient was cardioverted and was then in the heart rates in the 60s. Plan: Continue amiodarone 200 mg twice daily Start Eliquis 2.5 mg BID Keep Potassium >4 and Mg >2 Transit Bus Operator consulted, appreciate recommendations #HFpEF (EF 50-55% on 2024). Echo on 03/16/2025 showed EF of 45 to 50% and septal dyskinesis. Echo on 03/23/2025 shows some improvement and left ventricle function with an EF of 50 to 55% Plan: Will continue with hemodialysis with fluid removal. Daily weights. Strict JENN's. fluid restriction. #ESRD (HD on ). Patient was on hemodialysis and had AV fistula, but was clotted therefore cannot be used. Tunnedled dialysis cath placed 03/26/2025 Plan: Continue hemodialysis as scheduled. Continue sevelamer 800 mg 3 times daily Refrigeration System Installer Dr. Pleitez following, appreciate recommendations Avoid nephrotoxic agents. Renally dose medications. #Macrocytic anemia. #Thrombocytopenia, improving Patient's hemoglobin was downtrending from 11.9 on admission Hemoglobin 7.5 and platelets 144 No active signs of bleeding Plan: Continue to monitor daily CBC Transfuse if Hgb less than 7. #Transaminitis, resolved #Hepatomegaly. Hepatitis panel negative and abdominal ultrasound that shows some hepatomegaly with possible cirrhosis versus hepatocellular disease. Plan: Continue monitoring daily labs #Hx of DM2. A1c 5.4 No need for ISS #Acute Hypoxic resp failure in the setting of Left base PNA, improving #Stenotrophomonas maltophilia pneumonia, resolved . #Respiratory acidosis, resolved. #Septic shock, resolved. #Troponinemia, resolved #Hematemesis, resolved #HAGMA, resolved. #Lactic acidosis, resolved. #Staph Hemolyticus bacteremia, resolved (finished course of vancomycin 03/23-04/05) #CLABSI, resolved #Hyperbilirubinemia, resolved Hospital Maintenance: Disposition: Pending placement Diet: renal DVT ppx: Heparin 5000 SC Q12H GI ppx: Protonix . Code status: DNR. Case disclosed with Attending Dr. Amrit Lee PGY1 Disclaimer: This note was dictated by speech recognition and even though it was carefully revised there may still be minor errors in operations research director due to voice recognition software. Attending Provider Attestation/Addendum I reviewed labs, imaging, EKG, home medications and prior available records. Face to face evaluation was performed by me. I have personally examined the patient and discussed assessment and plan with the IM team. I reviewed the resident note and agree with the plan with exceptions as below. Acute encephalopathy, resolved Acute hypoxic respiratory failure, status post intubation, s/p extubation ESRD on hemodialysis HFrEF EF 45 to 50% Atrial fibrillation with controlled ventricular rhythm PAD Gangrene of toes and fingers, in the setting of severe PAD in the vasopressors Non-STEMI Clotting of dialysis fistula Leukocytosis, improved Status post guillotine left foot amputation on 04/01 Continue daptomycin and Zosyn till 04/08 Status post cardiac catheterization that showed nonobstructive CAD Status post angiogram that showed severe PAD with occlusions. Continue pain management orally Status post permacath on 03/26 Outpatient follow-up with vascular surgery for the clotted fistula Monitor H&H: Stable Started diltiazem for the A-fib. Continue Eliquis 2.5 mg twice daily Continue aspirin Continue hemodialysis per nephrology recommendations PT recommended SNF. He is not on hospice. Pending authorization for the placement
[2025-04-08] MEDS: HEPARIN SOD INJ 1000 UNIT/ML VIAL 10 ML 3800 UNIT INDWELLCAT (11:06)
[2025-04-08] MEDS: PIPER/TAZO INJ 4.5 GM in SODIUM CHLORIDE 0.9% (POP) 100 ML IV ×2 (11:13→20:26)
[2025-04-08] MEDS: SEVELAMER CARBONATE 800 MG TABLET PO ×2 (11:13→17:50)
[2025-04-08] MEDS: POLYETHYLENE GLYCOL 17 GM PACKET PO (11:13)
[2025-04-08] MEDS: AMIODARONE HCL 200 MG TABLET PO ×2 (11:14→20:26)
[2025-04-08] MEDS: SENNA TABLET 1 TAB PO (11:14)
[2025-04-08] MEDS: APIXABAN 2.5 MG TABLET PO ×2 (11:14→20:31)
[2025-04-08] MEDS: PANTOPRAZOLE 40 MG TABLET PO (11:15)
[2025-04-08] MEDS: Morphine Sulf 15 MG TABCR PO ×2 (11:15→20:31)
[2025-04-08] MEDS: ASPIRIN EC 81 MG TABEC PO (11:15)
--- NOTE | 2025-04-08 12:26 | ESPR_ITS ---
Documentation for date of: 04/08/25 Subjective Subjective Interval history: Mr. Mcclain is a 49-year-old male with past medical history of type 2 diabetes mellitus, hypertension, end-stage renal disease (HD ), HFpEF (EF 50 to 55% 02/2025) and right BKA due to osteomyelitis who was brought in by ambulance to [facility] emergency department on 03/14/2025 with a chief complaint of altered mental status. Patient was intubated secondary to inability to protect airway. On presentation patient's assisted with procuring history, per patient's patient had progressive shortness of breath and had change in mentation, patient was found to be in SVT when EMS arrived was shocked once and was converted to sinus rhythm. Patient also had to get additional sessions of hemodialysis due to increase in weight, last session of hemodialysis before admission to the hospital was on 12 March 2025. Patient also does have history of methamphetamine use, urine tox screen was positive for methamphetamine and marijuana on presentation. With the progression of hospital course patient was initially managed in the intensive care unit for acute hypoxic respiratory failure was found to have stenotrophomonas maltophilia pneumonia was treated with IV antibiotics, had significant lactic acidosis respiratory acidosis and high anion gap metabolic acidosis which improved in ICU patient did require CRRT and was eventually transition to hemodialysis, patient was eventually extubated on downgraded to telemetry on 03/20/2025. Patient's hospital stay is further complicated with possible acute versus chronic limb ischemia and underlying severe peripheral vascular disease, scheme technician discussed case with vascular surgeon at [facility] during the hospitalization, patient was a poor candidate for revascularization per documentation. Patient started on amiodarone for underlying atrial fibrillation and eventually infectious disease consulted for Staph haemolyticus bacteremia possible CLABSI. Patient continue to receive inpatient hemodialysis. 03/25/2025: Patient successfully completed 3 hours 4 minutes of dialysis session today, postdialysis weight 115.9 kg was hypotensive at times during the dialysis, tolerated dialysis well through the temporary dialysis catheter. Net fluid removed 0.5 L. Blood pressure was soft, received 2 bags of albumin during the dialysis session.Patient will need permanent dialysis catheter placement, will be scheduled with interventional radiology in a.m. after holding aspirin and Plavix. Patient will be made n.p.o. after midnight by primary team. 03/26/2025: Patient seen and examined at bedside, patient had permanent tunneled dialysis catheter placed today. Currently complains of some back pain. Patient will continue to receive IV antibiotics until 04/05/2025 with hemodialysis. Otherwise patient is stable, has no current complaints. Anticipate discharge in next 24 hours on supplemental oxygen. 03/27/2025:Patient received dialysis treatment today, completed about 2 hours of dialysis session, about 1.1 L fluid removed, postdialysis weight 115 kg, was administered 100 mL albumin during the dialysis session for low blood pressure, patient did receive alteplase through the indwelling catheter x 1. Primary team discussed the case with patient and patient's family, patient has been requiring an extensive amount of IV pain medication, further plan by primary team is to discharge patient to [facility] facility and not on hospice as patient does not have underlying clear etiology for hospice. Patient's DAPT being held, cardiology following the case and patient may undergo angiogram heart, bilateral upper and lower extremities on Saturday. 03/28/2025: Patient continues to complain of pain, patient's gabapentin changed to pregabalin 25 twice daily and [place] was increased to 7.5 mg. Patient Aspirin and Plavix being held, patient going to undergo cardiac angiogram and angiogram upper and lower extremities likely in the morning. Will coordinate with cardiology. 03/29/2025: Labs and Vitals reviewed. Patient scheduled for Procedure with Cardiology Today, will plan for dialysis pot procedure after discussion with Cardiology Team, otherwise patient is stable, has no current complains. Pregabalin dose adjusted by primrary team. 03/30/2025: Patient received dialysis treatment today, received dialysis for 3 hours 6-minute, about 2 L fluid removed, postdialysis weight 112.3, patient was administered 100 mL of albumin during dialysis. Patient had his angiogram done yesterday showed right ulnar artery to be totally occluded or absent and there was no CAD. Cardiology recommended to stop patient's aspirin, Plavix, metoprolol, and statin and they also started the patient on diltiazem. They also recommended to get general surgery for possible amputation and to start Eliquis 2.5 mg twice daily after the patient has surgery. Will consult general surgery for possible amputation. 03/31/2025: Patient seen and examined at bedside, labs and vitals reviewed. Patient received dialysis yesterday, patient is being evaluated by general surgery for possible amputation. Otherwise has no current complaints, reports no new concerns. 04/01/2025: Patient upgraded to ICU earlier this morning, patient had seizure- like episode. Patient was given Ativan 1 mg x 1. Patient later had another rapid response called with heart rate in 140s and SpO2 in low 80s, patient was very lethargic MAP was found to be in the range of 55-64. Patient eventually upgraded to ICU for IV pressors, patient started on phenylephrine in ICU. Patient will receive dialysis today, scheduled for BKA by surgery later today. 04/03/2025: Patient seen and examined at bedside in ICU, patient was started on OIL AND GAS LEASE PUMPER, for about 12 hours, had about 1 L fluid removed.Patient was weaned off of phenylephrine, currently not requiring any pressors. Patient does have significant right hand pain due to digital necrosis, is on Dilaudid for pain management. Bilingual Instructor team will obtain punch biopsy today of the skin for further analysis. 04/04/2025: Patient seen and examined at bedside, currently in ICU physically, was downgraded to telemetry yesterday. Patient received dialysis treatment today, goal is to remove about 3 L fluid, patient will likely need another session of dialysis tomorrow morning, patient has significant amount of fluid in the body. Otherwise patient is stable, has no current complaints tolerating dialysis well. 04/05/2025: Patient seen and examined at bedside, currently fluid overloaded as well, will plan for another session of dialysis today with goal to remove fluid. Will continue to monitor patient's fluid status post dialysis today, patient is pending orthopedic consult, is on telemetry. Otherwise has no current complaints. 04/06/2025: Patient seen and examined at bedside, patient received dialysis yesterday 2.7 L removed. Patient received consecutive dialysis for the last two days 2.7 L fluid removed. Patient is stable today, will recieve dialysis today as well, will remove fluid around 2-3L. Pending orthopaedic surgeon evaluation. 04/07/2025: Patient seen and examined at bedside patient received 3 consecutive days of dialysis from 04/04-04/06 had about 3 L removed each day, today patient is euvolemic, saturating well on nasal cannula has no current complaints. Patient will be scheduled for dialysis tomorrow. Patient is pending insurance authorization for placement, patient's pain is managed on extended release morphine. 04/08/2025: Patient seen and examined at bedside, patient received dialysis today, patient had a dialysis session for about 3 hours, 2.5 L fluid removed, postdialysis weight 118.5. Patient is pending placement, otherwise pain is well-managed on oral morphine. Will continue inpatient dialysis. Exam Vital Signs Temp Pulse Resp BP Pulse Ox O2 Del Method O2 Flow Rate 97.2 F 66 6 L 115/67 99 Humidified Nasal Cannula 5 04/08/25 12:00 04/08/25 12:00 04/08/25 12:00 04/08/25 12:00 04/08/25 12:00 04/08/25 12:00 04/08/25 12:00 FiO2 50 04/08/25 12:00 Narrative Exam General: AO x 3, no acute distress Eyes: Pupils reactive to light, EOMI, vision intact Ears: No visible ear discharge Nose: No visible nasal discharge. Mouth/Throat: Moist mucous membranes, no redness, no lesions. Neck: Neck supple, no cervical lymphadenopathy. Lungs: Clear CHRISTIANO Cardio: Normal S1/S2, irregular, no murmurs, no JVD Abdomen: Soft, non-tender, no palpable masses, peristalsis present, no guarding or rebound Extremities: Right BKA with cyanotic changes which have slightly improved, left distal leg amputation above ankle level with still serosanguineous discharge present but improved, right upper extremity digits show necrotic changes at the tips and extending proximally. Skin: Right upper extremity digits show necrotic changes at the tips with some bullae Neuro: No focal neurological deficits, motor and sensory intact Objective Labs 04/08/25 04:55 04/08/25 04:55 Labs: Laboratory Results - last 24 hr 04/08/25 04:55 WBC 10.5 RBC 2.38 L Hgb 7.5 L Hct 24.5 L MCV 103 H MCH 31.5 MCHC 30.6 L RDW Std Deviation 69.0 H Plt Count 144 Neut % (Auto) 71 Lymph % (Auto) 10 Simpson % (Auto) 9 Eos % (Auto) 4 Baso % (Auto) 0 Neut # (Auto) 7.5 Lymph # (Auto) 1.0 Simpson # (Auto) 0.9 H Eos # (Auto) 0.4 Baso # (Auto) 0.0 Immature Gran # (Auto) 0.70 H Absolute Nucleated RBC 0.00 Immature Gran % 7 H Nucleated RBC % 0 Sodium 136 Potassium 4.7 D Chloride 99 Carbon Dioxide 28.9 Anion Gap 8 BUN 41 H Creatinine 4.4 H* D Estim Creat Clear Calc 26.7 L eGFR 15 L BUN/Creatinine Ratio 9 L Glucose 80 Calculated Osmolality 281 Calcium 8.0 L Corrected Calcium 8.8 Phosphorus 6.6 H Magnesium 2.2 Total Bilirubin 0.5 AST 11 ALT 14 Alkaline Phosphatase 76 Total Protein 5.9 Albumin 3.0 L Globulin 2.9 Albumin/Globulin Ratio 1.0 L ABG Interpretation ABG results: 03/14/25 03/14/25 03/14/25 14:44 16:44 18:53 ABG pH 7.03 L* 7.04 L* 7.10 L* ABG pCO2 43 50 H 46 ABG pO2 86 128 H D 57 L* D ABG HCO3 11 L 13 L 14 L ABG O2 Saturation 91 97 78 L ABG Base Excess -19 L -17 L -15 L VBG pH VBG pCO2 VBG pO2 VBG Base Excess 03/14/25 03/15/25 03/15/25 21:20 05:07 12:28 ABG pH 7.21 L D 7.41 D ABG pCO2 32 D 31 L ABG pO2 116 H D 74 L D ABG HCO3 13 L 20 ABG O2 Saturation 97 95 ABG Base Excess -14 L -4 L VBG pH 7.43 VBG pCO2 34 L VBG pO2 37 VBG Base Excess -1 03/16/25 03/16/25 03/16/25 04:51 11:48 19:30 ABG pH 7.46 H 7.22 L D 7.38 D ABG pCO2 29 L 66 H D 48 D ABG pO2 78 L 79 L 236 H D ABG HCO3 21 27 H 29 H ABG O2 Saturation 96 91 100 H ABG Base Excess -2 -2 3 VBG pH VBG pCO2 VBG pO2 VBG Base Excess 03/17/25 03/18/25 03/19/25 04:53 09:27 04:46 ABG pH 7.38 7.35 ABG pCO2 49 H 48 ABG pO2 78 L D 92 ABG HCO3 29 H 26 ABG O2 Saturation 95 98 ABG Base Excess 3 0 VBG pH 7.34 VBG pCO2 54 D VBG pO2 34 VBG Base Excess 2 03/24/25 04/01/25 04/01/25 22:00 04:53 15:50 ABG pH 7.33 L 7.23 L ABG pCO2 48 62 H ABG pO2 233 H 102 ABG HCO3 25 26 ABG O2 Saturation 101 H 98 ABG Base Excess -1 -2 VBG pH 7.24 L VBG pCO2 57 H VBG pO2 51 VBG Base Excess -3 04/01/25 04/02/25 04/03/25 18:40 04:45 05:17 ABG pH 7.24 L 7.24 L 7.31 L ABG pCO2 61 H 59 H 56 H ABG pO2 207 H D 203 H 123 H D ABG HCO3 26 25 28 H ABG O2 Saturation 101 H 101 H 100 H ABG Base Excess -2 -3 2 VBG pH VBG pCO2 VBG pO2 VBG Base Excess 04/04/25 05:02 ABG pH 7.33 L ABG pCO2 51 H ABG pO2 114 H ABG HCO3 27 H ABG O2 Saturation 100 H ABG Base Excess 1 VBG pH VBG pCO2 VBG pO2 VBG Base Excess Quality Measures Quality Measures VTE prophylaxis Assessment & Plan Assessment Current Active Medications: Generic Name Dose Route Start Last Admin Trade Name Freq PRN Reason Stop Dose Admin Acetaminophen 650 mg 03/20/25 11:35 03/21/25 06:39 Acetaminophen 325 Mg Tablet PO 04/19/25 11:34 650 mg Q6HR PRN Administration pain and Fever >100.4 Protocol Hydrocodone Bitart/Acetaminophen 1 tab 04/04/25 11:48 04/08/25 05:41 Hydrocodone/Apap 10/325 Tab PO 04/09/25 11:47 1 tab Q6HR PRN Administration PAIN SCALE 4-6 (Moderate Amiodarone HCl 200 mg 04/05/25 09:00 04/08/25 11:14 Amiodarone Hcl 200 Mg Tablet PO 05/05/25 08:59 200 mg BID MONTSERRAT Administration Apixaban 2.5 mg 04/08/25 10:15 04/08/25 11:14 Apixaban 2.5 Mg Tablet PO 05/08/25 10:14 2.5 mg BID MONTSERRAT Administration Artificial Tears 0 drop 04/04/25 21:37 04/04/25 21:53 Artificial Tears 225 Drop/15 Ml Btl BOTH EYES 05/04/25 21:36 2 drop PRN PRN Administration TO KEEP EYES MOIST Aspirin 81 mg 04/03/25 12:00 04/08/25 11:15 Aspirin Ec 81 Mg Tabec PO 05/03/25 11:59 81 mg QDAY [place] Administration Heparin Sodium (Porcine) 3,800 unit 03/30/25 08:26 04/08/25 11:06 Heparin Sod Inj 1000 Unit/Ml Vial 10 Ml INDWELLCAT 04/13/25 08:25 3,800 unit PRN PRN Administration DIALYSIS Hydromorphone HCl 1 mg 04/06/25 08:00 Hydromorphone Inj 2 Mg/Ml Vial IVP 04/08/25 14:49 Q4HR PRN BREAKTHROUGH PAIN 7-10 Albumin Human 25 gm in 100 mls @ 100 mls/hr 04/01/25 07:37 04/02/25 09:00 Albuminar-25 Ivpb IV Infused PRN PRN Infusion DIALYSIS Piperacillin Sod/Tazobactam 100 mls @ 200 mls/hr 04/02/25 15:29 04/08/25 11:13 Sod 4.5 gm/ Sodium Chloride IV 04/09/25 15:28 200 mls/hr Q12HR MONTSERRAT Administration Levalbuterol HCl 0.31 mg 03/28/25 10:24 03/31/25 00:37 Levalbuterol Rt 0.31 Mg/3 Ml Nebu INH 04/19/25 12:14 0.31 mg Q6HRRT PRN Administration Wheezing Lorazepam 1 mg 04/01/25 08:11 Lorazepam 2 Mg/Ml Vial IVP Q5MIN PRN seizure Morphine Sulfate 15 mg 04/05/25 14:30 04/08/25 11:15 Morphine Sulf 15 Mg Tabcr PO 04/10/25 14:29 15 mg Q12HR MONTSERRAT Administration Protocol Ondansetron HCl 4 mg 03/14/25 17:31 03/30/25 01:39 Ondansetron Inj 2 Mg/Ml Inj 2 Ml IV 04/13/25 17:30 4 mg Q6H PRN Administration NAUSEA OR VOMITING Protocol Pantoprazole Sodium 40 mg 04/08/25 09:00 04/08/25 11:15 Pantoprazole 40 Mg Tablet PO 05/08/25 08:59 40 mg QDAY [place] Administration Polyethylene Glycol 17 gm 03/26/25 18:00 04/08/25 11:13 Polyethylene Glycol 17 Gm Packet PO 04/25/25 17:59 17 gm QDAY MON[place] Administration Sennosides 1 tab 03/26/25 18:00 04/08/25 11:14 Senna Tablet PO 04/25/25 17:59 1 tab QDAY MONTSERRAT Administration Protocol Sevelamer Carbonate 800 mg 04/03/25 12:00 04/08/25 11:13 Sevelamer Carbonate 800 Mg Tablet PO 05/03/25 11:59 800 mg TIDWM MONTSERRAT Administration Sodium Chloride 3 ml 03/31/25 06:26 Sodium Cl Rt Marjorie 3% 4 Ml Nebu (Non-Formulary) INH 04/16/25 18:59 Q6HRRT PRN To induce cough Plan Assessment and Plan: Summary: Mr. Mcclain is a 49 years old male with PMH of DM2, hypertension, ESRD (HD ), HFpEF (EF 55% on 2021), and right BKA due to osteomyelitis BIBA to the ED due to AMS, was intubated and started on pressors and was admitted to the ICU on 03/14/2025 for management of shock of unknown etiology and was started on IV antibiotics. On 03/17 his sputum culture grew stenotrophomonas maltophilia and antibiotics were changed to levofloxacin. He was extubated and downgraded to telemetry on 03/20/2025 for continuation of care. # End-stage renal disease Patient received CRRT in intensive care unit, was transition to hemodialysis. Patient will need a line holiday and placement of due to underlying bacteremia. Primary team to hold aspirin and Plavix, catheter will be exchanged in a.m. possibly Patient received permanent tunneled dialysis catheter placement on 03/26/2025. Plan: - Continue with hemodialysis inpatient, received dialysis today, about 2.5 L removed. - Avoid nephrotoxic agent - Renally dose medications. #Status post acute non-ST segment elevation myocardial infarction, NSTEMI possible type 2 troponin versus NSTEMI. #SVT episodes. #Afib, rate controlled. #Decompensated HFpEF (EF 45-50%). #Extensive atherosclerotic cardiovascular disease with bilateral femoral artery occlusions and distal trifurcation disease with gangrenous changes, ruled out. #Vasopressor-induced vasoconstriction and gangrene of B/L fingers, sequelae. #Left foot gangrene, s/p BKA. #Staph hemolyticus bacteremia. #Septic shock, resolved. #Acute hypoxic respiratory failure. #Community-acquired pneumonia, Stenotrophomonas maltophilia. #History of type 2 diabetes. #Respiratory acidosis, resolved. #HAGMA, resolved. #Lactic acidosis, resolved. #Hyperkalemia, resolved. #Shock liver, resolved. #Possible GI bleed. #Macrocytic anemia. #Thrombocytopenia. #Hematemesis, resolved. #Hypoglycemia, resolved. -Management as per primary team Case discussed with Attending Dr. Pleitez. Marycarmen Clark PGY1 Disclaimer: This note was dictated by speech recognition. Minor errors in electroplater automatic may be present due to voice recognition software. Attending Provider Attestation/Addendum Pt is seen and examined labs are reviewed Agree with assessment and plan by resident Héctor Pleitez MD
--- NOTE | 2025-04-08 16:20 | ESPR_ITS ---
<Statement entered by Yanci Villalobos MD - 04/09/25 07:48> I personally examined the patient evaluated cardiac guillen patient remained stable A-fib rate controlled well does not complain of any chest pain or shortness of breath has a lot of pain in the right hand patient will require probably amputation of the digits by hand surgeon following discharge evaluate the patient with Dr. Wilkinson PGY 2 agree with treatment plan recommendation as documented Documentation for date of: 04/08/25 Subjective Subjective Interval history: Patient was seen and examined at the bedside. No acute overnight events. His BP and HR are appropriate. Patient was started on Eliquis 2.5 mg twice daily. He is set for discharge to SNF, pending authorization. Exam Vital Signs Temp Pulse Resp BP Pulse Ox O2 Del Method O2 Flow Rate 97.2 F 73 14 115/67 92 L Humidified Nasal Cannula 5 04/08/25 12:00 04/08/25 16:00 04/08/25 13:34 04/08/25 12:00 04/08/25 13:34 04/08/25 12:00 04/08/25 13:34 FiO2 50 04/08/25 12:00 Narrative Exam Gen: Well-developed male. HEENT: NCAT, PERRLA, EOMI, MMM, anicteric conjunctivae. CVS: normal S1 and S2. RRR. No M/R/G. Resp: CTA B/L. No rhonchi, rales, crackles or wheezing. Abd: soft, non-tender, non-distended. BS+ in all 4 quadrants. MSK: S/p right BKA, stump appears necrotic, right thigh has blister. S/p left BKA, clean dressing. Dry gangrene over right 2nd and 3rd digits. Tip of left second digit appears necrotic. Neuro: CN II-XII grossly intact. Alert and oriented x3. Psych: appropriate mood and affect. Objective Labs 04/08/25 04:55 04/08/25 04:55 Labs: Laboratory Results - last 24 hr 04/08/25 04:55 WBC 10.5 RBC 2.38 L Hgb 7.5 L Hct 24.5 L MCV 103 H MCH 31.5 MCHC 30.6 L RDW Std Deviation 69.0 H Plt Count 144 Neut % (Auto) 71 Lymph % (Auto) 10 [place] % (Auto) 9 Eos % (Auto) 4 Baso % (Auto) 0 Neut # (Auto) 7.5 Lymph # (Auto) 1.0 [place] # (Auto) 0.9 H Eos # (Auto) 0.4 Baso # (Auto) 0.0 Immature Gran # (Auto) 0.70 H Absolute Nucleated RBC 0.00 Immature Gran % 7 H Nucleated RBC % 0 Sodium 136 Potassium 4.7 D Chloride 99 Carbon Dioxide 28.9 Anion Gap 8 BUN 41 H Creatinine 4.4 H* D Estim Creat Clear Calc 26.7 L eGFR 15 L BUN/Creatinine Ratio 9 L Glucose 80 Calculated Osmolality 281 Calcium 8.0 L Corrected Calcium 8.8 Phosphorus 6.6 H Magnesium 2.2 Total Bilirubin 0.5 AST 11 ALT 14 Alkaline Phosphatase 76 Total Protein 5.9 Albumin 3.0 L Globulin 2.9 Albumin/Globulin Ratio 1.0 L ABG Interpretation ABG results: 03/14/25 03/14/25 03/14/25 14:44 16:44 18:53 ABG pH 7.03 L* 7.04 L* 7.10 L* ABG pCO2 43 50 H 46 ABG pO2 86 128 H D 57 L* D ABG HCO3 11 L 13 L 14 L ABG O2 Saturation 91 97 78 L ABG Base Excess -19 L -17 L -15 L VBG pH VBG pCO2 VBG pO2 VBG Base Excess 03/14/25 03/15/25 03/15/25 21:20 05:07 12:28 ABG pH 7.21 L D 7.41 D ABG pCO2 32 D 31 L ABG pO2 116 H D 74 L D ABG HCO3 13 L 20 ABG O2 Saturation 97 95 ABG Base Excess -14 L -4 L VBG pH 7.43 VBG pCO2 34 L VBG pO2 37 VBG Base Excess -1 03/16/25 03/16/25 03/16/25 04:51 11:48 19:30 ABG pH 7.46 H 7.22 L D 7.38 D ABG pCO2 29 L 66 H D 48 D ABG pO2 78 L 79 L 236 H D ABG HCO3 21 27 H 29 H ABG O2 Saturation 96 91 100 H ABG Base Excess -2 -2 3 VBG pH VBG pCO2 VBG pO2 VBG Base Excess 03/17/25 03/18/25 03/19/25 04:53 09:27 04:46 ABG pH 7.38 7.35 ABG pCO2 49 H 48 ABG pO2 78 L D 92 ABG HCO3 29 H 26 ABG O2 Saturation 95 98 ABG Base Excess 3 0 VBG pH 7.34 VBG pCO2 54 D VBG pO2 34 VBG Base Excess 2 03/24/25 04/01/25 04/01/25 22:00 04:53 15:50 ABG pH 7.33 L 7.23 L ABG pCO2 48 62 H ABG pO2 233 H 102 ABG HCO3 25 26 ABG O2 Saturation 101 H 98 ABG Base Excess -1 -2 VBG pH 7.24 L VBG pCO2 57 H VBG pO2 51 VBG Base Excess -3 04/01/25 04/02/25 04/03/25 18:40 04:45 05:17 ABG pH 7.24 L 7.24 L 7.31 L ABG pCO2 61 H 59 H 56 H ABG pO2 207 H D 203 H 123 H D ABG HCO3 26 25 28 H ABG O2 Saturation 101 H 101 H 100 H ABG Base Excess -2 -3 2 VBG pH VBG pCO2 VBG pO2 VBG Base Excess 04/04/25 05:02 ABG pH 7.33 L ABG pCO2 51 H ABG pO2 114 H ABG HCO3 27 H ABG O2 Saturation 100 H ABG Base Excess 1 VBG pH VBG pCO2 VBG pO2 VBG Base Excess Quality Measures Quality Measures VTE prophylaxis Assessment & Plan Assessment Current Active Medications: Generic Name Dose Route Start Last Admin Trade Name Freq PRN Reason Stop Dose Admin Acetaminophen 650 mg 03/20/25 11:35 03/21/25 06:39 Acetaminophen 325 Mg Tablet PO 04/19/25 11:34 650 mg Q6HR PRN Administration pain and Fever >100.4 Protocol Hydrocodone Bitart/Acetaminophen 1 tab 04/04/25 11:48 04/08/25 14:22 Hydrocodone/Apap 10/325 Tab PO 04/09/25 11:47 1 tab Q6HR PRN Administration PAIN SCALE 4-6 (Moderate Amiodarone HCl 200 mg 04/05/25 09:00 04/08/25 11:14 Amiodarone Hcl 200 Mg Tablet PO 05/05/25 08:59 200 mg BID MONTSERRAT Administration Apixaban 2.5 mg 04/08/25 10:15 04/08/25 11:14 Apixaban 2.5 Mg Tablet PO 05/08/25 10:14 2.5 mg BID MON[place]ERRAT Administration Artificial Tears 0 drop 04/04/25 21:37 04/04/25 21:53 Artificial Tears 225 Drop/15 Ml Btl BOTH EYES 05/04/25 21:36 2 drop PRN PRN Administration TO KEEP EYES MOIST Aspirin 81 mg 04/03/25 12:00 04/08/25 11:15 Aspirin Ec 81 Mg Tabec PO 05/03/25 11:59 81 mg QDAY [place] Administration Heparin Sodium (Porcine) 3,800 unit 03/30/25 08:26 04/08/25 11:06 Heparin Sod Inj 1000 Unit/Ml Vial 10 Ml INDWELLCAT 04/13/25 08:25 3,800 unit PRN PRN Administration DIALYSIS Albumin Human 25 gm in 100 mls @ 100 mls/hr 04/01/25 07:37 04/02/25 09:00 Albuminar-25 Ivpb IV Infused PRN PRN Infusion DIALYSIS Piperacillin Sod/Tazobactam 100 mls @ 200 mls/hr 04/02/25 15:29 04/08/25 11:13 Sod 4.5 gm/ Sodium Chloride IV 04/09/25 15:28 200 mls/hr Q12HR MONTSERRAT Administration Levalbuterol HCl 0.31 mg 03/28/25 10:24 03/31/25 00:37 Levalbuterol Rt 0.31 Mg/3 Ml Nebu INH 04/19/25 12:14 0.31 mg Q6HRRT PRN Administration Wheezing Lorazepam 1 mg 04/01/25 08:11 Lorazepam 2 Mg/Ml Vial IVP Q5MIN PRN seizure Morphine Sulfate 15 mg 04/05/25 14:30 04/08/25 11:15 Morphine Sulf 15 Mg Tabcr PO 04/10/25 14:29 15 mg Q12HR MONTSERRAT Administration Protocol Ondansetron HCl 4 mg 03/14/25 17:31 03/30/25 01:39 Ondansetron Inj 2 Mg/Ml Inj 2 Ml IV 04/13/25 17:30 4 mg Q6H PRN Administration NAUSEA OR VOMITING Protocol Pantoprazole Sodium 40 mg 04/08/25 09:00 04/08/25 11:15 Pantoprazole 40 Mg Tablet PO 05/08/25 08:59 40 mg QDAY [place] Administration Polyethylene Glycol 17 gm 03/26/25 18:00 04/08/25 11:13 Polyethylene Glycol 17 Gm Packet PO 04/25/25 17:59 17 gm QDAY MON[place]AT Administration Sennosides 1 tab 03/26/25 18:00 04/08/25 11:14 Senna Tablet PO 04/25/25 17:59 1 tab QDAY MON[place]AT Administration Protocol Sevelamer Carbonate 800 mg 04/03/25 12:00 04/08/25 14:24 Sevelamer Carbonate 800 Mg Tablet PO 05/03/25 11:59 Not Given TIDWM MON[place]AT Sodium Chloride 3 ml 03/31/25 06:26 Sodium Cl Rt Marjorie 3% 4 Ml Nebu (Non-Formulary) INH 04/16/25 18:59 Q6HRRT PRN To induce cough Plan 49-year-old male with past medical history of DM2, hypertension, ESRD (HD ), HFpEF (EF 55% on 2021), and right BKA due to osteomyelitis was initially admitted to the ICU on 03/14/2025 for acute hypoxic respiratory failure, acute encephalopathy, and shock. He was subsequently extubated and downgraded to telemetry on 03/20/2025 for continuation of care. #Status post acute non-ST segment elevation myocardial infarction, NSTEMI possible type 2 troponin versus NSTEMI. #SVT episodes. #Afib, rate controlled. #Decompensated HFpEF (EF 45-50%). Patient s/p intubation and pressor support in ICU for shock, distributive secondary to sepsis versus cardiogenic. Patient initially presented to ED in SVT and required shock x1. Troponin initially 1.856 uptrended to 7.899 peak. Patient was treated for pneumonia. Patient was able to wean off pressors, extubated, now downgraded to tele. CT LER showed diffuse stenosis on the arteries of the LLE, occlusions in almost all major arteries. Echo done on 03/16/2025 showed LV appears normal with EF 45-50%. Septal dyskinesis is seen, RV appears normal with RVSP 50 mmHg. Mildly dilated LA & RA Mild mitral regurgitation Mild-Moderate TR. 03/21, patient had 2 rapid response events for SVT in the 170-200s which self converted in minutes. 04/01 patient had 2 rapid response calls due to episodes of SVT, was started on amiodarone drip and subsequently underwent electrical cardioversion in ICU. Plan: - continue amiodarone 200 mg BID PO and aspirin 81 mg daily. - started on Eliquis 2.5 mg BID. - Maintain K >4.0 and Mag >2.0. - Continue dialysis per nephrology. #Extensive atherosclerotic cardiovascular disease with bilateral femoral artery occlusions and distal trifurcation disease with gangrenous changes, ruled out. #Vasopressor-induced vasoconstriction and gangrene of B/L fingers, sequelae. #Left foot gangrene, s/p BKA. -Patient has history of right extremity BKA due to severe PAD. This admission after severe shock requiring pressor support patient subsequently developed ischemia of the right and left fingertips. Vascular surgeon stated that the patient is not a candidate at this time for revascularization, however stated that would discuss case with general surgeon. Likely upper extremity digits affected by vasopressor support in combination with severe PAD causing limb ischemia. Angiography showed Normal, nonobstructive epicardial coronary arteries. Mild left ventricular dysfunction, ejection fraction 50%. Right ulnarl artery totally occluded with excellent flow from the radial artery. Left lower extremity angiogram showed widely patent SFA and trifurcation with distal dorsalis pedis 100% occlusion. Right lower extremity angiogram also showed no significant obstructive lesions until trifurcation( amputated BKA).Discontinued on aspirin, plavix and statin after angiography. Plan: - continue aspirin 81 mg daily. - continue Zosyn IV. Rest of conditions to continue current management per primary team: #Staph hemolyticus bacteremia, treated. #Septic shock, resolved. #Acute hypoxic respiratory failure. #Community-acquired pneumonia, Stenotrophomonas maltophilia. #ESRD (HD on ). #History of type 2 diabetes. #Respiratory acidosis, resolved. #HAGMA, resolved. #Lactic acidosis, resolved. #Hyperkalemia, resolved. #Shock liver, resolved. #Possible GI bleed. #Macrocytic anemia. #Thrombocytopenia. #Hematemesis, resolved. #Hypoglycemia, resolved. Discussed the patient with my attending Dr Villalobos. Minh Smith MD, PGY 2. Disclaimer: This note was dictated by speech recognition. Minor errors in director print may be present due to voice recognition software.
[2025-04-09] VITALS (12 sets, daily range): BP systolic 108–126; BP diastolic 59–67; PULSE 68–87; RESP 10–20; TEMP 36.1–36.4; O2SAT 92–99
[2025-04-09 06:15] LABS: Basophils % (Auto) 0 % (0-2.5); Eosinophils # (Auto) 0.4 Thou/mm3 (0.0-0.5); Eosinophils % (Auto) 4 % (0-10); Hematocrit 23.2 % (41.0-53.0); Immature Granulocytes % (Auto) 4 % (0-0); Immature Granulocytes Auto 0.39 Thou/mm3 (0.00-0.00); Lymphocytes # (Auto) 0.9 Thou/mm3 (1.0-4.8); Lymphocytes % (Auto) 10 % (10-50); Mean Corpuscular HGB Conc 29.7 g/dl (31.0-37.0); Mean Corpuscular Hemoglobin 31.2 pg (25.0-35.0); Mean Corpuscular Volume 105 fL (80-100); Monocytes % (Auto) 11 % (0-12); Neutrophils # (Auto) 6.2 Thou/mm3 (1.8-7.7); Neutrophils % (Auto) 70 % (37-80); Nucleated Red Blood Cell % 0 /100 WBC (0); Platelet Count 125 Thou/mm3 (140-440); RDW Standard Deviation 70.9 fL (35.1-43.9); Red Blood Count 2.21 Miln/mm3 (4.50-5.90); White Blood Count 8.8 Thou/mm3 (3.8-10.6)
[2025-04-09 06:19] LABS: Alanine Aminotransferase 10 U/L (10-49); Albumin, Serum 2.9 gm/dL (3.5-5.0); Albumin/Globulin Ratio 1.1 (1.2-2.2); Alkaline Phosphatase 73 U/L (46-116); Anion Gap 7 (7-16); Aspartate Amino Transferase 10 U/L (0-34); BUN/Creatinine Ratio 8 Ratio (12-20); Bilirubin,Total 0.5 mg/dL (0.3-1.2); Blood Urea Nitrogen 35 mg/dL (9-23); Calcium 7.7 mg/dL (8.3-10.6); Calcium (Corrected) 8.6 mg/dL (8.5-10.1); Chloride 100 mMol/L (98-107); Creatinine (Component) 4.2 mg/dL (0.6-1.3); Estimated Creatinine Clearance 27.9 mL/min (>60); Globulin 2.7 gm/dL (2.3-3.5); Glucose 90 mg/dL (74-106); Magnesium 2.2 mg/dL (1.6-2.6); Osmolality,Calculated 281 (275-295); Phosphorous 5.9 mg/dL (2.4-5.1); Potassium 4.2 mMol/L (3.4-5.1); Sodium 137 mMol/L (136-145); Total Protein 5.6 gm/dL (5.7-8.2); eGFR 16 See Note
[2025-04-09 06:21] LABS: Hemoglobin 6.9 g/dL (13.5-16.0)
[2025-04-09 08:54] LABS: Hematocrit 24.6 % (41.0-53.0)
[2025-04-09] MEDS: SEVELAMER CARBONATE 800 MG TABLET PO ×3 (08:57→17:09)
[2025-04-09] MEDS: AMIODARONE HCL 200 MG TABLET PO ×2 (08:57→20:47)
[2025-04-09] MEDS: PANTOPRAZOLE 40 MG TABLET PO (08:58)
[2025-04-09] MEDS: Morphine Sulf 15 MG TABCR PO ×2 (08:58→20:48)
[2025-04-09] MEDS: APIXABAN 2.5 MG TABLET PO ×2 (08:58→20:48)
[2025-04-09] MEDS: ASPIRIN EC 81 MG TABEC PO (08:58)
[2025-04-09] MEDS: PIPER/TAZO INJ 4.5 GM in SODIUM CHLORIDE 0.9% (POP) 100 ML IV (08:58)
[2025-04-09 09:11] LABS: Hemoglobin 7.4 g/dL (13.5-16.0)
--- NOTE | 2025-04-09 10:10 | PC.SS ---
Addendum entered by Gabriela Garcia 04/09/25 14:39: SS follow up note; SS followed up with Des and spoke to Luma and she informed SS that she received an email from patient's casework manager and he informed her that at the time it's under medical directors review, however wanted SS to be aware that there are many referrals as well to be reviewed. SS verbalized understanding. SS will stand by for further needs. Original Note: SS follow up note; SS contacted patient's insurance Des. SS spoke to Luma and she reported that at the time the authorization is still pending, Luma informed SS that she sent an email to the casework manager that's assigned to patient. SS provided Des with SS contact number.
--- NOTE | 2025-04-09 10:45 | PD.RESPRO ---
Documentation for date of: 04/09/25 Subjective Subjective Interval history: Patient was seen and examined at bedside this morning. No acute overnight events. This morning patient's hemoglobin was 6.9, but on repeat hemoglobin was 7.4. At this time patient has no complaints and we are still pending insurance authorization. Exam Vital Signs Temp Pulse Resp BP Pulse Ox O2 Del Method O2 Flow Rate 97.0 F 74 10 L 126/63 98 Nasal Cannula 3 04/09/25 08:00 04/09/25 09:06 04/09/25 09:06 04/09/25 08:57 04/09/25 09:06 04/09/25 08:00 04/09/25 09:06 FiO2 50 04/08/25 16:00 Narrative Exam General: AO x 3, no acute distress Eyes: Pupils reactive to light, EOMI, vision intact Ears: No visible ear discharge Nose: No visible nasal discharge. Mouth/Throat: Moist mucous membranes, no redness, no lesions. Neck: Neck supple, no cervical lymphadenopathy. Lungs: Clear CHRISTIANO Cardio: Normal S1/S2, irregular, no murmurs, no JVD Abdomen: Soft, non-tender, no palpable masses, peristalsis present, no guarding or rebound Extremities: Right BKA with cyanotic changes which have slightly improved, left distal leg amputation above ankle level with clean dressing, right upper extremity digits show necrotic changes at the tips and extending proximally. Skin: Right upper extremity digits show necrotic changes at the tips Neuro: No focal neurological deficits, motor and sensory intact Objective Labs 04/10/25 06:15 04/10/25 06:15 Labs: Laboratory Results - last 24 hr 04/09/25 04/09/25 05:48 08:37 WBC 8.8 RBC 2.21 L Hgb 6.9 L* 7.4 L Hct 23.2 L 24.6 L MCV 105 H MCH 31.2 MCHC 29.7 L RDW Std Deviation 70.9 H Plt Count 125 L Neut % (Auto) 70 Lymph % (Auto) 10 [place] % (Auto) 11 Eos % (Auto) 4 Baso % (Auto) 0 Neut # (Auto) 6.2 Lymph # (Auto) 0.9 L [place] # (Auto) 1.0 H Eos # (Auto) 0.4 Baso # (Auto) 0.0 Immature Gran # (Auto) 0.39 H Absolute Nucleated RBC 0.00 Immature Gran % 4 H Nucleated RBC % 0 Sodium 137 Potassium 4.2 D Chloride 100 Carbon Dioxide 30.0 Anion Gap 7 BUN 35 H Creatinine 4.2 H* Estim Creat Clear Calc 27.9 L eGFR 16 L BUN/Creatinine Ratio 8 L Glucose 90 Calculated Osmolality 281 Calcium 7.7 L Corrected Calcium 8.6 Phosphorus 5.9 H Magnesium 2.2 Total Bilirubin 0.5 AST 10 ALT 10 Alkaline Phosphatase 73 Total Protein 5.6 L Albumin 2.9 L Globulin 2.7 Albumin/Globulin Ratio 1.1 L ABG Interpretation ABG results: 03/14/25 03/14/25 03/14/25 14:44 16:44 18:53 ABG pH 7.03 L* 7.04 L* 7.10 L* ABG pCO2 43 50 H 46 ABG pO2 86 128 H D 57 L* D ABG HCO3 11 L 13 L 14 L ABG O2 Saturation 91 97 78 L ABG Base Excess -19 L -17 L -15 L VBG pH VBG pCO2 VBG pO2 VBG Base Excess 03/14/25 03/15/25 03/15/25 21:20 05:07 12:28 ABG pH 7.21 L D 7.41 D ABG pCO2 32 D 31 L ABG pO2 116 H D 74 L D ABG HCO3 13 L 20 ABG O2 Saturation 97 95 ABG Base Excess -14 L -4 L VBG pH 7.43 VBG pCO2 34 L VBG pO2 37 VBG Base Excess -1 03/16/25 03/16/25 03/16/25 04:51 11:48 19:30 ABG pH 7.46 H 7.22 L D 7.38 D ABG pCO2 29 L 66 H D 48 D ABG pO2 78 L 79 L 236 H D ABG HCO3 21 27 H 29 H ABG O2 Saturation 96 91 100 H ABG Base Excess -2 -2 3 VBG pH VBG pCO2 VBG pO2 VBG Base Excess 03/17/25 03/18/25 03/19/25 04:53 09:27 04:46 ABG pH 7.38 7.35 ABG pCO2 49 H 48 ABG pO2 78 L D 92 ABG HCO3 29 H 26 ABG O2 Saturation 95 98 ABG Base Excess 3 0 VBG pH 7.34 VBG pCO2 54 D VBG pO2 34 VBG Base Excess 2 03/24/25 04/01/25 04/01/25 22:00 04:53 15:50 ABG pH 7.33 L 7.23 L ABG pCO2 48 62 H ABG pO2 233 H 102 ABG HCO3 25 26 ABG O2 Saturation 101 H 98 ABG Base Excess -1 -2 VBG pH 7.24 L VBG pCO2 57 H VBG pO2 51 VBG Base Excess -3 04/01/25 04/02/25 04/03/25 18:40 04:45 05:17 ABG pH 7.24 L 7.24 L 7.31 L ABG pCO2 61 H 59 H 56 H ABG pO2 207 H D 203 H 123 H D ABG HCO3 26 25 28 H ABG O2 Saturation 101 H 101 H 100 H ABG Base Excess -2 -3 2 VBG pH VBG pCO2 VBG pO2 VBG Base Excess 04/04/25 05:02 ABG pH 7.33 L ABG pCO2 51 H ABG pO2 114 H ABG HCO3 27 H ABG O2 Saturation 100 H ABG Base Excess 1 VBG pH VBG pCO2 VBG pO2 VBG Base Excess Quality Measures Quality Measures VTE prophylaxis Assessment & Plan Assessment Current Active Medications: Generic Name Dose Route Start Last Admin Trade Name Freq PRN Reason Stop Dose Admin Acetaminophen 650 mg 03/20/25 11:35 03/21/25 06:39 Acetaminophen 325 Mg Tablet PO 04/19/25 11:34 650 mg Q6HR PRN Administration pain and Fever >100.4 Protocol Hydrocodone Bitart/Acetaminophen 1 tab 04/04/25 11:48 04/08/25 23:11 Hydrocodone/Apap 10/325 Tab PO 04/09/25 11:47 1 tab Q6HR PRN Administration PAIN SCALE 4-6 (Moderate Amiodarone HCl 200 mg 04/05/25 09:00 04/09/25 08:57 Amiodarone Hcl 200 Mg Tablet PO 05/05/25 08:59 200 mg BID [place] Administration Apixaban 2.5 mg 04/08/25 10:15 04/09/25 08:58 Apixaban 2.5 Mg Tablet PO 05/08/25 10:14 2.5 mg BID [place] Administration Artificial Tears 0 drop 04/04/25 21:37 04/04/25 21:53 Artificial Tears 225 Drop/15 Ml Btl BOTH EYES 05/04/25 21:36 2 drop PRN PRN Administration TO KEEP EYES MOIST Aspirin 81 mg 04/03/25 12:00 04/09/25 08:58 Aspirin Ec 81 Mg Tabec PO 05/03/25 11:59 81 mg QDAY [place] Administration Heparin Sodium (Porcine) 3,800 unit 03/30/25 08:26 04/08/25 11:06 Heparin Sod Inj 1000 Unit/Ml Vial 10 Ml INDWELLCAT 04/13/25 08:25 3,800 unit PRN PRN Administration DIALYSIS Albumin Human 25 gm in 100 mls @ 100 mls/hr 04/01/25 07:37 04/02/25 09:00 Albuminar-25 Ivpb IV Infused PRN PRN Infusion DIALYSIS Piperacillin Sod/Tazobactam 100 mls @ 200 mls/hr 04/02/25 15:29 04/09/25 08:58 Sod 4.5 gm/ Sodium Chloride IV 04/09/25 15:28 200 mls/hr Q12HR [place] Administration Levalbuterol HCl 0.31 mg 03/28/25 10:24 03/31/25 00:37 Levalbuterol Rt 0.31 Mg/3 Ml Nebu INH 04/19/25 12:14 0.31 mg Q6HRRT PRN Administration Wheezing Lorazepam 1 mg 04/01/25 08:11 Lorazepam 2 Mg/Ml Vial IVP Q5MIN PRN seizure Morphine Sulfate 15 mg 04/05/25 14:30 04/09/25 08:58 Morphine Sulf 15 Mg Tabcr PO 04/10/25 14:29 15 mg Q12HR MON[place]AT Administration Protocol Ondansetron HCl 4 mg 03/14/25 17:31 03/30/25 01:39 Ondansetron Inj 2 Mg/Ml Inj 2 Ml IV 04/13/25 17:30 4 mg Q6H PRN Administration NAUSEA OR VOMITING Protocol Pantoprazole Sodium 40 mg 04/08/25 09:00 04/09/25 08:58 Pantoprazole 40 Mg Tablet PO 05/08/25 08:59 40 mg QDAY [place] Administration Polyethylene Glycol 17 gm 03/26/25 18:00 04/09/25 08:59 Polyethylene Glycol 17 Gm Packet PO 04/25/25 17:59 Not Given QDAY [place] Sennosides 1 tab 03/26/25 18:00 04/09/25 08:59 Senna Tablet PO 04/25/25 17:59 Not Given QDAY [facility] Protocol Sevelamer Carbonate 800 mg 04/03/25 12:00 04/09/25 08:57 Sevelamer Carbonate 800 Mg Tablet PO 05/03/25 11:59 800 mg TIDWM [place] Administration Sodium Chloride 3 ml 03/31/25 06:26 Sodium Cl Rt Marjorie 3% 4 Ml Nebu (Non-Formulary) INH 04/16/25 18:59 Q6HRRT PRN To induce cough Plan 49-year-old male with past medical history of DM2, hypertension, ESRD (HD ), HFpEF (EF 55% on 2021), and right BKA due to osteomyelitis was admitted to the ICU on 03/14/2025 for acute hypoxic respiratory failure, acute encephalopathy, and shock. He was extubated and downgraded to telemetry on 03/20/2025. #Right ulnar artery occlusion #Right upper extremity multiple digit necrosis #Left lower extremity gangrene/tissue necrosis s/p guillotine amputation distal #Peripheral Vascular disease, severe Abdomen CTA with runoff that showed occlusion of multiple arteries including the left radial, gluteal, and tibial arteries as well as 90% stenosis of the left superficial femoral artery Also showed 80% stenosis of right superficial femoral artery. Patient had his angiogram done yesterday showed right ulnar artery to be totally occluded or absent and there was no CAD. S/p guillotine amputation on 04/01/2025 Plan: Continue aspirin 81 mg daily Continue morphine oral extended release 50 mg twice daily for better management of patient's pain Will have Dilaudid 1 mg every 4 hours for breakthrough pain Wound care on board #A-fib with RVR, rate controlled #MAT #SVT Patient again went into SVT last night and was shocked again, but on repeat EKG showed to be in A-fib RVR. Patient again went into SVT and received adenosine 6mg x1 and adenosine 12mg x1 before being cardioverted. Repeat EKG showed what appears to be MAT. [id number] score of 3 points indicating 3.2% risk of stroke per year HAS-BLED score of 5 points Patient had his angiogram done 03/31/2025 showed right ulnar artery to be totally occluded or absent and there was no CAD. Cardiology recommended to stop patient's aspirin, Plavix, metoprolol, and statin Patient had a rapid response called on 04/01/2025 was tachycardic in the 140s and EKG looked to be like a SVT. Patient was cardioverted and was then in the heart rates in the 60s. Plan: Continue amiodarone 200 mg twice daily Continue Eliquis 2.5 mg BID Keep Potassium >4 and Mg >2 Coding Team Lead consulted, appreciate recommendations #HFpEF (EF 50-55% on 2024). Echo on 03/16/2025 showed EF of 45 to 50% and septal dyskinesis. Echo on 03/23/2025 shows some improvement and left ventricle function with an EF of 50 to 55% Plan: Will continue with hemodialysis with fluid removal. Daily weights. Strict JENN's. fluid restriction. #ESRD (HD on ). Patient was on hemodialysis and had AV fistula, but was clotted therefore cannot be used. Tunnedled dialysis cath placed 03/26/2025 Plan: Continue hemodialysis as scheduled. Continue sevelamer 800 mg 3 times daily Band And Cuff Cutter Dr. Pleitez following, appreciate recommendations Avoid nephrotoxic agents. Renally dose medications. #Macrocytic anemia. #Thrombocytopenia, improving Patient's hemoglobin was downtrending from 11.9 on admission Hemoglobin 6.9 and repeat 7.4 and platelets 125 No active signs of bleeding Plan: Continue to monitor daily CBC Transfuse if Hgb less than 7. #Transaminitis, resolved #Hepatomegaly. Hepatitis panel negative and abdominal ultrasound that shows some hepatomegaly with possible cirrhosis versus hepatocellular disease. Plan: Continue monitoring daily labs #Hx of DM2. A1c 5.4 No need for ISS #Acute Hypoxic resp failure in the setting of Left base PNA, improving #Stenotrophomonas maltophilia pneumonia, resolved . #Respiratory acidosis, resolved. #Septic shock, resolved. #Troponinemia, resolved #Hematemesis, resolved #HAGMA, resolved. #Lactic acidosis, resolved. #Staph Hemolyticus bacteremia, resolved (finished course of vancomycin 03/23-04/05) #CLABSI, resolved #Hyperbilirubinemia, resolved Hospital Maintenance: Disposition: Pending insurance auth Diet: renal DVT ppx: Heparin 5000 SC Q12H GI ppx: Protonix . Code status: DNR. Case disclosed with Attending Dr. Amrit Lee PGY1 Disclaimer: This note was dictated by speech recognition and even though it was carefully revised there may still be minor errors in auto transmission technician due to voice recognition software. Attending Provider Attestation/Addendum I reviewed labs, imaging, EKG, home medications and prior available records. Face to face evaluation was performed by me. I have personally examined the patient and discussed assessment and plan with the IM team. I reviewed the resident note and agree with the plan with exceptions as below. Acute encephalopathy, resolved Acute hypoxic respiratory failure, status post intubation, s/p extubation ESRD on hemodialysis HFrEF EF 45 to 50% Atrial fibrillation with controlled ventricular rhythm PAD Gangrene of toes and fingers, in the setting of severe PAD in the vasopressors Non-STEMI Clotting of dialysis fistula Leukocytosis, improved Status post guillotine left foot amputation on 04/01 Finished daptomycin and Zosyn on 04/08 Status post cardiac catheterization that showed nonobstructive CAD Status post angiogram that showed severe PAD with occlusions. Continue pain management orally Status post permacath on 03/26 Outpatient follow-up with vascular surgery for the clotted fistula Monitor H&H: Stable Started diltiazem for the A-fib. Continue Eliquis 2.5 mg twice daily Continue aspirin Continue hemodialysis per nephrology recommendations PT recommended SNF. He is not on hospice. Pending authorization for the placement
[2025-04-09] MEDS: HYDROcodone/APAP 10/325 TAB PO ×2 (11:46→17:20)
--- NOTE | 2025-04-09 16:12 | PC.SS ---
SS follow up note; SS was contacted by Dominic CAMPBELL and he informed SS that he was contacted by [facility] and informed him that they are the once to approve auth for SNF. SS contacted Des and spoke to [place] and she said it's not [facility] that Des is patient's IPA. Patient is pending authorization to [facility].
--- NOTE | 2025-04-09 17:25 | PD.RESPRO ---
Documentation for date of: 04/09/25 Subjective Subjective Interval history: Mr. Mcclain is a 49-year-old male with past medical history of type 2 diabetes mellitus, hypertension, end-stage renal disease (HD ), HFpEF (EF 50 to 55% 02/2025) and right BKA due to osteomyelitis who was brought in by ambulance to [facility] emergency department on 03/14/2025 with a chief complaint of altered mental status. Patient was intubated secondary to inability to protect airway. On presentation patient's assisted with procuring history, per patient's patient had progressive shortness of breath and had change in mentation, patient was found to be in SVT when EMS arrived was shocked once and was converted to sinus rhythm. Patient also had to get additional sessions of hemodialysis due to increase in weight, last session of hemodialysis before admission to the hospital was on 12 March 2025. Patient also does have history of methamphetamine use, urine tox screen was positive for methamphetamine and marijuana on presentation. With the progression of hospital course patient was initially managed in the intensive care unit for acute hypoxic respiratory failure was found to have stenotrophomonas maltophilia pneumonia was treated with IV antibiotics, had significant lactic acidosis respiratory acidosis and high anion gap metabolic acidosis which improved in ICU patient did require CRRT and was eventually transition to hemodialysis, patient was eventually extubated on downgraded to telemetry on 03/20/2025. Patient's hospital stay is further complicated with possible acute versus chronic limb ischemia and underlying severe peripheral vascular disease, clinical law professor discussed case with vascular surgeon at [facility] during the hospitalization, patient was a poor candidate for revascularization per documentation. Patient started on amiodarone for underlying atrial fibrillation and eventually infectious disease consulted for Staph haemolyticus bacteremia possible CLABSI. Patient continue to receive inpatient hemodialysis. 03/25/2025: Patient successfully completed 3 hours 4 minutes of dialysis session today, postdialysis weight 115.9 kg was hypotensive at times during the dialysis, tolerated dialysis well through the temporary dialysis catheter. Net fluid removed 0.5 L. Blood pressure was soft, received 2 bags of albumin during the dialysis session.Patient will need permanent dialysis catheter placement, will be scheduled with interventional radiology in a.m. after holding aspirin and Plavix. Patient will be made n.p.o. after midnight by primary team. 03/26/2025: Patient seen and examined at bedside, patient had permanent tunneled dialysis catheter placed today. Currently complains of some back pain. Patient will continue to receive IV antibiotics until 04/05/2025 with hemodialysis. Otherwise patient is stable, has no current complaints. Anticipate discharge in next 24 hours on supplemental oxygen. 03/27/2025:Patient received dialysis treatment today, completed about 2 hours of dialysis session, about 1.1 L fluid removed, postdialysis weight 115 kg, was administered 100 mL albumin during the dialysis session for low blood pressure, patient did receive alteplase through the indwelling catheter x 1. Primary team discussed the case with patient and patient's family, patient has been requiring an extensive amount of IV pain medication, further plan by primary team is to discharge patient to [facility] facility and not on hospice as patient does not have underlying clear etiology for hospice. Patient's DAPT being held, cardiology following the case and patient may undergo angiogram heart, bilateral upper and lower extremities on Saturday. 03/28/2025: Patient continues to complain of pain, patient's gabapentin changed to pregabalin 25 twice daily and [place] was increased to 7.5 mg. Patient Aspirin and Plavix being held, patient going to undergo cardiac angiogram and angiogram upper and lower extremities likely in the morning. Will coordinate with cardiology. 03/29/2025: Labs and Vitals reviewed. Patient scheduled for Procedure with Cardiology Today, will plan for dialysis pot procedure after discussion with Cardiology Team, otherwise patient is stable, has no current complains. Pregabalin dose adjusted by primrary team. 03/30/2025: Patient received dialysis treatment today, received dialysis for 3 hours 6-minute, about 2 L fluid removed, postdialysis weight 112.3, patient was administered 100 mL of albumin during dialysis. Patient had his angiogram done yesterday showed right ulnar artery to be totally occluded or absent and there was no CAD. Cardiology recommended to stop patient's aspirin, Plavix, metoprolol, and statin and they also started the patient on diltiazem. They also recommended to get general surgery for possible amputation and to start Eliquis 2.5 mg twice daily after the patient has surgery. Will consult general surgery for possible amputation. 03/31/2025: Patient seen and examined at bedside, labs and vitals reviewed. Patient received dialysis yesterday, patient is being evaluated by general surgery for possible amputation. Otherwise has no current complaints, reports no new concerns. 04/01/2025: Patient upgraded to ICU earlier this morning, patient had seizure-like episode. Patient was given Ativan 1 mg x 1. Patient later had another rapid response called with heart rate in 140s and SpO2 in low 80s, patient was very lethargic MAP was found to be in the range of 55-64. Patient eventually upgraded to ICU for IV pressors, patient started on phenylephrine in ICU. Patient will receive dialysis today, scheduled for BKA by surgery later today. 04/03/2025: Patient seen and examined at bedside in ICU, patient was started on FAMILY EDUCATOR, for about 12 hours, had about 1 L fluid removed.Patient was weaned off of phenylephrine, currently not requiring any pressors. Patient does have significant right hand pain due to digital necrosis, is on Dilaudid for pain management. Swamper team will obtain punch biopsy today of the skin for further analysis. 04/04/2025: Patient seen and examined at bedside, currently in ICU physically, was downgraded to telemetry yesterday. Patient received dialysis treatment today, goal is to remove about 3 L fluid, patient will likely need another session of dialysis tomorrow morning, patient has significant amount of fluid in the body. Otherwise patient is stable, has no current complaints tolerating dialysis well. 04/05/2025: Patient seen and examined at bedside, currently fluid overloaded as well, will plan for another session of dialysis today with goal to remove fluid. Will continue to monitor patient's fluid status post dialysis today, patient is pending orthopedic consult, is on telemetry. Otherwise has no current complaints. 04/06/2025: Patient seen and examined at bedside, patient received dialysis yesterday 2.7 L removed. Patient received consecutive dialysis for the last two days 2.7 L fluid removed. Patient is stable today, will recieve dialysis today as well, will remove fluid around 2-3L. Pending orthopaedic surgeon evaluation. 04/07/2025: Patient seen and examined at bedside patient received 3 consecutive days of dialysis from 04/04-04/06 had about 3 L removed each day, today patient is euvolemic, saturating well on nasal cannula has no current complaints. Patient will be scheduled for dialysis tomorrow. Patient is pending insurance authorization for placement, patient's pain is managed on extended release morphine. 04/08/2025: Patient seen and examined at bedside, patient received dialysis today, patient had a dialysis session for about 3 hours, 2.5 L fluid removed, postdialysis weight 118.5. Patient is pending placement, otherwise pain is well-managed on oral morphine. Will continue inpatient dialysis. 04/09/2025:Patient seen and examined at bedside., Labs and vitals reviewed. Patient's hemoglobin was 6.9 this morning, repeat hemoglobin 7.4, phosphorus 5.9. Will hold hemodialysis for today, patient has no current complaints. Patient will be discharged on hemodialysis 3 times a week. Patient is pending insurance authorization for discharge. Per primary team documentation patient will not need any IV antibiotics on discharge. Exam Vital Signs Temp Pulse Resp BP Pulse Ox O2 Del Method O2 Flow Rate 97.1 F 82 15 123/67 97 Nasal Cannula 3 04/09/25 12:00 04/09/25 16:00 04/09/25 12:00 04/09/25 12:00 04/09/25 12:00 04/09/25 12:00 04/09/25 12:00 FiO2 50 04/08/25 16:00 Narrative Exam General: AO x 3, no acute distress Eyes: Pupils reactive to light, EOMI, vision intact Ears: No visible ear discharge Nose: No visible nasal discharge. Mouth/Throat: Moist mucous membranes, no redness, no lesions. Neck: Neck supple, no cervical lymphadenopathy. Lungs: Clear CHRISTIANO Cardio: Normal S1/S2, irregular, no murmurs, no JVD Abdomen: Soft, non-tender, no palpable masses, peristalsis present, no guarding or rebound Extremities: Right BKA with cyanotic changes which have slightly improved, left distal leg amputation above ankle level with clean dressing, right upper extremity digits show necrotic changes at the tips and extending proximally. Skin: Right upper extremity digits show necrotic changes at the tips Neuro: No focal neurological deficits, motor and sensory intact Objective Labs 04/16/25 08:15 04/16/25 08:15 Labs: Laboratory Results - last 24 hr 04/09/25 04/09/25 05:48 08:37 WBC 8.8 RBC 2.21 L Hgb 6.9 L* 7.4 L Hct 23.2 L 24.6 L MCV 105 H MCH 31.2 MCHC 29.7 L RDW Std Deviation 70.9 H Plt Count 125 L Neut % (Auto) 70 Lymph % (Auto) 10 [place] % (Auto) 11 Eos % (Auto) 4 Baso % (Auto) 0 Neut # (Auto) 6.2 Lymph # (Auto) 0.9 L [place] # (Auto) 1.0 H Eos # (Auto) 0.4 Baso # (Auto) 0.0 Immature Gran # (Auto) 0.39 H Absolute Nucleated RBC 0.00 Immature Gran % 4 H Nucleated RBC % 0 Sodium 137 Potassium 4.2 D Chloride 100 Carbon Dioxide 30.0 Anion Gap 7 BUN 35 H Creatinine 4.2 H* Estim Creat Clear Calc 27.9 L eGFR 16 L BUN/Creatinine Ratio 8 L Glucose 90 Calculated Osmolality 281 Calcium 7.7 L Corrected Calcium 8.6 Phosphorus 5.9 H Magnesium 2.2 Total Bilirubin 0.5 AST 10 ALT 10 Alkaline Phosphatase 73 Total Protein 5.6 L Albumin 2.9 L Globulin 2.7 Albumin/Globulin Ratio 1.1 L ABG Interpretation ABG results: 03/14/25 03/14/25 03/14/25 14:44 16:44 18:53 ABG pH 7.03 L* 7.04 L* 7.10 L* ABG pCO2 43 50 H 46 ABG pO2 86 128 H D 57 L* D ABG HCO3 11 L 13 L 14 L ABG O2 Saturation 91 97 78 L ABG Base Excess -19 L -17 L -15 L VBG pH VBG pCO2 VBG pO2 VBG Base Excess 03/14/25 03/15/25 03/15/25 21:20 05:07 12:28 ABG pH 7.21 L D 7.41 D ABG pCO2 32 D 31 L ABG pO2 116 H D 74 L D ABG HCO3 13 L 20 ABG O2 Saturation 97 95 ABG Base Excess -14 L -4 L VBG pH 7.43 VBG pCO2 34 L VBG pO2 37 VBG Base Excess -1 03/16/25 03/16/25 03/16/25 04:51 11:48 19:30 ABG pH 7.46 H 7.22 L D 7.38 D ABG pCO2 29 L 66 H D 48 D ABG pO2 78 L 79 L 236 H D ABG HCO3 21 27 H 29 H ABG O2 Saturation 96 91 100 H ABG Base Excess -2 -2 3 VBG pH VBG pCO2 VBG pO2 VBG Base Excess 03/17/25 03/18/25 03/19/25 04:53 09:27 04:46 ABG pH 7.38 7.35 ABG pCO2 49 H 48 ABG pO2 78 L D 92 ABG HCO3 29 H 26 ABG O2 Saturation 95 98 ABG Base Excess 3 0 VBG pH 7.34 VBG pCO2 54 D VBG pO2 34 VBG Base Excess 2 03/24/25 04/01/25 04/01/25 22:00 04:53 15:50 ABG pH 7.33 L 7.23 L ABG pCO2 48 62 H ABG pO2 233 H 102 ABG HCO3 25 26 ABG O2 Saturation 101 H 98 ABG Base Excess -1 -2 VBG pH 7.24 L VBG pCO2 57 H VBG pO2 51 VBG Base Excess -3 04/01/25 04/02/25 04/03/25 18:40 04:45 05:17 ABG pH 7.24 L 7.24 L 7.31 L ABG pCO2 61 H 59 H 56 H ABG pO2 207 H D 203 H 123 H D ABG HCO3 26 25 28 H ABG O2 Saturation 101 H 101 H 100 H ABG Base Excess -2 -3 2 VBG pH VBG pCO2 VBG pO2 VBG Base Excess 04/04/25 05:02 ABG pH 7.33 L ABG pCO2 51 H ABG pO2 114 H ABG HCO3 27 H ABG O2 Saturation 100 H ABG Base Excess 1 VBG pH VBG pCO2 VBG pO2 VBG Base Excess Quality Measures Quality Measures VTE prophylaxis Assessment & Plan Assessment Current Active Medications: Generic Name Dose Route Start Last Admin Trade Name Freq PRN Reason Stop Dose Admin Acetaminophen 650 mg 03/20/25 11:35 03/21/25 06:39 Acetaminophen 325 Mg Tablet PO 04/19/25 11:34 650 mg Q6HR PRN Administration pain and Fever >100.4 Protocol Hydrocodone Bitart/Acetaminophen 1 tab 04/09/25 17:13 04/09/25 17:20 Hydrocodone/Apap 10/325 Tab PO 04/14/25 17:12 1 tab Q6HR PRN Administration PAIN 4-10 Amiodarone HCl 200 mg 04/05/25 09:00 04/09/25 08:57 Amiodarone Hcl 200 Mg Tablet PO 05/05/25 08:59 200 mg BID MONTSERRAT Administration Apixaban 2.5 mg 04/08/25 10:15 04/09/25 08:58 Apixaban 2.5 Mg Tablet PO 05/08/25 10:14 2.5 mg BID MONTSERRAT Administration Artificial Tears 0 drop 04/04/25 21:37 04/04/25 21:53 Artificial Tears 225 Drop/15 Ml Btl BOTH EYES 05/04/25 21:36 2 drop PRN PRN Administration TO KEEP EYES MOIST Aspirin 81 mg 04/03/25 12:00 04/09/25 08:58 Aspirin Ec 81 Mg Tabec PO 05/03/25 11:59 81 mg QDAY MON[place] Administration Heparin Sodium (Porcine) 3,800 unit 03/30/25 08:26 04/08/25 11:06 Heparin Sod Inj 1000 Unit/Ml Vial 10 Ml INDWELLCAT 04/13/25 08:25 3,800 unit PRN PRN Administration DIALYSIS Albumin Human 25 gm in 100 mls @ 100 mls/hr 04/01/25 07:37 04/02/25 09:00 Albuminar-25 Ivpb IV Infused PRN PRN Infusion DIALYSIS Levalbuterol HCl 0.31 mg 03/28/25 10:24 03/31/25 00:37 Levalbuterol Rt 0.31 Mg/3 Ml Nebu INH 04/19/25 12:14 0.31 mg Q6HRRT PRN Administration Wheezing Morphine Sulfate 15 mg 04/05/25 14:30 04/09/25 08:58 Morphine Sulf 15 Mg Tabcr PO 04/10/25 14:29 15 mg Q12HR MONTSERRAT Administration Protocol Ondansetron HCl 4 mg 03/14/25 17:31 03/30/25 01:39 Ondansetron Inj 2 Mg/Ml Inj 2 Ml IV 04/13/25 17:30 4 mg Q6H PRN Administration NAUSEA OR VOMITING Protocol Pantoprazole Sodium 40 mg 04/08/25 09:00 04/09/25 08:58 Pantoprazole 40 Mg Tablet PO 05/08/25 08:59 40 mg QDAY [place] Administration Polyethylene Glycol 17 gm 03/26/25 18:00 04/09/25 08:59 Polyethylene Glycol 17 Gm Packet PO 04/25/25 17:59 Not Given QDAY [facility] Sennosides 1 tab 03/26/25 18:00 04/09/25 08:59 Senna Tablet PO 04/25/25 17:59 Not Given QDAY MON[place]ERRAT Protocol Sevelamer Carbonate 800 mg 04/03/25 12:00 04/09/25 17:09 Sevelamer Carbonate 800 Mg Tablet PO 05/03/25 11:59 800 mg TIDWM MON[place]ERRAT Administration Sodium Chloride 3 ml 03/31/25 06:26 Sodium Cl Rt Marjorie 3% 4 Ml Nebu (Non-Formulary) INH 04/16/25 18:59 Q6HRRT PRN To induce cough Plan Assessment and Plan: Summary: Mr. Mcclain is a 49 years old male with PMH of DM2, hypertension, ESRD (HD ), HFpEF (EF 55% on 2021), and right BKA due to osteomyelitis BIBA to the ED due to AMS, was intubated and started on pressors and was admitted to the ICU on 03/14/2025 for management of shock of unknown etiology and was started on IV antibiotics. On 03/17 his sputum culture grew stenotrophomonas maltophilia and antibiotics were changed to levofloxacin. He was extubated and downgraded to telemetry on 03/20/2025 for continuation of care. # End-stage renal disease Patient received CRRT in intensive care unit, was transition to hemodialysis. Patient will need a line holiday and placement of due to underlying bacteremia. Primary team to hold aspirin and Plavix, catheter will be exchanged in a.m. possibly Patient received permanent tunneled dialysis catheter placement on 03/26/2025. Plan: - Continue with hemodialysis inpatient - Patient will need hemodialysis 3 times a week post-discharge - Avoid nephrotoxic agent - Renally dose medications. #Status post acute non-ST segment elevation myocardial infarction, NSTEMI possible type 2 troponin versus NSTEMI. #SVT episodes. #Afib, rate controlled. #Decompensated HFpEF (EF 45-50%). #Extensive atherosclerotic cardiovascular disease with bilateral femoral artery occlusions and distal trifurcation disease with gangrenous changes, ruled out. #Vasopressor-induced vasoconstriction and gangrene of B/L fingers, sequelae. #Left foot gangrene, s/p BKA. #Staph hemolyticus bacteremia. #Septic shock, resolved. #Acute hypoxic respiratory failure. #Community-acquired pneumonia, Stenotrophomonas maltophilia. #History of type 2 diabetes. #Respiratory acidosis, resolved. #HAGMA, resolved. #Lactic acidosis, resolved. #Hyperkalemia, resolved. #Shock liver, resolved. #Possible GI bleed. #Macrocytic anemia. #Thrombocytopenia. #Hematemesis, resolved. #Hypoglycemia, resolved. -Management as per primary team Case discussed with Attending Dr. Pleitez. Marycarmen Clark PGY1 Disclaimer: This note was dictated by speech recognition. Minor errors in public transit trolley driver may be present due to voice recognition software. Attending Provider Attestation/Addendum Pt is seen and examined. Labs are reviewed. agree with assessment and plan by resident. Héctor Pleitez MD
--- NOTE | 2025-04-09 18:07 | ESPR_ITS ---
<Statement entered by Yanci Villalobos MD - 04/09/25 19:29> I personally examined this patient evaluated with resident physician patient is complaining of right hand pain will require some pain medications cardiac history of A-fib rate controlled outside of dialysis patient awaiting transfer to detention facility patient will require referral to hand surgeon for possible amputation of the left wrist depending on status of the suspected surgery patient's cardiac stable cleared to have any surgery if recommended evaluated patient with resident physician Dr. Wilkinson continue medical management we will continue to monitor the patient on telemetry Documentation for date of: 04/09/25 Subjective Subjective Interval history: Patient was seen and examined at the bedside. No overnight events. He reports ongoing pain in his right hand. Continue current management. Exam Vital Signs Temp Pulse Resp BP Pulse Ox O2 Del Method O2 Flow Rate 97.1 F 82 15 123/67 97 Nasal Cannula 3 04/09/25 12:00 04/09/25 16:00 04/09/25 12:00 04/09/25 12:00 04/09/25 12:00 04/09/25 12:00 04/09/25 12:00 FiO2 50 04/08/25 16:00 Narrative Exam Gen: Well-developed male. HEENT: NCAT, PERRLA, EOMI, MMM, anicteric conjunctivae. CVS: normal S1 and S2. RRR. No M/R/G. Resp: CTA B/L. No rhonchi, rales, crackles or wheezing. Abd: soft, non-tender, non-distended. BS+ in all 4 quadrants. MSK: S/p right BKA, stump appears necrotic, right thigh has blister. S/p left BKA, clean dressing. Dry gangrene over right 2nd and 3rd digits. Tip of left second digit appears necrotic. Neuro: CN II-XII grossly intact. Alert and oriented x3. Psych: appropriate mood and affect. Objective Labs 04/09/25 08:37 04/09/25 05:48 Labs: Laboratory Results - last 24 hr 04/09/25 04/09/25 05:48 08:37 WBC 8.8 RBC 2.21 L Hgb 6.9 L* 7.4 L Hct 23.2 L 24.6 L MCV 105 H MCH 31.2 MCHC 29.7 L RDW Std Deviation 70.9 H Plt Count 125 L Neut % (Auto) 70 Lymph % (Auto) 10 [place] % (Auto) 11 Eos % (Auto) 4 Baso % (Auto) 0 Neut # (Auto) 6.2 Lymph # (Auto) 0.9 L [place] # (Auto) 1.0 H Eos # (Auto) 0.4 Baso # (Auto) 0.0 Immature Gran # (Auto) 0.39 H Absolute Nucleated RBC 0.00 Immature Gran % 4 H Nucleated RBC % 0 Sodium 137 Potassium 4.2 D Chloride 100 Carbon Dioxide 30.0 Anion Gap 7 BUN 35 H Creatinine 4.2 H* Estim Creat Clear Calc 27.9 L eGFR 16 L BUN/Creatinine Ratio 8 L Glucose 90 Calculated Osmolality 281 Calcium 7.7 L Corrected Calcium 8.6 Phosphorus 5.9 H Magnesium 2.2 Total Bilirubin 0.5 AST 10 ALT 10 Alkaline Phosphatase 73 Total Protein 5.6 L Albumin 2.9 L Globulin 2.7 Albumin/Globulin Ratio 1.1 L ABG Interpretation ABG results: 03/14/25 03/14/25 03/14/25 14:44 16:44 18:53 ABG pH 7.03 L* 7.04 L* 7.10 L* ABG pCO2 43 50 H 46 ABG pO2 86 128 H D 57 L* D ABG HCO3 11 L 13 L 14 L ABG O2 Saturation 91 97 78 L ABG Base Excess -19 L -17 L -15 L VBG pH VBG pCO2 VBG pO2 VBG Base Excess 03/14/25 03/15/25 03/15/25 21:20 05:07 12:28 ABG pH 7.21 L D 7.41 D ABG pCO2 32 D 31 L ABG pO2 116 H D 74 L D ABG HCO3 13 L 20 ABG O2 Saturation 97 95 ABG Base Excess -14 L -4 L VBG pH 7.43 VBG pCO2 34 L VBG pO2 37 VBG Base Excess -1 03/16/25 03/16/25 03/16/25 04:51 11:48 19:30 ABG pH 7.46 H 7.22 L D 7.38 D ABG pCO2 29 L 66 H D 48 D ABG pO2 78 L 79 L 236 H D ABG HCO3 21 27 H 29 H ABG O2 Saturation 96 91 100 H ABG Base Excess -2 -2 3 VBG pH VBG pCO2 VBG pO2 VBG Base Excess 03/17/25 03/18/25 03/19/25 04:53 09:27 04:46 ABG pH 7.38 7.35 ABG pCO2 49 H 48 ABG pO2 78 L D 92 ABG HCO3 29 H 26 ABG O2 Saturation 95 98 ABG Base Excess 3 0 VBG pH 7.34 VBG pCO2 54 D VBG pO2 34 VBG Base Excess 2 03/24/25 04/01/25 04/01/25 22:00 04:53 15:50 ABG pH 7.33 L 7.23 L ABG pCO2 48 62 H ABG pO2 233 H 102 ABG HCO3 25 26 ABG O2 Saturation 101 H 98 ABG Base Excess -1 -2 VBG pH 7.24 L VBG pCO2 57 H VBG pO2 51 VBG Base Excess -3 04/01/25 04/02/25 04/03/25 18:40 04:45 05:17 ABG pH 7.24 L 7.24 L 7.31 L ABG pCO2 61 H 59 H 56 H ABG pO2 207 H D 203 H 123 H D ABG HCO3 26 25 28 H ABG O2 Saturation 101 H 101 H 100 H ABG Base Excess -2 -3 2 VBG pH VBG pCO2 VBG pO2 VBG Base Excess 04/04/25 05:02 ABG pH 7.33 L ABG pCO2 51 H ABG pO2 114 H ABG HCO3 27 H ABG O2 Saturation 100 H ABG Base Excess 1 VBG pH VBG pCO2 VBG pO2 VBG Base Excess Quality Measures Quality Measures VTE prophylaxis Assessment & Plan Assessment Current Active Medications: Generic Name Dose Route Start Last Admin Trade Name Freq PRN Reason Stop Dose Admin Acetaminophen 650 mg 03/20/25 11:35 03/21/25 06:39 Acetaminophen 325 Mg Tablet PO 04/19/25 11:34 650 mg Q6HR PRN Administration pain and Fever >100.4 Protocol Hydrocodone Bitart/Acetaminophen 1 tab 04/09/25 17:13 04/09/25 17:20 Hydrocodone/Apap 10/325 Tab PO 04/14/25 17:12 1 tab Q6HR PRN Administration PAIN 4-10 Amiodarone HCl 200 mg 04/05/25 09:00 04/09/25 08:57 Amiodarone Hcl 200 Mg Tablet PO 05/05/25 08:59 200 mg BID MONTSERRAT Administration Apixaban 2.5 mg 04/08/25 10:15 04/09/25 08:58 Apixaban 2.5 Mg Tablet PO 05/08/25 10:14 2.5 mg BID [place] Administration Artificial Tears 0 drop 04/04/25 21:37 04/04/25 21:53 Artificial Tears 225 Drop/15 Ml Btl BOTH EYES 05/04/25 21:36 2 drop PRN PRN Administration TO KEEP EYES MOIST Aspirin 81 mg 04/03/25 12:00 04/09/25 08:58 Aspirin Ec 81 Mg Tabec PO 05/03/25 11:59 81 mg QDAY [place] Administration Heparin Sodium (Porcine) 3,800 unit 03/30/25 08:26 04/08/25 11:06 Heparin Sod Inj 1000 Unit/Ml Vial 10 Ml INDWELLCAT 04/13/25 08:25 3,800 unit PRN PRN Administration DIALYSIS Albumin Human 25 gm in 100 mls @ 100 mls/hr 04/01/25 07:37 04/02/25 09:00 Albuminar-25 Ivpb IV Infused PRN PRN Infusion DIALYSIS Levalbuterol HCl 0.31 mg 03/28/25 10:24 03/31/25 00:37 Levalbuterol Rt 0.31 Mg/3 Ml Nebu INH 04/19/25 12:14 0.31 mg Q6HRRT PRN Administration Wheezing Morphine Sulfate 15 mg 04/05/25 14:30 04/09/25 08:58 Morphine Sulf 15 Mg Tabcr PO 04/10/25 14:29 15 mg Q12HR MONTSERRAT Administration Protocol Ondansetron HCl 4 mg 03/14/25 17:31 03/30/25 01:39 Ondansetron Inj 2 Mg/Ml Inj 2 Ml IV 04/13/25 17:30 4 mg Q6H PRN Administration NAUSEA OR VOMITING Protocol Pantoprazole Sodium 40 mg 04/08/25 09:00 04/09/25 08:58 Pantoprazole 40 Mg Tablet PO 05/08/25 08:59 40 mg QDAY [place] Administration Polyethylene Glycol 17 gm 03/26/25 18:00 04/09/25 08:59 Polyethylene Glycol 17 Gm Packet PO 04/25/25 17:59 Not Given QDAY MONTSERRAT Sennosides 1 tab 03/26/25 18:00 04/09/25 08:59 Senna Tablet PO 04/25/25 17:59 Not Given QDAY MONTSERRAT Protocol Sevelamer Carbonate 800 mg 04/03/25 12:00 04/09/25 17:09 Sevelamer Carbonate 800 Mg Tablet PO 05/03/25 11:59 800 mg TIDWM MON[place] Administration Sodium Chloride 3 ml 03/31/25 06:26 Sodium Cl Rt Marjorie 3% 4 Ml Nebu (Non-Formulary) INH 04/16/25 18:59 Q6HRRT PRN To induce cough Plan 49-year-old male with past medical history of DM2, hypertension, ESRD (HD ), HFpEF (EF 55% on 2021), and right BKA due to osteomyelitis was initially admitted to the ICU on 03/14/2025 for acute hypoxic respiratory failure, acute encephalopathy, and shock. He was subsequently extubated and downgraded to telemetry on 03/20/2025 for continuation of care. #Status post acute non-ST segment elevation myocardial infarction, NSTEMI possible type 2 troponin versus NSTEMI. #SVT episodes. #Afib, rate controlled. #HFpEF (EF 45-50%). Patient s/p intubation and pressor support in ICU for shock, distributive secondary to sepsis versus cardiogenic. Patient initially presented to ED in SVT and required shock x1. Troponin initially 1.856 uptrended to 7.899 peak. Patient was treated for pneumonia. Patient was able to wean off pressors, extubated, now downgraded to tele. CT LER showed diffuse stenosis on the arteries of the LLE, occlusions in almost all major arteries. Echo done on 03/16/2025 showed LV appears normal with EF 45-50%. Septal dyskinesis is seen, RV appears normal with RVSP 50 mmHg. Mildly dilated LA & RA Mild mitral regurgitation Mild-Moderate TR. 03/21, patient had 2 rapid response events for SVT in the 170-200s which self converted in minutes. 04/01 patient had 2 rapid response calls due to episodes of SVT, was started on amiodarone drip and subsequently underwent electrical cardioversion in ICU. Plan: - continue amiodarone 200 mg BID PO and aspirin 81 mg daily. - started on Eliquis 2.5 mg BID. - Maintain K >4.0 and Mag >2.0. - Continue dialysis per nephrology. #Extensive atherosclerotic cardiovascular disease with bilateral femoral artery occlusions and distal trifurcation disease with gangrenous changes, ruled out. #Vasopressor-induced vasoconstriction and gangrene of B/L fingers, sequelae. #Left foot gangrene, s/p BKA. -Patient has history of right extremity BKA due to severe PAD. This admission after severe shock requiring pressor support patient subsequently developed ischemia of the right and left fingertips. Vascular surgeon stated that the patient is not a candidate at this time for revascularization, however stated that would discuss case with general surgeon. Likely upper extremity digits affected by vasopressor support in combination with severe PAD causing limb ischemia. Angiography showed Normal, nonobstructive epicardial coronary arteries. Mild left ventricular dysfunction, ejection fraction 50%. Right ulnarl artery totally occluded with excellent flow from the radial artery. Left lower extremity angiogram showed widely patent SFA and trifurcation with distal dorsalis pedis 100% occlusion. Right lower extremity angiogram also showed no significant obstructive lesions until trifurcation( amputated BKA).Discontinued on aspirin, plavix and statin after angiography. Plan: - continue aspirin 81 mg daily. - continue Zosyn IV. Rest of conditions to continue current management per primary team: #Staph hemolyticus bacteremia, treated. #Septic shock, resolved. #Acute hypoxic respiratory failure. #Community-acquired pneumonia, Stenotrophomonas maltophilia. #ESRD (HD on ). #History of type 2 diabetes. #Respiratory acidosis, resolved. #HAGMA, resolved. #Lactic acidosis, resolved. #Hyperkalemia, resolved. #Shock liver, resolved. #Possible GI bleed. #Macrocytic anemia. #Thrombocytopenia. #Hematemesis, resolved. #Hypoglycemia, resolved. Discussed the patient with my attending Dr Villalobos. Minh Smith MD, PGY 2. Disclaimer: This note was dictated by speech recognition. Minor errors in scale model maker may be present due to voice recognition software.
[2025-04-10] VITALS (27 sets, daily range): BP systolic 107–138; BP diastolic 59–83; PULSE 62–78; RESP 12–18; TEMP 35.9–36.7; O2SAT 92–100; BMI 37.6
[2025-04-10] MEDS: HYDROcodone/APAP 10/325 TAB PO ×2 (01:33→07:44)
[2025-04-10 06:46] LABS: Basophils % (Auto) 0 % (0-2.5); Eosinophils # (Auto) 0.4 Thou/mm3 (0.0-0.5); Eosinophils % (Auto) 5 % (0-10); Hematocrit 23.3 % (41.0-53.0); Immature Granulocytes % (Auto) 5 % (0-0); Immature Granulocytes Auto 0.43 Thou/mm3 (0.00-0.00); Lymphocytes # (Auto) 0.9 Thou/mm3 (1.0-4.8); Lymphocytes % (Auto) 11 % (10-50); Mean Corpuscular HGB Conc 30.5 g/dl (31.0-37.0); Mean Corpuscular Hemoglobin 31.3 pg (25.0-35.0); Mean Corpuscular Volume 103 fL (80-100); Monocytes # (Auto) 0.9 Thou/mm3 (0.0-0.8); Monocytes % (Auto) 11 % (0-12); Neutrophils # (Auto) 5.8 Thou/mm3 (1.8-7.7); Neutrophils % (Auto) 68 % (37-80); Nucleated Red Blood Cell % 0 /100 WBC (0); Platelet Count 132 Thou/mm3 (140-440); RDW Standard Deviation 69.4 fL (35.1-43.9); Red Blood Count 2.27 Miln/mm3 (4.50-5.90); White Blood Count 8.5 Thou/mm3 (3.8-10.6)
[2025-04-10 06:59] LABS: Hemoglobin 7.1 g/dL (13.5-16.0)
[2025-04-10 07:10] LABS: Alanine Aminotransferase 11 U/L (10-49); Albumin, Serum 3.1 gm/dL (3.5-5.0); Albumin/Globulin Ratio 1.1 (1.2-2.2); Alkaline Phosphatase 78 U/L (46-116); Anion Gap 9 (7-16); Aspartate Amino Transferase 11 U/L (0-34); BUN/Creatinine Ratio 8 Ratio (12-20); Bilirubin,Total 0.5 mg/dL (0.3-1.2); Blood Urea Nitrogen 42 mg/dL (9-23); Calcium 7.9 mg/dL (8.3-10.6); Calcium (Corrected) 8.6 mg/dL (8.5-10.1); Carbon Dioxide 27.6 mMol/L (20.0-31.0); Chloride 100 mMol/L (98-107); Creatinine (Component) 5.1 mg/dL (0.6-1.3); Estimated Creatinine Clearance 23.5 mL/min (>60); Globulin 2.9 gm/dL (2.3-3.5); Glucose 86 mg/dL (74-106); Magnesium 2.3 mg/dL (1.6-2.6); Osmolality,Calculated 283 (275-295); Phosphorous 6.8 mg/dL (2.4-5.1); Potassium 4.6 mMol/L (3.4-5.1); Sodium 137 mMol/L (136-145); eGFR 13 See Note
--- NOTE | 2025-04-10 08:35 | XR_ITS ---
Examination: Testicular sonography complete TECHNIQUE: Ayers scale sonographic images testes, assessment arterial inflow to this outflow Doppler spectrum analysis color flow analysis Date and time: April 10, 2025 1123 hours INDICATIONS: Scrotal swelling beginning 2 days ago FINDINGS: Right testis 3.6 cm epididymis is 17 mm Arterial flow testicle. No testicular mass Left testis 3.6 cm epididymis 21 mm Arterial flow to the testicle. No testicular mass Marked thickening of the scrotal [place], 4.7 cm on the right 4.8 cm on the left IMPRESSION: No testicular torsion or testicular mass Marked scrotal wall thickening, edema, no scrotal abscess
--- NOTE | 2025-04-10 09:09 | ESPR_ITS ---
Documentation for date of: 04/10/25 Subjective Subjective Interval history: Patient was seen and examined at bedside this morning. No acute overnight events. Patient stated that his pain is a little bit worse and today, I explained to him that he does have pain medication for breakthrough pain if needed and that we will manage his pain accordingly. He also mentioned that he has high a lot of swelling including scrotal swelling. He has no other complaints at this time. Exam Vital Signs Temp Pulse Resp BP Pulse Ox O2 Del Method O2 Flow Rate 96.6 F L 76 14 137/79 H 92 L Nasal Cannula 3 04/10/25 08:00 04/10/25 09:00 04/10/25 08:00 04/10/25 09:00 04/10/25 08:00 04/10/25 08:00 04/10/25 07:56 FiO2 50 04/08/25 16:00 Narrative Exam General: AO x 3, no acute distress Eyes: Pupils reactive to light, EOMI, vision intact Ears: No visible ear discharge Nose: No visible nasal discharge. Mouth/Throat: Moist mucous membranes, no redness, no lesions. Neck: Neck supple, no cervical lymphadenopathy. Lungs: Clear CHRISTIANO Cardio: Normal S1/S2, irregular, no murmurs, no JVD Abdomen: Soft, non-tender, no palpable masses, peristalsis present, no guarding or rebound Extremities: Right BKA with cyanotic changes which have slightly improved, left distal leg amputation above ankle level with clean dressing, right upper extremity digits show necrotic changes at the tips and extending proximally, swelling CHRISTIANO LE upto low abdomen : scrotal swelling Skin: Right upper extremity digits show necrotic changes at the tips Neuro: No focal neurological deficits, motor and sensory intact Objective Labs 04/10/25 06:15 04/10/25 06:15 Labs: Laboratory Results - last 24 hr 04/09/25 04/10/25 08:37 06:15 WBC 8.5 RBC 2.27 L Hgb 7.4 L 7.1 L Hct 24.6 L 23.3 L MCV 103 H MCH 31.3 MCHC 30.5 L RDW Std Deviation 69.4 H Plt Count 132 L Neut % (Auto) 68 Lymph % (Auto) 11 [place] % (Auto) 11 Eos % (Auto) 5 Baso % (Auto) 0 Neut # (Auto) 5.8 Lymph # (Auto) 0.9 L [place] # (Auto) 0.9 H Eos # (Auto) 0.4 Baso # (Auto) 0.0 Immature Gran # (Auto) 0.43 H Absolute Nucleated RBC 0.00 Immature Gran % 5 H Nucleated RBC % 0 Sodium 137 Potassium 4.6 Chloride 100 Carbon Dioxide 27.6 Anion Gap 9 BUN 42 H Creatinine 5.1 H* D Estim Creat Clear Calc 23.5 L eGFR 13 L* BUN/Creatinine Ratio 8 L Glucose 86 Calculated Osmolality 283 Calcium 7.9 L Corrected Calcium 8.6 Phosphorus 6.8 H Magnesium 2.3 Total Bilirubin 0.5 AST 11 ALT 11 Alkaline Phosphatase 78 Total Protein 6.0 Albumin 3.1 L Globulin 2.9 Albumin/Globulin Ratio 1.1 L ABG Interpretation ABG results: 03/14/25 03/14/25 03/14/25 14:44 16:44 18:53 ABG pH 7.03 L* 7.04 L* 7.10 L* ABG pCO2 43 50 H 46 ABG pO2 86 128 H D 57 L* D ABG HCO3 11 L 13 L 14 L ABG O2 Saturation 91 97 78 L ABG Base Excess -19 L -17 L -15 L VBG pH VBG pCO2 VBG pO2 VBG Base Excess 03/14/25 03/15/25 03/15/25 21:20 05:07 12:28 ABG pH 7.21 L D 7.41 D ABG pCO2 32 D 31 L ABG pO2 116 H D 74 L D ABG HCO3 13 L 20 ABG O2 Saturation 97 95 ABG Base Excess -14 L -4 L VBG pH 7.43 VBG pCO2 34 L VBG pO2 37 VBG Base Excess -1 03/16/25 03/16/25 03/16/25 04:51 11:48 19:30 ABG pH 7.46 H 7.22 L D 7.38 D ABG pCO2 29 L 66 H D 48 D ABG pO2 78 L 79 L 236 H D ABG HCO3 21 27 H 29 H ABG O2 Saturation 96 91 100 H ABG Base Excess -2 -2 3 VBG pH VBG pCO2 VBG pO2 VBG Base Excess 03/17/25 03/18/25 03/19/25 04:53 09:27 04:46 ABG pH 7.38 7.35 ABG pCO2 49 H 48 ABG pO2 78 L D 92 ABG HCO3 29 H 26 ABG O2 Saturation 95 98 ABG Base Excess 3 0 VBG pH 7.34 VBG pCO2 54 D VBG pO2 34 VBG Base Excess 2 03/24/25 04/01/25 04/01/25 22:00 04:53 15:50 ABG pH 7.33 L 7.23 L ABG pCO2 48 62 H ABG pO2 233 H 102 ABG HCO3 25 26 ABG O2 Saturation 101 H 98 ABG Base Excess -1 -2 VBG pH 7.24 L VBG pCO2 57 H VBG pO2 51 VBG Base Excess -3 04/01/25 04/02/25 04/03/25 18:40 04:45 05:17 ABG pH 7.24 L 7.24 L 7.31 L ABG pCO2 61 H 59 H 56 H ABG pO2 207 H D 203 H 123 H D ABG HCO3 26 25 28 H ABG O2 Saturation 101 H 101 H 100 H ABG Base Excess -2 -3 2 VBG pH VBG pCO2 VBG pO2 VBG Base Excess 04/04/25 05:02 ABG pH 7.33 L ABG pCO2 51 H ABG pO2 114 H ABG HCO3 27 H ABG O2 Saturation 100 H ABG Base Excess 1 VBG pH VBG pCO2 VBG pO2 VBG Base Excess Quality Measures Quality Measures VTE prophylaxis Assessment & Plan Assessment Current Active Medications: Generic Name Dose Route Start Last Admin Trade Name Freq PRN Reason Stop Dose Admin Acetaminophen 650 mg 03/20/25 11:35 03/21/25 06:39 Acetaminophen 325 Mg Tablet PO 04/19/25 11:34 650 mg Q6HR PRN Administration pain and Fever >100.4 Protocol Hydrocodone Bitart/Acetaminophen 1 tab 04/09/25 17:13 04/10/25 07:44 Hydrocodone/Apap 10/325 Tab PO 04/14/25 17:12 1 tab Q6HR PRN Administration PAIN 4-10 Amiodarone HCl 200 mg 04/05/25 09:00 04/09/25 20:47 Amiodarone Hcl 200 Mg Tablet PO 05/05/25 08:59 200 mg BID [place]AT Administration Apixaban 2.5 mg 04/08/25 10:15 04/09/25 20:48 Apixaban 2.5 Mg Tablet PO 05/08/25 10:14 2.5 mg BID [place] Administration Artificial Tears 0 drop 04/04/25 21:37 04/04/25 21:53 Artificial Tears 225 Drop/15 Ml Btl BOTH EYES 05/04/25 21:36 2 drop PRN PRN Administration TO KEEP EYES MOIST Aspirin 81 mg 04/03/25 12:00 04/09/25 08:58 Aspirin Ec 81 Mg Tabec PO 05/03/25 11:59 81 mg QDAY [place] Administration Heparin Sodium (Porcine) 3,800 unit 03/30/25 08:26 04/08/25 11:06 Heparin Sod Inj 1000 Unit/Ml Vial 10 Ml INDWELLCAT 04/13/25 08:25 3,800 unit PRN PRN Administration DIALYSIS Hydromorphone HCl 0.5 mg 04/10/25 08:36 Hydromorphone Inj 2 Mg/Ml Vial IVP 04/15/25 08:35 Q4HR PRN Breakthrough Pain Albumin Human 25 gm in 100 mls @ 100 mls/hr 04/01/25 07:37 04/02/25 09:00 Albuminar-25 Ivpb IV Infused PRN PRN Infusion DIALYSIS Levalbuterol HCl 0.31 mg 03/28/25 10:24 03/31/25 00:37 Levalbuterol Rt 0.31 Mg/3 Ml Nebu INH 04/19/25 12:14 0.31 mg Q6HRRT PRN Administration Wheezing Morphine Sulfate 15 mg 04/05/25 14:30 04/09/25 20:48 Morphine Sulf 15 Mg Tabcr PO 04/10/25 14:29 15 mg Q12HR [place] Administration Protocol Ondansetron HCl 4 mg 03/14/25 17:31 03/30/25 01:39 Ondansetron Inj 2 Mg/Ml Inj 2 Ml IV 04/13/25 17:30 4 mg Q6H PRN Administration NAUSEA OR VOMITING Protocol Pantoprazole Sodium 40 mg 04/08/25 09:00 04/09/25 08:58 Pantoprazole 40 Mg Tablet PO 05/08/25 08:59 40 mg QDAY [place] Administration Polyethylene Glycol 17 gm 03/26/25 18:00 04/09/25 08:59 Polyethylene Glycol 17 Gm Packet PO 04/25/25 17:59 Not Given QDAY MON[place]ERRAT Sennosides 1 tab 03/26/25 18:00 04/09/25 08:59 Senna Tablet PO 04/25/25 17:59 Not Given QDAY MONTSERRAT Protocol Sevelamer Carbonate 800 mg 04/03/25 12:00 04/09/25 17:09 Sevelamer Carbonate 800 Mg Tablet PO 05/03/25 11:59 800 mg TIDWM [place] Administration Sodium Chloride 3 ml 03/31/25 06:26 Sodium Cl Rt Marjorie 3% 4 Ml Nebu (Non-Formulary) INH 04/16/25 18:59 Q6HRRT PRN To induce cough Plan 49-year-old male with past medical history of DM2, hypertension, ESRD (HD ), HFpEF (EF 55% on 2021), and right BKA due to osteomyelitis was admitted to the ICU on 03/14/2025 for acute hypoxic respiratory failure, acute encephalopathy, and shock. He was extubated and downgraded to telemetry on 03/20/2025. #Scrotal swelling Patient today complained of scrotal swelling Could be do to fluid overload status less likely due to torsion or hernia Plan: Testicular US ordered Bumex 1mg IV x1 #Right ulnar artery occlusion #Right upper extremity multiple digit necrosis #Left lower extremity gangrene/tissue necrosis s/p guillotine amputation distal #Peripheral Vascular disease, severe Abdomen CTA with runoff that showed occlusion of multiple arteries including the left radial, gluteal, and tibial arteries as well as 90% stenosis of the left superficial femoral artery Also showed 80% stenosis of right superficial femoral artery. Patient had his angiogram done yesterday showed right ulnar artery to be totally occluded or absent and there was no CAD. S/p guillotine amputation on 04/01/2025 Plan: Continue aspirin 81 mg daily Increased morphine oral extended release to 15 mg three times daily for better management of patient's pain [place] prn q6h Will have Dilaudid 1 mg every 4 hours for breakthrough pain Wound care on board #A-fib with RVR, rate controlled #MAT #SVT Patient again went into SVT last night and was shocked again, but on repeat EKG showed to be in A-fib RVR. Patient again went into SVT and received adenosine 6mg x1 and adenosine 12mg x1 before being cardioverted. Repeat EKG showed what appears to be MAT. [id number] score of 3 points indicating 3.2% risk of stroke per year HAS-BLED score of 5 points Patient had his angiogram done 03/31/2025 showed right ulnar artery to be totally occluded or absent and there was no CAD. Cardiology recommended to stop patient's aspirin, Plavix, metoprolol, and statin Patient had a rapid response called on 04/01/2025 was tachycardic in the 140s and EKG looked to be like a SVT. Patient was cardioverted and was then in the heart rates in the 60s. Plan: Continue amiodarone 200 mg twice daily Continue Eliquis 2.5 mg BID Keep Potassium >4 and Mg >2 Plate Conditioner consulted, appreciate recommendations #HFpEF (EF 50-55% on 2024). Echo on 03/16/2025 showed EF of 45 to 50% and septal dyskinesis. Echo on 03/23/2025 shows some improvement and left ventricle function with an EF of 50 to 55% Plan: Will continue with hemodialysis with fluid removal. Daily weights. Strict JENN's. fluid restriction. #ESRD (HD on ). Patient was on hemodialysis and had AV fistula, but was clotted therefore cannot be used. Tunnedled dialysis cath placed 03/26/2025 Plan: Continue hemodialysis as scheduled. Continue sevelamer 800 mg 3 times daily [address]. Pleitez following, appreciate recommendations Avoid nephrotoxic agents. Renally dose medications. #Macrocytic anemia. #Thrombocytopenia, improving Patient's hemoglobin was downtrending from 11.9 on admission Hemoglobin 7.1 and platelets 132 No active signs of bleeding Plan: Continue to monitor daily CBC Transfuse if Hgb less than 7. #Transaminitis, resolved #Hepatomegaly. Hepatitis panel negative and abdominal ultrasound that shows some hepatomegaly with possible cirrhosis versus hepatocellular disease. Plan: Continue monitoring daily labs #Hx of DM2. A1c 5.4 No need for ISS #Acute Hypoxic resp failure in the setting of Left base PNA, improving #Stenotrophomonas maltophilia pneumonia, resolved . #Respiratory acidosis, resolved. #Septic shock, resolved. #Troponinemia, resolved #Hematemesis, resolved #HAGMA, resolved. #Lactic acidosis, resolved. #Staph Hemolyticus bacteremia, resolved (finished course of vancomycin 03/23- 04/05) #CLABSI, resolved #Hyperbilirubinemia, resolved Hospital Maintenance: Disposition: Pending insurance auth Diet: renal DVT ppx: Heparin 5000 SC Q12H GI ppx: Protonix . Code status: DNR. Case disclosed with Attending Dr. Amrit Lee PGY1 Disclaimer: This note was dictated by speech recognition and even though it was carefully revised there may still be minor errors in rotary slicing machine operator due to voice recognition software. Attending Provider Attestation/Addendum I reviewed labs, imaging, EKG, home medications and prior available records. Face to face evaluation was performed by me. I have personally examined the patient and discussed assessment and plan with the IM team. I reviewed the resident note and agree with the plan with exceptions as below. Acute encephalopathy, resolved Acute hypoxic respiratory failure, status post intubation, s/p extubation ESRD on hemodialysis HFrEF EF 45 to 50% Atrial fibrillation with controlled ventricular rhythm PAD Gangrene of toes and fingers, in the setting of severe PAD in the vasopressors Non-STEMI Clotting of dialysis fistula Leukocytosis, improved Patient had a scrotal swelling. Ordered testicular ultrasound Added Volodymyrien for insomnia Status post guillotine left foot amputation on 04/01 Finished daptomycin and Zosyn on 04/08 Status post cardiac catheterization that showed nonobstructive CAD Status post angiogram that showed severe PAD with occlusions. Continue pain management orally Status post permacath on 03/26 Outpatient follow-up with vascular surgery for the clotted fistula Monitor H&H: Stable Started diltiazem for the A-fib. Continue Eliquis 2.5 mg twice daily Continue aspirin Continue hemodialysis per nephrology recommendations PT recommended SNF. He is not on hospice. Pending authorization for the placement
--- NOTE | 2025-04-10 11:21 | ESPR_ITS ---
<Statement entered by Yanci Villalobos MD - 04/13/25 08:22> I personally evaluated examined the patient continues to have severe pain in the right hand possible requires an amputation of the distal phalanges patient is otherwise doing fairly well cardiac guillen remains in A-fib rate controlled well heart failure well compensated patient have NSTEMI type II myocardial infarction from sepsis on admission continue to monitor the patient for cardiac status with primary team evaluated patient with Dr. Wilkinson PGY 2 continue to monitor the patient closely until discharge patient's cardiac risk is low following discharge to have amputation of the phalanges by hand surgeon Documentation for date of: 04/10/25 Subjective Subjective Interval history: Patient was seen and examined at bedside. No acute overnight events. Patient reports no new complaints. Discharge is pending. Exam Vital Signs Temp Pulse Resp BP Pulse Ox O2 Del Method O2 Flow Rate 98.0 F 70 18 115/67 97 Nasal Cannula 3 04/10/25 11:02 04/10/25 11:21 04/10/25 11:02 04/10/25 11:21 04/10/25 11:02 04/10/25 08:00 04/10/25 11:02 FiO2 50 04/08/25 16:00 Narrative Exam Gen: Well-developed male. HEENT: NCAT, PERRLA, EOMI, MMM, anicteric conjunctivae. CVS: normal S1 and S2. RRR. No M/R/G. Resp: CTA B/L. No rhonchi, rales, crackles or wheezing. Abd: soft, non-tender, non-distended. BS+ in all 4 quadrants. MSK: S/p right BKA, stump appears necrotic, right thigh has blister. S/p left BKA, clean dressing. Dry gangrene over right 2nd and 3rd digits. Tip of left second digit appears necrotic. Neuro: CN II-XII grossly intact. Alert and oriented x3. Psych: appropriate mood and affect. Objective Labs 04/10/25 06:15 04/10/25 06:15 Labs: Laboratory Results - last 24 hr 04/10/25 06:15 WBC 8.5 RBC 2.27 L Hgb 7.1 L Hct 23.3 L MCV 103 H MCH 31.3 MCHC 30.5 L RDW Std Deviation 69.4 H Plt Count 132 L Neut % (Auto) 68 Lymph % (Auto) 11 [place]pine % (Auto) 11 Eos % (Auto) 5 Baso % (Auto) 0 Neut # (Auto) 5.8 Lymph # (Auto) 0.9 L Alpine # (Auto) 0.9 H Eos # (Auto) 0.4 Baso # (Auto) 0.0 Immature Gran # (Auto) 0.43 H Absolute Nucleated RBC 0.00 Immature Gran % 5 H Nucleated RBC % 0 Sodium 137 Potassium 4.6 Chloride 100 Carbon Dioxide 27.6 Anion Gap 9 BUN 42 H Creatinine 5.1 H* D Estim Creat Clear Calc 23.5 L eGFR 13 L* BUN/Creatinine Ratio 8 L Glucose 86 Calculated Osmolality 283 Calcium 7.9 L Corrected Calcium 8.6 Phosphorus 6.8 H Magnesium 2.3 Total Bilirubin 0.5 AST 11 ALT 11 Alkaline Phosphatase 78 Total Protein 6.0 Albumin 3.1 L Globulin 2.9 Albumin/Globulin Ratio 1.1 L ABG Interpretation ABG results: 03/14/25 03/14/25 03/14/25 14:44 16:44 18:53 ABG pH 7.03 L* 7.04 L* 7.10 L* ABG pCO2 43 50 H 46 ABG pO2 86 128 H D 57 L* D ABG HCO3 11 L 13 L 14 L ABG O2 Saturation 91 97 78 L ABG Base Excess -19 L -17 L -15 L VBG pH VBG pCO2 VBG pO2 VBG Base Excess 03/14/25 03/15/25 03/15/25 21:20 05:07 12:28 ABG pH 7.21 L D 7.41 D ABG pCO2 32 D 31 L ABG pO2 116 H D 74 L D ABG HCO3 13 L 20 ABG O2 Saturation 97 95 ABG Base Excess -14 L -4 L VBG pH 7.43 VBG pCO2 34 L VBG pO2 37 VBG Base Excess -1 03/16/25 03/16/25 03/16/25 04:51 11:48 19:30 ABG pH 7.46 H 7.22 L D 7.38 D ABG pCO2 29 L 66 H D 48 D ABG pO2 78 L 79 L 236 H D ABG HCO3 21 27 H 29 H ABG O2 Saturation 96 91 100 H ABG Base Excess -2 -2 3 VBG pH VBG pCO2 VBG pO2 VBG Base Excess 03/17/25 03/18/25 03/19/25 04:53 09:27 04:46 ABG pH 7.38 7.35 ABG pCO2 49 H 48 ABG pO2 78 L D 92 ABG HCO3 29 H 26 ABG O2 Saturation 95 98 ABG Base Excess 3 0 VBG pH 7.34 VBG pCO2 54 D VBG pO2 34 VBG Base Excess 2 03/24/25 04/01/25 04/01/25 22:00 04:53 15:50 ABG pH 7.33 L 7.23 L ABG pCO2 48 62 H ABG pO2 233 H 102 ABG HCO3 25 26 ABG O2 Saturation 101 H 98 ABG Base Excess -1 -2 VBG pH 7.24 L VBG pCO2 57 H VBG pO2 51 VBG Base Excess -3 04/01/25 04/02/25 04/03/25 18:40 04:45 05:17 ABG pH 7.24 L 7.24 L 7.31 L ABG pCO2 61 H 59 H 56 H ABG pO2 207 H D 203 H 123 H D ABG HCO3 26 25 28 H ABG O2 Saturation 101 H 101 H 100 H ABG Base Excess -2 -3 2 VBG pH VBG pCO2 VBG pO2 VBG Base Excess 04/04/25 05:02 ABG pH 7.33 L ABG pCO2 51 H ABG pO2 114 H ABG HCO3 27 H ABG O2 Saturation 100 H ABG Base Excess 1 VBG pH VBG pCO2 VBG pO2 VBG Base Excess Quality Measures Quality Measures VTE prophylaxis Assessment & Plan Assessment Current Active Medications: Generic Name Dose Route Start Last Admin Trade Name [facility] PRN Reason Stop Dose Admin Acetaminophen 650 mg 03/20/25 11:35 03/21/25 06:39 Acetaminophen 325 Mg Tablet PO 04/19/25 11:34 650 mg Q6HR PRN Administration pain and Fever >100.4 Protocol Hydrocodone Bitart/Acetaminophen 1 tab 04/09/25 17:13 04/10/25 07:44 Hydrocodone/Apap 10/325 Tab PO 04/14/25 17:12 1 tab Q6HR PRN Administration PAIN 4-10 Amiodarone HCl 200 mg 04/05/25 09:00 04/09/25 20:47 Amiodarone Hcl 200 Mg Tablet PO 05/05/25 08:59 200 mg BID [place] Administration Apixaban 2.5 mg 04/08/25 10:15 04/09/25 20:48 Apixaban 2.5 Mg Tablet PO 05/08/25 10:14 2.5 mg BID [place] Administration Artificial Tears 0 drop 04/04/25 21:37 04/04/25 21:53 Artificial Tears 225 Drop/15 Ml Btl BOTH EYES 05/04/25 21:36 2 drop PRN PRN Administration TO KEEP EYES MOIST Aspirin 81 mg 04/03/25 12:00 04/09/25 08:58 Aspirin Ec 81 Mg Tabec PO 05/03/25 11:59 81 mg QDAY [place] Administration Heparin Sodium (Porcine) 3,800 unit 03/30/25 08:26 04/08/25 11:06 Heparin Sod Inj 1000 Unit/Ml Vial 10 Ml INDWELLCAT 04/13/25 08:25 3,800 unit PRN PRN Administration DIALYSIS Hydromorphone HCl 0.5 mg 04/10/25 08:36 Hydromorphone Inj 2 Mg/Ml Vial IVP 04/15/25 08:35 Q4HR PRN Breakthrough Pain Albumin Human 25 gm in 100 mls @ 100 mls/hr 04/01/25 07:37 04/02/25 09:00 Albuminar-25 Ivpb IV Infused PRN PRN Infusion DIALYSIS Levalbuterol HCl 0.31 mg 03/28/25 10:24 03/31/25 00:37 Levalbuterol Rt 0.31 Mg/3 Ml Nebu INH 04/19/25 12:14 0.31 mg Q6HRRT PRN Administration Wheezing Morphine Sulfate 15 mg 04/10/25 14:00 Morphine Sulf 15 Mg Tabcr PO 04/15/25 13:59 TID [place] Protocol Ondansetron HCl 4 mg 03/14/25 17:31 03/30/25 01:39 Ondansetron Inj 2 Mg/Ml Inj 2 Ml IV 04/13/25 17:30 4 mg Q6H PRN Administration NAUSEA OR VOMITING Protocol Pantoprazole Sodium 40 mg 04/08/25 09:00 04/09/25 08:58 Pantoprazole 40 Mg Tablet PO 05/08/25 08:59 40 mg QDAY [place] Administration Polyethylene Glycol 17 gm 03/26/25 18:00 04/09/25 08:59 Polyethylene Glycol 17 Gm Packet PO 04/25/25 17:59 Not Given QDAY [facility] Sennosides 1 tab 03/26/25 18:00 04/09/25 08:59 Senna Tablet PO 04/25/25 17:59 Not Given QDAY [facility] Protocol Sevelamer Carbonate 800 mg 04/03/25 12:00 04/10/25 09:46 Sevelamer Carbonate 800 Mg Tablet PO 05/03/25 11:59 Not Given TIDWM [place] Sodium Chloride 3 ml 03/31/25 06:26 Sodium Cl Rt Marjorie 3% 4 Ml Nebu (Non-Formulary) INH 04/16/25 18:59 Q6HRRT PRN To induce cough Plan 49-year-old male with past medical history of DM2, hypertension, ESRD (HD ), HFpEF (EF 55% on 2021), and right BKA due to osteomyelitis was initially admitted to the ICU on 03/14/2025 for acute hypoxic respiratory failure, acute encephalopathy, and shock. He was subsequently extubated and downgraded to telemetry on 03/20/2025 for continuation of care. #Status post acute non-ST segment elevation myocardial infarction, NSTEMI possible type 2 troponin versus NSTEMI. #SVT episodes. #Afib, rate controlled. #HFpEF (EF 45-50%). Patient s/p intubation and pressor support in ICU for shock, distributive secondary to sepsis versus cardiogenic. Patient initially presented to ED in SVT and required shock x1. Troponin initially 1.856 uptrended to 7.899 peak. Patient was treated for pneumonia. Patient was able to wean off pressors, extubated, now downgraded to tele. CT LER showed diffuse stenosis on the arteries of the LLE, occlusions in almost all major arteries. Echo done on 03/16/2025 showed LV appears normal with EF 45-50%. Septal dyskinesis is seen, RV appears normal with RVSP 50 mmHg. Mildly dilated LA & RA Mild mitral regurgitation Mild-Moderate TR. 03/21, patient had 2 rapid response events for SVT in the 170-200s which self converted in minutes. 04/01 patient had 2 rapid response calls due to episodes of SVT, was started on amiodarone drip and subsequently underwent electrical cardioversion in ICU. Plan: - continue amiodarone 200 mg BID PO and aspirin 81 mg daily. - continue Eliquis 2.5 mg BID. - Maintain K >4.0 and Mag >2.0. - Continue dialysis per nephrology. #Extensive atherosclerotic cardiovascular disease with bilateral femoral artery occlusions and distal trifurcation disease with gangrenous changes, ruled out. #Vasopressor-induced vasoconstriction and gangrene of B/L fingers, sequelae. #Left foot gangrene, s/p BKA. -Patient has history of right extremity BKA due to severe PAD. This admission after severe shock requiring pressor support patient subsequently developed ischemia of the right and left fingertips. Vascular surgeon stated that the patient is not a candidate at this time for revascularization, however stated that would discuss case with general surgeon. Likely upper extremity digits affected by vasopressor support in combination with severe PAD causing limb ischemia. Angiography showed Normal, nonobstructive epicardial coronary arteries. Mild left ventricular dysfunction, ejection fraction 50%. Right ulnarl artery totally occluded with excellent flow from the radial artery. Left lower extremity angiogram showed widely patent SFA and trifurcation with distal dorsalis pedis 100% occlusion. Right lower extremity angiogram also showed no significant obstructive lesions until trifurcation( amputated BKA).Discontinued on aspirin, plavix and statin after angiography. Plan: - continue aspirin 81 mg daily. Rest of conditions to continue current management per primary team: #Staph hemolyticus bacteremia, treated. #Septic shock, resolved. #Acute hypoxic respiratory failure. #Community-acquired pneumonia, Stenotrophomonas maltophilia. #ESRD (HD on ). #History of type 2 diabetes. #Respiratory acidosis, resolved. #HAGMA, resolved. #Lactic acidosis, resolved. #Hyperkalemia, resolved. #Shock liver, resolved. #Possible GI bleed. #Macrocytic anemia. #Thrombocytopenia. #Hematemesis, resolved. #Hypoglycemia, resolved. Discussed the patient with my attending Dr Villalobos. Minh Smith MD, PGY 2. Disclaimer: This note was dictated by speech recognition. Minor errors in apartment leasing manager may be present due to voice recognition software.
[2025-04-10] MEDS: PANTOPRAZOLE 40 MG TABLET PO (12:04)
[2025-04-10] MEDS: SEVELAMER CARBONATE 800 MG TABLET PO ×2 (12:04→17:21)
[2025-04-10] MEDS: ASPIRIN EC 81 MG TABEC PO (12:05)
[2025-04-10] MEDS: APIXABAN 2.5 MG TABLET PO ×2 (12:06→20:34)
[2025-04-10] MEDS: Morphine Sulf 15 MG TABCR PO ×2 (12:08→21:46)
[2025-04-10] MEDS: AMIODARONE HCL 200 MG TABLET PO ×2 (12:08→20:33)
[2025-04-10] MEDS: BUMETANIDE INJ 0.25 MG/ML VIAL 4 ML 1 MG IVP (12:10)
[2025-04-10] MEDS: HEPARIN SOD INJ 1000 UNIT/ML VIAL 10 ML 3800 UNIT INDWELLCAT (13:32)
[2025-04-10] MEDS: HYDROmorphone INJ 2 MG/ML VIAL 0.5 MG IVP ×3 (15:30→23:39)
--- NOTE | 2025-04-10 16:01 | PC.SS ---
Patient remains hospitalized due to needing insurance authorization from [employer].
--- NOTE | 2025-04-10 18:23 | ESPR_ITS ---
Documentation for date of: 04/10/25 Subjective Subjective Interval history: Mr. Mcclain is a 49-year-old male with past medical history of type 2 diabetes mellitus, hypertension, end-stage renal disease (HD ), HFpEF (EF 50 to 55% 02/2025) and right BKA due to osteomyelitis who was brought in by ambulance to [facility] emergency department on 03/14/2025 with a chief complaint of altered mental status. Patient was intubated secondary to inability to protect airway. On presentation patient's assisted with procuring history, per patient's patient had progressive shortness of breath and had change in mentation, patient was found to be in SVT when EMS arrived was shocked once and was converted to sinus rhythm. Patient also had to get additional sessions of hemodialysis due to increase in weight, last session of hemodialysis before admission to the hospital was on 12 March 2025. Patient also does have history of methamphetamine use, urine tox screen was positive for methamphetamine and marijuana on presentation. With the progression of hospital course patient was initially managed in the intensive care unit for acute hypoxic respiratory failure was found to have stenotrophomonas maltophilia pneumonia was treated with IV antibiotics, had significant lactic acidosis respiratory acidosis and high anion gap metabolic acidosis which improved in ICU patient did require CRRT and was eventually transition to hemodialysis, patient was eventually extubated on downgraded to telemetry on 03/20/2025. Patient's hospital stay is further complicated with possible acute versus chronic limb ischemia and underlying severe peripheral vascular disease, machine or machinery mechanic discussed case with vascular surgeon at [facility] during the hospitalization, patient was a poor candidate for revascularization per documentation. Patient started on amiodarone for underlying atrial fibrillation and eventually infectious disease consulted for Staph haemolyticus bacteremia possible CLABSI. Patient continue to receive inpatient hemodialysis. 03/25/2025: Patient successfully completed 3 hours 4 minutes of dialysis session today, postdialysis weight 115.9 kg was hypotensive at times during the dialysis, tolerated dialysis well through the temporary dialysis catheter. Net fluid removed 0.5 L. Blood pressure was soft, received 2 bags of albumin during the dialysis session.Patient will need permanent dialysis catheter placement, will be scheduled with interventional radiology in a.m. after holding aspirin and Plavix. Patient will be made n.p.o. after midnight by primary team. 03/26/2025: Patient seen and examined at bedside, patient had permanent tunneled dialysis catheter placed today. Currently complains of some back pain. Patient will continue to receive IV antibiotics until 04/05/2025 with hemodialysis. Otherwise patient is stable, has no current complaints. Anticipate discharge in next 24 hours on supplemental oxygen. 03/27/2025:Patient received dialysis treatment today, completed about 2 hours of dialysis session, about 1.1 L fluid removed, postdialysis weight 115 kg, was administered 100 mL albumin during the dialysis session for low blood pressure, patient did receive alteplase through the indwelling catheter x 1. Primary team discussed the case with patient and patient's family, patient has been requiring an extensive amount of IV pain medication, further plan by primary team is to discharge patient to long term facility and not on hospice as patient does not have underlying clear etiology for hospice. Patient's DAPT being held, cardiology following the case and patient may undergo angiogram heart, bilateral upper and lower extremities on Saturday. 03/28/2025: Patient continues to complain of pain, patient's gabapentin changed to pregabalin 25 twice daily and [place] was increased to 7.5 mg. Patient Aspirin and Plavix being held, patient going to undergo cardiac angiogram and angiogram upper and lower extremities likely in the morning. Will coordinate with cardiology. 03/29/2025: Labs and Vitals reviewed. Patient scheduled for Procedure with Cardiology Today, will plan for dialysis pot procedure after discussion with Cardiology Team, otherwise patient is stable, has no current complains. Pregabalin dose adjusted by primrary team. 03/30/2025: Patient received dialysis treatment today, received dialysis for 3 hours 6-minute, about 2 L fluid removed, postdialysis weight 112.3, patient was administered 100 mL of albumin during dialysis. Patient had his angiogram done yesterday showed right ulnar artery to be totally occluded or absent and there was no CAD. Cardiology recommended to stop patient's aspirin, Plavix, metoprolol, and statin and they also started the patient on diltiazem. They also recommended to get general surgery for possible amputation and to start Eliquis 2.5 mg twice daily after the patient has surgery. Will consult general surgery for possible amputation. 03/31/2025: Patient seen and examined at bedside, labs and vitals reviewed. Patient received dialysis yesterday, patient is being evaluated by general surgery for possible amputation. Otherwise has no current complaints, reports no new concerns. 04/01/2025: Patient upgraded to ICU earlier this morning, patient had seizure- like episode. Patient was given Ativan 1 mg x 1. Patient later had another rapid response called with heart rate in 140s and SpO2 in low 80s, patient was very lethargic MAP was found to be in the range of 55-64. Patient eventually upgraded to ICU for IV pressors, patient started on phenylephrine in ICU. Patient will receive dialysis today, scheduled for BKA by surgery later today. 04/03/2025: Patient seen and examined at bedside in ICU, patient was started on TILTROTOR [employer]W [employer]IE[employer], for about 12 hours, had about 1 L fluid removed.Patient was weaned off of phenylephrine, currently not requiring any pressors. Patient does have significant right hand pain due to digital necrosis, is on Dilaudid for pain management. Front End Loader Driver team will obtain punch biopsy today of the skin for further analysis. 04/04/2025: Patient seen and examined at bedside, currently in ICU physically, was downgraded to telemetry yesterday. Patient received dialysis treatment today, goal is to remove about 3 L fluid, patient will likely need another session of dialysis tomorrow morning, patient has significant amount of fluid in the body. Otherwise patient is stable, has no current complaints tolerating dialysis well. 04/05/2025: Patient seen and examined at bedside, currently fluid overloaded as well, will plan for another session of dialysis today with goal to remove fluid. Will continue to monitor patient's fluid status post dialysis today, patient is pending orthopedic consult, is on telemetry. Otherwise has no current complaints. 04/06/2025: Patient seen and examined at bedside, patient received dialysis yesterday 2.7 L removed. Patient received consecutive dialysis for the last two days 2.7 L fluid removed. Patient is stable today, will recieve dialysis today as well, will remove fluid around 2-3L. Pending orthopaedic surgeon evaluation. 04/07/2025: Patient seen and examined at bedside patient received 3 consecutive days of dialysis from 04/04-04/06 had about 3 L removed each day, today patient is euvolemic, saturating well on nasal cannula has no current complaints. Patient will be scheduled for dialysis tomorrow. Patient is pending insurance authorization for placement, patient's pain is managed on extended release morphine. 04/08/2025: Patient seen and examined at bedside, patient received dialysis today, patient had a dialysis session for about 3 hours, 2.5 L fluid removed, postdialysis weight 118.5. Patient is pending placement, otherwise pain is well-managed on oral morphine. Will continue inpatient dialysis. 04/09/2025:Patient seen and examined at bedside., Labs and vitals reviewed. Patient's hemoglobin was 6.9 this morning, repeat hemoglobin 7.4, phosphorus 5.9. Will hold hemodialysis for today, patient has no current complaints. Patient will be discharged on hemodialysis 3 times a week. Patient is pending insurance authorization for discharge. Per primary team documentation patient will not need any IV antibiotics on discharge. 04/10/2025: Patient seen and examined at bedside., Labs and vitals reviewed. Has no current complaints. Recieved HD today, 3L fluid removed. Pending Discharge. Exam Vital Signs Temp Pulse Resp BP Pulse Ox O2 Del Method O2 Flow Rate 97.2 F 71 18 132/72 H 99 Nasal Cannula 2 04/10/25 16:00 04/10/25 16:00 04/10/25 16:00 04/10/25 16:00 04/10/25 16:00 04/10/25 16:00 04/10/25 16:00 FiO2 50 04/08/25 16:00 Narrative Exam General: AO x 3, no acute distress Eyes: Pupils reactive to light, EOMI, vision intact Ears: No visible ear discharge Nose: No visible nasal discharge. Mouth/Throat: Moist mucous membranes, no redness, no lesions. Neck: Neck supple, no cervical lymphadenopathy. Lungs: Clear CHRISTIANO Cardio: Normal S1/S2, irregular, no murmurs, no JVD Abdomen: Soft, non-tender, no palpable masses, peristalsis present, no guarding or rebound Extremities: Right BKA with cyanotic changes which have slightly improved, left distal leg amputation above ankle level with clean dressing, right upper extremity digits show necrotic changes at the tips and extending proximally. Skin: Right upper extremity digits show necrotic changes at the tips Neuro: No focal neurological deficits, motor and sensory intact Objective Labs 04/16/25 08:15 04/16/25 08:15 Labs: Laboratory Results - last 24 hr 04/10/25 06:15 WBC 8.5 RBC 2.27 L Hgb 7.1 L Hct 23.3 L MCV 103 H MCH 31.3 MCHC 30.5 L RDW Std Deviation 69.4 H Plt Count 132 L Neut % (Auto) 68 Lymph % (Auto) 11 Parker % (Auto) 11 Eos % (Auto) 5 Baso % (Auto) 0 Neut # (Auto) 5.8 Lymph # (Auto) 0.9 L Parker # (Auto) 0.9 H Eos # (Auto) 0.4 Baso # (Auto) 0.0 Immature Gran # (Auto) 0.43 H Absolute Nucleated RBC 0.00 Immature Gran % 5 H Nucleated RBC % 0 Sodium 137 Potassium 4.6 Chloride 100 Carbon Dioxide 27.6 Anion Gap 9 BUN 42 H Creatinine 5.1 H* D Estim Creat Clear Calc 23.5 L eGFR 13 L* BUN/Creatinine Ratio 8 L Glucose 86 Calculated Osmolality 283 Calcium 7.9 L Corrected Calcium 8.6 Phosphorus 6.8 H Magnesium 2.3 Total Bilirubin 0.5 AST 11 ALT 11 Alkaline Phosphatase 78 Total Protein 6.0 Albumin 3.1 L Globulin 2.9 Albumin/Globulin Ratio 1.1 L ABG Interpretation ABG results: 03/14/25 03/14/25 03/14/25 14:44 16:44 18:53 ABG pH 7.03 L* 7.04 L* 7.10 L* ABG pCO2 43 50 H 46 ABG pO2 86 128 H D 57 L* D ABG HCO3 11 L 13 L 14 L ABG O2 Saturation 91 97 78 L ABG Base Excess -19 L -17 L -15 L VBG pH VBG pCO2 VBG pO2 VBG Base Excess 03/14/25 03/15/25 03/15/25 21:20 05:07 12:28 ABG pH 7.21 L D 7.41 D ABG pCO2 32 D 31 L ABG pO2 116 H D 74 L D ABG HCO3 13 L 20 ABG O2 Saturation 97 95 ABG Base Excess -14 L -4 L VBG pH 7.43 VBG pCO2 34 L VBG pO2 37 VBG Base Excess -1 03/16/25 03/16/25 03/16/25 04:51 11:48 19:30 ABG pH 7.46 H 7.22 L D 7.38 D ABG pCO2 29 L 66 H D 48 D ABG pO2 78 L 79 L 236 H D ABG HCO3 21 27 H 29 H ABG O2 Saturation 96 91 100 H ABG Base Excess -2 -2 3 VBG pH VBG pCO2 VBG pO2 VBG Base Excess 03/17/25 03/18/25 03/19/25 04:53 09:27 04:46 ABG pH 7.38 7.35 ABG pCO2 49 H 48 ABG pO2 78 L D 92 ABG HCO3 29 H 26 ABG O2 Saturation 95 98 ABG Base Excess 3 0 VBG pH 7.34 VBG pCO2 54 D VBG pO2 34 VBG Base Excess 2 03/24/25 04/01/25 04/01/25 22:00 04:53 15:50 ABG pH 7.33 L 7.23 L ABG pCO2 48 62 H ABG pO2 233 H 102 ABG HCO3 25 26 ABG O2 Saturation 101 H 98 ABG Base Excess -1 -2 VBG pH 7.24 L VBG pCO2 57 H VBG pO2 51 VBG Base Excess -3 04/01/25 04/02/25 04/03/25 18:40 04:45 05:17 ABG pH 7.24 L 7.24 L 7.31 L ABG pCO2 61 H 59 H 56 H ABG pO2 207 H D 203 H 123 H D ABG HCO3 26 25 28 H ABG O2 Saturation 101 H 101 H 100 H ABG Base Excess -2 -3 2 VBG pH VBG pCO2 VBG pO2 VBG Base Excess 04/04/25 05:02 ABG pH 7.33 L ABG pCO2 51 H ABG pO2 114 H ABG HCO3 27 H ABG O2 Saturation 100 H ABG Base Excess 1 VBG pH VBG pCO2 VBG pO2 VBG Base Excess Quality Measures Quality Measures VTE prophylaxis Assessment & Plan Assessment Current Active Medications: Generic Name Dose Route Start Last Admin Trade Name Freq PRN Reason Stop Dose Admin Acetaminophen 650 mg 03/20/25 11:35 03/21/25 06:39 Acetaminophen 325 Mg Tablet PO 04/19/25 11:34 650 mg Q6HR PRN Administration pain and Fever >100.4 Protocol Hydrocodone Bitart/Acetaminophen 1 tab 04/09/25 17:13 04/10/25 07:44 Hydrocodone/Apap 10/325 Tab PO 04/14/25 17:12 1 tab Q6HR PRN Administration PAIN 4-10 Amiodarone HCl 200 mg 04/05/25 09:00 04/10/25 12:08 Amiodarone Hcl 200 Mg Tablet PO 05/05/25 08:59 200 mg BID MON[place]ERRAT Administration Apixaban 2.5 mg 04/08/25 10:15 04/10/25 12:06 Apixaban 2.5 Mg Tablet PO 05/08/25 10:14 2.5 mg BID [place] Administration Artificial Tears 0 drop 04/04/25 21:37 04/04/25 21:53 Artificial Tears 225 Drop/15 Ml Btl BOTH EYES 05/04/25 21:36 2 drop PRN PRN Administration TO KEEP EYES MOIST Aspirin 81 mg 04/03/25 12:00 04/10/25 12:05 Aspirin Ec 81 Mg Tabec PO 05/03/25 11:59 81 mg QDAY [place] Administration Heparin Sodium (Porcine) 3,800 unit 03/30/25 08:26 04/10/25 13:32 Heparin Sod Inj 1000 Unit/Ml Vial 10 Ml INDWELLCAT 04/13/25 08:25 3,800 unit PRN PRN Administration DIALYSIS Hydromorphone HCl 0.5 mg 04/10/25 08:36 04/10/25 15:30 Hydromorphone Inj 2 Mg/Ml Vial IVP 04/15/25 08:35 0.5 mg Q4HR PRN Administration Breakthrough Pain Albumin Human 25 gm in 100 mls @ 100 mls/hr 04/01/25 07:37 04/02/25 09:00 Albuminar-25 Ivpb IV Infused PRN PRN Infusion DIALYSIS Levalbuterol HCl 0.31 mg 03/28/25 10:24 03/31/25 00:37 Levalbuterol Rt 0.31 Mg/3 Ml Nebu INH 04/19/25 12:14 0.31 mg Q6HRRT PRN Administration Wheezing Morphine Sulfate 15 mg 04/10/25 12:00 04/10/25 12:08 Morphine Sulf 15 Mg Tabcr PO 04/15/25 11:59 15 mg TID MONTSERRAT Administration Protocol Ondansetron HCl 4 mg 03/14/25 17:31 03/30/25 01:39 Ondansetron Inj 2 Mg/Ml Inj 2 Ml IV 04/13/25 17:30 4 mg Q6H PRN Administration NAUSEA OR VOMITING Protocol Pantoprazole Sodium 40 mg 04/08/25 09:00 04/10/25 12:04 Pantoprazole 40 Mg Tablet PO 05/08/25 08:59 40 mg QDAY [place] Administration Sevelamer Carbonate 800 mg 04/03/25 12:00 04/10/25 17:21 Sevelamer Carbonate 800 Mg Tablet PO 05/03/25 11:59 800 mg TIDWM [place] Administration Sodium Chloride 3 ml 03/31/25 06:26 Sodium Cl Rt Marjorie 3% 4 Ml Nebu (Non-Formulary) INH 04/16/25 18:59 Q6HRRT PRN To induce cough Zolpidem Tartrate 5 mg 04/10/25 21:00 Zolpidem 5 Mg Tablet PO 05/10/25 20:59 HS MON[place]ERRAT Plan Assessment and Plan: Summary: Mr. Mcclain is a 49 years old male with PMH of DM2, hypertension, ESRD (HD ), HFpEF (EF 55% on 2021), and right BKA due to osteomyelitis BIBA to the ED due to AMS, was intubated and started on pressors and was admitted to the ICU on 03/14/2025 for management of shock of unknown etiology and was started on IV antibiotics. On 03/17 his sputum culture grew stenotrophomonas maltophilia and antibiotics were changed to levofloxacin. He was extubated and downgraded to telemetry on 03/20/2025 for continuation of care. # End-stage renal disease Patient received CRRT in intensive care unit, was transition to hemodialysis. Patient will need a line holiday and placement of due to underlying bacteremia. Primary team to hold aspirin and Plavix, catheter will be exchanged in a.m. possibly Patient received permanent tunneled dialysis catheter placement on 03/26/2025. Plan: - Continue with hemodialysis inpatient - Patient will need hemodialysis 3 times a week post-discharge - Avoid nephrotoxic agent - Renally dose medications. #Status post acute non-ST segment elevation myocardial infarction, NSTEMI possible type 2 troponin versus NSTEMI. #SVT episodes. #Afib, rate controlled. #Decompensated HFpEF (EF 45-50%). #Extensive atherosclerotic cardiovascular disease with bilateral femoral artery occlusions and distal trifurcation disease with gangrenous changes, ruled out. #Vasopressor-induced vasoconstriction and gangrene of B/L fingers, sequelae. #Left foot gangrene, s/p BKA. #Staph hemolyticus bacteremia. #Septic shock, resolved. #Acute hypoxic respiratory failure. #Community-acquired pneumonia, Stenotrophomonas maltophilia. #History of type 2 diabetes. #Respiratory acidosis, resolved. #HAGMA, resolved. #Lactic acidosis, resolved. #Hyperkalemia, resolved. #Shock liver, resolved. #Possible GI bleed. #Macrocytic anemia. #Thrombocytopenia. #Hematemesis, resolved. #Hypoglycemia, resolved. -Management as per primary team Case discussed with Attending Dr. Pleitez. Marycarmen Clark PGY1 Disclaimer: This note was dictated by speech recognition. Minor errors in vulcanizer rubber plate may be present due to voice recognition software. Attending Provider Attestation/Addendum Pt is seen and examined. Labs are reviewed. agree with assessment and plan by resident. Héctor Pleitez MD
[2025-04-10] MEDS: ZOLPIDEM 5 MG TABLET PO (20:34)
[2025-04-11] VITALS (13 sets, daily range): BP systolic 104–132; BP diastolic 56–72; PULSE 64–88; RESP 12–16; TEMP 36–36.6; O2SAT 94–100; BMI 36.6
--- NOTE | 2025-04-11 00:37 | ESPR_ITS ---
RE: CLEMENTE PERAZA : 1975 DATE OF SERVICE: 10/04/2025 SUBJECTIVE: The patient is a 49-year-old male who was admitted to the hospital initially with hypotension and shock several days ago with hypovascular process developed. The patient did have acute myocardial infarction, non-ST segment elevation, NSTEMI, negative coronary angiogram, also was on vasopressor for several days, acute on chronic kidney disease, chronic kidney disease stage IV, now on hemodialysis. Developed gangrene of the left foot and underwent amputation. Also phalanges on the right hand showed severe gangrenous changes. The patient's congestive heart failure improved significantly. He is still on dialysis and followed by nephrology. Clinically still stable. The patient has atrial fibrillation, rate controlled well. OBJECTIVE: Vital Signs: Blood pressure 132/72; pulse rate is 70, irregular; respirations 18; temperature normal; pulse oximetry is 99% on 2 L nasal cannula. HEENT: Head is atraumatic. Neck: Supple. No JVD. Chest: Symmetrical. Lungs: Clear. Heart: S1, S2 regular. No gallops. Abdomen: Thin and soft. Extremities: Evidence of left lower extremity amputation as well as right phalanges still show evidence of necrotic changes. LABORATORY DATA: Reviewed, showed evidence of hemoglobin of 7.1, stable; hematocrit is 23; white count normal at 8.5. Creatinine 5.1 on dialysis. IMPRESSION/ASSESSMENT: 1. End-stage renal disease, on dialysis. 2. Acute [id number] elevation myocardial infarction, NSTEMI type 2 troponin with negative coronary angiogram. 3. Episodes of atrial fibrillation, rate controlled. 4. Congestive heart failure, well compensated. Mild left ventricular dysfunction. 5. Extensive gangrene of the right hand due to vasopressors with no occlusion. 6. Status post [id number] amputation. 7. Diabetes mellitus. RECOMMENDATIONS: Continue medical management. The patient is awaiting discharge and cardiac-guillen quite stable. All the medications reviewed unchanged. Continues to give amiodarone for AFib, rate control; apixaban 2.5 b.i.d. and low-dose aspirin. DT: 23:34:03 TT: 23:58:00 Ref: [id number] - TID: [id number]
[2025-04-11] MEDS: HYDROmorphone INJ 2 MG/ML VIAL 0.5 MG IVP (03:39)
[2025-04-11] MEDS: Morphine Sulf 15 MG TABCR PO ×3 (05:49→21:00)
[2025-04-11 06:06] LABS: Basophils % (Auto) 0 % (0-2.5); Eosinophils # (Auto) 0.4 Thou/mm3 (0.0-0.5); Eosinophils % (Auto) 5 % (0-10); Hematocrit 24.3 % (41.0-53.0); Immature Granulocytes % (Auto) 4 % (0-0); Immature Granulocytes Auto 0.33 Thou/mm3 (0.00-0.00); Lymphocytes # (Auto) 0.9 Thou/mm3 (1.0-4.8); Lymphocytes % (Auto) 12 % (10-50); Mean Corpuscular HGB Conc 30.5 g/dl (31.0-37.0); Mean Corpuscular Hemoglobin 31.8 pg (25.0-35.0); Mean Corpuscular Volume 104 fL (80-100); Monocytes # (Auto) 0.8 Thou/mm3 (0.0-0.8); Monocytes % (Auto) 11 % (0-12); Neutrophils # (Auto) 5.1 Thou/mm3 (1.8-7.7); Neutrophils % (Auto) 67 % (37-80); Nucleated Red Blood Cell % 0 /100 WBC (0); Platelet Count 121 Thou/mm3 (140-440); RDW Standard Deviation 69.9 fL (35.1-43.9); Red Blood Count 2.33 Miln/mm3 (4.50-5.90); White Blood Count 7.7 Thou/mm3 (3.8-10.6)
[2025-04-11 06:17] LABS: Hemoglobin 7.4 g/dL (13.5-16.0)
--- NOTE | 2025-04-11 06:17 | PD.RESPRO ---
Documentation for date of: 04/11/25 Subjective Subjective Interval history: Patient was seen and examined at bedside this morning. No acute overnight events. Patient swelling still no improvement. His pain is more well-controlled today, but yesterday he got multiple dose of Dilaudid as he did not get his morning morphine dose due to being in HD. Will see if pain is better controlled with morphine TID and norco. Not able to urinate yesterday. No other complaints at this time. Still pending insurance authorization for placement. Discontinued Dilaudid in preparation for possible discharge and went up to morphine TID. Exam Vital Signs Temp Pulse Resp BP Pulse Ox O2 Del Method O2 Flow Rate 97.0 F 73 13 126/63 100 Nasal Cannula 3 04/11/25 04:00 04/11/25 04:00 04/11/25 04:00 04/11/25 04:00 04/11/25 04:00 04/11/25 04:00 04/11/25 04:00 FiO2 50 04/11/25 00:00 Narrative Exam General: AO x 3, no acute distress Eyes: Pupils reactive to light, EOMI, vision intact Ears: No visible ear discharge Nose: No visible nasal discharge. Mouth/Throat: Moist mucous membranes, no redness, no lesions. Neck: Neck supple, no cervical lymphadenopathy. Lungs: Clear CHRISTIANO Cardio: Normal S1/S2, irregular, no murmurs, no JVD Abdomen: Soft, non-tender, no palpable masses, peristalsis present, no guarding or rebound Extremities: Right BKA with cyanotic changes which have slightly improved, left distal leg amputation above ankle level with clean dressing, right upper extremity digits show necrotic changes at the tips and extending proximally, swelling CHRISTIANO LE upto low abdomen : scrotal swelling without any palpable masses Skin: Right upper extremity digits show necrotic changes at the tips Neuro: No focal neurological deficits, motor and sensory intact Objective Labs 04/11/25 05:40 04/11/25 05:40 Labs: Laboratory Results - last 24 hr 04/10/25 06:15 WBC 8.5 RBC 2.27 L Hgb 7.1 L Hct 23.3 L MCV 103 H MCH 31.3 MCHC 30.5 L RDW Std Deviation 69.4 H Plt Count 132 L Neut % (Auto) 68 Lymph % (Auto) 11 [place] % (Auto) 11 Eos % (Auto) 5 Baso % (Auto) 0 Neut # (Auto) 5.8 Lymph # (Auto) 0.9 L [place] # (Auto) 0.9 H Eos # (Auto) 0.4 Baso # (Auto) 0.0 Immature Gran # (Auto) 0.43 H Absolute Nucleated RBC 0.00 Immature Gran % 5 H Nucleated RBC % 0 Sodium 137 Potassium 4.6 Chloride 100 Carbon Dioxide 27.6 Anion Gap 9 BUN 42 H Creatinine 5.1 H* D Estim Creat Clear Calc 23.5 L eGFR 13 L* BUN/Creatinine Ratio 8 L Glucose 86 Calculated Osmolality 283 Calcium 7.9 L Corrected Calcium 8.6 Phosphorus 6.8 H Magnesium 2.3 Total Bilirubin 0.5 AST 11 ALT 11 Alkaline Phosphatase 78 Total Protein 6.0 Albumin 3.1 L Globulin 2.9 Albumin/Globulin Ratio 1.1 L ABG Interpretation ABG results: 03/14/25 03/14/25 03/14/25 14:44 16:44 18:53 ABG pH 7.03 L* 7.04 L* 7.10 L* ABG pCO2 43 50 H 46 ABG pO2 86 128 H D 57 L* D ABG HCO3 11 L 13 L 14 L ABG O2 Saturation 91 97 78 L ABG Base Excess -19 L -17 L -15 L VBG pH VBG pCO2 VBG pO2 VBG Base Excess 03/14/25 03/15/25 03/15/25 21:20 05:07 12:28 ABG pH 7.21 L D 7.41 D ABG pCO2 32 D 31 L ABG pO2 116 H D 74 L D ABG HCO3 13 L 20 ABG O2 Saturation 97 95 ABG Base Excess -14 L -4 L VBG pH 7.43 VBG pCO2 34 L VBG pO2 37 VBG Base Excess -1 03/16/25 03/16/25 03/16/25 04:51 11:48 19:30 ABG pH 7.46 H 7.22 L D 7.38 D ABG pCO2 29 L 66 H D 48 D ABG pO2 78 L 79 L 236 H D ABG HCO3 21 27 H 29 H ABG O2 Saturation 96 91 100 H ABG Base Excess -2 -2 3 VBG pH VBG pCO2 VBG pO2 VBG Base Excess 03/17/25 03/18/25 03/19/25 04:53 09:27 04:46 ABG pH 7.38 7.35 ABG pCO2 49 H 48 ABG pO2 78 L D 92 ABG HCO3 29 H 26 ABG O2 Saturation 95 98 ABG Base Excess 3 0 VBG pH 7.34 VBG pCO2 54 D VBG pO2 34 VBG Base Excess 2 03/24/25 04/01/25 04/01/25 22:00 04:53 15:50 ABG pH 7.33 L 7.23 L ABG pCO2 48 62 H ABG pO2 233 H 102 ABG HCO3 25 26 ABG O2 Saturation 101 H 98 ABG Base Excess -1 -2 VBG pH 7.24 L VBG pCO2 57 H VBG pO2 51 VBG Base Excess -3 04/01/25 04/02/25 04/03/25 18:40 04:45 05:17 ABG pH 7.24 L 7.24 L 7.31 L ABG pCO2 61 H 59 H 56 H ABG pO2 207 H D 203 H 123 H D ABG HCO3 26 25 28 H ABG O2 Saturation 101 H 101 H 100 H ABG Base Excess -2 -3 2 VBG pH VBG pCO2 VBG pO2 VBG Base Excess 04/04/25 05:02 ABG pH 7.33 L ABG pCO2 51 H ABG pO2 114 H ABG HCO3 27 H ABG O2 Saturation 100 H ABG Base Excess 1 VBG pH VBG pCO2 VBG pO2 VBG Base Excess Quality Measures Quality Measures VTE prophylaxis Assessment & Plan Assessment Current Active Medications: Generic Name Dose Route Start Last Admin Trade Name Freq PRN Reason Stop Dose Admin Acetaminophen 650 mg 03/20/25 11:35 03/21/25 06:39 Acetaminophen 325 Mg Tablet PO 04/19/25 11:34 650 mg Q6HR PRN Administration pain and Fever >100.4 Protocol Hydrocodone Bitart/Acetaminophen 1 tab 04/09/25 17:13 04/10/25 07:44 Hydrocodone/Apap 10/325 Tab PO 04/14/25 17:12 1 tab Q6HR PRN Administration PAIN 4-10 Amiodarone HCl 200 mg 04/05/25 09:00 04/10/25 20:33 Amiodarone Hcl 200 Mg Tablet PO 05/05/25 08:59 200 mg BID MONTSERRAT Administration Apixaban 2.5 mg 04/08/25 10:15 04/10/25 20:34 Apixaban 2.5 Mg Tablet PO 05/08/25 10:14 2.5 mg BID MONTSERRAT Administration Artificial Tears 0 drop 04/04/25 21:37 04/04/25 21:53 Artificial Tears 225 Drop/15 Ml Btl BOTH EYES 05/04/25 21:36 2 drop PRN PRN Administration TO KEEP EYES MOIST Aspirin 81 mg 04/03/25 12:00 04/10/25 12:05 Aspirin Ec 81 Mg Tabec PO 05/03/25 11:59 81 mg QDAY MON[place]ERRAT Administration Heparin Sodium (Porcine) 3,800 unit 03/30/25 08:26 04/10/25 13:32 Heparin Sod Inj 1000 Unit/Ml Vial 10 Ml INDWELLCAT 04/13/25 08:25 3,800 unit PRN PRN Administration DIALYSIS Hydromorphone HCl 0.5 mg 04/10/25 08:36 04/11/25 03:39 Hydromorphone Inj 2 Mg/Ml Vial IVP 04/15/25 08:35 0.5 mg Q4HR PRN Administration Breakthrough Pain Albumin Human 25 gm in 100 mls @ 100 mls/hr 04/01/25 07:37 04/02/25 09:00 Albuminar-25 Ivpb IV Infused PRN PRN Infusion DIALYSIS Levalbuterol HCl 0.31 mg 03/28/25 10:24 03/31/25 00:37 Levalbuterol Rt 0.31 Mg/3 Ml Nebu INH 04/19/25 12:14 0.31 mg Q6HRRT PRN Administration Wheezing Morphine Sulfate 15 mg 04/10/25 12:00 04/11/25 05:49 Morphine Sulf 15 Mg Tabcr PO 04/15/25 11:59 15 mg TID MONTSERRAT Administration Protocol Ondansetron HCl 4 mg 03/14/25 17:31 03/30/25 01:39 Ondansetron Inj 2 Mg/Ml Inj 2 Ml IV 04/13/25 17:30 4 mg Q6H PRN Administration NAUSEA OR VOMITING Protocol Pantoprazole Sodium 40 mg 04/08/25 09:00 04/10/25 12:04 Pantoprazole 40 Mg Tablet PO 05/08/25 08:59 40 mg QDAY MONTSERRAT Administration Sevelamer Carbonate 800 mg 04/03/25 12:00 04/10/25 17:21 Sevelamer Carbonate 800 Mg Tablet PO 05/03/25 11:59 800 mg TIDWM MONTSERRAT Administration Sodium Chloride 3 ml 03/31/25 06:26 Sodium Cl Rt Marjorie 3% 4 Ml Nebu (Non-Formulary) INH 04/16/25 18:59 Q6HRRT PRN To induce cough Zolpidem Tartrate 5 mg 04/10/25 21:00 04/10/25 20:34 Zolpidem 5 Mg Tablet PO 05/10/25 20:59 5 mg HS MONTSERRAT Administration Plan 49-year-old male with past medical history of DM2, hypertension, ESRD (HD /), HFpEF (EF 55% on 2021), and right BKA due to osteomyelitis was admitted to the ICU on 03/14/2025 for acute hypoxic respiratory failure, acute encephalopathy, and shock. He was extubated and downgraded to telemetry on 03/20/2025. #Scrotal swelling, improving Patient today complained of scrotal swelling Could be do to fluid overload status less likely due to torsion or hernia Plan: Testicular US showed no torsion nor masses Bumex 1mg x1 again today and scrotal elevation #Right ulnar artery occlusion #Right upper extremity multiple digit necrosis #Left lower extremity gangrene/tissue necrosis s/p guillotine amputation distal #Peripheral Vascular disease, severe Abdomen CTA with runoff that showed occlusion of multiple arteries including the left radial, gluteal, and tibial arteries as well as 90% stenosis of the left superficial femoral artery Also showed 80% stenosis of right superficial femoral artery. Patient had his angiogram done yesterday showed right ulnar artery to be totally occluded or absent and there was no CAD. 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 Patient again went into SVT and received adenosine 6mg x1 and adenosine 12mg x1 before being cardioverted. Repeat EKG showed what appears to be MAT. [id number] score of 3 points indicating 3.2% risk of stroke per year HAS-BLED score of 5 points Patient had his angiogram done 03/31/2025 showed right ulnar artery to be totally occluded or absent and there was no CAD. Cardiology recommended to stop patient's aspirin, Plavix, metoprolol, and statin Patient had a rapid response called on 04/01/2025 was tachycardic in the 140s and EKG looked to be like a SVT. Patient was cardioverted and was then in the heart rates in the 60s. Plan: Continue amiodarone 200 mg twice daily Continue Eliquis 2.5 mg BID Keep Potassium >4 and Mg >2 [employer] consulted, appreciate recommendations #HFpEF (EF 50-55% on 2024). Echo on 03/16/2025 showed EF of 45 to 50% and septal dyskinesis. Echo on 03/23/2025 shows some improvement and left ventricle function with an EF of 50 to 55% Plan: Will continue with hemodialysis with fluid removal. Daily weights. Strict JENN's. fluid restriction. #ESRD (HD on ). Patient was on hemodialysis and had AV fistula, but was clotted therefore cannot be used. Tunnedled dialysis cath placed 03/26/2025 Plan: Continue hemodialysis as scheduled. Continue sevelamer 800 mg 3 times daily Director Embalmer Dr. Pleitez following, appreciate recommendations Avoid nephrotoxic agents. Renally dose medications. #Macrocytic anemia. #Thrombocytopenia, improving Patient's hemoglobin was downtrending from 11.9 on admission Hemoglobin 7.4 and platelets 121 No active signs of bleeding Plan: Continue to monitor daily CBC Transfuse if Hgb less than 7. #Transaminitis, resolved #Hepatomegaly. Hepatitis panel negative and abdominal ultrasound that shows some hepatomegaly with possible cirrhosis versus hepatocellular disease. Plan: Continue monitoring daily labs #Hx of DM2. A1c 5.4 No need for ISS #Acute Hypoxic resp failure in the setting of Left base PNA, improving #Stenotrophomonas maltophilia pneumonia, resolved . #Respiratory acidosis, resolved. #Septic shock, resolved. #Troponinemia, resolved #Hematemesis, resolved #HAGMA, resolved. #Lactic acidosis, resolved. #Staph Hemolyticus bacteremia, resolved (finished course of vancomycin 03/23-04/05) #CLABSI, resolved #Hyperbilirubinemia, resolved Hospital Maintenance: Disposition: Pending insurance auth Diet: renal DVT ppx: Heparin 5000 SC Q12H GI ppx: Protonix . Code status: DNR. Case disclosed with Attending Dr. Amrit Lee PGY1 Disclaimer: This note was dictated by speech recognition and even though it was carefully revised there may still be minor errors in television announcer due to voice recognition software. Attending Provider Attestation/Addendum I reviewed labs, imaging, EKG, home medications and prior available records. Face to face evaluation was performed by me. I have personally examined the patient and discussed assessment and plan with the IM team. I reviewed the resident note and agree with the plan with exceptions as below. Acute encephalopathy, resolved Acute hypoxic respiratory failure, status post intubation, s/p extubation ESRD on hemodialysis HFrEF EF 45 to 50% Atrial fibrillation with controlled ventricular rhythm PAD Gangrene of toes and fingers, in the setting of severe PAD in the vasopressors Non-STEMI Clotting of dialysis fistula Leukocytosis, improved Patient had a scrotal swelling. Ordered testicular ultrasound: Negative. Continue fluid management via hemodialysis Added Ambien for insomnia Status post guillotine left foot amputation on 04/01 Finished daptomycin and Zosyn on 04/08 Status post cardiac catheterization that showed nonobstructive CAD Status post angiogram that showed severe PAD with occlusions. Continue pain management orally with p.o. morphine and p.o. [place] as needed Status post permacath on 03/26 Outpatient follow-up with vascular surgery for the clotted fistula Monitor H&H: Stable Started diltiazem for the A-fib. Continue Eliquis 2.5 mg twice daily Continue aspirin Continue hemodialysis per nephrology recommendations PT recommended SNF. He is not on hospice. Pending authorization for the placement
[2025-04-11 06:46] LABS: Alanine Aminotransferase 10 U/L (10-49); Albumin, Serum 3.1 gm/dL (3.5-5.0); Alkaline Phosphatase 82 U/L (46-116); Anion Gap 10 (7-16); Aspartate Amino Transferase 12 U/L (0-34); BUN/Creatinine Ratio 7 Ratio (12-20); Bilirubin,Total 0.5 mg/dL (0.3-1.2); Blood Urea Nitrogen 31 mg/dL (9-23); Calcium 8.2 mg/dL (8.3-10.6); Calcium (Corrected) 8.9 mg/dL (8.5-10.1); Carbon Dioxide 27.8 mMol/L (20.0-31.0); Chloride 99 mMol/L (98-107); Creatinine (Component) 4.6 mg/dL (0.6-1.3); Estimated Creatinine Clearance 26.1 mL/min (>60); Glucose 85 mg/dL (74-106); Magnesium 2.2 mg/dL (1.6-2.6); Osmolality,Calculated 279 (275-295); Potassium 4.4 mMol/L (3.4-5.1); Sodium 137 mMol/L (136-145); Total Protein 6.1 gm/dL (5.7-8.2); eGFR 15 See Note
[2025-04-11] MEDS: APIXABAN 2.5 MG TABLET PO ×2 (07:17→20:55)
[2025-04-11] MEDS: PANTOPRAZOLE 40 MG TABLET PO (07:17)
[2025-04-11] MEDS: ASPIRIN EC 81 MG TABEC PO ×2 (07:17)
[2025-04-11] MEDS: SEVELAMER CARBONATE 800 MG TABLET PO ×3 (07:17→17:24)
[2025-04-11] MEDS: AMIODARONE HCL 200 MG TABLET PO ×2 (07:19→20:55)
[2025-04-11] MEDS: BUMETANIDE INJ 0.25 MG/ML VIAL 4 ML 1 MG IVP (07:42)
[2025-04-11] MEDS: HYDROcodone/APAP 10/325 TAB PO ×4 (08:36→23:45)
--- NOTE | 2025-04-11 09:11 | PD.RESPRO ---
Documentation for date of: Subjective Subjective Interval history: Mr. Mcclain is a 49-year-old male with past medical history of type 2 diabetes mellitus, hypertension, end-stage renal disease (HD ), HFpEF (EF 50 to 55% 02/2025) and right BKA due to osteomyelitis who was brought in by ambulance to [facility] emergency department on 03/14/2025 with a chief complaint of altered mental status. Patient was intubated secondary to inability to protect airway. On presentation patient's assisted with procuring history, per patient's patient had progressive shortness of breath and had change in mentation, patient was found to be in SVT when EMS arrived was shocked once and was converted to sinus rhythm. Patient also had to get additional sessions of hemodialysis due to increase in weight, last session of hemodialysis before admission to the hospital was on 12 March 2025. Patient also does have history of methamphetamine use, urine tox screen was positive for methamphetamine and marijuana on presentation. With the progression of hospital course patient was initially managed in the intensive care unit for acute hypoxic respiratory failure was found to have stenotrophomonas maltophilia pneumonia was treated with IV antibiotics, had significant lactic acidosis respiratory acidosis and high anion gap metabolic acidosis which improved in ICU patient did require CRRT and was eventually transition to hemodialysis, patient was eventually extubated on downgraded to telemetry on 03/20/2025. Patient's hospital stay is further complicated with possible acute versus chronic limb ischemia and underlying severe peripheral vascular disease, tape cutting machine operator discussed case with vascular surgeon at [facility] during the hospitalization, patient was a poor candidate for revascularization per documentation. Patient started on amiodarone for underlying atrial fibrillation and eventually infectious disease consulted for Staph haemolyticus bacteremia possible CLABSI. Patient continue to receive inpatient hemodialysis. 03/25/2025: Patient successfully completed 3 hours 4 minutes of dialysis session today, postdialysis weight 115.9 kg was hypotensive at times during the dialysis, tolerated dialysis well through the temporary dialysis catheter. Net fluid removed 0.5 L. Blood pressure was soft, received 2 bags of albumin during the dialysis session.Patient will need permanent dialysis catheter placement, will be scheduled with interventional radiology in a.m. after holding aspirin and Plavix. Patient will be made n.p.o. after midnight by primary team. 03/26/2025: Patient seen and examined at bedside, patient had permanent tunneled dialysis catheter placed today. Currently complains of some back pain. Patient will continue to receive IV antibiotics until 04/05/2025 with hemodialysis. Otherwise patient is stable, has no current complaints. Anticipate discharge in next 24 hours on supplemental oxygen. 03/27/2025:Patient received dialysis treatment today, completed about 2 hours of dialysis session, about 1.1 L fluid removed, postdialysis weight 115 kg, was administered 100 mL albumin during the dialysis session for low blood pressure, patient did receive alteplase through the indwelling catheter x 1. Primary team discussed the case with patient and patient's family, patient has been requiring an extensive amount of IV pain medication, further plan by primary team is to discharge patient to [facility] facility and not on hospice as patient does not have underlying clear etiology for hospice. Patient's DAPT being held, cardiology following the case and patient may undergo angiogram heart, bilateral upper and lower extremities on Saturday. 03/28/2025: Patient continues to complain of pain, patient's gabapentin changed to pregabalin 25 twice daily and [place] was increased to 7.5 mg. Patient Aspirin and Plavix being held, patient going to undergo cardiac angiogram and angiogram upper and lower extremities likely in the morning. Will coordinate with cardiology. 03/29/2025: Labs and Vitals reviewed. Patient scheduled for Procedure with Cardiology Today, will plan for dialysis pot procedure after discussion with Cardiology Team, otherwise patient is stable, has no current complains. Pregabalin dose adjusted by primrary team. 03/30/2025: Patient received dialysis treatment today, received dialysis for 3 hours 6-minute, about 2 L fluid removed, postdialysis weight 112.3, patient was administered 100 mL of albumin during dialysis. Patient had his angiogram done yesterday showed right ulnar artery to be totally occluded or absent and there was no CAD. Cardiology recommended to stop patient's aspirin, Plavix, metoprolol, and statin and they also started the patient on diltiazem. They also recommended to get general surgery for possible amputation and to start Eliquis 2.5 mg twice daily after the patient has surgery. Will consult general surgery for possible amputation. 03/31/2025: Patient seen and examined at bedside, labs and vitals reviewed. Patient received dialysis yesterday, patient is being evaluated by general surgery for possible amputation. Otherwise has no current complaints, reports no new concerns. 04/01/2025: Patient upgraded to ICU earlier this morning, patient had seizure-like episode. Patient was given Ativan 1 mg x 1. Patient later had another rapid response called with heart rate in 140s and SpO2 in low 80s, patient was very lethargic MAP was found to be in the range of 55-64. Patient eventually upgraded to ICU for IV pressors, patient started on phenylephrine in ICU. Patient will receive dialysis today, scheduled for BKA by surgery later today. 04/03/2025: Patient seen and examined at bedside in ICU, patient was started on BANK OPERATIONS OFFICER, for about 12 hours, had about 1 L fluid removed.Patient was weaned off of phenylephrine, currently not requiring any pressors. Patient does have significant right hand pain due to digital necrosis, is on Dilaudid for pain management. Upholstery Repairer team will obtain punch biopsy today of the skin for further analysis. 04/04/2025: Patient seen and examined at bedside, currently in ICU physically, was downgraded to telemetry yesterday. Patient received dialysis treatment today, goal is to remove about 3 L fluid, patient will likely need another session of dialysis tomorrow morning, patient has significant amount of fluid in the body. Otherwise patient is stable, has no current complaints tolerating dialysis well. 04/05/2025: Patient seen and examined at bedside, currently fluid overloaded as well, will plan for another session of dialysis today with goal to remove fluid. Will continue to monitor patient's fluid status post dialysis today, patient is pending orthopedic consult, is on telemetry. Otherwise has no current complaints. 04/06/2025: Patient seen and examined at bedside, patient received dialysis yesterday 2.7 L removed. Patient received consecutive dialysis for the last two days 2.7 L fluid removed. Patient is stable today, will recieve dialysis today as well, will remove fluid around 2-3L. Pending orthopaedic surgeon evaluation. 04/07/2025: Patient seen and examined at bedside patient received 3 consecutive days of dialysis from 04/04-04/06 had about 3 L removed each day, today patient is euvolemic, saturating well on nasal cannula has no current complaints. Patient will be scheduled for dialysis tomorrow. Patient is pending insurance authorization for placement, patient's pain is managed on extended release morphine. 04/08/2025: Patient seen and examined at bedside, patient received dialysis today, patient had a dialysis session for about 3 hours, 2.5 L fluid removed, postdialysis weight 118.5. Patient is pending placement, otherwise pain is well-managed on oral morphine. Will continue inpatient dialysis. 04/09/2025:Patient seen and examined at bedside., Labs and vitals reviewed. Patient's hemoglobin was 6.9 this morning, repeat hemoglobin 7.4, phosphorus 5.9. Will hold hemodialysis for today, patient has no current complaints. Patient will be discharged on hemodialysis 3 times a week. Patient is pending insurance authorization for discharge. Per primary team documentation patient will not need any IV antibiotics on discharge. 04/10/2025: Patient seen and examined at bedside., Labs and vitals reviewed. Has no current complaints. Recieved HD today, 3L fluid removed. Pending Discharge. 04/11/2025: Patient seen and examined at bedside., Labs and vitals reviewed.Complains of pain in his hand. Recieved HD yesterday, had 3 L removed tolerated well. Pending discharge to SNF. Exam Vital Signs Temp Pulse Resp BP Pulse Ox O2 Del Method O2 Flow Rate 97.7 F 68 16 121/69 95 Nasal Cannula 3 04/12/25 08:25 04/12/25 09:00 04/12/25 08:25 04/12/25 09:00 04/12/25 08:25 04/12/25 07:58 04/12/25 08:25 FiO2 50 04/11/25 16:00 Narrative Exam General: AO x 3, no acute distress Eyes: Pupils reactive to light, EOMI, vision intact Ears: No visible ear discharge Nose: No visible nasal discharge. Mouth/Throat: Moist mucous membranes, no redness, no lesions. Neck: Neck supple, no cervical lymphadenopathy. Lungs: Clear CHRISTIANO Cardio: Normal S1/S2, irregular, no murmurs, no JVD Abdomen: Soft, non-tender, no palpable masses, peristalsis present, no guarding or rebound Extremities: Right BKA with cyanotic changes which have slightly improved, left distal leg amputation above ankle level with clean dressing, right upper extremity digits show necrotic changes at the tips and extending proximally, swelling CHRISTIANO LE upto low abdomen : scrotal swelling without any palpable masses Skin: Right upper extremity digits show necrotic changes at the tips Neuro: No focal neurological deficits, motor and sensory intact Objective Labs 04/16/25 08:15 04/16/25 08:15 Labs: Laboratory Results - last 24 hr 04/03/25 04/12/25 09:50 05:42 WBC 8.4 RBC 2.22 L Hgb 7.0 L Hct 22.9 L MCV 103 H MCH 31.5 MCHC 30.6 L RDW Std Deviation 67.6 H Plt Count 111 L Neut % (Auto) 70 Lymph % (Auto) 11 [place] % (Auto) 11 Eos % (Auto) 5 Baso % (Auto) 0 Neut # (Auto) 5.9 Lymph # (Auto) 1.0 [place] # (Auto) 0.9 H Eos # (Auto) 0.4 Baso # (Auto) 0.0 Immature Gran # (Auto) 0.23 H Absolute Nucleated RBC 0.00 Immature Gran % 3 H Nucleated RBC % 0 Sodium 134 L Potassium 4.8 Chloride 96 L Carbon Dioxide 28.8 Anion Gap 9 BUN 38 H Creatinine 5.3 H* D Estim Creat Clear Calc 22.6 L eGFR 12 L* BUN/Creatinine Ratio 7 L Glucose 87 Calculated Osmolality 276 Calcium 8.2 L Corrected Calcium 8.8 Phosphorus 6.8 H Magnesium 2.3 Total Bilirubin 0.5 AST 12 ALT 9 L Alkaline Phosphatase 84 Total Protein 6.3 Albumin 3.2 L Globulin 3.1 Albumin/Globulin Ratio 1.0 L Vit D 1,25-Dihyd Total <8 L 1,25 Dihydroxy Vit D2 <8 1,25 Dihydroxy Vit D3 <8 ABG Interpretation ABG results: 03/14/25 03/14/25 03/14/25 14:44 16:44 18:53 ABG pH 7.03 L* 7.04 L* 7.10 L* ABG pCO2 43 50 H 46 ABG pO2 86 128 H D 57 L* D ABG HCO3 11 L 13 L 14 L ABG O2 Saturation 91 97 78 L ABG Base Excess -19 L -17 L -15 L VBG pH VBG pCO2 VBG pO2 VBG Base Excess 03/14/25 03/15/25 03/15/25 21:20 05:07 12:28 ABG pH 7.21 L D 7.41 D ABG pCO2 32 D 31 L ABG pO2 116 H D 74 L D ABG HCO3 13 L 20 ABG O2 Saturation 97 95 ABG Base Excess -14 L -4 L VBG pH 7.43 VBG pCO2 34 L VBG pO2 37 VBG Base Excess -1 03/16/25 03/16/25 03/16/25 04:51 11:48 19:30 ABG pH 7.46 H 7.22 L D 7.38 D ABG pCO2 29 L 66 H D 48 D ABG pO2 78 L 79 L 236 H D ABG HCO3 21 27 H 29 H ABG O2 Saturation 96 91 100 H ABG Base Excess -2 -2 3 VBG pH VBG pCO2 VBG pO2 VBG Base Excess 03/17/25 03/18/25 03/19/25 04:53 09:27 04:46 ABG pH 7.38 7.35 ABG pCO2 49 H 48 ABG pO2 78 L D 92 ABG HCO3 29 H 26 ABG O2 Saturation 95 98 ABG Base Excess 3 0 VBG pH 7.34 VBG pCO2 54 D VBG pO2 34 VBG Base Excess 2 03/24/25 04/01/25 04/01/25 22:00 04:53 15:50 ABG pH 7.33 L 7.23 L ABG pCO2 48 62 H ABG pO2 233 H 102 ABG HCO3 25 26 ABG O2 Saturation 101 H 98 ABG Base Excess -1 -2 VBG pH 7.24 L VBG pCO2 57 H VBG pO2 51 VBG Base Excess -3 04/01/25 04/02/25 04/03/25 18:40 04:45 05:17 ABG pH 7.24 L 7.24 L 7.31 L ABG pCO2 61 H 59 H 56 H ABG pO2 207 H D 203 H 123 H D ABG HCO3 26 25 28 H ABG O2 Saturation 101 H 101 H 100 H ABG Base Excess -2 -3 2 VBG pH VBG pCO2 VBG pO2 VBG Base Excess 04/04/25 05:02 ABG pH 7.33 L ABG pCO2 51 H ABG pO2 114 H ABG HCO3 27 H ABG O2 Saturation 100 H ABG Base Excess 1 VBG pH VBG pCO2 VBG pO2 VBG Base Excess Quality Measures Quality Measures VTE prophylaxis Assessment & Plan Assessment Current Active Medications: Generic Name Dose Route Start Last Admin Trade Name Freq PRN Reason Stop Dose Admin Acetaminophen 650 mg 03/20/25 11:35 03/21/25 06:39 Acetaminophen 325 Mg Tablet PO 04/19/25 11:34 650 mg Q6HR PRN Administration pain and Fever >100.4 Protocol Hydrocodone Bitart/Acetaminophen 1 tab 04/12/25 07:25 Hydrocodone/Apap 10/325 Tab PO 04/16/25 12:05 Q6HR PRN PAIN SCALE 4-10(Mod-Sev Amiodarone HCl 200 mg 04/05/25 09:00 04/11/25 20:55 Amiodarone Hcl 200 Mg Tablet PO 05/05/25 08:59 200 mg BID MONTSERRAT Administration Apixaban 2.5 mg 04/08/25 10:15 04/11/25 20:55 Apixaban 2.5 Mg Tablet PO 05/08/25 10:14 2.5 mg BID MONTSERRAT Administration Artificial Tears 0 drop 04/04/25 21:37 04/04/25 21:53 Artificial Tears 225 Drop/15 Ml Btl BOTH EYES 05/04/25 21:36 2 drop PRN PRN Administration TO KEEP EYES MOIST Aspirin 81 mg 04/03/25 12:00 04/11/25 07:17 Aspirin Ec 81 Mg Tabec PO 05/03/25 11:59 81 mg QDAY MONTSERRAT Administration Heparin Sodium (Porcine) 3,800 unit 03/30/25 08:26 04/10/25 13:32 Heparin Sod Inj 1000 Unit/Ml Vial 10 Ml INDWELLCAT 04/13/25 08:25 3,800 unit PRN PRN Administration DIALYSIS Albumin Human 25 gm in 100 mls @ 100 mls/hr 04/01/25 07:37 04/02/25 09:00 Albuminar-25 Ivpb IV Infused PRN PRN Infusion DIALYSIS Levalbuterol HCl 0.31 mg 03/28/25 10:24 03/31/25 00:37 Levalbuterol Rt 0.31 Mg/3 Ml Nebu INH 04/19/25 12:14 0.31 mg Q6HRRT PRN Administration Wheezing Morphine Sulfate 30 mg 04/12/25 14:00 Morphine Sulf 15 Mg Tabcr PO 04/17/25 13:59 TID MONTSERRAT Protocol Ondansetron HCl 4 mg 03/14/25 17:31 03/30/25 01:39 Ondansetron Inj 2 Mg/Ml Inj 2 Ml IV 04/13/25 17:30 4 mg Q6H PRN Administration NAUSEA OR VOMITING Protocol Pantoprazole Sodium 40 mg 04/08/25 09:00 04/11/25 07:17 Pantoprazole 40 Mg Tablet PO 05/08/25 08:59 40 mg QDAY MONTSERRAT Administration Sevelamer Carbonate 800 mg 04/03/25 12:00 04/11/25 17:24 Sevelamer Carbonate 800 Mg Tablet PO 05/03/25 11:59 800 mg TIDWM MONTSERRAT Administration Sodium Chloride 3 ml 03/31/25 06:26 Sodium Cl Rt Marjorie 3% 4 Ml Nebu (Non-Formulary) INH 04/16/25 18:59 Q6HRRT PRN To induce cough Zolpidem Tartrate 5 mg 04/10/25 21:00 04/11/25 20:55 Zolpidem 5 Mg Tablet PO 05/10/25 20:59 5 mg HS MONTSERRAT Administration Plan Assessment and Plan: Summary: Mr. Mcclain is a 49 years old male with PMH of DM2, hypertension, ESRD (HD ), HFpEF (EF 55% on 2021), and right BKA due to osteomyelitis BIBA to the ED due to AMS, was intubated and started on pressors and was admitted to the ICU on 03/14/2025 for management of shock of unknown etiology and was started on IV antibiotics. On 03/17 his sputum culture grew stenotrophomonas maltophilia and antibiotics were changed to levofloxacin. He was extubated and downgraded to telemetry on 03/20/2025 for continuation of care. # End-stage renal disease Patient received CRRT in intensive care unit, was transition to hemodialysis. Patient will need a line holiday and placement of due to underlying bacteremia. Primary team to hold aspirin and Plavix, catheter will be exchanged in a.m. possibly Patient received permanent tunneled dialysis catheter placement on 03/26/2025. Plan: - Continue with hemodialysis inpatient - Patient will need hemodialysis 3 times a week post-discharge - Avoid nephrotoxic agent - Renally dose medications. #Status post acute non-ST segment elevation myocardial infarction, NSTEMI possible type 2 troponin versus NSTEMI. #SVT episodes. #Afib, rate controlled. #Decompensated HFpEF (EF 45-50%). #Extensive atherosclerotic cardiovascular disease with bilateral femoral artery occlusions and distal trifurcation disease with gangrenous changes, ruled out. #Vasopressor-induced vasoconstriction and gangrene of B/L fingers, sequelae. #Left foot gangrene, s/p BKA. #Staph hemolyticus bacteremia. #Septic shock, resolved. #Acute hypoxic respiratory failure. #Community-acquired pneumonia, Stenotrophomonas maltophilia. #History of type 2 diabetes. #Respiratory acidosis, resolved. #HAGMA, resolved. #Lactic acidosis, resolved. #Hyperkalemia, resolved. #Shock liver, resolved. #Possible GI bleed. #Macrocytic anemia. #Thrombocytopenia. #Hematemesis, resolved. #Hypoglycemia, resolved. -Management as per primary team Case discussed with Attending Dr. Pleitez. Marycarmen Clark PGY1 Disclaimer: This note was dictated by speech recognition. Minor errors in executive talent acquisition consultant may be present due to voice recognition software. Attending Provider Attestation/Addendum Pt is seen and examined. Labs are reviewed. agree with assessment and plan by resident. Héctor Pleitez MD
--- NOTE | 2025-04-11 16:37 | PC.NURSE ---
[facility] 0900 to 1615.
[2025-04-11] MEDS: ZOLPIDEM 5 MG TABLET PO (20:55)
[2025-04-12] VITALS (28 sets, daily range): BP systolic 95–151; BP diastolic 51–89; PULSE 64–86; RESP 12–19; TEMP 36.1–36.7; O2SAT 91–100; BMI 37.6
--- NOTE | 2025-04-12 01:11 | ESPR_ITS ---
RE: COVERTCLEMENTE : 1975 DATE OF SERVICE: 04/11/2025 SUBJECTIVE: Clemente appears to be doing much better. No chest pain or shortness of breath. He still has a lot of pain in the right hand. The patient had no major issues today. He still complains of a lot of pain, requiring pain medication. He is awaiting transfer. OBJECTIVE: Vital Signs: Blood pressure 120/60. Pulse rate is 70, respirations 16, temperature normal. HEENT: Head is atraumatic, normocephalic. Neck: Supple. No JVD. Chest: Symmetrical. Lungs: Clear. Heart: Sounds regular. No gallops. Abdomen: Thin and soft. Extremities: Mild edema. Right upper extremity right hand showed a lot of ganglion changes. Left lower extremity had amputation successfully, healing well. IMPRESSION: 1. Status post amputation left lower extremity for ganglion. 2. Peripheral arterial occlusion, mostly have distal disease. 3. Non-ST segment elevation myocardial infarction, negative coronary angiogram. 4. Atrial fibrillation rate controlled. 5. HFpEF. 6. End-stage renal disease stage V, on hemodialysis. 7. Anemia. 8. RECOMMENDATIONS: Continue present medical management. He can be discharged to [facility]idential [facility]. Ultimately, he will require some amputation by hand surgeon of phalanges because of gangrenous changes. Hemoglobin remains low but stable at 7.4. The patient is cardiac guillen stable to have any other procedures if indicated by hand surgeon after discharge. DT: 23:20:49 TT: 01:04:00 Ref: [id number] - TID: [id number]
[2025-04-12] MEDS: HYDROcodone/APAP 10/325 TAB PO ×3 (04:02→18:39)
[2025-04-12] MEDS: Morphine Sulf 15 MG TABCR PO (05:59)
[2025-04-12 06:58] LABS: Basophils % (Auto) 0 % (0-2.5); Eosinophils # (Auto) 0.4 Thou/mm3 (0.0-0.5); Eosinophils % (Auto) 5 % (0-10); Hematocrit 22.9 % (41.0-53.0); Immature Granulocytes % (Auto) 3 % (0-0); Immature Granulocytes Auto 0.23 Thou/mm3 (0.00-0.00); Lymphocytes % (Auto) 11 % (10-50); Mean Corpuscular HGB Conc 30.6 g/dl (31.0-37.0); Mean Corpuscular Hemoglobin 31.5 pg (25.0-35.0); Mean Corpuscular Volume 103 fL (80-100); Monocytes # (Auto) 0.9 Thou/mm3 (0.0-0.8); Monocytes % (Auto) 11 % (0-12); Neutrophils # (Auto) 5.9 Thou/mm3 (1.8-7.7); Neutrophils % (Auto) 70 % (37-80); Nucleated Red Blood Cell % 0 /100 WBC (0); Platelet Count 111 Thou/mm3 (140-440); RDW Standard Deviation 67.6 fL (35.1-43.9); Red Blood Count 2.22 Miln/mm3 (4.50-5.90); White Blood Count 8.4 Thou/mm3 (3.8-10.6)
[2025-04-12 07:34] LABS: Vitamin D,1,25 (OH)2,Total <8 pg/mL (18-72); Vitamin D2, 1,25 (OH)2 <8 pg/mL; Vitamin D3, 1,25 (OH)2 <8 pg/mL
[2025-04-12 07:43] LABS: Alanine Aminotransferase 9 U/L (10-49); Albumin, Serum 3.2 gm/dL (3.5-5.0); Alkaline Phosphatase 84 U/L (46-116); Anion Gap 9 (7-16); Aspartate Amino Transferase 12 U/L (0-34); BUN/Creatinine Ratio 7 Ratio (12-20); Bilirubin,Total 0.5 mg/dL (0.3-1.2); Blood Urea Nitrogen 38 mg/dL (9-23); Calcium 8.2 mg/dL (8.3-10.6); Calcium (Corrected) 8.8 mg/dL (8.5-10.1); Carbon Dioxide 28.8 mMol/L (20.0-31.0); Chloride 96 mMol/L (98-107); Creatinine (Component) 5.3 mg/dL (0.6-1.3); Estimated Creatinine Clearance 22.6 mL/min (>60); Globulin 3.1 gm/dL (2.3-3.5); Glucose 87 mg/dL (74-106); Magnesium 2.3 mg/dL (1.6-2.6); Osmolality,Calculated 276 (275-295); Phosphorous 6.8 mg/dL (2.4-5.1); Potassium 4.8 mMol/L (3.4-5.1); Sodium 134 mMol/L (136-145); Total Protein 6.3 gm/dL (5.7-8.2); eGFR 12 See Note
--- NOTE | 2025-04-12 08:31 | PC.SS ---
Addendum entered by Gabriela Garcia 04/12/25 14:58: SS follow up note; SS contacted Dr. Mitchell Sharma at [phone]. He questions SS in regards to obtaining his contact information. SS informed him that his Contact number was provided by [facility] staff, Luma. Dr. Sharma informed SS he would have to investigate patient's referral further more in order to obtain authorization. Dr. Sharma informed SS that they have other Referrals to review and would contact SS. SS provided DR. Sharma with contact number. Addendum entered by Gabriela Garcia 04/12/25 13:34: SS follow up note; SS contacted Luma from [facility] to check status on authorization. Enrrique provided SS with Dr. Mitchell Sharma's contact number [phone]. Dr. Sharma requested for SS to contact him within an hour. SS will follow up again at a later time. SS will stand by for further needs. Addendum entered by Gabriela Garcia 04/12/25 09:45: SS follow up note; SS contacted [facility] and spoke to Luma in regards to obtaining auth, at the time auth was still in clinical review. Luma informed SS that she would email the Dr. Mitchell Sharma to check status and verify if auth was approved. Original Note: SS follow up note; SS attempted to contact Luma from [facility], SS left Voicemail with SS cotact information.
--- NOTE | 2025-04-12 09:47 | ESPR_ITS ---
Documentation for date of: 04/12/25 Subjective Subjective Interval history: Patient was seen and examined at bedside this morning. No acute overnight events. Patient was getting hemodialysis today and stated that his pain was better controlled with the Blodgett. Patient got 5 doses of Blodgett yesterday therefore we will make some adjustment in his pain regimen. Will continue current management. Still pending SNF auth. Exam Vital Signs Temp Pulse Resp BP Pulse Ox O2 Del Method O2 Flow Rate 97.7 F 68 16 111/66 95 Nasal Cannula 3 04/12/25 08:25 04/12/25 09:30 04/12/25 08:25 04/12/25 09:30 04/12/25 08:25 04/12/25 07:58 04/12/25 08:25 FiO2 50 04/11/25 16:00 Narrative Exam General: AO x 3, no acute distress Eyes: Pupils reactive to light, EOMI, vision intact Ears: No visible ear discharge Nose: No visible nasal discharge. Mouth/Throat: Moist mucous membranes, no redness, no lesions. Neck: Neck supple, no cervical lymphadenopathy. Lungs: Clear CHRISTIANO Cardio: Normal S1/S2, irregular, no murmurs, no JVD Abdomen: Soft, non-tender, no palpable masses, peristalsis present, no guarding or rebound Extremities: Right BKA with cyanotic changes which have slightly improved, left distal leg amputation above ankle level with clean dressing, right upper extremity digits show necrotic changes at the tips and extending proximally, swelling CHRISTIANO LE upto low abdomen Skin: Right upper extremity digits show necrotic changes at the tips Neuro: No focal neurological deficits, motor and sensory intact Objective Labs 04/12/25 05:42 04/12/25 05:42 Labs: Laboratory Results - last 24 hr 04/03/25 04/12/25 09:50 05:42 WBC 8.4 RBC 2.22 L Hgb 7.0 L Hct 22.9 L MCV 103 H MCH 31.5 MCHC 30.6 L RDW Std Deviation 67.6 H Plt Count 111 L Neut % (Auto) 70 Lymph % (Auto) 11 [place] % (Auto) 11 Eos % (Auto) 5 Baso % (Auto) 0 Neut # (Auto) 5.9 Lymph # (Auto) 1.0 [place] # (Auto) 0.9 H Eos # (Auto) 0.4 Baso # (Auto) 0.0 Immature Gran # (Auto) 0.23 H Absolute Nucleated RBC 0.00 Immature Gran % 3 H Nucleated RBC % 0 Sodium 134 L Potassium 4.8 Chloride 96 L Carbon Dioxide 28.8 Anion Gap 9 BUN 38 H Creatinine 5.3 H* D Estim Creat Clear Calc 22.6 L eGFR 12 L* BUN/Creatinine Ratio 7 L Glucose 87 Calculated Osmolality 276 Calcium 8.2 L Corrected Calcium 8.8 Phosphorus 6.8 H Magnesium 2.3 Total Bilirubin 0.5 AST 12 ALT 9 L Alkaline Phosphatase 84 Total Protein 6.3 Albumin 3.2 L Globulin 3.1 Albumin/Globulin Ratio 1.0 L Vit D 1,25-Dihyd Total <8 L 1,25 Dihydroxy Vit D2 <8 1,25 Dihydroxy Vit D3 <8 ABG Interpretation ABG results: 03/14/25 03/14/25 03/14/25 14:44 16:44 18:53 ABG pH 7.03 L* 7.04 L* 7.10 L* ABG pCO2 43 50 H 46 ABG pO2 86 128 H D 57 L* D ABG HCO3 11 L 13 L 14 L ABG O2 Saturation 91 97 78 L ABG Base Excess -19 L -17 L -15 L VBG pH VBG pCO2 VBG pO2 VBG Base Excess 03/14/25 03/15/25 03/15/25 21:20 05:07 12:28 ABG pH 7.21 L D 7.41 D ABG pCO2 32 D 31 L ABG pO2 116 H D 74 L D ABG HCO3 13 L 20 ABG O2 Saturation 97 95 ABG Base Excess -14 L -4 L VBG pH 7.43 VBG pCO2 34 L VBG pO2 37 VBG Base Excess -1 03/16/25 03/16/25 03/16/25 04:51 11:48 19:30 ABG pH 7.46 H 7.22 L D 7.38 D ABG pCO2 29 L 66 H D 48 D ABG pO2 78 L 79 L 236 H D ABG HCO3 21 27 H 29 H ABG O2 Saturation 96 91 100 H ABG Base Excess -2 -2 3 VBG pH VBG pCO2 VBG pO2 VBG Base Excess 03/17/25 03/18/25 03/19/25 04:53 09:27 04:46 ABG pH 7.38 7.35 ABG pCO2 49 H 48 ABG pO2 78 L D 92 ABG HCO3 29 H 26 ABG O2 Saturation 95 98 ABG Base Excess 3 0 VBG pH 7.34 VBG pCO2 54 D VBG pO2 34 VBG Base Excess 2 03/24/25 04/01/25 04/01/25 22:00 04:53 15:50 ABG pH 7.33 L 7.23 L ABG pCO2 48 62 H ABG pO2 233 H 102 ABG HCO3 25 26 ABG O2 Saturation 101 H 98 ABG Base Excess -1 -2 VBG pH 7.24 L VBG pCO2 57 H VBG pO2 51 VBG Base Excess -3 04/01/25 04/02/25 04/03/25 18:40 04:45 05:17 ABG pH 7.24 L 7.24 L 7.31 L ABG pCO2 61 H 59 H 56 H ABG pO2 207 H D 203 H 123 H D ABG HCO3 26 25 28 H ABG O2 Saturation 101 H 101 H 100 H ABG Base Excess -2 -3 2 VBG pH VBG pCO2 VBG pO2 VBG Base Excess 04/04/25 05:02 ABG pH 7.33 L ABG pCO2 51 H ABG pO2 114 H ABG HCO3 27 H ABG O2 Saturation 100 H ABG Base Excess 1 VBG pH VBG pCO2 VBG pO2 VBG Base Excess Quality Measures Quality Measures VTE prophylaxis Assessment & Plan Assessment Current Active Medications: Generic Name Dose Route Start Last Admin Trade Name Freq PRN Reason Stop Dose Admin Acetaminophen 650 mg 03/20/25 11:35 03/21/25 06:39 Acetaminophen 325 Mg Tablet PO 04/19/25 11:34 650 mg Q6HR PRN Administration pain and Fever >100.4 Protocol Hydrocodone Bitart/Acetaminophen 1 tab 04/12/25 07:25 Hydrocodone/Apap 10/325 Tab PO 04/16/25 12:05 Q6HR PRN PAIN SCALE 4-10(Mod-Sev Amiodarone HCl 200 mg 04/05/25 09:00 04/11/25 20:55 Amiodarone Hcl 200 Mg Tablet PO 05/05/25 08:59 200 mg BID MONTSERRAT Administration Apixaban 2.5 mg 04/08/25 10:15 04/11/25 20:55 Apixaban 2.5 Mg Tablet PO 05/08/25 10:14 2.5 mg BID MONTSERRAT Administration Artificial Tears 0 drop 04/04/25 21:37 04/04/25 21:53 Artificial Tears 225 Drop/15 Ml Btl BOTH EYES 05/04/25 21:36 2 drop PRN PRN Administration TO KEEP EYES MOIST Aspirin 81 mg 04/03/25 12:00 04/11/25 07:17 Aspirin Ec 81 Mg Tabec PO 05/03/25 11:59 81 mg QDAY MONTSERRAT Administration Heparin Sodium (Porcine) 3,800 unit 03/30/25 08:26 04/10/25 13:32 Heparin Sod Inj 1000 Unit/Ml Vial 10 Ml INDWELLCAT 04/13/25 08:25 3,800 unit PRN PRN Administration DIALYSIS Albumin Human 25 gm in 100 mls @ 100 mls/hr 04/01/25 07:37 04/02/25 09:00 Albuminar-25 Ivpb IV Infused PRN PRN Infusion DIALYSIS Levalbuterol HCl 0.31 mg 03/28/25 10:24 03/31/25 00:37 Levalbuterol Rt 0.31 Mg/3 Ml Nebu INH 04/19/25 12:14 0.31 mg Q6HRRT PRN Administration Wheezing Morphine Sulfate 30 mg 04/12/25 14:00 Morphine Sulf 15 Mg Tabcr PO 04/17/25 13:59 TID MONTSERRAT Protocol Ondansetron HCl 4 mg 03/14/25 17:31 03/30/25 01:39 Ondansetron Inj 2 Mg/Ml Inj 2 Ml IV 04/13/25 17:30 4 mg Q6H PRN Administration NAUSEA OR VOMITING Protocol Pantoprazole Sodium 40 mg 04/08/25 09:00 04/11/25 07:17 Pantoprazole 40 Mg Tablet PO 05/08/25 08:59 40 mg QDAY MONTSERRAT Administration Sevelamer Carbonate 800 mg 04/03/25 12:00 04/11/25 17:24 Sevelamer Carbonate 800 Mg Tablet PO 05/03/25 11:59 800 mg TIDWM MONTSERRAT Administration Sodium Chloride 3 ml 03/31/25 06:26 Sodium Cl Rt Marjorie 3% 4 Ml Nebu (Non-Formulary) INH 04/16/25 18:59 Q6HRRT PRN To induce cough Zolpidem Tartrate 5 mg 04/10/25 21:00 04/11/25 20:55 Zolpidem 5 Mg Tablet PO 05/10/25 20:59 5 mg HS MONTSERRAT Administration Plan 49-year-old male with past medical history of DM2, hypertension, ESRD (HD ), HFpEF (EF 55% on 2021), and right BKA due to osteomyelitis was admitted to the ICU on 03/14/2025 for acute hypoxic respiratory failure, acute encephalopathy, and shock. He was extubated and downgraded to telemetry on 03/20/2025. #Scrotal swelling, improving Patient today complained of scrotal swelling Could be do to fluid overload status less likely due to torsion or hernia Testicular US showed no torsion nor masses Plan: Continue HD with fluid removal #Right ulnar artery occlusion #Right upper extremity multiple digit necrosis #Left lower extremity gangrene/tissue necrosis s/p guillotine amputation distal #Peripheral Vascular disease, severe Abdomen CTA with runoff that showed occlusion of multiple arteries including the left radial, gluteal, and tibial arteries as well as 90% stenosis of the left superficial femoral artery Also showed 80% stenosis of right superficial femoral artery. Patient had his angiogram done yesterday showed right ulnar artery to be totally occluded or absent and there was no CAD. S/p guillotine amputation on 04/01/2025 Plan: Continue aspirin 81 mg daily Increase morphine oral extended release to 30 mg three times daily for better management of patient's pain Blodgett prn q6h Discontinued Dilaudid in preparation for possible discharge and as morphine has been increased to TID Wound care on board #A-fib with RVR, rate controlled #MAT #SVT Patient again went into SVT last night and was shocked again, but on repeat EKG showed to be in A-fib RVR. Patient again went into SVT and received adenosine 6mg x1 and adenosine 12mg x1 before being cardioverted. Repeat EKG showed what appears to be MAT. [id number] score of 3 points indicating 3.2% risk of stroke per year HAS-BLED score of 5 points Patient had his angiogram done 03/31/2025 showed right ulnar artery to be totally occluded or absent and there was no CAD. Cardiology recommended to stop patient's aspirin, Plavix, metoprolol, and statin Patient had a rapid response called on 04/01/2025 was tachycardic in the 140s and EKG looked to be like a SVT. Patient was cardioverted and was then in the heart rates in the 60s. Plan: Continue amiodarone 200 mg twice daily Continue Eliquis 2.5 mg BID Keep Potassium >4 and Mg >2 Insecticide Sprayer consulted, appreciate recommendations #HFpEF (EF 50-55% on 2024). Echo on 03/16/2025 showed EF of 45 to 50% and septal dyskinesis. Echo on 03/23/2025 shows some improvement and left ventricle function with an EF of 50 to 55% Plan: Will continue with hemodialysis with fluid removal. Daily weights. Strict JENN's. fluid restriction. #ESRD (HD on ). Patient was on hemodialysis and had AV fistula, but was clotted therefore cannot be used. Tunnedled dialysis cath placed 03/26/2025 Plan: Continue hemodialysis as scheduled. Continue sevelamer 800 mg 3 times daily [address] Prep[address] Dr. Pleitez following, appreciate recommendations Avoid nephrotoxic agents. Renally dose medications. #Macrocytic anemia. #Thrombocytopenia, improving Patient's hemoglobin was downtrending from 11.9 on admission Hemoglobin 7 and platelets 111 No active signs of bleeding Plan: Continue to monitor daily CBC Transfuse if Hgb less than 7. #Transaminitis, resolved #Hepatomegaly. Hepatitis panel negative and abdominal ultrasound that shows some hepatomegaly with possible cirrhosis versus hepatocellular disease. Plan: Continue monitoring daily labs #Hx of DM2. A1c 5.4 No need for ISS #Acute Hypoxic resp failure in the setting of Left base PNA, improving #Stenotrophomonas maltophilia pneumonia, resolved . #Respiratory acidosis, resolved. #Septic shock, resolved. #Troponinemia, resolved #Hematemesis, resolved #HAGMA, resolved. #Lactic acidosis, resolved. #Staph Hemolyticus bacteremia, resolved (finished course of vancomycin 03/23- 04/05) #CLABSI, resolved #Hyperbilirubinemia, resolved Hospital Maintenance: Disposition: Pending insurance auth Diet: renal DVT ppx: Heparin 5000 SC Q12H GI ppx: Protonix . Code status: DNR. Case disclosed with Attending Dr. Amrit Lee PGY1 Disclaimer: This note was dictated by speech recognition and even though it was carefully revised there may still be minor errors in heading maker due to voice recognition software. Attending Provider Attestation/Addendum I reviewed labs, imaging, EKG, home medications and prior available records. Face to face evaluation was performed by me. I have personally examined the patient and discussed assessment and plan with the IM team. I reviewed the resident note and agree with the plan with exceptions as below. Acute encephalopathy, resolved Acute hypoxic respiratory failure, status post intubation, s/p extubation ESRD on hemodialysis HFrEF EF 45 to 50% Atrial fibrillation with controlled ventricular rhythm PAD Gangrene of toes and fingers, in the setting of severe PAD in the vasopressors Non-STEMI Clotting of dialysis fistula Leukocytosis, improved Patient had a scrotal swelling. Ordered testicular ultrasound: Negative. Continue fluid management via hemodialysis Added Ambien for insomnia Status post guillotine left foot amputation on 04/01 Finished daptomycin and Zosyn on 04/08 Status post cardiac catheterization that showed nonobstructive CAD Status post angiogram that showed severe PAD with occlusions. Continue pain management orally with p.o. morphine and p.o. Blodgett as needed Status post permacath on 03/26 Outpatient follow-up with vascular surgery for the clotted fistula Monitor H&H: Stable Started diltiazem for the A-fib. Continue Eliquis 2.5 mg twice daily Continue aspirin Continue hemodialysis per nephrology recommendations PT recommended SNF. He is not on hospice. Pending authorization for the placement
--- NOTE | 2025-04-12 11:15 | PC.NURSE ---
BP LOW WILL ADMIN PRN ALBUMIN PER MD ORDERS , WILL CONT. TO MONITOR
[2025-04-12] MEDS: ALBUMIN HUMAN 25% IVPB 25 GM/100 ML BTL IV (11:16)
--- NOTE | 2025-04-12 11:49 | ESPR_ITS ---
<Statement entered by Yanci Villalobos MD - 04/13/25 08:26> I personally examined evaluated the patient once again he is doing better but still have a lot of pain in the right hand getting morphine pain medication patient will probably require amputation of the fingers digits and phalanges at some time after discharge to retirement facility given cardiac clearance in case the patient is referred to hand surgeon patient had negative angiogram though he has myocardial infarction A-fib rate controlled well as well. Agree with the treatment plan agree as documented by PGY 2 Dr. Wilkinson Documentation for date of: 04/12/25 Subjective Subjective Interval history: Patient was seen and examined at the bedside. No acute overnight events. Patient does not have any new complaints other than his pain in his fingers on the right hand. Primary team is planning to discharge patient today. Exam Vital Signs Temp Pulse Resp BP Pulse Ox O2 Del Method O2 Flow Rate 98.0 F 70 18 104/57 L 96 Nasal Cannula 3 04/12/25 11:46 04/12/25 11:45 04/12/25 11:46 04/12/25 11:45 04/12/25 11:46 04/12/25 07:58 04/12/25 11:46 FiO2 50 04/11/25 16:00 Narrative Exam Gen: Well-developed male. HEENT: NCAT, PERRLA, EOMI, MMM, anicteric conjunctivae. CVS: normal S1 and S2. RRR. No M/R/G. Resp: CTA B/L. No rhonchi, rales, crackles or wheezing. Abd: soft, non-tender, non-distended. BS+ in all 4 quadrants. MSK: S/p right BKA, stump appears necrotic, right thigh has blister. S/p left BKA, clean dressing. Dry gangrene over right 2nd and 3rd digits. Tip of left second digit appears necrotic. Neuro: CN II-XII grossly intact. Alert and oriented x3. Psych: appropriate mood and affect. Objective Labs 04/12/25 05:42 04/12/25 05:42 Labs: Laboratory Results - last 24 hr 04/03/25 04/12/25 09:50 05:42 WBC 8.4 RBC 2.22 L Hgb 7.0 L Hct 22.9 L MCV 103 H MCH 31.5 MCHC 30.6 L RDW Std Deviation 67.6 H Plt Count 111 L Neut % (Auto) 70 Lymph % (Auto) 11 [place] % (Auto) 11 Eos % (Auto) 5 Baso % (Auto) 0 Neut # (Auto) 5.9 Lymph # (Auto) 1.0 [place] # (Auto) 0.9 H Eos # (Auto) 0.4 Baso # (Auto) 0.0 Immature Gran # (Auto) 0.23 H Absolute Nucleated RBC 0.00 Immature Gran % 3 H Nucleated RBC % 0 Sodium 134 L Potassium 4.8 Chloride 96 L Carbon Dioxide 28.8 Anion Gap 9 BUN 38 H Creatinine 5.3 H* D Estim Creat Clear Calc 22.6 L eGFR 12 L* BUN/Creatinine Ratio 7 L Glucose 87 Calculated Osmolality 276 Calcium 8.2 L Corrected Calcium 8.8 Phosphorus 6.8 H Magnesium 2.3 Total Bilirubin 0.5 AST 12 ALT 9 L Alkaline Phosphatase 84 Total Protein 6.3 Albumin 3.2 L Globulin 3.1 Albumin/Globulin Ratio 1.0 L Vit D 1,25-Dihyd Total <8 L 1,25 Dihydroxy Vit D2 <8 1,25 Dihydroxy Vit D3 <8 ABG Interpretation ABG results: 03/14/25 03/14/25 03/14/25 14:44 16:44 18:53 ABG pH 7.03 L* 7.04 L* 7.10 L* ABG pCO2 43 50 H 46 ABG pO2 86 128 H D 57 L* D ABG HCO3 11 L 13 L 14 L ABG O2 Saturation 91 97 78 L ABG Base Excess -19 L -17 L -15 L VBG pH VBG pCO2 VBG pO2 VBG Base Excess 03/14/25 03/15/25 03/15/25 21:20 05:07 12:28 ABG pH 7.21 L D 7.41 D ABG pCO2 32 D 31 L ABG pO2 116 H D 74 L D ABG HCO3 13 L 20 ABG O2 Saturation 97 95 ABG Base Excess -14 L -4 L VBG pH 7.43 VBG pCO2 34 L VBG pO2 37 VBG Base Excess -1 03/16/25 03/16/25 03/16/25 04:51 11:48 19:30 ABG pH 7.46 H 7.22 L D 7.38 D ABG pCO2 29 L 66 H D 48 D ABG pO2 78 L 79 L 236 H D ABG HCO3 21 27 H 29 H ABG O2 Saturation 96 91 100 H ABG Base Excess -2 -2 3 VBG pH VBG pCO2 VBG pO2 VBG Base Excess 03/17/25 03/18/25 03/19/25 04:53 09:27 04:46 ABG pH 7.38 7.35 ABG pCO2 49 H 48 ABG pO2 78 L D 92 ABG HCO3 29 H 26 ABG O2 Saturation 95 98 ABG Base Excess 3 0 VBG pH 7.34 VBG pCO2 54 D VBG pO2 34 VBG Base Excess 2 03/24/25 04/01/25 04/01/25 22:00 04:53 15:50 ABG pH 7.33 L 7.23 L ABG pCO2 48 62 H ABG pO2 233 H 102 ABG HCO3 25 26 ABG O2 Saturation 101 H 98 ABG Base Excess -1 -2 VBG pH 7.24 L VBG pCO2 57 H VBG pO2 51 VBG Base Excess -3 04/01/25 04/02/25 04/03/25 18:40 04:45 05:17 ABG pH 7.24 L 7.24 L 7.31 L ABG pCO2 61 H 59 H 56 H ABG pO2 207 H D 203 H 123 H D ABG HCO3 26 25 28 H ABG O2 Saturation 101 H 101 H 100 H ABG Base Excess -2 -3 2 VBG pH VBG pCO2 VBG pO2 VBG Base Excess 04/04/25 05:02 ABG pH 7.33 L ABG pCO2 51 H ABG pO2 114 H ABG HCO3 27 H ABG O2 Saturation 100 H ABG Base Excess 1 VBG pH VBG pCO2 VBG pO2 VBG Base Excess Quality Measures Quality Measures VTE prophylaxis Assessment & Plan Assessment Current Active Medications: Generic Name Dose Route Start Last Admin Trade Name Freq PRN Reason Stop Dose Admin Acetaminophen 650 mg 03/20/25 11:35 03/21/25 06:39 Acetaminophen 325 Mg Tablet PO 04/19/25 11:34 650 mg Q6HR PRN Administration pain and Fever >100.4 Protocol Hydrocodone Bitart/Acetaminophen 1 tab 04/12/25 07:25 Hydrocodone/Apap 10/325 Tab PO 04/16/25 12:05 Q6HR PRN PAIN SCALE 4-10(Mod-Sev Amiodarone HCl 200 mg 04/05/25 09:00 04/11/25 20:55 Amiodarone Hcl 200 Mg Tablet PO 05/05/25 08:59 200 mg BID MONTSERRAT Administration Apixaban 2.5 mg 04/08/25 10:15 04/11/25 20:55 Apixaban 2.5 Mg Tablet PO 05/08/25 10:14 2.5 mg BID MONTSERRAT Administration Artificial Tears 0 drop 04/04/25 21:37 04/04/25 21:53 Artificial Tears 225 Drop/15 Ml Btl BOTH EYES 05/04/25 21:36 2 drop PRN PRN Administration TO KEEP EYES MOIST Aspirin 81 mg 04/03/25 12:00 04/11/25 07:17 Aspirin Ec 81 Mg Tabec PO 05/03/25 11:59 81 mg QDAY MONTSERRAT Administration Heparin Sodium (Porcine) 3,800 unit 03/30/25 08:26 04/10/25 13:32 Heparin Sod Inj 1000 Unit/Ml Vial 10 Ml INDWELLCAT 04/13/25 08:25 3,800 unit PRN PRN Administration DIALYSIS Albumin Human 25 gm in 100 mls @ 100 mls/hr 04/01/25 07:37 04/12/25 11:16 Albuminar-25 Ivpb IV 100 mls/hr PRN PRN Administration DIALYSIS Levalbuterol HCl 0.31 mg 03/28/25 10:24 03/31/25 00:37 Levalbuterol Rt 0.31 Mg/3 Ml Nebu INH 04/19/25 12:14 0.31 mg Q6HRRT PRN Administration Wheezing Morphine Sulfate 30 mg 04/12/25 14:00 Morphine Sulf 15 Mg Tabcr PO 04/17/25 13:59 TID MONTSERRAT Protocol Ondansetron HCl 4 mg 03/14/25 17:31 03/30/25 01:39 Ondansetron Inj 2 Mg/Ml Inj 2 Ml IV 04/13/25 17:30 4 mg Q6H PRN Administration NAUSEA OR VOMITING Protocol Pantoprazole Sodium 40 mg 04/08/25 09:00 04/11/25 07:17 Pantoprazole 40 Mg Tablet PO 05/08/25 08:59 40 mg QDAY MONTSERRAT Administration Sevelamer Carbonate 800 mg 04/03/25 12:00 04/11/25 17:24 Sevelamer Carbonate 800 Mg Tablet PO 05/03/25 11:59 800 mg TIDWM MONTSERRAT Administration Sodium Chloride 3 ml 03/31/25 06:26 Sodium Cl Rt Marjorie 3% 4 Ml Nebu (Non-Formulary) INH 04/16/25 18:59 Q6HRRT PRN To induce cough Zolpidem Tartrate 5 mg 04/10/25 21:00 04/11/25 20:55 Zolpidem 5 Mg Tablet PO 05/10/25 20:59 5 mg HS MONTSERRAT Administration Plan 49-year-old male with past medical history of DM2, hypertension, ESRD (HD ), HFpEF (EF 55% on 2021), and right BKA due to osteomyelitis was initially admitted to the ICU on 03/14/2025 for acute hypoxic respiratory failure, acute encephalopathy, and shock. He was subsequently extubated and downgraded to telemetry on 03/20/2025 for continuation of care. #Status post acute non-ST segment elevation myocardial infarction, NSTEMI possible type 2 troponin versus NSTEMI. #SVT episodes. #Afib, rate controlled. #HFpEF (EF 45-50%). Patient s/p intubation and pressor support in ICU for shock, distributive secondary to sepsis versus cardiogenic. Patient initially presented to ED in SVT and required shock x1. Troponin initially 1.856 uptrended to 7.899 peak. Patient was treated for pneumonia. Patient was able to wean off pressors, extubated, now downgraded to tele. CT LER showed diffuse stenosis on the arteries of the LLE, occlusions in almost all major arteries. Echo done on 03/16/2025 showed LV appears normal with EF 45-50%. Septal dyskinesis is seen, RV appears normal with RVSP 50 mmHg. Mildly dilated LA & RA Mild mitral regurgitation Mild-Moderate TR. 03/21, patient had 2 rapid response events for SVT in the 170-200s which self converted in minutes. 04/01 patient had 2 rapid response calls due to episodes of SVT, was started on amiodarone drip and subsequently underwent electrical cardioversion in ICU. Plan: - continue amiodarone 200 mg BID PO and aspirin 81 mg daily. - continue Eliquis 2.5 mg BID. - Maintain K >4.0 and Mag >2.0. - Continue dialysis per nephrology. #Extensive atherosclerotic cardiovascular disease with bilateral femoral artery occlusions and distal trifurcation disease with gangrenous changes, ruled out. #Vasopressor-induced vasoconstriction and gangrene of B/L fingers, sequelae. #Left foot gangrene, s/p BKA. -Patient has history of right extremity BKA due to severe PAD. This admission after severe shock requiring pressor support patient subsequently developed ischemia of the right and left fingertips. Vascular surgeon stated that the patient is not a candidate at this time for revascularization, however stated that would discuss case with general surgeon. Likely upper extremity digits affected by vasopressor support in combination with severe PAD causing limb ischemia. Angiography showed Normal, nonobstructive epicardial coronary arteries. Mild left ventricular dysfunction, ejection fraction 50%. Right ulnarl artery totally occluded with excellent flow from the radial artery. Left lower extremity angiogram showed widely patent SFA and trifurcation with distal dorsalis pedis 100% occlusion. Right lower extremity angiogram also showed no significant obstructive lesions until trifurcation( amputated BKA).Discontinued on aspirin, plavix and statin after angiography. Plan: - continue aspirin 81 mg daily. Rest of conditions to continue current management per primary team: #Staph hemolyticus bacteremia, treated. #Septic shock, resolved. #Acute hypoxic respiratory failure. #Community-acquired pneumonia, Stenotrophomonas maltophilia. #ESRD (HD on ). #History of type 2 diabetes. #Respiratory acidosis, resolved. #HAGMA, resolved. #Lactic acidosis, resolved. #Hyperkalemia, resolved. #Shock liver, resolved. #Possible GI bleed. #Macrocytic anemia. #Thrombocytopenia. #Hematemesis, resolved. #Hypoglycemia, resolved. Discussed the patient with my attending Dr Villalobos. Minh Smith MD, PGY 2. Disclaimer: This note was dictated by speech recognition. Minor errors in author may be present due to voice recognition software.
[2025-04-12] MEDS: HEPARIN SOD INJ 1000 UNIT/ML VIAL 10 ML 3800 UNIT INDWELLCAT (12:32)
[2025-04-12] MEDS: AMIODARONE HCL 200 MG TABLET PO ×2 (13:54→20:54)
[2025-04-12] MEDS: APIXABAN 2.5 MG TABLET PO ×2 (13:54→20:53)
[2025-04-12] MEDS: ASPIRIN EC 81 MG TABEC PO (13:54)
[2025-04-12] MEDS: PANTOPRAZOLE 40 MG TABLET PO (13:56)
[2025-04-12] MEDS: Morphine Sulf 15 MG TABCR 30 MG PO ×2 (13:56→22:02)
[2025-04-12] MEDS: SEVELAMER CARBONATE 800 MG TABLET PO (16:42)
[2025-04-12] MEDS: ZOLPIDEM 5 MG TABLET PO (20:55)
[2025-04-13] VITALS (35 sets, daily range): BP systolic 98–123; BP diastolic 57–87; PULSE 63–80; RESP 12–22; TEMP 36.1–36.8; O2SAT 92–100; BMI 37.9
[2025-04-13] MEDS: HYDROcodone/APAP 10/325 TAB PO ×3 (00:42→19:47)
[2025-04-13] MEDS: Morphine Sulf 15 MG TABCR 30 MG PO ×3 (05:09→20:59)
[2025-04-13 05:31] LABS: Basophils % (Auto) 0 % (0-2.5); Eosinophils # (Auto) 0.5 Thou/mm3 (0.0-0.5); Eosinophils % (Auto) 7 % (0-10); Immature Granulocytes % (Auto) 2 % (0-0); Immature Granulocytes Auto 0.12 Thou/mm3 (0.00-0.00); Lymphocytes # (Auto) 0.8 Thou/mm3 (1.0-4.8); Lymphocytes % (Auto) 11 % (10-50); Mean Corpuscular HGB Conc 30.6 g/dl (31.0-37.0); Mean Corpuscular Hemoglobin 31.9 pg (25.0-35.0); Mean Corpuscular Volume 104 fL (80-100); Monocytes # (Auto) 0.7 Thou/mm3 (0.0-0.8); Monocytes % (Auto) 10 % (0-12); Neutrophils % (Auto) 70 % (37-80); Nucleated Red Blood Cell % 0 /100 WBC (0); Platelet Count 98 Thou/mm3 (140-440); Red Blood Count 1.88 Miln/mm3 (4.50-5.90); White Blood Count 7.1 Thou/mm3 (3.8-10.6)
[2025-04-13 06:04] LABS: Alanine Aminotransferase 7 U/L (10-49); Albumin/Globulin Ratio 1.1 (1.2-2.2); Alkaline Phosphatase 78 U/L (46-116); Anion Gap 8 (7-16); Aspartate Amino Transferase < 10 U/L (0-34); BUN/Creatinine Ratio 7 Ratio (12-20); Bilirubin,Total 0.4 mg/dL (0.3-1.2); Blood Urea Nitrogen 33 mg/dL (9-23); Calcium 7.9 mg/dL (8.3-10.6); Calcium (Corrected) 8.7 mg/dL (8.5-10.1); Carbon Dioxide 29.5 mMol/L (20.0-31.0); Chloride 98 mMol/L (98-107); Creatinine (Component) 4.8 mg/dL (0.6-1.3); Estimated Creatinine Clearance 25.1 mL/min (>60); Globulin 2.7 gm/dL (2.3-3.5); Glucose 90 mg/dL (74-106); Magnesium 2.1 mg/dL (1.6-2.6); Osmolality,Calculated 277 (275-295); Phosphorous 6.4 mg/dL (2.4-5.1); Potassium 4.7 mMol/L (3.4-5.1); Sodium 135 mMol/L (136-145); Total Protein 5.7 gm/dL (5.7-8.2); eGFR 14 See Note
[2025-04-13 06:32] LABS: Hematocrit 19.6 % (41.0-53.0)
[2025-04-13] MEDS: PANTOPRAZOLE 40 MG TABLET PO (08:11)
[2025-04-13] MEDS: AMIODARONE HCL 200 MG TABLET PO ×2 (08:11→20:59)
[2025-04-13] MEDS: SEVELAMER CARBONATE 800 MG TABLET PO ×2 (08:11→17:38)
--- NOTE | 2025-04-13 08:53 | PD.RESPRO ---
Documentation for date of: 04/13/25 Subjective Subjective Interval history: Patient was seen and examined at bedside this morning. No acute overnight events. This morning patient's hemoglobin dropped to 6 from 7 yesterday and on repeat dropped to 4.8, patient is asymptomatic. Patient's amputation site has also been draining a lot more sanguinous fluid which could have impacted patient's hemoglobin and on dressing changed looked like a slow bleed. Patient also stated that his pain has been worse these past few days. Otherwise no new complaints. Exam Vital Signs Temp Pulse Resp BP Pulse Ox O2 Del Method O2 Flow Rate 97.1 F 73 18 115/61 95 Nasal Cannula 3 04/13/25 08:00 04/13/25 08:11 04/13/25 08:00 04/13/25 08:11 04/13/25 08:00 04/13/25 08:00 04/13/25 08:00 FiO2 50 04/13/25 08:00 Narrative Exam General: AO x 3, no acute distress Eyes: Pupils reactive to light, EOMI, vision intact Ears: No visible ear discharge Nose: No visible nasal discharge. Mouth/Throat: Moist mucous membranes, no redness, no lesions. Neck: Neck supple, no cervical lymphadenopathy. Lungs: Clear CHRISTIANO Cardio: Normal S1/S2, irregular, no murmurs, no JVD Abdomen: Soft, non-tender, no palpable masses, peristalsis present, no guarding or rebound Extremities: Right BKA with cyanotic changes which have slightly improved, left distal leg amputation above ankle level with sanguinous discharge and slow bleed laterally, right upper extremity digits show necrotic changes at the tips and extending proximally, swelling CHRISTIANO LE upto low abdomen Skin: Right upper extremity digits show necrotic changes at the tips Neuro: No focal neurological deficits, motor and sensory intact Objective Labs 04/13/25 09:10 04/13/25 05:12 Labs: Laboratory Results - last 24 hr 04/13/25 05:12 WBC 7.1 RBC 1.88 L* Hgb 6.0 L* Hct 19.6 L* MCV 104 H MCH 31.9 MCHC 30.6 L RDW Std Deviation 68.0 H Plt Count 98 L Neut % (Auto) 70 Lymph % (Auto) 11 Emery % (Auto) 10 Eos % (Auto) 7 Baso % (Auto) 0 Neut # (Auto) 5.0 Lymph # (Auto) 0.8 L Emery # (Auto) 0.7 Eos # (Auto) 0.5 Baso # (Auto) 0.0 Immature Gran # (Auto) 0.12 H Absolute Nucleated RBC 0.00 Immature Gran % 2 H Nucleated RBC % 0 Sodium 135 L Potassium 4.7 Chloride 98 Carbon Dioxide 29.5 Anion Gap 8 BUN 33 H Creatinine 4.8 H* D Estim Creat Clear Calc 25.1 L eGFR 14 L* BUN/Creatinine Ratio 7 L Glucose 90 Calculated Osmolality 277 Calcium 7.9 L Corrected Calcium 8.7 Phosphorus 6.4 H Magnesium 2.1 Total Bilirubin 0.4 AST < 10 ALT 7 L Alkaline Phosphatase 78 Total Protein 5.7 Albumin 3.0 L Globulin 2.7 Albumin/Globulin Ratio 1.1 L ABG Interpretation ABG results: 03/14/25 03/14/25 03/14/25 14:44 16:44 18:53 ABG pH 7.03 L* 7.04 L* 7.10 L* ABG pCO2 43 50 H 46 ABG pO2 86 128 H D 57 L* D ABG HCO3 11 L 13 L 14 L ABG O2 Saturation 91 97 78 L ABG Base Excess -19 L -17 L -15 L VBG pH VBG pCO2 VBG pO2 VBG Base Excess 03/14/25 03/15/25 03/15/25 21:20 05:07 12:28 ABG pH 7.21 L D 7.41 D ABG pCO2 32 D 31 L ABG pO2 116 H D 74 L D ABG HCO3 13 L 20 ABG O2 Saturation 97 95 ABG Base Excess -14 L -4 L VBG pH 7.43 VBG pCO2 34 L VBG pO2 37 VBG Base Excess -1 03/16/25 03/16/25 03/16/25 04:51 11:48 19:30 ABG pH 7.46 H 7.22 L D 7.38 D ABG pCO2 29 L 66 H D 48 D ABG pO2 78 L 79 L 236 H D ABG HCO3 21 27 H 29 H ABG O2 Saturation 96 91 100 H ABG Base Excess -2 -2 3 VBG pH VBG pCO2 VBG pO2 VBG Base Excess 03/17/25 03/18/25 03/19/25 04:53 09:27 04:46 ABG pH 7.38 7.35 ABG pCO2 49 H 48 ABG pO2 78 L D 92 ABG HCO3 29 H 26 ABG O2 Saturation 95 98 ABG Base Excess 3 0 VBG pH 7.34 VBG pCO2 54 D VBG pO2 34 VBG Base Excess 2 03/24/25 04/01/25 04/01/25 22:00 04:53 15:50 ABG pH 7.33 L 7.23 L ABG pCO2 48 62 H ABG pO2 233 H 102 ABG HCO3 25 26 ABG O2 Saturation 101 H 98 ABG Base Excess -1 -2 VBG pH 7.24 L VBG pCO2 57 H VBG pO2 51 VBG Base Excess -3 04/01/25 04/02/25 04/03/25 18:40 04:45 05:17 ABG pH 7.24 L 7.24 L 7.31 L ABG pCO2 61 H 59 H 56 H ABG pO2 207 H D 203 H 123 H D ABG HCO3 26 25 28 H ABG O2 Saturation 101 H 101 H 100 H ABG Base Excess -2 -3 2 VBG pH VBG pCO2 VBG pO2 VBG Base Excess 04/04/25 05:02 ABG pH 7.33 L ABG pCO2 51 H ABG pO2 114 H ABG HCO3 27 H ABG O2 Saturation 100 H ABG Base Excess 1 VBG pH VBG pCO2 VBG pO2 VBG Base Excess Quality Measures Quality Measures VTE prophylaxis Assessment & Plan Assessment Current Active Medications: Generic Name Dose Route Start Last Admin Trade Name Freq PRN Reason Stop Dose Admin Acetaminophen 650 mg 03/20/25 11:35 03/21/25 06:39 Acetaminophen 325 Mg Tablet PO 04/19/25 11:34 650 mg Q6HR PRN Administration pain and Fever >100.4 Protocol Hydrocodone Bitart/Acetaminophen 1 tab 04/12/25 07:25 04/13/25 08:11 Hydrocodone/Apap 10/325 Tab PO 04/16/25 12:05 1 tab Q6HR PRN Administration PAIN SCALE 4-10(Mod-Sev Amiodarone HCl 200 mg 04/05/25 09:00 04/13/25 08:11 Amiodarone Hcl 200 Mg Tablet PO 05/05/25 08:59 200 mg BID MONTSERRAT Administration Apixaban 2.5 mg 04/08/25 10:15 04/12/25 20:53 Apixaban 2.5 Mg Tablet PO 05/08/25 10:14 2.5 mg BID MONTSERRAT Administration Artificial Tears 0 drop 04/04/25 21:37 04/04/25 21:53 Artificial Tears 225 Drop/15 Ml Btl BOTH EYES 05/04/25 21:36 2 drop PRN PRN Administration TO KEEP EYES MOIST Aspirin 81 mg 04/12/25 14:00 04/12/25 13:54 Aspirin Ec 81 Mg Tabec PO 05/12/25 13:59 81 mg QDAY MONTSERRAT Administration Albumin Human 25 gm in 100 mls @ 100 mls/hr 04/01/25 07:37 04/12/25 11:16 Albuminar-25 Ivpb IV 100 mls/hr PRN PRN Administration DIALYSIS Levalbuterol HCl 0.31 mg 03/28/25 10:24 03/31/25 00:37 Levalbuterol Rt 0.31 Mg/3 Ml Nebu INH 04/19/25 12:14 0.31 mg Q6HRRT PRN Administration Wheezing Morphine Sulfate 30 mg 04/12/25 14:00 04/13/25 05:09 Morphine Sulf 15 Mg Tabcr PO 04/17/25 13:59 30 mg TID MONTSERRAT Administration Protocol Ondansetron HCl 4 mg 03/14/25 17:31 03/30/25 01:39 Ondansetron Inj 2 Mg/Ml Inj 2 Ml IV 04/13/25 17:30 4 mg Q6H PRN Administration NAUSEA OR VOMITING Protocol Pantoprazole Sodium 40 mg 04/08/25 09:00 04/13/25 08:11 Pantoprazole 40 Mg Tablet PO 05/08/25 08:59 40 mg QDAY MONTSERRAT Administration Pregabalin 50 mg 04/13/25 09:00 Pregabalin 50 Mg Capsule PO 05/13/25 08:59 TID MONTSERRAT Sevelamer Carbonate 800 mg 04/03/25 12:00 04/13/25 08:11 Sevelamer Carbonate 800 Mg Tablet PO 05/03/25 11:59 800 mg TIDWM MONTSERRAT Administration Sodium Chloride 3 ml 03/31/25 06:26 Sodium Cl Rt Marjorie 3% 4 Ml Nebu (Non-Formulary) INH 04/16/25 18:59 Q6HRRT PRN To induce cough Zolpidem Tartrate 5 mg 04/10/25 21:00 05/19/25 20:55 Zolpidem 5 Mg Tablet PO 05/10/25 20:59 5 mg HS MONTSERRAT Administration Plan 49-year-old male with past medical history of DM2, hypertension, ESRD (HD /), HFpEF (EF 55% on 2021), and right BKA due to osteomyelitis was admitted to the ICU on 03/14/2025 for acute hypoxic respiratory failure, acute encephalopathy, and shock. He was extubated and downgraded to telemetry on 03/20/2025. #Acute blood loss anemia #Macrocytic anemia. #Thrombocytopenia Patient's hemoglobin was downtrending from 11.9 on admission Hemoglobin 6 and platelets 98 in the AM and on repeat was 4.8, but patient asymptomatic. Some bleeding from amputation site. Plan: 3 units PRBC, 1 FFP, 1 platelets to be transfused Continue to monitor daily CBC Transfuse if Hgb less than 7. #Right ulnar artery occlusion #Right upper extremity multiple digit necrosis #Left lower extremity gangrene/tissue necrosis s/p guillotine amputation distal #Peripheral Vascular disease, severe Abdomen CTA with runoff that showed occlusion of multiple arteries including the left radial, gluteal, and tibial arteries as well as 90% stenosis of the left superficial femoral artery Also showed 80% stenosis of right superficial femoral artery. Patient had his angiogram done yesterday showed right ulnar artery to be totally occluded or absent and there was no CAD. S/p guillotine amputation on 04/01/2025 Spoke with orthopedic surgeon who stated that at this time there was no need for amputation of the hand digits unless these became infected. Also with these became infected patient will have to be transferred to a tertiary care center as hand potation's are not in the hospital. Plan: Continue aspirin 81 mg daily Increase morphine oral extended release to 30 mg three times daily for better management of patient's pain [place] prn q6h Added pregabalin 50mg TID for neuropathic pain Discontinued Dilaudid in preparation for possible discharge and as morphine has been increased to TID Wound care on board #A-fib with RVR, rate controlled #MAT #SVT Patient again went into SVT last night and was shocked again, but on repeat EKG showed to be in A-fib RVR. Patient again went into SVT and received adenosine 6mg x1 and adenosine 12mg x1 before being cardioverted. Repeat EKG showed what appears to be MAT. [id number] score of 3 points indicating 3.2% risk of stroke per year HAS-BLED score of 5 points Patient had his angiogram done 03/31/2025 showed right ulnar artery to be totally occluded or absent and there was no CAD. Cardiology recommended to stop patient's aspirin, Plavix, metoprolol, and statin Patient had a rapid response called on 04/01/2025 was tachycardic in the 140s and EKG looked to be like a SVT. Patient was cardioverted and was then in the heart rates in the 60s. Plan: Continue amiodarone 200 mg twice daily Continue Eliquis 2.5 mg BID, ok by surgery Keep Potassium >4 and Mg >2 Biometrics Consultant consulted, appreciate recommendations #Scrotal swelling Patient today complained of scrotal swelling Could be do to fluid overload status less likely due to torsion or hernia Testicular US showed no torsion nor masses Plan: Continue HD with fluid removal and fluid restriction #HFpEF (EF 50-55% on 2024). Echo on 03/16/2025 showed EF of 45 to 50% and septal dyskinesis. Echo on 03/23/2025 shows some improvement and left ventricle function with an EF of 50 to 55% Plan: Will continue with hemodialysis with fluid removal. Daily weights. Strict JENN's. fluid restriction. #ESRD (HD on ). Patient was on hemodialysis and had AV fistula, but was clotted therefore cannot be used. Tunnedled dialysis cath placed 03/26/2025 Plan: Continue hemodialysis as scheduled. Continue sevelamer 800 mg 3 times daily Product Mgr Dr. Pleitez following, appreciate recommendations Avoid nephrotoxic agents. Renally dose medications. #Transaminitis, resolved #Hepatomegaly. Hepatitis panel negative and abdominal ultrasound that shows some hepatomegaly with possible cirrhosis versus hepatocellular disease. Plan: Continue monitoring daily labs #Hx of DM2. A1c 5.4 No need for ISS #Acute Hypoxic resp failure in the setting of Left base PNA, improving #Stenotrophomonas maltophilia pneumonia, resolved . #Respiratory acidosis, resolved. #Septic shock, resolved. #Troponinemia, resolved #Hematemesis, resolved #HAGMA, resolved. #Lactic acidosis, resolved. #Staph Hemolyticus bacteremia, resolved (finished course of vancomycin 03/23-04/05) #CLABSI, resolved #Hyperbilirubinemia, resolved Hospital Maintenance: Disposition: Pending insurance auth Diet: renal DVT ppx: Eliquis GI ppx: Protonix . Code status: DNR. Case disclosed with Attending Dr. Josephine Lee PGY1 Disclaimer: This note was dictated by speech recognition and even though it was carefully revised there may still be minor errors in lockstitch shoulder joiner due to voice recognition software. Attending Provider Attestation/Addendum I attest that I was physically present for the evaluation, physical examination, lab and imaging review of the patient with the residents. I discussed the case with the residents and agree with the findings and plans of care as documented above. At bedside today, patient continues to complain of pain around his hands. We will add pregabalin for neuropathic pain. Noted to have drop in his hemoglobin from 7.0 yesterday to 6.0 this morning, repeat H&H around 9 showed hemoglobin level of 4.8. We will start transfusion with 3 units PRBC, 1 unit FFP and 1 unit platelets. Noted to have oozing of blood from his left BKA stump. Discussed with general surgery, who evaluated the patient at bedside and recommended dressing changes with pressure bandage, also recommended to continue aspirin and Eliquis. Patient is also planned to have hemodialysis today, will receive transfusion during dialysis. Continues to be on 3 L nasal cannula, saturating well. We will obtain post transfusion him H&H and continue monitoring with daily CBC. Severo Burton MD
[2025-04-13] MEDS: PREGABALIN 50 MG CAPSULE PO ×3 (09:11→21:00)
[2025-04-13 10:54] LABS: Hematocrit 15.4 % (41.0-53.0); Hemoglobin 4.8 g/dL (13.5-16.0)
--- NOTE | 2025-04-13 11:32 | PC.SS ---
Addendum entered by Gabriela Garcia 04/13/25 14:19: SS follow up note; Patient is not medically cleared at the time, [facility] tonja, Dr. Spann's rec's pending. Original Note: SS follow up note; SS contacted Luma from [employer] in regard to auth and she informed SS that DR will be reviewing shortly and therefore she would contact SS.
--- NOTE | 2025-04-13 13:15 | PC.NURSE ---
Patient transported to dialysis via bed per wafer substrate testerDoc. Patient awake, alert and oriented with no signs of acute distress.
--- NOTE | 2025-04-13 13:39 | ESPR_ITS ---
<Statement entered by Yanci Villalobos MD - 04/14/25 12:43> I personally evaluated examined this patient who was doing fairly well suddenly dropped his hemoglobin to 4 and half grams requiring transfusion is also bleeding from surgical site being evaluated by surgery team does not complain of any cardiac symptoms chest pain shortness still has right hand pain recommend transfuse the patient Patient will be continued medical management discontinue anticoagulation completely because asked excessive bleeding risk already having significant blood loss requiring transfusion. Evaluated patient with resident physician PGY 2 Dr. Wilkinson agree with the treatment plan recommendation Documentation for date of: 04/13/25 Subjective Subjective Interval history: Patient was seen and examined at bedside. No acute overnight events. Patient was found to have hemoglobin 4.8, down from 7 from yesterday. 3 units of PRBCs were ordered by primary team along with 1 unit of FFP and 1 unit of PLT. Eliquis and aspirin were held. The bleeding is likely from his left BKA, general surgery was notified about finding. Surgical dressing were changed. Patient continues to complain of right hand pain which is poorly controlled with current pain regimen. Exam Vital Signs Temp Pulse Resp BP Pulse Ox O2 Del Method O2 Flow Rate 98.2 F 65 18 110/65 95 Nasal Cannula 3 04/13/25 13:10 04/13/25 13:10 04/13/25 13:10 04/13/25 13:10 04/13/25 13:10 04/13/25 08:00 04/13/25 13:10 FiO2 50 04/13/25 08:00 Narrative Exam Gen: Well-developed male. HEENT: NCAT, PERRLA, EOMI, MMM, anicteric conjunctivae. CVS: normal S1 and S2. RRR. No M/R/G. Resp: CTA B/L. No rhonchi, rales, crackles or wheezing. Abd: soft, non-tender, non-distended. BS+ in all 4 quadrants. MSK: S/p right BKA, stump appears necrotic, right thigh has blister. S/p left BKA, clean dressing. Dry gangrene over right 2nd and 3rd digits. Tip of left second digit appears necrotic. Neuro: CN II-XII grossly intact. Alert and oriented x3. Psych: appropriate mood and affect. Objective Labs 04/13/25 09:10 04/13/25 05:12 Labs: Laboratory Results - last 24 hr 04/13/25 04/13/25 04/13/25 05:12 09:10 11:20 WBC 7.1 RBC 1.88 L* Hgb 6.0 L* 4.8 L* Hct 19.6 L* 15.4 L* MCV 104 H MCH 31.9 MCHC 30.6 L RDW Std Deviation 68.0 H Plt Count 98 L Neut % (Auto) 70 Lymph % (Auto) 11 King % (Auto) 10 Eos % (Auto) 7 Baso % (Auto) 0 Neut # (Auto) 5.0 Lymph # (Auto) 0.8 L King # (Auto) 0.7 Eos # (Auto) 0.5 Baso # (Auto) 0.0 Immature Gran # (Auto) 0.12 H Absolute Nucleated RBC 0.00 Immature Gran % 2 H Nucleated RBC % 0 Sodium 135 L Potassium 4.7 Chloride 98 Carbon Dioxide 29.5 Anion Gap 8 BUN 33 H Creatinine 4.8 H* D Estim Creat Clear Calc 25.1 L eGFR 14 L* BUN/Creatinine Ratio 7 L Glucose 90 Calculated Osmolality 277 Calcium 7.9 L Corrected Calcium 8.7 Phosphorus 6.4 H Magnesium 2.1 Total Bilirubin 0.4 AST < 10 ALT 7 L Alkaline Phosphatase 78 Total Protein 5.7 Albumin 3.0 L Globulin 2.7 Albumin/Globulin Ratio 1.1 L Blood Type A Positive Antibody Screen NEGATIVE Crossmatch See Detail Blood Bank Wristband ID Yes Blood Bank Comment FFP Ready ABG Interpretation ABG results: 03/14/25 03/14/25 03/14/25 14:44 16:44 18:53 ABG pH 7.03 L* 7.04 L* 7.10 L* ABG pCO2 43 50 H 46 ABG pO2 86 128 H D 57 L* D ABG HCO3 11 L 13 L 14 L ABG O2 Saturation 91 97 78 L ABG Base Excess -19 L -17 L -15 L VBG pH VBG pCO2 VBG pO2 VBG Base Excess 03/14/25 03/15/25 03/15/25 21:20 05:07 12:28 ABG pH 7.21 L D 7.41 D ABG pCO2 32 D 31 L ABG pO2 116 H D 74 L D ABG HCO3 13 L 20 ABG O2 Saturation 97 95 ABG Base Excess -14 L -4 L VBG pH 7.43 VBG pCO2 34 L VBG pO2 37 VBG Base Excess -1 03/16/25 03/16/25 03/16/25 04:51 11:48 19:30 ABG pH 7.46 H 7.22 L D 7.38 D ABG pCO2 29 L 66 H D 48 D ABG pO2 78 L 79 L 236 H D ABG HCO3 21 27 H 29 H ABG O2 Saturation 96 91 100 H ABG Base Excess -2 -2 3 VBG pH VBG pCO2 VBG pO2 VBG Base Excess 03/17/25 03/18/25 03/19/25 04:53 09:27 04:46 ABG pH 7.38 7.35 ABG pCO2 49 H 48 ABG pO2 78 L D 92 ABG HCO3 29 H 26 ABG O2 Saturation 95 98 ABG Base Excess 3 0 VBG pH 7.34 VBG pCO2 54 D VBG pO2 34 VBG Base Excess 2 03/24/25 04/01/25 04/01/25 22:00 04:53 15:50 ABG pH 7.33 L 7.23 L ABG pCO2 48 62 H ABG pO2 233 H 102 ABG HCO3 25 26 ABG O2 Saturation 101 H 98 ABG Base Excess -1 -2 VBG pH 7.24 L VBG pCO2 57 H VBG pO2 51 VBG Base Excess -3 04/01/25 04/02/25 04/03/25 18:40 04:45 05:17 ABG pH 7.24 L 7.24 L 7.31 L ABG pCO2 61 H 59 H 56 H ABG pO2 207 H D 203 H 123 H D ABG HCO3 26 25 28 H ABG O2 Saturation 101 H 101 H 100 H ABG Base Excess -2 -3 2 VBG pH VBG pCO2 VBG pO2 VBG Base Excess 04/04/25 05:02 ABG pH 7.33 L ABG pCO2 51 H ABG pO2 114 H ABG HCO3 27 H ABG O2 Saturation 100 H ABG Base Excess 1 VBG pH VBG pCO2 VBG pO2 VBG Base Excess Quality Measures Quality Measures VTE prophylaxis Assessment & Plan Assessment Current Active Medications: Generic Name Dose Route Start Last Admin Trade Name Freq PRN Reason Stop Dose Admin Acetaminophen 650 mg 04/13/25 09:13 Acetaminophen 325 Mg Tablet PO 04/19/25 11:34 Q6HR PRN pain 1-3 OR Fever >100.4 Protocol Hydrocodone Bitart/Acetaminophen 1 tab 04/12/25 07:25 04/13/25 08:11 Hydrocodone/Apap 10/325 Tab PO 04/16/25 12:05 1 tab Q6HR PRN Administration PAIN SCALE 4-10(Mod-Sev Amiodarone HCl 200 mg 04/05/25 09:00 04/13/25 08:11 Amiodarone Hcl 200 Mg Tablet PO 05/05/25 08:59 200 mg BID MONTSERART Administration Apixaban 2.5 mg 04/08/25 10:15 04/12/25 20:53 Apixaban 2.5 Mg Tablet PO 05/08/25 10:14 2.5 mg BID MONTSERRAT Administration Artificial Tears 0 drop 04/04/25 21:37 04/04/25 21:53 Artificial Tears 225 Drop/15 Ml Btl BOTH EYES 05/04/25 21:36 2 drop PRN PRN Administration TO KEEP EYES MOIST Aspirin 81 mg 04/12/25 14:00 04/12/25 13:54 Aspirin Ec 81 Mg Tabec PO 05/12/25 13:59 81 mg QDAY MONTSERRAT Administration Albumin Human 25 gm in 100 mls @ 100 mls/hr 04/01/25 07:37 04/12/25 11:16 Albuminar-25 Ivpb IV 100 mls/hr PRN PRN Administration DIALYSIS Levalbuterol HCl 0.31 mg 03/28/25 10:24 03/31/25 00:37 Levalbuterol Rt 0.31 Mg/3 Ml Nebu INH 04/19/25 12:14 0.31 mg Q6HRRT PRN Administration Wheezing Morphine Sulfate 30 mg 04/12/25 14:00 04/13/25 05:09 Morphine Sulf 15 Mg Tabcr PO 04/17/25 13:59 30 mg TID MONTSERRAT Administration Protocol Ondansetron HCl 4 mg 03/14/25 17:31 03/30/25 01:39 Ondansetron Inj 2 Mg/Ml Inj 2 Ml IV 04/13/25 17:30 4 mg Q6H PRN Administration NAUSEA OR VOMITING Protocol Pantoprazole Sodium 40 mg 04/08/25 09:00 04/13/25 08:11 Pantoprazole 40 Mg Tablet PO 05/08/25 08:59 40 mg QDAY MONTSERRAT Administration Pregabalin 50 mg 04/13/25 09:00 04/13/25 09:11 Pregabalin 50 Mg Capsule PO 05/13/25 08:59 50 mg TID MONTSERRAT Administration Sevelamer Carbonate 800 mg 04/03/25 12:00 04/13/25 08:11 Sevelamer Carbonate 800 Mg Tablet PO 05/03/25 11:59 800 mg TIDWM MONTSERRAT Administration Sodium Chloride 3 ml 03/31/25 06:26 Sodium Cl Rt Marjorie 3% 4 Ml Nebu (Non-Formulary) INH 04/16/25 18:59 Q6HRRT PRN To induce cough Zolpidem Tartrate 5 mg 04/10/25 21:00 04/12/25 20:55 Zolpidem 5 Mg Tablet PO 05/10/25 20:59 5 mg HS MONTSERRAT Administration Plan 49-year-old male with past medical history of DM2, hypertension, ESRD (HD ), HFpEF (EF 55% on 2021), and right BKA due to osteomyelitis was initially admitted to the ICU on 03/14/2025 for acute hypoxic respiratory failure, acute encephalopathy, and shock. He was subsequently extubated and downgraded to telemetry on 03/20/2025 for continuation of care. #Postop bleeding from left BKA. - hemoglobin 4.8, down from 7 from yesterday. - 3 units of PRBCs were ordered by primary team along with 1 unit of FFP and 1 unit of PLT. - Eliquis and aspirin were held. - General surgery on board. #Status post acute non-ST segment elevation myocardial infarction, NSTEMI possible type 2 troponin versus NSTEMI. #SVT episodes. #Afib, rate controlled. #HFpEF (EF 45-50%). Patient s/p intubation and pressor support in ICU for shock, distributive secondary to sepsis versus cardiogenic. Patient initially presented to ED in SVT and required shock x1. Troponin initially 1.856 uptrended to 7.899 peak. Patient was treated for pneumonia. Patient was able to wean off pressors, extubated, now downgraded to tele. CT LER showed diffuse stenosis on the arteries of the LLE, occlusions in almost all major arteries. Echo done on 03/16/2025 showed LV appears normal with EF 45-50%. Septal dyskinesis is seen, RV appears normal with RVSP 50 mmHg. Mildly dilated LA & RA Mild mitral regurgitation Mild-Moderate TR. 03/21, patient had 2 rapid response events for SVT in the 170-200s which self converted in minutes. 04/01 patient had 2 rapid response calls due to episodes of SVT, was started on amiodarone drip and subsequently underwent electrical cardioversion in ICU. Plan: - continue amiodarone 200 mg BID PO. - Hold Eliquis 2.5 mg BID in setting of bleeding. - Maintain K >4.0 and Mag >2.0. - Continue dialysis per nephrology. - Transfused 3 units of PRBCs STAT. #Extensive atherosclerotic cardiovascular disease with bilateral femoral artery occlusions and distal trifurcation disease with gangrenous changes, ruled out. #Vasopressor-induced vasoconstriction and gangrene of B/L fingers, sequelae. #Left foot gangrene, s/p BKA. -Patient has history of right extremity BKA due to severe PAD. This admission after severe shock requiring pressor support patient subsequently developed ischemia of the right and left fingertips. Vascular surgeon stated that the patient is not a candidate at this time for revascularization, however stated that would discuss case with general surgeon. Likely upper extremity digits affected by vasopressor support in combination with severe PAD causing limb ischemia. Angiography showed Normal, nonobstructive epicardial coronary arteries. Mild left ventricular dysfunction, ejection fraction 50%. Right ulnarl artery totally occluded with excellent flow from the radial artery. Left lower extremity angiogram showed widely patent SFA and trifurcation with distal dorsalis pedis 100% occlusion. Right lower extremity angiogram also showed no significant obstructive lesions until trifurcation( amputated BKA).Discontinued on aspirin, plavix and statin after angiography. Plan: - Hold aspirin 81 mg daily in setting of bleeding. Rest of conditions to continue current management per primary team: #Staph hemolyticus bacteremia, treated. #Septic shock, resolved. #Acute hypoxic respiratory failure. #Community-acquired pneumonia, Stenotrophomonas maltophilia. #ESRD (HD on ). #History of type 2 diabetes. #Respiratory acidosis, resolved. #HAGMA, resolved. #Lactic acidosis, resolved. #Hyperkalemia, resolved. #Shock liver, resolved. #Possible GI bleed. #Macrocytic anemia. #Thrombocytopenia. #Hematemesis, resolved. #Hypoglycemia, resolved. Discussed the patient with my attending Dr Villalobos. Minh Smith MD, PGY 2. Disclaimer: This note was dictated by speech recognition. Minor errors in child support case officer may be present due to voice recognition software.
[2025-04-13] MEDS: HYDROmorphone INJ 2 MG/ML VIAL 0.5 MG IVP (13:48)
--- NOTE | 2025-04-13 14:01 | PC.NURSE ---
transfusing first unit of prbc's, pt tolerating w/o complications will cont. to monitor
--- NOTE | 2025-04-13 14:17 | PC.NURSE ---
transfusing second unit of prbc's, pt tolerating w/o complications. Will cont. to monitor
--- NOTE | 2025-04-13 14:46 | PC.NURSE ---
transfusing third unit of prbc's pt tolerating well,will cont. to monitor
--- NOTE | 2025-04-13 15:00 | PC.WOUND ---
Spoke with Tess GALLEGOS RN, no strike through on left disarticulation site dressing. Dressing to be changed with Dr. Spann at bedside tomorrow.
--- NOTE | 2025-04-13 15:32 | PC.NURSE ---
transfusing 1 bag of platelets, pt tolerating w/o complications. Will cont. to monitor
[2025-04-13] MEDS: HEPARIN SOD INJ 1000 UNIT/ML VIAL 10 ML 3800 UNIT INDWELLCAT (17:12)
[2025-04-13 18:48] LABS: Basophils % (Auto) 1 % (0-2.5); Eosinophils # (Auto) 0.3 Thou/mm3 (0.0-0.5); Eosinophils % (Auto) 4 % (0-10); Hematocrit 26.5 % (41.0-53.0); Immature Granulocytes % (Auto) 2 % (0-0); Immature Granulocytes Auto 0.12 Thou/mm3 (0.00-0.00); Lymphocytes # (Auto) 0.7 Thou/mm3 (1.0-4.8); Lymphocytes % (Auto) 10 % (10-50); Mean Corpuscular HGB Conc 32.5 g/dl (31.0-37.0); Mean Corpuscular Hemoglobin 30.5 pg (25.0-35.0); Mean Corpuscular Volume 94 fL (80-100); Monocytes # (Auto) 0.7 Thou/mm3 (0.0-0.8); Monocytes % (Auto) 9 % (0-12); Neutrophils # (Auto) 5.5 Thou/mm3 (1.8-7.7); Neutrophils % (Auto) 75 % (37-80); Nucleated Red Blood Cell % 0 /100 WBC (0); Platelet Count 115 Thou/mm3 (140-440); RDW Standard Deviation 66.3 fL (35.1-43.9); Red Blood Count 2.82 Miln/mm3 (4.50-5.90); White Blood Count 7.3 Thou/mm3 (3.8-10.6)
[2025-04-13 18:57] LABS: Hemoglobin 8.6 g/dL (13.5-16.0)
[2025-04-13] MEDS: ZOLPIDEM 5 MG TABLET PO (20:59)
[2025-04-14] VITALS (10 sets, daily range): BP systolic 97–111; BP diastolic 53–68; PULSE 63–82; RESP 15–22; TEMP 36.6–36.7; O2SAT 95–100; BMI 11.0
[2025-04-14] MEDS: Morphine Sulf 15 MG TABCR 30 MG PO (05:06)
[2025-04-14 05:53] LABS: Basophils % (Auto) 0 % (0-2.5); Eosinophils # (Auto) 0.4 Thou/mm3 (0.0-0.5); Eosinophils % (Auto) 5 % (0-10); Immature Granulocytes % (Auto) 1 % (0-0); Immature Granulocytes Auto 0.09 Thou/mm3 (0.00-0.00); Lymphocytes # (Auto) 0.9 Thou/mm3 (1.0-4.8); Lymphocytes % (Auto) 12 % (10-50); Mean Corpuscular HGB Conc 32.5 g/dl (31.0-37.0); Mean Corpuscular Volume 95 fL (80-100); Monocytes # (Auto) 0.8 Thou/mm3 (0.0-0.8); Monocytes % (Auto) 10 % (0-12); Neutrophils # (Auto) 5.5 Thou/mm3 (1.8-7.7); Neutrophils % (Auto) 72 % (37-80); Nucleated Red Blood Cell % 0 /100 WBC (0); Platelet Count 103 Thou/mm3 (140-440); RDW Standard Deviation 69.2 fL (35.1-43.9); Red Blood Count 2.52 Miln/mm3 (4.50-5.90); White Blood Count 7.7 Thou/mm3 (3.8-10.6)
[2025-04-14 05:57] LABS: Hemoglobin 7.8 g/dL (13.5-16.0)
[2025-04-14] MEDS: PREGABALIN 50 MG CAPSULE PO ×3 (06:10→22:28)
[2025-04-14 06:41] LABS: Alanine Aminotransferase 7 U/L (10-49); Albumin, Serum 3.1 gm/dL (3.5-5.0); Albumin/Globulin Ratio 1.1 (1.2-2.2); Alkaline Phosphatase 83 U/L (46-116); Anion Gap 8 (7-16); Aspartate Amino Transferase 10 U/L (0-34); BUN/Creatinine Ratio 7 Ratio (12-20); Bilirubin,Total 0.4 mg/dL (0.3-1.2); Blood Urea Nitrogen 32 mg/dL (9-23); Calcium 7.9 mg/dL (8.3-10.6); Calcium (Corrected) 8.6 mg/dL (8.5-10.1); Carbon Dioxide 30.5 mMol/L (20.0-31.0); Chloride 99 mMol/L (98-107); Creatinine (Component) 4.4 mg/dL (0.6-1.3); Estimated Creatinine Clearance 27.4 mL/min (>60); Globulin 2.9 gm/dL (2.3-3.5); Glucose 88 mg/dL (74-106); Magnesium 2.1 mg/dL (1.6-2.6); Osmolality,Calculated 279 (275-295); Phosphorous 5.9 mg/dL (2.4-5.1); Potassium 4.4 mMol/L (3.4-5.1); Sodium 137 mMol/L (136-145); eGFR 15 See Note
[2025-04-14] MEDS: HYDROcodone/APAP 10/325 TAB PO ×2 (07:18→16:59)
[2025-04-14] MEDS: PANTOPRAZOLE 40 MG TABLET PO (08:18)
[2025-04-14] MEDS: AMIODARONE HCL 200 MG TABLET PO ×2 (08:18→20:56)
[2025-04-14] MEDS: SEVELAMER CARBONATE 800 MG TABLET PO ×3 (08:18→16:59)
--- NOTE | 2025-04-14 09:33 | PC.SS ---
Addendum entered by Gabriela Garcia 04/14/25 15:24: SS follow up note; SS was contacted by Ingrid from [facility] and she informed SS she met with patient at bedside and he was agreeable to purse hospice services, however mentioned he needed possibly until tomorrow to confirm with the people he rents a room from and his that he is able to discharge back home on hospice. SS followed up with Dr. Burton and he informed SS that patient is not medically cleared at the time. Dr. Spann will see patient tomorrow and decide if patient will need surgery. Patient agreeable to discharge home on hospice when medically cleared. [place] will deliver hospital bed, 02, wheelchair and Mo lift tomorrow. Addendum entered by Gabriela Garcia 04/14/25 12:29: SS follow up note; SS met with patient at bedside to discuss discharge plan and inform him that insurance did not approve SNF auth. SS contacted patient's , Sophia while at bedside. SS informed Sophia that Insurance denied SNF, however SS submitted for [facility] and informed patient if he would be agreeable for SS to expand the search, SS expanded the search, however no SNF's are accepting at the time. SS informed Sophia that patient could discharge home with HH. Sophia reported that HH would not be able to accommodate patient with pain management, however Sophia suggested Hospice , which was a conversation that had been discussed during the admission. Patient reported he would like to discuss discharge options with his . Sophia informed SS most likely she would purse hospice services. SS will stand by for further needs. Addendum entered by Gabriela Garcia 04/14/25 11:21: SS follow up note; SS updated Team A. Dr. Burton requested to speak to Des's Dr. Mitchell Bobby and did a Peer to Peer. Dr. Bobby informed Dr. Burton that he was not going to authorize SNF however patient could discharge under residential care. SS will meet with patient and discuss discharge options with patient. SS will standb by for further need. Original Note: SS follow up note; SS contacted patient's insurance, Des to check status on auth and spoke to madiha Quinn SS informed [place] that insurance auth was not approved for SNF. However patient would qualify for HH. [place] informed SS that they will be the onces to set up HH. SS will follow up with patient and patient's to update them. SS will stand by for further needs.
[2025-04-14] MEDS: HYDROmorphone INJ 2 MG/ML VIAL 0.5 MG IVP (09:52)
--- NOTE | 2025-04-14 13:12 | PD.RESPRO ---
Documentation for date of: 04/14/25 Subjective Subjective Interval history: Overnight, no acute events reported. Patient seen and examined at bedside. Patient's labs are unremarkable today. Patient's hemoglobin stable at 7.8. Patient continues to have right digit pain, and given x 1 of IV Dilaudid. Will also increase patient's pain meds to morphine 45 mg 3 times daily. Otherwise, patient is currently denied placement in SNF, but will try expanding search and see if patient is authorized. Exam Vital Signs Temp Pulse Resp BP Pulse Ox O2 Del Method O2 Flow Rate 97.9 F 66 18 109/63 98 Nasal Cannula 2 04/14/25 12:00 04/14/25 12:00 04/14/25 12:00 04/14/25 12:00 04/14/25 12:00 04/14/25 12:00 04/14/25 12:00 FiO2 50 04/13/25 08:00 Narrative Exam General: AO x 3, no acute distress HEENT: NC/AT, no scleral icterus, no conjunctival pallor, MMM Lungs: Clear CHRISTIANO Cardio: Normal S1/S2, irregular, no murmurs, no JVD Abdomen: Soft, non-tender, no palpable masses, peristalsis present, no guarding or rebound Extremities: Right BKA with cyanotic changes which have slightly improved, left distal leg amputation above ankle level with no discharge noted, right upper extremity digits show necrotic changes at the tips and extending proximally, swelling CHRISTIANO LE up to low abdomen Skin: Right upper extremity digits show necrotic changes at the tips Neuro: No focal neurological deficits, motor and sensory intact Objective Labs 04/14/25 05:39 04/14/25 05:39 Labs: Laboratory Results - last 24 hr 04/13/25 04/13/25 04/14/25 11:20 18:24 05:39 WBC 7.3 7.7 RBC 2.82 L 2.52 L Hgb 8.6 L D 7.8 L Hct 26.5 L D 24.0 L MCV 94 95 MCH 30.5 31.0 MCHC 32.5 32.5 RDW Std Deviation 66.3 H 69.2 H Plt Count 115 L 103 L Neut % (Auto) 75 72 Lymph % (Auto) 10 12 [place] % (Auto) 9 10 Eos % (Auto) 4 5 Baso % (Auto) 1 0 Neut # (Auto) 5.5 5.5 Lymph # (Auto) 0.7 L 0.9 L [place] # (Auto) 0.7 0.8 Eos # (Auto) 0.3 0.4 Baso # (Auto) 0.0 0.0 Immature Gran # (Auto) 0.12 H 0.09 H Absolute Nucleated RBC 0.00 0.00 Immature Gran % 2 H 1 H Nucleated RBC % 0 0 Sodium 137 Potassium 4.4 Chloride 99 Carbon Dioxide 30.5 Anion Gap 8 BUN 32 H Creatinine 4.4 H* Estim Creat Clear Calc 27.4 L eGFR 15 L BUN/Creatinine Ratio 7 L Glucose 88 Calculated Osmolality 279 Calcium 7.9 L Corrected Calcium 8.6 Phosphorus 5.9 H Magnesium 2.1 Total Bilirubin 0.4 AST 10 ALT 7 L Alkaline Phosphatase 83 Total Protein 6.0 Albumin 3.1 L Globulin 2.9 Albumin/Globulin Ratio 1.1 L Blood Type A Positive Antibody Screen NEGATIVE Crossmatch See Detail Blood Bank Wristband ID Yes Blood Bank Comment PLATP Ready ABG Interpretation ABG results: 03/14/25 03/14/25 03/14/25 14:44 16:44 18:53 ABG pH 7.03 L* 7.04 L* 7.10 L* ABG pCO2 43 50 H 46 ABG pO2 86 128 H D 57 L* D ABG HCO3 11 L 13 L 14 L ABG O2 Saturation 91 97 78 L ABG Base Excess -19 L -17 L -15 L VBG pH VBG pCO2 VBG pO2 VBG Base Excess 03/14/25 03/15/25 03/15/25 21:20 05:07 12:28 ABG pH 7.21 L D 7.41 D ABG pCO2 32 D 31 L ABG pO2 116 H D 74 L D ABG HCO3 13 L 20 ABG O2 Saturation 97 95 ABG Base Excess -14 L -4 L VBG pH 7.43 VBG pCO2 34 L VBG pO2 37 VBG Base Excess -1 03/16/25 03/16/25 03/16/25 04:51 11:48 19:30 ABG pH 7.46 H 7.22 L D 7.38 D ABG pCO2 29 L 66 H D 48 D ABG pO2 78 L 79 L 236 H D ABG HCO3 21 27 H 29 H ABG O2 Saturation 96 91 100 H ABG Base Excess -2 -2 3 VBG pH VBG pCO2 VBG pO2 VBG Base Excess 03/17/25 03/18/25 03/19/25 04:53 09:27 04:46 ABG pH 7.38 7.35 ABG pCO2 49 H 48 ABG pO2 78 L D 92 ABG HCO3 29 H 26 ABG O2 Saturation 95 98 ABG Base Excess 3 0 VBG pH 7.34 VBG pCO2 54 D VBG pO2 34 VBG Base Excess 2 03/24/25 04/01/25 04/01/25 22:00 04:53 15:50 ABG pH 7.33 L 7.23 L ABG pCO2 48 62 H ABG pO2 233 H 102 ABG HCO3 25 26 ABG O2 Saturation 101 H 98 ABG Base Excess -1 -2 VBG pH 7.24 L VBG pCO2 57 H VBG pO2 51 VBG Base Excess -3 04/01/25 04/02/25 04/03/25 18:40 04:45 05:17 ABG pH 7.24 L 7.24 L 7.31 L ABG pCO2 61 H 59 H 56 H ABG pO2 207 H D 203 H 123 H D ABG HCO3 26 25 28 H ABG O2 Saturation 101 H 101 H 100 H ABG Base Excess -2 -3 2 VBG pH VBG pCO2 VBG pO2 VBG Base Excess 04/04/25 05:02 ABG pH 7.33 L ABG pCO2 51 H ABG pO2 114 H ABG HCO3 27 H ABG O2 Saturation 100 H ABG Base Excess 1 VBG pH VBG pCO2 VBG pO2 VBG Base Excess Quality Measures Quality Measures VTE prophylaxis Assessment & Plan Assessment Current Active Medications: Generic Name Dose Route Start Last Admin Trade Name Freq PRN Reason Stop Dose Admin Acetaminophen 650 mg 04/13/25 09:13 Acetaminophen 325 Mg Tablet PO 04/19/25 11:34 Q6HR PRN pain 1-3 OR Fever >100.4 Protocol Hydrocodone Bitart/Acetaminophen 1 tab 04/12/25 07:25 04/14/25 07:18 Hydrocodone/Apap 10/325 Tab PO 04/16/25 12:05 1 tab Q6HR PRN Administration PAIN SCALE 4-10(Mod-Sev Amiodarone HCl 200 mg 04/05/25 09:00 04/14/25 08:18 Amiodarone Hcl 200 Mg Tablet PO 05/05/25 08:59 200 mg BID MONTSERRAT Administration Apixaban 2.5 mg 04/08/25 10:15 04/12/25 20:53 Apixaban 2.5 Mg Tablet PO 05/08/25 10:14 2.5 mg BID MONTSERRAT Administration Artificial Tears 0 drop 04/04/25 21:37 04/04/25 21:53 Artificial Tears 225 Drop/15 Ml Btl BOTH EYES 05/04/25 21:36 2 drop PRN PRN Administration TO KEEP EYES MOIST Aspirin 81 mg 04/12/25 14:00 04/12/25 13:54 Aspirin Ec 81 Mg Tabec PO 05/12/25 13:59 81 mg QDAY MONTSERRAT Administration Heparin Sodium (Porcine) 3,800 unit 04/13/25 16:48 04/13/25 17:12 Heparin Sod Inj 1000 Unit/Ml Vial 10 Ml INDWELLCAT 04/27/25 16:47 3,800 unit PRN PRN Administration DIALYSIS Albumin Human 25 gm in 100 mls @ 100 mls/hr 04/01/25 07:37 04/13/25 19:38 Albuminar-25 Ivpb IV Infused PRN PRN Infusion DIALYSIS Levalbuterol HCl 0.31 mg 03/28/25 10:24 03/31/25 00:37 Levalbuterol Rt 0.31 Mg/3 Ml Nebu INH 04/19/25 12:14 0.31 mg Q6HRRT PRN Administration Wheezing Morphine Sulfate 30 mg 04/12/25 14:00 04/14/25 05:06 Morphine Sulf 15 Mg Tabcr PO 04/17/25 13:59 30 mg TID MONTSERRAT Administration Protocol Pantoprazole Sodium 40 mg 04/08/25 09:00 04/14/25 08:18 Pantoprazole 40 Mg Tablet PO 05/08/25 08:59 40 mg QDAY MONTSERRAT Administration Pregabalin 50 mg 04/13/25 09:00 04/14/25 06:10 Pregabalin 50 Mg Capsule PO 05/13/25 08:59 50 mg TID MONTSERRAT Administration Sevelamer Carbonate 800 mg 04/03/25 12:00 04/14/25 12:15 Sevelamer Carbonate 800 Mg Tablet PO 05/03/25 11:59 800 mg TIDWM MONTSERRAT Administration Sodium Chloride 3 ml 03/31/25 06:26 Sodium Cl Rt Marjorie 3% 4 Ml Nebu (Non-Formulary) INH 04/16/25 18:59 Q6HRRT PRN To induce cough Zolpidem Tartrate 5 mg 04/10/25 21:00 04/13/25 20:59 Zolpidem 5 Mg Tablet PO 05/10/25 20:59 5 mg HS MONTSERRAT Administration Plan 49-year-old male with past medical history of DM2, hypertension, ESRD (HD ), HFpEF (EF 55% on 2021), and right BKA due to osteomyelitis was admitted to the ICU on 03/14/2025 for acute hypoxic respiratory failure, acute encephalopathy, and shock. He was extubated and downgraded to telemetry on 03/20/2025. #Acute blood loss anemia #Macrocytic anemia. #Thrombocytopenia Patient's hemoglobin was downtrending from 11.9 on admission Hemoglobin 6 and platelets 98 in the AM and on repeat was 4.8, but patient asymptomatic. Some bleeding from amputation site. 3 units PRBC, 1 FFP, 1 platelets to be transfused Plan: Continue to monitor daily CBC Transfuse if Hgb less than 7. #Right ulnar artery occlusion #Right upper extremity multiple digit necrosis #Left lower extremity gangrene/tissue necrosis s/p guillotine amputation distal #Peripheral Vascular disease, severe Abdomen CTA with runoff that showed occlusion of multiple arteries including the left radial, gluteal, and tibial arteries as well as 90% stenosis of the left superficial femoral artery Also showed 80% stenosis of right superficial femoral artery. Patient had his angiogram done yesterday showed right ulnar artery to be totally occluded or absent and there was no CAD. S/p guillotine amputation on 04/01/2025 Spoke with orthopedic surgeon who stated that at this time there was no need for amputation of the hand digits unless these became infected. Also with these became infected patient will have to be transferred to a tertiary care center as hand potation's are not in the hospital. Plan: Continue aspirin 81 mg daily Increase morphine oral extended release to 45 mg three times daily for better management of patient's pain [place] prn q6h Added pregabalin 50mg TID for neuropathic pain Discontinued Dilaudid in preparation for possible discharge and as morphine has been increased to TID Wound care on board #A-fib with RVR, rate controlled #MAT #SVT Patient again went into SVT last night and was shocked again, but on repeat EKG showed to be in A-fib RVR. Patient again went into SVT and received adenosine 6mg x1 and adenosine 12mg x1 before being cardioverted. Repeat EKG showed what appears to be MAT. [id number] score of 3 points indicating 3.2% risk of stroke per year HAS-BLED score of 5 points Patient had his angiogram done 03/31/2025 showed right ulnar artery to be totally occluded or absent and there was no CAD. Cardiology recommended to stop patient's aspirin, Plavix, metoprolol, and statin Patient had a rapid response called on 04/01/2025 was tachycardic in the 140s and EKG looked to be like a SVT. Patient was cardioverted and was then in the heart rates in the 60s. Plan: Continue amiodarone 200 mg twice daily Continue Eliquis 2.5 mg BID, ok by surgery but held by cardio Keep Potassium >4 and Mg >2 [employer] consulted, appreciate recommendations #Scrotal swelling Patient today complained of scrotal swelling Could be do to fluid overload status less likely due to torsion or hernia Testicular US showed no torsion nor masses Plan: Continue HD with fluid removal and fluid restriction #HFpEF (EF 50-55% on 2024). Echo on 03/16/2025 showed EF of 45 to 50% and septal dyskinesis. Echo on 03/23/2025 shows some improvement and left ventricle function with an EF of 50 to 55% Plan: Will continue with hemodialysis with fluid removal. Daily weights. Strict JENN's. fluid restriction. #ESRD (HD on ). Patient was on hemodialysis and had AV fistula, but was clotted therefore cannot be used. Tunnedled dialysis cath placed 03/26/2025 Plan: Continue hemodialysis as scheduled. Continue sevelamer 800 mg 3 times daily Spool [address]. Pleitez following, appreciate recommendations Avoid nephrotoxic agents. Renally dose medications. #Transaminitis, resolved #Hepatomegaly. Hepatitis panel negative and abdominal ultrasound that shows some hepatomegaly with possible cirrhosis versus hepatocellular disease. Plan: Continue monitoring daily labs #Hx of DM2. A1c 5.4 No need for ISS #Acute Hypoxic resp failure in the setting of Left base PNA, improving #Stenotrophomonas maltophilia pneumonia, resolved . #Respiratory acidosis, resolved. #Septic shock, resolved. #Troponinemia, resolved #Hematemesis, resolved #HAGMA, resolved. #Lactic acidosis, resolved. #Staph Hemolyticus bacteremia, resolved (finished course of vancomycin 03/23-04/05) #CLABSI, resolved #Hyperbilirubinemia, resolved Hospital Maintenance: Disposition: Pending insurance auth for SNF placement under senior care plan Diet: renal DVT ppx: Eliquis held in lieu of acute bleed yesterday GI ppx: Protonix . Code status: DNR. Patient's plan and care discussed with my attending, Dr. Josephine Hawthorne MD PGY-2 Disclaimer: This note was dictated by speech recognition and even though it was carefully revised there may still be minor errors in mill hand due to voice recognition software. Attending Provider Attestation/Addendum I attest that I was physically present for the evaluation, physical examination, lab and imaging review of the patient with the residents. I discussed the case with the residents and agree with the findings and plans of care as documented above. At bedside today, patient appears comfortable, denies any new complaints. Has been saturating well on 3 L nasal cannula. Vital signs are stable. Lab results show stable hemoglobin at 7.8. Chemistry panel is stable as well except for his kidney function due to ESRD. Patient had hemodialysis session yesterday. Continues to be on pain regimen, pain has been well-controlled. Continues to be on amiodarone, rate controlled. Holding aspirin and Eliquis due to bleeding from his stump yesterday. Discussed Dr. Mitchell Bobby from his insurance company regarding his disposition, explained in detail about patient needing help with his daily activities as his both legs are amputated, has gangrene of both hands, will be on anticoagulation with increased risk of bleeding if patient has a fall or injury, he denied SNF placement and recommended discharge under senior care care. We will discussed with patient, case management regarding safe discharge plan. Wound care has been following, stated that she spoke with Dr. Spann who is planning to reevaluate patient tomorrow. Anticipate discharge in 24 hours if hemoglobin remains stable and if patient is cleared by surgery. Severo Burton MD
--- NOTE | 2025-04-14 13:33 | ESPR_ITS ---
<Statement entered by Yanci Villalobos MD - 04/15/25 13:03> The patient examined by me personally has appears to be doing clinically well now hemoglobin remained stable stable patient had bleeding from the stump which is stopped arterial bleed does not complain of chest pain shortness with anymore the plan to have discharge in a day or 2 evaluate the patient with PGY 2 Dr. Wilkinson and agree with the treatment plan recommendation as documented. Documentation for date of: 04/14/25 Subjective Subjective Interval history: Patient was seen and examined at bedside. No acute overnight events. Patient received blood transfusion yesterday, today his hemoglobin is stable at 7.8, his bleeding appears to be resolved. His vitals are stable blood pressure 109/63, pulse 66 and regular. His Eliquis and aspirin are on hold. Patient reported overnight he had episode of chest pain lasting approximately 1 to 2 hours while laying in bed, resolved spontaneously. Exam Vital Signs Temp Pulse Resp BP Pulse Ox O2 Del Method O2 Flow Rate 97.9 F 66 18 109/63 98 Nasal Cannula 2 04/14/25 12:00 04/14/25 12:00 04/14/25 12:00 04/14/25 12:00 04/14/25 12:00 04/14/25 12:00 04/14/25 12:00 FiO2 50 04/13/25 08:00 Narrative Exam Gen: Well-developed male. HEENT: NCAT, PERRLA, EOMI, MMM, anicteric conjunctivae. CVS: normal S1 and S2. RRR. No M/R/G. Resp: CTA B/L. No rhonchi, rales, crackles or wheezing. Abd: soft, non-tender, non-distended. BS+ in all 4 quadrants. MSK: S/p right BKA, stump appears necrotic, right thigh has blister. S/p left BKA, clean dressing. Dry gangrene over right 2nd and 3rd digits. Tip of left second digit appears necrotic. Neuro: CN II-XII grossly intact. Alert and oriented x3. Psych: appropriate mood and affect. Objective Labs 04/14/25 05:39 04/14/25 05:39 Labs: Laboratory Results - last 24 hr 04/13/25 04/13/25 04/14/25 11:20 18:24 05:39 WBC 7.3 7.7 RBC 2.82 L 2.52 L Hgb 8.6 L D 7.8 L Hct 26.5 L D 24.0 L MCV 94 95 MCH 30.5 31.0 MCHC 32.5 32.5 RDW Std Deviation 66.3 H 69.2 H Plt Count 115 L 103 L Neut % (Auto) 75 72 Lymph % (Auto) 10 12 [place] % (Auto) 9 10 Eos % (Auto) 4 5 Baso % (Auto) 1 0 Neut # (Auto) 5.5 5.5 Lymph # (Auto) 0.7 L 0.9 L [place] # (Auto) 0.7 0.8 Eos # (Auto) 0.3 0.4 Baso # (Auto) 0.0 0.0 Immature Gran # (Auto) 0.12 H 0.09 H Absolute Nucleated RBC 0.00 0.00 Immature Gran % 2 H 1 H Nucleated RBC % 0 0 Sodium 137 Potassium 4.4 Chloride 99 Carbon Dioxide 30.5 Anion Gap 8 BUN 32 H Creatinine 4.4 H* Estim Creat Clear Calc 27.4 L eGFR 15 L BUN/Creatinine Ratio 7 L Glucose 88 Calculated Osmolality 279 Calcium 7.9 L Corrected Calcium 8.6 Phosphorus 5.9 H Magnesium 2.1 Total Bilirubin 0.4 AST 10 ALT 7 L Alkaline Phosphatase 83 Total Protein 6.0 Albumin 3.1 L Globulin 2.9 Albumin/Globulin Ratio 1.1 L Blood Type A Positive Antibody Screen NEGATIVE Crossmatch See Detail Blood Bank Wristband ID Yes Blood Bank Comment PLATP Ready ABG Interpretation ABG results: 03/14/25 03/14/25 03/14/25 14:44 16:44 18:53 ABG pH 7.03 L* 7.04 L* 7.10 L* ABG pCO2 43 50 H 46 ABG pO2 86 128 H D 57 L* D ABG HCO3 11 L 13 L 14 L ABG O2 Saturation 91 97 78 L ABG Base Excess -19 L -17 L -15 L VBG pH VBG pCO2 VBG pO2 VBG Base Excess 03/14/25 03/15/25 03/15/25 21:20 05:07 12:28 ABG pH 7.21 L D 7.41 D ABG pCO2 32 D 31 L ABG pO2 116 H D 74 L D ABG HCO3 13 L 20 ABG O2 Saturation 97 95 ABG Base Excess -14 L -4 L VBG pH 7.43 VBG pCO2 34 L VBG pO2 37 VBG Base Excess -1 03/16/25 03/16/25 03/16/25 04:51 11:48 19:30 ABG pH 7.46 H 7.22 L D 7.38 D ABG pCO2 29 L 66 H D 48 D ABG pO2 78 L 79 L 236 H D ABG HCO3 21 27 H 29 H ABG O2 Saturation 96 91 100 H ABG Base Excess -2 -2 3 VBG pH VBG pCO2 VBG pO2 VBG Base Excess 03/17/25 03/18/25 03/19/25 04:53 09:27 04:46 ABG pH 7.38 7.35 ABG pCO2 49 H 48 ABG pO2 78 L D 92 ABG HCO3 29 H 26 ABG O2 Saturation 95 98 ABG Base Excess 3 0 VBG pH 7.34 VBG pCO2 54 D VBG pO2 34 VBG Base Excess 2 03/24/25 04/01/25 04/01/25 22:00 04:53 15:50 ABG pH 7.33 L 7.23 L ABG pCO2 48 62 H ABG pO2 233 H 102 ABG HCO3 25 26 ABG O2 Saturation 101 H 98 ABG Base Excess -1 -2 VBG pH 7.24 L VBG pCO2 57 H VBG pO2 51 VBG Base Excess -3 04/01/25 04/02/25 04/03/25 18:40 04:45 05:17 ABG pH 7.24 L 7.24 L 7.31 L ABG pCO2 61 H 59 H 56 H ABG pO2 207 H D 203 H 123 H D ABG HCO3 26 25 28 H ABG O2 Saturation 101 H 101 H 100 H ABG Base Excess -2 -3 2 VBG pH VBG pCO2 VBG pO2 VBG Base Excess 04/04/25 05:02 ABG pH 7.33 L ABG pCO2 51 H ABG pO2 114 H ABG HCO3 27 H ABG O2 Saturation 100 H ABG Base Excess 1 VBG pH VBG pCO2 VBG pO2 VBG Base Excess Quality Measures Quality Measures VTE prophylaxis Assessment & Plan Assessment Current Active Medications: Generic Name Dose Route Start Last Admin Trade Name Freq PRN Reason Stop Dose Admin Acetaminophen 650 mg 04/13/25 09:13 Acetaminophen 325 Mg Tablet PO 04/19/25 11:34 Q6HR PRN pain 1-3 OR Fever >100.4 Protocol Hydrocodone Bitart/Acetaminophen 1 tab 04/12/25 07:25 04/14/25 07:18 Hydrocodone/Apap 10/325 Tab PO 04/16/25 12:05 1 tab Q6HR PRN Administration PAIN SCALE 4-10(Mod-Sev Amiodarone HCl 200 mg 04/05/25 09:00 04/14/25 08:18 Amiodarone Hcl 200 Mg Tablet PO 05/05/25 08:59 200 mg BID MONTSERRAT Administration Apixaban 2.5 mg 04/08/25 10:15 04/12/25 20:53 Apixaban 2.5 Mg Tablet PO 05/08/25 10:14 2.5 mg BID MONTSERRAT Administration Artificial Tears 0 drop 04/04/25 21:37 04/04/25 21:53 Artificial Tears 225 Drop/15 Ml Btl BOTH EYES 05/04/25 21:36 2 drop PRN PRN Administration TO KEEP EYES MOIST Aspirin 81 mg 04/12/25 14:00 04/12/25 13:54 Aspirin Ec 81 Mg Tabec PO 05/12/25 13:59 81 mg QDAY MON[place] Administration Heparin Sodium (Porcine) 3,800 unit 04/13/25 16:48 04/13/25 17:12 Heparin Sod Inj 1000 Unit/Ml Vial 10 Ml INDWELLCAT 04/27/25 16:47 3,800 unit PRN PRN Administration DIALYSIS Albumin Human 25 gm in 100 mls @ 100 mls/hr 04/01/25 07:37 04/13/25 19:38 Albuminar-25 Ivpb IV Infused PRN PRN Infusion DIALYSIS Levalbuterol HCl 0.31 mg 03/28/25 10:24 03/31/25 00:37 Levalbuterol Rt 0.31 Mg/3 Ml Nebu INH 04/19/25 12:14 0.31 mg Q6HRRT PRN Administration Wheezing Morphine Sulfate 45 mg 04/14/25 14:00 Morphine Sulf 15 Mg Tabcr PO 04/19/25 13:59 TID MONTSERRAT Protocol Pantoprazole Sodium 40 mg 04/08/25 09:00 04/14/25 08:18 Pantoprazole 40 Mg Tablet PO 05/08/25 08:59 40 mg QDAY MON[place] Administration Pregabalin 50 mg 04/13/25 09:00 04/14/25 06:10 Pregabalin 50 Mg Capsule PO 05/13/25 08:59 50 mg TID MONTSERRAT Administration Sevelamer Carbonate 800 mg 04/03/25 12:00 04/14/25 12:15 Sevelamer Carbonate 800 Mg Tablet PO 05/03/25 11:59 800 mg TIDWM MON[place] Administration Sodium Chloride 3 ml 03/31/25 06:26 Sodium Cl Rt Marjorie 3% 4 Ml Nebu (Non-Formulary) INH 04/16/25 18:59 Q6HRRT PRN To induce cough Zolpidem Tartrate 5 mg 04/10/25 21:00 04/13/25 20:59 Zolpidem 5 Mg Tablet PO 05/10/25 20:59 5 mg HS MONTSERRAT Administration Plan 49-year-old male with past medical history of DM2, hypertension, ESRD (HD /), HFpEF (EF 55% on 2021), and right BKA due to osteomyelitis was initially admitted to the ICU on 03/14/2025 for acute hypoxic respiratory failure, acute encephalopathy, and shock. He was subsequently extubated and downgraded to telemetry on 03/20/2025 for continuation of care. #Postop bleeding from left BKA, resolved. - hemoglobin 4.8, down from 7 from yesterday. - 3 units of PRBCs were transfused by primary team along with 1 unit of FFP and 1 unit of PLT. - Eliquis and aspirin were held. - General surgery on board. #Status post acute non-ST segment elevation myocardial infarction, NSTEMI possible type 2 troponin versus NSTEMI. #SVT episodes. #Afib, rate controlled. #HFpEF (EF 45-50%). Patient s/p intubation and pressor support in ICU for shock, distributive secondary to sepsis versus cardiogenic. Patient initially presented to ED in SVT and required shock x1. Troponin initially 1.856 uptrended to 7.899 peak. Patient was treated for pneumonia. Patient was able to wean off pressors, extubated, now downgraded to tele. CT LER showed diffuse stenosis on the arteries of the LLE, occlusions in almost all major arteries. Echo done on 03/16/2025 showed LV appears normal with EF 45-50%. Septal dyskinesis is seen, RV appears normal with RVSP 50 mmHg. Mildly dilated LA & RA Mild mitral regurgitation Mild-Moderate TR. 03/21, patient had 2 rapid response events for SVT in the 170-200s which self converted in minutes. 04/01 patient had 2 rapid response calls due to episodes of SVT, was started on amiodarone drip and subsequently underwent electrical cardioversion in ICU. Plan: - continue amiodarone 200 mg BID PO. - Hold Eliquis 2.5 mg BID in setting of bleeding. - Maintain K >4.0 and Mag >2.0. - Continue dialysis per nephrology. #Extensive atherosclerotic cardiovascular disease with bilateral femoral artery occlusions and distal trifurcation disease with gangrenous changes, ruled out. #Vasopressor-induced vasoconstriction and gangrene of B/L fingers, sequelae. #Left foot gangrene, s/p BKA. -Patient has history of right extremity BKA due to severe PAD. This admission after severe shock requiring pressor support patient subsequently developed ischemia of the right and left fingertips. Vascular surgeon stated that the patient is not a candidate at this time for revascularization, however stated that would discuss case with general surgeon. Likely upper extremity digits affected by vasopressor support in combination with severe PAD causing limb ischemia. Angiography showed Normal, nonobstructive epicardial coronary arteries. Mild left ventricular dysfunction, ejection fraction 50%. Right ulnarl artery totally occluded with excellent flow from the radial artery. Left lower extremity angiogram showed widely patent SFA and trifurcation with distal dorsalis pedis 100% occlusion. Right lower extremity angiogram also showed no significant obstructive lesions until trifurcation( amputated BKA).Discontinued on aspirin, plavix and statin after angiography. Plan: - Hold aspirin 81 mg daily in setting of bleeding. Rest of conditions to continue current management per primary team: #Staph hemolyticus bacteremia, treated. #Septic shock, resolved. #Acute hypoxic respiratory failure. #Community-acquired pneumonia, Stenotrophomonas maltophilia. #ESRD (HD on ). #History of type 2 diabetes. #Respiratory acidosis, resolved. #HAGMA, resolved. #Lactic acidosis, resolved. #Hyperkalemia, resolved. #Shock liver, resolved. #Possible GI bleed. #Macrocytic anemia. #Thrombocytopenia. #Hematemesis, resolved. #Hypoglycemia, resolved. Discussed the patient with my attending Dr Villalobos. Minh Smith MD, PGY 2. Disclaimer: This note was dictated by speech recognition. Minor errors in federal district clerk may be present due to voice recognition software.
[2025-04-14] MEDS: Morphine Sulf 15 MG TABCR 45 MG PO ×2 (13:57→22:28)
--- NOTE | 2025-04-14 14:43 | EKG_ITS ---
[facility] Test Date: 2025-04-14 Pat Name: CLEMENTE PERAZA [facility] Gender[facility] International Manager: HUGO : 1975 Requested By: Minh Smith Order Number: [id number] Reading MD: Minh Smith Measurements Intervals [place] Rate: 63 P: 62 GA: 183 QRS: 101 QRSD: 129 T: 60 QT: 480 QTc: 493 Interpretive Statements SINUS RHYTHM WITH SINUS ARRHYTHMIA MARKED RIGHT AXIS DEVIATION RIGHT BUNDLE BRANCH BLOCK Compared to ECG 04/01/2025 08:33:48 Right-axis deviation now present Left posterior fascicular block no longer present Myocardial infarct finding no longer present ST (T wave) deviation no longer present /store/S0/[id number].pdf
--- NOTE | 2025-04-14 17:33 | PC.NURSE ---
Dr. Johnson notified that FFP not transfused yesturday. He is covering for Dr. Hawthorne. He will notify the primary team.
[2025-04-14] MEDS: ZOLPIDEM 5 MG TABLET PO (20:56)
[2025-04-15] VITALS (29 sets, daily range): BP systolic 82–130; BP diastolic 46–103; PULSE 60–91; RESP 11–19; TEMP 36.1–36.9; O2SAT 92–98
[2025-04-15 06:02] LABS: Basophils # (Auto) 0.1 Thou/mm3 (0.0-0.2); Basophils % (Auto) 1 % (0-2.5); Eosinophils # (Auto) 0.6 Thou/mm3 (0.0-0.5); Eosinophils % (Auto) 6 % (0-10); Hematocrit 25.8 % (41.0-53.0); Immature Granulocytes % (Auto) 1 % (0-0); Immature Granulocytes Auto 0.13 Thou/mm3 (0.00-0.00); Lymphocytes # (Auto) 0.9 Thou/mm3 (1.0-4.8); Lymphocytes % (Auto) 10 % (10-50); Mean Corpuscular HGB Conc 31.4 g/dl (31.0-37.0); Mean Corpuscular Hemoglobin 30.9 pg (25.0-35.0); Mean Corpuscular Volume 99 fL (80-100); Monocytes # (Auto) 0.8 Thou/mm3 (0.0-0.8); Monocytes % (Auto) 9 % (0-12); Neutrophils # (Auto) 6.8 Thou/mm3 (1.8-7.7); Neutrophils % (Auto) 73 % (37-80); Nucleated Red Blood Cell % 0 /100 WBC (0); Platelet Count 110 Thou/mm3 (140-440); RDW Standard Deviation 68.3 fL (35.1-43.9); Red Blood Count 2.62 Miln/mm3 (4.50-5.90); White Blood Count 9.3 Thou/mm3 (3.8-10.6)
[2025-04-15 06:06] LABS: Hemoglobin 8.1 g/dL (13.5-16.0)
[2025-04-15] MEDS: Morphine Sulf 15 MG TABCR 45 MG PO ×3 (06:13→22:51)
[2025-04-15] MEDS: PREGABALIN 50 MG CAPSULE PO ×3 (06:13→22:19)
[2025-04-15 06:30] LABS: Alanine Aminotransferase < 7 U/L (10-49); Albumin, Serum 3.4 gm/dL (3.5-5.0); Albumin/Globulin Ratio 1.1 (1.2-2.2); Alkaline Phosphatase 88 U/L (46-116); Anion Gap 11 (7-16); Aspartate Amino Transferase 14 U/L (0-34); BUN/Creatinine Ratio 8 Ratio (12-20); Bilirubin,Total 0.3 mg/dL (0.3-1.2); Blood Urea Nitrogen 44 mg/dL (9-23); Calcium 8.4 mg/dL (8.3-10.6); Calcium (Corrected) 8.9 mg/dL (8.5-10.1); Carbon Dioxide 27.3 mMol/L (20.0-31.0); Chloride 95 mMol/L (98-107); Creatinine (Component) 5.4 mg/dL (0.6-1.3); Estimated Creatinine Clearance 22.3 mL/min (>60); Globulin 3.1 gm/dL (2.3-3.5); Glucose 80 mg/dL (74-106); Magnesium 2.3 mg/dL (1.6-2.6); Osmolality,Calculated 276 (275-295); Phosphorous 7.4 mg/dL (2.4-5.1); Potassium 4.6 mMol/L (3.4-5.1); Sodium 133 mMol/L (136-145); Total Protein 6.5 gm/dL (5.7-8.2); eGFR 12 See Note
[2025-04-15] MEDS: ALBUMIN HUMAN 25% IVPB 25 GM/100 ML BTL IV (08:49)
[2025-04-15] MEDS: HEPARIN SOD INJ 1000 UNIT/ML VIAL 10 ML 3800 UNIT INDWELLCAT (09:53)
--- NOTE | 2025-04-15 11:12 | PC.SS ---
Addendum entered by Gabriela Garcia 04/15/25 13:54: SS follow up note; SS was contacted by patient's nurse, Marlene and she informed SS that patient informed her that he was not able to discharge today do to the room not being ready. SS met with patient at bedside and informed him that discharge orders were in and he reported that his and her daughter needed to clean the room out and had arranged for [facility] to deliver DME tomorrow between 10-12PM. Sophia informed SS that she won't be off work until 3PM and is requesting for SS to set up transportation at 3PM tomorrow. SS contacted [facility] and she informed SS that they will deliver DME tomorrow as requested by family. SS updated Team A. Original Note: SS attempted to set up transportation with [facility], X2 times, however they informed SS that [facility] is not the [employer] for patient and they are not able to provide transportation. SS will have Transfer, Nurse Fanny sign [facility] form. SS contacted Ingrid from [facility] and she informed SS DME would be delivered around noon today. Jane requested for Transportation to be set up mid afternoon. SS contacted patient's , Sophia and updated her as well.
[2025-04-15] MEDS: SEVELAMER CARBONATE 800 MG TABLET PO ×2 (11:22→17:30)
[2025-04-15] MEDS: PANTOPRAZOLE 40 MG TABLET PO (11:23)
[2025-04-15] MEDS: HYDROcodone/APAP 10/325 TAB PO ×2 (11:23→17:30)
[2025-04-15] MEDS: AMIODARONE HCL 200 MG TABLET PO ×2 (11:24→21:28)
--- NOTE | 2025-04-15 12:08 | ESPR_ITS ---
Documentation for date of: 04/15/25 Subjective Subjective Interval history: Pt is seen and examined Pt is awake and alert Pt had HD today Exam Vital Signs Temp Pulse Resp BP Pulse Ox O2 Del Method O2 Flow Rate 98.4 F 91 18 118/81 98 Nasal Cannula 2 04/15/25 10:16 04/15/25 11:24 04/15/25 10:16 04/15/25 11:24 04/15/25 10:16 04/15/25 04:00 04/15/25 10:16 FiO2 50 04/13/25 08:00 Narrative Exam awake and alert rt hand gangrene edema positive on oxygen Objective Labs 04/15/25 05:50 04/15/25 05:50 Labs: Laboratory Results - last 24 hr 04/15/25 05:50 WBC 9.3 RBC 2.62 L Hgb 8.1 L Hct 25.8 L MCV 99 MCH 30.9 MCHC 31.4 RDW Std Deviation 68.3 H Plt Count 110 L Neut % (Auto) 73 Lymph % (Auto) 10 [place] % (Auto) 9 Eos % (Auto) 6 Baso % (Auto) 1 Neut # (Auto) 6.8 Lymph # (Auto) 0.9 L [place] # (Auto) 0.8 Eos # (Auto) 0.6 H Baso # (Auto) 0.1 Immature Gran # (Auto) 0.13 H Absolute Nucleated RBC 0.00 Immature Gran % 1 H Nucleated RBC % 0 Sodium 133 L Potassium 4.6 Chloride 95 L Carbon Dioxide 27.3 Anion Gap 11 BUN 44 H Creatinine 5.4 H* D Estim Creat Clear Calc 22.3 L eGFR 12 L* BUN/Creatinine Ratio 8 L Glucose 80 Calculated Osmolality 276 Calcium 8.4 Corrected Calcium 8.9 Phosphorus 7.4 H Magnesium 2.3 Total Bilirubin 0.3 AST 14 ALT < 7 L Alkaline Phosphatase 88 Total Protein 6.5 Albumin 3.4 L Globulin 3.1 Albumin/Globulin Ratio 1.1 L ABG Interpretation ABG results: 03/14/25 03/14/25 03/14/25 14:44 16:44 18:53 ABG pH 7.03 L* 7.04 L* 7.10 L* ABG pCO2 43 50 H 46 ABG pO2 86 128 H D 57 L* D ABG HCO3 11 L 13 L 14 L ABG O2 Saturation 91 97 78 L ABG Base Excess -19 L -17 L -15 L VBG pH VBG pCO2 VBG pO2 VBG Base Excess 03/14/25 03/15/25 03/15/25 21:20 05:07 12:28 ABG pH 7.21 L D 7.41 D ABG pCO2 32 D 31 L ABG pO2 116 H D 74 L D ABG HCO3 13 L 20 ABG O2 Saturation 97 95 ABG Base Excess -14 L -4 L VBG pH 7.43 VBG pCO2 34 L VBG pO2 37 VBG Base Excess -1 03/16/25 03/16/25 03/16/25 04:51 11:48 19:30 ABG pH 7.46 H 7.22 L D 7.38 D ABG pCO2 29 L 66 H D 48 D ABG pO2 78 L 79 L 236 H D ABG HCO3 21 27 H 29 H ABG O2 Saturation 96 91 100 H ABG Base Excess -2 -2 3 VBG pH VBG pCO2 VBG pO2 VBG Base Excess 03/17/25 03/18/25 03/19/25 04:53 09:27 04:46 ABG pH 7.38 7.35 ABG pCO2 49 H 48 ABG pO2 78 L D 92 ABG HCO3 29 H 26 ABG O2 Saturation 95 98 ABG Base Excess 3 0 VBG pH 7.34 VBG pCO2 54 D VBG pO2 34 VBG Base Excess 2 03/24/25 04/01/25 04/01/25 22:00 04:53 15:50 ABG pH 7.33 L 7.23 L ABG pCO2 48 62 H ABG pO2 233 H 102 ABG HCO3 25 26 ABG O2 Saturation 101 H 98 ABG Base Excess -1 -2 VBG pH 7.24 L VBG pCO2 57 H VBG pO2 51 VBG Base Excess -3 04/01/25 04/02/25 04/03/25 18:40 04:45 05:17 ABG pH 7.24 L 7.24 L 7.31 L ABG pCO2 61 H 59 H 56 H ABG pO2 207 H D 203 H 123 H D ABG HCO3 26 25 28 H ABG O2 Saturation 101 H 101 H 100 H ABG Base Excess -2 -3 2 VBG pH VBG pCO2 VBG pO2 VBG Base Excess 04/04/25 05:02 ABG pH 7.33 L ABG pCO2 51 H ABG pO2 114 H ABG HCO3 27 H ABG O2 Saturation 100 H ABG Base Excess 1 VBG pH VBG pCO2 VBG pO2 VBG Base Excess Assessment & Plan Assessment and plan (1) Atherosclerosis of right lower extremity with gangrene: Status: Acute (2) CHF (congestive heart failure): Status: Acute (3) Leukocytosis: Status: Acute (4) CKD (chronic kidney disease) requiring chronic dialysis: Status: Acute Assessment and plan: Pt had HD today Pt is going home on hospice but want to continue HD c/w HD 3 times a week as out pt Procedures Arterial Line Size (Gauge): 20 (1) Atherosclerosis of right lower extremity with gangrene Qualifiers: Peripheral atherosclerosis artery type: [place] artery Qualified Code(s): I 70.261 - Atherosclerosis of [place] arteries of extremities with gangrene, right leg
--- NOTE | 2025-04-15 13:00 | PC.WOUND ---
Dr. Spann at bedside. Left discarticulation dressing removed and assessed by provider. States no active bleeding, oozing due to required anticoagulation. Assisted with suture placement to lateral aspect of wound, tolerated well. Slow oozing noted from inferior portion, surgicel x2 and pressure dressing applied. Also See wound infrastructure developer.
[2025-04-15] MEDS: ONDANSETRON INJ 2 MG/ML INJ 2 ML 4 MG IVP (13:07)
--- NOTE | 2025-04-15 13:45 | ESDS_ITS ---
Planned Discharge Date 04/15/25 DS: Providers Provider Date of admission: 03/14/25 17:31 Primary care physician: Margarita Carolina PA-C Admitting Provider: Yessi Putnam MD Attending Provider on Admission: Severo Burton MD Consults: 03/14/25 18:03 Consult to Nephrology Routine Comment: Consulting Provider: Héctor Pleitez 03/15/25 10:27 Consult to Cardiology Routine Comment: Consulting Provider: Yanci Villalobos 03/17/25 12:29 Referral Registered Dietitian Routine Comment: 03/17/25 18:05 Referral - Racing Mechanic Routine Service Needed for Transfer: Interventional Cardiology Addl Comments:: Patient needs peripheral angioplasty of L LE due to acute/chronic limb ischemia 03/20/25 17:51 Referral Physical Therapy Routine Comment: Physician Instructions: 03/23/25 10:02 Consult to Infectious Diseases Routine Comment: Consulting Provider: Mitchell Villegas 03/27/25 11:53 Referral Physical Therapy Routine Comment: Physician Instructions: 03/29/25 14:13 Referral Physical Therapy Stat Comment: Physician Instructions: 03/30/25 13:46 Consult to General Surgery Routine Comment: Consulting Provider: Keanu Spann 03/31/25 09:32 Consult to Orthopedic Routine Comment: Consulting Provider: Wolf Gonzalez 04/01/25 14:27 Consult to Infectious Diseases Stat Comment: DAPTOMYCIN Consulting Provider: Mitchell Villegas 04/05/25 12:56 Referral Physical Therapy Stat Comment: Physician Instructions: Instructions: Required for Ins Auth for SNF. 04/07/25 12:39 Referral Wound Care Routine Comment: Left ankle disarticulation site 04/14/25 15:27 Referral Hospice Routine Comment: 04/15/25 11:19 Referral OP Wound Healing Dept Routine Comment: Instructions: Necrosis x 4 extremities, vasopressor induced ischemia. S/p left ankle disarticulation with Dr. Spann pending formal BKA. Pending tissue bx. Attending Provider on DC: Severo Burton MD Discharging Provider: Severo Burton MD DS: Diagnosis Problem List Completed Was Problem List Reviewed/Reconciled?: Yes Hospital Course Hospital Course Hospital course: 49-year-old male with past medical history of DM2, hypertension, ESRD (HD T/), HFpEF (EF 55% on 2021), and right BKA due to osteomyelitis was admitted to the ICU on 03/14/2025 for acute hypoxic respiratory failure, acute encephalopathy, and shock. He was extubated and downgraded to telemetry on 03/20/2025. Patient had a prolonged hospital stay and he was in the ICU twice throughout his hospital stay. Initially patient came in with shock and was admitted by the ICU for total of 7 days where he had a complicated course given that he was on vasopressors and his left lower extremity became necrotic likely in the setting of chronic peripheral vascular disease and during this time he also had to be shocked due to unstable cardiac arrhythmia. Patient developed lower extremity and upper extremity digits ischemia contacted vascular surgery for possible transfer. They stated that at this time patient was too unstable to transfer at that the patient was not a candidate for revascularization therefore he would not have to have workup outpatient. Patient also had NSTEMI with elevated troponins, but given his initial poor prognosis cardiology stated to treat with heparin for now and that they would consider cardiac catheterization in the futu re, which was eventually done on 03/29/2025 and did not show any CAD and at the same time angiogram of upper extremities and lower extremity was done and showed occlusion of right ulnar artery. Patient was successfully extubated and he was alert and oriented therefore he was downgraded to the medical floors on 03/20/2025. Patient had remained stable throughout the hospital stay after he was downgraded from the ICU until 04/01/2025 where he had an episode of A-fib with RVR and he was hemodynamically stable after he was shocked again and he required to be upgraded to the ICU for vasopressors at this time. This time he was shortly after downgraded back to the medical floors on 04/03/2025. During his stay in the ICU patient did undergo left lower extremity amputation on 04/01/2025 and since then patient did not have any further arrhythmias or episodes of hypotension. Patient did have a lot of pain which was not being controlled with any pregabalin or gabapentin and was only being able to be controlled with Dilaudid. Patient was switched to p.o. morphine extended release with he stated that he significantly improved his pain and manage his pain to a bearable state. At this time patient was stable enough to start looking for placement, but after multiple days of pending insurance authorization patient did not get authorization for SNF placement. At this time patient and family decided to go home with hospice as they would get the care he needed at home. At the time of discharge patient was stable enough to be discharged home with hospice. Discharge plan: Please follow-up with your primary care physician within 1 week upon discharge Please follow-up with cardiology, Dr. Villalobos, within 1-2 week upon discharge Please follow-up with your faculty support coordinator within 1 to 2 weeks after discharge Please follow-up with your general surgeon Dr. Spann within 1 to 2 weeks after discharge Please follow-up with vascular surgeon within 1 to 2 weeks after discharge to follow-up on your peripheral artery disease. Please follow-up with hospice physician for pain management. Recommend to continue amiodarone 200 and Eliquis 2.5 mg twice daily for A-fib. Recommend to continue sevelamer 800 mg 3 times daily with meals. If there is any active bleeding recommend to stop Eliquis immediately. Recommend to follow up outpatient for work up with punch biopsy for possibly calciphylaxis Please limit your fluid intake to around 2 L/day and maintain a low-sodium diet Please come back to the ER if symptoms persist or worsen Follow up with Dr. Spann for formal BKA. Call [phone] for appointment. Follow up at [facility], [address] [place] [address]. Call [phone] for appointment Wound care: 1) Left ankle disarticulation with surgicel (hemostat) applied 04/07: Monitor for bleeding. Do not remove surgicel, it will fall off on it's own. Apply dry dressing with fluffs, abd pad, kerlix roll and nick wrap over surgicel daily and PRN for falling off. Once surigcel has falling off - apply NS wet/dry dressing daily Keep elevated with 2 pillow and knee straight 2) Dry necrosis to left and right hand, right lateral thigh and BKA stump: betadine swab daily 3) Gluteal cleft MASD/shear: cleanse with wound cleanser, pat dry, apply skin prep and cover with allyven dressing daily. Side to side repositioning Problem list: #Right ulnar artery occlusion #Right upper extremity multiple digit necrosis #Left lower extremity gangrene/tissue necrosis s/p guillotine amputation distal #Peripheral Vascular disease, severe #A-fib with RVR, rate controlled #MAT #SVT #HFpEF (EF 50-55% on 2024). #ESRD (HD on ) #Macrocytic anemia. #Thrombocytopenia, improving #Transaminitis, resolved #Hepatomegaly. #Hx of DM2. #Acute Hypoxic resp failure in the setting of Left base PNA, improving #Stenotrophomonas maltophilia pneumonia, resolved . #Respiratory acidosis, resolved. #Septic shock, resolved. #Troponinemia, resolved #Hematemesis, resolved #HAGMA, resolved. #Lactic acidosis, resolved. #Staph Hemolyticus bacteremia, resolved (finished course of vancomycin 03/23- 04/05) #CLABSI, resolved #Hyperbilirubinemia, resolved Case disclosed with Attending Dr. Josephine Lee PGY1 Disclaimer: This note was dictated by speech recognition and even though it was carefully revised there may still be minor errors in fly finisher due to voice recognition software. Status at Discharge Overall status at discharge: patient is progressing back to baseline Time Spent with Patient Time attestation: Total time spent providing and/or coordinating discharge services:>35 min Time spent: Greater than 30 minutes Exam Vital Signs Temp Pulse Resp BP Pulse Ox O2 Del Method O2 Flow Rate 97.6 F 78 14 118/81 92 L Nasal Cannula 3 04/15/25 11:00 04/15/25 13:25 04/15/25 13:25 04/15/25 11:24 04/15/25 13:25 04/15/25 11:00 04/15/25 13:25 FiO2 50 04/13/25 08:00 Narrative Exam General: AO x 3, no acute distress Eyes: Pupils reactive to light, EOMI, vision intact Ears: No visible ear discharge Nose: No visible nasal discharge. Mouth/Throat: Moist mucous membranes, no redness, no lesions. Neck: Neck supple, no cervical lymphadenopathy. Lungs: Clear CHRISTIANO Cardio: Normal S1/S2, irregular, no murmurs, no JVD Abdomen: Soft, non-tender, no palpable masses, peristalsis present, no guarding or rebound Extremities: Right BKA, left distal leg amputation above ankle level with with clean dressing, right upper extremity digits show necrotic changes at the tips and extending proximally, swelling CHRISTIANO LE upto low abdomen Skin: Right upper extremity digits show necrotic changes at the tips Neuro: No focal neurological deficits, motor and sensory intact Discharge Plan Plan Patient Disposition: Home w/HOSPICE Disposition Comment: ICU Care Plan Goals: Please follow-up with your primary care physician within 1 week upon discharge Please follow-up with cardiology, Dr. Villalobos, within 1-2 week upon discharge Please follow-up with your faculty support coordinator within 1 to 2 weeks after discharge Please follow-up with your general surgeon Dr. Spann within 1 to 2 weeks after discharge Please follow-up with vascular surgeon within 1 to 2 weeks after discharge to follow-up on your peripheral artery disease. Please follow-up with hospice physician for pain management. Recommend to continue amiodarone 200 and Eliquis 2.5 mg twice daily for A-fib. Recommend to continue sevelamer 800 mg 3 times daily with meals. If there is any active bleeding recommend to stop Eliquis immediately. Recommend to follow up outpatient for work up with punch biopsy for possibly calciphylaxis Please limit your fluid intake to around 2 L/day and maintain a low-sodium diet Please come back to the ER if symptoms persist or worsen Follow up with Dr. Spann for formal BKA. Call [phone] for appointment. Follow up at [facility], [address] [place] [address]. Call [phone] for appointment Wound care: 1) Left ankle disarticulation with surgicel (hemostat) applied 04/07: Monitor for bleeding. Do not remove surgicel, it will fall off on it's own. Apply dry dressing with fluffs, abd pad, kerlix roll and nick wrap over surgicel daily and PRN for falling off. Once surigcel has falling off - apply NS wet/dry dressing daily Keep elevated with 2 pillow and knee straight 2) Dry necrosis to left and right hand, right lateral thigh and BKA stump: betadine swab daily 3) Gluteal cleft MASD/shear: cleanse with wound cleanser, pat dry, apply skin prep and cover with allyven dressing daily. Side to side repositioning Prescriptions/Referrals Prescriptions/Med Rec: New amiodarone 200 mg Tablet 200 mg PO BID 30 Days Qty: 60 0RF sevelamer carbonate 800 mg Tablet 800 mg PO TIDWM 30 Days Qty: 90 0RF Eliquis 2.5 mg Tablet 2.5 mg PO BID 30 Days Qty: 60 0RF Referrals: Margarita Carolina PA-C [Primary Care Provider] - Keanu Spann MD [Physician] - Yanci Villalobos MD [Physician] - Patient/Caregiver Discharge Instructions Other Discharge Activity Instructions:: Please follow-up with your primary care physician within 1 week upon discharge Please follow-up with cardiology, Dr. Villalobos, within 1-2 week upon discharge Please follow-up with your faculty support coordinator within 1 to 2 weeks after discharge Please follow-up with your general surgeon Dr. Spann within 1 to 2 weeks after discharge Please follow-up with vascular surgeon within 1 to 2 weeks after discharge to follow-up on your peripheral artery disease. Please follow-up with hospice physician for pain management. Recommend to continue amiodarone 200 and Eliquis 2.5 mg twice daily for A-fib. Recommend to continue sevelamer 800 mg 3 times daily with meals. If there is any active bleeding recommend to stop Eliquis immediately. Recommend to follow up outpatient for work up with punch biopsy for possibly calciphylaxis Please limit your fluid intake to around 2 L/day and maintain a low-sodium diet Please come back to the ER if symptoms persist or worsen Follow up with Dr. Spann for formal BKA. Call [phone] for appointment. Wound care: 1) Left ankle disarticulation with surgicel (hemostat) applied 04/07: Monitor for bleeding. Do not remove surgicel, it will fall off on it's own. Apply dry dressing with fluffs, abd pad, kerlix roll and nick wrap over surgicel daily and PRN for falling off. Once surigcel has falling off - apply NS wet/dry dressing daily Keep elevated with 2 pillow and knee straight 2) Dry necrosis to left and right hand, right lateral thigh and BKA stump: betadine swab daily 3) Gluteal cleft MASD/shear: cleanse with wound cleanser, pat dry, apply skin prep and cover with allyven dressing daily. Side to side repositioning Education Materials: AFL/Afib, Arterial Occlusion Acute Print Language: Zambian Stand Alone Forms: Jenny Award Info., Patient Portal Info Letter Discharge Order Discharge Orders: Discharge (Routine); Ordered 04/15/25 Ordered By: Lito Lee Quality Discharge Quality Measures VTE prophylaxis Attestestation Attestation I attest that I was physically present for the evaluation, physical examination, lab and imaging review of the patient with the residents. I discussed the case with the residents and agree with the findings and plans of care as documented above. At bedside today, patient is states she is feeling well and does not have new complaints. Pain has been well-controlled with analgesics, saturating well on 3 L nasal cannula. Lab results have been stable, hemoglobin 8.1 today. Underwent hemodialysis with nephrology. Had dressing change with Dr Spann. Patient stable for discharge to home on home hospice. Recommended to follow-up with PCP, cardiology, nephrology, general surgery, vascular surgery, physical therapy, wound care. Continue hemodialysis as scheduled. Patient will be discharged on Eliquis, counseled on being careful not to have injury or fall. Severo Burton MD
--- NOTE | 2025-04-15 17:22 | ESPR_ITS ---
<Statement entered by Yanci Villalobos MD - 04/16/25 09:00> I personally evaluated examined the patient with PGY 2 Dr. Wilkinson agree with the treatment and recommendation patient has atrial fibrillation rate controlled well can be transferred and discharged to nursing home facility Documentation for date of: 04/15/25 Subjective Subjective Interval history: Patient was seen and examined at the bedside. No acute overnight events. He does not have new complaints other than right hand pain. His hemoglobin is stable and today at 8.1. Eliquis was resumed at 2.5 mg twice daily. Patient is set for discharge, pending placement. Discontinue aspirin, can discharge on Eliquis 2.5 mg twice daily. Exam Vital Signs Temp Pulse Resp BP Pulse Ox O2 Del Method O2 Flow Rate 97.6 F 78 14 118/81 92 L Nasal Cannula 3 04/15/25 11:00 04/15/25 13:25 04/15/25 13:25 04/15/25 11:24 04/15/25 13:25 04/15/25 11:00 04/15/25 13:25 FiO2 50 04/13/25 08:00 Narrative Exam Gen: Well-developed male. HEENT: NCAT, PERRLA, EOMI, MMM, anicteric conjunctivae. CVS: normal S1 and S2. RRR. No M/R/G. Resp: CTA B/L. No rhonchi, rales, crackles or wheezing. Abd: soft, non-tender, non-distended. BS+ in all 4 quadrants. MSK: S/p right BKA, stump appears necrotic, right thigh has blister. S/p left BKA, clean dressing. Dry gangrene over right 2nd and 3rd digits. Tip of left second digit appears necrotic. Neuro: CN II-XII grossly intact. Alert and oriented x3. Psych: appropriate mood and affect. Objective Labs 04/15/25 05:50 04/15/25 05:50 Labs: Laboratory Results - last 24 hr 04/15/25 05:50 WBC 9.3 RBC 2.62 L Hgb 8.1 L Hct 25.8 L MCV 99 MCH 30.9 MCHC 31.4 RDW Std Deviation 68.3 H Plt Count 110 L Neut % (Auto) 73 Lymph % (Auto) 10 Shannon % (Auto) 9 Eos % (Auto) 6 Baso % (Auto) 1 Neut # (Auto) 6.8 Lymph # (Auto) 0.9 L Shannon # (Auto) 0.8 Eos # (Auto) 0.6 H Baso # (Auto) 0.1 Immature Gran # (Auto) 0.13 H Absolute Nucleated RBC 0.00 Immature Gran % 1 H Nucleated RBC % 0 Sodium 133 L Potassium 4.6 Chloride 95 L Carbon Dioxide 27.3 Anion Gap 11 BUN 44 H Creatinine 5.4 H* D Estim Creat Clear Calc 22.3 L eGFR 12 L* BUN/Creatinine Ratio 8 L Glucose 80 Calculated Osmolality 276 Calcium 8.4 Corrected Calcium 8.9 Phosphorus 7.4 H Magnesium 2.3 Total Bilirubin 0.3 AST 14 ALT < 7 L Alkaline Phosphatase 88 Total Protein 6.5 Albumin 3.4 L Globulin 3.1 Albumin/Globulin Ratio 1.1 L ABG Interpretation ABG results: 03/14/25 03/14/25 03/14/25 14:44 16:44 18:53 ABG pH 7.03 L* 7.04 L* 7.10 L* ABG pCO2 43 50 H 46 ABG pO2 86 128 H D 57 L* D ABG HCO3 11 L 13 L 14 L ABG O2 Saturation 91 97 78 L ABG Base Excess -19 L -17 L -15 L VBG pH VBG pCO2 VBG pO2 VBG Base Excess 03/14/25 03/15/25 03/15/25 21:20 05:07 12:28 ABG pH 7.21 L D 7.41 D ABG pCO2 32 D 31 L ABG pO2 116 H D 74 L D ABG HCO3 13 L 20 ABG O2 Saturation 97 95 ABG Base Excess -14 L -4 L VBG pH 7.43 VBG pCO2 34 L VBG pO2 37 VBG Base Excess -1 03/16/25 03/16/25 03/16/25 04:51 11:48 19:30 ABG pH 7.46 H 7.22 L D 7.38 D ABG pCO2 29 L 66 H D 48 D ABG pO2 78 L 79 L 236 H D ABG HCO3 21 27 H 29 H ABG O2 Saturation 96 91 100 H ABG Base Excess -2 -2 3 VBG pH VBG pCO2 VBG pO2 VBG Base Excess 03/17/25 03/18/25 03/19/25 04:53 09:27 04:46 ABG pH 7.38 7.35 ABG pCO2 49 H 48 ABG pO2 78 L D 92 ABG HCO3 29 H 26 ABG O2 Saturation 95 98 ABG Base Excess 3 0 VBG pH 7.34 VBG pCO2 54 D VBG pO2 34 VBG Base Excess 2 03/24/25 04/01/25 04/01/25 22:00 04:53 15:50 ABG pH 7.33 L 7.23 L ABG pCO2 48 62 H ABG pO2 233 H 102 ABG HCO3 25 26 ABG O2 Saturation 101 H 98 ABG Base Excess -1 -2 VBG pH 7.24 L VBG pCO2 57 H VBG pO2 51 VBG Base Excess -3 04/01/25 04/02/25 04/03/25 18:40 04:45 05:17 ABG pH 7.24 L 7.24 L 7.31 L ABG pCO2 61 H 59 H 56 H ABG pO2 207 H D 203 H 123 H D ABG HCO3 26 25 28 H ABG O2 Saturation 101 H 101 H 100 H ABG Base Excess -2 -3 2 VBG pH VBG pCO2 VBG pO2 VBG Base Excess 04/04/25 05:02 ABG pH 7.33 L ABG pCO2 51 H ABG pO2 114 H ABG HCO3 27 H ABG O2 Saturation 100 H ABG Base Excess 1 VBG pH VBG pCO2 VBG pO2 VBG Base Excess Quality Measures Quality Measures VTE prophylaxis Assessment & Plan Assessment Current Active Medications: Generic Name Dose Route Start Last Admin Trade Name Freq PRN Reason Stop Dose Admin Acetaminophen 650 mg 04/13/25 09:13 Acetaminophen 325 Mg Tablet PO 04/19/25 11:34 Q6HR PRN pain 1-3 OR Fever >100.4 Protocol Hydrocodone Bitart/Acetaminophen 1 tab 04/12/25 07:25 04/15/25 11:23 Hydrocodone/Apap 10/325 Tab PO 04/16/25 12:05 1 tab Q6HR PRN Administration PAIN SCALE 4-10(Mod-Sev Amiodarone HCl 200 mg 04/05/25 09:00 04/15/25 11:24 Amiodarone Hcl 200 Mg Tablet PO 05/05/25 08:59 200 mg BID MONTSERRAT Administration Apixaban 2.5 mg 04/08/25 10:15 04/12/25 20:53 Apixaban 2.5 Mg Tablet PO 05/08/25 10:14 2.5 mg BID MONTSERRAT Administration Artificial Tears 0 drop 04/04/25 21:37 04/04/25 21:53 Artificial Tears 225 Drop/15 Ml Btl BOTH EYES 05/04/25 21:36 2 drop PRN PRN Administration TO KEEP EYES MOIST Aspirin 81 mg 04/12/25 14:00 04/12/25 13:54 Aspirin Ec 81 Mg Tabec PO 05/12/25 13:59 81 mg QDAY MON[place]ERRAT Administration Heparin Sodium (Porcine) 3,800 unit 04/13/25 16:48 04/15/25 09:53 Heparin Sod Inj 1000 Unit/Ml Vial 10 Ml INDWELLCAT 04/27/25 16:47 3,800 unit PRN PRN Administration DIALYSIS Albumin Human 25 gm in 100 mls @ 100 mls/hr 04/01/25 07:37 04/15/25 08:49 Albuminar-25 Ivpb IV 100 mls/hr PRN PRN Administration DIALYSIS Levalbuterol HCl 0.31 mg 03/28/25 10:24 03/31/25 00:37 Levalbuterol Rt 0.31 Mg/3 Ml Nebu INH 04/19/25 12:14 0.31 mg Q6HRRT PRN Administration Wheezing Morphine Sulfate 45 mg 04/14/25 14:00 04/15/25 14:32 Morphine Sulf 15 Mg Tabcr PO 04/19/25 13:59 45 mg TID MONTSERRAT Administration Protocol Ondansetron HCl 4 mg 04/15/25 12:56 04/15/25 13:07 Ondansetron Inj 2 Mg/Ml Inj 2 Ml IVP 05/15/25 12:55 4 mg Q8HR PRN Administration NAUSEA OR VOMITING Protocol Pantoprazole Sodium 40 mg 04/08/25 09:00 04/15/25 11:23 Pantoprazole 40 Mg Tablet PO 05/08/25 08:59 40 mg QDAY MON[place] Administration Pregabalin 50 mg 04/13/25 09:00 04/15/25 14:32 Pregabalin 50 Mg Capsule PO 05/13/25 08:59 50 mg TID MONTSERRAT Administration Sevelamer Carbonate 800 mg 04/03/25 12:00 04/15/25 11:22 Sevelamer Carbonate 800 Mg Tablet PO 05/03/25 11:59 800 mg TIDWM MON[place]ERRAT Administration Sodium Chloride 3 ml 03/31/25 06:26 Sodium Cl Rt Marjorie 3% 4 Ml Nebu (Non-Formulary) INH 04/16/25 18:59 Q6HRRT PRN To induce cough Zolpidem Tartrate 5 mg 04/10/25 21:00 04/14/25 20:56 Zolpidem 5 Mg Tablet PO 05/10/25 20:59 5 mg HS MONTSERRAT Administration Plan 49-year-old male with past medical history of DM2, hypertension, ESRD (HD ), HFpEF (EF 55% on 2021), and right BKA due to osteomyelitis was initially admitted to the ICU on 03/14/2025 for acute hypoxic respiratory failure, acute encephalopathy, and shock. He was subsequently extubated and downgraded to telemetry on 03/20/2025 for continuation of care. #Status post acute non-ST segment elevation myocardial infarction, NSTEMI possible type 2 troponin versus NSTEMI. #SVT episodes. #Afib, rate controlled. #HFpEF (EF 45-50%). Patient s/p intubation and pressor support in ICU for shock, distributive secondary to sepsis versus cardiogenic. Patient initially presented to ED in SVT and required shock x1. Troponin initially 1.856 uptrended to 7.899 peak. Patient was treated for pneumonia. Patient was able to wean off pressors, extubated, now downgraded to tele. CT LER showed diffuse stenosis on the arteries of the LLE, occlusions in almost all major arteries. Echo done on 03/16/2025 showed LV appears normal with EF 45-50%. Septal dyskinesis is seen, RV appears normal with RVSP 50 mmHg. Mildly dilated LA & RA Mild mitral regurgitation Mild-Moderate TR. 03/21, patient had 2 rapid response events for SVT in the 170-200s which self converted in minutes. 04/01 patient had 2 rapid response calls due to episodes of SVT, was started on amiodarone drip and subsequently underwent electrical cardioversion in ICU. Plan: - continue amiodarone 200 mg BID PO. - Continue Eliquis 2.5 mg BID. - Maintain K >4.0 and Mag >2.0. - Continue dialysis per nephrology. #Extensive atherosclerotic cardiovascular disease with bilateral femoral artery occlusions and distal trifurcation disease with gangrenous changes, ruled out. #Vasopressor-induced vasoconstriction and gangrene of B/L fingers, sequelae. #Left foot gangrene, s/p BKA. -Patient has history of right extremity BKA due to severe PAD. This admission after severe shock requiring pressor support patient subsequently developed ischemia of the right and left fingertips. Vascular surgeon stated that the patient is not a candidate at this time for revascularization, however stated that would discuss case with general surgeon. Likely upper extremity digits affected by vasopressor support in combination with severe PAD causing limb ischemia. Angiography showed Normal, nonobstructive epicardial coronary arteries. Mild left ventricular dysfunction, ejection fraction 50%. Right ulnarl artery totally occluded with excellent flow from the radial artery. Left lower extremity angiogram showed widely patent SFA and trifurcation with distal dorsalis pedis 100% occlusion. Right lower extremity angiogram also showed no significant obstructive lesions until trifurcation( amputated BKA).Discontinued on aspirin, plavix and statin after angiography. Plan: - Discontinue aspirin. Rest of conditions to continue current management per primary team: #Postop bleeding from left BKA, resolved. #Staph hemolyticus bacteremia, treated. #Septic shock, resolved. #Acute hypoxic respiratory failure. #Community-acquired pneumonia, Stenotrophomonas maltophilia. #ESRD (HD on ). #History of type 2 diabetes. #Respiratory acidosis, resolved. #HAGMA, resolved. #Lactic acidosis, resolved. #Hyperkalemia, resolved. #Shock liver, resolved. #Possible GI bleed. #Macrocytic anemia. #Thrombocytopenia. #Hematemesis, resolved. #Hypoglycemia, resolved. Discussed the patient with my attending Dr Villalobos. Minh Smith MD, PGY 2. Disclaimer: This note was dictated by speech recognition. Minor errors in fundraising sale representative may be present due to voice recognition software.
[2025-04-15] MEDS: ZOLPIDEM 5 MG TABLET PO (21:28)
[2025-04-16] VITALS (11 sets, daily range): BP systolic 69–137; BP diastolic 32–102; PULSE 54–115; RESP 9–20; TEMP 35.8–37; O2SAT 76–100; BMI 37.9
[2025-04-16] MEDS: MORPHINE SULF INJ 10 MG/ML VIAL 4 MG IVP (04:32)
[2025-04-16 05:11] LABS: Base Excess -1 (-3-3); HCO3 26 mEq/L (20-26); Inspired Oxygen, FIO2 100 %; O2 Saturation 101 % (91-98); PCO2 54 mmHg (32.0-48.0); PO2 462 mmHg (83-108); pH, Arterial 7.28 (7.35-7.45)
[2025-04-16 05:14] LABS: Allen Test Performed/OK; Puncture Site Right Radial
--- NOTE | 2025-04-16 06:02 | PC.NURSE ---
patient had low bp at 0400am vitals. patient was barely responsive diaphoretic. [employer] called, patient minimally responsive to sternal rub. Patient was giving narcan x1 and woke confused, shaking and was given 4 mg of morphine for withdrawal. Patient is on bipap with o2 sats 100%, on 50% fio2. patient has dc order today home with hospice.
--- NOTE | 2025-04-16 06:15 | PD.RESEVENT ---
Documentation for date of: 04/16/25 Event Note Event Note: Patient had rapid response around 4 AM due to change in mental status. Upon arrival, patient was obtunded and minimally responsive to sternal rub. At bedside he was obtunded, cool clammy skin, pupils constricted with poor light reflex, blood pressure 99/44, afebrile, HR 55, RR 9, saturating 76% on room air. Patient was recently started on morphine 45 mg p.o. TID about two days ago. Was old so given dose of Karenrica and Ambien. There was concern for respiratory depression in setting of sedation and morphine use. Therefore patient administered Narcan with resolution of symptoms seen few minutes thereafter. However patient was still confused, shaking, yawning, continuously fidgeting. Due to concern of immediate opioid withdrawal symptoms was given 4 mg IV morphine. ABG showed pH 7.28, pCO2 54. Patient was started on BiPAP with repeat ABGs pending.
[2025-04-16 08:47] LABS: Basophils % (Auto) 1 % (0-2.5); Eosinophils # (Auto) 0.1 Thou/mm3 (0.0-0.5); Eosinophils % (Auto) 1 % (0-10); Hematocrit 23.3 % (41.0-53.0); Immature Granulocytes % (Auto) 1 % (0-0); Immature Granulocytes Auto 0.09 Thou/mm3 (0.00-0.00); Lymphocytes # (Auto) 0.6 Thou/mm3 (1.0-4.8); Lymphocytes % (Auto) 7 % (10-50); Mean Corpuscular HGB Conc 31.8 g/dl (31.0-37.0); Mean Corpuscular Hemoglobin 31.5 pg (25.0-35.0); Mean Corpuscular Volume 99 fL (80-100); Monocytes # (Auto) 0.6 Thou/mm3 (0.0-0.8); Monocytes % (Auto) 7 % (0-12); Neutrophils # (Auto) 7.4 Thou/mm3 (1.8-7.7); Neutrophils % (Auto) 84 % (37-80); Nucleated Red Blood Cell % 0 /100 WBC (0); Platelet Count 98 Thou/mm3 (140-440); RDW Standard Deviation 68.3 fL (35.1-43.9); Red Blood Count 2.35 Miln/mm3 (4.50-5.90); White Blood Count 8.8 Thou/mm3 (3.8-10.6)
[2025-04-16 08:48] LABS: Base Excess, Venous 2 (-3-3); O2 Saturation, Venous 92 % (96-97); PCO2, Venous 61 mmHg (36-56); PO2, Venous 61 mmHg (15-58); pH, Venous 7.29 (7.33-7.66)
[2025-04-16 09:01] LABS: Hemoglobin 7.4 g/dL (13.5-16.0)
[2025-04-16 09:35] LABS: Alanine Aminotransferase 9 U/L (10-49); Albumin, Serum 3.1 gm/dL (3.5-5.0); Albumin/Globulin Ratio 1.1 (1.2-2.2); Alkaline Phosphatase 86 U/L (46-116); Anion Gap 10 (7-16); Aspartate Amino Transferase 16 U/L (0-34); BUN/Creatinine Ratio 10 Ratio (12-20); Bilirubin,Total 0.3 mg/dL (0.3-1.2); Blood Urea Nitrogen 48 mg/dL (9-23); Calcium (Corrected) 8.7 mg/dL (8.5-10.1); Carbon Dioxide 28.1 mMol/L (20.0-31.0); Chloride 99 mMol/L (98-107); Creatinine (Component) 4.8 mg/dL (0.6-1.3); Estimated Creatinine Clearance 25.1 mL/min (>60); Globulin 2.9 gm/dL (2.3-3.5); Glucose 89 mg/dL (74-106); Magnesium 2.1 mg/dL (1.6-2.6); Osmolality,Calculated 285 (275-295); Potassium 4.9 mMol/L (3.4-5.1); Sodium 137 mMol/L (136-145); eGFR 14 See Note
--- NOTE | 2025-04-16 10:07 | ESDS_ITS ---
Planned Discharge Date 04/16/25 DS: Providers Provider Date of admission: 03/14/25 17:31 Primary care physician: Margarita Carolina PA-C Admitting Provider: Yessi Putnam MD Attending Provider on Admission: Severo Burton MD Consults: 03/14/25 18:03 Consult to Nephrology Routine Comment: Consulting Provider: Héctor Pleitez 03/15/25 10:27 Consult to Cardiology Routine Comment: Consulting Provider: Yanci Villalobos 03/17/25 12:29 Referral Registered Dietitian Routine Comment: 03/17/25 18:05 Referral - Last Repairer Routine Service Needed for Transfer: Interventional Cardiology Addl Comments:: Patient needs peripheral angioplasty of L LE due to acute/chronic limb ischemia 03/20/25 17:51 Referral Physical Therapy Routine Comment: Physician Instructions: 03/23/25 10:02 Consult to Infectious Diseases Routine Comment: Consulting Provider: Mitchell Villegas 03/27/25 11:53 Referral Physical Therapy Routine Comment: Physician Instructions: 03/29/25 14:13 Referral Physical Therapy Stat Comment: Physician Instructions: 03/30/25 13:46 Consult to General Surgery Routine Comment: Consulting Provider: Keanu Spann 03/31/25 09:32 Consult to Orthopedic Routine Comment: Consulting Provider: Wolf Gonzalez 04/01/25 14:27 Consult to Infectious Diseases Stat Comment: DAPTOMYCIN Consulting Provider: Mitchell Villegas 04/05/25 12:56 Referral Physical Therapy Stat Comment: Physician Instructions: Instructions: Required for Ins Auth for SNF. 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 S/p left ankle disarticulation with Dr. Spann pending formal BKA. Pending tissue bx. Attending Provider on DC: Severo Burton MD Discharging Provider: Severo Burton MD DS: Diagnosis Problem List Completed Was Problem List Reviewed/Reconciled?: Yes Hospital Course Hospital Course Hospital course: 49-year-old male with past medical history of DM2, hypertension, ESRD (HD /), HFpEF (EF 55% on 2021), and right BKA due to osteomyelitis was admitted to the ICU on 03/14/2025 for acute hypoxic respiratory failure, acute encephalopathy, and shock. He was extubated and downgraded to telemetry on 03/20/2025. Patient had a prolonged hospital stay and he was in the ICU twice throughout his hospital stay. Initially patient came in with shock and was admitted by the ICU for total of 7 days where he had a complicated course given that he was on vasopressors and his left lower extremity became necrotic likely in the setting of chronic peripheral vascular disease and during this time he also had to be shocked due to unstable cardiac arrhythmia. Patient developed lower extremity and upper extremity digits ischemia contacted vascular surgery for possible transfer. They stated that at this time patient was too unstable to transfer at that the patient was not a candidate for revascularization therefore he would not have to have workup outpatient. Patient also had NSTEMI with elevated troponins, but given his initial poor prognosis cardiology stated to treat with heparin for now and that they would consider cardiac catheterization in the future, which was eventually done on 03/29/2025 and did not show any CAD and at the same time angiogram of upper extremities and lower extremity was done and showed occlusion of right ulnar artery. Patient was successfully extubated and he was alert and oriented therefore he was downgraded to the medical floors on 03/20/2025. Patient had remained stable throughout the hospital stay after he was downgraded from the ICU until 04/01/2025 where he had an episode of A-fib with RVR and he was hemodynamically stable after he was shocked again and he required to be upgraded to the ICU for vasopressors at this time. This time he was shortly after downgraded back to the medical floors on 04/03/2025. During his stay in the ICU patient did undergo left lower extremity amputation on 04/01/2025 and since then patient did not have any further arrhythmias or episodes of hypotension. Patient did have a lot of pain which was not being controlled with any pregabalin or gabapentin and was only being able to be controlled with Dilaudid. Patient was switched to p.o. morphine extended release with he stated that he significantly improved his pain and manage his pain to a bearable state. At this time patient was stable enough to start looking for placement, but after multiple days of pending insurance authorization patient did not get authorization for SNF placement. At this time patient and family decided to go home with hospice as they would get the care he needed at home. At the time of discharge patient was stable enough to be discharged home with hospice. 04/16/2025: Patient was seen and examined at bedside this morning. Patient overnight got a rapid response called due to being obtunded and was given Narcan x 1 with helped improve patient's mental status, but then later patient had opiate withdrawal and was given morphine. This morning VBG looked okay and patient was alert oriented x 3. At this time patient is stable enough to be discharged home with hospice as it was delayed yesterday due to hospice unable to deliver equipment to his house. Discharge plan: Please follow-up with your primary care physician within 1 week upon discharge Please follow-up with cardiology, Dr. Villalobos, within 1-2 week upon discharge Please follow-up with your microsoft dynamics developer within 1 to 2 weeks after discharge Please follow-up with your general surgeon Dr. Spann within 1 to 2 weeks after discharge Please follow-up with vascular surgeon within 1 to 2 weeks after discharge to follow-up on your peripheral artery disease. Please follow-up with hospice physician for pain management. Recommend Morphine SR PO 15 mg TID for now unless otherwise stated by hospice physician Recommend to continue pregabalin 50mg TID Recommend to continue amiodarone 200 and Eliquis 2.5 mg twice daily for A-fib. Recommend to continue sevelamer 800 mg 3 times daily with meals. If there is any active bleeding recommend to stop Eliquis immediately. Recommend to follow up outpatient for work up with punch biopsy for possibly calciphylaxis Recommend scrotal elevation and to continue with hemodialysis with fluid removal for scrotal swelling Please limit your fluid intake to around 2 L/day and maintain a low-sodium diet Please come back to the ER if symptoms persist or worsen Follow up with Dr. Spann for formal BKA. Call [phone] for appointment. Wound care: 1) Left ankle disarticulation with surgicel (hemostat) applied 04/07: Monitor for bleeding. Do not remove surgicel, it will fall off on it's own. Apply dry dr essing with fluffs, abd pad, kerlix roll and nick wrap over surgicel daily and PRN for falling off. Once surigcel has falling off - apply NS wet/dry dressing daily Keep elevated with 2 pillow and knee straight 2) Dry necrosis to left and right hand, right lateral thigh and BKA stump: betadine swab daily 3) Gluteal cleft MASD/shear: cleanse with wound cleanser, pat dry, apply skin prep and cover with allyven dressing daily. Side to side repositioning Problem list: #Right ulnar artery occlusion #Right upper extremity multiple digit necrosis #Left lower extremity gangrene/tissue necrosis s/p guillotine amputation distal #Peripheral Vascular disease, severe #A-fib with RVR, rate controlled #MAT #SVT #HFpEF (EF 50-55% on 2024). #ESRD (HD on ) #Macrocytic anemia. #Thrombocytopenia, improving #Transaminitis, resolved #Hepatomegaly. #Hx of DM2. #Acute Hypoxic resp failure in the setting of Left base PNA, improving #Stenotrophomonas maltophilia pneumonia, resolved . #Respiratory acidosis, resolved. #Septic shock, resolved. #Troponinemia, resolved #Hematemesis, resolved #HAGMA, resolved. #Lactic acidosis, resolved. #Staph Hemolyticus bacteremia, resolved (finished course of vancomycin 03/23- 04/05) #CLABSI, resolved #Hyperbilirubinemia, resolved Case disclosed with Attending Dr. Josephine Lee PGY1 Disclaimer: This note was dictated by speech recognition and even though it was carefully revised there may still be minor errors in mortgage protection specialist due to voice recognition software. Status at Discharge Overall status at discharge: patient is progressing back to baseline Time Spent with Patient Time attestation: Total time spent providing and/or coordinating discharge services:>35 min Time spent: Greater than 30 minutes Home Health Home Health Referral Orders: General: AO x 3, no acute distress Eyes: Pupils reactive to light, EOMI, vision intact Ears: No visible ear discharge Nose: No visible nasal discharge. Mouth/Throat: Moist mucous membranes, no redness, no lesions. Neck: Neck supple, no cervical lymphadenopathy. Lungs: Clear CHRISTIANO Cardio: Normal S1/S2, irregular, no murmurs, no JVD Abdomen: Soft, non-tender, no palpable masses, peristalsis present, no guarding or rebound Extremities: Right BKA, left distal leg amputation above ankle level with with clean dressing, right upper extremity digits show necrotic changes at the tips and extending proximally, swelling CHRISTIANO LE upto low abdomen : scrotal swelling Skin: Right upper extremity digits show necrotic changes at the tips Neuro: No focal neurological deficits, motor and sensory intact Exam Vital Signs Temp Pulse Resp BP Pulse Ox O2 Del Method O2 Flow Rate 97.0 F 83 19 101/55 L 89 L BiPAP 3 04/16/25 07:50 04/16/25 09:33 04/16/25 09:33 04/16/25 07:50 04/16/25 09:33 04/16/25 07:50 04/16/25 09:33 FiO2 40 04/16/25 06:42 Discharge Plan Plan Patient Disposition: Home w/HOSPICE Disposition Comment: ICU Care Plan Goals: Please follow-up with your primary care physician within 1 week upon discharge Please follow-up with cardiology, Dr. Villalobos, within 1-2 week upon discharge Please follow-up with your microsoft dynamics developer within 1 to 2 weeks after discharge Please follow-up with your general surgeon Dr. Spann within 1 to 2 weeks after discharge Please follow-up with vascular surgeon within 1 to 2 weeks after discharge to follow-up on your peripheral artery disease. Please follow-up with hospice physician for pain management. Recommend Morphine SR PO 15 mg TID for now unless otherwise stated by hospice physician Recommend to continue pregabalin 50mg TID Recommend to continue amiodarone 200 and Eliquis 2.5 mg twice daily for A-fib. Recommend to continue sevelamer 800 mg 3 times daily with meals. If there is any active bleeding recommend to stop Eliquis immediately. Recommend to follow up outpatient for work up with punch biopsy for possibly calciphylaxis Recommend scrotal elevation and to continue with hemodialysis with fluid removal for scrotal swelling Please limit your fluid intake to around 2 L/day and maintain a low-sodium diet Please come back to the ER if symptoms persist or worsen Follow up with Dr. Spann for formal BKA. Call [phone] for appointment. Wound care: 1) Left ankle disarticulation with surgicel (hemostat) applied 04/07: Monitor for bleeding. Do not remove surgicel, it will fall off on it's own. Apply dry dressing with fluffs, abd pad, kerlix roll and nick wrap over surgicel daily and PRN for falling off. Once surigcel has falling off - apply NS wet/dry dressing daily Keep elevated with 2 pillow and knee straight 2) Dry necrosis to left and right hand, right lateral thigh and BKA stump: betadine swab daily 3) Gluteal cleft MASD/shear: cleanse with wound cleanser, pat dry, apply skin prep and cover with allyven dressing daily. Side to side repositioning Prescriptions/Referrals Prescriptions/Med Rec: New amiodarone 200 mg Tablet 200 mg PO BID 30 Days Qty: 60 0RF sevelamer carbonate 800 mg Tablet 800 mg PO TIDWM 30 Days Qty: 90 0RF Eliquis 2.5 mg Tablet 2.5 mg PO BID 30 Days Qty: 60 0RF Referrals: Margarita Carolina PA-C [Primary Care Provider] - Keanu Spann MD [Physician] - Yanci Villalobos MD [Physician] - Patient/Caregiver Discharge Instructions Other Discharge Activity Instructions:: Please follow-up with your primary care physician within 1 week upon discharge Please follow-up with cardiology, Dr. Villalobos, within 1-2 week upon discharge Please follow-up with your microsoft dynamics developer within 1 to 2 weeks after discharge Please follow-up with your general surgeon Dr. Spann within 1 to 2 weeks after discharge Please follow-up with vascular surgeon within 1 to 2 weeks after discharge to follow-up on your peripheral artery disease. Please follow-up with hospice physician for pain management. Recommend Morphine SR PO 15 mg TID for now unless otherwise stated by hospice physician Recommend to continue pregabalin 50mg TID Recommend to continue amiodarone 200 and Eliquis 2.5 mg twice daily for A-fib. Recommend to continue sevelamer 800 mg 3 times daily with meals. If there is any active bleeding recommend to stop Eliquis immediately. Recommend to follow up outpatient for work up with punch biopsy for possibly calciphylaxis Recommend scrotal elevation and to continue with hemodialysis with fluid removal for scrotal swelling Please limit your fluid intake to around 2 L/day and maintain a low-sodium diet Please come back to the ER if symptoms persist or worsen Follow up with Dr. Spann for formal BKA. Call [phone] for appointment. Wound care: 1) Left ankle disarticulation with surgicel (hemostat) applied 04/07: Monitor for bleeding. Do not remove surgicel, it will fall off on it's own. Apply dry dressing with fluffs, abd pad, kerlix roll and nick wrap over surgicel daily and PRN for falling off. Once surigcel has falling off - apply NS wet/dry dressing daily Keep elevated with 2 pillow and knee straight 2) Dry necrosis to left and right hand, right lateral thigh and BKA stump: betadine swab daily 3) Gluteal cleft MASD/shear: cleanse with wound cleanser, pat dry, apply skin prep and cover with allyven dressing daily. Side to side repositioning Education Materials: AFL/Afib, Arterial Occlusion Acute Print Language: Chinese Stand Alone Forms: Jenny Award Info., Patient Portal Info Letter Discharge Order Discharge Orders: Discharge (Routine); Ordered 04/16/25 Ordered By: Lito Lee Quality Discharge Quality Measures VTE prophylaxis Attestestation MD Attestation I attest that I was physically present for the evaluation, physical examination, lab and imaging review of the patient with the residents. I discussed the case with the residents and agree with the findings and plans of care as documented above. Severo Burton MD
[2025-04-16] MEDS: SEVELAMER CARBONATE 800 MG TABLET PO ×2 (10:54→12:10)
[2025-04-16] MEDS: AMIODARONE HCL 200 MG TABLET PO (10:54)
[2025-04-16] MEDS: Morphine Sulf 15 MG TABCR PO (10:55)
[2025-04-16] MEDS: PANTOPRAZOLE 40 MG TABLET PO (10:55)
--- NOTE | 2025-04-16 11:07 | PC.SS ---
KERON spoke to Evy with [facility] and informed SS that equipment will be delivered by 12. Isidra requested for pt to be at house by 1300. SS set up transport with [facility] for 1300. SS contacted Sophia, pts to inform her of plan, she is in agreement.
--- NOTE | 2025-04-16 11:52 | ESPR_ITS ---
<Statement entered by Yanci Villalobos MD - 04/17/25 12:13> I personally examined the patient evaluated the patient with resident physician patient is doing much better stable to be discharged no further issues with bleeding we will hold off anticoagulation Evaluated patient with resident physician agree with the treatment plan recommendation as documented by Dr. Wilkinson PGY 2 Documentation for date of: 04/16/25 Subjective Subjective Interval history: Patient was seen and examined at bedside. Overnight patient had episode of respiratory depression and was given Narcan with significant improvement. Primary team is working on optimization of his pain control prior to discharge. Continue current management and monitor patient. Exam Vital Signs Temp Pulse Resp BP Pulse Ox O2 Del Method O2 Flow Rate 97.0 F 85 19 105/60 89 L BiPAP 3 04/16/25 07:50 04/16/25 10:54 04/16/25 09:33 04/16/25 10:54 04/16/25 09:33 04/16/25 07:50 04/16/25 09:33 FiO2 40 04/16/25 06:42 Narrative Exam Gen: Well-developed male. HEENT: NCAT, PERRLA, EOMI, MMM, anicteric conjunctivae. CVS: normal S1 and S2. RRR. No M/R/G. Resp: CTA B/L. No rhonchi, rales, crackles or wheezing. Abd: soft, non-tender, non-distended. BS+ in all 4 quadrants. MSK: S/p right BKA, stump appears necrotic, right thigh has blister. S/p left BKA, clean dressing. Dry gangrene over right 2nd and 3rd digits. Tip of left second digit appears necrotic. Neuro: CN II-XII grossly intact. Alert and oriented x3. Psych: appropriate mood and affect. Objective Labs 04/16/25 08:15 04/16/25 08:15 Labs: Laboratory Results - last 24 hr 04/16/25 04/16/25 04/16/25 04:28 04:50 08:15 WBC 8.8 RBC 2.35 L Hgb 7.4 L Hct 23.3 L MCV 99 MCH 31.5 MCHC 31.8 RDW Std Deviation 68.3 H Plt Count 98 L Neut % (Auto) 84 H Lymph % (Auto) 7 L [place] % (Auto) 7 Eos % (Auto) 1 Baso % (Auto) 1 Neut # (Auto) 7.4 Lymph # (Auto) 0.6 L [place] # (Auto) 0.6 Eos # (Auto) 0.1 Baso # (Auto) 0.0 Immature Gran # (Auto) 0.09 H Absolute Nucleated RBC 0.00 Immature Gran % 1 H Nucleated RBC % 0 Puncture Site Cancelled Right Radial ABG pH Cancelled 7.28 L ABG pCO2 Cancelled 54 H ABG pO2 Cancelled 462 H ABG HCO3 Cancelled 26 ABG O2 Saturation Cancelled 101 H ABG Base Excess Cancelled -1 VBG pH 7.29 L VBG pCO2 61 H VBG pO2 61 H VBG O2 Sat (Guy) 92 L VBG Base Excess 2 Oxygen Liter Flow Cancelled FiO2 Cancelled 100 Sodium 137 Potassium 4.9 Chloride 99 Carbon Dioxide 28.1 Anion Gap 10 BUN 48 H Creatinine 4.8 H* D Estim Creat Clear Calc 25.1 L eGFR 14 L* BUN/Creatinine Ratio 10 L Glucose 89 Calculated Osmolality 285 Calcium 8.0 L Corrected Calcium 8.7 Magnesium 2.1 Total Bilirubin 0.3 AST 16 ALT 9 L Alkaline Phosphatase 86 Total Protein 6.0 Albumin 3.1 L Globulin 2.9 Albumin/Globulin Ratio 1.1 L ABG Interpretation ABG results: 03/14/25 03/14/25 03/14/25 14:44 16:44 18:53 ABG pH 7.03 L* 7.04 L* 7.10 L* ABG pCO2 43 50 H 46 ABG pO2 86 128 H D 57 L* D ABG HCO3 11 L 13 L 14 L ABG O2 Saturation 91 97 78 L ABG Base Excess -19 L -17 L -15 L VBG pH VBG pCO2 VBG pO2 VBG Base Excess 03/14/25 03/15/25 03/15/25 21:20 05:07 12:28 ABG pH 7.21 L D 7.41 D ABG pCO2 32 D 31 L ABG pO2 116 H D 74 L D ABG HCO3 13 L 20 ABG O2 Saturation 97 95 ABG Base Excess -14 L -4 L VBG pH 7.43 VBG pCO2 34 L VBG pO2 37 VBG Base Excess -1 03/16/25 03/16/25 03/16/25 04:51 11:48 19:30 ABG pH 7.46 H 7.22 L D 7.38 D ABG pCO2 29 L 66 H D 48 D ABG pO2 78 L 79 L 236 H D ABG HCO3 21 27 H 29 H ABG O2 Saturation 96 91 100 H ABG Base Excess -2 -2 3 VBG pH VBG pCO2 VBG pO2 VBG Base Excess 03/17/25 03/18/25 03/19/25 04:53 09:27 04:46 ABG pH 7.38 7.35 ABG pCO2 49 H 48 ABG pO2 78 L D 92 ABG HCO3 29 H 26 ABG O2 Saturation 95 98 ABG Base Excess 3 0 VBG pH 7.34 VBG pCO2 54 D VBG pO2 34 VBG Base Excess 2 03/24/25 04/01/25 04/01/25 22:00 04:53 15:50 ABG pH 7.33 L 7.23 L ABG pCO2 48 62 H ABG pO2 233 H 102 ABG HCO3 25 26 ABG O2 Saturation 101 H 98 ABG Base Excess -1 -2 VBG pH 7.24 L VBG pCO2 57 H VBG pO2 51 VBG Base Excess -3 04/01/25 04/02/25 04/03/25 18:40 04:45 05:17 ABG pH 7.24 L 7.24 L 7.31 L ABG pCO2 61 H 59 H 56 H ABG pO2 207 H D 203 H 123 H D ABG HCO3 26 25 28 H ABG O2 Saturation 101 H 101 H 100 H ABG Base Excess -2 -3 2 VBG pH VBG pCO2 VBG pO2 VBG Base Excess 04/04/25 04/16/25 04/16/25 05:02 04:28 04:50 ABG pH 7.33 L Cancelled 7.28 L ABG pCO2 51 H Cancelled 54 H ABG pO2 114 H Cancelled 462 H ABG HCO3 27 H Cancelled 26 ABG O2 Saturation 100 H Cancelled 101 H ABG Base Excess 1 Cancelled -1 VBG pH VBG pCO2 VBG pO2 VBG Base Excess 04/16/25 08:15 ABG pH ABG pCO2 ABG pO2 ABG HCO3 ABG O2 Saturation ABG Base Excess VBG pH 7.29 L VBG pCO2 61 H VBG pO2 61 H VBG Base Excess 2 Quality Measures Quality Measures VTE prophylaxis Assessment & Plan Assessment Current Active Medications: Generic Name Dose Route Start Last Admin Trade Name Freq PRN Reason Stop Dose Admin Acetaminophen 650 mg 04/13/25 09:13 Acetaminophen 325 Mg Tablet PO 04/19/25 11:34 Q6HR PRN pain 1-3 OR Fever >100.4 Protocol Hydrocodone Bitart/Acetaminophen 1 tab 04/12/25 07:25 04/15/25 17:30 Hydrocodone/Apap 10/325 Tab PO 04/16/25 12:05 1 tab Q6HR PRN Administration PAIN SCALE 4-10(Mod-Sev Amiodarone HCl 200 mg 04/05/25 09:00 04/16/25 10:54 Amiodarone Hcl 200 Mg Tablet PO 05/05/25 08:59 200 mg BID [place] Administration Apixaban 2.5 mg 04/08/25 10:15 04/12/25 20:53 Apixaban 2.5 Mg Tablet PO 05/08/25 10:14 2.5 mg BID [place] Administration Artificial Tears 0 drop 04/04/25 21:37 04/04/25 21:53 Artificial Tears 225 Drop/15 Ml Btl BOTH EYES 05/04/25 21:36 2 drop PRN PRN Administration TO KEEP EYES MOIST Aspirin 81 mg 04/12/25 14:00 04/12/25 13:54 Aspirin Ec 81 Mg Tabec PO 05/12/25 13:59 81 mg QDAY [place] Administration Heparin Sodium (Porcine) 3,800 unit 04/13/25 16:48 04/15/25 09:53 Heparin Sod Inj 1000 Unit/Ml Vial 10 Ml INDWELLCAT 04/27/25 16:47 3,800 unit PRN PRN Administration DIALYSIS Albumin Human 25 gm in 100 mls @ 100 mls/hr 04/01/25 07:37 04/15/25 08:49 Albuminar-25 Ivpb IV 100 mls/hr PRN PRN Administration DIALYSIS Levalbuterol HCl 0.31 mg 03/28/25 10:24 03/31/25 00:37 Levalbuterol Rt 0.31 Mg/3 Ml Nebu INH 04/19/25 12:14 0.31 mg Q6HRRT PRN Administration Wheezing Morphine Sulfate 15 mg 04/16/25 14:00 Morphine Sulf 15 Mg Tabcr PO 04/21/25 13:59 TID [place] Protocol Ondansetron HCl 4 mg 04/15/25 12:56 04/15/25 13:07 Ondansetron Inj 2 Mg/Ml Inj 2 Ml IVP 05/15/25 12:55 4 mg Q8HR PRN Administration NAUSEA OR VOMITING Protocol Pantoprazole Sodium 40 mg 04/08/25 09:00 04/16/25 10:55 Pantoprazole 40 Mg Tablet PO 05/08/25 08:59 40 mg QDAY [place] Administration Pregabalin 50 mg 04/13/25 09:00 04/16/25 05:11 Pregabalin 50 Mg Capsule PO 05/13/25 08:59 Not Given TID [place] Sevelamer Carbonate 800 mg 04/03/25 12:00 04/16/25 10:54 Sevelamer Carbonate 800 Mg Tablet PO 05/03/25 11:59 800 mg TIDWM [place] Administration Sodium Chloride 3 ml 03/31/25 06:26 Sodium Cl Rt Marjorie 3% 4 Ml Nebu (Non-Formulary) INH 04/16/25 18:59 Q6HRRT PRN To induce cough Plan 49-year-old male with past medical history of DM2, hypertension, ESRD (HD ), HFpEF (EF 55% on 2021), and right BKA due to osteomyelitis was initially admitted to the ICU on 03/14/2025 for acute hypoxic respiratory failure, acute encephalopathy, and shock. He was subsequently extubated and downgraded to telemetry on 03/20/2025 for continuation of care. #Status post acute non-ST segment elevation myocardial infarction, NSTEMI possible type 2 troponin versus NSTEMI. #SVT episodes. #Afib, rate controlled. #HFpEF (EF 45-50%). Patient s/p intubation and pressor support in ICU for shock, distributive secondary to sepsis versus cardiogenic. Patient initially presented to ED in SVT and required shock x1. Troponin initially 1.856 uptrended to 7.899 peak. Patient was treated for pneumonia. Patient was able to wean off pressors, extubated, now downgraded to tele. CT LER showed diffuse stenosis on the arteries of the LLE, occlusions in almost all major arteries. Echo done on 03/16/2025 showed LV appears normal with EF 45-50%. Septal dyskinesis is seen, RV appears normal with RVSP 50 mmHg. Mildly dilated LA & RA Mild mitral regurgitation Mild-Moderate TR. 03/21, patient had 2 rapid response events for SVT in the 170-200s which self converted in minutes. 04/01 patient had 2 rapid response calls due to episodes of SVT, was started on amiodarone drip and subsequently underwent electrical cardioversion in ICU. Plan: - continue amiodarone 200 mg BID PO. - Continue Eliquis 2.5 mg BID. - Maintain K >4.0 and Mag >2.0. - Continue dialysis per nephrology. #Extensive atherosclerotic cardiovascular disease with bilateral femoral artery occlusions and distal trifurcation disease with gangrenous changes, ruled out. #Vasopressor-induced vasoconstriction and gangrene of B/L fingers, sequelae. #Left foot gangrene, s/p BKA. -Patient has history of right extremity BKA due to severe PAD. This admission after severe shock requiring pressor support patient subsequently developed ischemia of the right and left fingertips. Vascular surgeon stated that the patient is not a candidate at this time for revascularization, however stated that would discuss case with general surgeon. Likely upper extremity digits affected by vasopressor support in combination with severe PAD causing limb ischemia. Angiography showed Normal, nonobstructive epicardial coronary arteries. Mild left ventricular dysfunction, ejection fraction 50%. Right ulnarl artery totally occluded with excellent flow from the radial artery. Left lower extremity angiogram showed widely patent SFA and trifurcation with distal dorsalis pedis 100% occlusion. Right lower extremity angiogram also showed no significant obstructive lesions until trifurcation( amputated BKA).Discontinued on aspirin, plavix and statin after angiography. Plan: - Discontinue aspirin. Rest of conditions to continue current management per primary team: #Postop bleeding from left BKA, resolved. #Staph hemolyticus bacteremia, treated. #Septic shock, resolved. #Acute hypoxic respiratory failure. #Community-acquired pneumonia, Stenotrophomonas maltophilia. #ESRD (HD on ). #History of type 2 diabetes. #Respiratory acidosis, resolved. #HAGMA, resolved. #Lactic acidosis, resolved. #Hyperkalemia, resolved. #Shock liver, resolved. #Possible GI bleed. #Macrocytic anemia. #Thrombocytopenia. #Hematemesis, resolved. #Hypoglycemia, resolved. Discussed the patient with my attending Dr Villalobos. Minh Smith MD, PGY 2. Disclaimer: This note was dictated by speech recognition. Minor errors in stripe matcher may be present due to voice recognition software.
== END 2025-04-16 13:10 | disposition hospice, home (50) | DRG 853 ==
LOC: SERX 17:01 → SERHOLD 17:46 → S2SX 19:24 → S2NX 03-22 09:59 → S2SX 04-01 13:52 → S2NX 04-05 08:01 → S2SX 04-05 10:10 → S2NX 04-05 10:10 → S2SX 04-05 10:11
PROVIDERS: Internal Medicine; Internal Medicine Cardiovascular Disease; Internal Medicine Infectious Disease; Internal Medicine Nephrology; Radiology Diagnostic Radiology; Student in an Organized Health Care Education/Training Program; Surgery; Admitting Provider Internal Medicine; Emergency Provider Family Medicine; PCP Physician Assistant; Visit Provider Student in an Organized Health Care Education/Training Program
PROC: 0Y6N0Z0 Detachment at Left Foot, Complete, Open Approach (ICD-10-PCS; CPT 27880; principal; 2025-04-01 14:30)
DX: A41.2 Sepsis due to unspecified staphylococcus (principal); A48.0 Gas gangrene; T80.211A Bloodstream infection due to central venous catheter, initial encounter; D65 Disseminated intravascular coagulation [defibrination syndrome]; J96.01 Acute respiratory failure with hypoxia; N18.6 End stage renal disease; I21.A1 Myocardial infarction type 2; I50.43 Acute on chronic combined systolic (congestive) and diastolic (congestive) heart failure; J15.69 Pneumonia due to other Gram-negative bacteria; R65.21 Severe sepsis with septic shock; K72.00 Acute and subacute hepatic failure without coma; G93.41 Metabolic encephalopathy; R57.0 Cardiogenic shock; I13.2 Hypertensive heart and chronic kidney disease with heart failure and with stage 5 chronic kidney disease, or end stage renal disease; R57.9 Shock, unspecified; K92.0 Hematemesis; L03.90 Cellulitis, unspecified; D62 Acute posthemorrhagic anemia; E11.52 Type 2 diabetes mellitus with diabetic peripheral angiopathy with gangrene; E87.29 Other acidosis; F11.23 Opioid dependence with withdrawal; I42.0 Dilated cardiomyopathy; N17.9 Acute kidney failure, unspecified; M86.9 Osteomyelitis, unspecified; I70.261 Atherosclerosis of native arteries of extremities with gangrene, right leg; E11.22 Type 2 diabetes mellitus with diabetic chronic kidney disease; Z99.2 Dependence on renal dialysis; Z89.511 Acquired absence of right leg below knee; E87.5 Hyperkalemia; E11.649 Type 2 diabetes mellitus with hypoglycemia without coma; D53.9 Nutritional anemia, unspecified; E83.51 Hypocalcemia; R74.01 Elevation of levels of liver transaminase levels; F12.10 Cannabis abuse, uncomplicated; F15.10 Other stimulant abuse, uncomplicated; D63.1 Anemia in chronic kidney disease; E11.69 Type 2 diabetes mellitus with other specified complication; E83.39 Other disorders of phosphorus metabolism; E86.1 Hypovolemia; E87.6 Hypokalemia; F17.200 Nicotine dependence, unspecified, uncomplicated; G47.00 Insomnia, unspecified; G93.89 Other specified disorders of brain; I25.10 Atherosclerotic heart disease of native coronary artery without angina pectoris; I25.2 Old myocardial infarction; I48.91 Unspecified atrial fibrillation; I70.202 Unspecified atherosclerosis of native arteries of extremities, left leg; Z53.9 Procedure and treatment not carried out, unspecified reason; Z66 Do not resuscitate; Z79.01 Long term (current) use of anticoagulants; Y84.8 Other medical procedures as the cause of abnormal reaction of the patient, or of later complication, without mention of misadventure at the time of the procedure; Z79.02 Long term (current) use of antithrombotics/antiplatelets; Z79.82 Long term (current) use of aspirin; Z89.512 Acquired absence of left leg below knee; Z79.899 Other long term (current) drug therapy; R16.0 Hepatomegaly, not elsewhere classified
CPT/HCPCS: 36415; 36600; 71045; 75635; 76700; 76870; 76937; 77001; 80053; 80061; 80069; 80074; 80202; 80307; 81001; 82306; 82550; 82652; 82803; 83036; 83605; 83735; 83880; 83970; 84100; 84145; 84146; 84443; 84484; 85007; 85014; 85018; 85025; 85027; 85379; 85384; 85610; 85730; 86850; 86900; 86901; 86923; 86927; 86965; 87040; 87077; 87081; 87086; 87186; 87205; 87400; 87811; 93005; 93306; 93971; 94002; 94003; 94640; 94660; 94667; 96365; 96367; 96374; 97162; 99291; 99292; A4216; A4217; A4649; C1750; C1751; C1894; J0153; J0171; J0283; J0456; J0461; J0612; J0613; J0696; J0872; J1100; J1171; J1642; J1643; J1644; J1815; J1938; J1956; J2060; J2250; J2270; J2310; J2371; J2405; J2470; J2543; J2597; J2598; J2704; J2760; J2795; J2919; J2997; J3010; J3370; J3475; J3480; J3490; J7050; J7120; P9012; P9016; P9035; P9047; Q4081; Q9967; A9270